=== PATIENT | female | born 1960 | race Caucasian/White ===

== ENCOUNTER 2016-10-06 15:48 | Observation (INO) | payer OTHER ==
[~2016-10-06] VITALS: Ht 167.6 cm; Wt 69.0 kg
[~2016-10-06 15:48] MED LIST: ALBU1NEB10 INH; BNT20 PO; DIGO0.122 PO; METO1TAB55 PO; NF1317 PO; PREN1CAP7 PO
[2016-10-06] MEDS ORDERED: SODIUM CHLORIDE 0.9% 1000ML 1,000 ML IV STA ×2 (15:55)
[2016-10-06] MEDS ORDERED: ONDANSETRON INJ 2 MG/ML 2 ML VIAL IV STA ×2 (15:55→17:26)
[2016-10-06] MEDS ORDERED: MoRPHine SULFATE 4 MG/ML 1 ML CARP\\VIAL IV PRN (16:00)
[2016-10-06] MEDS ORDERED: PANTOprazole INJ 40 MG in SYRINGE 0 ML IV ONE (16:00)
--- NOTE | 2016-10-06 16:14 | EMERGENCY ROOM VISIT NOTE ---
History Report prepared by [place]: Cadence Parra Under the Supervision of: Dr. Trcae Wesley D.O. 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 The patient states that she had a procedure this morning to have a port placed. The patient states that she was nervous for the procedure and initially associated her nausea with nerves. She states that then started dry heaving and has had 15-20 episodes of dry heaving today. The patient states that she then started experiencing abdominal pain and back pain. The patient states that todays symptoms feel similar to her past episodes of gastroparesis. She states her time she had gastroparesis was about 1 month ago. She denies any fever, chest pain, SOB, leg swelling or pain, or any sick family at home. 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 Review of Systems See HPI for pertinent positives & negatives. A total of 10 systems reviewed and were otherwise negative. Past Medical & Surgical Medical Problems: (1) Abdominal pain (2) Anemia, iron deficiency (3) Anemia, iron deficiency (4) Anxiety (5) Anxiety State Nos (6) Asthma (7) Chronic Obstructive Asthma, Nos (8) COPD (chronic obstructive pulmonary disease) (9) Depression (10) Diarrhea (11) Diverticulosis (12) Esophagitis Nos (13) Frequent PVCs (14) Gastroparesis (15) GERD (gastroesophageal reflux disease) (16) Hyperlipidemia Nec/Nos (17) Hypothyroidism (18) Hypothyroidism Nos (19) Iron Defic Anemia Nos (20) Mitral regurgitation (21) MRSA bacteremia (22) Nausea (23) Neuropathy (24) Pemphigus vulgaris (25) Pernicious anemia (26) Pernicious Anemia (27) Premature atrial contractions (28) Tobacco abuse Surgical Problems: (1) H/O colonoscopy (2) H/O esophagogastroduodenoscopy (3) H/O oophorectomy (4) H/O: hysterectomy (5) History of bladder surgery (6) S/P hysterectomy (7) S/P laparoscopic sleeve gastrectomy (8) S/P partial gastrectomy (9) S/P repair of paraesophageal hernia (10) S/P repair of paraesophageal hernia (11) S/P tonsillectomy and adenoidectomy (12) S/P tonsillectomy and adenoidectomy Family History Diabetes mellitus MOTHER SISTER FH: aneurysm FH: cancer FH: heart disease FATHER MOTHER Hypertension BROTHER Kidney disease Social History Smoking Status: Former Smoker Smokeless Tobacco Use: Yes Alcohol Use: occasionally Drug Use: none Marital Status: single Housing Status: lives alone Occupation Status: disabled Current/Historical Medications Scheduled Dexlansoprazole (Dexilant), 30 MG PO DAILY Digoxin (Lanoxin), 0.125 MG PO DAILY Escitalopram (Lexapro), 10 MG PO DAILY Fluticasone Prop/Salmeterol (Advair Diskus 250-50 Mcg/Dose), 1 PUFF INH BID Fosaprepitant Dimeglumine (Emend), 55 ML IV MONTHLY Levothyroxine Sodium (Levothyroxine Sodium), 75 MCG PO DAILY Metoclopramide (Reglan), 10 MG PO ACHS Mv & Min W/Fe Fumarat ( 1), 1 CAP PO DAILY Ranitidine Hcl (Zantac), 300 MG PO BID [Clindamycin Iv], 900 MG IV TODAY Scheduled PRN Albuterol Sulf (Albuterol Sulfate 0.083% For Inh), 3 ML INH Q4 PRN for Wheezing Albuterol Sulfate (Proair Hfa), 2 PUFFS IN QID PRN for SOB/Wheezing Aluminum Hydroxide-Mag Trisil (Gaviscon), 2 CAP PO TID PRN for Dyspepsia Clonazepam (Klonopin), 0.5 MG PO TID PRN for Anxiety/Agitation Dicyclomine HCl (Dicyclomine HCl), 10 MG PO BID PRN for pain Ondansetron Hcl (Zofran), 4 MG PO Q6H PRN for Nausea Oxycodone/Acetaminophen 5MG/325MG (Percocet 5MG/325MG), 2 TABLETS PO Q6H PRN for Pain Prochlorperazine Maleate (Compazine), 10 MG PO Q6H PRN for Nausea or Vomiting Allergies Coded Allergies: Amoxicillin (Verified Adverse Reaction, Intermediate, yeast infection, ) NSAIDs (Verified Adverse Reaction, Mild, indegestion, 08/23/16) Rofecoxib (Verified Adverse Reaction, Mild, indigestion, 08/23/16) Scopolamine (Verified Adverse Reaction, Mild, rash from patch, 08/23/16) Physical Exam Vital Signs Date Time Temp Pulse Resp B/P Pulse Ox O2 Delivery O2 Flow Rate FiO2 10/06/16 19:54 64 18 151/94 98 Room Air 10/06/16 18:01 69 157/98 98 Room Air 10/06/16 16:22 59 10/06/16 16:02 36.9 62 22 169/108 98 Room Air Physical Exam GENERAL: Patient is awake, alert, somewhat anxious appearing. EYES: The conjunctivae are clear. The pupils are round and reactive. EARS, NOSE, MOUTH AND THROAT: The nose is without any evidence of any deformity. Mucous membranes are moist tongue is midline NECK: The neck is nontender and supple. RESPIRATORY: Normal respiratory effort is noted there is no evidence of wheezing rhonchi or rales CARDIOVASCULAR: Regular rate and rhythm noted there no murmurs rubs or gallops normal S1 normal S2 GASTROINTESTINAL: The abdomen is soft and nondistended. There is diffuse tenderness to palpation but no guarding or rigidity. MUSCULOSKELETAL/EXTREMITIES: There is no evidence of gross deformity full range of motion is noted in the hips and shoulders SKIN: There is no obvious evidence of any rash. There are no petechiae, pallor or cyanosis noted. There is a recent port placement in the upper right chest wall, no bleeding or swelling was appreciated. NEUROLOGIC: Patient is awake alert and oriented x3. Medical Decision & Procedures ER Provider Diagnostic Interpretation: X-ray results as stated below per interpretation by me and the radiologist. PA CHEST WITH ABDOMINAL SERIES CLINICAL HISTORY: Generalized abdominal pain. FINDINGS: A PA chest radiograph is compared to study dated 08/23/2016. Correlation is made with chest CT dated 06/20/2012. A right internal jugular central venous infusion port is new from previous. The tip of the catheter projects at the level of the thoracic inlet. The cardiomediastinal silhouette is top normal for projection. There is mild atherosclerotic calcification of the thoracic aorta. Mild elevation of the right hemidiaphragm and right basilar atelectasis is unchanged, as is chronic interstitial thickening. No airspace consolidation or large pleural effusion is identified. No pneumothorax is seen. The skeletal structures are osteopenic. The bony thorax is grossly intact. Supine and erect abdominal radiograph are compared to study dated 06/27/2016 and correlated with abdominal CT dated 11/26/2015. Postoperative changes are again seen at the gastroesophageal junction. There are also cholecystectomy clips in the right upper quadrant. There is a nonobstructed abdominal bowel gas pattern. No intraperitoneal free air is seen. There is no radiographic evidence of nephrolithiasis. Numerous calcified phleboliths are seen in the pelvis. The lumbosacral spine and bony pelvis appear intact. IMPRESSION: 1. No acute cardiopulmonary abnormality. 2. A right internal jugular central venous infusion port is new from previous. 3. Nonobstructed abdominal bowel gas pattern. 4. Postoperative findings involving the stomach are unchanged from previous. Electronically signed by: Bayron Tillman M.D. 10/06/2016 5:38 PM Dictated Date/Time: 10/06/2016 5:35 PM Laboratory Results Test 10/06/16 16:17 10/06/16 17:53 Immature Granulocyte % (Auto) 0.2 % White Blood Count 8.78 K/uL (4.8-10.8) Red Blood Count 4.33 M/uL (4.2-5.4) Hemoglobin 12.7 g/dL (12.0-16.0) Hematocrit 37.0 % (37-47) Mean Corpuscular Volume 85.5 fL (80-100) Mean Corpuscular Hemoglobin 29.3 pg (25-34) Mean Corpuscular Hemoglobin Concent 34.3 g/dl (32-36) Platelet Count 224 K/uL (130-400) Mean Platelet Volume 9.9 fL (7.4-10.4) Neutrophils (%) (Auto) 84.1 % Lymphocytes (%) (Auto) 11.4 % Monocytes (%) (Auto) 4.1 % Eosinophils (%) (Auto) 0.0 % Basophils (%) (Auto) 0.2 % Neutrophils # (Auto) 7.38 K/uL (1.4-6.5) Lymphocytes # (Auto) 1.00 K/uL (1.2-3.4) Monocytes # (Auto) 0.36 K/uL (0.11-0.59) Eosinophils # (Auto) 0.00 K/uL (0-0.5) Basophils # (Auto) 0.02 K/uL (0-0.2) Immature Granulocyte # (Auto) 0.02 K/uL (0.00-0.02) Prothrombin Time 10.3 SECONDS (9.0-12.0) Prothromb Time International Ratio 1.0 (0.9-1.1) Activated Partial Thromboplast Time 23.5 SECONDS (21.0-31.0) Partial Thromboplastin Ratio 0.9 Total Bilirubin 0.5 mg/dl (0.2-1) Direct Bilirubin 0.1 mg/dl (0-0.2) Aspartate Amino Transf (AST/SGOT) 19 U/L (15-37) Alanine Aminotransferase (ALT/SGPT) 16 U/L (12-78) Alkaline Phosphatase 92 U/L (45-117) Total Creatine Kinase 86 U/L (26-192) Creatine Kinase MB 0.7 ng/ml (0.5-3.6) Creatine Kinase MB Ratio 0.8 (0-3.0) Troponin I < 0.015 ng/ml (0-0.045) Total Protein 7.0 gm/dl (6.4-8.2) Albumin 3.8 gm/dl (3.4-5.0) Lipase 123 U/L (73-393) Urine Color YELLOW Urine Appearance CLEAR (CLEAR) Urine pH 8.0 (4.5-7.5) Urine Specific [place] 1.010 (1.000-1.030) Urine Protein NEG (NEG) Urine Glucose (UA) TRACE (NEG) Urine Ketones 1+ (NEG) Urine Occult Blood NEG (NEG) Urine Nitrite NEG (NEG) Urine Bilirubin NEG (NEG) Urine Urobilinogen NEG (NEG) Urine Leukocyte Esterase NEG (NEG) Laboratory results per my review. Medications Administered Medications (Trade) Dose Ordered Sig/Marisol Route Start Time Stop Time Status Last Admin Dose Admin Ondansetron HCl (Zofran Inj) 4 mg NOW STAT IV 10/06/16 15:55 10/06/16 15:57 DC 10/06/16 16:26 4 MG Morphine Sulfate 4 mg 4 mg Q15M PRN IV 10/06/16 16:00 10/06/16 22:29 DC 10/06/16 16:28 4 MG Sodium Chloride 1,000 ml @ 999 mls/hr Q1H1M STAT IV 10/06/16 15:55 10/06/16 16:55 DC 10/06/16 16:25 999 MLS/HR Sodium Chloride 1,000 ml @ 200 mls/hr Q5H STAT IV 10/06/16 15:55 10/06/16 20:54 DC 10/06/16 15:55 200 MLS/HR Pantoprazole Sodium/Syringe (Protonix Inj/ Syringe) 10 ml @ 5 mls/min NOW ONCE IV 10/06/16 16:00 10/06/16 16:01 DC 10/06/16 16:26 5 MLS/MIN Ondansetron HCl 4 mg 4 mg NOW STAT IV 10/06/16 17:26 10/06/16 17:28 DC 10/06/16 17:35 4 MG Promethazine HCl 25 mg/Sodium Chloride 51 ml @ 204 mls/hr NOW STAT IV 10/06/16 18:51 10/06/16 19:05 DC 10/06/16 19:03 204 MLS/HR Fosaprepitant/ Sodium Chloride (Emend Inj/Nss 150ml) 150 ml @ 300 mls/hr ONE ONCE IV 10/06/16 20:30 10/06/16 20:59 DC 10/06/16 20:51 300 MLS/HR ECG Indication: nausea Rate (beats per minute): 54 Rhythm: sinus bradycardia Findings: no ectopy, other (No acute ST segment abnormalities) Comparison ECG Date: August 23, 2016 Change: no significant change ED Course 1551: The patient was evaluated in room B9. A complete history and physical examination were performed. 1555: Ordered NSS 1,000 ml @ 200 mls/hr IV, NSS 1,000 ml @ 999 mls/hr IV, Zofran Inj 4 mg IV. 1600: Ordered Pantoprazole Sodium 40 mg/Syringe 10 ml @ 5 mls/min IV, Morphine Sulfate 4 mg IV. 1726: Ordered Zofran Inj 4 mg IV. 185: Ordered Promethazine HCl 25 mg/ Sodium Chloride 51 ml @ 204 mls/hr IV 2005: I reevaluated the patient and she states she is still having no relief of her symptoms. 2026: I discussed the case with Dr. Marya Og. He agreed to evaluate the patient for further management and care. 2030: Ordered Fosaprepitant 150 mg/ Sodium Chloride 150 ml @ 300 mls/hr IV. Medical Decision Differential diagnosis: Etiologies such as gastroenteritis, food borne illness, infections, appendicitis , diverticulitis, inflammatory bowel disease, obstruction, GI bleed, biliary pathology, as well as others were entertained. Nursing notes reviewed. Patient's previous electronic medical records reviewed. The patient is a 56-year-old female who has a history of chronic gastroparesis as well as nausea. She presented to the emergency Department with the onset of what she describes as her typical nausea and abdominal pain. The patient recently had a procedure to place a port in her right chest wall also she could receive medications for gastroparesis. The surgical site was well in appearance. There was no discharge redness or swelling. She did complain of some tenderness of this area especially because of all the nausea and dry heaving. The patient was treated with IV fluids and multiple antiemetics in the emergency department. She was reevaluated multiple times. I discussed the patient's laboratory and radiographic studies with her. Because of ongoing symptoms I discussed her case with the on-call [facility] hospitalist group. They have agreed to evaluate the patient in the emergency apartment for further management and disposition. Consults Time Called: 2019 Consulting Physician: Dr. Marya Og Returned Call: 2026 I discussed the case with Dr. Marya Og. He agreed to evaluate the patient for further management and care. Impression Primary Impression: Intractable nausea and vomiting Additional Impression: Gastroparesis Scribe Attestation The scribe's documentation has been prepared under my direction and personally reviewed by me in its entirety. I confirm that the note above accurately reflects all work, treatment, procedures, and medical decision making performed by me. Departure Information Dispostion Being Evaluated By Hospitalist Referrals Jaleel Coppola M.D. (PCP) Problem Qualifiers
[2016-10-06 16:25] LABS: BASO % 0.2 %; BASO ABS # 0.02 K/uL (0-0.2); COMPLETE YES; IG% 0.2 %; LYMPH % 11.4 %; MEAN CELL VOLUME 85.5 fL (80-100); MEAN CORPUSCULAR HEMOGLOBIN 29.3 pg (25-34); MEAN CORPUSCULAR HGB CONC 34.3 g/dl (32-36); MEAN PLATELET VOLUME 9.9 fL (7.4-10.4); MONO % 4.1 %; NEUT % 84.1 %; PLATELET COUNT 224 K/uL (130-400); RED BLOOD COUNT 4.33 M/uL (4.2-5.4); WHITE BLOOD COUNT 8.78 K/uL (4.8-10.8)
[2016-10-06 16:42] LABS: ALT/SGPT 16 U/L (12-78); BLOOD UREA NITROGEN 12 mg/dl (7-18); BUN/CREATININE RATIO 12.2 (10-20); CARBON DIOXIDE 23 mmol/L (21-32); CHLORIDE 105 mmol/L (98-107); CREATININE 0.99 mg/dl (0.60-1.20); GLUCOSE 124 mg/dl (70-99); PARTIAL THROMBOPLASTIN RATIO 0.9; POTASSIUM 3.8 mmol/L (3.5-5.1); PROTHROMBIN TIME (PATIENT) 10.3 SECONDS (9.0-12.0); SODIUM 141 mmol/L (136-145)
[2016-10-06 16:47] LABS: ALKALINE PHOSPHATASE 92 U/L (45-117); AST/SGOT 19 U/L (15-37); CKMB/CK RATIO 0.8 (0-3.0)
[2016-10-06] MEDS ORDERED: CLINDAMYCIN (16:48)
--- NOTE | 2016-10-06 17:40 | DIAGNOSTIC IMAGING REPORT ---
PA CHEST WITH ABDOMINAL SERIES CLINICAL HISTORY: Generalized abdominal pain. FINDINGS: A PA chest radiograph is compared to study dated 08/23/2016. Correlation is made with chest CT dated 06/20/2012. A right internal jugular central venous infusion port is new from previous. The tip of the catheter projects at the level of the thoracic inlet. The cardiomediastinal silhouette is top normal for projection. There is mild atherosclerotic calcification of the thoracic aorta. Mild elevation of the right hemidiaphragm and right basilar atelectasis is unchanged, as is chronic interstitial thickening. No airspace consolidation or large pleural effusion is identified. No pneumothorax is seen. The skeletal structures are osteopenic. The bony thorax is grossly intact. Supine and erect abdominal radiograph are compared to study dated 06/27/2016 and correlated with abdominal CT dated 11/26/2015. Postoperative changes are again seen at the gastroesophageal junction. There are also cholecystectomy clips in the right upper quadrant. There is a nonobstructed abdominal bowel gas pattern. No intraperitoneal free air is seen. There is no radiographic evidence of nephrolithiasis. Numerous calcified phleboliths are seen in the pelvis. The lumbosacral spine and bony pelvis appear intact. IMPRESSION: 1. No acute cardiopulmonary abnormality. 2. A right internal jugular central venous infusion port is new from previous. 3. Nonobstructed abdominal bowel gas pattern. 4. Postoperative findings involving the stomach are unchanged from previous. Electronically signed by: Bayron Tilmlan M.D. 10/06/2016 5:38 PM Dictated Date/Time: 10/06/2016 5:35 PM
[2016-10-06 18:10] LABS: URINE APPEARANCE CLEAR (CLEAR); URINE BILIRUBIN NEG (NEG); URINE COLOR YELLOW; URINE NITRITE NEG (NEG); UROBILINOGEN NEG (NEG)
[2016-10-06 18:18] LABS: MANUAL MICROSCOPIC REQUIRED? NO; REVIEW REQ? NO
[2016-10-06] MEDS ORDERED: PROMETHAZINE HCL INJ 25 MG in SODIUM CHLORIDE 0.9% 50ML 50 ML IV STA (18:51)
[2016-10-06] MEDS ORDERED: ALBU1AER9 IN (19:20)
[2016-10-06] MEDS ORDERED: FOSAPREPITANT DIMEGLUMINE INJ 150 MG in SODIUM CHLORIDE 0.9% 150ML 145 ML IV ONE (20:30)
[2016-10-06] MEDS ORDERED: ENOXAPARIN 40 MG/0.4 ML SYR SQ SCH (21:00)
[2016-10-06] MEDS ORDERED: ACETAMINOPHEN 325 MG TAB PO PRN (21:00)
[2016-10-06] MEDS ORDERED: POLYETHYLENE (MIRALAX) 17 GM PACK PO PRN (21:00)
[2016-10-06] MEDS ORDERED: MAGNESIUM HYDROXIDE SUSP 30 ML UDC PO PRN (21:00)
[2016-10-06] MEDS ORDERED: ALBUTEROL 0.083% NEBU SOLN 3 ML VIAL INH PRN (21:15)
[2016-10-06] MEDS ORDERED: IV FLUIDS COMPLETED PRN (21:15)
[2016-10-06] MEDS ORDERED: CLONAZEPAM 0.5 MG TAB PO PRN (21:15)
[2016-10-06] MEDS ORDERED: OXYCODONE/ACETAMINOPHEN 5-325 TAB PO PRN (21:15)
[2016-10-06] MEDS ORDERED: ALUM HYDROX/MAG TRISILICATE CHEW PO PRN (21:15)
[2016-10-06] MEDS ORDERED: ALBUTEROL HFA 8 GM INHALER INH PRN (21:15)
[2016-10-06] MEDS ORDERED: DICYCLOMINE HCL 10 MG CAP PO PRN (21:15)
--- NOTE | 2016-10-06 21:22 | History and Physical ---
History & Physical Date & Time of Service: Oct 06, 2016 at 21:07 Chief Complaint: Abd Pain Primary Care Physician: Jaleel Coppola M.D. History of Present Illness Source: patient, clinic records, hospital records Patient seen and examined. 56 year old female with PMHx of gastroparesis, dumping syndrome, COPD, depression and other problems listed below presents to the ED complaining of nausea x 1 day. Patient reports she woke up this morning with nausea. She states she then had a port placed for monthly Emend infusion. She states after the procedure her nausea continued and she started having dry heaving. She took her zofran at home but this did not alleviate the symptoms. She has associated epigastric abdominal pain with radiation to the back that she describes as a dull ache and rates as a 5/10. She states that these symptoms are similar to her previous gastroparesis flares. She denies fevers, chills, URI symptoms, chest pain, SOB, diarrhea, dysuria, calf pain and edema. In the ED VS are stable, CBC, PRP, LFTs, Lipase and UA are essentially unremarkable, KUB is negative for obstruction. She received zofran and phenegran with minimal relief. Emend is currently infusing. She will be observed for further workup and treatment. Past Medical/Surgical History Medical Problems: (1) Anemia, iron deficiency Status: Chronic (2) Anxiety Status: Chronic (3) Anxiety State Nos Status: Chronic (4) Asthma Status: Chronic (5) Chronic Obstructive Asthma, Nos Status: Chronic (6) COPD (chronic obstructive pulmonary disease) Status: Chronic (7) Depression Status: Chronic (8) Diverticulosis Status: Chronic (9) Esophagitis Nos Status: Chronic (10) Frequent PVCs Status: Chronic (11) Gastroparesis Status: Chronic (12) GERD (gastroesophageal reflux disease) Status: Chronic (13) Hyperlipidemia Nec/Nos Status: Chronic (14) Hypothyroidism Status: Chronic (15) Hypothyroidism Nos Status: Chronic (16) Iron Defic Anemia Nos Status: Chronic (17) Mitral regurgitation Permanent Comment: moderate per echo 09/21/15 Status: Chronic (18) MRSA bacteremia Status: Resolved (19) Neuropathy Status: Chronic (20) Pemphigus vulgaris Status: Chronic (21) Pernicious anemia Status: Chronic (22) Pernicious Anemia Status: Chronic (23) Premature atrial contractions Status: Chronic (24) Tobacco abuse Status: Chronic Surgical Problems: (1) H/O colonoscopy Permanent Comment: 08/14/2013- Moderate diverticulosis in the sigmoid colon, in the descending colon and in the ascending colon. Internal hemorrhoids. Normal mucosa in the entire examined colon. Biopsied. Status: Chronic (2) H/O esophagogastroduodenoscopy Permanent Comment: 04/22/2015- - Stretta treatment to distal esophagus / GE junction and cardia.Three surgical logan were found in the esophagus at the GE junction and removed. Surgical suture was also found at the GE junction without evidence of dehiscence. Grade B GERD / erosive esophagitis. Sleeve gastrectomy with a large-sized pouch, intact staple line, post-operative mucosal scar, and evidence f pyloroplasty. Small gastric polyp, likely hyperplastic vs fundic gland polyp. Small hiatus hernia. Status: Chronic (3) H/O oophorectomy Permanent Comment: left ovary Status: Chronic (4) H/O: hysterectomy Status: Resolved (5) History of bladder surgery Status: Chronic (6) S/P hysterectomy Status: Chronic (7) S/P laparoscopic sleeve gastrectomy Status: Chronic (8) S/P partial gastrectomy Status: Chronic (9) S/P repair of paraesophageal hernia Status: Chronic (10) S/P repair of paraesophageal hernia Permanent Comment: resulted in volvulus, required abdominal exploration Status: Chronic (11) S/P tonsillectomy and adenoidectomy Status: Resolved (12) S/P tonsillectomy and adenoidectomy Status: Chronic Family History Diabetes mellitus MOTHER SISTER FH: aneurysm FH: cancer FH: heart disease FATHER MOTHER Hypertension BROTHER Kidney disease Social History Smoking Status: Former Smoker Smokeless Tobacco Use: Yes Drug Use: none Marital Status: single Housing status: lives with family Occupational Status: disabled Immunizations History of Influenza Vaccine: Yes History of Tetanus Vaccine?: Unknown History of Pneumococcal: Unknown History of Hepatitis B Vaccine: Unknown Multi-Drug Resistant Organisms History of MDRO: Yes Type of MDRO: MRSA Allergies Coded Allergies: Amoxicillin (Verified Adverse Reaction, Intermediate, yeast infection, ) NSAIDs (Verified Adverse Reaction, Mild, indegestion, 08/23/16) Rofecoxib (Verified Adverse Reaction, Mild, indigestion, 08/23/16) Scopolamine (Verified Adverse Reaction, Mild, rash from patch, 08/23/16) Home Medications Scheduled Dexlansoprazole (Dexilant), 30 MG PO DAILY Digoxin (Lanoxin), 0.125 MG PO DAILY Escitalopram (Lexapro), 10 MG PO DAILY Fluticasone Prop/Salmeterol (Advair Diskus 250-50 Mcg/Dose), 1 PUFF INH BID Fosaprepitant Dimeglumine (Emend), 55 ML IV MONTHLY Levothyroxine Sodium (Levothyroxine Sodium), 75 MCG PO DAILY Metoclopramide (Reglan), 10 MG PO ACHS Mv & Min W/Fe Fumarat ( 1), 1 CAP PO DAILY Ranitidine Hcl (Zantac), 300 MG PO BID [Clindamycin Iv], 900 MG IV TODAY Scheduled PRN Albuterol Sulf (Albuterol Sulfate 0.083% For Inh), 3 ML INH Q4 PRN for Wheezing Albuterol Sulfate (Proair Hfa), 2 PUFFS IN QID PRN for SOB/Wheezing Aluminum Hydroxide-Mag Trisil (Gaviscon), 2 CAP PO TID PRN for Dyspepsia Clonazepam (Klonopin), 0.5 MG PO TID PRN for Anxiety/Agitation Dicyclomine HCl (Dicyclomine HCl), 10 MG PO BID PRN for pain Ondansetron Hcl (Zofran), 4 MG PO Q6H PRN for Nausea Oxycodone/Acetaminophen 5MG/325MG (Percocet 5MG/325MG), 2 TABLETS PO Q6H PRN for Pain Prochlorperazine Maleate (Compazine), 10 MG PO Q6H PRN for Nausea or Vomiting Review of Systems See above for pertinent positives & negatives. A total of 10 systems reviewed and were otherwise negative. Physical Exam Vital Signs Date Time Temp Pulse Resp B/P Pulse Ox O2 Delivery O2 Flow Rate FiO2 10/06/16 19:54 64 18 151/94 98 Room Air 10/06/16 18:01 69 157/98 98 Room Air 10/06/16 16:22 59 10/06/16 16:02 36.9 62 22 169/108 98 Room Air General Appearance: + pertinent finding (Chronically ill appearing 56 year old female lying in bed in NAD ) Head: normocephalic, atraumatic Eyes: PERRL, EOMI, sclerae normal ENT: hearing grossly normal, pharynx normal Neck: supple, no JVD, trachea midline Respiratory/Chest: chest non-tender, lungs clear, normal breath sounds, no respiratory distress, no accessory muscle use Cardiovascular: regular rate, rhythm, no edema, no gallop, no JVD, normal peripheral pulses, + systolic murmur Abdomen/GI: normal bowel sounds, non tender (no guarding, no rigidity ), soft, no organomegaly Back: normal inspection, no CVA tenderness, no muscle spasm Extremities/Musculoskelatal: no calf tenderness, normal capillary refill, no pedal edema Neurologic/Psych: alert, oriented x 3, + pertinent finding (no motor or sensory deficits noted on gross exam ) Skin: normal color, warm/dry, no rash Lymphatic: no adenopathy Diagnostics Laboratory Results Results Past 24 Hours Test 10/06/16 16:17 10/06/16 17:53 10/06/16 20:57 10/06/16 21:01 Range/Units White Blood Count 8.78 4.8-10.8 K/uL Red Blood Count 4.33 4.2-5.4 M/uL Hemoglobin 12.7 12.0-16.0 g/dL Hematocrit 37.0 37-47 % Mean Corpuscular Volume 85.5 80-100 fL Mean Corpuscular Hemoglobin 29.3 25-34 pg Mean Corpuscular Hemoglobin Concent 34.3 32-36 g/dl Platelet Count 224 130-400 K/uL Mean Platelet Volume 9.9 7.4-10.4 fL Neutrophils (%) (Auto) 84.1 % Lymphocytes (%) (Auto) 11.4 % Monocytes (%) (Auto) 4.1 % Eosinophils (%) (Auto) 0.0 % Basophils (%) (Auto) 0.2 % Neutrophils # (Auto) 7.38 1.4-6.5 K/uL Lymphocytes # (Auto) 1.00 1.2-3.4 K/uL Monocytes # (Auto) 0.36 0.11-0.59 K/uL Eosinophils # (Auto) 0.00 0-0.5 K/uL Basophils # (Auto) 0.02 0-0.2 K/uL RDW Standard Deviation 49.6 36.4-46.3 fL RDW Coefficient of Variation 15.7 11.5-14.5 % Immature Granulocyte % (Auto) 0.2 % Immature Granulocyte # (Auto) 0.02 0.00-0.02 K/uL Prothrombin Time 10.3 9.0-12.0 SECONDS Prothromb Time International Ratio 1.0 0.9-1.1 Activated Partial Thromboplast Time 23.5 21.0-31.0 SECONDS Partial Thromboplastin Ratio 0.9 Sodium Level 141 136-145 mmol/L Potassium Level 3.8 3.5-5.1 mmol/L Chloride Level 105 98-107 mmol/L Carbon Dioxide Level 23 21-32 mmol/L Anion Gap 13.0 3-11 mmol/L Blood Urea Nitrogen 12 7-18 mg/dl Creatinine 0.99 0.60-1.20 mg/dl Est Creatinine Clear Calc Drug Dose 56.9 ml/min Estimated GFR () 72.8 Estimated GFR (Non- 62.8 BUN/Creatinine Ratio 12.2 10-20 Random Glucose 124 70-99 mg/dl Calcium Level 9.0 8.5-10.1 mg/dl Total Bilirubin 0.5 0.2-1 mg/dl Direct Bilirubin 0.1 0-0.2 mg/dl Aspartate Amino Transf (AST/SGOT) 19 15-37 U/L Alanine Aminotransferase (ALT/SGPT) 16 12-78 U/L Alkaline Phosphatase 92 45-117 U/L Total Creatine Kinase 86 26-192 U/L Creatine Kinase MB 0.7 0.5-3.6 ng/ml Creatine Kinase MB Ratio 0.8 0-3.0 Troponin I < 0.015 0-0.045 ng/ml Total Protein 7.0 6.4-8.2 gm/dl Albumin 3.8 3.4-5.0 gm/dl Lipase 123 73-393 U/L Urine Color YELLOW Urine Appearance CLEAR CLEAR Urine pH 8.0 4.5-7.5 Urine Specific [place] 1.010 1.000-1.030 Urine Protein NEG NEG Urine Glucose (UA) TRACE NEG Urine Ketones 1+ NEG Urine Occult Blood NEG NEG Urine Nitrite NEG NEG Urine Bilirubin NEG NEG Urine Urobilinogen NEG NEG Urine Leukocyte Esterase NEG NEG Diagnostic Radiology KUB/CXR PEr radiologist read: IMPRESSION: 1. No acute cardiopulmonary abnormality. 2. A right internal jugular central venous infusion port is new from previous. 3. Nonobstructed abdominal bowel gas pattern. 4. Postoperative findings involving the stomach are unchanged from previous. EKG Sinus Bradycardia 54 BPM, QTc 421 Impression Assessment and Plan 56 year old female presents to the ED complaining of nausea, dry heaves. Has history of gastroparesis, dumping syndrome, IBS. INTRACTABLE NAUSEA, ABDOMINAL PAIN, DRY HEAVES- known gastroparesis, dumping syndrome -Observation in Med/Surg -had port placed today for monthly Emend infusion -workup in ED essentially negative, LFTs, lipase, UA unremarkable, no leukocytosis -received Zofran, Phenergan, with minimal relief -Emend infusion ordered -continue zofran, phenegran, if symptoms persist following emend infusion, consider IV Ativan, Benadryl and other antiemetics -continue outpatient Reglan, dicyclomine, compazine -continue PPI -Clear liquid diet, advance as tolerated -IVF hydration- discontinue when po intake improved -CBC, PRP, Mg daily -If symptoms persist consider GI consult, follows with Dr. Ridley -Patient states she is on Zantac 300mg BID as and outpatient - pharmacy called that this is over the max manufacture dose and could be contributing to some of the patient's symptoms. Zantac decreased to 150mg BID, tonight defer further changes to daytime attending. HYPOTHYROIDISM -continue Synthroid COPD -stable -continue home inhalers DEPRESSION -continue Lexapro, Klonopin TOBACCO ABUSE -Cessation counseling given -Nicotine patch ordered H/O PVCs/PACs -check digoxin level -continue Digoxin DVT PROPHYLAXIS: SCDs RE: port procedure today, if prolonged hospital course consider anticoagulation CODE STATUS: FULL CODE DISPO:observation pending further workup Patient seen in collaboration with Dr. Malhotra The Attending Addendum: The patient was seen and examined in ER H/O Gastroparesis secondary to Diabetes Has had Port to administer Amend to prevent Nausea and or Vomiting Ongoing Nausea and vomiting-not controlled with Usual medications Complains of some abdominal pain O/E Hemodynamically stable Chest-clear to auscultate bilaterally Heart-regular Abdomen-soft,mildly tender epigastrium Bowel sound present Extremities -negative for any edema Labs and Imaging studies were reviewed Agree with the assessment and plan. Dr Karla Malhotra VTE Prophylaxis VTE Risk Assessment Done? Y/N: Yes Risk Level: Moderate
[2016-10-06 22:30] VITALS: BP 156/92; PULSE 64; TEMP 36.7; O2SAT 96
[2016-10-06 22:31] VITALS: BP 156/92; PULSE 64; TEMP 36.7; O2SAT 96; Ht 167.6 cm; Wt 69.0 kg
[2016-10-06] MEDS: SODIUM CHLORIDE 0.9% 1000ML 1,000 ML IV SCH (23:10)
[2016-10-06] MEDS: ONDANSETRON INJ 2 MG/ML 2 ML VIAL IV PRN (23:35)
[2016-10-07 00:01] VITALS: BP 140/88; PULSE 65; TEMP 36.7; O2SAT 97
[2016-10-07] MEDS: PROCHLORPERAZINE MALEATE 10 MG TAB PO PRN ×2 (00:24→07:49)
[2016-10-07] MEDS: PROMETHAZINE HCL INJ 25 MG in SODIUM CHLORIDE 0.9% 50ML 50 ML IV PRN ×3 (01:46→18:34)
[2016-10-07] MEDS: METOCLOPRAMIDE HCL 10 MG TAB PO SCH ×4 (05:59→20:18)
[2016-10-07] MEDS: SODIUM CHLORIDE 0.9% 1000ML 1,000 ML IV SCH ×3 (06:00→20:20)
[2016-10-07] MEDS: ONDANSETRON INJ 2 MG/ML 2 ML VIAL IV PRN (07:24)
[2016-10-07 07:33] VITALS: BP 121/81; PULSE 64; TEMP 36.8; O2SAT 96
[2016-10-07] MEDS: ALUMINUM/MAGNESIUM/SIMETH (MAALOX MAX) 30 ML UDC PO PRN ×2 (07:47→23:24)
[2016-10-07] MEDS: PANTOprazole SOD 40 MG TAB PO SCH (07:48)
[2016-10-07] MEDS: RANITIDINE HCL 150 MG TAB PO SCH ×2 (07:48→20:18)
[2016-10-07] MEDS: NICOTINE 14 MG/24 HR TDSY TD SCH (07:51)
[2016-10-07] MEDS: FLUTICASONE/SALMETEROL 250/50 (ADVAIR) 14 PUFF/1 INHALER INH SCH ×2 (07:51→20:00)
[2016-10-07] MEDS: ESCITALOPRAM OXALATE 10 MG TAB PO SCH (08:00)
[2016-10-07] MEDS: PRENATAL VITAMIN TAB PO SCH (08:00)
[2016-10-07] MEDS: LEVOTHYROXINE 75 MCG TAB PO SCH (08:00)
[2016-10-07] MEDS ORDERED: RANITIDINE HCL 150 MG TAB PO SCH (09:00)
[2016-10-07 09:01] LABS: HEMATOCRIT 37.5 % (37-47); MEAN CELL VOLUME 85.8 fL (80-100); MEAN CORPUSCULAR HEMOGLOBIN 29.3 pg (25-34); MEAN CORPUSCULAR HGB CONC 34.1 g/dl (32-36); MEAN PLATELET VOLUME 10.1 fL (7.4-10.4); PLATELET COUNT 237 K/uL (130-400); RED BLOOD COUNT 4.37 M/uL (4.2-5.4); WHITE BLOOD COUNT 8.09 K/uL (4.8-10.8)
[2016-10-07 09:25] LABS: BUN/CREATININE RATIO 8.7 (10-20); CALCIUM 8.8 mg/dl (8.5-10.1); CREATININE 0.82 mg/dl (0.60-1.20); MAGNESIUM 1.9 mg/dl (1.8-2.4); POTASSIUM 3.6 mmol/L (3.5-5.1)
[2016-10-07 15:45] VITALS: BP 155/97; PULSE 66; TEMP 37.1; O2SAT 98
[2016-10-07 16:00] VITALS: O2SAT 98
[2016-10-07] MEDS: DIGOXIN 0.125 MG TAB PO SCH (17:15)
--- NOTE | 2016-10-07 18:01 | Progress Note ---
Internal Med Progress Note Date of Service: Oct 07, 2016. Provider Documentation: SUBJECTIVE: still very nauseous having dry heaves , no vomiting no abdominal pain or diarrhea OBJECTIVE: Vital Signs-as noted below Exam: General-in distress , due to nausea Eyes-sclera non icteric ENT-moist oral mucosa Neck-trachea midline, no thyromegaly Lungs-CTA, no wheeze or rales Heart-regular S1/s2 Abdomen-soft ,non tender Extremities-rt ant chest wall port placement site intact , no swelling, no erythema Neuro-no focal neurological deficit Lab data as noted below. ASSESSMENT & PLAN: INTRACTABLE NAUSEA, ABDOMINAL PAIN, DRY HEAVES- known gastroparesis, dumping syndrome -s/p port placement for monthly IV Emend infusion - -received Zofran, Phenergan, with minimal relief -Emend infusion ordered -continue zofran, phenegran PRN -pt is continued outpatient Reglan, dicyclomine, compazine -continue PPI -on Clear liquid diet-still very nauseous , poor appetite - will re evaluate pt tomorrow and advance diet as tolerated -cont IVF hydration- discontinue when po intake improved -GI eval requested, pt is known to [facility] GI service HYPOTHYROIDISM -continue Synthroid COPD -stable -continue home inhalers DEPRESSION -continue Lexapro, Klonopin TOBACCO ABUSE -Cessation counseling given -Nicotine patch ordered H/O PVCs/PACs -continue Digoxin DVT PROPHYLAXIS: SCDs ambulate if prolonged hospital course consider anticoagulation CODE STATUS: FULL CODE DISPOSITION Discharge home when GI symptom improves , pt able to tolerate diet Vital Signs: Date Time Temp Pulse Resp B/P Pulse Ox O2 Delivery O2 Flow Rate FiO2 10/07/16 17:15 66 10/07/16 15:45 37.1 66 18 155/97 98 Room Air 10/07/16 08:00 Room Air 10/07/16 07:33 36.8 64 16 121/81 96 Room Air 10/07/16 00:01 36.7 65 20 140/88 97 Room Air 10/07/16 00:00 Room Air 10/06/16 22:31 36.7 64 18 156/92 96 Room Air 10/06/16 22:30 36.7 64 18 156/92 96 Room Air 10/06/16 21:47 70 20 147/98 97 Room Air 10/06/16 19:54 64 18 151/94 98 Room Air Lab Results: Results Past 24 Hours Test 10/06/16 21:43 10/07/16 08:01 Range/Units Digoxin Level 0.8 0.8-2.0 ng/ml White Blood Count 8.09 4.8-10.8 K/uL Red Blood Count 4.37 4.2-5.4 M/uL Hemoglobin 12.8 12.0-16.0 g/dL Hematocrit 37.5 37-47 % Mean Corpuscular Volume 85.8 80-100 fL Mean Corpuscular Hemoglobin 29.3 25-34 pg Mean Corpuscular Hemoglobin Concent 34.1 32-36 g/dl RDW Standard Deviation 48.6 36.4-46.3 fL RDW Coefficient of Variation 15.6 11.5-14.5 % Platelet Count 237 130-400 K/uL Mean Platelet Volume 10.1 7.4-10.4 fL Sodium Level 140 136-145 mmol/L Potassium Level 3.6 3.5-5.1 mmol/L Chloride Level 104 98-107 mmol/L Carbon Dioxide Level 23 21-32 mmol/L Anion Gap 13.0 3-11 mmol/L Blood Urea Nitrogen 7 7-18 mg/dl Creatinine 0.82 0.60-1.20 mg/dl Est Creatinine Clear Calc Drug Dose 70.0 ml/min Estimated GFR () 91.4 Estimated GFR (Non- 78.9 BUN/Creatinine Ratio 8.7 10-20 Random Glucose 101 70-99 mg/dl Calcium Level 8.8 8.5-10.1 mg/dl Magnesium Level 1.9 1.8-2.4 mg/dl
[2016-10-07 20:00] VITALS: O2SAT 98
[2016-10-07 23:41] VITALS: BP 156/91; PULSE 73; TEMP 37.4; O2SAT 96
[2016-10-08] MEDS: ONDANSETRON INJ 2 MG/ML 2 ML VIAL IV PRN ×2 (01:43→08:10)
[2016-10-08] MEDS: SODIUM CHLORIDE 0.9% 1000ML 1,000 ML IV SCH ×2 (04:46→12:31)
[2016-10-08] MEDS: METOCLOPRAMIDE HCL 10 MG TAB PO SCH ×4 (06:24→20:29)
[2016-10-08] MEDS: ALUMINUM/MAGNESIUM/SIMETH (MAALOX MAX) 30 ML UDC PO PRN (06:36)
[2016-10-08 07:52] VITALS: BP 136/93; PULSE 66; TEMP 36.9; O2SAT 98
[2016-10-08] MEDS: NICOTINE 14 MG/24 HR TDSY TD SCH (08:00)
[2016-10-08] MEDS: RANITIDINE HCL 150 MG TAB PO SCH ×2 (08:13→20:29)
[2016-10-08] MEDS: FLUTICASONE/SALMETEROL 250/50 (ADVAIR) 14 PUFF/1 INHALER INH SCH ×2 (08:14→20:29)
[2016-10-08] MEDS: ESCITALOPRAM OXALATE 10 MG TAB PO SCH (08:14)
[2016-10-08] MEDS: PRENATAL VITAMIN TAB PO SCH (08:15)
[2016-10-08] MEDS: LEVOTHYROXINE 75 MCG TAB PO SCH (08:15)
[2016-10-08] MEDS: PANTOprazole SOD 40 MG TAB PO SCH (08:15)
[2016-10-08] MEDS: PROCHLORPERAZINE MALEATE 10 MG TAB PO PRN ×2 (08:16→15:45)
[2016-10-08] MEDS: PROMETHAZINE HCL INJ 25 MG in SODIUM CHLORIDE 0.9% 50ML 50 ML IV PRN (10:17)
--- NOTE | 2016-10-08 14:11 | GASTROINTESTINAL CONSULTATION ---
DATE OF CONSULTATION: 10/08/2016 REQUESTING PHYSICIAN: Dr. Mohr. CHIEF COMPLAINT: Nausea. HISTORY OF PRESENT ILLNESS: The patient is a 56-year-old female with a past medical history notable for gastroparesis, dumping syndrome, COPD who presented to the Emergency Room 48 hours ago for evaluation of progressive nausea and vomiting. The patient has a long history of gastroparesis which is related to prior urgent repair of a paraesophageal hernia and sleeve gastrectomy. The patient has had symptoms on and off for approximately 4 years since his surgical procedure. The patient has had numerous hospital admissions and was referred for a port placement due to progressive difficulty with IV access. The patient reports undergoing an elective procedure on Sunday after which she developed worsening nausea and vomiting. The patient notes that her symptoms seem to be improving slightly today as she was given a dose of Emend last evening which seems to alleviate her symptoms. She denies having fevers, chills, sweats or abdominal pain. She does note having frequent alterations of bowel habits, sometimes having problems with constipation and other times having problems with diarrhea and it is felt to have gastric dumping syndrome. PAST MEDICAL HISTORY: 1. Anemia. 2. Anxiety. 3. Asthma. 4. COPD. 5. Depression. 6. Diverticulosis of the colon. 7. Gastroesophageal reflux disease. 8. Gastroparesis. 9. Hypercholesterolemia. 10. Hypothyroidism. 11. Mitral regurgitation. OUTPATIENT MEDICATIONS: 1. Dexilant 30 mg daily. 2. Digoxin 0.125 mg daily. 3. Lexapro 10 mg daily. 4. Emend 55 mg monthly. 5. Levothyroxine 75 mcg daily. 6. Reglan 10 mg at bedtime. 7. vitamin. 8. Ranitidine 300 mg twice daily. ALLERGIES: AMOXICILLIN, NONSTEROIDALS, CELEBREX AND SCOPOLAMINE. SOCIAL HISTORY: The patient is a prior smoker but has quit for many years. The patient denies alcohol use. Lives at home with family. FAMILY HISTORY: Mother and sister with history of diabetes, heart disease noted in mother and father, hypertension noted in brother. PAST SURGICAL HISTORY: 1. Hysterectomy: 2. Oophorectomy. 3. Bladder surgery, unclear of type. 4. Sleeve gastrectomy with repair of paraesophageal hernia. 5. Tonsillectomy. 6. EGD in 2014. 7. Colonoscopy 2012 notable for diverticulosis of the colon, and internal hemorrhoids. REVIEW OF SYSTEMS: GENERAL: No fevers, no chills. CARDIAC: No chest pain, no palpitations. PULMONARY: No shortness of breath today. No cough above baseline. DERMATOLOGIC: No rashes. No itching. NEUROLOGIC: No confusion noted by patient. MUSCULOSKELETAL: No new joint pains or muscle pains. GASTROINTESTINAL: Please see history of present illness. GENITOURINARY: No dysuria noted by patient. PSYCHIATRIC: No depression. Above baseline today. ENDOCRINE: No polyuria, no polydipsia noted. PHYSICAL EXAMINATION: GENERAL: The patient is a pleasant-appearing female in no obvious distress. HEENT: No scleral icterus noted. LUNGS: Clear to auscultation. CARDIAC: Regular rhythm with a systolic murmur heard. SKIN: No rashes noted. NEUROLOGIC: Cranial nerves grossly intact. Motor grossly intact. No asterixis noted. ABDOMEN: Soft, nontender. No hepatosplenomegaly appreciated. EXTREMITIES: No edema noted. LABS: White blood cell count 8.09, hemoglobin 12.8, hematocrit 37.5, platelet count is 237. PT 10.3, INR 1.0. Sodium 140, potassium 3.6, chloride is 104, BUN 7, creatinine is 0.82. Calcium is 8.8. AST 19, ALT 16, total bilirubin 0.5, alkaline phosphatase 92, albumin 3.8. Lipase 123. Digoxin level 0.8 upon admission. Imaging notable for a chest and abdominal x-ray on 10/06/2016, no acute abnormalities noted. Gastric emptying study from 2014 notable for delayed gastric emptying at a 4 hour time interval of approximately 24%. IMPRESSION: A 56-year-old female presented with acute worsening of nausea and vomiting after recent surgical procedure. Suspect that this is related to the patient's underlying gastroparesis and results from anesthesia. Would recommend a dose of Emend as was done yesterday. As the patient does have some residual symptoms, we could consider use of erythromycin for the next 2 days. In addition, I would recommend discontinuation of the Lexapro as this can cause nausea in patients. RECOMMENDATIONS: 1. Discontinue Lexapro. 2. Erythromycin. 3. Continue with full liquid diet. 4. Please call with any questions or concerns.
--- NOTE | 2016-10-08 15:28 | Discharge Instructions ---
Discharge Instructions Admission Reason for Admission: Epigastric Abdominal Pain, Nausea Discharge Discharge Diagnosis / Problem: GASTROPAREIS /INTRACTABLE NAUSEA /VOMITING Discharge Goals Goal(s): Improve disease control Activity Recommendations Activity Limitations: resume your previous activity . Instructions / Follow-Up Instructions / Follow-Up HOSPITAL FOLLOW UP WITH DR BELL IN A WEEK , OFFICE WILL CALL WITH APPOINTMENT GI FOLLOW UP PER SCHEDULE Current Hospital Diet Patient's current hospital diet: Clear Liquid Diet Discharge Diet Recommended Diet: Low Fiber Diet Pending Studies Studies pending at discharge: no Medical Emergencies . Who to Call and When: Medical Emergencies: If at any time you feel your situation is an emergency, please call 911 immediately. . Non-Emergent Contact Non-Emergency issues call your: Primary Care Provider . . "Provider Documentation" section prepared by Theodora Mohr. VTE Core Measure Inpt VTE Proph given/why not?: Beto Price, SCD's
[2016-10-08] MEDS ORDERED: ERYC250 PO (15:30)
[2016-10-08] MEDS: DIGOXIN 0.125 MG TAB PO SCH (15:48)
[2016-10-08 16:13] VITALS: BP 157/92; PULSE 63; TEMP 37.2; O2SAT 97
--- NOTE | 2016-10-08 16:46 | Progress Note ---
Internal Med Progress Note Date of Service: Oct 08, 2016. Provider Documentation: SUBJECTIVE: feels much better no vomiting had some dry heaves earlier no abdominal pain feels hungry , OK to try solid food OBJECTIVE: Vital Signs-as noted below Exam: General-in distress , due to nausea Eyes-sclera non icteric ENT-moist oral mucosa Neck-trachea midline, no thyromegaly Lungs-CTA, no wheeze or rales Heart-regular S1/s2 Abdomen-soft ,non tender Extremities-rt ant chest wall port placement site intact , no swelling, no erythema Neuro-no focal neurological deficit Lab data as noted below. ASSESSMENT & PLAN: INTRACTABLE NAUSEA, ABDOMINAL PAIN, DRY HEAVES- known gastroparesis, dumping syndrome -symptom has started to improve will advance diet to low residue -s/p port placement for monthly IV Emend infusion -GI eval requested, pt is known to [facility] GI service -appreciate input -PO Erythromycin ordered as Prokinetic D/c IVF as able to tolerate PO ' -plan to discharge home tomorrow if continues to do well HYPOTHYROIDISM -continue Synthroid COPD -stable -continue home inhalers DEPRESSION -continue Lexapro, Klonopin TOBACCO ABUSE -Cessation counseling given -Nicotine patch ordered H/O PVCs/PACs -continue Digoxin DVT PROPHYLAXIS: SCDs ambulate if prolonged hospital course consider anticoagulation CODE STATUS: FULL CODE DISPOSITION possible Discharge home tomorrow 10/09/16 -as GI symptom improves , pt able to tolerate diet Vital Signs: Date Time Temp Pulse Resp B/P Pulse Ox O2 Delivery O2 Flow Rate FiO2 10/08/16 16:13 37.2 63 18 157/92 97 Room Air 10/08/16 15:48 72 10/08/16 08:00 Room Air 10/08/16 07:52 36.9 66 16 136/93 98 Room Air 10/08/16 00:00 Room Air 10/07/16 23:41 37.4 73 16 156/91 96 Room Air 10/07/16 20:00 98 Room Air 10/07/16 17:15 66
[2016-10-08] MEDS: ERYTHROMYCIN DELAYED RELEASE 250 MG CAP PO SCH ×2 (18:09→20:29)
[2016-10-09 00:10] VITALS: BP 94/60; PULSE 59; TEMP 36.8; O2SAT 96
[2016-10-09 00:36] VITALS: BP 118/68
[2016-10-09] MEDS: ALUMINUM/MAGNESIUM/SIMETH (MAALOX MAX) 30 ML UDC PO PRN (02:13)
[2016-10-09] MEDS: PROCHLORPERAZINE MALEATE 10 MG TAB PO PRN (03:39)
[2016-10-09] MEDS: METOCLOPRAMIDE HCL 10 MG TAB PO SCH (06:21)
[2016-10-09 07:23] VITALS: BP 108/69; PULSE 59; TEMP 36.7; O2SAT 96
[2016-10-09] MEDS: FLUTICASONE/SALMETEROL 250/50 (ADVAIR) 14 PUFF/1 INHALER INH SCH (07:46)
[2016-10-09] MEDS: PANTOprazole SOD 40 MG TAB PO SCH (07:47)
[2016-10-09] MEDS: RANITIDINE HCL 150 MG TAB PO SCH (07:47)
[2016-10-09] MEDS: LEVOTHYROXINE 75 MCG TAB PO SCH (07:48)
[2016-10-09] MEDS: PRENATAL VITAMIN TAB PO SCH (07:48)
[2016-10-09] MEDS: NICOTINE 14 MG/24 HR TDSY TD SCH (07:48)
[2016-10-09] MEDS: ERYTHROMYCIN DELAYED RELEASE 250 MG CAP PO SCH (07:49)
--- NOTE | 2016-10-09 09:34 | Gastroenterology Progress Note ---
Progress Note Date of Service: Oct 09, 2016 Subjective Pt evaluation today including: conversation w/ patient, physical exam, chart review Patient was seen and examined this morning. She states that she feels well and is anxious to go home. She tolerated a dose of erythromycin yesterday and is due for another dose prior to discharge. She reports that she is back to her baseline an eating as she typically does. She denies any fever, chills, chest pain, SOB, nausea, abdominal pain, black/bloody stools/emesis. Review of Systems Constitutional: No chills, No fever Respiratory: No cough, No shortness of breath Cardiac: No chest pain, No edema Abdomen: No GI bleeding, No constipation, No diarrhea, No nausea, No pain, No vomiting Medications Current Inpatient Medications Medications (Trade) Dose Ordered Sig/Marisol Route Start Time Stop Time Status Last Admin Dose Admin Acetaminophen (Tylenol Tab) 650 mg Q4H PRN PO 10/06/16 21:00 11/05/16 20:59 10/07/16 03:41 650 MG Al Hydrox/Mg Hydrox/Simethicone (Maalox Max Susp) 15 ml Q4H PRN PO 10/06/16 21:00 11/05/16 20:59 10/09/16 02:13 15 ML Magnesium Hydroxide (Milk Of Magnesia Susp) 30 ml Q6H PRN PO 10/06/16 21:00 11/05/16 20:59 Polyethylene (Miralax Powder Packet) 17 gm DAILY PRN PO 10/06/16 21:00 11/05/16 20:59 Ondansetron HCl 4 mg 4 mg Q6H PRN IV 10/06/16 21:00 11/05/16 20:59 10/08/16 08:10 4 MG Promethazine HCl/ Sodium Chloride (Phenergan Inj/ Nss 50ml) 51 ml @ 204 mls/hr Q6H PRN IV 10/06/16 21:00 11/05/16 20:59 10/08/16 10:17 204 MLS/HR Albuterol Sulfate (Ventolin 0.083% 2.5MG/3ML Neb) 2.5 mg Q4 PRN INH 10/06/16 21:15 11/05/16 21:14 Albuterol (Ventolin Hfa Inhaler) 2 puffs QID PRN INH 10/06/16 21:15 11/05/16 21:14 Clonazepam (Klonopin Tab) 0.5 mg TID PRN PO 10/06/16 21:15 11/05/16 21:14 Dicyclomine HCl (Bentyl Cap) 10 mg BID PRN PO 10/06/16 21:15 11/05/16 21:14 10/08/16 03:50 10 MG Digoxin (Lanoxin Tab) 0.125 mg DAILY@1600 PO 10/07/16 16:00 11/06/16 15:59 10/08/16 15:48 0.125 MG Escitalopram Oxalate (Lexapro Tab) 10 mg DAILY PO 10/07/16 08:00 11/06/16 08:59 Future Hold 10/08/16 08:14 10 MG Salmeterol Xinafoate/ Fluticasone (Advair Diskus 250/50 Inh) 1 puff BID INH 10/07/16 08:00 11/06/16 08:59 10/09/16 07:46 1 PUFF Levothyroxine Sodium (Synthroid Tab) 75 mcg DAILY PO 10/07/16 08:00 11/06/16 08:59 10/09/16 07:48 75 MCG Metoclopramide HCl (Reglan Tab) 10 mg ACHS PO 10/07/16 06:30 11/06/16 06:59 10/09/16 06:21 10 MG Oxycodone/ Acetaminophen (Percocet 5-325MG Tab) 1 tab Q6H PRN PO 10/06/16 21:15 10/20/16 21:14 Prochlorperazine Maleate (Compazine Tab) 10 mg Q6H PRN PO 10/06/16 21:15 11/05/16 21:14 10/09/16 03:39 10 MG Al Hydroxide/Mg Trisilicate (Gaviscon Chew Tab) 2 tab TID PRN PO 10/06/16 21:15 11/05/16 21:14 Pantoprazole Sodium (Protonix Tab) 40 mg DAILY PO 10/07/16 08:00 11/06/16 08:59 10/09/16 07:47 40 MG Prenat Multivit/ [place]/Iron/Folic Ac ( Vitamin Tab) 1 tab DAILY PO 10/07/16 08:00 11/06/16 08:59 10/09/16 07:48 1 TAB Nicotine (Nicoderm Cq 14MG Patch) 1 patch QAM TD 10/07/16 08:00 11/06/16 08:59 Miscellaneous (Remove Nicoderm Patch) 1 ea HS N/A 10/07/16 21:00 11/06/16 20:59 Miscellaneous (Iv Fluids Completed) 1 ea PRN PRN N/A 10/06/16 21:15 10/06/17 21:14 Ranitidine HCl (zANTac TAB) 150 mg BID PO 10/07/16 08:00 11/06/16 08:59 10/09/16 07:47 150 MG Erythromycin (Eryc Delayed Rel Cap) 250 mg QID PO 10/08/16 17:00 10/13/16 16:59 10/09/16 07:49 250 MG Objective Vital Signs Date Time Temp Pulse Resp B/P Pulse Ox O2 Delivery O2 Flow Rate FiO2 10/09/16 08:00 Room Air 10/09/16 07:23 36.7 59 16 108/69 96 Room Air 10/09/16 00:36 118/68 10/09/16 00:10 36.8 59 16 94/60 96 Room Air 10/09/16 00:09 Room Air 10/08/16 20:35 Room Air 10/08/16 16:13 37.2 63 18 157/92 97 Room Air 10/08/16 15:48 72 Physical Exam General Appearance: no apparent distress Eyes: PERRL ENT: hearing grossly normal Neck: supple, trachea midline Respiratory/Chest: lungs clear, normal breath sounds, no respiratory distress, no accessory muscle use Cardiovascular: regular rate, rhythm, no edema, no gallop, no JVD, no murmur Abdomen: normal bowel sounds, non tender, soft, no organomegaly Neurologic/Psych: alert, normal mood/affect, oriented x 3 Skin: normal color, no jaundice, warm/dry, no rash Assessment and Plan Patient is a 56-year-old female who presented with nausea and vomiting following anesthesia Sunday for placement of a port. Acute increase in n/v likely related to underlying gastroparesis. Suspect that this is related to the patient's underlying gastroparesis, acute symptoms have since resolve since treatment with erythromycin and emend. Plan: Continue Erythromycin. Continue with full liquid diet. Resume home medications after discharge. Follow up with Dr. Ridley or Marilyn Gonzalez as scheduled. GI to sign of. GI ok for discharge. Please call with any questions or concerns.
[2016-10-09 10:14] VITALS: BP 108/69; PULSE 59; TEMP 36.7; O2SAT 96
--- NOTE | 2016-10-09 12:43 | Discharge Summary ---
Discharge Summary Admission Date: Oct 06, 2016 at 20:56 Discharge Date: Oct 09, 2016 Discharge Disposition: Home Principal Diagnosis: GASTROPARESIS /INTRACTABLE NAUSEA /VOMITING Consultations: [facility] Pending Studies/Follow-Up: Instructions / Follow-Up HOSPITAL FOLLOW UP WITH DR BELL IN A WEEK , OFFICE WILL CALL WITH APPOINTMENT GI FOLLOW UP PER SCHEDULE Medication Reconciliation New Medications: Erythromycin (Erythromycin) 250 Mg Cap 250 MG PO QID for 30 Days, #120 CAP Continued Medications: Albuterol Sulf (Albuterol Sulfate 0.083% For Inh) 3 Ml Nebu 3 ML INH Q4 PRN for Wheezing Albuterol Sulfate (Proair Hfa) 108 Mcg/ Aer 2 PUFFS IN QID PRN for SOB/Wheezing Aluminum Hydroxide-Mag Trisil (Gaviscon) 1 Chw Chw 2 CAP PO TID PRN for Dyspepsia Clonazepam (Klonopin) 0.5 Mg Tab 0.5 MG PO TID PRN for Anxiety/Agitation Dexlansoprazole (Dexilant) 30 Mg Capdr 30 MG PO DAILY Dicyclomine HCl (Dicyclomine HCl) 20 Mg Tab 10 MG PO BID PRN for pain for 30 Days, #60 TAB 3 Refills Digoxin (Lanoxin) 0.125 Mg Tab 0.125 MG PO DAILY, TAB Escitalopram (Lexapro) 10 Mg Tab 10 MG PO DAILY, TAB Fluticasone Prop/Salmeterol (Advair Diskus 250-50 Mcg/Dose) 14 Puff/1 Inhaler Aerp 1 PUFF INH BID Fosaprepitant Dimeglumine (Emend) 150 Mg Rosalia 55 ML IV MONTHLY Levothyroxine Sodium (Levothyroxine Sodium) 75 Mcg Tab 75 MCG PO DAILY Metoclopramide (Reglan) 10 Mg Tab 10 MG PO ACHS, TAB Ondansetron Hcl (Zofran) 4 Mg Tab 4 MG PO Q6H PRN for Nausea, TAB Oxycodone/Acetaminophen 5MG/325MG (Percocet 5MG/325MG) Tab 2 TABLETS PO Q6H PRN for Pain, TAB PAIN Mv & Min W/Fe Fumarat ( 1) 1 Cap Cap 1 CAP PO DAILY Prochlorperazine Maleate (Compazine) 10 Mg Tab 10 MG PO Q6H PRN for Nausea or Vomiting, TAB Ranitidine Hcl (Zantac) 300 Mg Tab 300 MG PO BID [Clindamycin Iv] () 900 MG IV TODAY ONCE Admission Information HPI (per Admitting provider): Patient seen and examined. 56 year old female with PMHx of gastroparesis, dumping syndrome, COPD, depression and other problems listed below presents to the ED complaining of nausea x 1 day. Patient reports she woke up this morning with nausea. She states she then had a port placed for monthly Emend infusion. She states after the procedure her nausea continued and she started having dry heaving. She took her zofran at home but this did not alleviate the symptoms. She has associated epigastric abdominal pain with radiation to the back that she describes as a dull ache and rates as a 5/10. She states that these symptoms are similar to her previous gastroparesis flares. She denies fevers, chills, URI symptoms, chest pain, SOB, diarrhea, dysuria, calf pain and edema. In the ED VS are stable, CBC, PRP, LFTs, Lipase and UA are essentially unremarkable, KUB is negative for obstruction. She received zofran and phenegran with minimal relief. Emend is currently infusing. She will be observed for further workup and treatment. Physical Exam (per Admitting): General Appearance: + pertinent finding (Chronically ill appearing 56 year old female lying in bed in NAD ) Head: normocephalic, atraumatic Eyes: PERRL, EOMI, sclerae normal ENT: hearing grossly normal, pharynx normal Neck: supple, no JVD, trachea midline Respiratory/Chest: chest non-tender, lungs clear, normal breath sounds, no respiratory distress, no accessory muscle use Cardiovascular: regular rate, rhythm, no edema, no gallop, no JVD, normal peripheral pulses, + systolic murmur Abdomen/GI: normal bowel sounds, non tender (no guarding, no rigidity ), soft, no organomegaly Back: normal inspection, no CVA tenderness, no muscle spasm Extremities/Musculoskelatal: no calf tenderness, normal capillary refill, no pedal edema Neurologic/Psych: alert, oriented x 3, + pertinent finding (no motor or sensory deficits noted on gross exam ) Skin: normal color, warm/dry, no rash Lymphatic: no adenopathy Hospital Course Nausea has resolved, no vomiting or abdominal discomfort tolerating solid food well walking on [address] feels fine . wants to be discharged home daughter present to provide ride back home evaluated by GI team this AM -stable to be discharged home will continue to follow up with GI for scheduled monthly IV Amend infusion P/E: Exam: General-comfortable , no sign of distress Eyes-sclera non icteric ENT-moist oral mucosa Neck-trachea midline, no thyromegaly Lungs-CTA, no wheeze or rales Heart-regular S1/s2 Abdomen-soft ,non tender Extremities-rt ant chest wall port placement site intact , no swelling, no erythema Neuro-no focal neurological deficit INTRACTABLE NAUSEA, ABDOMINAL PAIN, DRY HEAVES- known gastroparesis, dumping syndrome -symptom resolved advance diet to low residue -tolerating well no nausea or abdominal discomfort ambulating independently eager to be discharged home -s/p port placement for monthly IV Emend infusion -GI eval requested, pt is known to [facility] GI service -appreciate input -cont PO Erythromycin as Prokinetic -stable to be discharge home today HYPOTHYROIDISM -continue Synthroid COPD -stable -continue home inhalers DEPRESSION -continue Lexapro, Klonopin TOBACCO ABUSE -Cessation counseling given -Nicotine patch ordered H/O PVCs/PACs -continue Digoxin DVT PROPHYLAXIS: SCDs ambulate CODE STATUS: FULL CODE DISPOSITION Discharge home today Discharge Instructions DI: Medical v4 Discharge Instructions Admission Reason for Admission: Epigastric Abdominal Pain, Nausea Discharge Discharge Diagnosis / Problem: GASTROPARESIS /INTRACTABLE NAUSEA /VOMITING Discharge Goals Goal(s): Improve disease control Activity Recommendations Activity Limitations: resume your previous activity . Instructions / Follow-Up Instructions / Follow-Up HOSPITAL FOLLOW UP WITH DR BELL IN A WEEK , OFFICE WILL CALL WITH APPOINTMENT GI FOLLOW UP PER SCHEDULE Current Hospital Diet Patient's current hospital diet: Clear Liquid Diet Discharge Diet Recommended Diet: Low Fiber Diet Pending Studies Studies pending at discharge: no Medical Emergencies . Who to Call and When: Medical Emergencies: If at any time you feel your situation is an emergency, please call 911 immediately. . Non-Emergent Contact Non-Emergency issues call your: Primary Care Provider . . "Provider Documentation" section prepared by Theodora Mohr. VTE Core Measure Inpt VTE Proph given/why not?: Beto Price, SCD's
[2017-03-30] MEDS ORDERED: PROC1TAB5 PO (01:03)
[2017-03-30] MEDS ORDERED: ONDA4TAB46 PO (01:20)
[2017-03-30] MEDS ORDERED: LEVO75TA5 PO (03:29)
[2017-03-30] MEDS ORDERED: FAMO20TA9 PO (09:48)
[2017-06-15] MEDS ORDERED: PROM1SUP19 PR (12:09)
[2017-06-18] MEDS ORDERED: OXYC-57 PO (10:33)
== END 2016-10-09 11:15 | disposition home or self-care (01) ==
LOC: ENRESERVTM → ENRESERVDT → EDBD 15:48 → C.EDB 15:49 → C.MS4W 20:56
PROVIDERS: ADMIT Internal Medicine; ATTEND Hospitalist
DX: K31.84 Gastroparesis (principal); K91.1 Postgastric surgery syndromes; J44.9 Chronic obstructive pulmonary disease, unspecified; F32.9 Major depressive disorder, single episode, unspecified; K21.0 Gastro-esophageal reflux disease with esophagitis; E78.5 Hyperlipidemia, unspecified; E03.9 Hypothyroidism, unspecified; G62.9 Polyneuropathy, unspecified; I34.0 Nonrheumatic mitral (valve) insufficiency; K31.7 Polyp of stomach and duodenum; K57.90 Diverticulosis of intestine, part unspecified, without perforation or abscess without bleeding; E78.00 Pure hypercholesterolemia, unspecified; Z88.0 Allergy status to penicillin; Z87.891 Personal history of nicotine dependence; Z90.721 Acquired absence of ovaries, unilateral; Z90.710 Acquired absence of both cervix and uterus; Z90.3 Acquired absence of stomach [part of]; Z83.3 Family history of diabetes mellitus; Z82.49 Family history of ischemic heart disease and other diseases of the circulatory system; Z84.1 Family history of disorders of kidney and ureter

== ENCOUNTER 2016-11-02 16:00 | Observation (INO) | payer OTHER ==
[~2016-11-02] VITALS: Ht 166.4 cm; Wt 60.0 kg
[~2016-11-02 16:00] MED LIST changes: +ALBU1AER9 IN; -BNT20 PO; -METO1TAB55 PO
[2016-11-02 16:02] VITALS: Ht 166.4 cm; Wt 60.0 kg
[2016-11-02] MEDS ORDERED: ONDANSETRON INJ 2 MG/ML 2 ML VIAL IV STA (16:15)
[2016-11-02] MEDS ORDERED: MoRPHine SULFATE 4 MG/ML 1 ML CARP\\VIAL IV STA (16:15)
[2016-11-02] MEDS ORDERED: OXYC-57 PO (16:48)
[2016-11-02 16:52] LABS: BASO % 0.3 %; BASO ABS # 0.02 K/uL (0-0.2); COMPLETE YES; EOS % 0.3 %; HEMATOCRIT 37.9 % (37-47); IG% 0.1 %; LYMPH % 19.6 %; LYMPH ABS # 1.52 K/uL (1.2-3.4); MEAN CELL VOLUME 85.7 fL (80-100); MEAN CORPUSCULAR HEMOGLOBIN 28.5 pg (25-34); MEAN CORPUSCULAR HGB CONC 33.2 g/dl (32-36); MEAN PLATELET VOLUME 9.2 fL (7.4-10.4); MONO % 3.4 %; NEUT % 76.3 %; PLATELET COUNT 304 K/uL (130-400); RED BLOOD COUNT 4.42 M/uL (4.2-5.4); WHITE BLOOD COUNT 7.76 K/uL (4.8-10.8)
[2016-11-02] MEDS ORDERED: ADVIN25050 INH (16:52)
[2016-11-02 17:15] LABS: PROTHROMBIN TIME (PATIENT) 10.4 SECONDS (9.0-12.0)
[2016-11-02 17:16] LABS: BUN/CREATININE RATIO 12.8 (10-20); CALCIUM 8.8 mg/dl (8.5-10.1); CREATININE 0.92 mg/dl (0.60-1.20); POTASSIUM 3.7 mmol/L (3.5-5.1)
[2016-11-02] MEDS ORDERED: FOSAPREPITANT DIMEGLUMINE INJ 150 MG in SODIUM CHLORIDE 0.9% 150ML 145 ML IV STA (17:20)
[2016-11-02] MEDS ORDERED: FENTANYL CITRATE INJ 50 MCG/1 ML 2 ML VIAL IV STA (17:45)
[2016-11-02] MEDS ORDERED: ALBINS/ INH (17:45)
[2016-11-02] MEDS ORDERED: ALBU18002 INH (17:45)
[2016-11-02] MEDS ORDERED: LORAZEPAM 2 MG/ML 1 ML VIAL IV STA (17:45)
[2016-11-02] MEDS ORDERED: SODIUM CHLORIDE 0.9% 1000ML 1,000 ML IV STA (19:18)
[2016-11-02] MEDS ORDERED: RANI300T PO (19:18)
[2016-11-02] MEDS ORDERED: PROMETHAZINE HCL INJ 12.5 MG in SODIUM CHLORIDE 0.9% 50ML 50 ML IV STA (19:18)
[2016-11-02 19:40] LABS: URINE APPEARANCE CLEAR (CLEAR); URINE BILIRUBIN NEG (NEG); URINE COLOR YELLOW; URINE NITRITE NEG (NEG); URINE SPECIFIC GRAVITY 1.015 (1.000-1.030); UROBILINOGEN NEG (NEG)
[2016-11-02 19:43] LABS: MANUAL MICROSCOPIC REQUIRED? NO; REVIEW REQ? NO
--- NOTE | 2016-11-02 20:01 | DIAGNOSTIC IMAGING REPORT ---
AP CHEST WITH ABDOMINAL SERIES CLINICAL HISTORY: Generalized abdominal pain. FINDINGS: An AP chest radiograph is compared to study dated 10/06/2016. Correlation is made with chest CT dated 06/20/2012. A right internal jugular central venous infusion port is unchanged in position. The cardiomediastinal silhouette is top normal for projection. There is mild atherosclerotic calcification of the thoracic aorta. Mild elevation of the right hemidiaphragm and right basilar atelectasis is unchanged, as is chronic interstitial thickening. No airspace consolidation or large pleural effusion is identified. No pneumothorax is seen. The skeletal structures are osteopenic. The bony thorax is grossly intact. Supine and decubitus radiographs are compared to study dated 10/06/2016 and correlated with abdominal CT dated 11/26/2015. Postoperative changes are again seen at the gastroesophageal junction. There are also cholecystectomy clips in the right upper quadrant. There is mild gaseous distention of the proximal small bowel loops which measure up to 3.2 cm. Scattered air-fluid levels are noted on the decubitus view. No intraperitoneal free air is seen. There is no radiographic evidence of nephrolithiasis. Numerous calcified phleboliths are seen in the pelvis. The lumbosacral spine and bony pelvis appear intact. IMPRESSION: 1. No acute cardiopulmonary abnormality. 2. There are mildly distended and gas-filled loops of proximal small bowel. Air-fluid levels are noted. Gas and stool are present in the colon, and this could represent a nonspecific enteritis or could be seen with a low-grade small bowel obstruction. Clinical correlation will be required. 3. No intraperitoneal free air is seen. Electronically signed by: Bayron Tillman M.D. 11/02/2016 8:00 PM Dictated Date/Time: 11/02/2016 7:56 PM
[2016-11-02] MEDS ORDERED: IV FLUIDS COMPLETED PRN (20:45)
--- NOTE | 2016-11-02 20:56 | DIAGNOSTIC IMAGING REPORT ---
CT SCAN OF THE ABDOMEN AND PELVIS WITHOUT IV CONTRAST CLINICAL HISTORY: Generalized abdominal pain. Vomiting. COMPARISON STUDY: Prior abdominal CT scans, most recently dated 11/26/2015. Abdominal radiograph dated 11/02/16. TECHNIQUE: CT scan of the abdomen and pelvis is performed from the lung bases to the proximal femora. Images are reviewed in the axial, sagittal, and coronal planes. IV contrast was not administered for this examination as per the referring clinician. Note that the examination was performed in significantly suboptimal fashion without oral and IV contrast. Automated dose control exposure was utilized. CT DOSE: 566.12 mGy.cm FINDINGS: Lung bases: The heart is mildly enlarged and without pericardial effusion. There are coronary artery calcifications. There is mild ectasia of the partially imaged ascending thoracic aorta which measures up to 4.1 cm in diameter. The lung bases are clear. Liver: The unenhanced liver is normal in size, contour, and attenuation. There is mild central intrahepatic biliary ductal dilatation. Gallbladder: Surgically absent noting clips in the gallbladder fossa. Spleen: Normal in size and attenuation. Pancreas: The unenhanced pancreas is moderately atrophic and grossly unremarkable. Adrenal glands: A 2.5 cm right adrenal adenoma is unchanged. The left adrenal gland is unremarkable. Kidneys: The unenhanced kidneys are demonstrate cortical atrophy and are without hydronephrosis. There are no renal calculi identified. There is no evidence of contour deforming renal mass lesion. Abdominal vasculature: The abdominal aorta is normal in course and caliber. Stomach and bowel: There is a small hiatal hernia. Postoperative change is identified involving the stomach. The duodenum is normal in configuration. A duodenal diverticulum is unchanged. There is no bowel obstruction. The appendix is not clearly visualized. Peritoneum: There is no intraperitoneal free air or abdominal ascites. Lymphadenopathy: None. Pelvic viscera: The bladder is normal as visualized. The uterus is surgically absent. No adnexal lesion is seen. Skeletal structures: The skeletal structures are osteopenic. No lytic or blastic lesions are seen. IMPRESSION: 1. Significantly suboptimal examination without oral and IV contrast. 2. There are no acute infectious or inflammatory findings in the abdomen or pelvis. 3. There is no bowel obstruction. 4. Postoperative changes are noted in the stomach, similar to previous. 5. Cardiomegaly with mild ectasia of the ascending thoracic aorta which measures up to 4.1 cm in diameter. Consider nonemergent vascular surgical consult and CT angiogram of the chest for further assessment. 6. Additional findings as above. Electronically signed by: Bayron Tillman M.D. 11/02/2016 8:55 PM Dictated Date/Time: 11/02/2016 8:45 PM
[2016-11-02] MEDS ORDERED: ZOLPIDEM TARTRATE 5 MG TAB PO PRN (21:00)
[2016-11-02] MEDS ORDERED: ALUMINUM/MAGNESIUM/SIMETH (MAALOX MAX) 30 ML UDC PO PRN (21:00)
[2016-11-02] MEDS ORDERED: POLYETHYLENE (MIRALAX) 17 GM PACK PO PRN (21:00)
[2016-11-02] MEDS ORDERED: ACETAMINOPHEN 325 MG TAB PO PRN (21:00)
[2016-11-02] MEDS ORDERED: MAGNESIUM HYDROXIDE SUSP 30 ML UDC PO PRN (21:00)
[2016-11-02] MEDS ORDERED: CLONAZEPAM 0.5 MG TAB PO PRN (21:15)
[2016-11-02] MEDS ORDERED: OXYCODONE/ACETAMINOPHEN 5-325 TAB PO PRN (21:15)
[2016-11-02] MEDS ORDERED: MoRPHine SULFATE 2 MG/ML CARP IV PRN ×2 (21:15)
[2016-11-02] MEDS ORDERED: ALUM HYDROX/MAG TRISILICATE CHEW PO PRN (21:15)
[2016-11-02] MEDS ORDERED: ALBUTEROL 0.083% NEBU SOLN 3 ML VIAL INH PRN (21:15)
[2016-11-02] MEDS ORDERED: ONDANSETRON 4 MG TAB PO PRN (21:15)
--- NOTE | 2016-11-02 21:41 | EMERGENCY ROOM VISIT NOTE ---
History Report prepared by [place]: Adia Kiser Under the Supervision of: Dr. Evgeny Goel M.D. First contact with patient: 16:08 Chief Complaint: VOMITING Stated Complaint: VOMITING History of Present Illness The patient is a 56 year old female who presents to the Emergency Room with complaints of persistent vomiting. She has a history of gastroparesis and states it started up this morning and "just seems to be getting worse". She has tried taking Reglan and Zofran at home, but states "it didn't work". She reports she received amend infusion this past Sunday for her history of gastroparesis. The patient was recently seen here in the hospital for similar symptoms and was prescribed Erythromycin, which she states she stopped taking because it gave her diarrhea. She admits to some pain in her abdomen and back because of the amount of dry heaving she has been experiencing. Her last bowel movement was this morning and normal. She denies any melena or hematochezia. She states that her symptoms today are identical to her previous episodes of gastroparesis without any new or atypical symptoms. Source of History: patient Onset: this morning Position: abdomen Timing: other (persistent) Modifying Factors (Relieving): anti-emetics (Reglan) Associated Symptoms: + abdominal pain, + back pain, No SOB, No chest pain, No hematochezia, No melena Review of Systems See HPI for pertinent positives & negatives. A total of 10 systems reviewed and were otherwise negative. Past Medical & Surgical Medical Problems: (1) Abdominal pain (2) Anemia, iron deficiency (3) Anemia, iron deficiency (4) Anxiety (5) Anxiety State Nos (6) Asthma (7) Chronic Obstructive Asthma, Nos (8) COPD (chronic obstructive pulmonary disease) (9) Depression (10) Diarrhea (11) Diverticulosis (12) Esophagitis Nos (13) Frequent PVCs (14) Gastroparesis (15) GERD (gastroesophageal reflux disease) (16) Hyperlipidemia Nec/Nos (17) Hypothyroidism (18) Hypothyroidism Nos (19) Iron Defic Anemia Nos (20) Mitral regurgitation (21) MRSA bacteremia (22) Nausea (23) Neuropathy (24) Pemphigus vulgaris (25) Pernicious anemia (26) Pernicious Anemia (27) Premature atrial contractions (28) Tobacco abuse Surgical Problems: (1) H/O colonoscopy (2) H/O esophagogastroduodenoscopy (3) H/O oophorectomy (4) H/O: hysterectomy (5) History of bladder surgery (6) S/P hysterectomy (7) S/P laparoscopic sleeve gastrectomy (8) S/P partial gastrectomy (9) S/P repair of paraesophageal hernia (10) S/P repair of paraesophageal hernia (11) S/P tonsillectomy and adenoidectomy (12) S/P tonsillectomy and adenoidectomy Family History Diabetes mellitus MOTHER SISTER FH: aneurysm FH: cancer FH: heart disease FATHER MOTHER Hypertension BROTHER Kidney disease Social History Smoking Status: Never Smoker Alcohol Use: none Drug Use: none Marital Status: single Housing Status: lives alone Occupation Status: disabled Current/Historical Medications Scheduled Albuterol Sulfate (Proair Respiclick), 2 PUFFS INH QID Dexlansoprazole (Dexilant), 30 MG PO DAILY Digoxin (Digoxin), 0.125 MG PO DAILY Escitalopram (Lexapro), 10 MG PO DAILY Fluticasone Prop/Salmeterol (Advair Diskus 250-50 Mcg/Dose), 1 PUFF INH BID Fosaprepitant Dimeglumine (Emend), 5 ML IV MONTHLY Levothyroxine Sodium (Levothyroxine Sodium), 75 MCG PO DAILY Metoclopramide (Reglan), 10 MG PO ACHS Multivit-Min W/Fe-Fa ( And Iron), 1 TAB PO DAILY Ranitidine Hcl (Zantac), 300 MG PO BID Scheduled PRN Albuterol Sulf (Proventil 0.083% 2.5MG/3ML), 2.5 MG INH Q4H PRN for Wheezing Aluminum Hydroxide-Mag Trisil (Gaviscon), 2 CAP PO TID PRN for Dyspepsia Clonazepam (Klonopin), 0.5 MG PO TID PRN for Anxiety/Agitation Ondansetron Hcl (Zofran), 4 MG PO Q6H PRN for Nausea Oxycodone/Acetaminophen 5MG/325MG (Percocet 5MG/325MG), 1 TAB PO Q6H PRN for Moderate Pain Prochlorperazine Maleate (Compazine), 10 MG PO Q6H PRN for Nausea or Vomiting Allergies Coded Allergies: Amoxicillin (Verified Adverse Reaction, Intermediate, yeast infection, ) NSAIDs (Verified Adverse Reaction, Mild, indegestion, 08/23/16) Rofecoxib (Verified Adverse Reaction, Mild, indigestion, 08/23/16) Scopolamine (Verified Adverse Reaction, Mild, rash from patch, 08/23/16) Physical Exam Vital Signs Date Time Temp Pulse Resp B/P Pulse Ox O2 Delivery O2 Flow Rate FiO2 11/02/16 21:21 71 14 151/96 97 Room Air 11/02/16 20:46 82 16 161/97 97 Room Air 11/02/16 19:43 67 17 145/95 98 Room Air 11/02/16 18:00 69 16 148/107 99 Room Air 11/02/16 16:30 63 11/02/16 16:02 36.9 60 20 153/100 97 Room Air Physical Exam Constitutional: Vital signs reviewed. Eyes: Pupils are equal round reactive to light. Conjunctiva are noninjected. ENT: Pharynx is clear without erythema or exudate. Mucous membranes are dry. Neck supple without meningeal signs. Respiratory: Clear to auscultation bilaterally. Breath sounds are equal bilaterally. Cardiovascular: Regular rate and rhythm. No rubs or gallops. GI: Soft, nondistended mild epigastric tenderness. No guarding. Bowel sounds are present. Musculoskeletal: No peripheral edema. No lower extremity tenderness. Integumentary: No cyanosis. Neurological: The patient is awake and alert. No focal deficits. Psychiatric: Anxious. Medical Decision & Procedures ER Provider Diagnostic Interpretation: This X-Ray was reviewed and interpreted by myself and the radiologist. AP CHEST WITH ABDOMINAL SERIES CLINICAL HISTORY: Generalized abdominal pain. FINDINGS: An AP chest radiograph is compared to study dated 10/06/2016. Correlation is made with chest CT dated 06/20/2012. A right internal jugular central venous infusion port is unchanged in position. The cardiomediastinal silhouette is top normal for projection. There is mild atherosclerotic calcification of the thoracic aorta. Mild elevation of the right hemidiaphragm and right basilar atelectasis is unchanged, as is chronic interstitial thickening. No airspace consolidation or large pleural effusion is identified. No pneumothorax is seen. The skeletal structures are osteopenic. The bony thorax is grossly intact. Supine and decubitus radiographs are compared to study dated 10/06/2016 and correlated with abdominal CT dated 11/26/2015. Postoperative changes are again seen at the gastroesophageal junction. There are also cholecystectomy clips in the right upper quadrant. There is mild gaseous distention of the proximal small bowel loops which measure up to 3.2 cm. Scattered air-fluid levels are noted on the decubitus view. No intraperitoneal free air is seen. There is no radiographic evidence of nephrolithiasis. Numerous calcified phleboliths are seen in the pelvis. The lumbosacral spine and bony pelvis appear intact. IMPRESSION: 1. No acute cardiopulmonary abnormality. 2. There are mildly distended and gas-filled loops of proximal small bowel. Air-fluid levels are noted. Gas and stool are present in the colon, and this could represent a nonspecific enteritis or could be seen with a low-grade small bowel obstruction. Clinical correlation will be required. 3. No intraperitoneal free air is seen. Electronically signed by: Bayron Tillman M.D. 11/02/2016 8:[address] scan was reviewed and interpreted by the radiologist and reviewed by myself. CT SCAN OF THE ABDOMEN AND PELVIS WITHOUT IV CONTRAST CLINICAL HISTORY: Generalized abdominal pain. Vomiting. COMPARISON STUDY: Prior abdominal CT scans, most recently dated 11/26/2015. Abdominal radiograph dated 11/02/16. TECHNIQUE: CT scan of the abdomen and pelvis is performed from the lung bases to the proximal femora. Images are reviewed in the axial, sagittal, and coronal planes. IV contrast was not administered for this examination as per the referring clinician. Note that the examination was performed in significantly suboptimal fashion without oral and IV contrast. Automated dose control exposure was utilized. CT DOSE: 566.12 mGy.cm FINDINGS: Lung bases: The heart is mildly enlarged and without pericardial effusion. There are coronary artery calcifications. There is mild ectasia of the partially imaged ascending thoracic aorta which measures up to 4.1 cm in diameter. The lung bases are clear. Liver: The unenhanced liver is normal in size, contour, and attenuation. There is mild central intrahepatic biliary ductal dilatation. Gallbladder: Surgically absent noting clips in the gallbladder fossa. Spleen: Normal in size and attenuation. Pancreas: The unenhanced pancreas is moderately atrophic and grossly unremarkable. Adrenal glands: A 2.5 cm right adrenal adenoma is unchanged. The left adrenal gland is unremarkable. Kidneys: The unenhanced kidneys are demonstrate cortical atrophy and are without hydronephrosis. There are no renal calculi identified. There is no evidence of contour deforming renal mass lesion. Abdominal vasculature: The abdominal aorta is normal in course and caliber. Stomach and bowel: There is a small hiatal hernia. Postoperative change is identified involving the stomach. The duodenum is normal in configuration. A duodenal diverticulum is unchanged. There is no bowel obstruction. The appendix is not clearly visualized. Peritoneum: There is no intraperitoneal free air or abdominal ascites. Lymphadenopathy: None. Pelvic viscera: The bladder is normal as visualized. The uterus is surgically absent. No adnexal lesion is seen. Skeletal structures: The skeletal structures are osteopenic. No lytic or blastic lesions are seen. IMPRESSION: 1. Significantly suboptimal examination without oral and IV contrast. 2. There are no acute infectious or inflammatory findings in the abdomen or pelvis. 3. There is no bowel obstruction. 4. Postoperative changes are noted in the stomach, similar to previous. 5. Cardiomegaly with mild ectasia of the ascending thoracic aorta which measures up to 4.1 cm in diameter. Consider nonemergent vascular surgical consult and CT angiogram of the chest for further assessment. 6. Additional findings as above. Electronically signed by: Bayron Tillman M.D. 11/02/2016 8:55 PM Laboratory Results 11/02/16 16:45 Red Blood Count 4.42, Mean Corpuscular Volume 85.7, Mean Corpuscular Hemoglobin 28.5, Mean Corpuscular Hemoglobin Concent 33.2, Mean Platelet Volume 9.2, Neutrophils (%) (Auto) 76.3, Lymphocytes (%) (Auto) 19.6, Monocytes (%) (Auto) 3.4, Eosinophils (%) (Auto) 0.3, Basophils (%) (Auto) 0.3, Neutrophils # (Auto) 5.93, Lymphocytes # (Auto) 1.52, Monocytes # (Auto) 0.26, Eosinophils # (Auto) 0.02, Basophils # (Auto) 0.02 11/02/16 16:45 Test 11/02/16 16:45 11/02/16 16:49 11/02/16 19:22 White Blood Count 7.76 K/uL (4.8-10.8) Red Blood Count 4.42 M/uL (4.2-5.4) Hemoglobin 12.6 g/dL (12.0-16.0) Hematocrit 37.9 % (37-47) Mean Corpuscular Volume 85.7 fL (80-100) Mean Corpuscular Hemoglobin 28.5 pg (25-34) Mean Corpuscular Hemoglobin Concent 33.2 g/dl (32-36) Platelet Count 304 K/uL (130-400) Mean Platelet Volume 9.2 fL (7.4-10.4) Neutrophils (%) (Auto) 76.3 % Lymphocytes (%) (Auto) 19.6 % Monocytes (%) (Auto) 3.4 % Eosinophils (%) (Auto) 0.3 % Basophils (%) (Auto) 0.3 % Neutrophils # (Auto) 5.93 K/uL (1.4-6.5) Lymphocytes # (Auto) 1.52 K/uL (1.2-3.4) Monocytes # (Auto) 0.26 K/uL (0.11-0.59) Eosinophils # (Auto) 0.02 K/uL (0-0.5) Basophils # (Auto) 0.02 K/uL (0-0.2) RDW Standard Deviation 45.3 fL (36.4-46.3) RDW Coefficient of Variation 14.5 % (11.5-14.5) Immature Granulocyte % (Auto) 0.1 % Immature Granulocyte # (Auto) 0.01 K/uL (0.00-0.02) Anion Gap 12.0 mmol/L (3-11) Est Creatinine Clear Calc Drug Dose 61.2 ml/min Estimated GFR () 79.6 Estimated GFR (Non- 68.6 BUN/Creatinine Ratio 12.8 (10-20) Calcium Level 8.8 mg/dl (8.5-10.1) Total Bilirubin 0.4 mg/dl (0.2-1) Direct Bilirubin 0.1 mg/dl (0-0.2) Aspartate Amino Transf (AST/SGOT) 15 U/L (15-37) Alanine Aminotransferase (ALT/SGPT) 11 U/L (12-78) Alkaline Phosphatase 115 U/L (45-117) Total Protein 6.8 gm/dl (6.4-8.2) Albumin 3.5 gm/dl (3.4-5.0) Lipase 115 U/L (73-393) Prothrombin Time 10.4 SECONDS (9.0-12.0) Prothromb Time International Ratio 1.0 (0.9-1.1) Activated Partial Thromboplast Time 24.7 SECONDS (21.0-31.0) Partial Thromboplastin Ratio 1.0 Urine Color YELLOW Urine Appearance CLEAR (CLEAR) Urine pH 6.0 (4.5-7.5) Urine Specific [place] 1.015 (1.000-1.030) Urine Protein NEG (NEG) Urine Glucose (UA) NEG (NEG) Urine Ketones 2+ (NEG) Urine Occult Blood TRACE (NEG) Urine Nitrite NEG (NEG) Urine Bilirubin NEG (NEG) Urine Urobilinogen NEG (NEG) Urine Leukocyte Esterase NEG (NEG) Urine WBC (Auto) 1-5 /hpf (0-5) Urine RBC (Auto) 0-4 /hpf (0-4) Urine Hyaline Casts (Auto) 1-5 /lpf (0-5) Urine Epithelial Cells (Auto) 5-10 /lpf (0-5) Urine Bacteria (Auto) NEG (NEG) Laboratory results as reviewed by me. Medications Administered Medications (Trade) Dose Ordered Sig/Marisol Route Start Time Stop Time Status Last Admin Dose Admin Morphine Sulfate (MoRPHine SULFATE INJ) 4 mg ONE STAT IV 11/02/16 16:15 11/02/16 16:17 DC 11/02/16 16:51 4 MG Ondansetron HCl 4 mg 4 mg NOW STAT IV 11/02/16 16:15 11/02/16 16:17 DC 11/02/16 16:49 4 MG Fosaprepitant/ Sodium Chloride (Emend Inj/Nss 150ml) 150 ml @ 300 mls/hr NOW STAT IV 11/02/16 17:20 11/02/16 17:49 DC 11/02/16 18:03 300 MLS/HR Lorazepam (Ativan Inj) 0.5 mg NOW STAT IV 11/02/16 17:45 11/02/16 17:46 DC 11/02/16 17:55 0.5 MG Fentanyl Citrate 25 mcg 25 mcg NOW STAT IV 11/02/16 17:45 11/02/16 17:46 DC 11/02/16 17:59 25 MCG Sodium Chloride 1,000 ml @ 999 mls/hr Q1H1M STAT IV 11/02/16 19:18 11/02/16 20:18 DC 11/02/16 19:42 999 MLS/HR Promethazine HCl/ Sodium Chloride (Phenergan Inj/ Nss 50ml) 50.5 ml @ 204 mls/hr NOW STAT IV 11/02/16 19:18 11/02/16 19:32 DC 11/02/16 19:42 204 MLS/HR ECG Indication: abdominal pain (epigastric abdominal pain) Rate (beats per minute): 67 Rhythm: sinus rhythm Findings: PVC, no acute ischemic change ED Course 161: The patient was evaluated in room A10. A complete history and physical exam was performed. 1615: Zofran 4 mg IV, Morphine Sulfate 4 mg IV. 1720: Fosaprepitant 150 mg/Sodium Chloride 150 ml @ 300 mls/hr IV. 1739: I reevaluated the patient. She is still very nauseated and waiting for her Amend. 1744: Fentanyl Citrate 25 mcg IV, Ativan 0.5 mg IV. 1914: I reevaluated the patient. She is still nauseated and hypertensive. 1917: Promethazine HCl 2.5 mg/NSS 50.5 ml @ 204 mls/hr IV, NSS 1000 ml @ 999 mls /hr IV. 2014: I reevaluated the patient. She is still nauseated. I discussed my recommendation that she remain in the hospital for further evaluation and management and she verbalized complete understanding and agreement. 2019: I discussed the patients case with Dr. Mohr, [facility] Hospitalist. The patient will be further evaluated. Medical Decision This is a 56-year-old female presents with upper abdominal pain and vomiting. Differential diagnosis includes gastroparesis, dehydration, electrolyte abnormality, cholelithiasis, inferior wall [place], bowel obstruction. I did perform a limited focused review of portions of the patient's old chart on the electronic medical record. The patient was admitted on October 06, 2016 for intractable vomiting and gastroparesis. She was seen by GI. She was on erythromycin which acted as a pro-kinetic. She has had multiple prior admissions for similar intractable vomiting. I did evaluate the patient as noted above. The patient is presenting with symptoms consistent with her gastroparesis. She does complain of upper abdominal pain. IV access was established. The patient was placed on a continuous electrotyper. I did order and personally review the patient's 12- lead EKG and chest/abdominal x-ray as described above. Her twelve-lead EKG does not demonstrate any acute ischemic changes. Her x-rays were concerning for possible small bowel obstruction. I did order and review the patient's blood work as noted in the electronic medical record. I did order a CT of the abdomen and pelvis. I did review the images myself as well as the radiology report as described above. There is no evidence of obstruction. I did treat the patient with normal saline IV. She was also given IV morphine and fentanyl for pain. She was given IV Zofran, Phenergan and amend for her nausea but she had no relief of her nausea. She will therefore require hospitalization for further care. I did discuss the case with the hospitalist and case briefer. Consults Time Called: 2015 Consulting Physician: Stephanie Melendez Hospitalist Returned Call: 2018 [facility] The patient will be further evaluated. Impression Primary Impression: Intractable vomiting Additional Impressions: Gastroparesis Dehydration Scribe Attestation The scribe's documentation has been prepared under my direct and personally reviewed by me in its entirety. I confirm that the note above accurately reflects all work, treatment, procedures, and medical decision making performed by me. Departure Information Dispostion Being Evaluated By Hospitalist Jaleel Solomon M.D. (PCP) Patient Instructions My [facility] Problem Qualifiers Primary Impression: Intractable vomiting
--- NOTE | 2016-11-02 22:07 | History and Physical ---
History & Physical Date & Time of Service: Nov 02, 2016 at 21:39 Chief Complaint: Vomiting Primary Care Physician: Jaleel Coppola M.D. History of Present Illness Source: patient, clinic records, hospital records Patient seen and examined. 56 year old female with PMHx of Gastroparesis, Dumping syndrome, COPD, MIGUEL , Depression, hypothyroidism, and H/O PVCs presents to the ED complaining of nausea x 1 day. Patient reports that she felt well when she went to bed last night but that today she woke up with nausea and associated dry heaving. She states this has persisted all day. She reports this is like her other "gastroparesis" attacks. She states she has some mild abdominal pain as well that is like her GERD. She denies fevers, chills, URI symptoms, chest pain, SOB, palpitations, dysuria, diarrhea, constipation, calf pain and edema. Denies new or unusual foods. She was recently admitted last month for similar symptoms and started on erythromycin which she has stopped d/ t diarrhea. She is on monthly emend injections last one on 10/30. In the ED, workup is essentially negative including KUB, CT A/P, PRP, CBC. She received Ativan, Fentanyl, emend, morphine, Zofran and promethazine with minimal relief. She will be observed for further workup and treatment. Past Medical/Surgical History Medical Problems: (1) Anemia, iron deficiency Status: Chronic (2) Anxiety Status: Chronic (3) Anxiety State Nos Status: Chronic (4) Asthma Status: Chronic (5) Chronic Obstructive Asthma, Nos Status: Chronic (6) COPD (chronic obstructive pulmonary disease) Status: Chronic (7) Depression Status: Chronic (8) Diverticulosis Status: Chronic (9) Esophagitis Nos Status: Chronic (10) Frequent PVCs Status: Chronic (11) Gastroparesis Status: Chronic (12) GERD (gastroesophageal reflux disease) Status: Chronic (13) Hyperlipidemia Nec/Nos Status: Chronic (14) Hypothyroidism Status: Chronic (15) Hypothyroidism Nos Status: Chronic (16) Iron Defic Anemia Nos Status: Chronic (17) Mitral regurgitation Permanent Comment: moderate per echo 09/21/15 Status: Chronic (18) MRSA bacteremia Status: Resolved (19) Neuropathy Status: Chronic (20) Pemphigus vulgaris Status: Chronic (21) Pernicious anemia Status: Chronic (22) Pernicious Anemia Status: Chronic (23) Premature atrial contractions Status: Chronic (24) Tobacco abuse Status: Chronic Surgical Problems: (1) H/O colonoscopy Permanent Comment: 08/14/2013- Moderate diverticulosis in the sigmoid colon, in the descending colon and in the ascending colon. Internal hemorrhoids. Normal mucosa in the entire examined colon. Biopsied. Status: Chronic (2) H/O esophagogastroduodenoscopy Permanent Comment: 04/22/2015- - Stretta treatment to distal esophagus / GE junction and cardia.Three surgical logan were found in the esophagus at the GE junction and removed. Surgical suture was also found at the GE junction without evidence of dehiscence. Grade B GERD / erosive esophagitis. Sleeve gastrectomy with a large-sized pouch, intact staple line, post-operative mucosal scar, and evidence f pyloroplasty. Small gastric polyp, likely hyperplastic vs fundic gland polyp. Small hiatus hernia. Status: Chronic (3) H/O oophorectomy Permanent Comment: left ovary Status: Chronic (4) H/O: hysterectomy Status: Resolved (5) History of bladder surgery Status: Chronic (6) S/P hysterectomy Status: Chronic (7) S/P laparoscopic sleeve gastrectomy Status: Chronic (8) S/P partial gastrectomy Status: Chronic (9) S/P repair of paraesophageal hernia Status: Chronic (10) S/P repair of paraesophageal hernia Permanent Comment: resulted in volvulus, required abdominal exploration Status: Chronic (11) S/P tonsillectomy and adenoidectomy Status: Resolved (12) S/P tonsillectomy and adenoidectomy Status: Chronic Family History Diabetes mellitus MOTHER SISTER FH: aneurysm FH: cancer FH: heart disease FATHER MOTHER Hypertension BROTHER Kidney disease Social History Smoking Status: Former Smoker Alcohol Use: none Drug Use: none Marital Status: single Housing status: lives with family Occupational Status: disabled Immunizations History of Influenza Vaccine: Yes History of Tetanus Vaccine?: Unknown History of Pneumococcal: Unknown History of Hepatitis B Vaccine: Unknown Multi-Drug Resistant Organisms History of MDRO: Yes Type of MDRO: MRSA Allergies Coded Allergies: Amoxicillin (Verified Adverse Reaction, Intermediate, yeast infection, ) NSAIDs (Verified Adverse Reaction, Mild, indegestion, 08/23/16) Rofecoxib (Verified Adverse Reaction, Mild, indigestion, 08/23/16) Scopolamine (Verified Adverse Reaction, Mild, rash from patch, 08/23/16) Home Medications Scheduled Albuterol Sulfate (Proair Respiclick), 2 PUFFS INH QID Dexlansoprazole (Dexilant), 30 MG PO DAILY Digoxin (Digoxin), 0.125 MG PO DAILY Escitalopram (Lexapro), 10 MG PO DAILY Fluticasone Prop/Salmeterol (Advair Diskus 250-50 Mcg/Dose), 1 PUFF INH BID Fosaprepitant Dimeglumine (Emend), 5 ML IV MONTHLY Levothyroxine Sodium (Levothyroxine Sodium), 75 MCG PO DAILY Metoclopramide (Reglan), 10 MG PO ACHS Multivit-Min W/Fe-Fa ( And Iron), 1 TAB PO DAILY Ranitidine Hcl (Zantac), 300 MG PO BID Scheduled PRN Albuterol Sulf (Proventil 0.083% 2.5MG/3ML), 2.5 MG INH Q4H PRN for Wheezing Aluminum Hydroxide-Mag Trisil (Gaviscon), 2 CAP PO TID PRN for Dyspepsia Clonazepam (Klonopin), 0.5 MG PO TID PRN for Anxiety/Agitation Ondansetron Hcl (Zofran), 4 MG PO Q6H PRN for Nausea Oxycodone/Acetaminophen 5MG/325MG (Percocet 5MG/325MG), 1 TAB PO Q6H PRN for Moderate Pain Prochlorperazine Maleate (Compazine), 10 MG PO Q6H PRN for Nausea or Vomiting Review of Systems See above for pertinent positives & negatives. A total of 10 systems reviewed and were otherwise negative. Physical Exam Vital Signs Date Time Temp Pulse Resp B/P Pulse Ox O2 Delivery O2 Flow Rate FiO2 11/02/16 21:21 71 14 151/96 97 Room Air 11/02/16 20:46 82 16 161/97 97 Room Air 11/02/16 19:43 67 17 145/95 98 Room Air 11/02/16 18:00 69 16 148/107 99 Room Air 11/02/16 16:30 63 11/02/16 16:02 36.9 60 20 153/100 97 Room Air General Appearance: + pertinent finding (WD/WN 56 year old female lying in bed in NAD ) Head: normocephalic, atraumatic Eyes: PERRL, EOMI, sclerae normal ENT: hearing grossly normal, pharynx normal Neck: supple, no JVD Respiratory/Chest: chest non-tender, lungs clear, normal breath sounds, no respiratory distress, no accessory muscle use Cardiovascular: regular rate, rhythm, no edema, no gallop, no JVD, no murmur, normal peripheral pulses Abdomen/GI: normal bowel sounds, non tender, soft, no organomegaly Back: normal inspection, no muscle spasm Extremities/Musculoskelatal: no calf tenderness, normal capillary refill, no pedal edema Neurologic/Psych: alert, oriented x 3, + pertinent finding (no focal deficits noted on gross exam ) Skin: normal color, warm/dry, no rash Lymphatic: no adenopathy Diagnostics Laboratory Results Results Past 24 Hours Test 11/02/16 16:45 11/02/16 16:49 11/02/16 19:22 Range/Units White Blood Count 7.76 4.8-10.8 K/uL Red Blood Count 4.42 4.2-5.4 M/uL Hemoglobin 12.6 12.0-16.0 g/dL Hematocrit 37.9 37-47 % Mean Corpuscular Volume 85.7 80-100 fL Mean Corpuscular Hemoglobin 28.5 25-34 pg Mean Corpuscular Hemoglobin Concent 33.2 32-36 g/dl Platelet Count 304 130-400 K/uL Mean Platelet Volume 9.2 7.4-10.4 fL Neutrophils (%) (Auto) 76.3 % Lymphocytes (%) (Auto) 19.6 % Monocytes (%) (Auto) 3.4 % Eosinophils (%) (Auto) 0.3 % Basophils (%) (Auto) 0.3 % Neutrophils # (Auto) 5.93 1.4-6.5 K/uL Lymphocytes # (Auto) 1.52 1.2-3.4 K/uL Monocytes # (Auto) 0.26 0.11-0.59 K/uL Eosinophils # (Auto) 0.02 0-0.5 K/uL Basophils # (Auto) 0.02 0-0.2 K/uL RDW Standard Deviation 45.3 36.4-46.3 fL RDW Coefficient of Variation 14.5 11.5-14.5 % Immature Granulocyte % (Auto) 0.1 % Immature Granulocyte # (Auto) 0.01 0.00-0.02 K/uL Sodium Level 143 136-145 mmol/L Potassium Level 3.7 3.5-5.1 mmol/L Chloride Level 109 98-107 mmol/L Carbon Dioxide Level 22 21-32 mmol/L Anion Gap 12.0 3-11 mmol/L Blood Urea Nitrogen 12 7-18 mg/dl Creatinine 0.92 0.60-1.20 mg/dl Est Creatinine Clear Calc Drug Dose 61.2 ml/min Estimated GFR () 79.6 Estimated GFR (Non- 68.6 BUN/Creatinine Ratio 12.8 10-20 Random Glucose 106 70-99 mg/dl Calcium Level 8.8 8.5-10.1 mg/dl Total Bilirubin 0.4 0.2-1 mg/dl Direct Bilirubin 0.1 0-0.2 mg/dl Aspartate Amino Transf (AST/SGOT) 15 15-37 U/L Alanine Aminotransferase (ALT/SGPT) 11 12-78 U/L Alkaline Phosphatase 115 45-117 U/L Total Protein 6.8 6.4-8.2 gm/dl Albumin 3.5 3.4-5.0 gm/dl Lipase 115 73-393 U/L Prothrombin Time 10.4 9.0-12.0 SECONDS Prothromb Time International Ratio 1.0 0.9-1.1 Activated Partial Thromboplast Time 24.7 21.0-31.0 SECONDS Partial Thromboplastin Ratio 1.0 Urine Color YELLOW Urine Appearance CLEAR CLEAR Urine pH 6.0 4.5-7.5 Urine Specific [place] 1.015 1.000-1.030 Urine Protein NEG NEG Urine Glucose (UA) NEG NEG Urine Ketones 2+ NEG Urine Occult Blood TRACE NEG Urine Nitrite NEG NEG Urine Bilirubin NEG NEG Urine Urobilinogen NEG NEG Urine Leukocyte Esterase NEG NEG Urine WBC (Auto) 1-5 0-5 /hpf Urine RBC (Auto) 0-4 0-4 /hpf Urine Hyaline Casts (Auto) 1-5 0-5 /lpf Urine Epithelial Cells (Auto) 5-10 0-5 /lpf Urine Bacteria (Auto) NEG NEG Diagnostic Radiology CT A/P Per radiologist read: IMPRESSION: 1. Significantly suboptimal examination without oral and IV contrast. 2. There are no acute infectious or inflammatory findings in the abdomen or pelvis. 3. There is no bowel obstruction. 4. Postoperative changes are noted in the stomach, similar to previous. 5. Cardiomegaly with mild ectasia of the ascending thoracic aorta which measures up to 4.1 cm in diameter. Consider nonemergent vascular surgical consult and CT angiogram of the chest for further assessment. 6. Additional findings as above. CXR/KUB Per radiologist read: IMPRESSION: 1. No acute cardiopulmonary abnormality. 2. There are mildly distended and gas-filled loops of proximal small bowel. Air-fluid levels are noted. Gas and stool are present in the colon, and this could represent a nonspecific enteritis or could be seen with a low-grade small bowel obstruction. Clinical correlation will be required. 3. No intraperitoneal free air is seen. EKG Sinus Rhythm with PVCs 67 BPM, QTc 464 Impression Assessment and Plan 56 year old female well known to the hospitalist service presents to the ED complaining of nausea, abdominal pain and dry heaves. Workup essentially negative including CT A/P INTRACTABLE NAUSEA, ABDOMINAL PAIN, DRY HEAVES- known gastroparesis, dumping syndrome -Observation in Med/Surg -workup in ED:, LFTs, lipase, UA unremarkable, no leukocytosis, CT A/P without acute abnormalities -Has monthly emend injections -Was on Erythromycin and patient stopped this herself d/t diarrhea - currently no diarrhea. -Continue outpatient PPI, Reglan, Compazine, Zantac -Zofran, morphine prn -npo except meds for now -IVF hydration -KUB in AM, if negative advance diet as tolerate -CBC, PRP, Mg daily - GI consult placed, follows with Dr. Ridley COPD -stable -continue home inhalers HYPOTHYROIDISM -continue Synthroid DEPRESSION -continue Lexapro, Klonopin H/O PVCs/PACs -continue Digoxin IRON DEFICIENCY ANEMIA -Hgb stable DVT PROPHYLAXIS: SCDs CODE STATUS: FULL CODE DISPO:observation pending further workup Patient seen in collaboration with Dr. Mohr ATTENDING NOTE : pt seen and examined , care co -ordinate with Mena Echeverria PA-C 56 yo f with gastroparesis , recurrent admission with Nausea /vomiting admitted with worsening GI symptom of unable to keep PO intake down , on going nausea , dry heaves Xray of abdomen -no evidence of obstruction mild dilatation of loops of bowel -possible illeus P/E: gen : in distress due to nausea HEENT : sclera non icteric HT regular LUNGS: CTA Abdomen: soft, non tender Ext : no lower ext edema neuro: no focal deficit A/P : Gastroparesis/persisted nausea /vomiting -pt recently started on Emend infusion monthly -got last dose 3 days back -no diarrhea, fever or chills -no evidence of infection -observation in medical floor for supportive care -GI eval requested , pt is known to [facility] GI service Mild dilatation of loops of bowel in Xray of abdomen : -no evidence of obstruction -possible early Ileus due to persisted nausea /vomiting _CT abdomen /pelvis -unremarkable -bowel rest , IVF fluids , antiemetics repeat KUB of abdomen in AM FULL CODE VTE Prophylaxis VTE Risk Assessment Done? Y/N: Yes Risk Level: Moderate
[2016-11-02] MEDS: ONDANSETRON INJ 2 MG/ML 2 ML VIAL IV PRN (22:47)
[2016-11-02] MEDS: SODIUM CHLORIDE 0.9% 1000ML 1,000 ML IV SCH (23:31)
[2016-11-02] MEDS: PROCHLORPERAZINE MALEATE 10 MG TAB PO PRN (23:44)
[2016-11-02 23:55] VITALS: BP 145/100; PULSE 64; TEMP 36.7; O2SAT 97
[2016-11-03] VITALS: O2SAT 97
[2016-11-03] MEDS ORDERED: ZOLPIDEM TARTRATE 5 MG TAB PO PRN (01:15)
[2016-11-03] MEDS: PROMETHAZINE HCL INJ 12.5 MG in SODIUM CHLORIDE 0.9% 50ML 50 ML IV PRN ×3 (01:30→19:50)
[2016-11-03] MEDS: ONDANSETRON INJ 2 MG/ML 2 ML VIAL IV PRN (04:52)
[2016-11-03] MEDS: METOCLOPRAMIDE HCL 10 MG TAB PO SCH ×2 (05:46→12:08)
[2016-11-03 05:48] VITALS: BP 136/95
[2016-11-03] MEDS: LEVOTHYROXINE 75 MCG TAB PO SCH (05:56)
[2016-11-03] MEDS: PROCHLORPERAZINE MALEATE 10 MG TAB PO PRN ×2 (06:43→16:42)
[2016-11-03] MEDS: SODIUM CHLORIDE 0.9% 1000ML 1,000 ML IV SCH ×2 (06:56→16:40)
[2016-11-03 07:32] VITALS: BP 146/93; PULSE 71; TEMP 37.1; O2SAT 98
[2016-11-03] MEDS: PRENATAL VITAMIN TAB PO SCH (07:55)
[2016-11-03] MEDS: FLUTICASONE/SALMETEROL 250/50 (ADVAIR) 14 PUFF/1 INHALER INH SCH ×2 (07:55→19:51)
[2016-11-03] MEDS: ESCITALOPRAM OXALATE 10 MG TAB PO SCH (07:55)
[2016-11-03] MEDS: RANITIDINE HCL 150 MG TAB PO SCH ×2 (07:56→19:55)
[2016-11-03] MEDS: ALBUTEROL HFA 8 GM INHALER INH SCH ×4 (07:56→19:51)
[2016-11-03] MEDS: PANTOprazole SOD 40 MG TAB PO SCH (07:56)
[2016-11-03 08:51] LABS: HEMATOCRIT 38.5 % (37-47); MEAN CELL VOLUME 85.7 fL (80-100); MEAN CORPUSCULAR HEMOGLOBIN 29.2 pg (25-34); MEAN PLATELET VOLUME 9.3 fL (7.4-10.4); PLATELET COUNT 351 K/uL (130-400); RED BLOOD COUNT 4.49 M/uL (4.2-5.4); WHITE BLOOD COUNT 8.81 K/uL (4.8-10.8)
[2016-11-03 09:15] LABS: BUN/CREATININE RATIO 9.1 (10-20); CALCIUM 8.7 mg/dl (8.5-10.1); CREATININE 0.76 mg/dl (0.60-1.20); MAGNESIUM 1.9 mg/dl (1.8-2.4); POTASSIUM 3.7 mmol/L (3.5-5.1)
--- NOTE | 2016-11-03 11:50 | DIAGNOSTIC IMAGING REPORT ---
KUB CLINICAL HISTORY: abdominal pain pain COMPARISON STUDY: No previous studies for comparison. FINDINGS: The soft tissues, psoas shadows, renal outlines and intestinal gas pattern appear normal. There is no evidence for bowel obstruction. No abnormal abdominal calcifications are seen. IMPRESSION: Normal study. Electronically signed by: Mele Bone M.D. 11/03/2016 11:48 AM Dictated Date/Time: 11/03/2016 11:46 AM
--- NOTE | 2016-11-03 12:46 | Medical Consult ---
Consultation Note Consultation Note Attg addendum: I interviewed and examined pt, reviewed chart and labs. Pt with chronic n/v thought to be related to post-op gatsropresis, with frequent admissions for worsening nausea. She is now admitted for similar episode. At present, she is nausea. Her bad is non tender. Labs, CT show no GI pathology. Will try IV Emend infusion; she has had a response to this in the past.
[2016-11-03] MEDS: METOCLOPRAMIDE HCL INJ 5 MG/ML 2 ML VIAL IV. SCH ×2 (15:14→19:52)
[2016-11-03 15:28] VITALS: BP 160/104; PULSE 71; TEMP 37; O2SAT 97
--- NOTE | 2016-11-03 15:36 | Gastrointestinal Consultation ---
Gastrointestinal Consultation Date of Consultation: Nov 03, 2016 Attending Physician: Dr. Malhotra Consulting Physician: Dr. Ridley Reason for Consultation: Nausea/vomiting History of Present Illness Patient is a 56 year old female patient of Dr. Coppola, followed by Dr. Ridley for GERD/gastroparesis. She is S/P distant sleeve gastrectomy for obesity. She presented to the ED yesterday for nausea, vomiting, for which GI is consulted. She began with a sudden onset of severe nausea/vomiting on 11/01 which persisted and she presented to the ED late in the day yesterday. She tells us that this is similar to previous gastroparesis episodes and she denies any hematemesis, melena, hematochezia. She does has some constipation, passing a small formed BM daily. On arrival, non contrast CT was negative for any acute abdominal abnormalities. CBC, CMP were normal as well. Emend was given in the ED w/o improvement of her nausea. Past Medical/Surgical History Medical Problems: (1) Anxiety State Nos Status: Chronic (2) Chronic Obstructive Asthma, Nos Status: Chronic (3) Dehydration Status: Acute (4) Dehydration Status: Acute (5) Dumping syndrome Status: Acute (6) Epigastric abdominal pain Status: Acute (7) Esophagitis Nos Status: Chronic (8) Gastroparesis Status: Chronic (9) Hyperlipidemia Nec/Nos Status: Chronic (10) Hypothyroidism Nos Status: Chronic (11) Intractable nausea and vomiting Status: Acute (12) Intractable nausea and vomiting Status: Acute (13) Intractable nausea and vomiting Status: Acute (14) Intractable vomiting Status: Acute (15) Iron Defic Anemia Nos Status: Chronic (16) Nausea Status: Acute (17) Pernicious Anemia Status: Chronic Surgical Problems: (1) S/P repair of paraesophageal hernia Status: Chronic Past Medical History: 1. Depression 2. COPD 3. Pernicious anemia 4. Obesity S/P sleeve gastrectomy 5. Hiatal hernia 6. Thoracic DDD 7. Carpal Tunnel 8. GERD 9. Gastroparesis 10. Diverticulosis 11. Hypothyroidism Past Surgical History: 1. Total hysterectomy. 2. Bladder surgery. 3. Laparoscopic sleeve gastrectomy, paraesophageal hernia repair. 4. Most recent EGD 12/13/15 Dr. Nunn for nausea/vomiting: Grade I Savory Martinez esophagitis, S/P sleeve gastrectomy, normal duodenum. 5. Most recent colonoscopy 08/14/13 Dr. Bergman: Moderate sigmoid diverticulosis in the sigmoid , ascending and descending colon. Internal hemorrhoids. Family History Diabetes mellitus MOTHER SISTER FH: aneurysm FH: cancer FH: heart disease FATHER MOTHER Hypertension BROTHER Kidney disease Social History Smoking Status: Former Smoker Alcohol Use: none Drug Use: none Marital Status: single Housing Status: lives alone Occupation Status: disabled Allergies Coded Allergies: Amoxicillin (Verified Adverse Reaction, Intermediate, yeast infection, ) NSAIDs (Verified Adverse Reaction, Mild, indegestion, 08/23/16) Rofecoxib (Verified Adverse Reaction, Mild, indigestion, 08/23/16) Scopolamine (Verified Adverse Reaction, Mild, rash from patch, 08/23/16) Current Medications Home Meds and Scripts Medications Dose Route/Sig Max Daily Dose Days Date Category Digoxin 0.125 Mg Tab 0.125 Mg PO DAILY 11/02/16 Reported Proventil 0.083% 2.5MG/3ML (Albuterol Sulf) 2.5 Mg/3 Ml Nebu 2.5 Mg INH Q4H PRN 11/02/16 Reported Proair Respiclick (Albuterol Sulfate) 108 Mcg/Act Aer 2 Puffs INH QID 11/02/16 Reported And Iron ( Multivit-Min W/Fe-Fa) 1 Tab Tab 1 Tab PO DAILY 11/02/16 Reported Dexilant (Dexlansoprazole) 30 Mg Cap 30 Mg PO DAILY 11/02/16 Reported Reglan (Metoclopramide HCl) 10 Mg Tab 10 Mg PO ACHS 10/06/16 Reported Emend (Fosaprepitant Dimeglumine) 150 Mg [place] 5 Ml IV MONTHLY 10/06/16 Reported Percocet 5MG/325MG (Oxycodone/Acetaminophen) Tab 1 Tab PO Q6H PRN 10/06/16 Reported Gaviscon (Aluminum Hydroxide-Mag Trisil) 1 Chw Chw 2 Cap PO TID PRN 08/23/16 Reported Advair Diskus 250-50 Mcg/Dose (Fluticasone Prop/Salmeterol) 14 Puff/1 Inhaler Aerp 1 Puff INH BID 11/24/15 Reported Lexapro (Escitalopram Oxalate) 10 Mg Tab 10 Mg PO DAILY 11/24/15 Reported Zofran (Ondansetron HCl) 4 Mg Tab 4 Mg PO Q6H PRN 07/25/15 Reported Compazine (Prochlorperazine Maleate) 10 Mg Tab 10 Mg PO Q6H PRN 07/25/15 Reported Zantac (Ranitidine Hcl) 300 Mg Tab 300 Mg PO BID 06/22/14 Reported Klonopin (Clonazepam) 0.5 Mg Tab 0.5 Mg PO TID PRN 06/22/14 Reported Levothyroxine Sodium 75 Mcg Tab 75 Mcg PO DAILY 10/31/13 Reported Review of Systems Constitutional: + fatigue, + weakness, No chills, No fever, No sweats, No weight loss Eyes: No eye pain, No redness ENT: No pain on swallowing, No sore throat, No trouble swallowing Respiratory: No cough, No dyspnea on exertion, No shortness of breath, No wheezing Cardiac: No chest pain, No edema, No palpitations Abdomen: + constipation (chroni), + nausea, + pain, + see HPI, + vomiting, No diarrhea Neuro: No balance problems, No memory loss, No numbness/tingling, No vertigo, No weakness Psych: No anxiety, No depression symptoms, No insomnia Heme: No abnormal bleeding/bruising, No night sweats Endo: No excessive thirst, No excessive urination Skin: No itch, No jaundice, No new/changing skin lesions, No rash Physical Exam Date Time Temp Pulse Resp B/P Pulse Ox O2 Delivery O2 Flow Rate FiO2 11/03/16 15:15 66 11/03/16 08:00 Room Air 11/03/16 07:32 37.1 71 20 146/93 98 Room Air 11/03/16 05:48 136/95 11/03/16 00:00 97 Room Air 11/02/16 23:55 36.7 64 20 145/100 97 Room Air 11/02/16 22:12 Room Air 11/02/16 21:21 71 14 151/96 97 Room Air 11/02/16 20:46 82 16 161/97 97 Room Air 11/02/16 19:43 67 17 145/95 98 Room Air 11/02/16 18:00 69 16 148/107 99 Room Air 11/02/16 16:30 63 11/02/16 16:02 36.9 60 20 153/100 97 Room Air General Appearance: no apparent distress Eyes: normal inspection, EOMI Neck: supple, no adenopathy, thyroid normal Respiratory/Chest: chest non-tender, lungs clear, normal breath sounds, no accessory muscle use Cardiovascular: regular rate, rhythm, no JVD, no murmur Abdomen: normal bowel sounds, non tender, soft, no organomegaly Extremities: normal inspection, no pedal edema, normal capillary refill Neurologic/Psych: alert, normal mood/affect, oriented x 3 Skin: normal color, no jaundice, warm/dry, no rash Laboratory Results Last 24 Hours Test 11/02/16 16:45 11/02/16 16:49 11/02/16 19:22 11/03/16 08:25 White Blood Count 7.76 K/uL 8.81 K/uL Red Blood Count 4.42 M/uL 4.49 M/uL Hemoglobin 12.6 g/dL 13.1 g/dL Hematocrit 37.9 % 38.5 % Mean Corpuscular Volume 85.7 fL 85.7 fL Mean Corpuscular Hemoglobin 28.5 pg 29.2 pg Mean Corpuscular Hemoglobin Concent 33.2 g/dl 34.0 g/dl Platelet Count 304 K/uL 351 K/uL Mean Platelet Volume 9.2 fL 9.3 fL Neutrophils (%) (Auto) 76.3 % Lymphocytes (%) (Auto) 19.6 % Monocytes (%) (Auto) 3.4 % Eosinophils (%) (Auto) 0.3 % Basophils (%) (Auto) 0.3 % Neutrophils # (Auto) 5.93 K/uL Lymphocytes # (Auto) 1.52 K/uL Monocytes # (Auto) 0.26 K/uL Eosinophils # (Auto) 0.02 K/uL Basophils # (Auto) 0.02 K/uL RDW Standard Deviation 45.3 fL 45.5 fL RDW Coefficient of Variation 14.5 % 14.4 % Immature Granulocyte % (Auto) 0.1 % Immature Granulocyte # (Auto) 0.01 K/uL Sodium Level 143 mmol/L 136 mmol/L Potassium Level 3.7 mmol/L 3.7 mmol/L Chloride Level 109 mmol/L 102 mmol/L Carbon Dioxide Level 22 mmol/L 24 mmol/L Anion Gap 12.0 mmol/L 10.0 mmol/L Blood Urea Nitrogen 12 mg/dl 7 mg/dl Creatinine 0.92 mg/dl 0.76 mg/dl Est Creatinine Clear Calc Drug Dose 61.2 ml/min 74.1 ml/min Estimated GFR () 79.6 100.2 Estimated GFR (Non- 68.6 86.5 BUN/Creatinine Ratio 12.8 9.1 Random Glucose 106 mg/dl 127 mg/dl Calcium Level 8.8 mg/dl 8.7 mg/dl Total Bilirubin 0.4 mg/dl Direct Bilirubin 0.1 mg/dl Aspartate Amino Transf (AST/SGOT) 15 U/L Alanine Aminotransferase (ALT/SGPT) 11 U/L Alkaline Phosphatase 115 U/L Total Protein 6.8 gm/dl Albumin 3.5 gm/dl Lipase 115 U/L Prothrombin Time 10.4 SECONDS Prothromb Time International Ratio 1.0 Activated Partial Thromboplast Time 24.7 SECONDS Partial Thromboplastin Ratio 1.0 Urine Color YELLOW Urine Appearance CLEAR Urine pH 6.0 Urine Specific [place] 1.015 Urine Protein NEG Urine Glucose (UA) NEG Urine Ketones 2+ Urine Occult Blood TRACE Urine Nitrite NEG Urine Bilirubin NEG Urine Urobilinogen NEG Urine Leukocyte Esterase NEG Urine WBC (Auto) 1-5 /hpf Urine RBC (Auto) 0-4 /hpf Urine Hyaline Casts (Auto) 1-5 /lpf Urine Epithelial Cells (Auto) 5-10 /lpf Urine Bacteria (Auto) NEG Magnesium Level 1.9 mg/dl Impression Patient is a 56 year old female with recurrent episodes of intractable nausea/ vomiting thought secondary to gastroparesis. Plan 1. Agree with Reglan, Phenergan prn, Zofran prn. 2. Will consider repeat dose of Emend in 2 more days if nausea persists. 3. Will try adding erythromycin 250mg Q 6 hrs x 48 hrs. Attg addendum: I interviewed landy rhoades pt, reviewed chart and labs. Please see my separate note.
[2016-11-03] MEDS ORDERED: DIGOXIN 0.125 MG TAB PO SCH (16:00)
[2016-11-03] MEDS: ERYTHROMYCIN IV 250 MG in SODIUM CHLORIDE 0.9% 250ML 250 ML IV SCH ×2 (16:40→22:00)
--- NOTE | 2016-11-03 17:04 | Progress Note ---
Internal Med Progress Note Date of Service: Nov 03, 2016. Provider Documentation: SUBJECTIVE: The patient was seen and examined Still has nausea but no vomiting OBJECTIVE: Vital Signs-as noted below Exam: General-No distress at rest Eyes-Normal ENT-normal Neck-Supple Lungs-Clear to auscultate bilaterally Heart-Regular,no murmur appreciated Abdomen-Benign,mildly tender epigastrium Extremities-No edema Neuro-AAOx3 Lab data as noted below. 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 - LFTs, lipase, UA unremarkable, no leukocytosis, CT A/P without acute abnormalities -Has monthly emend injections -Continue outpatient PPI, Reglan, Compazine, Zantac -Zofran, morphine prn -IVF hydration -KUB in AM, if negative advance diet as tolerate -Appreciate GI input -Consideration of Erythromycin and early administration of Amend COPD -stable -continue home inhalers HYPOTHYROIDISM -continue Synthroid DEPRESSION -continue Lexapro, Klonopin H/O PVCs/PACs -continue Digoxin IRON DEFICIENCY ANEMIA -Hgb stable DVT PROPHYLAXIS: SCDs CODE STATUS: FULL CODE DISPO Awaited Vital Signs: Date Time Temp Pulse Resp B/P Pulse Ox O2 Delivery O2 Flow Rate FiO2 11/03/16 15:28 37.0 71 18 160/104 97 Room Air 11/03/16 15:15 66 11/03/16 08:00 Room Air 11/03/16 07:32 37.1 71 20 146/93 98 Room Air 11/03/16 05:48 136/95 11/03/16 00:00 97 Room Air 11/02/16 23:55 36.7 64 20 145/100 97 Room Air 11/02/16 22:12 Room Air 11/02/16 21:21 71 14 151/96 97 Room Air 11/02/16 20:46 82 16 161/97 97 Room Air 11/02/16 19:43 67 17 145/95 98 Room Air 11/02/16 18:00 69 16 148/107 99 Room Air Lab Results: Results Past 24 Hours Test 11/02/16 19:22 11/03/16 08:25 11/03/16 16:24 Range/Units Urine Color YELLOW Urine Appearance CLEAR CLEAR Urine pH 6.0 4.5-7.5 Urine Specific [place] 1.015 1.000-1.030 Urine Protein NEG NEG Urine Glucose (UA) NEG NEG Urine Ketones 2+ NEG Urine Occult Blood TRACE NEG Urine Nitrite NEG NEG Urine Bilirubin NEG NEG Urine Urobilinogen NEG NEG Urine Leukocyte Esterase NEG NEG Urine WBC (Auto) 1-5 0-5 /hpf Urine RBC (Auto) 0-4 0-4 /hpf Urine Hyaline Casts (Auto) 1-5 0-5 /lpf Urine Epithelial Cells (Auto) 5-10 0-5 /lpf Urine Bacteria (Auto) NEG NEG White Blood Count 8.81 4.8-10.8 K/uL Red Blood Count 4.49 4.2-5.4 M/uL Hemoglobin 13.1 12.0-16.0 g/dL Hematocrit 38.5 37-47 % Mean Corpuscular Volume 85.7 80-100 fL Mean Corpuscular Hemoglobin 29.2 25-34 pg Mean Corpuscular Hemoglobin Concent 34.0 32-36 g/dl RDW Standard Deviation 45.5 36.4-46.3 fL RDW Coefficient of Variation 14.4 11.5-14.5 % Platelet Count 351 130-400 K/uL Mean Platelet Volume 9.3 7.4-10.4 fL Sodium Level 136 136-145 mmol/L Potassium Level 3.7 3.5-5.1 mmol/L Chloride Level 102 98-107 mmol/L Carbon Dioxide Level 24 21-32 mmol/L Anion Gap 10.0 3-11 mmol/L Blood Urea Nitrogen 7 7-18 mg/dl Creatinine 0.76 0.60-1.20 mg/dl Est Creatinine Clear Calc Drug Dose 74.1 ml/min Estimated GFR () 100.2 Estimated GFR (Non- 86.5 BUN/Creatinine Ratio 9.1 10-20 Random Glucose 127 70-99 mg/dl Calcium Level 8.7 8.5-10.1 mg/dl Magnesium Level 1.9 1.8-2.4 mg/dl Bedside Glucose 129 70-90 mg/dl
[2016-11-03 23:36] VITALS: BP 116/80; PULSE 77; TEMP 37.1; O2SAT 94
[2016-11-04] VITALS: O2SAT 97
[2016-11-04] MEDS: PROCHLORPERAZINE MALEATE 10 MG TAB PO PRN (00:39)
[2016-11-04] MEDS: SODIUM CHLORIDE 0.9% 1000ML 1,000 ML IV SCH ×2 (03:10→12:41)
[2016-11-04] MEDS: LEVOTHYROXINE 75 MCG TAB PO SCH (06:30)
[2016-11-04 06:55] LABS: BUN/CREATININE RATIO 9.2 (10-20); CALCIUM 8.4 mg/dl (8.5-10.1); CREATININE 0.87 mg/dl (0.60-1.20); MAGNESIUM 2.1 mg/dl (1.8-2.4); POTASSIUM 3.5 mmol/L (3.5-5.1)
[2016-11-04] MEDS: ESCITALOPRAM OXALATE 10 MG TAB PO SCH (07:44)
[2016-11-04] MEDS: PANTOprazole SOD 40 MG TAB PO SCH (07:44)
[2016-11-04] MEDS: RANITIDINE HCL 150 MG TAB PO SCH (07:44)
[2016-11-04] MEDS: PRENATAL VITAMIN TAB PO SCH (07:45)
[2016-11-04] MEDS: ERYTHROMYCIN IV 250 MG in SODIUM CHLORIDE 0.9% 250ML 250 ML IV SCH (07:45)
[2016-11-04] MEDS: ALBUTEROL HFA 8 GM INHALER INH SCH ×2 (07:45→12:00)
[2016-11-04] MEDS: FLUTICASONE/SALMETEROL 250/50 (ADVAIR) 14 PUFF/1 INHALER INH SCH (07:45)
[2016-11-04] MEDS: METOCLOPRAMIDE HCL INJ 5 MG/ML 2 ML VIAL IV. SCH ×2 (07:46→14:00)
[2016-11-04 08:01] VITALS: BP 102/69; PULSE 55; TEMP 37.2; O2SAT 96
--- NOTE | 2016-11-04 11:09 | Progress Note ---
Internal Med Progress Note Date of Service: Nov 04, 2016. Provider Documentation: SUBJECTIVE: The patient was seen and examined No more Nausea and or vomiting No abdominal pain No Fever,chills or rigors OBJECTIVE: Vital Signs-as noted below Exam: General-No distress at rest Eyes-Normal ENT-normal Neck-Supple Lungs-Clear to auscultate bilaterally Heart-Regular,no murmur appreciated Abdomen-Benign,non tender Extremities-No edema Neuro-AAOx3 Lab data as noted below. 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 - LFTs, lipase, UA unremarkable, no leukocytosis, CT A/P without acute abnormalities -Has monthly emend injections -Continue outpatient PPI, Reglan, Compazine, Zantac -Zofran, morphine prn -IVF hydration -KUB in AM, if negative advance diet as tolerate -Appreciate GI input -Erythromycin has been started -Much better today -Advance diet COPD -stable -continue home inhalers HYPOTHYROIDISM -continue Synthroid DEPRESSION -continue Lexapro, Klonopin H/O PVCs/PACs -continue Digoxin IRON DEFICIENCY ANEMIA -Hgb stable DVT PROPHYLAXIS: SCDs CODE STATUS: FULL CODE DISPO Likely discharge tomorrow on completion of the Erythromycin drip Vital Signs: Date Time Temp Pulse Resp B/P Pulse Ox O2 Delivery O2 Flow Rate FiO2 11/04/16 08:01 37.2 55 16 102/69 96 Room Air 11/04/16 08:00 Room Air 11/04/16 00:00 97 Room Air 11/03/16 23:36 37.1 77 18 116/80 94 Room Air 11/03/16 16:00 Room Air 11/03/16 15:28 37.0 71 18 160/104 97 Room Air 11/03/16 15:15 66 Lab Results: Results Past 24 Hours Test 11/03/16 16:24 11/04/16 06:00 Range/Units Bedside Glucose 129 70-90 mg/dl Sodium Level 142 136-145 mmol/L Potassium Level 3.5 3.5-5.1 mmol/L Chloride Level 108 98-107 mmol/L Carbon Dioxide Level 25 21-32 mmol/L Anion Gap 9.0 3-11 mmol/L Blood Urea Nitrogen 8 7-18 mg/dl Creatinine 0.87 0.60-1.20 mg/dl Est Creatinine Clear Calc Drug Dose 64.7 ml/min Estimated GFR () 85.1 Estimated GFR (Non- 73.4 BUN/Creatinine Ratio 9.2 10-20 Random Glucose 83 70-99 mg/dl Calcium Level 8.4 8.5-10.1 mg/dl Magnesium Level 2.1 1.8-2.4 mg/dl
--- NOTE | 2016-11-04 12:23 | GASTROENTEROLOGY PROGRESS NOTE ---
DATE: 11/04/2016 DATE: 11/04/2016. Gastroenterology progress note in cross coverage for [facility]. SUBJECTIVE: I had the pleasure of seeing Anne Delarosa today at her bedside. She states that she is feeling much better than when she arrived with epigastric pain secondary to her gastroparesis. She denies any abdominal pain at present and is tolerating a full liquid diet at present. She asks to go home, stating that she is feeling much improved. PHYSICAL EXAMINATION: VITAL SIGNS: Temp 37.2, pulse 55, respirations 16, blood pressure 102/69, pulse ox 96% on room air. GENERAL EXAMINATION: She is alert, awake, cooperative, in no acute distress. ABDOMEN: Soft, nontender, nondistended. Positive bowel sounds. LABORATORY STUDIES: From today include a sodium 142, potassium 3.5, chloride 108, bicarb 25, BUN 8, creatinine 0.87 and blood glucose of 83. IMPRESSION: A 56-year-old female who presented with epigastric pain secondary to gastroparesis with improved symptoms. PLAN: I would recommend that the patient be continued on her current medications. She does take PPI therapy as well as Reglan therapy and does receive Emend once monthly as an outpatient. I would recommend that she follow up with [facility] upon discharge. I will follow her clinical course while she is hospitalized and make further recommendations as needed. CANDELARIO
--- NOTE | 2016-11-04 14:16 | Discharge Instructions ---
Discharge Instructions Admission Reason for Admission: Epigastric Abdominal Pain Discharge Discharge Diagnosis / Problem: Gastroparesis,Intractible Nausea Discharge Goals Goal(s): Prevent Disease Progression Activity Recommendations Activity Limitations: resume your previous activity . Instructions / Follow-Up Instructions / Follow-Up Your Doctor's office will call with appointment Current Hospital Diet Patient's current hospital diet: Regular Diet Discharge Diet Recommended Diet: Regular Diet Pending Studies Studies pending at discharge: no Medical Emergencies . Who to Call and When: Medical Emergencies: If at any time you feel your situation is an emergency, please call 911 immediately. . Non-Emergent Contact Non-Emergency issues call your: Primary Care Provider . Past History Medical & Surgical History: (1) Pemphigus vulgaris (2) GERD (gastroesophageal reflux disease) (3) Anxiety (4) Depression (5) Gastroparesis (6) COPD (chronic obstructive pulmonary disease) (7) Asthma (8) Anemia, iron deficiency (9) S/P laparoscopic sleeve gastrectomy (10) S/P hysterectomy (11) S/P repair of paraesophageal hernia (12) S/P tonsillectomy and adenoidectomy (13) H/O esophagogastroduodenoscopy . "Provider Documentation" section prepared by Rosi Malhotra. VTE Core Measure Inpt VTE Proph given/why not?: SCD's
[2016-11-04 14:40] VITALS: BP 102/69; PULSE 55; TEMP 37.2; O2SAT 96
--- NOTE | 2016-11-09 13:20 | Discharge Summary ---
Discharge Summary Admission Date: Nov 02, 2016 at 21:59 Discharge Date: Nov 04, 2016 Discharge Disposition: Home Principal Diagnosis: Gastroperesis, Intractable vomiting Secondary Diagnoses/Problems: Please see H&P Consultations: GI Medication Reconciliation Continued Medications: Albuterol Sulf (Proventil 0.083% 2.5MG/3ML) 2.5 Mg/3 Ml Nebu 2.5 MG INH Q4H PRN for Wheezing, EA Albuterol Sulfate (Proair Respiclick) 108 Mcg/Act Aer 2 PUFFS INH QID Aluminum Hydroxide-Mag Trisil (Gaviscon) 1 Chw Chw 2 CAP PO TID PRN for Dyspepsia Clonazepam (Klonopin) 0.5 Mg Tab 0.5 MG PO TID PRN for Anxiety/Agitation Dexlansoprazole (Dexilant) 30 Mg Cap 30 MG PO DAILY Digoxin (Digoxin) 0.125 Mg Tab 0.125 MG PO DAILY Escitalopram (Lexapro) 10 Mg Tab 10 MG PO DAILY, TAB Fluticasone Prop/Salmeterol (Advair Diskus 250-50 Mcg/Dose) 14 Puff/1 Inhaler Aerp 1 PUFF INH BID Fosaprepitant Dimeglumine (Emend) 150 Mg Rosalia 5 ML IV MONTHLY Levothyroxine Sodium (Levothyroxine Sodium) 75 Mcg Tab 75 MCG PO DAILY Metoclopramide (Reglan) 10 Mg Tab 10 MG PO ACHS, TAB Ondansetron Hcl (Zofran) 4 Mg Tab 4 MG PO Q6H PRN for Nausea, TAB Oxycodone/Acetaminophen 5MG/325MG (Percocet 5MG/325MG) Tab 1 TAB PO Q6H PRN for Moderate Pain, TAB Multivit-Min W/Fe-Fa ( And Iron) 1 Tab Tab 1 TAB PO DAILY Prochlorperazine Maleate (Compazine) 10 Mg Tab 10 MG PO Q6H PRN for Nausea or Vomiting, TAB Ranitidine Hcl (Zantac) 300 Mg Tab 300 MG PO BID Admission Information HPI (per Admitting provider): Patient seen and examined. 56 year old female with PMHx of Gastroparesis, Dumping syndrome, COPD, MIGUEL , Depression, hypothyroidism, and H/O PVCs presents to the ED complaining of nausea x 1 day. Patient reports that she felt well when she went to bed last night but that today she woke up with nausea and associated dry heaving. She states this has persisted all day. She reports this is like her other "gastroparesis" attacks. She states she has some mild abdominal pain as well that is like her GERD. She denies fevers, chills, URI symptoms, chest pain, SOB, palpitations, dysuria, diarrhea, constipation, calf pain and edema. Denies new or unusual foods. She was recently admitted last month for similar symptoms and started on erythromycin which she has stopped d/ t diarrhea. She is on monthly emend injections last one on 10/30. In the ED, workup is essentially negative including KUB, CT A/P, PRP, CBC. She received Ativan, Fentanyl, emend, morphine, Zofran and promethazine with minimal relief. She will be observed for further workup and treatment. Past Medical/Surgical History Medical Problems: (1) Anemia, iron deficiency Status: Chronic (2) Anxiety Status: Chronic (3) Anxiety State Nos Status: Chronic (4) Asthma Status: Chronic (5) Chronic Obstructive Asthma, Nos Status: Chronic (6) COPD (chronic obstructive pulmonary disease) Status: Chronic (7) Depression Status: Chronic (8) Diverticulosis Status: Chronic (9) Esophagitis Nos Status: Chronic (10) Frequent PVCs Status: Chronic (11) Gastroparesis Status: Chronic (12) GERD (gastroesophageal reflux disease) Status: Chronic (13) Hyperlipidemia Nec/Nos Status: Chronic (14) Hypothyroidism Status: Chronic (15) Hypothyroidism Nos Status: Chronic (16) Iron Defic Anemia Nos Status: Chronic (17) Mitral regurgitation Permanent Comment: moderate per echo 09/21/15 Status: Chronic (18) MRSA bacteremia Status: Resolved (19) Neuropathy Status: Chronic (20) Pemphigus vulgaris Status: Chronic (21) Pernicious anemia Status: Chronic (22) Pernicious Anemia Status: Chronic (23) Premature atrial contractions Status: Chronic (24) Tobacco abuse Status: Chronic Surgical Problems: (1) H/O colonoscopy Permanent Comment: 08/14/2013- Moderate diverticulosis in the sigmoid colon, in the descending colon and in the ascending colon. Internal hemorrhoids. Normal mucosa in the entire examined colon. Biopsied. Status: Chronic (2) H/O esophagogastroduodenoscopy Permanent Comment: 04/22/2015- - Stretta treatment to distal esophagus / GE junction and cardia.Three surgical logan were found in the esophagus at the GE junction and removed. Surgical suture was also found at the GE junction without evidence of dehiscence. Grade B GERD / erosive esophagitis. Sleeve gastrectomy with a large-sized pouch, intact staple line, post-operative mucosal scar, and evidence f pyloroplasty. Small gastric polyp, likely hyperplastic vs fundic gland polyp. Small hiatus hernia. Status: Chronic (3) H/O oophorectomy Permanent Comment: left ovary Status: Chronic (4) H/O: hysterectomy Status: Resolved (5) History of bladder surgery Status: Chronic (6) S/P hysterectomy Status: Chronic (7) S/P laparoscopic sleeve gastrectomy Status: Chronic (8) S/P partial gastrectomy Status: Chronic (9) S/P repair of paraesophageal hernia Status: Chronic (10) S/P repair of paraesophageal hernia Permanent Comment: resulted in volvulus, required abdominal exploration Status: Chronic (11) S/P tonsillectomy and adenoidectomy Status: Resolved (12) S/P tonsillectomy and adenoidectomy Status: Chronic Family History Diabetes mellitus MOTHER SISTER FH: aneurysm FH: cancer FH: heart disease FATHER MOTHER Hypertension BROTHER Kidney disease Social History Smoking Status: Former Smoker Alcohol Use: none Drug Use: none Marital Status: single Housing status: lives with family Occupational Status: disabled Immunizations History of Influenza Vaccine: Yes History of Tetanus Vaccine?: Unknown History of Pneumococcal: Unknown History of Hepatitis B Vaccine: Unknown Multi-Drug Resistant Organisms History of MDRO: Yes Type of MDRO: MRSA Allergies Coded Allergies: Amoxicillin (Verified Adverse Reaction, Intermediate, yeast infection, ) NSAIDs (Verified Adverse Reaction, Mild, indegestion, 08/23/16) Rofecoxib (Verified Adverse Reaction, Mild, indigestion, 08/23/16) Scopolamine (Verified Adverse Reaction, Mild, rash from patch, 08/23/16) Home Medications Scheduled Albuterol Sulfate (Proair Respiclick), 2 PUFFS INH QID Dexlansoprazole (Dexilant), 30 MG PO DAILY Digoxin (Digoxin), 0.125 MG PO DAILY Escitalopram (Lexapro), 10 MG PO DAILY Fluticasone Prop/Salmeterol (Advair Diskus 250-50 Mcg/Dose), 1 PUFF INH BID Fosaprepitant Dimeglumine (Emend), 5 ML IV MONTHLY Levothyroxine Sodium (Levothyroxine Sodium), 75 MCG PO DAILY Metoclopramide (Reglan), 10 MG PO ACHS Multivit-Min W/Fe-Fa ( And Iron), 1 TAB PO DAILY Ranitidine Hcl (Zantac), 300 MG PO BID Scheduled PRN Albuterol Sulf (Proventil 0.083% 2.5MG/3ML), 2.5 MG INH Q4H PRN for Wheezing Aluminum Hydroxide-Mag Trisil (Gaviscon), 2 CAP PO TID PRN for Dyspepsia Clonazepam (Klonopin), 0.5 MG PO TID PRN for Anxiety/Agitation Ondansetron Hcl (Zofran), 4 MG PO Q6H PRN for Nausea Oxycodone/Acetaminophen 5MG/325MG (Percocet 5MG/325MG), 1 TAB PO Q6H PRN for Moderate Pain Prochlorperazine Maleate (Compazine), 10 MG PO Q6H PRN for Nausea or Vomiting Review of Systems See above for pertinent positives & negatives. A total of 10 systems reviewed and were otherwise negative. Physical Ex - H&P Physical Exam Vital Signs Date Time Temp Pulse Resp B/P Pulse Ox O2 Delivery O2 Flow Rate FiO2 11/02/16 21:21 71 14 151/96 97 Room Air 11/02/16 20:46 82 16 161/97 97 Room Air 11/02/16 19:43 67 17 145/95 98 Room Air 11/02/16 18:00 69 16 148/107 99 Room Air 11/02/16 16:30 63 11/02/16 16:02 36.9 60 20 153/100 97 Room Air General Appearance: + pertinent finding (WD/WN 56 year old female lying in bed in NAD ) Head: normocephalic, atraumatic Eyes: PERRL, EOMI, sclerae normal ENT: hearing grossly normal, pharynx normal Neck: supple, no JVD Respiratory/Chest: chest non-tender, lungs clear, normal breath sounds, no respiratory distress, no accessory muscle use Cardiovascular: regular rate, rhythm, no edema, no gallop, no JVD, no murmur, normal peripheral pulses Abdomen/GI: normal bowel sounds, non tender, soft, no organomegaly Back: normal inspection, no muscle spasm Extremities/Musculoskelatal: no calf tenderness, normal capillary refill, no pedal edema Neurologic/Psych: alert, oriented x 3, + pertinent finding (no focal deficits noted on gross exam ) Skin: normal color, warm/dry, no rash Lymphatic: no adenopathy Diagnostics - H&P Diagnostics Laboratory Results Results Past 24 Hours Test 11/02/16 16:45 11/02/16 16:49 11/02/16 19:22 Range/Units White Blood Count 7.76 4.8-10.8 K/uL Red Blood Count 4.42 4.2-5.4 M/uL Hemoglobin 12.6 12.0-16.0 g/dL Hematocrit 37.9 37-47 % Mean Corpuscular Volume 85.7 80-100 fL Mean Corpuscular Hemoglobin 28.5 25-34 pg Mean Corpuscular Hemoglobin Concent 33.2 32-36 g/dl Platelet Count 304 130-400 K/uL Mean Platelet Volume 9.2 7.4-10.4 fL Neutrophils (%) (Auto) 76.3 % Lymphocytes (%) (Auto) 19.6 % Monocytes (%) (Auto) 3.4 % Eosinophils (%) (Auto) 0.3 % Basophils (%) (Auto) 0.3 % Neutrophils # (Auto) 5.93 1.4-6.5 K/uL Lymphocytes # (Auto) 1.52 1.2-3.4 K/uL Monocytes # (Auto) 0.26 0.11-0.59 K/uL Eosinophils # (Auto) 0.02 0-0.5 K/uL Basophils # (Auto) 0.02 0-0.2 K/uL RDW Standard Deviation 45.3 36.4-46.3 fL RDW Coefficient of Variation 14.5 11.5-14.5 % Immature Granulocyte % (Auto) 0.1 % Immature Granulocyte # (Auto) 0.01 0.00-0.02 K/uL Sodium Level 143 136-145 mmol/L Potassium Level 3.7 3.5-5.1 mmol/L Chloride Level 109 98-107 mmol/L Carbon Dioxide Level 22 21-32 mmol/L Anion Gap 12.0 3-11 mmol/L Blood Urea Nitrogen 12 7-18 mg/dl Creatinine 0.92 0.60-1.20 mg/dl Est Creatinine Clear Calc Drug Dose 61.2 ml/min Estimated GFR () 79.6 Estimated GFR (Non- 68.6 BUN/Creatinine Ratio 12.8 10-20 Random Glucose 106 70-99 mg/dl Calcium Level 8.8 8.5-10.1 mg/dl Total Bilirubin 0.4 0.2-1 mg/dl Direct Bilirubin 0.1 0-0.2 mg/dl Aspartate Amino Transf (AST/SGOT) 15 15-37 U/L Alanine Aminotransferase (ALT/SGPT) 11 12-78 U/L Alkaline Phosphatase 115 45-117 U/L Total Protein 6.8 6.4-8.2 gm/dl Albumin 3.5 3.4-5.0 gm/dl Lipase 115 73-393 U/L Prothrombin Time 10.4 9.0-12.0 SECONDS Prothromb Time International Ratio 1.0 0.9-1.1 Activated Partial Thromboplast Time 24.7 21.0-31.0 SECONDS Partial Thromboplastin Ratio 1.0 Urine Color YELLOW Urine Appearance CLEAR CLEAR Urine pH 6.0 4.5-7.5 Urine Specific [place] 1.015 1.000-1.030 Urine Protein NEG NEG Urine Glucose (UA) NEG NEG Urine Ketones 2+ NEG Urine Occult Blood TRACE NEG Urine Nitrite NEG NEG Urine Bilirubin NEG NEG Urine Urobilinogen NEG NEG Urine Leukocyte Esterase NEG NEG Urine WBC (Auto) 1-5 0-5 /hpf Urine RBC (Auto) 0-4 0-4 /hpf Urine Hyaline Casts (Auto) 1-5 0-5 /lpf Urine Epithelial Cells (Auto) 5-10 0-5 /lpf Urine Bacteria (Auto) NEG NEG Diagnostic Radiology CT A/P Per radiologist read: IMPRESSION: 1. Significantly suboptimal examination without oral and IV contrast. 2. There are no acute infectious or inflammatory findings in the abdomen or pelvis. 3. There is no bowel obstruction. 4. Postoperative changes are noted in the stomach, similar to previous. 5. Cardiomegaly with mild ectasia of the ascending thoracic aorta which measures up to 4.1 cm in diameter. Consider nonemergent vascular surgical consult and CT angiogram of the chest for further assessment. 6. Additional findings as above. CXR/KUB Per radiologist read: IMPRESSION: 1. No acute cardiopulmonary abnormality. 2. There are mildly distended and gas-filled loops of proximal small bowel. Air-fluid levels are noted. Gas and stool are present in the colon, and this could represent a nonspecific enteritis or could be seen with a low-grade small bowel obstruction. Clinical correlation will be required. 3. No intraperitoneal free air is seen. EKG Sinus Rhythm with PVCs 67 BPM, QTc 464 Impression - H&P Impression Assessment and Plan 56 year old female well known to the hospitalist service presents to the ED complaining of nausea, abdominal pain and dry heaves. Workup essentially negative including CT A/P INTRACTABLE NAUSEA, ABDOMINAL PAIN, DRY HEAVES- known gastroparesis, dumping syndrome -Observation in Med/Surg -workup in ED:, LFTs, lipase, UA unremarkable, no leukocytosis, CT A/P without acute abnormalities -Has monthly emend injections -Was on Erythromycin and patient stopped this herself d/t diarrhea - currently no diarrhea. -Continue outpatient PPI, Reglan, Compazine, Zantac -Zofran, morphine prn -npo except meds for now -IVF hydration -KUB in AM, if negative advance diet as tolerate -CBC, PRP, Mg daily - GI consult placed, follows with Dr. Ridley COPD -stable -continue home inhalers HYPOTHYROIDISM -continue Synthroid DEPRESSION -continue Lexapro, Klonopin H/O PVCs/PACs -continue Digoxin IRON DEFICIENCY ANEMIA -Hgb stable DVT PROPHYLAXIS: SCDs CODE STATUS: FULL CODE DISPO:observation pending further workup Patient seen in collaboration with Dr. Mohr ATTENDING NOTE : pt seen and examined , care co -ordinate with Mena Echeverria PA-C 56 yo f with gastroparesis , recurrent admission with Nausea /vomiting admitted with worsening GI symptom of unable to keep PO intake down , on going nausea , dry heaves Xray of abdomen -no evidence of obstruction mild dilatation of loops of bowel -possible illeus P/E: gen : in distress due to nausea HEENT : sclera non icteric HT regular LUNGS: CTA Abdomen: soft, non tender Ext : no lower ext edema neuro: no focal deficit A/P : Gastroparesis/persisted nausea /vomiting -pt recently started on Emend infusion monthly -got last dose 3 days back -no diarrhea, fever or chills -no evidence of infection -observation in medical floor for supportive care -GI eval requested , pt is known to [facility] GI service Mild dilatation of loops of bowel in Xray of abdomen : -no evidence of obstruction -possible early Ileus due to persisted nausea /vomiting _CT abdomen /pelvis -unremarkable -bowel rest , IVF fluids , antiemetics repeat KUB of abdomen in AM FULL CODE VTE Prophylaxis VTE Risk Assessment Done? Y/N: Yes Risk Level: Moderate Physical Exam (per Admitting): General Appearance: + pertinent finding (WD/WN 56 year old female lying in bed in NAD ) Head: normocephalic, atraumatic Eyes: PERRL, EOMI, sclerae normal ENT: hearing grossly normal, pharynx normal Neck: supple, no JVD Respiratory/Chest: chest non-tender, lungs clear, normal breath sounds, no respiratory distress, no accessory muscle use Cardiovascular: regular rate, rhythm, no edema, no gallop, no JVD, no murmur , normal peripheral pulses Abdomen/GI: normal bowel sounds, non tender, soft, no organomegaly Back: normal inspection, no muscle spasm Extremities/Musculoskelatal: no calf tenderness, normal capillary refill, no pedal edema Neurologic/Psych: alert, oriented x 3, + pertinent finding (no focal deficits noted on gross exam ) Skin: normal color, warm/dry, no rash Lymphatic: no adenopathy Hospital Course GASTROPARESIS HISTORY OF DUMPING SYNDROME INTRACTABLE NAUSEA, ABDOMINAL PAIN, DRY HEAVES SECONDARY - LFTs, lipase, UA unremarkable, no leukocytosis, CT A/P without acute abnormalities -Has monthly emend injections -Continue outpatient PPI, Reglan, Compazine, Zantac -Zofran, morphine prn -IVF hydration -KUB in AM, if negative advance diet as tolerate -Appreciate GI input -Erythromycin has been started -Much better today -Advance diet COPD -stable -continue home inhalers HYPOTHYROIDISM -continue Synthroid DEPRESSION -continue Lexapro, Klonopin H/O PVCs/PACs -continue Digoxin IRON DEFICIENCY ANEMIA -Hgb stable DVT PROPHYLAXIS: SCDs CODE STATUS: FULL CODE DISPO Likely discharge tomorrow on completion of the Erythromycin drip Total time spent on discharge = This includes examination of the patient, discharge planning, medication reconciliation, and communication with other providers. Discharge Instructions Admission Reason for Admission: Epigastric Abdominal Pain Discharge Discharge Diagnosis / Problem: Gastroparesis,Intractible Nausea Discharge Goals Goal(s): Prevent Disease Progression Activity Recommendations Activity Limitations: resume your previous activity . Instructions / Follow-Up Instructions / Follow-Up Your Doctor's office will call with appointment Current Hospital Diet Patient's current hospital diet: Regular Diet Discharge Diet Recommended Diet: Regular Diet Pending Studies Studies pending at discharge: no Medical Emergencies . Who to Call and When: Medical Emergencies: If at any time you feel your situation is an emergency, please call 911 immediately. . Non-Emergent Contact Non-Emergency issues call your: Primary Care Provider . Past History Medical & Surgical History: (1) Pemphigus vulgaris (2) GERD (gastroesophageal reflux disease) (3) Anxiety (4) Depression (5) Gastroparesis (6) COPD (chronic obstructive pulmonary disease) (7) Asthma (8) Anemia, iron deficiency (9) S/P laparoscopic sleeve gastrectomy (10) S/P hysterectomy (11) S/P repair of paraesophageal hernia (12) S/P tonsillectomy and adenoidectomy (13) H/O esophagogastroduodenoscopy . "Provider Documentation" section prepared by Rosi Malhotra. VTE Core Measure Inpt VTE Proph given/why not?: SCD's <Electronically signed by Rosi Malhotra M.D.> Signed: 11/04/16 5840 Additional Copies To aJleel Coppola M.D.
[2017-03-30] MEDS ORDERED: PROC1TAB5 PO (01:03)
[2017-03-30] MEDS ORDERED: ONDA4TAB46 PO (01:20)
[2017-03-30] MEDS ORDERED: LEVO75TA5 PO (03:29)
[2017-03-30] MEDS ORDERED: FAMO20TA9 PO (09:48)
[2017-06-15] MEDS ORDERED: PROM1SUP19 PR (12:09)
[2017-06-18] MEDS ORDERED: OXYC-57 PO (10:33)
== END 2016-11-04 17:11 | disposition home or self-care (01) ==
LOC: ENRESERVTM → CANRESERV → ENRESERVDT → C.EDB 16:01 → C.4E 21:59 → UNDOADMOB 21:59
PROVIDERS: ADMIT Hospitalist; ATTEND Internal Medicine
DX: K31.84 Gastroparesis (principal); E86.0 Dehydration; J44.9 Chronic obstructive pulmonary disease, unspecified; F32.9 Major depressive disorder, single episode, unspecified; K21.0 Gastro-esophageal reflux disease with esophagitis; D50.9 Iron deficiency anemia, unspecified; E78.5 Hyperlipidemia, unspecified; E03.9 Hypothyroidism, unspecified; G62.9 Polyneuropathy, unspecified; Z90.710 Acquired absence of both cervix and uterus; Z90.3 Acquired absence of stomach [part of]; F17.210 Nicotine dependence, cigarettes, uncomplicated; Z83.3 Family history of diabetes mellitus; Z82.49 Family history of ischemic heart disease and other diseases of the circulatory system; Z84.1 Family history of disorders of kidney and ureter; Z79.899 Other long term (current) drug therapy

== ENCOUNTER 2016-11-30 13:41 | Observation (INO) | payer OTHER ==
[~2016-11-30] VITALS: Ht 165.1 cm; Wt 60.7 kg
[~2016-11-30 13:41] MED LIST changes: +ADVIN25050 INH; +ALBINS/ INH; +ALBU18002 INH; -ALBU1AER9 IN; -ALBU1NEB10 INH; -DIGO0.122 PO; -NF1317 PO; -PREN1CAP7 PO; +RANI300T PO
[2016-11-30] MEDS ORDERED: KETAMINE HCL INJ 50 MG/ML 10 ML VIAL IV STA (15:44)
--- NOTE | 2016-11-30 15:53 | EMERGENCY ROOM VISIT NOTE ---
History Report prepared by [place]: Spenser Hawley Under the Supervision of: Dr. Dony Dawson D.O. First contact with patient: 14:51 Chief Complaint: ABDOMINAL PAIN Stated Complaint: ABD PAIN History of Present Illness The patient is a 56 year old female who presents to the Emergency Room with complaints of constant upper abdominal pain that began several hours prior to arrival . She rates her current pain as a 7/10 in severity. The patient notes that the pain is radiating through the center of her abdomen into the middle of her back. The patient has a history of gastrectomy and gastroparesis. Because of this the patient cannot vomit much, but she has been dry heaving. The patient is on Digoxin for atrial fibrillation. Source of History: patient Onset: Several hours prior to arrival Position: abdomen (Upper) Symptom Intensity: 7/10 Associated Symptoms: + back pain, + vomiting (Dry heaving) Review of Systems See above for pertinent positives & negatives. A total of 10 systems reviewed and were otherwise negative. Past Medical & Surgical Medical Problems: (1) Abdominal pain (2) Anemia, iron deficiency (3) Anemia, iron deficiency (4) Anxiety (5) Anxiety State Nos (6) Asthma (7) Chronic Obstructive Asthma, Nos (8) COPD (chronic obstructive pulmonary disease) (9) Depression (10) Diarrhea (11) Diverticulosis (12) Esophagitis Nos (13) Frequent PVCs (14) Gastroparesis (15) GERD (gastroesophageal reflux disease) (16) Hyperlipidemia Nec/Nos (17) Hypothyroidism (18) Hypothyroidism Nos (19) Iron Defic Anemia Nos (20) Mitral regurgitation (21) MRSA bacteremia (22) Nausea (23) Neuropathy (24) Pemphigus vulgaris (25) Pernicious anemia (26) Pernicious Anemia (27) Premature atrial contractions (28) Tobacco abuse Surgical Problems: (1) H/O colonoscopy (2) H/O esophagogastroduodenoscopy (3) H/O oophorectomy (4) H/O: hysterectomy (5) History of bladder surgery (6) S/P hysterectomy (7) S/P laparoscopic sleeve gastrectomy (8) S/P partial gastrectomy (9) S/P repair of paraesophageal hernia (10) S/P repair of paraesophageal hernia (11) S/P tonsillectomy and adenoidectomy (12) S/P tonsillectomy and adenoidectomy Family History Diabetes mellitus MOTHER SISTER FH: aneurysm FH: cancer FH: heart disease FATHER MOTHER Hypertension BROTHER Kidney disease Social History Smoking Status: Current Every Day Smoker Alcohol Use: none Drug Use: none Marital Status: single Housing Status: lives alone Occupation Status: disabled Current/Historical Medications Scheduled Albuterol Sulfate (Proair Respiclick), 2 PUFFS INH QID Dexlansoprazole (Dexilant), 30 MG PO DAILY Digoxin (Digoxin), 0.125 MG PO DAILY Escitalopram (Lexapro), 10 MG PO DAILY Fluticasone Prop/Salmeterol (Advair Diskus 250-50 Mcg/Dose), 1 PUFF INH BID Fosaprepitant Dimeglumine (Emend), 5 ML IV MONTHLY Levothyroxine Sodium (Levothyroxine Sodium), 75 MCG PO DAILY Metoclopramide (Reglan), 10 MG PO ACHS Multivit-Min W/Fe-Fa ( And Iron), 1 TAB PO DAILY Ranitidine Hcl (Zantac), 300 MG PO BID Scheduled PRN Albuterol Sulf (Proventil 0.083% 2.5MG/3ML), 2.5 MG INH Q4H PRN for Wheezing Aluminum Hydroxide-Mag Trisil (Gaviscon), 2 CAP PO TID PRN for Dyspepsia Clonazepam (Klonopin), 0.5 MG PO TID PRN for Anxiety/Agitation Ondansetron Hcl (Zofran), 4 MG PO Q6H PRN for Nausea Prochlorperazine Maleate (Compazine), 10 MG PO Q6H PRN for Nausea or Vomiting Allergies Coded Allergies: Amoxicillin (Verified Adverse Reaction, Intermediate, yeast infection, 11/30) NSAIDs (Verified Adverse Reaction, Mild, indegestion, 11/30/16) Rofecoxib (Verified Adverse Reaction, Mild, indigestion, 11/30/16) Scopolamine (Verified Adverse Reaction, Mild, rash from patch, 11/30/16) Physical Exam Vital Signs Date Time Temp Pulse Resp B/P Pulse Ox O2 Delivery O2 Flow Rate FiO2 11/30/16 19:48 79 20 142/100 94 Room Air 11/30/16 19:34 97 Room Air 11/30/16 19:03 64 18 162/105 97 Room Air 11/30/16 18:11 65 16 165/107 96 Room Air 11/30/16 18:04 67 11/30/16 17:53 74 16 169/111 97 Nasal Cannula 2.0 11/30/16 17:40 74 18 166/107 98 Nasal Cannula 2.0 11/30/16 17:35 72 18 165/103 97 Nasal Cannula 2.0 11/30/16 17:35 72 16 181/113 97 Nasal Cannula 2.0 64 11/30/16 17:30 71 16 167/107 98 Nasal Cannula 2.0 11/30/16 17:25 66 10 173/113 96 Nasal Cannula 2.0 11/30/16 17:20 67 10 157/109 98 Nasal Cannula 2.0 11/30/16 17:15 66 12 179/108 99 Nasal Cannula 2.0 11/30/16 17:10 65 16 169/108 100 Nasal Cannula 2.0 11/30/16 17:08 67 18 157/103 99 Nasal Cannula 2.0 11/30/16 17:02 70 18 173/111 98 Nasal Cannula 2.0 11/30/16 16:37 72 20 97 Room Air 11/30/16 13:45 36.9 58 20 142/92 97 Room Air Physical Exam GENERAL: Patient is in mild distress. HEENT: No acute trauma, normocephalic atraumatic, mucous membranes moist, no nasal congestion, no scleral icterus. NECK: No stridor, no adenopathy, no meningismus, trachea is midline. LUNGS: No dyspnea. Clear to auscultation and equal bilaterally. No wheeze, no rhonchi. HEART: Regular rate and rhythm. No murmurs, rubs, gallops appreciated. ABDOMEN: Soft, nontender, bowel sounds positive, no masses appreciated, no peritonitis. BACK: No midline tenderness, no CVA tenderness EXTREMITIES: Normal motion all extremities, no cyanosis, no edema. NEUROLOGIC: Alert and oriented, no acute motor or sensory deficits, no focal weakness, cranial nerves grossly intact. SKIN: No rash, no jaundice, no diaphoresis. Medical Decision & Procedures Laboratory Results 11/30/16 16:25 Red Blood Count 4.56, Mean Corpuscular Volume 83.8, Mean Corpuscular Hemoglobin 28.3, Mean Corpuscular Hemoglobin Concent 33.8, Mean Platelet Volume 9.5, Neutrophils (%) (Auto) 82.0, Lymphocytes (%) (Auto) 13.4, Monocytes (%) (Auto) 3.9, Eosinophils (%) (Auto) 0.3, Basophils (%) (Auto) 0.3, Neutrophils # (Auto) 5.49, Lymphocytes # (Auto) 0.90, Monocytes # (Auto) 0.26, Eosinophils # (Auto) 0.02, Basophils # (Auto) 0.02 11/30/16 16:25 Test 11/30/16 16:25 11/30/16 19:05 White Blood Count 6.70 K/uL (4.8-10.8) Red Blood Count 4.56 M/uL (4.2-5.4) Hemoglobin 12.9 g/dL (12.0-16.0) Hematocrit 38.2 % (37-47) Mean Corpuscular Volume 83.8 fL (80-100) Mean Corpuscular Hemoglobin 28.3 pg (25-34) Mean Corpuscular Hemoglobin Concent 33.8 g/dl (32-36) Platelet Count 231 K/uL (130-400) Mean Platelet Volume 9.5 fL (7.4-10.4) Neutrophils (%) (Auto) 82.0 % Lymphocytes (%) (Auto) 13.4 % Monocytes (%) (Auto) 3.9 % Eosinophils (%) (Auto) 0.3 % Basophils (%) (Auto) 0.3 % Neutrophils # (Auto) 5.49 K/uL (1.4-6.5) Lymphocytes # (Auto) 0.90 K/uL (1.2-3.4) Monocytes # (Auto) 0.26 K/uL (0.11-0.59) Eosinophils # (Auto) 0.02 K/uL (0-0.5) Basophils # (Auto) 0.02 K/uL (0-0.2) RDW Standard Deviation 45.1 fL (36.4-46.3) RDW Coefficient of Variation 14.7 % (11.5-14.5) Immature Granulocyte % (Auto) 0.1 % Immature Granulocyte # (Auto) 0.01 K/uL (0.00-0.02) Prothrombin Time 10.6 SECONDS (9.0-12.0) Prothromb Time International Ratio 1.0 (0.9-1.1) Activated Partial Thromboplast Time 25.0 SECONDS (21.0-31.0) Partial Thromboplastin Ratio 1.0 Anion Gap 13.0 mmol/L (3-11) Est Creatinine Clear Calc Drug Dose 60.6 ml/min Estimated GFR () 80.6 Estimated GFR (Non- 69.5 BUN/Creatinine Ratio 14.5 (10-20) Calcium Level 8.8 mg/dl (8.5-10.1) Total Bilirubin 0.5 mg/dl (0.2-1) Direct Bilirubin 0.1 mg/dl (0-0.2) Aspartate Amino Transf (AST/SGOT) 15 U/L (15-37) Alanine Aminotransferase (ALT/SGPT) 15 U/L (12-78) Alkaline Phosphatase 101 U/L (45-117) Total Protein 7.2 gm/dl (6.4-8.2) Albumin 3.8 gm/dl (3.4-5.0) Lipase 103 U/L (73-393) Digoxin Level 0.4 ng/ml (0.8-2.0) Urine Color YELLOW Urine Appearance CLEAR (CLEAR) Urine pH 5.5 (4.5-7.5) Urine Specific [place] 1.016 (1.000-1.030) Urine Protein NEG (NEG) Urine Glucose (UA) NEG (NEG) Urine Ketones 3+ (NEG) Urine Occult Blood TRACE (NEG) Urine Nitrite NEG (NEG) Urine Bilirubin NEG (NEG) Urine Urobilinogen NEG (NEG) Urine Leukocyte Esterase NEG (NEG) Urine WBC (Auto) 0 /hpf (0-5) Urine RBC (Auto) 0-4 /hpf (0-4) Urine Hyaline Casts (Auto) 0 /lpf (0-5) Urine Epithelial Cells (Auto) 0-5 /lpf (0-5) Urine Bacteria (Auto) NEG (NEG) Laboratory results as reviewed by me. Medications Administered Medications (Trade) Dose Ordered Sig/Marisol Route Start Time Stop Time Status Last Admin Dose Admin Ketamine HCl/ Sodium Chloride (Ketalar Steri-Vial Inj/ Nss 150ml) 150 ml @ 300 mls/hr Q30M IV 11/30/16 16:00 11/30/16 16:29 DC 11/30/16 17:04 300 MLS/HR Midazolam HCl (Versed Inj) 2 mg STK-MED ONCE .ROUTE 11/30/16 17:02 11/30/16 17:05 DC 11/30/16 17:13 2 MG Metoclopramide HCl (Reglan Inj) 10 mg NOW STAT IM 11/30/16 17:56 11/30/16 17:57 DC 11/30/16 18:05 10 MG Miscellaneous Information (Nursing Verbal Med Order) 1 ea ONE ONCE N/A 11/30/16 19:30 11/30/16 19:31 DC 11/30/16 19:35 1 EA ECG Indication: abdominal pain Rate (beats per minute): 62 Rhythm: normal sinus Findings: no acute ischemic change, no ectopy ED Course 1533: The patient was evaluated in room B4B. A complete history and physical exam was performed. 1600: Ordered Ketamine HCl 150 150 mL @ 300 mL/hr IV. 1659: I will push the Ketamine dosage at this time, and observe the patient. 1702: Ordered Versed 2 mg IV. 1756: Ordered Reglan 10 mg IM. 1805: I spoke with the patient at bedside at this time. She is requesting admission to the hospital. 1811: The patient now rates her abdominal pain as a 3/10 and her nausea level as a 7/10 in severity. 1813: I discussed the case with Dr. Ethan Brown Hospitalist, she will evaluate the patient for further treatment. Medical Decision Differential diagnosis: Etiologies such as appendicitis, diverticulitis, PUD, biliary pathology, UTI, pancreatitis, obstruction, mesenteric ischemia, aortic pathology, infections, inflammatory bowel disease, renal colic, as well as others were entertained. Patient has a long-standing history of intractable nausea and vomiting, upon my initial evaluation the patient states that she recently received her IV infusion for the antiemetics, and feels that she needs to be admitted for intractable nausea and vomiting. I discussed the risks and benefits of undergoing low dose ketamine for analgesia, the patient was agreeable with this. An IV infusion of 150 mg over 30 minutes of ketamine for analgesia, not sedation was performed. The patient remained arousable with verbal stimuli did not become hypotensive, and was not apneic. After the infusion there is significant improvement in patient's pain however she was still symptomatic with nausea and desired inpatient treatment. I have consult to the [facility] hospitalist for further evaluation. Consults Time Called: 1809 Consulting Physician: Dr. Ethan Og Returned Call: 1812 I discussed the case with Dr. Ethan Og, she will evaluate the patient for further treatment. Impression Primary Impression: Gastroparesis Critical Care I have personally spent greater than 30 minutes of critical care time in e direct management of this patient. This includes bedside care, interpretation of diagnostic studies, and testing, discussion with consultants, patient, and family members, and other required patient management activities. This 30 minutes is in excess of all separately billable procedures. Scribe Attestation The scribe's documentation has been prepared under my direction and personally reviewed by me in its entirety. I confirm that the note above accurately reflects all work, treatment, procedures, and medical decision making performed by me. Departure Information Dispostion Being Evaluated By Hospitalist Referrals Jaleel Coppola M.D. (PCP) Patient Instructions My [facility]
[2016-11-30] MEDS ORDERED: KETAMINE HCL IV PRN (16:00)
[2016-11-30] MEDS ORDERED: SODIUM CHLORIDE 0.9% IV PRN (16:00)
[2016-11-30] MEDS ORDERED: KETAMINE HCL IV SCH (16:00)
[2016-11-30] MEDS ORDERED: SODIUM CHLORIDE 0.9% IV SCH (16:00)
[2016-11-30 16:39] LABS: BASO % 0.3 %; BASO ABS # 0.02 K/uL (0-0.2); COMPLETE YES; EOS % 0.3 %; HEMATOCRIT 38.2 % (37-47); IG% 0.1 %; LYMPH % 13.4 %; MEAN CELL VOLUME 83.8 fL (80-100); MEAN CORPUSCULAR HEMOGLOBIN 28.3 pg (25-34); MEAN CORPUSCULAR HGB CONC 33.8 g/dl (32-36); MEAN PLATELET VOLUME 9.5 fL (7.4-10.4); MONO % 3.9 %; PLATELET COUNT 231 K/uL (130-400); RED BLOOD COUNT 4.56 M/uL (4.2-5.4)
[2016-11-30 17:01] LABS: BUN/CREATININE RATIO 14.5 (10-20); CALCIUM 8.8 mg/dl (8.5-10.1); CREATININE 0.91 mg/dl (0.60-1.20); POTASSIUM 3.9 mmol/L (3.5-5.1)
[2016-11-30] MEDS ORDERED: MIDAZOLAM HCL 1 MG/ML 2ML VIAL ONE (17:02)
[2016-11-30] MEDS ORDERED: MIDAZOLAM HCL 1 MG/ML 2ML VIAL IV ONE (17:15)
[2016-11-30] MEDS ORDERED: METOCLOPRAMIDE HCL INJ 5 MG/ML 2 ML VIAL IM STA (17:56)
--- NOTE | 2016-11-30 19:01 | DIAGNOSTIC IMAGING REPORT ---
ABDOMEN 2VIEW W/PA CHEST RTN CLINICAL HISTORY: abd pain COMPARISON STUDY: 11/03/2016 FINDINGS: There is a right internal jugular A-Port catheter. The heart is normal in size. There is a stable collection of contrast at the esophagogastric junction, likely postsurgical. There are surgical clips within the right upper quadrant consistent with a prior cholecystectomy. There are scattered nonspecific pelvic basin calcifications. There are no transition zones indicate bowel obstruction. There are few scattered air-fluid levels within the right lower quadrant. IMPRESSION: No evidence of bowel obstruction. No evidence of free air. Electronically signed by: Osmany Rahman M.D. 11/30/2016 6:59 PM Dictated Date/Time: 11/30/2016 6:57 PM
[2016-11-30 19:27] LABS: URINE APPEARANCE CLEAR (CLEAR); URINE BILIRUBIN NEG (NEG); URINE COLOR YELLOW; URINE EPITHELIAL CELL AUTO 0-5 /lpf (0-5); URINE NITRITE NEG (NEG); URINE PH 5.5 (4.5-7.5); URINE SPECIFIC GRAVITY 1.016 (1.000-1.030); UROBILINOGEN NEG (NEG); ZZUR CULT IF INDIC CLEAN CATCH NO
[2016-11-30] MEDS ORDERED: NURSING VERBAL MED ORDER ONE (19:30)
[2016-11-30 19:34] VITALS: O2SAT 97; Ht 165.1 cm; Wt 60.7 kg
[2016-11-30] MEDS ORDERED: LORAZEPAM 2 MG/ML 1 ML VIAL ONE (19:34)
[2016-11-30 19:36] LABS: MANUAL MICROSCOPIC REQUIRED? NO; REVIEW REQ? NO
[2016-11-30] MEDS ORDERED: ACETAMINOPHEN 325 MG TAB PO PRN (20:15)
[2016-11-30 20:37] LABS: PROTHROMBIN TIME (PATIENT) 10.6 SECONDS (9.0-12.0)
[2016-11-30] MEDS ORDERED: CLONAZEPAM 0.5 MG TAB PO PRN (20:45)
[2016-11-30] MEDS ORDERED: ALBUTEROL 0.083% NEBU SOLN 3 ML VIAL INH PRN (20:45)
[2016-11-30] MEDS ORDERED: IV FLUIDS COMPLETED PRN (20:45)
[2016-11-30] MEDS ORDERED: ALUM HYDROX/MAG TRISILICATE CHEW PO PRN (20:45)
[2016-11-30] MEDS: PROMETHAZINE HCL INJ 12.5 MG in SODIUM CHLORIDE 0.9% 50ML 50 ML IV PRN (20:47)
[2016-11-30] MEDS: FLUTICASONE/SALMETEROL 250/50 (ADVAIR) 14 PUFF/1 INHALER INH SCH (21:00)
[2016-11-30] MEDS: ALBUTEROL HFA 8 GM INHALER INH SCH (21:00)
--- NOTE | 2016-11-30 21:24 | History and Physical ---
History & Physical Date & Time of Service: Nov 30, 2016 at 20:40 Chief Complaint: Abd Pain Primary Care Physician: Jaleel Coppola M.D. History of Present Illness Source: patient, clinic records, hospital records Patient seen and examined. 56 year old female well known to the hospitalist service with PMHx of gastroparesis,m dumping syndrome, MIGUEL, Depression, COPD, h/ o PVCs and hypothyroidism presents to the ED complaining of nausea x 1 day. Patient reports she is having another "gastroparesis attack." She states she woke up this morning and felt nauseated and this has increasingly worsened throughout the day. She reports associated dry heaves. She states her acid reflux also seems to be worsening. She follows closely with Dr. Ridley and had an emend injection on 11/27. She was recently admitted last month and the month before. It appears that the patient has been started on erythromycin during each admission which she has self discontinued for diarrhea. She denies fevers, chills, URI symptoms, chest pain, SOB, vomiting, diarrhea, dysuria, calf pain and edema. In the ED pressure is slightly elevated otherwise VS are stable. CBC, PRP, Lipase LFTs are unremarkable, KUB is without obstruction. She received ketamine, versed, Reglan and Ativan. She states she is still having persistent nausea. She will be observed for further workup and treatment. Past Medical/Surgical History Medical Problems: (1) Anemia, iron deficiency Status: Chronic (2) Anxiety Status: Chronic (3) Anxiety State Nos Status: Chronic (4) Asthma Status: Chronic (5) Chronic Obstructive Asthma, Nos Status: Chronic (6) COPD (chronic obstructive pulmonary disease) Status: Chronic (7) Depression Status: Chronic (8) Diverticulosis Status: Chronic (9) Esophagitis Nos Status: Chronic (10) Frequent PVCs Status: Chronic (11) Gastroparesis Status: Chronic (12) GERD (gastroesophageal reflux disease) Status: Chronic (13) Hyperlipidemia Nec/Nos Status: Chronic (14) Hypothyroidism Status: Chronic (15) Hypothyroidism Nos Status: Chronic (16) Iron Defic Anemia Nos Status: Chronic (17) Mitral regurgitation Permanent Comment: moderate per echo 09/21/15 Status: Chronic (18) MRSA bacteremia Status: Resolved (19) Neuropathy Status: Chronic (20) Pemphigus vulgaris Status: Chronic (21) Pernicious anemia Status: Chronic (22) Pernicious Anemia Status: Chronic (23) Premature atrial contractions Status: Chronic (24) Tobacco abuse Status: Chronic Surgical Problems: (1) H/O colonoscopy Permanent Comment: 08/14/2013- Moderate diverticulosis in the sigmoid colon, in the descending colon and in the ascending colon. Internal hemorrhoids. Normal mucosa in the entire examined colon. Biopsied. Status: Chronic (2) H/O esophagogastroduodenoscopy Permanent Comment: 04/22/2015- - Stretta treatment to distal esophagus / GE junction and cardia.Three surgical logan were found in the esophagus at the GE junction and removed. Surgical suture was also found at the GE junction without evidence of dehiscence. Grade B GERD / erosive esophagitis. Sleeve gastrectomy with a large-sized pouch, intact staple line, post-operative mucosal scar, and evidence f pyloroplasty. Small gastric polyp, likely hyperplastic vs fundic gland polyp. Small hiatus hernia. Status: Chronic (3) H/O oophorectomy Permanent Comment: left ovary Status: Chronic (4) H/O: hysterectomy Status: Resolved (5) History of bladder surgery Status: Chronic (6) S/P hysterectomy Status: Chronic (7) S/P laparoscopic sleeve gastrectomy Status: Chronic (8) S/P partial gastrectomy Status: Chronic (9) S/P repair of paraesophageal hernia Status: Chronic (10) S/P repair of paraesophageal hernia Permanent Comment: resulted in volvulus, required abdominal exploration Status: Chronic (11) S/P tonsillectomy and adenoidectomy Status: Resolved (12) S/P tonsillectomy and adenoidectomy Status: Chronic Family History Diabetes mellitus MOTHER SISTER FH: aneurysm FH: cancer FH: heart disease FATHER MOTHER Hypertension BROTHER Kidney disease Social History Smoking Status: Current Every Day Smoker Alcohol Use: none Drug Use: none Marital Status: single Housing status: lives with family Occupational Status: disabled Immunizations History of Influenza Vaccine: Yes History of Tetanus Vaccine?: Unknown History of Pneumococcal: Unknown History of Hepatitis B Vaccine: Unknown Multi-Drug Resistant Organisms History of MDRO: Yes Type of MDRO: MRSA Allergies Coded Allergies: Amoxicillin (Verified Adverse Reaction, Intermediate, yeast infection, 11/30) NSAIDs (Verified Adverse Reaction, Mild, indegestion, 11/30/16) Rofecoxib (Verified Adverse Reaction, Mild, indigestion, 11/30/16) Scopolamine (Verified Adverse Reaction, Mild, rash from patch, 11/30/16) Home Medications Scheduled Albuterol Sulfate (Proair Respiclick), 2 PUFFS INH QID Dexlansoprazole (Dexilant), 30 MG PO DAILY Digoxin (Digoxin), 0.125 MG PO DAILY Escitalopram (Lexapro), 10 MG PO DAILY Fluticasone Prop/Salmeterol (Advair Diskus 250-50 Mcg/Dose), 1 PUFF INH BID Fosaprepitant Dimeglumine (Emend), 5 ML IV MONTHLY Levothyroxine Sodium (Levothyroxine Sodium), 75 MCG PO DAILY Metoclopramide (Reglan), 10 MG PO ACHS Multivit-Min W/Fe-Fa ( And Iron), 1 TAB PO DAILY Ranitidine Hcl (Zantac), 300 MG PO BID Scheduled PRN Albuterol Sulf (Proventil 0.083% 2.5MG/3ML), 2.5 MG INH Q4H PRN for Wheezing Aluminum Hydroxide-Mag Trisil (Gaviscon), 2 CAP PO TID PRN for Dyspepsia Clonazepam (Klonopin), 0.5 MG PO TID PRN for Anxiety/Agitation Ondansetron Hcl (Zofran), 4 MG PO Q6H PRN for Nausea Prochlorperazine Maleate (Compazine), 10 MG PO Q6H PRN for Nausea or Vomiting Review of Systems See above for pertinent positives & negatives. A total of 10 systems reviewed and were otherwise negative. Physical Exam Vital Signs Date Time Temp Pulse Resp B/P Pulse Ox O2 Delivery O2 Flow Rate FiO2 11/30/16 19:48 79 20 142/100 94 Room Air 11/30/16 19:34 97 Room Air 11/30/16 19:03 64 18 162/105 97 Room Air 11/30/16 18:11 65 16 165/107 96 Room Air 11/30/16 18:04 67 11/30/16 17:53 74 16 169/111 97 Nasal Cannula 2.0 11/30/16 17:40 74 18 166/107 98 Nasal Cannula 2.0 11/30/16 17:35 72 18 165/103 97 Nasal Cannula 2.0 11/30/16 17:35 72 16 181/113 97 Nasal Cannula 2.0 64 11/30/16 17:30 71 16 167/107 98 Nasal Cannula 2.0 11/30/16 17:25 66 10 173/113 96 Nasal Cannula 2.0 11/30/16 17:20 67 10 157/109 98 Nasal Cannula 2.0 11/30/16 17:15 66 12 179/108 99 Nasal Cannula 2.0 11/30/16 17:10 65 16 169/108 100 Nasal Cannula 2.0 11/30/16 17:08 67 18 157/103 99 Nasal Cannula 2.0 11/30/16 17:02 70 18 173/111 98 Nasal Cannula 2.0 11/30/16 16:37 72 20 97 Room Air 11/30/16 13:45 36.9 58 20 142/92 97 Room Air General Appearance: + pertinent finding (WD/WN 56 year old female lying inbed in NAD ) Head: normocephalic, atraumatic Eyes: PERRL, EOMI, sclerae normal ENT: hearing grossly normal, pharynx normal Neck: supple, no JVD Respiratory/Chest: chest non-tender, lungs clear, normal breath sounds, no respiratory distress, no accessory muscle use Cardiovascular: regular rate, rhythm, no edema, no gallop, no JVD, no murmur, normal peripheral pulses Abdomen/GI: normal bowel sounds, non tender, soft Back: normal inspection, no muscle spasm Extremities/Musculoskelatal: no calf tenderness, normal capillary refill, no pedal edema Neurologic/Psych: alert, oriented x 3, + pertinent finding (no focal deficits noted ) Skin: normal color, warm/dry, no rash Lymphatic: no adenopathy Diagnostics Laboratory Results Results Past 24 Hours Test 11/30/16 16:25 11/30/16 19:05 Range/Units White Blood Count 6.70 4.8-10.8 K/uL Red Blood Count 4.56 4.2-5.4 M/uL Hemoglobin 12.9 12.0-16.0 g/dL Hematocrit 38.2 37-47 % Mean Corpuscular Volume 83.8 80-100 fL Mean Corpuscular Hemoglobin 28.3 25-34 pg Mean Corpuscular Hemoglobin Concent 33.8 32-36 g/dl Platelet Count 231 130-400 K/uL Mean Platelet Volume 9.5 7.4-10.4 fL Neutrophils (%) (Auto) 82.0 % Lymphocytes (%) (Auto) 13.4 % Monocytes (%) (Auto) 3.9 % Eosinophils (%) (Auto) 0.3 % Basophils (%) (Auto) 0.3 % Neutrophils # (Auto) 5.49 1.4-6.5 K/uL Lymphocytes # (Auto) 0.90 1.2-3.4 K/uL Monocytes # (Auto) 0.26 0.11-0.59 K/uL Eosinophils # (Auto) 0.02 0-0.5 K/uL Basophils # (Auto) 0.02 0-0.2 K/uL RDW Standard Deviation 45.1 36.4-46.3 fL RDW Coefficient of Variation 14.7 11.5-14.5 % Immature Granulocyte % (Auto) 0.1 % Immature Granulocyte # (Auto) 0.01 0.00-0.02 K/uL Prothrombin Time 10.6 9.0-12.0 SECONDS Prothromb Time International Ratio 1.0 0.9-1.1 Activated Partial Thromboplast Time 25.0 21.0-31.0 SECONDS Partial Thromboplastin Ratio 1.0 Sodium Level 141 136-145 mmol/L Potassium Level 3.9 3.5-5.1 mmol/L Chloride Level 106 98-107 mmol/L Carbon Dioxide Level 22 21-32 mmol/L Anion Gap 13.0 3-11 mmol/L Blood Urea Nitrogen 13 7-18 mg/dl Creatinine 0.91 0.60-1.20 mg/dl Est Creatinine Clear Calc Drug Dose 60.6 ml/min Estimated GFR () 80.6 Estimated GFR (Non- 69.5 BUN/Creatinine Ratio 14.5 10-20 Random Glucose 109 70-99 mg/dl Calcium Level 8.8 8.5-10.1 mg/dl Total Bilirubin 0.5 0.2-1 mg/dl Direct Bilirubin 0.1 0-0.2 mg/dl Aspartate Amino Transf (AST/SGOT) 15 15-37 U/L Alanine Aminotransferase (ALT/SGPT) 15 12-78 U/L Alkaline Phosphatase 101 45-117 U/L Total Protein 7.2 6.4-8.2 gm/dl Albumin 3.8 3.4-5.0 gm/dl Lipase 103 73-393 U/L Digoxin Level 0.4 0.8-2.0 ng/ml Urine Color YELLOW Urine Appearance CLEAR CLEAR Urine pH 5.5 4.5-7.5 Urine Specific [place] 1.016 1.000-1.030 Urine Protein NEG NEG Urine Glucose (UA) NEG NEG Urine Ketones 3+ NEG Urine Occult Blood TRACE NEG Urine Nitrite NEG NEG Urine Bilirubin NEG NEG Urine Urobilinogen NEG NEG Urine Leukocyte Esterase NEG NEG Urine WBC (Auto) 0 0-5 /hpf Urine RBC (Auto) 0-4 0-4 /hpf Urine Hyaline Casts (Auto) 0 0-5 /lpf Urine Epithelial Cells (Auto) 0-5 0-5 /lpf Urine Bacteria (Auto) NEG NEG Diagnostic Radiology CXR/KUB Per radiologist read: IMPRESSION: No evidence of bowel obstruction. No evidence of free air. EKG 62 BPM, NSR QTc 464 Impression Assessment and Plan 56 year old female presents to the ED complaining of nausea and dry heaves x 1 day. INTRACTABLE NAUSEA/DRY HEAVES H/O GASTROPARESIS, DUMPING SYNDROME -observation in med/surg -workup in ED essentially negative, KUB nonobstructive, LFTs, Lipase, PRP, CBC, UA unremarkable -receives monthly emend injections, follows with Dr. Ridley -Received Ketamine, Reglan, Versed and Ativan in ED feeling somewhat better -Zofran, Phenergan prn -gentle IVF hydration -clear liquid diet -gentle IVF hydration -continue PPI, [id number] -continue Reglan -has previously been on erythromycin but has self discontinued d/t diarrhea -CBC, PRP, Mg in AM -consider GI consult if symptoms don't improve defer to day time attending COPD -stable -still smoking -cessation counseling given -continue home inhalers HYPOTHYROIDISM -continue Synthroid DEPRESSION -continue Lexapro -continue Klonopin H/O PVC/PACS -digoxin level low -continue Digoxin IRON DEFICIENCY ANEMIA -hgb stable -continue multivitamin with iron TOBACCO ABUSE -Cessation counseling given DVT PROPHYLAXIS: Sq Lovenox CODE STATUS: FULL CODE DISPO:observation pending further workup Patient seen in collaboration with Dr. Long ADDENDUM: I have seen and examined the patient and have discussed the case with the provider above. I agree with the assessment and plan as stated. DO Ethan Level of Care Med/Surg Advanced Directives Existing Living Will: No Existing Power of Chrome Plater: No Resuscitation Status FULL RESUSCITATION VTE Prophylaxis VTE Risk Assessment Done? Y/N: Yes Risk Level: Moderate Given or contraindicated: Enoxaparin (Lovenox)SQ
[2016-11-30 21:41] VITALS: BP 154/95; PULSE 64; TEMP 37.5; O2SAT 96
[2016-11-30] MEDS: SODIUM CHLORIDE 0.9% 1000ML 1,000 ML IV SCH (21:48)
[2016-11-30] MEDS: METOCLOPRAMIDE HCL 10 MG TAB PO SCH (21:49)
[2016-11-30] MEDS: RANITIDINE HCL 150 MG TAB PO SCH (21:49)
[2016-11-30] MEDS: ONDANSETRON INJ 2 MG/ML 2 ML VIAL IV PRN (21:50)
[2016-11-30] MEDS ORDERED: GI COCKTAIL PO SCH (22:30)
[2016-11-30] MEDS ORDERED: ALUMINUM/MAGNESIUM SUSP 18 ML, LIDOCAINE HCL 2% VISCOUS SOLN 6 ML, BARCODE IDENTIFIER 1 EA PO ONE ×2 (23:00)
[2016-11-30 23:53] VITALS: BP 164/103; PULSE 76; TEMP 36.6; O2SAT 97
[2016-12-01] VITALS (7 sets, daily range): BP systolic 93–162; BP diastolic 60–104; PULSE 50–64; TEMP 36.7–36.8; O2SAT 94–98
--- NOTE | 2016-12-01 | EMERGENCY ROOM VISIT NOTE ---
Pre-Mod Sedation Assessment General Date of Moderate Sedation: Nov 30, 2016. Vital Signs: Vital Signs Past 12 Hours Date Time Temp Pulse Resp B/P Pulse Ox O2 Delivery O2 Flow Rate FiO2 11/30/16 23:53 36.6 76 16 164/103 97 Room Air 11/30/16 21:41 37.5 64 20 154/95 96 Room Air 11/30/16 21:06 63 20 145/104 97 11/30/16 19:48 79 20 142/100 94 Room Air 11/30/16 19:34 97 Room Air 11/30/16 19:03 64 18 162/105 97 Room Air 11/30/16 18:11 65 16 165/107 96 Room Air 11/30/16 18:04 67 11/30/16 17:53 74 16 169/111 97 Nasal Cannula 2.0 11/30/16 17:40 74 18 166/107 98 Nasal Cannula 2.0 11/30/16 17:35 72 18 165/103 97 Nasal Cannula 2.0 11/30/16 17:35 72 16 181/113 97 Nasal Cannula 2.0 64 11/30/16 17:30 71 16 167/107 98 Nasal Cannula 2.0 11/30/16 17:25 66 10 173/113 96 Nasal Cannula 2.0 11/30/16 17:20 67 10 157/109 98 Nasal Cannula 2.0 11/30/16 17:15 66 12 179/108 99 Nasal Cannula 2.0 11/30/16 17:10 65 16 169/108 100 Nasal Cannula 2.0 11/30/16 17:08 67 18 157/103 99 Nasal Cannula 2.0 11/30/16 17:02 70 18 173/111 98 Nasal Cannula 2.0 11/30/16 16:37 72 20 97 Room Air 11/30/16 13:45 36.9 58 20 142/92 97 Room Air Review Cardiovascular: regular rate, rhythm, no edema, no gallop, no JVD, no murmur, normal peripheral pulses Abdomen: normal bowel sounds, non tender, soft, no organomegaly, no pulsatile mass Lungs: chest non-tender, lungs clear, normal breath sounds, no respiratory distress, no accessory muscle use Pre-Sedation Airway Assessment Oral Cavity: Capped Teeth Able to Visualize Vocal Cords: No Short Thick Neck: No Hx of Sleep Apnea: No Smoking Status: Current Every Day Smoker Mallampati Classification: Class II (Sft palate,uvula,fauces visib.) ASA Classification: Class II Procedure Planning Contraindications-for Mod Sed: None (I certify that the pre-sedation and physical was completed, it was entered inadvertently in a different patient chart, that chart has been st struck the main completing this subsequent to the patient's infusion for analgesia) Yes Notes The planned sedation has been discussed with the patient and consent obtained. I have identified the patient, determined the appropriateness of sedation and have assessed the patient immediately prior to the procedure. All medicine(s) and interventions are by my order.
--- NOTE | 2016-12-01 00:01 | EMERGENCY ROOM VISIT NOTE ---
Post-Moderate Sedation Plan General Date of Moderate Sedation Dec 01, 2016. Vital Signs: Vital Signs Past 12 Hours Date Time Temp Pulse Resp B/P Pulse Ox O2 Delivery O2 Flow Rate FiO2 11/30/16 23:53 36.6 76 16 164/103 97 Room Air 11/30/16 21:41 37.5 64 20 154/95 96 Room Air 11/30/16 21:06 63 20 145/104 97 11/30/16 19:48 79 20 142/100 94 Room Air 11/30/16 19:34 97 Room Air 11/30/16 19:03 64 18 162/105 97 Room Air 11/30/16 18:11 65 16 165/107 96 Room Air 11/30/16 18:04 67 11/30/16 17:53 74 16 169/111 97 Nasal Cannula 2.0 11/30/16 17:40 74 18 166/107 98 Nasal Cannula 2.0 11/30/16 17:35 72 18 165/103 97 Nasal Cannula 2.0 11/30/16 17:35 72 16 181/113 97 Nasal Cannula 2.0 64 11/30/16 17:30 71 16 167/107 98 Nasal Cannula 2.0 11/30/16 17:25 66 10 173/113 96 Nasal Cannula 2.0 11/30/16 17:20 67 10 157/109 98 Nasal Cannula 2.0 11/30/16 17:15 66 12 179/108 99 Nasal Cannula 2.0 11/30/16 17:10 65 16 169/108 100 Nasal Cannula 2.0 11/30/16 17:08 67 18 157/103 99 Nasal Cannula 2.0 11/30/16 17:02 70 18 173/111 98 Nasal Cannula 2.0 11/30/16 16:37 72 20 97 Room Air 11/30/16 13:45 36.9 58 20 142/92 97 Room Air Review - Discharge Plan Post Moderate Sedation Plan: On clinical assessment, the patient appears to have tolerated the conscious sedation without complications. Patient is recovering as anticipated. Patient's pain improved to a 4 out of 10, nausea remained at 7 out of 10. The patient be evaluated by the hospitalist for further inpatient management.
[2016-12-01] MEDS: PROMETHAZINE HCL INJ 12.5 MG in SODIUM CHLORIDE 0.9% 50ML 50 ML IV PRN ×4 (02:18→15:48)
[2016-12-01] MEDS ORDERED: CLONIDINE HCL 0.1 MG TAB PO PRN (02:30)
[2016-12-01] MEDS: ONDANSETRON INJ 2 MG/ML 2 ML VIAL IV PRN ×2 (03:59→10:02)
[2016-12-01 06:11] LABS: HEMATOCRIT 36.8 % (37-47); MEAN CELL VOLUME 83.4 fL (80-100); MEAN CORPUSCULAR HEMOGLOBIN 28.6 pg (25-34); MEAN CORPUSCULAR HGB CONC 34.2 g/dl (32-36); MEAN PLATELET VOLUME 9.8 fL (7.4-10.4); PLATELET COUNT 246 K/uL (130-400); RED BLOOD COUNT 4.41 M/uL (4.2-5.4); WHITE BLOOD COUNT 8.66 K/uL (4.8-10.8)
[2016-12-01] MEDS: METOCLOPRAMIDE HCL 10 MG TAB PO SCH ×4 (06:22→21:03)
[2016-12-01] MEDS: SODIUM CHLORIDE 0.9% 1000ML 1,000 ML IV SCH ×2 (06:22→16:15)
[2016-12-01] MEDS: LEVOTHYROXINE 75 MCG TAB PO SCH (06:22)
[2016-12-01 06:48] LABS: BUN/CREATININE RATIO 13.3 (10-20); CALCIUM 8.4 mg/dl (8.5-10.1); CREATININE 0.7 mg/dl (0.60-1.20); POTASSIUM 3.6 mmol/L (3.5-5.1)
[2016-12-01] MEDS: FLUTICASONE/SALMETEROL 250/50 (ADVAIR) 14 PUFF/1 INHALER INH SCH ×2 (08:13→21:00)
[2016-12-01] MEDS: PANTOprazole SOD 40 MG TAB PO SCH (08:14)
[2016-12-01] MEDS: ESCITALOPRAM OXALATE 10 MG TAB PO SCH (08:14)
[2016-12-01] MEDS: RANITIDINE HCL 150 MG TAB PO SCH ×2 (08:14→21:03)
[2016-12-01] MEDS: ALBUTEROL HFA 8 GM INHALER INH SCH ×4 (08:14→21:00)
[2016-12-01] MEDS: PRENATAL VITAMIN TAB PO SCH (08:14)
[2016-12-01] MEDS: ENOXAPARIN 40 MG/0.4 ML SYR SQ SCH (08:15)
[2016-12-01] MEDS ORDERED: NURSING VERBAL MED ORDER ONE (11:30)
[2016-12-01] MEDS ORDERED: PROMETHAZINE HCL INJ 12.5 MG in SODIUM CHLORIDE 0.9% 50ML 50 ML IV ONE (11:45)
[2016-12-01] MEDS ORDERED: FOSAPREPITANT DIMEGLUMINE INJ 115 MG in SODIUM CHLORIDE 0.9% 100ML 111.2 ML IV ONE (13:00)
--- NOTE | 2016-12-01 13:22 | Gastrointestinal Consultation ---
Gastrointestinal Consultation Date of Consultation: Dec 01, 2016 Attending Physician: Adonis Cruz Consulting Physician: Trace Salas Reason for Consultation: Nausea, vomiting History of Present Illness Patient is a 56 year old female w PMHx of gastroparesis, dumping syndrome, depression, COPD, hx of PVs and hypothyroidism who presented to ED w c/o nausea and vomiting. She's well known to our GI service. She is on Emend IV infusion once a month, last dose 11/27/16, Reglan 10mg AC/HS, Compazine 10mg PO q6hr prn nausea, Zofran 4mg PO q6hrs prn nausea. She said none of her home meds has helped within last day or so. She denies any abd pain. Bowels generally loose. She had in fact has stopped Erythromycin in the past due to worsening loose stools. She denies any fever, chills, CP, SOB. Labs reviewed: CBC, CMP, UA, coags - unremarkable. LFTs, lipase normal. Chest and abd xray normal. Last EGD 12/16/15 - reflux esophagitis, gastritis, no Hpylori noted. Past Medical/Surgical History Medical Problems: (1) Anxiety State Nos Status: Chronic (2) Chronic Obstructive Asthma, Nos Status: Chronic (3) Dehydration Status: Acute (4) Dehydration Status: Acute (5) Dumping syndrome Status: Acute (6) Epigastric abdominal pain Status: Acute (7) Esophagitis Nos Status: Chronic (8) Gastroparesis Status: Chronic (9) Hyperlipidemia Nec/Nos Status: Chronic (10) Hypothyroidism Nos Status: Chronic (11) Intractable nausea and vomiting Status: Acute (12) Intractable nausea and vomiting Status: Acute (13) Intractable nausea and vomiting Status: Acute (14) Intractable vomiting Status: Acute (15) Iron Defic Anemia Nos Status: Chronic (16) Nausea Status: Acute (17) Pernicious Anemia Status: Chronic Surgical Problems: (1) S/P repair of paraesophageal hernia Status: Chronic Past Medical History: See above; GERD, iron deficiency anemia, MRSA bacteremia, PACs, tobacco abuse Past Surgical History: Total hysterectomy Bladder surgery Sleeve gastrectomy, repair of paraesophageal hernia Tonsillectomy & Adenoidectomy Family History Diabetes mellitus MOTHER SISTER FH: aneurysm FH: cancer FH: heart disease FATHER MOTHER Hypertension BROTHER Kidney disease Social History Smoking Status: Current Every Day Smoker Alcohol Use: none Drug Use: none Marital Status: single Housing Status: lives alone Occupation Status: disabled Allergies Coded Allergies: Amoxicillin (Verified Adverse Reaction, Intermediate, yeast infection, 11/30) NSAIDs (Verified Adverse Reaction, Mild, indegestion, 11/30/16) Rofecoxib (Verified Adverse Reaction, Mild, indigestion, 11/30/16) Scopolamine (Verified Adverse Reaction, Mild, rash from patch, 11/30/16) Current Medications Home Meds and Scripts Medications Dose Route/Sig Max Daily Dose Days Date Category Digoxin 0.125 Mg Tab 0.125 Mg PO DAILY 11/02/16 Reported Proventil 0.083% 2.5MG/3ML (Albuterol Sulf) 2.5 Mg/3 Ml Nebu 2.5 Mg INH Q4H PRN 11/02/16 Reported Proair Respiclick (Albuterol Sulfate) 108 Mcg/Act Aer 2 Puffs INH QID 11/02/16 Reported And Iron ( Multivit-Min W/Fe-Fa) 1 Tab Tab 1 Tab PO DAILY 11/02/16 Reported Dexilant (Dexlansoprazole) 30 Mg Cap 30 Mg PO DAILY 11/02/16 Reported Reglan (Metoclopramide HCl) 10 Mg Tab 10 Mg PO ACHS 10/06/16 Reported Emend (Fosaprepitant Dimeglumine) 150 Mg Rosalia 5 Ml IV MONTHLY 10/06/16 Reported Gaviscon (Aluminum Hydroxide-Mag Trisil) 1 Chw Chw 2 Cap PO TID PRN 08/23/16 Reported Advair Diskus 250-50 Mcg/Dose (Fluticasone Prop/Salmeterol) 14 Puff/1 Inhaler Aerp 1 Puff INH BID 11/24/15 Reported Lexapro (Escitalopram Oxalate) 10 Mg Tab 10 Mg PO DAILY 11/24/15 Reported Zofran (Ondansetron HCl) 4 Mg Tab 4 Mg PO Q6H PRN 07/25/15 Reported Compazine (Prochlorperazine Maleate) 10 Mg Tab 10 Mg PO Q6H PRN 07/25/15 Reported Zantac (Ranitidine Hcl) 300 Mg Tab 300 Mg PO BID 06/22/14 Reported Klonopin (Clonazepam) 0.5 Mg Tab 0.5 Mg PO TID PRN 06/22/14 Reported Levothyroxine Sodium 75 Mcg Tab 75 Mcg PO DAILY 10/31/13 Reported Review of Systems Constitutional: No chills, No fever Respiratory: No cough, No shortness of breath Cardiac: No chest pain Abdomen: + diarrhea, + nausea, + vomiting, No pain Physical Exam Date Time Temp Pulse Resp B/P Pulse Ox O2 Delivery O2 Flow Rate FiO2 12/01/16 11:45 36.8 62 20 124/82 97 Room Air 12/01/16 09:51 96 12/01/16 08:04 36.8 64 16 162/104 96 Room Air 12/01/16 08:00 97 Room Air 12/01/16 02:10 156/91 12/01/16 00:00 Room Air 11/30/16 23:53 36.6 76 16 164/103 97 Room Air 11/30/16 21:41 37.5 64 20 154/95 96 Room Air 11/30/16 21:06 63 20 145/104 97 11/30/16 19:48 79 20 142/100 94 Room Air 11/30/16 19:34 97 Room Air 11/30/16 19:03 64 18 162/105 97 Room Air 11/30/16 18:11 65 16 165/107 96 Room Air 11/30/16 18:04 67 11/30/16 17:53 74 16 169/111 97 Nasal Cannula 2.0 11/30/16 17:40 74 18 166/107 98 Nasal Cannula 2.0 11/30/16 17:35 72 18 165/103 97 Nasal Cannula 2.0 11/30/16 17:35 72 16 181/113 97 Nasal Cannula 2.0 64 11/30/16 17:30 71 16 167/107 98 Nasal Cannula 2.0 11/30/16 17:25 66 10 173/113 96 Nasal Cannula 2.0 11/30/16 17:20 67 10 157/109 98 Nasal Cannula 2.0 11/30/16 17:15 66 12 179/108 99 Nasal Cannula 2.0 11/30/16 17:10 65 16 169/108 100 Nasal Cannula 2.0 11/30/16 17:08 67 18 157/103 99 Nasal Cannula 2.0 11/30/16 17:02 70 18 173/111 98 Nasal Cannula 2.0 11/30/16 16:37 72 20 97 Room Air 11/30/16 13:45 36.9 58 20 142/92 97 Room Air General Appearance: + moderate distress (having dry heaving) Eyes: normal inspection, PERRL, EOMI Neck: supple, no JVD, trachea midline Respiratory/Chest: no respiratory distress, no accessory muscle use Neurologic/Psych: alert, oriented x 3, + depressed affect Skin: normal color, no jaundice, no rash Laboratory Results Last 24 Hours Test 11/30/16 16:25 11/30/16 19:05 12/01/16 05:34 White Blood Count 6.70 K/uL 8.66 K/uL Red Blood Count 4.56 M/uL 4.41 M/uL Hemoglobin 12.9 g/dL 12.6 g/dL Hematocrit 38.2 % 36.8 % Mean Corpuscular Volume 83.8 fL 83.4 fL Mean Corpuscular Hemoglobin 28.3 pg 28.6 pg Mean Corpuscular Hemoglobin Concent 33.8 g/dl 34.2 g/dl Platelet Count 231 K/uL 246 K/uL Mean Platelet Volume 9.5 fL 9.8 fL Neutrophils (%) (Auto) 82.0 % Lymphocytes (%) (Auto) 13.4 % Monocytes (%) (Auto) 3.9 % Eosinophils (%) (Auto) 0.3 % Basophils (%) (Auto) 0.3 % Neutrophils # (Auto) 5.49 K/uL Lymphocytes # (Auto) 0.90 K/uL Monocytes # (Auto) 0.26 K/uL Eosinophils # (Auto) 0.02 K/uL Basophils # (Auto) 0.02 K/uL RDW Standard Deviation 45.1 fL 45.1 fL RDW Coefficient of Variation 14.7 % 14.7 % Immature Granulocyte % (Auto) 0.1 % Immature Granulocyte # (Auto) 0.01 K/uL Prothrombin Time 10.6 SECONDS Prothromb Time International Ratio 1.0 Activated Partial Thromboplast Time 25.0 SECONDS Partial Thromboplastin Ratio 1.0 Sodium Level 141 mmol/L 138 mmol/L Potassium Level 3.9 mmol/L 3.6 mmol/L Chloride Level 106 mmol/L 103 mmol/L Carbon Dioxide Level 22 mmol/L 23 mmol/L Anion Gap 13.0 mmol/L 12.0 mmol/L Blood Urea Nitrogen 13 mg/dl 9 mg/dl Creatinine 0.91 mg/dl 0.70 mg/dl Est Creatinine Clear Calc Drug Dose 60.6 ml/min 78.8 ml/min Estimated GFR () 80.6 110.7 Estimated GFR (Non- 69.5 95.5 BUN/Creatinine Ratio 14.5 13.3 Random Glucose 109 mg/dl 126 mg/dl Calcium Level 8.8 mg/dl 8.4 mg/dl Total Bilirubin 0.5 mg/dl Direct Bilirubin 0.1 mg/dl Aspartate Amino Transf (AST/SGOT) 15 U/L Alanine Aminotransferase (ALT/SGPT) 15 U/L Alkaline Phosphatase 101 U/L Total Protein 7.2 gm/dl Albumin 3.8 gm/dl Lipase 103 U/L Digoxin Level 0.4 ng/ml Urine Color YELLOW Urine Appearance CLEAR Urine pH 5.5 Urine Specific [employer] 1.016 Urine Protein NEG Urine Glucose (UA) NEG Urine Ketones 3+ Urine Occult Blood TRACE Urine Nitrite NEG Urine Bilirubin NEG Urine Urobilinogen NEG Urine Leukocyte Esterase NEG Urine WBC (Auto) 0 /hpf Urine RBC (Auto) 0-4 /hpf Urine Hyaline Casts (Auto) 0 /lpf Urine Epithelial Cells (Auto) 0-5 /lpf Urine Bacteria (Auto) NEG Magnesium Level 2.0 mg/dl Impression Patient is a 56 year old female admitted for nausea, vomiting. Likely gastroparesis flare. No signs of bowel obstruction on Xray Plan - Will add Emend 115mg IV x 1 dose today. She usually responds well to a dose of this med - CL diet - Continue symptomatic management. ATTESTATION: I have performed a history and physical examination of this patient and reviewed the electronic record. Specifically, on physical examination the patient appears nauseated and uncomfortable. I have discussed the case with VANIA Garcia. The above note reflects my findings, conclusions, and recommendations. Trace Salas MD
--- NOTE | 2016-12-01 13:37 | Progress Note ---
Subjective Date of Service: Dec 01, 2016. Subjective Pt evaluation today including: conversation w/ patient, physical exam, lab review, review of studies, review of inpatient medication list Saw/examined the patient in room 261 She is weak and looks to be uncomfortable due to nausea No other symptoms to note; did not have any vomiting episodes Problem List Medical Problems: (1) Anxiety State Nos Status: Chronic (2) Chronic Obstructive Asthma, Nos Status: Chronic (3) Dehydration Status: Acute (4) Dehydration Status: Acute (5) Dumping syndrome Status: Acute (6) Epigastric abdominal pain Status: Acute (7) Esophagitis Nos Status: Chronic (8) Gastroparesis Status: Chronic (9) Hyperlipidemia Nec/Nos Status: Chronic (10) Hypothyroidism Nos Status: Chronic (11) Intractable nausea and vomiting Status: Acute (12) Intractable nausea and vomiting Status: Acute (13) Intractable nausea and vomiting Status: Acute (14) Intractable vomiting Status: Acute (15) Iron Defic Anemia Nos Status: Chronic (16) Nausea Status: Acute (17) Pernicious Anemia Status: Chronic Surgical Problems: (1) S/P repair of paraesophageal hernia Status: Chronic Review of Systems Constitutional: No chills, No fever Respiratory: No shortness of breath Cardiac: No chest pain Abdomen: + nausea, No GI bleeding, No constipation, No diarrhea, No pain, No vomiting Medications Current Inpatient Medications Medications (Trade) Dose Ordered Sig/Marisol Route Start Time Stop Time Status Last Admin Dose Admin Enoxaparin Sodium (Lovenox Inj) 40 mg Q24H SQ 12/01/16 09:00 12/31/16 08:59 12/01/16 08:15 40 MG Acetaminophen (Tylenol Tab) 650 mg Q4H PRN PO 11/30/16 20:15 12/30/16 20:14 12/01/16 11:18 650 MG Ondansetron HCl 4 mg 4 mg Q6H PRN IV 11/30/16 20:15 12/30/16 20:14 12/01/16 10:02 4 MG Sodium Chloride 1,000 ml @ 100 mls/hr Q10H IV 11/30/16 20:30 12/30/16 20:29 12/01/16 06:22 100 MLS/HR Promethazine HCl/ Sodium Chloride (Phenergan Inj/ Nss 50ml) 50.5 ml @ 204 mls/hr Q6H PRN IV 11/30/16 20:30 12/30/16 20:29 12/01/16 08:13 204 MLS/HR Miscellaneous (Iv Fluids Completed) 1 ea PRN PRN N/A 11/30/16 20:45 11/30/17 20:44 Albuterol Sulfate (Ventolin 0.083% 2.5MG/3ML Neb) 2.5 mg Q4H PRN INH 11/30/16 20:45 12/30/16 20:44 Clonazepam (Klonopin Tab) 0.5 mg TID PRN PO 11/30/16 20:45 12/30/16 20:44 11/30/16 21:48 0.5 MG Digoxin (Lanoxin Tab) 0.125 mg DAILY@1600 PO 12/01/16 16:00 12/31/16 15:59 Escitalopram Oxalate (Lexapro Tab) 10 mg DAILY PO 12/01/16 09:00 12/31/16 08:59 Salmeterol Xinafoate/ Fluticasone (Advair Diskus 250/50 Inh) 1 puff BID INH 11/30/16 21:00 12/30/16 20:59 Levothyroxine Sodium (Synthroid Tab) 75 mcg DAILYBB PO 12/01/16 06:30 12/31/16 06:59 12/01/16 06:22 75 MCG Metoclopramide HCl (Reglan Tab) 10 mg ACHS PO 11/30/16 21:00 12/30/16 20:59 12/01/16 11:17 10 MG Albuterol (Ventolin Hfa Inhaler) 2 puffs QID INH 11/30/16 21:00 12/30/16 20:59 Al Hydroxide/Mg Trisilicate (Gaviscon Chew Tab) 2 tab TID PRN PO 11/30/16 20:45 12/30/16 20:44 12/01/16 00:12 2 TAB Pantoprazole Sodium (Protonix Tab) 40 mg DAILY PO 12/01/16 09:00 12/31/16 08:59 Prenat Multivit/ [place]/Iron/Folic Ac ( Vitamin Tab) 1 tab DAILY PO 12/01/16 09:00 12/31/16 08:59 Ranitidine HCl (zANTac TAB) 300 mg BID PO 11/30/16 21:00 12/30/16 20:59 11/30/16 21:49 300 MG Clonidine HCl (Catapres Tab) 0.1 mg Q6H PRN PO 12/01/16 02:30 12/31/16 02:29 12/01/16 02:52 0.1 MG Objective Vital Signs Date Time Temp Pulse Resp B/P Pulse Ox O2 Delivery O2 Flow Rate FiO2 12/01/16 11:45 36.8 62 20 124/82 97 Room Air 12/01/16 09:51 96 12/01/16 08:04 36.8 64 16 162/104 96 Room Air 12/01/16 08:00 97 Room Air 12/01/16 02:10 156/91 12/01/16 00:00 Room Air 11/30/16 23:53 36.6 76 16 164/103 97 Room Air 11/30/16 21:41 37.5 64 20 154/95 96 Room Air 11/30/16 21:06 63 20 145/104 97 11/30/16 19:48 79 20 142/100 94 Room Air 11/30/16 19:34 97 Room Air 11/30/16 19:03 64 18 162/105 97 Room Air 11/30/16 18:11 65 16 165/107 96 Room Air 11/30/16 18:04 67 11/30/16 17:53 74 16 169/111 97 Nasal Cannula 2.0 11/30/16 17:40 74 18 166/107 98 Nasal Cannula 2.0 11/30/16 17:35 72 18 165/103 97 Nasal Cannula 2.0 11/30/16 17:35 72 16 181/113 97 Nasal Cannula 2.0 64 11/30/16 17:30 71 16 167/107 98 Nasal Cannula 2.0 11/30/16 17:25 66 10 173/113 96 Nasal Cannula 2.0 11/30/16 17:20 67 10 157/109 98 Nasal Cannula 2.0 11/30/16 17:15 66 12 179/108 99 Nasal Cannula 2.0 11/30/16 17:10 65 16 169/108 100 Nasal Cannula 2.0 11/30/16 17:08 67 18 157/103 99 Nasal Cannula 2.0 11/30/16 17:02 70 18 173/111 98 Nasal Cannula 2.0 11/30/16 16:37 72 20 97 Room Air 11/30/16 13:45 36.9 58 20 142/92 97 Room Air Physical Exam General Appearance: + mild distress (uncomfortable due to nausea) Respiratory/Chest: lungs clear, normal breath sounds, no respiratory distress, no accessory muscle use Cardiovascular: regular rate, rhythm, no edema, no murmur Abdomen: normal bowel sounds, non tender, soft Laboratory Results Last 24 Hours Test 11/30/16 16:25 11/30/16 19:05 12/01/16 05:34 White Blood Count 6.70 K/uL 8.66 K/uL Red Blood Count 4.56 M/uL 4.41 M/uL Hemoglobin 12.9 g/dL 12.6 g/dL Hematocrit 38.2 % 36.8 % Mean Corpuscular Volume 83.8 fL 83.4 fL Mean Corpuscular Hemoglobin 28.3 pg 28.6 pg Mean Corpuscular Hemoglobin Concent 33.8 g/dl 34.2 g/dl Platelet Count 231 K/uL 246 K/uL Mean Platelet Volume 9.5 fL 9.8 fL Neutrophils (%) (Auto) 82.0 % Lymphocytes (%) (Auto) 13.4 % Monocytes (%) (Auto) 3.9 % Eosinophils (%) (Auto) 0.3 % Basophils (%) (Auto) 0.3 % Neutrophils # (Auto) 5.49 K/uL Lymphocytes # (Auto) 0.90 K/uL Monocytes # (Auto) 0.26 K/uL Eosinophils # (Auto) 0.02 K/uL Basophils # (Auto) 0.02 K/uL RDW Standard Deviation 45.1 fL 45.1 fL RDW Coefficient of Variation 14.7 % 14.7 % Immature Granulocyte % (Auto) 0.1 % Immature Granulocyte # (Auto) 0.01 K/uL Prothrombin Time 10.6 SECONDS Prothromb Time International Ratio 1.0 Activated Partial Thromboplast Time 25.0 SECONDS Partial Thromboplastin Ratio 1.0 Sodium Level 141 mmol/L 138 mmol/L Potassium Level 3.9 mmol/L 3.6 mmol/L Chloride Level 106 mmol/L 103 mmol/L Carbon Dioxide Level 22 mmol/L 23 mmol/L Anion Gap 13.0 mmol/L 12.0 mmol/L Blood Urea Nitrogen 13 mg/dl 9 mg/dl Creatinine 0.91 mg/dl 0.70 mg/dl Est Creatinine Clear Calc Drug Dose 60.6 ml/min 78.8 ml/min Estimated GFR () 80.6 110.7 Estimated GFR (Non- 69.5 95.5 BUN/Creatinine Ratio 14.5 13.3 Random Glucose 109 mg/dl 126 mg/dl Calcium Level 8.8 mg/dl 8.4 mg/dl Total Bilirubin 0.5 mg/dl Direct Bilirubin 0.1 mg/dl Aspartate Amino Transf (AST/SGOT) 15 U/L Alanine Aminotransferase (ALT/SGPT) 15 U/L Alkaline Phosphatase 101 U/L Total Protein 7.2 gm/dl Albumin 3.8 gm/dl Lipase 103 U/L Digoxin Level 0.4 ng/ml Urine Color YELLOW Urine Appearance CLEAR Urine pH 5.5 Urine Specific [place] 1.016 Urine Protein NEG Urine Glucose (UA) NEG Urine Ketones 3+ Urine Occult Blood TRACE Urine Nitrite NEG Urine Bilirubin NEG Urine Urobilinogen NEG Urine Leukocyte Esterase NEG Urine WBC (Auto) 0 /hpf Urine RBC (Auto) 0-4 /hpf Urine Hyaline Casts (Auto) 0 /lpf Urine Epithelial Cells (Auto) 0-5 /lpf Urine Bacteria (Auto) NEG Magnesium Level 2.0 mg/dl Assessment and Plan This is a 56 year old female with PMH of gastroparesis, depression, COPD, iron deficiency anemia presents with nausea Intractable Nausea secondary to Gastroparesis patient currently nauseous tried Zofran and Phenergan gave an extra low dose Phenergan appreciate GI input trying one dose of Emend patient usually responds to this clear liquid diet advance, hopefully d/c home in AM (12/02) COPD continue home inhalers tobacco use disorder - will need to stop smoking, though does not seem ready Hypothyroidism continue Synthroid Depression continue home medications Hx. of PVCs/PACs cont. Digoxin DVT ppx Lovenox FULL CODE
[2016-12-01] MEDS ORDERED: DIGOXIN 0.125 MG TAB PO SCH (16:00)
[2016-12-02] MEDS: SODIUM CHLORIDE 0.9% 1000ML 1,000 ML IV SCH ×2 (02:20→11:39)
[2016-12-02] MEDS: METOCLOPRAMIDE HCL 10 MG TAB PO SCH ×2 (06:19→10:19)
[2016-12-02] MEDS: LEVOTHYROXINE 75 MCG TAB PO SCH (06:19)
[2016-12-02] MEDS: FLUTICASONE/SALMETEROL 250/50 (ADVAIR) 14 PUFF/1 INHALER INH SCH (07:48)
[2016-12-02] MEDS: ALBUTEROL HFA 8 GM INHALER INH SCH ×2 (07:48→11:39)
[2016-12-02] MEDS: PRENATAL VITAMIN TAB PO SCH (07:48)
[2016-12-02] MEDS: ESCITALOPRAM OXALATE 10 MG TAB PO SCH (07:48)
[2016-12-02 07:49] VITALS: BP 100/63; PULSE 50; TEMP 36.7; O2SAT 96
[2016-12-02] MEDS: RANITIDINE HCL 150 MG TAB PO SCH (07:49)
[2016-12-02] MEDS: ENOXAPARIN 40 MG/0.4 ML SYR SQ SCH (07:49)
[2016-12-02] MEDS: PANTOprazole SOD 40 MG TAB PO SCH (07:49)
[2016-12-02 08:00] VITALS: O2SAT 96
[2016-12-02 08:04] VITALS: O2SAT 96
[2016-12-02 08:44] LABS: BUN/CREATININE RATIO 12.9 (10-20); CALCIUM 8.1 mg/dl (8.5-10.1); CREATININE 0.91 mg/dl (0.60-1.20); POTASSIUM 3.4 mmol/L (3.5-5.1)
[2016-12-02] MEDS ORDERED: POTASSIUM CHLORIDE 10 MEQ TABCR PO STA (09:44)
--- NOTE | 2016-12-02 09:49 | Progress Note ---
Subjective Date of Service: Dec 02, 2016. Subjective Pt evaluation today including: conversation w/ patient, physical exam, lab review, review of studies, conversation w/ ux consultant, review of inpatient medication list Saw/examined the patient in room 261 Received Emend yesterday nausea/vomiting resolved - tolerated breakfast, no other symptoms to note Problem List Medical Problems: (1) Anxiety State Nos Status: Chronic (2) Chronic Obstructive Asthma, Nos Status: Chronic (3) Dehydration Status: Acute (4) Dehydration Status: Acute (5) Dumping syndrome Status: Acute (6) Epigastric abdominal pain Status: Acute (7) Esophagitis Nos Status: Chronic (8) Gastroparesis Status: Chronic (9) Hyperlipidemia Nec/Nos Status: Chronic (10) Hypothyroidism Nos Status: Chronic (11) Intractable nausea and vomiting Status: Acute (12) Intractable nausea and vomiting Status: Acute (13) Intractable nausea and vomiting Status: Acute (14) Intractable vomiting Status: Acute (15) Iron Defic Anemia Nos Status: Chronic (16) Nausea Status: Acute (17) Pernicious Anemia Status: Chronic Surgical Problems: (1) S/P repair of paraesophageal hernia Status: Chronic Review of Systems Respiratory: No shortness of breath Cardiac: No chest pain Abdomen: No GI bleeding, No constipation, No diarrhea, No nausea, No pain, No vomiting Medications Current Inpatient Medications Medications (Trade) Dose Ordered Sig/Marisol Route Start Time Stop Time Status Last Admin Dose Admin Enoxaparin Sodium (Lovenox Inj) 40 mg Q24H SQ 12/01/16 09:00 12/31/16 08:59 12/02/16 07:49 40 MG Acetaminophen (Tylenol Tab) 650 mg Q4H PRN PO 11/30/16 20:15 12/30/16 20:14 12/01/16 11:18 650 MG Ondansetron HCl 4 mg 4 mg Q6H PRN IV 11/30/16 20:15 12/30/16 20:14 12/01/16 10:02 4 MG Sodium Chloride 1,000 ml @ 100 mls/hr Q10H IV 11/30/16 20:30 12/30/16 20:29 12/02/16 02:20 100 MLS/HR Promethazine HCl/ Sodium Chloride (Phenergan Inj/ Nss 50ml) 50.5 ml @ 204 mls/hr Q6H PRN IV 11/30/16 20:30 12/30/16 20:29 12/01/16 15:48 204 MLS/HR Miscellaneous (Iv Fluids Completed) 1 ea PRN PRN N/A 11/30/16 20:45 11/30/17 20:44 Albuterol Sulfate (Ventolin 0.083% 2.5MG/3ML Neb) 2.5 mg Q4H PRN INH 11/30/16 20:45 12/30/16 20:44 Clonazepam (Klonopin Tab) 0.5 mg TID PRN PO 11/30/16 20:45 12/30/16 20:44 11/30/16 21:48 0.5 MG Digoxin (Lanoxin Tab) 0.125 mg DAILY@1600 PO 12/01/16 16:00 12/31/16 15:59 Escitalopram Oxalate (Lexapro Tab) 10 mg DAILY PO 12/01/16 09:00 12/31/16 08:59 12/02/16 07:48 10 MG Salmeterol Xinafoate/ Fluticasone (Advair Diskus 250/50 Inh) 1 puff BID INH 11/30/16 21:00 12/30/16 20:59 Levothyroxine Sodium (Synthroid Tab) 75 mcg DAILYBB PO 12/01/16 06:30 12/31/16 06:59 12/02/16 06:19 75 MCG Metoclopramide HCl (Reglan Tab) 10 mg ACHS PO 11/30/16 21:00 12/30/16 20:59 12/02/16 06:19 10 MG Albuterol (Ventolin Hfa Inhaler) 2 puffs QID INH 11/30/16 21:00 12/30/16 20:59 Al Hydroxide/Mg Trisilicate (Gaviscon Chew Tab) 2 tab TID PRN PO 11/30/16 20:45 12/30/16 20:44 12/01/16 00:12 2 TAB Pantoprazole Sodium (Protonix Tab) 40 mg DAILY PO 12/01/16 09:00 12/31/16 08:59 12/02/16 07:49 40 MG Prenat Multivit/ Ollie/Iron/Folic Ac ( Vitamin Tab) 1 tab DAILY PO 12/01/16 09:00 12/31/16 08:59 12/02/16 07:48 1 TAB Ranitidine HCl (zANTac TAB) 300 mg BID PO 11/30/16 21:00 12/30/16 20:59 12/02/16 07:49 300 MG Clonidine HCl (Catapres Tab) 0.1 mg Q6H PRN PO 12/01/16 02:30 12/31/16 02:29 12/01/16 02:52 0.1 MG Objective Vital Signs Date Time Temp Pulse Resp B/P Pulse Ox O2 Delivery O2 Flow Rate FiO2 12/02/16 08:04 96 Room Air 12/02/16 08:00 96 Room Air 12/02/16 07:49 36.7 50 18 100/63 96 Room Air 12/01/16 23:59 Room Air 12/01/16 23:35 36.7 50 16 93/60 98 Room Air 12/01/16 20:00 Room Air 12/01/16 16:00 Room Air 12/01/16 16:00 53 12/01/16 14:42 36.7 64 17 100/61 94 Room Air 12/01/16 11:45 36.8 62 20 124/82 97 Room Air 12/01/16 09:51 96 Physical Exam General Appearance: no apparent distress Respiratory/Chest: lungs clear, normal breath sounds, no respiratory distress, no accessory muscle use Cardiovascular: regular rate, rhythm, no edema, no murmur Abdomen: normal bowel sounds, non tender, soft Laboratory Results Last 24 Hours Test 12/02/16 07:48 Sodium Level 144 mmol/L Potassium Level 3.4 mmol/L Chloride Level 112 mmol/L Carbon Dioxide Level 22 mmol/L Anion Gap 10.0 mmol/L Blood Urea Nitrogen 12 mg/dl Creatinine 0.91 mg/dl Est Creatinine Clear Calc Drug Dose 60.6 ml/min Estimated GFR () 80.6 Estimated GFR (Non- 69.5 BUN/Creatinine Ratio 12.9 Random Glucose 77 mg/dl Calcium Level 8.1 mg/dl Assessment and Plan This is a 56 year old female with PMH of gastroparesis, depression, COPD, iron deficiency anemia presents with nausea Intractable Nausea secondary to Gastroparesis 12/02 Zofran + Phenergan Emend x 1 symptoms have resolved d/c home today 12/01 patient currently nauseous tried Zofran and Phenergan gave an extra low dose Phenergan appreciate GI input trying one dose of Emend patient usually responds to this clear liquid diet advance, hopefully d/c home in AM (12/02) COPD continue home inhalers tobacco use disorder - will need to stop smoking, though does not seem ready Hypothyroidism continue Synthroid Depression continue home medications Hx. of PVCs/PACs cont. Digoxin DVT ppx Lovenox FULL CODE
--- NOTE | 2016-12-02 09:54 | Discharge Instructions ---
Discharge Instructions Date of Service Dec 02, 2016. Admission Reason for Admission: Epigastric Abdominal Pain, Gastroparesis Discharge Discharge Diagnosis / Problem: Gastroparesis, nausea/vomiting, resolved Discharge Goals Goal(s): Decrease discomfort, Improve function Activity Recommendations Activity Limitations: resume your previous activity . Instructions / Follow-Up Instructions / Follow-Up Please follow-up with Dr. Groves on December 07 @ 11:10AM Current Hospital Diet Patient's current hospital diet: Regular Diet Discharge Diet Recommended Diet: Regular Diet Pending Studies Studies pending at discharge: no Medical Emergencies . Who to Call and When: Medical Emergencies: If at any time you feel your situation is an emergency, please call 911 immediately. . Non-Emergent Contact Non-Emergency issues call your: Primary Care Provider . . "Provider Documentation" section prepared by Adonis Cruz. VTE Core Measure Inpt VTE Proph given/why not?: Enoxaparin (Lovenox)SQ
--- NOTE | 2016-12-02 09:55 | Discharge Summary ---
Discharge Summary Date of Service Dec 02, 2016. Discharge Summary Admission Date: Nov 30, 2016 at 20:09 Discharge Date: Dec 02, 2016 Discharge Disposition: Home Principal Diagnosis: Gastroparesis - resolved Medication Reconciliation Continued Medications: Albuterol Sulf (Proventil 0.083% 2.5MG/3ML) 2.5 Mg/3 Ml Nebu 2.5 MG INH Q4H PRN for Wheezing, EA Albuterol Sulfate (Proair Respiclick) 108 Mcg/Act Aer 2 PUFFS INH QID Aluminum Hydroxide-Mag Trisil (Gaviscon) 1 Chw Chw 2 CAP PO TID PRN for Dyspepsia Clonazepam (Klonopin) 0.5 Mg Tab 0.5 MG PO TID PRN for Anxiety/Agitation Dexlansoprazole (Dexilant) 30 Mg Cap 30 MG PO DAILY Digoxin (Digoxin) 0.125 Mg Tab 0.125 MG PO DAILY Escitalopram (Lexapro) 10 Mg Tab 10 MG PO DAILY, TAB Fluticasone Prop/Salmeterol (Advair Diskus 250-50 Mcg/Dose) 14 Puff/1 Inhaler Aerp 1 PUFF INH BID Fosaprepitant Dimeglumine (Emend) 150 Mg Rosalia 5 ML IV MONTHLY Levothyroxine Sodium (Levothyroxine Sodium) 75 Mcg Tab 75 MCG PO DAILY Metoclopramide (Reglan) 10 Mg Tab 10 MG PO ACHS, TAB Ondansetron Hcl (Zofran) 4 Mg Tab 4 MG PO Q6H PRN for Nausea, TAB Multivit-Min W/Fe-Fa ( And Iron) 1 Tab Tab 1 TAB PO DAILY Prochlorperazine Maleate (Compazine) 10 Mg Tab 10 MG PO Q6H PRN for Nausea or Vomiting, TAB Ranitidine Hcl (Zantac) 300 Mg Tab 300 MG PO BID Admission Information HPI (per Admitting provider): Patient seen and examined. 56 year old female well known to the hospitalist service with PMHx of gastroparesis,m dumping syndrome, MIGUEL, Depression, COPD, h/ o PVCs and hypothyroidism presents to the ED complaining of nausea x 1 day. Patient reports she is having another "gastroparesis attack." She states she woke up this morning and felt nauseated and this has increasingly worsened throughout the day. She reports associated dry heaves. She states her acid reflux also seems to be worsening. She follows closely with Dr. Ridley and had an emend injection on 11/27. She was recently admitted last month and the month before. It appears that the patient has been started on erythromycin during each admission which she has self discontinued for diarrhea. She denies fevers, chills, URI symptoms, chest pain, SOB, vomiting, diarrhea, dysuria, calf pain and edema. In the ED pressure is slightly elevated otherwise VS are stable. CBC, PRP, Lipase LFTs are unremarkable, KUB is without obstruction. She received ketamine, versed, Reglan and Ativan. She states she is still having persistent nausea. She will be observed for further workup and treatment. Physical Exam (per Admitting): General Appearance: + pertinent finding (WD/WN 56 year old female lying inbed in NAD ) Head: normocephalic, atraumatic Eyes: PERRL, EOMI, sclerae normal ENT: hearing grossly normal, pharynx normal Neck: supple, no JVD Respiratory/Chest: chest non-tender, lungs clear, normal breath sounds, no respiratory distress, no accessory muscle use Cardiovascular: regular rate, rhythm, no edema, no gallop, no JVD, no murmur , normal peripheral pulses Abdomen/GI: normal bowel sounds, non tender, soft Back: normal inspection, no muscle spasm Extremities/Musculoskelatal: no calf tenderness, normal capillary refill, no pedal edema Neurologic/Psych: alert, oriented x 3, + pertinent finding (no focal deficits noted ) Skin: normal color, warm/dry, no rash Lymphatic: no adenopathy Hospital Course This is a 56 year old female with PMH of gastroparesis, depression, COPD, iron deficiency anemia presents with nausea Intractable Nausea secondary to Gastroparesis 12/02 Zofran + Phenergan Emend x 1 symptoms have resolved d/c home today 12/01 patient currently nauseous tried Zofran and Phenergan gave an extra low dose Phenergan appreciate GI input trying one dose of Emend patient usually responds to this clear liquid diet advance, hopefully d/c home in AM (12/02) COPD continue home inhalers tobacco use disorder - will need to stop smoking, though does not seem ready Hypothyroidism continue Synthroid Depression continue home medications Hx. of PVCs/PACs cont. Digoxin DVT ppx Lovenox FULL CODE Total time spent on discharge = 20 minutes This includes examination of the patient, discharge planning, medication reconciliation, and communication with other providers. Discharge Instructions Please follow-up with Dr. Groves on December 07 @ 11:10AM
[2016-12-02 10:04] VITALS: BP 100/63; PULSE 50; TEMP 36.7; O2SAT 96
[2016-12-02] MEDS ORDERED: NURSING VERBAL MED ORDER ONE (10:30)
[2017-03-30] MEDS ORDERED: PROC1TAB5 PO (01:03)
[2017-03-30] MEDS ORDERED: ONDA4TAB46 PO (01:20)
[2017-03-30] MEDS ORDERED: LEVO75TA5 PO (03:29)
[2017-03-30] MEDS ORDERED: FAMO20TA9 PO (09:48)
[2017-06-15] MEDS ORDERED: PROM1SUP19 PR (12:09)
[2017-06-18] MEDS ORDERED: OXYC-57 PO (10:33)
== END 2016-12-02 13:20 | disposition home or self-care (01) ==
LOC: ENRESERVTM → ENRESERVDT → C.EDB 13:43 → C.MS2W 20:09 → EDBEDREQ 20:30
PROVIDERS: ADMIT Hospitalist; ATTEND Family Medicine
DX: K31.84 Gastroparesis (principal); K91.1 Postgastric surgery syndromes; I48.91 Unspecified atrial fibrillation; F32.9 Major depressive disorder, single episode, unspecified; K21.0 Gastro-esophageal reflux disease with esophagitis; E78.5 Hyperlipidemia, unspecified; E03.9 Hypothyroidism, unspecified; J44.9 Chronic obstructive pulmonary disease, unspecified; K31.7 Polyp of stomach and duodenum; D50.9 Iron deficiency anemia, unspecified; K44.9 Diaphragmatic hernia without obstruction or gangrene; I34.0 Nonrheumatic mitral (valve) insufficiency; F17.200 Nicotine dependence, unspecified, uncomplicated; G62.9 Polyneuropathy, unspecified; Z90.3 Acquired absence of stomach [part of]; Z90.710 Acquired absence of both cervix and uterus; Z90.721 Acquired absence of ovaries, unilateral; Z83.3 Family history of diabetes mellitus; Z82.49 Family history of ischemic heart disease and other diseases of the circulatory system

== ENCOUNTER → 2017-02-02 | Outpatient (CLI) | payer OTHER ==
[~2017-02-02] MED LIST changes: +ALUMCHW2 PO; +CLON0.5T3 PO; +CLS1 PO; +DEXL30CA5 PO; +ERGO500037 PO; +ESCI10TA17 PO; +ESCI1TAB10 PO; +FAMO20TA9 PO; +FAMO40TA6 PO; +LEVO75TA5 PO; +LNX125 PO; +METO-157 PO; +ONDA4TAB46 PO; +OXYC-57 PO; +PRENTAB89 PO; +PROC1TAB5 PO; +PROM1SUP19 PR; +PRT40 PO; +VITAMIN B SQ; +[UNRECOGNIZED DRUG - CODE] IV
--- NOTE | 2017-02-02 13:30 | DIAGNOSTIC IMAGING REPORT ---
A-PORT CHECK CLINICAL HISTORY: Nonfunctioning A port. COMPARISON STUDY: Chest radiograph December 10, 2016. Fluoroscopy time: 0.1 minutes. FINDINGS: The right internal jugular [id number] was accessed. At this time, 5 cc of Optiray 300 was injected. There was immediate spillage of contrast within the apex of the catheter consistent with disruption of the catheter. There is also contrast leakage adjacent to the injection site. No further injection was performed given disruption of the catheter. IMPRESSION: Contrast extravasation from the right internal jugular catheter consistent with catheter disruption/fracture. This catheter should not be utilized. Electronically signed by: Alex Moy M.D. 02/02/2017 1:29 PM Dictated Date/Time: 02/02/2017 1:25 PM
== END | disposition home or self-care (01) ==
LOC: C.RAD 12:35
PROVIDERS: ATTEND Surgery
DX: T82.41XA Breakdown (mechanical) of vascular dialysis catheter, initial encounter (principal); Y84.9 Medical procedure, unspecified as the cause of abnormal reaction of the patient, or of later complication, without mention of misadventure at the time of the procedure

== ENCOUNTER 2017-02-27 18:27 | Observation (INO) | payer OTHER ==
[~2017-02-27] VITALS: Ht 165.1 cm; Wt 62.0 kg
[~2017-02-27 18:27] MED LIST changes: -ALUMCHW2 PO; -CLON0.5T3 PO; -CLS1 PO; -DEXL30CA5 PO; -ERGO500037 PO; -ESCI10TA17 PO; -ESCI1TAB10 PO; -FAMO20TA9 PO; -FAMO40TA6 PO; -LEVO75TA5 PO; -LNX125 PO; -METO-157 PO; -ONDA4TAB46 PO; -OXYC-57 PO; -PRENTAB89 PO; -PROC1TAB5 PO; -PROM1SUP19 PR; -PRT40 PO; -RANI300T PO; -VITAMIN B SQ; -[UNRECOGNIZED DRUG - CODE] IV
[2017-02-27] MEDS ORDERED: SODIUM CHLORIDE 0.9% 1000ML 1,000 ML IV STA (18:57)
[2017-02-27] MEDS ORDERED: MoRPHine SULFATE 10 MG/ML CARP/VIAL IV STA (18:57)
[2017-02-27] MEDS ORDERED: ONDANSETRON 8 MG/54 ML D5W IV ONE (19:00)
[2017-02-27] MEDS ORDERED: MoRPHine SULFATE 2 MG/ML CARP ONE (19:20)
[2017-02-27] MEDS ORDERED: MoRPHine SULFATE 4 MG/ML 1 ML CARP\\VIAL ONE (19:20)
--- NOTE | 2017-02-27 19:50 | DIAGNOSTIC IMAGING REPORT ---
SINGLE VIEW CHEST CLINICAL HISTORY: Vomiting. Epigastric abdominal pain. FINDINGS: An AP, portable, upright chest radiograph is compared to study dated 11/30/2016. Correlation is made with chest CT dated 06/20/2012. The examination is degraded by portable technique and patient rotation. A right-sided central venous infusion port is again noted. The catheter appears truncated as compared to previous and may have fractured. The cardiomediastinal silhouette is top normal for projection. There is mild atherosclerotic calcification of the thoracic aorta. Mild elevation of the right hemidiaphragm and right basilar atelectasis is unchanged, as is chronic interstitial thickening. No airspace consolidation or large pleural effusion is identified. Blunting of the right costophrenic sulcus is unchanged and likely represents pleural thickening. No pneumothorax is seen. The skeletal structures are osteopenic. The bony thorax is grossly intact. Call cystectomy clips are seen in the right upper quadrant. Postoperative change is noted at the gastroesophageal junction. IMPRESSION: 1. No acute cardiopulmonary abnormality. 2. A right-sided central venous infusion port is again noted. The catheter appears truncated, and this represents a change from previous. Fracture of the catheter is suspected. No catheter fragment is seen. Clinical correlation will be essential. Electronically signed by: Bayron Tillman M.D. 02/27/2017 7:49 PM Dictated Date/Time: 02/27/2017 7:43 PM
[2017-02-27 20:07] LABS: BASO % 0.4 %; BASO ABS # 0.02 K/uL (0-0.2); COMPLETE YES; EOS % 1.9 %; LYMPH % 21.2 %; MEAN CELL VOLUME 83.3 fL (80-100); MEAN CORPUSCULAR HEMOGLOBIN 27.5 pg (25-34); MEAN CORPUSCULAR HGB CONC 32.9 g/dl (32-36); MEAN PLATELET VOLUME 9.6 fL (7.4-10.4); MONO % 6.6 %; NEUT % 69.9 %; PLATELET COUNT 210 K/uL (130-400); RED BLOOD COUNT 4.08 M/uL (4.2-5.4); WHITE BLOOD COUNT 4.72 K/uL (4.8-10.8)
[2017-02-27 20:23] LABS: BUN/CREATININE RATIO 15.1 (10-20); CALCIUM 8.4 mg/dl (8.5-10.1); CREATININE 0.82 mg/dl (0.60-1.20)
[2017-02-27 20:25] LABS: ALB/GLOB RATIO 1.1 (0.9-2)
[2017-02-27] MEDS ORDERED: PROMETHAZINE HCL INJ 12.5 MG in SODIUM CHLORIDE 0.9% 50ML 50 ML IV STA (20:27)
--- NOTE | 2017-02-27 20:57 | EMERGENCY ROOM VISIT NOTE ---
History First contact with patient: 18:41 Chief Complaint: ABDOMINAL PAIN Stated Complaint: STOMACH PAIN NAUSEA Nursing Triage Summary: Pt c/o nausea, dry heaved. Pain epigastric area all day, pain increasing. Denies diarrhea and constipation Hx Gastroparesis. Had Hiatal Hernia surgery and had part of stomach removed. History of Present Illness The patient is a 56 year old female who presents to the Emergency Room with complaints of epigastric pain, nausea and dry heaving. The patient states that her symptoms started this morning. She has a history of gastroparesis and reports she has flareups frequently. She states this feels exactly like previous gastroparesis flareups. She has pain in her epigastrium. She has been nauseous and dry heaving. She reports that previous surgeries make it difficult for her to vomit. She reports a history of a hiatal hernia repair performed by Dr. Coyle and a gastric sleeve performed at [place]. The surgeries were done 4-5 years ago. She received an infusion of Emend yesterday. She denies chest pain, shortness of breath or changes in bowel movements. Review of Systems A complete 10 point review of systems was reviewed with the patient with pertinent positives and negatives as per history of present illness. All else were negative. 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 (14) Gastroparesis (15) GERD (gastroesophageal reflux disease) (16) Hyperlipidemia Nec/Nos (17) Hypothyroidism (18) Hypothyroidism Nos (19) Iron Defic Anemia Nos (20) Mitral regurgitation (21) MRSA bacteremia (22) Nausea (23) Neuropathy (24) Pemphigus vulgaris (25) Pernicious anemia (26) Pernicious Anemia (27) Premature atrial contractions (28) Tobacco abuse Surgical Problems: (1) H/O colonoscopy (2) H/O esophagogastroduodenoscopy (3) H/O oophorectomy (4) H/O: hysterectomy (5) History of bladder surgery (6) S/P hysterectomy (7) S/P laparoscopic sleeve gastrectomy (8) S/P partial gastrectomy (9) S/P repair of paraesophageal hernia (10) S/P repair of paraesophageal hernia (11) S/P tonsillectomy and adenoidectomy (12) S/P tonsillectomy and adenoidectomy Family History Diabetes mellitus MOTHER SISTER FH: aneurysm FH: cancer FH: heart disease FATHER MOTHER Hypertension BROTHER Kidney disease Social History Smoking Status: Current Every Day Smoker Alcohol Use: none Drug Use: none Marital Status: single Housing Status: lives alone Occupation Status: disabled Current/Historical Medications Scheduled Albuterol Sulfate (Proair Respiclick), 2 PUFFS INH QID Dexlansoprazole (Dexilant), 30 MG PO DAILY Digoxin (Digoxin), 0.125 MG PO DAILY Escitalopram (Lexapro), 10 MG PO DAILY Famotidine (Pepcid), 20 MG PO BID Fluticasone Prop/Salmeterol (Advair Diskus 250-50 Mcg/Dose), 1 PUFF INH BID Fosaprepitant Dimeglumine (Emend), 5 ML IV MONTHLY Levothyroxine Sodium (Levothyroxine Sodium), 75 MCG PO DAILY Metoclopramide (Reglan), 10 MG PO ACHS Multivit-Min W/Fe-Fa ( And Iron), 1 TAB PO DAILY Scheduled PRN Albuterol Sulf (Proventil 0.083% 2.5MG/3ML), 2.5 MG INH Q4H PRN for Wheezing Aluminum Hydroxide-Mag Trisil (Gaviscon), 2 CAP PO TID PRN for Dyspepsia Clonazepam (Klonopin), 0.5 MG PO TID PRN for Anxiety/Agitation Ondansetron Hcl (Zofran), 4 MG PO Q6H PRN for Nausea Prochlorperazine Maleate (Compazine), 10 MG PO Q6H PRN for Nausea or Vomiting Allergies Coded Allergies: Amoxicillin (Verified Adverse Reaction, Intermediate, yeast infection, 02/27) NSAIDs (Verified Adverse Reaction, Mild, indegestion, 02/27/17) Rofecoxib (Verified Adverse Reaction, Mild, indigestion, 02/27/17) Scopolamine (Verified Adverse Reaction, Mild, rash from patch, 02/27/17) Physical Exam Vital Signs Date Time Temp Pulse Resp B/P (MAP) Pulse Ox O2 Delivery O2 Flow Rate FiO2 02/27/17 21:10 67 20 149/102 98 Room Air 02/27/17 19:56 64 20 134/91 98 02/27/17 18:34 36.8 86 17 136/91 97 Room Air Physical Exam VITALS: Vitals are noted on the nurse's note and reviewed by myself. Vital signs stable. GENERAL: This is a 56-year-old female, uncomfortable appearing, dry heaving into an emesis bag. HEENT: Normocephalic. PERRLA. EOMI. Nares patent. Mucous membranes moist. Neck is supple without nuchal rigidity. HEART: Regular rate and rhythm without murmurs gallops or rubs. LUNGS: Clear to auscultation bilaterally without wheezes, rales or rhonchi. ABDOMEN: Positive bowel sounds x 4. Soft, tender to palpation over the epigastric region. No guarding or rebound tenderness. No palpable masses. NEURO: Patient was alert and oriented to person place and time. Medical Decision & Procedures ER Provider Diagnostic Interpretation: SINGLE VIEW CHEST FINDINGS: An AP, portable, upright chest radiograph is compared to study dated 11/30/2016. Correlation is made with chest CT dated 06/20/2012. The examination is degraded by portable technique and patient rotation. A right-sided central venous infusion port is again noted. The catheter appears truncated as compared to previous and may have fractured. The cardiomediastinal silhouette is top normal for projection. There is mild atherosclerotic calcification of the thoracic aorta. Mild elevation of the right hemidiaphragm and right basilar atelectasis is unchanged, as is chronic interstitial thickening. No airspace consolidation or large pleural effusion is identified. Blunting of the right costophrenic sulcus is unchanged and likely represents pleural thickening. No pneumothorax is seen. The skeletal structures are osteopenic. The bony thorax is grossly intact. Call cystectomy clips are seen in the right upper quadrant. Postoperative change is noted at the gastroesophageal junction. IMPRESSION: 1. No acute cardiopulmonary abnormality. 2. A right-sided central venous infusion port is again noted. The catheter appears truncated, and this represents a change from previous. Fracture of the catheter is suspected. No catheter fragment is seen. Clinical correlation will be essential. Laboratory Results Test 02/27/17 19:59 Immature Granulocyte % (Auto) 0.0 % White Blood Count 4.72 K/uL (4.8-10.8) Red Blood Count 4.08 M/uL (4.2-5.4) Hemoglobin 11.2 g/dL (12.0-16.0) Hematocrit 34.0 % (37-47) Mean Corpuscular Volume 83.3 fL (80-100) Mean Corpuscular Hemoglobin 27.5 pg (25-34) Mean Corpuscular Hemoglobin Concent 32.9 g/dl (32-36) Platelet Count 210 K/uL (130-400) Mean Platelet Volume 9.6 fL (7.4-10.4) Neutrophils (%) (Auto) 69.9 % Lymphocytes (%) (Auto) 21.2 % Monocytes (%) (Auto) 6.6 % Eosinophils (%) (Auto) 1.9 % Basophils (%) (Auto) 0.4 % Neutrophils # (Auto) 3.30 K/uL (1.4-6.5) Lymphocytes # (Auto) 1.00 K/uL (1.2-3.4) Monocytes # (Auto) 0.31 K/uL (0.11-0.59) Eosinophils # (Auto) 0.09 K/uL (0-0.5) Basophils # (Auto) 0.02 K/uL (0-0.2) Immature Granulocyte # (Auto) 0.00 K/uL (0.00-0.02) Total Bilirubin 0.5 mg/dl (0.2-1) Aspartate Amino Transf (AST/SGOT) 10 U/L (15-37) Alanine Aminotransferase (ALT/SGPT) 12 U/L (12-78) Alkaline Phosphatase 87 U/L (45-117) Total Protein 6.6 gm/dl (6.4-8.2) Albumin 3.5 gm/dl (3.4-5.0) Globulin 3.1 gm/dl (2.5-4.0) Albumin/Globulin Ratio 1.1 (0.9-2) Lipase 104 U/L (73-393) Medications Administered Medications (Trade) Dose Ordered Sig/Marisol Route Start Time Stop Time Status Last Admin Dose Admin Sodium Chloride 1,000 ml @ 999 mls/hr Q1H1M STAT IV 02/27/17 18:57 02/27/17 19:57 DC 02/27/17 19:57 999 MLS/HR Ondansetron HCl (Zofran 8mg Iv) 8 mg NOW ONCE IV 02/27/17 19:00 02/27/17 19:01 DC 02/27/17 19:57 8 MG Morphine Sulfate (MoRPHine SULFATE INJ) 2 mg STK-MED ONCE .ROUTE 02/27/17 19:20 02/27/17 19:21 DC 02/27/17 19:57 2 MG Morphine Sulfate (MoRPHine SULFATE INJ) 4 mg STK-MED ONCE .ROUTE 02/27/17 19:20 02/27/17 19:21 DC 02/27/17 19:57 4 MG Promethazine HCl 12.5 mg/Sodium Chloride 50.5 ml @ 204 mls/hr NOW STAT IV 02/27/17 20:27 02/27/17 20:41 DC 02/27/17 20:37 204 MLS/HR ED Course The patient was evaluated as above. Labs were drawn and IV access was obtained. Patient was medicated with 8 mg Zofran, 6 mg morphine and 1 L normal saline solution. Patient was reevaluated and requested more nausea medication. She was given 12.5 mg Phenergan IV Patient was reevaluated and had continued nausea. She requested admission. Case was discussed with the [facility] hospitalist, Dr. Cruz. They agreed to evaluate the patient for admission. Medical Decision Differential diagnosis includes gastroparesis, bowel obstruction, gastritis, gastroenteritis, among others. The patient is a 56-year-old female who presents today complaining of nausea and dry heaving. She has a history of gastroparesis and states this feels similar to previous flareups. Labs revealed no leukocytosis. There is a mild anemia. No concerning electrolyte abnormalities. Chest x-ray showed no acute abnormalities. The patient was given IV fluids as well as multiple nausea medications. She had continued nausea and dry heaving. She will need to be admitted for further evaluation and inpatient treatment. Medication reconciliation: I attest that I have personally reviewed the patient 's current medication list. Blood pressure screening: Patient was found to have an elevated blood pressure and was referred to their primary care provider for recheck and further treatment. Impression Primary Impression: Intractable nausea and vomiting Departure Information Referrals Jaleel Coppola M.D. (PCP) Patient Instructions My [facility] Problem Qualifiers Primary Impression: Intractable nausea and vomiting Vomiting type: unspecified Qualified Codes: R11.2 - Nausea with vomiting, unspecified
[2017-02-27] MEDS ORDERED: ALUMINUM/MAGNESIUM/SIMETH (MAALOX MAX) 30 ML UDC PO PRN (21:30)
[2017-02-27] MEDS ORDERED: ACETAMINOPHEN 325 MG TAB PO PRN (21:30)
[2017-02-27] MEDS ORDERED: CLONAZEPAM 0.5 MG TAB PO PRN (21:30)
[2017-02-27] MEDS ORDERED: MAGNESIUM HYDROXIDE SUSP 30 ML UDC PO PRN (21:30)
--- NOTE | 2017-02-27 21:39 | History and Physical ---
History & Physical Date & Time of Service: Feb 27, 2017 at 21:24 Chief Complaint: Stomach Pain Nausea Primary Care Physician: Jaleel Coppola M.D. History of Present Illness Source: patient, clinic records, hospital records This is a 56 year old female with a PMH of recurrent gastroparesis, dumping syndrome, GERD, COPD, recurrent PVCs, hypothyroidism presents with nausea/dry heaves for the past day; states that she gets Emend injections monthly; received one injection yesterday (February 26); but has been nauseous since then; she has had multiple admissions due to this problem and follows with Dr. Rildey for her gastroparesis. Her meds have been adjusted as an outpatient ; she now takes Pepcid BID, Dexilant, Reglan TID, compazine PRN. She was in her usual state of health; last admission here at [facility] was in November and she had been doing well since then. Was given Zofran, Phenergan and fluids in the ER, but her symptoms persisted. Past Medical/Surgical History Medical Problems: (1) Anemia, iron deficiency Status: Chronic (2) Anxiety Status: Chronic (3) Anxiety State Nos Status: Chronic (4) Asthma Status: Chronic (5) Chronic Obstructive Asthma, Nos Status: Chronic (6) COPD (chronic obstructive pulmonary disease) Status: Chronic (7) Depression Status: Chronic (8) Diverticulosis Status: Chronic (9) Esophagitis Nos Status: Chronic (10) Frequent PVCs Status: Chronic (11) Gastroparesis Status: Chronic (12) GERD (gastroesophageal reflux disease) Status: Chronic (13) Hyperlipidemia Nec/Nos Status: Chronic (14) Hypothyroidism Status: Chronic (15) Hypothyroidism Nos Status: Chronic (16) Iron Defic Anemia Nos Status: Chronic (17) Mitral regurgitation Permanent Comment: moderate per echo 09/21/15 Status: Chronic (18) MRSA bacteremia Status: Resolved (19) Neuropathy Status: Chronic (20) Pemphigus vulgaris Status: Chronic (21) Pernicious anemia Status: Chronic (22) Pernicious Anemia Status: Chronic (23) Premature atrial contractions Status: Chronic (24) Tobacco abuse Status: Chronic Surgical Problems: (1) H/O colonoscopy Permanent Comment: 08/14/2013- Moderate diverticulosis in the sigmoid colon, in the descending colon and in the ascending colon. Internal hemorrhoids. Normal mucosa in the entire examined colon. Biopsied. Status: Chronic (2) H/O esophagogastroduodenoscopy Permanent Comment: 04/22/2015- - Stretta treatment to distal esophagus / GE junction and cardia.Three surgical logan were found in the esophagus at the GE junction and removed. Surgical suture was also found at the GE junction without evidence of dehiscence. Grade B GERD / erosive esophagitis. Sleeve gastrectomy with a large-sized pouch, intact staple line, post-operative mucosal scar, and evidence f pyloroplasty. Small gastric polyp, likely hyperplastic vs fundic gland polyp. Small hiatus hernia. Status: Chronic (3) H/O oophorectomy Permanent Comment: left ovary Status: Chronic (4) H/O: hysterectomy Status: Resolved (5) History of bladder surgery Status: Chronic (6) S/P hysterectomy Status: Chronic (7) S/P laparoscopic sleeve gastrectomy Status: Chronic (8) S/P partial gastrectomy Status: Chronic (9) S/P repair of paraesophageal hernia Status: Chronic (10) S/P repair of paraesophageal hernia Permanent Comment: resulted in volvulus, required abdominal exploration Status: Chronic (11) S/P tonsillectomy and adenoidectomy Status: Resolved (12) S/P tonsillectomy and adenoidectomy Status: Chronic Family History Diabetes mellitus MOTHER SISTER FH: aneurysm FH: cancer FH: heart disease FATHER MOTHER Hypertension BROTHER Kidney disease Social History Smoking Status: Current Every Day Smoker Drug Use: none Marital Status: single Housing status: lives with family Occupational Status: disabled Immunizations History of Influenza Vaccine: Yes History of Tetanus Vaccine?: Unknown History of Pneumococcal: Unknown History of Hepatitis B Vaccine: Unknown Multi-Drug Resistant Organisms History of MDRO: Yes Type of MDRO: MRSA Allergies Coded Allergies: Amoxicillin (Verified Adverse Reaction, Intermediate, yeast infection, 02/27) NSAIDs (Verified Adverse Reaction, Mild, indegestion, 02/27/17) Rofecoxib (Verified Adverse Reaction, Mild, indigestion, 02/27/17) Scopolamine (Verified Adverse Reaction, Mild, rash from patch, 02/27/17) Home Medications Scheduled Albuterol Sulfate (Proair Respiclick), 2 PUFFS INH QID Dexlansoprazole (Dexilant), 30 MG PO DAILY Digoxin (Digoxin), 0.125 MG PO DAILY Escitalopram (Lexapro), 10 MG PO DAILY Famotidine (Pepcid), 20 MG PO BID Fluticasone Prop/Salmeterol (Advair Diskus 250-50 Mcg/Dose), 1 PUFF INH BID Fosaprepitant Dimeglumine (Emend), 5 ML IV MONTHLY Levothyroxine Sodium (Levothyroxine Sodium), 75 MCG PO DAILY Metoclopramide (Reglan), 10 MG PO ACHS Multivit-Min W/Fe-Fa ( And Iron), 1 TAB PO DAILY Scheduled PRN Albuterol Sulf (Proventil 0.083% 2.5MG/3ML), 2.5 MG INH Q4H PRN for Wheezing Aluminum Hydroxide-Mag Trisil (Gaviscon), 2 CAP PO TID PRN for Dyspepsia Clonazepam (Klonopin), 0.5 MG PO TID PRN for Anxiety/Agitation Ondansetron Hcl (Zofran), 4 MG PO Q6H PRN for Nausea Prochlorperazine Maleate (Compazine), 10 MG PO Q6H PRN for Nausea or Vomiting Review of Systems Constitutional: No fever, No chills, No sweats, No weakness, No fatigue Respiratory: No cough, No sputum, No shortness of breath, No dyspnea on exertion Cardiovascular: No chest pain, No orthopnea, No edema, No palpitations Abdomen: + pain, + nausea, No vomiting (dry heaves), No diarrhea, No constipation, No GI bleeding Musculoskeletal: No joint pain, No muscle pain Genitourinary - Female: No dysuria, No urinary frequency, No urinary urgency, No urinary incontinence, No urinary retention, No hematuria Neurologic: No weakness, No numbness/tingling Psychiatric: No depression symptoms (controlled with medications), No anxiety Hematologic / Lymphatic: No abnormal bleeding/bruising Integumentary: No rash Allergic / Immunologic: No environmental allergies, No seasonal allergies Physical Exam Vital Signs Date Time Temp Pulse Resp B/P (MAP) Pulse Ox O2 Delivery O2 Flow Rate FiO2 02/27/17 21:10 67 20 149/102 98 Room Air 02/27/17 19:56 64 20 134/91 98 02/27/17 18:34 36.8 86 17 136/91 97 Room Air General Appearance: + mild distress (secondary to nausea) Head: normocephalic, atraumatic Eyes: normal inspection ENT: hearing grossly normal Neck: supple Respiratory/Chest: lungs clear, normal breath sounds, no respiratory distress, no accessory muscle use, + pertinent finding (R chest wall - port) Cardiovascular: regular rate, rhythm, no edema, no gallop, no JVD, no murmur, normal peripheral pulses Abdomen/GI: normal bowel sounds, soft, + tenderness (epigastric tenderness) Extremities/Musculoskelatal: no calf tenderness, normal capillary refill, no pedal edema Neurologic/Psych: no motor/sensory deficits, alert, normal mood/affect Skin: normal color Diagnostics Laboratory Results Results Past 24 Hours Test 02/27/17 19:59 Range/Units White Blood Count 4.72 4.8-10.8 K/uL Red Blood Count 4.08 4.2-5.4 M/uL Hemoglobin 11.2 12.0-16.0 g/dL Hematocrit 34.0 37-47 % Mean Corpuscular Volume 83.3 80-100 fL Mean Corpuscular Hemoglobin 27.5 25-34 pg Mean Corpuscular Hemoglobin Concent 32.9 32-36 g/dl Platelet Count 210 130-400 K/uL Mean Platelet Volume 9.6 7.4-10.4 fL Neutrophils (%) (Auto) 69.9 % Lymphocytes (%) (Auto) 21.2 % Monocytes (%) (Auto) 6.6 % Eosinophils (%) (Auto) 1.9 % Basophils (%) (Auto) 0.4 % Neutrophils # (Auto) 3.30 1.4-6.5 K/uL Lymphocytes # (Auto) 1.00 1.2-3.4 K/uL Monocytes # (Auto) 0.31 0.11-0.59 K/uL Eosinophils # (Auto) 0.09 0-0.5 K/uL Basophils # (Auto) 0.02 0-0.2 K/uL RDW Standard Deviation 49.5 36.4-46.3 fL RDW Coefficient of Variation 16.3 11.5-14.5 % Immature Granulocyte % (Auto) 0.0 % Immature Granulocyte # (Auto) 0.00 0.00-0.02 K/uL Sodium Level 142 136-145 mmol/L Potassium Level 4.0 3.5-5.1 mmol/L Chloride Level 109 98-107 mmol/L Carbon Dioxide Level 23 21-32 mmol/L Anion Gap 10.0 3-11 mmol/L Blood Urea Nitrogen 12 7-18 mg/dl Creatinine 0.82 0.60-1.20 mg/dl Est Creatinine Clear Calc Drug Dose 67.3 ml/min Estimated GFR () 91.4 Estimated GFR (Non- 78.9 BUN/Creatinine Ratio 15.1 10-20 Random Glucose 103 70-99 mg/dl Calcium Level 8.4 8.5-10.1 mg/dl Total Bilirubin 0.5 0.2-1 mg/dl Aspartate Amino Transf (AST/SGOT) 10 15-37 U/L Alanine Aminotransferase (ALT/SGPT) 12 12-78 U/L Alkaline Phosphatase 87 45-117 U/L Total Protein 6.6 6.4-8.2 gm/dl Albumin 3.5 3.4-5.0 gm/dl Globulin 3.1 2.5-4.0 gm/dl Albumin/Globulin Ratio 1.1 0.9-2 Lipase 104 73-393 U/L CXR normal EKG Sinus Bradycardia Normal EKG Impression Assessment and Plan This is a 56 year old female with a PMH of recurrent gastroparesis, dumping syndrome, GERD, COPD, recurrent PVCs, hypothyroidism presents with nausea/dry heaves Gastroparesis/Dumping Syndrome recurrent gastroparesis, difficult to control will try one time dose of Emend 115mg cannot use erythromycin due to bad side effects will continue Reglan TID, Pepcid BID, Dexilant check KUB check TSH GI consult for further input observe in med-surg for now Hypothyroidism check TSH cont. Synthroid COPD continue home inhalers Recurrent PVCs cont. Digoxin DVT ppx SCDs FULL CODE VTE Prophylaxis VTE Risk Assessment Done? Y/N: Yes Risk Level: Low
--- NOTE | 2017-02-27 22:02 | DIAGNOSTIC IMAGING REPORT ---
KUB CLINICAL HISTORY: Generalized abdominal pain. FINDINGS: 2 AP supine abdominal radiographs are compared to study dated 11/30/2016 and correlated with abdominal CT dated 11/02/2016. There is a nonobstructed abdominal bowel gas pattern. A gastric band projects just above the gastroesophageal junction, and suture material is seen in the left upper quadrant. Cholecystectomy clips are noted. There is no evidence of intraperitoneal free air on these supine views. Mild colonic fecal retention is observed. There are numerous phleboliths in the pelvis. The skeletal structures are osteopenic. The bony structures appear intact. The lung bases are clear as imaged. IMPRESSION: 1. Nonobstructed abdominal bowel gas pattern. 2. Postoperative changes as above, similar to prior studies. Electronically signed by: Bayron Tillman M.D. 02/27/2017 10:01 PM Dictated Date/Time: 02/27/2017 9:59 PM
[2017-02-27] MEDS ORDERED: ALUM HYDROX/MAG TRISILICATE CHEW PO PRN (22:15)
[2017-02-27] MEDS ORDERED: POLYETHYLENE (MIRALAX) 17 GM PACK PO PRN (22:15)
[2017-02-27 22:30] VITALS: BP 140/103; PULSE 62; TEMP 36.7; O2SAT 97; Ht 165.1 cm; Wt 62.0 kg
[2017-02-27] MEDS: SODIUM CHLORIDE 0.9% 1000ML 1,000 ML IV SCH (22:56)
[2017-02-27] MEDS ORDERED: FOSAPREPITANT DIMEGLUMINE INJ 115 MG in SODIUM CHLORIDE 0.9% 100ML 111.2 ML IV ONE (23:00)
[2017-02-28] MEDS ORDERED: MoRPHine SULFATE 2 MG/ML CARP IV STA (00:20)
[2017-02-28] MEDS ORDERED: MoRPHine SULFATE 2 MG/ML CARP IV PRN (00:30)
[2017-02-28] MEDS ORDERED: PROMETHAZINE HCL INJ 12.5 MG in SODIUM CHLORIDE 0.9% 50ML 50 ML IV STA (00:41)
[2017-02-28] MEDS ORDERED: IV FLUIDS COMPLETED PRN (00:45)
[2017-02-28] MEDS ORDERED: PROCHLORPERAZINE INJ 10 MG in SYRINGE 8 ML IV ONE (01:45)
[2017-02-28 02:05] VITALS: BP 125/85
[2017-02-28] MEDS: ONDANSETRON INJ 2 MG/ML 2 ML VIAL IV PRN ×3 (04:04→18:13)
[2017-02-28] MEDS ORDERED: NURSING VERBAL MED ORDER ONE (04:45)
[2017-02-28] MEDS ORDERED: METOCLOPRAMIDE HCL 10 MG TAB PO ONE (05:15)
[2017-02-28] MEDS: LEVOTHYROXINE 75 MCG TAB PO SCH (06:10)
[2017-02-28] MEDS ORDERED: METOCLOPRAMIDE HCL 10 MG TAB PO SCH (07:00)
[2017-02-28 07:08] LABS: HEMATOCRIT 37.8 % (37-47); MEAN CELL VOLUME 83.8 fL (80-100); MEAN CORPUSCULAR HEMOGLOBIN 26.8 pg (25-34); MEAN PLATELET VOLUME 9.7 fL (7.4-10.4); PLATELET COUNT 240 K/uL (130-400); RED BLOOD COUNT 4.51 M/uL (4.2-5.4); WHITE BLOOD COUNT 6.52 K/uL (4.8-10.8)
[2017-02-28 07:53] LABS: BUN/CREATININE RATIO 10.3 (10-20); CALCIUM 8.3 mg/dl (8.5-10.1); CREATININE 0.81 mg/dl (0.60-1.20); MAGNESIUM 1.9 mg/dl (1.8-2.4); POTASSIUM 3.8 mmol/L (3.5-5.1)
[2017-02-28] MEDS: PANTOprazole SOD 40 MG TAB PO SCH (08:00)
[2017-02-28] MEDS: FAMOTIDINE 20 MG TAB PO SCH ×2 (08:00→21:34)
[2017-02-28] MEDS: ESCITALOPRAM OXALATE 10 MG TAB PO SCH (08:00)
[2017-02-28] MEDS: PRENATAL VITAMIN TAB PO SCH (08:00)
[2017-02-28] MEDS: FLUTICASONE/SALMETEROL 250/50 (ADVAIR) 14 PUFF/1 INHALER INH SCH ×2 (08:00→20:00)
[2017-02-28] MEDS: ALBUTEROL HFA 8 GM INHALER INH SCH ×4 (08:00→20:00)
[2017-02-28 08:07] VITALS: BP 153/93; PULSE 66; TEMP 36.6; O2SAT 98
[2017-02-28] MEDS: PROCHLORPERAZINE MALEATE 10 MG TAB PO PRN ×2 (08:19→14:28)
[2017-02-28 08:25] LABS: THYROID STIMULATING HORMONE 4.26 uIu/ml (0.300-4.500)
--- NOTE | 2017-02-28 08:35 | Gastrointestinal Consultation ---
Gastrointestinal Consultation Date of Consultation: Feb 28, 2017 Attending Physician: Taisha Consulting Physician: Juvenal Reason for Consultation: nausea, gastropareisis History of Present Illness Patient is a 56 year old female well known to our service with a PMH significant for gastroparesis, dumping syndrome, depression, COPD, hx of PVs and hypothyroidism - GI is consulted for management of chronic GI symptoms. As an outpatient uses Emend IV infusion once a month, Reglan 10mg AC/HS, Compazine 10mg PO q6hr prn nausea and Zofran 4mg PO q6hrs prn nausea. Pt was seen and examined this AM. Tells me after eating chicken noodle soup yesterday she began another flare of her gastroparesis with abdominal pain and nausea. No vomiting. No changes in her BMs KUB: Nonobstructed abdominal bowel gas pattern. Postoperative changes as above, similar to prior studies. Past Medical/Surgical History Medical Problems: (1) Anxiety State Nos Status: Chronic (2) Chronic Obstructive Asthma, Nos Status: Chronic (3) Dehydration Status: Acute (4) Dehydration Status: Acute (5) Dumping syndrome Status: Acute (6) Epigastric abdominal pain Status: Acute (7) Esophagitis Nos Status: Chronic (8) Hyperlipidemia Nec/Nos Status: Chronic (9) Hypothyroidism Nos Status: Chronic (10) Intractable nausea and vomiting Status: Acute (11) Intractable nausea and vomiting Status: Acute (12) Intractable nausea and vomiting Status: Acute (13) Intractable vomiting Status: Acute (14) Iron Defic Anemia Nos Status: Chronic (15) Nausea Status: Acute (16) Pernicious Anemia Status: Chronic Surgical Problems: (1) S/P repair of paraesophageal hernia Status: Chronic Past Medical History: Anxiety, Dumping syndrome, Gastroparesis, Hyperlipidemia, Hypothyroidism, intractable nausea and vomiting, Pernicious Anemia, GERD, iron deficiency anemia , MRSA bacteremia, PACs, tobacco abuse Past Surgical History: Total hysterectomy Bladder surgery Sleeve gastrectomy, repair of paraesophageal hernia Tonsillectomy & Adenoidectomy Family History Diabetes mellitus MOTHER SISTER FH: aneurysm FH: cancer FH: heart disease FATHER MOTHER Hypertension BROTHER Kidney disease Social History Smoking Status: Current Every Day Smoker Alcohol Use: none Drug Use: none Marital Status: single Housing Status: lives alone Occupation Status: disabled Allergies Coded Allergies: Amoxicillin (Verified Adverse Reaction, Intermediate, yeast infection, 02/27) NSAIDs (Verified Adverse Reaction, Mild, indegestion, 02/27/17) Rofecoxib (Verified Adverse Reaction, Mild, indigestion, 02/27/17) Scopolamine (Verified Adverse Reaction, Mild, rash from patch, 02/27/17) Current Medications Home Meds and Scripts Medications Dose Route/Sig Max Daily Dose Days Date Category Pepcid (Famotidine) 20 Mg Tab 20 Mg PO BID 02/26/17 Reported Digoxin 0.125 Mg Tab 0.125 Mg PO DAILY 11/02/16 Reported Proventil 0.083% 2.5MG/3ML (Albuterol Sulf) 2.5 Mg/3 Ml Nebu 2.5 Mg INH Q4H PRN 11/02/16 Reported Proair Respiclick (Albuterol Sulfate) 108 Mcg/Act Aer 2 Puffs INH QID 11/02/16 Reported And Iron ( Multivit-Min W/Fe-Fa) 1 Tab Tab 1 Tab PO DAILY 11/02/16 Reported Dexilant (Dexlansoprazole) 30 Mg Cap 30 Mg PO DAILY 11/02/16 Reported Reglan (Metoclopramide HCl) 10 Mg Tab 10 Mg PO ACHS 10/06/16 Reported Emend (Fosaprepitant Dimeglumine) 150 Mg Rosalia 5 Ml IV MONTHLY 10/06/16 Reported Gaviscon (Aluminum Hydroxide-Mag Trisil) 1 Chw Chw 2 Cap PO TID PRN 08/23/16 Reported Advair Diskus 250-50 Mcg/Dose (Fluticasone Prop/Salmeterol) 14 Puff/1 Inhaler Aerp 1 Puff INH BID 11/24/15 Reported Lexapro (Escitalopram Oxalate) 10 Mg Tab 10 Mg PO DAILY 11/24/15 Reported Zofran (Ondansetron HCl) 4 Mg Tab 4 Mg PO Q6H PRN 07/25/15 Reported Compazine (Prochlorperazine Maleate) 10 Mg Tab 10 Mg PO Q6H PRN 07/25/15 Reported Klonopin (Clonazepam) 0.5 Mg Tab 0.5 Mg PO TID PRN 06/22/14 Reported Levothyroxine Sodium 75 Mcg Tab 75 Mcg PO DAILY 10/31/13 Reported Review of Systems Constitutional: No fever, No chills Respiratory: No cough, No shortness of breath Cardiac: No chest pain Abdomen: + pain, + nausea, No vomiting, No diarrhea, No constipation Physical Exam Date Time Temp Pulse Resp B/P (MAP) Pulse Ox O2 Delivery O2 Flow Rate FiO2 02/28/17 08:07 36.6 66 20 153/93 (113) 98 Room Air 02/28/17 02:05 125/85 (98) 02/28/17 00:00 Room Air 02/27/17 22:30 36.7 62 16 140/103 97 Room Air 02/27/17 22:07 67 20 155/111 98 02/27/17 21:10 67 20 149/102 98 Room Air 02/27/17 19:56 64 20 134/91 98 02/27/17 18:34 36.8 86 17 136/91 97 Room Air General Appearance: no apparent distress Eyes: PERRL ENT: hearing grossly normal Neck: supple Respiratory/Chest: lungs clear Cardiovascular: regular rate, rhythm, no gallop, no JVD, no murmur Abdomen: normal bowel sounds, soft, no organomegaly, no pulsatile mass Neurologic/Psych: alert, normal mood/affect, oriented x 3 Skin: normal color Laboratory Results Last 24 Hours Test 02/27/17 19:59 02/28/17 06:10 White Blood Count 4.72 K/uL 6.52 K/uL Red Blood Count 4.08 M/uL 4.51 M/uL Hemoglobin 11.2 g/dL 12.1 g/dL Hematocrit 34.0 % 37.8 % Mean Corpuscular Volume 83.3 fL 83.8 fL Mean Corpuscular Hemoglobin 27.5 pg 26.8 pg Mean Corpuscular Hemoglobin Concent 32.9 g/dl 32.0 g/dl Platelet Count 210 K/uL 240 K/uL Mean Platelet Volume 9.6 fL 9.7 fL Neutrophils (%) (Auto) 69.9 % Lymphocytes (%) (Auto) 21.2 % Monocytes (%) (Auto) 6.6 % Eosinophils (%) (Auto) 1.9 % Basophils (%) (Auto) 0.4 % Neutrophils # (Auto) 3.30 K/uL Lymphocytes # (Auto) 1.00 K/uL Monocytes # (Auto) 0.31 K/uL Eosinophils # (Auto) 0.09 K/uL Basophils # (Auto) 0.02 K/uL RDW Standard Deviation 49.5 fL 50.2 fL RDW Coefficient of Variation 16.3 % 16.4 % Immature Granulocyte % (Auto) 0.0 % Immature Granulocyte # (Auto) 0.00 K/uL Sodium Level 142 mmol/L 137 mmol/L Potassium Level 4.0 mmol/L 3.8 mmol/L Chloride Level 109 mmol/L 103 mmol/L Carbon Dioxide Level 23 mmol/L 24 mmol/L Anion Gap 10.0 mmol/L 10.0 mmol/L Blood Urea Nitrogen 12 mg/dl 8 mg/dl Creatinine 0.82 mg/dl 0.81 mg/dl Est Creatinine Clear Calc Drug Dose 67.3 ml/min 68.1 ml/min Estimated GFR () 91.4 92.8 Estimated GFR (Non- 78.9 80.1 BUN/Creatinine Ratio 15.1 10.3 Random Glucose 103 mg/dl 134 mg/dl Calcium Level 8.4 mg/dl 8.3 mg/dl Total Bilirubin 0.5 mg/dl Aspartate Amino Transf (AST/SGOT) 10 U/L Alanine Aminotransferase (ALT/SGPT) 12 U/L Alkaline Phosphatase 87 U/L Total Protein 6.6 gm/dl Albumin 3.5 gm/dl Globulin 3.1 gm/dl Albumin/Globulin Ratio 1.1 Lipase 104 U/L Magnesium Level 1.9 mg/dl Thyroid Stimulating Hormone (TSH) 4.260 uIu/ml Impression Patient is a 56 year old female with a suspected flare of gastroparesis with nausea and abdominal pain, imaging is unremarkable. Plan Emend today Advance to clear liquids as tolerated Continue symptomatic management w/ outpatient medications I performed a history and physical examination of the patient. I have discussed the patient's case, impression and plan with VANIA Cintron. Her note reflects my findings and plan. No indication for endoscopy. Follow up with regular providers as out patient. Elio Sanford MD
[2017-02-28] MEDS: PROMETHAZINE HCL INJ 12.5 MG in SODIUM CHLORIDE 0.9% 50ML 50 ML IV PRN ×2 (08:54→15:09)
[2017-02-28] MEDS: METOCLOPRAMIDE HCL 10 MG TAB PO SCH ×2 (11:28→16:38)
[2017-02-28] MEDS: SODIUM CHLORIDE 0.9% 1000ML 1,000 ML IV SCH (11:28)
--- NOTE | 2017-02-28 14:28 | Progress Note ---
Internal Med Progress Note Date of Service: Feb 28, 2017. Provider Documentation: SUBJECTIVE: Seen and examined at bedside. States having persistent dry heaves. Denies vomiting, abd pain, chest pain, SOB, fever, chills or diarrhea. Offers no other complaints. OBJECTIVE: Vital Signs-as noted below Physical Exam: General Appearance:Moderately built and nourished, no apparent distress Head: normocephalic, Atraumatic Eyes: normal inspection, EOMI, PERRL Neck: supple, Trachea midline Respiratory/Chest: Normal breath sounds, CTA Cardiovascular: S1, S2, No murmur Chest: Port on Right side of chest Abdomen/GI:Soft, Non tender, Bowel sounds present Extremities/Musculoskelatal:normal inspection, no edema Neurologic/Psych:AAOX3, grossly no focal neurological deficits Skin: normal color, warm Lab data as noted below. ASSESSMENT & PLAN: Patient is a 56 yr F, with a PMH of recurrent gastroparesis, dumping syndrome, GERD, COPD, recurrent PVCs, hypothyroidism presents with nausea/dry heaves Gastroparesis/Dumping Syndrome H/O recurrent gastroparesis Received Emend 115mg today continue Reglan TID, Pepcid BID, Dexilant KUB:Non obstructed abdominal bowel gas pattern Advance to clear liquid diet as tolerated Appreciate GI input Continue IV fluids Monitor electrolytes Hypothyroidism TSH:4.2 continue Synthroid COPD continue home inhalers Recurrent PVCs continue Digoxin DVT Px SCDs Code Status: Full code Vital Signs: Date Time Temp Pulse Resp B/P (MAP) Pulse Ox O2 Delivery O2 Flow Rate FiO2 02/28/17 08:07 36.6 66 20 153/93 (113) 98 Room Air 02/28/17 08:00 Room Air 02/28/17 02:05 125/85 (98) 02/28/17 00:00 Room Air 02/27/17 22:30 36.7 62 16 140/103 97 Room Air 02/27/17 22:07 67 20 155/111 98 02/27/17 21:10 67 20 149/102 98 Room Air 02/27/17 19:56 64 20 134/91 98 02/27/17 18:34 36.8 86 17 136/91 97 Room Air Lab Results: Results Past 24 Hours Test 02/27/17 19:59 02/28/17 06:10 Range/Units White Blood Count 4.72 6.52 4.8-10.8 K/uL Red Blood Count 4.08 4.51 4.2-5.4 M/uL Hemoglobin 11.2 12.1 12.0-16.0 g/dL Hematocrit 34.0 37.8 37-47 % Mean Corpuscular Volume 83.3 83.8 80-100 fL Mean Corpuscular Hemoglobin 27.5 26.8 25-34 pg Mean Corpuscular Hemoglobin Concent 32.9 32.0 32-36 g/dl Platelet Count 210 240 130-400 K/uL Mean Platelet Volume 9.6 9.7 7.4-10.4 fL Neutrophils (%) (Auto) 69.9 % Lymphocytes (%) (Auto) 21.2 % Monocytes (%) (Auto) 6.6 % Eosinophils (%) (Auto) 1.9 % Basophils (%) (Auto) 0.4 % Neutrophils # (Auto) 3.30 1.4-6.5 K/uL Lymphocytes # (Auto) 1.00 1.2-3.4 K/uL Monocytes # (Auto) 0.31 0.11-0.59 K/uL Eosinophils # (Auto) 0.09 0-0.5 K/uL Basophils # (Auto) 0.02 0-0.2 K/uL RDW Standard Deviation 49.5 50.2 36.4-46.3 fL RDW Coefficient of Variation 16.3 16.4 11.5-14.5 % Immature Granulocyte % (Auto) 0.0 % Immature Granulocyte # (Auto) 0.00 0.00-0.02 K/uL Sodium Level 142 137 136-145 mmol/L Potassium Level 4.0 3.8 3.5-5.1 mmol/L Chloride Level 109 103 98-107 mmol/L Carbon Dioxide Level 23 24 21-32 mmol/L Anion Gap 10.0 10.0 3-11 mmol/L Blood Urea Nitrogen 12 8 7-18 mg/dl Creatinine 0.82 0.81 0.60-1.20 mg/dl Est Creatinine Clear Calc Drug Dose 67.3 68.1 ml/min Estimated GFR () 91.4 92.8 Estimated GFR (Non- 78.9 80.1 BUN/Creatinine Ratio 15.1 10.3 10-20 Random Glucose 103 134 70-99 mg/dl Calcium Level 8.4 8.3 8.5-10.1 mg/dl Total Bilirubin 0.5 0.2-1 mg/dl Aspartate Amino Transf (AST/SGOT) 10 15-37 U/L Alanine Aminotransferase (ALT/SGPT) 12 12-78 U/L Alkaline Phosphatase 87 45-117 U/L Total Protein 6.6 6.4-8.2 gm/dl Albumin 3.5 3.4-5.0 gm/dl Globulin 3.1 2.5-4.0 gm/dl Albumin/Globulin Ratio 1.1 0.9-2 Lipase 104 73-393 U/L Magnesium Level 1.9 1.8-2.4 mg/dl Thyroid Stimulating Hormone (TSH) 4.260 0.300-4.500 uIu/ml
[2017-02-28 15:14] VITALS: BP 149/93; PULSE 69; TEMP 36.9; O2SAT 98
[2017-02-28] MEDS ORDERED: DIGOXIN 0.125 MG TAB PO SCH (16:00)
[2017-03-01 00:01] VITALS: BP 96/63; PULSE 59; TEMP 36.7; O2SAT 95
[2017-03-01] MEDS: SODIUM CHLORIDE 0.9% 1000ML 1,000 ML IV SCH (00:30)
[2017-03-01] MEDS: METOCLOPRAMIDE HCL 10 MG TAB PO SCH (06:27)
[2017-03-01] MEDS: LEVOTHYROXINE 75 MCG TAB PO SCH (06:27)
[2017-03-01 06:42] LABS: BUN/CREATININE RATIO 11.1 (10-20); CREATININE 0.93 mg/dl (0.60-1.20); MAGNESIUM 2.2 mg/dl (1.8-2.4); POTASSIUM 3.4 mmol/L (3.5-5.1)
[2017-03-01 07:16] VITALS: BP 90/50; PULSE 49; TEMP 36.6; O2SAT 97
[2017-03-01] MEDS: FAMOTIDINE 20 MG TAB PO SCH (07:58)
[2017-03-01] MEDS: PANTOprazole SOD 40 MG TAB PO SCH (07:59)
[2017-03-01] MEDS: FLUTICASONE/SALMETEROL 250/50 (ADVAIR) 14 PUFF/1 INHALER INH SCH (07:59)
[2017-03-01] MEDS: PRENATAL VITAMIN TAB PO SCH (07:59)
[2017-03-01] MEDS: ALBUTEROL HFA 8 GM INHALER INH SCH (07:59)
[2017-03-01] MEDS: ESCITALOPRAM OXALATE 10 MG TAB PO SCH (07:59)
[2017-03-01] MEDS ORDERED: FOSAPREPITANT DIMEGLUMINE INJ 115 MG in SODIUM CHLORIDE 0.9% 100ML 111.2 ML IV SCH (08:00)
--- NOTE | 2017-03-01 09:50 | Progress Note ---
Internal Med Progress Note Date of Service: Mar 01, 2017. Provider Documentation: SUBJECTIVE: Seen and examined at bedside. States doing well this morning. Tolerated diet well. Nausea resolved. Offers no complaints. OBJECTIVE: Vital Signs-as noted below Physical Exam: General Appearance:Moderately built and nourished, no apparent distress Head: normocephalic, Atraumatic Eyes: normal inspection, EOMI, PERRL Neck: supple, Trachea midline Respiratory/Chest: Normal breath sounds, CTA Cardiovascular: S1, S2, No murmur Chest: Port on Right side of chest Abdomen/GI:Soft, Non tender, Bowel sounds present Extremities/Musculoskelatal:normal inspection, no edema Neurologic/Psych:AAOX3, grossly no focal neurological deficits Skin: normal color, warm Lab data as noted below. ASSESSMENT & PLAN: Patient is a 56 yr F, with a PMH of recurrent gastroparesis, dumping syndrome, GERD, COPD, recurrent PVCs, hypothyroidism presents with nausea/dry heaves Gastroparesis/Dumping Syndrome H/O recurrent gastroparesis Received Emend 115mg today continue Reglan TID, Pepcid BID, Dexilant KUB:Non obstructed abdominal bowel gas pattern Advance diet as tolerated Appreciate GI input S/P IV fluids Monitor electrolytes Hypokalemia: Will replace and monitor Hypothyroidism TSH:4.2 continue Synthroid COPD continue home inhalers Recurrent PVCs continue Digoxin DVT Px SCDs Code Status: Full code Disposition: Follow up with Dr. Aicha Rivas on 03/08/17 at 12:45pm Follow up with your medication assistant as advised Vital Signs: Date Time Temp Pulse Resp B/P (MAP) Pulse Ox O2 Delivery O2 Flow Rate FiO2 03/01/17 08:00 Room Air 03/01/17 07:16 36.6 49 18 90/50 (63) 97 Room Air 03/01/17 00:15 Room Air 03/01/17 00:01 36.7 59 16 96/63 (74) 95 Room Air 02/28/17 16:00 Room Air 02/28/17 15:14 36.9 69 20 149/93 (111) 98 Room Air 02/28/17 15:10 66 Lab Results: Results Past 24 Hours Test 03/01/17 05:49 Range/Units Sodium Level 141 136-145 mmol/L Potassium Level 3.4 3.5-5.1 mmol/L Chloride Level 107 98-107 mmol/L Carbon Dioxide Level 25 21-32 mmol/L Anion Gap 9.0 3-11 mmol/L Blood Urea Nitrogen 10 7-18 mg/dl Creatinine 0.93 0.60-1.20 mg/dl Est Creatinine Clear Calc Drug Dose 59.3 ml/min Estimated GFR () 78.5 Estimated GFR (Non- 67.7 BUN/Creatinine Ratio 11.1 10-20 Random Glucose 85 70-99 mg/dl Calcium Level 8.0 8.5-10.1 mg/dl Magnesium Level 2.2 1.8-2.4 mg/dl
[2017-03-01] MEDS ORDERED: POTASSIUM CHLORIDE 20 MEQ TABCR PO ONE (10:00)
--- NOTE | 2017-03-01 10:11 | Discharge Summary ---
Discharge Summary Date of Service Mar 01, 2017. Discharge Summary Admission Date: Feb 27, 2017 at 21:24 Discharge Date: Mar 01, 2017 Discharge Disposition: Home Principal Diagnosis: Gastroparesis Procedures: CXR: 1. No acute cardiopulmonary abnormality. 2. A right-sided central venous infusion port is again noted. The catheter appears truncated, and this represents a change from previous. Fracture of the catheter is suspected. No catheter fragment is seen. Clinical correlation will be essential. KUB: 1. Non obstructed abdominal bowel gas pattern. 2. Postoperative changes as above, similar to prior studies. Consultations: Gastroenterology Pending Studies/Follow-Up: Follow up with Dr. Aicha Rivas on 03/08/17 at 12:45pm Follow up with your slabber as advised Medication Reconciliation Continued Medications: Albuterol Sulf (Proventil 0.083% 2.5MG/3ML) 2.5 Mg/3 Ml Nebu 2.5 MG INH Q4H PRN for Wheezing, EA Albuterol Sulfate (Proair Respiclick) 108 Mcg/Act Aer 2 PUFFS INH QID Aluminum Hydroxide-Mag Trisil (Gaviscon) 1 Chw Chw 2 CAP PO TID PRN for Dyspepsia Clonazepam (Klonopin) 0.5 Mg Tab 0.5 MG PO TID PRN for Anxiety/Agitation Dexlansoprazole (Dexilant) 30 Mg Cap 30 MG PO DAILY Digoxin (Digoxin) 0.125 Mg Tab 0.125 MG PO DAILY Escitalopram (Lexapro) 10 Mg Tab 10 MG PO DAILY, TAB Famotidine (Pepcid) 20 Mg Tab 20 MG PO BID, TAB Fluticasone Prop/Salmeterol (Advair Diskus 250-50 Mcg/Dose) 14 Puff/1 Inhaler Aerp 1 PUFF INH BID Fosaprepitant Dimeglumine (Emend) 150 Mg Rosalia 5 ML IV MONTHLY Levothyroxine Sodium (Levothyroxine Sodium) 75 Mcg Tab 75 MCG PO DAILY Metoclopramide (Reglan) 10 Mg Tab 10 MG PO ACHS, TAB Ondansetron Hcl (Zofran) 4 Mg Tab 4 MG PO Q6H PRN for Nausea, TAB Multivit-Min W/Fe-Fa ( And Iron) 1 Tab Tab 1 TAB PO DAILY Prochlorperazine Maleate (Compazine) 10 Mg Tab 10 MG PO Q6H PRN for Nausea or Vomiting, TAB Admission Information HPI (per Admitting provider): This is a 56 year old female with a PMH of recurrent gastroparesis, dumping syndrome, GERD, COPD, recurrent PVCs, hypothyroidism presents with nausea/dry heaves for the past day; states that she gets Emend injections monthly; received one injection yesterday (February 26); but has been nauseous since then; she has had multiple admissions due to this problem and follows with Dr. Ridley for her gastroparesis. Her meds have been adjusted as an outpatient ; she now takes Pepcid BID, Dexilant, Reglan TID, compazine PRN. She was in her usual state of health; last admission here at [facility] was in November and she had been doing well since then. Was given Zofran, Phenergan and fluids in the ER, but her symptoms persisted. Physical Exam (per Admitting): General Appearance: + mild distress (secondary to nausea) Head: normocephalic, atraumatic Eyes: normal inspection ENT: hearing grossly normal Neck: supple Respiratory/Chest: lungs clear, normal breath sounds, no respiratory distress, no accessory muscle use, + pertinent finding (R chest wall - port) Cardiovascular: regular rate, rhythm, no edema, no gallop, no JVD, no murmur , normal peripheral pulses Abdomen/GI: normal bowel sounds, soft, + tenderness (epigastric tenderness) Extremities/Musculoskelatal: no calf tenderness, normal capillary refill, no pedal edema Neurologic/Psych: no motor/sensory deficits, alert, normal mood/affect Skin: normal color Hospital Course Patient is a 56 yr F, with a PMH of recurrent gastroparesis, dumping syndrome, GERD, COPD, recurrent PVCs, hypothyroidism presents with nausea/dry heaves Gastroparesis/Dumping Syndrome H/O recurrent gastroparesis Received Emend 115mg today continue Reglan TID, Pepcid BID, Dexilant KUB:Non obstructed abdominal bowel gas pattern Advance diet as tolerated Appreciate GI input S/P IV fluids Monitor electrolytes Hypokalemia: Will replace and monitor Hypothyroidism TSH:4.2 continue Synthroid COPD continue home inhalers Recurrent PVCs continue Digoxin DVT Px SCDs Code Status: Full code Disposition: Follow up with Dr. Aicha Rivas on 03/08/17 at 12:45pm Follow up with your slabber as advised Total time spent on discharge = 35 minutes This includes examination of the patient, discharge planning, medication reconciliation, and communication with other providers. Discharge Instructions Discharge Instructions Date of Service Mar 01, 2017. Admission Reason for Admission: Gastroparesis, Nausea Discharge Discharge Diagnosis / Problem: Gastroparesis Discharge Goals Goal(s): Decrease discomfort, Improve function Activity Recommendations Activity Limitations: resume your previous activity Exercise/Sports Limitations: as tolerated . Instructions / Follow-Up Instructions / Follow-Up Follow up with Dr. Aicha Rivas on 03/08/17 at 12:45pm Follow up with your slabber as advised Current Hospital Diet Patient's current hospital diet: Regular Diet Discharge Diet Recommended Diet: Regular Diet Pending Studies Studies pending at discharge: no Medical Emergencies . Who to Call and When: Medical Emergencies: If at any time you feel your situation is an emergency, please call 911 immediately. . Non-Emergent Contact Non-Emergency issues call your: Primary Care Provider, Fabrication Welder Call Non-Emergent contact if: you have a fever, your pain is not controlled, your pain is worsening, your pain is unusual for you, you have any medication questions If nausea, vomiting or abdominal pain reoccurs . . "Provider Documentation" section prepared by Leonidas Sumner. . VTE Core Measure Inpt VTE Proph given/why not?: SCD's
[2017-03-01 10:26] VITALS: BP 90/50; PULSE 49; TEMP 36.6; O2SAT 97
[2017-03-30] MEDS ORDERED: PROC1TAB5 PO (01:03)
[2017-03-30] MEDS ORDERED: ONDA4TAB46 PO (01:20)
[2017-03-30] MEDS ORDERED: LEVO75TA5 PO (03:29)
[2017-03-30] MEDS ORDERED: FAMO20TA9 PO (09:48)
[2017-06-15] MEDS ORDERED: PROM1SUP19 PR (12:09)
[2017-06-18] MEDS ORDERED: OXYC-57 PO (10:33)
[2017-08-06] MEDS ORDERED: ERGO500037 PO (10:00)
[2017-08-06] MEDS ORDERED: VITAMIN B SQ (10:00)
[2017-08-09] MEDS ORDERED: CLS1 PO (14:36)
[2017-08-09] MEDS ORDERED: PRT40 PO (14:36)
== END 2017-03-01 12:00 | disposition home or self-care (01) ==
LOC: C.EDB 18:28 → C.4E 21:24 → ENRESERV 21:48
PROVIDERS: ADMIT Family Medicine; ATTEND Internal Medicine
DX: K31.84 Gastroparesis (principal); E87.6 Hypokalemia; D50.9 Iron deficiency anemia, unspecified; J44.9 Chronic obstructive pulmonary disease, unspecified; F41.9 Anxiety disorder, unspecified; F32.9 Major depressive disorder, single episode, unspecified; K21.9 Gastro-esophageal reflux disease without esophagitis; E78.5 Hyperlipidemia, unspecified; E03.9 Hypothyroidism, unspecified; I34.0 Nonrheumatic mitral (valve) insufficiency; G62.9 Polyneuropathy, unspecified; I49.3 Ventricular premature depolarization; F17.210 Nicotine dependence, cigarettes, uncomplicated; Z83.3 Family history of diabetes mellitus; Z79.899 Other long term (current) drug therapy

== ENCOUNTER 2017-03-30 14:12 | Observation (INO) | payer OTHER ==
[~2017-03-30] VITALS: Ht 167.6 cm; Wt 61.0 kg
[~2017-03-30 14:12] MED LIST changes: +FAMO20TA9 PO; +LEVO75TA5 PO; +ONDA4TAB46 PO; +PROC1TAB5 PO
[2017-03-30] MEDS ORDERED: ALUMCHW2 PO (14:56)
[2017-03-30] MEDS ORDERED: ESCI10TA17 PO (14:59)
[2017-03-30] MEDS ORDERED: PROCHLORPERAZINE 5 MG/ML 2 ML VIAL IV STA (15:05)
[2017-03-30] MEDS ORDERED: DiphenhydrAMINE HCL 50 MG/ML VIAL IV STA (15:05)
[2017-03-30] MEDS ORDERED: MoRPHine SULFATE 4 MG/ML 1 ML CARP\\VIAL IV STA ×2 (15:05→16:40)
[2017-03-30] MEDS ORDERED: SODIUM CHLORIDE 0.9% 1000ML 1,000 ML IV STA ×2 (15:05)
[2017-03-30] MEDS ORDERED: FOSAPREPITANT DIMEGLUMINE INJ 150 MG in SODIUM CHLORIDE 0.9% 150ML 145 ML IV ONE (15:15)
[2017-03-30] MEDS ORDERED: ONDANSETRON 8 MG/54 ML D5W IV STA (16:12)
[2017-03-30 16:14] LABS: BASO % 0.2 %; BASO ABS # 0.01 K/uL (0-0.2); COMPLETE YES; EOS % 0.6 %; IG% 0.2 %; LYMPH % 25.4 %; LYMPH ABS # 1.61 K/uL (1.2-3.4); MEAN CELL VOLUME 81.9 fL (80-100); MEAN CORPUSCULAR HEMOGLOBIN 27.3 pg (25-34); MEAN CORPUSCULAR HGB CONC 33.3 g/dl (32-36); MEAN PLATELET VOLUME 9.4 fL (7.4-10.4); NEUT % 65.6 %; PLATELET COUNT 283 K/uL (130-400); RED BLOOD COUNT 4.76 M/uL (4.2-5.4); WHITE BLOOD COUNT 6.34 K/uL (4.8-10.8)
[2017-03-30 16:41] LABS: BUN/CREATININE RATIO 11.9 (10-20); CALCIUM 9.3 mg/dl (8.5-10.1); POTASSIUM 4.6 mmol/L (3.5-5.1)
[2017-03-30] MEDS ORDERED: [UNRECOGNIZED DRUG - CODE] IV (16:48)
[2017-03-30] MEDS ORDERED: METO-157 PO (16:48)
[2017-03-30] MEDS ORDERED: PROMETHAZINE HCL INJ 12.5 MG in SODIUM CHLORIDE 0.9% 50ML 50 ML IV STA (17:13)
[2017-03-30] MEDS ORDERED: LNX125 PO (17:45)
[2017-03-30] MEDS ORDERED: DEXL30CA5 PO (17:45)
[2017-03-30] MEDS ORDERED: PRENTAB89 PO (17:45)
[2017-03-30] MEDS ORDERED: RANITIDINE HCL 50 MG/100 ML D5W IV STA (18:32)
[2017-03-30 18:56] LABS: URINE APPEARANCE CLEAR (CLEAR); URINE BILIRUBIN NEG (NEG); URINE COLOR YELLOW; URINE NITRITE NEG (NEG); URINE PH 5.5 (4.5-7.5); URINE SPECIFIC GRAVITY 1.013 (1.000-1.030); UROBILINOGEN NEG (NEG)
[2017-03-30 19:01] LABS: MANUAL MICROSCOPIC REQUIRED? NO; REVIEW REQ? NO
[2017-03-30] MEDS ORDERED: CLON0.5T3 PO (19:18)
[2017-03-30 19:50] VITALS: BP 145/72; PULSE 82; TEMP 36.6; O2SAT 94; Ht 167.6 cm; Wt 61.0 kg
[2017-03-30] MEDS ORDERED: ACETAMINOPHEN 325 MG TAB PO PRN (20:15)
[2017-03-30] MEDS ORDERED: IV FLUIDS COMPLETED PRN (20:30)
--- NOTE | 2017-03-30 20:38 | History and Physical ---
History & Physical Date & Time of Service: Mar 30, 2017 at 20:38 Chief Complaint: Nausea And Abdominal Pain Primary Care Physician: Jaleel Coppola M.D. History of Present Illness Source: patient Patient is a 56 yr female with a PMH of recurrent gastroparesis, dumping syndrome, GERD, COPD, recurrent PVCs, hypothyroidism and other problems who was recently discharged after being treated conservatively for severe gastroparesis presents with h/o nausea/dry heaves and epigastric pain which radiates to back since this morning.She states she had the same symptoms during last admission. She reports a history of a hiatal hernia repair performed by Dr. Coyle and a gastric sleeve performed at [facility]. She received Emend in ED. She follows with Dr. Ridley for gastroparesis. She states she has been belching a lot and has acid reflex. States epigastric pain is 6/10, constant dull, no aggravating/relieving factors and states she gets similar pain on multiple occasions previously. Denies any fever, chills, SOB, chest pain, headache, dizziness, diarrhea, urinary symptoms, cough, wheezing. Past Medical/Surgical History Medical Problems: (1) Anemia, iron deficiency Status: Chronic (2) Anxiety Status: Chronic (3) Anxiety State Nos Status: Chronic (4) Asthma Status: Chronic (5) Chronic Obstructive Asthma, Nos Status: Chronic (6) COPD (chronic obstructive pulmonary disease) Status: Chronic (7) Depression Status: Chronic (8) Diverticulosis Status: Chronic (9) Esophagitis Nos Status: Chronic (10) Frequent PVCs Status: Chronic (11) Gastroparesis Status: Chronic (12) GERD (gastroesophageal reflux disease) Status: Chronic (13) Hyperlipidemia Nec/Nos Status: Chronic (14) Hypothyroidism Status: Chronic (15) Hypothyroidism Nos Status: Chronic (16) Iron Defic Anemia Nos Status: Chronic (17) Mitral regurgitation Permanent Comment: moderate per echo 09/21/15 Status: Chronic (18) MRSA bacteremia Status: Resolved (19) Neuropathy Status: Chronic (20) Pemphigus vulgaris Status: Chronic (21) Pernicious anemia Status: Chronic (22) Pernicious Anemia Status: Chronic (23) Premature atrial contractions Status: Chronic (24) Tobacco abuse Status: Chronic Surgical Problems: (1) H/O colonoscopy Permanent Comment: 08/14/2013- Moderate diverticulosis in the sigmoid colon, in the descending colon and in the ascending colon. Internal hemorrhoids. Normal mucosa in the entire examined colon. Biopsied. Status: Chronic (2) H/O esophagogastroduodenoscopy Permanent Comment: 04/22/2015- - Stretta treatment to distal esophagus / GE junction and cardia.Three surgical logan were found in the esophagus at the GE junction and removed. Surgical suture was also found at the GE junction without evidence of dehiscence. Grade B GERD / erosive esophagitis. Sleeve gastrectomy with a large-sized pouch, intact staple line, post-operative mucosal scar, and evidence f pyloroplasty. Small gastric polyp, likely hyperplastic vs fundic gland polyp. Small hiatus hernia. Status: Chronic (3) H/O oophorectomy Permanent Comment: left ovary Status: Chronic (4) H/O: hysterectomy Status: Resolved (5) History of bladder surgery Status: Chronic (6) S/P hysterectomy Status: Chronic (7) S/P laparoscopic sleeve gastrectomy Status: Chronic (8) S/P partial gastrectomy Status: Chronic (9) S/P repair of paraesophageal hernia Status: Chronic (10) S/P repair of paraesophageal hernia Permanent Comment: resulted in volvulus, required abdominal exploration Status: Chronic (11) S/P tonsillectomy and adenoidectomy Status: Resolved (12) S/P tonsillectomy and adenoidectomy Status: Chronic Family History Diabetes mellitus MOTHER SISTER FH: aneurysm FH: cancer FH: heart disease FATHER MOTHER Hypertension BROTHER Kidney disease Reviewed Social History Smoking Status: Current Every Day Smoker Alcohol Use: none Drug Use: none Marital Status: single Housing status: lives with family Occupational Status: disabled Immunizations History of Influenza Vaccine: Yes History of Tetanus Vaccine?: Unknown History of Pneumococcal: Unknown History of Hepatitis B Vaccine: Unknown Multi-Drug Resistant Organisms History of MDRO: Yes Type of MDRO: MRSA Allergies Coded Allergies: Amoxicillin (Verified Adverse Reaction, Intermediate, yeast infection, 02/27) NSAIDs (Verified Adverse Reaction, Mild, indegestion, 02/27/17) Rofecoxib (Verified Adverse Reaction, Mild, indigestion, 02/27/17) Scopolamine (Verified Adverse Reaction, Mild, rash from patch, 02/27/17) Home Medications Scheduled Dexlansoprazole (Dexilant), 30 MG PO DAILY Digoxin (Digoxin), 0.125 MG PO DAILY Escitalopram (Lexapro), 10 MG PO DAILY Famotidine (Pepcid), 20 MG PO BID Fosaprepitant Dimeglumine (Emend), 5 ML IV MONTHLY Levothyroxine Sodium (Levothyroxine Sodium), 75 MCG PO DAILY Metoclopramide (Reglan), 10 MG PO ACHS Multivit-Min W/Fe-Fa ( And Iron), 1 TAB PO DAILY Scheduled PRN Aluminum Hydroxide-Mag Trisil (Gaviscon), 2 TABS PO TID PRN for Dyspepsia Clonazepam (Klonopin), 0.5 MG PO TID PRN for Anxiety/Agitation Ondansetron Hcl (Zofran), 4 MG PO Q6H PRN for Nausea Prochlorperazine Maleate (Compazine), 10 MG PO Q6H PRN for Nausea or Vomiting Review of Systems See HPI for pertinent positives & negatives. A total of 10 systems reviewed and were otherwise negative. Physical Exam Vital Signs Date Time Temp Pulse Resp B/P (MAP) Pulse Ox O2 Delivery O2 Flow Rate FiO2 03/30/17 19:50 36.6 82 16 145/72 94 Room Air 03/30/17 19:37 82 16 145/72 94 Room Air 03/30/17 17:50 70 16 132/94 94 Room Air 03/30/17 16:48 60 20 148/95 94 03/30/17 16:41 61 03/30/17 15:56 66 16 138/94 96 Room Air 03/30/17 14:17 36.6 65 18 128/90 97 Room Air General Appearance: WD/WN, + mild distress (secondary to nausea) Head: normocephalic, atraumatic Eyes: normal inspection, PERRL, EOMI, sclerae normal ENT: normal ENT inspection, hearing grossly normal Neck: supple, trachea midline Respiratory/Chest: chest non-tender, lungs clear, normal breath sounds, no respiratory distress, no accessory muscle use Cardiovascular: regular rate, rhythm, no edema, no murmur Abdomen/GI: normal bowel sounds, soft, + tenderness (Epigastric) Back: normal inspection, + pertinent finding (Tender mid thoracic ) Extremities/Musculoskelatal: normal inspection, no pedal edema Neurologic/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: 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, no motor/sensory deficits, alert, normal mood/affect, oriented x 3 Skin: normal color, warm/dry Diagnostics Laboratory Results Results Past 24 Hours Test 03/30/17 15:42 03/30/17 18:45 03/30/17 20:13 Range/Units White Blood Count 6.34 4.8-10.8 K/uL Red Blood Count 4.76 4.2-5.4 M/uL Hemoglobin 13.0 12.0-16.0 g/dL Hematocrit 39.0 37-47 % Mean Corpuscular Volume 81.9 80-100 fL Mean Corpuscular Hemoglobin 27.3 25-34 pg Mean Corpuscular Hemoglobin Concent 33.3 32-36 g/dl Platelet Count 283 130-400 K/uL Mean Platelet Volume 9.4 7.4-10.4 fL Neutrophils (%) (Auto) 65.6 % Lymphocytes (%) (Auto) 25.4 % Monocytes (%) (Auto) 8.0 % Eosinophils (%) (Auto) 0.6 % Basophils (%) (Auto) 0.2 % Neutrophils # (Auto) 4.16 1.4-6.5 K/uL Lymphocytes # (Auto) 1.61 1.2-3.4 K/uL Monocytes # (Auto) 0.51 0.11-0.59 K/uL Eosinophils # (Auto) 0.04 0-0.5 K/uL Basophils # (Auto) 0.01 0-0.2 K/uL RDW Standard Deviation 48.7 36.4-46.3 fL RDW Coefficient of Variation 16.2 11.5-14.5 % Immature Granulocyte % (Auto) 0.2 % Immature Granulocyte # (Auto) 0.01 0.00-0.02 K/uL Sodium Level 140 136-145 mmol/L Potassium Level 4.6 3.5-5.1 mmol/L Chloride Level 108 98-107 mmol/L Carbon Dioxide Level 23 21-32 mmol/L Anion Gap 9.0 3-11 mmol/L Blood Urea Nitrogen 12 7-18 mg/dl Creatinine 1.00 0.60-1.20 mg/dl Est Creatinine Clear Calc Drug Dose 56.3 ml/min Estimated GFR () 71.9 Estimated GFR (Non- 62.1 BUN/Creatinine Ratio 11.9 10-20 Random Glucose 101 70-99 mg/dl Calcium Level 9.3 8.5-10.1 mg/dl Magnesium Level 2.0 1.8-2.4 mg/dl Total Bilirubin 0.5 0.2-1 mg/dl Direct Bilirubin 0.1 0-0.2 mg/dl Aspartate Amino Transf (AST/SGOT) 16 15-37 U/L Alanine Aminotransferase (ALT/SGPT) 13 12-78 U/L Alkaline Phosphatase 110 45-117 U/L Total Protein 7.3 6.4-8.2 gm/dl Albumin 3.7 3.4-5.0 gm/dl Lipase 138 73-393 U/L Digoxin Level 0.7 0.8-2.0 ng/ml Urine Color YELLOW Urine Appearance CLEAR CLEAR Urine pH 5.5 4.5-7.5 Urine Specific [place] 1.013 1.000-1.030 Urine Protein TRACE NEG Urine Glucose (UA) NEG NEG Urine Ketones 1+ NEG Urine Occult Blood NEG NEG Urine Nitrite NEG NEG Urine Bilirubin NEG NEG Urine Urobilinogen NEG NEG Urine Leukocyte Esterase TRACE NEG Urine WBC (Auto) 1-5 0-5 /hpf Urine RBC (Auto) 0-4 0-4 /hpf Urine Hyaline Casts (Auto) 1-5 0-5 /lpf Urine Epithelial Cells (Auto) 10-20 0-5 /lpf Urine Bacteria (Auto) NEG NEG Diagnostic Radiology KUB:pending EKG EKG:pending Impression Assessment and Plan Gastroparesis/Dumping Syndrome Presented with dry heaves and epigastric pain H/O hiatal hernia repair performed by Dr. Coyle and a gastric sleeve performed at [facility] Received Emend in ED continue IV Reglan, famotidine Hold Dexilant for now. Switch to PO famotidine, Reglan when nausea under control Will obtain KUB to r/o Obstruction Also obtain EKG and troponin NPO for now, Gentle IV fluids Advance diet as tolerated in AM Consider GI consult if worsens clinically Monitor electrolytes Hypothyroidism Last TSH:4.2 continue Synthroid Switch to PO when nausea under control COPD continue home inhalers No acute issues Recurrent PVCs continue Digoxin DVT Px SCDs Code Status: Full code Disposition: Plan to discharge home when stable Advanced Directives Existing Living Will: No Existing Power of Tip Cutter: No VTE Prophylaxis VTE Risk Assessment Done? Y/N: Yes Risk Level: Low
--- NOTE | 2017-03-30 20:43 | DIAGNOSTIC IMAGING REPORT ---
KUB CLINICAL HISTORY: Nausea. FINDINGS: 2 AP supine abdominal radiographs are compared to study dated 02/27/2017 and correlated with abdominal CT dated 11/02/2016. There is a nonobstructed abdominal bowel gas pattern. Suture material is again seen in the left upper quadrant. Cholecystectomy clips are noted. There is no evidence of intraperitoneal free air on these supine views. Mild colonic fecal retention is observed. There are numerous phleboliths in the pelvis. The skeletal structures are osteopenic. The bony structures appear intact. IMPRESSION: 1. Nonobstructed abdominal bowel gas pattern. 2. Postoperative changes as above which are similar to prior studies. Electronically signed by: Bayron Tillman M.D. 03/30/2017 8:42 PM Dictated Date/Time: 03/30/2017 8:40 PM
[2017-03-30] MEDS ORDERED: MoRPHine SULFATE 2 MG/ML CARP IV PRN (20:45)
[2017-03-30] MEDS ORDERED: CLONAZEPAM 0.5 MG TAB PO PRN (20:45)
--- NOTE | 2017-03-30 20:55 | EMERGENCY ROOM VISIT NOTE ---
ED Visit Note First contact with patient: 14:47 I have personally evaluated this patient examined her and reviewed the pertinent labs and data. I have discussed the case with Farzana Boyle, the physician pastoral assistant and agree with the plan. Please refer to the PA note. This patient has long-standing gastroparesis and she comes in with acute exacerbation of this. On my exam, her abdomen is benign. A port is accessed in her right chest. She has received IV hydration and several medications for this. She does not feel she can go home. She will be admitted for IV hydration and further treatment and evaluation of her gastroparesis.
[2017-03-30] MEDS ORDERED: FAMOTIDINE 20 MG TAB PO SCH (21:00)
[2017-03-30] MEDS ORDERED: METOCLOPRAMIDE HCL 10 MG TAB PO SCH (21:00)
[2017-03-30] MEDS ORDERED: ALBUTEROL 0.083% NEBU SOLN 3 ML VIAL INH PRN (21:15)
[2017-03-30 21:33] VITALS: BP 150/107; PULSE 62; TEMP 37.1; O2SAT 97
[2017-03-30] MEDS: METOCLOPRAMIDE HCL INJ 5 MG/ML 2 ML VIAL IV. SCH (21:42)
[2017-03-30] MEDS: D5W AND 1/2NSS 1,000 ML IV SCH (21:42)
[2017-03-30] MEDS: FAMOTIDINE IV INJ 20 MG in DEXTROSE 5% 100ML 100 ML IV SCH (21:42)
[2017-03-30 23:00] VITALS: BP 136/92; PULSE 69; TEMP 37.2; O2SAT 97
[2017-03-30] MEDS: ONDANSETRON INJ 2 MG/ML 2 ML VIAL IV PRN (23:26)
--- NOTE | 2017-03-30 23:31 | EMERGENCY ROOM VISIT NOTE ---
History First contact with patient: 14:47 Chief Complaint: ABDOMINAL PAIN Stated Complaint: NAUSEA AND ABDOMINAL PAIN Nursing Triage Summary: per patient hx of gastropaeresis, abd pain now with dry heaves and nausea History of Present Illness The patient is a 56 year old female who presents to the emergency department with complaints of epigastric/back pain, nausea and dry heaving. The patient states that her symptoms started about 3 hours ago. She has a history of gastroparesis and states that this feels similar. She reports using Zofran at home in addition to taking her normal medications. Her last oral intake was soup and toast yesterday. She rates her pain is 6/10. She notes pain in the epigastric and primarily across her mid back. She feels shaky and weak. She reports that previous surgeries make it difficult for her to vomit. She reports a history of a hiatal hernia repair performed by Dr. Coyle and a gastric sleeve performed at [place]. The surgeries were done 4-5 years ago. She is scheduled for an Emend infusion on 04/02. She denies any chest pain, palpitations, shortness of breath or urinary symptoms. She had a normal bowel movement this morning. She denies melena, hematochezia or hematemesis. Her extension supervisor is Dr. Ridley. Review of Systems Review of systems as per HPI. All other systems reviewed were negative. 10 systems reviewed. 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 (14) Gastroparesis (15) GERD (gastroesophageal reflux disease) (16) Hyperlipidemia Nec/Nos (17) Hypothyroidism (18) Hypothyroidism Nos (19) Iron Defic Anemia Nos (20) Mitral regurgitation (21) MRSA bacteremia (22) Nausea (23) Neuropathy (24) Pemphigus vulgaris (25) Pernicious anemia (26) Pernicious Anemia (27) Premature atrial contractions (28) Tobacco abuse Surgical Problems: (1) H/O colonoscopy (2) H/O esophagogastroduodenoscopy (3) H/O oophorectomy (4) H/O: hysterectomy (5) History of bladder surgery (6) S/P hysterectomy (7) S/P laparoscopic sleeve gastrectomy (8) S/P partial gastrectomy (9) S/P repair of paraesophageal hernia (10) S/P repair of paraesophageal hernia (11) S/P tonsillectomy and adenoidectomy (12) S/P tonsillectomy and adenoidectomy Electronic medical records are reviewed and summarized as above/below. See Problem List. Family History Diabetes mellitus MOTHER SISTER FH: aneurysm FH: cancer FH: heart disease FATHER MOTHER Hypertension BROTHER Kidney disease Social History Smoking Status: Never Smoker Alcohol Use: none Drug Use: none Marital Status: single Housing Status: lives alone Occupation Status: disabled Current/Historical Medications Scheduled Dexlansoprazole (Dexilant), 30 MG PO DAILY Digoxin (Digoxin), 0.125 MG PO DAILY Escitalopram (Lexapro), 10 MG PO DAILY Famotidine (Pepcid), 20 MG PO BID Fosaprepitant Dimeglumine (Emend), 5 ML IV MONTHLY Levothyroxine Sodium (Levothyroxine Sodium), 75 MCG PO DAILY Metoclopramide (Reglan), 10 MG PO ACHS Multivit-Min W/Fe-Fa ( And Iron), 1 TAB PO DAILY Scheduled PRN Aluminum Hydroxide-Mag Trisil (Gaviscon), 2 TABS PO TID PRN for Dyspepsia Clonazepam (Klonopin), 0.5 MG PO TID PRN for Anxiety/Agitation Ondansetron Hcl (Zofran), 4 MG PO Q6H PRN for Nausea Prochlorperazine Maleate (Compazine), 10 MG PO Q6H PRN for Nausea or Vomiting Allergies Coded Allergies: Amoxicillin (Verified Adverse Reaction, Intermediate, yeast infection, 02/27) NSAIDs (Verified Adverse Reaction, Mild, indegestion, 02/27/17) Rofecoxib (Verified Adverse Reaction, Mild, indigestion, 02/27/17) Scopolamine (Verified Adverse Reaction, Mild, rash from patch, 02/27/17) Physical Exam Vital Signs Date Time Temp Pulse Resp B/P (MAP) Pulse Ox O2 Delivery O2 Flow Rate FiO2 03/30/17 19:50 36.6 82 16 145/72 94 Room Air 7/7/17 19:37 82 16 145/72 94 Room Air 03/30/17 17:50 70 16 132/94 94 Room Air 03/30/17 16:48 60 20 148/95 94 03/30/17 16:41 61 03/30/17 15:56 66 16 138/94 96 Room Air 03/30/17 14:17 36.6 65 18 128/90 97 Room Air Physical Exam CONSTITUTIONAL: Patient is a thin, chronically ill-appearing 48-year-old white female who is awake and alert and in moderate distress due to her nausea and retching. EYES: Pupils equal, round, reactive to light and accommodation. EOMs intact without nystagmus. Sclera are anicteric. ENT: Tympanic membranes intact, with normal landmarks. External canals are clear. Oral and nasopharynx are clear. Mucous membranes are moist, no lesions , tongue and gums appear normal. NECK: Supple without lymphadenopathy. No thyromegaly. No meningeal signs. Full active range of motion without discomfort. CARDIOVASCULAR: Regular rate and rhythm, with normal S1 and S2, no murmur or gallop or rub is heard. No carotid bruits auscultated. No JVD. Peripheral pulses easily palpable. RESPIRATORY: Breath sounds equal and clear to auscultation without wheezes, rales, or rhonchi heard. Full and equal chest expansion without accessory muscle use or retractions. ABDOMEN: Bowel sounds are present. Multiple well-healed surgical scars are noted. Abdomen is soft, scaphoid, diffusely tender without guarding, rebound or peritoneal signs. INTEGUMENTARY: No lesions or rash, normal skin turgor. LYMPH: No lymphadenopathy. Medical Decision & Procedures Laboratory Results 03/30/17 15:42 Red Blood Count 4.76, Mean Corpuscular Volume 81.9, Mean Corpuscular Hemoglobin 27.3, Mean Corpuscular Hemoglobin Concent 33.3, Mean Platelet Volume 9.4, Neutrophils (%) (Auto) 65.6, Lymphocytes (%) (Auto) 25.4, Monocytes (%) (Auto) 8.0, Eosinophils (%) (Auto) 0.6, Basophils (%) (Auto) 0.2, Neutrophils # (Auto) 4.16, Lymphocytes # (Auto) 1.61, Monocytes # (Auto) 0.51, Eosinophils # (Auto) 0.04, Basophils # (Auto) 0.01 03/30/17 15:42 Test 03/30/17 15:42 03/30/17 18:45 White Blood Count 6.34 K/uL (4.8-10.8) Red Blood Count 4.76 M/uL (4.2-5.4) Hemoglobin 13.0 g/dL (12.0-16.0) Hematocrit 39.0 % (37-47) Mean Corpuscular Volume 81.9 fL (80-100) Mean Corpuscular Hemoglobin 27.3 pg (25-34) Mean Corpuscular Hemoglobin Concent 33.3 g/dl (32-36) Platelet Count 283 K/uL (130-400) Mean Platelet Volume 9.4 fL (7.4-10.4) Neutrophils (%) (Auto) 65.6 % Lymphocytes (%) (Auto) 25.4 % Monocytes (%) (Auto) 8.0 % Eosinophils (%) (Auto) 0.6 % Basophils (%) (Auto) 0.2 % Neutrophils # (Auto) 4.16 K/uL (1.4-6.5) Lymphocytes # (Auto) 1.61 K/uL (1.2-3.4) Monocytes # (Auto) 0.51 K/uL (0.11-0.59) Eosinophils # (Auto) 0.04 K/uL (0-0.5) Basophils # (Auto) 0.01 K/uL (0-0.2) RDW Standard Deviation 48.7 fL (36.4-46.3) RDW Coefficient of Variation 16.2 % (11.5-14.5) Immature Granulocyte % (Auto) 0.2 % Immature Granulocyte # (Auto) 0.01 K/uL (0.00-0.02) Anion Gap 9.0 mmol/L (3-11) Est Creatinine Clear Calc Drug Dose 56.3 ml/min Estimated GFR () 71.9 Estimated GFR (Non- 62.1 BUN/Creatinine Ratio 11.9 (10-20) Calcium Level 9.3 mg/dl (8.5-10.1) Magnesium Level 2.0 mg/dl (1.8-2.4) Total Bilirubin 0.5 mg/dl (0.2-1) Direct Bilirubin 0.1 mg/dl (0-0.2) Aspartate Amino Transf (AST/SGOT) 16 U/L (15-37) Alanine Aminotransferase (ALT/SGPT) 13 U/L (12-78) Alkaline Phosphatase 110 U/L (45-117) Troponin I < 0.015 ng/ml (0-0.045) Total Protein 7.3 gm/dl (6.4-8.2) Albumin 3.7 gm/dl (3.4-5.0) Lipase 138 U/L (73-393) Digoxin Level 0.7 ng/ml (0.8-2.0) Urine Color YELLOW Urine Appearance CLEAR (CLEAR) Urine pH 5.5 (4.5-7.5) Urine Specific [place] 1.013 (1.000-1.030) Urine Protein TRACE (NEG) Urine Glucose (UA) NEG (NEG) Urine Ketones 1+ (NEG) Urine Occult Blood NEG (NEG) Urine Nitrite NEG (NEG) Urine Bilirubin NEG (NEG) Urine Urobilinogen NEG (NEG) Urine Leukocyte Esterase TRACE (NEG) Urine WBC (Auto) 1-5 /hpf (0-5) Urine RBC (Auto) 0-4 /hpf (0-4) Urine Hyaline Casts (Auto) 1-5 /lpf (0-5) Urine Epithelial Cells (Auto) 10-20 /lpf (0-5) Urine Bacteria (Auto) NEG (NEG) Medications Administered Medications (Trade) Dose Ordered Sig/Marisol Route Start Time Stop Time Status Last Admin Dose Admin Sodium Chloride 1,000 ml @ 999 mls/hr Q1H1M STAT IV 03/30/17 15:05 03/30/17 16:05 [place] 03/30/17 15:05 999 MLS/HR Sodium Chloride 1,000 ml @ 250 mls/hr Q4H STAT IV 03/30/17 15:05 03/30/17 19:04 DC 03/30/17 16:30 250 MLS/HR Prochlorperazine Edisylate (Compazine Inj) 10 mg NOW STAT IV 03/30/17 15:05 03/30/17 15:10 DC 03/30/17 15:05 10 MG Diphenhydramine HCl (Benadryl Inj) 25 mg NOW STAT IV 03/30/17 15:05 03/30/17 15:10 DC 03/30/17 15:05 25 MG Morphine Sulfate (MoRPHine SULFATE INJ) 4 mg NOW STAT IV 03/30/17 15:05 03/30/17 15:10 DC 03/30/17 15:05 4 MG Fosaprepitant 150 mg/Sodium Chloride 150 ml @ 300 mls/hr ONE ONCE IV 03/30/17 15:15 03/30/17 15:44 DC 03/30/17 15:15 300 MLS/HR Ondansetron HCl (Zofran 8mg Iv) 8 mg NOW STAT IV 03/30/17 16:12 03/30/17 16:13 DC 03/30/17 16:29 8 MG Morphine Sulfate (MoRPHine SULFATE INJ) 4 mg NOW STAT IV 03/30/17 16:40 03/30/17 16:41 DC 03/30/17 16:54 4 MG Promethazine HCl 12.5 mg/Sodium Chloride 50.5 ml @ 204 mls/hr NOW STAT IV 03/30/17 17:13 03/30/17 17:27 DC 03/30/17 17:13 204 MLS/HR Ranitidine HCl (zANTac IV) 50 mg NOW STAT IV 03/30/17 18:32 03/30/17 18:33 DC 03/30/17 18:32 50 MG ED Course The patient was seen and evaluated as above. Her old records were reviewed. She has frequent ED visits and hospitalizations for the same complaint. The patient's indwelling port was accessed and IV hydration was initiated. Laboratory studies were collected. Patient received multiple doses of IV medications, including Compazine 10 mg IV , Benadryl 25 mg IV, Emend 150 mg IV, morphine 4 mg IV 2, Zofran 8 mg IV, Phenergan 12.5 mg IV and ranitidine 50 mg IV with refractory nausea and dry heaves. Patient's laboratory studies were largely unremarkable. White count is not elevated. She is not anemic. Electrolytes, renal functions, liver functions and lipase are all within normal limits. Her digoxin level is just slightly subtherapeutic. Urinalysis noted 1+ ketones, trace leuk esterase and no other indicators for infection. The patient remained hemodynamically stable while in the emergency department. Her history and presentation were reviewed with attending physician who also independently evaluated her. She has required multiple doses of IV medications , and still is nauseous, retching and dry heaving. She is unable to go home in this present condition. [facility] Dr[facility] Sum[facility], for further care and evaluation. Differential diagnoses entertained include bowel obstruction, perforation, abscess, mass or malignancy, exacerbation of gastroparesis, infectious versus inflammatory colitis, food borne illness, dehydration, medication side effect, electrolyte or metabolic abnormality, among others. Medication reconciliation: I attest that I have personally reviewed the patient' s current medication list. Blood pressure screening : Patient was found to have normal blood pressure on screening and does not require follow-up. Medical Decision See Emergency Department course Impression Primary Impression: Nausea and vomiting Additional Impression: Abdominal pain Departure Information Referrals Jaleel Coppola M.D. (PCP) Patient Instructions My [facility] [address] Problem Qualifiers Primary Impression: Nausea and vomiting Vomiting type: unspecified Vomiting Intractability: intractable Qualified Codes: R11.2 - Nausea with vomiting, unspecified Additional Impression: Abdominal pain Abdominal location: generalized Qualified Codes: R10.84 - Generalized abdominal pain
[2017-03-31] MEDS: PROCHLORPERAZINE MALEATE 10 MG TAB PO PRN ×3 (02:55→13:26)
[2017-03-31] MEDS: ONDANSETRON INJ 2 MG/ML 2 ML VIAL IV PRN ×2 (05:48→11:50)
[2017-03-31] MEDS ORDERED: LEVOTHYROXINE 75 MCG TAB PO SCH (06:30)
[2017-03-31 07:09] LABS: COMPLETE YES; HEMATOCRIT 39.8 % (37-47); IG% 0.2 %; LYMPH % 7.9 %; LYMPH ABS # 0.75 K/uL (1.2-3.4); MEAN CELL VOLUME 82.6 fL (80-100); MEAN CORPUSCULAR HEMOGLOBIN 27.4 pg (25-34); MEAN CORPUSCULAR HGB CONC 33.2 g/dl (32-36); MEAN PLATELET VOLUME 9.3 fL (7.4-10.4); MONO % 3.7 %; NEUT % 88.2 %; PLATELET COUNT 335 K/uL (130-400); RED BLOOD COUNT 4.82 M/uL (4.2-5.4)
[2017-03-31 07:26] VITALS: BP 166/109; PULSE 72; TEMP 36.8; O2SAT 97
[2017-03-31 07:54] LABS: BUN/CREATININE RATIO 7.5 (10-20); CALCIUM 8.8 mg/dl (8.5-10.1); CREATININE 0.8 mg/dl (0.60-1.20); POTASSIUM 3.9 mmol/L (3.5-5.1)
[2017-03-31 08:00] VITALS: O2SAT 97
[2017-03-31] MEDS ORDERED: PROMETHAZINE HCL INJ 12.5 MG in SODIUM CHLORIDE 0.9% 50ML 50 ML IV PRN (08:15)
[2017-03-31] MEDS: METOCLOPRAMIDE HCL INJ 5 MG/ML 2 ML VIAL IV. SCH ×4 (08:20→21:32)
[2017-03-31] MEDS: FLUTICASONE/SALMETEROL 250/50 (ADVAIR) 14 PUFF/1 INHALER INH SCH ×2 (08:55→21:00)
[2017-03-31] MEDS: FAMOTIDINE IV INJ 20 MG in DEXTROSE 5% 100ML 100 ML IV SCH ×2 (08:56→21:31)
[2017-03-31] MEDS: D5W AND 1/2NSS 1,000 ML IV SCH ×2 (08:56→21:33)
[2017-03-31] MEDS: ESCITALOPRAM OXALATE 10 MG TAB PO SCH (09:00)
[2017-03-31] MEDS ORDERED: PANTOprazole SOD 40 MG TAB PO SCH (09:00)
[2017-03-31] MEDS: LEVOTHYROXINE SODIUM INJ 37.5 MCG in SYRINGE 0 ML IV SCH (09:02)
--- NOTE | 2017-03-31 09:42 | Progress Note ---
Internal Med Progress Note Date of Service: Mar 31, 2017. Provider Documentation: SUBJECTIVE: Patient continues to have significant nausea in spite of receiving IV Zofran/ Reglan scheduled. No vomiting since admission Epigastric pain is better. No fever, chills, diarrhea. OBJECTIVE: Vital Signs-as noted below Exam: General-AAOX3, in moderate distress due to dry heaving Eyes-No icterus Neck-Supple Lungs-AEBE, no wheezing, rhonchi Heart-S1, S2 normal, no murmurs Abdomen-Soft, mild epigastric tenderness, BS present Extremities-No edema Lab data as noted below. ASSESSMENT & PLAN: GASTROPARESIS WITH HX OF HIATAL HERNIA REPAIR Patient is a known case of gastroparesis with multiple admissions in past for the same. Hx of . H/O hiatal hernia repair performed by Dr. Coyle and a gastric sleeve performed at [facility] -Continues to have nausea in spite of Reglan/Zofran -Received Emend in ED -NPO, IV Fluids -Continue with Reglan 10 mg IV QID, Zofran q 6 hours PRN. Added IV promethazine q 6 hours prn (Monitor QTC while on these medications: EKG yesterday- normal QTC ) -Continue with IV Famotidine -Work up- KUB x ray- no obstruction HYPOTHYROIDISM Last TSH:4.2 -Continue Synthroid -Switch to PO when nausea under control COPD -No signs of exacerbation RECURRENT PVCS Asymptomatic ANXIETY/DEPRESSION -Continue with Clonazepam PRN/Lexapro as at home DVT Px SCDs CODE STATUS: Full code DISPOSITION Plan to discharge home when stable Vital Signs: Date Time Temp Pulse Resp B/P (MAP) Pulse Ox O2 Delivery O2 Flow Rate FiO2 03/31/17 07:26 36.8 72 20 166/109 (128) 97 03/31/17 00:00 Room Air 03/30/17 23:00 37.2 69 18 136/92 (107) 97 Room Air 03/30/17 21:33 37.1 62 16 150/107 (121) 97 Room Air 03/30/17 19:50 36.6 82 16 145/72 94 Room Air 03/30/17 19:37 82 16 145/72 94 Room Air 03/30/17 17:50 70 16 132/94 94 Room Air 03/30/17 16:48 60 20 148/95 94 03/30/17 16:41 61 03/30/17 15:56 66 16 138/94 96 Room Air 03/30/17 14:17 36.6 65 18 128/90 97 Room Air Lab Results: Results Past 24 Hours Test 03/30/17 15:42 03/30/17 18:45 03/31/17 06:57 Range/Units White Blood Count 6.34 9.50 4.8-10.8 K/uL Red Blood Count 4.76 4.82 4.2-5.4 M/uL Hemoglobin 13.0 13.2 12.0-16.0 g/dL Hematocrit 39.0 39.8 37-47 % Mean Corpuscular Volume 81.9 82.6 80-100 fL Mean Corpuscular Hemoglobin 27.3 27.4 25-34 pg Mean Corpuscular Hemoglobin Concent 33.3 33.2 32-36 g/dl Platelet Count 283 335 130-400 K/uL Mean Platelet Volume 9.4 9.3 7.4-10.4 fL Neutrophils (%) (Auto) 65.6 88.2 % Lymphocytes (%) (Auto) 25.4 7.9 % Monocytes (%) (Auto) 8.0 3.7 % Eosinophils (%) (Auto) 0.6 0.0 % Basophils (%) (Auto) 0.2 0.0 % Neutrophils # (Auto) 4.16 8.38 1.4-6.5 K/uL Lymphocytes # (Auto) 1.61 0.75 1.2-3.4 K/uL Monocytes # (Auto) 0.51 0.35 0.11-0.59 K/uL Eosinophils # (Auto) 0.04 0.00 0-0.5 K/uL Basophils # (Auto) 0.01 0.00 0-0.2 K/uL RDW Standard Deviation 48.7 47.7 36.4-46.3 fL RDW Coefficient of Variation 16.2 15.9 11.5-14.5 % Immature Granulocyte % (Auto) 0.2 0.2 % Immature Granulocyte # (Auto) 0.01 0.02 0.00-0.02 K/uL Sodium Level 140 133 136-145 mmol/L Potassium Level 4.6 3.9 3.5-5.1 mmol/L Chloride Level 108 99 98-107 mmol/L Carbon Dioxide Level 23 24 21-32 mmol/L Anion Gap 9.0 10.0 3-11 mmol/L Blood Urea Nitrogen 12 6 7-18 mg/dl Creatinine 1.00 0.80 0.60-1.20 mg/dl Est Creatinine Clear Calc Drug Dose 56.3 71.7 ml/min Estimated GFR () 71.9 94.2 Estimated GFR (Non- 62.1 81.3 BUN/Creatinine Ratio 11.9 7.5 10-20 Random Glucose 101 168 70-99 mg/dl Calcium Level 9.3 8.8 8.5-10.1 mg/dl Magnesium Level 2.0 1.8-2.4 mg/dl Total Bilirubin 0.5 0.2-1 mg/dl Direct Bilirubin 0.1 0-0.2 mg/dl Aspartate Amino Transf (AST/SGOT) 16 15-37 U/L Alanine Aminotransferase (ALT/SGPT) 13 12-78 U/L Alkaline Phosphatase 110 45-117 U/L Troponin I < 0.015 0-0.045 ng/ml Total Protein 7.3 6.4-8.2 gm/dl Albumin 3.7 3.4-5.0 gm/dl Lipase 138 73-393 U/L Digoxin Level 0.7 0.8-2.0 ng/ml Urine Color YELLOW Urine Appearance CLEAR CLEAR Urine pH 5.5 4.5-7.5 Urine Specific [place] 1.013 1.000-1.030 Urine Protein TRACE NEG Urine Glucose (UA) NEG NEG Urine Ketones 1+ NEG Urine Occult Blood NEG NEG Urine Nitrite NEG NEG Urine Bilirubin NEG NEG Urine Urobilinogen NEG NEG Urine Leukocyte Esterase TRACE NEG Urine WBC (Auto) 1-5 0-5 /hpf Urine RBC (Auto) 0-4 0-4 /hpf Urine Hyaline Casts (Auto) 1-5 0-5 /lpf Urine Epithelial Cells (Auto) 10-20 0-5 /lpf Urine Bacteria (Auto) NEG NEG
[2017-03-31 14:40] VITALS: BP 108/74; PULSE 73; TEMP 37; O2SAT 97
[2017-03-31 16:00] VITALS: O2SAT 96
[2017-03-31] MEDS ORDERED: DIGOXIN 0.125 MG TAB PO SCH (16:00)
[2017-03-31] MEDS ORDERED: ALUMINUM/MAGNESIUM SUSP 30 ML UDC PO PRN (18:30)
[2017-03-31 23:26] VITALS: BP 92/60; PULSE 54; TEMP 37.1; O2SAT 97
[2017-04-01 07:49] VITALS: BP 96/61; PULSE 50; TEMP 36.6; O2SAT 97
[2017-04-01] MEDS: ESCITALOPRAM OXALATE 10 MG TAB PO SCH (08:18)
[2017-04-01] MEDS: METOCLOPRAMIDE HCL INJ 5 MG/ML 2 ML VIAL IV. SCH ×2 (08:19→13:00)
[2017-04-01] MEDS: FLUTICASONE/SALMETEROL 250/50 (ADVAIR) 14 PUFF/1 INHALER INH SCH (08:20)
[2017-04-01] MEDS: LEVOTHYROXINE SODIUM INJ 37.5 MCG in SYRINGE 0 ML IV SCH (09:09)
[2017-04-01] MEDS: FAMOTIDINE IV INJ 20 MG in DEXTROSE 5% 100ML 100 ML IV SCH (09:10)
[2017-04-01] MEDS: D5W AND 1/2NSS 1,000 ML IV SCH (09:14)
--- NOTE | 2017-04-01 09:33 | Progress Note ---
Internal Med Progress Note Date of Service: Apr 01, 2017. Provider Documentation: SUBJECTIVE: Patient is doing much better today. Nausea completely resolved. No vomiting, epigastric pain Asking for food. Ambulating well in hallway No fever, chills OBJECTIVE: Vital Signs-as noted below Exam: General - AAOX3, not in distress Eyes-No icterus Neck-Supple Lungs-AEBE, no wheezing, rhonchi Heart-S1, S2 normal, no murmurs Abdomen-Soft, no epigastric tenderness or distension, BS present Extremities-No edema Lab data as noted below. ASSESSMENT & PLAN: GASTROPARESIS WITH HX OF HIATAL HERNIA REPAIR Patient is a known case of gastroparesis with multiple admissions in past for the same. Hx of . H/O hiatal hernia repair performed by Dr. Coyle and a gastric sleeve performed at [facility] -Symptoms resolved completely. Advance diet to regular -Received Emend in ED -IV Fluids- okay to discontinue -Antiemetics -Work up- KUB x ray- no obstruction HYPOTHYROIDISM Last TSH:4.2 -Continue Synthroid -Switch to PO when nausea under control COPD -No signs of exacerbation RECURRENT PVCS Asymptomatic ANXIETY/DEPRESSION -Continue with Clonazepam PRN/Lexapro as at home DVT Px SCDs CODE STATUS: Full code DISPOSITION Okay to discharge home today if tolerates PO for lunch Vital Signs: Date Time Temp Pulse Resp B/P (MAP) Pulse Ox O2 Delivery O2 Flow Rate FiO2 04/01/17 07:49 36.6 50 20 96/61 (73) 97 04/01/17 00:00 Room Air 03/31/17 23:26 37.1 54 20 92/60 (71) 97 Room Air 03/31/17 21:30 Room Air 03/31/17 18:13 87 03/31/17 16:00 96 Room Air 03/31/17 14:40 37.0 73 16 108/74 (85) 97 Room Air
--- NOTE | 2017-04-01 09:36 | Discharge Instructions ---
Discharge Instructions Date of Service Apr 01, 2017. Admission Reason for Admission: Epigastric Abdominal Pain, Nausea Discharge Discharge Diagnosis / Problem: 1. Gastroparesis Discharge Goals Goal(s): Diagnostic testing, Therapeutic intervention Activity Recommendations Activity Limitations: resume your previous activity . Instructions / Follow-Up Instructions / Follow-Up No changes in medications FOLLOW UP 1. Follow up with Dr Coppola 04/05/17 at 10:45 AM Current Hospital Diet Patient's current hospital diet: Regular Diet Discharge Diet Recommended Diet: Regular Diet Pending Studies Studies pending at discharge: no Medical Emergencies . Who to Call and When: Medical Emergencies: If at any time you feel your situation is an emergency, please call 911 immediately. . Non-Emergent Contact Non-Emergency issues call your: Primary Care Provider . . "Provider Documentation" section prepared by Larisa Rowell. . VTE Core Measure Inpt VTE Proph given/why not?: Beto Price, SCD's
--- NOTE | 2017-04-01 09:38 | Discharge Summary ---
Discharge Summary Date of Service Apr 01, 2017. Discharge Summary Admission Date: Mar 30, 2017 at 20:19 Discharge Date: Apr 01, 2017 Discharge Disposition: Home Principal Diagnosis: 1. Gastroparesis Secondary Diagnoses/Problems: 1. Hypothyroidism 2. Anxiety /Depression Procedures: KUB IV fluids Consultations: None Pending Studies/Follow-Up: . Instructions / Follow-Up Instructions / Follow-Up No changes in medications FOLLOW UP 1. Follow up with Dr Coppola 04/05/17 at 10:45 AM Medication Reconciliation Continued Medications: Aluminum Hydroxide-Mag Trisil (Gaviscon) 1 Chw Chw 2 TABS PO TID PRN for Dyspepsia Clonazepam (Klonopin) 0.5 Mg Tab 0.5 MG PO TID PRN for Anxiety/Agitation Dexlansoprazole (Dexilant) 30 Mg Cap 30 MG PO DAILY Digoxin (Digoxin) 0.125 Mg Tab 0.125 MG PO DAILY Escitalopram (Lexapro) 10 Mg Tab 10 MG PO DAILY, TAB Famotidine (Pepcid) 20 Mg Tab 20 MG PO BID, TAB Fosaprepitant Dimeglumine (Emend) 150 Mg Rosalia 5 ML IV MONTHLY Levothyroxine Sodium (Levothyroxine Sodium) 75 Mcg Tab 75 MCG PO DAILY Metoclopramide (Reglan) 10 Mg Tab 10 MG PO ACHS, TAB Ondansetron Hcl (Zofran) 4 Mg Tab 4 MG PO Q6H PRN for Nausea, TAB Multivit-Min W/Fe-Fa ( And Iron) 1 Tab Tab 1 TAB PO DAILY Prochlorperazine Maleate (Compazine) 10 Mg Tab 10 MG PO Q6H PRN for Nausea or Vomiting, TAB Admission Information HPI (per Admitting provider): Patient is a 56 yr female with a PMH of recurrent gastroparesis, dumping syndrome, GERD, COPD, recurrent PVCs, hypothyroidism and other problems who was recently discharged after being treated conservatively for severe gastroparesis presents with h/o nausea/dry heaves and epigastric pain which radiates to back since this morning.She states she had the same symptoms during last admission. She reports a history of a hiatal hernia repair performed by Dr. Coyle and a gastric sleeve performed at [place]. She received Emend in ED. She follows with Dr. Ridley for gastroparesis. She states she has been belching a lot and has acid reflex. States epigastric pain is 6/10, constant dull, no aggravating/relieving factors and states she gets similar pain on multiple occasions previously. Denies any fever, chills, SOB, chest pain, headache, dizziness, diarrhea, urinary symptoms, cough, wheezing. Physical Exam (per Admitting): General Appearance: WD/WN, + mild distress (secondary to nausea) Head: normocephalic, atraumatic Eyes: normal inspection, PERRL, EOMI, sclerae normal ENT: normal ENT inspection, hearing grossly normal Neck: supple, trachea midline Respiratory/Chest: chest non-tender, lungs clear, normal breath sounds, no respiratory distress, no accessory muscle use Cardiovascular: regular rate, rhythm, no edema, no murmur Abdomen/GI: normal bowel sounds, soft, + tenderness (Epigastric) Back: normal inspection, + pertinent finding (Tender mid thoracic ) Extremities/Musculoskelatal: normal inspection, no pedal edema Neurologic/Psych: welder 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 Hx of . H/O hiatal hernia repair performed by Dr. Coyle and a gastric sleeve performed at [facility] -Symptoms resolved completely. Advance diet to regular -Received Emend in ED -IV Fluids- okay to discontinue -Antiemetics -Work up- KUB x ray- no obstruction HYPOTHYROIDISM Last TSH:4.2 -Continue Synthroid -Switch to PO when nausea under control COPD -No signs of exacerbation RECURRENT PVCS Asymptomatic ANXIETY/DEPRESSION -Continue with Clonazepam PRN/Lexapro as at home DVT Px SCDs CODE STATUS: Full code DISPOSITION Okay to discharge home today if tolerates PO for lunch Total time spent on discharge = 25 MINUTES This includes examination of the patient, discharge planning, medication reconciliation, and communication with other providers. Discharge Instructions Activity Recommendations Activity Limitations: resume your previous activity . Instructions / Follow-Up Instructions / Follow-Up No changes in medications FOLLOW UP 1. Follow up with Dr Coppola 04/05/17 at 10:45 AM Current Hospital Diet Patient's current hospital diet: Regular Diet Discharge Diet Recommended Diet: Regular Diet Pending Studies Studies pending at discharge: no Medical Emergencies . Who to Call and When: Medical Emergencies: If at any time you feel your situation is an emergency, please call 911 immediately. . Non-Emergent Contact Non-Emergency issues call your: Primary Care Provider . . "Provider Documentation" section prepared by Larisa Rowell. . VTE Core Measure Inpt VTE Proph given/why not?: Beto Price, SCD's
[2017-04-01 11:59] VITALS: BP 96/61; PULSE 50; TEMP 36.6; O2SAT 97
[2017-06-15] MEDS ORDERED: PROM1SUP19 PR (12:09)
[2017-06-18] MEDS ORDERED: OXYC-57 PO (10:33)
== END 2017-04-01 15:42 | disposition home or self-care (01) ==
LOC: C.EDB 14:14 → C.MS2W 20:19 → EDBEDREQ 20:43 → ENRESERV 20:45
PROVIDERS: ADMIT Internal Medicine; ATTEND Internal Medicine
DX: K31.84 Gastroparesis (principal); E03.9 Hypothyroidism, unspecified; F32.9 Major depressive disorder, single episode, unspecified; K91.1 Postgastric surgery syndromes; J44.9 Chronic obstructive pulmonary disease, unspecified; D50.9 Iron deficiency anemia, unspecified; E78.5 Hyperlipidemia, unspecified; G62.9 Polyneuropathy, unspecified; I34.0 Nonrheumatic mitral (valve) insufficiency; Z90.710 Acquired absence of both cervix and uterus; Z90.721 Acquired absence of ovaries, unilateral; Z90.3 Acquired absence of stomach [part of]; Z86.14 Personal history of Methicillin resistant Staphylococcus aureus infection; Z83.3 Family history of diabetes mellitus; Z82.49 Family history of ischemic heart disease and other diseases of the circulatory system; Z84.1 Family history of disorders of kidney and ureter

== ENCOUNTER 2017-04-15 04:07 | Observation (INO) | payer OTHER ==
[~2017-04-15] VITALS: Ht 165.1 cm; Wt 60.9 kg
[~2017-04-15 04:07] MED LIST changes: -ADVIN25050 INH; -ALBINS/ INH; -ALBU18002 INH; +ALUMCHW2 PO; +CLON0.5T3 PO; +DEXL30CA5 PO; +ESCI10TA17 PO; +LNX125 PO; +METO-157 PO; +PRENTAB89 PO; +[UNRECOGNIZED DRUG - CODE] IV
[2017-04-15] MEDS ORDERED: SODIUM CHLORIDE 0.9% 1000ML 1,000 ML IV STA (04:16)
[2017-04-15] MEDS ORDERED: PROCHLORPERAZINE 5 MG/ML 2 ML VIAL IV STA (04:16)
[2017-04-15] MEDS ORDERED: DiphenhydrAMINE HCL 50 MG/ML VIAL IV STA (04:16)
[2017-04-15] MEDS ORDERED: MoRPHine SULFATE 10 MG/ML CARP/VIAL IV STA ×2 (04:16→04:50)
--- NOTE | 2017-04-15 04:20 | EMERGENCY ROOM VISIT NOTE ---
History First contact with patient: 04:16 Chief Complaint: ABDOMINAL PAIN Stated Complaint: NAUSEA,DRY HEAVES,STOMACH AND BACK PAIN History of Present Illness The patient is a 56 year old female who presents to the Emergency Room with complaints of 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 (14) Gastroparesis (15) GERD (gastroesophageal reflux disease) (16) Hyperlipidemia Nec/Nos (17) Hypothyroidism (18) Hypothyroidism Nos (19) Iron Defic Anemia Nos (20) Mitral regurgitation (21) MRSA bacteremia (22) Nausea (23) Neuropathy (24) Pemphigus vulgaris (25) Pernicious anemia (26) Pernicious Anemia (27) Premature atrial contractions (28) Tobacco abuse Surgical Problems: (1) H/O colonoscopy (2) H/O esophagogastroduodenoscopy (3) H/O oophorectomy (4) H/O: hysterectomy (5) History of bladder surgery (6) S/P hysterectomy (7) S/P laparoscopic sleeve gastrectomy (8) S/P partial gastrectomy (9) S/P repair of paraesophageal hernia (10) S/P repair of paraesophageal hernia (11) S/P tonsillectomy and adenoidectomy (12) S/P tonsillectomy and adenoidectomy Family History Diabetes mellitus MOTHER SISTER FH: aneurysm FH: cancer FH: heart disease FATHER MOTHER Hypertension BROTHER Kidney disease Social History Smoking Status: Current Every Day Smoker Alcohol Use: none Drug Use: none Marital Status: single Housing Status: lives alone Occupation Status: disabled Current/Historical Medications Scheduled Dexlansoprazole (Dexilant), 30 MG PO DAILY Digoxin (Digoxin), 0.125 MG PO DAILY Escitalopram (Lexapro), 10 MG PO DAILY Famotidine (Pepcid), 20 MG PO BID Fosaprepitant Dimeglumine (Emend), 5 ML IV MONTHLY Levothyroxine Sodium (Levothyroxine Sodium), 75 MCG PO DAILY Metoclopramide (Reglan), 10 MG PO ACHS Multivit-Min W/Fe-Fa ( And Iron), 1 TAB PO DAILY Scheduled PRN Aluminum Hydroxide-Mag Trisil (Gaviscon), 2 TABS PO TID PRN for Dyspepsia Clonazepam (Klonopin), 0.5 MG PO TID PRN for Anxiety/Agitation Ondansetron Hcl (Zofran), 4 MG PO Q6H PRN for Nausea Prochlorperazine Maleate (Compazine), 10 MG PO Q6H PRN for Nausea or Vomiting Allergies Coded Allergies: Amoxicillin (Verified Adverse Reaction, Intermediate, yeast infection, 02/27) NSAIDs (Verified Adverse Reaction, Mild, indegestion, 02/27/17) Rofecoxib (Verified Adverse Reaction, Mild, indigestion, 02/27/17) Scopolamine (Verified Adverse Reaction, Mild, rash from patch, 02/27/17) Physical Exam Vital Signs Date Time Temp Pulse Resp B/P (MAP) Pulse Ox O2 Delivery O2 Flow Rate FiO2 04/15/17 04:11 37.0 67 18 150/104 98 Room Air Medical Decision & Procedures Laboratory Results Test 04/15/17 04:16 04/15/17 04:20 Departure Information Referrals Jaleel Coppola M.D. (PCP) Patient Instructions My [facility] History & Physical Date of Service Apr 15, 2017.
--- NOTE | 2017-04-15 04:24 | EMERGENCY ROOM VISIT NOTE ---
History Report prepared by [place]: Eric Yeh Under the Supervision of: Dr. Nadir Munguia M.D. First contact with patient: 04:16 Chief Complaint: ABDOMINAL PAIN Stated Complaint: NAUSEA,DRY HEAVES,STOMACH AND BACK PAIN History of Present Illness The patient is a 56 year old female with a history of gastroparesis who presents to the Emergency Room with complaints of a persistent illness that started 2 days ago. She says that she initially started feeling tired and nauseous 2 days ago, and then yesterday, had more nausea with dry heaves. Yesterday, the patient states that she developed a dull abdominal pain that radiates to her back. She rates the pain as a 5 out of 10 in severity. The patient notes that she took her regular Compazine with no relief of her symptoms. She says that her symptoms are very similar to her prior gastroparesis attacks. She says that she last ate 2 days ago, but she did take her Digoxin last night. The patient denies any fevers, chills, bowel issues, or urinary symptoms. She says that she follows up with Dr. Ridley for her chronic gastroparesis. The patient states that she gets monthly Emend injections. Source of History: patient Onset: 2 days ago Position: other (global - illness) Timing: other (persistent) Associated Symptoms: + nausea, + abdominal pain (5/10), + back pain, + fatigue, No fevers, No chills, No urinary symptoms Note: Associated symptoms: Dry heaves. Denies bowel issues. Review of Systems See HPI for pertinent positives & negatives. A total of 10 systems reviewed and were otherwise negative. Past Medical & Surgical Medical Problems: (1) Abdominal pain (2) Anemia, iron deficiency (3) Anemia, iron deficiency (4) Anxiety (5) Anxiety State Nos (6) Asthma (7) Chronic Obstructive Asthma, Nos (8) COPD (chronic obstructive pulmonary disease) (9) Depression (10) Diarrhea (11) Diverticulosis (12) Esophagitis Nos (13) Frequent PVCs (14) Gastroparesis (15) GERD (gastroesophageal reflux disease) (16) Hyperlipidemia Nec/Nos (17) Hypothyroidism (18) Hypothyroidism Nos (19) Iron Defic Anemia Nos (20) Mitral regurgitation (21) MRSA bacteremia (22) Nausea (23) Neuropathy (24) Pemphigus vulgaris (25) Pernicious anemia (26) Pernicious Anemia (27) Premature atrial contractions (28) Tobacco abuse Surgical Problems: (1) H/O colonoscopy (2) H/O esophagogastroduodenoscopy (3) H/O oophorectomy (4) H/O: hysterectomy (5) History of bladder surgery (6) S/P hysterectomy (7) S/P laparoscopic sleeve gastrectomy (8) S/P partial gastrectomy (9) S/P repair of paraesophageal hernia (10) S/P repair of paraesophageal hernia (11) S/P tonsillectomy and adenoidectomy (12) S/P tonsillectomy and adenoidectomy Family History Diabetes mellitus MOTHER SISTER FH: aneurysm FH: cancer FH: heart disease FATHER MOTHER Hypertension BROTHER Kidney disease Social History Smoking Status: Current Every Day Smoker Alcohol Use: none Drug Use: none Marital Status: single Housing Status: lives alone Occupation Status: disabled Current/Historical Medications Scheduled Dexlansoprazole (Dexilant), 30 MG PO DAILY Digoxin (Digoxin), 0.125 MG PO DAILY Escitalopram (Lexapro), 10 MG PO DAILY Famotidine (Pepcid), 20 MG PO BID Fosaprepitant Dimeglumine (Emend), 5 ML IV MONTHLY Levothyroxine Sodium (Levothyroxine Sodium), 75 MCG PO DAILY Metoclopramide (Reglan), 10 MG PO ACHS Multivit-Min W/Fe-Fa ( And Iron), 1 TAB PO DAILY Scheduled PRN Aluminum Hydroxide-Mag Trisil (Gaviscon), 2 TABS PO TID PRN for Dyspepsia Clonazepam (Klonopin), 0.5 MG PO TID PRN for Anxiety/Agitation Ondansetron Hcl (Zofran), 4 MG PO Q6H PRN for Nausea Prochlorperazine Maleate (Compazine), 10 MG PO Q6H PRN for Nausea or Vomiting Allergies Coded Allergies: Amoxicillin (Verified Adverse Reaction, Intermediate, yeast infection, 02/27) NSAIDs (Verified Adverse Reaction, Mild, indegestion, 02/27/17) Rofecoxib (Verified Adverse Reaction, Mild, indigestion, 02/27/17) Scopolamine (Verified Adverse Reaction, Mild, rash from patch, 02/27/17) Physical Exam Vital Signs Date Time Temp Pulse Resp B/P (MAP) Pulse Ox O2 Delivery O2 Flow Rate FiO2 04/15/17 06:02 71 16 127/98 97 Room Air 04/15/17 05:08 77 16 134/97 97 04/15/17 04:43 78 16 151/107 94 04/15/17 04:11 37.0 67 18 150/104 98 Room Air Physical Exam GENERAL: Patient is anxious appearing and in moderate distress, actively dry heaving. HEENT: No acute trauma, normocephalic atraumatic, mucous membranes moist, no nasal congestion, no scleral icterus. NECK: No stridor, no adenopathy, no meningismus, trachea is midline. LUNGS: No dyspnea. Clear to auscultation and equal bilaterally. No wheeze, no rhonchi. HEART: Regular rate and rhythm. No murmurs, rubs, gallops appreciated. ABDOMEN: Soft, nontender, bowel sounds positive, no masses appreciated, no peritonitis. BACK: No midline tenderness, no CVA tenderness EXTREMITIES: Normal motion all extremities, no cyanosis, no edema. NEUROLOGIC: Alert and oriented, no acute motor or sensory deficits, no focal weakness, cranial nerves grossly intact. SKIN: No rash, no jaundice, no diaphoresis. Medical Decision & Procedures Laboratory Results 04/15/17 04:30 Red Blood Count 4.53, Mean Corpuscular Volume 81.9, Mean Corpuscular Hemoglobin 28.0, Mean Corpuscular Hemoglobin Concent 34.2, Mean Platelet Volume 9.3, Neutrophils (%) (Auto) 72.4, Lymphocytes (%) (Auto) 21.1, Monocytes (%) (Auto) 5.7, Eosinophils (%) (Auto) 0.6, Basophils (%) (Auto) 0.1, Neutrophils # (Auto) 5.75, Lymphocytes # (Auto) 1.68, Monocytes # (Auto) 0.45, Eosinophils # (Auto) 0.05, Basophils # (Auto) 0.01 04/15/17 04:30 Test 04/15/17 04:30 White Blood Count 7.95 K/uL (4.8-10.8) Red Blood Count 4.53 M/uL (4.2-5.4) Hemoglobin 12.7 g/dL (12.0-16.0) Hematocrit 37.1 % (37-47) Mean Corpuscular Volume 81.9 fL (80-100) Mean Corpuscular Hemoglobin 28.0 pg (25-34) Mean Corpuscular Hemoglobin Concent 34.2 g/dl (32-36) Platelet Count 277 K/uL (130-400) Mean Platelet Volume 9.3 fL (7.4-10.4) Neutrophils (%) (Auto) 72.4 % Lymphocytes (%) (Auto) 21.1 % Monocytes (%) (Auto) 5.7 % Eosinophils (%) (Auto) 0.6 % Basophils (%) (Auto) 0.1 % Neutrophils # (Auto) 5.75 K/uL (1.4-6.5) Lymphocytes # (Auto) 1.68 K/uL (1.2-3.4) Monocytes # (Auto) 0.45 K/uL (0.11-0.59) Eosinophils # (Auto) 0.05 K/uL (0-0.5) Basophils # (Auto) 0.01 K/uL (0-0.2) RDW Standard Deviation 47.8 fL (36.4-46.3) RDW Coefficient of Variation 15.8 % (11.5-14.5) Immature Granulocyte % (Auto) 0.1 % Immature Granulocyte # (Auto) 0.01 K/uL (0.00-0.02) Anion Gap 9.0 mmol/L (3-11) Est Creatinine Clear Calc Drug Dose 57.5 ml/min Estimated GFR () 75.6 Estimated GFR (Non- 65.2 BUN/Creatinine Ratio 10.1 (10-20) Calcium Level 8.9 mg/dl (8.5-10.1) Magnesium Level 2.0 mg/dl (1.8-2.4) Total Bilirubin 0.4 mg/dl (0.2-1) Direct Bilirubin 0.1 mg/dl (0-0.2) Aspartate Amino Transf (AST/SGOT) 12 U/L (15-37) Alanine Aminotransferase (ALT/SGPT) 15 U/L (12-78) Alkaline Phosphatase 94 U/L (45-117) Troponin I < 0.015 ng/ml (0-0.045) Total Protein 6.7 gm/dl (6.4-8.2) Albumin 3.6 gm/dl (3.4-5.0) Lipase 131 U/L (73-393) Digoxin Level 0.8 ng/ml (0.8-2.0) Laboratory results as reviewed by me. Medications Administered Medications (Trade) Dose Ordered Sig/Marisol Route Start Time Stop Time Status Last Admin Dose Admin Sodium Chloride 1,000 ml @ 999 mls/hr Q1H1M STAT IV 04/15/17 04:16 04/15/17 05:16 DC 04/15/17 04:37 999 MLS/HR Prochlorperazine Edisylate (Compazine Inj) 10 mg NOW STAT IV 04/15/17 04:16 04/15/17 04:20 DC 04/15/17 04:38 10 MG Diphenhydramine HCl (Benadryl Inj) 50 mg NOW STAT IV 04/15/17 04:16 04/15/17 04:20 DC 04/15/17 04:36 50 MG Morphine Sulfate (MoRPHine SULFATE INJ) 6 mg NOW STAT IV 04/15/17 04:16 04/15/17 04:20 DC 04/15/17 04:40 6 MG Ondansetron HCl (Zofran Inj) 8 mg NOW STAT IV 04/15/17 04:50 04/15/17 04:51 DC 04/15/17 05:08 8 MG ED Course 0416: Ordered Morphine Sulfate Inj 6 mg IV, Benadryl Inj 50 mg IV, Compazine Inj 10 mg IV, NSS 1000 ml @ 999 mls/hr IV. 0420: The patient was evaluated in room B2. A complete history and physical exam was performed. 0449: I reevaluated the patient and she is still nauseous and in pain. The patient verbally expressed understanding and agreement of the treatment plan. The patient will be evaluated for further treatment. 0450: Ordered Zofran Inj 8 mg IV. 0515: I discussed the patient with Dr. Sanchez Brown irradiated fuel handler - he will evaluate the patient for further treatment. Medical Decision Differential: Gastroparesis, Gastroenteritis, Food Borne, Esophageal Perforation , , Electrolyte Abnormality, Dehydration, Intraabdominal Infection, UTI /Pyelonephritis, Bowel Obstruction, Biliary Pathology, amongst other pathology entertained. Blood Pressure Screening: Patient was found to have a slightly elevated blood pressure due to circumstances. I do not believe that the patient requires hypertension monitoring. Medication Reconciliation: I attest that I have personally reviewed the patient 's current medication list. 56 yr old female well known to department for periodic episodes of intractable abdominal pain and vomiting felt secondary to gastroparesis. Exam benign other than vomiting profusely. Abdomen benign as well. Labs unremarkable. Patient stable. Consults Time Called: 0510 Consulting Physician: Dr. Sanchez Brown irradiated fuel handler Returned Call: 0515 I discussed the patient with Dr. Sanchez Brown irradiated fuel handler - he will evaluate the patient for further treatment. Impression Primary Impression: Gastroparesis Scribe Attestation The scribe's documentation has been prepared under my direction and personally reviewed by me in its entirety. I confirm that the note above accurately reflects all work, treatment, procedures, and medical decision making performed by me. Departure Information Dispostion Being Evaluated By Hospitalist Referrals Jaleel Coppola M.D. (PCP) Patient Instructions My [facility]
[2017-04-15 04:40] LABS: BASO % 0.1 %; BASO ABS # 0.01 K/uL (0-0.2); COMPLETE YES; EOS % 0.6 %; HEMATOCRIT 37.1 % (37-47); IG% 0.1 %; LYMPH % 21.1 %; LYMPH ABS # 1.68 K/uL (1.2-3.4); MEAN CELL VOLUME 81.9 fL (80-100); MEAN CORPUSCULAR HGB CONC 34.2 g/dl (32-36); MEAN PLATELET VOLUME 9.3 fL (7.4-10.4); MONO % 5.7 %; NEUT % 72.4 %; PLATELET COUNT 277 K/uL (130-400); RED BLOOD COUNT 4.53 M/uL (4.2-5.4); WHITE BLOOD COUNT 7.95 K/uL (4.8-10.8)
[2017-04-15] MEDS ORDERED: ONDANSETRON INJ 2 MG/ML 2 ML VIAL IV STA (04:50)
[2017-04-15 04:58] LABS: ALT/SGPT 15 U/L (12-78); AST/SGOT 12 U/L (15-37); BLOOD UREA NITROGEN 10 mg/dl (7-18); BUN/CREATININE RATIO 10.1 (10-20); CALCIUM 8.9 mg/dl (8.5-10.1); CARBON DIOXIDE 24 mmol/L (21-32); CHLORIDE 110 mmol/L (98-107); CREATININE 0.96 mg/dl (0.60-1.20); GLUCOSE 132 mg/dl (70-99); POTASSIUM 3.8 mmol/L (3.5-5.1); SODIUM 143 mmol/L (136-145)
[2017-04-15 05:04] LABS: ALKALINE PHOSPHATASE 94 U/L (45-117)
[2017-04-15] MEDS ORDERED: FAMO40TA6 PO (05:29)
[2017-04-15] MEDS ORDERED: ONDANSETRON INJ 2 MG/ML 2 ML VIAL IV PRN ×2 (06:00)
[2017-04-15] MEDS ORDERED: METOCLOPRAMIDE HCL INJ 5 MG/ML 2 ML VIAL IV PRN (06:00)
[2017-04-15] MEDS ORDERED: ACETAMINOPHEN 325 MG TAB PO PRN (06:00)
[2017-04-15] MEDS ORDERED: TRAMADOL HCL 50 MG TAB PO PRN (06:00)
[2017-04-15] MEDS ORDERED: CLONAZEPAM 0.5 MG TAB PO PRN (06:00)
[2017-04-15] MEDS ORDERED: ACETAMINOPHEN IV 650 MG in EMPTY BAG 0 ML IV PRN (06:00)
[2017-04-15] MEDS ORDERED: IV FLUIDS COMPLETED PRN (06:15)
--- NOTE | 2017-04-15 06:40 | HISTORY & PHYSICAL EXAMINATION ---
DATE OF ADMISSION: 04/15/2017 PRIMARY CARE PHYSICIAN: Dr. Coppola. CHIEF COMPLAINT: Abdominal pain, nausea, vomiting. HISTORY OF PRESENT ILLNESS: History obtained from the patient and records. Medical history is significant for gastroparesis, hypothyroidism, reflux, COPD, history of MRSA, history PACs/PVCs, anxiety, depression. ongoing tobacco abuse. Recent confinement 3 weeks ago for gastroparesis flare up. Two days history of achy epigastric pain, nausea and vomiting, good bowel movement, no fever, and no chills. Episode similar to gastroparesis attacks. No chest pain, no shortness of breath. Intractable symptoms despite interventions rendered at the Emergency Room. MEDICAL HISTORY: As above. SURGICAL HISTORY: Hernia repair, bladder surgery, hysterectomy, ovary removal, tonsillectomy, adenectomy, hernia repair. HOME MEDICATIONS: Include, Gaviscon, Klonopin, digoxin, Lexapro, Pepcid, levothyroxine, Reglan, Zofran, vitamins, Compazine. ALLERGIES: TO AMOXICILLIN, SCOPOLAMINE, NSAIDS. FAMILY HISTORY: Family history of heart disease, thyroid cancer, diabetes. PERSONAL SOCIAL HISTORY: Pack daily. No chronic EtOH , on disability. REVIEW OF SYSTEMS: As per HPI. all other ROS negative. PHYSICAL EXAMINATION: VITAL SIGNS: Blood pressure 134/97, pulse rate 80, RR 16, temperature 37, sats 98 on room air. GENERAL: Noted to be slightly uncomfortable, no respiratory distress. SKIN: Normal color. HEENT: [place] palpebral conjunctivae. Dry mucosa. NECK: No JVD. Supple. CHEST: Clear to auscultation. HEART: Regular rate and rhythm. ABDOMEN: Epigastric tenderness. Healed incisional scars. EXTREMITIES: No edema. No tenderness NEUROLOGIC: No gross focality. LABS: Hemoglobin was noted to be 12.7, platelets 277. Sodium was noted to be 143, potassium 3.8, chloride 110, CO2 24, BUN 10, creatinine 0.9, glucose 132. Digoxin level was 0.8. ASSESSMENT: 1. Recurrent abdominal pain possible gastroparesis flare up rule out bowel obstruction, hx multiple abdominal surgeries. 3. Mood disorder, stable. 4. History of chronic obstructive pulmonary disease. Ongoing tobacco abuse. pulmo status at baseline. 5. History of ectopy on digoxin. 6. History MRSA. 8. Hypothyroidism, euthyroid as of today's TSH. PLAN: Observation GMF analgesia, antiemetics Facilitate Emend I did tell the patient I was uncomfortable prescribing IV narcotics for her gastroparesis flare up. GI consult if persistent symptoms despite initial intervention. Px known to Dr. Ridley. Plain x-rays of the abdomen rule out SBO Nicotine patch. DVT prophylaxis, Lovenox subQ. Full code. MTDD
[2017-04-15 06:58] VITALS: BP 127/98; PULSE 98; TEMP 37; O2SAT 97; Ht 165.1 cm; Wt 60.9 kg
[2017-04-15] MEDS ORDERED: SODIUM CHLOR 0.45% + 20MEQ KCL 1,000 ML IV ONE (07:00)
[2017-04-15] MEDS ORDERED: FOSAPREPITANT DIMEGLUMINE INJ 150 MG in SODIUM CHLORIDE 0.9% 150ML 145 ML IV STA (07:04)
[2017-04-15] MEDS: PROMETHAZINE HCL INJ 12.5 MG in SODIUM CHLORIDE 0.9% 50ML 50 ML IV PRN ×2 (07:15→12:32)
[2017-04-15] MEDS: FAMOTIDINE 20 MG TAB PO SCH ×2 (07:52→19:43)
[2017-04-15] MEDS: PANTOprazole SOD 40 MG TAB PO SCH (07:52)
[2017-04-15] MEDS: NICOTINE 21 MG/24 HR TDSY TD SCH (08:00)
[2017-04-15] MEDS: PRENATAL VITAMIN TAB PO SCH (08:00)
--- NOTE | 2017-04-15 09:17 | DIAGNOSTIC IMAGING REPORT ---
ABDOMEN 2VIEW W/PA CHEST RTN CLINICAL HISTORY: recurrent abd pain NAUSEA. COMPARISON STUDY: Supine abdomen dated 03/30/2017 , chest x-ray dated 02/27/2017 FINDINGS: There is a fracture right-sided A-Port catheter, unchanged in position when compared the prior chest x-ray. The heart is normal in size. There is no free intraperitoneal air. There is chronic blunting of the right lateral costophrenic angle. There is a contrast collection at the level of the esophagogastric junction, similar to the prior study.] Supine views the abdomen reveal surgical clips the right upper quadrant consistent with a prior cholecystectomy. There are multiple surgical clips and suture lines within the left upper quadrant. There are no abnormally dilated loops of large or small bowel. There are no transition zone to indicate bowel obstruction. There are multiple pelvic basin calcifications, similar in orientation the prior study and likely representing phleboliths. IMPRESSION: Postsurgical change. No evidence of bowel obstruction. No evidence of free air. Electronically signed by: Osmany Rahman M.D. 04/15/2017 9:15 AM Dictated Date/Time: 04/15/2017 9:13 AM
[2017-04-15 09:23] VITALS: BP_SYST 162; BP_SYST 164; BP_DIAS 102; BP_DIAS 106; PULSE 72; TEMP 36.9; O2SAT 98
[2017-04-15 10:10] LABS: INR 0.9 (0.9-1.1); PROTHROMBIN TIME (PATIENT) 10.1 SECONDS (9.0-12.0)
--- NOTE | 2017-04-15 12:10 | Progress Note ---
Internal Med Progress Note Date of Service: Apr 15, 2017. Provider Documentation: SUBJECTIVE: Patient is feeling better. Nausea has improved Had vomiting today AM, but feeling better now No abdominal pain Asking for food. OBJECTIVE: Vital Signs-as noted below Exam: General-AAOX3, no distress Neck-No JVD Lungs-AEBE no wheezing, rhonchi Heart-S1, S2 normal, no murmurs Abdomen-soft, non tender, non distended, BS present Extremities-No edema Lab data as noted below. ASSESSMENT & PLAN: GASTROPARESIS WITH HX OF HIATAL HERNIA REPAIR : Patient is a known case of gastroparesis with multiple admissions in past for the same. Hx of . H/O hiatal hernia repair performed by Dr. Coyle and a gastric sleeve performed at [facility] -Feeling better, Nausea vomiting better. -Received Emend x 1 dose -S/P IV Fluids -Antiemetics PRN -Work up- KUB x ray - no obstruction HYPOTHYROIDISM Last TSH:4.2 -Continue Synthroid COPD -No signs of exacerbation RECURRENT PVCS -Asymptomatic ANXIETY/DEPRESSION -Continue with Clonazepam PRN/Lexapro as at home DVT Px SCDs CODE STATUS: Full code DISPOSITION Okay to discharge home once stable Vital Signs: Date Time Temp Pulse Resp B/P (MAP) Pulse Ox O2 Delivery O2 Flow Rate FiO2 04/15/17 09:23 36.9 72 20 162/102 (122) 98 164/106 (125) 04/15/17 06:58 37.0 98 16 127/98 97 Room Air 04/15/17 06:02 71 16 127/98 97 Room Air 04/15/17 05:08 77 16 134/97 97 04/15/17 04:43 78 16 151/107 94 04/15/17 04:11 37.0 67 18 150/104 98 Room Air Lab Results: Results Past 24 Hours Test 04/15/17 04:30 04/15/17 09:47 Range/Units White Blood Count 7.95 4.8-10.8 K/uL Red Blood Count 4.53 4.2-5.4 M/uL Hemoglobin 12.7 12.0-16.0 g/dL Hematocrit 37.1 37-47 % Mean Corpuscular Volume 81.9 80-100 fL Mean Corpuscular Hemoglobin 28.0 25-34 pg Mean Corpuscular Hemoglobin Concent 34.2 32-36 g/dl Platelet Count 277 130-400 K/uL Mean Platelet Volume 9.3 7.4-10.4 fL Neutrophils (%) (Auto) 72.4 % Lymphocytes (%) (Auto) 21.1 % Monocytes (%) (Auto) 5.7 % Eosinophils (%) (Auto) 0.6 % Basophils (%) (Auto) 0.1 % Neutrophils # (Auto) 5.75 1.4-6.5 K/uL Lymphocytes # (Auto) 1.68 1.2-3.4 K/uL Monocytes # (Auto) 0.45 0.11-0.59 K/uL Eosinophils # (Auto) 0.05 0-0.5 K/uL Basophils # (Auto) 0.01 0-0.2 K/uL RDW Standard Deviation 47.8 36.4-46.3 fL RDW Coefficient of Variation 15.8 11.5-14.5 % Immature Granulocyte % (Auto) 0.1 % Immature Granulocyte # (Auto) 0.01 0.00-0.02 K/uL Sodium Level 143 136-145 mmol/L Potassium Level 3.8 3.5-5.1 mmol/L Chloride Level 110 98-107 mmol/L Carbon Dioxide Level 24 21-32 mmol/L Anion Gap 9.0 3-11 mmol/L Blood Urea Nitrogen 10 7-18 mg/dl Creatinine 0.96 0.60-1.20 mg/dl Est Creatinine Clear Calc Drug Dose 57.5 ml/min Estimated GFR () 75.6 Estimated GFR (Non- 65.2 BUN/Creatinine Ratio 10.1 10-20 Random Glucose 132 70-99 mg/dl Calcium Level 8.9 8.5-10.1 mg/dl Magnesium Level 2.0 1.8-2.4 mg/dl Total Bilirubin 0.4 0.2-1 mg/dl Direct Bilirubin 0.1 0-0.2 mg/dl Aspartate Amino Transf (AST/SGOT) 12 15-37 U/L Alanine Aminotransferase (ALT/SGPT) 15 12-78 U/L Alkaline Phosphatase 94 45-117 U/L Troponin I < 0.015 0-0.045 ng/ml Total Protein 6.7 6.4-8.2 gm/dl Albumin 3.6 3.4-5.0 gm/dl Lipase 131 73-393 U/L Digoxin Level 0.8 0.8-2.0 ng/ml Prothrombin Time 10.1 9.0-12.0 SECONDS Prothromb Time International Ratio 0.9 0.9-1.1
[2017-04-15] MEDS: ENOXAPARIN 40 MG/0.4 ML SYR SQ SCH (12:27)
[2017-04-15] MEDS: ALUMINUM/MAGNESIUM SUSP 30 ML UDC PO PRN ×2 (12:27→17:28)
[2017-04-15 12:35] LABS: URINE APPEARANCE CLEAR (CLEAR); URINE BILIRUBIN NEG (NEG); URINE NITRITE NEG (NEG); URINE SPECIFIC GRAVITY 1.013 (1.000-1.030); UROBILINOGEN NEG (NEG); ZZUR CULT IF INDIC CLEAN CATCH NO
[2017-04-15 12:39] LABS: MANUAL MICROSCOPIC REQUIRED? NO; REVIEW REQ? NO; URINE COLOR YELLOW
[2017-04-15 16:00] VITALS: O2SAT 98
[2017-04-15] MEDS ORDERED: DIGOXIN 0.125 MG TAB PO SCH (16:00)
[2017-04-15 16:19] VITALS: BP 102/67; PULSE 52; TEMP 36.9; O2SAT 97
[2017-04-15] MEDS: ESCITALOPRAM OXALATE 10 MG TAB PO SCH (17:25)
[2017-04-15 18:22] VITALS: PULSE 72
[2017-04-15 23:13] VITALS: BP 92/64; PULSE 68; TEMP 36.8; O2SAT 95
[2017-04-16] VITALS: O2SAT 98
[2017-04-16] MEDS ORDERED: LEVOTHYROXINE 75 MCG TAB PO SCH (06:30)
[2017-04-16] MEDS: NICOTINE 21 MG/24 HR TDSY TD SCH (07:20)
[2017-04-16] MEDS: FAMOTIDINE 20 MG TAB PO SCH (07:21)
[2017-04-16] MEDS: PRENATAL VITAMIN TAB PO SCH (07:21)
[2017-04-16] MEDS: PANTOprazole SOD 40 MG TAB PO SCH (07:21)
[2017-04-16] MEDS: ESCITALOPRAM OXALATE 10 MG TAB PO SCH (07:21)
[2017-04-16 07:43] VITALS: BP 100/66; PULSE 62; TEMP 36.7; O2SAT 98
[2017-04-16] MEDS: ENOXAPARIN 40 MG/0.4 ML SYR SQ SCH (10:10)
--- NOTE | 2017-04-16 12:08 | Progress Note ---
Internal Med Progress Note Date of Service: Apr 16, 2017. Provider Documentation: SUBJECTIVE: Patient is feeling better, eating her lunch and eager to be discharged. No more episodes of vomiting. No abdominal pain OBJECTIVE: Vital Signs-as noted below Exam: General-AAOX3, no distress Neck-No JVD Lungs-AEBE no wheezing, rhonchi Heart-S1, S2 normal, no murmurs Abdomen-soft, non tender, non distended, BS present Extremities-No edema Lab data as noted below. ASSESSMENT & PLAN: GASTROPARESIS WITH HX OF HIATAL HERNIA REPAIR : Patient is a known case of gastroparesis with multiple admissions in past for the same. Hx of . H/O hiatal hernia repair performed by Dr. Coyle and a gastric sleeve performed at [facility] -Feeling better,no more nausea/vomiting and tolerating diet well -Received Emend x 1 dose -S/P IV Fluids -Antiemetics PRN -Work up- KUB x ray - no obstruction HYPOTHYROIDISM Last TSH:4.2 -Continue Synthroid COPD -No signs of exacerbation RECURRENT PVCS -Asymptomatic ANXIETY/DEPRESSION -Continue with Clonazepam PRN/Lexapro as at home DVT Px SCDs CODE STATUS: Full code DISPOSITION Eager to be discharged Okay to discharge home today. Vital Signs: Date Time Temp Pulse Resp B/P (MAP) Pulse Ox O2 Delivery O2 Flow Rate FiO2 04/16/17 08:00 Room Air 04/16/17 07:43 36.7 62 16 100/66 (77) 98 Room Air 04/16/17 00:00 98 Room Air 04/15/17 23:13 36.8 68 18 92/64 (73) 95 Room Air 04/15/17 18:22 72 04/15/17 17:27 72 04/15/17 16:19 36.9 52 17 102/67 (79) 97 Room Air 04/15/17 16:00 98 Room Air
--- NOTE | 2017-04-16 12:11 | Discharge Summary ---
Discharge Summary Date of Service Apr 16, 2017. Discharge Summary Admission Date: Apr 15, 2017 at 05:55 Discharge Date: Apr 16, 2017 Discharge Disposition: Home Principal Diagnosis: 1. Gastroparesis Secondary Diagnoses/Problems: 1. Depression/Anxiety 2. Hypothyroidism 3. COPD Procedures: IV fluids CXR/Abd x ray-negative for obstruction IV Zofran PRN Consultations: None Pending Studies/Follow-Up: . Instructions / Follow-Up Instructions / Follow-Up MEDICATION CHANGES: None FOLLOW UP 1. Follow up with Dr Coppola on 04/20/17 at 10:45 AM Medication Reconciliation Continued Medications: Aluminum Hydroxide-Mag Trisil (Gaviscon) 1 Chw Chw 2 TABS PO TID PRN for Dyspepsia Clonazepam (Klonopin) 0.5 Mg Tab 0.5 MG PO TID PRN for Anxiety/Agitation Dexlansoprazole (Dexilant) 30 Mg Cap 30 MG PO DAILY Digoxin (Digoxin) 0.125 Mg Tab 0.125 MG PO DAILY Escitalopram (Lexapro) 10 Mg Tab 10 MG PO DAILY, TAB Famotidine (Pepcid) 40 Mg Tab 20 MG PO BID, TAB Fosaprepitant Dimeglumine (Emend) 150 Mg Rosalia 5 ML IV MONTHLY Levothyroxine Sodium (Levothyroxine Sodium) 75 Mcg Tab 75 MCG PO DAILY Metoclopramide (Reglan) 10 Mg Tab 10 MG PO ACHS, TAB Ondansetron Hcl (Zofran) 4 Mg Tab 4 MG PO Q6H PRN for Nausea, TAB Multivit-Min W/Fe-Fa ( And Iron) 1 Tab Tab 1 TAB PO DAILY Prochlorperazine Maleate (Compazine) 10 Mg Tab 10 MG PO Q6H PRN for Nausea or Vomiting, TAB Admission Information HPI (per Admitting provider): HISTORY OF PRESENT ILLNESS: History obtained from the patient and records. Medical history is significant for gastroparesis, hypothyroidism, reflux, COPD, history of MRSA, history PACs/PVCs, anxiety, depression. ongoing tobacco abuse. Recent confinement 3 weeks ago for gastroparesis flare up. Two days history of achy epigastric pain, nausea and vomiting, good bowel movement, no fever, and no chills. Episode similar to gastroparesis attacks. No chest pain, no shortness of breath. Intractable symptoms despite interventions rendered at the Emergency Room. Hospital Course GASTROPARESIS WITH HX OF HIATAL HERNIA REPAIR : Patient is a known case of gastroparesis with multiple admissions in past for the same. Hx of . H/O hiatal hernia repair performed by Dr. Coyle and a gastric sleeve performed at [facility] -Feeling better,no more nausea/vomiting and tolerating diet well -Received Emend x 1 dose -S/P IV Fluids -Antiemetics PRN -Work up- KUB x ray - no obstruction HYPOTHYROIDISM Last TSH:4.2 -Continue Synthroid COPD -No signs of exacerbation RECURRENT PVCS -Asymptomatic ANXIETY/DEPRESSION -Continue with Clonazepam PRN/Lexapro as at home DVT Px SCDs CODE STATUS: Full code DISPOSITION Eager to be discharged Okay to discharge home today. Total time spent on discharge = 25 minutes This includes examination of the patient, discharge planning, medication reconciliation, and communication with other providers. Discharge Instructions Discharge Goals Goal(s): Improve disease control, Prevent Disease Progression Activity Recommendations Activity Limitations: resume your previous activity . Instructions / Follow-Up Instructions / Follow-Up MEDICATION CHANGES: None FOLLOW UP 1. Follow up with Dr Coppola on 04/20/17 at 10:45 AM Current Hospital Diet Patient's current hospital diet: Regular Diet Discharge Diet Recommended Diet: Regular Diet (as tolerated) Pending Studies Studies pending at discharge: no Medical Emergencies . Who to Call and When: Medical Emergencies: If at any time you feel your situation is an emergency, please call 911 immediately. . Non-Emergent Contact Non-Emergency issues call your: Primary Care Provider . . "Provider Documentation" section prepared by Larisa Rowell. . VTE Core Measure Inpt VTE Proph given/why not?: SCD's
[2017-04-16 12:13] VITALS: BP 100/66; PULSE 62; TEMP 36.7; O2SAT 98
[2017-06-15] MEDS ORDERED: PROM1SUP19 PR (12:09)
[2017-06-18] MEDS ORDERED: OXYC-57 PO (10:33)
== END 2017-04-16 12:45 | disposition home or self-care (01) ==
LOC: C.EDB 04:08 → C.4E 05:55 → ENRESERV 06:00
PROVIDERS: ADMIT Internal Medicine; ATTEND Internal Medicine
DX: K31.84 Gastroparesis (principal); F32.9 Major depressive disorder, single episode, unspecified; F41.9 Anxiety disorder, unspecified; E03.9 Hypothyroidism, unspecified; J44.9 Chronic obstructive pulmonary disease, unspecified; I34.0 Nonrheumatic mitral (valve) insufficiency; I49.1 Atrial premature depolarization; E78.5 Hyperlipidemia, unspecified; D50.9 Iron deficiency anemia, unspecified; K21.9 Gastro-esophageal reflux disease without esophagitis; G62.9 Polyneuropathy, unspecified; F17.200 Nicotine dependence, unspecified, uncomplicated; Z79.899 Other long term (current) drug therapy

== ENCOUNTER 2017-04-21 08:56 | Observation (INO) | payer OTHER ==
[2017-04-21] VITALS (9 sets, daily range): BP systolic 150–178; BP diastolic 91–122; PULSE 64–74; TEMP 36.8; O2SAT 94–98; Ht 165.1 cm; Wt 60.9 kg
[~2017-04-21] VITALS: Ht 165.1 cm; Wt 60.9 kg
[~2017-04-21 08:56] MED LIST changes: -FAMO20TA9 PO; +FAMO40TA6 PO
[2017-04-21] MEDS ORDERED: MoRPHine SULFATE 4 MG/ML 1 ML CARP\\VIAL IV STA ×2 (09:15→10:25)
[2017-04-21] MEDS ORDERED: DiphenhydrAMINE HCL 50 MG/ML VIAL IV STA (09:15)
[2017-04-21] MEDS ORDERED: SODIUM CHLORIDE 0.9% 1000ML 1,000 ML IV STA (09:15)
[2017-04-21] MEDS ORDERED: ONDANSETRON INJ 2 MG/ML 2 ML VIAL IV STA (09:15)
--- NOTE | 2017-04-21 09:16 | EMERGENCY ROOM VISIT NOTE ---
History Report prepared by [place]: Kiya Eaton Under the Supervision of: Dr. Cheyenne Ibrahim M.D. First contact with patient: 09:08 Chief Complaint: NAUSEA Stated Complaint: NAUSEA, STOMACH AND BACK PAIN, GASTROPARESES Nursing Triage Summary: Pt reports history of gastroparesis. States last night began having epigastric pain into her back. Nausea, dry heaving. Denies v/d. History of Present Illness The patient is a 56 year old female who presents to the Emergency Room with complaints of persistent nausea that began last evening. She currently rates her discomfort as a 5/10 in severity. The patient states that she has a history of gastroparesis and reports a current exacerbation. She states that last evening she developed nausea. The patient states that she has been experiencing abdominal pain that radiates into her back. She additionally reports a history of acid reflux. The patient states that she takes Reglan at home. She states that she follows with gastroenterology. The patient states that she tried taking Zofran and Compazine for her symptoms without relief. The patient denies any diarrhea. Source of History: patient Onset: last evening Position: other (global) Symptom Intensity: 5/10 Quality: other (nausea) Timing: other (persistent) Associated Symptoms: + abdominal pain, + back pain, No diarrhea Review of Systems See HPI for pertinent positives & negatives. A total of 10 systems reviewed and were otherwise negative. Past Medical & Surgical Medical Problems: (1) Abdominal pain (2) Anemia, iron deficiency (3) Anemia, iron deficiency (4) Anxiety (5) Anxiety State Nos (6) Asthma (7) Chronic Obstructive Asthma, Nos (8) COPD (chronic obstructive pulmonary disease) (9) Depression (10) Diarrhea (11) Diverticulosis (12) Esophagitis Nos (13) Frequent PVCs (14) Gastroparesis (15) GERD (gastroesophageal reflux disease) (16) Hyperlipidemia Nec/Nos (17) Hypothyroidism (18) Hypothyroidism Nos (19) Iron Defic Anemia Nos (20) Mitral regurgitation (21) MRSA bacteremia (22) Nausea (23) Neuropathy (24) Pemphigus vulgaris (25) Pernicious anemia (26) Pernicious Anemia (27) Premature atrial contractions (28) Tobacco abuse Surgical Problems: (1) H/O colonoscopy (2) H/O esophagogastroduodenoscopy (3) H/O oophorectomy (4) H/O: hysterectomy (5) History of bladder surgery (6) S/P hysterectomy (7) S/P laparoscopic sleeve gastrectomy (8) S/P partial gastrectomy (9) S/P repair of paraesophageal hernia (10) S/P repair of paraesophageal hernia (11) S/P tonsillectomy and adenoidectomy (12) S/P tonsillectomy and adenoidectomy Family History Diabetes mellitus MOTHER SISTER FH: aneurysm FH: cancer FH: heart disease FATHER MOTHER Hypertension BROTHER Kidney disease Social History Smoking Status: Current Every Day Smoker Alcohol Use: none Drug Use: none Marital Status: single Housing Status: lives alone Occupation Status: disabled Current/Historical Medications Scheduled Dexlansoprazole (Dexilant), 30 MG PO DAILY Digoxin (Digoxin), 0.125 MG PO DAILY Escitalopram (Lexapro), 10 MG PO DAILY Famotidine (Pepcid), 20 MG PO BID Fosaprepitant Dimeglumine (Emend), 5 ML IV MONTHLY Levothyroxine Sodium (Levothyroxine Sodium), 75 MCG PO DAILY Metoclopramide (Reglan), 10 MG PO ACHS Multivit-Min W/Fe-Fa ( And Iron), 1 TAB PO DAILY Scheduled PRN Aluminum Hydroxide-Mag Trisil (Gaviscon), 2 TABS PO TID PRN for Dyspepsia Clonazepam (Klonopin), 0.5 MG PO TID PRN for Anxiety/Agitation Ondansetron Hcl (Zofran), 4 MG PO Q6H PRN for Nausea Prochlorperazine Maleate (Compazine), 10 MG PO Q6H PRN for Nausea or Vomiting Allergies Coded Allergies: Amoxicillin (Verified Adverse Reaction, Intermediate, yeast infection, ) NSAIDs (Verified Adverse Reaction, Mild, indegestion, 04/21/17) Rofecoxib (Verified Adverse Reaction, Mild, indigestion, 04/21/17) Scopolamine (Verified Adverse Reaction, Mild, rash from patch, 04/21/17) Physical Exam Vital Signs Date Time Temp Pulse Resp B/P (MAP) Pulse Ox O2 Delivery O2 Flow Rate FiO2 04/21/17 14:17 66 172/125 98 Room Air 04/21/17 13:55 Room Air 7/29/17 13:17 93 167/121 96 Room Air 04/21/17 11:01 71 18 148/107 95 Room Air 04/21/17 10:26 65 18 155/108 97 Room Air 04/21/17 09:33 97 Room Air 04/21/17 08:59 36.8 63 19 153/93 98 Room Air Physical Exam Vital signs reviewed. General: Elderly. Generally well-appearing female, in no significant distress. HEENT: No scleral icterus, PERRLA, neck supple. Atraumatic. Cardiovascular: Regular rate and rhythm, no extra sounds. Pulmonary: Clear to auscultation bilaterally, normal work of breathing. Abdomen: Soft, mild diffuse abdominal tenderness, nondistended, positive bowel sounds, no rebound, no guarding. Musculoskeletal: Atraumatic, no peripheral edema. Neurologic: Patient awake alert and oriented x 3, full strength in all 4 extremities. Cranial nerves 2 through 12 grossly intact. Skin: Warm, dry, no rash Medical Decision & Procedures Laboratory Results Test 04/21/17 09:20 04/21/17 11:45 RDW Standard Deviation 49.3 fL (36.4-46.3) RDW Coefficient of Variation 16.0 % (11.5-14.5) White Blood Count 6.57 K/uL (4.8-10.8) Red Blood Count 4.45 M/uL (4.2-5.4) Hemoglobin 12.3 g/dL (12.0-16.0) Hematocrit 37.2 % (37-47) Mean Corpuscular Volume 83.6 fL (80-100) Mean Corpuscular Hemoglobin 27.6 pg (25-34) Mean Corpuscular Hemoglobin Concent 33.1 g/dl (32-36) Platelet Count 263 K/uL (130-400) Mean Platelet Volume 9.7 fL (7.4-10.4) Neutrophils (%) (Auto) 69.0 % Lymphocytes (%) (Auto) 23.1 % Monocytes (%) (Auto) 6.5 % Eosinophils (%) (Auto) 0.9 % Basophils (%) (Auto) 0.3 % Neutrophils # (Auto) 4.53 K/uL (1.4-6.5) Lymphocytes # (Auto) 1.52 K/uL (1.2-3.4) Monocytes # (Auto) 0.43 K/uL (0.11-0.59) Eosinophils # (Auto) 0.06 K/uL (0-0.5) Basophils # (Auto) 0.02 K/uL (0-0.2) Immature Granulocyte % (Auto) 0.2 % Immature Granulocyte # (Auto) 0.01 K/uL (0.00-0.02) Magnesium Level 2.1 mg/dl (1.8-2.4) Total Bilirubin 0.4 mg/dl (0.2-1) Direct Bilirubin < 0.1 mg/dl (0-0.2) Aspartate Amino Transf (AST/SGOT) 14 U/L (15-37) Alanine Aminotransferase (ALT/SGPT) 20 U/L (12-78) Alkaline Phosphatase 101 U/L (45-117) Total Protein 6.7 gm/dl (6.4-8.2) Albumin 3.5 gm/dl (3.4-5.0) Lipase 123 U/L (73-393) Urine Color YELLOW Urine Appearance CLEAR (CLEAR) Urine pH 6.5 (4.5-7.5) Urine Specific [place] 1.010 (1.000-1.030) Urine Protein NEG (NEG) Urine Glucose (UA) NEG (NEG) Urine Ketones NEG (NEG) Urine Occult Blood TRACE (NEG) Urine Nitrite NEG (NEG) Urine Bilirubin NEG (NEG) Urine Urobilinogen NEG (NEG) Urine Leukocyte Esterase TRACE (NEG) Urine WBC (Auto) 1-5 /hpf (0-5) Urine RBC (Auto) 0-4 /hpf (0-4) Urine Hyaline Casts (Auto) 0 /lpf (0-5) Urine Epithelial Cells (Auto) 10-20 /lpf (0-5) Urine Bacteria (Auto) NEG (NEG) Laboratory results per my review. Medications Administered Medications (Trade) Dose Ordered Sig/Marisol Route Start Time Stop Time Status Last Admin Dose Admin Diphenhydramine HCl (Benadryl Inj) 25 mg NOW STAT IV 04/21/17 09:15 04/21/17 09:17 DC 04/21/17 09:32 25 MG Ondansetron HCl (Zofran Inj) 4 mg NOW STAT IV 04/21/17 09:15 04/21/17 09:17 DC 04/21/17 09:32 4 MG Morphine Sulfate (MoRPHine SULFATE INJ) 4 mg NOW STAT IV 04/21/17 09:15 04/21/17 09:17 DC 04/21/17 09:32 4 MG Sodium Chloride 1,000 ml @ 200 mls/hr Q5H STAT IV 04/21/17 09:15 04/21/17 14:14 DC 04/21/17 09:32 200 MLS/HR Morphine Sulfate (MoRPHine SULFATE INJ) 4 mg NOW STAT IV 04/21/17 10:25 04/21/17 10:27 DC 04/21/17 10:44 4 MG Promethazine HCl 12.5 mg/Sodium Chloride 50.5 ml @ 204 mls/hr NOW STAT IV 04/21/17 10:25 04/21/17 10:39 DC 04/21/17 10:44 204 MLS/HR Prochlorperazine Edisylate (Compazine Inj) 10 mg NOW STAT IV 04/21/17 12:56 04/21/17 12:57 DC 04/21/17 13:10 10 MG Acetaminophen (Tylenol Tab) 650 mg Q4H PRN PO 04/21/17 14:30 05/21/17 14:29 04/21/17 22:44 650 MG Ondansetron HCl (Zofran Inj) 4 mg Q6H PRN IV 04/21/17 14:30 05/21/17 14:29 04/21/17 20:58 4 MG Dextrose/Sodium Chloride 1,000 ml @ 100 mls/hr Q10H IV 04/21/17 14:30 05/21/17 14:29 04/21/17 23:22 100 MLS/HR ED Course 0913: Past medical records reviewed. The patient was evaluated in room B9. A complete history and physical examination was performed. 0915: Ordered Sodium Chloride 1000 ml @ 200 mls/hr IV, Morphine sulfate 4 mg IV , Zofran Inj 4 mg IV, Benadryl Inj 25 mg IV. 1025: Ordered Promethazine HCl 12.5 mg/Sodium Chloride 50.5 ml @ 204 mls/hr IV, Morphine Sulfate 4 mg IV. 1255: I reevaluated the patient and she is resting comfortably. I discussed the exam findings with her and I discussed the treatment plan with her. She verbalized complete understanding and agreement. She is going to be evaluated for further treatment. 1256: Ordered Compazine Inj 10 mg IV. 1258: I discussed the patients case with Stephanie Trammell. She is going to send Dr. Maher down to evaluate the patient for further treatment and evaluation. Medical Decision Differential diagnosis: Etiologies such as gastroenteritis, food borne illness, infections, appendicitis , diverticulitis, inflammatory bowel disease, obstruction, GI bleed, biliary pathology, gastroparesis exacerbation, as well as others were entertained. This patient was evaluated and appeared to be in no significant distress. IV access was obtained and laboratory work was drawn. The patient was placed on the telemetry monitor and found to be in a normal sinus rhythm. She was given IV Benadryl, IV Zofran and IV morphine. She was hydrated with normal saline solution. The patient continued to complain of nausea. She had taken Reglan and Compazine earlier this morning. Later in the patient's visit she did receive IV Phenergan and with continued nausea was then given IV Compazine. The patient has frequent visits for similar symptoms. She does not feel that she has able to go home stating that she is "too sick." The hospitalist service was contacted and will consult in the emergency department. Medication Reconcilliation Current Medication List: was personally reviewed by me Blood Pressure Screening Patient's blood pressure: Elevated blood pressure Blood pressure disposition: Elevated BP felt to be situational, Did not require urgent referral Consults Time Called: 1255 Consulting Physician: Stephanie Trammell Returned Call: [phone] I discussed the patients case with Stephanie Trammell. She is going to send Dr. Maher down to evaluate the patient for further treatment and evaluation. Impression Primary Impression: Gastroparesis Scribe Attestation The scribe's documentation has been prepared under my direction and personally reviewed by me in its entirety. I confirm that the note above accurately reflects all work, treatment, procedures, and medical decision making performed by me. Departure Information Dispostion Being Evaluated By Hospitalist Referrals Jaleel Coppola M.D. (PCP)
[2017-04-21 09:37] LABS: BASO % 0.3 %; BASO ABS # 0.02 K/uL (0-0.2); COMPLETE YES; EOS % 0.9 %; HEMATOCRIT 37.2 % (37-47); IG% 0.2 %; LYMPH % 23.1 %; LYMPH ABS # 1.52 K/uL (1.2-3.4); MEAN CELL VOLUME 83.6 fL (80-100); MEAN CORPUSCULAR HEMOGLOBIN 27.6 pg (25-34); MEAN CORPUSCULAR HGB CONC 33.1 g/dl (32-36); MEAN PLATELET VOLUME 9.7 fL (7.4-10.4); MONO % 6.5 %; PLATELET COUNT 263 K/uL (130-400); RED BLOOD COUNT 4.45 M/uL (4.2-5.4); WHITE BLOOD COUNT 6.57 K/uL (4.8-10.8)
[2017-04-21 09:54] LABS: ALT/SGPT 20 U/L (12-78); AST/SGOT 14 U/L (15-37); BLOOD UREA NITROGEN 8 mg/dl (7-18); CALCIUM 8.8 mg/dl (8.5-10.1); CARBON DIOXIDE 28 mmol/L (21-32); CHLORIDE 109 mmol/L (98-107); CREATININE 0.86 mg/dl (0.60-1.20); GLUCOSE 103 mg/dl (70-99); MAGNESIUM 2.1 mg/dl (1.8-2.4); SODIUM 142 mmol/L (136-145)
[2017-04-21 09:56] LABS: ALKALINE PHOSPHATASE 101 U/L (45-117)
[2017-04-21] MEDS ORDERED: PROMETHAZINE HCL INJ 12.5 MG in SODIUM CHLORIDE 0.9% 50ML 50 ML IV STA (10:25)
[2017-04-21 12:07] LABS: URINE APPEARANCE CLEAR (CLEAR); URINE BILIRUBIN NEG (NEG); URINE COLOR YELLOW; URINE NITRITE NEG (NEG); URINE PH 6.5 (4.5-7.5); UROBILINOGEN NEG (NEG); ZZUR CULT IF INDIC CLEAN CATCH NO
[2017-04-21 12:11] LABS: MANUAL MICROSCOPIC REQUIRED? NO; REVIEW REQ? NO
[2017-04-21] MEDS ORDERED: PROCHLORPERAZINE 5 MG/ML 2 ML VIAL IV STA (12:56)
[2017-04-21] MEDS ORDERED: ONDANSETRON INJ 2 MG/ML 2 ML VIAL ONE (14:28)
[2017-04-21] MEDS: ONDANSETRON INJ 2 MG/ML 2 ML VIAL IV PRN ×2 (14:32→20:58)
[2017-04-21] MEDS ORDERED: ENALAPRILAT IV 0.625 MG in DEXTROSE 5% 25ML 25 ML IV PRN (15:15)
[2017-04-21] MEDS: D5W AND NSS 1,000 ML IV SCH ×2 (15:26→23:22)
[2017-04-21] MEDS ORDERED: PANTOprazole INJ 40 MG in SYRINGE 0 ML IV ONE (15:30)
[2017-04-21] MEDS ORDERED: FOSAPREPITANT DIMEGLUMINE INJ 115 MG in SODIUM CHLORIDE 0.9% 100ML 111.2 ML IV ONE (15:45)
[2017-04-21] MEDS: DIGOXIN 0.125 MG TAB PO SCH ×2 (16:00→22:46)
--- NOTE | 2017-04-21 16:43 | History and Physical ---
History & Physical Date & Time of Service: Apr 21, 2017 at 16:27 Chief Complaint: Nausea, Stomach And Back Pain, Gastropareses Primary Care Physician: Jaleel Coppola M.D. History of Present Illness Source: patient, clinic records, hospital records 56 year old female with history of Gastroparesis, PVCs, Hypothyroidism presenting with nausea and vomiting.. Patient was discharged from [facility] 5 days ago for nausea/vomiting secondary to Gastroparesis. She was doing fine until last night when she started to have nausea/vomiting again, which persisted until today, prompting ER consult. Patient was given multiple antiemetics at the ER with no relief of symptoms. On exam, patient was still nauseated with some epigastric discomfort- typical of her Gastroparesis symptoms. Last BM this morning. No chest pain, dyspnea, palpitations, dizziness. No other symptoms. Past Medical/Surgical History Medical Problems: (1) Anemia, iron deficiency Status: Chronic (2) Anxiety Status: Chronic (3) Anxiety State Nos Status: Chronic (4) Asthma Status: Chronic (5) Chronic Obstructive Asthma, Nos Status: Chronic (6) COPD (chronic obstructive pulmonary disease) Status: Chronic (7) Depression Status: Chronic (8) Diverticulosis Status: Chronic (9) Esophagitis Nos Status: Chronic (10) Frequent PVCs Status: Chronic (11) Gastroparesis Status: Chronic (12) GERD (gastroesophageal reflux disease) Status: Chronic (13) Hyperlipidemia Nec/Nos Status: Chronic (14) Hypothyroidism Status: Chronic (15) Hypothyroidism Nos Status: Chronic (16) Iron Defic Anemia Nos Status: Chronic (17) Mitral regurgitation Permanent Comment: moderate per echo 09/21/15 Status: Chronic (18) MRSA bacteremia Status: Resolved (19) Neuropathy Status: Chronic (20) Pemphigus vulgaris Status: Chronic (21) Pernicious anemia Status: Chronic (22) Pernicious Anemia Status: Chronic (23) Premature atrial contractions Status: Chronic (24) Tobacco abuse Status: Chronic Surgical Problems: (1) H/O colonoscopy Permanent Comment: 08/14/2013- Moderate diverticulosis in the sigmoid colon, in the descending colon and in the ascending colon. Internal hemorrhoids. Normal mucosa in the entire examined colon. Biopsied. Status: Chronic (2) H/O esophagogastroduodenoscopy Permanent Comment: 04/22/2015- - Stretta treatment to distal esophagus / GE junction and cardia.Three surgical logan were found in the esophagus at the GE junction and removed. Surgical suture was also found at the GE junction without evidence of dehiscence. Grade B GERD / erosive esophagitis. Sleeve gastrectomy with a large-sized pouch, intact staple line, post-operative mucosal scar, and evidence f pyloroplasty. Small gastric polyp, likely hyperplastic vs fundic gland polyp. Small hiatus hernia. Status: Chronic (3) H/O oophorectomy Permanent Comment: left ovary Status: Chronic (4) H/O: hysterectomy Status: Resolved (5) History of bladder surgery Status: Chronic (6) S/P hysterectomy Status: Chronic (7) S/P laparoscopic sleeve gastrectomy Status: Chronic (8) S/P partial gastrectomy Status: Chronic (9) S/P repair of paraesophageal hernia Status: Chronic (10) S/P repair of paraesophageal hernia Permanent Comment: resulted in volvulus, required abdominal exploration Status: Chronic (11) S/P tonsillectomy and adenoidectomy Status: Resolved (12) S/P tonsillectomy and adenoidectomy Status: Chronic Family History Diabetes mellitus MOTHER SISTER FH: aneurysm FH: cancer FH: heart disease FATHER MOTHER Hypertension BROTHER Kidney disease Social History Smoking Status: Current Every Day Smoker Alcohol Use: none Drug Use: none Marital Status: single Housing status: lives with family Occupational Status: disabled Immunizations History of Influenza Vaccine: Yes History of Tetanus Vaccine?: Unknown History of Pneumococcal: Unknown History of Hepatitis B Vaccine: Unknown Multi-Drug Resistant Organisms History of MDRO: Yes Type of MDRO: MRSA Allergies Coded Allergies: Amoxicillin (Verified Adverse Reaction, Intermediate, yeast infection, ) NSAIDs (Verified Adverse Reaction, Mild, indegestion, 04/21/17) Rofecoxib (Verified Adverse Reaction, Mild, indigestion, 04/21/17) Scopolamine (Verified Adverse Reaction, Mild, rash from patch, 04/21/17) Home Medications Scheduled Dexlansoprazole (Dexilant), 30 MG PO DAILY Digoxin (Digoxin), 0.125 MG PO DAILY Escitalopram (Lexapro), 10 MG PO DAILY Famotidine (Pepcid), 20 MG PO BID Fosaprepitant Dimeglumine (Emend), 5 ML IV MONTHLY Levothyroxine Sodium (Levothyroxine Sodium), 75 MCG PO DAILY Metoclopramide (Reglan), 10 MG PO ACHS Multivit-Min W/Fe-Fa ( And Iron), 1 TAB PO DAILY Scheduled PRN Aluminum Hydroxide-Mag Trisil (Gaviscon), 2 TABS PO TID PRN for Dyspepsia Clonazepam (Klonopin), 0.5 MG PO TID PRN for Anxiety/Agitation Ondansetron Hcl (Zofran), 4 MG PO Q6H PRN for Nausea Prochlorperazine Maleate (Compazine), 10 MG PO Q6H PRN for Nausea or Vomiting Review of Systems Constitutional- no fever; no weight loss Eyes- no acute visual changes ENT- no sinus drainage; no pharyngitis Pulmonary- no cough, no wheezing, no shortness of breath Cardiac- no chest pain, no palpitations, no orthopnea, no dependent edema GI- (+) as noted above - no dysuria, no hematuria Musculoskeletal- no arthralgias, no myalgias Derm- no rashes, no new skin lesions, no changing skin lesions Hematologic- no unusual bruising, no unusual bleeding Lymphatics- no adenopathy Endocrine- no polyuria or polydipsia; no heat or cold intolerance Neuro- no headaches, no focal neurologic symptoms Psych- no anxiety, no depression Physical Exam Vital Signs Date Time Temp Pulse Resp B/P (MAP) Pulse Ox O2 Delivery O2 Flow Rate FiO2 04/21/17 15:51 66 178/122 (140) 04/21/17 15:18 36.8 74 19 177/104 (128) 98 04/21/17 14:17 66 172/125 98 Room Air 04/21/17 13:55 Room Air 04/21/17 13:17 93 167/121 96 Room Air 04/21/17 11:01 71 18 148/107 95 Room Air 04/21/17 10:26 65 18 155/108 97 Room Air 04/21/17 09:33 97 Room Air 04/21/17 08:59 36.8 63 19 153/93 98 Room Air General Appearance: WD/WN, + pertinent finding (nauseated) Head: normocephalic, atraumatic Eyes: normal inspection, PERRL, sclerae normal ENT: normal ENT inspection, hearing grossly normal, pharynx normal Neck: supple, no adenopathy, thyroid normal, no JVD Respiratory/Chest: chest non-tender, lungs clear, normal breath sounds, no respiratory distress, no accessory muscle use Cardiovascular: regular rate, rhythm, no edema, no JVD, no murmur Abdomen/GI: non tender, soft, + pertinent finding (hypoactive bowel sounds) Back: normal inspection, no CVA tenderness Neurologic/Psych: machine splitter II-XII nml as tested, no motor/sensory deficits, alert, normal mood/affect, oriented x 3 Skin: normal color, warm/dry, no rash Lymphatic: no adenopathy Diagnostics Laboratory Results Results Past 24 Hours Test 04/21/17 09:20 04/21/17 11:45 Range/Units White Blood Count 6.57 4.8-10.8 K/uL Red Blood Count 4.45 4.2-5.4 M/uL Hemoglobin 12.3 12.0-16.0 g/dL Hematocrit 37.2 37-47 % Mean Corpuscular Volume 83.6 80-100 fL Mean Corpuscular Hemoglobin 27.6 25-34 pg Mean Corpuscular Hemoglobin Concent 33.1 32-36 g/dl Platelet Count 263 130-400 K/uL Mean Platelet Volume 9.7 7.4-10.4 fL Neutrophils (%) (Auto) 69.0 % Lymphocytes (%) (Auto) 23.1 % Monocytes (%) (Auto) 6.5 % Eosinophils (%) (Auto) 0.9 % Basophils (%) (Auto) 0.3 % Neutrophils # (Auto) 4.53 1.4-6.5 K/uL Lymphocytes # (Auto) 1.52 1.2-3.4 K/uL Monocytes # (Auto) 0.43 0.11-0.59 K/uL Eosinophils # (Auto) 0.06 0-0.5 K/uL Basophils # (Auto) 0.02 0-0.2 K/uL RDW Standard Deviation 49.3 36.4-46.3 fL RDW Coefficient of Variation 16.0 11.5-14.5 % Immature Granulocyte % (Auto) 0.2 % Immature Granulocyte # (Auto) 0.01 0.00-0.02 K/uL Sodium Level 142 136-145 mmol/L Potassium Level 4.0 3.5-5.1 mmol/L Chloride Level 109 98-107 mmol/L Carbon Dioxide Level 28 21-32 mmol/L Anion Gap 5.0 3-11 mmol/L Blood Urea Nitrogen 8 7-18 mg/dl Creatinine 0.86 0.60-1.20 mg/dl Estimated GFR () 86.3 Estimated GFR (Non- 74.5 BUN/Creatinine Ratio 9.0 10-20 Random Glucose 103 70-99 mg/dl Calcium Level 8.8 8.5-10.1 mg/dl Magnesium Level 2.1 1.8-2.4 mg/dl Total Bilirubin 0.4 0.2-1 mg/dl Direct Bilirubin < 0.1 0-0.2 mg/dl Aspartate Amino Transf (AST/SGOT) 14 15-37 U/L Alanine Aminotransferase (ALT/SGPT) 20 12-78 U/L Alkaline Phosphatase 101 45-117 U/L Total Protein 6.7 6.4-8.2 gm/dl Albumin 3.5 3.4-5.0 gm/dl Lipase 123 73-393 U/L Urine Color YELLOW Urine Appearance CLEAR CLEAR Urine pH 6.5 4.5-7.5 Urine Specific [place] 1.010 1.000-1.030 Urine Protein NEG NEG Urine Glucose (UA) NEG NEG Urine Ketones NEG NEG Urine Occult Blood TRACE NEG Urine Nitrite NEG NEG Urine Bilirubin NEG NEG Urine Urobilinogen NEG NEG Urine Leukocyte Esterase TRACE NEG Urine WBC (Auto) 1-5 0-5 /hpf Urine RBC (Auto) 0-4 0-4 /hpf Urine Hyaline Casts (Auto) 0 0-5 /lpf Urine Epithelial Cells (Auto) 10-20 0-5 /lpf Urine Bacteria (Auto) NEG NEG Diagnostic Radiology KUB xray pending Impression Assessment and Plan 56 year old female with history of Gastroparesis, PVCs, Hypothyroidism presenting with nausea and vomiting.. GASTROPARESIS - KUB ordered - Emend IV 1 dose - PRN Zofran, Compazine Protonix 40mg IV daily IV fluids NPO for now PVCs - continue Digoxin HYPOTHYROIDISM - continue Lthyroxine DVT prophylaxis SCDs, Lovenox Ambulate Dispo pending Advanced Directives Existing Living Will: No Existing Power of Client Consultant: No VTE Prophylaxis VTE Risk Assessment Done? Y/N: Yes Risk Level: Moderate Given or contraindicated: Enoxaparin (Lovenox)SQ, SCD's
--- NOTE | 2017-04-21 17:00 | DIAGNOSTIC IMAGING REPORT ---
KUB CLINICAL HISTORY: Vomiting and nausea. Evaluate for obstruction. COMPARISON STUDY: Abdominal series April 05, 2017. FINDINGS: Lower mediastinal contrast material is unchanged. A right [id number] is partially imaged. No free air is identified on the upright projection. Pelvic calcifications are unchanged and likely reflect phleboliths. There is no evidence for a bowel obstruction. IMPRESSION: No free air or evidence for a bowel obstruction. Electronically signed by: Alex Moy M.D. 04/21/2017 4:59 PM Dictated Date/Time: 04/21/2017 4:56 PM
[2017-04-21] MEDS: PROCHLORPERAZINE INJ 5 MG in SYRINGE 4 ML IV PRN (18:30)
[2017-04-21] MEDS ORDERED: PROMETHAZINE HCL INJ 12.5 MG in SODIUM CHLORIDE 0.9% 50ML 50 ML IV PRN (18:45)
[2017-04-21] MEDS ORDERED: PROMETHAZINE HCL INJ 12.5 MG in SODIUM CHLORIDE 0.9% 50ML 50 ML IV ONE (19:15)
[2017-04-21] MEDS: ACETAMINOPHEN 325 MG TAB PO PRN (22:44)
[2017-04-22] MEDS ORDERED: LORAZEPAM INJ 1 MG in SYRINGE 0.5 ML IV ONE (01:30)
[2017-04-22] MEDS: LEVOTHYROXINE 75 MCG TAB PO SCH (06:01)
[2017-04-22 07:15] VITALS: BP 109/74; PULSE 55; TEMP 36.7; O2SAT 94
[2017-04-22 08:00] VITALS: O2SAT 94
[2017-04-22] MEDS: ESCITALOPRAM OXALATE 10 MG TAB PO SCH (08:17)
[2017-04-22] MEDS ORDERED: ALUM HYDROX/MAG TRISILICATE CHEW PO PRN (08:30)
[2017-04-22 08:33] LABS: BASO % 0.2 %; BASO ABS # 0.01 K/uL (0-0.2); COMPLETE YES; EOS % 1.2 %; HEMATOCRIT 35.5 % (37-47); IG% 0.2 %; LYMPH ABS # 1.93 K/uL (1.2-3.4); MEAN CELL VOLUME 84.1 fL (80-100); MEAN CORPUSCULAR HEMOGLOBIN 27.3 pg (25-34); MEAN CORPUSCULAR HGB CONC 32.4 g/dl (32-36); MEAN PLATELET VOLUME 9.8 fL (7.4-10.4); MONO % 9.1 %; NEUT % 57.3 %; PLATELET COUNT 251 K/uL (130-400); RED BLOOD COUNT 4.22 M/uL (4.2-5.4); WHITE BLOOD COUNT 6.03 K/uL (4.8-10.8)
[2017-04-22] MEDS: FAMOTIDINE 20 MG TAB PO SCH ×2 (09:02→21:26)
[2017-04-22] MEDS: D5W AND NSS 1,000 ML IV SCH ×2 (09:04→21:25)
[2017-04-22 09:12] LABS: BLOOD UREA NITROGEN 6 mg/dl (7-18); BUN/CREATININE RATIO 6.2 (10-20); CALCIUM 8.4 mg/dl (8.5-10.1); CARBON DIOXIDE 28 mmol/L (21-32); CHLORIDE 107 mmol/L (98-107); CREATININE 0.89 mg/dl (0.60-1.20); GLUCOSE 93 mg/dl (70-99); POTASSIUM 3.9 mmol/L (3.5-5.1); SODIUM 142 mmol/L (136-145)
[2017-04-22] MEDS ORDERED: PANTOprazole INJ 40 MG in SYRINGE 0 ML IV SCH (11:00)
[2017-04-22] MEDS ORDERED: CLONAZEPAM 0.5 MG TAB PO PRN (11:15)
[2017-04-22] MEDS ORDERED: SUCRALFATE 1 GM/10 ML UDC PO PRN (11:30)
[2017-04-22] MEDS ORDERED: LORAZEPAM INJ 0.5 MG in SYRINGE 0.25 ML IV PRN (11:30)
[2017-04-22] MEDS ORDERED: ALUMINUM/MAGNESIUM SUSP 30 ML UDC PO PRN (11:30)
--- NOTE | 2017-04-22 11:32 | Progress Note ---
Medicine Progress Note Date & Time of Visit: Apr 22, 2017 at 11:32. Subjective seen resting in bed, comfortable states nausea has improved reports persistent reflux would like to advance diet though no other symptoms informed by RN in the evening as patient was having nausea again phenergan reordered Objective Last 8 Hrs Date Time Temp Pulse Resp B/P (MAP) Pulse Ox O2 Delivery O2 Flow Rate FiO2 04/22/17 08:00 94 Room Air 04/22/17 07:15 36.7 55 18 109/74 (86) 94 Room Air Physical Exam: General- oriented x 3, not in distress, speaks in sentences with no effort Eyes- EOMI, anicteric Neck- no JVD Lungs- clear to auscultation b/l Heart- regular rhythm; no murmur, normal rate Abdomen- normal bowel sounds, soft, nontender Extremities- no pretibial edema, no calf tenderness Neuro- alert, oriented x 3;no gross focal deficits Skin- warm & dry Laboratory Results: Last 24 Hours Test 04/21/17 11:45 04/21/17 19:43 04/22/17 08:16 Urine Color YELLOW Urine Appearance CLEAR Urine pH 6.5 Urine Specific [place] 1.010 Urine Protein NEG Urine Glucose (UA) NEG Urine Ketones NEG Urine Occult Blood TRACE Urine Nitrite NEG Urine Bilirubin NEG Urine Urobilinogen NEG Urine Leukocyte Esterase TRACE Urine WBC (Auto) 1-5 /hpf Urine RBC (Auto) 0-4 /hpf Urine Hyaline Casts (Auto) 0 /lpf Urine Epithelial Cells (Auto) 10-20 /lpf Urine Bacteria (Auto) NEG Digoxin Level 0.7 ng/ml White Blood Count 6.03 K/uL Red Blood Count 4.22 M/uL Hemoglobin 11.5 g/dL Hematocrit 35.5 % Mean Corpuscular Volume 84.1 fL Mean Corpuscular Hemoglobin 27.3 pg Mean Corpuscular Hemoglobin Concent 32.4 g/dl Platelet Count 251 K/uL Mean Platelet Volume 9.8 fL Neutrophils (%) (Auto) 57.3 % Lymphocytes (%) (Auto) 32.0 % Monocytes (%) (Auto) 9.1 % Eosinophils (%) (Auto) 1.2 % Basophils (%) (Auto) 0.2 % Neutrophils # (Auto) 3.46 K/uL Lymphocytes # (Auto) 1.93 K/uL Monocytes # (Auto) 0.55 K/uL Eosinophils # (Auto) 0.07 K/uL Basophils # (Auto) 0.01 K/uL RDW Standard Deviation 49.2 fL RDW Coefficient of Variation 15.9 % Immature Granulocyte % (Auto) 0.2 % Immature Granulocyte # (Auto) 0.01 K/uL Sodium Level 142 mmol/L Potassium Level 3.9 mmol/L Chloride Level 107 mmol/L Carbon Dioxide Level 28 mmol/L Anion Gap 7.0 mmol/L Blood Urea Nitrogen 6 mg/dl Creatinine 0.89 mg/dl Estimated GFR () 82.8 Estimated GFR (Non- 71.4 BUN/Creatinine Ratio 6.2 Random Glucose 93 mg/dl Calcium Level 8.4 mg/dl Assessment & Plan 56 year old female with history of Gastroparesis, PVCs, Hypothyroidism presenting with nausea and vomiting.. PERSISTENT NAUSEA, GASTROPARESIS - KUB ordered: no obstruction - Emend IV 1 dose given 04/21/17 - Reglan, PRN Phenergan, Compazine Protonix 40mg IV daily IV fluids - will consult Gastro PVCs - continue Digoxin HYPOTHYROIDISM - continue Lthyroxine DVT prophylaxis SCDs hold Lovenox as patient may need Endoscopy Ambulate Dispo pending anticipate d/c home when medically stable Current Inpatient Medications: Current Inpatient Medications Medications (Trade) Dose Ordered Sig/Marisol Route Start Time Stop Time Status Last Admin Dose Admin Acetaminophen (Tylenol Tab) 650 mg Q4H PRN PO 04/21/17 14:30 05/21/17 14:29 04/21/17 22:44 650 MG Ondansetron HCl (Zofran Inj) 4 mg Q6H PRN IV 04/21/17 14:30 05/21/17 14:29 04/21/17 20:58 4 MG Dextrose/Sodium Chloride 1,000 ml @ 75 mls/hr [id number] IV 04/21/17 14:30 05/21/17 14:29 04/22/17 09:04 100 MLS/HR Prochlorperazine Edisylate 5 mg/ Syringe 5 ml @ 5 mls/min Q6H PRN IV 04/21/17 15:15 05/21/17 15:14 04/21/17 18:30 5 MLS/MIN Enalaprilat 0.625 mg/Dextrose 25.5 ml @ 100 mls/hr Q6H PRN IV 04/21/17 15:15 05/21/17 15:14 04/21/17 16:01 100 MLS/HR Pantoprazole Sodium 40 mg/ Syringe 10 ml @ 5 mls/min DAILY@11 IV 04/22/17 11:00 05/22/17 10:59 04/22/17 11:20 5 MLS/MIN Digoxin (Lanoxin Tab) 0.125 mg DAILY@1600 PO 04/21/17 16:00 05/21/17 15:59 04/21/17 22:46 0.125 MG Escitalopram Oxalate (Lexapro Tab) 10 mg DAILY PO 04/22/17 09:00 05/22/17 08:59 04/22/17 08:17 10 MG Levothyroxine Sodium (Synthroid Tab) 75 mcg DAILYBB PO 04/22/17 06:30 05/22/17 06:29 04/22/17 06:01 75 MCG Miscellaneous (Iv Fluids Completed) 1 ea PRN PRN N/A 04/21/17 16:15 04/21/18 16:14 Promethazine HCl 12.5 mg/Sodium Chloride 50.5 ml @ 204 mls/hr Q6H PRN IV 04/21/17 18:45 05/21/17 18:44 Famotidine (Pepcid Tab) 20 mg BID PO 04/22/17 09:00 05/22/17 08:59 04/22/17 09:02 20 MG Al Hydroxide/Mg Trisilicate (Gaviscon Chew Tab) 2 tab TID PRN PO 04/22/17 08:30 05/22/17 08:29 04/22/17 09:02 2 TAB Clonazepam (Klonopin Tab) 0.5 mg TID PRN PO 04/22/17 11:15 05/22/17 11:14 Metoclopramide HCl (Reglan Tab) 10 mg ACHS PO 04/22/17 16:30 05/22/17 16:29
[2017-04-22 15:26] VITALS: BP 128/84; PULSE 61; TEMP 36.9; O2SAT 96
[2017-04-22] MEDS: PROCHLORPERAZINE INJ 5 MG in SYRINGE 4 ML IV PRN (15:46)
[2017-04-22 16:00] VITALS: O2SAT 96
[2017-04-22] MEDS: METOCLOPRAMIDE HCL 10 MG TAB PO SCH ×2 (16:40→21:25)
[2017-04-22 16:42] VITALS: BP 152/102; PULSE 62; O2SAT 97
[2017-04-22] MEDS: DIGOXIN 0.125 MG TAB PO SCH (16:43)
[2017-04-22] MEDS: ACETAMINOPHEN 325 MG TAB PO PRN (18:10)
[2017-04-22] MEDS ORDERED: PROMETHAZINE HCL INJ 12.5 MG in SODIUM CHLORIDE 0.9% 50ML 50 ML IV ONE (18:28)
[2017-04-22] MEDS ORDERED: PROMETHAZINE HCL INJ 12.5 MG in SODIUM CHLORIDE 0.9% 50ML 50 ML IV PRN (18:30)
[2017-04-22] MEDS: PANTOprazole INJ 40 MG in SYRINGE 0 ML IV SCH (21:25)
[2017-04-23 00:15] VITALS: BP 114/74; PULSE 69; TEMP 36.9; O2SAT 95
[2017-04-23] MEDS: METOCLOPRAMIDE HCL 10 MG TAB PO SCH ×2 (06:21→10:42)
[2017-04-23] MEDS: LEVOTHYROXINE 75 MCG TAB PO SCH (06:21)
[2017-04-23 07:19] VITALS: BP 102/67; PULSE 52; TEMP 36.8; O2SAT 96
[2017-04-23 07:50] LABS: BASO % 0.2 %; BASO ABS # 0.01 K/uL (0-0.2); COMPLETE YES; EOS % 2.4 %; IG% 0.2 %; LYMPH % 39.3 %; LYMPH ABS # 2.16 K/uL (1.2-3.4); MEAN CORPUSCULAR HEMOGLOBIN 26.5 pg (25-34); MEAN CORPUSCULAR HGB CONC 31.2 g/dl (32-36); MEAN PLATELET VOLUME 9.8 fL (7.4-10.4); MONO % 11.1 %; NEUT % 46.8 %; PLATELET COUNT 249 K/uL (130-400)
[2017-04-23] MEDS: PANTOprazole INJ 40 MG in SYRINGE 0 ML IV SCH (08:02)
[2017-04-23] MEDS: FAMOTIDINE 20 MG TAB PO SCH (08:02)
[2017-04-23] MEDS: ESCITALOPRAM OXALATE 10 MG TAB PO SCH (08:02)
[2017-04-23 08:21] LABS: BUN/CREATININE RATIO 10.2 (10-20); CALCIUM 8.2 mg/dl (8.5-10.1); POTASSIUM 3.8 mmol/L (3.5-5.1)
[2017-04-23] MEDS: D5W AND NSS 1,000 ML IV SCH (10:21)
[2017-04-23] MEDS: IV FLUIDS COMPLETED PRN ×2 (10:21→10:42)
--- NOTE | 2017-04-23 10:44 | Progress Note ---
Medicine Progress Note Date & Time of Visit: Apr 23, 2017 at 10:40. Subjective patient seen resting in bed, smiling, in good spirits states her nausea, abdominal pain has all resolved denies chest pain, dyspnea, dizziness no other symptoms states she is back to baseline tolerated clears, declines to wait until after lunch and GI eval patient states she is ready and would like to be discharged today Objective Last 8 Hrs Date Time Temp Pulse Resp B/P (MAP) Pulse Ox O2 Delivery O2 Flow Rate FiO2 04/23/17 07:19 36.8 52 16 102/67 (79) 96 Room Air Physical Exam: General- oriented x 3, not in distress, speaks in sentences with no effort Eyes-anicteric Neck- no JVD Lungs- clear breath sounds, no rales/wheezes bilaterally Heart- regular rhythm; no murmur, normal rate Abdomen- normal bowel sounds, soft, nontender, non distended Extremities- no pretibial edema, no calf tenderness Neuro- alert, oriented x 3;no gross focal deficits Skin- warm & dry Laboratory Results: Last 24 Hours Test 04/23/17 07:06 White Blood Count 5.50 K/uL Red Blood Count 4.00 M/uL Hemoglobin 10.6 g/dL Hematocrit 34.0 % Mean Corpuscular Volume 85.0 fL Mean Corpuscular Hemoglobin 26.5 pg Mean Corpuscular Hemoglobin Concent 31.2 g/dl Platelet Count 249 K/uL Mean Platelet Volume 9.8 fL Neutrophils (%) (Auto) 46.8 % Lymphocytes (%) (Auto) 39.3 % Monocytes (%) (Auto) 11.1 % Eosinophils (%) (Auto) 2.4 % Basophils (%) (Auto) 0.2 % Neutrophils # (Auto) 2.58 K/uL Lymphocytes # (Auto) 2.16 K/uL Monocytes # (Auto) 0.61 K/uL Eosinophils # (Auto) 0.13 K/uL Basophils # (Auto) 0.01 K/uL RDW Standard Deviation 48.9 fL RDW Coefficient of Variation 15.8 % Immature Granulocyte % (Auto) 0.2 % Immature Granulocyte # (Auto) 0.01 K/uL Sodium Level 146 mmol/L Potassium Level 3.8 mmol/L Chloride Level 112 mmol/L Carbon Dioxide Level 29 mmol/L Anion Gap 5.0 mmol/L Blood Urea Nitrogen 10 mg/dl Creatinine 1.00 mg/dl Est Creatinine Clear Calc Drug Dose 55.2 ml/min Estimated GFR () 71.9 Estimated GFR (Non- 62.1 BUN/Creatinine Ratio 10.2 Random Glucose 81 mg/dl Calcium Level 8.2 mg/dl Assessment & Plan 56 year old female with history of Gastroparesis, PVCs, Hypothyroidism presenting with nausea and vomiting.. PERSISTENT NAUSEA, Resolved HISTORY OF GASTROPARESIS - KUB ordered: no obstruction - Emend IV 1 dose given 04/21/17 - given Reglan, PRN Phenergan, Compazine Protonix 40mg IV daily IV fluids - patient improved significantly requesting for discharge - patient scheduled to ff up with GI on April 27, 2017 PCP on May 03, 2017 PVCs - continue Digoxin HYPOTHYROIDISM - continue Lthyroxine DVT prophylaxis SCDs hold Lovenox as patient may need Endoscopy Ambulate Dispo d/c home - patient scheduled to ff up with GI on April 27, 2017 PCP on May 03, 2017 Current Inpatient Medications: Current Inpatient Medications Medications (Trade) Dose Ordered Sig/Marisol Route Start Time Stop Time Status Last Admin Dose Admin Acetaminophen (Tylenol Tab) 650 mg Q4H PRN PO 04/21/17 14:30 05/21/17 14:29 04/22/17 18:10 650 MG Dextrose/Sodium Chloride 1,000 ml @ 75 mls/hr [id number] IV 04/21/17 14:30 05/21/17 14:29 04/23/17 10:21 75 MLS/HR Prochlorperazine Edisylate 5 mg/ Syringe 5 ml @ 5 mls/min Q6H PRN IV 04/21/17 15:15 05/21/17 15:14 Future Hold 04/22/17 15:46 5 MLS/MIN Enalaprilat 0.625 mg/Dextrose 25.5 ml @ 100 mls/hr Q6H PRN IV 04/21/17 15:15 05/21/17 15:14 04/21/17 16:01 100 MLS/HR Digoxin (Lanoxin Tab) 0.125 mg DAILY@1600 PO 04/21/17 16:00 05/21/17 15:59 04/22/17 16:43 0.125 MG Escitalopram Oxalate (Lexapro Tab) 10 mg DAILY PO 04/22/17 09:00 05/22/17 08:59 04/23/17 08:02 10 MG Levothyroxine Sodium (Synthroid Tab) 75 mcg DAILYBB PO 04/22/17 06:30 05/22/17 06:29 04/23/17 06:21 75 MCG Miscellaneous (Iv Fluids Completed) 1 ea PRN PRN N/A 04/21/17 16:15 04/21/18 16:14 04/23/17 10:21 1 EA Famotidine (Pepcid Tab) 20 mg BID PO 04/22/17 09:00 05/22/17 08:59 04/23/17 08:02 20 MG Clonazepam (Klonopin Tab) 0.5 mg TID PRN PO 04/22/17 11:15 05/22/17 11:14 Metoclopramide HCl (Reglan Tab) 10 mg ACHS PO 04/22/17 16:30 05/22/17 16:29 04/23/17 06:21 10 MG Al Hydroxide/Mg Hydroxide (Maalox Susp) 30 ml Q6H PRN PO 04/22/17 11:30 05/22/17 11:29 04/22/17 13:34 30 ML Sucralfate (Carafate Susp) 1 gm QID PRN PO 04/22/17 11:30 05/22/17 11:29 Lorazepam 0.5 mg/ Syringe 0.5 ml @ 0.5 mls/min Q12H PRN IV 04/22/17 11:30 05/22/17 11:29 04/22/17 17:01 0.5 MLS/MIN Pantoprazole Sodium 40 mg/ Syringe 10 ml @ 5 mls/min Q12H IV 04/22/17 21:00 05/22/17 10:59 04/23/17 08:02 5 MLS/MIN Promethazine HCl 12.5 mg/Sodium Chloride 50.5 ml @ 204 mls/hr Q6H PRN IV 04/22/17 18:30 05/22/17 18:29
--- NOTE | 2017-04-23 10:48 | Discharge Instructions ---
Discharge Instructions Date of Service Apr 23, 2017. Admission Reason for Admission: Nausea, Stomach And Back Pain, Gastropareses Discharge Discharge Diagnosis / Problem: NAUSEA, ABDOMINAL PAIN Discharge Goals Goal(s): Diagnostic testing, Therapeutic intervention Activity Recommendations Activity Limitations: as noted below (increase activity gradually as tolerated) Lifting Limitations: gradually increase as tolerated Exercise/Sports Limitations: gradually increase as tolerated . Instructions / Follow-Up Instructions / Follow-Up MAINTAIN SOFT DIET UNTIL FOLLOW UP WITH MORTGAGE ORIGINATOR. EAT SMALL, FREQUENT MEALS. ENSURE ADEQUATE DAILY FLUID INTAKE. PLEASE KEEP YOUR APPOINTMENT WITH MORTGAGE ORIGINATOR IN APRIL 27, 2017 AND WITH YOUR PRIMARY CARE PHYSICIAN ON MAY 03, 2017. Current Hospital Diet Patient's current hospital diet: Clear Liquid Diet Discharge Diet Recommended Diet: AHA Diet (Heart Healthy), Low Fiber Diet (SOFT) Pending Studies Studies pending at discharge: no Medical Emergencies . Who to Call and When: Medical Emergencies: If at any time you feel your situation is an emergency, please call 911 immediately. . Non-Emergent Contact Non-Emergency issues call your: Primary Care Provider, Corporate Bond Trader Call Non-Emergent contact if: you have a fever, your pain is not controlled, your pain is worsening, you have any medication questions . . "Provider Documentation" section prepared by Charlie Maher. . VTE Core Measure Inpt VTE Proph given/why not?: Enoxaparin (Lovenox), SCD's [place] Drug Monitoring Program Search Results: patient reviewed within database, no issues identified
--- NOTE | 2017-04-23 10:54 | Discharge Summary ---
Discharge Summary Date of Service Apr 23, 2017. Discharge Summary Admission Date: Apr 21, 2017 at 15:08 Discharge Date: Apr 23, 2017 Discharge Disposition: Home Principal Diagnosis: PERSISTENT NAUSEA, Resolved HISTORY OF GASTROPARESIS Secondary Diagnoses/Problems: Please refer to hospital course below. Procedures: KUB CLINICAL HISTORY: Vomiting and nausea. Evaluate for obstruction. COMPARISON STUDY: Abdominal series April 05, 2017. FINDINGS: Lower mediastinal contrast material is unchanged. A right Ifomsl-k-[id number] is partially imaged. No free air is identified on the upright projection. Pelvic calcifications are unchanged and likely reflect phleboliths. There is no evidence for a bowel obstruction. IMPRESSION: No free air or evidence for a bowel obstruction. Pending Studies/Follow-Up: Please refer to hospital course below. Medication Reconciliation Continued Medications: Aluminum Hydroxide-Mag Trisil (Gaviscon) 1 Chw Chw 2 TABS PO TID PRN for Dyspepsia Clonazepam (Klonopin) 0.5 Mg Tab 0.5 MG PO TID PRN for Anxiety/Agitation Dexlansoprazole (Dexilant) 30 Mg Cap 30 MG PO DAILY Digoxin (Digoxin) 0.125 Mg Tab 0.125 MG PO DAILY Escitalopram (Lexapro) 10 Mg Tab 10 MG PO DAILY, TAB Famotidine (Pepcid) 40 Mg Tab 20 MG PO BID, TAB Fosaprepitant Dimeglumine (Emend) 150 Mg Rosalia 5 ML IV MONTHLY Levothyroxine Sodium (Levothyroxine Sodium) 75 Mcg Tab 75 MCG PO DAILY Metoclopramide (Reglan) 10 Mg Tab 10 MG PO ACHS, TAB Ondansetron Hcl (Zofran) 4 Mg Tab 4 MG PO Q6H PRN for Nausea, TAB Multivit-Min W/Fe-Fa ( And Iron) 1 Tab Tab 1 TAB PO DAILY Prochlorperazine Maleate (Compazine) 10 Mg Tab 10 MG PO Q6H PRN for Nausea or Vomiting, TAB Admission Information HPI (per Admitting provider): 56 year old female with history of Gastroparesis, PVCs, Hypothyroidism presenting with nausea and vomiting.. Patient was discharged from [facility] 5 days ago for nausea/vomiting secondary to Gastroparesis. She was doing fine until last night when she started to have nausea/vomiting again, which persisted until today, prompting ER consult. Patient was given multiple antiemetics at the ER with no relief of symptoms. On exam, patient was still nauseated with some epigastric discomfort- typical of her Gastroparesis symptoms. Last BM this morning. No chest pain, dyspnea, palpitations, dizziness. No other symptoms. Physical Exam (per Admitting): General Appearance: WD/WN, + pertinent finding (nauseated) Head: normocephalic, atraumatic Eyes: normal inspection, PERRL, sclerae normal ENT: normal ENT inspection, hearing grossly normal, pharynx normal Neck: supple, no adenopathy, thyroid normal, no JVD Respiratory/Chest: chest non-tender, lungs clear, normal breath sounds, no respiratory distress, no accessory muscle use Cardiovascular: regular rate, rhythm, no edema, no JVD, no murmur Abdomen/GI: non tender, soft, + pertinent finding (hypoactive bowel sounds) Back: normal inspection, no CVA tenderness Neurologic/Psych: family readiness support assistant II-XII nml as tested, no motor/sensory deficits, alert , normal mood/affect, oriented x 3 Skin: normal color, warm/dry, no rash Lymphatic: no adenopathy Hospital Course 56 year old female with history of Gastroparesis, PVCs, Hypothyroidism presenting with nausea and vomiting.. PERSISTENT NAUSEA, Resolved HISTORY OF GASTROPARESIS - KUB ordered: no obstruction - Emend IV 1 dose given 04/21/17 - given Reglan, PRN Phenergan, Compazine Protonix 40mg IV daily IV fluids - patient improved significantly requesting for discharge advised soft diet - patient scheduled to ff up with GI on April 27, 2017 PCP on May 03, 2017 PVCs - continue Digoxin HYPOTHYROIDISM - continue Lthyroxine Dispo d/c home - patient scheduled to ff up with GI on April 27, 2017 PCP on May 03, 2017 Total time spent on discharge = 25 minutes This includes examination of the patient, discharge planning, medication reconciliation, and communication with other providers. Discharge Instructions Discharge Instructions Date of Service Apr 23, 2017. Admission Reason for Admission: Nausea, Stomach And Back Pain, Gastropareses Discharge Discharge Diagnosis / Problem: NAUSEA, ABDOMINAL PAIN Discharge Goals Goal(s): Diagnostic testing, Therapeutic intervention Activity Recommendations Activity Limitations: as noted below (increase activity gradually as tolerated) Lifting Limitations: gradually increase as tolerated Exercise/Sports Limitations: gradually increase as tolerated . Instructions / Follow-Up Instructions / Follow-Up MAINTAIN SOFT DIET UNTIL FOLLOW UP WITH DIRECTOR SOFTWARE DEVELOPMENT. EAT SMALL, FREQUENT MEALS. ENSURE ADEQUATE DAILY FLUID INTAKE. PLEASE KEEP YOUR APPOINTMENT WITH DIRECTOR SOFTWARE DEVELOPMENT IN APRIL 27, 2017 AND WITH YOUR PRIMARY CARE PHYSICIAN ON MAY 03, 2017. Current Hospital Diet Patient's current hospital diet: Clear Liquid Diet Discharge Diet Recommended Diet: AHA Diet (Heart Healthy), Low Fiber Diet (SOFT) Pending Studies Studies pending at discharge: no Medical Emergencies . Who to Call and When: Medical Emergencies: If at any time you feel your situation is an emergency, please call 911 immediately. . Non-Emergent Contact Non-Emergency issues call your: Primary Care Provider, Occupational Analyst Call Non-Emergent contact if: you have a fever, your pain is not controlled, your pain is worsening, you have any medication questions . . "Provider Documentation" section prepared by Charlie Maher. . VTE Core Measure Inpt VTE Proph given/why not?: Enoxaparin (Lovenox)SQ, SCD's [place] Drug Monitoring Program Search Results: patient reviewed within database, no issues identified
[2017-04-23 10:55] VITALS: BP 102/67; PULSE 52; TEMP 36.8; O2SAT 96
[2017-06-15] MEDS ORDERED: PROM1SUP19 PR (12:09)
[2017-06-18] MEDS ORDERED: OXYC-57 PO (10:33)
== END 2017-04-23 11:57 | disposition home or self-care (01) ==
LOC: C.EDB 08:57 → ENRESERV 13:48 → C.MS2W 15:08
PROVIDERS: ADMIT Internal Medicine; ATTEND Internal Medicine
DX: R11.2 Nausea with vomiting, unspecified (principal); R10.9 Unspecified abdominal pain; Z87.19 Personal history of other diseases of the digestive system; F41.9 Anxiety disorder, unspecified; J44.9 Chronic obstructive pulmonary disease, unspecified; F32.9 Major depressive disorder, single episode, unspecified; K21.9 Gastro-esophageal reflux disease without esophagitis; E78.5 Hyperlipidemia, unspecified; E03.9 Hypothyroidism, unspecified; Z86.14 Personal history of Methicillin resistant Staphylococcus aureus infection; Z90.710 Acquired absence of both cervix and uterus; Z90.89 Acquired absence of other organs; Z83.3 Family history of diabetes mellitus; Z83.2 Family history of diseases of the blood and blood-forming organs and certain disorders involving the immune mechanism; Z82.49 Family history of ischemic heart disease and other diseases of the circulatory system; Z84.1 Family history of disorders of kidney and ureter; F17.200 Nicotine dependence, unspecified, uncomplicated

== ENCOUNTER → 2017-06-12 | Outpatient (CLI) | payer OTHER ==
[~2017-06-12] MED LIST changes: +OXYC-57 PO; -PROC1TAB5 PO; +PROM1SUP19 PR
--- NOTE | 2017-06-12 09:11 | DIAGNOSTIC IMAGING REPORT ---
A-PORT CHECK CLINICAL HISTORY: Nonfunctioning A port. COMPARISON STUDY: A port check February 02, 2017. Fluoroscopy time: 0.1 minutes. FINDINGS: Note is made of a right-sided Myeion-x-Ylqq. The catheter tip is indeterminate in location but projects over the distal right internal jugular vein. Catheter is coiled inferior to the clavicle. Upon injection of contrast, note was made of contrast extravasation within the right infraclavicular region. This suggests catheter disruption/fracture. No venous contrast was identified. IMPRESSION: Contrast extravasation from right sided Htlijs-w-Jhpq consistent with catheter disruption/fracture. This catheter should not be utilized. Electronically signed by: Alex Moy M.D. 06/12/2017 9:10 AM Dictated Date/Time: 06/12/2017 9:07 AM
== END | disposition home or self-care (01) ==
LOC: C.RAD 07:57
PROVIDERS: ATTEND Surgery
DX: T82.41XA Breakdown (mechanical) of vascular dialysis catheter, initial encounter (principal); X58.XXXA Exposure to other specified factors, initial encounter

== ENCOUNTER → 2017-06-18 | Day surgery (SDC) | payer OTHER ==
[2017-06-15 11:42] VITALS: BMI 23.0
[~2017-06-18] VITALS: Ht 167.6 cm; Wt 64.1 kg
[~2017-06-18] MED LIST changes: +ATROPINE SULFATE 0.1 MG/ML 5ML SYR IV PRN; +BACITRACIN OINT 15 GM TUBE ONE; +BUPIVACAINE 0.5 % 5 MG/1 ML MPF 30ML VIAL ONE; +CLINDAMYCIN 600 MG/54 ML D5W 54 ML IV SCH; +CLINDAMYCIN 600 MG/54 ML D5W IV ONE; +EpHEDrine SULFATE INJ 50 MG/ML AMP IV PRN; +FENTANYL CITRATE INJ 50 MCG/1 ML 2 ML VIAL ONE; +LACTATED RINGER'S 1000ML 1,000 ML IV SCH; +LIDOCAINE HCL 1% 20 ML VIAL ONE; +LIDOCAINE HCL 2% 2 ML VIAL (20MG/ML) ONE; -METO-157 PO; +MIDAZOLAM HCL 1 MG/ML 2ML VIAL ONE; +MoRPHine SULFATE 2 MG/ML CARP IV PRN; +ONDANSETRON INJ 2 MG/ML 2 ML VIAL IV PRN; +ONDANSETRON INJ 2 MG/ML 2 ML VIAL ONE; +OXYCODONE/ACETAMINOPHEN 5-325 TAB PO PRN; +PROPOFOL IV EMULSION 10 MG/ML 20 ML VIAL IV ONE; +SODIUM CHLORIDE 0.9% 1000ML 1,000 ML IV SCH
[2017-06-18 06:47] VITALS: BP 110/82; PULSE 56; TEMP 36.8; O2SAT 99; Ht 167.6 cm; Wt 64.1 kg
[2017-06-18 07:44] LABS: BASO % 0.3 %; BASO ABS # 0.02 K/uL (0-0.2); HEMATOCRIT 38.3 % (37-47); IG% 0.1 %; LYMPH % 20.6 %; LYMPH ABS # 1.46 K/uL (1.2-3.4); MEAN CELL VOLUME 83.1 fL (80-100); MEAN CORPUSCULAR HEMOGLOBIN 25.6 pg (25-34); MEAN PLATELET VOLUME 9.6 fL (7.4-10.4); MONO % 5.8 %; NEUT % 70.2 %; PLATELET COUNT 253 K/uL (130-400); RED BLOOD COUNT 4.61 M/uL (4.2-5.4); WHITE BLOOD COUNT 7.08 K/uL (4.8-10.8)
[2017-06-18 07:45] LABS: COMPLETE YES; MEAN CORPUSCULAR HGB CONC 30.8 g/dl (32-36)
[2017-06-18 08:02] LABS: BUN/CREATININE RATIO 11.8 (10-20); CALCIUM 8.8 mg/dl (8.5-10.1); CREATININE 0.9 mg/dl (0.60-1.20); POTASSIUM 3.8 mmol/L (3.5-5.1)
--- NOTE | 2017-06-18 08:15 | History & Physical Bridge Note ---
H&P Re-Evaluation Bridge Note: I have examined the patient, reviewed the History & Physical and in the interval since the performance of the History & Physical I have noted the following changes of clinical significance: patient will have revise port- catheter,patient understood, I answered all questions.
--- NOTE | 2017-06-18 10:28 | [facility] Post Operative Brief Note ---
Immediate Operative Summary Operative Date Jun 18, 2017. Pre-Operative Diagnosis Dysfunction of Port Catheter Post-Operative Diagnosis Same as preoperative Procedure(s) Performed Revision Port Catheter, Right Subclavian Vein Surgeon Dr. Jazmín Jarrell Straight Cutter Machine Surgeon(s) None per surgeon Estimated Blood Loss 10ML Findings dysfunction of port catheter, Fluids (cc crystalloids) 650ml Specimens A.) Explanted hardware Drains none Anesthesia sedation + local Complication(s) None Disposition Recovery Room / PACU
--- NOTE | 2017-06-18 10:36 | Discharge Instructions ---
Discharge Instructions Date of Service Jun 18, 2017. Visit Reason for Visit: Dysfunction Of Port Catheter Discharge Discharge Diagnosis / Problem: S/P revise port catheter Discharge Goals Goal(s): Decrease discomfort, Improve function Activity Recommendations Activity Limitations: per Instructions/Follow-up section Lifting Limitations: no more than 25 pounds Exercise/Sports Limitations: rest today May Resume Sexual Activity: when tolerated Shower/Bathe: may shower/bathe in 3 days Driving or Machine Use: resume 3 days after discharge Anesthesia . Post Anesthesia Instructions: If you have had General Anesthesia or IV Sedation: * Do not drive today. * Resume driving when surgeon permits. * Do not make important decisions or sign legal documents today. * Call surgeon for: 1. Temperature elevations greater than 101 degrees F. 2. Uncontrollable pain. 3. Excessive bleeding. 4. Persistent nausea and vomiting. 5. Medication intolerance (nausea, vomiting or rash). * For nausea and vomiting use only clear liquids such as: tea, soda, bouillon until nausea subsides, then gradually increase diet as tolerated. * If you have any concerns or questions, call your surgeon's office. If physician is unavailable and it is an emergency, call 911 or go to the nearest emergency room. . Instructions / Follow-Up Instructions / Follow-Up keep the dressing on for 4 days, she can take a shower on 06/22/2017. no driving while taking pain medicine, follow up 1 week, . Diet Recommendations Recommended Home Diet: resume previous diet Procedures Procedures Performed: Revision Port Catheter, Right Subclavian Vein Pending Studies Studies pending at discharge: no Medical Emergencies . Who to Call and When: Medical Emergencies: If at any time you feel your situation is an emergency, please call 911 immediately. . Non-Emergent Contact Non-Emergency issues call your: Surgeon Call Non-Emergent contact if: you have a fever, temperature is above 100.5, your pain is not controlled, your pain is worsening, wound has increased drainage, wound has increased redness . . "Provider Documentation" section prepared by Jazmín Jarrell. . [place] Drug Monitoring Program Search Results: no issues identified
--- NOTE | 2017-06-18 10:54 | DIAGNOSTIC IMAGING REPORT ---
CHEST ONE VIEW PORTABLE CLINICAL HISTORY: 57 years-old Female presenting with status post insertion of port. TECHNIQUE: Portable upright AP view of the chest was obtained. COMPARISON: 04/15/2017. FINDINGS: Right subclavian Mediport remains now terminates appropriately in the lower SVC. Atherosclerosis of aortic arch. Cardiac silhouette normal in size. Density posterior to the heart may suggest a hiatal hernia, unchanged. Lungs and pleural spaces otherwise clear. Osseous structures normal. Postsurgical changes project over the epigastrium. Post cystectomy clips noted. IMPRESSION: 1. Right subclavian Mediport now terminates appropriately in the lower SVC. Electronically signed by: Jeovany Bach M.D. 06/18/2017 10:53 AM Dictated Date/Time: 06/18/2017 10:51 AM
--- NOTE | 2017-06-18 10:56 | Anesthesiology Progress Note ---
Anesthesia Post Op Note Date & Time Jun 18, 2017 at 10:56 Vital Signs Pain Intensity: 0 Vital Signs Past 12 Hours Date Time Temp Pulse Resp B/P (MAP) Pulse Ox O2 Delivery O2 Flow Rate FiO2 06/18/17 10:45 36.2 56 16 111/74 99 Room Air 06/18/17 10:30 54 14 114/75 99 Room Air 06/18/17 10:21 36.5 59 14 117/76 98 Oxymask 4 06/18/17 06:47 36.8 56 18 110/82 (91) 99 Room Air Notes Mental Status: alert / awake / arousable, participated in evaluation Pt Amnestic to Procedure: Yes Nausea / Vomiting: adequately controlled Pain: adequately controlled Airway Patency, RR, SpO2: stable & adequate BP & HR: stable & adequate Hydration State: stable & adequate Anesthetic Complications: no major complications apparent
[2017-06-18 11:15] VITALS: BP 105/73; PULSE 54; TEMP 36.6; O2SAT 96
[2017-06-18 11:45] VITALS: BP 105/73; PULSE 53; TEMP 36.6; O2SAT 98
--- NOTE | 2017-06-18 21:15 | OPERATIVE REPORT ---
DATE OF OPERATION: 06/18/2017 PREOPERATIVE DIAGNOSIS: Dysfunctional Axng-O-Bghxrint. POSTOPERATIVE DIAGNOSIS: Same. PROCEDURE: Revise Zguo-X-Tmcqurqc, right subclavian vein. SURGEON: Jazmín Jarrell MD ANESTHESIA: Conscious sedation plus local. ESTIMATED BLOOD LOSS: About 10 mL. IV FLUIDS: 650 mL. FINDINGS: Dysfunctional Rdou-M-Llnowlay. There was some leak between the catheter connected to the port. COMPLICATIONS: None. INDICATIONS FOR THE PROCEDURE: This is a 57-year-old female who had a Vkjo-D-Gsqehern insertion in the right internal jugular vein about 4 months ago, the patient had dysfunction the Kdul-N-Gaccchix and patient will be required to do a reverse Zjbm-F-Tzexvwvp. I did talk to the patient about the benefit, risk and alternate procedure. I indicated the risks may include but not limited such as bleeding, infection, dysfunction of the Gysn-W-Ltcktnre, may need more procedures, injury to the lung, blood clot injury to vessel, the patient understands. She signed informed consent and I answered all questions. DETAILS OF PROCEDURE: We brought the patient to the OR and put the patient in the Trendelenburg position. The patient received conscious sedation by Anesthesiology. Also, the patient received SCD on bilateral legs to prevent DVT and patient received 600 mg of clindamycin IV for prophylactic antibiotic. The patient's right side of chest and right neck was prepped and draped in routine sterile fashion. After a timeout, I injected local anesthesia in the right upper chest port site and on the right side of the neck. Then we made about a 2 cm incision just above the port, we mobilized the port and removed all suture. Then we found there was some leakage between the catheter connected to the port. Once we injected heparinized saline and also made a small incision on the right side of neck to mobilize the catheter. Then we removed the catheter and then we used ultrasound to try to locate the right internal jugular vein and the image was not clear. At this moment, I decided to use the right subclavian vein, so I used a 16 gauge needle to puncture the right subclavian vein on the more lateral of midline clavicle bone and easily to get blood return from right subclavian sharif Then I passed the wire through the needle, removed the needle and I passed the catheter through the wire, removed the wire again. At this moment, I tunneled the catheter from the right chest over the port incision to the sheath incision and then I passed the catheter through the sheath and removed the sheath. Then we sized the catheter. The catheter was connected to the port and then I used heparinized saline to puncture the port, easily blood returned and then injected 10 mL heparinized saline. Also during the procedure, we used X-ray fluorescence to comfirm the catheter located at the junction between the superior vena cava to right atrium. Then I used 2-0 Prolene to affix port on the right side chest wall at 3 points. Then, I used 2-0 Vicryl to close subcutaneous layer continuous running, closed skin by using 4-0 Vicryl on the right chest and for the neck incision I closed the subcutaneous layer by using 3-0 Vicryl continuous running, closed skin by using 4-0 Vicryl continuous running. I used the X-ray fluorescence again to look at the catheter tip located in junction between the superior vena cava to the right atrium. Then we used heparinized saline inject the port through the skin and easy blood returned and injection 10 ml heparinized normal saline to flush the port. Then we put the dressing on. The patient tolerated the procedure well. The patient was transferred to the recovery room in stable condition. All the instrument, needle and sponge count were correct x2 at the end of case. After the procedure, I did talk to the patient's family members and the patient about the OR finding and procedure we did and they understand. I also gave them postop care instructions. I attest to the content of the Intraoperative Record and any orders documented therein. Any exceptions are noted below. CANDELARIO
== END | disposition home or self-care (01) ==
LOC: C.ACU 06:22
PROVIDERS: ATTEND Surgery
DX: T82.534A Leakage of infusion catheter, initial encounter (principal); X58.XXXA Exposure to other specified factors, initial encounter; I34.0 Nonrheumatic mitral (valve) insufficiency; D51.0 Vitamin B12 deficiency anemia due to intrinsic factor deficiency; D50.9 Iron deficiency anemia, unspecified; K21.9 Gastro-esophageal reflux disease without esophagitis; E03.9 Hypothyroidism, unspecified; J44.9 Chronic obstructive pulmonary disease, unspecified; K44.9 Diaphragmatic hernia without obstruction or gangrene; K31.84 Gastroparesis; F32.9 Major depressive disorder, single episode, unspecified; F41.1 Generalized anxiety disorder; G63 Polyneuropathy in diseases classified elsewhere; M19.019 Primary osteoarthritis, unspecified shoulder; Z86.14 Personal history of Methicillin resistant Staphylococcus aureus infection; F17.200 Nicotine dependence, unspecified, uncomplicated; Z79.899 Other long term (current) drug therapy

== ENCOUNTER 2017-08-08 09:10 | Observation (INO) | payer OTHER ==
[~2017-08-08] VITALS: Ht 165.1 cm; Wt 65.9 kg
[~2017-08-08 09:10] MED LIST changes: -ATROPINE SULFATE 0.1 MG/ML 5ML SYR IV PRN; -BACITRACIN OINT 15 GM TUBE ONE; -BUPIVACAINE 0.5 % 5 MG/1 ML MPF 30ML VIAL ONE; -CLINDAMYCIN 600 MG/54 ML D5W 54 ML IV SCH; -CLINDAMYCIN 600 MG/54 ML D5W IV ONE; +ERGO500037 PO; -EpHEDrine SULFATE INJ 50 MG/ML AMP IV PRN; -FENTANYL CITRATE INJ 50 MCG/1 ML 2 ML VIAL ONE; -LACTATED RINGER'S 1000ML 1,000 ML IV SCH; -LIDOCAINE HCL 1% 20 ML VIAL ONE; -LIDOCAINE HCL 2% 2 ML VIAL (20MG/ML) ONE; -MIDAZOLAM HCL 1 MG/ML 2ML VIAL ONE; -MoRPHine SULFATE 2 MG/ML CARP IV PRN; -ONDANSETRON INJ 2 MG/ML 2 ML VIAL IV PRN; -ONDANSETRON INJ 2 MG/ML 2 ML VIAL ONE; -OXYC-57 PO; -OXYCODONE/ACETAMINOPHEN 5-325 TAB PO PRN; -PROPOFOL IV EMULSION 10 MG/ML 20 ML VIAL IV ONE; -SODIUM CHLORIDE 0.9% 1000ML 1,000 ML IV SCH; +VITAMIN B SQ
[2017-08-08] MEDS ORDERED: SODIUM CHLORIDE 0.9% 1000ML 1,000 ML IV STA (09:24)
[2017-08-08] MEDS ORDERED: ONDANSETRON INJ 2 MG/ML 2 ML VIAL IV STA (09:25)
[2017-08-08] MEDS ORDERED: DiphenhydrAMINE HCL 50 MG/ML VIAL IV STA (09:25)
[2017-08-08] MEDS ORDERED: METO-157 PO (09:28)
[2017-08-08] MEDS ORDERED: ALBINS/ INH (09:28)
[2017-08-08] MEDS ORDERED: ESCI1TAB10 PO (09:28)
[2017-08-08] MEDS: MoRPHine SULFATE 4 MG/ML 1 ML CARP\\VIAL IV PRN ×2 (09:48→10:52)
--- NOTE | 2017-08-08 09:48 | EMERGENCY ROOM VISIT NOTE ---
History Report prepared by [place]: Anna Nunez Under the Supervision of: Sekou BurlesonO. First contact with patient: 09:19 Chief Complaint: GI ASSESSMENT Stated Complaint: GI ASSESSMENT Nursing Triage Summary: pt reports " I am having a gastroparesis attack I get these" started with dry heaves 1 day ago History of Present Illness The patient is a 57 year old female who presents to the Emergency Room for a GI assessment. The patient has a history of gastroparesis. She states that she gets intermittent "gastroparesis attacks" throughout the year where her symptoms become significantly worse. She cannot remember her last attack. Yesterday afternoon her symptoms started. She states that they improved over time, but then worsened again throughout the night. She is currently complaining of nausea, back pain, diffuse abdominal pain, diarrhea, and weakness in her legs. She rates her pain as a 6/10 in severity. The patient denies fevers, chills, melena, and hematochezia. She has not had anything to eat or drink since yesterday. She denies any history of bowel obstructions. The patient gets injections for her gastroparesis every month. She just had one yesterday. Source of History: patient Onset: yesterday Position: abdomen Symptom Intensity: 6/10 Timing: worsening Associated Symptoms: + nausea, + back pain, + diarrhea, + weakness, No fevers, No chills, No melena, No hematochezia Review of Systems See HPI for pertinent positives & negatives. A total of 10 systems reviewed and were otherwise negative. Past Medical & Surgical Medical Problems: (1) Abdominal pain (2) Anemia, iron deficiency (3) Anemia, iron deficiency (4) Anxiety (5) Anxiety State Nos (6) Asthma (7) Chronic Obstructive Asthma, Nos (8) COPD (chronic obstructive pulmonary disease) (9) Depression (10) Diarrhea (11) Diverticulosis (12) Esophagitis Nos (13) Frequent PVCs (14) Gastroparesis (15) GERD (gastroesophageal reflux disease) (16) Hyperlipidemia Nec/Nos (17) Hypothyroidism (18) Hypothyroidism Nos (19) Iron Defic Anemia Nos (20) Mitral regurgitation (21) MRSA bacteremia (22) Nausea (23) Neuropathy (24) Pemphigus vulgaris (25) Pernicious anemia (26) Pernicious Anemia (27) Premature atrial contractions (28) Tobacco abuse Surgical Problems: (1) H/O colonoscopy (2) H/O esophagogastroduodenoscopy (3) H/O oophorectomy (4) H/O: hysterectomy (5) History of bladder surgery (6) S/P hysterectomy (7) S/P laparoscopic sleeve gastrectomy (8) S/P partial gastrectomy (9) S/P repair of paraesophageal hernia (10) S/P repair of paraesophageal hernia (11) S/P tonsillectomy and adenoidectomy (12) S/P tonsillectomy and adenoidectomy Family History Diabetes mellitus MOTHER SISTER FH: aneurysm FH: cancer FH: heart disease FATHER MOTHER Hypertension BROTHER Kidney disease Social History Smoking Status: Current Every Day Smoker Alcohol Use: none Drug Use: none Marital Status: single Housing Status: lives alone Occupation Status: disabled Current/Historical Medications Scheduled Dexlansoprazole (Dexilant), 30 MG PO QAM Digoxin (Digoxin), 0.125 MG PO QPM Ergocalciferol (Vitamin D 02329 Unit), 1 CAP PO EVERY OTHER WEEK Escitalopram Oxalate (Lexapro), 20 MG PO HS Famotidine (Pepcid), 40 MG PO BID Fosaprepitant Dimeglumine (Emend), 150 MG IV MONTHLY Levothyroxine Sodium (Levothyroxine Sodium), 75 MCG PO QAM Metoclopramide (Reglan), 10 MG PO TIDM Multivit-Min W/Fe-Fa ( And Iron), 1 TAB PO QPM [Vitamin B Injection], 1 MG SQ MONTHLY Scheduled PRN Albuterol Sulf (Proventil 0.083% 2.5MG/3ML), 3 ML INH Q4H PRN for Wheezing Aluminum Hydroxide-Mag Trisil (Gaviscon), 2 TABS PO TID PRN for Dyspepsia Clonazepam (Klonopin), 0.5 MG PO TID PRN for Anxiety/Agitation Ondansetron Hcl (Zofran), 4 MG PO Q6H PRN for Nausea Promethazine (Phenergan Suppository), 25 MG SC Q6H PRN for Nausea Allergies Coded Allergies: Amoxicillin (Verified Adverse Reaction, Intermediate, yeast infection, ) NSAIDs (Verified Adverse Reaction, Mild, indegestion, 08/08/17) Rofecoxib (Verified Adverse Reaction, Mild, indigestion, 08/08/17) Scopolamine (Verified Adverse Reaction, Mild, rash from patch, 08/08/17) Physical Exam Vital Signs Date Time Temp Pulse Resp B/P (MAP) Pulse Ox O2 Delivery O2 Flow Rate FiO2 08/08/17 12:34 147/103 08/08/17 12:10 60 15 100 08/08/17 11:40 69 15 100 08/08/17 11:30 146/113 08/08/17 11:30 100 2.0 08/08/17 11:10 69 17 99 08/08/17 11:00 128/97 08/08/17 10:56 140/100 08/08/17 10:53 73 12 140/100 94 Room Air 08/08/17 10:52 140/100 08/08/17 10:40 64 20 96 08/08/17 10:30 155/117 08/08/17 10:10 67 19 98 08/08/17 10:00 133/104 08/08/17 09:56 66 08/08/17 09:53 156/102 08/08/17 09:13 36.8 58 20 128/88 98 Room Air Physical Exam GENERAL: Patient is awake, alert, and in no acute distress. Patient is resting comfortably and showing no signs of anxiety EYES: The conjunctivae are clear. The pupils are round and reactive. EARS, NOSE, MOUTH AND THROAT: The nose is without any evidence of any deformity. Mucous membranes are moist tongue is midline NECK: The neck is nontender and supple. RESPIRATORY: Normal respiratory effort is noted there is no evidence of wheezing rhonchi or rales CARDIOVASCULAR: Regular rate and rhythm noted there no murmurs rubs or gallops normal S1 normal S2 GASTROINTESTINAL: The abdomen is soft and mildly tender in upper abdomen no guarding or rigidity noted. . Bowel sounds are present in all quadrants. MUSCULOSKELETAL/EXTREMITIES: There is no evidence of gross deformity full range of motion is noted in the hips and shoulders SKIN: There is no obvious evidence of any rash. There are no petechiae, pallor or cyanosis noted. NEUROLOGIC: Patient is awake alert and oriented x3 strength is symmetric patellar reflexes are 2+ bilaterally Medical Decision & Procedures Laboratory Results 08/08/17 09:38 Red Blood Count 4.77, Mean Corpuscular Volume 81.3, Mean Corpuscular Hemoglobin 26.4, Mean Corpuscular Hemoglobin Concent 32.5, Mean Platelet Volume 9.5, Neutrophils (%) (Auto) 73.4, Lymphocytes (%) (Auto) 19.3, Monocytes (%) (Auto) 6.7, Eosinophils (%) (Auto) 0.4, Basophils (%) (Auto) 0.2, Neutrophils # (Auto) 3.49, Lymphocytes # (Auto) 0.92, Monocytes # (Auto) 0.32, Eosinophils # (Auto) 0.02, Basophils # (Auto) 0.01 08/08/17 09:38 Test 08/08/17 09:38 08/08/17 12:10 White Blood Count 4.76 K/uL (4.8-10.8) Red Blood Count 4.77 M/uL (4.2-5.4) Hemoglobin 12.6 g/dL (12.0-16.0) Hematocrit 38.8 % (37-47) Mean Corpuscular Volume 81.3 fL (80-100) Mean Corpuscular Hemoglobin 26.4 pg (25-34) Mean Corpuscular Hemoglobin Concent 32.5 g/dl (32-36) Platelet Count 260 K/uL (130-400) Mean Platelet Volume 9.5 fL (7.4-10.4) Neutrophils (%) (Auto) 73.4 % Lymphocytes (%) (Auto) 19.3 % Monocytes (%) (Auto) 6.7 % Eosinophils (%) (Auto) 0.4 % Basophils (%) (Auto) 0.2 % Neutrophils # (Auto) 3.49 K/uL (1.4-6.5) Lymphocytes # (Auto) 0.92 K/uL (1.2-3.4) Monocytes # (Auto) 0.32 K/uL (0.11-0.59) Eosinophils # (Auto) 0.02 K/uL (0-0.5) Basophils # (Auto) 0.01 K/uL (0-0.2) RDW Standard Deviation 48.0 fL (36.4-46.3) RDW Coefficient of Variation 16.1 % (11.5-14.5) Immature Granulocyte % (Auto) 0.0 % Immature Granulocyte # (Auto) 0.00 K/uL (0.00-0.02) Anion Gap 9.0 mmol/L (3-11) Est Creatinine Clear Calc Drug Dose 55.1 ml/min Estimated GFR () 72.3 Estimated GFR (Non- 62.4 BUN/Creatinine Ratio 11.2 (10-20) Calcium Level 8.9 mg/dl (8.5-10.1) Total Bilirubin 0.4 mg/dl (0.2-1) Direct Bilirubin 0.1 mg/dl (0-0.2) Aspartate Amino Transf (AST/SGOT) 13 U/L (15-37) Alanine Aminotransferase (ALT/SGPT) 16 U/L (12-78) Alkaline Phosphatase 111 U/L (45-117) Total Protein 7.6 gm/dl (6.4-8.2) Albumin 3.8 gm/dl (3.4-5.0) Amylase Level 46 U/L (25-115) Lipase 119 U/L (73-393) Thyroid Stimulating Hormone (TSH) 2.890 uIu/ml (0.300-4.500) Digoxin Level 0.1 ng/ml (0.8-2.0) Laboratory results per my review. Medications Administered Medications (Trade) Dose Ordered Sig/Marisol Route Start Time Stop Time Status Last Admin Dose Admin Sodium Chloride 1,000 ml @ 999 mls/hr Q1H1M STAT IV 08/08/17 09:24 08/08/17 10:24 DC 08/08/17 09:48 999 MLS/HR Morphine Sulfate (MoRPHine SULFATE INJ) 4 mg Q15M PRN IV 08/08/17 09:30 08/08/17 12:17 DC 08/08/17 10:52 4 MG Diphenhydramine HCl (Benadryl Inj) 25 mg NOW STAT IV 08/08/17 09:25 08/08/17 09:27 DC 08/08/17 09:48 25 MG Ondansetron HCl (Zofran Inj) 4 mg NOW STAT IV 08/08/17 09:25 08/08/17 09:27 DC 08/08/17 09:48 4 MG Promethazine HCl 12.5 mg/Sodium Chloride 50.5 ml @ 204 mls/hr NOW STAT IV 08/08/17 10:23 08/08/17 10:37 DC 08/08/17 10:52 204 MLS/HR Metoclopramide HCl (Reglan Inj) 10 mg NOW STAT IV 08/08/17 12:15 08/08/17 12:19 DC 08/08/17 12:31 10 MG ED Course 0919: The patient was evaluated in room A9B. A complete history and physical examination were performed. 0924: NSS 1000 ml @ 999 mls/hr IV 0925: Zofran 4 mg IV, Benadryl 25 mg IV 0930: Morphine sulfate 4 mg IV - PRN 1023: Promethazine HCl 12.5 mg/Sodium Chloride 50.5 ml @ 204 mls/hr IV 1141: I reassessed the patient at this time. She is doing well but still experiencing symptoms. I discussed the results and treatment plan with the patient. I answered all pertaining questions that she had. She expressed understanding and verbalized agreement. 1155: I spoke with Dr. Mukherjee. We discussed the patients case. The patient will be evaluated by the [facility] for further management. Medical Decision Differential diagnosis: Etiologies such as appendicitis, diverticulitis, PUD, biliary pathology, UTI, pancreatitis, obstruction, mesenteric ischemia, aortic pathology, infections, inflammatory bowel disease, renal colic, as well as others were entertained. Nursing notes reviewed. Patient's previous electronic medical records reviewed. The patient is a 57-year-old female who presented to the emergency department for an evaluation of nausea and vomiting. The patient has a history of gastroparesis. She was treated with IV fluids IV pain medicine IV antiemetics. On subsequent reevaluation her symptoms were not significantly improved. For this reason I discussed her case with the on-call [facility] hospitalist. They' ve agreed to evaluate the patient in the emergency department for further management and disposition. Medication Reconcilliation Current Medication List: was personally reviewed by me Blood Pressure Screening Patient's blood pressure: Elevated blood pressure Blood pressure disposition: Elevated BP felt to be situational Consults Time Called: 1145 Consulting Physician: Dr. Mukherjee Returned Call: [address] Mukherjee. We discussed the patients case. The patient will be evaluated by the [facility] for further management. Impression Primary Impression: Gastroparesis Additional Impressions: Abdominal pain Nausea & vomiting Scribe Attestation The scribe's documentation has been prepared under my direction and personally reviewed by me in its entirety. I confirm that the note above accurately reflects all work, treatment, procedures, and medical decision making performed by me. Departure Information Dispostion Being Evaluated By Hospitalist Jaleel Solomon M.D. (PCP) Patient Instructions My [facility] Problem Qualifiers Additional Impressions: Abdominal pain Abdominal location: generalized Qualified Codes: R10.84 - Generalized abdominal pain Nausea & vomiting Vomiting type: unspecified Vomiting Intractability: intractable Qualified Codes: R11.2 - Nausea with vomiting, unspecified
[2017-08-08 09:59] LABS: BASO % 0.2 %; BASO ABS # 0.01 K/uL (0-0.2); COMPLETE YES; EOS % 0.4 %; HEMATOCRIT 38.8 % (37-47); LYMPH % 19.3 %; LYMPH ABS # 0.92 K/uL (1.2-3.4); MEAN CELL VOLUME 81.3 fL (80-100); MEAN CORPUSCULAR HEMOGLOBIN 26.4 pg (25-34); MEAN CORPUSCULAR HGB CONC 32.5 g/dl (32-36); MEAN PLATELET VOLUME 9.5 fL (7.4-10.4); MONO % 6.7 %; NEUT % 73.4 %; PLATELET COUNT 260 K/uL (130-400); RED BLOOD COUNT 4.77 M/uL (4.2-5.4); WHITE BLOOD COUNT 4.76 K/uL (4.8-10.8)
[2017-08-08 10:19] LABS: BUN/CREATININE RATIO 11.2 (10-20); CALCIUM 8.9 mg/dl (8.5-10.1); CREATININE 0.99 mg/dl (0.60-1.20); POTASSIUM 3.9 mmol/L (3.5-5.1)
[2017-08-08] MEDS ORDERED: PROMETHAZINE HCL INJ 12.5 MG in SODIUM CHLORIDE 0.9% 50ML 50 ML IV STA (10:23)
[2017-08-08] MEDS ORDERED: METOCLOPRAMIDE HCL INJ 5 MG/ML 2 ML VIAL IV STA ×2 (12:15→16:44)
[2017-08-08] MEDS ORDERED: ALBUTEROL 0.083% NEBU SOLN 3 ML VIAL INH PRN (13:00)
[2017-08-08] MEDS ORDERED: CLONAZEPAM 0.5 MG TAB PO PRN (13:00)
[2017-08-08] MEDS ORDERED: PROMETHAZINE HCL INJ 12.5 MG in SODIUM CHLORIDE 0.9% 50ML 50 ML IV PRN (14:00)
[2017-08-08] MEDS ORDERED: IV FLUIDS COMPLETED PRN (14:00)
[2017-08-08] MEDS ORDERED: ONDANSETRON INJ 6 MG in DEXTROSE 5% 50ML 50 ML IV PRN (14:00)
[2017-08-08 14:15] VITALS: BP 155/99; PULSE 62; TEMP 36.9; O2SAT 96; Ht 165.1 cm; Wt 65.9 kg
--- NOTE | 2017-08-08 15:28 | DIAGNOSTIC IMAGING REPORT ---
ABDOMEN COMPLETE (US) CLINICAL HISTORY: 57 years-old Female presenting with abdominal discomfort. TECHNIQUE: Real-time grayscale and limited color Doppler ultrasound imaging of the abdomen was performed. COMPARISON: 01/21/[address] from 11/02/2016. FINDINGS: Pancreas: Prominent pancreatic duct measuring 4 mm at the level of the pancreatic head. Grossly normal appearing parenchyma. Liver: Normal echogenicity and echotexture. The liver measures 13 cm in maximal sagittal dimension. No sonographic evidence of hepatic mass. Main portal vein patent with normal directional flow. Biliary: Significant intrahepatic and extrahepatic biliary ductal dilatation. Common bile duct measures up to 12 mm in diameter at the level of the pancreatic head. Gallbladder: Gallbladder: Surgically absent. Spleen: Normal in echogenicity and size, measuring 10 cm in length. Kidneys: Normal in size and echogenicity. Right kidney measures 12.1 cm, and left kidney measures 10.7 cm. No hydronephrosis. Vasculature: Visualized portions of the IVC and abdominal aorta normal. Ascites: None. IMPRESSION: Pancreatic and biliary ductal dilatation. This raises concern for pancreatic head mass, however, the appearance is not dissimilar to prior noncontrast CT from 11/02/2016. Given the prior exam was noncontrast, further evaluation with contrast enhanced dedicated pancreas CT could be considered. Electronically signed by: Jeovany Bach M.D. 08/08/2017 3:26 PM Dictated Date/Time: 08/08/2017 3:20 PM
[2017-08-08 15:29] LABS: URINE APPEARANCE CLEAR (CLEAR); URINE BILIRUBIN NEG (NEG); URINE COLOR YELLOW; URINE NITRITE NEG (NEG); UROBILINOGEN NEG (NEG)
[2017-08-08 15:34] LABS: MANUAL MICROSCOPIC REQUIRED? NO; REVIEW REQ? NO
--- NOTE | 2017-08-08 15:39 | History and Physical ---
History & Physical Date & Time of Service: Aug 08, 2017 at 15:26 Chief Complaint: Abdominal Pain, Nausea Primary Care Physician: Jaleel Coppola M.D. History of Present Illness Source: patient This is a 57 year old patient without history of diabetes who has had multiple hospital visits for abdominal symptoms such as nausea. Patient presents to the ED after 24 hours of abdominal symptoms of nausea without vomiting, and diarrhea. Patient's surgical history for hysterectomy and hernia repair and also has port of right chest to receive IV medication of fosaprepitant Dimeglumine (EMEND) 150 mg Every Month for recurrent nausea symptoms with Reglan TID at home and rectal suppository promethazine q6 hours as needed. Patient also on GERD medication of famotidine 40 mg BID and Dexilant 30 mg daily. Patient also follows with cardiology Dr. Dallas and takes Digoxin for arrhythmia history but no anticoagulation of other cardiovascular medications. Patient also on Levothyroxine for history of hypothyroidism. Past Medical/Surgical History Medical Problems: (1) Anemia, iron deficiency Status: Chronic (2) Anxiety Status: Chronic (3) Anxiety State Nos Status: Chronic (4) Asthma Status: Chronic (5) Chronic Obstructive Asthma, Nos Status: Chronic (6) COPD (chronic obstructive pulmonary disease) Status: Chronic (7) Depression Status: Chronic (8) Diverticulosis Status: Chronic (9) Esophagitis Nos Status: Chronic (10) Frequent PVCs Status: Chronic (11) Gastroparesis Status: Chronic (12) GERD (gastroesophageal reflux disease) Status: Chronic (13) Hyperlipidemia Nec/Nos Status: Chronic (14) Hypothyroidism Status: Chronic (15) Hypothyroidism Nos Status: Chronic (16) Iron Defic Anemia Nos Status: Chronic (17) Mitral regurgitation Permanent Comment: moderate per echo 09/21/15 Status: Chronic (18) MRSA bacteremia Status: Resolved (19) Neuropathy Status: Chronic (20) Pemphigus vulgaris Status: Chronic (21) Pernicious anemia Status: Chronic (22) Pernicious Anemia Status: Chronic (23) Premature atrial contractions Status: Chronic (24) Tobacco abuse Status: Chronic Surgical Problems: (1) H/O colonoscopy Permanent Comment: 08/14/2013- Moderate diverticulosis in the sigmoid colon, in the descending colon and in the ascending colon. Internal hemorrhoids. Normal mucosa in the entire examined colon. Biopsied. Status: Chronic (2) H/O esophagogastroduodenoscopy Permanent Comment: 04/22/2015- - Stretta treatment to distal esophagus / GE junction and cardia.Three surgical logan were found in the esophagus at the GE junction and removed. Surgical suture was also found at the GE junction without evidence of dehiscence. Grade B GERD / erosive esophagitis. Sleeve gastrectomy with a large-sized pouch, intact staple line, post-operative mucosal scar, and evidence f pyloroplasty. Small gastric polyp, likely hyperplastic vs fundic gland polyp. Small hiatus hernia. Status: Chronic (3) H/O oophorectomy Permanent Comment: left ovary Status: Chronic (4) H/O: hysterectomy Status: Resolved (5) History of bladder surgery Status: Chronic (6) S/P hysterectomy Status: Chronic (7) S/P laparoscopic sleeve gastrectomy Status: Chronic (8) S/P partial gastrectomy Status: Chronic (9) S/P repair of paraesophageal hernia Status: Chronic (10) S/P repair of paraesophageal hernia Permanent Comment: resulted in volvulus, required abdominal exploration Status: Chronic (11) S/P tonsillectomy and adenoidectomy Status: Resolved (12) S/P tonsillectomy and adenoidectomy Status: Chronic Family History Diabetes mellitus MOTHER SISTER FH: aneurysm FH: cancer FH: heart disease FATHER MOTHER Hypertension BROTHER Kidney disease Social History Smoking Status: Current Every Day Smoker Drug Use: none Marital Status: single Housing status: lives with family Occupational Status: disabled Immunizations History of Influenza Vaccine: Yes History of Tetanus Vaccine?: Unknown History of Pneumococcal: Unknown History of Hepatitis B Vaccine: Unknown Multi-Drug Resistant Organisms History of MDRO: Yes Type of MDRO: MRSA Allergies Coded Allergies: Amoxicillin (Verified Adverse Reaction, Intermediate, yeast infection, ) NSAIDs (Verified Adverse Reaction, Mild, indegestion, 08/08/17) Rofecoxib (Verified Adverse Reaction, Mild, indigestion, 08/08/17) Scopolamine (Verified Adverse Reaction, Mild, rash from patch, 08/08/17) Home Medications Scheduled Dexlansoprazole (Dexilant), 30 MG PO QAM Digoxin (Digoxin), 0.125 MG PO QPM Ergocalciferol (Vitamin D 09492 Unit), 1 CAP PO EVERY OTHER WEEK Escitalopram Oxalate (Lexapro), 20 MG PO HS Famotidine (Pepcid), 40 MG PO BID Fosaprepitant Dimeglumine (Emend), 150 MG IV MONTHLY Levothyroxine Sodium (Levothyroxine Sodium), 75 MCG PO QAM Metoclopramide (Reglan), 10 MG PO TIDM Multivit-Min W/Fe-Fa ( And Iron), 1 TAB PO QPM [Vitamin B Injection], 1 MG SQ MONTHLY Scheduled PRN Albuterol Sulf (Proventil 0.083% 2.5MG/3ML), 3 ML INH Q4H PRN for Wheezing Aluminum Hydroxide-Mag Trisil (Gaviscon), 2 TABS PO TID PRN for Dyspepsia Clonazepam (Klonopin), 0.5 MG PO TID PRN for Anxiety/Agitation Ondansetron Hcl (Zofran), 4 MG PO Q6H PRN for Nausea Promethazine (Phenergan Suppository), 25 MG ID Q6H PRN for Nausea Review of Systems Constitutional: No fever Eyes: No worsening of vision ENT: No hearing loss Respiratory: No cough, No shortness of breath, No dyspnea on exertion, No dyspnea at rest Cardiovascular: No chest pain Abdomen: + nausea, + diarrhea, No pain, No vomiting Musculoskeletal: No joint pain, No muscle pain, No swelling, No calf pain Genitourinary - Female: No dysuria Neurologic: No balance problems Psychiatric: No substance abuse Endocrine: No fatigue Hematologic / Lymphatic: No abnormal bleeding/bruising Integumentary: No rash, No itch Physical Exam Vital Signs Date Time Temp Pulse Resp B/P (MAP) Pulse Ox O2 Delivery O2 Flow Rate FiO2 08/08/17 14:15 36.9 62 18 155/99 96 Nasal Cannula 2.0 08/08/17 13:05 36.8 64 17 153/101 100 08/08/17 13:00 153/101 08/08/17 12:40 64 08/08/17 12:39 62 17 100 08/08/17 12:34 147/103 08/08/17 12:10 60 15 100 08/08/17 11:40 69 15 100 08/08/17 11:30 146/113 08/08/17 11:30 100 2.0 08/08/17 11:10 69 17 99 08/08/17 11:00 128/97 08/08/17 10:56 140/100 08/08/17 10:53 73 12 140/100 94 Room Air 08/08/17 10:52 140/100 08/08/17 10:40 64 20 96 08/08/17 10:30 155/117 08/08/17 10:10 67 19 98 08/08/17 10:00 133/104 08/08/17 09:56 66 08/08/17 09:53 156/102 08/08/17 09:13 36.8 58 20 128/88 98 Room Air General Appearance: WD/WN, no apparent distress Head: normocephalic, atraumatic Eyes: normal inspection, EOMI, sclerae normal ENT: normal ENT inspection, hearing grossly normal, TMs normal, pharynx normal Neck: no JVD, trachea midline Respiratory/Chest: chest non-tender, lungs clear, normal breath sounds, no respiratory distress, no accessory muscle use Cardiovascular: regular rate, rhythm, no edema, no JVD Abdomen/GI: normal bowel sounds, non tender, soft Back: no CVA tenderness, no muscle spasm, normal range of motion Extremities/Musculoskelatal: normal inspection, no calf tenderness, no pedal edema, normal range of motion Neurologic/Psych: no motor/sensory deficits, alert, normal mood/affect, oriented x 3 Skin: normal color, warm/dry, no rash Diagnostics Laboratory Results Results Past 24 Hours Test 08/08/17 09:38 08/08/17 12:10 08/08/17 14:30 Range/Units White Blood Count 4.76 4.8-10.8 K/uL Red Blood Count 4.77 4.2-5.4 M/uL Hemoglobin 12.6 12.0-16.0 g/dL Hematocrit 38.8 37-47 % Mean Corpuscular Volume 81.3 80-100 fL Mean Corpuscular Hemoglobin 26.4 25-34 pg Mean Corpuscular Hemoglobin Concent 32.5 32-36 g/dl Platelet Count 260 130-400 K/uL Mean Platelet Volume 9.5 7.4-10.4 fL Neutrophils (%) (Auto) 73.4 % Lymphocytes (%) (Auto) 19.3 % Monocytes (%) (Auto) 6.7 % Eosinophils (%) (Auto) 0.4 % Basophils (%) (Auto) 0.2 % Neutrophils # (Auto) 3.49 1.4-6.5 K/uL Lymphocytes # (Auto) 0.92 1.2-3.4 K/uL Monocytes # (Auto) 0.32 0.11-0.59 K/uL Eosinophils # (Auto) 0.02 0-0.5 K/uL Basophils # (Auto) 0.01 0-0.2 K/uL RDW Standard Deviation 48.0 36.4-46.3 fL RDW Coefficient of Variation 16.1 11.5-14.5 % Immature Granulocyte % (Auto) 0.0 % Immature Granulocyte # (Auto) 0.00 0.00-0.02 K/uL Sodium Level 139 136-145 mmol/L Potassium Level 3.9 3.5-5.1 mmol/L Chloride Level 108 98-107 mmol/L Carbon Dioxide Level 22 21-32 mmol/L Anion Gap 9.0 3-11 mmol/L Blood Urea Nitrogen 11 7-18 mg/dl Creatinine 0.99 0.60-1.20 mg/dl Est Creatinine Clear Calc Drug Dose 55.1 ml/min Estimated GFR () 72.3 Estimated GFR (Non- 62.4 BUN/Creatinine Ratio 11.2 10-20 Random Glucose 131 70-99 mg/dl Calcium Level 8.9 8.5-10.1 mg/dl Total Bilirubin 0.4 0.2-1 mg/dl Direct Bilirubin 0.1 0-0.2 mg/dl Aspartate Amino Transf (AST/SGOT) 13 15-37 U/L Alanine Aminotransferase (ALT/SGPT) 16 12-78 U/L Alkaline Phosphatase 111 45-117 U/L Total Protein 7.6 6.4-8.2 gm/dl Albumin 3.8 3.4-5.0 gm/dl Lipase 118 73-393 U/L Thyroid Stimulating Hormone (TSH) 2.890 0.300-4.500 uIu/ml Digoxin Level 0.1 0.8-2.0 ng/ml Diagnostic Radiology Abdominal Ultrasound Pancreas: Prominent pancreatic duct measuring 4 mm at the level of the pancreatic head. Grossly normal appearing parenchyma. Liver: Normal echogenicity and echotexture. The liver measures 13 cm in maximal sagittal dimension. No sonographic evidence of hepatic mass. Main portal vein patent with normal directional flow. Biliary: Significant intrahepatic and extrahepatic biliary ductal dilatation. Common bile duct measures up to 12 mm in diameter at the level of the pancreatic head. Gallbladder: Gallbladder: Surgically absent. Spleen: Normal in echogenicity and size, measuring 10 cm in length. Kidneys: Normal in size and echogenicity. Right kidney measures 12.1 cm, and left kidney measures 10.7 cm. No hydronephrosis. Vasculature: Visualized portions of the IVC and abdominal aorta normal. Ascites: None. IMPRESSION: Pancreatic and biliary ductal dilatation. This raises concern for pancreatic head mass, however, the appearance is not dissimilar to prior noncontrast CT from 11/02/2016. Given the prior exam was noncontrast, further evaluation with contrast enhanced dedicated pancreas CT could be considered. Impression Assessment and Plan This is a 57 year old patient without history of diabetes who has had multiple hospital visits for abdominal symptoms such as nausea. Patient presents to the ED after 24 hours of abdominal symptoms of nausea without vomiting, and diarrhea. Patient's surgical history for hysterectomy and hernia repair and also has port of right chest to receive IV medication of fosaprepitant Dimeglumine (EMEND) 150 mg Every Month for recurrent nausea symptoms with Reglan TID at home and rectal suppository promethazine q6 hours as needed. Patient also on GERD medication of famotidine 40 mg BID and Dexilant 30 mg daily. Patient also follows with cardiology Dr. Dallas and takes Digoxin for arrhythmia history but no anticoagulation of other cardiovascular medications. Patient also on Levothyroxine for history of hypothyroidism. "Abdominal Ultrasound Pancreas: Prominent pancreatic duct measuring 4 mm at the level of the pancreatic head. Grossly normal appearing parenchyma. Liver: Normal echogenicity and echotexture. The liver measures 13 cm in maximal sagittal dimension. No sonographic evidence of hepatic mass. Main portal vein patent with normal directional flow. Biliary: Significant intrahepatic and extrahepatic biliary ductal dilatation. Common bile duct measures up to 12 mm in diameter at the level of the pancreatic head. Gallbladder: Gallbladder: Surgically absent. Spleen: Normal in echogenicity and size, measuring 10 cm in length. Kidneys: Normal in size and echogenicity. Right kidney measures 12.1 cm, and left kidney measures 10.7 cm. No hydronephrosis. Vasculature: Visualized portions of the IVC and abdominal aorta normal. Ascites: None. IMPRESSION: Pancreatic and biliary ductal dilatation. This raises concern for pancreatic head mass, however, the appearance is not dissimilar to prior noncontrast CT from 11/02/2016. Given the prior exam was noncontrast, further evaluation with contrast enhanced dedicated pancreas CT could be considered." However as per GI consultation: abd u/s showed pancreas and biliary ductal dilation but stable compared to CT on 10/2016. - Obtain KUB to r/o obstructive process though seems less likely - Colestid 2g BID for bile acid diarrhea - Will defer repeat Emend at this time given last dose 2 days ago. May continue Phenergan and Zofran on PRN basis - CL diet, IVF support. - DC Pepcid, increase Protonix to 40mg BID Will need to repeat digoxin level because as per pharmacy colestid can lower digoxin levels Obtain EKG to check QTc: no prolongation of QTC however computer read is ST abnormality which may be referring to V2 or V3 however on my interpretation does not appear to be ST elevation, will send stat troponin ordered at 5:30 PM to assess if risk for myocardial infarction Hypothyroid history Continue home does levothyroxine Mood disorder Continue home dose escitalopram DVt ppx: SCD under Observation, FULL CODE Level of Care Med/Surg Advanced Directives Existing Living Will: No Existing Power of Spanish Medical Interpreter: No Resuscitation Status FULL RESUSCITATION VTE Prophylaxis VTE Risk Assessment Done? Y/N: Yes Risk Level: Moderate
[2017-08-08 15:51] VITALS: BP 149/95; PULSE 61; TEMP 36.8; O2SAT 100
--- NOTE | 2017-08-08 15:52 | Gastrointestinal Consultation ---
Gastrointestinal Consultation Date of Consultation: Aug 08, 2017 Attending Physician: Matteo Mukherjee Consulting Physician: Elio Sanford Reason for Consultation: N/V History of Present Illness Patient is a 57 year old female known to GI service who presented to ED w c/o nausea, dry heaving x 1 day which she says is similar to her gastroparesis flare. She has hx of gastroparesis, Fan for paraesophageal hernia repair, partial gastrectomy, Dumping syndrome. She gets Emend IV on monthly basis. Also on outpt Reglan 10mg PO TID, Phenergan 25mg MN q6hrs prn nausea. She denies any fever, chills, CP, SOB, sick contact or recent antibx use. She has loose stools on baseline worse after her cholecystectomy, said not increased recently. She just had Emend 150mg IV infusion on 08/06. Labs including CBC, CMP unremarkable. Abd u/s showed pancreas and biliary duct dilation similar to exam on 10/2016. LFTs and Lipase normal. Past Medical/Surgical History Medical Problems: (1) Anxiety State Nos Status: Chronic (2) Chronic Obstructive Asthma, Nos Status: Chronic (3) Dehydration Status: Acute (4) Dehydration Status: Acute (5) Dumping syndrome Status: Acute (6) Epigastric abdominal pain Status: Acute (7) Esophagitis Nos Status: Chronic (8) Gastroparesis Status: Chronic (9) Hyperlipidemia Nec/Nos Status: Chronic (10) Hypothyroidism Nos Status: Chronic (11) Intractable nausea and vomiting Status: Acute (12) Intractable nausea and vomiting Status: Acute (13) Intractable nausea and vomiting Status: Acute (14) Intractable nausea and vomiting Status: Acute (15) Intractable vomiting Status: Acute (16) Iron Defic Anemia Nos Status: Chronic (17) Nausea Status: Acute (18) Nausea & vomiting Status: Acute (19) Nausea and vomiting Status: Acute (20) Pernicious Anemia Status: Chronic Surgical Problems: (1) S/P repair of paraesophageal hernia Status: Chronic Past Medical History: See above. (1) Abdominal pain (2) Anemia, iron deficiency (3) Anemia, iron deficiency (4) Anxiety (5) Anxiety State Nos (6) Asthma (7) Chronic Obstructive Asthma, Nos (8) COPD (chronic obstructive pulmonary disease) (9) Depression (10) Diarrhea (11) Diverticulosis (12) Esophagitis Nos (13) Frequent PVCs (14) Gastroparesis (15) GERD (gastroesophageal reflux disease) (16) Hyperlipidemia Nec/Nos (17) Hypothyroidism (18) Hypothyroidism Nos (19) Iron Defic Anemia Nos (20) Mitral regurgitation (21) MRSA bacteremia (22) Nausea (23) Neuropathy (24) Pemphigus vulgaris (25) Pernicious anemia (26) Pernicious Anemia (27) Premature atrial contractions (28) Tobacco abuse Past Surgical History: Past Medical & Surgical Medical Problems (1) H/O colonoscopy (2) H/O esophagogastroduodenoscopy (3) H/O oophorectomy (4) H/O: hysterectomy (5) History of bladder surgery (6) S/P hysterectomy (7) S/P laparoscopic sleeve gastrectomy (8) S/P partial gastrectomy (9) S/P repair of paraesophageal hernia (10) S/P tonsillectomy and adenoidectomy Family History Diabetes mellitus MOTHER SISTER FH: aneurysm FH: cancer FH: heart disease FATHER MOTHER Hypertension BROTHER Kidney disease Social History Smoking Status: Current Every Day Smoker Alcohol Use: none Drug Use: none Marital Status: single Housing Status: lives alone Occupation Status: disabled Allergies Coded Allergies: Amoxicillin (Verified Adverse Reaction, Intermediate, yeast infection, ) NSAIDs (Verified Adverse Reaction, Mild, indegestion, 08/08/17) Rofecoxib (Verified Adverse Reaction, Mild, indigestion, 08/08/17) Scopolamine (Verified Adverse Reaction, Mild, rash from patch, 08/08/17) Current Medications Home Meds and Scripts Medications Dose Route/Sig Max Daily Dose Days Date Category Proventil 0.083% 2.5MG/3ML (Albuterol Sulf) 2.5 Mg/3 Ml Nebu 3 Ml INH Q4H PRN 08/08/17 Reported Reglan (Metoclopramide HCl) 10 Mg Tab 10 Mg PO TIDM 08/08/17 Reported Lexapro (Escitalopram Oxalate) 20 Mg Tab 20 Mg PO HS 08/08/17 Reported [Vitamin B Injection] 1 Mg SQ MONTHLY 08/06/17 Reported Vitamin D 10946 Unit (Ergocalciferol) 50,000 Unit Cap 1 Cap PO EVERY OTHER WEEK 28 08/06/17 Reported Phenergan Suppository (Promethazine HCl) 25 Mg Supp 25 Mg MN Q6H PRN 06/15/17 Reported Pepcid (Famotidine) 40 Mg Tab 40 Mg PO BID 04/15/17 Reported Digoxin 0.125 Mg Tab 0.125 Mg PO QPM 11/02/16 Reported And Iron ( Multivit-Min W/Fe-Fa) 1 Tab Tab 1 Tab PO QPM 11/02/16 Reported Dexilant (Dexlansoprazole) 30 Mg Cap 30 Mg PO QAM 11/02/16 Reported Emend (Fosaprepitant Dimeglumine) 150 Mg Rosalia 150 Mg IV MONTHLY 10/06/16 Reported Gaviscon (Aluminum Hydroxide-Mag Trisil) 1 Chw Chw 2 Tabs PO TID PRN 08/23/16 Reported Zofran (Ondansetron HCl) 4 Mg Tab 4 Mg PO Q6H PRN 07/25/15 Reported Klonopin (Clonazepam) 0.5 Mg Tab 0.5 Mg PO TID PRN 06/22/14 Reported Levothyroxine Sodium 75 Mcg Tab 75 Mcg PO QAM 10/31/13 Reported Review of Systems Constitutional: + weakness, No fever, No chills Respiratory: No cough, No shortness of breath Cardiac: No chest pain Abdomen: + pain (mild epigastric area ), + nausea, + diarrhea, No vomiting, No GI bleeding Physical Exam Date Time Temp Pulse Resp B/P (MAP) Pulse Ox O2 Delivery O2 Flow Rate FiO2 08/08/17 14:15 36.9 62 18 155/99 96 Nasal Cannula 2.0 08/08/17 13:05 36.8 64 17 153/101 100 08/08/17 13:00 153/101 08/08/17 12:40 64 08/08/17 12:39 62 17 100 08/08/17 12:34 147/103 08/08/17 12:10 60 15 100 08/08/17 11:40 69 15 100 08/08/17 11:30 146/113 08/08/17 11:30 100 2.0 08/08/17 11:10 69 17 99 08/08/17 11:00 128/97 08/08/17 10:56 140/100 08/08/17 10:53 73 12 140/100 94 Room Air 08/08/17 10:52 140/100 08/08/17 10:40 64 20 96 08/08/17 10:30 155/117 08/08/17 10:10 67 19 98 08/08/17 10:00 133/104 08/08/17 09:56 66 08/08/17 09:53 156/102 08/08/17 09:13 36.8 58 20 128/88 98 Room Air General Appearance: + mild distress (felt nauseated) Eyes: normal inspection, PERRL, EOMI Neck: supple, no JVD, trachea midline Respiratory/Chest: normal breath sounds, no respiratory distress, no accessory muscle use Cardiovascular: regular rate, rhythm, no gallop, no murmur Abdomen: normal bowel sounds, non tender, soft Extremities: normal inspection, no pedal edema, no calf tenderness Neurologic/Psych: alert, normal mood/affect, oriented x 3 Skin: normal color, no jaundice, no rash Laboratory Results Last 24 Hours Test 08/08/17 09:38 08/08/17 12:10 08/08/17 14:30 White Blood Count 4.76 K/uL Red Blood Count 4.77 M/uL Hemoglobin 12.6 g/dL Hematocrit 38.8 % Mean Corpuscular Volume 81.3 fL Mean Corpuscular Hemoglobin 26.4 pg Mean Corpuscular Hemoglobin Concent 32.5 g/dl Platelet Count 260 K/uL Mean Platelet Volume 9.5 fL Neutrophils (%) (Auto) 73.4 % Lymphocytes (%) (Auto) 19.3 % Monocytes (%) (Auto) 6.7 % Eosinophils (%) (Auto) 0.4 % Basophils (%) (Auto) 0.2 % Neutrophils # (Auto) 3.49 K/uL Lymphocytes # (Auto) 0.92 K/uL Monocytes # (Auto) 0.32 K/uL Eosinophils # (Auto) 0.02 K/uL Basophils # (Auto) 0.01 K/uL RDW Standard Deviation 48.0 fL RDW Coefficient of Variation 16.1 % Immature Granulocyte % (Auto) 0.0 % Immature Granulocyte # (Auto) 0.00 K/uL Sodium Level 139 mmol/L Potassium Level 3.9 mmol/L Chloride Level 108 mmol/L Carbon Dioxide Level 22 mmol/L Anion Gap 9.0 mmol/L Blood Urea Nitrogen 11 mg/dl Creatinine 0.99 mg/dl Est Creatinine Clear Calc Drug Dose 55.1 ml/min Estimated GFR () 72.3 Estimated GFR (Non- 62.4 BUN/Creatinine Ratio 11.2 Random Glucose 131 mg/dl Calcium Level 8.9 mg/dl Total Bilirubin 0.4 mg/dl Direct Bilirubin 0.1 mg/dl Aspartate Amino Transf (AST/SGOT) 13 U/L Alanine Aminotransferase (ALT/SGPT) 16 U/L Alkaline Phosphatase 111 U/L Total Protein 7.6 gm/dl Albumin 3.8 gm/dl Lipase 118 U/L Thyroid Stimulating Hormone (TSH) 2.890 uIu/ml Digoxin Level 0.1 ng/ml Urine Color YELLOW Urine Appearance CLEAR Urine pH 5.0 Urine Specific [place] 1.020 Urine Protein NEG Urine Glucose (UA) NEG Urine Ketones 1+ Urine Occult Blood TRACE Urine Nitrite NEG Urine Bilirubin NEG Urine Urobilinogen NEG Urine Leukocyte Esterase TRACE Urine WBC (Auto) 1-5 /hpf Urine RBC (Auto) 0-4 /hpf Urine Hyaline Casts (Auto) 0 /lpf Urine Epithelial Cells (Auto) 10-20 /lpf Urine Bacteria (Auto) NEG Impression Patient is a 57 year old female w nausea, dry heaving, similar to her prior gastroparesis flare episodes. VS, labs, grossly unremarkable. Abd u/s showed pancreas and biliary ductal dilation but stable compared to CT on 10/2016. Plan - Obtain KUB to r/o obstructive process though seems less likely - Colestid 2g BID for bile acid diarrhea - Will defer repeat Emend at this time given last dose 2 days ago. May continue Phenergan and Zofran on PRN basis - CL diet, IVF support. - DC Pepcid, increase Protonix to 40mg BID I performed a history and physical examination of the patient. I have discussed the patient's case, impression and plan with Marilyn CARO on . Her note reflects my findings and plan. Agree with clears for exacerbation of gastroparesis. Elio Sanford MD
--- NOTE | 2017-08-08 16:36 | DIAGNOSTIC IMAGING REPORT ---
K[facility] CLINICAL HISTORY: 57 years-old Female presenting with n/v, r/o bowel obstruction . TECHNIQUE: Single supine view of the abdomen was obtained. COMPARISON: 04/21/2017. FINDINGS: Cholecystectomy clips. Surgical clips, surgical material, potentially barium, and anastomotic suture lines project over the epigastrium. Normal bowel gas pattern. No evidence of free intraperitoneal gas, pneumatosis, or portal venous gas. No calcifications to suggest nephrolithiasis. Multiple pelvic phleboliths. Osseous structures normal. Lung bases clear. IMPRESSION: 1. No acute intra-abdominal pathology. No convincing evidence of obstruction. Electronically signed by: Jeovany Bach M.D. 08/08/2017 4:34 PM Dictated Date/Time: 08/08/2017 4:32 PM
[2017-08-08] MEDS ORDERED: ACETAMINOPHEN 325 MG TAB PO STA (16:41)
[2017-08-08] MEDS ORDERED: ACETAMINOPHEN 325 MG TAB PO PRN (16:45)
[2017-08-08] MEDS: SODIUM CHLORIDE 0.9% 1000ML 1,000 ML IV SCH (16:55)
[2017-08-08] MEDS: PANTOprazole SOD 40 MG TAB PO SCH (17:08)
[2017-08-08 17:17] LABS: AMYLASE 46 U/L (25-115)
[2017-08-08] MEDS ORDERED: FAMOTIDINE 20 MG TAB PO SCH (20:00)
[2017-08-08 20:21] VITALS: PULSE 68
[2017-08-08] MEDS ORDERED: DIGOXIN 0.125 MG TAB PO SCH (21:00)
[2017-08-08] MEDS ORDERED: ESCITALOPRAM OXALATE 20 MG TAB PO SCH (21:00)
[2017-08-08] MEDS ORDERED: CALCIUM CARBONATE 500 MG CHEWABLE PO ONE (22:08)
[2017-08-08 22:12] VITALS: PULSE 60; O2SAT 96
[2017-08-08] MEDS: COLESTIPOL HCL 1 GM TAB PO SCH (22:13)
[2017-08-08] MEDS ORDERED: CALCIUM CARBONATE 500 MG CHEWABLE PO PRN (22:15)
[2017-08-08 23:47] VITALS: BP 90/52; PULSE 62; TEMP 36.7; O2SAT 95
[2017-08-09 05:54] LABS: BASO % 0.4 %; BASO ABS # 0.02 K/uL (0-0.2); COMPLETE YES; EOS % 1.9 %; HEMATOCRIT 31.1 % (37-47); LYMPH % 38.8 %; MEAN CELL VOLUME 82.1 fL (80-100); MEAN CORPUSCULAR HEMOGLOBIN 26.1 pg (25-34); MEAN CORPUSCULAR HGB CONC 31.8 g/dl (32-36); MEAN PLATELET VOLUME 9.3 fL (7.4-10.4); MONO % 12.4 %; NEUT % 46.5 %; PLATELET COUNT 196 K/uL (130-400); RED BLOOD COUNT 3.79 M/uL (4.2-5.4); WHITE BLOOD COUNT 5.16 K/uL (4.8-10.8)
[2017-08-09 06:29] LABS: BUN/CREATININE RATIO 9.2 (10-20); CALCIUM 8.2 mg/dl (8.5-10.1); CREATININE 0.75 mg/dl (0.60-1.20); MAGNESIUM 1.9 mg/dl (1.8-2.4); POTASSIUM 3.6 mmol/L (3.5-5.1)
[2017-08-09] MEDS ORDERED: LEVOTHYROXINE 75 MCG TAB PO SCH (06:30)
[2017-08-09] MEDS ORDERED: PANTOprazole SOD 40 MG TAB PO SCH (08:00)
[2017-08-09 08:01] VITALS: BP 104/68; PULSE 55; TEMP 36.7; O2SAT 97
[2017-08-09] MEDS: PANTOprazole SOD 40 MG TAB PO SCH (08:09)
[2017-08-09] MEDS: COLESTIPOL HCL 1 GM TAB PO SCH (10:16)
--- NOTE | 2017-08-09 10:42 | Gastroenterology Progress Note ---
Progress Note Date of Service: Aug 09, 2017 Subjective Pt evaluation today including: conversation w/ patient, physical exam, chart review, lab review, review of inpatient medication list Pt reports feeling well, wants solid meals for lunch and to go home with daughter by afternoon. No abd pain, n/v, BM still loose till AM. Review of Systems Constitutional: No fever, No chills Respiratory: No cough, No shortness of breath Abdomen: No pain, No nausea, No vomiting Medications Current Inpatient Medications Medications (Trade) Dose Ordered Sig/Marisol Route Start Time Stop Time Status Last Admin Dose Admin Albuterol Sulfate (Ventolin 0.083% 2.5MG/3ML Neb) 2.5 mg Q4H PRN INH 08/08/17 13:00 09/07/17 12:59 Clonazepam (Klonopin Tab) 0.5 mg TID PRN PO 08/08/17 13:00 09/07/17 12:59 08/08/17 20:27 0.5 MG Digoxin (Lanoxin Tab) 0.125 mg QPM PO 08/08/17 21:00 09/07/17 20:59 08/08/17 20:23 0.125 MG Escitalopram Oxalate (Lexapro Tab) 20 mg HS PO 08/08/17 21:00 09/07/17 20:59 08/08/17 20:24 20 MG Levothyroxine Sodium (Synthroid Tab) 75 mcg DAILYBB PO 08/09/17 06:30 09/08/17 06:29 08/09/17 06:31 75 MCG Ondansetron HCl 6 mg/Dextrose 53 ml @ 200 mls/hr Q6H PRN IV 08/08/17 14:00 09/07/17 13:59 08/08/17 14:08 200 MLS/HR Promethazine HCl 12.5 mg/Sodium Chloride 50.5 ml @ 204 mls/hr Q6H PRN IV 08/08/17 14:00 09/07/17 13:59 08/08/17 15:35 204 MLS/HR Miscellaneous (Iv Fluids Completed) 1 ea PRN PRN N/A 08/08/17 14:00 08/08/18 13:59 Heparin Sodium (Porcine) (Heparin 100 Unit/ml 5ml Flush) 5 ml PRN PRN IV 08/08/17 14:15 09/07/17 14:14 08/08/17 14:25 5 ML Colestipol HCl (Colestid Tab) 2 gm BID@1000,2200 PO 08/08/17 22:00 09/07/17 21:59 08/09/17 10:16 2 GM Pantoprazole Sodium (Protonix Tab) 40 mg BID PO 08/08/17 20:00 09/08/17 07:59 08/09/17 08:09 40 MG Sodium Chloride 1,000 ml @ 50 mls/hr Q20H IV 08/08/17 16:15 09/07/17 16:14 08/08/17 16:55 50 MLS/HR Acetaminophen (Tylenol Tab) 650 mg Q4H PRN PO 08/08/17 16:45 09/07/17 16:44 Calcium Carbonate (Tums Chew Tab) 500 mg Q6H PRN PO 08/08/17 22:15 09/07/17 22:14 Objective Vital Signs Date Time Temp Pulse Resp B/P (MAP) Pulse Ox O2 Delivery O2 Flow Rate FiO2 08/09/17 08:01 36.7 55 18 104/68 (80) 97 Room Air 08/09/17 00:05 Room Air 08/08/17 23:47 36.7 62 20 90/52 (65) 95 Room Air 08/08/17 22:12 60 96 Room Air 08/08/17 20:23 68 08/08/17 20:21 08/08/17 16:00 Room Air 08/08/17 15:51 36.8 61 18 149/95 (113) 100 Nasal Cannula 2.0 08/08/17 14:15 36.9 62 18 155/99 96 Nasal Cannula 2.0 08/08/17 13:05 36.8 64 17 153/101 100 08/08/17 13:00 153/101 08/08/17 12:40 64 08/08/17 12:39 62 17 100 08/08/17 12:34 147/103 08/08/17 12:10 60 15 100 08/08/17 11:40 69 15 100 08/08/17 11:30 146/113 08/08/17 11:30 100 2.0 08/08/17 11:10 69 17 99 08/08/17 11:00 128/97 11/15/17 10:56 140/100 08/08/17 10:53 73 12 140/100 94 Room Air 08/08/17 10:52 140/100 08/08/17 10:40 64 20 96 Physical Exam General Appearance: WD/WN, no apparent distress Eyes: normal inspection, PERRL, EOMI Neck: supple, no JVD, trachea midline Respiratory/Chest: normal breath sounds, no respiratory distress, no accessory muscle use Cardiovascular: regular rate, rhythm, no gallop, no murmur Abdomen: normal bowel sounds, non tender, soft Extremities: normal inspection, no pedal edema, no calf tenderness Neurologic/Psych: alert, normal mood/affect, oriented x 3 Skin: normal color, no jaundice, no rash Laboratory Results Last 24 Hours Test 08/08/17 12:10 08/08/17 14:30 08/08/17 17:58 08/09/17 05:15 Digoxin Level 0.1 ng/ml 0.5 ng/ml Urine Color YELLOW Urine Appearance CLEAR Urine pH 5.0 Urine Specific [place] 1.020 Urine Protein NEG Urine Glucose (UA) NEG Urine Ketones 1+ Urine Occult Blood TRACE Urine Nitrite NEG Urine Bilirubin NEG Urine Urobilinogen NEG Urine Leukocyte Esterase TRACE Urine WBC (Auto) 1-5 /hpf Urine RBC (Auto) 0-4 /hpf Urine Hyaline Casts (Auto) 0 /lpf Urine Epithelial Cells (Auto) 10-20 /lpf Urine Bacteria (Auto) NEG Troponin I < 0.015 ng/ml White Blood Count 5.16 K/uL Red Blood Count 3.79 M/uL Hemoglobin 9.9 g/dL Hematocrit 31.1 % Mean Corpuscular Volume 82.1 fL Mean Corpuscular Hemoglobin 26.1 pg Mean Corpuscular Hemoglobin Concent 31.8 g/dl Platelet Count 196 K/uL Mean Platelet Volume 9.3 fL Neutrophils (%) (Auto) 46.5 % Lymphocytes (%) (Auto) 38.8 % Monocytes (%) (Auto) 12.4 % Eosinophils (%) (Auto) 1.9 % Basophils (%) (Auto) 0.4 % Neutrophils # (Auto) 2.40 K/uL Lymphocytes # (Auto) 2.00 K/uL Monocytes # (Auto) 0.64 K/uL Eosinophils # (Auto) 0.10 K/uL Basophils # (Auto) 0.02 K/uL RDW Standard Deviation 49.6 fL RDW Coefficient of Variation 16.5 % Immature Granulocyte % (Auto) 0.0 % Immature Granulocyte # (Auto) 0.00 K/uL Sodium Level 143 mmol/L Potassium Level 3.6 mmol/L Chloride Level 110 mmol/L Carbon Dioxide Level 26 mmol/L Anion Gap 7.0 mmol/L Blood Urea Nitrogen 7 mg/dl Creatinine 0.75 mg/dl Est Creatinine Clear Calc Drug Dose 72.7 ml/min Estimated GFR () 101.1 Estimated GFR (Non- 87.2 BUN/Creatinine Ratio 9.2 Random Glucose 82 mg/dl Calcium Level 8.2 mg/dl Magnesium Level 1.9 mg/dl Total Bilirubin 0.3 mg/dl Aspartate Amino Transf (AST/SGOT) 12 U/L Alanine Aminotransferase (ALT/SGPT) 14 U/L Alkaline Phosphatase 80 U/L Total Protein 5.8 gm/dl Albumin 2.9 gm/dl Globulin 2.9 gm/dl Albumin/Globulin Ratio 1.0 Assessment and Plan Patient is a 57 year old female w nausea, dry heaving, similar to her prior gastroparesis flare episodes. VS, labs, grossly unremarkable. Abd u/s showed pancreas and biliary ductal dilation but stable compared to CT on 10/2016. KUB w/ o obstruction. She feels well today, denies any more nausea, abd pain, + loose stools at baseline. Cdiff negative. - Colestid 2g BID for bile acid diarrhea - Protonix to 40mg BID - Advanced to regular diet - OK to DC home per GI standpoint. I performed a history and physical examination of the patient. I have discussed the patient's case, impression and plan with Marilyn CARO. Her note reflects my findings and plan. Improving, eating. Wants to go home. Elio Sanford MD
[2017-08-09] MEDS: SODIUM CHLORIDE 0.9% 1000ML 1,000 ML IV SCH (12:16)
[2017-08-09 12:35] VITALS: BP 104/68; PULSE 55; TEMP 36.7; O2SAT 97
--- NOTE | 2017-08-09 14:35 | Progress Note ---
Medicine Progress Note Date & Time of Visit: Aug 09, 2017 at 14:31. Subjective patient seen resting in bed, comfortable in good spirits states she feels much better today abdominal pain, nausea have resolve tolerating diet well states she is ready and would like to be discharged today Objective Last 8 Hrs Date Time Temp Pulse Resp B/P (MAP) Pulse Ox O2 Delivery O2 Flow Rate FiO2 08/09/17 12:35 36.7 55 18 97 Room Air 08/09/17 08:10 Room Air 08/09/17 08:01 36.7 55 18 104/68 (80) 97 Room Air Physical Exam: General- oriented x 3, not in distress, speaks in sentences with no effort Head- atraumatic Eyes- PERRL, EOMI, anicteric ENT- oropharynx clear Neck- supple, no JVD, no adenopathy, no thyromegaly Lungs- clear to auscultation bilaterally Heart- regular rhythm; no murmur, normal rate Abdomen- normal bowel sounds, soft, nontender Extremities- no pretibial edema, no calf tenderness; peripheral pulses intact Neuro- alert, oriented x 3; PERRL, EOMI; no facial palsy; no dysarthria; motor 5 /5 bilaterally; no gross focal neuro deficits Skin- warm & dry Laboratory Results: Last 24 Hours Test 08/08/17 17:58 08/09/17 05:15 Troponin I < 0.015 ng/ml White Blood Count 5.16 K/uL Red Blood Count 3.79 M/uL Hemoglobin 9.9 g/dL Hematocrit 31.1 % Mean Corpuscular Volume 82.1 fL Mean Corpuscular Hemoglobin 26.1 pg Mean Corpuscular Hemoglobin Concent 31.8 g/dl Platelet Count 196 K/uL Mean Platelet Volume 9.3 fL Neutrophils (%) (Auto) 46.5 % Lymphocytes (%) (Auto) 38.8 % Monocytes (%) (Auto) 12.4 % Eosinophils (%) (Auto) 1.9 % Basophils (%) (Auto) 0.4 % Neutrophils # (Auto) 2.40 K/uL Lymphocytes # (Auto) 2.00 K/uL Monocytes # (Auto) 0.64 K/uL Eosinophils # (Auto) 0.10 K/uL Basophils # (Auto) 0.02 K/uL RDW Standard Deviation 49.6 fL RDW Coefficient of Variation 16.5 % Immature Granulocyte % (Auto) 0.0 % Immature Granulocyte # (Auto) 0.00 K/uL Sodium Level 143 mmol/L Potassium Level 3.6 mmol/L Chloride Level 110 mmol/L Carbon Dioxide Level 26 mmol/L Anion Gap 7.0 mmol/L Blood Urea Nitrogen 7 mg/dl Creatinine 0.75 mg/dl Est Creatinine Clear Calc Drug Dose 72.7 ml/min Estimated GFR () 101.1 Estimated GFR (Non- 87.2 BUN/Creatinine Ratio 9.2 Random Glucose 82 mg/dl Calcium Level 8.2 mg/dl Magnesium Level 1.9 mg/dl Total Bilirubin 0.3 mg/dl Aspartate Amino Transf (AST/SGOT) 12 U/L Alanine Aminotransferase (ALT/SGPT) 14 U/L Alkaline Phosphatase 80 U/L Total Protein 5.8 gm/dl Albumin 2.9 gm/dl Globulin 2.9 gm/dl Albumin/Globulin Ratio 1.0 Digoxin Level 0.5 ng/ml Date/Time Source Procedure Growth Status 08/08/17 22:15 Nasal MRSA DNA Surveillance Screen - Final Specimen Negative for MRSA by DNA Probe Complete 08/09/17 09:00 Stool C.difficile Toxin B Gene (PCR) - Final No C. difficile toxin B gene detected Complete 08/09/17 09:00 Stool WBC Smear - Final Resulted 08/09/17 09:00 Stool Shiga Toxin Test Pending Resulted 08/09/17 09:00 Stool Stool Culture Pending Resulted Assessment & Plan 56 year old female with history of Gastroparesis, PVCs, Hypothyroidism presenting with nausea and vomiting.. GASTROPARESIS FLARE UP - KUB: no obstruction Abominal US: Pancreatic and biliary ductal dilatation. This raises concern for pancreatic head mass, however, the appearance is not dissimilar to prior noncontrast CT from 11/02/2016. Given the prior exam was noncontrast, further evaluation with contrast enhanced dedicated pancreas CT could be considered. - given supportive care including PRN Antiemetics GI consulted- Dr. Sanford/ALYSHA Gonzalez - cleared for discharge recommend: Colestid BID for bile acid diarrhea Protonix 40mg BID ff up with GI as scheduled ff up with PCP in 1 week PVCs - continue Digoxin HYPOTHYROIDISM - continue Lthyroxine Dispo d/c home ff up with GI as scheduled ff up with PCP in 1 week Current Inpatient Medications: Current Inpatient Medications Medications (Trade) Dose Ordered Sig/Marisol Route Start Time Stop Time Status Last Admin Dose Admin Albuterol Sulfate (Ventolin 0.083% 2.5MG/3ML Neb) 2.5 mg Q4H PRN INH 08/08/17 13:00 09/07/17 12:59 Clonazepam (Klonopin Tab) 0.5 mg TID PRN PO 08/08/17 13:00 09/07/17 12:59 08/08/17 20:27 0.5 MG Digoxin (Lanoxin Tab) 0.125 mg QPM PO 08/08/17 21:00 09/07/17 20:59 08/08/17 20:23 0.125 MG Escitalopram Oxalate (Lexapro Tab) 20 mg HS PO 08/08/17 21:00 09/07/17 20:59 08/08/17 20:24 20 MG Levothyroxine Sodium (Synthroid Tab) 75 mcg DAILYBB PO 08/09/17 06:30 09/08/17 06:29 08/09/17 06:31 75 MCG Ondansetron HCl 6 mg/Dextrose 53 ml @ 200 mls/hr Q6H PRN IV 08/08/17 14:00 09/07/17 13:59 08/08/17 14:08 200 MLS/HR Promethazine HCl 12.5 mg/Sodium Chloride 50.5 ml @ 204 mls/hr Q6H PRN IV 08/08/17 14:00 09/07/17 13:59 08/08/17 15:35 204 MLS/HR Miscellaneous (Iv Fluids Completed) 1 ea PRN PRN N/A 08/08/17 14:00 08/08/18 13:59 Heparin Sodium (Porcine) (Heparin 100 Unit/ml 5ml Flush) 5 ml PRN PRN IV 08/08/17 14:15 09/07/17 14:14 08/08/17 14:25 5 ML Colestipol HCl (Colestid Tab) 2 gm BID@1000,2200 PO 08/08/17 22:00 09/07/17 21:59 08/09/17 10:16 2 GM Pantoprazole Sodium (Protonix Tab) 40 mg BID PO 08/08/17 20:00 09/08/17 07:59 08/09/17 08:09 40 MG Sodium Chloride 1,000 ml @ 50 mls/hr Q20H IV 08/08/17 16:15 09/07/17 16:14 08/09/17 12:16 50 MLS/HR Acetaminophen (Tylenol Tab) 650 mg Q4H PRN PO 08/08/17 16:45 09/07/17 16:44 Calcium Carbonate (Tums Chew Tab) 500 mg Q6H PRN PO 08/08/17 22:15 09/07/17 22:14
[2017-08-09] MEDS ORDERED: PRT40 PO (14:36)
[2017-08-09] MEDS ORDERED: CLS1 PO (14:36)
--- NOTE | 2017-08-09 14:43 | Discharge Instructions ---
Discharge Instructions Date of Service Aug 09, 2017. Admission Reason for Admission: Abdominal Pain, Nausea Discharge Discharge Diagnosis / Problem: GASTROPARESIS FLARE UP Discharge Goals Goal(s): Diagnostic testing, Therapeutic intervention Activity Recommendations Activity Limitations: resume your previous activity . Instructions / Follow-Up Instructions / Follow-Up PLEASE REVIEW YOUR NEW MEDICATION LIST AND FOLLOW INSTRUCTIONS CAREFULLY. SOFT DIET. ENSURE ADEQUATE DAILY FLUID INTAKE. CALL YOUR ENERGY BROKER OR RETURN TO THE ER IMMEDIATELY IF WITH RECURRENCE/ WORSENING OF SYMPTOMS. FOLLOW UP WITH PRIMARY CARE PHYSICIAN NEXT WEEK. (THE CLINIC WILL BE CALL YOU FOR THE APPOINTMENT SCHEDULE). Current Hospital Diet Patient's current hospital diet: Regular Diet Discharge Diet Recommended Diet: Regular Diet (SOFT) Procedures Procedures Performed: ABDOMINAL ULTRASOUND, AND XRAY Pending Studies Studies pending at discharge: no Medical Emergencies . Who to Call and When: Medical Emergencies: If at any time you feel your situation is an emergency, please call 911 immediately. . Non-Emergent Contact Non-Emergency issues call your: Primary Care Provider, Equipment Installation Professional Call Non-Emergent contact if: you have a fever, your pain is not controlled, your pain is worsening, you have any medication questions . . "Provider Documentation" section prepared by Charlie Maher. . VTE Core Measure Inpt VTE Proph given/why not?: SCD's
--- NOTE | 2017-08-09 14:46 | Discharge Summary ---
Discharge Summary Date of Service Aug 09, 2017. Discharge Summary Admission Date: Aug 08, 2017 at 12:37 Discharge Date: Aug 09, 2017 Discharge Disposition: Home Principal Diagnosis: GASTROPARESIS FLARE UP Procedures: ABDOMEN COMPLETE (US) CLINICAL HISTORY: 57 years-old Female presenting with abdominal discomfort. TECHNIQUE: Real-time grayscale and limited color Doppler ultrasound imaging of the abdomen was performed. COMPARISON: 01/21/[address] from 11/02/2016. FINDINGS: Pancreas: Prominent pancreatic duct measuring 4 mm at the level of the pancreatic head. Grossly normal appearing parenchyma. Liver: Normal echogenicity and echotexture. The liver measures 13 cm in maximal sagittal dimension. No sonographic evidence of hepatic mass. Main portal vein patent with normal directional flow. Biliary: Significant intrahepatic and extrahepatic biliary ductal dilatation. Common bile duct measures up to 12 mm in diameter at the level of the pancreatic head. Gallbladder: Gallbladder: Surgically absent. Spleen: Normal in echogenicity and size, measuring 10 cm in length. Kidneys: Normal in size and echogenicity. Right kidney measures 12.1 cm, and left kidney measures 10.7 cm. No hydronephrosis. Vasculature: Visualized portions of the IVC and abdominal aorta normal. Ascites: None. IMPRESSION: Pancreatic and biliary ductal dilatation. This raises concern for pancreatic head mass, however, the appearance is not dissimilar to prior noncontrast CT from 11/02/2016. Given the prior exam was noncontrast, further evaluation with contrast enhanced dedicated pancreas CT could be considered. KUB CLINICAL HISTORY: 57 years-old Female presenting with n/v, r/o bowel obstruction . TECHNIQUE: Single supine view of the abdomen was obtained. COMPARISON: 04/21/2017. FINDINGS: Cholecystectomy clips. Surgical clips, surgical material, potentially barium, and anastomotic suture lines project over the epigastrium. Normal bowel gas pattern. No evidence of free intraperitoneal gas, pneumatosis, or portal venous gas. No calcifications to suggest nephrolithiasis. Multiple pelvic phleboliths. Osseous structures normal. Lung bases clear. IMPRESSION: 1. No acute intra-abdominal pathology. No convincing evidence of obstruction. Consultations: GI Dr. Sanford/VANIA Gonzalez Medication Reconciliation New Medications: Colestipol HCl (Colestid) 1 Gm Tab 2 GM PO BID@1000,2200 for 30 Days, #60 TAB 2 Refills Pantoprazole (Pantoprazole Sodium) 40 Mg Tab 40 MG PO BID for 30 Days, #60 TAB 0 Refills Continued Medications: Albuterol Sulf (Proventil 0.083% 2.5MG/3ML) 2.5 Mg/3 Ml Nebu 3 ML INH Q4H PRN for Wheezing Aluminum Hydroxide-Mag Trisil (Gaviscon) 1 Chw Chw 2 TABS PO TID PRN for Dyspepsia Clonazepam (Klonopin) 0.5 Mg Tab 0.5 MG PO TID PRN for Anxiety/Agitation Digoxin (Digoxin) 0.125 Mg Tab 0.125 MG PO QPM Ergocalciferol (Vitamin D 12367 Unit) 50,000 Unit Cap 1 CAP PO EVERY OTHER WEEK for 28 Days, #4 CAP 5 Refills Escitalopram Oxalate (Lexapro) 20 Mg Tab 20 MG PO HS, TAB Famotidine (Pepcid) 40 Mg Tab 40 MG PO BID, TAB Fosaprepitant Dimeglumine (Emend) 150 Mg Rosalia 150 MG IV MONTHLY Levothyroxine Sodium (Levothyroxine Sodium) 75 Mcg Tab 75 MCG PO QAM Metoclopramide (Reglan) 10 Mg Tab 10 MG PO TIDM, TAB Ondansetron Hcl (Zofran) 4 Mg Tab 4 MG PO Q6H PRN for Nausea, TAB Multivit-Min W/Fe-Fa ( And Iron) 1 Tab Tab 1 TAB PO QPM Promethazine (Phenergan Suppository) 25 Mg Supp 25 MG FL Q6H PRN for Nausea, #10 SUPP [Vitamin B Injection] () 1 MG SQ MONTHLY Discontinued Medications: Dexlansoprazole (Dexilant) 30 Mg Cap 30 MG PO QAM Admission Information HPI (per Admitting provider): This is a 57 year old patient without history of diabetes who has had multiple hospital visits for abdominal symptoms such as nausea. Patient presents to the ED after 24 hours of abdominal symptoms of nausea without vomiting, and diarrhea. Patient's surgical history for hysterectomy and hernia repair and also has port of right chest to receive IV medication of fosaprepitant Dimeglumine (EMEND) 150 mg Every Month for recurrent nausea symptoms with Reglan TID at home and rectal suppository promethazine q6 hours as needed. Patient also on GERD medication of famotidine 40 mg BID and Dexilant 30 mg daily. Patient also follows with cardiology Dr. Dallas and takes Digoxin for arrhythmia history but no anticoagulation of other cardiovascular medications. Patient also on Levothyroxine for history of hypothyroidism. Physical Exam (per Admitting): General Appearance: WD/WN, no apparent distress Head: normocephalic, atraumatic Eyes: normal inspection, EOMI, sclerae normal ENT: normal ENT inspection, hearing grossly normal, TMs normal, pharynx normal Neck: no JVD, trachea midline Respiratory/Chest: chest non-tender, lungs clear, normal breath sounds, no respiratory distress, no accessory muscle use Cardiovascular: regular rate, rhythm, no edema, no JVD Abdomen/GI: normal bowel sounds, non tender, soft Back: no CVA tenderness, no muscle spasm, normal range of motion Extremities/Musculoskelatal: normal inspection, no calf tenderness, no pedal edema, normal range of motion Neurologic/Psych: no motor/sensory deficits, alert, normal mood/affect, oriented x 3 Skin: normal color, warm/dry, no rash Hospital Course 56 year old female with history of Gastroparesis, PVCs, Hypothyroidism presenting with nausea and vomiting.. GASTROPARESIS FLARE UP - KUB: no obstruction Abominal US: Pancreatic and biliary ductal dilatation. This raises concern for pancreatic head mass, however, the appearance is not dissimilar to prior noncontrast CT from 11/02/2016. Given the prior exam was noncontrast, further evaluation with contrast enhanced dedicated pancreas CT could be considered. - given supportive care including PRN Antiemetics GI consulted- Dr. Sanford/ALYSHA Gonzalez - cleared for discharge GI recommends: Colestid BID for bile acid diarrhea Protonix 40mg BID ff up with GI as scheduled ff up with PCP in 1 week PVCs - continue Digoxin HYPOTHYROIDISM - continue Lthyroxine Dispo d/c home ff up with GI as scheduled ff up with PCP in 1 week Total time spent on discharge = 30 mins This includes examination of the patient, discharge planning, medication reconciliation, and communication with other providers. Discharge Instructions Discharge Instructions Date of Service Aug 09, 2017. Admission Reason for Admission: Abdominal Pain, Nausea Discharge Discharge Diagnosis / Problem: GASTROPARESIS FLARE UP Discharge Goals Goal(s): Diagnostic testing, Therapeutic intervention Activity Recommendations Activity Limitations: resume your previous activity . Instructions / Follow-Up Instructions / Follow-Up PLEASE REVIEW YOUR NEW MEDICATION LIST AND FOLLOW INSTRUCTIONS CAREFULLY. SOFT DIET. ENSURE ADEQUATE DAILY FLUID INTAKE. CALL YOUR WALLPAPER INSTALLER OR RETURN TO THE ER IMMEDIATELY IF WITH RECURRENCE/ WORSENING OF SYMPTOMS. FOLLOW UP WITH PRIMARY CARE PHYSICIAN NEXT WEEK. (THE CLINIC WILL BE CALL YOU FOR THE APPOINTMENT SCHEDULE). Current Hospital Diet Patient's current hospital diet: Regular Diet Discharge Diet Recommended Diet: Regular Diet (SOFT) Procedures Procedures Performed: ABDOMINAL ULTRASOUND, AND XRAY Pending Studies Studies pending at discharge: no Medical Emergencies . Who to Call and When: Medical Emergencies: If at any time you feel your situation is an emergency, please call 911 immediately. . Non-Emergent Contact Non-Emergency issues call your: Primary Care Provider, Brain Picker Call Non-Emergent contact if: you have a fever, your pain is not controlled, your pain is worsening, you have any medication questions . . "Provider Documentation" section prepared by Charlie Maher. . VTE Core Measure Inpt VTE Proph given/why not?: SCD's
== END 2017-08-09 16:00 | disposition home or self-care (01) ==
LOC: C.EDB 09:11 → C.4E 12:37 → ENRESERV 12:51
PROVIDERS: ADMIT Hospitalist; ATTEND Internal Medicine
DX: K31.84 Gastroparesis (principal); F41.9 Anxiety disorder, unspecified; J44.9 Chronic obstructive pulmonary disease, unspecified; K21.9 Gastro-esophageal reflux disease without esophagitis; E78.5 Hyperlipidemia, unspecified; E03.9 Hypothyroidism, unspecified; I34.0 Nonrheumatic mitral (valve) insufficiency; D50.9 Iron deficiency anemia, unspecified; F17.200 Nicotine dependence, unspecified, uncomplicated; Z90.710 Acquired absence of both cervix and uterus; Z90.89 Acquired absence of other organs; Z90.3 Acquired absence of stomach [part of]; Z83.3 Family history of diabetes mellitus; Z82.49 Family history of ischemic heart disease and other diseases of the circulatory system; Z84.1 Family history of disorders of kidney and ureter; Z86.14 Personal history of Methicillin resistant Staphylococcus aureus infection; Z90.49 Acquired absence of other specified parts of digestive tract

== ENCOUNTER 2017-10-12 11:42 | Observation (INO) | payer OTHER ==
[~2017-10-12] VITALS: Ht 167.6 cm; Wt 66.5 kg
[~2017-10-12 11:42] MED LIST changes: +ALBINS/ INH; +CLS1 PO; -DEXL30CA5 PO; -ESCI10TA17 PO; +ESCI1TAB10 PO; +METO-157 PO; +PRT40 PO
[2017-10-12] MEDS ORDERED: ONDANSETRON INJ 2 MG/ML 2 ML VIAL IV STA (13:05)
[2017-10-12] MEDS ORDERED: MoRPHine SULFATE 4 MG/ML 1 ML CARP\\VIAL IV STA (13:33)
[2017-10-12] MEDS ORDERED: DiphenhydrAMINE HCL 50 MG/ML VIAL IV STA (13:33)
[2017-10-12 13:34] LABS: BASO % 0.2 %; BASO ABS # 0.02 K/uL (0-0.2); EOS % 0.2 %; EOS ABS # 0.02 K/uL (0-0.5); HEMATOCRIT 35.1 % (37-47); HEMOGLOBIN 11.8 g/dL (12.0-16.0); IG# 0.01 K/uL (0.00-0.02); LYMPH % 13.5 %; LYMPH ABS # 1.11 K/uL (1.2-3.4); MEAN CELL VOLUME 79.8 fL (80-100); MEAN CORPUSCULAR HEMOGLOBIN 26.8 pg (25-34); MEAN CORPUSCULAR HGB CONC 33.6 g/dl (32-36); MEAN PLATELET VOLUME 9.3 fL (7.4-10.4); MONO % 5.6 %; MONO ABS # 0.46 K/uL (0.11-0.59); NEUT % 80.4 %; NEUT ABS # 6.61 K/uL (1.4-6.5); PLATELET COUNT 319 K/uL (130-400); RED CELL DISTRIBUTION WIDTH CV 17.4 % (11.5-14.5); RED CELL DISTRIBUTION WIDTH SD 50.4 fL (36.4-46.3); WHITE BLOOD COUNT 8.23 K/uL (4.8-10.8)
--- NOTE | 2017-10-12 13:35 | EMERGENCY ROOM VISIT NOTE ---
History Report prepared by [place]: Spenser Hawley Under the Supervision of: Dr. Dony Santamaria M.D. First contact with patient: 13:16 Chief Complaint: GI ASSESSMENT Stated Complaint: GASTROPERISIS, NAUSEA, STOMACH PAIN Nursing Triage Summary: History of gastroparesis States this morning at 0700 she began having abdominal pain, dry heaves, nausea , and acid reflux Denies diarrhea or vomiting History of Present Illness The patient is a 57 year old female who presents to the Emergency Room with complaints of constant nausea that began this morning, several hours prior to arrival. The patient has a history of severe gastroparesis and notes that this feels very similar to her previous flairs. The patient is dry heaving, but cannot vomit. She is also experiencing pain in her abdomen. The pain in her abdomen is radiating in to her back. The patient took Reglan and Zofran at home without relief. The patient also asked to have her ankle evaluated as she twisted the ankle two days ago and is in pain. 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 A total of 10 systems reviewed and were otherwise negative. Past Medical & Surgical Medical Problems: (1) Abdominal pain (2) Anemia, iron deficiency (3) Anemia, iron deficiency (4) Anxiety (5) Anxiety State Nos (6) Asthma (7) Chronic Obstructive Asthma, Nos (8) COPD (chronic obstructive pulmonary disease) (9) Depression (10) Diarrhea (11) Diverticulosis (12) Esophagitis Nos (13) Frequent PVCs (14) Gastroparesis (15) GERD (gastroesophageal reflux disease) (16) Hyperlipidemia Nec/Nos (17) Hypothyroidism (18) Hypothyroidism Nos (19) Iron Defic Anemia Nos (20) Mitral regurgitation (21) MRSA bacteremia (22) Nausea (23) Neuropathy (24) Pemphigus vulgaris (25) Pernicious anemia (26) Pernicious Anemia (27) Premature atrial contractions (28) Tobacco abuse Surgical Problems: (1) H/O colonoscopy (2) H/O esophagogastroduodenoscopy (3) H/O oophorectomy (4) H/O: hysterectomy (5) History of bladder surgery (6) S/P hysterectomy (7) S/P laparoscopic sleeve gastrectomy (8) S/P partial gastrectomy (9) S/P repair of paraesophageal hernia (10) S/P repair of paraesophageal hernia (11) S/P tonsillectomy and adenoidectomy (12) S/P tonsillectomy and adenoidectomy Old medical records were reviewed. Nurse's notes were reviewed and I agree with. Gastroparesis Family History Diabetes mellitus MOTHER SISTER FH: aneurysm FH: cancer FH: heart disease FATHER MOTHER Hypertension BROTHER Kidney disease Social History Smoking Status: Current Every Day Smoker Alcohol Use: none Drug Use: none Marital Status: single Housing Status: lives alone Occupation Status: disabled Current/Historical Medications Scheduled Digoxin (Digoxin), 0.125 MG PO QPM Ergocalciferol (Vitamin D 77698 Unit), 1 CAP PO EVERY OTHER WEEK Escitalopram Oxalate (Lexapro), 20 MG PO HS Famotidine (Pepcid), 40 MG PO BID Fosaprepitant Dimeglumine (Emend), 150 MG IV MONTHLY Levothyroxine Sodium (Levothyroxine Sodium), 75 MCG PO QAM Metoclopramide (Reglan), 10 MG PO TIDM Pantoprazole (Pantoprazole Sodium), 40 MG PO BID Multivit-Min W/Fe-Fa ( And Iron), 1 TAB PO QPM [Vitamin B Injection], 1 MG SQ MONTHLY Scheduled PRN Albuterol Sulf (Proventil 0.083% 2.5MG/3ML), 3 ML INH Q4H PRN for Wheezing Aluminum Hydroxide-Mag Trisil (Gaviscon), 2 TABS PO TID PRN for Dyspepsia Clonazepam (Klonopin), 0.5 MG PO TID PRN for Anxiety/Agitation Ondansetron Hcl (Zofran), 4 MG PO Q6H PRN for Nausea Promethazine (Phenergan Suppository), 25 MG IA Q6H PRN for Nausea Allergies Coded Allergies: Amoxicillin (Verified Adverse Reaction, Intermediate, yeast infection, ) NSAIDs (Verified Adverse Reaction, Mild, indegestion, 09/12/17) Rofecoxib (Verified Adverse Reaction, Mild, indigestion, 09/12/17) Scopolamine (Verified Adverse Reaction, Mild, rash from patch, 09/12/17) Physical Exam Vital Signs Date Time Temp Pulse Resp B/P (MAP) Pulse Ox O2 Delivery O2 Flow Rate FiO2 10/12/17 14:27 64 18 147/98 100 Room Air 10/12/17 13:45 67 18 144/103 100 Room Air 10/12/17 12:01 36.7 69 16 147/95 99 Room Air Physical Exam General: Non-ill appearing older female, Dry heaving, holding a vomit bag. HEENT: Normal cephalic atraumatic. Pupils are equal round and reactive to light. Extraocular movements are intact. Oropharynx is pink with moist mucous membranes. No swelling of the mouth lips or tongue. Neck: Supple with a midline trachea. No meningeal signs or stiffness, no JVD or bruits. No Stridor. Chest: There is an aport in the right chest that has been accessed. Clear to auscultation bilaterally. No wheezes or rhonchi. No increased work of breathing. Heart: regular rate and rhythm. Abdomen: Soft and mildly tender without peritonitis, nondistended without rebound guarding or rigidity. Extremities: No cyanosis clubbing or edema. No calf tenderness or assymetry Spine/Back. Non tender to palpation. No CVA tenderness Skin: Good turgor without rashes. Neurologic exam: Cranial nerves two through 12 are intact. Motor and sensation are intact and symmetrical throughout. Medical Decision & Procedures Laboratory Results 10/12/17 13:20 Red Blood Count 4.40, Mean Corpuscular Volume 79.8, Mean Corpuscular Hemoglobin 26.8, Mean Corpuscular Hemoglobin Concent 33.6, Mean Platelet Volume 9.3, Neutrophils (%) (Auto) 80.4, Lymphocytes (%) (Auto) 13.5, Monocytes (%) (Auto) 5.6, Eosinophils (%) (Auto) 0.2, Basophils (%) (Auto) 0.2, Neutrophils # (Auto) 6.61, Lymphocytes # (Auto) 1.11, Monocytes # (Auto) 0.46, Eosinophils # (Auto) 0.02, Basophils # (Auto) 0.02 10/12/17 13:20 Test 10/12/17 13:20 White Blood Count 8.23 K/uL (4.8-10.8) Red Blood Count 4.40 M/uL (4.2-5.4) Hemoglobin 11.8 g/dL (12.0-16.0) Hematocrit 35.1 % (37-47) Mean Corpuscular Volume 79.8 fL (80-100) Mean Corpuscular Hemoglobin 26.8 pg (25-34) Mean Corpuscular Hemoglobin Concent 33.6 g/dl (32-36) Platelet Count 319 K/uL (130-400) Mean Platelet Volume 9.3 fL (7.4-10.4) Neutrophils (%) (Auto) 80.4 % Lymphocytes (%) (Auto) 13.5 % Monocytes (%) (Auto) 5.6 % Eosinophils (%) (Auto) 0.2 % Basophils (%) (Auto) 0.2 % Neutrophils # (Auto) 6.61 K/uL (1.4-6.5) Lymphocytes # (Auto) 1.11 K/uL (1.2-3.4) Monocytes # (Auto) 0.46 K/uL (0.11-0.59) Eosinophils # (Auto) 0.02 K/uL (0-0.5) Basophils # (Auto) 0.02 K/uL (0-0.2) RDW Standard Deviation 50.4 fL (36.4-46.3) RDW Coefficient of Variation 17.4 % (11.5-14.5) Immature Granulocyte % (Auto) 0.1 % Immature Granulocyte # (Auto) 0.01 K/uL (0.00-0.02) Anion Gap 9.0 mmol/L (3-11) Est Creatinine Clear Calc Drug Dose 60.5 ml/min Estimated GFR () 79.0 Estimated GFR (Non- 68.2 BUN/Creatinine Ratio 12.3 (10-20) Calcium Level 9.0 mg/dl (8.5-10.1) Total Bilirubin 0.5 mg/dl (0.2-1) Aspartate Amino Transf (AST/SGOT) 14 U/L (15-37) Alanine Aminotransferase (ALT/SGPT) 12 U/L (12-78) Alkaline Phosphatase 97 U/L (45-117) Troponin I < 0.015 ng/ml (0-0.045) Total Protein 7.5 gm/dl (6.4-8.2) Albumin 3.6 gm/dl (3.4-5.0) Globulin 3.9 gm/dl (2.5-4.0) Albumin/Globulin Ratio 0.9 (0.9-2) Lipase 117 U/L (73-393) Laboratory studies as stated above per my review. Medications Administered Medications (Trade) Dose Ordered Sig/Marisol Route Start Time Stop Time Status Last Admin Dose Admin Ondansetron HCl (Zofran Inj) 4 mg NOW STAT IV 10/12/17 13:05 10/12/17 13:07 DC 10/12/17 13:37 4 MG Diphenhydramine HCl (Benadryl Inj) 25 mg NOW STAT IV 10/12/17 13:33 10/12/17 13:35 DC 10/12/17 13:45 25 MG Morphine Sulfate (MoRPHine SULFATE INJ) 4 mg NOW STAT IV 10/12/17 13:33 10/12/17 13:35 DC 10/12/17 13:45 4 MG ECG Indication: nausea, vomiting Rate (beats per minute): 68 Rhythm: normal sinus Findings: no acute ischemic change, no ectopy, other (No significant prolongation of QT) Comparison ECG Date: 08/08/2017 Change: no significant change Change: Patient's electrocardiogram interpreted by me. ED Course 1305: Ordered Zofran 4 mg IV. 1323: Past medical records reviewed. The patient was evaluated in room A12, and a complete history and physical examination were performed. 1333: Ordered Morphine Sulfate 4 mg IV, Benadryl 25 mg IV. 1437: Ordered Promethazine HCl 51 mL @ 204 mL/hr IV. 1420: I checked on the patient at this time she does not feel any better. She agrees to admission. 1423: I discussed the case with Georgia Valdez PA-C she will evaluate the patient for further treatment. 1438: Ordered Sodium Chloride 1000 mL @ 999 mL/hr IV. Medical Decision Differential Diagnosis includes; gastroparesis, infection, cardiac disease, pancreatitis, and electrolyte or metabolic abnormality. This patient comes in as described above. She was placed in room a 12. She has a long history gastroparesis. She started feeling ill this morning and tried multiple antipyretics at home. I reviewed her old records. A port was accessed and she was hydrated with IV normal saline. Multiple blood testing was obtained. She has no acute electrolyte or metabolic abnormality she has nothing to suggest acute coronary disease. Despite receiving IV morphine as well as IV Zofran and IV Benadryl she still felt very nauseated she was given IV Phenergan. Looking through her chart as well as talked to the patient she typically gets admitted/observed when she has severe gastroparesis. I have consulted the [facility] hospitalist to see her in the ER. Blood Pressure Screening Patient's blood pressure: Elevated blood pressure Consults Time Called: 1420 Consulting Physician: Georgia Valdez PA-C Returned Call: 1427 I discussed the case with Georgia Valdez PA-C she will evaluate the patient for further treatment. Impression Primary Impression: Gastroparesis Additional Impressions: Nausea Vomiting Scribe Attestation The scribe's documentation has been prepared under my direction and personally reviewed by me in its entirety. I confirm that the note above accurately reflects all work, treatment, procedures, and medical decision making performed by me. Departure Information Dispostion Being Evaluated By Hospitalist Referrals No Doctor, Assigned (PCP) Patient Instructions My [facility] Problem Qualifiers
[2017-10-12 14:05] LABS: ALBUMIN 3.6 gm/dl (3.4-5.0); CREATININE 0.92 mg/dl (0.60-1.20); POTASSIUM 3.7 mmol/L (3.5-5.1)
[2017-10-12 14:14] LABS: TOTAL PROTEIN 7.5 gm/dl (6.4-8.2)
[2017-10-12] MEDS ORDERED: PROMETHAZINE HCL INJ 25 MG in SODIUM CHLORIDE 0.9% 50ML 50 ML IV STA (14:37)
[2017-10-12] MEDS ORDERED: SODIUM CHLORIDE 0.9% 1000ML 1,000 ML IV STA (14:38)
[2017-10-12] MEDS ORDERED: ALUMINUM/MAGNESIUM/SIMETH (MAALOX MAX) 30 ML UDC PO PRN (15:30)
[2017-10-12] MEDS ORDERED: ALBUTEROL 0.083% NEBU SOLN 3 ML VIAL INH PRN (15:30)
[2017-10-12] MEDS ORDERED: ALUM HYDROX/MAG TRISILICATE CHEW PO PRN (16:00)
[2017-10-12] MEDS ORDERED: IV FLUIDS COMPLETED PRN (16:15)
--- NOTE | 2017-10-12 16:25 | HISTORY & PHYSICAL EXAMINATION ---
DATE OF ADMISSION: 10/12/2017 CHIEF COMPLAINT: Nausea, vomiting, abdominal pain. HISTORY OF PRESENT ILLNESS: This is a 57-year-old female with past medical history significant for gastroparesis with recurrent admissions for gastroparesis, history of anxiety, asthma, COPD, depression, GERD, hyperlipidemia, hypothyroidism, mitral regurgitation,Generalized anxiety disorder pemphigus vulgaris, chronic PACs and PVCs, history of tobacco abuse; comes with nausea and vomiting starting today morning, several episodes of vomiting, also has diarrhea. She was admitted for similar problems frequently, thought to be secondary to gastroparesis. Currently hemodynamically stable. Denies any headaches. No dizziness, no blurred vision. Has some cough. No sore throat. No difficulty swallowing. No runny nose. No earache. No chest pain. No shortness of breath. No abdominal pain. Not eating because of nausea and vomiting. Says no blood in the stools. Normal bladder movements. No burning micturition. The patient also says that she fell a few days back and sprained her ankle and there is some bruising and swelling of the left ankle, did not see any doctor for that. ALLERGIES: AMOXICILLIN, NSAIDS, ROFECOXIB, SCOPOLAMINE. PAST MEDICAL HISTORY: As mentioned above. PAST SURGICAL HISTORY: EGD with treatment to distal esophagus, GE junction and cardia; ; history of oophorectomy; history of hysterectomy; history of bladder surgery; history of laparoscopic sleeve gastrectomy; status post partial gastrectomy; status post repair of paraesophageal hernia; status post tonsillectomy and adenoidectomy. MEDICATIONS: The patient currently on Klonopin 0.5 mg p.o. t.i.d. p.r.n., Emend 150 mg intravenously every month, Lanoxin 125 mcg p.o. daily, vitamin D 50,000 units once a week, Lexapro 20 mg p.o. daily, levothyroxine 75 mcg p.o. daily, Dexilant 30 mg p.o. daily, Reglan 10 mg p.o. t.i.d. with meals, Phenergan 25 mg suppository every 6 hours p.r.n., Pepcid 40 mg p.o. b.i.d., aluminium hydroxide -Mag Trisilicate 2 capsules p.o. t.i.d. p.r.n., albuterol nebulization every 4 hours p.r.n. pain, multivitamins 1 tablet daily, vitamin B12 1000 mcg monthly. FAMILY HISTORY: Significant for father had thyroid disease, heart disorder and aneurysm; at the age of 61. Mother had arthritis, diabetes and heart disorder; and at the age of 65. Sister has GERD. Brother has seasonal allergies. SOCIAL HISTORY: Smokes half pack a day for last 20 years. Alcohol socially. No drug use. . REVIEW OF SYSTEMS: As per HPI. Rest of review of systems negative. PHYSICAL EXAMINATION: GENERAL: The patient is of moderate build, not in distress. VITAL SIGNS: Temperature 36.7, pulse 69, respiratory rate 16, blood pressure 147/98, oxygen 100% on room air. HEENT: No pallor, no icterus. Pupils equal, round and reactive to light. NECK: No JVD, no neck masses, no carotid bruits. CARDIOVASCULAR: S1, S2 heard. Regular rate and rhythm. No murmur, no gallop. RESPIRATORY SYSTEM: Normal AP diameter. No accessory muscle use. No wheezing, no crackles. ABDOMEN: Soft, bowel sounds present. Diffuse mild tenderness, more in the epigastric region. No guarding. No distention. CENTRAL NERVOUS SYSTEM: Cranial nerves II-XII grossly intact. Nonfocal. EXTREMITIES: No erythema seen in the right and left ankle is swollen and somewhat tender and bruises seen. LABORATORY DATA: WBC 8.2, hemoglobin 11.8, hematocrit 35.1, platelets 319. Sodium 138, potassium 3.7, chloride 107, bicarbonate 27, BUN 11, creatinine 0.9, serum glucose 126, calcium 9, total bilirubin 0.5, AST 14, ALT 22, alkaline phosphatase 97. Troponin I less than 0.015. Lipase 117. EKG: Shows normal sinus rhythm with rate of 68. Nonspecific T-wave abnormality in inferior leads. ASSESSMENT AND PLAN: This is a 57-year-old female who presents with gastroparesis flare. 1. Nausea, vomiting, diarrhea, history of gastroparesis possible flare. We will continue home Reglan, IV; IV Zofran, IV Phenergan, p.r.n. N.p.o. except meds, IV fluids, monitor and observe on the medical floor. Consult GI for further recommendations. 2. History of anxiety and depression. Continue Lexapro and Klonopin p.r.n. 3. Hypothyroidism. Continue Synthroid. 4. Gastroesophageal reflux disease: Continue patient on IV Zantac. 5. History of asthma and chronic obstructive pulmonary disease. Continue albuterol p.r.n. Currently stable. 6. Deep venous thrombosis prophylaxis. Sequential compression devices and TEDs for now. 7. Disposition: Observation on medical floor. Expect to discharge home and follow with her family doctor. Level 1 full code. MTDD
[2017-10-12 17:01] VITALS: BP 165/109; PULSE 71; TEMP 36.4; O2SAT 98
[2017-10-12] MEDS ORDERED: D5NSS + 20MEQ KCL 1,000 ML IV SCH (17:30)
[2017-10-12 17:43] VITALS: BP 165/109; PULSE 71; TEMP 36.4; Ht 167.6 cm; Wt 66.5 kg
--- NOTE | 2017-10-12 17:53 | DIAGNOSTIC IMAGING REPORT ---
LEFT ANKLE 3 VIEWS CLINICAL HISTORY: Left ankle sprain. FINDINGS: 3 port views of the left ankle are obtained. No prior studies are available for comparison at the time of dictation. The skeletal structures are osteopenic. No distracted fracture is seen. There is an indeterminate lucency within the lateral malleolus, best seen on the oblique view. The ankle mortise is intact. There are dorsal and plantar calcaneal enthesophytes. Mild degenerative spurring is seen along the anterior aspect of the tibial plafonds. There is a joint effusion. Soft tissue edema is present on the ankle. IMPRESSION: 1. Soft tissue swelling and joint effusion. No distracted fracture is seen. 2. There is an indeterminate lucency within the lateral malleolus seen only on the oblique view. Nondistracted fracture is not excluded. Correlate for point tenderness. Electronically signed by: Bayron Tillman M.D. 10/12/2017 5:51 PM Dictated Date/Time: 10/12/2017 5:49 PM
[2017-10-12] MEDS: RANITIDINE IV 50 MG in DEXTROSE 5% 100ML 100 ML IV SCH (18:12)
[2017-10-12] MEDS: METOCLOPRAMIDE HCL INJ 5 MG/ML 2 ML VIAL IV. SCH (20:08)
[2017-10-12] MEDS: DIGOXIN 0.125 MG TAB PO SCH (20:09)
[2017-10-12] MEDS: PRENATAL VITAMIN TAB PO SCH (20:10)
[2017-10-12] MEDS: ESCITALOPRAM OXALATE 20 MG TAB PO SCH (20:10)
[2017-10-12] MEDS: ONDANSETRON INJ 2 MG/ML 2 ML VIAL IV PRN (20:10)
[2017-10-12] MEDS: ACETAMINOPHEN 325 MG TAB PO PRN (20:20)
[2017-10-12] MEDS: D5NSS + 20MEQ KCL 1,000 ML IV SCH (21:11)
[2017-10-12 23:32] VITALS: BP 108/72; PULSE 62; TEMP 36.8; O2SAT 95
[2017-10-13] MEDS: RANITIDINE IV 50 MG in DEXTROSE 5% 100ML 100 ML IV SCH ×3 (02:15→17:43)
[2017-10-13] MEDS: PROMETHAZINE HCL INJ 12.5 MG in SODIUM CHLORIDE 0.9% 50ML 50 ML IV PRN ×4 (03:28→22:17)
[2017-10-13] MEDS: LEVOTHYROXINE 75 MCG TAB PO SCH (05:44)
[2017-10-13 06:00] LABS: BASO % 0.2 %; BASO ABS # 0.01 K/uL (0-0.2); EOS % 0.2 %; EOS ABS # 0.01 K/uL (0-0.5); HEMATOCRIT 30.9 % (37-47); HEMOGLOBIN 9.9 g/dL (12.0-16.0); IG# 0.01 K/uL (0.00-0.02); LYMPH % 29.5 %; LYMPH ABS # 1.71 K/uL (1.2-3.4); MEAN CELL VOLUME 80.7 fL (80-100); MEAN CORPUSCULAR HEMOGLOBIN 25.8 pg (25-34); MEAN PLATELET VOLUME 9.6 fL (7.4-10.4); MONO % 10.5 %; MONO ABS # 0.61 K/uL (0.11-0.59); NEUT % 59.4 %; NEUT ABS # 3.44 K/uL (1.4-6.5); PLATELET COUNT 281 K/uL (130-400); RED CELL DISTRIBUTION WIDTH CV 17.5 % (11.5-14.5); RED CELL DISTRIBUTION WIDTH SD 51.6 fL (36.4-46.3); WHITE BLOOD COUNT 5.79 K/uL (4.8-10.8)
[2017-10-13 06:25] LABS: CALCIUM 8.5 mg/dl (8.5-10.1); CREATININE 0.74 mg/dl (0.60-1.20); POTASSIUM 3.7 mmol/L (3.5-5.1)
[2017-10-13 07:20] VITALS: BP 118/76; PULSE 59; TEMP 36.8; O2SAT 98
[2017-10-13 08:00] VITALS: O2SAT 98
[2017-10-13] MEDS: D5NSS + 20MEQ KCL 1,000 ML IV SCH (08:26)
[2017-10-13] MEDS: ONDANSETRON INJ 2 MG/ML 2 ML VIAL IV PRN ×2 (08:27→20:46)
[2017-10-13] MEDS: METOCLOPRAMIDE HCL INJ 5 MG/ML 2 ML VIAL IV. SCH ×3 (08:27→19:35)
[2017-10-13] MEDS: CLONAZEPAM 0.5 MG TAB PO PRN ×2 (11:16→22:54)
[2017-10-13] MEDS ORDERED: PROCHLORPERAZINE INJ 5 MG in SYRINGE 4 ML IV STA (11:49)
[2017-10-13] MEDS ORDERED: MoRPHine SULFATE 2 MG/ML CARP IV STA (12:14)
[2017-10-13] MEDS ORDERED: FOSAPREPITANT DIMEGLUMINE INJ 115 MG in SODIUM CHLORIDE 0.9% 100ML 111.2 ML IV ONE (12:15)
[2017-10-13] MEDS ORDERED: FOSAPREPITANT DIMEGLUMINE INJ 150 MG in SODIUM CHLORIDE 0.9% 150ML 145 ML IV ONE (12:45)
--- NOTE | 2017-10-13 13:08 | Gastrointestinal Consultation ---
Gastrointestinal Consultation Date of Consultation: Oct 13, 2017 Attending Physician: Lissette Juan Consulting Physician: History of Present Illness Patient is a 57 year old female with a complex gastroparesis and recurrent admissions for intermittent relapses in symptoms, recently started on Emend, Hx of Sleeve gastrectomy, Asthma, Depression, GERD s/p Fan fundoplication, hyperlipidemia, hypothyroidism, mitral regurgitation, pemphigus vulgaris, presented with worsening nausea hence admitted. No vomiting, abdominal pain, diarrhea or rectal bleeding. She regular bowel movements. Past Medical/Surgical History Medical Problems: (1) Anxiety State Nos Status: Chronic (2) Chronic Obstructive Asthma, Nos Status: Chronic (3) Dehydration Status: Acute (4) Dehydration Status: Acute (5) Dumping syndrome Status: Acute (6) Epigastric abdominal pain Status: Acute (7) Esophagitis Nos Status: Chronic (8) Gastroparesis Status: Chronic (9) Hyperlipidemia Nec/Nos Status: Chronic (10) Hypothyroidism Nos Status: Chronic (11) Intractable nausea and vomiting Status: Acute (12) Intractable nausea and vomiting Status: Acute (13) Intractable nausea and vomiting Status: Acute (14) Intractable nausea and vomiting Status: Acute (15) Intractable vomiting Status: Acute (16) Iron Defic Anemia Nos Status: Chronic (17) Nausea Status: Acute (18) Nausea & vomiting Status: Acute (19) Nausea and vomiting Status: Acute (20) Pernicious Anemia Status: Chronic (21) Vomiting Status: Acute Surgical Problems: (1) S/P repair of paraesophageal hernia Status: Chronic Past Medical History: As above Past Surgical History: PAST SURGICAL HISTORY: EGD with treatment to distal esophagus, GE Oophorectomy; hysterectomy; history of bladder surgery; history of laparoscopic sleeve gastrectomy; tonsillectomy and adenoidectomy. Fundoplication for GERD. Family History Diabetes mellitus MOTHER SISTER FH: aneurysm FH: cancer FH: heart disease FATHER MOTHER Hypertension BROTHER Kidney disease Social History Smoking Status: Former Smoker Alcohol Use: none Drug Use: none Marital Status: single Housing Status: lives alone Occupation Status: disabled Allergies Coded Allergies: Amoxicillin (Verified Adverse Reaction, Intermediate, yeast infection, ) NSAIDs (Verified Adverse Reaction, Mild, indegestion, 09/12/17) Rofecoxib (Verified Adverse Reaction, Mild, indigestion, 09/12/17) Scopolamine (Verified Adverse Reaction, Mild, rash from patch, 09/12/17) Current Medications Home Meds and Scripts Medications Dose Route/Sig Max Daily Dose Days Date Category Pantoprazole Sodium (Pantoprazole) 40 Mg Tab 40 Mg PO BID 30 08/09/17 Rx Proventil 0.083% 2.5MG/3ML (Albuterol Sulf) 2.5 Mg/3 Ml Nebu 3 Ml INH Q4H PRN 08/08/17 Reported Reglan (Metoclopramide HCl) 10 Mg Tab 10 Mg PO TIDM 08/08/17 Reported Lexapro (Escitalopram Oxalate) 20 Mg Tab 20 Mg PO HS 08/08/17 Reported [Vitamin B Injection] 1 Mg SQ MONTHLY 08/06/17 Reported Vitamin D 56268 Unit (Ergocalciferol) 50,000 Unit Cap 1 Cap PO EVERY OTHER WEEK 28 08/06/17 Reported Phenergan Suppository (Promethazine HCl) 25 Mg Supp 25 Mg [place] Q6H PRN 06/15/17 Reported Pepcid (Famotidine) 40 Mg Tab 40 Mg PO BID 04/15/17 Reported Digoxin 0.125 Mg Tab 0.125 Mg PO QPM 11/02/16 Reported And Iron ( Multivit-Min W/Fe-Fa) 1 Tab Tab 1 Tab PO QPM 11/02/16 Reported Emend (Fosaprepitant Dimeglumine) 150 Mg Rosalia 150 Mg IV MONTHLY 10/06/16 Reported Gaviscon (Aluminum Hydroxide-Mag Trisil) 1 Chw Chw 2 Tabs PO TID PRN 08/23/16 Reported Zofran (Ondansetron HCl) 4 Mg Tab 4 Mg PO Q6H PRN 07/25/15 Reported Klonopin (Clonazepam) 0.5 Mg Tab 0.5 Mg PO TID PRN 06/22/14 Reported Levothyroxine Sodium 75 Mcg Tab 75 Mcg PO QAM 10/31/13 Reported Review of Systems Constitutional: No fever, No chills Eyes: No worsening of vision, No eye pain ENT: No hearing loss, No unusual epistaxis Respiratory: No cough, No sputum Cardiac: No chest pain, No orthopnea Abdomen: + see HPI Musculoskeletal: No joint pain, No muscle pain Female : No dysuria, No urinary frequency Neuro: No weakness, No vertigo Endo: No fatigue Skin: No rash, No itch Physical Exam Date Time Temp Pulse Resp B/P (MAP) Pulse Ox O2 Delivery O2 Flow Rate FiO2 10/13/17 08:00 98 Room Air 10/13/17 07:20 36.8 59 18 118/76 (90) 98 Room Air 10/13/17 00:00 Room Air 10/12/17 23:32 36.8 62 18 108/72 (84) 95 Room Air 10/12/17 20:09 84 10/12/17 17:43 36.4 71 16 165/109 Room Air 10/12/17 17:01 36.4 71 16 165/109 (127) 98 10/12/17 16:42 75 18 169/110 97 10/12/17 16:34 75 18 169/110 97 Room Air 10/12/17 15:23 69 16 162/102 99 Room Air 10/12/17 14:27 64 18 147/98 100 Room Air 10/12/17 13:45 67 18 144/103 100 Room Air General Appearance: no apparent distress Eyes: PERRL, EOMI ENT: hearing grossly normal Neck: supple, no JVD Respiratory/Chest: lungs clear, normal breath sounds Cardiovascular: regular rate, rhythm, no edema Abdomen: normal bowel sounds, non tender, soft Neurologic/Psych: alert, oriented x 3 Laboratory Results Last 24 Hours Test 10/12/17 13:20 10/12/17 17:18 10/13/17 04:53 White Blood Count 8.23 K/uL 5.79 K/uL Red Blood Count 4.40 M/uL 3.83 M/uL Hemoglobin 11.8 g/dL 9.9 g/dL Hematocrit 35.1 % 30.9 % Mean Corpuscular Volume 79.8 fL 80.7 fL Mean Corpuscular Hemoglobin 26.8 pg 25.8 pg Mean Corpuscular Hemoglobin Concent 33.6 g/dl 32.0 g/dl Platelet Count 319 K/uL 281 K/uL Mean Platelet Volume 9.3 fL 9.6 fL Neutrophils (%) (Auto) 80.4 % 59.4 % Lymphocytes (%) (Auto) 13.5 % 29.5 % Monocytes (%) (Auto) 5.6 % 10.5 % Eosinophils (%) (Auto) 0.2 % 0.2 % Basophils (%) (Auto) 0.2 % 0.2 % Neutrophils # (Auto) 6.61 K/uL 3.44 K/uL Lymphocytes # (Auto) 1.11 K/uL 1.71 K/uL Monocytes # (Auto) 0.46 K/uL 0.61 K/uL Eosinophils # (Auto) 0.02 K/uL 0.01 K/uL Basophils # (Auto) 0.02 K/uL 0.01 K/uL RDW Standard Deviation 50.4 fL 51.6 fL RDW Coefficient of Variation 17.4 % 17.5 % Immature Granulocyte % (Auto) 0.1 % 0.2 % Immature Granulocyte # (Auto) 0.01 K/uL 0.01 K/uL Sodium Level 138 mmol/L 142 mmol/L Potassium Level 3.7 mmol/L 3.7 mmol/L Chloride Level 107 mmol/L 109 mmol/L Carbon Dioxide Level 22 mmol/L 26 mmol/L Anion Gap 9.0 mmol/L 8.0 mmol/L Blood Urea Nitrogen 11 mg/dl 8 mg/dl Creatinine 0.92 mg/dl 0.74 mg/dl Est Creatinine Clear Calc Drug Dose 60.5 ml/min 76.6 ml/min Estimated GFR () 79.0 102.8 Estimated GFR (Non- 68.2 88.7 BUN/Creatinine Ratio 12.3 11.1 Random Glucose 126 mg/dl 96 mg/dl Calcium Level 9.0 mg/dl 8.5 mg/dl Total Bilirubin 0.5 mg/dl Aspartate Amino Transf (AST/SGOT) 14 U/L Alanine Aminotransferase (ALT/SGPT) 12 U/L Alkaline Phosphatase 97 U/L Troponin I < 0.015 ng/ml Total Protein 7.5 gm/dl Albumin 3.6 gm/dl Globulin 3.9 gm/dl Albumin/Globulin Ratio 0.9 Lipase 117 U/L Urine Color ORANGE Urine Appearance CLEAR Urine pH 5.0 Urine Specific Springer 1.015 Urine Protein NEG Urine Glucose (UA) TRACE Urine Ketones 1+ Urine Occult Blood TRACE Urine Nitrite NEG Urine Bilirubin NEG Urine Urobilinogen NEG Urine Leukocyte Esterase NEG Urine WBC (Auto) 0 /hpf Urine RBC (Auto) 0-4 /hpf Urine Hyaline Casts (Auto) 0 /lpf Urine Epithelial Cells (Auto) 5-10 /lpf Urine Bacteria (Auto) NEG Magnesium Level 2.1 mg/dl Impression Patient is a 57 year old female gastroparesis on Emend, admitted with worsening nausea, no abdominal pain or vomiting. She was started on IV hydration and meds and today feels significantly better. Her Emend dose is scheduled for Sunday. No clinical evidence of bowel obstruction. Plan Can give her Emend now. PPI Reglan TID Resume home meds. Diet as tolerated. Small, frequent meals.
[2017-10-13 15:39] VITALS: BP 168/102; PULSE 69; TEMP 36.7; O2SAT 98
[2017-10-13] MEDS ORDERED: HYDROmorphone INJ 1 MG/ML SYR IV STA (16:42)
--- NOTE | 2017-10-13 18:04 | Progress Note ---
Subjective Date of Service: Oct 13, 2017. Subjective Pt evaluation today including: conversation w/ patient, physical exam, lab review, review of studies, review of inpatient medication list Saw/examined the patient in room 407 +nauseous, dry heaving no vomiting c/o pain in the epigastric and back region Problem List Medical Problems: (1) Anxiety State Nos Status: Chronic (2) Chronic Obstructive Asthma, Nos Status: Chronic (3) Dehydration Status: Acute (4) Dehydration Status: Acute (5) Dumping syndrome Status: Acute (6) Epigastric abdominal pain Status: Acute (7) Esophagitis Nos Status: Chronic (8) Gastroparesis Status: Chronic (9) Hyperlipidemia Nec/Nos Status: Chronic (10) Hypothyroidism Nos Status: Chronic (11) Intractable nausea and vomiting Status: Acute (12) Intractable nausea and vomiting Status: Acute (13) Intractable nausea and vomiting Status: Acute (14) Intractable nausea and vomiting Status: Acute (15) Intractable vomiting Status: Acute (16) Iron Defic Anemia Nos Status: Chronic (17) Nausea Status: Acute (18) Nausea & vomiting Status: Acute (19) Nausea and vomiting Status: Acute (20) Pernicious Anemia Status: Chronic (21) Vomiting Status: Acute Surgical Problems: (1) S/P repair of paraesophageal hernia Status: Chronic Review of Systems Respiratory: No shortness of breath Cardiac: No chest pain Abdomen: + pain, + nausea, No vomiting, No diarrhea, No constipation, No GI bleeding Musculoskeletal: + joint pain Medications Current Inpatient Medications Medications (Trade) Dose Ordered Sig/Marisol Route Start Time Stop Time Status Last Admin Dose Admin Acetaminophen (Tylenol Tab) 650 mg Q4H PRN PO 10/12/17 15:30 11/11/17 15:29 10/12/17 20:20 650 MG Al Hydrox/Mg Hydrox/Simethicone (Maalox Max Susp) 15 ml Q4H PRN PO 10/12/17 15:30 11/11/17 15:29 10/12/17 17:15 15 ML Ondansetron HCl (Zofran Inj) 4 mg Q6H PRN IV 10/12/17 15:30 11/11/17 15:29 10/13/17 08:27 4 MG Albuterol Sulfate (Ventolin 0.083% 2.5MG/3ML Neb) 2.5 mg Q4H PRN INH 10/12/17 15:30 11/11/17 15:29 Clonazepam (Klonopin Tab) 0.5 mg TID PRN PO 10/12/17 15:30 11/11/17 15:29 10/13/17 11:16 0.5 MG Digoxin (Lanoxin Tab) 0.125 mg QPM PO 10/12/17 21:00 11/11/17 20:59 10/12/17 20:09 0.125 MG Escitalopram Oxalate (Lexapro Tab) 20 mg HS PO 10/12/17 21:00 11/11/17 20:59 10/12/17 20:10 20 MG Levothyroxine Sodium (Synthroid Tab) 75 mcg DAILYBB PO 10/13/17 06:30 11/12/17 06:59 10/13/17 05:44 75 MCG Al Hydroxide/Mg Trisilicate (Gaviscon Chew Tab) 2 tab TID PRN PO 10/12/17 16:00 11/11/17 15:59 10/13/17 12:37 2 TAB Prenat Multivit/ [place]/Iron/Folic Ac ( Vitamin Tab) 1 tab QPM PO 10/12/17 21:00 11/11/17 20:59 10/12/17 20:10 1 TAB Promethazine HCl 12.5 mg/Sodium Chloride 50.5 ml @ 204 mls/hr Q6H PRN IV 10/12/17 15:30 11/11/17 15:29 10/13/17 16:39 204 MLS/HR Ranitidine HCl 50 mg/Dextrose 102 ml @ 200 mls/hr Q8H IV 10/12/17 18:00 11/11/17 17:59 10/13/17 17:43 200 MLS/HR Metoclopramide HCl (Reglan Inj) 10 mg TID IV. 10/12/17 20:00 11/11/17 20:59 10/13/17 14:23 10 MG Miscellaneous (Iv Fluids Completed) 1 ea PRN PRN N/A 10/12/17 16:15 10/12/18 16:14 Potassium Chloride/Dextrose/ Sod Cl 1,000 ml @ 60 mls/hr [id number] IV 10/12/17 21:30 11/11/17 21:29 10/13/17 08:26 60 MLS/HR Heparin Sodium (Porcine) (Heparin 100 Unit/ml 5ml Flush) 5 ml PRN PRN IV 10/13/17 00:45 11/12/17 00:44 Objective Vital Signs Date Time Temp Pulse Resp B/P (MAP) Pulse Ox O2 Delivery O2 Flow Rate FiO2 10/13/17 15:39 36.7 69 18 168/102 (124) 98 Room Air 10/13/17 08:00 98 Room Air 10/13/17 07:20 36.8 59 18 118/76 (90) 98 Room Air 10/13/17 00:00 Room Air 10/12/17 23:32 36.8 62 18 108/72 (84) 95 Room Air 10/12/17 20:09 84 Physical Exam General Appearance: + moderate distress Respiratory/Chest: no respiratory distress, no accessory muscle use Abdomen: + guarding, + tenderness Laboratory Results Last 24 Hours Test 10/13/17 04:53 White Blood Count 5.79 K/uL Red Blood Count 3.83 M/uL Hemoglobin 9.9 g/dL Hematocrit 30.9 % Mean Corpuscular Volume 80.7 fL Mean Corpuscular Hemoglobin 25.8 pg Mean Corpuscular Hemoglobin Concent 32.0 g/dl Platelet Count 281 K/uL Mean Platelet Volume 9.6 fL Neutrophils (%) (Auto) 59.4 % Lymphocytes (%) (Auto) 29.5 % Monocytes (%) (Auto) 10.5 % Eosinophils (%) (Auto) 0.2 % Basophils (%) (Auto) 0.2 % Neutrophils # (Auto) 3.44 K/uL Lymphocytes # (Auto) 1.71 K/uL Monocytes # (Auto) 0.61 K/uL Eosinophils # (Auto) 0.01 K/uL Basophils # (Auto) 0.01 K/uL RDW Standard Deviation 51.6 fL RDW Coefficient of Variation 17.5 % Immature Granulocyte % (Auto) 0.2 % Immature Granulocyte # (Auto) 0.01 K/uL Sodium Level 142 mmol/L Potassium Level 3.7 mmol/L Chloride Level 109 mmol/L Carbon Dioxide Level 26 mmol/L Anion Gap 8.0 mmol/L Blood Urea Nitrogen 8 mg/dl Creatinine 0.74 mg/dl Est Creatinine Clear Calc Drug Dose 76.6 ml/min Estimated GFR () 102.8 Estimated GFR (Non- 88.7 BUN/Creatinine Ratio 11.1 Random Glucose 96 mg/dl Calcium Level 8.5 mg/dl Magnesium Level 2.1 mg/dl Assessment and Plan This is a 57 year old female with a PMH of multiple abdominal surgeries, significant and recurrent gastroparesis, hypothyroid, anxiety/depression, COPD - presents with worsening nausea Nausea secondary to Gastroparesis patient has had multiple admissions for gastroparesis have tried a combination of Reglan, Zofran, Phenergan with no help she gets monthly Emend injections - was due for this on Sunday, October 15 will give a dose now appreciate GI input continue IVFs and monitor electrolytes Anxiety/Depression continue home medications Hypothyroidism continue home medications GERD continue Zantac COPD stable, continue current medications Hx. of multiple PACs, PVCs continue digoxin DVT ppx SCDs FULL CODE
[2017-10-13] MEDS: DIGOXIN 0.125 MG TAB PO SCH (20:49)
[2017-10-13] MEDS: PRENATAL VITAMIN TAB PO SCH (20:50)
[2017-10-13] MEDS: ESCITALOPRAM OXALATE 20 MG TAB PO SCH (20:50)
[2017-10-13] MEDS: ACETAMINOPHEN 325 MG TAB PO PRN (22:52)
[2017-10-13 23:12] VITALS: BP 157/107; PULSE 70; TEMP 36.8; O2SAT 97
[2017-10-14] MEDS: RANITIDINE IV 50 MG in DEXTROSE 5% 100ML 100 ML IV SCH ×2 (02:12→10:14)
[2017-10-14] MEDS: D5NSS + 20MEQ KCL 1,000 ML IV SCH (02:13)
[2017-10-14 06:32] LABS: BASO % 0.3 %; BASO ABS # 0.02 K/uL (0-0.2); EOS % 0.5 %; EOS ABS # 0.03 K/uL (0-0.5); HEMATOCRIT 32.4 % (37-47); HEMOGLOBIN 10.3 g/dL (12.0-16.0); IG# 0.01 K/uL (0.00-0.02); LYMPH % 34.4 %; LYMPH ABS # 2.28 K/uL (1.2-3.4); MEAN CELL VOLUME 81.4 fL (80-100); MEAN CORPUSCULAR HEMOGLOBIN 25.9 pg (25-34); MEAN CORPUSCULAR HGB CONC 31.8 g/dl (32-36); MEAN PLATELET VOLUME 9.6 fL (7.4-10.4); MONO % 9.7 %; MONO ABS # 0.64 K/uL (0.11-0.59); NEUT % 54.9 %; NEUT ABS # 3.64 K/uL (1.4-6.5); PLATELET COUNT 263 K/uL (130-400); RED CELL DISTRIBUTION WIDTH CV 17.2 % (11.5-14.5); RED CELL DISTRIBUTION WIDTH SD 51.8 fL (36.4-46.3); WHITE BLOOD COUNT 6.62 K/uL (4.8-10.8)
[2017-10-14 06:57] LABS: CALCIUM 8.3 mg/dl (8.5-10.1); CREATININE 0.81 mg/dl (0.60-1.20); POTASSIUM 3.5 mmol/L (3.5-5.1)
[2017-10-14 07:42] VITALS: BP 104/69; PULSE 51; TEMP 36.8; O2SAT 97
[2017-10-14 08:00] VITALS: O2SAT 97
[2017-10-14] MEDS: LEVOTHYROXINE 75 MCG TAB PO SCH (10:05)
[2017-10-14] MEDS: METOCLOPRAMIDE HCL INJ 5 MG/ML 2 ML VIAL IV. SCH (10:06)
--- NOTE | 2017-10-14 13:33 | Progress Note ---
Subjective Date of Service: Oct 14, 2017. Subjective Pt evaluation today including: conversation w/ patient, physical exam, lab review, review of studies, review of inpatient medication list Saw/examined the patient in room 407 she is feeling better abdominal pain improved; no nausea/vomiting tolerating clears Problem List Medical Problems: (1) Anxiety State Nos Status: Chronic (2) Chronic Obstructive Asthma, Nos Status: Chronic (3) Dehydration Status: Acute (4) Dehydration Status: Acute (5) Dumping syndrome Status: Acute (6) Epigastric abdominal pain Status: Acute (7) Esophagitis Nos Status: Chronic (8) Gastroparesis Status: Chronic (9) Hyperlipidemia Nec/Nos Status: Chronic (10) Hypothyroidism Nos Status: Chronic (11) Intractable nausea and vomiting Status: Acute (12) Intractable nausea and vomiting Status: Acute (13) Intractable nausea and vomiting Status: Acute (14) Intractable nausea and vomiting Status: Acute (15) Intractable vomiting Status: Acute (16) Iron Defic Anemia Nos Status: Chronic (17) Nausea Status: Acute (18) Nausea & vomiting Status: Acute (19) Nausea and vomiting Status: Acute (20) Pernicious Anemia Status: Chronic (21) Vomiting Status: Acute Surgical Problems: (1) S/P repair of paraesophageal hernia Status: Chronic Review of Systems Respiratory: No shortness of breath Cardiac: No chest pain Abdomen: No pain, No nausea, No vomiting, No diarrhea, No GI bleeding Medications Current Inpatient Medications Medications (Trade) Dose Ordered Sig/Marisol Route Start Time Stop Time Status Last Admin Dose Admin Acetaminophen (Tylenol Tab) 650 mg Q4H PRN PO 10/12/17 15:30 11/11/17 15:29 10/13/17 22:52 650 MG Al Hydrox/Mg Hydrox/Simethicone (Maalox Max Susp) 15 ml Q4H PRN PO 10/12/17 15:30 11/11/17 15:29 10/12/17 17:15 15 ML Ondansetron HCl (Zofran Inj) 4 mg Q6H PRN IV 10/12/17 15:30 11/11/17 15:29 10/13/17 20:46 4 MG Albuterol Sulfate (Ventolin 0.083% 2.5MG/3ML Neb) 2.5 mg Q4H PRN INH 10/12/17 15:30 11/11/17 15:29 Clonazepam (Klonopin Tab) 0.5 mg TID PRN PO 10/12/17 15:30 11/11/17 15:29 10/13/17 22:54 0.5 MG Digoxin (Lanoxin Tab) 0.125 mg QPM PO 10/12/17 21:00 11/11/17 20:59 10/13/17 20:49 0.125 MG Escitalopram Oxalate (Lexapro Tab) 20 mg HS PO 10/12/17 21:00 11/11/17 20:59 10/12/17 20:10 20 MG Levothyroxine Sodium (Synthroid Tab) 75 mcg DAILYBB PO 10/13/17 06:30 11/12/17 06:59 10/14/17 10:05 75 MCG Al Hydroxide/Mg Trisilicate (Gaviscon Chew Tab) 2 tab TID PRN PO 10/12/17 16:00 11/11/17 15:59 10/13/17 12:37 2 TAB Prenat Multivit/ [employer]/Iron/Folic Ac ( Vitamin Tab) 1 tab QPM PO 10/12/17 21:00 11/11/17 20:59 10/12/17 20:10 1 TAB Promethazine HCl 12.5 mg/Sodium Chloride 50.5 ml @ 204 mls/hr Q6H PRN IV 10/12/17 15:30 11/11/17 15:29 10/13/17 22:17 204 MLS/HR Ranitidine HCl 50 mg/Dextrose 102 ml @ 200 mls/hr Q8H IV 10/12/17 18:00 11/11/17 17:59 10/14/17 10:14 200 MLS/HR Metoclopramide HCl (Reglan Inj) 10 mg TID IV. 10/12/17 20:00 11/11/17 20:59 10/14/17 10:06 10 MG Miscellaneous (Iv Fluids Completed) 1 ea PRN PRN N/A 10/12/17 16:15 10/12/18 16:14 Potassium Chloride/Dextrose/ Sod Cl 1,000 ml @ 60 mls/hr [id number] IV 10/12/17 21:30 11/11/17 21:29 10/14/17 02:13 60 MLS/HR Heparin Sodium (Porcine) (Heparin 100 Unit/ml 5ml Flush) 5 ml PRN PRN IV 10/13/17 00:45 11/12/17 00:44 Objective Vital Signs Date Time Temp Pulse Resp B/P (MAP) Pulse Ox O2 Delivery O2 Flow Rate FiO2 10/14/17 08:00 97 Room Air 10/14/17 07:42 36.8 51 18 104/69 (81) 97 Room Air 10/14/17 00:00 Room Air 10/13/17 23:12 36.8 70 18 157/107 (124) 97 Room Air 10/13/17 20:49 63 10/13/17 20:00 Room Air 10/13/17 15:39 36.7 69 18 168/102 (124) 98 Room Air Physical Exam General Appearance: WD/WN, no apparent distress Respiratory/Chest: no respiratory distress, no accessory muscle use, + pertinent finding (+port on R chest wall) Cardiovascular: regular rate, rhythm, no murmur Abdomen: normal bowel sounds, non tender, soft Laboratory Results Last 24 Hours Test 10/14/17 05:37 White Blood Count 6.62 K/uL Red Blood Count 3.98 M/uL Hemoglobin 10.3 g/dL Hematocrit 32.4 % Mean Corpuscular Volume 81.4 fL Mean Corpuscular Hemoglobin 25.9 pg Mean Corpuscular Hemoglobin Concent 31.8 g/dl Platelet Count 263 K/uL Mean Platelet Volume 9.6 fL Neutrophils (%) (Auto) 54.9 % Lymphocytes (%) (Auto) 34.4 % Monocytes (%) (Auto) 9.7 % Eosinophils (%) (Auto) 0.5 % Basophils (%) (Auto) 0.3 % Neutrophils # (Auto) 3.64 K/uL Lymphocytes # (Auto) 2.28 K/uL Monocytes # (Auto) 0.64 K/uL Eosinophils # (Auto) 0.03 K/uL Basophils # (Auto) 0.02 K/uL RDW Standard Deviation 51.8 fL RDW Coefficient of Variation 17.2 % Immature Granulocyte % (Auto) 0.2 % Immature Granulocyte # (Auto) 0.01 K/uL Sodium Level 139 mmol/L Potassium Level 3.5 mmol/L Chloride Level 106 mmol/L Carbon Dioxide Level 28 mmol/L Anion Gap 5.0 mmol/L Blood Urea Nitrogen 8 mg/dl Creatinine 0.81 mg/dl Est Creatinine Clear Calc Drug Dose 70.0 ml/min Estimated GFR () 92.1 Estimated GFR (Non- 79.5 BUN/Creatinine Ratio 9.3 Random Glucose 81 mg/dl Calcium Level 8.3 mg/dl Magnesium Level 2.0 mg/dl Assessment and Plan This is a 57 year old female with a PMH of multiple abdominal surgeries, significant and recurrent gastroparesis, hypothyroid, anxiety/depression, COPD - presents with worsening nausea Nausea secondary to Gastroparesis 10/14 received Emend to have monthly Emend injections as outpatient will d/c home on home meds today outpatient PCP f/u 10/13 patient has had multiple admissions for gastroparesis have tried a combination of Reglan, Zofran, Phenergan with no help she gets monthly Emend injections - was due for this on October 15 will give a dose now appreciate GI input continue IVFs and monitor electrolytes Anxiety/Depression continue home medications Hypothyroidism continue home medications GERD continue Zantac COPD stable, continue current medications Hx. of multiple PACs, PVCs continue digoxin DVT ppx SCDs FULL CODE
--- NOTE | 2017-10-14 13:44 | Discharge Instructions ---
Discharge Instructions Date of Service Oct 14, 2017. Admission Reason for Admission: Nausea, Vomiting Discharge Discharge Diagnosis / Problem: Gastroparesis Discharge Goals Goal(s): Decrease discomfort, Improve function, Diagnostic testing, Therapeutic intervention Activity Recommendations Activity Limitations: resume your previous activity . Instructions / Follow-Up Instructions / Follow-Up Please follow-up with Dr. Coppola on October 16 at 10:45AM Current Hospital Diet Patient's current hospital diet: Clear Liquid Diet Discharge Diet Recommended Diet: Clear Liquid Diet Pending Studies Studies pending at discharge: no Medical Emergencies . Who to Call and When: Medical Emergencies: If at any time you feel your situation is an emergency, please call 911 immediately. . Non-Emergent Contact Non-Emergency issues call your: Primary Care Provider . . "Provider Documentation" section prepared by Adonis Cruz. . VTE Core Measure Inpt VTE Proph given/why not?: SCD's
--- NOTE | 2017-10-14 13:48 | Discharge Summary ---
Discharge Summary Date of Service Oct 14, 2017. Discharge Summary Admission Date: Oct 12, 2017 at 15:30 Discharge Date: Oct 14, 2017 Discharge Disposition: Home Principal Diagnosis: Gastroparesis Medication Reconciliation Continued Medications: Albuterol Sulf (Proventil 0.083% 2.5MG/3ML) 2.5 Mg/3 Ml Nebu 3 ML INH Q4H PRN for Wheezing Aluminum Hydroxide-Mag Trisil (Gaviscon) 1 Chw Chw 2 TABS PO TID PRN for Dyspepsia Clonazepam (Klonopin) 0.5 Mg Tab 0.5 MG PO TID PRN for Anxiety/Agitation Digoxin (Digoxin) 0.125 Mg Tab 0.125 MG PO QPM Ergocalciferol (Vitamin D 59602 Unit) 50,000 Unit Cap 1 CAP PO EVERY OTHER WEEK for 28 Days, #4 CAP 5 Refills Escitalopram Oxalate (Lexapro) 20 Mg Tab 20 MG PO HS, TAB Famotidine (Pepcid) 40 Mg Tab 40 MG PO BID, TAB Fosaprepitant Dimeglumine (Emend) 150 Mg Rosalia 150 MG IV MONTHLY Levothyroxine Sodium (Levothyroxine Sodium) 75 Mcg Tab 75 MCG PO QAM Metoclopramide (Reglan) 10 Mg Tab 10 MG PO TIDM, TAB Ondansetron Hcl (Zofran) 4 Mg Tab 4 MG PO Q6H PRN for Nausea, TAB Pantoprazole (Pantoprazole Sodium) 40 Mg Tab 40 MG PO BID for 30 Days, #60 TAB 0 Refills Multivit-Min W/Fe-Fa ( And Iron) 1 Tab Tab 1 TAB PO QPM Promethazine (Phenergan Suppository) 25 Mg Supp 25 MG LA Q6H PRN for Nausea, #10 SUPP [Vitamin B Injection] () 1 MG SQ MONTHLY Admission Information HPI (per Admitting provider): DATE OF ADMISSION: 10/12/2017 CHIEF COMPLAINT: Nausea, vomiting, abdominal pain. HISTORY OF PRESENT ILLNESS: This is a 57-year-old female with past medical history significant for gastroparesis with recurrent admissions for gastroparesis, history of anxiety, asthma, COPD, depression, GERD, hyperlipidemia, hypothyroidism, mitral regurgitation,Generalized anxiety disorder pemphigus vulgaris, chronic PACs and PVCs, history of tobacco abuse; comes with nausea and vomiting starting today morning, several episodes of vomiting, also has diarrhea. She was admitted for similar problems frequently, thought to be secondary to gastroparesis. Currently hemodynamically stable. Denies any headaches. No dizziness, no blurred vision. Has some cough. No sore throat. No difficulty swallowing. No runny nose. No earache. No chest pain. No shortness of breath. No abdominal pain. Not eating because of nausea and vomiting. Says no blood in the stools. Normal bladder movements. No burning micturition. The patient also says that she fell a few days back and sprained her ankle and there is some bruising and swelling of the left ankle, did not see any doctor for that. ALLERGIES: AMOXICILLIN, NSAIDS, ROFECOXIB, SCOPOLAMINE. PAST MEDICAL HISTORY: As mentioned above. PAST SURGICAL HISTORY: EGD with treatment to distal esophagus, GE junction and cardia; ; history of oophorectomy; history of hysterectomy; history of bladder surgery; history of laparoscopic sleeve gastrectomy; status post partial gastrectomy; status post repair of paraesophageal hernia; status post tonsillectomy and adenoidectomy. MEDICATIONS: The patient currently on Klonopin 0.5 mg p.o. t.i.d. p.r.n., Emend 150 mg intravenously every month, Lanoxin 125 mcg p.o. daily, vitamin D 50,000 units once a week, Lexapro 20 mg p.o. daily, levothyroxine 75 mcg p.o. daily, Dexilant 30 mg p.o. daily, Reglan 10 mg p.o. t.i.d. with meals, Phenergan 25 mg suppository every 6 hours p.r.n., Pepcid 40 mg p.o. b.i.d., aluminium hydroxide -Mag Trisilicate 2 capsules p.o. t.i.d. p.r.n., albuterol nebulization every 4 hours p.r.n. pain, multivitamins 1 tablet daily, vitamin B12 1000 mcg monthly. FAMILY HISTORY: Significant for father had thyroid disease, heart disorder and aneurysm; at the age of 61. Mother had arthritis, diabetes and heart disorder; and at the age of 65. Sister has GERD. Brother has seasonal allergies. SOCIAL HISTORY: Smokes half pack a day for last 20 years. Alcohol socially. No drug use. . REVIEW OF SYSTEMS: As per HPI. Rest of review of systems negative. PHYSICAL EXAMINATION: GENERAL: The patient is of moderate build, not in distress. VITAL SIGNS: Temperature 36.7, pulse 69, respiratory rate 16, blood pressure 147/98, oxygen 100% on room air. HEENT: No pallor, no icterus. Pupils equal, round and reactive to light. NECK: No JVD, no neck masses, no carotid bruits. CARDIOVASCULAR: S1, S2 heard. Regular rate and rhythm. No murmur, no gallop. RESPIRATORY SYSTEM: Normal AP diameter. No accessory muscle use. No wheezing, no crackles. ABDOMEN: Soft, bowel sounds present. Diffuse mild tenderness, more in the epigastric region. No guarding. No distention. CENTRAL NERVOUS SYSTEM: Cranial nerves II-XII grossly intact. Nonfocal. EXTREMITIES: No erythema seen in the right and left ankle is swollen and somewhat tender and bruises seen. LABORATORY DATA: WBC 8.2, hemoglobin 11.8, hematocrit 35.1, platelets 319. Sodium 138, potassium 3.7, chloride 107, bicarbonate 27, BUN 11, creatinine 0.9, serum glucose 126, calcium 9, total bilirubin 0.5, AST 14, ALT 22, alkaline phosphatase 97. Troponin I less than 0.015. Lipase 117. EKG: Shows normal sinus rhythm with rate of 68. Nonspecific T-wave abnormality in inferior leads. ASSESSMENT AND PLAN: This is a 57-year-old female who presents with gastroparesis flare. 1. Nausea, vomiting, diarrhea, history of gastroparesis possible flare. We will continue home Reglan, IV; IV Zofran, IV Phenergan, p.r.n. N.p.o. except meds, IV fluids, monitor and observe on the medical floor. Consult GI for further recommendations. 2. History of anxiety and depression. Continue Lexapro and Klonopin p.r.n. 3. Hypothyroidism. Continue Synthroid. 4. Gastroesophageal reflux disease: Continue patient on IV Zantac. 5. History of asthma and chronic obstructive pulmonary disease. Continue albuterol p.r.n. Currently stable. 6. Deep venous thrombosis prophylaxis. Sequential compression devices and TEDs for now. 7. Disposition: Observation on medical floor. Expect to discharge home and follow with her family doctor. Level 1 full code. Hospital Course This is a 57 year old female with a PMH of multiple abdominal surgeries, significant and recurrent gastroparesis, hypothyroid, anxiety/depression, COPD - presents with worsening nausea Nausea secondary to Gastroparesis 10/14 received Emend to have monthly Emend injections as outpatient will d/c home on home meds today outpatient PCP f/u 10/13 patient has had multiple admissions for gastroparesis have tried a combination of Reglan, Zofran, Phenergan with no help she gets monthly Emend injections - was due for this on October 15 will give a dose now appreciate GI input continue IVFs and monitor electrolytes Anxiety/Depression continue home medications Hypothyroidism continue home medications GERD continue Zantac COPD stable, continue current medications Hx. of multiple PACs, PVCs continue digoxin DVT ppx SCDs FULL CODE Total time spent on discharge = 20 minutes This includes examination of the patient, discharge planning, medication reconciliation, and communication with other providers. Discharge Instructions Please follow-up with Dr. Coppola on October 16 at 10:45AM
[2017-10-14 14:02] VITALS: BP 104/69; PULSE 51; TEMP 36.8; O2SAT 97
== END 2017-10-14 16:05 | disposition home or self-care (01) ==
LOC: C.EDB 11:44 → C.4E 15:30 → EDBEDREQ 15:33 → ENRESERV 16:11
PROVIDERS: ADMIT Family Medicine; ATTEND Family Medicine
DX: K31.84 Gastroparesis (principal); J44.9 Chronic obstructive pulmonary disease, unspecified; F32.9 Major depressive disorder, single episode, unspecified; K21.9 Gastro-esophageal reflux disease without esophagitis; E03.9 Hypothyroidism, unspecified; E78.5 Hyperlipidemia, unspecified; I34.0 Nonrheumatic mitral (valve) insufficiency; L10.0 Pemphigus vulgaris; Z87.891 Personal history of nicotine dependence; Z98.84 Bariatric surgery status; Z90.721 Acquired absence of ovaries, unilateral; Z90.710 Acquired absence of both cervix and uterus; Z83.3 Family history of diabetes mellitus; Z82.49 Family history of ischemic heart disease and other diseases of the circulatory system; Z84.1 Family history of disorders of kidney and ureter

== ENCOUNTER 2017-10-28 17:54 | Observation (INO) | payer OTHER ==
[~2017-10-28] VITALS: Ht 167.6 cm; Wt 66.5 kg
[~2017-10-28 17:54] MED LIST changes: -CLS1 PO
[2017-10-28] MEDS ORDERED: PROMETHAZINE HCL INJ 25 MG/ML 1 ML VIAL IV STA (18:06)
[2017-10-28] MEDS ORDERED: DiphenhydrAMINE HCL 50 MG/ML VIAL IV STA (18:06)
[2017-10-28] MEDS ORDERED: METOCLOPRAMIDE HCL INJ 5 MG/ML 2 ML VIAL IV STA (18:06)
[2017-10-28] MEDS ORDERED: ONDANSETRON INJ 2 MG/ML 2 ML VIAL IV STA ×2 (18:06→19:58)
[2017-10-28] MEDS ORDERED: FOSAPREPITANT DIMEGLUMINE INJ 150 MG in SODIUM CHLORIDE 0.9% 150ML 145 ML IV ONE (18:15)
[2017-10-28] MEDS ORDERED: MoRPHine SULFATE 4 MG/ML 1 ML CARP\\VIAL IV PRN (18:15)
--- NOTE | 2017-10-28 18:24 | EMERGENCY ROOM VISIT NOTE ---
History Report prepared by [place]: Everardo Walsh Under the Supervision of: Dr. Bayron Mcmillan M.D. First contact with patient: 18:02 Chief Complaint: VOMITING Stated Complaint: GASTROPARESIS Nursing Triage Summary: Patient presents with c/o abdominal pain which she states goes straight through to her back, nausea, and vomiting Symptoms began at 1500 today Reports she has a history of gastroparesis which always requires admission History of Present Illness The patient is a 57 year old female who presents to the Emergency Room with complaints of abdominal pain that began today at 1500. The patient states that she has nausea but cannot throw up and is dry heaving. She denies having diarrhea or a fever. Her symptoms are typically alleviated by Emend IV. She notes that she can have a dose before her next scheduled dose. The patient reports that she has back pain as it is radiating through from her abdomen. She rates her overall pain as a 6/10. 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 The patient has an extensive history of gastroparesis, she was admitted to the hospital on October 12 and was discharged on October 14, she was hospitalized for similar symptoms. Source of History: patient Onset: 1500 today. Position: other (Global) Quality: other (Nausea ) Timing: other (Persistant ) Modifying Factors (Relieving): other (Emend IV) Associated Symptoms: + nausea, + vomiting, + back pain, No fevers, No diarrhea Note: Associated Symptoms: Dry Heaving, Review of Systems See HPI for pertinent positives & negatives. A total of 10 systems reviewed and were otherwise negative. Past Medical & Surgical Medical Problems: (1) Abdominal pain (2) Anemia, iron deficiency (3) Anemia, iron deficiency (4) Anxiety (5) Anxiety State Nos (6) Asthma (7) Chronic Obstructive Asthma, Nos (8) COPD (chronic obstructive pulmonary disease) (9) Depression (10) Diarrhea (11) Diverticulosis (12) Esophagitis Nos (13) Frequent PVCs (14) Gastroparesis (15) GERD (gastroesophageal reflux disease) (16) Hyperlipidemia Nec/Nos (17) Hypothyroidism (18) Hypothyroidism Nos (19) Iron Defic Anemia Nos (20) Mitral regurgitation (21) MRSA bacteremia (22) Nausea (23) Neuropathy (24) Pemphigus vulgaris (25) Pernicious anemia (26) Pernicious Anemia (27) Premature atrial contractions (28) Tobacco abuse Surgical Problems: (1) H/O colonoscopy (2) H/O esophagogastroduodenoscopy (3) H/O oophorectomy (4) H/O: hysterectomy (5) History of bladder surgery (6) S/P hysterectomy (7) S/P laparoscopic sleeve gastrectomy (8) S/P partial gastrectomy (9) S/P repair of paraesophageal hernia (10) S/P repair of paraesophageal hernia (11) S/P tonsillectomy and adenoidectomy (12) S/P tonsillectomy and adenoidectomy Family History Diabetes mellitus MOTHER SISTER FH: aneurysm FH: cancer FH: heart disease FATHER MOTHER Hypertension BROTHER Kidney disease Social History Smoking Status: Current Every Day Smoker Alcohol Use: none Drug Use: none Marital Status: single Housing Status: lives alone Occupation Status: disabled Current/Historical Medications Scheduled Colestipol Hcl (Colestid), 2 GM PO BID AT 1000 & 2200 Digoxin (Digoxin), 0.125 MG PO QPM Ergocalciferol (Vitamin D 23907 Unit), 1 CAP PO EVERY OTHER WEEK Escitalopram Oxalate (Lexapro), 20 MG PO HS Famotidine (Pepcid), 40 MG PO BID Fosaprepitant Dimeglumine (Emend), 150 MG IV MONTHLY Levothyroxine Sodium (Levothyroxine Sodium), 75 MCG PO QAM Metoclopramide (Reglan), 10 MG PO TIDM Pantoprazole (Protonix), 40 MG PO BID Multivit-Min W/Fe-Fa ( And Iron), 1 TAB PO QPM [Vitamin B], 1 MG INJ MONTHLY Scheduled PRN Albuterol Sulf (Proventil 0.083% 2.5MG/3ML), 3 ML INH Q4H PRN for Wheezing Aluminum Hydroxide-Mag Trisil (Gaviscon), 2 TABS PO TID PRN for Dyspepsia Clonazepam (Klonopin), 0.5 MG PO TID PRN for Anxiety/Agitation Ondansetron Hcl (Zofran), 4 MG PO Q6H PRN for Nausea Promethazine (Phenergan Suppository), 25 MG IA Q6H PRN for Nausea Allergies Coded Allergies: Adhesives (Verified Allergy, Mild, SKIN IRRITATION, 10/28/17) Amoxicillin (Verified Adverse Reaction, Intermediate, yeast infection, 10/28) NSAIDs (Verified Adverse Reaction, Mild, indegestion, 10/28/17) Rofecoxib (Verified Adverse Reaction, Mild, indigestion, 10/28/17) Scopolamine (Verified Adverse Reaction, Mild, rash from patch, 10/28/17) Physical Exam Vital Signs Date Time Temp Pulse Resp B/P (MAP) Pulse Ox O2 Delivery O2 Flow Rate FiO2 10/28/17 20:54 77 18 162/104 96 Room Air 10/28/17 19:37 68 20 138/97 97 Room Air 10/28/17 17:57 37.0 91 20 167/109 97 Room Air Physical Exam GENERAL: Patient is in no acute distress. Dry heaving noted. HEENT: No acute trauma, normocephalic atraumatic, mucous membranes moist, no nasal congestion, no scleral icterus. NECK: No stridor, no adenopathy, no meningismus, trachea is midline. LUNGS: Clear to auscultation bilaterally, no wheeze, no rhonchi, breath sounds equal. HEART: Without murmurs gallops or rubs, regular rate and rhythm. ABDOMEN: Soft, mildly tender in epigastrium, no tenderness in other quadrants, bowel sounds positive, no hernias, no peritonitis. EXTREMITIES: No cyanosis or edema, full range of motion of all the joints without pain or difficulty, no signs for acute trauma. NEUROLOGIC: Oriented x 3, no acute motor or sensory deficits, no focal weakness. SKIN: No rash, no jaundice, no diaphoresis. Medical Decision & Procedures ER Provider Diagnostic Interpretation: Radiology results as stated below per my review and radiologist interpretation: ABDOMEN 2VIEW W/PA CHEST RTN CLINICAL HISTORY: 57 years-old Female presenting with ABDOMINAL PAIN/GI. TECHNIQUE: PA view of the chest and supine and upright views of the abdomen were obtained. COMPARISON: 08/08/2017 and chest x-ray from 06/18/2017. FINDINGS: Right subclavian Mediport terminates in the mid SVC and has been accessed. Blunting of the right costophrenic angle, unchanged and possibly pleural thickening. Lungs and pleural spaces otherwise clear. Evidence of gastric banding. Multiple surgical clips project over the epigastrium. Cholecystectomy clips also noted. The esophagus is mildly distended with gas. Nonobstructive bowel gas pattern. No pneumoperitoneum, portal venous gas, or pneumatosis. Allowing for bowel gas and stool, no calcifications to suggest nephrolithiasis. Numerous pelvic phleboliths. Osseous structures normal. IMPRESSION: 1. No acute cardiopulmonary disease. 2. Postsurgical changes of gastric banding. No bowel obstruction. Electronically signed by: Jeovany Bach M.D. 10/28/2017 7:44 PM Dictated Date/Time: 10/28/2017 7:40 PM Laboratory Results 10/28/17 18:30 Red Blood Count 4.60, Mean Corpuscular Volume 79.8, Mean Corpuscular Hemoglobin 25.9, Mean Corpuscular Hemoglobin Concent 32.4, Mean Platelet Volume 9.4, Neutrophils (%) (Auto) 62.3, Lymphocytes (%) (Auto) 26.2, Monocytes (%) (Auto) 10.3, Eosinophils (%) (Auto) 0.5, Basophils (%) (Auto) 0.5, Neutrophils # (Auto ) 4.13, Lymphocytes # (Auto) 1.73, Monocytes # (Auto) 0.68, Eosinophils # (Auto ) 0.03, Basophils # (Auto) 0.03 10/28/17 18:30 Test 10/28/17 18:30 White Blood Count 6.61 K/uL (4.8-10.8) Red Blood Count 4.60 M/uL (4.2-5.4) Hemoglobin 11.9 g/dL (12.0-16.0) Hematocrit 36.7 % (37-47) Mean Corpuscular Volume 79.8 fL (80-100) Mean Corpuscular Hemoglobin 25.9 pg (25-34) Mean Corpuscular Hemoglobin Concent 32.4 g/dl (32-36) Platelet Count 319 K/uL (130-400) Mean Platelet Volume 9.4 fL (7.4-10.4) Neutrophils (%) (Auto) 62.3 % Lymphocytes (%) (Auto) 26.2 % Monocytes (%) (Auto) 10.3 % Eosinophils (%) (Auto) 0.5 % Basophils (%) (Auto) 0.5 % Neutrophils # (Auto) 4.13 K/uL (1.4-6.5) Lymphocytes # (Auto) 1.73 K/uL (1.2-3.4) Monocytes # (Auto) 0.68 K/uL (0.11-0.59) Eosinophils # (Auto) 0.03 K/uL (0-0.5) Basophils # (Auto) 0.03 K/uL (0-0.2) RDW Standard Deviation 50.6 fL (36.4-46.3) RDW Coefficient of Variation 17.5 % (11.5-14.5) Immature Granulocyte % (Auto) 0.2 % Immature Granulocyte # (Auto) 0.01 K/uL (0.00-0.02) Anion Gap 13.0 mmol/L (3-11) Estimated GFR () 66.6 Estimated GFR (Non- 57.4 BUN/Creatinine Ratio 7.5 (10-20) Calcium Level 9.1 mg/dl (8.5-10.1) Total Bilirubin 0.4 mg/dl (0.2-1) Aspartate Amino Transf (AST/SGOT) 13 U/L (15-37) Alanine Aminotransferase (ALT/SGPT) 13 U/L (12-78) Alkaline Phosphatase 107 U/L (45-117) Total Protein 7.1 gm/dl (6.4-8.2) Albumin 3.6 gm/dl (3.4-5.0) Globulin 3.5 gm/dl (2.5-4.0) Albumin/Globulin Ratio 1.0 (0.9-2) Lipase 126 U/L (73-393) Digoxin Level 0.4 ng/ml (0.8-2.0) Laboratory results reviewed by me. Medications Administered Medications (Trade) Dose Ordered Sig/Marisol Route Start Time Stop Time Status Last Admin Dose Admin Ondansetron HCl (Zofran Inj) 4 mg NOW STAT IV 10/28/17 18:06 10/28/17 18:09 DC 10/28/17 18:34 4 MG Morphine Sulfate (MoRPHine SULFATE INJ) 4 mg Q30M PRN IV 10/28/17 18:15 10/28/17 20:11 DC 10/28/17 18:44 4 MG Metoclopramide HCl (Reglan Inj) 10 mg NOW STAT IV 10/28/17 18:06 10/28/17 18:09 DC 10/28/17 18:36 10 MG Diphenhydramine HCl (Benadryl Inj) 25 mg NOW STAT IV 10/28/17 18:06 10/28/17 18:09 DC 10/28/17 18:40 25 MG Fosaprepitant 150 mg/Sodium Chloride 150 ml @ 300 mls/hr ONE ONCE IV 10/28/17 18:15 10/28/17 18:44 DC 10/28/17 18:49 300 MLS/HR Promethazine HCl 12.5 mg/Sodium Chloride 50.5 ml @ 202 mls/hr NOW ONCE IV 10/28/17 19:00 10/28/17 19:14 DC 10/28/17 19:37 202 MLS/HR Lorazepam (Ativan Inj) 0.5 mg NOW STAT IV 10/28/17 19:58 10/28/17 19:59 DC 10/28/17 20:09 0.5 MG Ondansetron HCl (Zofran Inj) 4 mg NOW STAT IV 10/28/17 19:58 10/28/17 19:59 DC 10/28/17 20:09 4 MG ED Course 1803: The patient was evaluated in room A3. A complete history and physical exam was performed. 1805: Ordered Benadryl Inj 25mg IV, Reglan Inj 10mg IV, Zofran Inj 4 mg IV, Phenergan Inj 12.5 mg IV. 1812: I discussed the case with Dr. Amanda Brown Lehr Cutter. She states that it is safe to give the patient Emend in the E.R. today. 1814: Ordered Fosaprepitant 150mg/Sodium Chloride 150ml @ 300 mls/hr IV, Morphine Sulfate 4mg IV. 1899: Ordered Promethazine HCL 12.5mg/Sodium Chloride 50.5ml @ 202 mls/hr IV 1957: Ordered Zofran Inj 4mg IV, and Ativan Inj .5mg IV 2002: I discussed the patient's case with Dr. Ashlyn Brown Hospitalist. He will evaluate the patient for further treatment. 2014: Ordered Lactated Ringer's 1000ml @ 75 mls/hr IV. Medical Decision Differential diagnoses include: Dehydration, Gastroparesis, Bowel obstruction, Pancreatitis, Electrolyte imbalance, anemia, and infection. There is no leukocytosis or concerning anemia. No significant electrolyte abnormality, kidney failure, hepatitis or pancreatitis. Obstruction series does not show bowel instruction, free air or pneumonia. Digoxin level is not toxic. On exam, the patient was not febrile. She did not have peritonitis. She was dry heaving. Patient received IV Zofran, IV Phenergan, IV Reglan, IV Benadryl and IV Emend. She was still nauseated. She was given IV saline, IV Zofran and IV Ativan. I discussed the case with the GI doctor client relationship manager. In particular, I discussed giving a dose of Emend. Giving this medication was recommended. The patient is still having trouble despite multiple medications for her symptoms. She has had issues like this in the past. She requires a hospital stay for hydration and symptom control. I spoke to the patient and case management. The on-call hospitalist was consulted. The patient is having a flare of her gastroparesis. Medication Reconcilliation Current Medication List: was personally reviewed by me Blood Pressure Screening Patient's blood pressure: Elevated blood pressure Referred to hospitalist. Consults Time Called: 1809 Consulting Physician: Dr. Amanda Brown Lehr Cutter Returned Call: 1812 I discussed the case with Dr. Amanda Brown Lehr Cutter. She states that it is safe to give the patient Emend in the E.R. today. Additional Consults: Time Called: 1999 Consulted Physician: Dr. Ashlyn Brown Hospitalist Returned Call: 2002 Additional Comments: I discussed the patient's case with Dr. Ashlyn Og. He will evaluate the patient for further treatment. Impression Primary Impression: Vomiting Additional Impressions: Dehydration Gastroparesis Failure of outpatient treatment Scribe Attestation The scribe's documentation has been prepared under my direction and personally reviewed by me in its entirety. I confirm that the note above accurately reflects all work, treatment, procedures, and medical decision making performed by me. Departure Information Dispostion Being Evaluated By Hospitalist Referrals Jaleel Coppola M.D. (PCP) Patient Instructions [facility] Problem Qualifiers
[2017-10-28 18:40] LABS: BASO % 0.5 %; BASO ABS # 0.03 K/uL (0-0.2); EOS % 0.5 %; EOS ABS # 0.03 K/uL (0-0.5); HEMATOCRIT 36.7 % (37-47); HEMOGLOBIN 11.9 g/dL (12.0-16.0); IG# 0.01 K/uL (0.00-0.02); LYMPH % 26.2 %; LYMPH ABS # 1.73 K/uL (1.2-3.4); MEAN CELL VOLUME 79.8 fL (80-100); MEAN CORPUSCULAR HEMOGLOBIN 25.9 pg (25-34); MEAN CORPUSCULAR HGB CONC 32.4 g/dl (32-36); MEAN PLATELET VOLUME 9.4 fL (7.4-10.4); MONO % 10.3 %; MONO ABS # 0.68 K/uL (0.11-0.59); NEUT % 62.3 %; NEUT ABS # 4.13 K/uL (1.4-6.5); PLATELET COUNT 319 K/uL (130-400); RED CELL DISTRIBUTION WIDTH CV 17.5 % (11.5-14.5); RED CELL DISTRIBUTION WIDTH SD 50.6 fL (36.4-46.3); WHITE BLOOD COUNT 6.61 K/uL (4.8-10.8)
[2017-10-28 18:55] LABS: ALBUMIN 3.6 gm/dl (3.4-5.0); ALT/SGPT 13 U/L (12-78); BLOOD UREA NITROGEN 8 mg/dl (7-18); CALCIUM 9.1 mg/dl (8.5-10.1); CARBON DIOXIDE 22 mmol/L (21-32); CREATININE 1.06 mg/dl (0.60-1.20); GLUCOSE 115 mg/dl (70-99); LIPASE 126 U/L (73-393); POTASSIUM 3.5 mmol/L (3.5-5.1); SODIUM 141 mmol/L (136-145)
[2017-10-28 18:58] LABS: ALKALINE PHOSPHATASE 107 U/L (45-117); AST/SGOT 13 U/L (15-37); TOTAL PROTEIN 7.1 gm/dl (6.4-8.2)
[2017-10-28] MEDS ORDERED: PROMETHAZINE HCL INJ 12.5 MG in SODIUM CHLORIDE 0.9% 50ML 50 ML IV ONE (19:00)
[2017-10-28] MEDS ORDERED: COLE1TAB PO (19:07)
[2017-10-28] MEDS ORDERED: PANT40TA PO (19:07)
[2017-10-28] MEDS ORDERED: VITAMIN B INJ (19:07)
--- NOTE | 2017-10-28 19:45 | DIAGNOSTIC IMAGING REPORT ---
ABDOMEN 2VIEW W/PA CHEST RTN CLINICAL HISTORY: 57 years-old Female presenting with ABDOMINAL PAIN/GI. TECHNIQUE: PA view of the chest and supine and upright views of the abdomen were obtained. COMPARISON: 08/08/2017 and chest x-ray from 06/18/2017. FINDINGS: Right subclavian Mediport terminates in the mid SVC and has been accessed. Blunting of the right costophrenic angle, unchanged and possibly pleural thickening. Lungs and pleural spaces otherwise clear. Evidence of gastric banding. Multiple surgical clips project over the epigastrium. Cholecystectomy clips also noted. The esophagus is mildly distended with gas. Nonobstructive bowel gas pattern. No pneumoperitoneum, portal venous gas, or pneumatosis. Allowing for bowel gas and stool, no calcifications to suggest nephrolithiasis. Numerous pelvic phleboliths. Osseous structures normal. IMPRESSION: 1. No acute cardiopulmonary disease. 2. Postsurgical changes of gastric banding. No bowel obstruction. Electronically signed by: Jeovany Bach M.D. 10/28/2017 7:44 PM Dictated Date/Time: 10/28/2017 7:40 PM
[2017-10-28] MEDS ORDERED: LORAZEPAM 2 MG/ML 1 ML VIAL IV STA (19:58)
[2017-10-28] MEDS ORDERED: LACTATED RINGER'S 1000ML 1,000 ML IV SCH ×2 (20:15→20:45)
[2017-10-28] MEDS ORDERED: TRAMADOL HCL 50 MG TAB PO PRN (20:45)
[2017-10-28] MEDS ORDERED: CLONAZEPAM 0.5 MG TAB PO PRN (20:45)
[2017-10-28] MEDS ORDERED: ACETAMINOPHEN 325 MG TAB PO PRN (20:45)
[2017-10-28] MEDS ORDERED: ALUM HYDROX/MAG TRISILICATE CHEW PO PRN (20:45)
[2017-10-28] MEDS ORDERED: ACETAMINOPHEN IV 650 MG in EMPTY BAG 0 ML IV PRN (20:45)
[2017-10-28] MEDS ORDERED: DEXAMETHASONE **PF** INJ 10 MG/ML VIAL ONE (20:59)
[2017-10-28] MEDS ORDERED: IV FLUIDS COMPLETED PRN (21:00)
[2017-10-28] MEDS ORDERED: DEXAMETHASONE INJ 10 MG in SYRINGE 0 ML IV ONE (21:00)
[2017-10-28] MEDS: FAMOTIDINE 20 MG TAB PO SCH (21:00)
[2017-10-28] MEDS: DIGOXIN 0.125 MG TAB PO SCH (21:00)
[2017-10-28] MEDS: ESCITALOPRAM OXALATE 20 MG TAB PO SCH (21:00)
[2017-10-28] MEDS ORDERED: DEXAMETHASONE **PF** INJ 10 MG/ML VIAL IV SCH (21:15)
--- NOTE | 2017-10-28 21:43 | HISTORY & PHYSICAL EXAMINATION ---
DATE OF ADMISSION: 10/28/2017 PRIMARY CARE PHYSICIAN: Jaleel Coppola MD. CHIEF COMPLAINT: Nausea, vomiting, abdominal pain. HISTORY OF PRESENT ILLNESS: History obtained from patient and records. Medical history significant for gastroparesis, hypothyroidism, COPD, history of MRSA, history of PACs and PVCs on digoxin, anxiety, depression, ongoing tobacco abuse, chronic anemia (baseline hemoglobin of 9-11). Recent confinement last month for gastroparesis flare up. One day history of achy epigastric pain, nausea, vomiting, emesis. Good bowel movement yesterday. No chest pain. No shortness of breath. Intractable symptoms despite the intervention in the Emergency Room. MEDICAL HISTORY: As above. SURGERIES: She has had A-port placement, oophorectomy, hysterectomy, bladder surgery, gastrectomy, tonsillectomy, adenectomy, hernia repair. HOME MEDICATIONS: Include vitamins, Protonix, Phenergan, vitamin B, Lexapro, Pepcid, levothyroxine, Reglan, Zofran, Proventil, Gaviscon, Klonopin, digoxin. Emend ALLERGIES: ADHESIVES, AMOXICILLIN, SCOPOLAMINE, ROFECOXIB, NSAIDS. FAMILY HISTORY: Thyroid disease, heart disease. PERSONAL SOCIAL HISTORY: Pack daily. No chronic intake of alcoholic beverages. Disabled. REVIEW OF SYSTEMS: As per HPI, all 10 systems reviewed. All other ROS negative. PHYSICAL EXAMINATION: VITAL SIGNS: Blood pressure was noted to be 138/97, pulse rate 96, temperature 37, sats 97 on room air. GENERAL: Uncomfortable, no respiratory distress. SKIN: Pallor. Warm. HEENT: Pale palpebral conjunctivae. Dry mucosa. No ptosis. NECK: Supple, nontender. LUNGS: Decreased breath sounds. No tenderness. HEART: Regular rate and rhythm, no murmur. ABDOMEN: Epigastric tenderness, some distention. EXTREMITIES: No edema. No gross deformities. No tenderness. NEUROLOGIC: Coherent. No gross focality. LABORATORY DATA: Hemoglobin was noted to be 11.9, hematocrit 27, white count 6.6, platelets 319. Sodium 141, potassium 3.5, chloride 106, BUN 8, creatinine 1, glucose 115. LFTs, lipase normal. Chest and abdomen x-ray did not show bowel obstruction. ASSESSMENT: 1. Intractable abdominal pain, nausea and vomiting symptoms gastroparesis flare up. 2. hx PACs/PVCs on digoxin. 3. Chronic obstructive pulmonary disease pulmonary status at baseline. 4. Ongoing tobacco abuse 5. Chronic anemia, hemoglobin at baseline. 6. History MRSA PLAN: OBS GMF Decadron trial antiemetics, limit narcotic use GI consult in the morning if not better. RE gastroparesis flareup (Patient well known to [facility] GI service.) Nicotine patch. DVT prophylaxis, Lovenox subQ. Full code. MTDD
[2017-10-28 21:57] VITALS: BP 147/91; PULSE 66; TEMP 36.8; O2SAT 96
[2017-10-28 22:15] VITALS: BP 147/91; PULSE 66; TEMP 36.8; O2SAT 96; Ht 167.6 cm; Wt 66.5 kg
[2017-10-28 22:44] VITALS: BP 131/90; PULSE 66; TEMP 36.7; O2SAT 95
[2017-10-28] MEDS ORDERED: PANTOprazole INJ 40 MG in SYRINGE 0 ML IV ONE (23:15)
[2017-10-28] MEDS: COLESTIPOL HCL 1 GM TAB PO SCH (23:56)
[2017-10-29] VITALS: O2SAT 96
[2017-10-29] MEDS: PROCHLORPERAZINE INJ 5 MG in SYRINGE 4 ML IV PRN ×3 (01:12→19:29)
[2017-10-29] MEDS: ONDANSETRON INJ 2 MG/ML 2 ML VIAL IV PRN ×3 (03:36→21:02)
[2017-10-29 04:00] VITALS: O2SAT 96
[2017-10-29] MEDS: LEVOTHYROXINE 75 MCG TAB PO SCH (06:13)
[2017-10-29 06:45] LABS: HEMATOCRIT 33.7 % (37-47); HEMOGLOBIN 10.7 g/dL (12.0-16.0); IG# 0.01 K/uL (0.00-0.02); LYMPH % 17.8 %; LYMPH ABS # 0.58 K/uL (1.2-3.4); MEAN CELL VOLUME 80.8 fL (80-100); MEAN CORPUSCULAR HEMOGLOBIN 25.7 pg (25-34); MEAN CORPUSCULAR HGB CONC 31.8 g/dl (32-36); MEAN PLATELET VOLUME 9.2 fL (7.4-10.4); MONO % 2.5 %; MONO ABS # 0.08 K/uL (0.11-0.59); NEUT % 79.4 %; NEUT ABS # 2.58 K/uL (1.4-6.5); PLATELET COUNT 266 K/uL (130-400); RED CELL DISTRIBUTION WIDTH CV 17.6 % (11.5-14.5); RED CELL DISTRIBUTION WIDTH SD 52.4 fL (36.4-46.3); WHITE BLOOD COUNT 3.25 K/uL (4.8-10.8)
[2017-10-29 06:59] VITALS: BP 95/61; PULSE 63; TEMP 36.6; O2SAT 93
[2017-10-29 07:34] LABS: CALCIUM 8.5 mg/dl (8.5-10.1); CREATININE 0.89 mg/dl (0.60-1.20); POTASSIUM 4.2 mmol/L (3.5-5.1)
[2017-10-29] MEDS: METOCLOPRAMIDE HCL INJ 5 MG/ML 2 ML VIAL IV. SCH ×2 (07:39→15:58)
[2017-10-29] MEDS: PANTOprazole SOD 40 MG TAB PO SCH ×2 (07:40→21:00)
[2017-10-29] MEDS: FAMOTIDINE 20 MG TAB PO SCH ×2 (07:40→21:00)
[2017-10-29] MEDS: COLESTIPOL HCL 1 GM TAB PO SCH ×2 (07:42→21:29)
[2017-10-29] MEDS: NICOTINE 21 MG/24 HR TDSY TD SCH (07:43)
[2017-10-29] MEDS: ENOXAPARIN 30 MG/0.3 ML SYR SQ SCH (07:43)
[2017-10-29] MEDS ORDERED: SODIUM CHLORIDE 0.9% IV SCH (09:00)
[2017-10-29] MEDS ORDERED: FOSAPREPITANT DIMEGLUMINE IV SCH (09:00)
--- NOTE | 2017-10-29 10:35 | Progress Note ---
Medicine Progress Note Date & Time of Visit: Oct 29, 2017 at 10:12. Subjective Pt was seen and examined Lying in bed with no distress She said that her abdominal pain and her nausea improve She said that she tolerated her clear liquid diet Denies any chest pain, palpitation, dizziness and SOB Objective Last 8 Hrs Date Time Temp Pulse Resp B/P (MAP) Pulse Ox O2 Delivery O2 Flow Rate FiO2 10/29/17 08:00 Room Air 10/29/17 06:59 36.6 63 18 95/61 (72) 93 Room Air 10/29/17 04:00 96 Room Air Physical Exam: General- No acute distress Head- atraumatic Eyes- PERRL, EOMI ENT- oropharynx clear Neck- supple, no JVD Lungs- No wheezing Heart- regular rhythm Abdomen- normal bowel sounds, soft Extremities- no pretibial edema, no calf tenderness Neuro- alert, oriented x 3; PERRL, EOMI; no facial palsy Skin- warm & dry Laboratory Results: Last 24 Hours Test 10/28/17 18:30 10/29/17 06:29 White Blood Count 6.61 K/uL 3.25 K/uL Red Blood Count 4.60 M/uL 4.17 M/uL Hemoglobin 11.9 g/dL 10.7 g/dL Hematocrit 36.7 % 33.7 % Mean Corpuscular Volume 79.8 fL 80.8 fL Mean Corpuscular Hemoglobin 25.9 pg 25.7 pg Mean Corpuscular Hemoglobin Concent 32.4 g/dl 31.8 g/dl Platelet Count 319 K/uL 266 K/uL Mean Platelet Volume 9.4 fL 9.2 fL Neutrophils (%) (Auto) 62.3 % 79.4 % Lymphocytes (%) (Auto) 26.2 % 17.8 % Monocytes (%) (Auto) 10.3 % 2.5 % Eosinophils (%) (Auto) 0.5 % 0.0 % Basophils (%) (Auto) 0.5 % 0.0 % Neutrophils # (Auto) 4.13 K/uL 2.58 K/uL Lymphocytes # (Auto) 1.73 K/uL 0.58 K/uL Monocytes # (Auto) 0.68 K/uL 0.08 K/uL Eosinophils # (Auto) 0.03 K/uL 0.00 K/uL Basophils # (Auto) 0.03 K/uL 0.00 K/uL RDW Standard Deviation 50.6 fL 52.4 fL RDW Coefficient of Variation 17.5 % 17.6 % Immature Granulocyte % (Auto) 0.2 % 0.3 % Immature Granulocyte # (Auto) 0.01 K/uL 0.01 K/uL Sodium Level 141 mmol/L 141 mmol/L Potassium Level 3.5 mmol/L 4.2 mmol/L Chloride Level 106 mmol/L 107 mmol/L Carbon Dioxide Level 22 mmol/L 26 mmol/L Anion Gap 13.0 mmol/L 8.0 mmol/L Blood Urea Nitrogen 8 mg/dl 12 mg/dl Creatinine 1.06 mg/dl 0.89 mg/dl Estimated GFR () 66.6 82.2 Estimated GFR (Non- 57.4 70.9 BUN/Creatinine Ratio 7.5 13.1 Random Glucose 115 mg/dl 137 mg/dl Calcium Level 9.1 mg/dl 8.5 mg/dl Magnesium Level 2.0 mg/dl Total Bilirubin 0.4 mg/dl Aspartate Amino Transf (AST/SGOT) 13 U/L Alanine Aminotransferase (ALT/SGPT) 13 U/L Alkaline Phosphatase 107 U/L Total Protein 7.1 gm/dl Albumin 3.6 gm/dl Globulin 3.5 gm/dl Albumin/Globulin Ratio 1.0 Lipase 126 U/L Digoxin Level 0.4 ng/ml Prothrombin Time 10.7 SECONDS Prothromb Time International Ratio 1.0 Est Creatinine Clear Calc Drug Dose 63.7 ml/min Assessment & Plan Intractable abdominal pain/Nausea/Vomiting Secondary to gastroparesis flare up. Abd Xray showed postsurgical changes of gastric banding. No bowel obstruction. Received Emend in the ER Symptoms improve Tolerated clear liquid diet, will advance diet as tolerated Continue Zofran and Reglan PRN On PPI BID Received IVF Will continue monitor Hx PACs/PVCs on digoxin. stable COPD Not on exacerbation stable Tobacco abuse Counseling on smoking cessation Chronic anemia Hemoglobin stable Depression On Lexapro Stable DVT px on Lovenox CODE STATUS FULL CODE Current Inpatient Medications: Current Inpatient Medications Medications (Trade) Dose Ordered Sig/Marisol Route Start Time Stop Time Status Last Admin Dose Admin Miscellaneous (Iv Fluids Completed) 1 ea PRN PRN N/A 10/28/17 21:00 10/28/18 20:59 Enoxaparin Sodium (Lovenox Inj) 30 mg Q24H SQ 10/29/17 08:00 11/28/17 07:59 Acetaminophen (Tylenol Tab) 650 mg Q4H PRN PO 10/28/17 20:45 11/27/17 20:44 Ondansetron HCl (Zofran Inj) 4 mg Q6H PRN IV 10/28/17 20:45 11/27/17 20:44 10/29/17 03:36 4 MG Metoclopramide HCl (Reglan Inj) 10 mg Q8H IV. 10/29/17 08:00 11/28/17 07:59 10/29/17 07:39 10 MG Prochlorperazine Edisylate 5 mg/ Syringe 5 ml @ 5 mls/min Q6H PRN IV 10/28/17 20:45 11/27/17 20:44 10/29/17 01:12 5 MLS/MIN Nicotine (Nicoderm Cq 21MG Patch) 1 patch QAM TD 10/29/17 09:00 11/28/17 08:59 Tramadol HCl (Ultram Tab) 25 mg Q6H PRN PO 10/28/17 20:45 11/27/17 20:44 Acetaminophen 650 mg/Empty Bag 65 ml @ 260 mls/hr Q6H PRN IV 10/28/17 20:45 11/27/17 20:44 Miscellaneous (Remove Nicoderm Patch) 1 ea HS N/A 10/29/17 21:00 11/28/17 20:59 Clonazepam (Klonopin Tab) 0.5 mg TID PRN PO 10/28/17 20:45 11/27/17 20:44 Colestipol HCl (Colestid Tab) 2 gm BID@1000,2200 PO 10/29/17 00:00 11/28/17 00:00 10/29/17 07:42 2 GM Digoxin (Lanoxin Tab) 0.125 mg QPM PO 10/28/17 21:00 11/27/17 20:59 Escitalopram Oxalate (Lexapro Tab) 20 mg HS PO 10/28/17 21:00 11/27/17 20:59 Famotidine (Pepcid Tab) 40 mg BID PO 10/28/17 21:00 11/27/17 20:59 10/29/17 07:40 40 MG Levothyroxine Sodium (Synthroid Tab) 75 mcg DAILYBB PO 10/29/17 06:30 11/28/17 06:29 10/29/17 06:13 75 MCG Pantoprazole Sodium (Protonix Tab) 40 mg BID PO 10/29/17 09:00 11/28/17 08:59 10/29/17 07:40 40 MG Al Hydroxide/Mg Trisilicate (Gaviscon Chew Tab) 2 tab TID PRN PO 10/28/17 20:45 11/27/17 20:44
[2017-10-29 14:58] VITALS: BP 95/59; PULSE 18; TEMP 37; O2SAT 96
[2017-10-29] MEDS ORDERED: PROMETHAZINE HCL INJ 12.5 MG in SODIUM CHLORIDE 0.9% 50ML 50 ML IV STA (17:16)
[2017-10-29] MEDS: DIGOXIN 0.125 MG TAB PO SCH (21:00)
[2017-10-29] MEDS: ESCITALOPRAM OXALATE 20 MG TAB PO SCH (21:00)
[2017-10-29 23:46] VITALS: BP 100/66; PULSE 64; TEMP 36.8; O2SAT 96
[2017-10-30] MEDS: METOCLOPRAMIDE HCL INJ 5 MG/ML 2 ML VIAL IV. SCH ×3 (00:12→16:15)
[2017-10-30] MEDS: PROCHLORPERAZINE INJ 5 MG in SYRINGE 4 ML IV PRN (02:57)
[2017-10-30 07:54] VITALS: BP 103/68; PULSE 50; TEMP 36.5; O2SAT 97
[2017-10-30] MEDS: ENOXAPARIN 30 MG/0.3 ML SYR SQ SCH (08:35)
[2017-10-30] MEDS: NICOTINE 21 MG/24 HR TDSY TD SCH (08:36)
[2017-10-30] MEDS: FAMOTIDINE 20 MG TAB PO SCH (09:12)
[2017-10-30] MEDS: PANTOprazole SOD 40 MG TAB PO SCH (09:12)
[2017-10-30] MEDS: COLESTIPOL HCL 1 GM TAB PO SCH (09:13)
[2017-10-30] MEDS: LEVOTHYROXINE 75 MCG TAB PO SCH (09:30)
[2017-10-30 14:53] VITALS: BP 108/75; PULSE 59; TEMP 36.6; O2SAT 97
--- NOTE | 2017-10-30 15:18 | Progress Note ---
Internal Med Progress Note Date of Service: Oct 30, 2017. Provider Documentation: SUBJECTIVE: Patient reports feeling better. No longer having dry heaves. Eating without discomfort OBJECTIVE: Exam: General- no acute distress Eyes- EOMI Neck-midline trachea, no JVD Chest: right chemoport with no erythema or tenderness Lungs- CTABL, no wheezing Heart- regular rate, Abdomen- soft, nontender, positive bowel sounds Extremities- no edema Neuro- awake and alert ASSESSMENT & PLAN: Imaging Chest/Abdominal X ray 10/28/17 "Right subclavian Mediport terminates in the mid SVC and has been accessed. Blunting of the right costophrenic angle, unchanged and possibly pleural thickening. Lungs and pleural spaces otherwise clear. Evidence of gastric banding. Multiple surgical clips project over the epigastrium. Cholecystectomy clips also noted. The esophagus is mildly distended with gas. Nonobstructive bowel gas pattern. No pneumoperitoneum, portal venous gas, or pneumatosis. Allowing for bowel gas and stool, no calcifications to suggest nephrolithiasis. Numerous pelvic phleboliths. Osseous structures normal. IMPRESSION: 1. No acute cardiopulmonary disease. 2. Postsurgical changes of gastric banding. No bowel obstruction." Hospital Course: Patient was evaluated on this hospital presentation for Intractable abdominal pain/Nausea/Vomiting and concerns for gastroparesis. Patient received Emend in the ER. Patient tolerated advancing of diet and reports she feels ready for hospital discharge. Patient has follow up appointment on 11/05/2017 1:20 PM Maddy Khan PA-C Internal Medicine [facility] Vital Signs: Date Time Temp Pulse Resp B/P (MAP) Pulse Ox O2 Delivery O2 Flow Rate FiO2 10/30/17 14:53 36.6 59 18 108/75 (86) 97 Room Air 10/30/17 08:00 Room Air 10/30/17 07:54 36.5 50 18 103/68 (80) 97 Room Air 10/30/17 00:20 Room Air 10/29/17 23:46 36.8 64 18 100/66 (77) 96 Room Air 10/29/17 19:30 Room Air 10/29/17 16:00 Room Air
--- NOTE | 2017-10-30 15:24 | Discharge Instructions ---
Discharge Instructions Date of Service Oct 30, 2017. Admission Reason for Admission: Abdominal Pain Discharge Discharge Diagnosis / Problem: abdominal pain, nausea, vomiting (dry heaves), rule out gastroparesis Discharge Goals Goal(s): Improve function Activity Recommendations Activity Limitations: per Instructions/Follow-up section Shower/Bathe: no limitations . Instructions / Follow-Up Instructions / Follow-Up Imaging Chest/Abdominal X ray 10/28/17 "Right subclavian Mediport terminates in the mid SVC and has been accessed. Blunting of the right costophrenic angle, unchanged and possibly pleural thickening. Lungs and pleural spaces otherwise clear. Evidence of gastric banding. Multiple surgical clips project over the epigastrium. Cholecystectomy clips also noted. The esophagus is mildly distended with gas. Nonobstructive bowel gas pattern. No pneumoperitoneum, portal venous gas, or pneumatosis. Allowing for bowel gas and stool, no calcifications to suggest nephrolithiasis. Numerous pelvic phleboliths. Osseous structures normal. IMPRESSION: 1. No acute cardiopulmonary disease. 2. Postsurgical changes of gastric banding. No bowel obstruction." Hospital Course: Patient was evaluated on this hospital presentation for Intractable abdominal pain/Nausea/Vomiting and concerns for gastroparesis. Patient received Emend in the ER. Patient tolerated advancing of diet and reports she feels ready for hospital discharge. Patient has follow up appointment on 11/05/2017 1:20 PM Maddy Khan PA-C Internal Medicine [facility] Current Hospital Diet Patient's current hospital diet: Regular Diet Discharge Diet Recommended Diet: Regular Diet Pending Studies Studies pending at discharge: no Laboratory Results 10/29/17 06:29 Red Blood Count 4.17, Mean Corpuscular Volume 80.8, Mean Corpuscular Hemoglobin 25.7, Mean Corpuscular Hemoglobin Concent 31.8, Mean Platelet Volume 9.2, Neutrophils (%) (Auto) 79.4, Lymphocytes (%) (Auto) 17.8, Monocytes (%) (Auto) 2.5, Eosinophils (%) (Auto) 0.0, Basophils (%) (Auto) 0.0, Neutrophils # (Auto) 2.58, Lymphocytes # (Auto) 0.58, Monocytes # (Auto) 0.08, Eosinophils # (Auto) 0.00, Basophils # (Auto) 0.00 10/29/17 06:29 Test 2/4/18 18:30 10/29/17 06:29 Magnesium Level 2.0 mg/dl (1.8-2.4) Total Bilirubin 0.4 mg/dl (0.2-1) Aspartate Amino Transf (AST/SGOT) 13 U/L (15-37) Alanine Aminotransferase (ALT/SGPT) 13 U/L (12-78) Alkaline Phosphatase 107 U/L (45-117) Total Protein 7.1 gm/dl (6.4-8.2) Albumin 3.6 gm/dl (3.4-5.0) Globulin 3.5 gm/dl (2.5-4.0) Albumin/Globulin Ratio 1.0 (0.9-2) Lipase 126 U/L (73-393) Digoxin Level 0.4 ng/ml (0.8-2.0) White Blood Count 3.25 K/uL (4.8-10.8) Red Blood Count 4.17 M/uL (4.2-5.4) Hemoglobin 10.7 g/dL (12.0-16.0) Hematocrit 33.7 % (37-47) Mean Corpuscular Volume 80.8 fL (80-100) Mean Corpuscular Hemoglobin 25.7 pg (25-34) Mean Corpuscular Hemoglobin Concent 31.8 g/dl (32-36) Platelet Count 266 K/uL (130-400) Mean Platelet Volume 9.2 fL (7.4-10.4) Neutrophils (%) (Auto) 79.4 % Lymphocytes (%) (Auto) 17.8 % Monocytes (%) (Auto) 2.5 % Eosinophils (%) (Auto) 0.0 % Basophils (%) (Auto) 0.0 % Neutrophils # (Auto) 2.58 K/uL (1.4-6.5) Lymphocytes # (Auto) 0.58 K/uL (1.2-3.4) Monocytes # (Auto) 0.08 K/uL (0.11-0.59) Eosinophils # (Auto) 0.00 K/uL (0-0.5) Basophils # (Auto) 0.00 K/uL (0-0.2) RDW Standard Deviation 52.4 fL (36.4-46.3) RDW Coefficient of Variation 17.6 % (11.5-14.5) Immature Granulocyte % (Auto) 0.3 % Immature Granulocyte # (Auto) 0.01 K/uL (0.00-0.02) Prothrombin Time 10.7 SECONDS (9.0-12.0) Prothromb Time International Ratio 1.0 (0.9-1.1) Anion Gap 8.0 mmol/L (3-11) Est Creatinine Clear Calc Drug Dose 63.7 ml/min Estimated GFR () 82.2 Estimated GFR (Non- 70.9 BUN/Creatinine Ratio 13.1 (10-20) Calcium Level 8.5 mg/dl (8.5-10.1) Medical Emergencies . Who to Call and When: Medical Emergencies: If at any time you feel your situation is an emergency, please call 911 immediately. . Non-Emergent Contact Non-Emergency issues call your: Primary Care Provider . . "Provider Documentation" section prepared by Matteo Mukherjee. . VTE Core Measure Inpt VTE Proph given/why not?: Enoxaparin (Lovenox)SQ
--- NOTE | 2017-10-30 15:27 | Discharge Summary ---
Discharge Summary Date of Service Oct 30, 2017. Discharge Summary Admission Date: Oct 28, 2017 at 20:36 Discharge Date: Oct 30, 2017 Discharge Disposition: Home Principal Diagnosis: abdominal pain, nausea, vomiting (dry heaves), rule out gastroparesis Medication Reconciliation Continued Medications: Albuterol Sulf (Proventil 0.083% 2.5MG/3ML) 2.5 Mg/3 Ml Nebu 3 ML INH Q4H PRN for Wheezing Aluminum Hydroxide-Mag Trisil (Gaviscon) 1 Chw Chw 2 TABS PO TID PRN for Dyspepsia Clonazepam (Klonopin) 0.5 Mg Tab 0.5 MG PO TID PRN for Anxiety/Agitation Colestipol Hcl (Colestid) 1 Gm Tab 2 GM PO BID AT 1000 & 2200, TAB Digoxin (Digoxin) 0.125 Mg Tab 0.125 MG PO QPM Ergocalciferol (Vitamin D 77083 Unit) 50,000 Unit Cap 1 CAP PO EVERY OTHER WEEK for 28 Days, #4 CAP 5 Refills Escitalopram Oxalate (Lexapro) 20 Mg Tab 20 MG PO HS, TAB Famotidine (Pepcid) 40 Mg Tab 40 MG PO BID, TAB Fosaprepitant Dimeglumine (Emend) 150 Mg Rosalia 150 MG IV MONTHLY Levothyroxine Sodium (Levothyroxine Sodium) 75 Mcg Tab 75 MCG PO QAM Metoclopramide (Reglan) 10 Mg Tab 10 MG PO TIDM, TAB Ondansetron Hcl (Zofran) 4 Mg Tab 4 MG PO Q6H PRN for Nausea, TAB Pantoprazole (Protonix) 40 Mg Tab 40 MG PO BID, #30 TAB Multivit-Min W/Fe-Fa ( And Iron) 1 Tab Tab 1 TAB PO QPM Promethazine (Phenergan Suppository) 25 Mg Supp 25 MG NC Q6H PRN for Nausea, #10 SUPP [Vitamin B] () 1 MG INJ MONTHLY Admission Information HPI (per Admitting provider): CHIEF COMPLAINT: Nausea, vomiting, abdominal pain. HISTORY OF PRESENT ILLNESS: History obtained from patient and records. Medical history significant for gastroparesis, hypothyroidism, COPD, history of MRSA, history of PACs and PVCs on digoxin, anxiety, depression, ongoing tobacco abuse, chronic anemia (baseline hemoglobin of 9-11). Recent confinement last month for gastroparesis flare up. One day history of achy epigastric pain, nausea, vomiting, emesis. Good bowel movement yesterday. No chest pain. No shortness of breath. Intractable symptoms despite the intervention in the Emergency Room. Physical Exam (per Admitting): PHYSICAL EXAMINATION: VITAL SIGNS: Blood pressure was noted to be 138/97, pulse rate 96, temperature 37, sats 97 on room air. GENERAL: Uncomfortable, no respiratory distress. SKIN: Pallor. Warm. HEENT: Pale palpebral conjunctivae. Dry mucosa. No ptosis. NECK: Supple, nontender. LUNGS: Decreased breath sounds. No tenderness. HEART: Regular rate and rhythm, no murmur. ABDOMEN: Epigastric tenderness, some distention. EXTREMITIES: No edema. No gross deformities. No tenderness. NEUROLOGIC: Coherent. No gross focality. Hospital Course Imaging Chest/Abdominal X ray 10/28/17 "Right subclavian Mediport terminates in the mid SVC and has been accessed. Blunting of the right costophrenic angle, unchanged and possibly pleural thickening. Lungs and pleural spaces otherwise clear. Evidence of gastric banding. Multiple surgical clips project over the epigastrium. Cholecystectomy clips also noted. The esophagus is mildly distended with gas. Nonobstructive bowel gas pattern. No pneumoperitoneum, portal venous gas, or pneumatosis. Allowing for bowel gas and stool, no calcifications to suggest nephrolithiasis. Numerous pelvic phleboliths. Osseous structures normal. IMPRESSION: 1. No acute cardiopulmonary disease. 2. Postsurgical changes of gastric banding. No bowel obstruction." Hospital Course: Patient was evaluated on this hospital presentation for Intractable abdominal pain/Nausea/Vomiting and concerns for gastroparesis. Patient received Emend in the ER. Patient tolerated advancing of diet and reports she feels ready for hospital discharge. Patient has follow up appointment on 11/05/2017 1:20 PM Maddy Khan PA-C Internal Medicine [facility] Total time spent on discharge = 60 minutes This includes examination of the patient, discharge planning, medication reconciliation, and communication with other providers. Discharge Instructions see above
[2017-10-30 15:39] VITALS: BP 108/75; PULSE 59; TEMP 36.6; O2SAT 97
== END 2017-10-30 19:16 | disposition home or self-care (01) ==
LOC: C.EDB 17:56 → C.MS2W 20:36 → ENRESERV 20:50
PROVIDERS: ADMIT Internal Medicine; ATTEND Hospitalist
DX: E86.0 Dehydration (principal); R10.9 Unspecified abdominal pain; R11.2 Nausea with vomiting, unspecified; K31.84 Gastroparesis; E03.9 Hypothyroidism, unspecified; J44.9 Chronic obstructive pulmonary disease, unspecified; E78.5 Hyperlipidemia, unspecified; F32.9 Major depressive disorder, single episode, unspecified; F17.200 Nicotine dependence, unspecified, uncomplicated; Z86.14 Personal history of Methicillin resistant Staphylococcus aureus infection; Z90.49 Acquired absence of other specified parts of digestive tract; Z90.710 Acquired absence of both cervix and uterus; Z90.3 Acquired absence of stomach [part of]; Z90.722 Acquired absence of ovaries, bilateral; Z83.3 Family history of diabetes mellitus; Z82.49 Family history of ischemic heart disease and other diseases of the circulatory system; Z84.1 Family history of disorders of kidney and ureter

== ENCOUNTER 2017-11-09 06:13 | Observation (INO) | payer OTHER ==
[~2017-11-09] VITALS: Ht 165.1 cm; Wt 66.0 kg
[~2017-11-09 06:13] MED LIST changes: +COLE1TAB PO; +PANT40TA PO; -PRT40 PO; +VITAMIN B INJ; -VITAMIN B SQ
[2017-11-09] MEDS ORDERED: METOCLOPRAMIDE HCL INJ 5 MG/ML 2 ML VIAL IV STA (06:44)
[2017-11-09] MEDS ORDERED: HYDROmorphone INJ 1 MG/ML SYR IV STA ×2 (06:44→08:43)
[2017-11-09] MEDS ORDERED: CAPSAICIN CR 0.075% 60 GM TUBE EXT STA (06:44)
[2017-11-09 06:53] LABS: BASO % 0.2 %; BASO ABS # 0.02 K/uL (0-0.2); EOS % 0.7 %; EOS ABS # 0.06 K/uL (0-0.5); HEMATOCRIT 36.4 % (37-47); IG# 0.02 K/uL (0.00-0.02); LYMPH % 21.1 %; LYMPH ABS # 1.78 K/uL (1.2-3.4); MEAN CELL VOLUME 79.3 fL (80-100); MEAN CORPUSCULAR HEMOGLOBIN 26.1 pg (25-34); MEAN PLATELET VOLUME 9.9 fL (7.4-10.4); MONO % 5.8 %; MONO ABS # 0.49 K/uL (0.11-0.59); NEUT ABS # 6.06 K/uL (1.4-6.5); PLATELET COUNT 275 K/uL (130-400); RED CELL DISTRIBUTION WIDTH CV 17.2 % (11.5-14.5); RED CELL DISTRIBUTION WIDTH SD 49.3 fL (36.4-46.3); WHITE BLOOD COUNT 8.43 K/uL (4.8-10.8)
[2017-11-09 07:01] LABS: ALBUMIN 3.7 gm/dl (3.4-5.0); ALT/SGPT 15 U/L (12-78); AST/SGOT 12 U/L (15-37); BLOOD UREA NITROGEN 7 mg/dl (7-18); CALCIUM 8.8 mg/dl (8.5-10.1); CARBON DIOXIDE 18 mmol/L (21-32); GLUCOSE 109 mg/dl (70-99); LIPASE 150 U/L (73-393); POTASSIUM 3.8 mmol/L (3.5-5.1); SODIUM 140 mmol/L (136-145)
--- NOTE | 2017-11-09 07:01 | EMERGENCY ROOM VISIT NOTE ---
History Report prepared by [place]: Magda Negrete Under the Supervision of: Dr. Jose Elias Cheema M.D. First contact with patient: 06:28 Chief Complaint: NAUSEA Stated Complaint: NAUSEA,ABD PAIN (HX GASTROPARESIS) History of Present Illness The patient is a 57 year old female who presents to the Emergency Room with complaints of persistent nausea and vomiting that began around 0200, almost 5 hours ago. The patient has a history of gastroparesis, noting she often has abdominal pain. She reports that her current abdominal pain radiates to her back , noting it is not the worse her abdominal pain has ever been. Source of History: patient Onset: 0200, almost 5 hours ago Position: other (global) Quality: other (nausea and vomiting) Timing: other (persistent) Associated Symptoms: + abdominal pain (radiates to her back) Review of Systems See HPI for pertinent positives & negatives. A total of 10 systems reviewed and were otherwise negative. Past Medical & Surgical Medical Problems: (1) Anemia, iron deficiency (2) Anxiety (3) Asthma (4) COPD (chronic obstructive pulmonary disease) (5) Depression (6) Diverticulosis (7) Frequent PVCs (8) Gastroparesis (9) GERD (gastroesophageal reflux disease) (10) Hypothyroidism (11) Mitral regurgitation (12) MRSA bacteremia (13) Neuropathy (14) Pemphigus vulgaris (15) Pernicious anemia (16) Premature atrial contractions (17) Tobacco abuse Surgical Problems: (1) H/O oophorectomy (2) History of bladder surgery (3) S/P hysterectomy (4) S/P laparoscopic sleeve gastrectomy (5) S/P partial gastrectomy (6) S/P repair of paraesophageal hernia (7) S/P tonsillectomy and adenoidectomy Family History Diabetes mellitus MOTHER SISTER FH: aneurysm FH: cancer FH: heart disease FATHER MOTHER Hypertension BROTHER Kidney disease Social History Smoking Status: Current Every Day Smoker Alcohol Use: none Drug Use: none Marital Status: single Housing Status: lives alone Occupation Status: disabled Current/Historical Medications Scheduled Cyanocobalamin (Vitamin B-12 1000 Mcg), 1,000 MCG IM UD Digoxin (Digoxin), 0.125 MG PO QPM Ergocalciferol (Vitamin D 53456 Unit), 1 CAP PO WK Escitalopram Oxalate (Lexapro), 20 MG PO HS Famotidine (Pepcid), 40 MG PO BID Fosaprepitant Dimeglumine (Emend), 150 MG IV MONTHLY Levothyroxine Sodium (Levothyroxine Sodium), 75 MCG PO QAM Metoclopramide (Reglan), 10 MG PO TIDM Pantoprazole (Protonix), 40 MG PO BID Multivit-Min W/Fe-Fa ( And Iron), 1 TAB PO QPM Scheduled PRN Albuterol Sulf (Proventil 0.083% 2.5MG/3ML), 3 ML INH Q4H PRN for Wheezing Aluminum Hydroxide-Mag Trisil (Gaviscon), 2 TABS PO TID PRN for Dyspepsia Clonazepam (Klonopin), 0.5 MG PO TID PRN for Anxiety/Agitation Ondansetron Hcl (Zofran), 4 MG PO Q6H PRN for Nausea Promethazine (Phenergan Suppository), 25 MG VA Q6H PRN for Nausea Allergies Coded Allergies: Adhesives (Verified Allergy, Mild, SKIN IRRITATION, 11/09/17) Amoxicillin (Verified Adverse Reaction, Intermediate, yeast infection, ) NSAIDs (Verified Adverse Reaction, Mild, indegestion, 11/09/17) Rofecoxib (Verified Adverse Reaction, Mild, indigestion, 11/09/17) Scopolamine (Verified Adverse Reaction, Mild, rash from patch, 11/09/17) Physical Exam Vital Signs Date Time Temp Pulse Resp B/P (MAP) Pulse Ox O2 Delivery O2 Flow Rate FiO2 11/09/17 09:04 74 16 108/79 98 Room Air 11/09/17 08:48 96 Room Air 11/09/17 08:48 96 Room Air 11/09/17 07:53 77 11/09/17 07:51 78 16 131/91 11/09/17 06:20 36.9 79 16 130/84 97 Room Air Physical Exam GENERAL: Patient is a healthy-appearing well-nourished female, holding a bag of vomit. HEAD: Normocephalic atraumatic EYES: Ocular movements intact pupils equal and react to light OROPHARYNX mucous membranes are moist no exudates present no erythema or edema present NECK: Supple no nuchal rigidity CHEST: Good equal expansion LUNGS: Clear and equal to auscultation CARDIAC: Normal S1 and S2 ABDOMEN: Soft nontender no guarding BACK: No CVA tenderness EXTREMITIES: No pain upon palpation normal muscle strength in all groups no clubbing cyanosis or edema NEURO: Patient is following commands and answering questions appropriately. Alert and oriented x3 Cranial Nerves 2-12 grossly intact Medical Decision & Procedures ER Provider Diagnostic Interpretation: ABDOMEN 2VIEW W/PA CHEST RTN CLINICAL HISTORY: Pt c/o epigastric pain pain COMPARISON STUDY: 10/28/2017 FINDINGS: Lungs remain generally clear. No evidence for cardiac enlargement. Stable postoperative changes consistent with gastric banding procedure. Central catheter in superior vena cava unchanged. Nonobstructive bowel pattern. IMPRESSION: Chronic and postoperative change. No acute process. The above report was generated using voice recognition software. It may contain grammatical, syntax or spelling errors. Electronically signed by: Mele Bone M.D. 11/09/2017 8:31 AM Dictated Date/Time: 11/09/2017 8:29 AM Laboratory Results Test 11/09/17 06:35 Immature Granulocyte % (Auto) 0.2 % White Blood Count 8.43 K/uL (4.8-10.8) Red Blood Count 4.59 M/uL (4.2-5.4) Hemoglobin 12.0 g/dL (12.0-16.0) Hematocrit 36.4 % (37-47) Mean Corpuscular Volume 79.3 fL (80-100) Mean Corpuscular Hemoglobin 26.1 pg (25-34) Mean Corpuscular Hemoglobin Concent 33.0 g/dl (32-36) Platelet Count 275 K/uL (130-400) Mean Platelet Volume 9.9 fL (7.4-10.4) Neutrophils (%) (Auto) 72.0 % Lymphocytes (%) (Auto) 21.1 % Monocytes (%) (Auto) 5.8 % Eosinophils (%) (Auto) 0.7 % Basophils (%) (Auto) 0.2 % Neutrophils # (Auto) 6.06 K/uL (1.4-6.5) Lymphocytes # (Auto) 1.78 K/uL (1.2-3.4) Monocytes # (Auto) 0.49 K/uL (0.11-0.59) Eosinophils # (Auto) 0.06 K/uL (0-0.5) Basophils # (Auto) 0.02 K/uL (0-0.2) Immature Granulocyte # (Auto) 0.02 K/uL (0.00-0.02) Est Creatinine Clear Calc Drug Dose 54.5 ml/min Total Bilirubin 0.5 mg/dl (0.2-1) Direct Bilirubin 0.1 mg/dl (0-0.2) Aspartate Amino Transf (AST/SGOT) 12 U/L (15-37) Alanine Aminotransferase (ALT/SGPT) 15 U/L (12-78) Alkaline Phosphatase 109 U/L (45-117) Total Creatine Kinase 66 U/L (26-192) Creatine Kinase MB 0.7 ng/ml (0.5-3.6) Creatine Kinase MB Ratio 1.1 (0-3.0) Troponin I < 0.015 ng/ml (0-0.045) Total Protein 7.2 gm/dl (6.4-8.2) Albumin 3.7 gm/dl (3.4-5.0) Lipase 150 U/L (73-393) Digoxin Level 0.6 ng/ml (0.8-2.0) Labs reviewed by ED physician. Medications Administered Medications (Trade) Dose Ordered Sig/Marisol Route Start Time Stop Time Status Last Admin Dose Admin Hydromorphone HCl (Dilaudid Inj) 1 mg NOW STAT IV 11/09/17 06:44 11/09/17 06:47 DC 11/09/17 07:11 1 MG Metoclopramide HCl (Reglan Inj) 10 mg NOW STAT IV 11/09/17 06:44 11/09/17 06:47 DC 11/09/17 07:11 10 MG Capsaicin (Zostrix Crm) 1 appln NOW STAT EXT 11/09/17 06:44 11/09/17 06:47 DC 11/09/17 07:11 1 APPLN Methylprednisolone Sodium Succinate (Solu-Medrol IV) 125 mg NOW STAT IV 11/09/17 07:39 11/09/17 07:41 DC 11/09/17 07:47 125 MG Ondansetron HCl (Zofran Inj) 4 mg NOW STAT IV 11/09/17 07:39 11/09/17 07:41 DC 11/09/17 07:47 4 MG Promethazine HCl 25 mg/Sodium Chloride 51 ml @ 204 mls/hr Q6H PRN IV 11/09/17 08:45 12/09/17 08:44 11/09/17 09:02 204 MLS/HR Acetaminophen (Tylenol Tab) 650 mg Q4H PRN PO 11/09/17 09:15 12/09/17 09:14 11/09/17 19:56 650 MG ED Course 0632: Past medical records reviewed. The patient was evaluated in room B2. A complete history and physical examination was performed. 0644: Ordered Capsaicin 1 appln, Reglan Inj 10mg IV, and Dilaudid Inj 1gm IV. 0739: Ordered Zofran Inj 4mg IV and Solu-Medrol IV 125mg. 0825: I discussed the patient's case with Stephanie Aranda. We discussed possible treatment plans. 0852: I discussed the patient's case with Alexa Castillo, BARBARA, She has agreed to evaluate the patient for further management and care. 0910: I reevaluated the patient and discussed test findings with her. She verbalized complete understanding and agreement of the treatment plan. Medical Decision Differential diagnosis: Etiologies such as appendicitis, diverticulitis, PUD, biliary pathology, UTI, pancreatitis, obstruction, mesenteric ischemia, aortic pathology, infections, inflammatory bowel disease, renal colic, as well as others were entertained. This is a 57-year-old female who presents emergency department with intractable vomiting. The patient has a history of gastroparesis. She is complaining of pain to the epigastric area however the patient has benign abdominal examination. Serial abdominal examinations were performed on the patient in the emergency department. The patient had an IV established, given Reglan, Zofran, Solu-Medrol. Repeat examination revealed patient to still be vomiting. She was also given Dilaudid here in the emergency department for pain. Her x- rays do not show any evidence of obstruction. I did discuss the case with gastroenterology who recommended that the patient be admitted. Medication Reconcilliation Current Medication List: was personally reviewed by me Blood Pressure Screening Patient's blood pressure: Normal blood pressure Blood pressure disposition: Did not require urgent referral Consults Time Called: 824 Consulting Physician: Stephanie Aranda Returned Call: [phone] I discussed the patient's case with Stephanie Aranda. We discussed possible treatment plans. Additional Consults: Time Called: 851 Consulted Physician: Alexa Castillo NP Returned Call: [phone] Additional Comments: I discussed the patient's case with Alexa Castlilo NP, She has agreed to evaluate the patient for further management and care. Impression Primary Impression: Intractable vomiting Scribe Attestation The scribe's documentation has been prepared under my direction and personally reviewed by me in its entirety. I confirm that the note above accurately reflects all work, treatment, procedures, and medical decision making performed by me. Departure Information Dispostion Being Evaluated By Hospitalist Jaleel Solomon M.D. (PCP) Forms HOME CARE DOCUMENTATION FORM, IMPORTANT VISIT INFORMATION Patient Instructions My [facility] Problem Qualifiers Primary Impression: Intractable vomiting Vomiting type: unspecified Nausea presence: unspecified Qualified Codes: R11.10 - Vomiting, unspecified
[2017-11-09 07:06] LABS: ALKALINE PHOSPHATASE 109 U/L (45-117); CKMB 0.7 ng/ml (0.5-3.6); TOTAL PROTEIN 7.2 gm/dl (6.4-8.2)
[2017-11-09] MEDS ORDERED: METHYLPREDNISOLONE 125 MG VIAL IV STA (07:39)
[2017-11-09] MEDS ORDERED: ONDANSETRON INJ 2 MG/ML 2 ML VIAL IV STA (07:39)
--- NOTE | 2017-11-09 08:32 | DIAGNOSTIC IMAGING REPORT ---
ABDOMEN 2VIEW W/PA CHEST RTN CLINICAL HISTORY: Pt c/o epigastric pain pain COMPARISON STUDY: 10/28/2017 FINDINGS: Lungs remain generally clear. No evidence for cardiac enlargement. Stable postoperative changes consistent with gastric banding procedure. Central catheter in superior vena cava unchanged. Nonobstructive bowel pattern. IMPRESSION: Chronic and postoperative change. No acute process. The above report was generated using voice recognition software. It may contain grammatical, syntax or spelling errors. Electronically signed by: Mele Bone M.D. 11/09/2017 8:31 AM Dictated Date/Time: 11/09/2017 8:29 AM
[2017-11-09] MEDS ORDERED: PROMETHAZINE HCL 25 MG SUPP PR SCH (08:45)
[2017-11-09] MEDS ORDERED: PROMETHAZINE HCL INJ 25 MG in SODIUM CHLORIDE 0.9% 50ML 50 ML IV PRN (08:45)
[2017-11-09] MEDS ORDERED: LORAZEPAM 2 MG/ML 1 ML VIAL IV PRN (09:00)
[2017-11-09] MEDS ORDERED: ACETAMINOPHEN 325 MG TAB PO PRN (09:15)
[2017-11-09] MEDS ORDERED: ONDANSETRON INJ 2 MG/ML 2 ML VIAL IV PRN (09:15)
[2017-11-09] MEDS ORDERED: DEXL30CA5 PO (09:31)
[2017-11-09] MEDS ORDERED: CYAN10004 IM (09:31)
--- NOTE | 2017-11-09 09:55 | Gastrointestinal Consultation ---
Gastrointestinal Consultation Date of Consultation: Nov 09, 2017 Attending Physician: Alexa Castillo/Stephanie Hospitalist Consulting Physician: Dr. Moreno Reason for Consultation: Intractable nausea vomiting, gastroparesis History of Present Illness Patient is a 57 year old female, patient of Dr. Coppola with a history of hypothyroidism, anxiety, COPD/asthma, status post Fan for paraesophageal hernia repair with partial gastrectomy. She is well known to our group as she experiences periodic worsening of gastroparesis and dumping syndrome. She was awakened early this morning by nausea and dry heaving. She recognized the symptoms as being similar to previous episodes of gastroparesis flarse. At baseline, she is maintained on Emend 150 mg IV monthly, Reglan 10 mg p.o. 3 times daily and Phenergan 25 mg rectally every 6 hours as needed for nausea. She also carries a history of chronic diarrhea, typically having 3-5 loose bowel movements per day, always after meals. She is seen and examined while she is in the emergency room. She has already received Dilaudid 1 Zofran IV and IV fluids. She has not had any improvement in her nausea vomiting or stomach and back pain. CBC CMP are normal with the exception of slightly low serum CO2. She was witnessed to have several episodes of dry heaving during her interview and exam. She denies any. No chest pain, fevers or jaundice dark urine or acholic stools. Past Medical/Surgical History Medical Problems: (1) Anxiety State Nos Status: Chronic (2) Chronic Obstructive Asthma, Nos Status: Chronic (3) Dehydration Status: Acute (4) Dehydration Status: Acute (5) Dehydration Status: Acute (6) Dumping syndrome Status: Acute (7) Epigastric abdominal pain Status: Acute (8) Esophagitis Nos Status: Chronic (9) Failure of outpatient treatment Status: Acute (10) Hyperlipidemia Nec/Nos Status: Chronic (11) Hypothyroidism Nos Status: Chronic (12) Intractable nausea and vomiting Status: Acute (13) Intractable nausea and vomiting Status: Acute (14) Intractable nausea and vomiting Status: Acute (15) Intractable nausea and vomiting Status: Acute (16) Intractable vomiting Status: Acute (17) Iron Defic Anemia Nos Status: Chronic (18) Nausea Status: Acute (19) Nausea & vomiting Status: Acute (20) Nausea and vomiting Status: Acute (21) Pernicious Anemia Status: Chronic (22) Vomiting Status: Acute (23) Vomiting Status: Acute Surgical Problems: (1) S/P repair of paraesophageal hernia Status: Chronic Past Medical History: 1. Hypothyroidism 2. COPD 3. Anxiety 4. Gastroparesis 5. Dumping syndrome Past Surgical History: 1. Fan fundoplication, partial gastrectomy. 2. Most recent EGD 2013 without significant abnormalities. Family History Diabetes mellitus MOTHER SISTER FH: aneurysm FH: cancer FH: heart disease FATHER MOTHER Hypertension BROTHER Kidney disease Social History Smoking Status: Current Every Day Smoker Alcohol Use: none Drug Use: none Marital Status: single Housing Status: lives alone Occupation Status: disabled Allergies Coded Allergies: Adhesives (Verified Allergy, Mild, SKIN IRRITATION, 11/09/17) Amoxicillin (Verified Adverse Reaction, Intermediate, yeast infection, ) NSAIDs (Verified Adverse Reaction, Mild, indegestion, 11/09/17) Rofecoxib (Verified Adverse Reaction, Mild, indigestion, 11/09/17) Scopolamine (Verified Adverse Reaction, Mild, rash from patch, 11/09/17) Current Medications Home Meds and Scripts Medications Dose Route/Sig Max Daily Dose Days Date Category Vitamin B-12 1000 Mcg (Cyanocobalamin) 1,000 Mcg Tab 1,000 Mcg IM UD 30 11/09/17 Reported Dexilant (Dexlansoprazole) 30 Mg Cap 30 Mg PO DAILY 11/09/17 Reported Colestid (Colestipol Hcl) 1 Gm Tab 2 Gm PO BID AT 1000 & 2200 10/28/17 Reported Protonix (Pantoprazole Sodium) 40 Mg Tab 40 Mg PO BID 10/28/17 Reported Proventil 0.083% 2.5MG/3ML (Albuterol Sulf) 2.5 Mg/3 Ml Nebu 3 Ml INH Q4H PRN 08/08/17 Reported Reglan (Metoclopramide HCl) 10 Mg Tab 10 Mg PO TIDM 08/08/17 Reported Lexapro (Escitalopram Oxalate) 20 Mg Tab 20 Mg PO HS 08/08/17 Reported Vitamin D 52616 Unit (Ergocalciferol) 50,000 Unit Cap 1 Cap PO EVERY OTHER WEEK 28 08/06/17 Reported Phenergan Suppository (Promethazine HCl) 25 Mg Supp 25 Mg SD Q6H PRN 06/15/17 Reported Pepcid (Famotidine) 40 Mg Tab 40 Mg PO BID 04/15/17 Reported Digoxin 0.125 Mg Tab 0.125 Mg PO QPM 11/02/16 Reported And Iron ( Multivit-Min W/Fe-Fa) 1 Tab Tab 1 Tab PO QPM 11/02/16 Reported Emend (Fosaprepitant Dimeglumine) 150 Mg Rosalia 150 Mg IV MONTHLY 10/06/16 Reported Gaviscon (Aluminum Hydroxide-Mag Trisil) 1 Chw Chw 2 Tabs PO TID PRN 08/23/16 Reported Zofran (Ondansetron HCl) 4 Mg Tab 4 Mg PO Q6H PRN 07/25/15 Reported Klonopin (Clonazepam) 0.5 Mg Tab 0.5 Mg PO TID PRN 06/22/14 Reported Levothyroxine Sodium 75 Mcg Tab 75 Mcg PO QAM 10/31/13 Reported Review of Systems Constitutional: No fever, No chills, No sweats, No weight loss, No weakness Eyes: No eye pain, No redness ENT: No sore throat, No trouble swallowing, No pain on swallowing Respiratory: No cough, No wheezing, No shortness of breath, No dyspnea on exertion Cardiac: No chest pain, No edema, No palpitations Abdomen: + see HPI, + pain, + nausea, + vomiting, + diarrhea, No constipation, No GI bleeding, No dysphagia, No odynophagia, No acolic stools, No jaundice Neuro: No memory loss, No weakness, No numbness/tingling, No vertigo, No balance problems Psych: No depression symptoms, No anxiety, No insomnia Heme: No abnormal bleeding/bruising, No night sweats Endo: No excessive thirst, No excessive urination Skin: No rash, No itch, No new/changing skin lesions, No jaundice Physical Exam Date Time Temp Pulse Resp B/P (MAP) Pulse Ox O2 Delivery O2 Flow Rate FiO2 11/09/17 09:04 74 16 108/79 98 Room Air 11/09/17 08:48 96 Room Air 11/09/17 08:48 96 Room Air 11/09/17 07:53 77 11/09/17 07:51 78 16 131/91 11/09/17 06:20 36.9 79 16 130/84 97 Room Air General Appearance: + moderate distress (from nausea, vomiting) Eyes: normal inspection, EOMI Neck: supple, no adenopathy, thyroid normal Respiratory/Chest: chest non-tender, lungs clear, normal breath sounds, no accessory muscle use Cardiovascular: regular rate, rhythm, no JVD, no murmur Abdomen: normal bowel sounds, soft, no organomegaly, + tenderness (moderate, define abdominal tenderness) Extremities: normal inspection, no pedal edema, normal capillary refill Neurologic/Psych: alert, normal mood/affect, oriented x 3 Skin: normal color, no jaundice, warm/dry, no rash Laboratory Results Last 24 Hours Test 11/09/17 06:35 White Blood Count 8.43 K/uL Red Blood Count 4.59 M/uL Hemoglobin 12.0 g/dL Hematocrit 36.4 % Mean Corpuscular Volume 79.3 fL Mean Corpuscular Hemoglobin 26.1 pg Mean Corpuscular Hemoglobin Concent 33.0 g/dl Platelet Count 275 K/uL Mean Platelet Volume 9.9 fL Neutrophils (%) (Auto) 72.0 % Lymphocytes (%) (Auto) 21.1 % Monocytes (%) (Auto) 5.8 % Eosinophils (%) (Auto) 0.7 % Basophils (%) (Auto) 0.2 % Neutrophils # (Auto) 6.06 K/uL Lymphocytes # (Auto) 1.78 K/uL Monocytes # (Auto) 0.49 K/uL Eosinophils # (Auto) 0.06 K/uL Basophils # (Auto) 0.02 K/uL RDW Standard Deviation 49.3 fL RDW Coefficient of Variation 17.2 % Immature Granulocyte % (Auto) 0.2 % Immature Granulocyte # (Auto) 0.02 K/uL Sodium Level 140 mmol/L Potassium Level 3.8 mmol/L Chloride Level 111 mmol/L Carbon Dioxide Level 18 mmol/L Anion Gap 11.0 mmol/L Blood Urea Nitrogen 7 mg/dl Creatinine 1.00 mg/dl Est Creatinine Clear Calc Drug Dose 54.5 ml/min Estimated GFR () 71.4 Estimated GFR (Non- 61.6 BUN/Creatinine Ratio 6.7 Random Glucose 109 mg/dl Calcium Level 8.8 mg/dl Total Bilirubin 0.5 mg/dl Direct Bilirubin 0.1 mg/dl Aspartate Amino Transf (AST/SGOT) 12 U/L Alanine Aminotransferase (ALT/SGPT) 15 U/L Alkaline Phosphatase 109 U/L Total Creatine Kinase 66 U/L Creatine Kinase MB 0.7 ng/ml Creatine Kinase MB Ratio 1.1 Troponin I < 0.015 ng/ml Total Protein 7.2 gm/dl Albumin 3.7 gm/dl Lipase 150 U/L Digoxin Level 0.6 ng/ml Impression Patient is a 57 year old female with nausea, vomiting, secondary to gastroparesis flare. Plan 1. Appreciate primary hospitalist management of IV fluids. 2. Zofran 4mg Q6hrs, phenergan 25mg IV Q6, prn. 3. Ativan 1mg IV Q6hrs - encouraged pt to ask for this prior to asking for pain medicine. 4. One dose of Emend 150mg IV today. 5. Clear liquid diet. 6. No plans for endoscopy at this time. 7. GI will continue to follow. I have seen , examined and agree with the plan as outlined by VANIA Scott as above. -exam reveals soft abd -presentation consistent with prior gastroparetic flares -No signs of obstruction -continue symptomatic care
[2017-11-09 10:45] VITALS: BP 122/81; PULSE 67; TEMP 36.7; O2SAT 97; Ht 165.1 cm; Wt 66.0 kg
[2017-11-09] MEDS ORDERED: LORAZEPAM INJ 1 MG in SYRINGE 0.5 ML IV PRN (11:15)
[2017-11-09] MEDS ORDERED: FOSAPREPITANT DIMEGLUMINE INJ 150 MG in SODIUM CHLORIDE 0.9% 150ML 145 ML IV SCH (11:30)
[2017-11-09] MEDS: SODIUM CHLORIDE 0.9% 1000ML 1,000 ML IV SCH ×2 (11:34→23:46)
--- NOTE | 2017-11-09 11:38 | History and Physical ---
History & Physical Date & Time of Service: Nov 09, 2017 ~ 08:45 Chief Complaint: Nausea, Vomiting Primary Care Physician: Jaleel Coppola M.D. History of Present Illness 57 year old female who presents to the ED with persistent nausea and vomiting. Patient is well known to our service. She was recently admitted 10/28 - 10/30 for similar symptoms. Patient reports she woke up at around 0200am out of sleep with severe nausea and persistent dry heaves. She denies having any emesis. She had epigastric pain that radiated into her back. She reports she had been feeling well since her discharge. Of note, she did miss her hospital follow up appointment. When inquired about it, patient states, "I just didn't want to go. " She has chronic diarrhea which is unchanged. No BRBPR or dark tarry stools. She denies chest pain, shortness of breath, lightheadedness, dizziness, diaphoresis. No fevers or chills. She denies any urinary symptoms. In the ED, patient's vitals are stable and labs are unremarkable. GI evaluated the patient in the ED and recommended observation. Past Medical/Surgical History Medical Problems: (1) Anemia, iron deficiency Status: Chronic (2) Anxiety Status: Chronic (3) Asthma Status: Chronic (4) COPD (chronic obstructive pulmonary disease) Status: Chronic (5) Depression Status: Chronic (6) Diverticulosis Status: Chronic (7) Frequent PVCs Status: Chronic (8) Gastroparesis Status: Chronic (9) GERD (gastroesophageal reflux disease) Status: Chronic (10) Hypothyroidism Status: Chronic (11) Mitral regurgitation Permanent Comment: moderate per echo 09/21/15 Status: Chronic (12) MRSA bacteremia Status: Resolved (13) Neuropathy Status: Chronic (14) Pemphigus vulgaris Status: Chronic (15) Pernicious anemia Status: Chronic (16) Premature atrial contractions Status: Chronic (17) Tobacco abuse Status: Chronic Surgical Problems: (1) H/O oophorectomy Permanent Comment: left ovary Status: Chronic (2) History of bladder surgery Status: Chronic (3) S/P hysterectomy Status: Chronic (4) S/P laparoscopic sleeve gastrectomy Status: Chronic (5) S/P partial gastrectomy Status: Chronic (6) S/P repair of paraesophageal hernia Permanent Comment: resulted in volvulus, required abdominal exploration Status: Chronic (7) S/P tonsillectomy and adenoidectomy Status: Chronic Family History Diabetes mellitus MOTHER SISTER FH: aneurysm FH: cancer FH: heart disease FATHER MOTHER Hypertension BROTHER Kidney disease Social History Smoking Status: Current Every Day Smoker Alcohol Use: none Immunizations History of Influenza Vaccine: Yes Influenza Vaccine Date: Jul 17, 2017 History of Tetanus Vaccine?: Yes Tetanus Immunization Date: Jul 21, 2008 History of Pneumococcal: Yes Pneumococcal Date: Jun 22, 2009 Multi-Drug Resistant Organisms History of MDRO: Yes Type of MDRO: MRSA Allergies Coded Allergies: Adhesives (Verified Allergy, Mild, SKIN IRRITATION, 11/09/17) Amoxicillin (Verified Adverse Reaction, Intermediate, yeast infection, ) NSAIDs (Verified Adverse Reaction, Mild, indegestion, 11/09/17) Rofecoxib (Verified Adverse Reaction, Mild, indigestion, 11/09/17) Scopolamine (Verified Adverse Reaction, Mild, rash from patch, 11/09/17) Home Medications Scheduled Cyanocobalamin (Vitamin B-12 1000 Mcg), 1,000 MCG IM UD Digoxin (Digoxin), 0.125 MG PO QPM Ergocalciferol (Vitamin D 27325 Unit), 1 CAP PO WK Escitalopram Oxalate (Lexapro), 20 MG PO HS Famotidine (Pepcid), 40 MG PO BID Fosaprepitant Dimeglumine (Emend), 150 MG IV MONTHLY Levothyroxine Sodium (Levothyroxine Sodium), 75 MCG PO QAM Metoclopramide (Reglan), 10 MG PO TIDM Pantoprazole (Protonix), 40 MG PO BID Multivit-Min W/Fe-Fa ( And Iron), 1 TAB PO QPM Scheduled PRN Albuterol Sulf (Proventil 0.083% 2.5MG/3ML), 3 ML INH Q4H PRN for Wheezing Aluminum Hydroxide-Mag Trisil (Gaviscon), 2 TABS PO TID PRN for Dyspepsia Clonazepam (Klonopin), 0.5 MG PO TID PRN for Anxiety/Agitation Ondansetron Hcl (Zofran), 4 MG PO Q6H PRN for Nausea Promethazine (Phenergan Suppository), 25 MG NV Q6H PRN for Nausea Review of Systems ROS per HPI, all other systems reviewed and negative Physical Exam Vital Signs Date Time Temp Pulse Resp B/P (MAP) Pulse Ox O2 Delivery O2 Flow Rate FiO2 11/09/17 09:04 74 16 108/79 98 Room Air 11/09/17 08:48 96 Room Air 11/09/17 08:48 96 Room Air 11/09/17 07:53 77 11/09/17 07:51 78 16 131/91 11/09/17 06:20 36.9 79 16 130/84 97 Room Air General Appearance: WD/WN, no apparent distress Head: normocephalic, atraumatic Eyes: normal inspection, EOMI ENT: hearing grossly normal, + pertinent finding (mucous membranes moist) Neck: supple, no JVD, trachea midline Respiratory/Chest: lungs clear, normal breath sounds, no respiratory distress Cardiovascular: regular rate, rhythm, no edema, normal peripheral pulses Abdomen/GI: normal bowel sounds, non tender, soft, no organomegaly Extremities/Musculoskelatal: normal inspection, no calf tenderness, normal capillary refill Neurologic/Psych: no motor/sensory deficits, alert, normal mood/affect, oriented x 3 Skin: normal color, warm/dry Diagnostics Laboratory Results Results Past 24 Hours Test 11/09/17 06:35 Range/Units White Blood Count 8.43 4.8-10.8 K/uL Red Blood Count 4.59 4.2-5.4 M/uL Hemoglobin 12.0 12.0-16.0 g/dL Hematocrit 36.4 37-47 % Mean Corpuscular Volume 79.3 80-100 fL Mean Corpuscular Hemoglobin 26.1 25-34 pg Mean Corpuscular Hemoglobin Concent 33.0 32-36 g/dl Platelet Count 275 130-400 K/uL Mean Platelet Volume 9.9 7.4-10.4 fL Neutrophils (%) (Auto) 72.0 % Lymphocytes (%) (Auto) 21.1 % Monocytes (%) (Auto) 5.8 % Eosinophils (%) (Auto) 0.7 % Basophils (%) (Auto) 0.2 % Neutrophils # (Auto) 6.06 1.4-6.5 K/uL Lymphocytes # (Auto) 1.78 1.2-3.4 K/uL Monocytes # (Auto) 0.49 0.11-0.59 K/uL Eosinophils # (Auto) 0.06 0-0.5 K/uL Basophils # (Auto) 0.02 0-0.2 K/uL RDW Standard Deviation 49.3 36.4-46.3 fL RDW Coefficient of Variation 17.2 11.5-14.5 % Immature Granulocyte % (Auto) 0.2 % Immature Granulocyte # (Auto) 0.02 0.00-0.02 K/uL Sodium Level 140 136-145 mmol/L Potassium Level 3.8 3.5-5.1 mmol/L Chloride Level 111 98-107 mmol/L Carbon Dioxide Level 18 21-32 mmol/L Anion Gap 11.0 3-11 mmol/L Blood Urea Nitrogen 7 7-18 mg/dl Creatinine 1.00 0.60-1.20 mg/dl Est Creatinine Clear Calc Drug Dose 54.5 ml/min Estimated GFR () 71.4 Estimated GFR (Non- 61.6 BUN/Creatinine Ratio 6.7 10-20 Random Glucose 109 70-99 mg/dl Calcium Level 8.8 8.5-10.1 mg/dl Total Bilirubin 0.5 0.2-1 mg/dl Direct Bilirubin 0.1 0-0.2 mg/dl Aspartate Amino Transf (AST/SGOT) 12 15-37 U/L Alanine Aminotransferase (ALT/SGPT) 15 12-78 U/L Alkaline Phosphatase 109 45-117 U/L Total Creatine Kinase 66 26-192 U/L Creatine Kinase MB 0.7 0.5-3.6 ng/ml Creatine Kinase MB Ratio 1.1 0-3.0 Troponin I < 0.015 0-0.045 ng/ml Total Protein 7.2 6.4-8.2 gm/dl Albumin 3.7 3.4-5.0 gm/dl Lipase 150 73-393 U/L Digoxin Level 0.6 0.8-2.0 ng/ml Diagnostic Radiology CHEST/ABD XR IMPRESSION: Chronic and postoperative change. No acute process. Impression Assessment and Plan INTRACTABLE NAUSEA, VOMITING HX GASTROPARESIS - admit to med/surg - patient presenting with intractable nausea, vomiting, and dry heaves; well known to our service with frequent admissions for similar symptoms, most recently admitted 10/28 - 10/30 - evaluated by GI in the ED - will give Reglan IV around the clock, one dose of Emend, PRN Zofran and compazine - continue PPI and H2 lauren - clear liquid diet, advance as tolerated - IVF HX PALPITATIONS - continue digoxin ANXIETY/DEPRESSION - continue escitalopram HYPOTHYROIDISM - continue levothyroxine DVT PROPHYLAXIS - SQ Lovenox DISPO - The patient will be placed as observation status for now until further work up is complete. ADDENDUM: This is a 57 year old female with a PMH of severe gastroparesis, hx. of PACs and palpitations, anxiety/depression, hypothyroidism - presents with worsening nausea/vomiting that began suddenly early this morning. She has had multiple hospital admissions with the nausea/vomiting, likely due to gastroparesis. She gets monthly Emend injections, but could not make it to her scheduled appointment next week due to worsening n/v. She is in moderate distress normoactive bowel sounds,non/tender, soft abdomen Plan: Emend 150mg x1 continue Zofran PRN Ativan PRN IVFs VTE Prophylaxis VTE Risk Assessment Done? Y/N: Yes Risk Level: Moderate
[2017-11-09] MEDS: METOCLOPRAMIDE HCL INJ 5 MG/ML 2 ML VIAL IV SCH ×3 (12:56→23:46)
[2017-11-09] MEDS ORDERED: IV FLUIDS COMPLETED PRN (14:00)
[2017-11-09 14:57] VITALS: BP 92/56; PULSE 62; TEMP 36.6; O2SAT 97
[2017-11-09] MEDS ORDERED: ALUMINUM/MAGNESIUM SUSP 30 ML UDC PO PRN (16:00)
[2017-11-09] MEDS ORDERED: ALUMINUM/MAGNESIUM SUSP 30 ML UDC PO STA (16:00)
[2017-11-09] MEDS ORDERED: DIGOXIN 0.125 MG TAB PO SCH (16:00)
[2017-11-09] MEDS: FAMOTIDINE 20 MG TAB PO SCH (20:45)
[2017-11-09] MEDS: PANTOprazole SOD 40 MG TAB PO SCH (20:46)
[2017-11-09] MEDS ORDERED: ESCITALOPRAM OXALATE 20 MG TAB PO SCH (21:00)
[2017-11-09] MEDS ORDERED: ENOXAPARIN 40 MG/0.4 ML SYR SQ SCH (21:00)
[2017-11-09] MEDS ORDERED: PRENATAL VITAMIN TAB PO SCH (21:00)
[2017-11-09 23:36] VITALS: BP 96/61; PULSE 68; TEMP 36.7; O2SAT 97
[2017-11-10] VITALS: O2SAT 97
[2017-11-10] MEDS: METOCLOPRAMIDE HCL INJ 5 MG/ML 2 ML VIAL IV SCH ×2 (05:55→12:51)
[2017-11-10 06:01] LABS: HEMATOCRIT 28.2 % (37-47); HEMOGLOBIN 9.1 g/dL (12.0-16.0); MEAN CELL VOLUME 80.1 fL (80-100); MEAN CORPUSCULAR HEMOGLOBIN 25.9 pg (25-34); MEAN CORPUSCULAR HGB CONC 32.3 g/dl (32-36); MEAN PLATELET VOLUME 9.1 fL (7.4-10.4); PLATELET COUNT 183 K/uL (130-400); RED CELL DISTRIBUTION WIDTH CV 17.6 % (11.5-14.5); RED CELL DISTRIBUTION WIDTH SD 50.8 fL (36.4-46.3)
[2017-11-10] MEDS ORDERED: LEVOTHYROXINE 75 MCG TAB PO SCH (06:30)
[2017-11-10 06:46] LABS: CALCIUM 8.1 mg/dl (8.5-10.1); CREATININE 0.82 mg/dl (0.60-1.20)
[2017-11-10 06:50] LABS: PHOSPHORUS 3.1 mg/dl (2.5-4.9)
[2017-11-10 07:12] VITALS: BP 103/64; PULSE 54; TEMP 36.8; O2SAT 98
[2017-11-10] MEDS: PANTOprazole SOD 40 MG TAB PO SCH (08:25)
[2017-11-10] MEDS: FAMOTIDINE 20 MG TAB PO SCH (08:25)
--- NOTE | 2017-11-10 08:44 | Gastroenterology Progress Note ---
Progress Note Date of Service: Nov 10, 2017 Subjective Pt evaluation today including: conversation w/ patient, conversation w/ family , physical exam Feels well, no nausea, vomiting, no abdominal pain. Medications Current Inpatient Medications Medications (Trade) Dose Ordered Sig/Marisol Route Start Time Stop Time Status Last Admin Dose Admin Promethazine HCl 25 mg/Sodium Chloride 51 ml @ 204 mls/hr Q6H PRN IV 11/09/17 08:45 12/09/17 08:44 11/09/17 09:02 204 MLS/HR Lorazepam (Ativan Inj) 1 mg Q6 PRN IV 11/09/17 09:00 12/09/17 08:59 Enoxaparin Sodium (Lovenox Inj) 40 mg HS SQ 11/09/17 21:00 12/09/17 20:59 11/09/17 20:46 40 MG Acetaminophen (Tylenol Tab) 650 mg Q4H PRN PO 11/09/17 09:15 12/09/17 09:14 11/09/17 19:56 650 MG Ondansetron HCl (Zofran Inj) 4 mg Q6H PRN IV 11/09/17 09:15 12/09/17 09:14 Sodium Chloride 1,000 ml @ 80 mls/hr [id number] IV 11/09/17 11:15 12/09/17 11:14 11/09/17 23:46 80 MLS/HR Metoclopramide HCl (Reglan Inj) 10 mg Q6 IV 11/09/17 12:00 12/09/17 11:59 11/10/17 05:55 10 MG Digoxin (Lanoxin Tab) 0.125 mg DAILY@1600 PO 11/09/17 16:00 12/09/17 15:59 11/09/17 17:49 0.125 MG Escitalopram Oxalate (Lexapro Tab) 20 mg HS PO 11/09/17 21:00 12/09/17 20:59 11/09/17 20:44 20 MG Famotidine (Pepcid Tab) 40 mg BID PO 11/09/17 20:00 12/09/17 20:59 11/09/17 20:45 40 MG Levothyroxine Sodium (Synthroid Tab) 75 mcg DAILYBB PO 11/10/17 06:30 12/10/17 06:29 11/10/17 05:56 75 MCG Pantoprazole Sodium (Protonix Tab) 40 mg BID PO 11/09/17 20:00 12/09/17 20:59 11/09/17 20:46 40 MG Prenat Multivit/ [place]/Iron/Folic Ac ( Vitamin Tab) 1 tab QPM PO 11/09/17 21:00 12/09/17 20:59 11/09/17 20:44 1 TAB Lorazepam 1 mg/ Syringe 1 ml @ 1 mls/min Q6H PRN IV 11/09/17 11:15 12/09/17 11:14 Miscellaneous (Iv Fluids Completed) 1 ea PRN PRN N/A 11/09/17 14:00 11/09/18 13:59 Al Hydroxide/Mg Hydroxide (Maalox Susp) 30 ml Q6H PRN PO 11/09/17 16:00 12/09/17 15:59 Objective Vital Signs Date Time Temp Pulse Resp B/P (MAP) Pulse Ox O2 Delivery O2 Flow Rate FiO2 11/10/17 07:12 36.8 54 18 103/64 (77) 98 Room Air 11/10/17 00:00 97 Room Air 11/09/17 23:36 36.7 68 18 96/61 (73) 97 Room Air 11/09/17 17:49 62 11/09/17 16:00 Room Air 11/09/17 14:57 36.6 62 18 92/56 (68) 97 11/09/17 10:45 36.7 67 16 122/81 97 Room Air 11/09/17 09:04 74 16 108/79 98 Room Air 11/09/17 08:48 96 Room Air 11/09/17 08:48 96 Room Air Physical Exam General Appearance: WD/WN, no apparent distress Eyes: normal inspection ENT: normal ENT inspection Neck: supple Respiratory/Chest: chest non-tender Cardiovascular: regular rate, rhythm Abdomen: normal bowel sounds, non tender Extremities: normal range of motion, non-tender 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 nml as tested Laboratory Results Last 24 Hours Test 11/10/17 05:39 White Blood Count 7.90 K/uL Red Blood Count 3.52 M/uL Hemoglobin 9.1 g/dL Hematocrit 28.2 % Mean Corpuscular Volume 80.1 fL Mean Corpuscular Hemoglobin 25.9 pg Mean Corpuscular Hemoglobin Concent 32.3 g/dl RDW Standard Deviation 50.8 fL RDW Coefficient of Variation 17.6 % Platelet Count 183 K/uL Mean Platelet Volume 9.1 fL Sodium Level 143 mmol/L Potassium Level 4.0 mmol/L Chloride Level 112 mmol/L Carbon Dioxide Level 25 mmol/L Anion Gap 6.0 mmol/L Blood Urea Nitrogen 6 mg/dl Creatinine 0.82 mg/dl Est Creatinine Clear Calc Drug Dose 66.5 ml/min Estimated GFR () 90.8 Estimated GFR (Non- 78.3 BUN/Creatinine Ratio 7.4 Random Glucose 86 mg/dl Calcium Level 8.1 mg/dl Phosphorus Level 3.1 mg/dl Magnesium Level 2.0 mg/dl Thyroid Stimulating Hormone (TSH) 0.850 uIu/ml Assessment and Plan 57 yo with documented gastroparesis with multiple prior admissions for flares -Doing well now -Received amend yesterday -No complaints this am -Continue to advance diet to a lowfat gastroparesis diet, hold narcotics, -Unsure if had gastroenteritis vs gastroparetic flare. -No changes in outpatient regimen. -Ok to D/C when tolerating diet -Follow up with Dr. Ridley as outpatient -will sign off, call with questions.
[2017-11-10] MEDS: SODIUM CHLORIDE 0.9% 1000ML 1,000 ML IV SCH (11:35)
[2017-11-10 13:47] VITALS: BP 103/64; PULSE 54; TEMP 36.8; O2SAT 98
--- NOTE | 2017-11-10 13:55 | Progress Note ---
Subjective Date of Service: Nov 10, 2017. Subjective Pt evaluation today including: conversation w/ patient, conversation w/ family , physical exam, lab review, review of studies, review of inpatient medication list Saw/examined the patient in room 403 No problems/issues to note No nausea she is eager to go home Review of Systems Constitutional: No fever, No chills Abdomen: No pain, No nausea (resolved), No vomiting, No diarrhea Medications Current Inpatient Medications Medications (Trade) Dose Ordered Sig/Marisol Route Start Time Stop Time Status Last Admin Dose Admin Promethazine HCl 25 mg/Sodium Chloride 51 ml @ 204 mls/hr Q6H PRN IV 11/09/17 08:45 12/09/17 08:44 11/09/17 09:02 204 MLS/HR Lorazepam (Ativan Inj) 1 mg Q6 PRN IV 11/09/17 09:00 12/09/17 08:59 Enoxaparin Sodium (Lovenox Inj) 40 mg HS SQ 11/09/17 21:00 12/09/17 20:59 11/09/17 20:46 40 MG Acetaminophen (Tylenol Tab) 650 mg Q4H PRN PO 11/09/17 09:15 12/09/17 09:14 11/09/17 19:56 650 MG Ondansetron HCl (Zofran Inj) 4 mg Q6H PRN IV 11/09/17 09:15 12/09/17 09:14 Sodium Chloride 1,000 ml @ 80 mls/hr [id number] IV 11/09/17 11:15 12/09/17 11:14 11/10/17 11:35 80 MLS/HR Metoclopramide HCl (Reglan Inj) 10 mg Q6 IV 11/09/17 12:00 12/09/17 11:59 11/10/17 12:51 10 MG Digoxin (Lanoxin Tab) 0.125 mg DAILY@1600 PO 11/09/17 16:00 12/09/17 15:59 11/09/17 17:49 0.125 MG Escitalopram Oxalate (Lexapro Tab) 20 mg HS PO 11/09/17 21:00 12/09/17 20:59 11/09/17 20:44 20 MG Famotidine (Pepcid Tab) 40 mg BID PO 11/09/17 20:00 12/09/17 20:59 11/10/17 08:25 40 MG Levothyroxine Sodium (Synthroid Tab) 75 mcg DAILYBB PO 11/10/17 06:30 12/10/17 06:29 11/10/17 05:56 75 MCG Pantoprazole Sodium (Protonix Tab) 40 mg BID PO 11/09/17 20:00 12/09/17 20:59 11/10/17 08:25 40 MG Prenat Multivit/ [facility]/Iron/Folic Ac ( Vitamin Tab) 1 tab QPM PO 11/09/17 21:00 12/09/17 20:59 11/09/17 20:44 1 TAB Lorazepam 1 mg/ Syringe 1 ml @ 1 mls/min Q6H PRN IV 11/09/17 11:15 12/09/17 11:14 Miscellaneous (Iv Fluids Completed) 1 ea PRN PRN N/A 11/09/17 14:00 11/09/18 13:59 Al Hydroxide/Mg Hydroxide (Maalox Susp) 30 ml Q6H PRN PO 11/09/17 16:00 12/09/17 15:59 Objective Vital Signs Date Time Temp Pulse Resp B/P (MAP) Pulse Ox O2 Delivery O2 Flow Rate FiO2 11/10/17 12:33 Room Air 11/10/17 07:12 36.8 54 18 103/64 (77) 98 Room Air 11/10/17 00:00 97 Room Air 11/09/17 23:36 36.7 68 18 96/61 (73) 97 Room Air 11/09/17 17:49 62 11/09/17 16:00 Room Air 11/09/17 14:57 36.6 62 18 92/56 (68) 97 Physical Exam General Appearance: no apparent distress Respiratory/Chest: no respiratory distress, no accessory muscle use, + pertinent finding (+port - R chest wall) Abdomen: normal bowel sounds, non tender, soft Neurologic/Psychiatric: no motor/sensory deficits, alert, normal mood/affect Laboratory Results Last 24 Hours Test 11/10/17 05:39 White Blood Count 7.90 K/uL Red Blood Count 3.52 M/uL Hemoglobin 9.1 g/dL Hematocrit 28.2 % Mean Corpuscular Volume 80.1 fL Mean Corpuscular Hemoglobin 25.9 pg Mean Corpuscular Hemoglobin Concent 32.3 g/dl RDW Standard Deviation 50.8 fL RDW Coefficient of Variation 17.6 % Platelet Count 183 K/uL Mean Platelet Volume 9.1 fL Sodium Level 143 mmol/L Potassium Level 4.0 mmol/L Chloride Level 112 mmol/L Carbon Dioxide Level 25 mmol/L Anion Gap 6.0 mmol/L Blood Urea Nitrogen 6 mg/dl Creatinine 0.82 mg/dl Est Creatinine Clear Calc Drug Dose 66.5 ml/min Estimated GFR () 90.8 Estimated GFR (Non- 78.3 BUN/Creatinine Ratio 7.4 Random Glucose 86 mg/dl Calcium Level 8.1 mg/dl Phosphorus Level 3.1 mg/dl Magnesium Level 2.0 mg/dl Thyroid Stimulating Hormone (TSH) 0.850 uIu/ml Assessment and Plan 11/10 patient received Emend x1 no more nausea/vomiting present hx. of gastroparesis would followup with GI as outpatient, may need earlier frequency of Emend INTRACTABLE NAUSEA, VOMITING HX GASTROPARESIS - admit to med/surg - patient presenting with intractable nausea, vomiting, and dry heaves; well known to our service with frequent admissions for similar symptoms, most recently admitted 10/28 - 10/30 - evaluated by GI in the ED - will give Reglan IV around the clock, one dose of Emend, PRN Zofran and compazine - continue PPI and H2 lauren - clear liquid diet, advance as tolerated - IVF HX PALPITATIONS - continue digoxin ANXIETY/DEPRESSION - continue escitalopram HYPOTHYROIDISM - continue levothyroxine DVT PROPHYLAXIS - SQ Lovenox DISPO - The patient will be placed as observation status for now until further work up is complete. ADDENDUM: This is a 57 year old female with a PMH of severe gastroparesis, hx. of PACs and palpitations, anxiety/depression, hypothyroidism - presents with worsening nausea/vomiting that began suddenly early this morning. She has had multiple hospital admissions with the nausea/vomiting, likely due to gastroparesis. She gets monthly Emend injections, but could not make it to her scheduled appointment next week due to worsening n/v. She is in moderate distress normoactive bowel sounds,non/tender, soft abdomen Plan: Emend 150mg x1 continue Zofran PRN Ativan PRN IVFs
--- NOTE | 2017-11-10 13:58 | Discharge Instructions ---
Discharge Instructions Date of Service Nov 10, 2017. Admission Reason for Admission: Nausea & Vomiting Discharge Discharge Diagnosis / Problem: Gastroparesis Discharge Goals Goal(s): Decrease discomfort, Improve function, Diagnostic testing, Therapeutic intervention Activity Recommendations Activity Limitations: resume your previous activity . Instructions / Follow-Up Instructions / Follow-Up Please follow-up with Dr. Coppola on November 20 at 12:45PM Please follow-up with GI, Dr. Ridley as an outpatient Current Hospital Diet Patient's current hospital diet: Full Liquid Diet Discharge Diet Recommended Diet: Low Fat Diet Pending Studies Studies pending at discharge: no Medical Emergencies . Who to Call and When: Medical Emergencies: If at any time you feel your situation is an emergency, please call 911 immediately. . Non-Emergent Contact Non-Emergency issues call your: Primary Care Provider . . "Provider Documentation" section prepared by Adonis Cruz. . VTE Core Measure Inpt VTE Proph given/why not?: Enoxaparin (Lovenox)SQ
--- NOTE | 2017-11-10 14:00 | Discharge Summary ---
Discharge Summary Date of Service Nov 10, 2017. Discharge Summary Admission Date: Nov 09, 2017 at 10:37 Discharge Date: Nov 10, 2017 Discharge Disposition: Home Principal Diagnosis: Severe Gastroparesis Medication Reconciliation Continued Medications: Albuterol Sulf (Proventil 0.083% 2.5MG/3ML) 2.5 Mg/3 Ml Nebu 3 ML INH Q4H PRN for Wheezing Aluminum Hydroxide-Mag Trisil (Gaviscon) 1 Chw Chw 2 TABS PO TID PRN for Dyspepsia Clonazepam (Klonopin) 0.5 Mg Tab 0.5 MG PO TID PRN for Anxiety/Agitation Cyanocobalamin (Vitamin B-12 1000 Mcg) 1,000 Mcg Tab 1000 MCG IM UD for 30 Days, TAB 2 Refills Digoxin (Digoxin) 0.125 Mg Tab 0.125 MG PO QPM Ergocalciferol (Vitamin D 85891 Unit) 50,000 Unit Cap 1 CAP PO WK for 28 Days, #4 CAP 5 Refills Escitalopram Oxalate (Lexapro) 20 Mg Tab 20 MG PO HS, TAB Famotidine (Pepcid) 40 Mg Tab 40 MG PO BID, TAB Fosaprepitant Dimeglumine (Emend) 150 Mg Rosalia 150 MG IV MONTHLY Levothyroxine Sodium (Levothyroxine Sodium) 75 Mcg Tab 75 MCG PO QAM Metoclopramide (Reglan) 10 Mg Tab 10 MG PO TIDM, TAB Ondansetron Hcl (Zofran) 4 Mg Tab 4 MG PO Q6H PRN for Nausea, TAB Pantoprazole (Protonix) 40 Mg Tab 40 MG PO BID, #30 TAB Multivit-Min W/Fe-Fa ( And Iron) 1 Tab Tab 1 TAB PO QPM Promethazine (Phenergan Suppository) 25 Mg Supp 25 MG AR Q6H PRN for Nausea, #10 SUPP Admission Information HPI (per Admitting provider): 57 year old female who presents to the ED with persistent nausea and vomiting. Patient is well known to our service. She was recently admitted 10/28 - 10/30 for similar symptoms. Patient reports she woke up at around 0200am out of sleep with severe nausea and persistent dry heaves. She denies having any emesis. She had epigastric pain that radiated into her back. She reports she had been feeling well since her discharge. Of note, she did miss her hospital follow up appointment. When inquired about it, patient states, "I just didn't want to go. " She has chronic diarrhea which is unchanged. No BRBPR or dark tarry stools. She denies chest pain, shortness of breath, lightheadedness, dizziness, diaphoresis. No fevers or chills. She denies any urinary symptoms. In the ED, patient's vitals are stable and labs are unremarkable. GI evaluated the patient in the ED and recommended observation. Physical Exam (per Admitting): General Appearance: WD/WN, no apparent distress Head: normocephalic, atraumatic Eyes: normal inspection, EOMI ENT: hearing grossly normal, + pertinent finding (mucous membranes moist) Neck: supple, no JVD, trachea midline Respiratory/Chest: lungs clear, normal breath sounds, no respiratory distress Cardiovascular: regular rate, rhythm, no edema, normal peripheral pulses Abdomen/GI: normal bowel sounds, non tender, soft, no organomegaly Extremities/Musculoskelatal: normal inspection, no calf tenderness, normal capillary refill Neurologic/Psych: no motor/sensory deficits, alert, normal mood/affect, oriented x 3 Skin: normal color, warm/dry Hospital Course 11/10 patient received Emend x1 no more nausea/vomiting present hx. of gastroparesis would followup with GI as outpatient, may need earlier frequency of Emend INTRACTABLE NAUSEA, VOMITING HX GASTROPARESIS - admit to med/surg - patient presenting with intractable nausea, vomiting, and dry heaves; well known to our service with frequent admissions for similar symptoms, most recently admitted 10/28 - 10/30 - evaluated by GI in the ED - will give Reglan IV around the clock, one dose of Emend, PRN Zofran and compazine - continue PPI and H2 lauren - clear liquid diet, advance as tolerated - IVF HX PALPITATIONS - continue digoxin ANXIETY/DEPRESSION - continue escitalopram HYPOTHYROIDISM - continue levothyroxine DVT PROPHYLAXIS - SQ Lovenox DISPO - The patient will be placed as observation status for now until further work up is complete. ADDENDUM: This is a 57 year old female with a PMH of severe gastroparesis, hx. of PACs and palpitations, anxiety/depression, hypothyroidism - presents with worsening nausea/vomiting that began suddenly early this morning. She has had multiple hospital admissions with the nausea/vomiting, likely due to gastroparesis. She gets monthly Emend injections, but could not make it to her scheduled appointment next week due to worsening n/v. She is in moderate distress normoactive bowel sounds,non/tender, soft abdomen Plan: Emend 150mg x1 continue Zofran PRN Ativan PRN IVFs Total time spent on discharge = 15 minutes This includes examination of the patient, discharge planning, medication reconciliation, and communication with other providers. Discharge Instructions Please follow-up with Dr. Coppola on November 20 at 12:45PM Please follow-up with GI, Dr. Ridley as an outpatient
[2017-11-10] MEDS ORDERED: NURSING VERBAL MED ORDER ONE (14:15)
== END 2017-11-10 15:22 | disposition home or self-care (01) ==
LOC: C.EDB 06:15 → ENRESERV 09:29 → C.4E 10:37 → UNDOADMOB 10:37
PROVIDERS: ADMIT Family Medicine; ATTEND Family Medicine
DX: K31.84 Gastroparesis (principal); K91.1 Postgastric surgery syndromes; E03.9 Hypothyroidism, unspecified; J44.9 Chronic obstructive pulmonary disease, unspecified; E78.5 Hyperlipidemia, unspecified; F17.200 Nicotine dependence, unspecified, uncomplicated; I34.0 Nonrheumatic mitral (valve) insufficiency; G62.9 Polyneuropathy, unspecified; K21.9 Gastro-esophageal reflux disease without esophagitis; Z88.1 Allergy status to other antibiotic agents; Z98.84 Bariatric surgery status; Z90.721 Acquired absence of ovaries, unilateral; Z83.3 Family history of diabetes mellitus; Z82.49 Family history of ischemic heart disease and other diseases of the circulatory system; Z84.1 Family history of disorders of kidney and ureter

== ENCOUNTER 2019-02-27 19:19 | Inpatient (IN) ==
[2019-02-27] MEDS ORDERED: METOCLOPRAMIDE HCL INJ 5 MG/ML 2 ML VIAL IV STA (19:41)
[2019-02-27] MEDS ORDERED: DiphenhydrAMINE HCL 50 MG/ML VIAL IV STA (19:41)
[2019-02-27] MEDS ORDERED: FAMOTIDINE 20MG/5ML IV PUSH IV STA (19:41)
[2019-02-27] MEDS ORDERED: SODIUM CHLORIDE 0.9% 1000ML 1,000 ML IV ONE (19:41)
[2019-02-27] MEDS ORDERED: ONDANSETRON INJ 2 MG/ML 2 ML VIAL IV STA (19:41)
[2019-02-27] MEDS ORDERED: FOSAPREPITANT DIMEGLUMINE 150 MG in SODIUM CHLORIDE 0.9% 145 ML IV ONE (19:44)
[2019-02-27 20:09] LABS: Basophils # (auto) 0.02 K/uL (0-0.2); Basophils % (auto) 0.3 %; Eosinophils # (auto) 0.26 K/uL (0-0.5); Eosinophils % (auto) 4.5 %; Hematocrit (blood only) 31.5 % (37-47); Hemoglobin 10.2 g/dL (12.0-16.0); Immature Granulocytes # (auto) 0.01 K/uL (0.00-0.02); Immature Granulocytes % (auto) 0.2 %; Lymphocytes # (auto) 2.27 K/uL (1.2-3.4); Lymphocytes % (auto) 39.4 %; Mean Corpuscular Hgb Conc 32.4 g/dL (32-36); Mean Corpuscular Volume 75.7 fL (80-100); Mean Platelet Volume 8.8 fL (7.4-10.4); Monocytes % (auto) 8.7 %; Neutrophils % (auto) 46.9 %; Platelet Count 235 K/uL (130-400); RDW Coefficient of Variation 16.8 % (11.5-14.5); Red Blood Count 4.16 M/uL (4.2-5.4); White Blood Count 5.76 K/uL (4.8-10.8)
[2019-02-27 20:25] LABS: Alanine Aminotransferase 11 U/L (12-78); Albumin Level 3.2 gm/dl (3.4-5.0); Aspartate Aminotransferase 14 U/L (15-37); BUN Creatinine Ratio 12.6 (10-20); Blood Urea Nitrogen 12 mg/dl (7-18); Calcium 8.5 mg/dl (8.5-10.1); Carbon Dioxide 22 mmol/L (21-32); Chloride 114 mmol/L (98-107); Creatinine Clr Calc Pharmacy 55.5 ml/min; Est GFR (African American) 73.6; Est GFR (Non-African American) 63.5; Glucose 81 mg/dl (70-99); Magnesium 1.9 mg/dl (1.8-2.4); Potassium 3.5 mmol/L (3.5-5.1); Sodium 143 mmol/L (136-145)
[2019-02-27 20:30] LABS: Alkaline Phosphatase 74 U/L (45-117); Bilirubin,Total 0.3 mg/dl (0.2-1); Globulin 3.2 gm/dl (2.5-4.0); Total Protein 6.4 gm/dl (6.4-8.2); Troponin I < 0.015 ng/ml (0-0.045)
--- NOTE | 2019-02-27 20:35 | Emergency Department Note ---
Entered by Gamal Rowell acting as a scribe for Bayron Mcmillan MD History of Present Illness General Chief complaint: GI Assessment Stated complaint: GASTROPARESIS Time Seen by Provider: 02/27/19 19:35 Source: patient Limitations: no limitations History of Present Illness Onset (ago): day(s) 3 Location: abdomen Radiation: back Severity: similar to prior episodes Pain Consistency: + constant Maximum Pain Intensity: 6 Current Pain Intensity: 6 Relieved By: + medication (Emend) Exacerbated By: + other (not eating, drinking) Associated symptoms: + nausea/vomiting (nausea, no vomit) and + other (diarrhea, dry heaves) The patient is a 58 year old female who presents to the Emergency Room with complaints of constant abdominal pain starting 3 days ago. The patient states the abdominal pain radiates to her back. She states she has nausea. She notes she is unable to vomit, eat, and drink. She notes she has been having dry heaves. She states the pain is 6/10. The patient notes she has been able to take her medicines but notes she feels sick when she drinks water to put down the medicine. She notes her pain is exacerbated from not eating. She notes she has diarrhea. She notes she has previously gotten Emend medication that helps her. 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 The patient was seen in the ED 2 days ago by Akanksha Vargas for a gastroparesis flare-up. Imaging and labs were unremarkable. Home Medications Home Medications Medication Instructions Recorded Confirmed Type levothyroxine 75 mcg PO DAILY #0 10/31/13 02/27/19 History clonazepam 0.5 mg PO TID PRN #0 06/22/14 02/27/19 History famotidine [Pepcid] 40 mg PO BID #0 tab 04/15/17 02/27/19 History escitalopram oxalate [Lexapro] 20 mg PO HS #0 tab 08/08/17 02/27/19 History metoclopramide HCl 10 mg PO TIDM #0 tab 08/08/17 02/27/19 History lansoprazole 30 mg PO DAILY 05/26/18 02/27/19 History multivitamin 1 tab PO DAILY 09/09/18 02/27/19 History ondansetron HCl [Zofran] 8 mg PO Q6H PRN 09/09/18 02/27/19 History digoxin 125 mcg PO HS 02/27/19 02/27/19 History Allergies Allergy/AdvReac Type Severity Reaction Status Date / Time adhesive Allergy Mild SKIN Verified 02/27/19 19:56 IRRITATION amoxicillin AdvReac Intermediate yeast Verified 02/27/19 19:56 infection NSAIDS (Non-Steroidal AdvReac Mild indegestion Verified 02/27/19 19:56 Anti-Inflamma rofecoxib AdvReac Mild indigestion Verified 02/27/19 19:56 scopolamine AdvReac Mild rash from Verified 02/27/19 19:56 patch Past Med/Surg History Medical History HTN (hypertension) (Chronic) Gastroparesis (Chronic) H/O irritable bowel syndrome (Chronic) Pernicious anemia (Chronic) Diverticulosis (Chronic) GERD (gastroesophageal reflux disease) (Chronic) Anxiety (Chronic) Depression (Chronic) COPD (chronic obstructive pulmonary disease) (Chronic) Frequent PVCs (Chronic) Asthma (Chronic) Premature atrial contractions (Chronic) Tobacco abuse (Chronic) Anemia, iron deficiency (Chronic) MRSA bacteremia (Resolved) Neuropathy (Chronic) Hypothyroidism (Chronic) Mitral regurgitation (Chronic) "moderate per echo 09/21/15" Pemphigus vulgaris Surgical History History of pyloroplasty (Resolved) laparoscopic pyloroplasty By Dr Zapata, [facility] History of laparoscopic partial gastrectomy (Resolved) 03/2012 - Dr Dove at [facility] Hx of tonsillectomy (Resolved) History of total hysterectomy (Resolved) History of bladder surgery Hx of cholecystectomy S/P hysterectomy S/P laparoscopic sleeve gastrectomy S/P partial gastrectomy S/P repair of paraesophageal hernia "resulted in volvulus, required abdominal exploration" S/P tonsillectomy and adenoidectomy Family History Mother DM type 2 (diabetes mellitus, type 2) Coronary heart disease Social History Preferred Language: Citizen Of [place] Communication Ability: Effective Beliefs That Will Affect Care: None Current Living Situation: Family Feels Safe at Home: Yes Smoking Status: Never smoker Tobacco Type: cigarettes Cigarettes Per Day: 1/2 pack Second Hand Exposure: Yes Hx Alcohol Use: No Hx Substance Use: No Review of Systems See HPI for pertinent positives & negatives. and A total of 10 systems reviewed and were otherwise negative Physical Exam Vital Signs Vital Signs - 24 hr 02/27/19 19:31 02/27/19 20:22 02/27/19 20:26 Temperature 36.9 C Temperature Source Oral Sepsis Recent Fever Within 48 Hours No Sepsis Action Taken by Nursing No Action Required Pulse Rate 60 57 L Pulse Rate from SpO2 Sensor 57 L Respiratory Rate 18 16 Respiratory Effort / Characteristics Non-Labored Respiratory Depth Normal Blood Pressure 117/82 138/84 Blood Pressure Mean 93 102 Pulse Oximetry 98 100 100 Oxygen Delivery Method Room Air Room Air 02/27/19 20:30 02/27/19 20:40 02/27/19 20:53 Temperature Temperature Source Sepsis Recent Fever Within 48 Hours Sepsis Action Taken by Nursing Pulse Rate 57 L 56 L 57 L Pulse Rate from SpO2 Sensor 56 L 56 L 56 L Respiratory Rate 24 19 14 Respiratory Effort / Characteristics Respiratory Depth Blood Pressure Blood Pressure Mean Pulse Oximetry 100 100 Oxygen Delivery Method 02/27/19 21:00 02/27/19 21:10 02/27/19 21:20 Temperature Temperature Source Sepsis Recent Fever Within 48 Hours Sepsis Action Taken by Nursing Pulse Rate 54 L 51 L 52 L Pulse Rate from SpO2 Sensor 52 L 51 L 52 L Respiratory Rate 17 14 16 Respiratory Effort / Characteristics Respiratory Depth Blood Pressure 124/83 Blood Pressure Mean 96 Pulse Oximetry 99 100 100 Oxygen Delivery Method 02/27/19 21:30 02/27/19 21:40 02/27/19 21:50 Temperature Temperature Source Sepsis Recent Fever Within 48 Hours Sepsis Action Taken by Nursing Pulse Rate 55 L 50 L 60 Pulse Rate from SpO2 Sensor 52 L 52 L 60 Respiratory Rate 15 13 14 Respiratory Effort / Characteristics Respiratory Depth Blood Pressure Blood Pressure Mean Pulse Oximetry 98 98 99 Oxygen Delivery Method 02/27/19 22:00 02/27/19 22:01 Temperature Temperature Source Sepsis Recent Fever Within 48 Hours Sepsis Action Taken by Nursing Pulse Rate 66 64 Pulse Rate from SpO2 Sensor 62 63 Respiratory Rate 18 16 Respiratory Effort / Characteristics Respiratory Depth Blood Pressure 140/102 H Blood Pressure Mean 114 Pulse Oximetry 99 99 Oxygen Delivery Method GENERAL: Patient is in no acute distress. Dry heaving noted. HEENT: No acute trauma, normocephalic atraumatic, mucous membranes moist, no nasal congestion, no scleral icterus. NECK: No stridor, no adenopathy, no meningismus, trachea is midline. LUNGS: Clear to auscultation bilaterally, no wheeze, no rhonchi, breath sounds equal. HEART: Without murmurs gallops or rubs, regular rate and rhythm. ABDOMEN: Soft, bowel sounds positive, no hernias, no peritonitis. Moderately tender in epigastric region. EXTREMITIES: No cyanosis or edema, full range of motion of all the joints without pain or difficulty, no signs for acute trauma. NEUROLOGIC: Oriented x 3, no acute motor or sensory deficits, no focal weakness. SKIN: No rash, no jaundice, no diaphoresis. Course 1936: The patient was evaluated in room C10, and a complete history and physical examination were performed. 1941: I discussed the patient's case with Dr. Bergman - Gastroenterology. He states 150 mg of Emend will be fine. 2134: I [facility] the [facility] the patient for further management Administered Medications Al Hydrox/Mg Hydrox/Simethicone (Maalox) 30 ml PO Q6H PRN PRN Reason: Heartburn Stop: 03/29/19 23:41 Last Admin: 02/28/19 00:02 Dose: 30 ml Documented by: [id number] Digoxin (Lanoxin) 0.125 mg PO HS RUSSELL Stop: 03/30/19 20:59 Last Admin: 02/28/19 00:43 Dose: 0.125 mg Documented by: [id number] Sodium Chloride (Nss 1000ml) 1,000 mls @ 65 mls/hr IV .[id number] RUSSELL Stop: 03/29/19 23:07 Last Admin: 02/27/19 23:33 Dose: 65 mls/hr Documented by: [id number] Ceftriaxone Sodium 1,000 mg/ (Dextrose) 50 mls @ 100 mls/hr IV Q24H RUSSELL Stop: 03/09/19 23:29 Last Infusion: 02/28/19 00:10 Dose: 0 mls/hr Documented by: [id number] Admin: 02/27/19 23:33 Dose: 100 mls/hr Documented by: [id number] Metronidazole (Flagyl) 500 mg in 100 mls @ 100 mls/hr IV Q8H RUSSELL Stop: 03/10/19 00:00 Last Admin: 02/28/19 00:04 Dose: 100 mls/hr Documented by: [id number] Metoclopramide HCl (Reglan) 10 mg IV Q6H PRN PRN Reason: Nausea Stop: 03/29/19 23:07 Last Admin: 02/27/19 23:32 Dose: 10 mg Documented by: [id number] Discontinued Medications Diphenhydramine HCl (Benadryl) 25 mg IV NOW STA Stop: 02/27/19 19:42 Last Admin: 02/27/19 20:10 Dose: 25 mg Documented by: [id number] Famotidine (Pepcid 20mg Iv Push) 20 mg IV ONE STA Stop: 02/27/19 19:42 Last Admin: 02/27/19 20:16 Dose: 20 mg Documented by: [id number] Hydromorphone HCl (Dilaudid) 0.5 mg IV NOW STA Stop: 02/27/19 21:51 Last Admin: 02/27/19 22:05 Dose: 0.5 mg Documented by: [id number] Fosaprepitant 150 mg/ Sodium (Chloride) 145 mls @ 300 mls/hr IV ONE ONE Stop: 02/27/19 20:12 Last Infusion: 02/27/19 21:12 Dose: 0 mls/hr Documented by: [id number] Admin: 02/27/19 20:18 Dose: 300 mls/hr Documented by: [id number] Sodium Chloride (Nss 1000ml) 1,000 mls @ 999 mls/hr IV .Q1H1M ONE Stop: 02/27/19 20:41 Last Infusion: 02/27/19 21:12 Dose: 0 mls/hr Documented by: [id number] Admin: 02/27/19 20:10 Dose: 999 mls/hr Documented by: [id number] Promethazine HCl 6.25 mg/ (Sodium Chloride) 50.25 mls @ 201 mls/hr IV NOW STA Stop: 02/27/19 21:51 Last Infusion: 02/27/19 22:08 Dose: 0 mls/hr Documented by: [id number] Admin: 02/27/19 21:48 Dose: 201 mls/hr Documented by: [id number] Metoclopramide HCl (Reglan) 10 mg IV NOW STA Stop: 02/27/19 19:42 Last Admin: 02/27/19 20:13 Dose: 10 mg Documented by: [id number] Morphine Sulfate (Morphine Sulfate) 4 mg IV NOW STA Stop: 02/27/19 21:06 Last Admin: 02/27/19 21:16 Dose: 4 mg Documented by: [id number] Ondansetron HCl (Zofran) 4 mg IV NOW STA Stop: 02/27/19 19:42 Last Admin: 02/27/19 20:13 Dose: 4 mg Documented by: [id number] Promethazine HCl (Phenergan) Confirm Administered Dose 6.25 mg IV .STK-MED ONE Stop: 02/27/19 21:45 Last Admin: 02/27/19 21:48 Dose: Not Given Documented by: [id number] Medical Decision Making Differential Diagnosis Differential Diagnosis: Gastroparesis flare-up, bowel obstruction, gastritis, [place], angina, dehydration, e lectrolyte imbalance, anemia, and pancreatitis. Medical Records Attestation: I reviewed the patient's medical records. Home Medications Current Medication List: was personally reviewed by me Laboratory Data Attestation: I reviewed the patient's lab results. Result diagrams: 02/27/19 23:37 02/27/19 19:41 Lab Results 02/27/19 02/27/19 Range/Units 19:41 19:41 WBC 5.76 (4.8-10.8) K/uL RBC 4.16 L (4.2-5.4) M/uL Hgb 10.2 L (12.0-16.0) g/dL Hct 31.5 L (37-47) % MCV 75.7 L (80-100) fL MCH 24.5 L (25-34) pg MCHC 32.4 (32-36) g/dL RDW Std Deviation 47.0 H (36.4-46.3) fL RDW Coeff of Ana M 16.8 H (11.5-14.5) % Plt Count 235 (130-400) K/uL MPV 8.8 (7.4-10.4) fL Immature Gran % (Auto) 0.2 % Neut % (Auto) 46.9 % Lymph % (Auto) 39.4 % [place] % (Auto) 8.7 % Eos % (Auto) 4.5 % Baso % (Auto) 0.3 % Immature Gran # (Auto) 0.01 (0.00-0.02) K/uL Neut # (Auto) 2.70 (1.4-6.5) K/uL Lymph # (Auto) 2.27 (1.2-3.4) K/uL [place] # (Auto) 0.50 (0.11-0.59) K/uL Eos # (Auto) 0.26 (0-0.5) K/uL Baso # (Auto) 0.02 (0-0.2) K/uL Sodium 143 (136-145) mmol/L Potassium 3.5 (3.5-5.1) mmol/L Chloride 114 H (98-107) mmol/L Carbon Dioxide 22 (21-32) mmol/L Anion Gap 7.0 (3-11) BUN 12 (7-18) mg/dl Creatinine 0.97 (0.6-1.2) mg/dl Est Cr Clr Drug Dosing 55.5 ml/min Est GFR ( Amer) 73.6 Est GFR (Non-Af Amer) 63.5 BUN/Creatinine Ratio 12.6 (10-20) Glucose 81 (70-99) mg/dl Calcium 8.5 (8.5-10.1) mg/dl Magnesium 1.9 (1.8-2.4) mg/dl Total Bilirubin 0.3 (0.2-1) mg/dl AST 14 L (15-37) U/L ALT 11 L (12-78) U/L Alkaline Phosphatase 74 (45-117) U/L Troponin I < 0.015 (0-0.045) ng/ml Total Protein 6.4 (6.4-8.2) gm/dl Albumin 3.2 L (3.4-5.0) gm/dl Globulin 3.2 (2.5-4.0) gm/dl Albumin/Globulin Ratio 1.0 (0.9-2) Lipase 131 (73-393) U/L Imaging Data Radiologist's Impression: Radiology results as stated below per my review and the radiologist's interpretation: XR abdomen 2V w PA chest CLINICAL HISTORY: 58 years-old Female presenting with nausea and vomiting. TECHNIQUE: PA view of the chest and supine and upright views of the abdomen were obtained. COMPARISON: 02/25/2019. FINDINGS: Right subclavian Mediport terminates in the mid SVC and has been accessed. Cardiomediastinal silhouette normal apart from hyperdensity projecting at the gastroesophageal junction. Chronic blunting of the right costophrenic angle. No new focal opacity. No large effusion or pneumothorax. Surgical clips and/or surgical material project at the gastric cardia. Cholecystectomy clips. Nonobstructive bowel gas pattern though there is mild wall thickening suggested in a proximal loop of small bowel. No gross pneumoperitoneum. Limited evaluation for calcifications given the bowel gas pattern. Osseous structures normal. IMPRESSION: 1. No acute cardiopulmonary disease. 2. Small bowel wall thickening raises concern for enteritis, possibly infectious or inflammatory. Electronically signed by: Jeovany Bach M.D. 02/27/2019 9:02 PM ECG Data Attestation: I personally reviewed and interpreted this ECG as follows: Indication: abdominal pain Rate (beats per minute): 57 Rhythm: sinus bradycardia Findings: + nonspecific-ST abn, + PAC and + PVC Blood Pressure Blood Pressure Findings: Normal blood pressure Blood Pressure Disposition: further management by hospitalist [facility] Narrative There is no leukocytosis. The patient is anemic but this is baseline for her looking back at previous testing. No significant electrolyte abnormality or kidney failure. No elevation to the LFTs. No evidence for pancreatitis. EKG shows a sinus rhythm, no acute ischemia. Cardiac enzyme testing x1 is not consistent with acute cardiac injury. Abdominal series shows some dilated small bowel, no bowel obstruction, no pneumonia or free air. On exam, there was no peritonitis. The patient was not febrile. The patient was given IV Benadryl, IV Pepcid, IV Reglan, IV Zofran, IV saline. She received IV morphine and then IV Dilaudid for pain control. She received IV Phenergan and eventually IV Emend. Despite all the above meds, the patient is still nauseated and feeling poorly. This is her second visit for the same symptoms over just a few days. She has a long history of severe gastroparesis. At this point, I do think a hospital stay is warranted. She appears to be having a severe gastroparesis flare. I spoke to case management, I talked to the patient and her family. The on-call hospitalist was consulted. Impression & Plan Epigastric abdominal pain, Gastroparesis, Dry heaves, Dehydration, Failure of outpatient treatment Discharge Plan Visit Data *Final* Discharge Date/Time: 02/27/19 22:36 Chief Complaint: GI Assessment Stated Complaint: GASTROPARESIS ED Provider: Bayron Mcmillan Discharge Problem: Epigastric abdominal pain, Gastroparesis, Dry heaves, Dehydration, Failure of outpatient treatment Patient Disposition: Admitted As Inpatient Discharge Instructions Interventions: ED Discharge Assessment Last Done: 02/27/19 22:36 The scribe's documentation has been prepared under my direction and personally reviewed by me in its entirety. I confirm that the note above accurately reflects all work, treatment, procedures, and medical decision making performed by me.
--- NOTE | 2019-02-27 21:03 | XRay Report ---
XR abdomen 2V w PA chest CLINICAL HISTORY: 58 years-old Female presenting with nausea and vomiting. TECHNIQUE: PA view of the chest and supine and upright views of the abdomen were obtained. COMPARISON: 02/25/2019. FINDINGS: Right subclavian Mediport terminates in the mid SVC and has been accessed. Cardiomediastinal silhouet te normal apart from hyperdensity projecting at the gastroesophageal junction. Chronic blunting of th e right costophrenic angle. No new focal opacity. No large effusion or pneumothorax. Surgical clips and/or surgical material project at the gastric cardia. Cholecystectomy clips. Nonobst ructive bowel gas pattern though there is mild wall thickening suggested in a proximal loop of small bowel. No gross pneumoperitoneum. Limited evaluation for calcifications given the bowel gas pattern. Osseous structures normal. IMPRESSION: 1. No acute cardiopulmonary disease. 2. Small bowel wall thickening raises concern for enteritis, possibly infectious or inflammatory. Electronically signed by: Jeovany Bach M.D. 02/27/2019 9:02 PM
[2019-02-27] MEDS ORDERED: MoRPHine SULFATE 4 MG/ML 1 ML CARP\\VIAL IV STA (21:05)
[2019-02-27] MEDS ORDERED: PROMETHAZINE HCL 6.25 MG in SODIUM CHLORIDE 0.9% 50 ML IV STA (21:37)
[2019-02-27] MEDS ORDERED: PROMETHAZINE 6.25 MG/50.25 ML NSS IV ONE (21:44)
[2019-02-27] MEDS ORDERED: HYDROmorphone INJ 0.5 MG/0.5 ML SYR IV STA (21:50)
--- NOTE | 2019-02-27 22:20 | History & Physical Report ---
Date of Service February 27, 2019 Assessment & Plan (1) Enteritis: This is a 58 yo F with a PMG of gastroparesis, IBS, HTN, GERD, frequent PVCs, anemia and other medical problems listed below who presents with abdominal pain x 3 days and was found to have non-specific enteritis. -H/o severe gastroparesis, chronic diarrhea -CT abd pelvis with evidence of small bowel wall thickening raising concern for enteritis -Received Emend in ED at time of admission -Clear liquids, maintenance fluids -C diff, stool culture pending -Empiric antibiotic coverage with Rocephin, Flagyl -Routine GI consult (2) Nausea: (3) Gastroparesis: History of multiple admissions for intractable nausea, gastroparesis -Given 150mg Emend in ED -IV Reglan Q6H PRN -Gentle IV fluids -Clear liquid diet (4) GERD (gastroesophageal reflux disease): Continue PPI and H2 lauren (5) Frequent PVCs: EKG with sinus bradycardia with PACs, PVCs (baseline) -Continue digoxin (6) Hypothyroidism: Continue Levothyroxine (7) Anemia, iron deficiency: Hgb of 10.2 (baseline) -Monitor CBC (8) Anxiety: Continue Lexapro, Klonopin PRN DVT Ppx: SQ lovenox Code status: FULL PCP: Abdon Dispo: Observation med tele. Plan to return home once medically stable. Patient seen in collaboration with Dr. Coppola. Please see addendum. History of Present Illness Chief Complaint: Abdominal pain Primary Care Provider: Jaleel Coppola MD This is a 58 yo F with a PMG of gastroparesis, IBS, HTN, GERD, frequent PVCs, anemia and other medical problems listed below who presents with abdominal pain x 3 days. Patient feels like she is having a "gastroparesis attack". Endorsing epigastric pain that is constant with radiation to her back. Has had decreased appetite and dry heaves but denies any vomiting. Patient has chronic diarrhea and endorses 6-7 episodes daily, but is only had 1-2 episodes the past 2 days. Denies any fever or chills. Was evaluated in the ED last night with resolution of symptoms after being given Reglan, IV Tylenol and IV fluids. Pain returned once patient was at home, so she came back to ED today for further evaluation. Currently endorsing abdominal pain and nausea. Denies lightheadedness, headache, chest pain, palpitations, shortness of breath, vomiting, dysuria, diarrhea, melena or hematochezia. Patient is hemodynamically stable and afebrile. No leukocytosis. Hemoglobin is at baseline. Chest/abdomen x-ray with no acute cardiopulmonary disease. Small bowel wall thickening raises concern for enteritis, possibly infectious or inflammatory. ED physician discussed with [facility] GI service and gave the patient 150mg of Emend. Follows with Dr. Ridley in GI clinic. Allergies Allergy/AdvReac Type Severity Reaction Status Date / Time adhesive Allergy Mild SKIN Verified 02/27/19 19:56 IRRITATION amoxicillin AdvReac Intermediate yeast Verified 02/27/19 19:56 infection NSAIDS (Non-Steroidal AdvReac Mild indegestion Verified 02/27/19 19:56 Anti-Inflamma rofecoxib AdvReac Mild indigestion Verified 02/27/19 19:56 scopolamine AdvReac Mild rash from Verified 02/27/19 19:56 patch Home Medications Home Medications Medication Instructions Recorded Confirmed Type levothyroxine 75 mcg PO DAILY #0 10/31/13 02/27/19 History clonazepam 0.5 mg PO TID PRN #0 06/22/14 02/27/19 History famotidine [Pepcid] 40 mg PO BID #0 tab 04/15/17 02/27/19 History escitalopram oxalate [Lexapro] 20 mg PO HS #0 tab 08/08/17 02/27/19 History metoclopramide HCl 10 mg PO TIDM #0 tab 08/08/17 02/27/19 History lansoprazole 30 mg PO DAILY 05/26/18 02/27/19 History multivitamin 1 tab PO DAILY 09/09/18 02/27/19 History ondansetron HCl [Zofran] 8 mg PO Q6H PRN 09/09/18 02/27/19 History digoxin 125 mcg PO HS 02/27/19 02/27/19 History Past Med/Surg History Medical History Gastroparesis (Chronic) H/O irritable bowel syndrome (Chronic) Pernicious anemia (Chronic) Diverticulosis (Chronic) GERD (gastroesophageal reflux disease) (Chronic) Anxiety (Chronic) Depression (Chronic) COPD (chronic obstructive pulmonary disease) (Chronic) Frequent PVCs (Chronic) Asthma (Chronic) Premature atrial contractions (Chronic) Tobacco abuse (Chronic) Anemia, iron deficiency (Chronic) MRSA bacteremia (Resolved) Neuropathy (Chronic) Hypothyroidism (Chronic) Mitral regurgitation (Chronic) "moderate per echo 09/21/15" Pemphigus vulgaris Surgical History History of pyloroplasty (Resolved) laparoscopic pyloroplasty By Dr Zapata, [facility] [place] History of laparoscopic partial gastrectomy (Resolved) 03/2012 - Dr Dove at [facility] [place] Hx of tonsillectomy (Resolved) History of total hysterectomy (Resolved) History of bladder surgery Hx of cholecystectomy S/P hysterectomy S/P laparoscopic sleeve gastrectomy S/P partial gastrectomy S/P repair of paraesophageal hernia "resulted in volvulus, required abdominal exploration" S/P tonsillectomy and adenoidectomy Family History Mother DM type 2 (diabetes mellitus, type 2) Coronary heart disease Social History Preferred Language: [place] Communication Ability: Effective Beliefs That Will Affect Care: None Current Living Situation: Family Feels Safe at Home: Yes Smoking Status: Never smoker Tobacco Type: cigarettes Cigarettes Per Day: 1/2 pack Second Hand Exposure: Yes Hx Alcohol Use: No Hx Substance Use: No Review of Systems Review of Systems: At least ten systems reviewed and negative except as noted in the HPI. Physical Exam Physical Exam: General Appearance: WD/WN, appears to be in acute pain Head: normocephalic, atraumatic Eyes: normal inspection, PERRL, EOMI ENT: hearing grossly normal, pharynx normal Neck: supple, no JVD, no adenopathy Respiratory/Chest: lungs clear to auscultation. No wheezes, rales or rhonci. No respiratory distress or accessory muscle use Cardiovascular: tachycardic, no murmur, normal peripheral pulses Abdomen/GI: normal bowel sounds, soft, diffuse TTP of abdomen, pain most pronounced in epigastrium Extremities/Musculoskelatal: normal inspection, no calf tenderness, normal capillary refill, no pedal edema Neurologic/Psych: alert, anxious mood/affect, oriented x 3 Skin: normal color, warm/dry Results & Data Vital Signs (Past 12 Hours) Vital Signs Temp Pulse Resp BP Pulse Ox 02/27/19 21:40 50 L 13 98 02/27/19 21:30 55 L 15 98 02/27/19 21:20 52 L 16 100 02/27/19 21:10 51 L 14 100 02/27/19 21:00 54 L 17 124/83 99 02/27/19 20:53 57 L 14 02/27/19 20:40 56 L 19 100 02/27/19 20:30 57 L 24 100 02/27/19 20:26 100 02/27/19 20:22 57 L 16 138/84 100 02/27/19 19:31 36.9 C 60 18 117/82 98 Laboratory Results Short CBC 02/27/19 Range/Units 19:41 WBC 5.76 (4.8-10.8) K/uL Hgb 10.2 L (12.0-16.0) g/dL Hct 31.5 L (37-47) % Plt Count 235 (130-400) K/uL BMP 02/27/19 19:41 Sodium 143 Potassium 3.5 Chloride 114 H Carbon Dioxide 22 BUN 12 Creatinine 0.97 Glucose 81 Calcium 8.5 Cardiac Enzymes 02/27/19 Range/Units 19:41 Troponin I < 0.015 (0-0.045) ng/ml Liver Function 02/27/19 Range/Units 19:41 Total Bilirubin 0.3 (0.2-1) mg/dl AST 14 L (15-37) U/L ALT 11 L (12-78) U/L Alkaline Phosphatase 74 (45-117) U/L Albumin 3.2 L (3.4-5.0) gm/dl Diagnostic Findings Chest/abdomen XR: IMPRESSION: 1. No acute cardiopulmonary disease. 2. Small bowel wall thickening raises concern for enteritis, possibly infectious or inflammatory. ECG Rhythm: sinus bradycardia Findings: + PAC and + PVC Change: no significant change Supervising Physician Co-Signing Physician Notes Patient is a 58-year-old female with history of severe gastroparesis, IBS-D, mood disorder, frequent PVCs and other problems presents with history of worsening abdominal pain since 3 days duration. Abdominal pain is sharp, radiates to the back, constant, predominantly epigastric, upper abdominal region, associated with poor appetite, intractable nausea with no vomiting. Also states having chronic diarrhea which is loose watery, nonbloody unchanged. Denies any fever chills, chest pain, shortness of breath, dizziness. Please review HPI for complete details of presentation. No signs of sepsis. Abdominal x-ray suggestive of possible enteritis. ER physician discussed with day treatment clinician/art therapist on-call who recommended Emend which was given in ED. On exam patient is moderately built and nourished, no apparent distress, normocephalic atraumatic, lungs are clear to auscultation, S1-S2, bradycardia, no murmur, abdomen is soft, diffuse upper abdominal tenderness, no guarding rigidity, bowel sounds are present, grossly no focal neurological deficits, no pedal edema. Patient is admitted for management of intractable nausea, enteritis. Will check stool studies to rule out C. difficile. Empirically started on Rocephin, Flagyl. GI consulted. Consider CT abdomen if clinically shows no improvement with conservative management. We will continue IV Reglan as needed. Clear liquid diet and advance as tolerated. Patient noted to have some chronic sinus bradycardia. Monitor heart rate while hospitalized. I personally reviewed the record. Patient is interviewed and examined at bedside. Patient's care is coordinated with Georgia Hernández PA-C. Please refer to the documentation above for details of patient's presentation and for discussion of other issues. (1) Hypothyroidism Hypothyroidism type: acquired Qualified Code(s): E03.9 - Hypothyroidism, unspecified (2) GERD (gastroesophageal reflux disease) Esophagitis presence: with esophagitis Qualified Code(s): K21.0 - Gastro- esophageal reflux disease with esophagitis
[2019-02-27] MEDS ORDERED: clonazePAM 0.5 MG TAB PO PRN (23:08)
[2019-02-27] MEDS ORDERED: METRONIDAZOLE CONSULT ACTIVE PRN (23:13)
[2019-02-27] MEDS: METOCLOPRAMIDE HCL INJ 5 MG/ML 2 ML VIAL IV PRN (23:32)
[2019-02-27] MEDS: cefTRIAXone SODIUM 1,000 MG in DEXTROSE 5% 50 ML IV SCH (23:33)
[2019-02-27] MEDS: SODIUM CHLORIDE 0.9% 1000ML 1,000 ML IV SCH (23:33)
[2019-02-27 23:46] LABS: Hematocrit (blood only) 29.5 % (37-47); Hemoglobin 9.4 g/dL (12.0-16.0); Mean Corpuscular Hgb Conc 31.9 g/dL (32-36); Mean Corpuscular Volume 76.6 fL (80-100); Platelet Count 209 K/uL (130-400); RDW Coefficient of Variation 16.9 % (11.5-14.5); RDW Standard Deviation 47.3 fL (36.4-46.3); Red Blood Count 3.85 M/uL (4.2-5.4); White Blood Count 4.81 K/uL (4.8-10.8)
[2019-02-28] MEDS: ALUMINUM/MAGNESIUM SUSP 30 ML UDC PO PRN ×3 (00:02→20:13)
[2019-02-28] MEDS: metroNIDAZOLE 500 MG/100 ML BAG IV SCH ×3 (00:04→17:20)
[2019-02-28] MEDS: DIGOXIN 0.125 MG TAB PO SCH ×2 (00:43→20:21)
[2019-02-28] MEDS ORDERED: PANTOprazole 40 MG in SYRINGE 0 ML IV ONE (01:00)
[2019-02-28] MEDS ORDERED: ROCEPHIN~PHARMACY CONSULT IN PROGRESS PRN (02:16)
[2019-02-28] MEDS: MoRPHine SULFATE 2 MG/ML CARP IV PRN ×2 (03:18→23:17)
[2019-02-28] MEDS ORDERED: DEXAMETHASONE SOD PHOSPHATE 10 MG in SYRINGE 0 ML IV ONE (03:30)
[2019-02-28] MEDS: PROMETHAZINE HCL 12.5 MG in SODIUM CHLORIDE 0.9% 50 ML IV PRN ×3 (03:47→23:17)
[2019-02-28] MEDS: FAMOTIDINE 20 MG in SYRINGE 3 ML IV SCH ×2 (03:47→20:21)
[2019-02-28] MEDS: LEVOTHYROXINE SODIUM 75 MCG TABLET PO SCH (06:09)
[2019-02-28] MEDS: MULTIVITAMIN TAB PO SCH (07:47)
[2019-02-28 07:55] LABS: Hemoglobin 9.5 g/dL (12.0-16.0); Mean Corpuscular Hgb Conc 31.7 g/dL (32-36); Mean Corpuscular Volume 77.7 fL (80-100); Mean Platelet Volume 9.2 fL (7.4-10.4); Platelet Count 219 K/uL (130-400); RDW Standard Deviation 48.6 fL (36.4-46.3); Red Blood Count 3.86 M/uL (4.2-5.4); White Blood Count 5.54 K/uL (4.8-10.8)
[2019-02-28 08:04] LABS: Partial Thromboplastin Ratio 0.9; Partial Thromboplastin Time 23.1 Seconds (21.0-31.0); Prothrombin Time 10.6 Seconds (9.0-12.0)
[2019-02-28 08:22] LABS: BUN Creatinine Ratio 11.8 (10-20); Est GFR (African American) 73.6; Est GFR (Non-African American) 63.5; Potassium 3.9 mmol/L (3.5-5.1)
[2019-02-28 08:25] LABS: Bilirubin,Total 0.3 mg/dl (0.2-1)
[2019-02-28] MEDS ORDERED: PANTOprazole 40 MG TAB PO SCH (09:00)
[2019-02-28] MEDS ORDERED: FAMOTIDINE 20MG/5ML IV PUSH IV SCH (09:00)
[2019-02-28] MEDS ORDERED: FAMOTIDINE 20 MG in SYRINGE 3 ML IV SCH (09:00)
[2019-02-28] MEDS: ENOXAPARIN INJ 40 MG/0.4 ML SYR SQ SCH (09:57)
[2019-02-28] MEDS: METOCLOPRAMIDE HCL INJ 5 MG/ML 2 ML VIAL IV PRN ×2 (10:04→17:27)
--- NOTE | 2019-02-28 10:34 | Gastrointestinal Consultation ---
Date of Consultation February 28, 2019 Assessment & Plan (1) Enteritis: 58 year old female with history of IBS-D, gastroparesis admitted through the ED w/ nausea/vomiting and diarrhea. She was given a dose of Emend and has had resolution of her nausea/vomiting but has persistent diarrhea. - Stool culture - Stool for c.diff - Continue Reglan PRN - Maintenance IV fluid - Trial clear liquids --> then advance to gastroparesis diet as tolerated - Thank you for allowing us to participate in the care of this patient. Please call with any acute changes, questions or concerns. Please see addendum below with additional recommendation from my supervising physician. Present on Admission?: Yes (2) Nausea: Present on Admission?: Yes Supervising Physician Co-Signing Physician Notes I have seen and examined the patient with VANIA Bergeron whose note reflects our findings and plan. History of Present Illness Reason for Consultation: gastroparesis Requesting Physician: Lauren Attending Physician: Nena Aguilar MD History of Present Illness 58 year old female with history of COPD, anxiety and gastroparesis as result of a prior paraesophageal hernia with postoperative complications admitted through the ED for upper abd pain, nausea, vomiting and diarrhea. Pt was seen and evaluated, chart reviewed. Notes on Sunday had return of nausea, vomiting and abd pain. This was initially managed at home but persisted. In the ED she was given Emend which has greatly resolved her nausea, vomiting pain but she has persistent diarrhea. She notes this is new. For the past 6 months. Moves bowels about 10-12 times daily. No black/bloody stools. In the ED she was afebrile w/o leukocytosis w/o evidence of anemia with no acute cardiopulmonary disease. Small bowel wall thickening raises concern for enteritis, possibly infectious or inflammatory. KUB: No acute cardiopulmonary disease. Small bowel wall thickening raises concern for enteritis, possibly infectious or inflammatory. Allergies Allergy/AdvReac Type Severity Reaction Status Date / Time adhesive Allergy Mild SKIN Verified 02/27/19 19:56 IRRITATION amoxicillin AdvReac Intermediate yeast Verified 02/27/19 19:56 infection NSAIDS (Non-Steroidal AdvReac Mild indegestion Verified 02/27/19 19:56 Anti-Inflamma rofecoxib AdvReac Mild indigestion Verified 02/27/19 19:56 scopolamine AdvReac Mild rash from Verified 02/27/19 19:56 patch Home Medications Home Medications Medication Instructions Recorded Confirmed Type levothyroxine 75 mcg PO DAILY #0 10/31/13 02/27/19 History clonazepam 0.5 mg PO TID PRN #0 06/22/14 02/27/19 History famotidine [Pepcid] 40 mg PO BID #0 tab 04/15/17 02/27/19 History escitalopram oxalate [Lexapro] 20 mg PO HS #0 tab 08/08/17 02/27/19 History metoclopramide HCl 10 mg PO TIDM #0 tab 08/08/17 02/27/19 History lansoprazole 30 mg PO DAILY 05/26/18 02/27/19 History multivitamin 1 tab PO DAILY 09/09/18 02/27/19 History ondansetron HCl [Zofran] 8 mg PO Q6H PRN 09/09/18 02/27/19 History digoxin 125 mcg PO HS 02/27/19 02/27/19 History Patient History Medical History Gastroparesis (Chronic) H/O irritable bowel syndrome (Chronic) Pernicious anemia (Chronic) Diverticulosis (Chronic) GERD (gastroesophageal reflux disease) (Chronic) Anxiety (Chronic) Depression (Chronic) COPD (chronic obstructive pulmonary disease) (Chronic) Frequent PVCs (Chronic) Asthma (Chronic) Premature atrial contractions (Chronic) Tobacco abuse (Chronic) Anemia, iron deficiency (Chronic) MRSA bacteremia (Resolved) Neuropathy (Chronic) Hypothyroidism (Chronic) Mitral regurgitation (Chronic) "moderate per echo 09/21/15" Pemphigus vulgaris Surgical History [place] of pyloroplasty (Res[place]) [place] [facility] [place] of laparoscopic partial gastrectomy (Resolved) 03/2012 - Dr [place] [facility] [place] Hx of tonsillectomy (Resolved) History of total hysterectomy (Resolved) History of bladder surgery Hx of cholecystectomy S/P hysterectomy S/P laparoscopic sleeve gastrectomy S/P partial gastrectomy S/P repair of paraesophageal hernia "resulted in volvulus, required abdominal exploration" S/P tonsillectomy and adenoidectomy Family History Mother DM type 2 (diabetes mellitus, type 2) Coronary heart disease Social History Preferred Language: Greenlandic Communication Ability: Effective Customs Director Required: No Beliefs That Will Affect Care: None Current Living Situation: Family Other Information That Helps Us Care for You: No Feels Safe at Home: Yes Safety Concerns: Feels Safe At This Time Smoking Status: Current every day smoker Tobacco Type: cigarettes Cigarettes Per Day: 1/2 pack Do You Dip or Chew Tobacco: No Second Hand Exposure: Yes Tobacco Cessation Education Requested by Patient: No Hx Alcohol Use: No Hx Substance Use: No Review of Systems Constitutional: no fever and no body aches Respiratory: no cough and no dyspnea Cardiovascular: no chest pain, no radiating jaw, neck or arm pain and no dyspnea on exertion Gastrointestinal: + nausea, + change in stools and + diarrhea/loose stools; no abdominal pain, no belching, no bloating, no early satiety, no heartburn, no vomiting, no coffee ground emesis, no dysphagia, no excessive flatulence, no fecal incontinence, no constant urge to pass stools, no blood in stools, no melena and no problem reported Physical Exam Constitutional: well developed and well nourished; no acute distress Neck: trachea midline Respiratory: normal respiratory effort, lungs clear to auscultation Cardiovascular: Rate/Rhythm: regular rate and regular rhythm Gastrointestinal (Abdomen): normal bowel sounds, soft, nontender, no hepatosplenomegaly Skin: no rashes, warm and dry Results & Data Vital Signs (Past 12 Hours) Vital Signs Temp Pulse Pulse Resp BP BP Pulse Ox 02/28/19 07:31 36.7 C 50 L 18 105/69 97 02/28/19 04:09 36.8 C 50 L 16 98/67 L 96 02/28/19 00:43 62 02/27/19 23:33 36.7 C 61 18 120/80 96 02/27/19 22:36 64 18 120/84 99 Laboratory Results 02/28/19 02/28/19 02/28/19 Range/Units 07:00 07:00 07:00 WBC 5.54 (4.8-10.8) K/uL RBC 3.86 L (4.2-5.4) M/uL Hgb 9.5 L (12.0-16.0) g/dL Hct 30.0 L (37-47) % MCV 77.7 L (80-100) fL MCH 24.6 L (25-34) pg MCHC 31.7 L (32-36) g/dL RDW Std Deviation 48.6 H (36.4-46.3) fL RDW Coeff of Ana M 17.0 H (11.5-14.5) % Plt Count 219 (130-400) K/uL MPV 9.2 (7.4-10.4) fL Immature Gran % (Auto) % Neut % (Auto) % Lymph % (Auto) % [place] % (Auto) % Eos % (Auto) % Baso % (Auto) % Immature Gran # (Auto) (0.00-0.02) K/uL Neut # (Auto) (1.4-6.5) K/uL Lymph # (Auto) (1.2-3.4) K/uL [place] # (Auto) (0.11-0.59) K/uL Eos # (Auto) (0-0.5) K/uL Baso # (Auto) (0-0.2) K/uL PT 10.6 (9.0-12.0) Seconds INR 1.0 (0.9-1.1) APTT 23.1 (21.0-31.0) Seconds PTT Ratio 0.9 Sodium 145 (136-145) mmol/L Potassium 3.9 (3.5-5.1) mmol/L Chloride 115 H (98-107) mmol/L Carbon Dioxide 22 (21-32) mmol/L Anion Gap 7.0 (3-11) BUN 11 (7-18) mg/dl Creatinine 0.97 (0.6-1.2) mg/dl Est Cr Clr Drug Dosing 60.0 ml/min Est GFR ( Amer) 73.6 Est GFR (Non-Af Amer) 63.5 BUN/Creatinine Ratio 11.8 (10-20) Glucose 92 (70-99) mg/dl Calcium 8.0 L (8.5-10.1) mg/dl Magnesium 2.0 (1.8-2.4) mg/dl Total Bilirubin 0.3 (0.2-1) mg/dl AST 254 H (15-37) U/L ALT 78 (12-78) U/L Alkaline Phosphatase 133 H (45-117) U/L Troponin I (0-0.045) ng/ml Total Protein 6.0 L (6.4-8.2) gm/dl Albumin 3.0 L (3.4-5.0) gm/dl Globulin 3.0 (2.5-4.0) gm/dl Albumin/Globulin Ratio 1.0 (0.9-2) Lipase (73-393) U/L 02/27/19 02/27/19 02/27/19 Range/Units 23:37 19:41 19:41 WBC 4.81 5.76 (4.8-10.8) K/uL RBC 3.85 L 4.16 L (4.2-5.4) M/uL Hgb 9.4 L 10.2 L (12.0-16.0) g/dL Hct 29.5 L 31.5 L (37-47) % MCV 76.6 L 75.7 L (80-100) fL MCH 24.4 L 24.5 L (25-34) pg MCHC 31.9 L 32.4 (32-36) g/dL RDW Std Deviation 47.3 H 47.0 H (36.4-46.3) fL RDW Coeff of Ana M 16.9 H 16.8 H (11.5-14.5) % Plt Count 209 235 (130-400) K/uL MPV 9.0 8.8 (7.4-10.4) fL Immature Gran % (Auto) 0.2 % Neut % (Auto) 46.9 % Lymph % (Auto) 39.4 % [place] % (Auto) 8.7 % Eos % (Auto) 4.5 % Baso % (Auto) 0.3 % Immature Gran # (Auto) 0.01 (0.00-0.02) K/uL Neut # (Auto) 2.70 (1.4-6.5) K/uL Lymph # (Auto) 2.27 (1.2-3.4) K/uL [place] # (Auto) 0.50 (0.11-0.59) K/uL Eos # (Auto) 0.26 (0-0.5) K/uL Baso # (Auto) 0.02 (0-0.2) K/uL PT (9.0-12.0) Seconds INR (0.9-1.1) APTT (21.0-31.0) Seconds PTT Ratio Sodium 143 (136-145) mmol/L Potassium 3.5 (3.5-5.1) mmol/L Chloride 114 H (98-107) mmol/L Carbon Dioxide 22 (21-32) mmol/L Anion Gap 7.0 (3-11) BUN 12 (7-18) mg/dl Creatinine 0.97 (0.6-1.2) mg/dl Est Cr Clr Drug Dosing 55.5 ml/min Est GFR ( Amer) 73.6 Est GFR (Non-Af Amer) 63.5 BUN/Creatinine Ratio 12.6 (10-20) Glucose 81 (70-99) mg/dl Calcium 8.5 (8.5-10.1) mg/dl Magnesium 1.9 (1.8-2.4) mg/dl Total Bilirubin 0.3 (0.2-1) mg/dl AST 14 L (15-37) U/L ALT 11 L (12-78) U/L Alkaline Phosphatase 74 (45-117) U/L Troponin I < 0.015 (0-0.045) ng/ml Total Protein 6.4 (6.4-8.2) gm/dl Albumin 3.2 L (3.4-5.0) gm/dl Globulin 3.2 (2.5-4.0) gm/dl Albumin/Globulin Ratio 1.0 (0.9-2) Lipase 131 (73-393) U/L
[2019-02-28] MEDS: SODIUM CHLORIDE 0.9% 1000ML 1,000 ML IV SCH (16:31)
--- NOTE | 2019-02-28 17:27 | Hospitalist Progress Note ---
Date of Service February 28, 2019 Assessment & Plan (1) Enteritis: Present on admission with abdominal pain associated with diarrhea and Nausea H/o severe gastroparesis, chronic diarrhea Xray abdomen showed small bowel wall thickening raises concern for enteritis, possibly infectious or inflammatory. Received Emend in ED that helped Gastro on board Continue clear liquid diet and IVF Has not had any diarrhea today yet Continue Rocephin and Flagyl Continue monitor (2) Nausea: (3) Gastroparesis: History of multiple admissions for intractable nausea, gastroparesis Continue IV Reglan Q6H PRN Gentle hydration Clear liquid diet and advanced as tolerated (4) GERD (gastroesophageal reflux disease): Continue PPI and H2 lauren (5) Frequent PVCs: Asymptomatic EKG with sinus bradycardia with PACs, PVCs (baseline) Continue digoxin (6) Hypothyroidism: Continue Levothyroxine (7) Anemia, iron deficiency: Hgb of 9.5 Stable (8) Anxiety: Continue Lexapro, Klonopin PRN DVT Ppx: SQ lovenox Code status: FULL PCP: Abdon Dispo: Discharge once medically stable Subjective Pt was seen and examined Lying in bed with no distress Pt said that she has not been vomiting, but has alot of dry hives She said that she has not had any diarrhea since admitted She said that she is slightly better Denies any chest pain, palpitation, dizziness and SOB Physical Exam Physical Exam: General- No acute distress Head- atraumatic Eyes- PERRL, EOMI, ENT- oropharynx clear Neck- supple, no JVD Lungs- clear to auscultation Heart- regular rhythm; no murmur Abdomen- normal bowel sounds, soft, nontender Extremities- no calf tenderness Neuro- alert, oriented x 3; PERRL, EOMI; no facial palsy; no dysarthria Skin- warm & dry Results & Data Vital Signs (Past 12 Hours) Vital Signs Temp Pulse Resp BP Pulse Ox 02/28/19 15:11 36.7 C 50 L 18 108/74 97 02/28/19 11:27 36.7 C 51 L 18 98/64 L 94 02/28/19 07:31 36.7 C 50 L 18 105/69 97 02/28/19 04:09 36.8 C 50 L 16 98/67 L 96 (1) Hypothyroidism Hypothyroidism type: acquired Qualified Code(s): E03.9 - Hypothyroidism, unspecified (2) GERD (gastroesophageal reflux disease) Esophagitis presence: with esophagitis Qualified Code(s): K21.0 - Gastro-esophageal reflux disease with esophagitis
[2019-02-28] MEDS: ESCITALOPRAM OXALATE 20 MG TAB PO SCH (21:08)
[2019-02-28] MEDS ORDERED: HEPARIN 100 UNIT/ML 5ML FLUSH FLUSH PRN (22:47)
[2019-02-28] MEDS: cefTRIAXone SODIUM 1,000 MG in DEXTROSE 5% 50 ML IV SCH (23:36)
[2019-03-01] MEDS: metroNIDAZOLE 500 MG/100 ML BAG IV SCH ×4 (00:13→23:26)
[2019-03-01] MEDS: METOCLOPRAMIDE HCL INJ 5 MG/ML 2 ML VIAL IV PRN ×2 (01:20→11:48)
[2019-03-01] MEDS: MoRPHine SULFATE 2 MG/ML CARP IV PRN (04:06)
[2019-03-01] MEDS: SODIUM CHLORIDE 0.9% 1000ML 1,000 ML IV SCH ×2 (06:02→22:51)
[2019-03-01] MEDS: LEVOTHYROXINE SODIUM 75 MCG TABLET PO SCH (06:03)
[2019-03-01 07:03] LABS: Hematocrit (blood only) 27.7 % (37-47); Hemoglobin 8.8 g/dL (12.0-16.0); Mean Corpuscular Hgb Conc 31.8 g/dL (32-36); Mean Corpuscular Volume 77.4 fL (80-100); Mean Platelet Volume 9.1 fL (7.4-10.4); Platelet Count 209 K/uL (130-400); RDW Coefficient of Variation 16.8 % (11.5-14.5); RDW Standard Deviation 48.5 fL (36.4-46.3); Red Blood Count 3.58 M/uL (4.2-5.4); White Blood Count 5.67 K/uL (4.8-10.8)
[2019-03-01 07:38] LABS: Albumin Level 2.7 gm/dl (3.4-5.0); Calcium 7.9 mg/dl (8.5-10.1); Creatinine Clr Calc Pharmacy 61.9 ml/min; Est GFR (African American) 83.9; Est GFR (Non-African American) 72.4; Magnesium 2.1 mg/dl (1.8-2.4); Potassium 3.8 mmol/L (3.5-5.1)
[2019-03-01 07:40] LABS: Albumin Globulin Ratio 0.9 (0.9-2); Bilirubin,Total 0.2 mg/dl (0.2-1); Total Protein 5.7 gm/dl (6.4-8.2)
[2019-03-01] MEDS: ENOXAPARIN INJ 40 MG/0.4 ML SYR SQ SCH (07:52)
[2019-03-01] MEDS: FAMOTIDINE 20 MG in SYRINGE 3 ML IV SCH ×2 (07:52→20:06)
[2019-03-01] MEDS: MULTIVITAMIN TAB PO SCH (07:52)
[2019-03-01] MEDS: PANTOprazole 40 MG TAB PO SCH (07:52)
[2019-03-01] MEDS: ALUMINUM/MAGNESIUM SUSP 30 ML UDC PO PRN ×2 (11:48→20:05)
[2019-03-01] MEDS ORDERED: FOSAPREPITANT DIMEGLUMINE 115 MG in 0.9 % SODIUM CHLORIDE 111.2 ML IV ONE (11:57)
[2019-03-01] MEDS: PROMETHAZINE HCL 12.5 MG in SODIUM CHLORIDE 0.9% 50 ML IV PRN (15:45)
--- NOTE | 2019-03-01 16:54 | Hospitalist Progress Note ---
Date of Service March 01, 2019 Assessment & Plan (1) Enteritis: Present on admission with abdominal pain associated with diarrhea and Nausea H/o severe gastroparesis, chronic diarrhea Xray abdomen showed small bowel wall thickening raises concern for enteritis, possibly infectious or inflammatory. Received Emend in ED that helped Gastro on board Continue clear liquid diet and IVF Has not had any diarrhea today yet Continue Rocephin and Flagyl Continue monitor (2) Nausea: (3) Gastroparesis: History of multiple admissions for intractable nausea, gastroparesis Continue IV Reglan Q6H PRN Gentle hydration Clear liquid diet and advanced as tolerated Monitor electrolytes (4) GERD (gastroesophageal reflux disease): Continue PPI and H2 lauren (5) Frequent PVCs: Asymptomatic EKG with sinus bradycardia with PACs, PVCs (baseline) Continue digoxin (6) Hypothyroidism: Continue Levothyroxine (7) Anemia, iron deficiency: Hgb of 8.8 today Stable (8) Anxiety: Continue Lexapro, Klonopin PRN DVT Ppx: SQ lovenox Code status: FULL PCP: Abdon Dispo: Discharge once medically stable Subjective Pt was seen and examined Lying in bed with no distress Pt said that her symptoms slightly improved She said that she had abdominal tenderness after eating early today Denies any chest pain, palpitation, dizziness and SOB Physical Exam Physical Exam: General- No acute distress Head- atraumatic Eyes- PERRL, EOMI, ENT- oropharynx clear Neck- supple, no JVD Lungs- clear to auscultation Heart- bradycardia, no murmur Abdomen- normal bowel sounds, soft, +tender Extremities- no calf tenderness Neuro- alert, oriented x 3; PERRL, EOMI; no facial palsy; no dysarthria Skin- warm & dry Results & Data Vital Signs (Past 12 Hours) Vital Signs Temp Pulse Pulse Resp BP Pulse Ox 03/01/19 15:44 36.8 C 51 L 18 129/83 99 03/01/19 15:23 47 L 03/01/19 11:25 36.7 C 48 L 20 137/85 99 03/01/19 07:00 36.9 C 50 L 18 123/81 97 (1) Hypothyroidism Hypothyroidism type: acquired Qualified Code(s): E03.9 - Hypothyroidism, unspecified (2) GERD (gastroesophageal reflux disease) Esophagitis presence: with esophagitis Qualified Code(s): K21.0 - Gastro- esophageal reflux disease with esophagitis
[2019-03-01] MEDS: SUCRALFATE 1 GM/10 ML UDC PO SCH ×2 (17:59→20:05)
[2019-03-01] MEDS: DIGOXIN 0.125 MG TAB PO SCH (20:04)
[2019-03-01] MEDS: ESCITALOPRAM OXALATE 20 MG TAB PO SCH (20:06)
[2019-03-01] MEDS: cefTRIAXone SODIUM 1,000 MG in DEXTROSE 5% 50 ML IV SCH (22:54)
[2019-03-02] MEDS: METOCLOPRAMIDE HCL INJ 5 MG/ML 2 ML VIAL IV PRN ×2 (02:04→15:46)
[2019-03-02] MEDS: MoRPHine SULFATE 2 MG/ML CARP IV PRN (02:04)
[2019-03-02] MEDS: PROMETHAZINE HCL 12.5 MG in SODIUM CHLORIDE 0.9% 50 ML IV PRN ×2 (03:45→19:57)
[2019-03-02] MEDS: ALUMINUM/MAGNESIUM SUSP 30 ML UDC PO PRN ×4 (03:51→22:50)
[2019-03-02] MEDS: LEVOTHYROXINE SODIUM 75 MCG TABLET PO SCH (06:02)
[2019-03-02 06:45] LABS: Hematocrit (blood only) 28.9 % (37-47); Hemoglobin 9.2 g/dL (12.0-16.0); Mean Corpuscular Hgb Conc 31.8 g/dL (32-36); Mean Corpuscular Volume 77.1 fL (80-100); Mean Platelet Volume 9.3 fL (7.4-10.4); Platelet Count 207 K/uL (130-400); RDW Standard Deviation 47.9 fL (36.4-46.3); Red Blood Count 3.75 M/uL (4.2-5.4); White Blood Count 5.41 K/uL (4.8-10.8)
[2019-03-02 07:28] LABS: BUN Creatinine Ratio 6.1 (10-20); Calcium 7.7 mg/dl (8.5-10.1); Creatinine Clr Calc Pharmacy 61.9 ml/min; Est GFR (African American) 83.9; Est GFR (Non-African American) 72.4; Potassium 3.2 mmol/L (3.5-5.1)
[2019-03-02] MEDS ORDERED: POTASSIUM CHLORIDE 20 MEQ TABCR PO STA (07:38)
[2019-03-02] MEDS ORDERED: SODIUM CHLORIDE 0.45 % 1,000 ML IV SCH (07:45)
[2019-03-02] MEDS: FAMOTIDINE 20 MG in SYRINGE 3 ML IV SCH ×2 (07:53→20:25)
[2019-03-02] MEDS: MULTIVITAMIN TAB PO SCH (07:54)
[2019-03-02] MEDS: SUCRALFATE 1 GM/10 ML UDC PO SCH ×4 (07:54→20:02)
[2019-03-02] MEDS: ENOXAPARIN INJ 40 MG/0.4 ML SYR SQ SCH (07:54)
[2019-03-02] MEDS: metroNIDAZOLE 500 MG/100 ML BAG IV SCH ×3 (07:54→23:38)
[2019-03-02] MEDS: PANTOprazole 40 MG TAB PO SCH (07:54)
--- NOTE | 2019-03-02 18:52 | Hospitalist Progress Note ---
Date of Service March 02, 2019 Assessment & Plan (1) Enteritis: Present on admission with abdominal pain associated with diarrhea and Nausea H/o severe gastroparesis, chronic diarrhea Xray abdomen showed small bowel wall thickening raises concern for enteritis, possibly infectious or inflammatory. Received Emend in ED that helped a little Gastro on board Carafate added this morning due to burning pain from her acid reflux case discussed with GI that recommended to continue Carafate On Full liquid diet and advanced as tolerated Continue Rocephin and Flagyl Continue monitor (2) Nausea: (3) Gastroparesis: History of multiple admissions for intractable nausea, gastroparesis Continue IV Reglan Q6H PRN Gentle hydration Diet advanced as tolerated Continue carafate Monitor electrolytes (4) GERD (gastroesophageal reflux disease): Continue PPI and H2 lauren (5) Electrolyte imbalance: K 3.2 and Na 148 IVF changed to half NS K replaced Monitor BMP (6) Frequent PVCs: Asymptomatic EKG with sinus bradycardia with PACs, PVCs (baseline) Continue digoxin (7) Hypothyroidism: Continue Levothyroxine (8) Anemia, iron deficiency: Hgb of 9.2 today Stable (9) Anxiety: Continue Lexapro, Klonopin PRN DVT Ppx: SQ lovenox Code status: FULL PCP: Abdon Dispo: Discharge once medically stable Subjective Pt was seen and examined Lying in bed with no distress Pt said that she burning pain in the mid sternum are from her acid reflux She said that she continues to have a lot of dry hives Denies any chest pain, palpitation, dizziness and SOB Physical Exam Physical Exam: General- No acute distress Head- atraumatic Eyes- PERRL, EOMI, ENT- oropharynx clear Neck- supple, no JVD Lungs- clear to auscultation Heart- bradycardia, no murmur Abdomen- normal bowel sounds, soft, +tender Extremities- no calf tenderness Neuro- alert, oriented x 3; PERRL, EOMI; no facial palsy; no dysarthria Skin- warm & dry Results & Data Vital Signs (Past 12 Hours) Vital Signs Temp Pulse Resp BP Pulse Ox 03/02/19 15:26 36.7 C 45 L 18 139/102 H 97 03/02/19 11:42 36.9 C 44 L 20 138/87 98 03/02/19 07:33 36.6 C 58 L 18 133/87 98 (1) Hypothyroidism Hypothyroidism type: acquired Qualified Code(s): E03.9 - Hypothyroidism, unspecified (2) GERD (gastroesophageal reflux disease) Esophagitis presence: with esophagitis Qualified Code(s): K21.0 - Gastro- esophageal reflux disease with esophagitis
[2019-03-02] MEDS: DIGOXIN 0.125 MG TAB PO SCH (20:50)
[2019-03-02] MEDS: ESCITALOPRAM OXALATE 20 MG TAB PO SCH (20:54)
[2019-03-02] MEDS: ACETAMINOPHEN 325 MG TAB PO PRN (23:05)
[2019-03-02] MEDS: cefTRIAXone SODIUM 1,000 MG in DEXTROSE 5% 50 ML IV SCH (23:06)
[2019-03-03] MEDS ORDERED: POTASSIUM CHLORIDE 20 MEQ TABCR PO STA ×2 (01:55→07:37)
[2019-03-03 02:32] LABS: Basophils # (auto) 0.01 K/uL (0-0.2); Basophils % (auto) 0.2 %; Eosinophils # (auto) 0.25 K/uL (0-0.5); Eosinophils % (auto) 3.8 %; Hematocrit (blood only) 33.6 % (37-47); Hemoglobin 10.7 g/dL (12.0-16.0); Immature Granulocytes # (auto) 0.01 K/uL (0.00-0.02); Immature Granulocytes % (auto) 0.2 %; Lymphocytes # (auto) 2.81 K/uL (1.2-3.4); Mean Corpuscular Hgb Conc 31.8 g/dL (32-36); Mean Platelet Volume 9.4 fL (7.4-10.4); Monocytes # (auto) 0.68 K/uL (0.11-0.59); Monocytes % (auto) 10.4 %; Neutrophils # (auto) 2.78 K/uL (1.4-6.5); Neutrophils % (auto) 42.4 %; Platelet Count 232 K/uL (130-400); RDW Coefficient of Variation 16.8 % (11.5-14.5); Red Blood Count 4.42 M/uL (4.2-5.4); White Blood Count 6.54 K/uL (4.8-10.8)
[2019-03-03] MEDS ORDERED: FAMOTIDINE 20 MG in SYRINGE 3 ML IV SCH (02:45)
[2019-03-03 02:51] LABS: BUN Creatinine Ratio 5.1 (10-20); Creatinine Clr Calc Pharmacy 61.9 ml/min; Est GFR (African American) 83.9; Est GFR (Non-African American) 72.4; Potassium 3.3 mmol/L (3.5-5.1)
[2019-03-03] MEDS ORDERED: LACTATED RINGER'S 1,000 ML IV ONE (02:54)
[2019-03-03 03:36] LABS: T4 Free Thyroxine 1.03 ng/dl (0.8-1.6)
[2019-03-03] MEDS: LEVOTHYROXINE SODIUM 75 MCG TABLET PO SCH (05:29)
[2019-03-03] MEDS: PROMETHAZINE HCL 12.5 MG in SODIUM CHLORIDE 0.9% 50 ML IV PRN ×2 (08:46→19:30)
[2019-03-03] MEDS: MoRPHine SULFATE 2 MG/ML CARP IV PRN (08:46)
[2019-03-03] MEDS: metroNIDAZOLE 500 MG/100 ML BAG IV SCH (08:54)
[2019-03-03] MEDS: PANTOprazole 40 MG TAB PO SCH (08:56)
[2019-03-03] MEDS: SUCRALFATE 1 GM/10 ML UDC PO SCH ×4 (08:56→21:29)
[2019-03-03] MEDS: MULTIVITAMIN TAB PO SCH (08:57)
[2019-03-03] MEDS: ENOXAPARIN INJ 40 MG/0.4 ML SYR SQ SCH (08:57)
[2019-03-03] MEDS: ACETAMINOPHEN 325 MG TAB PO PRN (12:08)
[2019-03-03] MEDS: metroNIDAZOLE 500 MG TAB PO SCH ×2 (12:08→21:30)
--- NOTE | 2019-03-03 12:09 | Gastroenterology Progress Note ---
Date of Service March 03, 2019 Assessment & Plan (1) Enteritis: 58 year old female with history of IBS-D, gastroparesis admitted through the ED w/ nausea/vomiting and diarrhea. She was given a dose of Emend and has had resolution of her nausea/vomiting but has persistent diarrhea. Developed epigastric pain w/ radiation through to her back, return of GERD, regurgitation, nausea/vomiting that persisted x 24 hours. Will repeat lipase, LFTs, keep NPO aftermidnight and plan for EGD 03/04 pending labs and symptoms - Add lipase, LFTs - Stool culture - Continue Reglan as scheduled - Maintenance IV fluid - NPO after midnight for ?EGD 03/04/19 - Thank you for allowing us to participate in the care of this patient. Please call with any acute changes, questions or concerns. Please see addendum below with additional recommendation from my supervising physician. (2) Nausea: Subjective GI asked to re-evaluate. Chart reviewed. Notes she currently has a different pain than what brought her through the ED. Started yesterday. Epigastric w/ rad iation through to back. Associated w/ worsening GERD, regurgitation, nausea and vomiting. Denies black/bloody emesis. Currently eating lunch, tomatoe soup and jello. No black/bloody stools. Loose stool persist. C.diff negative. Review of Systems Constitutional: no fever and no chills Respiratory: no cough and no dyspnea Cardiovascular: no chest pain and no radiating jaw, neck or arm pain Gastrointestinal: + abdominal pain, + heartburn, + nausea and + vomiting; no coffee ground emesis, no hematemesis, no blood in stools and no melena Physical Exam Constitutional: well developed and well nourished; no acute distress Respiratory: normal respiratory effort, lungs clear to auscultation Cardiovascular: RRR, no murmur, no edema Gastrointestinal (Abdomen): Inspection/Auscultation: normal bowel sounds Percussion/Palpation: + abdomen tender and abdomen soft; no guarding, abdomen not rigid, no abdominal mass and no ascites Skin: no rashes, warm and dry Results & Data Vital Signs (Past 12 Hours) Vital Signs Temp Pulse Resp BP Pulse Ox 03/03/19 11:31 36.7 C 50 L 18 125/85 95 03/03/19 07:01 36.6 C 51 L 18 126/84 99 03/03/19 03:26 36.6 C 51 L 18 136/94 99 03/03/19 00:11 36.6 C 50 L 16 117/78 99 Laboratory Results 03/03/19 03/03/19 03/03/19 Range/Units 02:23 02:23 02:23 WBC (4.8-10.8) K/uL RBC (4.2-5.4) M/uL Hgb (12.0-16.0) g/dL Hct (37-47) % MCV (80-100) fL MCH (25-34) pg MCHC (32-36) g/dL RDW Std Deviation (36.4-46.3) fL RDW Coeff of Ana M (11.5-14.5) % Plt Count (130-400) K/uL MPV (7.4-10.4) fL Immature Gran % (Auto) % Neut % (Auto) % Lymph % (Auto) % Reagan % (Auto) % Eos % (Auto) % Baso % (Auto) % Immature Gran # (Auto) (0.00-0.02) K/uL Neut # (Auto) (1.4-6.5) K/uL Lymph # (Auto) (1.2-3.4) K/uL Reagan # (Auto) (0.11-0.59) K/uL Eos # (Auto) (0-0.5) K/uL Baso # (Auto) (0-0.2) K/uL Sodium (136-145) mmol/L Potassium (3.5-5.1) mmol/L Chloride (98-107) mmol/L Carbon Dioxide (21-32) mmol/L Anion Gap (3-11) BUN (7-18) mg/dl Creatinine (0.6-1.2) mg/dl Est Cr Clr Drug Dosing ml/min Est GFR ( Amer) Est GFR (Non-Af Amer) BUN/Creatinine Ratio (10-20) Glucose (70-99) mg/dl Calcium (8.5-10.1) mg/dl Magnesium (1.8-2.4) mg/dl Lipase Pending TSH (0.300-4.500) uIu/ml Free T4 (0.8-1.6) ng/dl Total T3 0.78 (0.60-1.81) ng/ml Digoxin 0.3 L (0.8-2.0) ng/ml 03/03/19 03/03/19 Range/Units 02:23 02:23 WBC 6.54 (4.8-10.8) K/uL RBC 4.42 (4.2-5.4) M/uL Hgb 10.7 L (12.0-16.0) g/dL Hct 33.6 L (37-47) % MCV 76.0 L (80-100) fL MCH 24.2 L (25-34) pg MCHC 31.8 L (32-36) g/dL RDW Std Deviation 47.0 H (36.4-46.3) fL RDW Coeff of Ana M 16.8 H (11.5-14.5) % Plt Count 232 (130-400) K/uL MPV 9.4 (7.4-10.4) fL Immature Gran % (Auto) 0.2 % Neut % (Auto) 42.4 % Lymph % (Auto) 43.0 % Reagan % (Auto) 10.4 % Eos % (Auto) 3.8 % Baso % (Auto) 0.2 % Immature Gran # (Auto) 0.01 (0.00-0.02) K/uL Neut # (Auto) 2.78 (1.4-6.5) K/uL Lymph # (Auto) 2.81 (1.2-3.4) K/uL Reagan # (Auto) 0.68 H (0.11-0.59) K/uL Eos # (Auto) 0.25 (0-0.5) K/uL Baso # (Auto) 0.01 (0-0.2) K/uL Sodium 143 (136-145) mmol/L Potassium 3.3 L (3.5-5.1) mmol/L Chloride 109 H (98-107) mmol/L Carbon Dioxide 28 (21-32) mmol/L Anion Gap 6.0 (3-11) BUN 4 L (7-18) mg/dl Creatinine 0.87 (0.6-1.2) mg/dl Est Cr Clr Drug Dosing 61.9 ml/min Est GFR ( Amer) 83.9 Est GFR (Non-Af Amer) 72.4 BUN/Creatinine Ratio 5.1 L (10-20) Glucose 82 (70-99) mg/dl Calcium 8.0 L (8.5-10.1) mg/dl Magnesium 2.0 (1.8-2.4) mg/dl Lipase TSH 5.170 H (0.300-4.500) uIu/ml Free T4 1.03 (0.8-1.6) ng/dl Total T3 (0.60-1.81) ng/ml Digoxin (0.8-2.0) ng/ml
[2019-03-03 12:55] LABS: Alanine Aminotransferase 44 U/L (12-78); Albumin Level 3.1 gm/dl (3.4-5.0); Alkaline Phosphatase 101 U/L (45-117); Aspartate Aminotransferase 43 U/L (15-37); Bilirubin Direct < 0.1 mg/dl (0-0.2); Bilirubin,Total 0.2 mg/dl (0.2-1); Total Protein 6.4 gm/dl (6.4-8.2)
--- NOTE | 2019-03-03 13:01 | Hospitalist Progress Note ---
Date of Service March 03, 2019 Assessment & Plan (1) Enteritis: Present on admission with abdominal pain associated with diarrhea and Nausea H/o severe gastroparesis, chronic diarrhea Xray abdomen showed small bowel wall thickening raises concern for enteritis, possibly infectious or inflammatory. Received Emend in ED that helped a little Gastro on board Continue carafate for the acid reflux burning pain On Full liquid diet and advanced as tolerated Continue Rocephin and Flagyl Continue pain control Continue monitor (2) Nausea: (3) Gastroparesis: History of multiple admissions for intractable nausea, gastroparesis Continue IV Reglan Q6H PRN Gentle hydration Diet advanced as tolerated Continue carafate Gastro on board NPO after midnight for possible EGD Monitor electrolytes (4) GERD (gastroesophageal reflux disease): Continue PPI and H2 lauren (5) Electrolyte imbalance: K 3.3 and Na 143 IVF changed to Lactate ringer K replaced Monitor BMP (6) Frequent PVCs: Asymptomatic EKG with sinus bradycardia with PACs, PVCs (baseline) Continue digoxin (7) Hypothyroidism: Continue Levothyroxine (8) Anemia, iron deficiency: Hgb of 9.2 today Stable (9) Anxiety: Continue Lexapro, Klonopin PRN DVT Ppx: SQ lovenox Code status: FULL PCP: Abdon Dispo: Discharge once medically stable Subjective Pt was seen and examined Lying in bed continue to have abdominal pain that radiating to her back now Pt said that she continues to have the burning epigastric pain She said that the carafate does not seem to help much She said that she continues to have diarrhea She said that she had 4 episodes of diarrhea overnight She said that continue to have dry hives and nausea denies any chest pain, palpitation, dizziness and SOB Physical Exam Physical Exam: General- No acute distress Head- atraumatic Eyes- PERRL, EOMI, ENT- oropharynx clear Neck- supple, no JVD Lungs- clear to auscultation Heart- bradycardia, no murmur Abdomen- normal bowel sounds, soft, +tender Extremities- no calf tenderness Neuro- alert, oriented x 3; PERRL, EOMI; no facial palsy; no dysarthria Skin- warm & dry Results & Data Vital Signs (Past 12 Hours) Vital Signs Temp Pulse Resp BP Pulse Ox 03/03/19 11:31 36.7 C 50 L 18 125/85 95 03/03/19 07:01 36.6 C 51 L 18 126/84 99 03/03/19 03:26 36.6 C 51 L 18 136/94 99 (1) GERD (gastroesophageal reflux disease) Esophagitis presence: with esophagitis Qualified Code(s): K21.0 - Gastro- esophageal reflux disease with esophagitis (2) Hypothyroidism Hypothyroidism type: acquired Qualified Code(s): E03.9 - Hypothyroidism, unspecified
--- NOTE | 2019-03-03 14:17 | XRay Report ---
KUB HISTORY: Acute generalized abdominal pain worsening abdominal pain COMPARISON: Acute abdominal series radiographs 02/27/2019. FINDINGS: The bowel gas pattern is non-obstructive. Mild right hemidiaphragmatic elevation redemonstr ated with chronic blunting of the right costophrenic angle. There is no organomegaly. Multiple pelvic basin calcifications are suggestive of probable phleboliths. Postoperative changes of the left upper quadrant abdomen with radiodense focus posterior to the distal esophagus redemonstrated. No renal ca lculi. No ureteral calculi. No pneumoperitoneum or pneumatosis. No fracture. IMPRESSION: Nonobstructive bowel gas pattern. Electronically signed by: Chaz Reis M.D. 03/03/2019 2:16 PM
[2019-03-03] MEDS: ALUMINUM/MAGNESIUM SUSP 30 ML UDC PO PRN (15:57)
[2019-03-03] MEDS: DIGOXIN 0.125 MG TAB PO SCH (21:29)
[2019-03-03] MEDS: ESCITALOPRAM OXALATE 20 MG TAB PO SCH (21:30)
[2019-03-03] MEDS: FAMOTIDINE 20 MG TAB PO SCH (21:31)
[2019-03-03] MEDS: cefTRIAXone SODIUM 1,000 MG in DEXTROSE 5% 50 ML IV SCH (23:18)
[2019-03-04] MEDS: PROMETHAZINE HCL 12.5 MG in SODIUM CHLORIDE 0.9% 50 ML IV PRN (01:57)
[2019-03-04] MEDS: MoRPHine SULFATE 2 MG/ML CARP IV PRN (04:07)
[2019-03-04] MEDS: LEVOTHYROXINE SODIUM 75 MCG TABLET PO SCH (05:32)
[2019-03-04] MEDS: PANTOprazole 40 MG TAB PO SCH (08:06)
[2019-03-04] MEDS: MULTIVITAMIN TAB PO SCH (08:06)
[2019-03-04] MEDS: ENOXAPARIN INJ 40 MG/0.4 ML SYR SQ SCH (08:06)
[2019-03-04] MEDS: FAMOTIDINE 20 MG TAB PO SCH (08:06)
[2019-03-04] MEDS: metroNIDAZOLE 500 MG TAB PO SCH ×2 (08:06→13:57)
[2019-03-04] MEDS: SUCRALFATE 1 GM/10 ML UDC PO SCH ×2 (08:17→13:57)
--- NOTE | 2019-03-04 08:20 | Gastroenterology Progress Note ---
Date of Service March 04, 2019 Assessment & Plan (1) Enteritis: 58 year old female with history of IBS-D, gastroparesis admitted through the ED w/ nausea/vomiting and diarrhea. She was given a dose of Emend and has had resolution of her nausea/vomiting but has persistent diarrhea. Developed e pigastric pain w/ radiation through to her back, return of GERD, regurgitation, nausea/vomiting that persisted x 24 hours. Will repeat lipase, LFTs, keep NPO aftermidnight and plan for EGD 03/04 pending labs and symptoms - NPO - EGD - Please continue medications as current - Pending results of EGD, consider additional Emend - Thank you for allowing us to participate in the care of this patient. Please call with any acute changes, questions or concerns. Please see addendum below with additional recommendation from my supervising physician. Attg add: I interviewed and examined pt, reviewed chart and labs. Pt with continued pain, nausea. EGD today. (2) Nausea: Subjective Pt was seen and evaluated, chart reviewed. No acute events noted. NPO for EGD this AM. Endorses mild epigastric pain, nausea but no vomiting. No black/bloody stools. No fever, chills, CP, SOB. Review of Systems Constitutional: no fever, no chills, no fatigue and no weakness Respiratory: no cough, no dyspnea, no pain on inspiration and no wheezing Cardiovascular: no chest pain, no radiating jaw, neck or arm pain, no palpitations and no edema Gastrointestinal: + heartburn and + nausea; no abdominal pain, no vomiting, no coffee ground emesis, no hematemesis, no blood in stools and no melena Physical Exam Constitutional: WD/WN, vitals as above no acute distress and not ill appearing Neck: trachea midline Respiratory: normal respiratory effort; no respiratory distress Auscultation: no crackles, no rhonchi and no wheezes Cardiovascular: Rate/Rhythm: regular rate and regular rhythm Heart Sounds: no click, no gallop, no murmur and no cardiac rub Gastrointestinal (Abdomen): normal bowel sounds, soft, nontender, no hepatosplenomegaly Percussion/Palpation: no guarding, abdomen not rigid, no abdominal mass and no ascites Skin: no rashes, warm and dry Results & Data Vital Signs (Past 12 Hours) Vital Signs Temp Pulse Pulse Resp BP Pulse Ox 03/04/19 07:47 36.7 C 56 L 18 122/84 97 03/04/19 07:14 52 L 03/04/19 04:00 36.6 C 54 L 16 117/79 97 03/04/19 00:00 36.7 C 57 L 56 L 18 125/86 98 03/03/19 21:29 51 L
--- NOTE | 2019-03-04 10:29 | Anesthesiology Consultation ---
Date of Service March 04, 2019 Assessment & Plan (1) Encounter for pre-operative examination: Chart Review Chart Review: Acceptable Risk for Surgery History Surgery Operation Date: 03/04/19 09:15 Proposed Procedures p Esophagogastroduodenoscopy Dr David Ridley Height/Weight Height: 5 ft 5 in Weight: 64.5 kg Allergies Allergy/AdvReac Type Severity Reaction Status Date / Time adhesive Allergy Mild SKIN Verified 02/27/19 19:56 IRRITATION amoxicillin AdvReac Intermediate yeast Verified 02/27/19 19:56 infection NSAIDS (Non-Steroidal AdvReac Mild indegestion Verified 02/27/19 19:56 Anti-Inflamma rofecoxib AdvReac Mild indigestion Verified 02/27/19 19:56 scopolamine AdvReac Mild rash from Verified 02/27/19 19:56 patch Medications Home Medications Medication Instructions Recorded Confirmed Last Taken levothyroxine 75 mcg PO DAILY #0 10/31/13 02/27/19 02/25/19 clonazepam 0.5 mg PO TID PRN #0 06/22/14 02/27/19 05/26/18 07:00 famotidine [Pepcid] 40 mg PO BID #0 tab 04/15/17 02/27/19 02/25/19 escitalopram oxalate [Lexapro] 20 mg PO HS #0 tab 08/08/17 02/27/19 02/25/19 metoclopramide HCl 10 mg PO TIDM #0 tab 08/08/17 02/27/19 02/25/19 2 DOSES TODAY lansoprazole 30 mg PO DAILY 05/26/18 02/27/19 02/25/19 multivitamin 1 tab PO DAILY 09/09/18 02/27/19 02/25/19 ondansetron HCl [Zofran] 8 mg PO Q6H PRN 09/09/18 02/27/19 Unknown digoxin 125 mcg PO HS 02/27/19 02/27/19 Unknown Active Medications Generic Name Dose Route Start Last Admin Trade Name Freq PRN Reason Stop Dose Admin Acetaminophen 650 mg 03/02/19 22:58 03/03/19 12:08 Tylenol PO 04/01/19 22:57 650 mg Q6H PRN Administration Fever Al Hydrox/Mg Hydrox/Simethicone 30 ml 02/27/19 23:42 03/03/19 15:57 Maalox PO 03/29/19 23:41 30 ml Q6H PRN Administration Heartburn Clonazepam 0.5 mg 02/27/19 23:08 03/03/19 12:08 Klonopin PO 03/29/19 23:07 0.5 mg TID PRN Administration Panic Attack(S) Digoxin 0.125 mg 02/28/19 21:00 03/03/19 21:29 Lanoxin PO 03/30/19 20:59 Not Given HS RUSSELL Enoxaparin Sodium 40 mg 02/28/19 09:30 03/04/19 08:06 Lovenox SQ 03/30/19 09:29 40 mg DAILY RUSSELL Administration Escitalopram Oxalate 20 mg 02/28/19 21:00 03/03/19 21:30 Lexapro PO 03/30/19 20:59 20 mg HS RUSSELL Administration Famotidine 20 mg 03/03/19 21:00 03/04/19 08:06 Pepcid PO 04/02/19 20:59 20 mg BID RUSSELL Administration Heparin Sodium (Porcine) 5 ml 02/28/19 22:47 03/04/19 06:29 Heparin Sod 100 Unit/Ml Flush FLUSH 03/30/19 22:59 5 ml PRN PRN Administration Flush Ceftriaxone Sodium 1,000 mg/ 50 mls @ 100 mls/hr 02/27/19 23:30 03/03/19 23:54 Dextrose IV 03/09/19 23:29 Infused Q24H RUSSELL Infusion Protocol Promethazine HCl 12.5 mg/ 50.5 mls @ 202 mls/hr 02/28/19 03:28 03/04/19 02:20 Sodium Chloride IV 03/30/19 03:27 Infused Q6H PRN Infusion Nausea And Vomiting Levothyroxine Sodium 75 mcg 02/28/19 06:30 03/04/19 05:32 Synthroid PO 03/30/19 06:29 75 mcg DAILYBB RUSSELL Administration Metoclopramide HCl 10 mg 02/27/19 23:08 03/02/19 15:46 Reglan IV 03/29/19 23:07 10 mg Q6H PRN Administration Nausea Metronidazole 500 mg 03/03/19 14:00 03/04/19 08:06 Flagyl PO 03/10/19 00:00 500 mg TID RUSSELL Administration Morphine Sulfate 2 mg 02/27/19 23:08 03/04/19 04:07 Morphine Sulfate IV 03/13/19 23:07 2 mg Q3H PRN Administration Pain Multivitamins 1 tab 02/28/19 09:00 03/04/19 08:06 Multivitamin Tab PO 03/30/19 08:59 1 tab DAILY RUSSELL Administration Pantoprazole Sodium 40 mg 03/01/19 09:00 03/04/19 08:06 Protonix PO 03/31/19 08:59 40 mg DAILY RUSSELL Administration Sucralfate 1 gm 03/01/19 17:15 03/04/19 08:17 Carafate PO 03/31/19 17:14 Not Given ACHS RUSSELL NPO Date Last Intake of Fluids: 03/03/19 Date Last Intake of Solids: 03/03/19 Past Medical History Medical History HTN (hypertension) (Chronic) Gastroparesis (Chronic) H/O irritable bowel syndrome (Chronic) Pernicious anemia (Chronic) Diverticulosis (Chronic) GERD (gastroesophageal reflux disease) (Chronic) Anxiety (Chronic) Depression (Chronic) COPD (chronic obstructive pulmonary disease) (Chronic) Frequent PVCs (Chronic) Asthma (Chronic) Premature atrial contractions (Chronic) Tobacco abuse (Chronic) Anemia, iron deficiency (Chronic) MRSA bacteremia (Resolved) Neuropathy (Chronic) Hypothyroidism (Chronic) Mitral regurgitation (Chronic) "moderate per echo 09/21/15" Pemphigus vulgaris Past Family History Family History Mother DM type 2 (diabetes mellitus, type 2) Coronary heart disease Past Surgical History Surgical History History of pyloroplasty (Resolved) laparoscopic pylor[place] Dr Zapata, [facility] [place] of laparoscopic partial gastrectomy (Resolved) 03/2012 - Dr Dove at [facility] [place] Hx of tonsillectomy (Resolved) History of total hysterectomy (Resolved) History of bladder surgery Hx of cholecystectomy S/P hysterectomy S/P laparoscopic sleeve gastrectomy S/P partial gastrectomy S/P repair of paraesophageal hernia "resulted in volvulus, required abdominal exploration" S/P tonsillectomy and adenoidectomy Social History Smoking Status: Current every day smoker tobacco type: cigarettes Smoking cigarettes per day: 1/2 pack Do You Dip or Chew Tobacco: No Hx Alcohol Use: No Alcohol type: beer alcohol intake frequency: a few times a month Hx Substance Use: No substance use type: does not use Physical Exam Vital Signs Last Vital Signs Temp 36.8 C 03/04/19 10:23 Pulse 53 L 03/04/19 10:23 Resp 20 03/04/19 10:23 BP 161/93 H 03/04/19 10:23 Pulse Ox 98 03/04/19 10:23 Testing Laboratory Results 03/03/19 02:23 03/03/19 02:23 03/01/19 17:17 Shiga Toxin Test - Preliminary Stool Stool Culture - Preliminary No Salmonella isolated to date, No Shigella isolated to date, No Campylobacter jejuni isolated to date.
[2019-03-04] MEDS ORDERED: LIDOCAINE HCL 2% 2 ML VIAL/AMP(20MG/ML) INFIL ONE (10:39)
[2019-03-04] MEDS ORDERED: fentaNYL citrate 100 MCG/2 ML VIAL ONE (10:39)
[2019-03-04] MEDS ORDERED: PROPOFOL IV EMULSION 10 MG/ML 20 ML VIAL IV ONE (10:39)
[2019-03-04] MEDS ORDERED: ONDANSETRON INJ 2 MG/ML 2 ML VIAL ONE (10:39)
--- NOTE | 2019-03-04 11:42 | GI REPORT ---
Patient Name: Anne Delarosa Procedure Date: 03/04/2019 11:05 AM Date of : 1960 Admit Type: Inpatient Age: 58 Gender: Female Attending MD: Silvia Ridley MD Procedure: Upper GI endoscopy Providers: Silvia Ridley MD Referring MD: Theodora Mohr Indications: Abdominal pain Medicines: See the Anesthesia note for documentation of the administered medications Complications: No immediate complications. Estimated Blood Loss: Estimated blood loss: none. Procedure: Pre-Anesthesia Assessment: - ASA Grade Assessment: III - A patient with severe systemic disease. After obtaining informed consent, the endoscope was passed under direct vision. Throughout the procedure, the patient's blood pressure, pulse, and oxygen saturations were monitored continuously. The scope was introduced through the mouth, and advanced to the third part of duodenum. The upper GI endoscopy was accomplished without difficulty. The patient tolerated the procedure well. Findings: LA Grade A (one or more mucosal breaks less than 5 mm, not extending between tops of 2 mucosal folds) esophagitis with no bleeding was found. The exam of the esophagus was otherwise normal. There was evidence of prior gastric surgery. There was a staple line, with mild surrounding edema, in the proximal stomach. The sharp end of one of the logan was protruding through the stomach mucosa; this staple was removed. There was a small amount of retained fluid in the stomach that was aspirated. There was a large diverticulum in the second portion of the duodenum; the duodenum was otherwise normal. Impression: - LA Grade A reflux esophagitis. - Staple line in proximal stomach; staple removed. Recommendation: - Discharge patient to home. Silvia Ridley M.D. Silvia Ridley MD 03/04/2019 11:42:21 AM This report has been signed electronically. Note Initiated On: 03/04/2019 11:05 AM Number of Addenda: 0 I attest to the content of the Intraoperative Record and orders documented therein, exceptions below {[id number]}
--- NOTE | 2019-03-04 12:12 | Anesthesiology Progress Note ---
Date of Service March 04, 2019 Anesthesia Post Procedure Vital Signs Vital Signs: Temp Pulse Pulse Resp BP Pulse Ox 03/04/19 12:05 53 L 20 167/104 H 99 03/04/19 11:50 49 L 20 156/101 H 99 03/04/19 11:35 54 L 20 135/93 99 03/04/19 10:23 36.8 C 53 L 20 161/93 H 98 03/04/19 07:47 36.7 C 56 L 18 122/84 97 03/04/19 07:14 52 L 03/04/19 04:00 36.6 C 54 L 16 117/79 97 03/04/19 00:00 36.7 C 57 L 56 L 18 125/86 98 03/03/19 21:29 51 L 03/03/19 18:56 36.9 C 61 22 115/83 98 03/03/19 15:11 36.8 C 51 L 18 132/89 95 03/03/19 15:10 51 L Pain Intensity Abdomen: Pain Intensity: 6 Transfer of Care Handoff Completed per policy Notes Mental Status: alert / awake / arousable Patient Amnestic to Procedure: Yes Nausea / Vomiting: adequately controlled Pain: adequately controlled Airway Patency, RR, SpO2: stable & adequate BP & HR: stable & adequate Hydration State: stable & adequate Anesthetic Complications: no major complications apparent
--- NOTE | 2019-03-04 14:59 | Hospitalist Progress Note ---
Date of Service March 04, 2019 Assessment & Plan (1) Enteritis: Present on admission with abdominal pain associated with diarrhea and Nausea H/o severe gastroparesis, chronic diarrhea Xray abdomen showed small bowel wall thickening raises concern for enteritis, possibly infectious or inflammatory. Received Emend in ED Gastro on board Recommend Carafate for the acid reflux burning pain Status post EGD today: EGD: 03/04/2019 LA grade a esophagitis with no bleeding was found The exam of esophagus otherwise normal There is evidence of prior gastric surgery. There was a staple line, with mild surrounding edema, in the proximal stomach. The sharp end of the 1 of the staple was protruding through the stomach mucosa, staple was removed small amount of retained fluid in the stomach that was aspirated There was a large diverticulum in the second portion of the duodenum: The duodenum otherwise normal. Discussed EGD findings with GI team, Stable to be advance diet, no change in medication indicated Patient will be discharged home if able to tolerate diet (2) Nausea: Symptom has completely resolved Diet advanced after EGD, tolerating well Stable to be discharged home (3) Gastroparesis: History of multiple admissions for intractable nausea, gastroparesis Symptom has completely resolved, diet advanced, tolerating well Continue carafate Stable to be discharged home today (4) GERD (gastroesophageal reflux disease): Continue PPI and H2 lauren (5) Electrolyte imbalance: Corrected (6) Frequent PVCs: Asymptomatic EKG with sinus bradycardia with PACs, PVCs (baseline) Continue digoxin (7) Hypothyroidism: Continue Levothyroxine (8) Anemia, iron deficiency: Hemoglobin stable (9) Anxiety: Continue Lexapro, Klonopin PRN DVT Ppx: SQ lovenox Code status: FULL PCP: Abdon Dispo: Discharged home today Subjective Status post EGD earlier today, Abdominal pain has completely resolved postprocedure Diet advanced tolerating well No nausea vomiting, no discomfort Eager to be discharged home Physical Exam Constitutional: WD/WN, vitals as above no acute distress Eyes: PERRL, conjunctivae normal, anicteric sclerae ENMT: external ear and nose normal, oropharynx normal Neck: trachea midline, no thyromegaly Respiratory: normal respiratory effort, lungs clear to auscultation Cardiovascular: RRR, no murmur, no edema Gastrointestinal (Abdomen): normal bowel sounds, soft, nontender, no hepatosplenomegaly Musculoskeletal: no cyanosis or clubbing, extremities motor strength 5/5 Skin: no rashes, warm and dry Neurologic: PERRL, EOMI, accommodation nl, no face palsy, no dysarthria Psychiatric: A+Ox3, euthymic affect Results & Data Vital Signs (Past 12 Hours) Vital Signs Temp Pulse Pulse Resp BP Pulse Ox 03/04/19 13:06 36.8 C 54 L 19 135/95 100 03/04/19 12:05 53 L 20 167/104 H 99 03/04/19 11:50 49 L 20 156/101 H 99 03/04/19 11:35 54 L 20 135/93 99 03/04/19 10:23 36.8 C 53 L 20 161/93 H 98 03/04/19 07:47 36.7 C 56 L 18 122/84 97 03/04/19 07:14 52 L 03/04/19 04:00 36.6 C 54 L 16 117/79 97 (1) Hypothyroidism Hypothyroidism type: acquired Qualified Code(s): E03.9 - Hypothyroidism, unspecified (2) GERD (gastroesophageal reflux disease) Esophagitis presence: with esophagitis Qualified Code(s): K21.0 - Gastro- esophageal reflux disease with esophagitis
--- NOTE | 2019-03-04 18:41 | Discharge Summary ---
Date of Service March 04, 2019 Admission HPI Per Admitting Provider This is a 58 yo F with a PMG of gastroparesis, IBS, HTN, GERD, frequent PVCs, anemia and other medical problems listed below who presents with abdominal pain x 3 days. Patient feels like she is having a "gastroparesis attack". Endorsing epigastric pain that is constant with radiation to her back. Has had decreased appetite and dry heaves but denies any vomiting. Patient has chronic diarrhea and endorses 6-7 episodes daily, but is only had 1-2 episodes the past 2 days. Denies any fever or chills. Was evaluated in the ED last night with resolution of symptoms after being given Reglan, IV Tylenol and IV fluids. Pain returned once patient was at home, so she came back to ED today for further evaluation. Currently endorsing abdominal pain and nausea. Denies lightheadedness, headache, chest pain, palpitations, shortness of breath, vomiting, dysuria, diarrhea, melena or hematochezia. Patient is hemodynamically stable and afebrile. No leukocytosis. Hemoglobin is at baseline. Chest/abdomen x-ray with no acute cardiopulmonary disease. Small bowel wall thickening raises concern for enteritis, possibly infectious or inflammatory. ED physician discussed with [facility] GI service and gave the patient 150mg of Emend. Follows with Dr. Ridley in GI clinic. Principal Diagnosis Abdominal pain/gastroparesis Discharge Exam Constitutional WD/WN, vitals as above no acute distress Eyes PERRL, conjunctivae normal, anicteric sclerae ENMT external ear and nose normal, oropharynx normal Neck trachea midline, no thyromegaly Respiratory normal respiratory effort, lungs clear to auscultation Cardiovascular RRR, no murmur, no edema Gastrointestinal (Abdomen) normal bowel sounds, soft, nontender, no hepatosplenomegaly Musculoskeletal no cyanosis or clubbing, extremities motor strength 5/5 Skin no rashes, warm and dry Neurologic PERRL, EOMI, accommodation nl, no face palsy, no dysarthria Psychiatric A+Ox3, euthymic affect Discharge Data Allergies Allergy/AdvReac Type Severity Reaction Status Date / Time adhesive Allergy Mild SKIN Verified 02/27/19 19:56 IRRITATION amoxicillin AdvReac Intermediate yeast Verified 02/27/19 19:56 infection NSAIDS (Non-Steroidal AdvReac Mild indegestion Verified 02/27/19 19:56 Anti-Inflamma rofecoxib AdvReac Mild indigestion Verified 02/27/19 19:56 scopolamine AdvReac Mild rash from Verified 02/27/19 19:56 patch Consultations 02/27/19 21:39 ED Decision to Admit Stat 02/28/19 08:00 Consult Gastroenterology Routine Procedures Performed Operation Date: 03/04/19 09:15 Actual Procedures p Esophagogastroduodenoscopy - [facility] Course (1) Enteritis: Present on admission with abdominal pain associated with diarrhea and Nausea H/o severe gastroparesis, chronic diarrhea Xray abdomen showed small bowel wall thickening raises concern for enteritis, possibly infectious or inflammatory. Received Emend in ED Gastro on board Recommend Carafate for the acid reflux burning pain Status post EGD today: EGD: 03/04/2019 LA grade a esophagitis with no bleeding was found The exam of esophagus otherwise normal There is evidence of prior gastric surgery. There was a staple line, with mild surrounding edema, in the proximal stomach. The sharp end of the 1 of the staple was protruding through the stomach mucosa, staple was removed small amount of retained fluid in the stomach that was aspirated There was a large diverticulum in the second portion of the duodenum: The duodenum otherwise normal. Discussed EGD findings with GI team, Stable to be advance diet, no change in medication indicated Patient will be discharged home if able to tolerate diet (2) Nausea: Symptom has completely resolved Diet advanced after EGD, tolerating well Stable to be discharged home (3) Gastroparesis: History of multiple admissions for intractable nausea, gastroparesis Symptom has completely resolved, diet advanced, tolerating well Continue carafate Stable to be discharged home today (4) GERD (gastroesophageal reflux disease): Continue PPI and H2 lauren (5) Electrolyte imbalance: Corrected (6) Frequent PVCs: Asymptomatic EKG with sinus bradycardia with PACs, PVCs (baseline) Continue digoxin (7) Hypothyroidism: Continue Levothyroxine (8) Anemia, iron deficiency: Hemoglobin stable (9) Anxiety: Continue Lexapro, Klonopin PRN DVT Ppx: SQ lovenox Code status: FULL PCP: Abdon Dispo: Discharged home today Total Time Total Time Spent Total Time Spent (In Minutes): Approximate 40 minutes Total Time Includes: Examination of the Patient, Discharge Planning, Medication Reconciliation and Communication With Other Providers Discharge Plan Discharge Items Patient Disposition: Home - Self-Care Reason For Visit: GASTROPARESIS,ENTERITIS Discharge Diagnosis: Abdominal pain Discharge Goals: Decrease discomfort Activity: Resume your previous activity Non-emergency contact: Primary Care Provider Call non-emergency contact if: you have any medication questions Follow-up/Referrals: Jaleel Coppola MD [Primary Care Provider] - 03/10/19 12:40 pm Diet: Regular Addtl Provider Instructions: Hospital follow-up with Dr. Coppola 03/10/2019 at 12:40 PM Prescriptions: Continued levothyroxine 75 mcg Tablet 75 mcg PO DAILY Qty: 0 RF: 0 clonazepam 0.5 mg Tablet 0.5 mg PO TID PRN (Reason: Panic Attack(S)) Qty: 0 RF: 0 famotidine [Pepcid] 40 mg Tablet 40 mg PO BID Qty: 0 RF: 0 metoclopramide HCl 10 mg Tablet 10 mg PO TIDM Qty: 0 RF: 0 escitalopram oxalate [Lexapro] 20 mg Tablet 20 mg PO HS Qty: 0 RF: 0 lansoprazole 30 mg Capsule,Delayed Release(Dr/Ec) 30 mg PO DAILY RF: 0 multivitamin Tablet 1 tab PO DAILY RF: 0 ondansetron HCl [Zofran] 8 mg Tablet 8 mg PO Q6H PRN (Reason: Nausea) RF: 0 digoxin 125 mcg tablet 125 mcg PO HS RF: 0 Stand-Alone Forms: [facility] Discharge Orders: Discharge Order (Routine); Ordered 03/04/19 Ordered By: Theodora Mohr Admission Data Admit Date/Time: 03/03/19 07:33 Attending Provider: Theodora Mohr Admit Provider: Leonidas Sumner Primary Care Provider: Jaleel Coppola Other Providers: Amanda Nunn ; Genaro Bradford ; Nena Aguilar Service: Telemetry Medical Other Interventions: Discharge Summary Assessment (RN) Last Done: 03/04/19 15:54 DC Date/Time DO NOT enter until pt leaves facility: 03/04/19 16:00
== END 2019-03-04 16:00 | disposition home or self-care (01) | DRG 328 ==
LOC: 2N 19:19 → ED 19:19 → 2N 22:36 → SUATTDRO 03-03 07:33

== ENCOUNTER 2019-09-30 08:09 | Observation (INO) ==
[2019-09-30] MEDS ORDERED: PROCHLORPERAZINE 2 ML IV ONE (08:30)
[2019-09-30] MEDS ORDERED: SODIUM CHLORIDE 0.9% 1000ML 1,000 ML IV ONE (08:30)
[2019-09-30] MEDS: HYDROmorphone INJ 0.5 MG/0.5 ML SYR IV PRN ×3 (08:58→10:03)
[2019-09-30 09:09] LABS: Basophils # (auto) 0.02 K/uL (0-0.2); Basophils % (auto) 0.3 %; Eosinophils # (auto) 0.12 K/uL (0-0.5); Eosinophils % (auto) 1.9 %; Hemoglobin 10.6 g/dL (12.0-16.0); Immature Granulocytes # (auto) 0.01 K/uL (0.00-0.02); Immature Granulocytes % (auto) 0.2 %; Lymphocytes # (auto) 1.42 K/uL (1.2-3.4); Mean Corpuscular Hemoglobin 26.4 pg (25-34); Mean Corpuscular Hgb Conc 32.1 g/dL (32-36); Mean Corpuscular Volume 82.1 fL (80-100); Mean Platelet Volume 9.3 fL (7.4-10.4); Monocytes # (auto) 0.45 K/uL (0.11-0.59); Monocytes % (auto) 7.3 %; Neutrophils # (auto) 4.16 K/uL (1.4-6.5); Neutrophils % (auto) 67.3 %; Platelet Count 215 K/uL (130-400); RDW Coefficient of Variation 18.1 % (11.5-14.5); RDW Standard Deviation 54.5 fL (36.4-46.3); Red Blood Count 4.02 M/uL (4.2-5.4); White Blood Count 6.18 K/uL (4.8-10.8)
[2019-09-30 09:25] LABS: Albumin Level 3.2 gm/dl (3.4-5.0); BUN Creatinine Ratio 9.6 (10-20); Calcium 8.8 mg/dl (8.5-10.1); Creatinine Clr Calc Pharmacy 61.5 ml/min; Est GFR (African American) 75.9; Est GFR (Non-African American) 65.5; Potassium 3.5 mmol/L (3.5-5.1)
[2019-09-30] MEDS ORDERED: PROMETHAZINE HCL INJ 25 MG/ML 1 ML VIAL IM STA (09:27)
[2019-09-30 09:28] LABS: Bilirubin,Total 0.4 mg/dl (0.2-1); Globulin 3.3 gm/dl (2.5-4.0); Total Protein 6.5 gm/dl (6.4-8.2)
--- NOTE | 2019-09-30 09:35 | Emergency Department Note ---
History of Present Illness General Chief complaint: Vomiting Stated complaint: VOMITING, GASTRO PARESIS Time Seen by Provider: 09/30/19 08:27 History of Present Illness Maximum Pain Intensity: 7 This 59-year-old female with a history of gastroparesis presents the ER with chief complaint of severe nausea and vomiting and abdominal pain since this morning. The patient states that she always has diarrhea. This is normal for her. The patient rates the pain at a 7 out of 10. She is also having some burning sensation in the epigastric region. The patient is followed by Dr. Ridley for her gastroparesis. The patient denies any chest pain or shortness of breath. Home Medications Home Medications Medication Instructions Recorded Confirmed Type clonazepam 0.5 mg PO TID PRN #0 06/22/14 09/30/19 History famotidine [Pepcid] 40 mg PO BID #0 tab 04/15/17 09/30/19 History escitalopram oxalate [Lexapro] 20 mg PO HS #0 tab 08/08/17 09/30/19 History metoclopramide HCl 10 mg PO TIDM #0 tab 08/08/17 09/30/19 History lansoprazole 30 mg PO QAM 05/26/18 09/30/19 History multivitamin 1 tab PO QAM 09/09/18 09/30/19 History ondansetron HCl [Zofran] 8 mg PO Q6H PRN 09/09/18 09/30/19 History digoxin 125 mcg PO HS 02/27/19 09/30/19 History aluminum-magnesium hydroxide 15 ml PO Q6H PRN 14 Days #30 ml 09/26/19 09/30/19 Rx [MAG-AL] levothyroxine [Synthroid] 88 mcg PO DAILYBB 30 Days #30 tab 09/26/19 09/30/19 Rx Allergies Allergy/AdvReac Type Severity Reaction Status Date / Time adhesive Allergy Mild SKIN Verified 09/30/19 08:37 IRRITATION amoxicillin AdvReac Intermediate yeast Verified 09/30/19 08:37 infection NSAIDS (Non-Steroidal AdvReac Mild indegestion Verified 09/30/19 08:37 Anti-Inflamma rofecoxib AdvReac Mild indigestion Verified 09/30/19 08:37 scopolamine AdvReac Mild rash from Verified 09/30/19 08:37 patch Past Med/Surg History Medical History Anemia, iron deficiency (Chronic) Anxiety (Chronic) Asthma (Chronic) COPD (chronic obstructive pulmonary disease) (Chronic) Depression (Chronic) Diverticulosis (Chronic) Frequent PVCs (Chronic) Gastroparesis (Chronic) GERD (gastroesophageal reflux disease) (Chronic) H/O irritable bowel syndrome (Chronic) HTN (hypertension) (Chronic) Hypothyroidism (Chronic) Mitral regurgitation (Chronic) "moderate per echo 09/21/15" MRSA bacteremia (Resolved) Neuropathy (Chronic) Pemphigus vulgaris Pernicious anemia (Chronic) Premature atrial contractions (Chronic) Tobacco abuse (Chronic) Surgical History History of bladder surgery History of laparoscopic partial gastrectomy (Resolved) 03/2012 - [place] [facility] [place] of pyloroplasty (Resolved) laparoscopic pyloroplasty By Dr Zapata, [facility] [place] History of total hysterectomy (Resolved) Hx of cholecystectomy Hx of tonsillectomy (Resolved) S/P hysterectomy S/P laparoscopic sleeve gastrectomy S/P partial gastrectomy S/P repair of paraesophageal hernia "resulted in volvulus, required abdominal exploration" S/P tonsillectomy and adenoidectomy Family History Mother DM type 2 (diabetes mellitus, type 2) Coronary heart disease Social History Preferred Language: Kyrgyz Communication Ability: Effective Tdp Displays Analyst Required: No Beliefs That Will Affect Care: None Current Living Situation: Family Feels Safe at Home: Yes Smoking Status: Never smoker Tobacco Type: cigarettes ; Cigarettes Per Day: 10 ; Second Hand Exposure: Yes ; Hx Alcohol Use: Yes Alcohol type: beer Hx Substance Use: No Review of Systems A total of 10 systems reviewed and were otherwise negative Physical Exam Vital Signs Vital Signs - 24 hr 09/30/19 08:12 09/30/19 09:09 Temperature 36.7 C Temperature Source Oral Pulse Rate 82 Respiratory Rate 18 Respiratory Effort / Characteristics Non-Labored Spontaneous Respiratory Depth Normal Respiratory Pattern Regular Blood Pressure 128/89 Blood Pressure Mean 102 Blood Pressure Position Sitting Pulse Oximetry 97 98 Oxygen Delivery Method Room Air Room Air Sepsis Recent Fever Within 48 Hours No Sepsis New/Unexplained Change in Mental Status No Sepsis Action Taken by Nursing No Action Required GENERAL: 59-year-old female appears holding an emesis bag and vomiting frequently. MENTAL Status: Alert and oriented x3. MOUTH: Mucosa is moist NECK: Supple, no lymphadenopathy noted. No carotid bruits noted. LUNGS: Clear auscultation without wheezes rales or rhonchi. CARDIAC: Regular rate and rhythm without murmur. Pulses is full and equal throughout. BACK: No CVA tenderness noted. ABDOMEN: Positive bowel sounds all 4 quadrants. Soft, generalized tenderness to palpation throughout. Slight increase in tenderness in the epigastric region. EXTREMITIES: No cyanosis or edema noted. Course Administered Medications Hydromorphone HCl (Dilaudid) 1 mg IV Q15M PRN PRN Reason: Pain Stop: 10/14/19 08:29 Last Admin: 09/30/19 10:03 Dose: 1 mg Documented by: [id number] Admin: 09/30/19 09:35 Dose: 1 mg Documented by: [id number] Admin: 09/30/19 08:58 Dose: 1 mg Documented by: [id number] Discontinued Medications Hydromorphone HCl (Dilaudid) Confirm Administered Dose 1 mg .ROUTE .STK-MED ONE Stop: 09/30/19 10:02 Last Admin: 09/30/19 10:04 Dose: Not Given Documented by: [id number] Sodium Chloride (Nss 1000ml) 1,000 mls @ 999 mls/hr IV .Q1H1M ONE Stop: 09/30/19 09:30 Last Infusion: 09/30/19 10:39 Dose: 0 mls/hr Documented by: [id number] Admin: 09/30/19 08:58 Dose: 999 mls/hr Documented by: [id number] Prochlorperazine (Compazine) 2 mls @ 1 mls/min IV ONE ONE Stop: 09/30/19 08:31 Last Admin: 09/30/19 08:58 Dose: 1 mls/min Documented by: [id number] Ranitidine HCl 50 mg/ Dextrose 102 mls @ 200 mls/hr IV NOW STA Stop: 09/30/19 09:59 Last Infusion: 09/30/19 10:39 Dose: 0 mls/hr Documented by: [id number] Admin: 09/30/19 09:44 Dose: 200 mls/hr Documented by: [id number] Promethazine HCl (Phenergan) 25 mg IM NOW STA Stop: 09/30/19 09:28 Last Admin: 09/30/19 09:44 Dose: 25 mg Documented by: [id number] Medical Decision Making Differential Diagnosis Small bowel obstruction, gastroparesis, acute gastroenteritis Medical Records Attestation: I reviewed the patient's medical records. Home Medications Current Medication List: was personally reviewed by me Laboratory Data Attestation: I reviewed the patient's lab results. Result diagrams: 09/30/19 09:00 09/30/19 09:00 Lab Results 09/30/19 09/30/19 Range/Units 09:00 09:00 WBC 6.18 (4.8-10.8) K/uL RBC 4.02 L (4.2-5.4) M/uL Hgb 10.6 L (12.0-16.0) g/dL Hct 33.0 L (37-47) % MCV 82.1 (80-100) fL MCH 26.4 (25-34) pg MCHC 32.1 (32-36) g/dL RDW Std Deviation 54.5 H (36.4-46.3) fL RDW Coeff of Ana M 18.1 H (11.5-14.5) % Plt Count 215 (130-400) K/uL MPV 9.3 (7.4-10.4) fL Immature Gran % (Auto) 0.2 % Neut % (Auto) 67.3 % Lymph % (Auto) 23.0 % [place] % (Auto) 7.3 % Eos % (Auto) 1.9 % Baso % (Auto) 0.3 % Immature Gran # (Auto) 0.01 (0.00-0.02) K/uL Neut # (Auto) 4.16 (1.4-6.5) K/uL Lymph # (Auto) 1.42 (1.2-3.4) K/uL [place] # (Auto) 0.45 (0.11-0.59) K/uL Eos # (Auto) 0.12 (0-0.5) K/uL Baso # (Auto) 0.02 (0-0.2) K/uL Sodium 142 (136-145) mmol/L Potassium 3.5 (3.5-5.1) mmol/L Chloride 112 H (98-107) mmol/L Carbon Dioxide 23 (21-32) mmol/L Anion Gap 7.0 (3-11) BUN 9 (7-18) mg/dl Creatinine 0.94 (0.6-1.2) mg/dl Est Cr Clr Drug Dosing 61.5 ml/min Est GFR ( Amer) 75.9 Est GFR (Non-Af Amer) 65.5 BUN/Creatinine Ratio 9.6 L (10-20) Glucose 92 (70-99) mg/dl Calcium 8.8 (8.5-10.1) mg/dl Total Bilirubin 0.4 (0.2-1) mg/dl AST 23 (15-37) U/L ALT 23 (12-78) U/L Alkaline Phosphatase 80 (45-117) U/L Total Protein 6.5 (6.4-8.2) gm/dl Albumin 3.2 L (3.4-5.0) gm/dl Globulin 3.3 (2.5-4.0) gm/dl Albumin/Globulin Ratio 1.0 (0.9-2) Lipase 97 (73-393) U/L Imaging Data Attestation: I personally reviewed and interpreted this imaging study as follows: My Impression: No small bowel obstruction Radiologist's Impression: CHEST AND ABDOMEN 2 VIEWS HISTORY: Nausea. Vomiting. COMPARISON: Abdomen and pelvis CT 09/23/2019. FINDINGS: A few right basilar linear densities favor subsegmental atelectasis. The left lung is clear. The heart is normal in size. No pleural effusions. No pneumothorax. The right subclavian Port-A-Cath which terminates in the SVC. Postoperative changes consistent with prior gastric bypass. Prior cholecystectomy. No dilated loops of bowel to suggest an obstruction. Calcifications in the deep pelvis likely represent phleboliths. Stable epigastric density. IMPRESSION: No acute cardiopulmonary process. No evidence for bowel obstruction. ACT 112: Negative or not required by law. Electronically signed by: Radhames Jackson M.D. 09/30/2019 10:39 AM Dictated: 09/30/19 1037 Blood Pressure Blood Pressure Findings: Normal blood pressure MDM Narrative The patient was evaluated. IV access was obtained. The patient was given 1 L normal saline wide open. CBC and differential, renal profile, LFTs and lipase levels were ordered. The patient was given Compazine 10 mg IV, Dilaudid 1 mg IV. The patient was reevaluated and still had some vomiting and burning sensation in the epigastric region. She was therefore given Zantac 50 mg IV and Phenergan 25 mg IM for persistent vomiting. Abdominal series x-ray was interpreted by the radiologist and myself without any evidence of small bowel obstruction. Labs were reviewed and were unremarkable. The patient is slightly anemic. The patient received multiple doses of Dilaudid while in the emergency room and we cannot get her pain under control. She also received multiple doses of antiemetics including Compazine and Phenergan without complete resolution of her nausea and vomiting. The patient was independently evaluated by Dr. Cheema who agrees with treatment plan. Hospitalist was consulted for admission. Impression & Plan Intractable nausea and vomiting, Gastroparesis, Intractable abdominal pain Discharge Plan Visit Data Chief Complaint: Vomiting Stated Complaint: VOMITING, GASTRO PARESIS ED Provider: Jose Elias Cheema ED Midlevel Provider: Sheryl Bone Discharge Problem: Intractable nausea and vomiting, Gastroparesis, Intractable abdominal pain Patient Disposition: Being Evaluated by Hospitalist Condition: Good Forms Stand Alone Forms: [facility] Prescriptions Prescriptions: No Action clonazepam 0.5 mg Tablet 0.5 mg PO TID PRN (Reason: Panic Attack(S)) Qty: 0 RF: 0 famotidine [Pepcid] 40 mg Tablet 40 mg PO BID Qty: 0 RF: 0 metoclopramide HCl 10 mg Tablet 10 mg PO TIDM Qty: 0 RF: 0 escitalopram oxalate [Lexapro] 20 mg Tablet 20 mg PO HS Qty: 0 RF: 0 lansoprazole 30 mg Capsule,Delayed Release(Dr/Ec) 30 mg PO QAM RF: 0 multivitamin Tablet 1 tab PO QAM RF: 0 ondansetron HCl [Zofran] 8 mg Tablet 8 mg PO Q6H PRN (Reason: Nausea) RF: 0 MAG-AL 200-200 mg/5 mL Suspension 15 ml PO Q6H PRN (Reason: dyspepsia) 14 Days Qty: 30 RF: 0 levothyroxine [Synthroid] 88 mcg Tablet 88 mcg PO DAILYBB 30 Days Qty: 30 RF: 0 digoxin 125 mcg tablet 125 mcg PO HS RF: 0 Referrals Referrals: Jaleel Coppola MD [Primary Care Provider] -
[2019-09-30] MEDS ORDERED: HYDROmorphone INJ 1 MG/ML SYRINGE ONE (10:01)
--- NOTE | 2019-09-30 10:40 | XRay Report ---
CHEST AND ABDOMEN 2 VIEWS HISTORY: Nausea. Vomiting. COMPARISON: Abdomen and pelvis CT 09/23/2019. FINDINGS: A few right basilar linear densities favor subsegmental atelectasis. The left lung is clear . The heart is normal in size. No pleural effusions. No pneumothorax. The right subclavian Port-A-Cat h which terminates in the SVC. Postoperative changes consistent with prior gastric bypass. Prior chol ecystectomy. No dilated loops of bowel to suggest an obstruction. Calcifications in the deep pelvis l ikely represent phleboliths. Stable epigastric density. IMPRESSION: No acute cardiopulmonary process. No evidence for bowel obstruction. ACT 112: Negative or not required by law. Electronically signed by: Radhames Jackson M.D. 09/30/2019 10:39 AM
--- NOTE | 2019-09-30 10:59 | Emergency Department Note ---
ED Visit Note I have seen and examined this patient with Lizzie Bone and generally agree with the treatment plan as discussed. .
--- NOTE | 2019-09-30 11:58 | History & Physical Report ---
Date of Service September 30, 2019 Assessment & Plan (1) Intractable nausea and vomiting: (2) Gastroparesis: (3) Abdominal pain: This is a 59-year-old female who has significant past medical history of chronic gastroparesis, history of paraesophageal hernia repair and partial gastrectomy, IBS-D, COPD, hypothyroidism, tobacco abuse, GERD, chronic anemia, depression with anxiety, history of PVC/PAC who presents to [facility] ED secondary to intractable nausea and dry heaving x1 day. admit to med/surg consult GI Pepcid IV 20mg BID Carafate QID continue reglan TIDM prn zofran NPO until seen and evaluated by GI Pt takes Emend monthly IV - recently received during recent admission on 09/24/2019 (4) Depression: Continue escitalopram Feels more depressed secondary to decreased quality of life due to inability to eat and intractable nausea and dry heaves (5) Anxiety: Continue Klonopin as needed (6) COPD (chronic obstructive pulmonary disease): No acute exacerbation Not on any long-term or short-term inhalers (7) Frequent PVCs: continue digoxin (8) Tobacco abuse: Current smoking cessation Patient declines nicotine patch (9) Hypothyroidism: Continue levothyroxine Recent increase to 88 mcg daily (10) Anemia, iron deficiency: chronic anemia H&H stable at 10.6 and 33.0 Normocytic normochromic Monitor (11) DVT prophylaxis: SCD/TEDS Disposition: admit to med/surg Follow up: PCP Dr. Coppola upon discharge Pt was seen and examined in collaboration with Dr. Aguilar, please see addendum History of Present Illness Chief Complaint: Intractable nausea and dry heaving x1 day. Primary Care Provider: Jaleel Coppola MD This is a 59-year-old female who has significant past medical history of gastroparesis, history of paraesophageal hernia repair and partial gastrectomy, IBS-D, COPD, hypothyroidism, tobacco abuse, GERD, chronic anemia, depression with anxiety, history of PVC/PAC who presents to [facility] ED secondary to intractable nausea and dry heaving x1 day. She elicits she woke up at approximately 5 AM secondary to severe nausea and dry heaving. She is unable to vomit but feels if she would this may alleviate her symptoms. She also elicits to epigastric abdominal pain that radiates to her back. Pain comes and goes, nothing makes better or worse, currently rated 6/10. Since arrival to ED her dry heaving has improved but she still feels significantly nauseous. Over the past several weeks she states she has been unable to eat anything, only able to tolerate liquids. She feels when she eats anything solid it gets stuck, but she does not vomit up any solid food. Overall she has been dealing with above symptoms since having surgery back in 2011. She does have a port in place in which she is to receive monthly EMEND injections but she states she has been unable to get the secondary to not having transportation. Of significance patient recently admitted 09/24 to 09/[address] Marshall secondary to similar symptoms with abdominal pain and intractable nausea. CT scan abdomen pelvis concerning for questionable colitis and it was also felt that she had a flare of her gastroparesis. During hospitalization she did try Maalox and Carafate which did seem to improve symptoms. At that time she did refuse GI evaluation. 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 She denies any fever, chills, sweats, lightheadedness, dizziness, syncope, chest pain, shortness of breath, russell emesis, hematemesis, constipation, melena, hematochezia, dysuria, increased urgency or frequency with urination. She does chronically have diarrhea secondary to IBS. "Is there anything I can take for this?" Last bowel movement was this morning, russell diarrhea. This is at times she is unable to control her bowel habits. She denies any significant weight loss despite only able to tolerate liquids. She admits to be compliant with her medications, but did not take any this morning secondary to ill feeling. In ED lab work significant for chronic anemia H&H 10.6 and 33.0, WBC 6.18, platelet 215, CMP relatively unremarkable and lipase WNL. Chest x-ray and KUB without acute abnormality. In ED she received IV antiemetics, IV Pepcid, IVF and IV Dilaudid with minimal relief. Dry heaving has improved however intractable nausea still present. Allergies Allergy/AdvReac Type Severity Reaction Status Date / Time adhesive Allergy Mild SKIN Verified 09/30/19 08:37 IRRITATION amoxicillin AdvReac Intermediate yeast Verified 09/30/19 08:37 infection NSAIDS (Non-Steroidal AdvReac Mild indegestion Verified 01/07/20 08:37 Anti-Inflamma rofecoxib AdvReac Mild indigestion Verified 09/30/19 08:37 scopolamine AdvReac Mild rash from Verified 09/30/19 08:37 patch Home Medications Home Medications Medication Instructions Recorded Confirmed Type clonazepam 0.5 mg PO TID PRN #0 06/22/14 09/30/19 History famotidine [Pepcid] 40 mg PO BID #0 tab 04/15/17 09/30/19 History escitalopram oxalate [Lexapro] 20 mg PO HS #0 tab 08/08/17 09/30/19 History metoclopramide HCl 10 mg PO TIDM #0 tab 08/08/17 09/30/19 History lansoprazole 30 mg PO QAM 05/26/18 09/30/19 History multivitamin 1 tab PO QAM 09/09/18 09/30/19 History ondansetron HCl [Zofran] 8 mg PO Q6H PRN 09/09/18 09/30/19 History digoxin 125 mcg PO HS 02/27/19 09/30/19 History MAG-AL 15 ml PO Q6H PRN 14 Days #30 ml 09/26/19 09/30/19 Rx levothyroxine [Synthroid] 88 mcg PO DAILYBB 30 Days #30 tab 09/26/19 09/30/19 Rx Past Med/Surg History Medical History Anemia, iron deficiency (Chronic) Anxiety (Chronic) Asthma (Chronic) COPD (chronic obstructive pulmonary disease) (Chronic) Depression (Chronic) Diverticulosis (Chronic) Frequent PVCs (Chronic) Gastroparesis (Chronic) GERD (gastroesophageal reflux disease) (Chronic) H/O irritable bowel syndrome (Chronic) HTN (hypertension) (Chronic) Hypothyroidism (Chronic) Mitral regurgitation (Chronic) "moderate per echo 09/21/15" MRSA bacteremia (Resolved) Neuropathy (Chronic) Pemphigus vulgaris Pernicious anemia (Chronic) Premature atrial contractions (Chronic) Tobacco abuse (Chronic) Surgical History History of bladder surgery History of laparoscopic partial gastrectomy (Resolved) History of pyloroplasty (Resolved) History of total hysterectomy (Resolved) Hx of cholecystectomy Hx of tonsillectomy (Resolved) S/P hysterectomy S/P laparoscopic sleeve gastrectomy S/P partial gastrectomy S/P repair of paraesophageal hernia "resulted in volvulus, required abdominal exploration" S/P tonsillectomy and adenoidectomy Family History Mother DM type 2 (diabetes mellitus, type 2) Coronary heart disease Social History Preferred Language: Qatari Communication Ability: Effective Hotel Services Supervisor Required: No Beliefs That Will Affect Care: None marital status: / Current Living Situation: Family Current Living Situation Comment: lives with brother Other Information That Helps Us Care for You: No Feels Safe at Home: Yes Safety Concerns: Feels Safe At This Time Smoking Status: Current every day smoker Tobacco Type: cigarettes ; Cigarettes Per Day: 1 pack a day (20) ; Do You Dip or Chew Tobacco: No ; Second Hand Exposure: No ; Tobacco Cessation Education Requested by Patient: No Hx Alcohol Use: Yes Alcohol type: beer Alcohol Intake Frequency: Holidays/Special Occasions Hx Substance Use: No Review of Systems Review of Systems: All systems reviewed & are unremarkable except as noted in HPI & below Physical Exam Physical Exam: Constitutional: WD/WN, chronically ill appearing, vitals as above, NAD, sitting up in bed, pleasant, conversing easily Head: Normocephalic, Atraumatic Eyes: PERRL, conjunctivae normal, anicteric sclerae ENMT: external ear and nose normal, oropharynx dry mucous membranes Neck: trachea midline, no thyromegaly normal visual inspection Respiratory: normal respiratory effort, lungs clear to auscultation, no wheeze, rales, rhonchi. Normal insp/exp effort, no accessory muscle use Cardiovascular: RRR, no murmur, no edema Vessels: no JVD or carotid bruit , A port in place Chest: normal inspection of chest Abdomen: +BS, hypoactive, soft, tender to palpation in epigastrum but no rebound, guarding, rigidity, no hepatosplenomegaly Musculoskeletal: no cyanosis or clubbing, extremities motor strength 5/5 Skin: no rashes, warm and dry normal turgor Neurologic: PERRL, EOMI, accommodation nl, no face palsy, no dysarthria CN's II-XI intact bilaterally and moves all extremities Psychiatric: A+Ox3, euthymic affect Lymphatic: no cervical or axillary lymphadenopathy : deferred Results & Data Vital Signs (Past 12 Hours) Vital Signs Temp Pulse Resp BP Pulse Ox 09/30/19 09:09 98 09/30/19 08:12 36.7 C 82 18 128/89 97 Laboratory Results Short CBC 09/30/19 Range/Units 09:00 WBC 6.18 (4.8-10.8) K/uL Hgb 10.6 L (12.0-16.0) g/dL Hct 33.0 L (37-47) % Plt Count 215 (130-400) K/uL BMP 09/30/19 09:00 Sodium 142 Potassium 3.5 Chloride 112 H Carbon Dioxide 23 BUN 9 Creatinine 0.94 Glucose 92 Calcium 8.8 Liver Function 09/30/19 Range/Units 09:00 Total Bilirubin 0.4 (0.2-1) mg/dl AST 23 (15-37) U/L ALT 23 (12-78) U/L Alkaline Phosphatase 80 (45-117) U/L Albumin 3.2 L (3.4-5.0) gm/dl Diagnostic Findings KUB/CXR: HISTORY: Nausea. Vomiting. COMPARISON: Abdomen and pelvis CT 09/23/2019. FINDINGS: A few right basilar linear densities favor subsegmental atelectasis. The left lung is clear. The heart is normal in size. No pleural effusions. No pneumothorax. The right subclavian Port-A-Cath which terminates in the SVC. Postoperative changes consistent with prior gastric bypass. Prior cholecystectomy. No dilated loops of bowel to suggest an obstruction. Calcifications in the deep pelvis likely represent phleboliths. Stable epigastric density. IMPRESSION: No acute cardiopulmonary process. No evidence for bowel obstruction. Medications Administered Hydromorphone HCl (Dilaudid) 1 mg IV Q15M PRN PRN Reason: Pain Stop: 10/14/19 08:29 Last Admin: 09/30/19 10:03 Dose: 1 mg Documented by: [id number] Admin: 09/30/19 09:35 Dose: 1 mg Documented by: [id number] Admin: 09/30/19 08:58 Dose: 1 mg Documented by: [id number] Discontinued Medications Hydromorphone HCl (Dilaudid) Confirm Administered Dose 1 mg .ROUTE .STK-MED ONE Stop: 09/30/19 10:02 Last Admin: 09/30/19 10:04 Dose: Not Given Documented by: [id number] Sodium Chloride (Nss 1000ml) 1,000 mls @ 999 mls/hr IV .Q1H1M ONE Stop: 09/30/19 09:30 Last Infusion: 09/30/19 10:39 Dose: 0 mls/hr Documented by: [id number] Admin: 09/30/19 08:58 Dose: 999 mls/hr Documented by: [id number] Prochlorperazine (Compazine) 2 mls @ 1 mls/min IV ONE ONE Stop: 09/30/19 08:31 Last Admin: 09/30/19 08:58 Dose: 1 mls/min Documented by: [id number] Ranitidine HCl 50 mg/ Dextrose 102 mls @ 200 mls/hr IV NOW STA Stop: 09/30/19 09:59 Last Infusion: 09/30/19 10:39 Dose: 0 mls/hr Documented by: [id number] Admin: 09/30/19 09:44 Dose: 200 mls/hr Documented by: [id number] Promethazine HCl (Phenergan) 25 mg IM NOW STA Stop: 09/30/19 09:28 Last Admin: 09/30/19 09:44 Dose: 25 mg Documented by: [id number] Code Status & VTE Plan Code Status Full Code VTE Prophylaxis Plan VTE Prophylaxis will be ordered: Yes Supervising Physician Co-Signing Physician Notes Pt was seen and examined. Agreed with Alaina AGUILAR exam, assessment and plan. 59-year-old female who has significant past medical history of chronic gastroparesis, history of paraesophageal hernia repair and partial gastrectomy, IBS-D, COPD, hypothyroidism, tobacco abuse, GERD, chronic anemia, depression with anxiety, history of PVC/PAC, multiple hospitalization for N/V presents to [facility] ED secondary for intractable nausea and dry heaving. Pt was recently discharged few days ago for nausea. Pt said that this morning she develops severe nausea and dry heaving. Abdominal xray showed no evidence for bowel obstruction. Continue pepcid IV, IV zofran, Reglan and IVF. Will consult GI. Will keep NPO for now. MD Lauren (1) Depression Depression Type: unspecified Qualified Code(s): F32.9 - Major depressive di sorder, single episode, unspecified (2) Hypothyroidism Hypothyroidism type: acquired Qualified Code(s): E03.9 - Hypothyroidism, unspecified (3) Abdominal pain Abdominal location: generalized Qualified Code(s): R10.84 - Generalized abdominal pain
[2019-09-30] MEDS ORDERED: METOCLOPRAMIDE HCL 10 MG TABLET PO SCH (12:00)
[2019-09-30] MEDS: SUCRALFATE 1 GM/10 ML UDC PO SCH ×4 (12:31→21:36)
--- NOTE | 2019-09-30 13:36 | Gastrointestinal Consultation ---
Date of Consultation September 30, 2019 Assessment & Plan (1) Intractable nausea and vomiting: (2) Gastroparesis: (3) Abdominal pain: (4) History of laparoscopic partial gastrectomy: (5) History of pyloroplasty: (6) Diarrhea: Pt is a 59 y/o w hx of IBS, gastroparesis, s/p partial gastrectomy and pyloroplasty who presented w persistent n/v, dysphagia, upper abd pain radiating to back, stool incontinence, diarrhea. Stool studies at previous admission last week negative for infectious processes. CT w ? mild colitis vs underdistension. Chest/abd xray today w/o acute changes. - Repeat stool cx and CDiff. If negative, will try Colestipol for possible bile acid diarrhea - Will try Erythromycin 250mg PO for possible gastroparesis flare. Just had Emend IV 09/24/2019 which she said didn't work for her - NPO after midnight for EGD eval tomorrow 10/01/2019 - Continue Prevacid 30mg daily - Symptomatic management with antiemetics prn Attg add: I interviewed and examined pt, reviewed chart and labs. Will adjust antiemetics, and plan EGD tmorrow. History of Present Illness Reason for Consultation: Intractable nausea, vomiting; dysphagia Requesting Physician: Dr. Nena Aguilar Attending Physician: Dr. Silvia Ridley History of Present Illness Pt is a 59 y/o female w hx of paraesophageal hernia s/p partial sleeve gastrectomy, gastroparesis, IBS, who presents back to ED w c/o epigastric abd pain radiating to back, n/v, and difficulty swallowing (feeling food get stuck on mid esophagus), diarrhea. She was just admitted last week for similar symptoms suspected to have gastroparesis flare. Received Emend IV on 09/24/2019 which usually works well for her flare however this time she reports it didn't work. She is c/o stool incontinence at night time. Last abd/pelvis CT w IV contrast done on 09/23/19 w/o signs of bowel obstruction, + mild wall thickening on transverse, descending and sigmoid colon suspected to be more likely related to partial distension vs mild colitis. Stool cx and Cdiff negative at last admission. Labs, abd/chest xray reviewed - no signs of leukocytosis, ANA, LFTs, Lipase normal; abd/chest xray unremarkable. Last EGD 02/2019 - LA grade A reflux esophagitis, staple removed from stomach Allergies Allergy/AdvReac Type Severity Reaction Status Date / Time adhesive Allergy Mild SKIN Verified 09/30/19 08:37 IRRITATION amoxicillin AdvReac Intermediate yeast Verified 09/30/19 08:37 infection NSAIDS (Non-Steroidal AdvReac Mild indegestion Verified 09/30/19 08:37 Anti-Inflamma rofecoxib AdvReac Mild indigestion Verified 09/30/19 08:37 scopolamine AdvReac Mild rash from Verified 09/30/19 08:37 patch Home Medications Home Medications Medication Instructions Recorded Confirmed Type clonazepam 0.5 mg PO TID PRN #0 06/22/14 09/30/19 History famotidine [Pepcid] 40 mg PO BID #0 tab 04/15/17 09/30/19 History escitalopram oxalate [Lexapro] 20 mg PO HS #0 tab 08/08/17 09/30/19 History metoclopramide HCl 10 mg PO TIDM #0 tab 08/08/17 09/30/19 History lansoprazole 30 mg PO QAM 05/26/18 09/30/19 History multivitamin 1 tab PO QAM 09/09/18 09/30/19 History ondansetron HCl [Zofran] 8 mg PO Q6H PRN 09/09/18 09/30/19 History digoxin 125 mcg PO HS 02/27/19 09/30/19 History aluminum-magnesium hydroxide 15 ml PO Q6H PRN 14 Days #30 ml 09/26/19 09/30/19 Rx [MAG-AL] levothyroxine [Synthroid] 88 mcg PO DAILYBB 30 Days #30 tab 09/26/19 09/30/19 Rx Patient History Medical History Anemia, iron deficiency (Chronic) Anxiety (Chronic) Asthma (Chronic) COPD (chronic obstructive pulmonary disease) (Chronic) Depression (Chronic) Diverticulosis (Chronic) Frequent PVCs (Chronic) Gastroparesis (Chronic) GERD (gastroesophageal reflux disease) (Chronic) H/O irritable bowel syndrome (Chronic) HTN (hypertension) (Chronic) Hypothyroidism (Chronic) Mitral regurgitation (Chronic) "moderate per echo 12/29/15" MRSA bacteremia (Resolved) Neuropathy (Chronic) Pemphigus vulgaris Pernicious anemia (Chronic) Premature atrial contractions (Chronic) Tobacco abuse (Chronic) Surgical History History of bladder surgery History of laparoscopic partial gastrectomy (Resolved) 03/2012 - Dr Dove at [facility] [place] History of pyloroplasty (Resolved) laparoscopic pyloroplasty By Dr Zapata, [facility] [place] History of total hysterectomy (Resolved) Hx of cholecystectomy Hx of tonsillectomy (Resolved) S/P hysterectomy S/P laparoscopic sleeve gastrectomy S/P partial gastrectomy S/P repair of paraesophageal hernia "resulted in volvulus, required abdominal exploration" S/P tonsillectomy and adenoidectomy Family History Mother DM type 2 (diabetes mellitus, type 2) Coronary heart disease Social History Preferred Language: Nepali Communication Ability: Effective Procurement Assistant Required: No Beliefs That Will Affect Care: None Current Living Situation: Family Current Living Situation Comment: lives with brother Feels Safe at Home: Yes Smoking Status: Current every day smoker Tobacco Type: cigarettes ; Cigarettes Per Day: 1ppd ; Second Hand Exposure: Yes ; Hx Alcohol Use: Yes Alcohol type: beer Alcohol Intake Frequency: Holidays/Special Occasions Hx Substance Use: No Review of Systems Review of Systems: All systems reviewed & are unremarkable except as noted in HPI & below Physical Exam Constitutional: well groomed, cooperative and + lethargic Eyes: PERRL, conjunctivae normal, anicteric sclerae ENMT: external ear and nose normal, oropharynx normal Respiratory: normal respiratory effort, lungs clear to auscultation Cardiovascular: RRR, no murmur, no edema Gastrointestinal (Abdomen): normal bowel sounds, soft, nontender, no hepatosplenomegaly Skin: no rashes, warm and dry no jaundice Psychiatric: A+Ox3, euthymic affect Lymphatic: no lymphedema Results & Data Vital Signs (Past 12 Hours) Vital Signs Temp Pulse Resp BP Pulse Ox 09/30/19 12:00 70 15 117/86 98 09/30/19 11:30 69 16 134/98 99 09/30/19 11:00 72 16 120/87 97 09/30/19 10:00 75 13 127/83 95 09/30/19 09:30 67 15 115/90 97 09/30/19 09:09 98 09/30/19 09:02 74 13 94/76 L 94 09/30/19 08:12 36.7 C 82 18 128/89 97 (1) Abdominal pain Abdominal location: generalized Qualified Code(s): R10.84 - Generalized abdominal pain
[2019-09-30] MEDS ORDERED: ONDANSETRON INJ 2 MG/ML 2 ML VIAL IV STA (15:05)
[2019-09-30] MEDS ORDERED: LANSOPRAZOLE 30 MG SOLTAB PO STA (15:32)
[2019-09-30] MEDS ORDERED: POLYETHYLENE (MIRALAX) 17 GM PACK PO PRN (17:28)
[2019-09-30] MEDS ORDERED: ACETAMINOPHEN 325 MG TAB PO PRN (17:28)
[2019-09-30] MEDS ORDERED: SODIUM CHLORIDE 0.9% 1000ML 1,000 ML IV SCH (17:28)
[2019-09-30] MEDS ORDERED: MAGNESIUM HYDROXIDE SUSP 30 ML UDC PO PRN (17:28)
[2019-09-30] MEDS ORDERED: clonazePAM 0.5 MG TAB PO PRN (17:28)
[2019-09-30] MEDS ORDERED: ALUMINUM/MAGNESIUM SUSP 30 ML UDC PO PRN (17:28)
[2019-09-30] MEDS ORDERED: NON-FORMULARY MEDICATION (Lansoprazole 30 MG) PO SCH (17:28)
[2019-09-30] MEDS ORDERED: ONDANSETRON INJ 2 MG/ML 2 ML VIAL IV PRN (17:28)
[2019-09-30] MEDS ORDERED: ERYTHROMYCIN ETHYLSUCC SUSP 200 MG/5 ML 100 ML BTL PO ONE (18:00)
[2019-09-30] MEDS: DIGOXIN 0.125 MG TAB PO SCH (18:53)
[2019-09-30] MEDS ORDERED: DIGOXIN 0.125 MG TAB PO SCH (21:00)
[2019-09-30] MEDS: METOCLOPRAMIDE HCL INJ 5 MG/ML 2 ML VIAL IV SCH (21:36)
[2019-09-30] MEDS: ESCITALOPRAM OXALATE 20 MG TAB PO SCH (21:36)
[2019-09-30] MEDS: FAMOTIDINE 20 MG in SYRINGE 3 ML IV SCH (21:57)
[2019-10-01 06:05] LABS: Basophils # (auto) 0.01 K/uL (0-0.2); Basophils % (auto) 0.3 %; Eosinophils # (auto) 0.13 K/uL (0-0.5); Eosinophils % (auto) 3.5 %; Hematocrit (blood only) 28.5 % (37-47); Hemoglobin 9.1 g/dL (12.0-16.0); Lymphocytes # (auto) 1.73 K/uL (1.2-3.4); Lymphocytes % (auto) 46.8 %; Mean Corpuscular Hemoglobin 26.4 pg (25-34); Mean Corpuscular Hgb Conc 31.9 g/dL (32-36); Mean Corpuscular Volume 82.6 fL (80-100); Mean Platelet Volume 9.2 fL (7.4-10.4); Monocytes # (auto) 0.35 K/uL (0.11-0.59); Monocytes % (auto) 9.5 %; Neutrophils # (auto) 1.48 K/uL (1.4-6.5); Neutrophils % (auto) 39.9 %; Platelet Count 179 K/uL (130-400); RDW Coefficient of Variation 18.4 % (11.5-14.5); RDW Standard Deviation 55.4 fL (36.4-46.3); Red Blood Count 3.45 M/uL (4.2-5.4)
[2019-10-01] MEDS: LEVOTHYROXINE SODIUM 88 MCG TABLET PO SCH (06:07)
[2019-10-01] MEDS: HEPARIN 100 UNIT/ML 5ML FLUSH FLUSH PRN ×2 (06:10→21:59)
[2019-10-01 06:38] LABS: Albumin Level 2.4 gm/dl (3.4-5.0); BUN Creatinine Ratio 8.3 (10-20); Calcium 7.5 mg/dl (8.5-10.1); Creatinine Clr Calc Pharmacy 63.7 ml/min; Est GFR (African American) 78.9; Est GFR (Non-African American) 68.1; Potassium 3.7 mmol/L (3.5-5.1)
[2019-10-01 06:49] LABS: Albumin Globulin Ratio 0.9 (0.9-2); Bilirubin,Total 0.4 mg/dl (0.2-1); Globulin 2.7 gm/dl (2.5-4.0); Total Protein 5.1 gm/dl (6.4-8.2)
[2019-10-01] MEDS: SUCRALFATE 1 GM/10 ML UDC PO SCH ×4 (08:06→21:59)
[2019-10-01] MEDS: LANSOPRAZOLE 30 MG SOLTAB PO SCH (08:06)
[2019-10-01] MEDS: METOCLOPRAMIDE HCL INJ 5 MG/ML 2 ML VIAL IV SCH ×3 (08:06→21:59)
[2019-10-01] MEDS: FAMOTIDINE 20 MG in SYRINGE 3 ML IV SCH ×2 (08:06→21:59)
--- NOTE | 2019-10-01 10:01 | Gastroenterology Progress Note ---
Date of Service October 01, 2019 Assessment & Plan (1) Intractable nausea and vomiting: (2) Gastroparesis: (3) Abdominal pain: (4) History of laparoscopic partial gastrectomy: (5) History of pyloroplasty: (6) Diarrhea: Pt is a 59 y/o w hx of IBS, gastroparesis, s/p partial gastrectomy and pyloroplasty who presented w persistent n/v, dysphagia, upper abd pain radiating to back, stool incontinence, diarrhea. Stool studies at previous admission last week negative for infectious processes. CT w ? mild colitis vs underdistension. Chest/abd xray today w/o acute changes. - Repeat stool cx and CDiff. If negative, will try Bentyl - Erythromycin 250mg PO for possible gastroparesis flare. Just had Emend IV 09/24/2019 which she said didn't work for her - Continue Prevacid 30mg daily - Symptomatic management with antiemetics prn - Proceed with EGD eval today Attg add: I interviewed and examined pt, reviewed chart and labs. Pt with resolved nausea and vomiting. Zeny clears. Subjective Pt hasn't tried anything to eat yesterday after admission. Said feels well, denies any n/v, abd pain. No BMs overnight. Had been NPO for EGD eval today Review of Systems Review of Systems: All systems reviewed & are unremarkable except as noted in HPI & below Physical Exam Constitutional: WD/WN, vitals as above Eyes: PERRL, conjunctivae normal, anicteric sclerae ENMT: external ear and nose normal, oropharynx normal Respiratory: normal respiratory effort, lungs clear to auscultation Cardiovascular: RRR, no murmur, no edema Gastrointestinal (Abdomen): normal bowel sounds, soft, nontender, no hepatosplenomegaly Skin: no rashes, warm and dry no jaundice Psychiatric: A+Ox3, euthymic affect Lymphatic: no lymphedema Results & Data Vital Signs (Past 12 Hours) Vital Signs Temp Pulse Pulse Resp BP Pulse Ox 10/01/19 08:00 36.5 C 60 14 116/80 98 09/30/19 22:55 36.5 C 59 L 16 110/72 95 (1) Abdominal pain Abdominal location: generalized Qualified Code(s): R10.84 - Generalized abdominal pain
--- NOTE | 2019-10-01 10:10 | Electrocardiogram Report ---
Test Reason : Blood Pressure : / mmHG Vent. Rate : 053 BPM Atrial Rate : 053 BPM P-R Int : 166 ms QRS Dur : 078 ms QT Int : 492 ms P-R-T Axes : 034 021 012 degrees QTc Int : 461 ms Sinus bradycardia Otherwise normal ECG When compared with ECG of 23-SEP-2019 18:49, No significant change was found Confirmed by Trace Castillo ([id number]) on 10/01/2019 10:09:41 AM Referred By: REFERRED SELF Confirmed By:Trace Castillo
[2019-10-01 16:35] LABS: Cdiff Antigen Positive; Cdiff Toxin A+B Negative Cdiff Toxin (Negative)
--- NOTE | 2019-10-01 19:03 | Hospitalist Progress Note ---
Date of Service October 01, 2019 Assessment & Plan (1) Intractable nausea and vomiting: (2) Gastroparesis: (3) Abdominal pain: This is a 59-year-old female who has significant past medical history of chronic gastroparesis, history of paraesophageal hernia repair and partial gastrectomy, IBS-D, COPD, hypothyroidism, tobacco abuse, GERD, chronic anemia, depression with anxiety, history of PVC/PAC who presents to [facility] ED secondary to intractable nausea and dry heaving x1 day. - admitted to med/surg - GI consulted - plan for EGD tomorrow 10/02, NPO after MN - cont. Pepcid IV 20mg BID - cont. Carafate QID prn - continue reglan TIDM - prn zofran - currently says she feels well again Pt takes Emend monthly IV - recently received during recent admission on 09/24/2019 (4) Depression: Continue escitalopram Feels more depressed secondary to decreased quality of life due to inability to eat and intractable nausea and dry heaves (5) Anxiety: Continue Klonopin as needed (6) COPD (chronic obstructive pulmonary disease): No acute exacerbation Not on any long-term or short-term inhalers (7) Frequent PVCs: continue digoxin (8) Tobacco abuse: Current smoking cessation Patient declines nicotine patch (9) Hypothyroidism: Continue levothyroxine Recent increase to 88 mcg daily (10) Anemia, iron deficiency: Chronic anemia H&H stable at 10.6 and 33.0 on admission - now above 9, likely dilutional from IVF Normocytic normochromic - Monitor (11) DVT prophylaxis: SCD/TEDS Disposition: med/surg Follow up: PCP Dr. Coppola upon discharge Subjective Pt is currently laying in bed, in NAD. Denies any nausea, vomiting, uncontrolled acid reflux or dyspepsia. Says that it has resolved. Also denies fever, chills, chest pain, shortness of breath, abd. pain. Review of Systems Review of Systems: All systems reviewed & are unremarkable except as noted in HPI & below Constitutional: no fever and no chills Respiratory: no cough and no dyspnea Cardiovascular: no chest pain, no palpitations and no edema Gastrointestinal: no abdominal pain, no nausea and no vomiting Physical Exam Physical Exam: Constitutional: elderly female sitting up in bed in NAD Head: Normocephalic, Atraumatic Eyes: PERRL, EOMI, conjunctivae normal, anicteric sclerae ENMT: external ear and nose normal, oropharynx dry mucous membranes Neck: trachea midline, no thyromegaly normal visual inspection Respiratory: normal respiratory effort, lungs clear to auscultation, no wheeze, rales, rhonchi. Normal insp/exp effort, no accessory muscle use Cardiovascular: RRR, no murmur, no edema Vessels: no JVD or carotid bruit Chest: A port in place at RU chest Abdomen: +BS,soft, nontender, nondistended,no guarding Musculoskeletal: no cyanosis or clubbing, extremities motor strength 5/5, moves all 4 extremities spontaneously Skin: no rashes, warm and dry normal turgor Neurologic: PERRL, EOMI, accommodation nl, no face palsy, no dysarthria CN's II-XI intact bilaterally and moves all extremities Psychiatric: A+Ox3, euthymic affect Results & Data Vital Signs (Past 12 Hours) Vital Signs Temp Pulse Pulse Resp BP Pulse Ox 10/01/19 15:05 36.6 C 57 L 16 103/68 95 10/01/19 08:00 36.5 C 60 14 116/80 98 Laboratory Results 10/01/19 10/01/19 10/01/19 Range/Units 13:30 05:42 05:42 WBC 3.70 L (4.8-10.8) K/uL RBC 3.45 L (4.2-5.4) M/uL Hgb 9.1 L (12.0-16.0) g/dL Hct 28.5 L (37-47) % MCV 82.6 (80-100) fL MCH 26.4 (25-34) pg MCHC 31.9 L (32-36) g/dL RDW Std Deviation 55.4 H (36.4-46.3) fL RDW Coeff of Ana M 18.4 H (11.5-14.5) % Plt Count 179 (130-400) K/uL MPV 9.2 (7.4-10.4) fL Immature Gran % (Auto) 0.0 % Neut % (Auto) 39.9 % Lymph % (Auto) 46.8 % Chase % (Auto) 9.5 % Eos % (Auto) 3.5 % Baso % (Auto) 0.3 % Immature Gran # (Auto) 0.00 (0.00-0.02) K/uL Neut # (Auto) 1.48 (1.4-6.5) K/uL Lymph # (Auto) 1.73 (1.2-3.4) K/uL Chase # (Auto) 0.35 (0.11-0.59) K/uL Eos # (Auto) 0.13 (0-0.5) K/uL Baso # (Auto) 0.01 (0-0.2) K/uL Sodium 145 (136-145) mmol/L Potassium 3.7 (3.5-5.1) mmol/L Chloride 116 H (98-107) mmol/L Carbon Dioxide 24 (21-32) mmol/L Anion Gap 6.0 (3-11) BUN 8 (7-18) mg/dl Creatinine 0.91 (0.6-1.2) mg/dl Est Cr Clr Drug Dosing 63.7 ml/min Est GFR ( Amer) 78.9 Est GFR (Non-Af Amer) 68.1 BUN/Creatinine Ratio 8.3 L (10-20) Glucose 80 (70-99) mg/dl Calcium 7.5 L (8.5-10.1) mg/dl Total Bilirubin 0.4 (0.2-1) mg/dl AST 24 (15-37) U/L ALT 20 (12-78) U/L Alkaline Phosphatase 68 (45-117) U/L Total Protein 5.1 L D (6.4-8.2) gm/dl Albumin 2.4 L (3.4-5.0) gm/dl Globulin 2.7 (2.5-4.0) gm/dl Albumin/Globulin Ratio 0.9 (0.9-2) Lipase 77 (73-393) U/L Stl C. diff Tox B Gene Positive Cdiff Gene H (Neg) Stl C.difficile Tox A&B Negative Cdiff Toxin (Negative) Medications Administered Current Inpatient Medications Acetaminophen (Tylenol) 650 mg PO Q4H PRN PRN Reason: pain/fever Stop: 10/30/19 17:27 Al Hydrox/Mg Hydrox/Simethicone (Maalox) 30 ml PO Q6H PRN PRN Reason: Dyspepsia Stop: 10/30/19 17:27 Clonazepam (Klonopin) 0.5 mg PO TID PRN PRN Reason: Panic Attack(S) Stop: 10/30/19 17:27 Digoxin (Lanoxin) 0.125 mg PO DAILY@1900 [facility] Stop: 10/30/19 18:59 Last Admin: 09/30/19 18:53 Dose: 0.125 mg Documented by: Escitalopram Oxalate (Lexapro Tab) 20 mg PO HS [facility] Stop: 10/30/19 20:59 Last Admin: 09/30/19 21:36 Dose: 20 mg Documented by: Heparin Sodium (Porcine) (Heparin Sod 100 Unit/Ml Flush) 5 ml FLUSH PRN PRN PRN Reason: Flush Stop: 10/31/19 00:59 Last Admin: 10/01/19 06:10 Dose: 5 ml Documented by: Famotidine 20 mg/ Syringe 5 mls @ 2.5 mls/min IV BID [facility] Stop: 10/30/19 20:59 Last Admin: 10/01/19 08:06 Dose: 2.5 mls/min Documented by: Lansoprazole (Prevacid) 30 mg PO QAM [facility] Stop: 10/31/19 08:59 Last Admin: 10/01/19 08:06 Dose: 30 mg Documented by: Levothyroxine Sodium (Synthroid) 88 mcg PO DAILYBB [facility] Stop: 10/31/19 06:29 Last Admin: 10/01/19 06:07 Dose: 88 mcg Documented by: Magnesium Hydroxide (Milk Of Magnesia) 30 ml PO Q6H PRN PRN Reason: Constipation Stop: 10/30/19 17:27 Metoclopramide HCl (Reglan) 5 mg IV TID [facility] Stop: 10/30/19 20:59 Last Admin: 10/01/19 13:06 Dose: 5 mg Documented by: Ondansetron HCl (Zofran) 4 mg IV Q6H PRN PRN Reason: Nausea Stop: 10/30/19 17:27 Last Admin: 09/30/19 23:30 Dose: 4 mg Documented by: Polyethylene Glycol (Miralax Powder Packet) 17 gm PO DAILY PRN PRN Reason: Constipation Stop: 10/30/19 17:27 Sucralfate (Carafate) 1 gm PO ACHS [facility] Stop: 10/30/19 20:59 Last Admin: 10/01/19 16:52 Dose: 1 gm Documented by: (1) Depression Depression Type: unspecified Qualified Code(s): F32.9 - Major depressive disorder, single episode, unspecified (2) Hypothyroidism Hypothyroidism type: acquired Qualified Code(s): E03.9 - Hypothyroidism, unspecified (3) Abdominal pain Abdominal location: generalized Qualified Code(s): R10.84 - Generalized abdominal pain
[2019-10-01] MEDS: DIGOXIN 0.125 MG TAB PO SCH (19:31)
[2019-10-01] MEDS: ESCITALOPRAM OXALATE 20 MG TAB PO SCH (21:59)
[2019-10-02] MEDS: LEVOTHYROXINE SODIUM 88 MCG TABLET PO SCH (07:54)
[2019-10-02] MEDS: SUCRALFATE 1 GM/10 ML UDC PO SCH ×3 (07:54→17:17)
[2019-10-02] MEDS: LANSOPRAZOLE 30 MG SOLTAB PO SCH (07:54)
[2019-10-02] MEDS: FAMOTIDINE 20 MG in SYRINGE 3 ML IV SCH (08:16)
[2019-10-02] MEDS: METOCLOPRAMIDE HCL INJ 5 MG/ML 2 ML VIAL IV SCH ×2 (08:16→13:20)
--- NOTE | 2019-10-02 11:03 | Anesthesiology Consultation ---
Date of Service October 02, 2019 Assessment & Plan Chart Review Chart Review: Acceptable Risk for Surgery and Patient NOT seen in Pre Admission Testing Consults Requested none History Surgery Operation Date: 10/01/19 16:00 Proposed Procedures p Esophagogastroduodenoscopy Dr David Ridley Operation Date: 10/02/19 16:00 Proposed Procedures p Esophagogastroduodenoscopy Dr David Ridley Operation Date: 10/02/19 16:00 Proposed Procedures p Esophagogastroduodenoscopy Dr Keyana Ridley Height/Weight Height: 5 ft 5 in Weight: 70 kg Allergies Allergy/AdvReac Type Severity Reaction Status Date / Time adhesive Allergy Mild SKIN Verified 09/30/19 08:37 IRRITATION amoxicillin AdvReac Intermediate yeast Verified 09/30/19 08:37 infection NSAIDS (Non-Steroidal AdvReac Mild indegestion Verified 09/30/19 08:37 Anti-Inflamma rofecoxib AdvReac Mild indigestion Verified 09/30/19 08:37 scopolamine AdvReac Mild rash from Verified 09/30/19 08:37 patch Medications Home Medications Medication Instructions Recorded Confirmed Last Taken clonazepam 0.5 mg PO TID PRN #0 06/22/14 09/30/19 09/29/19 21:00 famotidine [Pepcid] 40 mg PO BID #0 tab 04/15/17 09/30/19 09/29/19 21:00 escitalopram oxalate [Lexapro] 20 mg PO HS #0 tab 08/08/17 09/30/19 09/29/19 metoclopramide HCl 10 mg PO TIDM #0 tab 08/08/17 09/30/19 09/29/19 21:00 lansoprazole 30 mg PO QAM 05/26/18 09/30/19 09/29/19 multivitamin 1 tab PO QAM 09/09/18 09/30/19 09/29/19 ondansetron HCl [Zofran] 8 mg PO Q6H PRN 09/09/18 09/30/19 09/30/19 digoxin 125 mcg PO HS 02/27/19 09/30/19 09/29/19 aluminum-magnesium hydroxide 15 ml PO Q6H PRN 14 Days #30 ml 09/26/19 09/30/19 09/29/19 21:00 [MAG-AL] levothyroxine [Synthroid] 88 mcg PO DAILYBB 30 Days #30 tab 09/26/19 09/30/19 09/29/19 Active Medications Generic Name Dose Route Start Last Admin Trade Name Freq PRN Reason Stop Dose Admin Clonazepam 0.5 mg 09/30/19 17:28 10/01/19 22:03 Klonopin PO 10/30/19 17:27 0.5 mg TID PRN Administration Panic Attack(S) Digoxin 0.125 mg 09/30/19 19:00 10/01/19 19:31 Lanoxin PO 10/30/19 18:59 0.125 mg DAILY@1900 [facility] Administration Escitalopram Oxalate 20 mg 09/30/19 21:00 10/01/19 21:59 Lexapro Tab PO 10/30/19 20:59 20 mg HS [facility] Administration Heparin Sodium (Porcine) 5 ml 10/01/19 00:51 10/01/19 21:59 Heparin Sod 100 Unit/Ml Flush FLUSH 10/31/19 00:59 5 ml PRN PRN Administration Flush Famotidine 20 mg/ Syringe 5 mls @ 2.5 mls/min 09/30/19 21:00 10/02/19 08:16 IV 10/30/19 20:59 2.5 mls/min BID [facility] Administration Lansoprazole 30 mg 10/01/19 09:00 10/02/19 07:54 Prevacid PO 10/31/19 08:59 Not Given QAM [facility] Levothyroxine Sodium 88 mcg 10/01/19 06:30 10/02/19 07:54 Synthroid PO 10/31/19 06:29 Not Given DAILYBB [facility] Metoclopramide HCl 5 mg 09/30/19 21:00 10/02/19 08:16 Reglan IV 10/30/19 20:59 5 mg TID [facility] Administration Ondansetron HCl 4 mg 09/30/19 17:28 09/30/19 23:30 Zofran IV 10/30/19 17:27 4 mg Q6H PRN Administration Nausea Sucralfate 1 gm 09/30/19 21:00 10/02/19 07:54 Carafate PO 10/30/19 20:59 Not Given ACHS [facility] NPO Date Last Intake of Fluids: 10/01/19 Time Last Intake of Fluids: 22:30 Date Last Intake of Solids: 10/01/19 Time Last Intake of Solids: 17:30 Past Medical History Medical History Anemia, iron deficiency (Chronic) Anxiety (Chronic) Asthma (Chronic) COPD (chronic obstructive pulmonary disease) (Chronic) Depression (Chronic) Diverticulosis (Chronic) Frequent PVCs (Chronic) Gastroparesis (Chronic) GERD (gastroesophageal reflux disease) (Chronic) H/O irritable bowel syndrome (Chronic) HTN (hypertension) (Chronic) Hypothyroidism (Chronic) Mitral regurgitation (Chronic) "moderate per echo 09/21/15" MRSA bacteremia (Resolved) Neuropathy (Chronic) Pemphigus vulgaris Pernicious anemia (Chronic) Premature atrial contractions (Chronic) Tobacco abuse (Chronic) Past Family History Family History Mother DM type 2 (diabetes mellitus, type 2) Coronary heart disease Past Surgical History Surgical History History of bladder surgery History of laparoscopic partial gastrectomy (Resolved) History of pyloroplasty (Resolved) History of total hysterectomy (Resolved) Hx of cholecystectomy Hx of tonsillectomy (Resolved) S/P hysterectomy S/P laparoscopic sleeve gastrectomy S/P partial gastrectomy S/P repair of paraesophageal hernia "resulted in volvulus, required abdominal exploration" S/P tonsillectomy and adenoidectomy Social History Smoking Status: Current every day smoker tobacco type: cigarettes Smoking cigarettes per day: 1 pack a day (20) Do You Dip or Chew Tobacco: No Hx Alcohol Use: Yes Alcohol type: beer alcohol intake frequency: holidays/special occasions only Hx Substance Use: No substance use type: does not use Physical Exam Vital Signs Last Vital Signs Temp 36.8 C 10/02/19 10:32 Pulse 49 L 10/02/19 10:32 Resp 18 10/02/19 10:32 BP 138/88 10/02/19 10:32 Pulse Ox 98 10/02/19 10:32 Testing Laboratory Results 10/01/19 05:42 10/01/19 05:42
[2019-10-02] MEDS ORDERED: ePHEDrine sulfate 50 MG/ML AMP IV PRN (11:06)
[2019-10-02] MEDS ORDERED: ATROPINE SULFATE 0.1 MG/ML 10ML SYR IV PRN (11:06)
--- NOTE | 2019-10-02 11:08 | History & Physical Report ---
Date of Service October 02, 2019 History of Present Illness Primary Care Provider: Jaleel Coppola MD Pt much improved, without nausea or vomiting. Feels well. CV: RRR Resp: CTA Abd: soft, NT A/P: Dysphagia - plan for EGD with possible empiric dilation today. Allergies Allergy/AdvReac Type Severity Reaction Status Date / Time adhesive Allergy Mild SKIN Verified 09/30/19 08:37 IRRITATION amoxicillin AdvReac Intermediate yeast Verified 09/30/19 08:37 infection NSAIDS (Non-Steroidal AdvReac Mild indegestion Verified 09/30/19 08:37 Anti-Inflamma rofecoxib AdvReac Mild indigestion Verified 09/30/19 08:37 scopolamine AdvReac Mild rash from Verified 09/30/19 08:37 patch Home Medications Home Medications Medication Instructions Recorded Confirmed Type clonazepam 0.5 mg PO TID PRN #0 06/22/14 09/30/19 History famotidine [Pepcid] 40 mg PO BID #0 tab 04/15/17 09/30/19 History escitalopram oxalate [Lexapro] 20 mg PO HS #0 tab 08/08/17 09/30/19 History metoclopramide HCl 10 mg PO TIDM #0 tab 08/08/17 09/30/19 History lansoprazole 30 mg PO QAM 05/26/18 09/30/19 History multivitamin 1 tab PO QAM 09/09/18 09/30/19 History ondansetron HCl [Zofran] 8 mg PO Q6H PRN 09/09/18 09/30/19 History digoxin 125 mcg PO HS 02/27/19 09/30/19 History aluminum-magnesium hydroxide 15 ml PO Q6H PRN 14 Days #30 ml 09/26/19 09/30/19 Rx [MAG-AL] levothyroxine [Synthroid] 88 mcg PO DAILYBB 30 Days #30 tab 09/26/19 09/30/19 Rx Past Med/Surg History Medical History Anemia, iron deficiency (Chronic) Anxiety (Chronic) Asthma (Chronic) COPD (chronic obstructive pulmonary disease) (Chronic) Depression (Chronic) Diverticulosis (Chronic) Frequent PVCs (Chronic) Gastroparesis (Chronic) GERD (gastroesophageal reflux disease) (Chronic) H/O irritable bowel syndrome (Chronic) HTN (hypertension) (Chronic) Hypothyroidism (Chronic) Mitral regurgitation (Chronic) "moderate per echo 09/21/15" MRSA bacteremia (Resolved) Neuropathy (Chronic) Pemphigus vulgaris Pernicious anemia (Chronic) Premature atrial contractions (Chronic) Tobacco abuse (Chronic) Surgical History History of bladder surgery History of laparoscopic partial gastrectomy (Resolved) History of pyloroplasty (Resolved) History of total hysterectomy (Resolved) Hx of cholecystectomy Hx of tonsillectomy (Resolved) S/P hysterectomy S/P laparoscopic sleeve gastrectomy S/P partial gastrectomy S/P repair of paraesophageal hernia "resulted in volvulus, required abdominal exploration" S/P tonsillectomy and adenoidectomy Family History Mother DM type 2 (diabetes mellitus, type 2) Coronary heart disease Social History Preferred Language: Brazilian Communication Ability: Effective Head Sawyer Required: No Beliefs That Will Affect Care: None marital status: / Current Living Situation: Family Current Living Situation Comment: lives with brother Other Information That Helps Us Care for You: No Feels Safe at Home: Yes Safety Concerns: Feels Safe At This Time Smoking Status: Current every day smoker Tobacco Type: cigarettes ; Cigarettes Per Day: 1 pack a day (20) ; Do You Dip or Chew Tobacco: No ; Second Hand Exposure: No ; Tobacco Cessation Education Requested by Patient: No Hx Alcohol Use: Yes Alcohol type: beer Alcohol Intake Frequency: Holidays/Special Occasions Hx Substance Use: No Results & Data Vital Signs (Past 12 Hours) Vital Signs Temp Pulse Pulse Resp BP Pulse Ox 10/02/19 10:32 36.8 C 49 L 18 138/88 98 10/02/19 07:18 36.7 C 61 16 120/79 98 Code Status & VTE Plan VTE Prophylaxis Plan VTE Prophylaxis will be ordered: Yes
[2019-10-02] MEDS ORDERED: LIDOCAINE HCL 2% 2 ML VIAL/AMP(20MG/ML) INFIL ONE (12:02)
[2019-10-02] MEDS ORDERED: PROPOFOL IV EMULSION 10 MG/ML 20 ML VIAL IV ONE (12:03)
[2019-10-02] MEDS ORDERED: ONDANSETRON INJ 2 MG/ML 2 ML VIAL ONE (12:19)
[2019-10-02] MEDS: HEPARIN 100 UNIT/ML 5ML FLUSH FLUSH PRN (13:16)
--- NOTE | 2019-10-02 15:02 | Anesthesiology Progress Note ---
Date of Service October 02, 2019 Anesthesia Post Procedure Vital Signs Vital Signs: Temp Pulse Pulse Pulse Resp BP Pulse Ox 10/02/19 13:19 36.5 C 50 L 16 131/87 100 10/02/19 13:07 47 L 18 120/88 100 10/02/19 12:52 49 L 18 113/75 99 10/02/19 12:37 75 16 83/51 L 99 10/02/19 10:32 36.8 C 49 L 18 138/88 98 10/02/19 07:18 36.7 C 61 16 120/79 98 10/01/19 23:02 36.8 C 49 L 16 112/77 95 10/01/19 19:31 67 10/01/19 19:30 67 10/01/19 15:05 36.6 C 57 L 16 103/68 95 Pain Intensity Abdomen: Pain Intensity: 7 Transfer of Care Handoff Completed per policy Notes Mental Status: alert / awake / arousable Patient Amnestic to Procedure: Yes Nausea / Vomiting: adequately controlled Pain: adequately controlled Airway Patency, RR, SpO2: stable & adequate BP & HR: stable & adequate Hydration State: stable & adequate Anesthetic Complications: no major complications apparent and Pt Satisfied with anesthetic care
[2019-10-02] MEDS ORDERED: POTASSIUM CHLORIDE 20 MEQ TABCR PO STA (16:49)
--- NOTE | 2019-10-02 17:10 | Discharge Summary ---
Date of Service October 02, 2019 Admission HPI Per Admitting Provider This is a 59-year-old female who has significant past medical history of gastroparesis, history of paraesophageal hernia repair and partial gastrectomy, IBS-D, COPD, hypothyroidism, tobacco abuse, GERD, chronic anemia, depression with anxiety, history of PVC/PAC who presents to [facility] ED secondary to intractable nausea and dry heaving x1 day. She elicits she woke up at approximately 5 AM secondary to severe nausea and dry heaving. She is unable to vomit but feels if she would this may alleviate her symptoms. She also elicits to epigastric abdominal pain that radiates to her back. Pain comes and goes, nothing makes better or worse, currently rated 6/10. Since arrival to ED her dry heaving has improved but she still feels significantly nauseous. Over the past several weeks she states she has been unable to eat anything, only able to tolerate liquids. She feels when she eats anything solid it gets stuck, but she does not vomit up any solid food. Overall she has been dealing with above symptoms since having surgery back in 2011. She does have a port in place in which she is to receive monthly EMEND injections but she states she has been unable to get the secondary to not having transportation. Of significance patient recently admitted 09/24 to 09/[address] Marshall secondary to similar symptoms with abdominal pain and intractable nausea. CT scan abdomen pelvis concerning for questionable colitis and it was also felt that she had a flare of her gastroparesis. During hospitalization she did try Maalox and Carafate which did seem to improve symptoms. At that time she did refuse GI evaluation. She was unable to get to pharmacy to product picker her prescriptions and therefore has not taken these. She denies any fever, chills, sweats, lightheadedness, dizziness, syncope, chest pain, shortness of breath, russell emesis, hematemesis, constipation, melena, hematochezia, dysuria, increased urgency or frequency with urination. She does chronically have diarrhea secondary to IBS. "Is there anything I can take for this?" Last bowel movement was this morning, russell diarrhea. This is at times she is unable to control her bowel habits. She denies any significant weight loss despite only able to tolerate liquids. She admits to be compliant with her medications, but did not take any this morning secondary to ill feeling. In ED lab work significant for chronic anemia H&H 10.6 and 33.0, WBC 6.18, platelet 215, CMP relatively unremarkable and lipase WNL. Chest x-ray and KUB without acute abnormality. In ED she received IV antiemetics, IV Pepcid, IVF and IV Dilaudid with minimal relief. Dry heaving has improved however intractable nausea still present. Admission Exam Per Admitting Provider Constitutional: WD/WN, chronically ill appearing, vitals as above, NAD, sitting up in bed, pleasant, conversing easily Head: Normocephalic, Atraumatic Eyes: PERRL, conjunctivae normal, anicteric sclerae ENMT: external ear and nose normal, oropharynx dry mucous membranes Neck: trachea midline, no thyromegaly normal visual inspection Respiratory: normal respiratory effort, lungs clear to auscultation, no wheeze, rales, rhonchi. Normal insp/exp effort, no accessory muscle use Cardiovascular: RRR, no murmur, no edema Vessels: no JVD or carotid bruit , A port in place Chest: normal inspection of chest Abdomen: +BS, hypoactive, soft, tender to palpation in epigastrum but no rebound, guarding, rigidity, no hepatosplenomegaly Musculoskeletal: no cyanosis or clubbing, extremities motor strength 5/5 Skin: no rashes, warm and dry normal turgor Neurologic: PERRL, EOMI, accommodation nl, no face palsy, no dysarthria CN's II-XI intact bilaterally and moves all extremities Psychiatric: A+Ox3, euthymic affect Lymphatic: no cervical or axillary lymphadenopathy : deferred Principal Diagnosis Intractable nausea and vomiting due to gastroparesis and hiatal hernia Discharge Exam Constitutional: elderly female sitting up in bed in NAD Head: Normocephalic, Atraumatic Eyes: PERRL, EOMI, conjunctivae normal, anicteric sclerae ENMT: external ear and nose normal, oropharynx dry mucous membranes Neck: trachea midline, no thyromegaly normal visual inspection Respiratory: normal respiratory effort, lungs clear to auscultation, no wheeze, rales, rhonchi. Normal insp/exp effort, no accessory muscle use Cardiovascular: RRR, no murmur, no edema Vessels: no JVD or carotid bruit Chest: A port in place - RU chest Abdomen: +BS, soft, nontender to palpation, nondistended, no guarding Musculoskeletal: no cyanosis or clubbing, extremities motor strength 5/5, moves all 4 extremities spontaneously Skin: no rashes, warm and dry normal turgor Neurologic: PERRL, EOMI, accommodation nl, no face palsy, no dysarthria CN's II-XI intact bilaterally and moves all extremities Psychiatric: A+Ox3, euthymic affect Discharge Data Allergies Allergy/AdvReac Type Severity Reaction Status Date / Time adhesive Allergy Mild SKIN Verified 09/30/19 08:37 IRRITATION amoxicillin AdvReac Intermediate yeast Verified 09/30/19 08:37 infection NSAIDS (Non-Steroidal AdvReac Mild indegestion Verified 09/30/19 08:37 Anti-Inflamma rofecoxib AdvReac Mild indigestion Verified 09/30/19 08:37 scopolamine AdvReac Mild rash from Verified 09/30/19 08:37 patch Consultations 09/30/19 10:59 ED Decision to Admit Stat 09/30/19 11:44 Consult Gastroenterology Routine 09/30/19 17:28 Consult Case Management - Discharge Planning Routine Procedures Performed Operation Date: 10/01/19 16:00 <No data on this case meets the specified criteria> Operation Date: 10/02/19 16:00 Actual Procedures p EGD Biopsy Ray - Silvia Ridley Operation Date: 10/02/19 16:00 <No data on this case meets the specified criteria> Hospital Course (1) Intractable nausea and vomiting: (2) Gastroparesis: (3) Abdominal pain: This is a 59-year-old female who has significant past medical history of chronic gastroparesis, history of paraesophageal hernia repair and partial gastrectomy, IBS-D, COPD, hypothyroidism, tobacco abuse, GERD, chronic anemia, depression with anxiety, history of PVC/PAC who presents to [facility] ED secondary to intractable nausea and dry heaving x1 day. - admitted to med/surg - GI consulted - now s/p EGD today 10/02, showed small hiatal hernia, plan for poss. [facility] as outpt - cont.home Pepcid - cont. home Carafate prn - continue home reglan - prn zofran - currently says she feels well again Pt takes Emend monthly IV - recently received during recent admission on 09/24/2019 (4) Depression: Continue escitalopram Feels more depressed secondary to decreased quality of life due to inability to eat and intractable nausea and dry heaves (5) Anxiety: Continue Klonopin as needed (6) COPD (chronic obstructive pulmonary disease): No acute exacerbation Not on any long-term or short-term inhalers (7) Frequent PVCs: continue digoxin (8) Tobacco abuse: Current smoking cessation Patient declines nicotine patch (9) Hypothyroidism: Continue levothyroxine Recent increase to 88 mcg daily (10) Anemia, iron deficiency: Chronic anemia H&H stable at 10.6 and 33.0 on admission - now above 9, likely dilutional from IVF Normocytic normochromic - Monitor (11) DVT prophylaxis: SCD/TEDS Disposition: med/surg Follow up: PCP Dr. Coppola upon discharge Total Time Total Time Spent Total Time Spent (In Minutes): 35 Total Time Includes: Examination of the Patient, Discharge Planning, Medication Reconciliation and Communication With Other Providers Discharge Plan Discharge Items Patient Disposition: Home - Self-Care Reason For Visit: INTRACTABLE N/V,GASTROPARESIS Discharge Diagnosis: Intractable nausea and vomiting due to gastroparesis and hiatal hernia Condition on Discharge: Good Activity: Resume your previous activity Activity Comment: as tolerated, pace yourself, ask for help as needed Non-emergency contact: Primary Care Provider and Executive Office Manager Call non-emergency contact if: you have any medication questions and your symptoms worsen Follow-up/Referrals: Jaleel Coppola MD [Primary Care Provider] - Diet: Regular Diet Comment: eat small portions at a time Addtl Attending Provider Instructions: Per gastroenterology service recommendations, you will need to follow up with them for further studies. You will be contacted about the appointment. You should also follow up with your primary care doctor in1 week. In about 4 weeks your thyroid labs (TSH) should be re-checked as the dose of levothyroxine medication was changed during your previous admission recently. Pending Studies at Discharge: No Stand-Alone Forms: My [employer], Smoking Cessation Medications and DC Order Prescriptions: New sucralfate [Carafate] 1 gram tablet 1 gm PO BID PRN (Reason: dyspepsia) 7 Days Qty: 14 RF: 0 metoclopramide HCl 5 mg tablet 5 mg PO DAILY PRN (Reason: nausea and vomiting) 7 Days Qty: 7 RF: 0 Continued clonazepam 0.5 mg Tablet 0.5 mg PO TID PRN (Reason: Panic Attack(S)) Qty: 0 RF: 0 famotidine [Pepcid] 40 mg Tablet 40 mg PO BID Qty: 0 RF: 0 escitalopram oxalate [Lexapro] 20 mg Tablet 20 mg PO HS Qty: 0 RF: 0 lansoprazole 30 mg Capsule,Delayed Release(Dr/Ec) 30 mg PO QAM RF: 0 multivitamin Tablet 1 tab PO QAM RF: 0 ondansetron HCl [Zofran] 8 mg Tablet 8 mg PO Q6H PRN (Reason: Nausea) RF: 0 MAG-AL 200-200 mg/5 mL Suspension 15 ml PO Q6H PRN (Reason: dyspepsia) 14 Days Qty: 30 RF: 0 levothyroxine [Synthroid] 88 mcg Tablet 88 mcg PO DAILYBB 30 Days Qty: 30 RF: 0 digoxin 125 mcg tablet 125 mcg PO HS RF: 0 Changed metoclopramide HCl 10 mg Tablet 10 mg PO TIDM PRN (Reason: nausea and vomiting) 5 Days Qty: 14 RF: 0 Discharge Orders: Discharge Order (Routine); Ordered 10/02/19 Ordered By: Gaetano Marshall Admission Data Admit Date/Time: 10/01/19 14:43 Attending Provider: Gaetano Marshall Admit Provider: Nena Aguilar Primary Care Provider: Jaleel Coppola Other Providers: Nena Aguilar ; Silvia Ridley Other Interventions: Discharge Summary Assessment (RN) Last Done: 10/02/19 17:36 DC Date/Time DO NOT enter until pt leaves facility: 10/02/19 19:33
[2019-10-02] MEDS: DIGOXIN 0.125 MG TAB PO SCH (19:19)
--- NOTE | 2019-10-03 12:40 | GI REPORT ---
Patient Name: Anne Delarosa Procedure Date: 10/02/2019 12:07 PM Date of : 1960 Admit Type: Inpatient Age: 59 Gender: Female Attending MD: Silvia Ridley MD Procedure: Upper GI endoscopy Providers: Silvia Ridley MD Referring MD: Gaetano Marshall Md Indications: Dysphagia Medicines: See the Anesthesia note for documentation of the administered medications Complications: No immediate complications. Estimated Blood Loss: Estimated blood loss: none. Procedure: Pre-Anesthesia Assessment: - ASA Grade Assessment: III - A patient with severe systemic disease. After obtaining informed consent, the endoscope was passed under direct vision. Throughout the procedure, the patient's blood pressure, pulse, and oxygen saturations were monitored continuously. The Endoscope was introduced through the mouth, and advanced to the second part of duodenum. The upper GI endoscopy was accomplished without difficulty. The patient tolerated the procedure well. Findings: The esophagus was mildly tortuous. The GE junction was at 38 cm. There was bile reflux noted during the procedure. There was no evidence of esophageal obstruction. There was a small hiatal hernia. There was suture material and multiple inflammatory nodules in the proximal stomach. There was deformity of the stomach; the stomach was otherwise normal. There was a large duodenal diverticulum in the second portion of the duodenum; the duodenum was otherwise normal. A TTS balloon was inflated to 16 mm over the GE junction with no trauma and no resistance to passage of the balloon. Recommendation: - Discharge patient to floor. OK for d/c home. Consider [facility] as outpt. Silvia Ridley M.D. Silvia Ridley MD 10/03/2019 12:40:18 PM This report has been signed electronically. Note Initiated On: 10/02/2019 12:07 PM Number of Addenda: 0 I attest to the content of the Intraoperative Record and orders documented therein, exceptions below {[id number]}
== END 2019-10-02 19:33 | disposition home or self-care (01) | DRG 392 ==
LOC: ED 08:09 → 3W 08:09 → SUATTDRO 11:44 → 3W 15:38

== ENCOUNTER 2019-12-02 15:04 | Observation (INO) ==
[2019-12-02] MEDS ORDERED: DiphenhydrAMINE 12.5 MG in SYRINGE 0 ML IV STA (15:54)
[2019-12-02] MEDS ORDERED: METOCLOPRAMIDE HCL INJ 5 MG/ML 2 ML VIAL IV STA (15:54)
[2019-12-02] MEDS ORDERED: SODIUM CHLORIDE 0.9% 1000ML 1,000 ML IV SCH (16:00)
[2019-12-02 16:08] LABS: Basophils # (auto) 0.02 K/uL (0-0.2); Basophils % (auto) 0.3 %; Eosinophils # (auto) 0.16 K/uL (0-0.5); Eosinophils % (auto) 2.7 %; Hemoglobin 10.1 g/dL (12.0-16.0); Immature Granulocytes # (auto) 0.01 K/uL (0.00-0.02); Immature Granulocytes % (auto) 0.2 %; Lymphocytes # (auto) 2.31 K/uL (1.2-3.4); Lymphocytes % (auto) 38.6 %; Mean Corpuscular Hgb Conc 31.6 g/dL (32-36); Mean Corpuscular Volume 79.2 fL (80-100); Mean Platelet Volume 9.3 fL (7.4-10.4); Monocytes # (auto) 0.39 K/uL (0.11-0.59); Monocytes % (auto) 6.5 %; Neutrophils # (auto) 3.09 K/uL (1.4-6.5); Neutrophils % (auto) 51.7 %; Platelet Count 299 K/uL (130-400); RDW Coefficient of Variation 17.6 % (11.5-14.5); RDW Standard Deviation 50.6 fL (36.4-46.3); Red Blood Count 4.04 M/uL (4.2-5.4); White Blood Count 5.98 K/uL (4.8-10.8)
[2019-12-02 16:16] LABS: Alanine Aminotransferase 13 U/L (12-78); Albumin Level 2.9 gm/dl (3.4-5.0); Amylase 62 U/L (25-115); Aspartate Aminotransferase 18 U/L (15-37); BUN Creatinine Ratio 7.4 (10-20); Blood Urea Nitrogen 7 mg/dl (7-18); Calcium 8.4 mg/dl (8.5-10.1); Carbon Dioxide 20 mmol/L (21-32); Chloride 115 mmol/L (98-107); Est GFR (African American) 70.4; Est GFR (Non-African American) 60.8; Glucose 90 mg/dl (70-99); Sodium 142 mmol/L (136-145)
[2019-12-02 16:27] LABS: Albumin Globulin Ratio 0.9 (0.9-2); Alkaline Phosphatase 93 U/L (45-117); Bilirubin,Total 0.4 mg/dl (0.2-1); Globulin 3.4 gm/dl (2.5-4.0); Total Protein 6.3 gm/dl (6.4-8.2); Troponin I < 0.015 ng/ml (0-0.045)
--- NOTE | 2019-12-02 16:27 | XRay Report ---
XR chest 1V portable HISTORY: 59 years-old Female weakness acute weakness COMPARISON: Chest radiograph 11/30/2019, CT abdomen pelvis 11/09/2019 TECHNIQUE: Portable AP view of the chest FINDINGS: Cardiac silhouette is enlarged, unchanged. Radiodense focus adjacent to the gastroesophageal junction is unchanged. Right pectoral [id number]-Ezol catheter appears to be stable. No pneumothorax, pleural e ffusion, overt pulmonary edema or airspace consolidation typical for pneumonia. Unchanged mild blunti ng of the right costophrenic angle. Retrocardiac opacity may correlate with previously noted asymmetr ic left hemidiaphragmatic elevation with adjacent postoperative changes. Degenerative changes of the shoulders and spine. IMPRESSION: No acute process. ACT 112: Negative or not required by law. The above report was generated using voice recognition software. It may contain grammatical, syntax o r spelling errors. Electronically signed by: Chaz Reis M.D. 12/02/2019 4:26 PM
[2019-12-02 16:40] LABS: T4 Free Thyroxine 0.66 ng/dl (0.8-1.6)
[2019-12-02] MEDS: HYDROmorphone INJ 0.5 MG/0.5 ML SYR IV PRN ×3 (16:46→23:43)
[2019-12-02] MEDS ORDERED: DiphenhydrAMINE HCL 50 MG/ML VIAL ONE (16:56)
[2019-12-02] MEDS ORDERED: IOVERSOL 100ml IV PRN (17:03)
--- NOTE | 2019-12-02 17:15 | Electrocardiogram Report ---
Test Reason : Blood Pressure : / mmHG Vent. Rate : 079 BPM Atrial Rate : 079 BPM P-R Int : 142 ms QRS Dur : 078 ms QT Int : 404 ms P-R-T Axes : 036 003 -16 degrees QTc Int : 463 ms Normal sinus rhythm Nonspecific T wave abnormality Abnormal ECG When compared with ECG of 30-NOV-2019 15:34, No significant change was found Confirmed by Long Gary ([id number]) on 12/02/2019 5:14:58 PM Referred By: Confirmed By:Long Gary
--- NOTE | 2019-12-02 17:19 | CT Scan Report ---
CT abd pelvis IV con only CLINICAL HISTORY: 59 years-old Female presenting with upper abd pain, vomiting. TECHNIQUE: Multidetector CT of the abdomen and pelvis was performed after the administration of intra venous contrast. IV contrast: 94 mL of Optiray 320. One or more dose lowering techniques were used co nsistent with the principles of ALARA (as low as reasonably achievable), including automatic exposure control, mA or kV adjustment to individual patient size, and/or use of iterative reconstruction. COMPARISON: 11/09/2019. CT DOSE (mGy.cm): The estimated cumulative dose is 275.28 mGy.cm. FINDINGS: Machine Iii Coremaker topogram: Contrast projects over the gastroesophageal junction. Cholecystectomy clips. Lung bases: Normal heart size. No pericardial or pleural effusion. No focal infiltrate or nodule at t he lung bases. Liver: Normal morphology. Density suggestive of hepatic steatosis. No focal lesion. Patent hepatic va sculature. Biliary: Mild biliary ductal prominence likely a reservoir effect in the post cholecystectomy state. Gallbladder surgically absent. Pancreas: Mild parenchymal atrophy. Mild prominence of the pancreatic duct. This is unchanged. Spleen: Normal. Splenule noted. Adrenal glands: Stable 2 cm nodule in the right adrenal gland, very likely benign adenoma though inde terminate on this contrast-enhanced study. Left adrenal gland normal. Kidneys and ureters: Cortical thinning suggested in the left kidney to a mild degree, similar to prio r. Subcentimeter hypodensities too small to characterize but likely cysts. Duplicated right renal col lecting system. No hydronephrosis. Ureters nondistended. No nephrolithiasis. Bladder: Normal. Pelvic organs: Uterus surgically absent. No adnexal masses. Bowel: Mild diverticulosis scattered throughout the colon. No convincing evidence of pericolonic infl ammatory change. Normal appendix. No bowel obstruction. Postsurgical changes of the stomach with anna jacqueline sleeve procedure suspected. Stable appearance of the contrast at the gastroesophageal junction po tentially from prior fundoplication. Peritoneal cavity: No free fluid or intraperitoneal gas. Lymph nodes: No enlarged lymph nodes in the abdomen or pelvis. Vasculature: Aorta and IVC patent and normal in caliber. Abdominal wall: Normal. Musculoskeletal: Normal. IMPRESSION: 1. No acute intra-abdominal pathology. 2. Stable postsurgical changes of the stomach and gastroesophageal junction. 3. Mild diverticulosis coli without evidence of diverticulitis. 4. Suspected hepatic steatosis. 5. Additional chronic findings stable from prior. ACT 112: Negative or not required by law. Electronically signed by: Jeovany Bach M.D. 12/02/2019 5:17 PM
[2019-12-02] MEDS ORDERED: ONDANSETRON INJ 2 MG/ML 2 ML VIAL IV STA (17:48)
--- NOTE | 2019-12-02 18:33 | History & Physical Report ---
Date of Service December 02, 2019 Assessment & Plan (1) Intractable vomiting with nausea: Has history of gastroparesis with recurrent admission due to nausea and vomiting Has been on monthly Emend and oral metoclopramide and Zofran Has been able to keep anything down due to nausea and epigastric discomfort for the last 2 days Admitted to medical floor for continuation of care and symptomatic management Will continue oral metoclopramide, give intravenously Zofran and Phenergan as needed IV fluid and diet as tolerated (2) Abdominal pain, epigastric: Complains of epigastric discomfort and pain due to continued nausea (3) Gastroparesis: History of gastroparesis and history of pyloroplasty EGD that was done on 02 October of this year showed possible small hiatal hernia but without any obstruction of the esophagus (4) GERD (gastroesophageal reflux disease): Has been on PPI and H2 lauren We will continue (5) H/O irritable bowel syndrome: Mostly diarrhea predominant IBS (6) Depression: No acute anxiety Citalopram has been decreased to 10 mg since last admission (7) COPD (chronic obstructive pulmonary disease): No wheezing and/or shortness of breath (8) Hypothyroidism: Continue supplement (9) Paroxysmal atrial fibrillation: Now in sinus rhythm Not for any anticoagulation as per prior suggestion DVT prophylaxis Heparin subcu CODE STATUS DNR/DNI-discussed with the patient History of Present Illness Chief Complaint: Intractable nausea Primary Care Provider: Jaleel Coppola MD She is a 59-year-old female with significant past medical history including severe gastroparesis requiring recurrent hospital admission with nausea and vomiting with history of pyloroplasty, hypertension, GERD, irritable bowel syndrome, anxiety/depression, COPD, hypothyroidism and paroxysmal atrial fibrillation not on any anticoagulation apparently was sent in home from ER following intractable nausea on eighth of this month. She has been complaining of ongoing nausea with epigastric discomfort and burning associated with ongoing chronic diarrhea. She could not keep anything down due to nausea and epigastric discomfort. She complained to have numbness and pain involving the left jaw and left shoulder and numbness and tingling involving all of the extremities. She has chronic diarrhea and has had about 4 bowel movements since this morning and she denies any problem with her urine. Denies any weakness involving any side in particular. She was hemodynamically stable in the emergency room with fairly unremarkable electrolytes and CAT scan of the abdomen and pelvis. Given her ongoing nausea with epigastric discomfort and not being able to keep anything down, she was admitted to the medical floor to control her symptoms. Allergies Allergy/AdvReac Type Severity Reaction Status Date / Time adhesive Allergy Mild SKIN Verified 11/30/19 15:35 IRRITATION amoxicillin AdvReac Intermediate yeast Verified 11/30/19 15:35 infection NSAIDS (Non-Steroidal AdvReac Mild indegestion Verified 11/30/19 15:35 Anti-Inflamma rofecoxib AdvReac Mild indigestion Verified 11/30/19 15:35 scopolamine AdvReac Mild rash from Verified 11/30/19 15:35 patch Home Medications Home Medications Medication Instructions Recorded Confirmed Type clonazepam 0.5 mg PO TID PRN #0 06/22/14 12/02/19 History famotidine [Pepcid] 40 mg PO BID #0 tab 04/15/17 12/02/19 History lansoprazole 30 mg PO QAM 05/26/18 12/02/19 History multivitamin 1 tab PO QAM 09/09/18 12/02/19 History ondansetron HCl [Zofran] 8 mg PO Q6H PRN 09/09/18 12/02/19 History levothyroxine [Synthroid] 88 mcg PO DAILY 11/09/19 12/02/19 History metoclopramide HCl 10 mg PO TIDM 11/09/19 12/02/19 History escitalopram oxalate [Lexapro] 10 mg PO HS #0 tab 11/12/19 12/02/19 Rx metoprolol succinate 12.5 mg PO BID #30 tab 11/12/19 12/02/19 Rx acetaminophen [Tylenol Extra 1,000 mg PO Q6H PRN 12/02/19 12/02/19 History Strength] Past Med/Surg History Social History Preferred Language: [place] Communication Ability: Effective 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 Beliefs That Will Affect Care: None marital status: / Current Living Situation: Alone Current Living Situation Comment: lives with brother Feels Safe at Home: Yes Smoking Status: Current every day smoker Tobacco Type: cigarettes ; Cigarettes Per Day: 20 ; Second Hand Exposure: No ; Hx Alcohol Use: Yes Alcohol type: beer Alcohol Intake Frequency: Weekly Alcohol Intake Frequency Comment: 3-4 beers/week Hx Substance Use: No Review of Systems Review of Systems: All systems reviewed & are unremarkable except as noted in HPI & below Physical Exam Physical Exam: Lying in bed comfortably a little anxious Constitutional: well developed and well nourished; no acute distress and not ill appearing Eyes: PERRL, conjunctivae normal, anicteric sclerae ENMT: external ear and nose normal, oropharynx normal Neck: trachea midline, no thyromegaly Respiratory: normal respiratory effort; no respiratory distress Auscultation: lungs clear to auscultation bilaterally and + crackles Cardiovascular: Rate/Rhythm: regular rate and regular rhythm Heart Sounds: no murmur Gastrointestinal (Abdomen): Inspection/Auscultation: abdomen normal to inspection and normal bowel sounds Percussion/Palpation: + abdomen tender (Minimally tender epigastrium) and abdomen soft Musculoskeletal: No acute arthritis involving any joint Neurologic: Alert, awake and oriented x3. Generally weak but no focal neuro deficit Lymphatic: no cervical or axillary lymphadenopathy Results & Data Vital Signs (Past 12 Hours) Vital Signs Temp Pulse Resp BP Pulse Ox 12/02/19 17:31 69 22 98 12/02/19 17:30 69 20 105/78 95 12/02/19 17:13 74 19 114/74 100 12/02/19 17:12 70 12 12/02/19 16:58 75 18 115/79 98 12/02/19 16:48 98 12/02/19 16:30 73 17 99 12/02/19 16:00 75 18 99 12/02/19 15:34 76 19 98 12/02/19 15:32 76 16 104/71 97 12/02/19 15:12 37.1 C 82 18 103/63 98 Laboratory Results Short CBC 12/02/19 Range/Units 15:55 WBC 5.98 (4.8-10.8) K/uL Hgb 10.1 L (12.0-16.0) g/dL Hct 32.0 L (37-47) % Plt Count 299 (130-400) K/uL BMP 12/02/19 15:55 Sodium 142 Potassium 4.0 Chloride 115 H Carbon Dioxide 20 L BUN 7 Creatinine 1.00 Glucose 90 Calcium 8.4 L Cardiac Enzymes 12/02/19 Range/Units 15:55 Troponin I < 0.015 (0-0.045) ng/ml Liver Function 12/02/19 Range/Units 15:55 Total Bilirubin 0.4 (0.2-1) mg/dl AST 18 (15-37) U/L ALT 13 (12-78) U/L Alkaline Phosphatase 93 (45-117) U/L Albumin 2.9 L (3.4-5.0) gm/dl Medications Administered Current Inpatient Medications Heparin Sodium (Porcine) (Heparin Sodium (Porcine)) 5,000 units SQ Q12 RUSSELL Stop: 01/01/20 20:59 Hydromorphone HCl (Dilaudid) 0.5 mg IV Q15M PRN PRN Reason: Pain Stop: 12/16/19 15:53 Last Admin: 12/02/19 16:46 Dose: 0.5 mg Documented by: Sodium Chloride (Nss 1000ml) 1,000 mls @ 125 mls/hr IV .Q8H RUSSELL Stop: 12/02/19 23:59 Last Admin: 12/02/19 16:46 Dose: 125 mls/hr Documented by: Promethazine HCl 12.5 mg/ (Sodium Chloride) 50.5 mls @ 202 mls/hr IV Q6H PRN PRN Reason: Nausea And Vomiting Stop: 01/01/20 18:17 Ioversol (Optiray 320 100ml) 94 ml IV ONCE PRN PRN Reason: Interaction Checking Stop: 12/06/19 17:02 Last Admin: 12/02/19 17:04 Dose: 94 ml Documented by: Ondansetron HCl (Zofran) 4 mg IV Q6H PRN PRN Reason: Nausea Stop: 01/01/20 18:17 Code Status & VTE Plan VTE Prophylaxis Plan VTE Prophylaxis will be ordered: Yes (1) Depression Depression Type: unspecified Qualified Code(s): F32.9 - Major depressive disorder, single episode, unspecified (2) Hypothyroidism Hypothyroidism type: acquired Qualified Code(s): E03.9 - Hypothyroidism, unspecified (3) GERD (gastroesophageal reflux disease) Esophagitis presence: with esophagitis Qualified Code(s): K21.0 - Gastro-e sophageal reflux disease with esophagitis
[2019-12-02] MEDS ORDERED: clonazePAM 0.5 MG TAB PO PRN (19:41)
[2019-12-02] MEDS: SODIUM CHLORIDE 0.9% 1000ML 1,000 ML IV SCH (19:57)
--- NOTE | 2019-12-02 20:28 | Emergency Department Note ---
Entered by Jose Antonio Larose acting as a scribe for Cyril Ha MD ED Provider Note CHIEF COMPLAINT: abdominal pain HISTORY OF PRESENT ILLNESS: The patient is a 59 year old F who presents to the Emergency Room with complaints of worsening abdominal pain that started 2 days ago. The patient states that her abdominal pain is located in her epigastrium. She notes that her abdominal pain radiates to her back. She states that she is currently experiencing nausea, vomiting, and numbness. She described her vomiting as dry heaving. She adds that her numbness is located in her fingertips, feet, and the left-side of her face. She states that eating worsens her symptoms. She adds that she has a history of gastroparesis. She notes that she regularly sees her GI specialist, Dr. Ridley. She states that Dr. Ridley has her medicated on Prevacid, Pepcid, Reglan and Zofran. She adds that these medications are not helping relieve her symptoms. She notes that she has been admitted to the hospital, in the past, due to these issues. She states that she has had hiatal hernia surgery in the past. She adds that after the surgery, she was home for a day before checking back into the ED. She notes that she was transferred to [place], [place], where she had emergent surgery to correct complications from her previous surgery. She adds that she was placed on a gastric sleeve. She states that she also has a port in place due to bad veins. She notes that she also has a history of a cholecystectomy. Pt denies LOC, headache, fevers, chills, diaphoresis, visual changes, neck pain, chest pain, breathing difficulties, melena, hematochezia, urinary symptoms, weakness, lymphadenopathy, rash, or other complaints. A review of the patient's records show that the patient was seen in the ED, 2 days ago. The records add that the patient had a negative work-up including a negative troponin. The records state that the patient was referred to her PCP. REVIEW OF SYSTEMS: See HPI for pertinent positives and negatives. A total of ten systems were reviewed and were otherwise negative. PMHx/PSHx: anxiety, COPD, depression, GERD, IBS, HTN, hypothyroidism, hiatal hernia, gastric sleeve, cholecystectomy, gastroparesis SOCIAL HISTORY: Patient lives at home. Patient is a current smoker. Patient drinks alcohol. PHYSICAL EXAM: GENERAL: Awake, alert, uncomfortable-appearing, actively dry heaving HENT: Normocephalic, atraumatic. Oropharynx unremarkable. EYES: PERRL. Normal conjunctiva. Sclera non-icteric. NECK: Inspection normal. Non-tender. Supple. No nuchal rigidity. FROM. No masses. RESPIRATORY: Clear to auscultation. No wheezes. No rales. Normal respiratory effort. CARDIAC: Normal rate. Normal rhythm. No murmurs. No rubs. Extremities warm and well perfused. Pulses equal. No JVD. GI: Soft, non-distended. Epigastric tenderness to palpation. No rebound or guarding. No masses. RECTAL: Deferred. MUSCULOSKELETAL: Atraumatic. Chest examination reveals no tenderness. The back is symmetrical on inspection without obvious abnormality. There is no CVA tenderness to palpation. No joint edema. LOWER EXTREMITIES: Calves are equal size bilaterally and non-tender. No edema. No discoloration. NEURO: Normal sensorium. No sensory or motor deficits noted. SKIN: No rash or jaundice noted. EMERGENCY DEPARTMENT COURSE: 155: The patient was evaluated in room B9, and a complete history and physical examination were performed. 1744: I updated the patient on her test results and the plan for admission. She states that her pain is better. She notes that she still has moderate nausea. I am giving the patient Zofran. 1751: I reviewed the patient's case with Dr. Malhotra, [facility] Hospitalist. He will evaluate the patient for further management. MEDICAL DECISION MAKING: Continuous Cardiac Monitoring: An order was placed for continuous cardiac monitoring. The monitor shows a rate of 69 with normal sinus rhythm. B9 Triage Nursing notes reviewed and agree them. The patient's history was concerning for nausea, vomiting, upper abdominal pain and history of gastroparesis Differential diagnosis: Etiologies such as dehydration, electrolyte abnormality, exacerbation of gastroparesis, cardiac sources, C. difficile infection, gastroenteritis, food borne illness, infections, appendicitis, diverticulitis, inflammatory bowel disease, GI bleed, biliary pathology, as well as others were entertained. Physical examination findings: As above. Epigastric abdominal tenderness. ER treatment provided: IV hydration with NSS. IV Dilaudid IV Reglan IV Benadryl On reassessment the patient felt marginally better. Her pain was controlled but she was still very nauseated and dry heaving. IV Zofran diagnostics interpretation by me: ECG: No ischemia or ectopy. No dysrhythmia. Imaging studies: CT scan of the abdomen pelvis was performed and revealed no evidence of acute pathology. The patient has a long history of gastroparesis and intractable nausea and vomi ting. Unfortunately despite her medications at home she is still having symptoms. She was treated as above and is still symptomatic. Her work-up on previous ER visit did not have any significant issues noted. Due to her symptomatology the patient will need further IV treatment. Consultation was made with internal medicine. The case was discussed. The patient was evaluated in the ER for further management. IMPRESSION: Intractable nausea and vomiting, epigastric abdominal pain PLAN: Admitted as inpatient. The scribe's documentation has been prepared under my direction and personally reviewed by me in its entirety. I confirm that the note above accurately reflects all work, treatment, procedures, and medical decision making performed by me. Impression & Plan Intractable vomiting with nausea, Abdominal pain, epigastric Past Med/Surg History Social History Preferred Language: Kinyarwanda Communication Ability: Effective Travel Physical Therapist Required: No Beliefs That Will Affect Care: None marital status: / Current Living Situation: Family Current Living Situation Comment: brother Feels Safe at Home: Yes Smoking Status: Current every day smoker Tobacco Type: cigarettes ; Cigarettes Per Day: 20 ; Second Hand Exposure: No ; Tobacco Cessation Education Requested by Patient: No Hx Alcohol Use: Yes Alcohol type: beer Alcohol Intake Frequency: Weekly Alcohol Intake Frequency Comment: 3-4 beers/week Hx Substance Use: No Results & Data Vital Signs Vital Signs - 24 hr 12/02/19 15:12 12/02/19 15:32 12/02/19 15:34 Temperature 37.1 C Temperature Source Oral Pulse Rate 82 76 76 Pulse Rate from SpO2 Sensor 77 77 Respiratory Rate 18 16 19 Respiratory Effort / Characteristics Non-Labored Spontaneous Respiratory Depth Normal Blood Pressure 103/63 104/71 Blood Pressure Mean 76 82 Blood Pressure Position Sitting Pulse Oximetry 98 97 98 Oxygen Delivery Method Room Air Sepsis Recent Fever Within 48 Hours No Sepsis New/Unexplained Change in Mental Status No Sepsis Action Taken by Nursing No Action Required 12/02/19 16:00 12/02/19 16:30 12/02/19 16:48 Temperature Temperature Source Pulse Rate 75 73 Pulse Rate from SpO2 Sensor 74 73 Respiratory Rate 18 17 Respiratory Effort / Characteristics Respiratory Depth Blood Pressure Blood Pressure Mean Blood Pressure Position Pulse Oximetry 99 99 98 Oxygen Delivery Method Room Air Sepsis Recent Fever Within 48 Hours Sepsis New/Unexplained Change in Mental Status Sepsis Action Taken by Nursing 12/02/19 16:58 12/02/19 17:12 12/02/19 17:13 Temperature Temperature Source Pulse Rate 75 70 74 Pulse Rate from SpO2 Sensor 75 74 Respiratory Rate 18 12 19 Respiratory Effort / Characteristics Respiratory Depth Blood Pressure 115/79 114/74 Blood Pressure Mean 84 79 Blood Pressure Position Pulse Oximetry 98 100 Oxygen Delivery Method Sepsis Recent Fever Within 48 Hours Sepsis New/Unexplained Change in Mental Status Sepsis Action Taken by Nursing 12/02/19 17:30 12/02/19 17:31 12/02/19 18:00 Temperature Temperature Source Pulse Rate 69 69 68 Pulse Rate from SpO2 Sensor 69 69 70 Respiratory Rate 20 22 21 Respiratory Effort / Characteristics Respiratory Depth Blood Pressure 105/78 111/72 Blood Pressure Mean 89 76 Blood Pressure Position Pulse Oximetry 95 98 99 Oxygen Delivery Method Sepsis Recent Fever Within 48 Hours Sepsis New/Unexplained Change in Mental Status Sepsis Action Taken by Nursing 12/02/19 18:01 Temperature Temperature Source Pulse Rate 70 Pulse Rate from SpO2 Sensor 72 Respiratory Rate 24 Respiratory Effort / Characteristics Respiratory Depth Blood Pressure Blood Pressure Mean Blood Pressure Position Pulse Oximetry 99 Oxygen Delivery Method Sepsis Recent Fever Within 48 Hours Sepsis New/Unexplained Change in Mental Status Sepsis Action Taken by [facility] Medications Current Medication List: was personally reviewed by me Laboratory Data Attestation: I reviewed the patient's lab results. Result diagrams: 12/02/19 15:55 12/02/19 15:55 Lab Results 12/02/19 12/02/19 Range/Units 15:55 15:55 WBC 5.98 (4.8-10.8) K/uL RBC 4.04 L (4.2-5.4) M/uL Hgb 10.1 L (12.0-16.0) g/dL Hct 32.0 L (37-47) % MCV 79.2 L (80-100) fL MCH 25.0 (25-34) pg MCHC 31.6 L (32-36) g/dL RDW Std Deviation 50.6 H (36.4-46.3) fL RDW Coeff of Ana M 17.6 H (11.5-14.5) % Plt Count 299 (130-400) K/uL MPV 9.3 (7.4-10.4) fL Immature Gran % (Auto) 0.2 % Neut % (Auto) 51.7 % Lymph % (Auto) 38.6 % Dodge % (Auto) 6.5 % Eos % (Auto) 2.7 % Baso % (Auto) 0.3 % Immature Gran # (Auto) 0.01 (0.00-0.02) K/uL Neut # (Auto) 3.09 (1.4-6.5) K/uL Lymph # (Auto) 2.31 (1.2-3.4) K/uL Dodge # (Auto) 0.39 (0.11-0.59) K/uL Eos # (Auto) 0.16 (0-0.5) K/uL Baso # (Auto) 0.02 (0-0.2) K/uL Sodium 142 (136-145) mmol/L Potassium 4.0 (3.5-5.1) mmol/L Chloride 115 H (98-107) mmol/L Carbon Dioxide 20 L (21-32) mmol/L Anion Gap 7.0 (3-11) BUN 7 (7-18) mg/dl Creatinine 1.00 (0.6-1.2) mg/dl Est Cr Clr Drug Dosing Not Reportable Est GFR ( Amer) 70.4 Est GFR (Non-Af Amer) 60.8 BUN/Creatinine Ratio 7.4 L (10-20) Glucose 90 (70-99) mg/dl Calcium 8.4 L (8.5-10.1) mg/dl Magnesium 2.0 (1.8-2.4) mg/dl Total Bilirubin 0.4 (0.2-1) mg/dl AST 18 (15-37) U/L ALT 13 (12-78) U/L Alkaline Phosphatase 93 (45-117) U/L Troponin I < 0.015 (0-0.045) ng/ml Total Protein 6.3 L (6.4-8.2) gm/dl Albumin 2.9 L (3.4-5.0) gm/dl Globulin 3.4 (2.5-4.0) gm/dl Albumin/Globulin Ratio 0.9 (0.9-2) Amylase 62 (25-115) U/L TSH 4.980 H (0.300-4.500) uIu/ml Free T4 0.66 L (0.8-1.6) ng/dl Administered Medications Hydromorphone HCl (Dilaudid) 0.5 mg IV Q15M PRN PRN Reason: Pain Stop: 12/16/19 15:53 Last Admin: 12/02/19 16:46 Dose: 0.5 mg Documented by: [id number] Sodium Chloride (Nss 1000ml) 1,000 mls @ 125 mls/hr IV .Q8H RUSSELL Stop: 12/02/19 23:59 Last Infusion: 12/02/19 20:03 Dose: 0 mls/hr Documented by: [id number] Admin: 12/02/19 16:46 Dose: 125 mls/hr Documented by: [id number] Sodium Chloride (Nss 1000ml) 1,000 mls @ 80 mls/hr IV .[id number] RUSSELL Stop: 12/04/19 08:29 Last Admin: 12/02/19 19:57 Dose: 80 mls/hr Documented by: [id number] Ioversol (Optiray 320 100ml) 94 ml IV ONCE PRN PRN Reason: Interaction Checking Stop: 12/06/19 17:02 Last Admin: 12/02/19 17:04 Dose: 94 ml Documented by: [id number] Discontinued Medications Diphenhydramine HCl (Benadryl) Confirm Administered Dose 50 mg .ROUTE .STK-MED ONE Stop: 12/02/19 16:57 Last Admin: 12/02/19 16:57 Dose: Not Given Documented by: [id number] Diphenhydramine HCl 12.5 mg/ (Syringe) 0.25 mls @ 1 mls/hr IV NOW STA Stop: 12/02/19 16:08 Last Admin: 12/02/19 16:57 Dose: 1 mls/hr Documented by: [id number] Metoclopramide HCl (Reglan) 10 mg IV NOW STA Stop: 12/02/19 15:55 Last Admin: 12/02/19 16:46 Dose: 10 mg Documented by: [id number] Ondansetron HCl (Zofran) 4 mg IV NOW STA Stop: 12/02/19 17:49 Last Admin: 12/02/19 18:34 Dose: 4 mg Documented by: [id number] Imaging Data Radiologist's Impression: Radiology results as stated below per my review and the radiologist's interpretation: CT abd pelvis IV con only CLINICAL HISTORY: 59 years-old Female presenting with upper abd pain, vomiting. TECHNIQUE: Multidetector CT of the abdomen and pelvis was performed after the administration of intravenous contrast. IV contrast: 94 mL of Optiray 320. One or more dose lowering techniques were used consistent with the principles of ALARA (as low as reasonably achievable), including automatic exposure control, mA or kV adjustment to individual patient size, and/or use of iterative recon struction. COMPARISON: 11/09/2019. CT DOSE (mGy.cm): The estimated cumulative dose is 275.28 mGy.cm. FINDINGS: Slurry Tank Tender topogram: Contrast projects over the gastroesophageal junction. Cholecystectomy clips. Lung bases: Normal heart size. No pericardial or pleural effusion. No focal infiltrate or nodule at the lung bases. Liver: Normal morphology. Density suggestive of hepatic steatosis. No focal lesion. Patent hepatic vasculature. Biliary: Mild biliary ductal prominence likely a reservoir effect in the post cholecystectomy state. Gallbladder surgically absent. Pancreas: Mild parenchymal atrophy. Mild prominence of the pancreatic duct. This is unchanged. Spleen: Normal. Splenule noted. Adrenal glands: Stable 2 cm nodule in the right adrenal gland, very likely benign adenoma though indeterminate on this contrast-enhanced study. Left adrenal gland normal. Kidneys and ureters: Cortical thinning suggested in the left kidney to a mild degree, similar to prior. Subcentimeter hypodensities too small to characterize but likely cysts. Duplicated right renal collecting system. No hydronephrosis. Ureters nondistended. No nephrolithiasis. Bladder: Normal. Pelvic organs: Uterus surgically absent. No adnexal masses. Bowel: Mild diverticulosis scattered throughout the colon. No convincing evidence of pericolonic inflammatory change. Normal appendix. No bowel obstruction. Postsurgical changes of the stomach with gastric sleeve procedure suspected. Stable appearance of the contrast at the gastroesophageal junction potentially from prior fundoplication. Peritoneal cavity: No free fluid or intraperitoneal gas. Lymph nodes: No enlarged lymph nodes in the abdomen or pelvis. Vasculature: Aorta and IVC patent and normal in caliber. Abdominal wall: Normal. Musculoskeletal: Normal. IMPRESSION: 1. No acute intra-abdominal pathology. 2. Stable postsurgical changes of the stomach and gastroesophageal junction. 3. Mild diverticulosis coli without evidence of diverticulitis. 4. Suspected hepatic steatosis. 5. Additional chronic findings stable from prior. ACT 112: Negative or not required by law. Electronically signed by: Jeovany Bach M.D. 12/02/2019 5:17 PM XR chest 1V portable HISTORY: 59 years-old Female weakness acute weakness COMPARISON: Chest radiograph 11/30/2019, CT abdomen pelvis 11/09/2019 TECHNIQUE: Portable AP view of the chest FINDINGS: Cardiac silhouette is enlarged, unchanged. Radiodense focus adjacent to the gastroesophageal junction is unchanged. Right pectoral Gfjhiy-w-Fwwn catheter appears to be stable. No pneumothorax, pleural effusion, overt pulmonary edema or airspace consolidation typical for pneumonia. Unchanged mild blunting of the right costophrenic angle. Retrocardiac opacity may correlate with previously noted asymmetric left hemidiaphragmatic elevation with adjacent postoperative changes. Degenerative changes of the shoulders and spine. IMPRESSION: No acute process. ACT 112: Negative or not required by law. The above report was generated using voice recognition software. It may contain grammatical, syntax or spelling errors. Electronically signed by: Chaz Reis M.D. 12/02/2019 4:26 PM ECG Data Attestation: I personally reviewed and interpreted this ECG as follows: Indication: + chest pain Rate (beats per minute): 79 Rhythm: normal sinus ECG Intervals/blocks: + Normal QRS ECG Lamont: + Normal ECG ST segments: + Nonspecific ST abnormalities ECG Findings: no PVCs Blood Pressure Blood Pressure Findings: Elevated blood pressure Blood Pressure Disposition: further management by hospitalist Discharge Plan Visit Data *Final* Discharge Date/Time: 12/02/19 19:00 Chief Complaint: Chest Pain Stated Complaint: CHEST PAINS AND INTO NECK, VOMITING, GASTROPARESIS ED Provider: Cyril Ha Discharge Problem: Intractable vomiting with nausea, Abdominal pain, epigastric Patient Disposition: Admitted As Inpatient Discharge Instructions Interventions: ED Discharge Assessment Last Done: 12/02/19 19:00 The scribe's documentation has been prepared under my direction and personally reviewed by me in its entirety. I confirm that the note above accurately reflects all work, treatment, procedures, and medical decision making performed by me.
[2019-12-02] MEDS: HEPARIN SOD 5,000 UNIT/0.5 ML VIAL SQ SCH (20:35)
[2019-12-02] MEDS: METOPROLOL SUCC 25MG EXT REL TAB PO SCH (20:36)
[2019-12-02] MEDS: FAMOTIDINE 40 MG TABLET PO SCH (20:36)
[2019-12-02] MEDS: ESCITALOPRAM OXALATE 10 MG TAB PO SCH (20:36)
[2019-12-02] MEDS: PROMETHAZINE HCL 12.5 MG in SODIUM CHLORIDE 0.9% 50 ML IV PRN (20:36)
[2019-12-02 20:39] LABS: Appearance Urine Clear (Clear); Bilirubin Urine Negative (Negative); Blood Urine Negative (Negative); Color Urine Yellow; Glucose Urine UA Negative (Negative); Ketones Urine Negative (Negative); Leukocyte Esterase Urine Negative (Negative); Nitrite Urine Negative (Negative); Protein Urine Negative (Negative); Specific Gravity Urine 1.035 (1.000-1.030); Urobilinogen Urine Negative (Negative)
[2019-12-02] MEDS ORDERED: ALUMINUM/MAGNESIUM/SIMETH (MAALOX MAX) 30 ML UDC PO STA (23:58)
[2019-12-03] MEDS: ONDANSETRON INJ 2 MG/ML 2 ML VIAL IV PRN ×2 (00:38→15:29)
[2019-12-03] MEDS: PROMETHAZINE HCL 12.5 MG in SODIUM CHLORIDE 0.9% 50 ML IV PRN ×3 (03:22→18:36)
[2019-12-03] MEDS: ALUMINUM/MAGNESIUM/SIMETH (MAALOX MAX) 30 ML UDC PO PRN ×2 (06:13→20:23)
[2019-12-03] MEDS: LEVOTHYROXINE SODIUM 88 MCG TABLET PO SCH (06:14)
[2019-12-03 06:27] LABS: Basophils # (auto) 0.01 K/uL (0-0.2); Basophils % (auto) 0.1 %; Eosinophils # (auto) 0.16 K/uL (0-0.5); Eosinophils % (auto) 2.2 %; Hematocrit (blood only) 27.9 % (37-47); Hemoglobin 8.8 g/dL (12.0-16.0); Immature Granulocytes # (auto) 0.01 K/uL (0.00-0.02); Immature Granulocytes % (auto) 0.1 %; Lymphocytes # (auto) 1.94 K/uL (1.2-3.4); Lymphocytes % (auto) 27.2 %; Mean Corpuscular Hemoglobin 25.5 pg (25-34); Mean Corpuscular Hgb Conc 31.5 g/dL (32-36); Mean Corpuscular Volume 80.9 fL (80-100); Mean Platelet Volume 9.1 fL (7.4-10.4); Monocytes % (auto) 5.6 %; Neutrophils % (auto) 64.8 %; Platelet Count 243 K/uL (130-400); RDW Coefficient of Variation 17.8 % (11.5-14.5); RDW Standard Deviation 51.9 fL (36.4-46.3); Red Blood Count 3.45 M/uL (4.2-5.4); White Blood Count 7.12 K/uL (4.8-10.8)
[2019-12-03 06:58] LABS: BUN Creatinine Ratio 8.4 (10-20); Calcium 7.7 mg/dl (8.5-10.1); Creatinine Clr Calc Pharmacy 57.2 ml/min; Est GFR (African American) 76.9; Est GFR (Non-African American) 66.3; Potassium 3.8 mmol/L (3.5-5.1)
[2019-12-03] MEDS: SODIUM CHLORIDE 0.9% 1000ML 1,000 ML IV SCH ×2 (07:52→20:24)
[2019-12-03] MEDS: METOPROLOL SUCC 25MG EXT REL TAB PO SCH ×2 (07:52→20:26)
[2019-12-03] MEDS: METOCLOPRAMIDE HCL 10 MG TABLET PO SCH ×3 (07:53→16:34)
[2019-12-03] MEDS: MULTIVITAMIN TAB PO SCH (07:53)
[2019-12-03] MEDS: PANTOprazole 40 MG TAB PO SCH (07:53)
[2019-12-03] MEDS: FAMOTIDINE 40 MG TABLET PO SCH ×2 (07:53→20:27)
[2019-12-03] MEDS: HEPARIN SOD 5,000 UNIT/0.5 ML VIAL SQ SCH ×2 (07:55→20:27)
--- NOTE | 2019-12-03 11:17 | Gastrointestinal Consultation ---
Date of Consultation December 03, 2019 Assessment & Plan (1) Gastroparesis: (2) History of laparoscopic partial gastrectomy: (3) H/O irritable bowel syndrome: Pt is a 59 y/o female w hx of gastroparesis, s/p paraesophageal hernia repair, sleeve gastrectomy, IBS-D who is currently admitted w nausea, poor PO intake. She overnight had received IVF hydration, antiemetics prn and feels better. Able to eat bites of solid breakfast this AM. Abd on exam non tender, soft. - She had been receiving Emend IV monthly till February 2019. Last doses 09/24/2019, and 11/09/2019. Will defer repeat at this time given symptoms not severe and managed well w current antiemetics. - Continue Zofran and Phenergran IV prn nausea - Reglan 10mg PO TID - Trial Dicyclomine 10mg BID prn diarrhea - UGI series inpt if still admitted tomorrow vs outpt if discharged today Supervising Physician Co-Signing Physician Notes I performed a history and physical examination of the patient today, including specifically on physical exam - soft abdomen. I have discussed the patient's management with the advanced practitioner. Please refer to the nurse practitioner's note for the documented findings and plan of care. Recurrent admission of exacerbation of Gastroparesis. Now symptoms resolved. Recommend close follow up in GI office to adjust her antiemetics, would defer to to consider other therapeutic modalities for her gastroparesis. Recall GI if needed. History of Present Illness Reason for Consultation: Nausea, vomiting Requesting Physician: Dr. Juliane Long Attending Physician: Dr. Lissette Juan History of Present Illness Pt is a 59 y/o female who's seen today for nausea and poor PO intake. She has hx of paraesophageal hernia s/p partial sleeve gastrectomy, gastroparesis, IBS. She's been having gastroparesis flare and receiving monthly Emend IV up till February 2019. This year received Emend IV on 09/24/2019 and 11/09/2019. At home she has Zofran 8mg q6hr prn nausea + Reglan 10mg TID. She reports yesterday she tried eating toast but then started to feel very nauseated, unable to vomit. She was then unable to eat much of anything else. She is admitted for symptomatic management and IVF hydration. She does have hx of IBS-D. Denies changes in bowel habits recently. Stools loose as baseline. Denies blood in stools. She isn't taking any antidiarrheal or antispasmodics at home. EGD 10/02/2019: - The esophagus was mildly tortuous. The GE junction was at 38 cm. There was bile reflux noted during the procedure. - There was no evidence of esophageal obstruction. - There was a small hiatal hernia. There was suture material and multiple inflammatory nodules in the proximal stomach. - There was deformity of the stomach; the stomach was otherwise normal. - There was a large duodenal diverticulum in the second portion of the duodenum; the duodenum was otherwise normal. A TTS balloon was inflated to 16 mm over the GE junction with no trauma and no resistance to passage of the balloon. She was recommended to undergo outpt upper GI series and also had been called to schedule outpt follow up appt but never called back. Allergies Allergy/AdvReac Type Severity Reaction Status Date / Time adhesive Allergy Mild SKIN Verified 11/30/19 15:35 IRRITATION amoxicillin AdvReac Intermediate yeast Verified 11/30/19 15:35 infection NSAIDS (Non-Steroidal AdvReac Mild indegestion Verified 11/30/19 15:35 Anti-Inflamma rofecoxib AdvReac Mild indigestion Verified 11/30/19 15:35 scopolamine AdvReac Mild rash from Verified 11/30/19 15:35 patch Home Medications Home Medications Medication Instructions Recorded Confirmed Type clonazepam 0.5 mg PO TID PRN #0 06/22/14 12/02/19 History famotidine [Pepcid] 40 mg PO BID #0 tab 04/15/17 12/02/19 History lansoprazole 30 mg PO QAM 05/26/18 12/02/19 History multivitamin 1 tab PO QAM 09/09/18 12/02/19 History ondansetron HCl [Zofran] 8 mg PO Q6H PRN 09/09/18 12/02/19 History levothyroxine [Synthroid] 88 mcg PO DAILY 11/09/19 12/02/19 History metoclopramide HCl 10 mg PO TIDM 11/09/19 12/02/19 History escitalopram oxalate [Lexapro] 10 mg PO HS #0 tab 11/12/19 12/02/19 Rx metoprolol succinate 12.5 mg PO BID #30 tab 11/12/19 12/02/19 Rx acetaminophen [Tylenol Extra 1,000 mg PO Q6H PRN 12/02/19 12/02/19 History Strength] Patient History Medical History Anemia, iron deficiency (Chronic) Anxiety (Chronic) Asthma (Chronic) COPD (chronic obstructive pulmonary disease) (Chronic) Depression (Chronic) Diverticulosis (Chronic) Frequent PVCs (Chronic) Gastroparesis (Chronic) GERD (gastroesophageal reflux disease) (Chronic) H/O irritable bowel syndrome (Chronic) HTN (hypertension) (Chronic) Hypothyroidism (Chronic) Mitral regurgitation (Chronic) "moderate per echo 09/21/15" MRSA bacteremia (Resolved) Neuropathy (Chronic) Pemphigus vulgaris Pernicious anemia (Chronic) Premature atrial contractions (Chronic) Tobacco abuse (Chronic) Surgical History History of bladder surgery History of laparoscopic partial gastrectomy (Resolved) History of pyloroplasty (Resolved) History of total hysterectomy (Resolved) Hx of cholecystectomy Hx of tonsillectomy (Resolved) S/P hysterectomy S/P laparoscopic sleeve gastrectomy S/P partial gastrectomy S/P repair of paraesophageal hernia "resulted in volvulus, required abdominal exploration" S/P tonsillectomy and adenoidectomy Family History Mother DM type 2 (diabetes mellitus, type 2) Coronary heart disease Social History Preferred Language: Kinyarwanda Communication Ability: Effective Guitar Maker Required: No Beliefs That Will Affect Care: None marital status: / Current Living Situation: Family Current Living Situation Comment: brother Feels Safe at Home: Yes Smoking Status: Current every day smoker Tobacco Type: cigarettes ; Cigarettes Per Day: 20 ; Second Hand Exposure: No ; Tobacco Cessation Education Requested by Patient: No Hx Alcohol Use: Yes Alcohol type: beer Alcohol Intake Frequency: Weekly Alcohol Intake Frequency Comment: 3-4 beers/week Hx Substance Use: No Review of Systems Review of Systems: All systems reviewed & are unremarkable except as noted in HPI & below Physical Exam Constitutional: WD/WN, vitals as above well groomed, cooperative and comfortable Eyes: PERRL, conjunctivae normal, anicteric sclerae ENMT: external ear and nose normal, oropharynx normal Respiratory: normal respiratory effort, lungs clear to auscultation Cardiovascular: RRR, no murmur, no edema Gastrointestinal (Abdomen): normal bowel sounds, soft, nontender, no hepatosplenomegaly Skin: no rashes, warm and dry no jaundice Neurologic: Motor/Sensory: no asterixis Psychiatric: A+Ox3, euthymic affect Lymphatic: no lymphedema Results & Data ([facility]) Vital Signs (Past 12 Hours) Vital Signs Temp Pulse Resp BP Pulse Ox 12/03/19 07:14 36.7 C 62 18 100/65 96
[2019-12-03] MEDS: DICYCLOMINE HCL 10 MG CAP PO PRN (12:55)
--- NOTE | 2019-12-03 14:29 | Hospitalist Progress Note ---
Date of Service December 03, 2019 Assessment & Plan (1) Gastroparesis: History of gastroparesis and history of pyloroplasty EGD that was done on 02 October of this year showed possible small hiatal hernia but without any obstruction of the esophagus Has history of gastroparesis with recurrent admission due to nausea and vomiting Has been on monthly Emend and oral metoclopramide and Zofran Continues to have symptoms of severe nausea with food. Cannot vomit per her report. Will continue oral metoclopramide, give intravenously Zofran and Phenergan as needed IV fluid and diet as tolerated with frequent small meals recommended. Appreciate GI assistance with case (2) GERD (gastroesophageal reflux disease): Cont protonix and pepcid per home regimen. Cont diet modifications to help heartburn symptoms and use Maalox as needed (3) H/O irritable bowel syndrome: Mostly diarrhea predominant IBS, bentyl PRN per GI team (4) Depression: Cont Lexapro 10mg daily (5) COPD (chronic obstructive pulmonary disease): No wheezing and/or shortness of breath (6) Hypothyroidism: Cont synthroid replacement per home regimen. (7) Anemia: No active bleeding or need got tranfusion at this time. will cont to monitor and review outpatient records for history of this. (8) DVT prophylaxis: Heparin DNR Dispo-to home when able to tolerate PO reliably without significant nausea. Although GI team reported to me that she was feeling better and ready to go home, I went back to see her and she reported still feeling about the same. Will cont the hospitalization. Appreciate GI involvement in the case. Juliane Long DO [facility] Hospitalist Admission and Anticipated Discharge Date Admission Date: December 02, 2019 Anticipated date of discharge: 12/07/19 Subjective 59-year-old female with chronic, persistent gastroparesis causing multiple hospitalizations presents again with intractable nausea. She states that she cannot get rid of the nausea with chest medications and is unable to vomit to feel better. Multiple therapies are in place including Protonix, Pepcid (uses AcipHex at home), Tums as needed and various antiemetics including Reglan scheduled 3 times daily. She gets monthly infusions of emend and frequently sees gastroenterology. We discussed a second opinion outside the system and she states she cannot afford that even for a one-time visit. She reports she will make due with what she has going on and the treatments currently available to her. She otherwise denies shortness of breath, chest pain. She does report +nausea despite receiving phenergan today. She reports persistent heartburn substernally despite two doses of maalox today. Review of Systems Review of Systems: All systems reviewed & are unremarkable except as noted in Subjective Physical Exam Physical Exam: CONSTITUTIONAL: WNWD, vitals as above, generally well- appearing EYES: normal conjunctivae, no scleral icterus ENT: MMM RESPIRATORY: clear to auscultation bilaterally, no crackles, rales or wheezes, normal respiratory effort CARDIOVASCULAR: regular rate and rhythm, S1 and 2 heard without murmurs, gallops or rubs, no JVD, no peripheral edema GASTROINTESTINAL: soft, nontender,nondistended, no guarding. MUSCULOSKELETAL: moves all extremities equally, head is normocephalic and atraumatic SKIN: warm and dry NEUROLOGIC: CN 2-12 grossly intact, no gross focal deficits. PSYCHIATRIC: alert cooperative and oriented Results & Data ([facility]) Vital Signs (Past 12 Hours) Vital Signs Temp Pulse Resp BP Pulse Ox 12/03/19 07:14 36.7 C 62 18 100/65 96 Laboratory Results Short CBC 12/02/19 12/03/19 Range/Units 15:55 05:44 WBC 5.98 7.12 (4.8-10.8) K/uL Hgb 10.1 L 8.8 L (12.0-16.0) g/dL Hct 32.0 L 27.9 L (37-47) % Plt Count 299 243 (130-400) K/uL BMP 12/02/19 12/03/19 15:55 05:44 Sodium 142 142 Potassium 4.0 3.8 Chloride 115 H 114 H Carbon Dioxide 20 L 25 BUN 7 8 Creatinine 1.00 0.93 Glucose 90 73 Calcium 8.4 L 7.7 L Cardiac Enzymes 12/02/19 Range/Units 15:55 Troponin I < 0.015 (0-0.045) ng/ml Liver Function 12/02/19 Range/Units 15:55 Total Bilirubin 0.4 (0.2-1) mg/dl AST 18 (15-37) U/L ALT 13 (12-78) U/L Alkaline Phosphatase 93 (45-117) U/L Albumin 2.9 L (3.4-5.0) gm/dl Urine 12/02/19 Range/Units 20:03 Urine Color Yellow Urine Appearance Clear (Clear) Urine pH 5.0 (4.5-7.5) Ur Specific Galien 1.035 H (1.000-1.030) Urine Protein Negative (Negative) Urine Glucose (UA) Negative (Negative) Diagnostic Findings CT abd pelvis IV con only CLINICAL HISTORY: 59 years-old Female presenting with upper abd pain, vomiting. TECHNIQUE: Multidetector CT of the abdomen and pelvis was performed after the administration of intravenous contrast. IV contrast: 94 mL of Optiray 320. One or more dose lowering techniques were used consistent with the principles of ALARA (as low as reasonably achievable), including automatic exposure control, mA or kV adjustment to individual patient size, and/or use of iterative reconstruction. COMPARISON: 11/09/2019. CT DOSE (mGy.cm): The estimated cumulative dose is 275.28 mGy.cm. FINDINGS: Patient Account Specialist topogram: Contrast projects over the gastroesophageal junction. Cholecystectomy clips. Lung bases: Normal heart size. No pericardial or pleural effusion. No focal infiltrate or nodule at the lung bases. Liver: Normal morphology. Density suggestive of hepatic steatosis. No focal lesion. Patent hepatic vasculature. Biliary: Mild biliary ductal prominence likely a reservoir effect in the post cholecystectomy state. Gallbladder surgically absent. Pancreas: Mild parenchymal atrophy. Mild prominence of the pancreatic duct. This is unchanged. Spleen: Normal. Splenule noted. Adrenal glands: Stable 2 cm nodule in the right adrenal gland, very likely benign adenoma though indeterminate on this contrast-enhanced study. Left adre nal gland normal. Kidneys and ureters: Cortical thinning suggested in the left kidney to a mild degree, similar to prior. Subcentimeter hypodensities too small to characterize but likely cysts. Duplicated right renal collecting system. No hydronephrosis. Ureters nondistended. No nephrolithiasis. Bladder: Normal. Pelvic organs: Uterus surgically absent. No adnexal masses. Bowel: Mild diverticulosis scattered throughout the colon. No convincing evidence of pericolonic inflammatory change. Normal appendix. No bowel obstruction. Postsurgical changes of the stomach with gastric sleeve procedure suspected. Stable appearance of the contrast at the gastroesophageal junction potentially from prior fundoplication. Peritoneal cavity: No free fluid or intraperitoneal gas. Lymph nodes: No enlarged lymph nodes in the abdomen or pelvis. Vasculature: Aorta and IVC patent and normal in caliber. Abdominal wall: Normal. Musculoskeletal: Normal. IMPRESSION: 1. No acute intra-abdominal pathology. 2. Stable postsurgical changes of the stomach and gastroesophageal junction. 3. Mild diverticulosis coli without evidence of diverticulitis. 4. Suspected hepatic steatosis. 5. Additional chronic findings stable from prior. XR chest 1V portable HISTORY: 59 years-old Female weakness acute weakness COMPARISON: Chest radiograph 11/30/2019, CT abdomen pelvis 11/09/2019 TECHNIQUE: Portable AP view of the chest FINDINGS: Cardiac silhouette is enlarged, unchanged. Radiodense focus adjacent to the gastroesophageal junction is unchanged. Right pectoral Rctyke-c-Dctc catheter appears to be stable. No pneumothorax, pleural effusion, overt pulmonary edema or airspace consolidation typical for pneumonia. Unchanged mild blunting of the right costophrenic angle. Retrocardiac opacity may correlate with previously noted asymmetric left hemidiaphragmatic elevation with adjacent postoperative changes. Degenerative changes of the shoulders and spine. IMPRESSION: No acute process. Medications Administered Current Inpatient Medications Acetaminophen (Tylenol) 1,000 mg PO Q6H PRN PRN Reason: Fever Or Pain Stop: 01/01/20 19:40 Al Hydrox/Mg Hydrox/Simethicone (Maalox Max) 30 ml PO Q6H PRN PRN Reason: Heartburn Stop: 01/02/20 06:05 Last Admin: 12/03/19 06:13 Dose: 30 ml Documented by: Clonazepam (Klonopin) 0.5 mg PO TID PRN PRN Reason: Panic Attack(S) Stop: 01/01/20 19:40 Dicyclomine HCl (Bentyl) 10 mg PO BID PRN PRN Reason: Diarrhea Stop: 01/02/20 12:36 Last Admin: 12/03/19 12:55 Dose: 10 mg Documented by: Escitalopram Oxalate (Lexapro Tab) 10 mg PO HS RUSSELL Stop: 01/01/20 20:59 Last Admin: 12/02/19 20:36 Dose: 10 mg Documented by: Famotidine (Pepcid) 40 mg PO BID [facility] Stop: 01/01/20 20:59 Last Admin: 12/03/19 07:53 Dose: 40 mg Documented by: Heparin Sodium (Porcine) (Heparin Sodium (Porcine)) 5,000 units SQ Q12 RUSSELL Stop: 01/01/20 20:59 Last Admin: 12/03/19 07:55 Dose: 5,000 units Documented by: Heparin Sodium (Porcine) (Heparin Sod 100 Unit/Ml Flush) 5 ml FLUSH PRN PRN PRN Reason: Flush Stop: 01/02/20 00:44 Hydromorphone HCl (Dilaudid) 0.5 mg IV Q4H PRN PRN Reason: Pain Stop: 12/16/19 15:53 Promethazine HCl 12.5 mg/ (Sodium Chloride) 50.5 mls @ 202 mls/hr IV Q6H PRN PRN Reason: Nausea And Vomiting Stop: 01/01/20 18:17 Last Infusion: 12/03/19 10:20 Dose: Infused Documented by: Sodium Chloride (Nss 1000ml) 1,000 mls @ 80 mls/hr IV .[id number] [facility] Stop: 12/04/19 08:29 Last Admin: 12/03/19 07:52 Dose: 80 mls/hr Documented by: Ioversol (Optiray 320 100ml) 94 ml IV ONCE PRN PRN Reason: Interaction Checking Stop: 12/06/19 17:02 Last Admin: 12/02/19 17:04 Dose: 94 ml Documented by: Levothyroxine Sodium (Synthroid) 88 mcg PO DAILYBB [facility] Stop: 01/02/20 06:29 Last Admin: 12/03/19 06:14 Dose: 88 mcg Documented by: Metoclopramide HCl (Reglan) 10 mg PO TIDM [facility] Stop: 01/02/20 07:59 Last Admin: 12/03/19 12:11 Dose: 10 mg Documented by: Metoprolol Succinate (Toprol Xl) 12.5 mg PO BID [facility] Stop: 01/01/20 20:59 Last Admin: 12/03/19 07:52 Dose: 12.5 mg Documented by: Multivitamins (Multivitamin Tab) 1 tab PO QAM [facility] Stop: 01/02/20 08:59 Last Admin: 12/03/19 07:53 Dose: 1 tab Documented by: Ondansetron HCl (Zofran) 4 mg IV Q6H PRN PRN Reason: Nausea Stop: 01/01/20 18:17 Last Admin: 12/03/19 00:38 Dose: 4 mg Documented by: Pantoprazole Sodium (Protonix) 40 mg PO QAM [facility] Stop: 01/02/20 08:59 Last Admin: 12/03/19 07:53 Dose: 40 mg Documented by: (1) Depression Depression Type: unspecified Qualified Code(s): F32.9 - Major depressive disorder, single episode, unspecified (2) Hypothyroidism Hypothyroidism type: acquired Qualified Code(s): E03.9 - Hypothyroidism, unspecified (3) GERD (gastroesophageal reflux disease) Esophagitis presence: with esophagitis Qualified Code(s): K21.0 - Gastro- esophageal reflux disease with esophagitis
[2019-12-03] MEDS: HEPARIN 100 UNIT/ML 5ML FLUSH FLUSH PRN (15:29)
[2019-12-03] MEDS: HYDROmorphone INJ 0.5 MG/0.5 ML SYR IV PRN (18:44)
[2019-12-03] MEDS: ESCITALOPRAM OXALATE 10 MG TAB PO SCH (20:27)
[2019-12-04] MEDS: HEPARIN 100 UNIT/ML 5ML FLUSH FLUSH PRN ×2 (00:55→14:15)
[2019-12-04] MEDS: ONDANSETRON INJ 2 MG/ML 2 ML VIAL IV PRN ×3 (00:55→14:15)
[2019-12-04 05:57] LABS: Hematocrit (blood only) 28.1 % (37-47); Hemoglobin 8.8 g/dL (12.0-16.0); Mean Corpuscular Hemoglobin 25.7 pg (25-34); Mean Corpuscular Hgb Conc 31.3 g/dL (32-36); Mean Corpuscular Volume 82.2 fL (80-100); Mean Platelet Volume 9.3 fL (7.4-10.4); Platelet Count 214 K/uL (130-400); RDW Coefficient of Variation 17.8 % (11.5-14.5); Red Blood Count 3.42 M/uL (4.2-5.4); White Blood Count 4.84 K/uL (4.8-10.8)
[2019-12-04] MEDS: LEVOTHYROXINE SODIUM 88 MCG TABLET PO SCH (06:08)
[2019-12-04 06:25] LABS: BUN Creatinine Ratio 11.1 (10-20); Calcium 7.6 mg/dl (8.5-10.1); Creatinine Clr Calc Pharmacy 55.4 ml/min; Est GFR (Non-African American) 63.8; Magnesium 2.1 mg/dl (1.8-2.4)
[2019-12-04 06:26] LABS: Phosphorus 2.8 mg/dl (2.5-4.9)
--- NOTE | 2019-12-04 08:39 | Fluoroscopy Report ---
[place] GI series CLINICAL HISTORY: 59 years-old Female presenting with gastroparesis, dysphagia with sensation of food sticking in the mid chest, coughing while eating and drinking, reflux medicines without relief, nega tive EGD, history of hiatal hernia repair 8 years ago, esophageal dysmotility. TECHNIQUE: A standard air contrast upper GI series was performed. Spot images of the esophagus and s tomach were obtained in multiple obliquities both upright and prone. COMPARISON: CT from 12/02/2019. FINDINGS: Ingestion: The patient was able to ingest barium and the barium pill without difficulty. Aspiration: None. Esophageal mucosa: Normal. No evidence of intrinsic or extrinsic mass lesion. Esophageal motility: Normal. Esophageal length: Normal. Gastroesophageal junction: Postsurgical changes at the gastroesophageal reflux with dense material at the level of the GE junction possibly reflecting barium within a fundoplication or other surgical ma terial. Surgical clips and suture lines project over the epigastrium. No evidence of a hiatal hernia. No stricture. Reflux: Significant gastroesophageal reflux to the level of the midesophagus. Stomach: Postsurgical changes of the stomach may indicate prior sleeve gastrectomy or other postsurgi fady change. Limited evaluation of the stomach demonstrates normal gastric emptying. No obstruction or leak. Proximal small bowel: Duodenal sweep and proximal small bowel normal. Fluoroscopy dosage (mGy): Not available. Fluoroscopy time: 2.6 minutes. Number or time of high level fluoroscopy (HLF), digital spot, or digital subtraction images: 21. IMPRESSION: 1. Gastroesophageal reflux to the level of the midesophagus. 2. Postsurgical changes of the gastroesophageal junction and stomach. No evidence of a recurrent hia nadege hernia. ACT 112: Negative or not required by law. Electronically signed by: Jeovany Bach M.D. 12/04/2019 8:38 AM
[2019-12-04] MEDS: PANTOprazole 40 MG TAB PO SCH (09:10)
[2019-12-04] MEDS: MULTIVITAMIN TAB PO SCH (09:11)
[2019-12-04] MEDS: FAMOTIDINE 40 MG TABLET PO SCH ×2 (09:11→21:09)
[2019-12-04] MEDS: METOCLOPRAMIDE HCL 10 MG TABLET PO SCH ×3 (09:11→18:39)
[2019-12-04] MEDS: METOPROLOL SUCC 25MG EXT REL TAB PO SCH ×2 (09:11→21:09)
[2019-12-04] MEDS: HEPARIN SOD 5,000 UNIT/0.5 ML VIAL SQ SCH ×2 (09:13→21:09)
[2019-12-04] MEDS: DICYCLOMINE HCL 10 MG CAP PO PRN ×2 (10:02→18:36)
[2019-12-04] MEDS: ALUMINUM/MAGNESIUM/SIMETH (MAALOX MAX) 30 ML UDC PO PRN (11:44)
[2019-12-04] MEDS ORDERED: FOSAPREPITANT DIMEGLUMINE 150 MG in SODIUM CHLORIDE 0.9% 145 ML IV ONE (16:30)
[2019-12-04] MEDS: PROMETHAZINE HCL 12.5 MG in SODIUM CHLORIDE 0.9% 50 ML IV PRN (19:08)
[2019-12-04] MEDS: ESCITALOPRAM OXALATE 10 MG TAB PO SCH (21:09)
--- NOTE | 2019-12-04 22:57 | Hospitalist Progress Note ---
Date of Service December 04, 2019 Assessment & Plan (1) Gastroparesis: History of gastroparesis and history of pyloroplasty now with exacerbation EGD that was done on 02 October of this year showed possible small hiatal hernia but without any obstruction of the esophagus Has history of gastroparesis with recurrent admission due to nausea and vomiting Has been on monthly Emend and oral metoclopramide and Zofran Continues to have symptoms of severe nausea with food. Cannot vomit per her report. Will continue oral metoclopramide, give intravenously Zofran and Phenergan as needed IV fluid and diet as tolerated with frequent small meals recommended. Will give trial of emend this evening. Overall this is an exacerbation of her underlying gastroparesis which we will help palliate her through and then she will need to follow-up with Dr. Pradhan, her regular physician, to discuss any changes in the long-term plan. (2) GERD (gastroesophageal reflux disease): Cont protonix and pepcid per home regimen. Avoid trigger foods (3) H/O irritable bowel syndrome: Mostly diarrhea predominant IBS, bentyl PRN per GI team (4) Depression: Cont Lexapro 10mg daily (5) COPD (chronic obstructive pulmonary disease): chronic, stable without evidence of exacerbation. (6) Hypothyroidism: Cont synthroid replacement per home regimen. (7) Anemia: No active bleeding or need for transfusion at this time. Will cont to monitor and review outpatient records for history of this. (8) DVT prophylaxis: Heparin DNR Dispo-to home when able to tolerate PO reliably without significant nausea. Juliane Long DO [facility] Hospitalist Admission and Anticipated Discharge Date Admission Date: December 03, 2019 Anticipated date of discharge: 12/07/19 Subjective Persistent nausea, tolerating food but really no no changes. Discussed treatment options with GI who recommended emend IV. The patient is open to this. We did discuss diet modifications that may be helpful moving forward that she may look into. Review of Systems Review of Systems: All systems reviewed & are unremarkable except as noted in Subjective Physical Exam Physical Exam: CONSTITUTIONAL: WNWD, vitals as above, generally well- appearing EYES: normal conjunctivae, no scleral icterus ENT: MMM RESPIRATORY: clear to auscultation bilaterally, no crackles, rales or wheezes, normal respiratory effort CARDIOVASCULAR: regular rate and rhythm, S1 and 2 heard without murmurs, gallops or rubs, no JVD, no peripheral edema GASTROINTESTINAL: soft, nontender,nondistended, no guarding. MUSCULOSKELETAL: moves all extremities equally, head is normocephalic and atraumatic SKIN: warm and dry NEUROLOGIC: CN 2-12 grossly intact, no gross focal deficits. PSYCHIATRIC: alert cooperative and oriented Results & Data ([place]) Vital Signs (Past 12 Hours) Vital Signs Temp Pulse Resp BP Pulse Ox 12/04/19 15:12 36.5 C 60 18 114/76 97 Laboratory Results Short CBC 12/04/19 Range/Units 05:19 WBC 4.84 (4.8-10.8) K/uL Hgb 8.8 L (12.0-16.0) g/dL Hct 28.1 L (37-47) % Plt Count 214 (130-400) K/uL BMP 12/04/19 05:19 Sodium 144 Potassium 4.0 Chloride 116 H Carbon Dioxide 25 BUN 11 Creatinine 0.96 Glucose 80 Calcium 7.6 L Medications Administered Current Inpatient Medications Acetaminophen (Tylenol) 1,000 mg PO Q6H PRN PRN Reason: Fever Or Pain Stop: 01/01/20 19:40 Al Hydrox/Mg Hydrox/Simethicone (Maalox Max) 30 ml PO Q6H PRN PRN Reason: Heartburn Stop: 01/02/20 06:05 Last Admin: 12/04/19 11:44 Dose: 30 ml Documented by: Clonazepam (Klonopin) 0.5 mg PO TID PRN PRN Reason: Panic Attack(S) Stop: 01/01/20 19:40 Dicyclomine HCl (Bentyl) 10 mg PO BID PRN PRN Reason: Diarrhea Stop: 01/02/20 12:36 Last Admin: 12/04/19 18:36 Dose: 10 mg Documented by: Escitalopram Oxalate (Lexapro Tab) 10 mg PO HS RUSSELL Stop: 01/01/20 20:59 Last Admin: 12/04/19 21:09 Dose: 10 mg Documented by: Famotidine (Pepcid) 40 mg PO BID [facility] Stop: 01/01/20 20:59 Last Admin: 12/04/19 21:09 Dose: 40 mg Documented by: Heparin Sodium (Porcine) (Heparin Sodium (Porcine)) 5,000 units SQ Q12 RUSSELL Stop: 01/01/20 20:59 Last Admin: 12/04/19 21:09 Dose: 5,000 units Documented by: Heparin Sodium (Porcine) (Heparin Sod 100 Unit/Ml Flush) 5 ml FLUSH PRN PRN PRN Reason: Flush Stop: 01/02/20 00:44 Last Admin: 12/04/19 14:15 Dose: 5 ml Documented by: Hydromorphone HCl (Dilaudid) 0.5 mg IV Q4H PRN PRN Reason: Pain Stop: 12/16/19 15:53 Last Admin: 12/03/19 18:44 Dose: 0.5 mg Documented by: Promethazine HCl 12.5 mg/ (Sodium Chloride) 50.5 mls @ 202 mls/hr IV Q6H PRN PRN Reason: Nausea And Vomiting Stop: 01/01/20 18:17 Last Infusion: 12/04/19 19:46 Dose: Infused Documented by: Ioversol (Optiray 320 100ml) 94 ml IV ONCE PRN PRN Reason: Interaction Checking Stop: 12/06/19 17:02 Last Admin: 12/02/19 17:04 Dose: 94 ml Documented by: Levothyroxine Sodium (Synthroid) 88 mcg PO DAILYBB [facility] Stop: 01/02/20 06:29 Last Admin: 12/04/19 06:08 Dose: 88 mcg Documented by: Metoclopramide HCl (Reglan) 10 mg PO TIDM [facility] Stop: 01/02/20 07:59 Last Admin: 12/04/19 18:39 Dose: 10 mg Documented by: Metoprolol Succinate (Toprol Xl) 12.5 mg PO BID [facility] Stop: 01/01/20 20:59 Last Admin: 12/04/19 21:09 Dose: 12.5 mg Documented by: Multivitamins (Multivitamin Tab) 1 tab PO QAM [facility] Stop: 01/02/20 08:59 Last Admin: 12/04/19 09:11 Dose: 1 tab Documented by: Ondansetron HCl (Zofran) 4 mg IV Q6H PRN PRN Reason: Nausea Stop: 01/01/20 18:17 Last Admin: 12/04/19 14:15 Dose: 4 mg Documented by: Pantoprazole Sodium (Protonix) 40 mg PO QAM [facility] Stop: 01/02/20 08:59 Last Admin: 12/04/19 09:10 Dose: 40 mg Documented by: (1) Depression Depression Type: unspecified Qualified Code(s): F32.9 - Major depressive disorder, single episode, unspecified (2) Hypothyroidism Hypothyroidism type: acquired Qualified Code(s): E03.9 - Hypothyroidism, unspecified (3) GERD (gastroesophageal reflux disease) Esophagitis presence: with esophagitis Qualified Code(s): K21.0 - Gastro- esophageal reflux disease with esophagitis
[2019-12-05] MEDS: ONDANSETRON INJ 2 MG/ML 2 ML VIAL IV PRN ×3 (00:45→21:39)
[2019-12-05] MEDS: HEPARIN 100 UNIT/ML 5ML FLUSH FLUSH PRN ×6 (00:46→23:13)
[2019-12-05] MEDS: ALUMINUM/MAGNESIUM/SIMETH (MAALOX MAX) 30 ML UDC PO PRN ×3 (00:59→22:30)
[2019-12-05] MEDS: HYDROmorphone INJ 0.5 MG/0.5 ML SYR IV PRN ×2 (02:31→14:07)
[2019-12-05] MEDS: PROMETHAZINE HCL 12.5 MG in SODIUM CHLORIDE 0.9% 50 ML IV PRN ×3 (05:55→22:36)
[2019-12-05] MEDS: LEVOTHYROXINE SODIUM 88 MCG TABLET PO SCH (05:55)
[2019-12-05 06:11] LABS: Hematocrit (blood only) 28.1 % (37-47); Hemoglobin 8.8 g/dL (12.0-16.0); Mean Corpuscular Hemoglobin 25.5 pg (25-34); Mean Corpuscular Hgb Conc 31.3 g/dL (32-36); Mean Corpuscular Volume 81.4 fL (80-100); Mean Platelet Volume 9.4 fL (7.4-10.4); Platelet Count 213 K/uL (130-400); RDW Coefficient of Variation 17.9 % (11.5-14.5); RDW Standard Deviation 52.7 fL (36.4-46.3); Red Blood Count 3.45 M/uL (4.2-5.4); White Blood Count 5.11 K/uL (4.8-10.8)
[2019-12-05] MEDS: ACETAMINOPHEN 500 MG TAB PO PRN ×2 (08:37→15:20)
[2019-12-05] MEDS: FAMOTIDINE 40 MG TABLET PO SCH ×2 (08:38→20:29)
[2019-12-05] MEDS: PANTOprazole 40 MG TAB PO SCH (08:38)
[2019-12-05] MEDS: MULTIVITAMIN TAB PO SCH (08:39)
[2019-12-05] MEDS: METOCLOPRAMIDE HCL 10 MG TABLET PO SCH ×3 (08:39→17:23)
[2019-12-05] MEDS: METOPROLOL SUCC 25MG EXT REL TAB PO SCH ×2 (08:39→20:29)
[2019-12-05] MEDS: HEPARIN SOD 5,000 UNIT/0.5 ML VIAL SQ SCH ×2 (08:40→20:29)
[2019-12-05] MEDS ORDERED: Nursing to Pharmacy Communication ONE (08:49)
[2019-12-05] MEDS ORDERED: ERYTHROMYCIN 250 MG TABEC PO ONE (09:00)
[2019-12-05] MEDS ORDERED: ERYTHROMYCIN ETHYLSUCC SUSP 200 MG/5 ML 100 ML BTL PO ONE (09:00)
[2019-12-05] MEDS ORDERED: ERYTHROMYCIN 250 MG TABEC PO SCH (11:30)
[2019-12-05] MEDS: ERYTHROMYCIN ETHYLSUCC SUSP 200 MG/5 ML 100 ML BTL PO SCH ×2 (11:51→17:23)
[2019-12-05] MEDS: DICYCLOMINE HCL 10 MG CAP PO PRN (15:20)
--- NOTE | 2019-12-05 16:09 | Hospitalist Progress Note ---
Date of Service December 05, 2019 Assessment & Plan (1) Gastroparesis: History of gastroparesis and history of pyloroplasty now with exacerbation EGD that was done on 02 October of this year showed possible small hiatal hernia but without any obstruction of the esophagus Has history of gastroparesis with recurrent admission due to nausea and vomiting Has been on monthly Emend and oral metoclopramide and Zofran Continues to have symptoms of severe nausea with food. Cannot vomit per her report. Will continue oral metoclopramide, give intravenously Zofran and Phenergan as needed IV fluid and diet as tolerated with frequent small meals recommended. Emend yesterday was unhelpful and still requiring PRN intravenous antiemetics. Did speak with GI about trial of erythromycin, which we will start today. Long-term plan per Dr. Ridley (2) GERD (gastroesophageal reflux disease): Cont protonix and pepcid per home regimen. Diet mods as needed, eg-avoid caffeine, dairy, spicy or acidic foods. (3) H/O irritable bowel syndrome: Mostly diarrhea predominant IBS, bentyl PRN per GI team (4) Depression: Cont Lexapro 10mg daily (5) COPD (chronic obstructive pulmonary disease): chronic, stable, no wheezing or evidence of exacerbation (6) Hypothyroidism: Cont synthroid replacement per home regimen. (7) Anemia: No active bleeding or need got transfusion at this time. Will cont to monitor and review outpatient records for history of this. (8) DVT prophylaxis: Heparin DNR Dispo-to home when able to tolerate PO reliably without significant nausea. Juliane Long DO [facility] Hospitalist Admission and Anticipated Discharge Date Admission Date: December 03, 2019 Anticipated date of discharge: 12/06/19 Subjective Persistent nausea despite Emend given yesterday. Tolerating p.o. but again is unable to vomit per her report. Feels uncertain about going home. Reports 6 episodes of loose stool which is chronic for her. Review of Systems Review of Systems: All systems reviewed & are unremarkable except as noted in Subjective Physical Exam Physical Exam: CONSTITUTIONAL: WNWD, vitals as above, generally well- appearing EYES: normal conjunctivae, no scleral icterus ENT: MMM RESPIRATORY: clear to auscultation bilaterally, no crackles, rales or wheezes, normal respiratory effort CARDIOVASCULAR: regular rate and rhythm, S1 and 2 heard without murmurs, gallops or rubs, no JVD, no peripheral edema GASTROINTESTINAL: soft, nontender,nondistended, no guarding. MUSCULOSKELETAL: moves all extremities equally, head is normocephalic and atraumatic SKIN: warm and dry NEUROLOGIC: CN 2-12 grossly intact, no gross focal deficits. PSYCHIATRIC: alert cooperative and oriented Results & Data ([facility]) Vital Signs (Past 12 Hours) Vital Signs Temp Pulse Resp BP Pulse Ox 12/05/19 15:19 36.7 C 67 22 116/72 95 12/05/19 07:44 36.6 C 51 L 18 107/73 95 Laboratory Results Short CBC 12/05/19 Range/Units 05:20 WBC 5.11 (4.8-10.8) K/uL Hgb 8.8 L (12.0-16.0) g/dL Hct 28.1 L (37-47) % Plt Count 213 (130-400) K/uL Medications Administered Current Inpatient Medications Acetaminophen (Tylenol) 1,000 mg PO Q6H PRN PRN Reason: Fever Or Pain Stop: 01/01/20 19:40 Last Admin: 12/05/19 15:20 Dose: 1,000 mg Documented by: Al Hydrox/Mg Hydrox/Simethicone (Maalox Max) 30 ml PO Q6H PRN PRN Reason: Heartburn Stop: 01/02/20 06:05 Last Admin: 12/05/19 15:20 Dose: 30 ml Documented by: Clonazepam (Klonopin) 0.5 mg PO TID PRN PRN Reason: Panic Attack(S) Stop: 01/01/20 19:40 Dicyclomine HCl (Bentyl) 10 mg PO BID PRN PRN Reason: Diarrhea Stop: 01/02/20 12:36 Last Admin: 12/05/19 15:20 Dose: 10 mg Documented by: Erythromycin Ethylsuccinate (Eryped) 250 mg PO AC RUSSELL Stop: 12/15/19 11:29 Last Admin: 12/05/19 11:51 Dose: 250 mg Documented by: Escitalopram Oxalate (Lexapro Tab) 10 mg PO HS RUSSELL Stop: 01/01/20 20:59 Last Admin: 12/04/19 21:09 Dose: 10 mg Documented by: Famotidine (Pepcid) 40 mg PO BID [facility] Stop: 01/01/20 20:59 Last Admin: 12/05/19 08:38 Dose: 40 mg Documented by: Heparin Sodium (Porcine) (Heparin Sodium (Porcine)) 5,000 units SQ Q12 RUSSELL Stop: 01/01/20 20:59 Last Admin: 12/05/19 08:40 Dose: 5,000 units Documented by: Heparin Sodium (Porcine) (Heparin Sod 100 Unit/Ml Flush) 5 ml FLUSH PRN PRN PRN Reason: Flush Stop: 01/02/20 00:44 Last Admin: 12/05/19 14:07 Dose: 5 ml Documented by: Hydromorphone HCl (Dilaudid) 0.5 mg IV Q4H PRN PRN Reason: Pain Stop: 12/16/19 15:53 Last Admin: 12/05/19 14:07 Dose: 0.5 mg Documented by: Promethazine HCl 12.5 mg/ (Sodium Chloride) 50.5 mls @ 202 mls/hr IV Q6H PRN PRN Reason: Nausea And Vomiting Stop: 01/01/20 18:17 Last Infusion: 12/05/19 06:15 Dose: Infused Documented by: Ioversol (Optiray 320 100ml) 94 ml IV ONCE PRN PRN Reason: Interaction Checking Stop: 12/06/19 17:02 Last Admin: 12/02/19 17:04 Dose: 94 ml Documented by: Levothyroxine Sodium (Synthroid) 88 mcg PO DAILYBB [facility] Stop: 01/02/20 06:29 Last Admin: 12/05/19 05:55 Dose: 88 mcg Documented by: Metoclopramide HCl (Reglan) 10 mg PO TIDM [facility] Stop: 01/02/20 07:59 Last Admin: 12/05/19 11:51 Dose: 10 mg Documented by: Metoprolol Succinate (Toprol Xl) 12.5 mg PO BID [facility] Stop: 01/01/20 20:59 Last Admin: 12/05/19 08:39 Dose: Not Given Documented by: Multivitamins (Multivitamin Tab) 1 tab PO QAM [facility] Stop: 01/02/20 08:59 Last Admin: 12/05/19 08:39 Dose: 1 tab Documented by: Ondansetron HCl (Zofran) 4 mg IV Q6H PRN PRN Reason: Nausea Stop: 01/01/20 18:17 Last Admin: 12/05/19 14:07 Dose: 4 mg Documented by: Pantoprazole Sodium (Protonix) [facility] [place] [facility] [place]: 01/02/20 08:59 Last Admin: 12/05/19 08:38 Dose: 40 mg Documented by: (1) Depression Depression Type: unspecified Qualified Code(s): F32.9 - Major depressive disorder, single episode, unspecified (2) Hypothyroidism Hypothyroidism type: acquired Qualified Code(s): E03.9 - Hypothyroidism, unspecified (3) GERD (gastroesophageal reflux disease) Esophagitis presence: with esophagitis Qualified Code(s): K21.0 - Gastro- esophageal reflux disease with esophagitis
[2019-12-05] MEDS: ESCITALOPRAM OXALATE 10 MG TAB PO SCH (20:29)
[2019-12-06] MEDS: ACETAMINOPHEN 500 MG TAB PO PRN (04:07)
[2019-12-06] MEDS: ONDANSETRON INJ 2 MG/ML 2 ML VIAL IV PRN ×2 (04:07→11:04)
[2019-12-06] MEDS: PROMETHAZINE HCL 12.5 MG in SODIUM CHLORIDE 0.9% 50 ML IV PRN (06:22)
[2019-12-06] MEDS: LEVOTHYROXINE SODIUM 88 MCG TABLET PO SCH (07:50)
[2019-12-06] MEDS: ERYTHROMYCIN ETHYLSUCC SUSP 200 MG/5 ML 100 ML BTL PO SCH ×2 (07:55→11:18)
[2019-12-06] MEDS: FAMOTIDINE 40 MG TABLET PO SCH (09:34)
[2019-12-06] MEDS: MULTIVITAMIN TAB PO SCH (09:34)
[2019-12-06] MEDS: METOCLOPRAMIDE HCL 10 MG TABLET PO SCH ×2 (09:34→12:56)
[2019-12-06] MEDS: PANTOprazole 40 MG TAB PO SCH (09:35)
[2019-12-06] MEDS: METOPROLOL SUCC 25MG EXT REL TAB PO SCH (09:35)
[2019-12-06] MEDS: HEPARIN SOD 5,000 UNIT/0.5 ML VIAL SQ SCH (09:36)
[2019-12-06] MEDS: HEPARIN 100 UNIT/ML 5ML FLUSH FLUSH PRN (11:06)
--- NOTE | 2019-12-06 13:03 | Discharge Summary ---
Date of Service December 06, 2019 Admission HPI Per Admitting Provider She is a 59-year-old female with significant past medical history including severe gastroparesis requiring recurrent hospital admission with nausea and vomiting with history of pyloroplasty, hypertension, GERD, irritable bowel syndrome, anxiety/depression, COPD, hypothyroidism and paroxysmal atrial fibrillation not on any anticoagulation apparently was sent in home from ER following intractable nausea on eighth of this month. She has been complaining of ongoing nausea with epigastric discomfort and burning associated with ongoing chronic diarrhea. She could not keep anything down due to nausea and epigastric discomfort. She complained to have numbness and pain involving the left jaw and left shoulder and numbness and tingling involving all of the extremities. She has chronic diarrhea and has had about 4 bowel movements since this morning and she denies any problem with her urine. Denies any weakness involving any side in particular. She was hemodynamically stable in the emergency room with fairly unremarkable electrolytes and CAT scan of the abdomen and pelvis. Given her ongoing nausea with epigastric discomfort and not being able to keep anything down, she was admitted to the medical floor to control her symptoms. Admission Exam Per Admitting Provider Physical Exam: Lying in bed comfortably a little anxious Constitutional: well developed and well nourished; no acute distress and not ill appearing Eyes: PERRL, conjunctivae normal, anicteric sclerae ENMT: external ear and nose normal, oropharynx normal Neck: trachea midline, no thyromegaly Respiratory: normal respiratory effort; no respiratory distress Auscultation: lungs clear to auscultation bilaterally and + crackles Cardiovascular: Rate/Rhythm: regular rate and regular rhythm Heart Sounds: no murmur Gastrointestinal (Abdomen): Inspection/Auscultation: abdomen normal to inspection and normal bowel sounds Percussion/Palpation: + abdomen tender (Minimally tender epigastrium) and abdomen soft Musculoskeletal: No acute arthritis involving any joint Neurologic: Alert, awake and oriented x3. Generally weak but no focal neuro deficit Lymphatic: no cervical or axillary lymphadenopathy Principal Diagnosis exacerbation of chronic gastroparesis diarrhea-predominant IBS Discharge Exam CONSTITUTIONAL: WNWD, vitals as above, generally well-appearing EYES: normal conjunctivae, no scleral icterus ENT: MMM RESPIRATORY: clear to auscultation bilaterally, no crackles, rales or wheezes, normal respiratory effort CARDIOVASCULAR: regular rate and rhythm, S1 and 2 heard without murmurs, gallops or rubs, no JVD, no peripheral edema GASTROINTESTINAL: soft, nontender,nondistended, no guarding. MUSCULOSKELETAL: moves all extremities equally, head is normocephalic and atraumatic SKIN: warm and dry NEUROLOGIC: CN 2-12 grossly intact, no gross focal deficits. PSYCHIATRIC: alert cooperative and oriented Discharge Data Allergies Allergy/AdvReac Type Severity Reaction Status Date / Time adhesive Allergy Mild SKIN Verified 11/30/19 15:35 IRRITATION amoxicillin AdvReac Intermediate yeast Verified 11/30/19 15:35 infection NSAIDS (Non-Steroidal AdvReac Mild indegestion Verified 11/30/19 15:35 Anti-Inflamma rofecoxib AdvReac Mild indigestion Verified 11/30/19 15:35 scopolamine AdvReac Mild rash from Verified 11/30/19 15:35 patch Consultations 12/03/19 09:39 Consult Gastroenterology Routine Ordered Studies 12/02/19 15:54 CT abd pelvis IV con only Stat 12/04/19 08:15 [place] GI series Routine Hospital Course (1) Gastroparesis: (2) IBS (irritable bowel syndrome): (3) Anemia: 59-year-old female with known history of gastroparesis status post pyloroplasty presents with worsening nausea. She was unable to vomit per her report but the nausea is intense and she is not able to control it with home medications. She was admitted to the hospitalist service and placed on IV antiemetics. She was continued on oral metoclopramide per home regimen. GI was consulted and recommended continuing supportive care with IVF and antiemetics for her gastroparesis and a trial of dicyclomine for her diarrhea-associated IBS. An upper GI series was performed secondary to reported dysphasia sensation with food sticking in the mid chest, coughing while eating and drinking, reflux medicines reporting no relief and a negative EGD in the past. She also had a history of hiatal hernia repair 8 years ago and esophageal dysmotility. Findings included gastroesophageal reflux to the level of the midesophagus and postsurgical changes of the gastroesophageal junction and stomach with no evidence of recurrent hiatal hernia. She also had a CT abdomen pelvis with IV contrast performed revealing no acute intra-abdominal pathology, stable postoperative changes and suspected hepatic steatosis. A chest x-ray was performed revealing no acute process. She continue to utilize anti-medics including Emend without much relief. Erythromycin 250 mg p.o. 3 times daily with meals was tried for approximately 24 hours with no improvement in symptoms. However, around this time she felt stable and well enough to go home. At time of discharge she was hemodynamically stable and afebrile and tolerating p.o. reliably. She was mentating and ambulating at baseline and oxygenating well on room air. Physical exam was unremarkable including abdomen that was soft nontender nondistended with good bowel sounds. Close primary care follow-up was recommended. It was recommended that she follow-up with her primary sales and merchandising representative Dr. Ridley within the next couple of months to discuss a long-term care plan for her gastroparesis. Total Time Total Time Spent Total Time Spent (In Minutes): 60 Total Time Includes: Examination of the Patient, Discharge Planning, Medication Reconciliation and Communication With Other Providers Discharge Plan Discharge Items Patient Disposition: Home - Self-Care Reason For Visit: INTRACTABLE NAUSEA,SEVERE GASTROPARESIS Discharge Diagnosis: exacerbation of chronic gastroparesis diarrhea-predominant IBS Condition on Discharge: Good Activity: Resume your previous activity Non-emergency contact: Primary Care Provider and Runner Worker Call non-emergency contact if: you have any medication questions and your symptoms worsen Follow-up/Referrals: Silvia Ridley [Physician] - Jaleel Coppola MD [Primary Care Provider] - 12/09/19 12:45 pm (Dr. Coppola does not have any upcoming appts available for scheduling. Patient was scheduled to see ALYSHA Gomez. If patient cannot keep said appt, please call the office to reschedule. [phone]) Diet: Low Fiber and Low Fat Addtl Attending Provider Instructions: Please take all medications as instructed on discharge list below. Please consider adhering to a dairy free or wheat free diet as a treatment for your irritable bowel syndrome. It is recommended that you contact your primary sales and merchandising representative, Dr. Ridley and see him in the office within the next 1 to 2 months to discuss your long-term plan. It was a pleasure taking care of you! Please call if you have any questions or problems. You can reach a [facility] hospitalist on duty at [facility] 24 hours a day by calling [phone]. Take care of yourself. Juliane Long DO [facility] Hospitalist Pending Studies at Discharge: No Stand-Alone Forms: My [facility], Smoking Cessation Medications and DC Order Prescriptions: New dicyclomine 10 mg Capsule 10 mg PO BID PRN (Reason: abdominal discomfort) Qty: 60 RF: 0 promethazine 25 mg tablet 25 mg PO Q6H PRN (Reason: nausea) Qty: 30 RF: 0 Continued clonazepam 0.5 mg Tablet 0.5 mg PO TID PRN (Reason: Panic Attack(S)) Qty: 0 RF: 0 famotidine [Pepcid] 40 mg Tablet 40 mg PO BID Qty: 0 RF: 0 lansoprazole 30 mg Capsule,Delayed Release(Dr/Ec) 30 mg PO QAM RF: 0 multivitamin Tablet 1 tab PO QAM RF: 0 ondansetron HCl [Zofran] 8 mg Tablet 8 mg PO Q6H PRN (Reason: Nausea) RF: 0 acetaminophen [Tylenol Extra Strength] 500 mg Tablet 1,000 mg PO Q6H PRN (Reason: Fever Or Pain) RF: 0 levothyroxine [Synthroid] 88 mcg tablet 88 mcg PO DAILY RF: 0 metoclopramide HCl 10 mg tablet 10 mg PO TIDM RF: 0 metoprolol succinate 25 mg tablet extended release 24 hr 12.5 mg PO BID Qty: 30 RF: 1 escitalopram oxalate [Lexapro] 20 mg Tablet 10 mg PO HS Qty: 0 RF: 0 Discharge Orders: Discharge Order (Routine); Ordered 12/06/19 Ordered By: Juliane Long Admission Data Admit Date/Time: 12/03/19 14:31 Attending Provider: Juliane Long Admit Provider: Rosi Malhotra Primary Care Provider: Jaleel Coppola Other Providers: Lissette Juan
--- NOTE | 2019-12-11 08:04 | Discharge Summary ---
Date of Service December 11, 2019 Admission HPI Per Admitting Provider She is a 59-year-old female with significant past medical history including severe gastroparesis requiring recurrent hospital admission with nausea and vomiting with history of pyloroplasty, hypertension, GERD, irritable bowel syndrome, anxiety/depression, COPD, hypothyroidism and paroxysmal atrial fibrillation not on any anticoagulation apparently was sent in home from ER following intractable nausea on eighth of this month. She has been complaining of ongoing nausea with epigastric discomfort and burning associated with ongoing chronic diarrhea. She could not keep anything down due to nausea and epigastric discomfort. She complained to have numbness and pain involving the left jaw and left shoulder and numbness and tingling involving all of the extremities. She has chronic diarrhea and has had about 4 bowel movements since this morning and she denies any problem with her urine. Denies any weakness involving any side in particular. She was hemodynamically stable in the emergency room with fairly unremarkable electrolytes and CAT scan of the abdomen and pelvis. Given her ongoing nausea with epigastric discomfort and not being able to keep anything down, she was admitted to the medical floor to control her symptoms. Admission Exam Per Admitting Provider Physical Exam: Lying in bed comfortably a little anxious Constitutional: well developed and well nourished; no acute distress and not ill appearing Eyes: PERRL, conjunctivae normal, anicteric sclerae ENMT: external ear and nose normal, oropharynx normal Neck: trachea midline, no thyromegaly Respiratory: normal respiratory effort; no respiratory distress Auscultation: lungs clear to auscultation bilaterally and + crackles Cardiovascular: Rate/Rhythm: regular rate and regular rhythm Heart Sounds: no murmur Gastrointestinal (Abdomen): Inspection/Auscultation: abdomen normal to inspection and normal bowel sounds Percussion/Palpation: + abdomen tender (Minimally tender epigastrium) and abdomen soft Musculoskeletal: No acute arthritis involving any joint Neurologic: Alert, awake and oriented x3. Generally weak but no focal neuro deficit Lymphatic: no cervical or axillary lymphadenopathy Principal Diagnosis exacerbation of chronic gastroparesis diarrhea-predominant IBS Discharge Exam Constitutional well developed and well nourished; no acute distress and not ill appearing Eyes PERRL, conjunctivae normal, anicteric sclerae ENMT external ear and nose normal, oropharynx normal Neck trachea midline, no thyromegaly Respiratory normal respiratory effort; no respiratory distress Auscultation: lungs clear to auscultation bilaterally and + crackles Cardiovascular Rate/Rhythm: regular rate and regular rhythm Heart Sounds: no murmur Gastrointestinal (Abdomen) Inspection/Auscultation: abdomen normal to inspection and normal bowel sounds Percussion/Palpation: + abdomen tender (Minimally tender epigastrium) and abdomen soft Lymphatic no cervical or axillary lymphadenopathy Discharge Data Allergies Allergy/AdvReac Type Severity Reaction Status Date / Time adhesive Allergy Mild SKIN Verified 12/07/19 12:01 IRRITATION amoxicillin AdvReac Intermediate yeast Verified 12/07/19 12:01 infection NSAIDS (Non-Steroidal AdvReac Mild indegestion Verified 12/07/19 12:01 Anti-Inflamma rofecoxib AdvReac Mild indigestion Verified 12/07/19 12:01 scopolamine AdvReac Mild rash from Verified 12/07/19 12:01 patch lactose AdvReac Verified 12/09/19 12:40 Consultations 12/03/19 09:39 Consult Gastroenterology Routine Ordered Studies 12/02/19 15:54 CT abd pelvis IV con only Stat 12/04/19 08:15 [place] GI series Routine Hospital Course (1) Gastroparesis: History of gastroparesis and history of pyloroplasty now with exacerbation EGD that was done on 02 October of this year showed possible small hiatal hernia but without any obstruction of the esophagus Has history of gastroparesis with recurrent admission due to nausea and vomiting Has been on monthly Emend and oral metoclopramide and Zofran Continues to have symptoms of severe nausea with food. Cannot vomit per her report. Will continue oral metoclopramide, give intravenously Zofran and Phenergan as needed IV fluid and diet as tolerated with frequent small meals recommended. Will give trial of emend this evening. Overall this is an exacerbation of her underlying gastroparesis which we will help palliate her through and then she will need to follow-up with Dr. Pradhan, her regular physician, to discuss any changes in the long-term plan. (2) IBS (irritable bowel syndrome): (3) Anemia: 59-year-old female with known history of gastroparesis status post pyloroplasty presents with worsening nausea. She was unable to vomit per her report but the nausea is intense and she is not able to control it with home medications. She was admitted to the hospitalist service and placed on IV antiemetics. She was continued on oral metoclopramide per home regimen. GI was consulted and recommended continuing supportive care with IVF and antiemetics for her gastroparesis and a trial of dicyclomine for her diarrhea-associated IBS. An upper GI series was performed secondary to reported dysphasia sensation with food sticking in the mid chest, coughing while eating and drinking, reflux medicines reporting no relief and a negative EGD in the past. She also had a history of hiatal hernia repair 8 years ago and esophageal dysmotility. Findings included gastroesophageal reflux to the level of the midesophagus and postsurgical changes of the gastroesophageal junction and stomach with no evidence of recurrent hiatal hernia. She also had a CT abdomen pelvis with IV contrast performed revealing no acute intra-abdominal pathology, stable postoperative changes and suspected hepatic steatosis. A chest x-ray was performed revealing no acute process. She continue to utilize anti-medics including Emend without much relief. Erythromycin 250 mg p.o. 3 times daily with meals was tried for approximately 24 hours with no improvement in symptoms. However, around this time she felt stable and well enough to go home. At time of discharge she was hemodynamically stable and afebrile and tolerating p.o. reliably. She was mentating and ambulating at baseline and oxygenating well on room air. Physical exam was unremarkable including abdomen that was soft nontender nondistended with good bowel sounds. Close primary care follow-up was recommended. It was recommended that she follow-up with her primary school counselor Dr. Ridley within the next couple of months to discuss a long-term care plan for her gastroparesis. Total Time Total Time Spent Total Time Spent (In Minutes): 35 minutes Total Time Includes: Examination of the Patient, Discharge Planning, Medication Reconciliation and Communication With Other Providers Discharge Plan Discharge Items Patient Disposition: Home - Self-Care Reason For Visit: INTRACTABLE NAUSEA,SEVERE GASTROPARESIS Discharge Diagnosis: exacerbation of chronic gastroparesis diarrhea-predominant IBS Condition on Discharge: Good Activity: Resume your previous activity Non-emergency contact: Primary Care Provider and Menagerie Caretaker Call non-emergency contact if: you have any medication questions and your symptoms worsen Follow-up/Referrals: Silvia Ridley [Physician] - Jaleel Coppola MD [Primary Care Provider] - 12/09/19 12:45 pm (Dr. Coppola does not have any upcoming appts available for scheduling. Patient was scheduled to see ALYSHA Gomez. If patient cannot keep said appt, please call the office to reschedule. [phone]) Diet: Low Fiber and Low Fat Addtl Attending Provider Instructions: Please take all medications as instructed on discharge list below. Please consider adhering to a dairy free or wheat free diet as a treatment for your irritable bowel syndrome. It is recommended that you contact your primary school counselor, Dr. Ridley and see him in the office within the next 1 to 2 months to discuss your long-term plan. It was a pleasure taking care of you! Please call if you have any questions or problems. You can reach a [facility] hospitalist on duty at [facility] 24 hours a day by calling [phone]. Take care of yourself. Juliane Long, DO [facility] Hospitalist Pending Studies at Discharge: No Stand-Alone Forms: My [facility], Smoking Cessation Medications and DC Order Prescriptions: New dicyclomine 10 mg Capsule 10 mg PO BID PRN (Reason: abdominal discomfort) Qty: 60 RF: 0 promethazine 25 mg tablet 25 mg PO Q6H PRN (Reason: nausea) Qty: 30 RF: 0 Continued clonazepam 0.5 mg Tablet 0.5 mg PO TID PRN (Reason: Panic Attack(S)) Qty: 0 RF: 0 famotidine [Pepcid] 40 mg Tablet 40 mg PO BID Qty: 0 RF: 0 multivitamin Tablet 1 tab PO QPM RF: 0 ondansetron HCl [Zofran] 8 mg Tablet 8 mg PO Q6H PRN (Reason: Nausea) RF: 0 acetaminophen [Tylenol Extra Strength] 500 mg Tablet 1,000 mg PO Q6H PRN (Reason: Fever Or Pain) RF: 0 levothyroxine [Synthroid] 88 mcg tablet 88 mcg PO QAM RF: 0 metoclopramide HCl 10 mg tablet 10 mg PO TIDM RF: 0 metoprolol succinate 25 mg tablet extended release 24 hr 12.5 mg PO BID Qty: 30 RF: 1 escitalopram oxalate [Lexapro] 20 mg Tablet 10 mg PO HS Qty: 0 RF: 0 No Action pantoprazole 40 mg Tablet,Delayed Release (Dr/Ec) 40 mg PO BID Qty: 60 RF: 0 Discharge Orders: Discharge Order (Routine); Ordered 12/06/19 Ordered By: Juliane Long Admission Data Admit Date/Time: 12/02/19 18:19 Attending Provider: Juliane Long Admit Provider: Rosi Malhotra Primary Care Provider: Jaleel Coppola Other Providers: Lissette Juan Other Interventions: Discharge Summary Assessment (RN) Last Done: 12/06/19 13:17 DC Date/Time DO NOT enter until pt leaves facility: 12/06/19 14:10
== END 2019-12-06 14:10 | disposition home or self-care (01) ==
LOC: 4W 15:04 → ED 15:04 → SUATTDRO 18:19 → 4W 19:00

== ENCOUNTER 2019-12-07 11:35 | Inpatient (IN) ==
[2019-12-07] MEDS ORDERED: FOSAPREPITANT DIMEGLUMINE 115 MG in 0.9 % SODIUM CHLORIDE 111.2 ML IV ONE (12:09)
[2019-12-07] MEDS ORDERED: SODIUM CHLORIDE 0.9% 1000ML 1,000 ML IV ONE (12:09)
[2019-12-07] MEDS ORDERED: MoRPHine SULFATE 4 MG/ML 1 ML CARP\\VIAL IV PRN (12:09)
[2019-12-07] MEDS ORDERED: FAMOTIDINE 20MG/5ML IV PUSH IV STA (12:09)
[2019-12-07] MEDS ORDERED: PROMETHAZINE 12.5 MG/50.5 ML BAG IV STA (12:09)
--- NOTE | 2019-12-07 12:15 | Emergency Department Note ---
ED Provider Note CHIEF COMPLAINT: Nausea and vomiting HISTORY OF PRESENT ILLNESS: The patient is a 59 year old female who presents to the ER because of nausea and vomiting. The patient also notes the following associated symptoms: Epigastric abdominal pain, dry heaving. The symptoms started at midnight, around 12 hours ago and are severe and unrelenting. The patient has tried the following for relief : Tylenol and Zofran. The patient is a 59-year-old female with a history of gastroparesis. She was discharged from the hospital yesterday. The patient ate eggs last evening and around midnight began noticing epigastric abdominal pain, dry heaves. The pain is stabbing, radiates to her back and unrelenting. She has noticed some numbness to her extremities and face at times when the symptoms seem the most severe. She has had this numbness before with the same type of symptoms. Patient denies any fever, cough or congestion. She does have diarrhea but this is baseline for her. The patient has not had any shortness of breath. She states that she does have a GI doctor and at this point, it seems her doctors are unsure how to move forward in her treatment. The patient presents by ambulance. When I walked into the room, she was dry heaving. REVIEW OF SYSTEMS: See HPI for pertinent positives and negatives. A total of ten systems were reviewed and were otherwise negative. PMHx/PSHx: See Below SOCIAL HISTORY: See Below. PHYSICAL EXAM: GENERAL: Patient is in mild distress from vomiting. HEENT: No acute trauma, normocephalic atraumatic, mucous membranes moist, no nasal congestion, no scleral icterus. NECK: No stridor, no adenopathy, no meningismus, trachea is midline. LUNGS: Clear to auscultation bilaterally, no wheeze, no rhonchi, breath sounds equal. HEART: Without murmurs gallops or rubs, regular rate and rhythm. ABDOMEN: Soft, moderate epigastric tenderness, bowel sounds positive, no hernias, no peritonitis. EXTREMITIES: No cyanosis or edema, full range of motion of all the joints without pain or difficulty, no signs for acute trauma. NEUROLOGIC: Oriented x 3, no acute motor or sensory deficits, no focal weakness. No speech slur or facial droop. SKIN: No rash, no jaundice, no diaphoresis. DIFFERENTIAL DIAGNOSIS: Appendicitis, ovarian cyst, ovarian torsion, ectopic , PID, infections, diverticulitis, UTI, obstruction, mesenteric ischemia, aortic pathology, inflammatory bowel disease, renal colic, PUD, pancreatitis, biliary pathology, hernia, volvulus, constipation, as well as other pathologies. EMERGENCY DEPARTMENT COURSE: The patient was seen and examined, laboratory testing and imaging was ordered. Patient was given medication for symptoms. Patient was again given medication for symptoms. I spoke to the patient about her findings, I do think hospitalization is warranted. The on-call hospitalist was consulted. MEDICAL DECISION MAKING: There is no leukocytosis. The patient is anemic but this appears baseline looking back at previous testing. There was a normal platelet count. No antony rning electrolyte abnormality or kidney failure. Lactic acid level was not elevated making bowel ischemia less likely. There was no liver enzyme elevation. The patient did not have any evidence for pancreatitis. EKG showed a normal sinus rhythm, no acute ischemia. Cardiac enzyme testing x1 is not consistent with acute cardiac injury. Abdominal series does not show any bowel obstruction, a potential ileus was seen. There was no free air. On exam, there was no peritonitis but the patient was dry heaving. Patient received IV saline for hydration. She received IV Pepcid. She was given IV Phenergan, IV Emend, IV Reglan and IV Benadryl. Despite all these meds, she still was nauseated. The patient was in the hospital and discharged yesterday for similar symptoms as she is presenting with today. She has received multiple medications and is still having difficulty here in the ED. I do not think she can be discharged back home. She has had an ongoing issue with this type of presentation but she is not stable for discharge. Symptom control was required in the hospital. I did speak to the patient, I talked with the caseworker intake. The on-call hospitalist was counseled. At this point time, the reason for her symptoms is not completely clear. EKG: There is a normal sinus rhythm, some LVH is present. The rate is 68. There are no PVCs, no ST elevation, the QTc interval is 469. There are some inverted T waves in the inferior and lateral leads which appear chronic when compared to old EKGs. Continuous Cardiac Monitoring: An order was placed for continuous cardiac monitoring. The monitor shows a rate of 74 with normal sinus rhythm. Impression & Plan Epigastric abdominal pain, Vomiting, Failure of outpatient treatment Past Med/Surg History Medical History Anemia, iron deficiency (Chronic) Anxiety (Chronic) Asthma (Chronic) COPD (chronic obstructive pulmonary disease) (Chronic) Depression (Chronic) Diverticulosis (Chronic) Frequent PVCs (Chronic) Gastroparesis (Chronic) GERD (gastroesophageal reflux disease) (Chronic) H/O irritable bowel syndrome (Chronic) HTN (hypertension) (Chronic) Hypothyroidism (Chronic) Mitral regurgitation (Chronic) "moderate per echo 09/21/15" MRSA bacteremia (Resolved) Neuropathy (Chronic) Pemphigus vulgaris Pernicious anemia (Chronic) Premature atrial contractions (Chronic) Tobacco abuse (Chronic) Surgical History History of bladder surgery History of laparoscopic partial gastrectomy (Resolved) History of pyloroplasty (Resolved) History of total hysterectomy (Resolved) Hx of cholecystectomy Hx of tonsillectomy (Resolved) S/P hysterectomy S/P laparoscopic sleeve gastrectomy S/P partial gastrectomy S/P repair of paraesophageal hernia "resulted in volvulus, required abdominal exploration" S/P tonsillectomy and adenoidectomy Family History Mother DM type 2 (diabetes mellitus, type 2) Coronary heart disease Social History Preferred Language: [place] Communication Ability: Effective Car Builder Required: No Beliefs That Will Affect Care: None marital status: / Current Living Situation: Family Current Living Situation Comment: brother Feels Safe at Home: Yes Safety Concerns: Feels Safe At This Time Smoking Status: Current every day smoker Tobacco Type: cigarettes ; Cigarettes Per Day: 20 ; Second Hand Exposure: No ; Hx Alcohol Use: Yes Alcohol type: beer Alcohol Intake Frequency: Weekly Alcohol Intake Frequency Comment: 3-4 beers/week Hx Substance Use: No Results & Data Vital Signs Vital Signs - 24 hr 12/07/19 11:34 12/07/19 12:14 12/07/19 13:34 Temperature 36.5 C Temperature Source Oral Pulse Rate 70 Pulse Rate [Apical] 61 Respiratory Rate 18 18 Blood Pressure 145/81 H Blood Pressure [Left Arm] 130/86 Blood Pressure Mean 102 Blood Pressure Mean [Left Arm] 100 Pulse Oximetry 99 97 98 Oxygen Delivery Method Room Air Room Air Room Air Sepsis Recent Fever Within 48 Hours No Sepsis New/Unexplained Change in Mental Status No Sepsis Action Taken by Nursing No Action Required Home Medications Current Medication List: was personally reviewed by me Laboratory Data Attestation: I reviewed the patient's lab results. Result diagrams: 12/07/19 11:45 12/07/19 11:45 Lab Results 12/07/19 12/07/19 12/07/19 Range/Units 11:45 11:45 13:20 WBC 5.50 (4.8-10.8) K/uL RBC 3.77 L (4.2-5.4) M/uL Hgb 9.6 L (12.0-16.0) g/dL Hct 30.7 L (37-47) % MCV 81.4 (80-100) fL MCH 25.5 (25-34) pg MCHC 31.3 L (32-36) g/dL RDW Std Deviation 53.9 H (36.4-46.3) fL RDW Coeff of Ana M 18.4 H (11.5-14.5) % Plt Count 240 (130-400) K/uL MPV 9.5 (7.4-10.4) fL Immature Gran % (Auto) 0.0 % Neut % (Auto) 58.1 % Lymph % (Auto) 30.7 % Latimer % (Auto) 9.5 % Eos % (Auto) 1.5 % Baso % (Auto) 0.2 % Immature Gran # (Auto) 0.00 (0.00-0.02) K/uL Neut # (Auto) 3.20 (1.4-6.5) K/uL Lymph # (Auto) 1.69 (1.2-3.4) K/uL Latimer # (Auto) 0.52 (0.11-0.59) K/uL Eos # (Auto) 0.08 (0-0.5) K/uL Baso # (Auto) 0.01 (0-0.2) K/uL Sodium 142 (136-145) mmol/L Potassium 3.4 L (3.5-5.1) mmol/L Chloride 111 H (98-107) mmol/L Carbon Dioxide 23 (21-32) mmol/L Anion Gap 8.0 (3-11) BUN 8 (7-18) mg/dl Creatinine 0.99 (0.6-1.2) mg/dl Est Cr Clr Drug Dosing 60.2 ml/min Est GFR ( Amer) 71.3 Est GFR (Non-Af Amer) 61.5 BUN/Creatinine Ratio 8.4 L (10-20) Glucose 83 (70-99) mg/dl Lactate 1.5 (0.4-2.0) mmol/L Calcium 8.4 L (8.5-10.1) mg/dl Magnesium 1.9 (1.8-2.4) mg/dl Total Bilirubin 0.3 (0.2-1) mg/dl AST 20 (15-37) U/L ALT 21 (12-78) U/L Alkaline Phosphatase 91 (45-117) U/L Troponin I < 0.015 (0-0.045) ng/ml Total Protein 6.3 L (6.4-8.2) gm/dl Albumin 2.8 L (3.4-5.0) gm/dl Globulin 3.5 (2.5-4.0) gm/dl Albumin/Globulin Ratio 0.8 L (0.9-2) Lipase 84 (73-393) U/L Administered Medications Hydromorphone HCl (Dilaudid) 0.5 mg IV Q1H PRN PRN Reason: Severe Pain Stop: 12/21/19 19:06 Last Admin: 12/07/19 20:05 Dose: 0.5 mg Documented by: [id number] Promethazine HCl 12.5 mg/ (Sodium Chloride) 50.5 mls @ 202 mls/hr IV Q6H PRN PRN Reason: Nausea And Vomiting Stop: 01/06/20 15:59 Last Infusion: 12/07/19 18:57 Dose: 0 mls/hr Documented by: [id number] Admin: 12/07/19 18:42 Dose: 202 mls/hr Documented by: [id number] Prochlorperazine 10 mg/ (Syringe) 10 mls @ 5 mls/min IV Q6H PRN PRN Reason: Nausea And Vomiting Stop: 01/06/20 15:59 Last Admin: 12/07/19 16:34 Dose: 5 mls/min Documented by: [id number] Sodium Chloride (Nss 1000ml) 1,000 mls @ 125 mls/hr IV .Q8H RUSSELL Stop: 01/06/20 17:14 Last Infusion: 12/07/19 19:35 Dose: 125 mls/hr Documented by: [id number] Admin: 12/07/19 17:25 Dose: 80 mls/hr Documented by: [id number] Ondansetron HCl (Zofran) 4 mg IV Q6H PRN PRN Reason: Nausea Stop: 01/06/20 15:59 Last Admin: 12/07/19 17:24 Dose: 4 mg Documented by: [id number] Discontinued Medications Diphenhydramine HCl (Benadryl) 25 mg IV NOW STA Stop: 12/07/19 14:23 Last Admin: 12/07/19 14:30 Dose: 25 mg Documented by: [id number] Famotidine (Pepcid 20mg Iv Push) 20 mg IV ONE STA Stop: 12/07/19 12:10 Last Admin: 12/07/19 12:22 Dose: 20 mg Documented by: [id number] Heparin Sodium (Beef Lung) (Heparin Sod 10 Unit/Ml Flush) Confirm Administered Dose 5 ml FLUSH .STK-MED ONE Stop: 12/07/19 16:32 Last Admin: 12/07/19 16:35 Dose: Not Given Documented by: [id number] Heparin Sodium (Porcine) (Heparin Sod 100 Unit/Ml Flush) Confirm Administered Dose 5 ml .ROUTE .STK-MED ONE Stop: 12/07/19 16:33 Last Admin: 12/07/19 16:34 Dose: 5 ml Documented by: [id number] Sodium Chloride (Nss 1000ml) 1,000 mls @ 999 mls/hr IV .Q1H1M ONE Stop: 12/07/19 13:09 Last Infusion: 12/07/19 13:23 Dose: 0 mls/hr Documented by: [id number] Admin: 12/07/19 12:22 Dose: 999 mls/hr Documented by: [id number] Promethazine HCl (Phenergan) 12.5 mg in 50.5 mls @ 202 mls/hr IV NOW STA Stop: 12/07/19 12:23 Last Infusion: 12/07/19 12:41 Dose: 0 mls/hr Documented by: [id number] Admin: 12/07/19 12:22 Dose: 202 mls/hr Documented by: [id number] Fosaprepitant 115 mg/ Sodium (Chloride) 115.0333 mls @ 230.067 mls/hr IV TODAY@1315 RUSSELL Stop: 12/07/19 16:00 Last Infusion: 12/07/19 13:48 Dose: 0 mls/hr Documented by: [id number] Admin: 12/07/19 13:16 Dose: 230.1 mls/hr Documented by: [id number] Metoclopramide HCl (Reglan) 10 mg IV NOW STA Stop: 12/07/19 14:23 Last Admin: 12/07/19 14:30 Dose: 10 mg Documented by: [id number] Morphine Sulfate (Morphine Sulfate) 4 mg IV Q15M PRN PRN Reason: Pain Stop: 12/21/19 12:08 Last Admin: 12/07/19 12:23 Dose: 4 mg Documented by: [id number] Imaging Data Radiologist's Impression: XR abdomen 2V w PA chest CLINICAL HISTORY: Nausea, vomiting, pain COMPARISON STUDY: 12/02/2019 FINDINGS: The erect chest reveals A-Port catheter. The heart is normal in size. There is no lobar consolidation. There is stable blunting of the right lateral costophrenic angle. Erect and supine views the abdomen reveal multiple small bowel air-fluid levels. There is some gas present within the colon. There is no significant small bowel dilatation. There is persistent contrast in the region of the gastroesophageal junction. There are postsurgical changes in the region of the stomach. IMPRESSION: 1. Nonspecific bowel gas pattern with multiple small bowel air-fluid levels. No conventional radiographic evidence of a high-grade bowel obstruction. The findings likely represent ileus or enteritis although an early bowel obstruction could appear similar. Chondral follow-up is advocated. Blood Pressure Blood Pressure Findings: Elevated blood pressure Blood Pressure Disposition: further management by hospitalist Discharge Plan Visit Data *Final* Discharge Date/Time: 12/07/19 15:36 Chief Complaint: Abdominal Pain Stated Complaint: abd pain ED Provider: Bayron Mcmillan Discharge Problem: Epigastric abdominal pain, Vomiting, Failure of outpatient treatment Patient Disposition: Admitted As Inpatient Condition: Good Discharge Instructions Interventions: ED Discharge Assessment Last Done: 12/07/19 15:36 Discharge Problem: Vomiting Qualifiers: Vomiting type: unspecified Vomiting Intractability: intractable Nausea presence: with nausea Qualified Code(s): R11.2 - Nausea with vomiting, unspecified
[2019-12-07 12:24] LABS: Basophils # (auto) 0.01 K/uL (0-0.2); Basophils % (auto) 0.2 %; Eosinophils # (auto) 0.08 K/uL (0-0.5); Eosinophils % (auto) 1.5 %; Hematocrit (blood only) 30.7 % (37-47); Hemoglobin 9.6 g/dL (12.0-16.0); Lymphocytes # (auto) 1.69 K/uL (1.2-3.4); Lymphocytes % (auto) 30.7 %; Mean Corpuscular Hemoglobin 25.5 pg (25-34); Mean Corpuscular Hgb Conc 31.3 g/dL (32-36); Mean Corpuscular Volume 81.4 fL (80-100); Mean Platelet Volume 9.5 fL (7.4-10.4); Monocytes # (auto) 0.52 K/uL (0.11-0.59); Monocytes % (auto) 9.5 %; Neutrophils % (auto) 58.1 %; Platelet Count 240 K/uL (130-400); RDW Coefficient of Variation 18.4 % (11.5-14.5); RDW Standard Deviation 53.9 fL (36.4-46.3); Red Blood Count 3.77 M/uL (4.2-5.4)
[2019-12-07 12:31] LABS: Alanine Aminotransferase 21 U/L (12-78); Albumin Level 2.8 gm/dl (3.4-5.0); Aspartate Aminotransferase 20 U/L (15-37); BUN Creatinine Ratio 8.4 (10-20); Blood Urea Nitrogen 8 mg/dl (7-18); Calcium 8.4 mg/dl (8.5-10.1); Carbon Dioxide 23 mmol/L (21-32); Chloride 111 mmol/L (98-107); Creatinine Clr Calc Pharmacy 60.2 ml/min; Est GFR (African American) 71.3; Est GFR (Non-African American) 61.5; Glucose 83 mg/dl (70-99); Magnesium 1.9 mg/dl (1.8-2.4); Potassium 3.4 mmol/L (3.5-5.1); Sodium 142 mmol/L (136-145)
[2019-12-07 12:36] LABS: Albumin Globulin Ratio 0.8 (0.9-2); Alkaline Phosphatase 91 U/L (45-117); Bilirubin,Total 0.3 mg/dl (0.2-1); Globulin 3.5 gm/dl (2.5-4.0); Lipase 84 U/L (73-393); Total Protein 6.3 gm/dl (6.4-8.2); Troponin I < 0.015 ng/ml (0-0.045)
[2019-12-07] MEDS ORDERED: FOSAPREPITANT DIMEGLUMINE 115 MG in 0.9 % SODIUM CHLORIDE 111.2 ML IV SCH (13:15)
--- NOTE | 2019-12-07 13:25 | XRay Report ---
XR abdomen 2V w PA chest CLINICAL HISTORY: Nausea, vomiting, pain COMPARISON STUDY: 12/02/2019 FINDINGS: The erect chest reveals A-Port catheter. The heart is normal in size. There is no lobar con solidation. There is stable blunting of the right lateral costophrenic angle. Erect and supine views the abdomen reveal multiple small bowel air-fluid levels. There is some gas present within the colon. There is no significant small bowel dilatation. There is persistent contrast in the region of the gastroesophageal junction. There are postsurgical c hanges in the region of the stomach. IMPRESSION: 1. Nonspecific bowel gas pattern with multiple small bowel air-fluid levels. No conventional radiogra phic evidence of a high-grade bowel obstruction. The findings likely represent ileus or enteritis alt annmarie an early bowel obstruction could appear similar. Chondral follow-up is advocated ACT 112: Negative or not required by law. Electronically signed by: Osmany Rahman M.D. 12/07/2019 1:24 PM
[2019-12-07] MEDS ORDERED: DiphenhydrAMINE HCL 50 MG/ML VIAL IV STA (14:22)
[2019-12-07] MEDS ORDERED: METOCLOPRAMIDE HCL INJ 5 MG/ML 2 ML VIAL IV STA (14:22)
--- NOTE | 2019-12-07 15:05 | History & Physical Report ---
Date of Service December 07, 2019 Assessment & Plan (1) Ileus: Recent hospitalization for a flare of her chronic gastroparesis. She was given Emend and othe IV antiemetics with some improvement in symptoms but not much during last hospitalization. She was also tried on erythromycin for 24 ulises rs or so prior to discharge. She was not feeling ideal prior to leaving but felt she was improved enough to return home. Recent erythromycin use may be contributing to symptoms prompting her return. ? She is also on Reglan TID WM. Now having severe nausea intractable and not well palliated with various IV antiemetics. Pain is also present with morphine not helping much. Abdomen is soft and TTP in epigastric region only. Pain is out of proportion to exam; consider bowel ischemia, lactate pending. With ongoing nausea and dry heaving, she may benefit from NG tube placement. I have contacted General Surgery to evaluate her and help with placement of this if needed based on her gastric surgical history. DDX includes but not limited to ileus, possible SBO, bowel ischemia or enteritis. She has noted chronic diarrhea 2/2 long-standing IBS. Consulting GI and Surgery for assistance. Cont supportive care and bowel rest at this time. (2) Gastroparesis: Long-standing with frequent flares, plan as above. (3) IBS (irritable bowel syndrome): Chronic, diarrhea-predominant. Stool cultures and c-diff studies pending. (4) Intractable vomiting with nausea: Prompting presentation back to the hospital today. Cont supportive care plan above. (5) Anemia: chronic, no transfusion needed at this time. Monitor (6) GERD (gastroesophageal reflux disease): Continue Protonix and Pepcid (7) Depression: On Lexapro 10 mg p.o. daily, hold while nauseous. (8) COPD (chronic obstructive pulmonary disease): Chronic, stable, no wheezing or evidence of exacerbation. (9) Hypothyroidism: Replaced Synthroid IV while n.p.o. (10) DVT prophylaxis: Hold heparin for now in setting of possible procedure. SCDs DNR Dispo-uncertain at this time. DO Fifi Flood Hospitalist History of Present Illness Chief Complaint: Severe abdominal pain and worsening nausea with dry heaves Primary Care Provider: Jaleel Coppola MD 59-year-old female with known history of gastroparesis status post partial gastrectomy in 2011, paraesophageal hernia repair which was laparoscopic with out mesh in 2011 and a reconstruction of pylorus performed on 2014. She has chronic gastroparesis and diarrhea predominant IBS and is frequently hospitalized for intractable nausea. She has difficulty vomiting, and therefore suffers from dry heaves when she is gotten her intractable nausea. She was recently hospitalized for this and given a multitude of different antiemetics. She is taking Reglan chronically at home and was trialed on erythromycin for 24 hours during her last hospitalization prior to discharge. She felt slightly better and was able to go home but was now coming back within 48 hours with worsening of symptoms and now pain in the epigastric area. The pain is described as sharp and starting in her epigastric area radiating to her back. She reports no flatus or bowel movement today and had some diarrhea yesterday. She denies any fevers chills or other infectious symptoms at this time. She ate yesterday as her last meal, and has not eaten anything today secondary to symptoms. Review of systems is otherwise negative. Allergies Allergy/AdvReac Type Severity Reaction Status Date / Time adhesive Allergy Mild SKIN Verified 12/07/19 12:01 IRRITATION amoxicillin AdvReac Intermediate yeast Verified 12/07/19 12:01 infection NSAIDS (Non-Steroidal AdvReac Mild indegestion Verified 12/07/19 12:01 Anti-Inflamma rofecoxib AdvReac Mild indigestion Verified 12/07/19 12:01 scopolamine AdvReac Mild rash from Verified 12/07/19 12:01 patch Home Medications Home Medications Medication Instructions Recorded Confirmed Type clonazepam 0.5 mg PO TID PRN #0 06/22/14 12/07/19 History famotidine [Pepcid] 40 mg PO BID #0 tab 04/15/17 12/07/19 History lansoprazole 30 mg PO QAM 05/26/18 12/07/19 History multivitamin 1 tab PO QPM 09/09/18 12/07/19 History ondansetron HCl [Zofran] 8 mg PO Q6H PRN 09/09/18 12/07/19 History levothyroxine [Synthroid] 88 mcg PO QAM 11/09/19 12/07/19 History metoclopramide HCl 10 mg PO TIDM 11/09/19 12/07/19 History escitalopram oxalate [Lexapro] 10 mg PO HS #0 tab 11/12/19 12/07/19 Rx metoprolol succinate 12.5 mg PO BID #30 tab 11/12/19 12/07/19 Rx acetaminophen [Tylenol Extra 1,000 mg PO Q6H PRN 12/02/19 12/07/19 History Strength] dicyclomine 10 mg PO BID PRN #60 cap 12/06/19 12/07/19 Rx promethazine 25 mg PO Q6H PRN #30 tab 12/06/19 12/07/19 Rx Past Med/Surg History Medical History Anemia, iron deficiency (Chronic) Anxiety (Chronic) Asthma (Chronic) COPD (chronic obstructive pulmonary disease) (Chronic) Depression (Chronic) Diverticulosis (Chronic) Frequent PVCs (Chronic) Gastroparesis (Chronic) GERD (gastroesophageal reflux disease) (Chronic) H/O irritable bowel syndrome (Chronic) HTN (hypertension) (Chronic) Hypothyroidism (Chronic) Mitral regurgitation (Chronic) "moderate per echo 09/21/15" MRSA bacteremia (Resolved) Neuropathy (Chronic) Pemphigus vulgaris Pernicious anemia (Chronic) Premature atrial contractions (Chronic) Tobacco abuse (Chronic) Surgical History History of bladder surgery History of laparoscopic partial gastrectomy (Resolved) History of pyloroplasty (Resolved) History of total hysterectomy (Resolved) Hx of cholecystectomy Hx of tonsillectomy (Resolved) S/P hysterectomy S/P laparoscopic sleeve gastrectomy S/P partial gastrectomy S/P repair of paraesophageal hernia "resulted in volvulus, required abdominal exploration" S/P tonsillectomy and adenoidectomy Family History Mother DM type 2 (diabetes mellitus, type 2) Coronary heart disease Social History Preferred Language: Spanish 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[employer] Supplies Required: No Beliefs That Will Affect Care: None marital status: / Current Living Situation: Family Current Living Situation Comment: brother Feels Safe at Home: Yes Safety Concerns: Feels Safe At This Time Smoking Status: Current every day smoker Tobacco Type: cigarettes ; Cigarettes Per Day: 20 ; Second Hand Exposure: No ; Hx Alcohol Use: Yes Alcohol type: beer Alcohol Intake Frequency: Weekly Alcohol Intake Frequency Comment: 3-4 beers/week Hx Substance Use: No Review of Systems Review of Systems: All systems reviewed & are unremarkable except as noted in HPI & below Physical Exam Physical Exam: CONSTITUTIONAL: WNWD, vitals as above, generally ill-appearing and dry heaving. EYES: normal conjunctivae, no scleral icterus ENT: external ear and nose normal,MMM RESPIRATORY: clear to auscultation bilaterally, no crackles, rales or wheezes, normal respiratory effort CARDIOVASCULAR: regular rate and rhythm, S1 and 2 heard without murmurs, gallops or rubs, no JVD, no peripheral edema GASTROINTESTINAL: no bowel sounds audible, soft, TTP in epigastric region, soft and nondistended MUSCULOSKELETAL: moves all extremities equally SKIN: warm and dry NEUROLOGIC: CN 2-12 grossly intact, normal cognition, no gross focal deficits. PSYCHIATRIC: alert cooperative and oriented Results & Data Vital Signs (Past 12 Hours) Vital Signs Temp Pulse Pulse Resp BP BP Pulse Ox 12/07/19 13:34 61 18 130/86 98 12/07/19 12:14 97 12/07/19 11:34 36.5 C 70 18 145/81 H 99 Laboratory Results Short CBC 12/07/19 Range/Units 11:45 WBC 5.50 (4.8-10.8) K/uL Hgb 9.6 L (12.0-16.0) g/dL Hct 30.7 L (37-47) % Plt Count 240 (130-400) K/uL BMP 12/07/19 11:45 Sodium 142 Potassium 3.4 L Chloride 111 H Carbon Dioxide 23 BUN 8 Creatinine 0.99 Glucose 83 Calcium 8.4 L Cardiac Enzymes 12/07/19 Range/Units 11:45 Troponin I < 0.015 (0-0.045) ng/ml Liver Function 12/07/19 Range/Units 11:45 Total Bilirubin 0.3 (0.2-1) mg/dl AST 20 (15-37) U/L ALT 21 (12-78) U/L Alkaline Phosphatase 91 (45-117) U/L Albumin 2.8 L (3.4-5.0) gm/dl Diagnostic Findings XR abdomen 2V w PA chest CLINICAL HISTORY: Nausea, vomiting, pain COMPARISON STUDY: 12/02/2019 FINDINGS: The erect chest reveals A-Port catheter. The heart is normal in size. There is no lobar consolidation. There is stable blunting of the right lateral costophrenic angle. Erect and supine views the abdomen reveal multiple small bowel air-fluid levels. There is some gas present within the colon. There is no significant small bowel dilatation. There is persistent contrast in the region of the gastroesophageal junction. There are postsurgical changes in the region of the stomach. IMPRESSION: 1. Nonspecific bowel gas pattern with multiple small bowel air-fluid levels. No conventional radiographic evidence of a high-grade bowel obstruction. The findings likely represent ileus or enteritis although an early bowel obstruction could appear similar. Chondral follow-up is advocated [place] [facility] series FINDINGS: Ingestion: The patient was able to ingest barium and the barium pill without difficulty. Aspiration: None. Esophageal mucosa: Normal. No evidence of intrinsic or extrinsic mass lesion. Esophageal motility: Normal. Esophageal length: Normal. Gastroesophageal junction: Postsurgical changes at the gastroesophageal reflux with dense material at the level of the GE junction possibly reflecting barium within a fundoplication or other surgical material. Surgical clips and suture lines project over the epigastrium. No evidence of a hiatal hernia. No stricture . Reflux: Significant gastroesophageal reflux to the level of the midesophagus. Stomach: Postsurgical changes of the stomach may indicate prior sleeve gastrectomy or other postsurgical change. Limited evaluation of the stomach demonstrates normal gastric emptying. No obstruction or leak. Proximal small bowel: Duodenal sweep and proximal small bowel normal. Fluoroscopy dosage (mGy): Not available. Fluoroscopy time: 2.6 minutes. Number or time of high level fluoroscopy (HLF), digital spot, or digital subtraction images: 21. IMPRESSION: 1. Gastroesophageal reflux to the level of the midesophagus. 2. Postsurgical changes of the gastroesophageal junction and stomach. No evidence of a recurrent hiatal hernia. CT abd pelvis IV con only FINDINGS: Advertising Rep topogram: Contrast projects over the gastroesophageal junction. Cholecystectomy clips. Lung bases: Normal heart size. No pericardial or pleural effusion. No focal i nfiltrate or nodule at the lung bases. Liver: Normal morphology. Density suggestive of hepatic steatosis. No focal lesion. Patent hepatic vasculature. Biliary: Mild biliary ductal prominence likely a reservoir effect in the post cholecystectomy state. Gallbladder surgically absent. Pancreas: Mild parenchymal atrophy. Mild prominence of the pancreatic duct. This is unchanged. Spleen: Normal. Splenule noted. Adrenal glands: Stable 2 cm nodule in the right adrenal gland, very likely benign adenoma though indeterminate on this contrast-enhanced study. Left adrenal gland normal. Kidneys and ureters: Cortical thinning suggested in the left kidney to a mild degree, similar to prior. Subcentimeter hypodensities too small to characterize but likely cysts. Duplicated right renal collecting system. No hydronephrosis. Ureters nondistended. No nephrolithiasis. Bladder: Normal. Pelvic organs: Uterus surgically absent. No adnexal masses. Bowel: Mild diverticulosis scattered throughout the colon. No convincing evidence of pericolonic inflammatory change. Normal appendix. No bowel obstruction. Postsurgical changes of the stomach with gastric sleeve procedure suspected. Stable appearance of the contrast at the gastroesophageal junction potentially from prior fundoplication. Peritoneal cavity: No free fluid or intraperitoneal gas. Lymph nodes: No enlarged lymph nodes in the abdomen or pelvis. Vasculature: Aorta and IVC patent and normal in caliber. Abdominal wall: Normal. Musculoskeletal: Normal. IMPRESSION: 1. No acute intra-abdominal pathology. 2. Stable postsurgical changes of the stomach and gastroesophageal junction. 3. Mild diverticulosis coli without evidence of diverticulitis. 4. Suspected hepatic steatosis. 5. Additional chronic findings stable from prior. Code Status & VTE Plan Code Status full code VTE Prophylaxis Plan VTE Prophylaxis will be ordered: Yes (1) GERD (gastroesophageal reflux disease) Esophagitis presence: with esophagitis Qualified Code(s): K21.0 - Gastro- esophageal reflux disease with esophagitis (2) Depression Depression Type: unspecified Qualified Code(s): F32.9 - Major depressive disorder, single episode, unspecified (3) Hypothyroidism Hypothyroidism type: acquired Qualified Code(s): E03.9 - Hypothyroidism, unspecified
[2019-12-07] MEDS ORDERED: PROMETHAZINE HCL 25 MG TAB PO PRN (15:08)
[2019-12-07] MEDS ORDERED: clonazePAM 0.5 MG TAB PO PRN (15:08)
[2019-12-07] MEDS ORDERED: DICYCLOMINE HCL 10 MG CAP PO PRN (15:08)
[2019-12-07] MEDS ORDERED: ACETAMINOPHEN 325 MG TAB PO PRN (16:00)
[2019-12-07] MEDS ORDERED: HEPARIN 100 UNIT/ML 5ML FLUSH ONE (16:32)
[2019-12-07] MEDS: PROCHLORPERAZINE 10 MG in SYRINGE 8 ML IV PRN ×2 (16:34→23:38)
[2019-12-07] MEDS: ONDANSETRON INJ 2 MG/ML 2 ML VIAL IV PRN (17:24)
[2019-12-07] MEDS: SODIUM CHLORIDE 0.9% 1000ML 1,000 ML IV SCH (17:25)
[2019-12-07] MEDS: PROMETHAZINE HCL 12.5 MG in SODIUM CHLORIDE 0.9% 50 ML IV PRN (18:42)
--- NOTE | 2019-12-07 19:57 | Surgery Consultation ---
Date of Consultation December 07, 2019 Assessment & Plan (1) Ileus: pt is a 59 year-old female who was admitted to hospital for epigastric pain, IMP: most likely pt's epigastric pain relate to erythromycin, but could not R/O ileus or SBO, no emergent surgery indication now, conservative treatment, stop erythromycin, IV fluid, NPO, no need NG tube now, pt may need CT scan if pt's symptoms are worse tomorrow, repeat labs in am, will F/U (2) IBS (irritable bowel syndrome): (3) SBO (small bowel obstruction): History of Present Illness Attending Physician: Juliane Long, DO History of Present Illness Chief Complaint: Severe abdominal pain and worsening nausea with dry heaves Primary Care Provider: Jaleel Coppola MD 59-year-old female with known history of gastroparesis status post partial gastrectomy in 2011, paraesophageal hernia repair which was laparoscopic with out mesh in 2011 and a reconstruction of pylorus performed on 2014. She has chronic gastroparesis and diarrhea predominant IBS and is frequently hospitalized for intractable nausea. She has difficulty vomiting, and therefore suffers from dry heaves when she is gotten her intractable nausea. She was recently hospitalized for this and given a multitude of different antiemetics. She is taking Reglan chronically at home and was trialed on erythromycin for 24 hours during her last hospitalization prior to discharge. She felt slightly better and was able to go home but was now coming back within 48 hours with worsening of symptoms and now pain in the epigastric area. The pain is described as sharp and starting in her epigastric area radiating to her back. She reports no flatus or bowel movement today and had some diarrhea yesterday. She denies any fevers chills or other infectious symptoms at this time. She ate yesterday as her last meal, and has not eaten anything today secondary to symptoms. Review of systems is otherwise negative. I ( Jazmín Jarrell MD) got a call for consult epigastric pain, possible SBO, I reviewed pt's H/P, labs, CT scan, UGI study, KUB with pt, pt said she feels better, less epigastric pain, some nausea, no vomiting, pt started erythromycin over this weekend. Allergies Allergy/AdvReac Type Severity Reaction Status Date / Time adhesive Allergy Mild SKIN Verified 12/07/19 12:01 IRRITATION amoxicillin AdvReac Intermediate yeast Verified 12/07/19 12:01 infection NSAIDS (Non-Steroidal AdvReac Mild indegestion Verified 12/07/19 12:01 Anti-Inflamma rofecoxib AdvReac Mild indigestion Verified 12/07/19 12:01 scopolamine AdvReac Mild rash from Verified 12/07/19 12:01 patch Home Medications Home Medications Medication Instructions Recorded Confirmed Type clonazepam 0.5 mg PO TID PRN #0 06/22/14 12/07/19 History famotidine [Pepcid] 40 mg PO BID #0 tab 04/15/17 12/07/19 History lansoprazole 30 mg PO QAM 05/26/18 12/07/19 History multivitamin 1 tab PO QPM 09/09/18 12/07/19 History ondansetron HCl [Zofran] 8 mg PO Q6H PRN 09/09/18 12/07/19 History levothyroxine [Synthroid] 88 mcg PO QAM 11/09/19 12/07/19 History metoclopramide HCl 10 mg PO TIDM 11/09/19 12/07/19 History escitalopram oxalate [Lexapro] 10 mg PO HS #0 tab 11/12/19 12/07/19 Rx metoprolol succinate 12.5 mg PO BID #30 tab 11/12/19 12/07/19 Rx acetaminophen [Tylenol Extra 1,000 mg PO Q6H PRN 12/02/19 12/07/19 History Strength] dicyclomine 10 mg PO BID PRN #60 cap 12/06/19 12/07/19 Rx promethazine 25 mg PO Q6H PRN #30 tab 12/06/19 12/07/19 Rx Past Med/Surg History Medical History Anemia, iron deficiency (Chronic) Anxiety (Chronic) Asthma (Chronic) COPD (chronic obstructive pulmonary disease) (Chronic) Depression (Chronic) Diverticulosis (Chronic) Frequent PVCs (Chronic) Gastroparesis (Chronic) GERD (gastroesophageal reflux disease) (Chronic) H/O irritable bowel syndrome (Chronic) HTN (hypertension) (Chronic) Hypothyroidism (Chronic) Mitral regurgitation (Chronic) "moderate per echo 09/21/15" MRSA bacteremia (Resolved) Neuropathy (Chronic) Pemphigus vulgaris Pernicious anemia (Chronic) Premature atrial contractions (Chronic) Tobacco abuse (Chronic) Surgical History History of bladder surgery History of laparoscopic partial gastrectomy (Resolved) History of pyloroplasty (Resolved) History of total hysterectomy (Resolved) Hx of cholecystectomy Hx of tonsillectomy (Resolved) S/P hysterectomy S/P laparoscopic sleeve gastrectomy S/P partial gastrectomy S/P repair of paraesophageal hernia "resulted in volvulus, required abdominal exploration" S/P tonsillectomy and adenoidectomy Family History Mother DM type 2 (diabetes mellitus, type 2) Coronary heart disease Social History Preferred Language: Estonian Communication Ability: Effective Circuit Judge Required: No Beliefs That Will Affect Care: None marital status: / Current Living Situation: Family Current Living Situation Comment: brother Feels Safe at Home: Yes Safety Concerns: Feels Safe At This Time Smoking Status: Current every day smoker Tobacco Type: cigarettes ; Cigarettes Per Day: 20 ; Second Hand Exposure: No ; Hx Alcohol Use: Yes Alcohol type: beer Alcohol Intake Frequency: Weekly Alcohol Intake Frequency Comment: 3-4 beers/week Hx Substance Use: No Allergies Allergy/AdvReac Type Severity Reaction Status Date / Time adhesive Allergy Mild SKIN Verified 12/07/19 12:01 IRRITATION amoxicillin AdvReac Intermediate yeast Verified 12/07/19 12:01 infection NSAIDS (Non-Steroidal AdvReac Mild indegestion Verified 12/07/19 12:01 Anti-Inflamma rofecoxib AdvReac Mild indigestion Verified 12/07/19 12:01 scopolamine AdvReac Mild rash from Verified 12/07/19 12:01 patch Home Medications Home Medications Medication Instructions Recorded Confirmed Type clonazepam 0.5 mg PO TID PRN #0 06/22/14 12/07/19 History famotidine [Pepcid] 40 mg PO BID #0 tab 04/15/17 12/07/19 History lansoprazole 30 mg PO QAM 05/26/18 12/07/19 History multivitamin 1 tab PO QPM 09/09/18 12/07/19 History ondansetron HCl [Zofran] 8 mg PO Q6H PRN 09/09/18 12/07/19 History levothyroxine [Synthroid] 88 mcg PO QAM 11/09/19 12/07/19 History metoclopramide HCl 10 mg PO TIDM 11/09/19 12/07/19 History escitalopram oxalate [Lexapro] 10 mg PO HS #0 tab 11/12/19 12/07/19 Rx metoprolol succinate 12.5 mg PO BID #30 tab 11/12/19 12/07/19 Rx acetaminophen [Tylenol Extra 1,000 mg PO Q6H PRN 12/02/19 12/07/19 History Strength] dicyclomine 10 mg PO BID PRN #60 cap 12/06/19 12/07/19 Rx promethazine 25 mg PO Q6H PRN #30 tab 12/06/19 12/07/19 Rx Patient History Medical History Anemia, iron deficiency (Chronic) Anxiety (Chronic) Asthma (Chronic) COPD (chronic obstructive pulmonary disease) (Chronic) Depression (Chronic) Diverticulosis (Chronic) Frequent PVCs (Chronic) Gastroparesis (Chronic) GERD (gastroesophageal reflux disease) (Chronic) H/O irritable bowel syndrome (Chronic) HTN (hypertension) (Chronic) Hypothyroidism (Chronic) Mitral regurgitation (Chronic) "moderate per echo 09/21/15" MRSA bacteremia (Resolved) Neuropathy (Chronic) Pemphigus vulgaris Pernicious anemia (Chronic) Premature atrial contractions (Chronic) Tobacco abuse (Chronic) Surgical History History of bladder surgery History of laparoscopic partial gastrectomy (Resolved) History of pyloroplasty (Resolved) History of total hysterectomy (Resolved) Hx of cholecystectomy Hx of tonsillectomy (Resolved) S/P hysterectomy S/P laparoscopic sleeve gastrectomy S/P partial gastrectomy S/P repair of paraesophageal hernia "resulted in volvulus, required abdominal exploration" S/P tonsillectomy and adenoidectomy Family History Mother DM type 2 (diabetes mellitus, type 2) Coronary heart disease Social History Preferred Language: Estonian Communication Ability: Effective Circuit Judge Required: No Beliefs That Will Affect Care: None marital status: / Current Living Situation: Family Current Living Situation Comment: brother Feels Safe at Home: Yes Safety Concerns: Feels Safe At This Time Smoking Status: Current every day smoker Tobacco Type: cigarettes ; Cigarettes Per Day: 20 ; Second Hand Exposure: No ; Hx Alcohol Use: Yes Alcohol type: beer Alcohol Intake Frequency: Weekly Alcohol Intake Frequency Comment: 3-4 beers/week Hx Substance Use: No Review of Systems Review of Systems: All systems reviewed & are unremarkable except as noted in HPI & below Constitutional: as per Subjective / HPI Eyes: as per Subjective / HPI Ear, Nose, Mouth, Throat: as per Subjective / HPI Respiratory: as per Subjective / HPI Cardiovascular: as per Subjective / HPI Gastrointestinal: as per Subjective / HPI Genitourinary: as per Subjective / HPI Musculoskeletal: as per Subjective / HPI Integumentary: as per Subjective / HPI Neurologic: as per Subjective / HPI Psychiatric: as per Subjective / HPI Endocrine: as per Subjective / HPI Hematologic / Lymphatic: as per Subjective / HPI Allergy / Immunological: as per Subjective / HPI Physical Exam Constitutional: WD/WN, vitals as above well developed and well nourished Eyes: PERRL, conjunctivae normal, anicteric sclerae ENMT: external ear and nose normal, oropharynx normal Neck: trachea midline, no thyromegaly Respiratory: normal respiratory effort, lungs clear to auscultation Cardiovascular: RRR, no murmur, no edema Rate/Rhythm: regular rate and regular rhythm Heart Sounds: normal S1 and normal S2 Gastrointestinal (Abdomen): Percussion/Palpation: abdomen soft mild tenderness at epigastric area, no rebound pain, no distend, no rigid, BS + Skin: no rashes, warm and dry Neurologic: patellar DTR's 2+ bilat, sensation intact Psychiatric: Orientation: alert and oriented x 3 Results & Data Vital Signs (Past 12 Hours) Vital Signs Temp Pulse Pulse Pulse Resp BP BP 12/07/19 15:50 37 C 74 16 135/90 12/07/19 15:38 65 127/81 12/07/19 15:00 64 18 105/83 12/07/19 13:34 61 18 130/86 12/07/19 12:14 12/07/19 11:34 36.5 C 70 18 145/81 H Pulse Ox 12/07/19 15:50 95 12/07/19 15:38 12/07/19 15:00 99 12/07/19 13:34 98 12/07/19 12:14 97 12/07/19 11:34 99 Laboratory Results Abnormal lab results 12/07/19 12/07/19 Range/Units 11:45 11:45 RBC 3.77 L (4.2-5.4) M/uL Hgb 9.6 L (12.0-16.0) g/dL Hct 30.7 L (37-47) % MCHC 31.3 L (32-36) g/dL RDW Std Deviation 53.9 H (36.4-46.3) fL RDW Coeff of Ana M 18.4 H (11.5-14.5) % Potassium 3.4 L (3.5-5.1) mmol/L Chloride 111 H (98-107) mmol/L BUN/Creatinine Ratio 8.4 L (10-20) Calcium 8.4 L (8.5-10.1) mg/dl Total Protein 6.3 L (6.4-8.2) gm/dl Albumin 2.8 L (3.4-5.0) gm/dl Albumin/Globulin Ratio 0.8 L (0.9-2) Diagnostic Findings R abdomen 2V w PA chest CLINICAL HISTORY: Nausea, vomiting, pain COMPARISON STUDY: 12/02/2019 FINDINGS: The erect chest reveals A-Port catheter. The heart is normal in size. There is no lobar consolidation. There is stable blunting of the right lateral costophrenic angle. Erect and supine views the abdomen reveal multiple small bowel air-fluid levels. There is some gas present within the colon. There is no significant small bowel dilatation. There is persistent contrast in the region of the gastroesophageal junction. There are postsurgical changes in the region of the stomach. IMPRESSION: 1. Nonspecific bowel gas pattern with multiple small bowel air-fluid levels. No conventional radiographic evidence of a high-grade bowel obstruction. The findings likely represent ileus or enteritis although an early bowel obstruction could appear similar. Chondral follow-up is advocated
[2019-12-07] MEDS: HYDROmorphone INJ 0.5 MG/0.5 ML SYR IV PRN (20:05)
[2019-12-07] MEDS: FAMOTIDINE 20 MG in SYRINGE 3 ML IV SCH (20:16)
[2019-12-07] MEDS: MULTIVITAMIN TAB PO SCH (20:16)
[2019-12-07] MEDS ORDERED: ESCITALOPRAM OXALATE 10 MG TAB PO SCH (21:00)
[2019-12-08] MEDS: SODIUM CHLORIDE 0.9% 1000ML 1,000 ML IV SCH ×3 (02:15→18:33)
[2019-12-08] MEDS: ACETAMINOPHEN 1,000 MG/100 ML VIAL IV PRN ×2 (02:39→16:08)
[2019-12-08] MEDS: PROMETHAZINE HCL 12.5 MG in SODIUM CHLORIDE 0.9% 50 ML IV PRN ×2 (03:19→20:02)
[2019-12-08] MEDS: LEVOTHYROXINE SODIUM 88 MCG TABLET PO SCH (06:17)
[2019-12-08 06:29] LABS: Hemoglobin 8.4 g/dL (12.0-16.0); Mean Corpuscular Hemoglobin 25.8 pg (25-34); Mean Corpuscular Hgb Conc 31.1 g/dL (32-36); Mean Corpuscular Volume 83.1 fL (80-100); Platelet Count 186 K/uL (130-400); RDW Coefficient of Variation 18.6 % (11.5-14.5); RDW Standard Deviation 56.1 fL (36.4-46.3); Red Blood Count 3.25 M/uL (4.2-5.4); White Blood Count 4.39 K/uL (4.8-10.8)
[2019-12-08 07:06] LABS: BUN Creatinine Ratio 6.5 (10-20); Calcium 7.4 mg/dl (8.5-10.1); Creatinine Clr Calc Pharmacy 70.9 ml/min; Est GFR (African American) 86.9; Magnesium 1.7 mg/dl (1.8-2.4); Potassium 3.1 mmol/L (3.5-5.1)
[2019-12-08 07:07] LABS: Phosphorus 3.6 mg/dl (2.5-4.9)
--- NOTE | 2019-12-08 08:37 | Gastrointestinal Consultation ---
Date of Consultation December 08, 2019 Assessment & Plan (1) Epigastric abdominal pain: 59 year old female w/ history of paraesophageal hernia s/p partial sleeve gastrectomy, gastroparesis, IBS admitted through the ED w/ abd pain, nausea, dry heaving imaging at that time concerning for ileus - this AM endorses resolution of pain, dry heaving and notes her nausea is back to baseline. Is passing gas/stool. - NPO - IV fluids hydration, electrolyte correction and management - KUB this am - Continue Zofran as needed - Continue Phenergan nausea - Resume Reglan 10mg PO TID pending imaging - Continue Dicyclomine 10mg TID Thank you for allowing us to participate in the care of this patient. Please call with any acute changes, questions or concerns. Please see addendum below with additional recommendation from my supervising physician. Supervising Physician Co-Signing Physician Notes Attending attestation I have seen, examined this patient, and agree with the findings and above by our mid-level provider VANIA Shepherd, with the following additions -Entirely asymptomatic today, x-rays improved, needs to be educated on gastro- paretic diet and follow-up with Dr. Ridley as an outpatient. History of Present Illness Reason for Consultation: abd pain, nausea, abdnormal imaging Requesting Physician: Marya Attending Physician: Rosi Malhotra MD History of Present Illness 59 year old female w/ history of paraesophageal hernia s/p partial sleeve gastrectomy, gastroparesis, IBS. She's been having gastroparesis flare and receiving monthly Emend IV up till February 2019. This year received Emend IV on 09/24/2019 and 11/09/2019. At home she has Zofran 8mg q6hr prn nausea + Reglan 10mg TID. She was just again admitted to [facility] last week for suspected gastroparesis flare and discharged 12/06/19. During admission she received Presented through the ED the following day and subsequently admitted as imaging was equivicol for SBO/ileus. GI asked to evaluated. Pt was seen and evaluated, chart reviewed. Pt notes this AM she is feeling well - suggests her abdominal pain has resolved. She does have nausea but this is chronic, unchanged. No vomiting. No dry heaving. Suggests she is passing gas and stool. Moves bowels this AM, small, loose. No black or bloody stool. KUB 12/07/19: Nonspecific bowel gas pattern with multiple small bowel air-fluid levels. No conventional radiographic evidence of a high-grade bowel obstruction. The findings likely represent ileus or enteritis although an early bowel obstruction could appear similar. Chondral follow-up is advocated Allergies Allergy/AdvReac Type Severity Reaction Status Date / Time adhesive Allergy Mild SKIN Verified 12/07/19 12:01 IRRITATION amoxicillin AdvReac Intermediate yeast Verified 12/07/19 12:01 infection NSAIDS (Non-Steroidal AdvReac Mild indegestion Verified 12/07/19 12:01 Anti-Inflamma rofecoxib AdvReac Mild indigestion Verified 12/07/19 12:01 scopolamine AdvReac Mild rash from Verified 12/07/19 12:01 patch Home Medications Home Medications Medication Instructions Recorded Confirmed Type clonazepam 0.5 mg PO TID PRN #0 06/22/14 12/07/19 History famotidine [Pepcid] 40 mg PO BID #0 tab 04/15/17 12/07/19 History lansoprazole 30 mg PO QAM 05/26/18 12/07/19 History multivitamin 1 tab PO QPM 09/09/18 12/07/19 History ondansetron HCl [Zofran] 8 mg PO Q6H PRN 09/09/18 12/07/19 History levothyroxine [Synthroid] 88 mcg PO QAM 11/09/19 12/07/19 History metoclopramide HCl 10 mg PO TIDM 11/09/19 12/07/19 History escitalopram oxalate [Lexapro] 10 mg PO HS #0 tab 11/12/19 12/07/19 Rx metoprolol succinate 12.5 mg PO BID #30 tab 11/12/19 12/07/19 Rx acetaminophen [Tylenol Extra 1,000 mg PO Q6H PRN 12/02/19 12/07/19 History Strength] dicyclomine 10 mg PO BID PRN #60 cap 12/06/19 12/07/19 Rx promethazine 25 mg PO Q6H PRN #30 tab 12/06/19 12/07/19 Rx Patient History Medical History Anemia, iron deficiency (Chronic) Anxiety (Chronic) Asthma (Chronic) COPD (chronic obstructive pulmonary disease) (Chronic) Depression (Chronic) Diverticulosis (Chronic) Frequent PVCs (Chronic) Gastroparesis (Chronic) GERD (gastroesophageal reflux disease) (Chronic) H/O irritable bowel syndrome (Chronic) HTN (hypertension) (Chronic) Hypothyroidism (Chronic) Mitral regurgitation (Chronic) "moderate per echo 09/21/15" MRSA bacteremia (Resolved) Neuropathy (Chronic) Pemphigus vulgaris Pernicious anemia (Chronic) Premature atrial contractions (Chronic) Tobacco abuse (Chronic) Surgical History History of bladder surgery History of laparoscopic partial gastrectomy (Resolved) History of pyloroplasty (Resolved) History of total hysterectomy (Resolved) Hx of cholecystectomy Hx of tonsillectomy (Resolved) S/P hysterectomy S/P laparoscopic sleeve gastrectomy S/P partial gastrectomy S/P repair of paraesophageal hernia "resulted in volvulus, required abdominal exploration" S/P tonsillectomy and adenoidectomy Family History Mother DM type 2 (diabetes mellitus, type 2) Coronary heart disease Social History Preferred Language: Nepalese Communication Ability: Effective 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 Beliefs That Will Affect Care: None marital status: / Current Living Situation: Family Current Living Situation Comment: brother Feels Safe at Home: Yes Safety Concerns: Feels Safe At This Time Smoking Status: Current every day smoker Tobacco Type: cigarettes ; Cigarettes Per Day: 20 ; Second Hand Exposure: No ; Hx Alcohol Use: Yes Alcohol type: beer Alcohol Intake Frequency: Weekly Alcohol Intake Frequency Comment: 3-4 beers/week Hx Substance Use: No Review of Systems Constitutional: no fever and no chills Respiratory: no cough Cardiovascular: no chest pain Gastrointestinal: + abdominal pain and + nausea; no blood in stools and no melena Physical Exam Constitutional: well nourished; no acute distress Respiratory: normal respiratory effort Cardiovascular: Rate/Rhythm: regular rate Gastrointestinal (Abdomen): normal bowel sounds, soft, nontender, no hepatosplenomegaly Results & Data ([facility]) Vital Signs (Past 12 Hours) Vital Signs Temp Pulse Resp BP Pulse Ox Pulse Ox 12/08/19 07:22 36.8 C 54 L 18 111/75 97 12/07/19 23:30 99 12/07/19 23:12 36.5 C 52 L 16 131/87 99
[2019-12-08] MEDS ORDERED: LEVOTHYROXINE SODIUM 44 MCG in SYRINGE 0 ML IV SCH (09:00)
[2019-12-08] MEDS: FAMOTIDINE 20 MG in SYRINGE 3 ML IV SCH ×2 (09:08→20:23)
--- NOTE | 2019-12-08 10:09 | XRay Report ---
KUB HISTORY: ileus, measure distention if present COMPARISON: Chest and abdominal series 12/07/2019. FINDINGS: The bowel gas pattern is unremarkable. There are no dilated loops of small bowel to suggest an obstruction. No renal calculi. No ureteral calculi. No pneumoperitoneum or pneumatosis. Colonic diverticulosis. Suture material within the left upper quadrant. Prior cholecystectomy. A few nondiste nded gas-filled loops of small bowel measuring up to 2.9 cm. This has improved in the interval. Redem onstration of the calcified nodule adjacent to the gastroesophageal junction. IMPRESSION: A few nondistended gas-filled loops of small bowel. This has improved. No evidence for bowel obstruct ion or significant ileus. ACT 112: Negative or not required by law. Electronically signed by: Radhames Jackson M.D. 12/08/2019 10:08 AM
[2019-12-08] MEDS: LANSOPRAZOLE 30 MG SOLTAB SL SCH (10:22)
--- NOTE | 2019-12-08 11:25 | Surgery Progress Note ---
Date of Service December 08, 2019 Assessment & Plan (1) Ileus: Vitals stable, afebrile minimal abdominal pain KUB today showing no obstruction and improvement of bowel dilatation compared to previous + flatus Plan: Okay from surgical prospective for clear liquids encourage ambulation and OOB to chair continue medical management GI following Dr. Jarrell has seen and examined pt, agrees with above Subjective feeling better today pain improved passing gas would like to have some broth baseline nausea Physical Exam Constitutional: WD/WN, vitals as above no acute distress Respiratory: normal respiratory effort; no respiratory distress Gastrointestinal (Abdomen): Inspection/Auscultation: abdomen normal to inspection; abdomen not distended Percussion/Palpation: abdomen soft; abdomen nontender, no guarding and abdomen not rigid Skin: no rashes, warm and dry Psychiatric: Orientation: alert and oriented x 3 Results & Data Vital Signs (Past 12 Hours) Vital Signs Temp Pulse Resp BP Pulse Ox Pulse Ox 12/08/19 07:22 36.8 C 54 L 18 111/75 97 12/07/19 23:30 99 Laboratory Results 12/08/19 12/08/19 12/08/19 Range/Units 06:14 06:00 06:00 WBC 4.39 L (4.8-10.8) K/uL RBC 3.25 L (4.2-5.4) M/uL Hgb 8.4 L (12.0-16.0) g/dL Hct 27.0 L (37-47) % MCV 83.1 (80-100) fL MCH 25.8 (25-34) pg MCHC 31.1 L (32-36) g/dL RDW Std Deviation 56.1 H (36.4-46.3) fL RDW Coeff of Ana M 18.6 H (11.5-14.5) % Plt Count 186 (130-400) K/uL MPV 9.0 (7.4-10.4) fL Immature Gran % (Auto) % Neut % (Auto) % Lymph % (Auto) % [place] % (Auto) % Eos % (Auto) % Baso % (Auto) % Immature Gran # (Auto) (0.00-0.02) K/uL Neut # (Auto) (1.4-6.5) K/uL Lymph # (Auto) (1.2-3.4) K/uL [place] # (Auto) (0.11-0.59) K/uL Eos # (Auto) (0-0.5) K/uL Baso # (Auto) (0-0.2) K/uL Sodium 144 (136-145) mmol/L Potassium 3.1 L (3.5-5.1) mmol/L Chloride 113 H (98-107) mmol/L Carbon Dioxide 23 (21-32) mmol/L Anion Gap 8.0 (3-11) BUN 5 L (7-18) mg/dl Creatinine 0.84 (0.6-1.2) mg/dl Est Cr Clr Drug Dosing 70.9 ml/min Est GFR ( Amer) 86.9 Est GFR (Non-Af Amer) 75.0 BUN/Creatinine Ratio 6.5 L (10-20) Glucose 80 (70-99) mg/dl Lactate (0.4-2.0) mmol/L Calcium 7.4 L (8.5-10.1) mg/dl Phosphorus 3.6 (2.5-4.9) mg/dl Magnesium 1.7 L (1.8-2.4) mg/dl Total Bilirubin (0.2-1) mg/dl AST (15-37) U/L ALT (12-78) U/L Alkaline Phosphatase (45-117) U/L Troponin I (0-0.045) ng/ml Total Protein (6.4-8.2) gm/dl Albumin (3.4-5.0) gm/dl Globulin (2.5-4.0) gm/dl Albumin/Globulin Ratio (0.9-2) Lipase (73-393) U/L Stl C. diff Tox B Gene Negative Cdiff Gene (Neg) 12/07/19 12/07/19 12/07/19 Range/Units 19:32 13:20 11:45 WBC (4.8-10.8) K/uL RBC (4.2-5.4) M/uL Hgb (12.0-16.0) g/dL Hct (37-47) % MCV (80-100) fL MCH (25-34) pg MCHC (32-36) g/dL RDW Std Deviation (36.4-46.3) fL RDW Coeff of Ana M (11.5-14.5) % Plt Count (130-400) K/uL MPV (7.4-10.4) fL Immature Gran % (Auto) % Neut % (Auto) % Lymph % (Auto) % [place] % (Auto) % Eos % (Auto) % Baso % (Auto) % Immature Gran # (Auto) (0.00-0.02) K/uL Neut # (Auto) (1.4-6.5) K/uL Lymph # (Auto) (1.2-3.4) K/uL [place] # (Auto) (0.11-0.59) K/uL Eos # (Auto) (0-0.5) K/uL Baso # (Auto) (0-0.2) K/uL Sodium 142 (136-145) mmol/L Potassium 3.4 L (3.5-5.1) mmol/L Chloride 111 H (98-107) mmol/L Carbon Dioxide 23 (21-32) mmol/L Anion Gap 8.0 (3-11) BUN 8 (7-18) mg/dl Creatinine 0.99 (0.6-1.2) mg/dl Est Cr Clr Drug Dosing 60.2 ml/min Est GFR ( Amer) 71.3 Est GFR (Non-Af Amer) 61.5 BUN/Creatinine Ratio 8.4 L (10-20) Glucose 83 (70-99) mg/dl Lactate 0.8 1.5 (0.4-2.0) mmol/L Calcium 8.4 L (8.5-10.1) mg/dl Phosphorus (2.5-4.9) mg/dl Magnesium 1.9 (1.8-2.4) mg/dl Total Bilirubin 0.3 (0.2-1) mg/dl AST 20 (15-37) U/L ALT 21 (12-78) U/L Alkaline Phosphatase 91 (45-117) U/L Troponin I < 0.015 (0-0.045) ng/ml Total Protein 6.3 L (6.4-8.2) gm/dl Albumin 2.8 L (3.4-5.0) gm/dl Globulin 3.5 (2.5-4.0) gm/dl Albumin/Globulin Ratio 0.8 L (0.9-2) Lipase 84 (73-393) U/L Stl C. diff Tox B Gene (Neg) 12/07/19 Range/Units 11:45 WBC 5.50 (4.8-10.8) K/uL RBC 3.77 L (4.2-5.4) M/uL Hgb 9.6 L (12.0-16.0) g/dL Hct 30.7 L (37-47) % MCV 81.4 (80-100) fL MCH 25.5 (25-34) pg MCHC 31.3 L (32-36) g/dL RDW Std Deviation 53.9 H (36.4-46.3) fL RDW Coeff of Ana M 18.4 H (11.5-14.5) % Plt Count 240 (130-400) K/uL MPV 9.5 (7.4-10.4) fL Immature Gran % (Auto) 0.0 % Neut % (Auto) 58.1 % Lymph % (Auto) 30.7 % [place] % (Auto) 9.5 % Eos % (Auto) 1.5 % Baso % (Auto) 0.2 % Immature Gran # (Auto) 0.00 (0.00-0.02) K/uL Neut # (Auto) 3.20 (1.4-6.5) K/uL Lymph # (Auto) 1.69 (1.2-3.4) K/uL [place] # (Auto) 0.52 (0.11-0.59) K/uL Eos # (Auto) 0.08 (0-0.5) K/uL Baso # (Auto) 0.01 (0-0.2) K/uL Sodium (136-145) mmol/L Potassium (3.5-5.1) mmol/L Chloride (98-107) mmol/L Carbon Dioxide (21-32) mmol/L Anion Gap (3-11) BUN (7-18) mg/dl Creatinine (0.6-1.2) mg/dl Est Cr Clr Drug Dosing ml/min Est GFR ( Amer) Est GFR (Non-Af Amer) BUN/Creatinine Ratio (10-20) Glucose (70-99) mg/dl Lactate (0.4-2.0) mmol/L Calcium (8.5-10.1) mg/dl Phosphorus (2.5-4.9) mg/dl Magnesium (1.8-2.4) mg/dl Total Bilirubin (0.2-1) mg/dl AST (15-37) U/L ALT (12-78) U/L Alkaline Phosphatase (45-117) U/L Troponin I (0-0.045) ng/ml Total Protein (6.4-8.2) gm/dl Albumin (3.4-5.0) gm/dl Globulin (2.5-4.0) gm/dl Albumin/Globulin Ratio (0.9-2) Lipase (73-393) U/L Stl C. diff Tox B Gene (Neg) Diagnostic Findings KUB HISTORY: ileus, measure distention if present COMPARISON: Chest and abdominal series 12/07/2019. FINDINGS: The bowel gas pattern is unremarkable. There are no dilated loops of small bowel to suggest an obstruction. No renal calculi. No ureteral calculi. No pneumoperitoneum or pneumatosis. Colonic diverticulosis. Suture material within the left upper quadrant. Prior cholecystectomy. A few nondistended gas- filled loops of small bowel measuring up to 2.9 cm. This has improved in the interval. Redemonstration of the calcified nodule adjacent to the g astroesophageal junction. IMPRESSION: A few nondistended gas-filled loops of small bowel. This has improved. No evidence for bowel obstruction or significant ileus
[2019-12-08] MEDS: ONDANSETRON INJ 2 MG/ML 2 ML VIAL IV PRN ×2 (15:59→23:16)
--- NOTE | 2019-12-08 16:45 | Hospitalist Progress Note ---
Date of Service December 08, 2019 Assessment & Plan (1) Ileus: Recent hospitalization for a flare of her chronic gastroparesis. She was given Emend, IV antiemetics and IV erythromycin for 24 hours prior to discharge She was readmitted with continued symptoms may be contributed by use of eryth romycin Subacute SBO was noted at some point but later cleared on KUB Surgery consulted and appreciate their input and recommendation GI consulted and appreciate their input and recommendation Was on n.p.o. Started on clears as per surgery (2) Gastroparesis: Long-standing with frequent flares, plan as above. Continue Zofran and Phenergan as needed for nausea, resume Reglan 10 mg 3 times daily and continue dicyclomine 10 mg 3 times daily as per GI recommendation (3) IBS (irritable bowel syndrome): Chronic, diarrhea-predominant. Stool cultures and c-diff studies pending. (4) Intractable vomiting with nausea: Prompting presentation back to the hospital today. Cont supportive care plan above. (5) Anemia: chronic, no transfusion needed at this time. Monitor (6) GERD (gastroesophageal reflux disease): Continue Protonix and Pepcid (7) Depression: On Lexapro 10 mg p.o. daily, hold while nauseous. (8) COPD (chronic obstructive pulmonary disease): Chronic, stable, no wheezing or evidence of exacerbation. (9) Hypothyroidism: Replaced Synthroid IV while n.p.o. (10) DVT prophylaxis: Hold heparin for now in setting of possible procedure. SCDs DNR Dispo-uncertain at this time. Admission and Anticipated Discharge Date Admission Date: December 07, 2019 Subjective The patient was seen and examined in medical floor She complains to have nausea after food but overall symptoms are better She denies any chest pain, palpitation, shortness of breath. Her bowel has not yet for the last few days Review of Systems Review of Systems: All systems reviewed and are unremarkable except as noted below Gastrointestinal: + nausea; no abdominal pain, no bloating and no vomiting Physical Exam Physical Exam: Lying in bed comfortably Constitutional: well developed and well nourished; no acute distress and not ill appearing Eyes: PERRL, conjunctivae normal, anicteric sclerae ENMT: external ear and nose normal, oropharynx normal Neck: trachea midline, no thyromegaly Respiratory: normal respiratory effort Auscultation: lungs clear to auscultation bilaterally Cardiovascular: Rate/Rhythm: regular rate and regular rhythm Heart Sounds: no murmur Gastrointestinal (Abdomen): Inspection/Auscultation: abdomen normal to inspection Percussion/Palpation: + abdomen tender (Mildly tender epigastrium) and abdomen soft; no guarding and abdomen not rigid Musculoskeletal: No acute arthritis in any joints Neurologic: moves all extremities; no focal motor deficits Results & Data ([facility]) Vital Signs (Past 12 Hours) Vital Signs Temp Pulse Resp BP Pulse Ox 12/08/19 15:30 37.2 C 57 L 16 127/84 98 12/08/19 07:22 36.8 C 54 L 18 111/75 97 Laboratory Results Short CBC 12/08/19 Range/Units 06:00 WBC 4.39 L (4.8-10.8) K/uL Hgb 8.4 L (12.0-16.0) g/dL Hct 27.0 L (37-47) % Plt Count 186 (130-400) K/uL BMP 12/08/19 06:00 Sodium 144 Potassium 3.1 L Chloride 113 H Carbon Dioxide 23 BUN 5 L Creatinine 0.84 Glucose 80 Calcium 7.4 L Medications Administered Current Inpatient Medications Acetaminophen (Tylenol) 650 mg PO Q4H PRN PRN Reason: pain/fever Stop: 01/06/20 15:59 Clonazepam (Klonopin) 0.5 mg PO TID PRN PRN Reason: Panic Attack(S) Stop: 01/06/20 15:07 Dicyclomine HCl (Bentyl) 10 mg PO BID PRN PRN Reason: abdominal discomfort Stop: 01/06/20 15:07 Escitalopram Oxalate (Lexapro Tab) 10 mg PO HS RUSSELL Stop: 01/06/20 20:59 Famotidine (Pepcid) 40 mg PO BID RUSSELL Stop: 01/06/20 20:59 Heparin Sodium (Porcine) (Heparin Sod 100 Unit/Ml Flush) 5 ml FLUSH PRN PRN PRN Reason: Flush Stop: 01/06/20 16:25 Hydromorphone HCl (Dilaudid) 0.5 mg IV Q1H PRN PRN Reason: Severe Pain Stop: 12/21/19 19:06 Last Admin: 12/07/19 20:05 Dose: 0.5 mg Documented by: Promethazine HCl 12.5 mg/ (Sodium Chloride) 50.5 mls @ 202 mls/hr IV Q6H PRN PRN Reason: Nausea And Vomiting Stop: 01/06/20 15:59 Last Infusion: 12/08/19 03:36 Dose: Infused Documented by: Prochlorperazine 10 mg/ (Syringe) 10 mls @ 5 mls/min IV Q6H PRN PRN Reason: Nausea And Vomiting Stop: 01/06/20 15:59 Last Admin: 12/07/19 23:38 Dose: 5 mls/min Documented by: Sodium Chloride (Nss 1000ml) 1,000 mls @ 125 mls/hr IV .Q8H [facility] Stop: 01/06/20 17:14 Last Admin: 12/08/19 10:23 Dose: 125 mls/hr Documented by: Acetaminophen (Ofirmev) 1,000 mg in 100 mls @ 400 mls/hr IV Q8H PRN PRN Reason: Pain or Fever Stop: 12/10/19 19:29 Last Infusion: 12/08/19 16:24 Dose: Infused Documented by: Famotidine 20 mg/ Syringe 5 mls @ 2.5 mls/min IV BID [facility] Stop: 01/06/20 20:59 Last Admin: 12/08/19 09:08 Dose: 2.5 mls/min Documented by: Levothyroxine Sodium 44 mcg/ (Syringe) 2.2 mls @ 2 mls/min IV DAILY@0900 [facility] Stop: 01/07/20 08:59 Last Admin: 12/08/19 09:09 Dose: 2 mls/min Documented by: Lansoprazole (Prevacid) 30 mg SL QAM [facility] Stop: 01/07/20 08:59 Last Admin: 12/08/19 10:22 Dose: 30 mg Documented by: Levothyroxine Sodium (Synthroid) 88 mcg PO DAILYBB [facility] Stop: 01/07/20 06:29 Last Admin: 12/08/19 06:17 Dose: Not Given Documented by: Metoprolol Succinate (Toprol Xl) 12.5 mg PO BID [facility] Stop: 01/06/20 20:59 Multivitamins (Multivitamin Tab) 1 tab PO QPM [facility] Stop: 01/06/20 20:59 Last Admin: 12/07/19 20:16 Dose: Not Given Documented by: Ondansetron HCl (Zofran) 4 mg IV Q6H PRN PRN Reason: Nausea Stop: 01/06/20 15:59 Last Admin: 12/08/19 15:59 Dose: 4 mg Documented by: (1) GERD (gastroesophageal reflux disease) Esophagitis presence: with esophagitis Qualified Code(s): K21.0 - Gastro- esophageal reflux disease with esophagitis (2) Depression Depression Type: unspecified Qualified Code(s): F32.9 - Major depressive disorder, single episode, unspecified (3) Hypothyroidism Hypothyroidism type: acquired Qualified Code(s): E03.9 - Hypothyroidism, unspecified
[2019-12-08] MEDS: MULTIVITAMIN TAB PO SCH (20:25)
[2019-12-08] MEDS ORDERED: POTASSIUM CHLORIDE 20 MEQ TABCR PO STA (21:54)
[2019-12-08] MEDS ORDERED: MAGNESIUM SULFATE / D5W 1 GM/100 ML BAG IV ONE (21:54)
--- NOTE | 2019-12-08 22:39 | Electrocardiogram Report ---
Test Reason : Blood Pressure : / mmHG Vent. Rate : 068 BPM Atrial Rate : 068 BPM P-R Int : 142 ms QRS Dur : 078 ms QT Int : 442 ms P-R-T Axes : 058 004 -18 degrees QTc Int : 469 ms Normal sinus rhythm Nonspecific T wave abnormality Abnormal ECG When compared with ECG of 02-DEC-2019 15:19, No significant change was found Confirmed by Chinmay Russo ([id number]) on 12/08/2019 10:39:04 PM Referred By: REFERRED SELF Confirmed By:Chinmay Russo
[2019-12-08] MEDS: HEPARIN 100 UNIT/ML 5ML FLUSH FLUSH PRN (23:16)
[2019-12-08] MEDS: HYDROmorphone INJ 0.5 MG/0.5 ML SYR IV PRN (23:16)
[2019-12-09] MEDS: HYDROmorphone INJ 0.5 MG/0.5 ML SYR IV PRN (02:35)
[2019-12-09] MEDS: HEPARIN 100 UNIT/ML 5ML FLUSH FLUSH PRN ×3 (02:35→10:04)
[2019-12-09] MEDS: LANSOPRAZOLE 30 MG SOLTAB SL SCH (05:46)
[2019-12-09] MEDS: ONDANSETRON INJ 2 MG/ML 2 ML VIAL IV PRN (08:02)
--- NOTE | 2019-12-09 08:24 | Gastroenterology Progress Note ---
Date of Service December 09, 2019 Assessment & Plan (1) Epigastric abdominal pain: 59 year old female w/ history of paraesophageal hernia s/p partial sleeve gastrectomy, gastroparesis, IBS admitted through the ED w/ abd pain, nausea, dry heaving imaging at that time concerning for ileus - this AM endorses resolution of pain, dry heaving and notes her nausea is back to baseline. Is passing gas/stool. - Clear diet as tolerated --> advance to gastroparesis diet as tolerated - She was educated on gastroparesis diet - Consider a repeat consultation with dietary as she notes she has not had this in quite some time and she is not following gastroparesis diet as an OP - IV fluids hydration, electrolyte correction and management - Continue Zofran as needed - Continue Phenergan nausea - Resume Reglan 10mg PO TID pending imaging - Continue Dicyclomine 10mg TID Thank you for allowing us to participate in the care of this patient. Please call with any acute changes, questions or concerns. Please see addendum below with additional recommendation from my supervising physician. Admission and Anticipated Discharge Date Admission Date: December 07, 2019 Supervising Physician Co-Signing Physician Notes Attending attestation I have seen, examined this patient, and agree with the findings and above by our mid-level provider VANIA Shepherd, with the following additions -Entirely asymptomatic today, x-rays improved, needs to be educated on gastro- paretic diet and follow-up with Dr. Ridley as an outpatient. Subjective Pt was seen and evaluated, chart reviewed. She has a headache this AM despite some tylenol No nausea, vomiting Small volume BMs but nothing significant No fever, chills, CP, SOB. Review of Systems Constitutional: no fever and no chills Respiratory: no cough and no dyspnea Cardiovascular: no chest pain and no dyspnea Gastrointestinal: no abdominal pain, no hematemesis, no blood in stools and no melena Physical Exam Constitutional: well nourished; no acute distress Respiratory: normal respiratory effort Cardiovascular: Rate/Rhythm: regular rate Gastrointestinal (Abdomen): normal bowel sounds, soft, nontender, no hepatosplenomegaly Results & Data ([facility]) Vital Signs (Past 12 Hours) Vital Signs Temp Pulse Resp BP Pulse Ox 12/09/19 07:48 36.7 C 55 L 16 126/83 97 12/08/19 23:10 36.5 C 66 18 129/88 97
[2019-12-09] MEDS: ACETAMINOPHEN 1,000 MG/100 ML VIAL IV PRN (09:41)
[2019-12-09] MEDS: LEVOTHYROXINE SODIUM 88 MCG TABLET PO SCH (09:45)
[2019-12-09] MEDS: METOPROLOL SUCC 25MG EXT REL TAB PO SCH ×2 (10:34→21:13)
[2019-12-09] MEDS: FAMOTIDINE 40 MG TABLET PO SCH ×2 (10:35→21:14)
--- NOTE | 2019-12-09 10:35 | Surgery Progress Note ---
Date of Service December 09, 2019 Assessment & Plan (1) Ileus: Vitals stable, afebrile abdominal pain, nausea, vomiting resolved KUB 12/08/2019 showing no obstruction and improvement of bowel dilatation compared to previous + bowel function Plan: Okay from surgical prospective for advancement of diet encourage ambulation and OOB to chair continue medical management GI following no surgical indication, our services signing off, please call with questions or concerns Dr. Jarrell has seen and examined pt, agrees with above Subjective feeling good other than a headache today had abdominal pain, upper mid abdomen last night, her usual chronic abdominal pain passing flatus liquid small bowel movements yesterday no bloating no nausea or vomiting Hungry Physical Exam Constitutional: WD/WN, vitals as above not ill appearing Respiratory: normal respiratory effort; no respiratory distress Gastrointestinal (Abdomen): Inspection/Auscultation: abdomen normal to inspection; abdomen not distended Percussion/Palpation: abdomen soft; abdomen nontender, no guarding and abdomen not rigid Skin: no rashes, warm and dry Psychiatric: Orientation: alert and oriented x 3 Results & Data Vital Signs (Past 12 Hours) Vital Signs Temp Pulse Resp BP Pulse Ox 12/09/19 07:48 36.7 C 55 L 16 126/83 97 12/08/19 23:10 36.5 C 66 18 129/88 97
--- NOTE | 2019-12-09 14:08 | Hospitalist Progress Note ---
Date of Service December 09, 2019 Assessment & Plan (1) Ileus: Recent hospitalization for a flare of her chronic gastroparesis. She was given Emend, IV antiemetics and IV erythromycin for 24 hours prior to discharge She was readmitted with continued symptoms may be contributed by use of eryth romycin Subacute SBO was noted at some point but later cleared on KUB Surgery consulted and appreciate their input and recommendation GI consulted and appreciate their input and recommendation Was on n.p.o. Started on clears as per surgery Full liquid from today And will get gastroparesis diet from tomorrow (2) Gastroparesis: Long-standing with frequent flares, plan as above. Continue Zofran and Phenergan as needed for nausea, resume Reglan 10 mg 3 times daily and continue dicyclomine 10 mg 3 times daily as per GI recommendation Consult nutrition service to reinforce on gastroparesis diet on discharge (3) IBS (irritable bowel syndrome): Chronic, diarrhea-predominant. Stool cultures and c-diff studies pending. (4) Intractable vomiting with nausea: Prompting presentation back to the hospital today. Cont supportive care plan above. (5) Anemia: chronic, no transfusion needed at this time. Monitor (6) GERD (gastroesophageal reflux disease): Continue Protonix and Pepcid (7) Depression: On Lexapro 10 mg p.o. daily, hold while nauseous. (8) COPD (chronic obstructive pulmonary disease): Chronic, stable, no wheezing or evidence of exacerbation. (9) Hypothyroidism: Replaced Synthroid IV while n.p.o. Change Synthroid to oral (10) DVT prophylaxis: Hold heparin for now in setting of possible procedure. SCDs DNR Dispo-likely discharge tomorrow Admission and Anticipated Discharge Date Admission Date: December 07, 2019 Anticipated date of discharge: 12/10/19 Subjective The patient was seen and examined in medical floor She complains to have nausea after food but overall symptoms are better She denies any chest pain, palpitation, shortness of breath. Her bowel has not yet for the last few days 12/09/2019 The patient was seen and examined in medical floor She complains today of nausea and reflux symptoms She has been tolerating clears so far We will advance to full liquids from today and gastroparesis diet from tomorrow Likely discharge tomorrow Review of Systems Review of Systems: All systems reviewed and are unremarkable except as noted below Gastrointestinal: + nausea; no abdominal pain, no bloating and no vomiting Physical Exam Physical Exam: Lying in bed comfortably Constitutional: well developed and well nourished; no acute distress and not ill appearing Eyes: PERRL, conjunctivae normal, anicteric sclerae ENMT: external ear and nose normal, oropharynx normal Neck: trachea midline, no thyromegaly Respiratory: normal respiratory effort Auscultation: lungs clear to auscultation bilaterally Cardiovascular: Rate/Rhythm: regular rate and regular rhythm Heart Sounds: no murmur Gastrointestinal (Abdomen): Inspection/Auscultation: abdomen normal to inspection Percussion/Palpation: + abdomen tender (Minimal tenderness in the epigastrium) and abdomen soft; no guarding and abdomen not rigid Neurologic: moves all extremities; no focal motor deficits Results & Data ([facility]) Vital Signs (Past 12 Hours) Vital Signs Temp Pulse Resp BP Pulse Ox 12/09/19 10:33 58 L 131/87 12/09/19 07:48 36.7 C 55 L 16 126/83 97 Medications Administered Current Inpatient Medications Acetaminophen (Tylenol) 650 mg PO Q4H PRN PRN Reason: pain/fever Stop: 01/06/20 15:59 Last Admin: 12/09/19 05:50 Dose: 650 mg Documented by: Clonazepam (Klonopin) 0.5 mg PO TID PRN PRN Reason: Panic Attack(S) Stop: 01/06/20 15:07 Dicyclomine HCl (Bentyl) 10 mg PO BID PRN PRN Reason: abdominal discomfort Stop: 01/06/20 15:07 Escitalopram Oxalate (Lexapro Tab) 10 mg PO HS RUSSELL Stop: 01/06/20 20:59 Famotidine (Pepcid) 40 mg PO BID RUSSELL Stop: 01/06/20 20:59 Last Admin: 12/09/19 10:35 Dose: 40 mg Documented by: Heparin Sodium (Porcine) (Heparin Sod 100 Unit/Ml Flush) 5 ml FLUSH PRN PRN PRN Reason: Flush Stop: 01/06/20 16:25 Last Admin: 12/09/19 10:04 Dose: 5 ml Documented by: Hydromorphone HCl (Dilaudid) 0.5 mg IV Q1H PRN PRN Reason: Severe Pain Stop: 12/21/19 19:06 Last Admin: 12/09/19 02:35 Dose: 0.5 mg Documented by: Promethazine HCl 12.5 mg/ (Sodium Chloride) 50.5 mls @ 202 mls/hr IV Q6H PRN PRN Reason: Nausea And Vomiting Stop: 01/06/20 15:59 Last Infusion: 12/08/19 20:24 Dose: Infused Documented by: Prochlorperazine 10 mg/ (Syringe) 10 mls @ 5 mls/min IV Q6H PRN PRN Reason: Nausea And Vomiting Stop: 01/06/20 15:59 Last Admin: 12/07/19 23:38 Dose: 5 mls/min Documented by: Acetaminophen (Ofirmev) 1,000 mg in 100 mls @ 400 mls/hr IV Q8H PRN PRN Reason: Pain or Fever Stop: 12/10/19 19:29 Last Infusion: 12/09/19 10:04 Dose: Infused Documented by: Lansoprazole (Prevacid) 15 mg PO BID [facility] Stop: 01/08/20 20:59 Levothyroxine Sodium (Synthroid) 88 mcg PO DAILYBB [facility] Stop: 01/07/20 06:29 Last Admin: 12/09/19 09:45 Dose: 88 mcg Documented by: Metoprolol Succinate (Toprol Xl) 12.5 mg PO BID [facility] Stop: 01/06/20 20:59 Last Admin: 12/09/19 10:34 Dose: Not Given Documented by: Multivitamins (Multivitamin Tab) 1 tab PO QPM [facility] Stop: 01/06/20 20:59 Last Admin: 12/08/19 20:25 Dose: Not Given Documented by: Ondansetron HCl (Zofran) 4 mg IV Q6H PRN PRN Reason: Nausea Stop: 01/06/20 15:59 Last Admin: 12/09/19 08:02 Dose: 4 mg Documented by: (1) GERD (gastroesophageal reflux disease) Esophagitis presence: with esophagitis Qualified Code(s): K21.0 - Gastro- esophageal reflux disease with esophagitis (2) Depression Depression Type: unspecified Qualified Code(s): F32.9 - Major depressive disorder, single episode, unspecified (3) Hypothyroidism Hypothyroidism type: acquired Qualified Code(s): E03.9 - Hypothyroidism, unspecified
[2019-12-09] MEDS ORDERED: LANSOPRAZOLE 15 MG SOLTAB PO SCH (21:00)
[2019-12-09] MEDS: MULTIVITAMIN TAB PO SCH (21:14)
[2019-12-10] MEDS: LEVOTHYROXINE SODIUM 88 MCG TABLET PO SCH (06:36)
[2019-12-10] MEDS ORDERED: PANTOprazole 40 MG TAB PO SCH (09:00)
[2019-12-10] MEDS: METOPROLOL SUCC 25MG EXT REL TAB PO SCH (09:29)
[2019-12-10] MEDS: FAMOTIDINE 40 MG TABLET PO SCH (09:29)
--- NOTE | 2019-12-10 14:36 | Hospitalist Progress Note ---
Date of Service December 10, 2019 Assessment & Plan (1) Ileus: Recent hospitalization for a flare of her chronic gastroparesis. She was given Emend, IV antiemetics and IV erythromycin for 24 hours prior to discharge She was readmitted with continued symptoms may be contributed by use of eryth romycin Subacute SBO was noted at some point but later cleared on KUB Surgery consulted and appreciate their input and recommendation GI consulted and appreciate their input and recommendation Was on n.p.o. Appreciate nutrition input and recommendation Tolerated regular diet today Will be discharged this afternoon (2) Gastroparesis: Long-standing with frequent flares, plan as above. Continue Zofran and Phenergan as needed for nausea, resume Reglan 10 mg 3 times daily and continue dicyclomine 10 mg 3 times daily as per GI recommendation Consult nutrition service to reinforce on gastroparesis diet on discharge Gastroparesis diet was prescribed (3) IBS (irritable bowel syndrome): Chronic, diarrhea-predominant. Stool cultures and c-diff studies pending. (4) Intractable vomiting with nausea: Prompting presentation back to the hospital today. Cont supportive care plan above. (5) Anemia: chronic, no transfusion needed at this time. Monitor (6) GERD (gastroesophageal reflux disease): Continue Protonix and Pepcid (7) Depression: On Lexapro 10 mg p.o. daily, hold while nauseous. (8) COPD (chronic obstructive pulmonary disease): Chronic, stable, no wheezing or evidence of exacerbation. (9) Hypothyroidism: Replaced Synthroid IV while n.p.o. Change Synthroid to oral (10) DVT prophylaxis: Hold heparin for now in setting of possible procedure. SCDs DNR Dispo-discharge this afternoon Admission and Anticipated Discharge Date Admission Date: December 07, 2019 Anticipated date of discharge: 12/10/19 Subjective The patient was seen and examined in medical floor She complains to have nausea after food but overall symptoms are better She denies any chest pain, palpitation, shortness of breath. Her bowel has not yet for the last few days 12/09/2019 The patient was seen and examined in medical floor She complains today of nausea and reflux symptoms She has been tolerating clears so far We will advance to full liquids from today and gastroparesis diet from tomorrow Likely discharge tomorrow 12/10/2019 The patient was seen and examined in medical floor She has been feeling a lot better today and tolerating regular diet She was advised to follow diet recommendation from the dietitian Review of Systems Review of Systems: All systems reviewed and are unremarkable except as noted below Gastrointestinal: + nausea; no abdominal pain, no bloating and no vomiting Physical Exam Physical Exam: Lying in bed comfortably Constitutional: well developed and well nourished; no acute distress and not ill appearing Eyes: PERRL, conjunctivae normal, anicteric sclerae ENMT: external ear and nose normal, oropharynx normal Neck: trachea midline, no thyromegaly Respiratory: normal respiratory effort Auscultation: lungs clear to auscultation bilaterally Cardiovascular: Rate/Rhythm: regular rate and regular rhythm Heart Sounds: no murmur Gastrointestinal (Abdomen): Inspection/Auscultation: abdomen normal to inspection Percussion/Palpation: + abdomen tender (Minimal tenderness in the epigastrium) and abdomen soft; no guarding and abdomen not rigid Musculoskeletal: No acute arthritis in any joints Neurologic: moves all extremities; no focal motor deficits Lymphatic: no cervical or axillary lymphadenopathy Results & Data ([facility]) Vital Signs (Past 12 Hours) Vital Signs Temp Pulse Resp BP Pulse Ox 12/10/19 09:28 85 96/60 L 12/10/19 07:08 36.4 C L 62 16 122/84 97 Medications Administered Current Inpatient Medications Acetaminophen (Tylenol) 650 mg PO Q4H PRN PRN Reason: pain/fever Stop: 01/06/20 15:59 Last Admin: 12/09/19 05:50 Dose: 650 mg Documented by: Clonazepam (Klonopin) 0.5 mg PO TID PRN PRN Reason: Panic Attack(S) Stop: 01/06/20 15:07 Dicyclomine HCl (Bentyl) 10 mg PO BID PRN PRN Reason: abdominal discomfort Stop: 01/06/20 15:07 Escitalopram Oxalate (Lexapro Tab) 10 mg PO HS RUSSELL Stop: 01/06/20 20:59 Last Admin: 12/09/19 21:14 Dose: 10 mg Documented by: Famotidine (Pepcid) 40 mg PO BID [facility] Stop: 01/06/20 20:59 Last Admin: 12/10/19 09:29 Dose: 40 mg Documented by: Heparin Sodium (Porcine) (Heparin Sod 100 Unit/Ml Flush) 5 ml FLUSH PRN PRN PRN Reason: Flush Stop: 01/06/20 16:25 Last Admin: 12/09/19 10:04 Dose: 5 ml Documented by: Hydromorphone HCl (Dilaudid) 0.5 mg IV Q1H PRN PRN Reason: Severe Pain Stop: 12/21/19 19:06 Last Admin: 12/09/19 02:35 Dose: 0.5 mg Documented by: Promethazine HCl 12.5 mg/ (Sodium Chloride) 50.5 mls @ 202 mls/hr IV Q6H PRN PRN Reason: Nausea And Vomiting Stop: 01/06/20 15:59 Last Infusion: 12/08/19 20:24 Dose: Infused Documented by: Prochlorperazine 10 mg/ (Syringe) 10 mls @ 5 mls/min IV Q6H PRN PRN Reason: Nausea And Vomiting Stop: 01/06/20 15:59 Last Admin: 12/07/19 23:38 Dose: 5 mls/min Documented by: Acetaminophen (Ofirmev) 1,000 mg in 100 mls @ 400 mls/hr IV Q8H PRN PRN Reason: Pain or Fever Stop: 12/10/19 19:29 Last Infusion: 12/09/19 10:04 Dose: Infused Documented by: Levothyroxine Sodium (Synthroid) 88 mcg PO DAILYBB [facility] Stop: 01/07/20 06:29 Last Admin: 12/10/19 06:36 Dose: 88 mcg Documented by: Metoprolol Succinate (Toprol Xl) 12.5 mg PO BID [facility] Stop: 01/06/20 20:59 Last Admin: 12/10/19 09:29 Dose: Not Given Documented by: Multivitamins (Multivitamin Tab) 1 tab PO QPM [facility] Stop: 01/06/20 20:59 Last Admin: 12/09/19 21:14 Dose: 1 tab Documented by: Ondansetron HCl (Zofran) 4 mg IV Q6H PRN PRN Reason: Nausea Stop: 01/06/20 15:59 Last Admin: 12/09/19 08:02 Dose: 4 mg Documented by: Pantoprazole Sodium (Protonix) 40 mg PO BID [facility] Stop: 01/09/20 08:59 Last Admin: 12/10/19 06:35 Dose: 40 mg Documented by: (1) GERD (gastroesophageal reflux disease) Esophagitis presence: with esophagitis Qualified Code(s): K21.0 - Gastro- esophageal reflux disease with esophagitis (2) Depression Depression Type: unspecified Qualified Code(s): F32.9 - Major depressive disorder, single episode, unspecified (3) Hypothyroidism Hypothyroidism type: acquired Qualified Code(s): E03.9 - Hypothyroidism, unspecified
--- NOTE | 2019-12-11 14:32 | Discharge Summary ---
Date of Service December 11, 2019 Admission HPI Per Admitting Provider 59-year-old female with known history of gastroparesis status post partial gastrectomy in 2011, paraesophageal hernia repair which was laparoscopic with out mesh in 2011 and a reconstruction of pylorus performed on 2014. She has chronic gastroparesis and diarrhea predominant IBS and is frequently hospitalized for intractable nausea. She has difficulty vomiting, and therefore suffers from dry heaves when she is gotten her intractable nausea. She was recently hospitalized for this and given a multitude of different antiemetics. She is taking Reglan chronically at home and was trialed on erythromycin for 24 hours during her last hospitalization prior to discharge. She felt slightly better and was able to go home but was now coming back within 48 hours with worsening of symptoms and now pain in the epigastric area. The pain is described as sharp and starting in her epigastric area radiating to her back. She reports no flatus or bowel movement today and had some diarrhea yesterday. She denies any fevers chills or other infectious symptoms at this time. She ate yesterday as her last meal, and has not eaten anything today secondary to symptoms. Review of systems is otherwise negative. Admission Exam Per Admitting Provider Physical Exam: CONSTITUTIONAL: WNWD, vitals as above, generally ill- appearing and dry heaving. EYES: normal conjunctivae, no scleral icterus ENT: external ear and nose normal,MMM RESPIRATORY: clear to auscultation bilaterally, no crackles, rales or wheezes, normal respiratory effort CARDIOVASCULAR: regular rate and rhythm, S1 and 2 heard without murmurs, gallops or rubs, no JVD, no peripheral edema GASTROINTESTINAL: no bowel sounds audible, soft, TTP in epigastric region, soft and nondistended MUSCULOSKELETAL: moves all extremities equally SKIN: warm and dry NEUROLOGIC: CN 2-12 grossly intact, normal cognition, no gross focal deficits. PSYCHIATRIC: alert cooperative and oriented Principal Diagnosis Gastroparesis, recurrent admissions with nausea and vomiting secondary to gastroparesis, ileus-resolved, IBS, COPD, depression Discharge Exam Constitutional well developed and well nourished; no acute distress and not ill appearing Eyes PERRL, conjunctivae normal, anicteric sclerae ENMT external ear and nose normal, oropharynx normal Neck trachea midline, no thyromegaly Respiratory normal respiratory effort Auscultation: lungs clear to auscultation bilaterally Cardiovascular Rate/Rhythm: regular rate and regular rhythm Heart Sounds: no murmur Gastrointestinal (Abdomen) Inspection/Auscultation: abdomen normal to inspection Percussion/Palpation: + abdomen tender (Minimal tenderness in the epigastrium) and abdomen soft; no guarding and abdomen not rigid Neurologic moves all extremities; no focal motor deficits Lymphatic no cervical or axillary lymphadenopathy Discharge Data Allergies Allergy/AdvReac Type Severity Reaction Status Date / Time adhesive Allergy Mild SKIN Verified 12/11/19 13:03 IRRITATION amoxicillin AdvReac Intermediate yeast Verified 12/11/19 13:03 infection NSAIDS (Non-Steroidal AdvReac Mild indegestion Verified 12/11/19 13:03 Anti-Inflamma rofecoxib AdvReac Mild indigestion Verified 12/11/19 13:03 scopolamine AdvReac Mild rash from Verified 12/11/19 13:03 patch lactose AdvReac Verified 12/11/19 13:03 Consultations 12/07/19 14:21 ED Decision to Admit Stat 12/07/19 16:00 Consult Case Management - Discharge Planning Routine Consult Gastroenterology Routine Consult General Surgery Routine Hospital Course (1) Ileus: Recent hospitalization for a flare of her chronic gastroparesis. She was given Emend, IV antiemetics and IV erythromycin for 24 hours prior to discharge She was readmitted with continued symptoms may be contributed by use of erythromycin Subacute SBO was noted at some point but later cleared on KUB Surgery consulted and appreciate their input and recommendation GI consulted and appreciate their input and recommendation Was on n.p.o. Appreciate nutrition input and recommendation Tolerated regular diet today Will be discharged this afternoon (2) Gastroparesis: Long-standing with frequent flares, plan as above. Continue Zofran and Phenergan as needed for nausea, resume Reglan 10 mg 3 times daily and continue dicyclomine 10 mg 3 times daily as per GI recommendation Consult nutrition service to reinforce on gastroparesis diet on discharge Gastroparesis diet was prescribed (3) IBS (irritable bowel syndrome): Chronic, diarrhea-predominant. Stool cultures and c-diff studies pending. (4) Intractable vomiting with nausea: Prompting presentation back to the hospital today. Cont supportive care plan above. (5) Anemia: chronic, no transfusion needed at this time. Monitor (6) GERD (gastroesophageal reflux disease): Continue Protonix and Pepcid (7) Depression: On Lexapro 10 mg p.o. daily, hold while nauseous. (8) COPD (chronic obstructive pulmonary disease): Chronic, stable, no wheezing or evidence of exacerbation. (9) Hypothyroidism: Replaced Synthroid IV while n.p.o. Change Synthroid to oral (10) DVT prophylaxis: Hold heparin for now in setting of possible procedure. SCDs DNR Dispo-discharge this afternoon Total Time Total Time Spent Total Time Spent (In Minutes): 35 minutes Total Time Includes: Examination of the Patient, Discharge Planning, Medication Reconciliation and Communication With Other Providers Discharge Plan Discharge Items Patient Disposition: Home - Self-Care Reason For Visit: ILEUS, POSSIBLE SBO Discharge Diagnosis: Gastroparesis, recurrent admissions with nausea and vomiting secondary to gastroparesis, ileus-resolved, IBS, COPD, depression Condition on Discharge: Good Activity: Resume your previous activity Non-emergency contact: Primary Care Provider Call non-emergency contact if: you have any medication questions and your symptoms worsen Follow-up/Referrals: Jaleel Coppola MD [Primary Care Provider] - 12/15/19 5:25 pm Diet: Other - See Diet Comment Diet Comment: Diet for gastroparesis Addtl Attending Provider Instructions: Please try small amount of food at one time to avoid nausea and or vomiting Pending Studies at Discharge: No Stand-Alone Forms: My [facility] [employer], Smoking Cessation Medications and DC Order Prescriptions: New pantoprazole 40 mg Tablet,Delayed Release (Dr/Ec) 40 mg PO BID Qty: 60 RF: 0 Continued clonazepam 0.5 mg Tablet 0.5 mg PO TID PRN (Reason: Panic Attack(S)) Qty: 0 RF: 0 famotidine [Pepcid] 40 mg Tablet 40 mg PO BID Qty: 0 RF: 0 multivitamin Tablet 1 tab PO QPM RF: 0 ondansetron HCl [Zofran] 8 mg Tablet 8 mg PO Q6H PRN (Reason: Nausea) RF: 0 acetaminophen [Tylenol Extra Strength] 500 mg Tablet 1,000 mg PO Q6H PRN (Reason: Fever Or Pain) RF: 0 dicyclomine 10 mg Capsule 10 mg PO BID PRN (Reason: abdominal discomfort) Qty: 60 RF: 0 promethazine 25 mg tablet 25 mg PO Q6H PRN (Reason: nausea) Qty: 30 RF: 0 levothyroxine [Synthroid] 88 mcg tablet 88 mcg PO QAM RF: 0 metoclopramide HCl 10 mg tablet 10 mg PO TIDM RF: 0 metoprolol succinate 25 mg tablet extended release 24 hr 12.5 mg PO BID Qty: 30 RF: 1 escitalopram oxalate [Lexapro] 20 mg Tablet 10 mg PO HS Qty: 0 RF: 0 Discontinued lansoprazole 30 mg Capsule,Delayed Release(Dr/Ec) 30 mg PO QAM RF: 0 Discharge Orders: Discharge Order (Routine); Ordered 12/10/19 Ordered By: Rosi Meraz/Other Patient Handouts: Ileus Admission Data Admit Date/Time: 12/07/19 15:00 Attending Provider: Rosi Malhotra Admit Provider: Juliane Long Primary Care Provider: Jaleel Coppola Other Providers: Charlie Maher ; Pastor Ramos ; Jazmín Jarrell ; Juliane Long Other Interventions: Discharge Summary Assessment (RN) Last Done: 12/10/19 14:01 DC Date/Time DO NOT enter until pt leaves facility: 12/10/19 16:33
== END 2019-12-10 16:33 | disposition home or self-care (01) | DRG 390 ==
LOC: ED 11:35 → SUATTDRO 15:00 → 3W 15:00

== ENCOUNTER 2019-12-13 10:14 | Inpatient (IN) ==
[2019-12-13] MEDS ORDERED: ONDANSETRON INJ 2 MG/ML 2 ML VIAL IV STA (10:55)
[2019-12-13] MEDS ORDERED: SODIUM CHLORIDE 0.9% 1000ML 1,000 ML IV ONE (10:55)
[2019-12-13] MEDS ORDERED: DiphenhydrAMINE HCL 50 MG/ML VIAL IV STA (10:55)
[2019-12-13 11:22] LABS: Basophils # (auto) 0.02 K/uL (0-0.2); Basophils % (auto) 0.5 %; Eosinophils # (auto) 0.07 K/uL (0-0.5); Eosinophils % (auto) 1.8 %; Hemoglobin 8.5 g/dL (12.0-16.0); Lymphocytes # (auto) 1.41 K/uL (1.2-3.4); Lymphocytes % (auto) 36.8 %; Mean Corpuscular Hemoglobin 24.9 pg (25-34); Mean Corpuscular Hgb Conc 31.5 g/dL (32-36); Mean Corpuscular Volume 79.2 fL (80-100); Mean Platelet Volume 9.6 fL (7.4-10.4); Monocytes # (auto) 0.34 K/uL (0.11-0.59); Monocytes % (auto) 8.9 %; Neutrophils # (auto) 1.99 K/uL (1.4-6.5); Platelet Count 249 K/uL (130-400); RDW Coefficient of Variation 17.9 % (11.5-14.5); RDW Standard Deviation 51.9 fL (36.4-46.3); Red Blood Count 3.41 M/uL (4.2-5.4); White Blood Count 3.83 K/uL (4.8-10.8)
[2019-12-13 11:50] LABS: Albumin Globulin Ratio 0.9 (0.9-2); Albumin Level 2.5 gm/dl (3.4-5.0); BUN Creatinine Ratio 7.4 (10-20); Bilirubin,Total 0.2 mg/dl (0.2-1); Calcium 7.6 mg/dl (8.5-10.1); Est GFR (African American) 108.9; Globulin 2.8 gm/dl (2.5-4.0); Potassium 2.8 mmol/L (3.5-5.1); Total Protein 5.3 gm/dl (6.4-8.2)
--- NOTE | 2019-12-13 12:00 | XRay Report ---
KUB HISTORY: nausea COMPARISON: Chest and abdominal series 12/11/2019. FINDINGS: Multiple mildly dilated gas-filled loops of large and small bowel are again noted. The smal l bowel continues to measure up to 3.3 cm in diameter. This is similar to the prior study. Calcified epigastric nodule is again noted. Postoperative changes within the left upper quadrant. No renal fady culi. No ureteral calculi. No pneumoperitoneum or pneumatosis. IMPRESSION: No significant change in the multiple mildly dilated gas-filled loops of large and small bowel seen t hroughout the abdomen. This is nonspecific but favors an ileus. ACT 112: Negative or not required by law. Electronically signed by: Radhames Jackson M.D. 12/13/2019 11:59 AM
[2019-12-13] MEDS ORDERED: HYDROmorphone INJ 0.5 MG/0.5 ML SYR IV STA (12:04)
[2019-12-13] MEDS: POTASSIUM CHLORIDE / WTR 10 MEQ/100 ML PLCT IV SCH ×4 (12:14→15:30)
[2019-12-13 13:02] LABS: Magnesium 1.7 mg/dl (1.8-2.4); Phosphorus 2.1 mg/dl (2.5-4.9)
--- NOTE | 2019-12-13 13:04 | Emergency Department Note ---
History of Present Illness General Chief complaint: Abdominal Pain Time Seen by Provider: 12/13/19 10:18 Source: patient and family Mode of arrival: ambulatory Limitations: no limitations History of Present Illness Provider complaint: nausea, abd pain Onset (ago): day(s) Location: abdomen Radiation: abdomen Severity: moderate Maximum Pain Intensity: 6 Exacerbated By: + none Associated symptoms: + nausea/vomiting Treatments prior to arrival: none (zofran) This patient is a 59-year-old female who presents to the emergency department with complaints of generalized abdominal pain and nausea. The patient states she has recurrent issues over the last 8 years since having pyloroplasty. Patient has been admitted several times recently with intractable nausea and ileus. Patient admits to having a small formed bowel movement prior to my evaluation in the emergency department. She denies any blood. Patient states she has not been able to eat or drink without some discomfort. She feels her abdomen is bloated. Patient does follow with gastroenterology. She denies ch est pain, shortness of breath, fever. Home Medications Home Medications Medication Instructions Recorded Confirmed Type clonazepam 0.5 mg PO TID PRN #0 06/22/14 12/13/19 History famotidine [Pepcid] 40 mg PO BID #0 tab 04/15/17 12/13/19 History multivitamin 1 tab PO QPM 09/09/18 12/13/19 History ondansetron HCl [Zofran] 8 mg PO Q6H PRN 09/09/18 12/13/19 History levothyroxine [Synthroid] 88 mcg PO QAM 11/09/19 12/13/19 History metoclopramide HCl 10 mg PO TIDM 11/09/19 12/13/19 History escitalopram oxalate [Lexapro] 10 mg PO HS #0 tab 11/12/19 12/13/19 Rx metoprolol succinate 12.5 mg PO BID #30 tab 11/12/19 12/13/19 Rx acetaminophen [Tylenol Extra 1,000 mg PO Q6H PRN 12/02/19 12/13/19 History Strength] dicyclomine 10 mg PO BID PRN #60 cap 12/06/19 12/13/19 Rx promethazine 25 mg PO Q6H PRN #30 tab 12/06/19 12/13/19 Rx pantoprazole 40 mg PO BID #60 tab 12/10/19 12/13/19 Rx Allergies Allergy/AdvReac Type Severity Reaction Status Date / Time adhesive Allergy Mild SKIN Verified 12/13/19 10:17 IRRITATION amoxicillin AdvReac Intermediate yeast Verified 12/13/19 10:17 infection NSAIDS (Non-Steroidal AdvReac Mild indegestion Verified 12/13/19 10:17 Anti-Inflamma rofecoxib AdvReac Mild indigestion Verified 12/13/19 10:17 scopolamine AdvReac Mild rash from Verified 12/13/19 10:17 patch lactose AdvReac Verified 12/13/19 10:17 Past Med/Surg History Medical History Anemia, iron deficiency (Chronic) Anxiety (Chronic) Asthma (Chronic) COPD (chronic obstructive pulmonary disease) (Chronic) Depression (Chronic) Diverticulosis (Chronic) Frequent PVCs (Chronic) Gastroparesis (Chronic) GERD (gastroesophageal reflux disease) (Chronic) H/O irritable bowel syndrome (Chronic) HTN (hypertension) (Chronic) Hypothyroidism (Chronic) Mitral regurgitation (Chronic) "moderate per echo 09/21/15" MRSA bacteremia (Resolved) Neuropathy (Chronic) Paroxysmal A-fib Pemphigus vulgaris Pernicious anemia (Chronic) Premature atrial contractions (Chronic) Tobacco abuse (Chronic) Surgical History History of bladder surgery History of laparoscopic partial gastrectomy (Resolved) History of pyloroplasty (Resolved) History of total hysterectomy (Resolved) Hx of cholecystectomy Hx of tonsillectomy (Resolved) S/P hysterectomy S/P laparoscopic sleeve gastrectomy S/P partial gastrectomy S/P repair of paraesophageal hernia "resulted in volvulus, required abdominal exploration" S/P tonsillectomy and adenoidectomy Family History Mother DM type 2 (diabetes mellitus, type 2) Coronary heart disease Social History Preferred Language: Maori Communication Ability: Effective Car Stereo Installer Required: No Beliefs That Will Affect Care: None marital status: / Current Living Situation: Family Current Living Situation Comment: brother Feels Safe at Home: Yes Safety Concerns: Feels Safe At This Time Smoking Status: Current every day smoker Tobacco Type: cigarettes ; Cigarettes Per Day: 20 ; Second Hand Exposure: No ; Hx Alcohol Use: Yes Alcohol type: beer Alcohol Intake Frequency: Weekly Alcohol Intake Frequency Comment: 3-4 beers/week Hx Substance Use: No Review of Systems See HPI for pertinent positives & negatives. and A total of 10 systems reviewed and were otherwise negative Physical Exam Vital Signs Vital Signs - 24 hr 12/13/19 10:17 12/13/19 10:19 12/13/19 10:26 Temperature 37.3 C Temperature Source Oral Pulse Rate 71 73 74 Pulse Rate [Apical] Pulse Rate from SpO2 Sensor Respiratory Rate 19 20 16 Blood Pressure 150/108 H 150/98 H Blood Pressure [Left Arm] Blood Pressure Mean 116 115 Blood Pressure Mean [Left Arm] Pulse Oximetry 100 Oxygen Delivery Method Room Air Sepsis Recent Fever Within 48 Hours No Sepsis Action Taken by Nursing No Action Required 12/13/19 10:30 12/13/19 10:40 12/13/19 10:50 Temperature Temperature Source Pulse Rate 72 68 66 Pulse Rate [Apical] Pulse Rate from SpO2 Sensor Respiratory Rate 18 16 14 Blood Pressure 139/114 H Blood Pressure [Left Arm] Blood Pressure Mean 121 Blood Pressure Mean [Left Arm] Pulse Oximetry Oxygen Delivery Method Sepsis Recent Fever Within 48 Hours Sepsis Action Taken by Nursing 12/13/19 11:00 12/13/19 11:01 12/13/19 11:10 Temperature Temperature Source Pulse Rate 69 71 70 Pulse Rate [Apical] Pulse Rate from SpO2 Sensor Respiratory Rate 16 13 16 Blood Pressure 128/87 Blood Pressure [Left Arm] Blood Pressure Mean 95 Blood Pressure Mean [Left Arm] Pulse Oximetry Oxygen Delivery Method Sepsis Recent Fever Within 48 Hours Sepsis Action Taken by Nursing 12/13/19 11:13 12/13/19 11:20 12/13/19 11:30 Temperature Temperature Source Pulse Rate 66 67 Pulse Rate [Apical] Pulse Rate from SpO2 Sensor Respiratory Rate 19 20 Blood Pressure Blood Pressure [Left Arm] Blood Pressure Mean Blood Pressure Mean [Left Arm] Pulse Oximetry 100 Oxygen Delivery Method Room Air Sepsis Recent Fever Within 48 Hours Sepsis Action Taken by Nursing 12/13/19 11:31 12/13/19 12:02 12/13/19 12:10 Temperature Temperature Source Pulse Rate 67 65 Pulse Rate [Apical] 65 Pulse Rate from SpO2 Sensor 67 65 Respiratory Rate 16 16 Blood Pressure 125/89 Blood Pressure [Left Arm] 125/89 Blood Pressure Mean 93 Blood Pressure Mean [Left Arm] 101 Pulse Oximetry 98 100 100 Oxygen Delivery Method Room Air Sepsis Recent Fever Within 48 Hours Sepsis Action Taken by Nursing 12/13/19 12:20 12/13/19 12:30 12/13/19 12:31 Temperature Temperature Source Pulse Rate 67 66 66 Pulse Rate [Apical] Pulse Rate from SpO2 Sensor 67 65 66 Respiratory Rate 17 18 17 Blood Pressure 135/93 Blood Pressure [Left Arm] Blood Pressure Mean 103 Blood Pressure Mean [Left Arm] Pulse Oximetry 99 98 99 Oxygen Delivery Method Sepsis Recent Fever Within 48 Hours Sepsis Action Taken by Nursing 12/13/19 12:40 Temperature Temperature Source Pulse Rate 67 Pulse Rate [Apical] Pulse Rate from SpO2 Sensor 67 Respiratory Rate 17 Blood Pressure Blood Pressure [Left Arm] Blood Pressure Mean Blood Pressure Mean [Left Arm] Pulse Oximetry 100 Oxygen Delivery Method Sepsis Recent Fever Within 48 Hours Sepsis Action Taken by Nursing Vital signs reviewed. General: Well-appearing 59-year-old female, in no significant distress, in no significant distress. HEENT: No scleral icterus, PERRLA, neck supple. Atraumatic. Cardiovascular: Regular rate and rhythm, no extra sounds. Pulmonary: Clear to auscultation bilaterally, normal work of breathing. Abdomen: Soft, mild diffuse abdominal tenderness, minimal distention, positive bowel sounds. Musculoskeletal: Atraumatic, no peripheral edema. Neurologic: Patient awake alert and oriented x 3 Skin: Warm, dry, no rash Course Administered Medications Dicyclomine HCl (Bentyl) 10 mg PO BID PRN PRN Reason: abdominal discomfort Stop: 01/12/20 13:26 Last Admin: 12/13/19 14:43 Dose: 10 mg Documented by: [id number] Potassium Chloride (K James / Wtr) 10 meq in 100 mls @ 100 mls/hr IV Q1H [facility] Stop: 12/13/19 16:29 Last Admin: 12/13/19 14:28 Dose: 100 mls/hr Documented by: [id number] Potassium Chloride 40 meq/ (Sodium Chloride) 1,020 mls @ 125 mls/hr IV .Q8H10M [facility] Stop: 01/12/20 14:29 Last Admin: 12/13/19 14:10 Dose: 125 mls/hr Documented by: [id number] Magnesium Sulfate/Dextrose (Magnesium Sulfate / D5w) 1 gm in 100 mls @ 100 mls/hr IV ONE ONE Stop: 12/13/19 14:59 Last Admin: 12/13/19 14:10 Dose: 100 mls/hr Documented by: [id number] Discontinued Medications Diphenhydramine HCl (Benadryl) 25 mg IV NOW STA Stop: 12/13/19 10:56 Last Admin: 12/13/19 11:17 Dose: 25 mg Documented by: [id number] Hydromorphone HCl (Dilaudid) 0.5 mg IV NOW STA Stop: 12/13/19 12:05 Last Admin: 12/13/19 12:14 Dose: 0.5 mg Documented by: [id number] Sodium Chloride (Nss 1000ml) 1,000 mls @ 999 mls/hr IV .Q1H1M ONE Stop: 12/13/19 11:55 Last Infusion: 12/13/19 12:33 Dose: 0 mls/hr Documented by: [id number] Admin: 12/13/19 11:16 Dose: 999 mls/hr Documented by: [id number] Potassium Chloride (K James / Wtr) 10 meq in 100 mls @ 100 mls/hr IV Q1H [facility] Stop: 12/13/19 14:14 Last Infusion: 12/13/19 14:34 Dose: 0 mls/hr Documented by: [id number] Admin: 12/13/19 13:33 Dose: 100 mls/hr Documented by: [id number] Infusion: 12/13/19 13:14 Dose: 100 mls/hr Documented by: [id number] Admin: 12/13/19 12:14 Dose: 100 mls/hr Documented by: [id number] Ondansetron HCl (Zofran) 4 mg IV NOW STA Stop: 12/13/19 10:56 Last Admin: 12/13/19 11:17 Dose: 4 mg Documented by: [id number] Medical Decision Making Differential Diagnosis Differential diagnosis: Etiologies such as gastroparesis, gastroenteritis, food borne illness, infections, appendicitis, diverticulitis, inflammatory bowel disease, obstru ction, GI bleed, biliary pathology, cardiac process, intracranial process, as well as others were entertained. Medical Records Attestation: I reviewed the patient's medical records. Home Medications Current Medication List: was personally reviewed by me Laboratory Data Attestation: I reviewed the patient's lab results. Result diagrams: 12/13/19 11:12 12/13/19 11:12 Lab Results 12/13/19 12/13/19 12/13/19 Range/Units 11:12 11:12 11:12 WBC 3.83 L (4.8-10.8) K/uL RBC 3.41 L (4.2-5.4) M/uL Hgb 8.5 L (12.0-16.0) g/dL Hct 27.0 L (37-47) % MCV 79.2 L (80-100) fL MCH 24.9 L (25-34) pg MCHC 31.5 L (32-36) g/dL RDW Std Deviation 51.9 H (36.4-46.3) fL RDW Coeff of Ana M 17.9 H (11.5-14.5) % Plt Count 249 (130-400) K/uL MPV 9.6 (7.4-10.4) fL Immature Gran % (Auto) 0.0 % Neut % (Auto) 52.0 % Lymph % (Auto) 36.8 % [place] % (Auto) 8.9 % Eos % (Auto) 1.8 % Baso % (Auto) 0.5 % Immature Gran # (Auto) 0.00 (0.00-0.02) K/uL Neut # (Auto) 1.99 (1.4-6.5) K/uL Lymph # (Auto) 1.41 (1.2-3.4) K/uL [place] # (Auto) 0.34 (0.11-0.59) K/uL Eos # (Auto) 0.07 (0-0.5) K/uL Baso # (Auto) 0.02 (0-0.2) K/uL Sodium 146 H (136-145) mmol/L Potassium 2.8 L D (3.5-5.1) mmol/L Chloride 119 H (98-107) mmol/L Carbon Dioxide 22 (21-32) mmol/L Anion Gap 5.0 (3-11) BUN 5 L (7-18) mg/dl Creatinine 0.69 D (0.6-1.2) mg/dl Est Cr Clr Drug Dosing 84.0 ml/min Est GFR ( Amer) 108.9 Est GFR (Non-Af Amer) 94.0 BUN/Creatinine Ratio 7.4 L (10-20) Glucose 81 (70-99) mg/dl Calcium 7.6 L (8.5-10.1) mg/dl Phosphorus 2.1 L (2.5-4.9) mg/dl Magnesium 1.7 L (1.8-2.4) mg/dl Total Bilirubin 0.2 (0.2-1) mg/dl AST 23 (15-37) U/L ALT 23 (12-78) U/L Alkaline Phosphatase 73 (45-117) U/L Total Protein 5.3 L (6.4-8.2) gm/dl Albumin 2.5 L (3.4-5.0) gm/dl Globulin 2.8 (2.5-4.0) gm/dl Albumin/Globulin Ratio 0.9 (0.9-2) Lipase 82 (73-393) U/L Imaging Data Radiologist's Impression: KUB HISTORY: nausea COMPARISON: Chest and abdominal series 12/11/2019. FINDINGS: Multiple mildly dilated gas-filled loops of large and small bowel are again noted. The small bowel continues to measure up to 3.3 cm in diameter. This is similar to the prior study. Calcified epigastric nodule is again noted. Postoperative changes within the left upper quadrant. No renal calculi. No ureteral calculi. No pneumoperitoneum or pneumatosis. IMPRESSION: No significant change in the multiple mildly dilated gas-filled loops of large and small bowel seen throughout the abdomen. This is nonspecific but favors an ileus. ACT 112: Negative or not required by law. Electronically signed by: Radhames Jackson M.D. 12/13/2019 11:59 AM Dictated: 12/13/19 1156 Transcribed: 12/13/19 1156 ECG Data Additional Comments: An order for cardiac monitoring was placed and the patient is found to be in a normal sinus rhythm at approximately 67 bpm. Blood Pressure Blood Pressure Findings: Elevated blood pressure Blood Pressure Disposition: further management by hospitalist SOLITARIO Mark This patient was evaluated and appeared to be in no significant distress. IV access was obtained and laboratory work was drawn. Patient was placed on the monitoring manager found to be in a normal sinus rhythm. Patient was medicated with IV normal saline solution bolus, IV Benadryl and Zofran for her nausea. Abdominal x-ray was performed and is consistent with ileus. Laboratory work reveals a leukopenia at 3.8 and a hypokalemia at 2.8. Patient did receive Dilaudid 0.5 mg for abdominal pain. 20 mEq of IV potassium was ordered. Patient will be evaluated by the hospitalist service for further evaluation and management. She is aware of the plan and agrees. Impression & Plan Adynamic ileus, Acute hypokalemia Discharge Plan Visit Data *Final* Discharge Date/Time: 12/13/19 12:55 Chief Complaint: Abdominal Pain ED Provider: Cheyenne Ibrahim Discharge Problem: Adynamic ileus, Acute hypokalemia Patient Disposition: Admitted As Inpatient Discharge Instructions Interventions: ED Discharge Assessment Last Done: 12/13/19 12:55
[2019-12-13] MEDS ORDERED: POTASSIUM PHOS 3 MMOL/1 ML INFUSION IV ONE (13:27)
[2019-12-13] MEDS ORDERED: ACETAMINOPHEN 325 MG TAB PO PRN (13:27)
--- NOTE | 2019-12-13 13:43 | History & Physical Report ---
Date of Service December 13, 2019 Assessment & Plan (1) Intractable vomiting with nausea: (2) Gastroparesis: -Admit to [facility] -Patient presenting from home with reports of intractable nausea/dry heaves, abdominal pain. Has had several admissions in the past for the same. -Longstanding history of gastroparesis with frequent flares. Had been receiving IV Emend however does not appear to be effective anymore. -KUB suggest possible ileus -N.p.o. for now -Supportive care with IVF, PRN antiemetics, IV H2 lauren; continue home doses of Reglan and PPI (3) Hypokalemia: (4) Hypomagnesemia: (5) Hypophosphatemia: -K+ 2.8, phosphorus 2.1, MG +1.7 -Likely due to poor p.o. intake -Replace, follow electrolytes (6) Anemia: -Hgb 8.5 -No signs of active bleeding -Chart history of iron deficiency and pernicious anemia -Check iron studies and vitamin B12 with morning labs (7) Prolonged QT interval: -QTC 501, in the setting of several electrolyte abnormalities -Correct electrolytes, repeat EKG -Avoid QTC prolonging agents (8) Paroxysmal A-fib: (9) Frequent PVCs: -During recent admission, had episodic atrial fibrillation in the setting of hypokalemia. Was started on metoprolol. Anticoagulation not initiated due to GI issues and anemia. -longstanding history of frequent PVCs that has been managed on digoxin, will continue -Currently in NSR (10) Depression: (11) Anxiety: -Continue escitalopram (12) GERD (gastroesophageal reflux disease): -IV H2 lauren, p.o. PPI (13) Hypothyroidism: -Continue levothyroxine (14) DVT prophylaxis: -SCDs due to anemia History of Present Illness Chief Complaint: Nausea, vomiting, abdominal pain Primary Care Provider: Jaleel Coppola MD 59-year-old female who presents the ED for evaluation of nausea, vomiting, abdominal pain. Patient is well-known to our service, having several admissions for the same in the past, most recently being 12/06 to 12/10. Patient reports she only felt well for about 1/2-day since being discharged in the hospital. Had an ED visit on 12/10 and was discharged home. Patient reports persistent dry heaving and very poor p.o. intake. She has generalized abdominal pain, more localized in the left upper quadrant. She had a formed bowel movement in the ED today. She denies hematemesis, coffee-ground emesis, dark tarry stools, bright red bleeding per rectum. No chest pain, palpitations, or shortness of breath. Denies lightheadedness, dizziness, diaphoresis, syncopal event. No fevers or chills. She denies any urinary symptoms. In the ED, labs show Hgb 8.5, K+ 2.8, phosphorus 2.1, MG +1.7. Abdominal x-ray suggest possible ileus. Patient is hemodynamically stable. She was given IV diphenhydramine, IV Dilaudid, IV Zofran, IVF. Allergies Allergy/AdvReac Type Severity Reaction Status Date / Time adhesive Allergy Mild SKIN Verified 12/13/19 10:17 IRRITATION amoxicillin AdvReac Intermediate yeast Verified 12/13/19 10:17 infection NSAIDS (Non-Steroidal AdvReac Mild indegestion Verified 12/13/19 10:17 Anti-Inflamma rofecoxib AdvReac Mild indigestion Verified 12/13/19 10:17 scopolamine AdvReac Mild rash from Verified 12/13/19 10:17 patch lactose AdvReac Verified 12/13/19 10:17 Home Medications Home Medications Medication Instructions Recorded Confirmed Type clonazepam 0.5 mg PO TID PRN #0 06/22/14 12/13/19 History famotidine [Pepcid] 40 mg PO BID #0 tab 04/15/17 12/13/19 History multivitamin 1 tab PO QPM 09/09/18 12/13/19 History ondansetron HCl [Zofran] 8 mg PO Q6H PRN 09/09/18 12/13/19 History levothyroxine [Synthroid] 88 mcg PO QAM 11/09/19 12/13/19 History metoclopramide HCl 10 mg PO TIDM 11/09/19 12/13/19 History escitalopram oxalate [Lexapro] 10 mg PO HS #0 tab 11/12/19 12/13/19 Rx metoprolol succinate 12.5 mg PO BID #30 tab 11/12/19 12/13/19 Rx acetaminophen [Tylenol Extra 1,000 mg PO Q6H PRN 12/02/19 12/13/19 History Strength] dicyclomine 10 mg PO BID PRN #60 cap 12/06/19 12/13/19 Rx promethazine 25 mg PO Q6H PRN #30 tab 12/06/19 12/13/19 Rx pantoprazole 40 mg PO BID #60 tab 12/10/19 12/13/19 Rx Past Med/Surg History Medical History Anemia, iron deficiency (Chronic) Anxiety (Chronic) Asthma (Chronic) COPD (chronic obstructive pulmonary disease) (Chronic) Depression (Chronic) Diverticulosis (Chronic) Frequent PVCs (Chronic) Gastroparesis (Chronic) GERD (gastroesophageal reflux disease) (Chronic) H/O irritable bowel syndrome (Chronic) HTN (hypertension) (Chronic) Hypothyroidism (Chronic) Mitral regurgitation (Chronic) "moderate per echo 09/21/15" MRSA bacteremia (Resolved) Neuropathy (Chronic) Paroxysmal A-fib Pemphigus vulgaris Pernicious anemia (Chronic) Premature atrial contractions (Chronic) Tobacco abuse (Chronic) Surgical History History of bladder surgery History of laparoscopic partial gastrectomy (Resolved) History of pyloroplasty (Resolved) History of total hysterectomy (Resolved) Hx of cholecystectomy Hx of tonsillectomy (Resolved) S/P hysterectomy S/P laparoscopic sleeve gastrectomy S/P partial gastrectomy S/P repair of paraesophageal hernia "resulted in volvulus, required abdominal exploration" S/P tonsillectomy and adenoidectomy Family History Mother DM type 2 (diabetes mellitus, type 2) Coronary heart disease Social History Preferred Language: Croatian Communication Ability: Effective Avian Keeper Required: No Beliefs That Will Affect Care: None marital status: / Current Living Situation: Family Current Living Situation Comment: brother Feels Safe at Home: Yes Safety Concerns: Feels Safe At This Time Smoking Status: Current every day smoker Tobacco Type: cigarettes ; Cigarettes Per Day: 20 ; Second Hand Exposure: No ; Hx Alcohol Use: Yes Alcohol type: beer Alcohol Intake Frequency: Weekly Alcohol Intake Frequency Comment: 3-4 beers/week Hx Substance Use: No Review of Systems Review of Systems: ROS per HPI, all other systems reviewed and negative Physical Exam Constitutional: WD/WN, vitals as above Eyes: PERRL, conjunctivae normal, anicteric sclerae ENMT: external ear and nose normal, oropharynx normal Respiratory: normal respiratory effort, lungs clear to auscultation Cardiovascular: Rate/Rhythm: regular rate and regular rhythm Vessels: normal peripheral pulses Extremities: no edema Gastrointestinal (Abdomen): Inspection/Auscultation: abdomen not distended and + abnormal bowel sounds (Hypoactive) Percussion/Palpation: + abdomen tender (Generally tender to palpation) and abdomen soft; no hepatosplenomegaly Musculoskeletal: no cyanosis or clubbing, extremities motor strength 5/5 Skin: no rashes, warm and dry Neurologic: PERRL, EOMI, accommodation nl, no face palsy, no dysarthria Psychiatric: Orientation: alert and oriented x 3 Affect: + flat affect Results & Data Vital Signs (Past 12 Hours) Vital Signs Temp Pulse Pulse Resp BP BP Pulse Ox 12/13/19 13:00 65 17 142/100 H 100 12/13/19 12:55 66 18 135/93 100 12/13/19 12:50 67 20 99 12/13/19 12:40 67 17 100 12/13/19 12:31 66 17 99 12/13/19 12:30 66 18 135/93 98 12/13/19 12:20 67 17 99 12/13/19 12:10 65 100 12/13/19 12:02 67 16 100 12/13/19 11:31 65 16 125/89 125/89 98 12/13/19 11:30 67 20 12/13/19 11:20 66 19 12/13/19 11:13 100 12/13/19 11:10 70 16 12/13/19 11:01 71 13 128/87 12/13/19 11:00 69 16 12/13/19 10:50 66 14 12/13/19 10:40 68 16 12/13/19 10:30 72 18 139/114 H 12/13/19 10:26 74 16 12/13/19 10:19 37.3 C 73 20 150/98 H 100 12/13/19 10:17 71 19 150/108 H Laboratory Results Short CBC 12/13/19 Range/Units 11:12 WBC 3.83 L (4.8-10.8) K/uL Hgb 8.5 L (12.0-16.0) g/dL Hct 27.0 L (37-47) % Plt Count 249 (130-400) K/uL BMP 12/13/19 11:12 Sodium 146 H Potassium 2.8 L D Chloride 119 H Carbon Dioxide 22 BUN 5 L Creatinine 0.69 D Glucose 81 Calcium 7.6 L Liver Function 12/13/19 Range/Units 11:12 Total Bilirubin 0.2 (0.2-1) mg/dl AST 23 (15-37) U/L ALT 23 (12-78) U/L Alkaline Phosphatase 73 (45-117) U/L Albumin 2.5 L (3.4-5.0) gm/dl Diagnostic Findings KUB X-RAY IMPRESSION: No significant change in the multiple mildly dilated gas-filled loops of large and small bowel seen throughout the abdomen. This is nonspecific but favors an ileus. Code Status & VTE Plan Code Status Patient is a DNR as per my discussion with her. VTE Prophylaxis Plan VTE Prophylaxis will be ordered: Yes Supervising Physician Co-Signing Physician Notes 59 F with gastroparesis, GERD and multiple admissions for nausea and abdominal pain. History and physical exam performed by me Refer to note by Alexa CARO for detailed history Patient currently complaining of nausea, dry heaves and epigastric burning pain, anorexia Physical exam is significant for mild epigastric tenderness Labs significant for chronic microcytic anemia, hypokalemia of 2.8, hypophosphatemia 2.1, hypomagnesemia 1.7 XRAY Abdomen FINDINGS: Multiple mildly dilated gas-filled loops of large and small bowel are again noted. The small bowel continues to measure up to 3.3 cm in diameter. This is similar to the prior study. Calcified epigastric nodule is again noted. Postoperative changes within the left upper quadrant. No renal calculi. No ureteral calculi. No pneumoperitoneum or pneumatosis. IMPRESSION: No significant change in the multiple mildly dilated gas-filled loops of large and small bowel seen throughout the abdomen. This is nonspecific but favors an ileus EKG with QTc of 501 Plan Continue antiemetics, IVF Replete electrolytes aggressively and monitor NPO for now and advance diet as tolerated Repeat EKG to monitor QTc. Avoid QTc prolonging meds as able (1) Depression Depression Type: unspecified Qualified Code(s): F32.9 - Major depressive disorder, single episode, unspecified (2) Hypothyroidism Hypothyroidism type: acquired Qualified Code(s): E03.9 - Hypothyroidism, unspecified (3) GERD (gastroesophageal reflux disease) Esophagitis presence: with esophagitis Qualified Code(s): K21.0 - Gastro- esophageal reflux disease with esophagitis
[2019-12-13] MEDS ORDERED: MAGNESIUM SULFATE / D5W 1 GM/100 ML BAG IV ONE (14:00)
[2019-12-13] MEDS: POTASSIUM PHOSPHATE 9 MMOL in SODIUM CHLORIDE 0.9% 250 ML IV ONE ×2 (14:09→16:35)
[2019-12-13] MEDS: POTASSIUM CHLORIDE 40 MEQ in SODIUM CHLORIDE 0.45 % 1,000 ML IV SCH ×2 (14:10→22:09)
[2019-12-13] MEDS: DICYCLOMINE HCL 10 MG CAP PO PRN (14:43)
[2019-12-13] MEDS: METOCLOPRAMIDE HCL 10 MG TABLET PO SCH (16:46)
[2019-12-13 17:18] LABS: Appearance Urine Clear (Clear); Bacteria Urine Automated Negative (Negative); Bilirubin Urine Negative (Negative); Blood Urine Negative (Negative); Cast Urine Automated 0 /lpf (0-5); Color Urine Yellow; Glucose Urine UA Negative (Negative); Ketones Urine Negative (Negative); Leukocyte Esterase Urine Trace (Negative); Nitrite Urine Negative (Negative); Protein Urine Negative (Negative); RBC Urine Automated 0-4 /hpf (0-4); Specific Gravity Urine 1.007 (1.000-1.030); Urobilinogen Urine Negative (Negative)
[2019-12-13] MEDS: PROMETHAZINE HCL 12.5 MG in SODIUM CHLORIDE 0.9% 50 ML IV PRN ×2 (17:36→23:30)
[2019-12-13] MEDS: CALCIUM CARBONATE 500 MG CHEWABLE TAB PO PRN ×2 (17:37→23:20)
--- NOTE | 2019-12-13 18:24 | Electrocardiogram Report ---
Test Reason : Blood Pressure : / mmHG Vent. Rate : 066 BPM Atrial Rate : 066 BPM P-R Int : 148 ms QRS Dur : 084 ms QT Int : 478 ms P-R-T Axes : 041 001 -37 degrees QTc Int : 501 ms Normal sinus rhythm Nonspecific T wave abnormality Abnormal ECG When compared with ECG of 07-DEC-2019 12:30, No significant change was found Confirmed by Pedro Pablo Mendoza ([id number]) on 12/13/2019 6:24:10 PM Referred By: REFERRED SELF Confirmed By:Otto Mendoza
[2019-12-13 18:49] LABS: BUN Creatinine Ratio 5.3 (10-20); Calcium 7.8 mg/dl (8.5-10.1); Creatinine Clr Calc Pharmacy 68.2 ml/min; Est GFR (African American) 85.7; Potassium 3.7 mmol/L (3.5-5.1)
[2019-12-13] MEDS: FAMOTIDINE 20 MG in SYRINGE 3 ML IV SCH (20:01)
[2019-12-13] MEDS: METOPROLOL SUCC 25MG EXT REL TAB PO SCH (20:03)
[2019-12-13] MEDS: PANTOprazole 40 MG TAB PO SCH (20:04)
[2019-12-13] MEDS: ESCITALOPRAM OXALATE 10 MG TAB PO SCH (20:05)
[2019-12-13] MEDS: clonazePAM 0.5 MG TAB PO PRN (23:35)
[2019-12-14] MEDS: POTASSIUM CHLORIDE 40 MEQ in SODIUM CHLORIDE 0.45 % 1,000 ML IV SCH (05:39)
[2019-12-14] MEDS: DICYCLOMINE HCL 10 MG CAP PO PRN ×2 (05:39→17:26)
[2019-12-14] MEDS: LEVOTHYROXINE SODIUM 88 MCG TABLET PO SCH (05:51)
[2019-12-14] MEDS: PROMETHAZINE HCL 12.5 MG in SODIUM CHLORIDE 0.9% 50 ML IV PRN (05:51)
[2019-12-14 05:57] LABS: Hematocrit (blood only) 27.6 % (37-47); Hemoglobin 8.7 g/dL (12.0-16.0); Mean Corpuscular Hemoglobin 25.3 pg (25-34); Mean Corpuscular Hgb Conc 31.5 g/dL (32-36); Mean Corpuscular Volume 80.2 fL (80-100); Mean Platelet Volume 9.5 fL (7.4-10.4); Platelet Count 258 K/uL (130-400); RDW Coefficient of Variation 18.2 % (11.5-14.5); RDW Standard Deviation 53.6 fL (36.4-46.3); Red Blood Count 3.44 M/uL (4.2-5.4); White Blood Count 3.66 K/uL (4.8-10.8)
[2019-12-14 06:42] LABS: BUN Creatinine Ratio 5.8 (10-20); Creatinine Clr Calc Pharmacy 63.7 ml/min; Est GFR (African American) 78.9; Est GFR (Non-African American) 68.1; Magnesium 2.2 mg/dl (1.8-2.4); Potassium 4.4 mmol/L (3.5-5.1)
[2019-12-14 06:52] LABS: Ferritin 6.4 ng/ml (8-388); Phosphorus 4.3 mg/dl (2.5-4.9)
[2019-12-14] MEDS: clonazePAM 0.5 MG TAB PO PRN (08:17)
[2019-12-14] MEDS: METOPROLOL SUCC 25MG EXT REL TAB PO SCH ×2 (08:18→20:38)
[2019-12-14] MEDS: METOCLOPRAMIDE HCL 10 MG TABLET PO SCH ×3 (08:18→17:25)
[2019-12-14] MEDS: PANTOprazole 40 MG TAB PO SCH ×2 (08:19→20:37)
[2019-12-14] MEDS: FAMOTIDINE 20 MG in SYRINGE 3 ML IV SCH ×2 (08:22→20:41)
[2019-12-14] MEDS: HEPARIN 100 UNIT/ML 5ML FLUSH FLUSH PRN (08:25)
[2019-12-14 10:57] LABS: Folate (Folic Acid) 16.78 ng/ml (>5.38)
[2019-12-14] MEDS: LACTATED RINGER'S 1,000 ML IV SCH (11:08)
--- NOTE | 2019-12-14 13:22 | Hospitalist Progress Note ---
Date of Service December 14, 2019 Assessment & Plan (1) Intractable vomiting with nausea: (2) Gastroparesis: -Patient has had several admissions in the past for the same. -Longstanding history of gastroparesis with frequent flares. Had been receiving IV Emend however does not appear to be effective anymore. -KUB suggest possible ileus -Symptoms remarkably improving -Resume diet and advance as tolerated -Continue supportive care with IVF, PRN antiemetics, IV H2 lauren, home doses of Reglan and PPI (3) Hypokalemia: (4) Hypomagnesemia: (5) Hypophosphatemia: -On admission, K+ 2.8, phosphorus 2.1, MG +1.7. Likely due to poor p.o. intake -Electrolyte has been aggressively repleted. K is 4.5 this morning, magnesium is 2.2, phosphorus is 4.3 (6) Anemia: -Hgb 8.7 -Chronic microcytic anemia likely secondary to iron deficiency per labs -Poor p.o. intake -No signs of active bleeding -Chart history of iron deficiency and pernicious anemia -We will give Venofer IV (7) Prolonged QT interval: -QTC 501, in the setting of several electrolyte abnormalities on admission. -Repeat EKG yesterday showed improvement to 493 -Avoid QTC prolonging agents (8) Paroxysmal A-fib: (9) Frequent PVCs: -During recent admission, had episodic atrial fibrillation in the setting of hypokalemia. Was started on metoprolol. Anticoagulation not initiated due to GI issues and anemia. -Longstanding history of frequent PVCs that has been managed on digoxin, will continue -Currently in NSR (10) Depression: (11) Anxiety: -Continue escitalopram (12) GERD (gastroesophageal reflux disease): -IV H2 lauren, p.o. PPI (13) Hypothyroidism: -Continue levothyroxine (14) DVT prophylaxis: -SCDs due to anemia -Encouraged to ambulate Admission and Anticipated Discharge Date Admission Date: December 13, 2019 Subjective Patient seen and examined. Reports symptoms improving. Does not have abdominal pain at this time. Nausea is very much improved. Has not had any dry heaves this morning. Passing flatus but has not moved her bowel. Denied any other symptoms Physical Exam Constitutional: well developed and + well hydrated; no acute distress Eyes: PERRL, conjunctivae normal, anicteric sclerae ENMT: external ear and nose normal, oropharynx normal Respiratory: normal respiratory effort, lungs clear to auscultation Cardiovascular: RRR, no murmur, no edema Gastrointestinal (Abdomen): normal bowel sounds, soft, nontender, no hepatosplenomegaly Neurologic: PERRL, EOMI, accommodation nl, no face palsy, no dysarthria Psychiatric: A+Ox3, euthymic affect Results & Data ([facility]) Vital Signs (Past 12 Hours) Vital Signs Temp Pulse Resp BP Pulse Ox 12/14/19 08:15 60 12/14/19 07:46 36.8 C 57 L 19 107/74 98 Laboratory Results Short CBC 12/14/19 Range/Units 05:43 WBC 3.66 L (4.8-10.8) K/uL Hgb 8.7 L (12.0-16.0) g/dL Hct 27.6 L (37-47) % Plt Count 258 (130-400) K/uL BMP 12/13/19 12/14/19 18:18 05:43 Sodium 143 142 Potassium 3.7 D 4.4 D Chloride 115 H 115 H Carbon Dioxide 22 22 BUN 5 L 5 L Creatinine 0.85 0.91 Glucose 84 83 Calcium 7.8 L 8.0 L Urine 12/13/19 Range/Units 17:00 Urine Color Yellow Urine Appearance Clear (Clear) Urine pH 8.0 H (4.5-7.5) Ur Specific [place] 1.007 (1.000-1.030) Urine Protein Negative (Negative) Urine Glucose (UA) Negative (Negative) (1) Depression Depression Type: unspecified Qualified Code(s): F32.9 - Major depressive disorder, single episode, unspecified (2) GERD (gastroesophageal reflux disease) Esophagitis presence: with esophagitis Qualified Code(s): K21.0 - Gastro-esophageal reflux disease with esophagitis (3) Hypothyroidism Hypothyroidism type: acquired Qualified Code(s): E03.9 - Hypothyroidism, unspecified
[2019-12-14] MEDS: IRON SUCROSE 200 MG in 0.9 % SODIUM CHLORIDE 100 ML IV SCH (14:35)
--- NOTE | 2019-12-14 18:24 | Electrocardiogram Report ---
Test Reason : Blood Pressure : / mmHG Vent. Rate : 068 BPM Atrial Rate : 068 BPM P-R Int : 136 ms QRS Dur : 080 ms QT Int : 464 ms P-R-T Axes : 058 017 030 degrees QTc Int : 493 ms Sinus rhythm with marked sinus arrhythmia Abnormal ECG When compared with ECG of 13-DEC-2019 13:02, T wave inversion no longer evident in Inferior leads Confirmed by Pedro Pablo Mendoza ([id number]) on 12/14/2019 6:24:19 PM Referred By: REFERRED SELF Confirmed By:Otto Mendoza
[2019-12-14] MEDS: ESCITALOPRAM OXALATE 10 MG TAB PO SCH (20:37)
[2019-12-14] MEDS: CALCIUM CARBONATE 500 MG CHEWABLE TAB PO PRN (20:41)
[2019-12-15] MEDS: LACTATED RINGER'S 1,000 ML IV SCH ×3 (00:54→23:59)
[2019-12-15 05:58] LABS: Hematocrit (blood only) 28.1 % (37-47); Hemoglobin 8.8 g/dL (12.0-16.0); Mean Corpuscular Hgb Conc 31.3 g/dL (32-36); Mean Corpuscular Volume 79.8 fL (80-100); Mean Platelet Volume 9.9 fL (7.4-10.4); Platelet Count 274 K/uL (130-400); RDW Coefficient of Variation 18.3 % (11.5-14.5); RDW Standard Deviation 52.7 fL (36.4-46.3); Red Blood Count 3.52 M/uL (4.2-5.4); White Blood Count 4.94 K/uL (4.8-10.8)
[2019-12-15 06:27] LABS: BUN Creatinine Ratio 7.9 (10-20); Calcium 8.5 mg/dl (8.5-10.1); Creatinine Clr Calc Pharmacy 56.8 ml/min; Est GFR (African American) 68.8; Est GFR (Non-African American) 59.3; Magnesium 2.2 mg/dl (1.8-2.4); Potassium 4.1 mmol/L (3.5-5.1)
[2019-12-15] MEDS: LEVOTHYROXINE SODIUM 88 MCG TABLET PO SCH (06:35)
[2019-12-15 06:44] LABS: Phosphorus 3.7 mg/dl (2.5-4.9)
[2019-12-15] MEDS: PROMETHAZINE HCL 12.5 MG in SODIUM CHLORIDE 0.9% 50 ML IV PRN ×2 (07:11→21:11)
[2019-12-15] MEDS: FAMOTIDINE 20 MG in SYRINGE 3 ML IV SCH ×2 (08:29→20:50)
[2019-12-15] MEDS: METOCLOPRAMIDE HCL 10 MG TABLET PO SCH ×3 (08:30→16:49)
[2019-12-15] MEDS: PANTOprazole 40 MG TAB PO SCH ×2 (08:30→20:46)
[2019-12-15] MEDS: METOPROLOL SUCC 25MG EXT REL TAB PO SCH ×2 (08:30→20:46)
[2019-12-15] MEDS ORDERED: ONDANSETRON INJ 2 MG/ML 2 ML VIAL IV PRN (10:54)
--- NOTE | 2019-12-15 11:13 | Hospitalist Progress Note ---
Date of Service December 15, 2019 Assessment & Plan (1) Intractable vomiting with nausea: (2) Gastroparesis: -Patient has had several admissions in the past for the same. -Longstanding history of gastroparesis with frequent flares. Had been receiving IV Emend however does not appear to be effective anymore. -KUB suggest possible ileus -Symptoms remarkably improving -Continue regular diet -Continue supportive care with IVF, PRN antiemetics, IV H2 lauren, home doses of Reglan and PPI (3) Hypokalemia: (4) Hypomagnesemia: (5) Hypophosphatemia: -On admission, K+ 2.8, phosphorus 2.1, MG +1.7. Likely due to poor p.o. intake -Electrolyte has been aggressively repleted. Electrolyte abnormalities is resolved. -Continue to monitor especially with diarrhea (6) Anemia: -Hgb 8.8 -Chronic microcytic anemia likely secondary to iron deficiency per labs -Poor p.o. intake -No signs of active bleeding -Chart history of iron deficiency and pernicious anemia -Got IV iron yesterday (7) Prolonged QT interval: -QTC 501, in the setting of several electrolyte abnormalities on admission. -Prolonged QTC has resolved. Last EKG yesterday showed QTC of 442. -Avoid QTC prolonging agents (8) Paroxysmal A-fib: (9) Frequent PVCs: -During recent admission, had episodic atrial fibrillation in the setting of hypokalemia. Was started on metoprolol. Anticoagulation not initiated due to GI issues and anemia. -Longstanding history of frequent PVCs that has been managed on digoxin -Continue home metoprolol -Currently in NSR (10) Depression: (11) Anxiety: -Continue escitalopram (12) GERD (gastroesophageal reflux disease): -IV H2 lauren, p.o. PPI (13) Hypothyroidism: -Continue levothyroxine (14) DVT prophylaxis: -SCDs -Encouraged to ambulate Admission and Anticipated Discharge Date Admission Date: December 13, 2019 Subjective Patient seen and examined. Reports improvement in symptoms. Still reports intermittent nausea and dry heaves. Stated that this has reduced in frequency. Reports loose stool since yesterday evening. Denies any dizziness, palpitations or weakness, shortness of breath. No fevers. Denies any chills. Denies any cough, chest pain Physical Exam Constitutional: well developed and + well hydrated; no acute distress Eyes: PERRL, conjunctivae normal, anicteric sclerae ENMT: external ear and nose normal, oropharynx normal Respiratory: normal respiratory effort, lungs clear to auscultation Cardiovascular: RRR, no murmur, no edema Gastrointestinal (Abdomen): normal bowel sounds, soft, nontender, no hepatosplenomegaly Neurologic: PERRL, EOMI, accommodation nl, no face palsy, no dysarthria Psychiatric: A+Ox3, euthymic affect Results & Data ([facility]) Vital Signs (Past 12 Hours) Vital Signs Temp Pulse Resp BP Pulse Ox 12/15/19 06:39 36.9 C 60 20 115/72 94 12/14/19 23:14 36.9 C 61 17 119/80 95 Laboratory Results Short CBC 12/15/19 Range/Units 05:10 WBC 4.94 (4.8-10.8) K/uL Hgb 8.8 L (12.0-16.0) g/dL Hct 28.1 L (37-47) % Plt Count 274 (130-400) K/uL BMP 12/15/19 05:10 Sodium 144 Potassium 4.1 Chloride 113 H Carbon Dioxide 25 BUN 8 Creatinine 1.02 Glucose 82 Calcium 8.5 (1) Depression Depression Type: unspecified Qualified Code(s): F32.9 - Major depressive disorder, single episode, unspecified (2) Hypothyroidism Hypothyroidism type: acquired Qualified Code(s): E03.9 - Hypothyroidism, unspecified (3) GERD (gastroesophageal reflux disease) Esophagitis presence: with esophagitis Qualified Code(s): K21.0 - Gastro-esophageal reflux disease with esophagitis
[2019-12-15] MEDS: IRON SUCROSE 200 MG in 0.9 % SODIUM CHLORIDE 100 ML IV SCH (13:57)
--- NOTE | 2019-12-15 16:20 | Electrocardiogram Report ---
Test Reason : Blood Pressure : / mmHG Vent. Rate : 061 BPM Atrial Rate : 061 BPM P-R Int : 160 ms QRS Dur : 080 ms QT Int : 440 ms P-R-T Axes : 040 008 005 degrees QTc Int : 442 ms Normal sinus rhythm Normal ECG When compared with ECG of 13-DEC-2019 17:18, T wave amplitude has decreased in Anterolateral leads Confirmed by Pedro Pablo Mendoza ([id number]) on 12/15/2019 4:20:40 PM Referred By: REFERRED SELF Confirmed By:Otto Mendoza
[2019-12-15] MEDS: ESCITALOPRAM OXALATE 10 MG TAB PO SCH (20:46)
[2019-12-16] MEDS: DICYCLOMINE HCL 10 MG CAP PO PRN (05:40)
[2019-12-16] MEDS: LEVOTHYROXINE SODIUM 88 MCG TABLET PO SCH (05:41)
[2019-12-16] MEDS: PROMETHAZINE HCL 12.5 MG in SODIUM CHLORIDE 0.9% 50 ML IV PRN (05:41)
[2019-12-16 05:50] LABS: Hematocrit (blood only) 27.7 % (37-47); Hemoglobin 8.6 g/dL (12.0-16.0); Mean Corpuscular Hemoglobin 24.8 pg (25-34); Mean Corpuscular Volume 79.8 fL (80-100); Mean Platelet Volume 9.6 fL (7.4-10.4); Platelet Count 289 K/uL (130-400); RDW Coefficient of Variation 18.2 % (11.5-14.5); RDW Standard Deviation 52.4 fL (36.4-46.3); Red Blood Count 3.47 M/uL (4.2-5.4); White Blood Count 6.86 K/uL (4.8-10.8)
[2019-12-16 06:22] LABS: BUN Creatinine Ratio 8.9 (10-20); Calcium 8.1 mg/dl (8.5-10.1); Creatinine Clr Calc Pharmacy 56.3 ml/min; Est GFR (African American) 67.9; Est GFR (Non-African American) 58.6; Potassium 3.9 mmol/L (3.5-5.1)
[2019-12-16] MEDS: PANTOprazole 40 MG TAB PO SCH (08:06)
[2019-12-16] MEDS: METOCLOPRAMIDE HCL 10 MG TABLET PO SCH ×2 (08:06→12:13)
[2019-12-16] MEDS: METOPROLOL SUCC 25MG EXT REL TAB PO SCH (08:07)
[2019-12-16] MEDS: FAMOTIDINE 20 MG in SYRINGE 3 ML IV SCH (08:08)
[2019-12-16] MEDS: HEPARIN 100 UNIT/ML 5ML FLUSH FLUSH PRN (08:08)
[2019-12-16 08:36] VITALS: BP 116/81; TEMP 99; O2SAT 95
--- NOTE | 2019-12-16 11:32 | Discharge Summary ---
Date of Service December 16, 2019 Admission HPI Per Admitting Provider 59-year-old female who presents the ED for evaluation of nausea, vomiting, abdominal pain. Patient is well-known to our service, having several admissions for the same in the past, most recently being 12/06 to 12/10. Patient reports she only felt well for about 1/2-day since being discharged in the hospital. Had an ED visit on 12/10 and was discharged home. Patient reports persistent dry heaving and very poor p.o. intake. She has generalized abdominal pain, more localized in the left upper quadrant. She had a formed bowel movement in the ED today. She denies hematemesis, coffee-ground emesis, dark tarry stools, bright red bleeding per rectum. No chest pain, palpitations, or shortness of breath. Denies lightheadedness, dizziness, diaphoresis, syncopal event. No fevers or chills. She denies any urinary symptoms. In the ED, labs show Hgb 8.5, K+ 2.8, phosphorus 2.1, MG +1.7. Abdominal x-ray suggest possible ileus. Patient is hemodynamically stable. She was given IV diphenhydramine, IV Dilaudid, IV Zofran, IVF. Admission Exam Per Admitting Provider Constitutional: WD/WN, vitals as above Eyes: PERRL, conjunctivae normal, anicteric sclerae ENMT: external ear and nose normal, oropharynx normal Respiratory: normal respiratory effort, lungs clear to auscultation Cardiovascular: Rate/Rhythm: regular rate and regular rhythm Vessels: normal peripheral pulses Extremities: no edema Gastrointestinal (Abdomen): Inspection/Auscultation: abdomen not distended and + abnormal bowel sounds (Hypoactive) Percussion/Palpation: + abdomen tender (Generally tender to palpation) and abdomen soft; no hepatosplenomegaly Musculoskeletal: no cyanosis or clubbing, extremities motor strength 5/5 Skin: no rashes, warm and dry Neurologic: PERRL, EOMI, accommodation nl, no face palsy, no dysarthria Psychiatric: Orientation: alert and oriented x 3 Affect: + flat affect Principal Diagnosis Intractable nausea Gastroparesis Hypokalemia Hypomagnesemia Hypophosphatemia Discharge Exam Constitutional + well hydrated and comfortable; no acute distress Eyes PERRL, conjunctivae normal, anicteric sclerae ENMT external ear and nose normal, oropharynx normal Respiratory normal respiratory effort, lungs clear to auscultation Cardiovascular RRR, no murmur, no edema Gastrointestinal (Abdomen) normal bowel sounds, soft, nontender, no hepatosplenomegaly Neurologic PERRL, EOMI, accommodation nl, no face palsy, no dysarthria Psychiatric A+Ox3, euthymic affect Discharge Data Allergies Allergy/AdvReac Type Severity Reaction Status Date / Time adhesive Allergy Mild SKIN Verified 12/13/19 10:17 IRRITATION amoxicillin AdvReac Intermediate yeast Verified 12/13/19 10:17 infection NSAIDS (Non-Steroidal AdvReac Mild indegestion Verified 12/13/19 10:17 Anti-Inflamma rofecoxib AdvReac Mild indigestion Verified 12/13/19 10:17 scopolamine AdvReac Mild rash from Verified 12/13/19 10:17 patch lactose AdvReac Verified 12/13/19 10:17 Consultations 12/13/19 12:24 ED Decision to Admit Stat Hospital Course (1) Intractable vomiting with nausea: (2) Gastroparesis: -Patient has had several admissions in the past for the same. -Longstanding history of gastroparesis with frequent flares. Had been receiving IV Emend however does not appear to be effective anymore. -KUB suggested possible ileus -Symptoms remarkably improved. Reported she does have occasional nausea which is at her baseline now -Initially was NPO and once nausea was controlled, diet was resumed. Tolerating this well -ileus has resolved as patient is having regular bowel movement -Managed with supportive care with iv fluids and antiemetic -Patient will need to follow up with Gastroenterology outpatient. (3) Hypokalemia: (4) Hypomagnesemia: (5) Hypophosphatemia: -On admission, K+ 2.8, phosphorus 2.1, MG +1.7. Likely due to poor p.o. intake -Electrolytes were aggressively repleted. Electrolyte abnormalities are resolved. (6) Anemia: -Hgb 8.8 -Chronic microcytic anemia likely secondary to iron deficiency per labs -Poor p.o. intake -No signs of active bleeding -Chart history of iron deficiency and pernicious anemia -Got IV iron in this admission -Continue to monitor (7) Prolonged QT interval: -QTC 501, in the setting of several electrolyte abnormalities on admission. -Prolonged QTC has resolved. Last EKG showed QTC of 442. -Avoid QTC prolonging agents -Discussed with patient and daughter to avoid use of ondansetron as much as possible. Patient only required one dose of ondansetron while inpatient. Symptoms were controlled with dicyclomine, phenergan and metocloperamide (8) Paroxysmal A-fib: (9) Frequent PVCs: -During recent admission, had episodic atrial fibrillation in the setting of hypokalemia. Was started on metoprolol. Anticoagulation not initiated due to GI issues and anemia. 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 She is not sure if she still had some of them at home. I sent refills for the ones requested and asked her to go with all her meds including the empty bottles and discharge paperwork to her pharm for med rec. I also discussed this with patient's daughter over the phone Total Time Total Time Spent Total Time Spent (In Minutes): 40 Total Time Includes: Examination of the Patient, Discharge Planning, Medication Reconciliation and Other (Called patient's daughter and updated her on clinical course and plan for discharge. I encouraged her to go through her meds with her on discharge) Discharge Plan Discharge Items Patient Disposition: Home - Self-Care Reason For Visit: N/V,HYPOKALEMIA Discharge Diagnosis: Intractable nausea Gastroparesis Hypokalemia Hypomagnesemia Activity: Resume your previous activity Non-emergency contact: Primary Care Provider Call non-emergency contact if: you have any medication questions and your symptoms worsen Follow-up/Referrals: Jaleel Coppola MD [Primary Care Provider] - 12/18/19 9:00 am Diet: Regular and Heart Healthy Addtl Attending Provider Instructions: Ms Washington Osman came to the hospital for persistent nausea and abdominal pain. You were evaluated and found to have multiple electrolyte abnormalities with low potassium, low magnesium and phosphate. These were replenished. Your symptoms have improved. Please call gastroenterology office to schedule appointment with them It was a pleasure taking care of you. Pending Studies at Discharge: No Stand-Alone Forms: My [facility], Smoking Cessation Medications and DC Order Prescriptions: Continued clonazepam 0.5 mg Tablet 0.5 mg PO TID PRN (Reason: Panic Attack(S)) Qty: 0 RF: 0 multivitamin Tablet 1 tab PO QPM RF: 0 escitalopram oxalate [Lexapro] 20 mg Tablet 10 mg PO HS Qty: 0 RF: 0 pantoprazole 40 mg Tablet,Delayed Release (Dr/Ec) 40 mg PO BID Qty: 60 RF: 0 famotidine [Pepcid] 40 mg Tablet 40 mg PO BID Qty: 60 RF: 0 acetaminophen [Tylenol Extra Strength] 500 mg Tablet 1,000 mg PO Q6H PRN (Reason: Fever Or Pain) Qty: 60 RF: 0 levothyroxine [Synthroid] 88 mcg tablet 88 mcg PO QAM Qty: 30 RF: 0 promethazine 25 mg tablet 25 mg PO Q6H PRN (Reason: nausea) Qty: 30 RF: 0 metoprolol succinate 25 mg tablet extended release 24 hr 12.5 mg PO BID Qty: 30 RF: 1 dicyclomine 10 mg Capsule 10 mg PO BID PRN (Reason: abdominal discomfort) Qty: 60 RF: 0 metoclopramide HCl 10 mg tablet 10 mg PO TIDM Qty: 90 RF: 0 Discontinued ondansetron HCl [Zofran] 8 mg Tablet 8 mg PO Q6H PRN (Reason: Nausea) RF: 0 Discharge Orders: Discharge Order (Routine); Ordered 12/16/19 Ordered By: Keisha Beaver Admission Data Admit Date/Time: 12/13/19 12:46 Attending Provider: Keisha Beaver I. Admit Provider: Keisha Beaver I. Primary Care Provider: Jaleel Coppola Other Providers: Keisha Beaver I. Other Interventions: Discharge Summary Assessment (RN) Last Done: 12/16/19 11:57 DC Date/Time DO NOT enter until pt leaves facility: 12/16/19 13:00
[2019-12-16 12:02] VITALS: PULSE 65
== END 2019-12-16 13:00 | disposition home or self-care (01) | DRG 392 ==
LOC: ED 10:14 → 4W 12:46 → 3W 12-15 21:41

== ENCOUNTER 2020-07-04 05:46 | Observation (INO) ==
[2020-07-04] MEDS ORDERED: ONDANSETRON INJ 2 MG/ML 2 ML VIAL IV STA (06:21)
[2020-07-04] MEDS ORDERED: SODIUM CHLORIDE 0.9% 1000ML 1,000 ML IV ONE (07:00)
[2020-07-04] MEDS ORDERED: METOCLOPRAMIDE HCL INJ 5 MG/ML 2 ML VIAL IV ONE (07:00)
[2020-07-04] MEDS ORDERED: DiphenhydrAMINE HCL 50 MG/ML VIAL IV STA (07:00)
[2020-07-04 07:03] LABS: Basophils # (auto) 0.01 K/uL (0-0.2); Basophils % (auto) 0.1 %; Eosinophils # (auto) 0.02 K/uL (0-0.5); Eosinophils % (auto) 0.2 %; Hematocrit (blood only) 36.5 % (37-47); Hemoglobin 11.8 g/dL (12.0-16.0); Immature Granulocytes # (auto) 0.01 K/uL (0.00-0.02); Immature Granulocytes % (auto) 0.1 %; Lymphocytes % (auto) 17.1 %; Mean Corpuscular Hemoglobin 26.8 pg (25-34); Mean Corpuscular Hgb Conc 32.3 g/dL (32-36); Mean Platelet Volume 9.4 fL (7.4-10.4); Monocytes # (auto) 0.27 K/uL (0.11-0.59); Monocytes % (auto) 3.1 %; Neutrophils # (auto) 6.94 K/uL (1.4-6.5); Neutrophils % (auto) 79.4 %; Platelet Count 299 K/uL (130-400); RDW Coefficient of Variation 16.4 % (11.5-14.5); RDW Standard Deviation 49.9 fL (36.4-46.3); White Blood Count 8.75 K/uL (4.8-10.8)
[2020-07-04 07:19] LABS: Alanine Aminotransferase 20 U/L (12-78); Albumin Level 3.6 gm/dl (3.4-5.0); Aspartate Aminotransferase 21 U/L (15-37); BUN Creatinine Ratio 11.8 (10-20); Blood Urea Nitrogen 14 mg/dl (7-18); Calcium 9.4 mg/dl (8.5-10.1); Carbon Dioxide 20 mmol/L (21-32); Chloride 108 mmol/L (98-107); Est GFR (African American) 59.7; Est GFR (Non-African American) 51.5; Glucose 130 mg/dl (70-99); Lipase 78 U/L (73-393); Magnesium 1.5 mg/dl (1.8-2.4); Potassium 3.8 mmol/L (3.5-5.1); Sodium 139 mmol/L (136-145)
[2020-07-04 07:22] LABS: Albumin Globulin Ratio 0.9 (0.9-2); Alkaline Phosphatase 93 U/L (45-117); Bilirubin,Total 0.6 mg/dl (0.2-1); Total Protein 7.6 gm/dl (6.4-8.2)
[2020-07-04 07:27] LABS: Appearance Urine Clear (Clear); Bacteria Urine Automated Negative (Negative); Bilirubin Urine Negative (Negative); Blood Urine Negative (Negative); Color Urine Yellow; Epithelial Cell Urine Auto 20-30 /lpf (0-5); Glucose Urine UA Negative (Negative); Ketones Urine Trace (Negative); Leukocyte Esterase Urine Trace (Negative); Nitrite Urine Negative (Negative); Protein Urine Negative (Negative); RBC Urine Automated 0-4 /hpf (0-4); Specific Gravity Urine 1.014 (1.000-1.030); Urobilinogen Urine Negative (Negative)
[2020-07-04] MEDS ORDERED: MoRPHine SULFATE 4 MG/ML 1 ML CARP\\VIAL IV STA (07:39)
[2020-07-04] MEDS: MAGNESIUM SULFATE / D5W 1 GM/100 ML BAG IV SCH ×2 (07:43→08:55)
--- NOTE | 2020-07-04 07:59 | XRay Report ---
PA CHEST RADIOGRAPH AND UPRIGHT AND SUPINE AP RADIOGRAPHS OF THE ABDOMEN CLINICAL HISTORY: Vomiting. COMPARISON STUDY: Chest radiograph and abdominal series December 17, 2019. FINDINGS: Right internal jugular [id number] is in place. Hyperdense material projecting over the lower mediastinum is unchanged. Cardiac size is normal. Slight blunting of the right costophrenic ang le is chronic. There is no consolidation. No evidence for pulmonary edema. No free air is identified. The bowel gas pattern is normal. IMPRESSION: 1. No free air or evidence of bowel obstruction. 2. No acute cardiopulmonary findings. No change in appearance of the chest. ACT 112: Negative or not required by law. Electronically signed by: Alex Moy M.D. 07/04/2020 7:58 AM
--- NOTE | 2020-07-04 08:10 | Emergency Department Note ---
History of Present Illness General Chief complaint: Nausea Stated complaint: GASTROPARISIS Time Seen by Provider: 07/04/20 06:52 History of Present Illness Provider complaint: Nausea and vomiting Onset (ago): hour(s) 7 Location: abdomen Severity: moderate and severe Pain Consistency: + constant Maximum Pain Intensity: 7 Current Pain Intensity: 9 Quality: + stabbing and + sharp Relieved By: + none Exacerbated By: + none Associated symptoms: + loss of appetite and + nausea/vomiting; no chest pain, no fever/chills, no headaches and no shortness of breath 60-year-old female presents emergency department with abdominal pain nausea vomiting. Patient states her symptoms began at midnight. She states that she has been having dry heaves and clear vomit. No hematemesis bilious vomiting or coffee-ground emesis. No melena or hematochezia. No vaginal bleeding or dysuria or hematuria. Patient states she has a history of gastroparesis. Home Medications Home Medications Medication Instructions Recorded Confirmed Type multivitamin 1 tab PO QPM 09/09/18 07/04/20 History pantoprazole 40 mg PO BID #60 tab 12/10/19 07/04/20 Rx acetaminophen [Tylenol Extra 1,000 mg PO Q6H PRN #60 tab 12/16/19 07/04/20 Rx Strength] famotidine [Pepcid] 40 mg PO BID #60 tab 12/16/19 07/04/20 Rx levothyroxine [Synthroid] 88 mcg PO QAM #30 tab 12/16/19 07/04/20 Rx metoclopramide HCl 10 mg PO TIDM #90 tab 12/16/19 07/04/20 Rx metoprolol succinate 12.5 mg PO BID #30 tab 12/16/19 07/04/20 Rx dicyclomine 10 mg PO BID PRN 12/17/19 07/04/20 History promethazine 25 mg PO Q6H PRN 12/17/19 07/04/20 History Allergies Allergy/AdvReac Type Severity Reaction Status Date / Time adhesive Allergy Mild SKIN Verified 07/04/20 06:35 IRRITATION amoxicillin AdvReac Intermediate yeast Verified 07/04/20 06:35 infection lactose AdvReac Intermediate Gastrointestinal Verified 07/04/20 06:35 Upset NSAIDS (Non-Steroidal AdvReac Mild indegestion Verified 07/04/20 06:35 Anti-Inflamma rofecoxib AdvReac Mild indigestion Verified 07/04/20 06:35 scopolamine AdvReac Mild rash from Verified 07/04/20 06:35 patch Past Med/Surg History Medical History Anemia, iron deficiency Anxiety Asthma COPD (chronic obstructive pulmonary disease) Depression Diverticulosis Frequent PVCs Gastroparesis GERD (gastroesophageal reflux disease) H/O irritable bowel syndrome HTN (hypertension) Hypothyroidism Mitral regurgitation "moderate per echo 09/21/15" MRSA bacteremia Neuropathy Paroxysmal A-fib Pemphigus vulgaris Pernicious anemia Premature atrial contractions Tobacco abuse Surgical History History of bladder surgery History of laparoscopic partial gastrectomy History of pyloroplasty History of total hysterectomy Hx of cholecystectomy Hx of tonsillectomy S/P hysterectomy S/P laparoscopic sleeve gastrectomy S/P partial gastrectomy S/P repair of paraesophageal hernia "resulted in volvulus, required abdominal exploration" S/P tonsillectomy and adenoidectomy Family History Mother DM type 2 (diabetes mellitus, type 2) Coronary heart disease Social History Smoking Status: Heavy tobacco smoker Tobacco Type: Cigarettes Cigarettes Per Day: 20; Second Hand Exposure: No; Do You Dip or Chew Tobacco: No; Hx Alcohol Use: Yes Alcohol type: beer Alcohol Intake Frequency Comment: 3-4 beers/week Hx Substance Use: No Preferred Language: Kenyan Communication Ability: Effective Spa Host Required: No Beliefs That Will Affect Care: None marital status: / Current Living Situation: Family Current Living Situation Comment: Lives with brother Other Information That Helps Us Care for You: No Feels Safe at Home: Yes Assistive Devices: Glasses Review of Systems A total of 10 systems reviewed and were otherwise negative Physical Exam Vital Signs Vital Signs - 24 hr 07/04/20 05:57 07/04/20 07:18 07/04/20 07:20 Temperature 37.1 C Temperature Source Oral Pulse Rate 74 81 Pulse Rate [Apical] Pulse Rate from SpO2 Sensor 77 Pulse Rhythm Regular Pulse Strength Normal Respiratory Rate 20 21 Respiratory Effort / Characteristics Non-Labored Spontaneous Respiratory Depth Normal Respiratory Pattern Regular Blood Pressure 158/106 H 172/113 H Blood Pressure [Right Arm] Blood Pressure Mean 123 135 Blood Pressure Mean [Right Arm] Blood Pressure Position Sitting Pulse Oximetry 97 100 99 Oxygen Delivery Method Room Air Room Air Oxygen Flow Rate Sepsis Recent Fever Within 48 Hours No Sepsis New/Unexplained Change in Mental Status N/A Sepsis Action Taken by Nursing No Action Required Oxygen Flow Rate - Titration Pulse Oximetry Post Tiitration 07/04/20 07:21 07/04/20 07:30 07/04/20 08:05 Temperature Temperature Source Pulse Rate 82 82 80 Pulse Rate [Apical] 83 Pulse Rate from SpO2 Sensor 78 79 81 Pulse Rhythm Pulse Strength Respiratory Rate 22 19 18 Respiratory Effort / Characteristics Non-Labored Respiratory Depth Normal Respiratory Pattern Blood Pressure Blood Pressure [Right Arm] 172/113 H Blood Pressure Mean Blood Pressure Mean [Right Arm] 132 Blood Pressure Position Pulse Oximetry 99 92 97 Oxygen Delivery Method Room Air Oxygen Flow Rate Sepsis Recent Fever Within 48 Hours Sepsis New/Unexplained Change in Mental Status Sepsis Action Taken by Nursing Oxygen Flow Rate - Titration Pulse Oximetry Post Tiitration 07/04/20 08:15 07/04/20 08:19 07/04/20 08:30 Temperature Temperature Source Pulse Rate 82 81 86 Pulse Rate [Apical] Pulse Rate from SpO2 Sensor 82 81 84 Pulse Rhythm Pulse Strength Respiratory Rate 26 H 28 H 16 Respiratory Effort / Characteristics Respiratory Depth Respiratory Pattern Blood Pressure 143/100 H Blood Pressure [Right Arm] Blood Pressure Mean 112 Blood Pressure Mean [Right Arm] Blood Pressure Position Pulse Oximetry 96 97 88 L Oxygen Delivery Method Oxygen Flow Rate Sepsis Recent Fever Within 48 Hours Sepsis New/Unexplained Change in Mental Status Sepsis Action Taken by Nursing Oxygen Flow Rate - Titration Pulse Oximetry Post Tiitration 07/04/20 08:45 07/04/20 09:09 07/04/20 09:10 Temperature Temperature Source Pulse Rate 84 82 83 Pulse Rate [Apical] Pulse Rate from SpO2 Sensor 82 82 83 Pulse Rhythm Pulse Strength Respiratory Rate 16 18 15 Respiratory Effort / Characteristics Respiratory Depth Respiratory Pattern Blood Pressure 135/91 Blood Pressure [Right Arm] Blood Pressure Mean 108 Blood Pressure Mean [Right Arm] Blood Pressure Position Pulse Oximetry 98 95 87 L Oxygen Delivery Method Oxygen Flow Rate Sepsis Recent Fever Within 48 Hours Sepsis New/Unexplained Change in Mental Status Sepsis Action Taken by Nursing Oxygen Flow Rate - Titration Pulse Oximetry Post Tiitration 07/04/20 09:15 10/11/20 09:30 07/04/20 09:45 Temperature Temperature Source Pulse Rate 91 H 80 84 Pulse Rate [Apical] Pulse Rate from SpO2 Sensor 92 H 80 85 Pulse Rhythm Pulse Strength Respiratory Rate 19 19 17 Respiratory Effort / Characteristics Respiratory Depth Respiratory Pattern Blood Pressure Blood Pressure [Right Arm] Blood Pressure Mean Blood Pressure Mean [Right Arm] Blood Pressure Position Pulse Oximetry 97 99 98 Oxygen Delivery Method Oxygen Flow Rate Sepsis Recent Fever Within 48 Hours Sepsis New/Unexplained Change in Mental Status Sepsis Action Taken by Nursing Oxygen Flow Rate - Titration Pulse Oximetry Post Tiitration 07/04/20 09:56 07/04/20 10:00 07/04/20 10:15 Temperature Temperature Source Pulse Rate 78 82 Pulse Rate [Apical] Pulse Rate from SpO2 Sensor 74 77 Pulse Rhythm Pulse Strength Respiratory Rate 15 18 Respiratory Effort / Characteristics Respiratory Depth Respiratory Pattern Blood Pressure 141/95 H Blood Pressure [Right Arm] Blood Pressure Mean 109 Blood Pressure Mean [Right Arm] Blood Pressure Position Pulse Oximetry 85 L 98 97 Oxygen Delivery Method Nasal Cannula Oxygen Flow Rate 0 Sepsis Recent Fever Within 48 Hours Sepsis New/Unexplained Change in Mental Status Sepsis Action Taken by Nursing Oxygen Flow Rate - Titration 2 Pulse Oximetry Post Tiitration 99 07/04/20 10:30 07/04/20 10:45 Temperature Temperature Source Pulse Rate 81 79 Pulse Rate [Apical] Pulse Rate from SpO2 Sensor 81 80 Pulse Rhythm Pulse Strength Respiratory Rate 16 17 Respiratory Effort / Characteristics Respiratory Depth Respiratory Pattern Blood Pressure Blood Pressure [Right Arm] Blood Pressure Mean Blood Pressure Mean [Right Arm] Blood Pressure Position Pulse Oximetry 98 89 L Oxygen Delivery Method Oxygen Flow Rate Sepsis Recent Fever Within 48 Hours Sepsis New/Unexplained Change in Mental Status Sepsis Action Taken by Nursing Oxygen Flow Rate - Titration Pulse Oximetry Post Tiitration Physical Exam GENERAL: Patient dry heaving in the room. HENT: Exam performed. -Head: Normocephalic and atraumatic. -Right Ear: External ear normal. No mastoid tenderness. -Left Ear: External ear normal. No mastoid tenderness. -Mouth/Throat: The oropharynx is clear and moist. No trismus in the jaw. No dental abscesses or uvula swelling. No oropharyngeal exudate or tonsillar abscesses. EYES: Conjunctivae and EOM are normal. Pupils are equal, round, and reactive to light. Right eye exhibits no discharge. Left eye exhibits no discharge. No scleral icterus. NECK: Normal range of motion. Neck supple. No JVD present. No spinous process tenderness present. No carotid bruit present. No rigidity. No tracheal deviation and normal range of motion present. No Brudzinski's sign and no Kernig's sign noted. CV: Normal rate, regular rhythm, normal heart sounds and intact distal pulses. There is no peripheral edema. Palpable radial pulses bue. PULM/CHEST: Effort normal and breath sounds normal. No respiratory distress. No stridor. She has no wheezes. She has no rales. -Chest Wall: She exhibits no tenderness. ABD: The abdomen is soft. Bowel sounds are normal. She has no distension. No mass is present. Diffuse tenderness to palpation of the abdomen. There is no rebound, no guarding, no Tolentino's sign and no tenderness at McBurney's point. Rovsig negative MUSC/SKEL: Normal range of motion. There is no peripheral edema, tenderness or deformity. LYMPH: No cervical adenopathy. NEURO: She is alert and oriented to person, place, and time. She has normal strength. No cranial nerve deficit or sensory deficit. Coordination and gait normal. GCS eye subscore is 4. GCS verbal subscore is 5. GCS motor subscore is 6. Cerebellar tests wnl. SKIN: Skin is warm and dry. She is not diaphoretic. PSYCH: She has a normal mood and affect. Behavior is normal. Judgment and thought content normal. Course Course 0652: The patient was evaluated in room B6. A complete history and physical exam was performed. EMR reviewed. In the last 12 months patient has had 3 CT scans of her abdomen which have shown no obstruction or acute findings. 0809: On reassessment the patient is continued having dry heaves. She is reporting increasing abdominal pain. Mg 1.5. Will obtain CTA of abdomen given that the patient is having increasing abdominal pain. 0930: Vital signs stable. Patient still asking for nausea and pain medication. Patient will be admitted to the hospital by the [facility] service. Dr. thomas notified. Administered Medications Dicyclomine HCl (Dicyclomine Hcl 10 Mg Cap) 10 mg PO BID PRN PRN Reason: Abdominal Discomfort Stop: 08/03/20 12:23 Last Admin: 07/04/20 13:55 Dose: 10 mg Documented by: [id number] Magnesium Sulfate/Dextrose (Magnesium Sulfate / D5w) 1 gm in 100 mls @ 50 mls /hr IV 1245 ONE Stop: 07/04/20 14:44 Last Admin: 07/04/20 12:56 Dose: 50 mls/hr Documented by: [id number] Sodium Chloride (Nss 1000ml) 1,000 mls @ 80 mls/hr IV .[id number] RUSSELL Stop: 07/05/20 00:53 Last Admin: 07/04/20 12:36 Dose: 80 mls/hr Documented by: [id number] Pantoprazole Sodium 40 mg/ (Syringe) 10 mls @ 5 mls/min IV BID RUSSELL Stop: 08/03/20 12:44 Last Admin: 07/04/20 12:56 Dose: 5 mls/min Documented by: [id number] Famotidine 20 mg/ Syringe 5 mls @ 2.5 mls/min IV BID RUSSELL Stop: 08/03/20 12:44 Last Admin: 07/04/20 12:56 Dose: 2.5 mls/min Documented by: [id number] Discontinued Medications Diphenhydramine HCl (Diphenhydramine Hcl 50 Mg/Ml Vial) 25 mg IV NOW STA Stop: 07/04/20 07:01 Last Admin: 07/04/20 07:15 Dose: 25 mg Documented by: [id number] Hydromorphone HCl (Hydromorphone Inj 1 Mg/Ml Syringe) 1 mg IV NOW STA Stop: 07/04/20 08:48 Last Admin: 07/04/20 08:52 Dose: 1 mg Documented by: [id number] Sodium Chloride (Nss 1000ml) 1,000 mls @ 999 mls/hr IV .[id number] ONE Stop: 07/04/20 08:00 Last Infusion: 07/04/20 08:35 Dose: 0 mls/hr Documented by: [id number] Admin: 07/04/20 07:15 Dose: 999 mls/hr Documented by: [id number] Magnesium Sulfate/Dextrose (Magnesium Sulfate / D5w) 1 gm in 100 mls @ 100 mls/hr IV Q1H RUSSELL Stop: 07/04/20 09:33 Last Infusion: 07/04/20 09:54 Dose: 0 mls/hr Documented by: [id number] Admin: 07/04/20 08:55 Dose: 100 mls/hr Documented by: [id number] Infusion: 07/04/20 08:53 Dose: 0 mls/hr Documented by: [id number] Admin: 07/04/20 07:43 Dose: 100 mls/hr Documented by: [id number] Fosaprepitant 150 mg/ Sodium (Chloride) 145 mls @ 300 mls/hr IV ONE ONE Stop: 07/04/20 11:27 Last Infusion: 07/04/20 11:46 Dose: 0 mls/hr Documented by: [id number] Admin: 07/04/20 11:17 Dose: 300 mls/hr Documented by: [id number] Ioversol (Optiray 320 125ml) 118 ml IV ONCE ONE Stop: 07/04/20 08:51 Last Admin: 07/04/20 08:51 Dose: 118 ml Documented by: [id number] Metoclopramide HCl (Metoclopramide Hcl Inj 5 Mg/Ml 2 Ml Vial) 5 mg IV ONE ONE Stop: 07/04/20 07:01 Last Admin: 07/04/20 07:15 Dose: 5 mg Documented by: [id number] Morphine Sulfate (Morphine Sulfate 4 Mg/Ml 1 Ml Carp\\Vial) 4 mg IV NOW STA Stop: 07/04/20 07:40 Last Admin: 07/04/20 08:05 Dose: 4 mg Documented by: [id number] Ondansetron HCl (Ondansetron Inj 2 Mg/Ml 2 Ml Vial) 4 mg IV NOW STA Stop: 07/04/20 06:22 Last Admin: 07/04/20 06:38 Dose: 4 mg Documented by: [id number] Ondansetron HCl (Ondansetron Inj 2 Mg/Ml 2 Ml Vial) Confirm Administered Dose 4 mg .ROUTE .STK-MED ONE Stop: 07/04/20 12:35 Last Admin: 07/04/20 12:40 Dose: 4 mg Documented by: [id number] Medical Decision Making Laboratory Data Result diagrams: 07/04/20 06:45 07/04/20 06:45 Lab Results 07/04/20 07/04/20 07/04/20 Range/Units 06:45 06:45 07:00 WBC 8.75 (4.8-10.8) K/uL RBC 4.40 (4.2-5.4) M/uL Hgb 11.8 L (12.0-16.0) g/dL Hct 36.5 L (37-47) % MCV 83.0 (80-100) fL MCH 26.8 (25-34) pg MCHC 32.3 (32-36) g/dL RDW Std Deviation 49.9 H (36.4-46.3) fL RDW Coeff of Ana M 16.4 H (11.5-14.5) % Plt Count 299 (130-400) K/uL MPV 9.4 (7.4-10.4) fL Immature Gran % (Auto) 0.1 % Neut % (Auto) 79.4 % Lymph % (Auto) 17.1 % Mathews % (Auto) 3.1 % Eos % (Auto) 0.2 % Baso % (Auto) 0.1 % Neut # (Auto) 6.94 H (1.4-6.5) K/uL Lymph # (Auto) 1.50 (1.2-3.4) K/uL Mathews # (Auto) 0.27 (0.11-0.59) K/uL Eos # (Auto) 0.02 (0-0.5) K/uL Baso # (Auto) 0.01 (0-0.2) K/uL Immature Gran # (Auto) 0.01 (0.00-0.02) K/uL Sodium 139 (136-145) mmol/L Potassium 3.8 (3.5-5.1) mmol/L Chloride 108 H (98-107) mmol/L Carbon Dioxide 20 L (21-32) mmol/L Anion Gap 11.0 (3-11) BUN 14 (7-18) mg/dl Creatinine 1.14 (0.6-1.2) mg/dl Est Cr Clr Drug Dosing Not Reportable Est GFR ( Amer) 59.7 Est GFR (Non-Af Amer) 51.5 BUN/Creatinine Ratio 11.8 (10-20) Glucose 130 H (70-99) mg/dl Calcium 9.4 (8.5-10.1) mg/dl Magnesium 1.5 L (1.8-2.4) mg/dl Total Bilirubin 0.6 (0.2-1) mg/dl AST 21 (15-37) U/L ALT 20 (12-78) U/L Alkaline Phosphatase 93 (45-117) U/L Total Protein 7.6 (6.4-8.2) gm/dl Albumin 3.6 (3.4-5.0) gm/dl Globulin 4.0 (2.5-4.0) gm/dl Albumin/Globulin Ratio 0.9 (0.9-2) Lipase 78 (73-393) U/L Urine Color Yellow Urine Appearance Clear (Clear) Urine pH 5.0 (4.5-7.5) Ur Specific [place] 1.014 (1.000-1.030) Urine Protein Negative (Negative) Urine Glucose (UA) Negative (Negative) Urine Ketones Trace H (Negative) Urine Blood Negative (Negative) Urine Nitrite Negative (Negative) Urine Bilirubin Negative (Negative) Urine Urobilinogen Negative (Negative) Ur Leukocyte Esterase Trace H (Negative) Urine WBC (Auto) 1-5 (0-5) /hpf Urine RBC (Auto) 0-4 (0-4) /hpf U Hyaline Cast (Auto) 1-5 (0-5) /lpf U Epithel Cells (Auto) 20-30 H (0-5) /lpf Urine Bacteria (Auto) Negative (Negative) Imaging Data Radiologist's Impression: CT ANGIOGRAM OF THE ABDOMEN AND PELVIS CLINICAL HISTORY: Generalized abdominal pain. COMPARISON STUDY: Abdominal CT dated 12/02/2019. TECHNIQUE: Following the IV administration of 118 cc of Optiray 320, CT angiogram of the abdomen and pelvis was performed from the lung bases the proximal femora. Images are reviewed in the axial, sagittal, and coronal planes. 3-D MIPS images are created and assessed. IV contrast was administered without complication. A dose lowering technique was utilized adhering to the principles of ALARA. CT DOSE: 465.60 mGy.cm FINDINGS: Lower chest: The heart is mildly enlarged and without pericardial effusion. The lung bases are clear. Liver: The contrast-enhanced liver is normal in size and heterogeneous in attenuation. Nodularity of the hepatic surface contour suggests early change of cirrhosis. There is no intrahepatic or ductal dilatation. Gallbladder: Surgically absent noting clips in the gallbladder fossa. Spleen: Normal in size and attenuation noting heterogeneous arterial phase enhan cement. Pancreas: Moderately atrophic and grossly unremarkable. Adrenal glands: A 2.2 cm low-attenuation right adrenal nodule is unchanged from previous. The left adrenal gland is normal in appearance. Kidneys: The contrast enhanced kidneys demonstrate mild cortical atrophy and are without hydronephrosis. The kidneys enhance symmetrically. Abdominal aorta and iliac arteries: The abdominal aorta is normal in course and caliber. No atherosclerotic plaque is identified. No dissection is seen. The iliac arteries are widely patent bilaterally. Major branches of the abdominal aorta: The celiac trunk, superior mesenteric, and inferior mesenteric arteries are widely patent. There is a replaced right hepatic artery which arises from the superior mesenteric artery. The splenic artery is patent. Single bilateral renal arteries are widely patent. Stomach and bowel: There is a moderate hiatal hernia. Postoperative change is seen involving the stomach. A gastric band is in place and located above the diaphragm. This is unchanged in position from previous. There is mild colonic diverticulosis without CT evidence of acute diverticulitis. No bowel obstruction is seen. There is a large duodenal diverticulum. The appendix is well- visualized and normal. Peritoneum: There is no intraperitoneal free air or abdominal ascites. Lymphadenopathy: None. Pelvic viscera: The bladder is normal as visualized. The uterus is surgically absent. No adnexal lesion is seen. Skeletal structures: The skeletal structures are osteopenic. There is mild lumbosacral spondylosis. No destructive bony lesions are seen. IMPRESSION: 1. Unremarkable CT angiogram of the abdominal aorta and its major branches. 2. There are no acute infectious or inflammatory findings in the abdomen or pelvis. 3. Postoperative change is again seen involving the stomach. This is similar in appearance to prior studies. 4. The appearance of the liver suggests early change of cirrhosis. 5. Additional findings as above. ACT 112: Negative or not required by law. Electronically signed by: Bayron Tillman M.D. 07/04/2020 9:21 AM Dictated: 07/04/20910 Transcribed: 07/04/20910 [facility] Narrative 0652: The patient was evaluated in room B6. A complete history and physical exam was performed. EMR reviewed. In the last 12 months patient has had 3 CT scans of her abdomen which have shown no obstruction or acute findings. 0809: On reassessment the patient is continued having dry heaves. She is reporting increasing abdominal pain. Mg 1.5. Will obtain CTA of abdomen given that the patient is having increasing abdominal pain. 0930: Vital signs stable. Patient still asking for nausea and pain medication. Patient will be admitted to the hospital by the [facility] service. Dr. thomas notified. Impression & Plan Hypomagnesemia, Intractable nausea and vomiting Discharge Plan Visit Data Chief Complaint: Nausea Stated Complaint: GASTROPARISIS ED Provider: Jl Craig Discharge Problem: Hypomagnesemia, Intractable nausea and vomiting Patient Disposition: Admitted As Inpatient Discharge Instructions Interventions: ED Discharge Assessment Last Done: 07/04/20 11:50
[2020-07-04] MEDS ORDERED: HYDROmorphone INJ 1 MG/ML SYRINGE IV STA (08:47)
[2020-07-04] MEDS ORDERED: OPTIRAY 320 125ml IV ONE (08:50)
--- NOTE | 2020-07-04 09:22 | CT Scan Report ---
CT ANGIOGRAM OF THE ABDOMEN AND PELVIS CLINICAL HISTORY: Generalized abdominal pain. COMPARISON STUDY: Abdominal CT dated 12/02/2019. TECHNIQUE: Following the IV administration of 118 cc of Optiray 320, CT angiogram of the abdomen and pelvis was performed from the lung bases the proximal femora. Images are reviewed in the axial, sagit nadege, and coronal planes. 3-D MIPS images are created and assessed. IV contrast was administered witho ut complication. A dose lowering technique was utilized adhering to the principles of ALARA. CT DOSE: 465.60 mGy.cm FINDINGS: Lower chest: The heart is mildly enlarged and without pericardial effusion. The lung bases are clear. Liver: The contrast-enhanced liver is normal in size and heterogeneous in attenuation. Nodularity of the hepatic surface contour suggests early change of cirrhosis. There is no intrahepatic or ductal di latation. Gallbladder: Surgically absent noting clips in the gallbladder fossa. Spleen: Normal in size and attenuation noting heterogeneous arterial phase enhancement. Pancreas: Moderately atrophic and grossly unremarkable. Adrenal glands: A 2.2 cm low-attenuation right adrenal nodule is unchanged from previous. The left ad renal gland is normal in appearance. Kidneys: The contrast enhanced kidneys demonstrate mild cortical atrophy and are without hydronephros is. The kidneys enhance symmetrically. Abdominal aorta and iliac arteries: The abdominal aorta is normal in course and caliber. No atheroscl erotic plaque is identified. No dissection is seen. The iliac arteries are widely patent bilaterally. Major branches of the abdominal aorta: The celiac trunk, superior mesenteric, and inferior mesenteric arteries are widely patent. There is a replaced right hepatic artery which arises from the superior mesenteric artery. The splenic artery is patent. Single bilateral renal arteries are widely patent. Stomach and bowel: There is a moderate hiatal hernia. Postoperative change is seen involving the stom ach. A gastric band is in place and located above the diaphragm. This is unchanged in position from p revious. There is mild colonic diverticulosis without CT evidence of acute diverticulitis. No bowel o bstruction is seen. There is a large duodenal diverticulum. The appendix is well-visualized and norm al. Peritoneum: There is no intraperitoneal free air or abdominal ascites. Lymphadenopathy: None. Pelvic viscera: The bladder is normal as visualized. The uterus is surgically absent. No adnexal lesi on is seen. Skeletal structures: The skeletal structures are osteopenic. There is mild lumbosacral spondylosis. N o destructive bony lesions are seen. IMPRESSION: 1. Unremarkable CT angiogram of the abdominal aorta and its major branches. 2. There are no acute infectious or inflammatory findings in the abdomen or pelvis. 3. Postoperative change is again seen involving the stomach. This is similar in appearance to prior s tudies. 4. The appearance of the liver suggests early change of cirrhosis. 5. Additional findings as above. ACT 112: Negative or not required by law. Electronically signed by: Bayron Tillman M.D. 07/04/2020 9:21 AM
[2020-07-04] MEDS ORDERED: FOSAPREPITANT DIMEGLUMINE 150 MG in SODIUM CHLORIDE 0.9% 145 ML IV ONE (10:59)
[2020-07-04] MEDS ORDERED: ACETAMINOPHEN 500 MG TAB PO PRN (12:24)
[2020-07-04] MEDS ORDERED: DICYCLOMINE HCL 10 MG CAP PO PRN (12:24)
[2020-07-04] MEDS ORDERED: SODIUM CHLORIDE 0.9% 1000ML 1,000 ML IV SCH (12:24)
[2020-07-04] MEDS: ONDANSETRON INJ 2 MG/ML 2 ML VIAL ONE ×2 (12:39→12:40)
[2020-07-04] MEDS ORDERED: MAGNESIUM SULFATE / D5W 1 GM/100 ML BAG IV ONE (12:45)
[2020-07-04] MEDS: PANTOprazole 40 MG in SYRINGE 0 ML IV SCH ×2 (12:56→20:04)
[2020-07-04] MEDS: FAMOTIDINE 20 MG in SYRINGE 3 ML IV SCH ×2 (12:56→20:04)
[2020-07-04] MEDS: PROMETHAZINE HCL 12.5 MG in SODIUM CHLORIDE 0.9% 50 ML IV PRN ×2 (14:16→22:30)
[2020-07-04] MEDS: METOCLOPRAMIDE HCL INJ 5 MG/ML 2 ML VIAL IV PRN (18:23)
--- NOTE | 2020-07-04 19:51 | History & Physical Report ---
Date of Service July 04, 2020 Assessment & Plan (1) Gastroparesis: (2) Nausea: 60 yo Female with a PMH of gastroparesis, IBS, HTN, GERD presented to the ER with abdominal pain associated with nausea and dry hives History of multiple admissions for intractable nausea, gastroparesis CT abd/pelvis showed no acute infectious or inflammatory findings in the abdomen or pelvis. The appearance of the liver suggests early change of cirrhosis. Abd xray showed no free air or evidence of bowel obstruction. Received IV morphine, dilaudid, zofran and reglan in the ER Will start on IVF Will give Emend 150mg IV x1 Will start on antiemetic with Reglan and Phenergan IV Will start on clear liquid diet and advanced as tolerated Electrolytes Imbalance Mg 1.5 on admission Replaced mg supplement Continue monitor electrolytes GERD (gastroesophageal reflux disease): Continue PPI and H2 lauren IV Hypothyroidism: Continue Levothyroxine HTN Continue metoprolol BP stable DVT px on SCDs CODE STATUS FULL CODE Disposition Will continue monitor closely Admission and Anticipated Discharge Date Admission Date: July 04, 2020 History of Present Illness Chief Complaint: Abdominal pain associated with nausea and dry hives Primary Care Provider: Jaleel Coppola MD 60 yo F with a PMH of gastroparesis, IBS, HTN, GERD, anemia presented to the ER with abdominal pain associated with nausea and dry hives. Pt said that for the past weeks she has been feeling nauseated, but last night her symptoms got worst. She said that she developed severe abdominal pain that is diffuse, constant with intense pain. Pt said that she does not have any appetite. She said that she has not been eaten. she said that she feels nauseated and dry hives. She said that she feels like she is going to vomit, but cannot. She said that she used to get monthly emend, but the last time she received emend was in November. Denies any chest pain, palpitation, dizziness and SOB Allergies Allergy/AdvReac Type Severity Reaction Status Date / Time adhesive Allergy Mild SKIN Verified 07/04/20 06:35 IRRITATION amoxicillin AdvReac Intermediate yeast Verified 07/04/20 06:35 infection lactose AdvReac Intermediate Gastrointestinal Verified 07/04/20 06:35 Upset NSAIDS (Non-Steroidal AdvReac Mild indegestion Verified 07/04/20 06:35 Anti-Inflamma rofecoxib AdvReac Mild indigestion Verified 07/04/20 06:35 scopolamine AdvReac Mild rash from Verified 07/04/20 06:35 patch Home Medications Home Medications Medication Instructions Recorded Confirmed Type multivitamin 1 tab PO QPM 09/09/18 07/04/20 History pantoprazole 40 mg PO BID #60 tab 12/10/19 07/04/20 Rx acetaminophen [Tylenol Extra 1,000 mg PO Q6H PRN #60 tab 12/16/19 07/04/20 Rx Strength] famotidine [Pepcid] 40 mg PO BID #60 tab 12/16/19 07/04/20 Rx levothyroxine [Synthroid] 88 mcg PO QAM #30 tab 12/16/19 07/04/20 Rx metoclopramide HCl 10 mg PO TIDM #90 tab 12/16/19 07/04/20 Rx metoprolol succinate 12.5 mg PO BID #30 tab 12/16/19 07/04/20 Rx dicyclomine 10 mg PO BID PRN 12/17/19 07/04/20 History promethazine 25 mg PO Q6H PRN 12/17/19 07/04/20 History Past Med/Surg History Medical History Anemia, iron deficiency Anxiety Asthma COPD (chronic obstructive pulmonary disease) Depression Diverticulosis Frequent PVCs Gastroparesis GERD (gastroesophageal reflux disease) H/O irritable bowel syndrome HTN (hypertension) Hypothyroidism Mitral regurgitation "moderate per echo 09/21/15" MRSA bacteremia Neuropathy Paroxysmal A-fib Pemphigus vulgaris Pernicious anemia Premature atrial contractions Tobacco abuse Surgical History History of bladder surgery History of laparoscopic partial gastrectomy History of pyloroplasty History of total hysterectomy Hx of cholecystectomy Hx of tonsillectomy S/P hysterectomy S/P laparoscopic sleeve gastrectomy S/P partial gastrectomy S/P repair of paraesophageal hernia "resulted in volvulus, required abdominal exploration" S/P tonsillectomy and adenoidectomy Family History Mother DM type 2 (diabetes mellitus, type 2) Coronary heart disease Social History Smoking Status: Heavy tobacco smoker Tobacco Type: Cigarettes Cigarettes Per Day: 20; Second Hand Exposure: No; Do You Dip or Chew Tobacco: No; Hx Alcohol Use: Yes Alcohol type: beer Alcohol Intake Frequency Comment: 3-4 beers/week Hx Substance Use: No Preferred Language: Somali Communication Ability: Effective Crushed Stone Grader Required: No Beliefs That Will Affect Care: None marital status: / Current Living Situation: Family Current Living Situation Comment: Lives with brother Other Information That Helps Us Care for You: No Feels Safe at Home: Yes Assistive Devices: Glasses Review of Systems Review of Systems: All systems reviewed & are unremarkable except as noted in HPI & below Physical Exam Physical Exam: General- No acute distress Head- atraumatic Eyes- PERRL, EOMI, ENT- oropharynx clear Neck- supple, no JVD Lungs- clear to auscultation Heart- regular rhythm; no murmur Abdomen- normal bowel sounds, +tenderness Extremities- no calf tenderness Neuro- alert, oriented x 3; PERRL, EOMI; no facial palsy; no dysarthria Skin- warm & dry Results & Data Results & Data ([facility]) Vital Signs (Past 12 Hours) Vital Signs Temp Pulse Pulse Resp BP BP Pulse Ox 07/04/20 15:30 36.8 C 68 18 123/84 95 07/04/20 11:55 128/100 07/04/20 11:45 80 17 92 07/04/20 11:30 86 19 92 07/04/20 11:15 81 14 93 07/04/20 11:00 81 20 156/116 H 93 07/04/20 10:45 79 17 89 L 07/04/20 10:30 81 16 98 07/04/20 10:15 82 18 97 07/04/20 10:00 78 15 141/95 H 98 07/04/20 09:56 85 L 07/04/20 09:45 84 17 98 07/04/20 09:30 80 19 99 07/04/20 09:15 91 H 19 97 07/04/20 09:10 83 15 87 L 07/04/20 09:09 82 18 135/91 95 07/04/20 08:45 84 16 98 07/04/20 08:30 86 16 88 L 07/04/20 08:19 81 28 H 143/100 H 97 07/04/20 08:15 82 26 H 96 07/04/20 08:05 [address] ANGIOGRAM OF THE ABDOMEN AND PELVIS CLINICAL HISTORY: Generalized abdominal pain. COMPARISON STUDY: Abdominal CT dated 12/02/2019. TECHNIQUE: Following the IV administration of 118 cc of Optiray 320, CT angiogram of the abdomen and pelvis was performed from the lung bases the proximal femora. Images are reviewed in the axial, sagittal, and coronal planes. 3-D MIPS images are created and assessed. IV contrast was administered without complication. A dose lowering technique was utilized adhering to the principles of ALARA. CT DOSE: 465.60 mGy.cm FINDINGS: Lower chest: The heart is mildly enlarged and without pericardial effusion. The lung bases are clear. Liver: The contrast-enhanced liver is normal in size and heterogeneous in attenuation. Nodularity of the hepatic surface contour suggests early change of cirrhosis. There is no intrahepatic or ductal dilatation. Gallbladder: Surgically absent noting clips in the gallbladder fossa. Spleen: Normal in size and attenuation noting heterogeneous arterial phase enhancement. Pancreas: Moderately atrophic and grossly unremarkable. Adrenal glands: A 2.2 cm low-attenuation right adrenal nodule is unchanged from previous. The left adrenal gland is normal in appearance. Kidneys: The contrast enhanced kidneys demonstrate mild cortical atrophy and are without hydronephrosis. The kidneys enhance symmetrically. Abdominal aorta and iliac arteries: The abdominal aorta is normal in course and caliber. No atherosclerotic plaque is identified. No dissection is seen. The iliac arteries are widely patent bilaterally. Major branches of the abdominal aorta: The celiac trunk, superior mesenteric, and inferior mesenteric arteries are widely patent. There is a replaced right hepatic artery which arises from the superior mesenteric artery. The splenic artery is patent. Single bilateral renal arteries are widely patent. Stomach and bowel: There is a moderate hiatal hernia. Postoperative change is seen involving the stomach. A gastric band is in place and located above the diaphragm. This is unchanged in position from previous. There is mild colonic diverticulosis without CT evidence of acute diverticulitis. No bowel obstruction is seen. There is a large duodenal diverticulum. The appendix is well- visualized and normal. Peritoneum: There is no intraperitoneal free air or abdominal ascites. Lymphadenopathy: None. Pelvic viscera: The bladder is normal as visualized. The uterus is surgically absent. No adnexal lesion is seen. Skeletal structures: The skeletal structures are osteopenic. There is mild lumbosacral spondylosis. No destructive bony lesions are seen. IMPRESSION: 1. Unremarkable CT angiogram of the abdominal aorta and its major branches. 2. There are no acute infectious or inflammatory findings in the abdomen or pelvis. 3. Postoperative change is again seen involving the stomach. This is similar in appearance to prior studies. 4. The appearance of the liver suggests early change of cirrhosis. 5. Additional findings as above. ACT 112: Negative or not required by law. Electronically signed by: Bayron Tillman M.D. 07/04/2020 9:21 AM Dictated: 07/04/20910 Transcribed: 07/04/20910 PA CHEST RADIOGRAPH AND UPRIGHT AND SUPINE AP RADIOGRAPHS OF THE ABDOMEN CLINICAL HISTORY: Vomiting. COMPARISON STUDY: Chest radiograph and abdominal series December 17, 2019. FINDINGS: Right internal jugular [id number] is in place. Hyperdense material projecting over the lower mediastinum is unchanged. Cardiac size is normal. Slight blunting of the right costophrenic angle is chronic. There is no consolidation. No evidence for pulmonary edema. No free air is identified. The bowel gas pattern is normal. IMPRESSION: 1. No free air or evidence of bowel obstruction. 2. No acute cardiopulmonary findings. No change in appearance of the chest. ACT 112: Negative or not required by law. Electronically signed by: Alex Moy M.D. 07/04/2020 7:58 AM Dictated: 07/04/20 0757 Transcribed: 07/04/20756
[2020-07-04] MEDS ORDERED: FAMOTIDINE 40 MG TABLET PO SCH (21:00)
[2020-07-04] MEDS ORDERED: PANTOprazole 40 MG TAB PO SCH (21:00)
[2020-07-04] MEDS ORDERED: MULTIVITAMIN TAB PO SCH (21:00)
[2020-07-04] MEDS: METOPROLOL SUCC 25MG EXT REL TAB PO SCH (21:05)
[2020-07-05] MEDS: METOCLOPRAMIDE HCL INJ 5 MG/ML 2 ML VIAL IV PRN (02:33)
[2020-07-05] MEDS ORDERED: LEVOTHYROXINE SODIUM 88 MCG TABLET PO SCH (06:30)
[2020-07-05] MEDS: FAMOTIDINE 20 MG in SYRINGE 3 ML IV SCH (08:48)
[2020-07-05] MEDS: METOPROLOL SUCC 25MG EXT REL TAB PO SCH (08:48)
[2020-07-05] MEDS: PANTOprazole 40 MG in SYRINGE 0 ML IV SCH (08:48)
[2020-07-05] MEDS ORDERED: HEPARIN 100 UNIT/ML 5ML FLUSH FLUSH PRN (08:53)
[2020-07-05] MEDS ORDERED: HEPARIN 100 UNIT/ML 5ML FLUSH ONE (08:57)
[2020-07-05 11:15] LABS: BUN Creatinine Ratio 11.3 (10-20); Calcium 7.9 mg/dl (8.5-10.1); Creatinine Clr Calc Pharmacy 62.6 ml/min; Est GFR (African American) 72.5; Est GFR (Non-African American) 62.6; Magnesium 2.4 mg/dl (1.8-2.4); Potassium 3.3 mmol/L (3.5-5.1)
[2020-07-05] MEDS ORDERED: POTASSIUM CHLORIDE 20 MEQ TABCR PO STA (11:51)
--- NOTE | 2020-07-05 17:59 | Hospitalist Progress Note ---
Date of Service July 05, 2020 Assessment & Plan (1) Gastroparesis: (2) Nausea: 60 yo Female with a PMH of gastroparesis, IBS, HTN, GERD presented to the ER with abdominal pain associated with nausea and dry hives History of multiple admissions for intractable nausea, gastroparesis CT abd/pelvis showed no acute infectious or inflammatory findings in the abdomen or pelvis. The appearance of the liver suggests early change of cirrhosis. Abd xray showed no free air or evidence of bowel obstruction. Received IV morphine, dilaudid, zofran and reglan in the ER Received Emend yesterday Continue antiemetic with Reglan and Phenergan IV Tolerated full liquid diet and advanced as tolerated Clinically improved significantly Follow up with Gastro outpatient to arrange for emend injection Electrolytes Imbalance Mg 1.5 on admission Mg 2.4 and K 3.3 Potassium supplement Continue monitor electrolytes GERD (gastroesophageal reflux disease): Continue PPI and H2 lauren IV Hypothyroidism: Continue Levothyroxine HTN Continue metoprolol BP stable DVT px on SCDs CODE STATUS FULL CODE Disposition Will discharge home today Admission and Anticipated Discharge Date Admission Date: July 04, 2020 Subjective Pt was seen and examined Lying in bed with no distress Pt said that she feels much better She said that she does not feel any nausea or abdominal pain Diet advanced and tolerated Denies any chest pain, palpitation, dizziness and SOB Physical Exam Physical Exam: General- No acute distress Head- atraumatic Eyes- PERRL, EOMI, ENT- oropharynx clear Neck- supple, no JVD Lungs- clear to auscultation Heart- regular rhythm; no murmur Abdomen- normal bowel sounds, non tender Extremities- no calf tenderness Neuro- alert, oriented x 3; PERRL, EOMI; no facial palsy; no dysarthria Skin- warm & dry Results & Data Results & Data ([facility]) Vital Signs (Past 12 Hours) Vital Signs Temp Pulse Resp BP BP Pulse Ox 07/05/20 16:04 111/78 07/05/20 15:15 36.6 C 78 20 96/67 L 96 07/05/20 07:37 36.8 C 63 16 110/73 98
--- NOTE | 2020-07-09 20:50 | Discharge Summary ---
Date of Service July 05, 2020 Admission HPI Per Admitting Provider 60 yo F with a PMH of gastroparesis, IBS, HTN, GERD, anemia presented to the ER with abdominal pain associated with nausea and dry hives. Pt said that for the past weeks she has been feeling nauseated, but last night her symptoms got worst. She said that she developed severe abdominal pain that is diffuse, constant with intense pain. Pt said that she does not have any appetite. She said that she has not been eaten. she said that she feels nauseated and dry hives. She said that she feels like she is going to vomit, but cannot. She said that she used to get monthly emend, but the last time she received emend was in November. Denies any chest pain, palpitation, dizziness and SOB Admission Exam Per Admitting Provider General- No acute distress Head- atraumatic Eyes- PERRL, EOMI, ENT- oropharynx clear Neck- supple, no JVD Lungs- clear to auscultation Heart- regular rhythm; no murmur Abdomen- normal bowel sounds, +tenderness Extremities- no calf tenderness Neuro- alert, oriented x 3; PERRL, EOMI; no facial palsy; no dysarthria Skin- warm & dry Principal Diagnosis Intractable nausea Gastroparesis Hypokalemia Hypomagnesemia Discharge Exam General- No acute distress Head- atraumatic Eyes- PERRL, EOMI, ENT- oropharynx clear Neck- supple, no JVD Lungs- clear to auscultation Heart- regular rhythm; no murmur Abdomen- normal bowel sounds, non tender Extremities- no calf tenderness Neuro- alert, oriented x 3; PERRL, EOMI; no facial palsy; no dysarthria Skin- warm & dry Discharge Data Allergies Allergy/AdvReac Type Severity Reaction Status Date / Time adhesive Allergy Mild SKIN Verified 07/04/20 06:35 IRRITATION amoxicillin AdvReac Intermediate yeast Verified 07/04/20 06:35 infection lactose AdvReac Intermediate Gastrointestinal Verified 07/04/20 06:35 Upset NSAIDS (Non-Steroidal AdvReac Mild indegestion Verified 07/04/20 06:35 Anti-Inflamma rofecoxib AdvReac Mild indigestion Verified 07/04/20 06:35 scopolamine AdvReac Mild rash from Verified 07/04/20 06:35 patch Consultations 07/04/20 09:32 ED Decision to Admit Stat Ordered Studies 07/04/20 08:07 CT angio abdomen pelvis w con Stat CT ANGIOGRAM OF THE ABDOMEN AND PELVIS CLINICAL HISTORY: Generalized abdominal pain. COMPARISON STUDY: Abdominal CT dated 12/02/2019. TECHNIQUE: Following the IV administration of 118 cc of Optiray 320, CT angiogram of the abdomen and pelvis was performed from the lung bases the pr oximal femora. Images are reviewed in the axial, sagittal, and coronal planes. 3-D MIPS images are created and assessed. IV contrast was administered without complication. A dose lowering technique was utilized adhering to the principles of ALARA. CT DOSE: 465.60 mGy.cm FINDINGS: Lower chest: The heart is mildly enlarged and without pericardial effusion. The lung bases are clear. Liver: The contrast-enhanced liver is normal in size and heterogeneous in attenuation. Nodularity of the hepatic surface contour suggests early change of cirrhosis. There is no intrahepatic or ductal dilatation. Gallbladder: Surgically absent noting clips in the gallbladder fossa. Spleen: Normal in size and attenuation noting heterogeneous arterial phase enhancement. Pancreas: Moderately atrophic and grossly unremarkable. Adrenal glands: A 2.2 cm low-attenuation right adrenal nodule is unchanged from previous. The left adrenal gland is normal in appearance. Kidneys: The contrast enhanced kidneys demonstrate mild cortical atrophy and are without hydronephrosis. The kidneys enhance symmetrically. Abdominal aorta and iliac arteries: The abdominal aorta is normal in course and caliber. No atherosclerotic plaque is identified. No dissection is seen. The iliac arteries are widely patent bilaterally. Major branches of the abdominal aorta: The celiac trunk, superior mesenteric, and inferior mesenteric arteries are widely patent. There is a replaced right hepatic artery which arises from the superior mesenteric artery. The splenic artery is patent. Single bilateral renal arteries are widely patent. Stomach and bowel: There is a moderate hiatal hernia. Postoperative change is seen involving the stomach. A gastric band is in place and located above the diaphragm. This is unchanged in position from previous. There is mild colonic diverticulosis without CT evidence of acute diverticulitis. No bowel obstruction is seen. There is a large duodenal diverticulum. The appendix is well-visualized and normal. Peritoneum: There is no intraperitoneal free air or abdominal ascites. Lymphadenopathy: None. Pelvic viscera: The bladder is normal as visualized. The uterus is surgically absent. No adnexal lesion is seen. Skeletal structures: The skeletal structures are osteopenic. There is mild lumbosacral spondylosis. No destructive bony lesions are seen. IMPRESSION: 1. Unremarkable CT angiogram of the abdominal aorta and its major branches. 2. There are no acute infectious or inflammatory findings in the abdomen or pelvis. 3. Postoperative change is again seen involving the stomach. This is similar in appearance to prior studies. 4. The appearance of the liver suggests early change of cirrhosis. 5. Additional findings as above. ACT 112: Negative or not required by law. Electronically signed by: Bayron Tillman M.D. 07/04/2020 9:21 AM Dictated: 07/04/20910 Transcribed: 07/04/20910 PA CHEST RADIOGRAPH AND UPRIGHT AND SUPINE AP RADIOGRAPHS OF THE ABDOMEN CLINICAL HISTORY: Vomiting. COMPARISON STUDY: Chest radiograph and abdominal series December 17, 2019. FINDINGS: Right internal jugular [id number] is in place. Hyperdense material projecting over the lower mediastinum is unchanged. Cardiac size is normal. Slight blunting of the right costophrenic angle is chronic. There is no consolidation. No evidence for pulmonary edema. No free air is identified. The bowel gas pattern is normal. IMPRESSION: 1. No free air or evidence of bowel obstruction. 2. No acute cardiopulmonary findings. No change in appearance of the chest. ACT 112: Negative or not required by law. Electronically signed by: Alex Moy M.D. 07/04/2020 7:58 AM Dictated: 07/04/20756 Transcribed: 07/04/20756 Hospital Course (1) Gastroparesis: (2) Nausea: 60 yo Female with a PMH of gastroparesis, IBS, HTN, GERD presented to the ER with abdominal pain associated with nausea and dry hives History of multiple admissions for intractable nausea, gastroparesis CT abd/pelvis showed no acute infectious or inflammatory findings in the abdomen or pelvis. The appearance of the liver suggests early change of cirrhosis. Abd xray showed no free air or evidence of bowel obstruction. Received IV morphine, dilaudid, zofran and reglan in the ER Received Emend yesterday Continue antiemetic with Reglan and Phenergan IV Tolerated full liquid diet and advanced as tolerated Clinically improved significantly Follow up with Gastro outpatient to arrange for emend injection Electrolytes Imbalance Mg 1.5 on admission Mg 2.4 and K 3.3 Potassium supplement Continue monitor electrolytes GERD (gastroesophageal reflux disease): Continue PPI and H2 lauren IV Hypothyroidism: Continue Levothyroxine HTN Continue metoprolol BP stable DVT px on SCDs CODE STATUS FULL CODE Disposition Will discharge home today Total Time Total Time Spent Total Time Spent (In Minutes): 35 minutes Total Time Includes: Examination of the Patient, Discharge Planning, Medication Reconciliation, Communication With Other Providers and Other Discharge Plan Discharge Items Patient Disposition: Home - Self-Care Reason For Visit: ABD PAIN/N/V Discharge Diagnosis: Intractable nausea Gastroparesis Hypokalemia Hypomagnesemia Activity: Resume your previous activity Non-emergency contact: Primary Care Provider Call non-emergency contact if: you have any medication questions Follow-up/Referrals: Jaleel Coppola MD [Primary Care Provider] - (Date & Time 07/09/2020 1:40 PM Provider Thom Kwon MD Department Internal Medicine [facility] ) Diet: Heart Healthy Addtl Attending Provider Instructions: Follow up with your primary care Dr. Coppola within 1 week (Please call to schedule for the follow up appointment) Follow up with gastroenterology to arrange for the Emend injection for the nausea (please call to schedule for the follow up appointment) Check BMP and magnesium in 1 week to monitor your electrolytes You came to the hospital for persistent nausea and abdominal pain. You were evaluated and found to have multiple electrolyte abnormalities with low potassium, low magnesium. These were replenished. Your symptoms have improved. Pending Studies at Discharge: No Stand-Alone Forms: [facility] [employer] Medications and DC Order Prescriptions: Continued multivitamin Tablet 1 tab PO QPM RF: 0 promethazine 25 mg tablet 25 mg PO Q6H PRN (Reason: Nausea) RF: 0 dicyclomine 10 mg capsule 10 mg PO BID PRN (Reason: Abdominal Discomfort) RF: 0 pantoprazole 40 mg Tablet,Delayed Release (Dr/Ec) 40 mg PO BID Qty: 60 RF: 0 famotidine [Pepcid] 40 mg Tablet 40 mg PO BID Qty: 60 RF: 0 acetaminophen [Tylenol Extra Strength] 500 mg Tablet 1,000 mg PO Q6H PRN (Reason: Fever Or Pain) Qty: 60 RF: 0 levothyroxine [Synthroid] 88 mcg tablet 88 mcg PO QAM Qty: 30 RF: 0 metoprolol succinate 25 mg tablet extended release 24 hr 12.5 mg PO BID Qty: 30 RF: 1 metoclopramide HCl 10 mg tablet 10 mg PO TIDM Qty: 90 RF: 0 Discharge Orders: Discharge Order (Routine); Ordered 07/05/20 Ordered By: Nena Aguilar Admission Data Admit Date/Time: 07/04/20 10:58 Attending Provider: Nena Aguilar Admit Provider: Nena Aguilar Primary Care Provider: Jaleel Coppola Other Providers: Nena Aguilar Other Interventions: Discharge Summary Assessment (RN) Last Done: 07/05/20 18:26
== END 2020-07-05 19:53 | disposition home or self-care (01) ==
LOC: ED 05:46 → 3E 05:46

== ENCOUNTER 2020-10-10 13:38 | Observation (INO) ==
[2020-10-10] MEDS ORDERED: PROCHLORPERAZINE 2 ML IV ONE (14:07)
[2020-10-10] MEDS ORDERED: ACETAMINOPHEN 1,000 MG/100 ML VIAL IV STA (14:07)
[2020-10-10] MEDS ORDERED: diphenhydrAMINE 50 MG/ML VIAL IV STA (14:07)
[2020-10-10] MEDS ORDERED: MAGNESIUM SULFATE / D5W 1 GM/100 ML BAG IV STA (14:08)
[2020-10-10 14:24] LABS: Basophils # (auto) 0.02 K/uL (0-0.2); Basophils % (auto) 0.3 %; Eosinophils # (auto) 0.09 K/uL (0-0.5); Eosinophils % (auto) 1.4 %; Hematocrit (blood only) 33.4 % (37-47); Hemoglobin 10.9 g/dL (12.0-16.0); Lymphocytes # (auto) 2.26 K/uL (1.2-3.4); Lymphocytes % (auto) 35.9 %; Mean Corpuscular Hemoglobin 26.3 pg (25-34); Mean Corpuscular Hgb Conc 32.6 g/dL (32-36); Mean Corpuscular Volume 80.5 fL (80-100); Monocytes # (auto) 0.39 K/uL (0.11-0.59); Monocytes % (auto) 6.2 %; Neutrophils # (auto) 3.53 K/uL (1.4-6.5); Neutrophils % (auto) 56.2 %; Platelet Count 377 K/uL (130-400); RDW Coefficient of Variation 16.2 % (11.5-14.5); RDW Standard Deviation 47.6 fL (36.4-46.3); Red Blood Count 4.15 M/uL (4.2-5.4); White Blood Count 6.29 K/uL (4.8-10.8)
[2020-10-10 14:32] LABS: Alanine Aminotransferase 21 U/L (12-78); Albumin Level 3.3 gm/dl (3.4-5.0); Aspartate Aminotransferase 13 U/L (15-37); BUN Creatinine Ratio 15.5 (10-20); Blood Urea Nitrogen 13 mg/dl (7-18); Calcium 8.7 mg/dl (8.5-10.1); Carbon Dioxide 24 mmol/L (21-32); Chloride 109 mmol/L (98-107); Est GFR (African American) 85.1; Est GFR (Non-African American) 73.4; Glucose 96 mg/dl (70-99); Lipase 134 U/L (73-393)
[2020-10-10 14:33] LABS: Partial Thromboplastin Ratio 0.8; Partial Thromboplastin Time 23.1 Seconds (21.0-31.0); Prothrombin Time 10.5 Seconds (9.0-12.0)
[2020-10-10 14:37] LABS: Alkaline Phosphatase 90 U/L (45-117); Bilirubin,Total 0.4 mg/dl (0.2-1); Creatine Kinase 60 U/L (26-192); Globulin 3.4 gm/dl (2.5-4.0); Total Protein 6.7 gm/dl (6.4-8.2); Troponin I < 0.015 ng/ml (0-0.045)
--- NOTE | 2020-10-10 15:01 | XRay Report ---
XR chest 1V portable HISTORY: Atypical Chest Pain COMPARISON: Chest 08/31/2020. FINDINGS: No pneumothorax. Trace bilateral pleural effusions, unchanged. The heart remains mildly enl arged. No pneumothorax. No new focal lung consolidations to suggest pneumonia. No evidence for pulmon michael edema. Right subclavian Port-A-Cath terminates in the SVC. Dense focus of contrast is again noted at the gastroesophageal junction. IMPRESSION: 1. Stable mild cardiomegaly and trace bilateral pleural effusions. 2. Otherwise, no acute process within the chest. ACT 112: Negative or not required by law. Electronically signed by: Radhames Jackson M.D. 10/10/2020 2:59 PM
[2020-10-10] MEDS ORDERED: OPTIRAY 320 125ml IV ONE (15:24)
--- NOTE | 2020-10-10 15:45 | CT Scan Report ---
CHEST CTA for PULMONARY ARTERIES CT DOSE: 1303.93 mGy.cm HISTORY: Atypical Chest Pain, eval for PE TECHNIQUE: Multiaxial CT images of the chest were performed following the intravenous administration of contrast to evaluate the pulmonary arteries. Maximal intensity projection images were also obtaine d. A dose lowering technique was utilized adhering to the principles of ALARA. COMPARISON STUDY: Chest CTA 06/20/2012. FINDINGS: Stable 2.2 cm hypodense right adrenal gland nodule consistent with a benign adenoma. The vi sualized liver and spleen are unremarkable. Postoperative changes noted at the proximal stomach and g astroesophageal junction. Dense calcification versus old extraluminal contrast at the gastroesophagea l junction remains unchanged. Right subclavian Port-A-Cath terminates in the distal SVC. The heart is mildly enlarged. No pleural or pericardial effusions. No mediastinal or hilar lymphadenopathy. Mildl y tortuous descending thoracic aorta. There is a normal caliber thoracic aorta with no evidence for d issection. No filling defects within the pulmonary arteries to suggest pulmonary embolus. No suspicio us lytic or blastic osseous lesions. The central airways are patent. No pneumothorax. There are few s mall scattered patchy groundglass densities seen within the bilateral mid to lower lung zones. This f avors a viral pneumonia. IMPRESSION: 1. No evidence for pulmonary embolus. 2. There are few small scattered patchy groundglass densities seen within the bilateral mid to lower lung zones. This favors a viral pneumonia. ACT 112: Negative or not required by law. Electronically signed by: Radhames Jackson M.D. 10/10/2020 3:43 PM
--- NOTE | 2020-10-10 15:50 | CT Scan Report ---
HEAD CT NONCONTRAST CT DOSE: HISTORY: Pt c/o headache TECHNIQUE: Multiaxial CT images of the head were performed without the use of intravenous contrast. A utomated exposure control was utilized for this study. A dose lowering technique was utilized adheri ng to the principles of ALARA. Comparison: Head CT 02/09/2016. Findings: The paranasal sinuses and mastoid air cells are clear. The calvarium and skull base are int act. The ventricles and sulci are within normal limits. There is no mass, hematoma, midline shift, or acute infarct. Impression: No acute intracranial abnormality. ACT 112: Negative or not required by law. Electronically signed by: Radhames Jackson M.D. 10/10/2020 3:48 PM
[2020-10-10 15:56] LABS: D Dimer 460 ug/L FEU (0-500)
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
[2020-10-10 16:46] LABS: C Reactive Protein < 0.29 mg/dl (0-0.29); Ferritin 7.4 ng/ml (8-388); NT Pro B Type Natriuretic Pept 356 pg/ml (0-900); Troponin I < 0.015 ng/ml (0-0.045)
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
[2020-10-10] MEDS ORDERED: POLYETHYLENE (MIRALAX) 17 GM PACK PO PRN (17:56)
[2020-10-10] MEDS ORDERED: ACETAMINOPHEN 325 MG TAB PO PRN (17:56)
[2020-10-10] MEDS ORDERED: DICYCLOMINE HCL 10 MG CAP PO PRN (17:56)
[2020-10-10] MEDS ORDERED: HEPARIN 100 UNIT/ML 5ML FLUSH ONE (18:06)
--- NOTE | 2020-10-10 18:22 | Hospitalist Progress Note ---
Date of Service October 10, 2020 Assessment & Plan Admission and Anticipated Discharge Date Admission Date: October 10, 2020 Subjective ff up for Results & Data Results & Data ([facility]) Vital Signs (Past 12 Hours) Vital Signs Temp Pulse Pulse Resp BP BP BP 10/10/20 17:56 36.8 C 75 18 165/107 H 153/111 H 10/10/20 17:13 73 16 146/101 H 10/10/20 17:00 75 18 155/111 H 10/10/20 16:33 68 20 158/115 H 10/10/20 15:35 78 19 10/10/20 14:30 74 17 135/92 10/10/20 14:00 73 22 134/98 10/10/20 13:42 37.1 C 73 18 147/101 H Pulse Ox 10/10/20 17:56 97 10/10/20 17:13 98 10/10/20 17:00 99 10/10/20 16:33 98 10/10/20 15:35 99 10/10/20 14:30 99 10/10/20 14:00 97 10/10/20 13:42 99
[2020-10-10] MEDS ORDERED: METOPROLOL SUCC 25MG EXT REL TAB PO STA (18:23)
--- NOTE | 2020-10-10 18:24 | Communication Note ---
Date of Service: October 10, 2020 Attending Addendum: care coordinated with ALYSHA Payton please refer to her notes for full details, I agree with her notes patient seen and examined, records reviewed by myself as well on exam, patient seen resting in bed, comfortable, not in distress chest pain free denies headache, dizziness, palpitations, nausea/vomiting, abdominal pain no pain no other symptoms VS noted and reviewed oriented x 3, accessory muscle use normal rate, regular rhythm, no murmurs clear breath sounds bilaterally non distended, soft, nontender no bipedal edema, erythema, warmth no neuro deficits WBC 6.29 Hg 10.9 Crea 0.85 ASSESSMENT AND PLAN> CHEST PAIN r/o ACS trend troponins, EKG echo r/o Arrhythmia Telemetry monitoring SYNCOPE likely Vasovagal continue to monitor closely other diagnoses and plan of care as per ALYSHA Maher MD
[2020-10-10] MEDS: SUCRALFATE 1 GM/10 ML UDC PO SCH ×2 (19:39→23:45)
[2020-10-10] MEDS: PROMETHAZINE HCL 25 MG TAB PO PRN (19:58)
[2020-10-10] MEDS: ENOXAPARIN INJ 40 MG/0.4 ML SYR SQ SCH (19:59)
[2020-10-10] MEDS ORDERED: METOPROLOL SUCC 25MG EXT REL TAB PO SCH (21:00)
[2020-10-10] MEDS: METOCLOPRAMIDE HCL 10 MG TABLET PO SCH (21:06)
[2020-10-10] MEDS: PANTOprazole 40 MG TAB PO SCH (21:06)
[2020-10-10] MEDS: MULTIVITAMIN TAB PO SCH (21:06)
[2020-10-10 21:25] LABS: Potassium 3.9 mmol/L (3.5-5.1)
[2020-10-10 21:27] LABS: Sodium 141 mmol/L (136-145)
[2020-10-10] MEDS ORDERED: LORATADINE 10 MG TAB PO ONE (21:32)
[2020-10-10 21:43] LABS: Appearance Urine Clear (Clear); Bacteria Urine Automated Negative (Negative); Bilirubin Urine Negative (Negative); Blood Urine Negative (Negative); Cast Urine Automated 0 /lpf (0-5); Color Urine Yellow; Glucose Urine UA Negative (Negative); Ketones Urine Negative (Negative); Leukocyte Esterase Urine Trace (Negative); Nitrite Urine Negative (Negative); Protein Urine Negative (Negative); RBC Urine Automated 0-4 /hpf (0-4); Specific Gravity Urine 1.044 (1.000-1.030); Urobilinogen Urine Negative (Negative)
[2020-10-11] MEDS: MELATONIN 3 MG TAB PO PRN (00:44)
[2020-10-11] MEDS: PROMETHAZINE HCL 25 MG TAB PO PRN (05:29)
[2020-10-11] MEDS: SUCRALFATE 1 GM/10 ML UDC PO SCH ×4 (05:29→23:36)
[2020-10-11] MEDS: LEVOTHYROXINE SODIUM 88 MCG TABLET PO SCH (05:30)
[2020-10-11] MEDS ORDERED: hydrOXYzine HCl 10 MG TAB PO STA ×2 (05:31→21:36)
--- NOTE | 2020-10-11 06:16 | Electrocardiogram Report ---
Test Reason : Blood Pressure : / mmHG Vent. Rate : 072 BPM Atrial Rate : 072 BPM P-R Int : 144 ms QRS Dur : 084 ms QT Int : 434 ms P-R-T Axes : 042 006 021 degrees QTc Int : 475 ms Poor data quality, interpretation may be adversely affected Normal sinus rhythm Normal ECG When compared with ECG of 03-SEP-2020 07:34, Premature atrial complexes are no longer Present T wave inversion less evident in Inferior leads T wave inversion no longer evident in Anterolateral leads QT has shortened Confirmed by Chinmay Russo ([id number]) on 10/11/2020 6:16:05 AM Referred By: Confirmed By:Chinmay Russo
--- NOTE | 2020-10-11 06:17 | Electrocardiogram Report ---
Test Reason : Blood Pressure : / mmHG Vent. Rate : 067 BPM Atrial Rate : 067 BPM P-R Int : 156 ms QRS Dur : 086 ms QT Int : 468 ms P-R-T Axes : 028 -08 002 degrees QTc Int : 494 ms Normal sinus rhythm Voltage criteria for left ventricular hypertrophy Prolonged QT Nonspecific T wave abnormality Abnormal ECG When compared with ECG of 10-OCT-2020 13:42, Nonspecific T wave abnormality now evident in Anterior leads Confirmed by Chinmay Russo ([id number]) on 10/11/2020 6:17:08 AM Referred By: REFERRED SELF Confirmed By:Chinmay Russo
[2020-10-11] MEDS: METOCLOPRAMIDE HCL 10 MG TABLET PO SCH ×3 (07:43→20:06)
[2020-10-11] MEDS: PANTOprazole 40 MG TAB PO SCH ×2 (07:43→20:06)
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
[2020-10-11] MEDS ORDERED: METOPROLOL SUCC 25MG EXT REL TAB PO SCH ×2 (09:00→21:00)
[2020-10-11 09:15] LABS: Basophils # (auto) 0.03 K/uL (0-0.2); Basophils % (auto) 0.5 %; Eosinophils # (auto) 0.15 K/uL (0-0.5); Eosinophils % (auto) 2.6 %; Hematocrit (blood only) 33.8 % (37-47); Hemoglobin 11.1 g/dL (12.0-16.0); Immature Granulocytes # (auto) 0.01 K/uL (0.00-0.02); Immature Granulocytes % (auto) 0.2 %; Lymphocytes # (auto) 1.87 K/uL (1.2-3.4); Lymphocytes % (auto) 32.6 %; Mean Corpuscular Hemoglobin 26.9 pg (25-34); Mean Corpuscular Hgb Conc 32.8 g/dL (32-36); Mean Corpuscular Volume 81.8 fL (80-100); Mean Platelet Volume 9.6 fL (7.4-10.4); Neutrophils # (auto) 3.28 K/uL (1.4-6.5); Neutrophils % (auto) 57.1 %; Platelet Count 343 K/uL (130-400); RDW Coefficient of Variation 16.2 % (11.5-14.5); Red Blood Count 4.13 M/uL (4.2-5.4); White Blood Count 5.74 K/uL (4.8-10.8)
[2020-10-11 09:34] LABS: Alanine Aminotransferase 21 U/L (12-78); Albumin Level 3.1 gm/dl (3.4-5.0); Aspartate Aminotransferase 15 U/L (15-37); Blood Urea Nitrogen 14 mg/dl (7-18); Calcium 8.8 mg/dl (8.5-10.1); Carbon Dioxide 23 mmol/L (21-32); Chloride 109 mmol/L (98-107); Est GFR (African American) 60.3; Glucose 110 mg/dl (70-99); Potassium 3.8 mmol/L (3.5-5.1); Sodium 142 mmol/L (136-145)
[2020-10-11 09:39] LABS: Albumin Globulin Ratio 0.9 (0.9-2); Alkaline Phosphatase 93 U/L (45-117); Bilirubin,Total 0.5 mg/dl (0.2-1); Globulin 3.5 gm/dl (2.5-4.0); Total Protein 6.6 gm/dl (6.4-8.2); Troponin I < 0.015 ng/ml (0-0.045)
[2020-10-11] MEDS ORDERED: ALUMINUM/MAGNESIUM SUSP 30 ML UDC PO STA (09:57)
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
[2020-10-11] MEDS: ALUMINUM/MAGNESIUM SUSP 30 ML UDC PO PRN (17:16)
[2020-10-11] MEDS: ENOXAPARIN INJ 40 MG/0.4 ML SYR SQ SCH (20:06)
[2020-10-11] MEDS: MULTIVITAMIN TAB PO SCH (20:06)
[2020-10-11] MEDS ORDERED: LORATADINE 10 MG TAB PO SCH (21:00)
[2020-10-12] MEDS: MELATONIN 3 MG TAB PO PRN (00:13)
[2020-10-12] MEDS ORDERED: hydrOXYzine HCl 10 MG TAB PO STA (00:18)
[2020-10-12] MEDS: HEPARIN 100 UNIT/ML 5ML FLUSH FLUSH PRN ×2 (00:43→15:52)
[2020-10-12 00:48] LABS: Basophils # (auto) 0.01 K/uL (0-0.2); Basophils % (auto) 0.2 %; Eosinophils # (auto) 0.12 K/uL (0-0.5); Eosinophils % (auto) 1.9 %; Hematocrit (blood only) 32.4 % (37-47); Hemoglobin 10.5 g/dL (12.0-16.0); Immature Granulocytes # (auto) 0.01 K/uL (0.00-0.02); Immature Granulocytes % (auto) 0.2 %; Lymphocytes # (auto) 2.76 K/uL (1.2-3.4); Lymphocytes % (auto) 44.6 %; Mean Corpuscular Hemoglobin 26.5 pg (25-34); Mean Corpuscular Hgb Conc 32.4 g/dL (32-36); Mean Corpuscular Volume 81.8 fL (80-100); Mean Platelet Volume 9.6 fL (7.4-10.4); Monocytes # (auto) 0.21 K/uL (0.11-0.59); Monocytes % (auto) 3.4 %; Neutrophils # (auto) 3.08 K/uL (1.4-6.5); Neutrophils % (auto) 49.7 %; Platelet Count 316 K/uL (130-400); RDW Coefficient of Variation 16.1 % (11.5-14.5); RDW Standard Deviation 48.1 fL (36.4-46.3); Red Blood Count 3.96 M/uL (4.2-5.4); White Blood Count 6.19 K/uL (4.8-10.8)
[2020-10-12 01:00] LABS: D Dimer 380 ug/L FEU (0-500); Partial Thromboplastin Time 27.2 Seconds (21.0-31.0)
[2020-10-12 01:19] LABS: BUN Creatinine Ratio 18.8 (10-20); Blood Urea Nitrogen 23 mg/dl (7-18); Calcium 8.4 mg/dl (8.5-10.1); Carbon Dioxide 27 mmol/L (21-32); Chloride 108 mmol/L (98-107); Est GFR (African American) 56.1; Est GFR (Non-African American) 48.4; Glucose 91 mg/dl (70-99); Magnesium 2.2 mg/dl (1.8-2.4); Sodium 141 mmol/L (136-145)
[2020-10-12 01:23] LABS: Troponin I < 0.015 ng/ml (0-0.045)
[2020-10-12] MEDS ORDERED: LACTATED RINGER'S 1,000 ML IV ONE (01:35)
[2020-10-12] MEDS ORDERED: hydrOXYzine HCl 25 MG TAB PO STA (01:36)
[2020-10-12] MEDS: ALUMINUM/MAGNESIUM SUSP 30 ML UDC PO PRN (04:07)
[2020-10-12] MEDS ORDERED: METOPROLOL SUCC 25MG EXT REL TAB PO SCH (04:10)
[2020-10-12] MEDS ORDERED: PROMETHAZINE HCL 12.5 MG in SODIUM CHLORIDE 0.9% 50 ML IV STA (04:13)
[2020-10-12] MEDS: LEVOTHYROXINE SODIUM 88 MCG TABLET PO SCH (05:52)
[2020-10-12] MEDS: SUCRALFATE 1 GM/10 ML UDC PO SCH ×2 (05:53→12:40)
--- NOTE | 2020-10-12 07:02 | XRay Report ---
XR chest 1V portable HISTORY: 60 years-old Female sob acute shortness of breath COMPARISON: Chest radiograph 10/10/2020 TECHNIQUE: Portable AP view of the chest FINDINGS: Cardiomediastinal and hilar silhouettes are within normal limits. Right IJ [id number] catheter red emonstrated. Mild blunting of the costophrenic angles may reflect trace pleural effusions. No pneumot horax or overt pulmonary edema. Patchy ill-defined interstitial opacities are better seen on comparis on CTA of the chest. Degenerative changes of the shoulders and spine. Radiodensity projecting over th e distal esophagus redemonstrated. IMPRESSION: Subtle ill-defined bilateral interstitial opacities redemonstrated which are again suspic ious for a mild interstitial pneumonitis. ACT 112: Negative or not required by law. The above report was generated using voice recognition software. It may contain grammatical, syntax o r spelling errors. Electronically signed by: Chaz Reis M.D. 10/12/2020 7:01 AM
[2020-10-12] MEDS: PANTOprazole 40 MG TAB PO SCH (08:40)
[2020-10-12] MEDS: METOCLOPRAMIDE HCL 10 MG TABLET PO SCH (08:40)
[2020-10-12] MEDS ORDERED: LIDOCAINE HCL 1% 20 ML VIAL ONE (10:33)
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
[2020-10-12] MEDS ORDERED: CLINDAMYCIN PHOS 300 MG/2 ML VIAL ONE (10:53)
--- NOTE | 2020-10-12 11:05 | Operative Report ---
Post Operative Report Pre & Post Diagnosis syncope Operation Date: 10/12/20 10:30 <No data on this case meets the specified criteria> I identified the patient and participated in the time-out.: Yes Procedure Operation Date: 10/12/20 10:30 Actual Procedures p Loop Insertion - Tiesha Ellis DO Surgeon Tiesha Ellis DO Adventure Education Teacher none Estimated Blood Loss 1 Findings Consistent with Post-Op Diagnosis Specimens none Description of Procedure see official report I attest to the content of the Intraoperative Record and any orders documented therein. Any exceptions are noted below.
[2020-10-12] MEDS: PROMETHAZINE HCL 25 MG TAB PO PRN (12:42)
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
== END 2020-10-12 16:30 | disposition home or self-care (01) | DRG 260 ==
LOC: ED 13:38 → 2W 16:44 → INTOOBSV 16:44 → 2W 17:41

== ENCOUNTER 2021-02-18 14:16 | Observation (INO) ==
[2021-02-18] MEDS ORDERED: METOCLOPRAMIDE HCL INJ 5 MG/ML 2 ML VIAL IV STA (14:53)
--- NOTE | 2021-02-18 15:03 | Emergency Department Note ---
Impression & Plan Left-sided chest pain, Nausea, Arm pain, left, Neck pain on left side, Status post cardiac pacemaker procedure ED Provider Note INFORMANT: Patient ED PROVIDER(S): Cyril Ha MD CHIEF COMPLAINT: Chest and shoulder pain PLAN: Disposition: Admitted Condition: Good Outpatient prescription management: none Referral: None MEDICAL DECISION MAKING: Patient is a 60-year-old female that presented emerged from complaining of chest pain, shoulder pain, and left neck pain after having pacemaker placement. She was very nauseated as well. She does have a history of gastroparesis and felt like this was contributing. The patient was given IV Reglan and Benadryl. She also received Dilaudid for pain. The patient was still nauseated and was given IV Phenergan. Chest imaging did not reveal any acute abnormality. CBC and chemistry panel were unremarkable. The patient's cardiac troponin was elevated. Ultrasound imaging did not reveal any evidence of DVT. Consultation was made with the [facility] service. Patient was evaluated in the ER for further management. Triage Nursing notes reviewed and agree them. Vital Signs: reviewed and remarkable for no significant abnormalities Differential diagnosis: Complication of recent pacemaker placement, DVT, cardiac ischemia, aortic dissection, pulmonary embolism, pneumothorax, pneumonia, pericarditis, myocarditis, esophageal rupture, GERD, cholecystitis, pancreatitis, musculoskeletal, as well as other pathologies. Diagnostics interpreted by me: ECG: Twelve-lead ECG reveals normal sinus rhythm at 68 bpm. Incomplete right bundle branch block. Left ventricular hypertrophy. Prolonged QT. No ST elevation or depression. Cardiac Monitoring: Cardiac monitoring ordered by me: The patient was placed on continuous cardiac monitoring and observed. It revealed a normal sinus rhythm at 71 beats per minute without ectopy or evidence of dysrhythmia. Imaging studies: Chest x-ray. Findings: A chest x-ray was performed and revealed no pneumothorax, effusion, infiltrate, pulmonary edema, free air under the diaphragm, or wide mediastinum. Impression: No acute disease. Ultrasound imaging of the left upper extremity is negative for DVT or other noted pathology. I refer you to the EMR for further details. HPI: The patient is a 60 year old female who presents to the Emergency Room with complaints of left chest pain. This started 2 days ago and she notes occurred right after her left-sided pacemaker placement. The patient also notes the following associated symptoms, nausea, belching, left-sided neck pain, headache, left arm pain, shortness of breath. The patient has found no relieving factors. Current pain is rated as 8/10. Pt denies LOC, fevers, chills, diaphoresis, visual changes, vomiting, abdominal pain, back pain, melena, hematochezia, urinary symptoms, numbness, weakness, lymphadenopathy, rash, or ot her complaints. ROS: See above HPI for pertinent positives & negatives. A total of 10 systems reviewed and were otherwise negative. PAST MEDICAL HISTORY:See Below , gastroparesis, paroxysmal A. fib PAST SURGICAL HISTORY:See Below, pacemaker, right-sided Mediport FAMILY HISTORY:See Below SOCIAL HISTORY:See Below, non-smoker HOME MEDICATIONS:See Below ALLERGIES:See Below VITALS:See Below PHYSICAL EXAMINATION: GENERAL: Awake, alert, uncomfortable-appearing, in no distress HENT: Normocephalic, atraumatic. Oropharynx unremarkable. EYES: Normal conjunctiva. Sclera non-icteric. NECK: Inspection normal. Mild left-sided tenderness. Supple. No nuchal rigidity. FROM. No masses. RESPIRATORY: Clear to auscultation. No wheezes. No rales. Normal respiratory effort. CARDIAC: Normal rate. Normal rhythm. No murmurs. No rubs. Extremities warm and well perfused. Pulses equal. No JVD. GI: Soft, non-distended. No tenderness to palpation. No rebound or guarding. No masses. RECTAL: Deferred. MUSCULOSKELETAL: Atraumatic. Chest examination reveals left-sided periincisional tenderness. No bleeding or drainage from the surgical incision. No significant surrounding erythema or fluctuance. Left upper extremity does not reveal any significant edema. Neurovascular intact. Range of motion of the left shoulder is limited secondary to pain. The back is symmetrical on inspection without obvious abnormality. There is no CVA tenderness to palpation. No joint edema. LOWER EXTREMITIES: Calves are equal size bilaterally and non-tender. No edema. No discoloration. NEURO: Normal sensorium. No sensory or motor deficits noted. SKIN: No rash or jaundice noted. Cyril Ha MD Past Med/Surg History Medical History Acidosis, lactic Anxiety Asthma COPD (chronic obstructive pulmonary disease) COVID-19 Depression Diverticulosis Frequent PVCs GERD (gastroesophageal reflux disease) H/O irritable bowel syndrome HTN (hypertension) Hypomagnesemia Hypothyroidism Intractable nausea and vomiting Mitral regurgitation "moderate per echo 09/21/15" Neuropathy Paroxysmal A-fib Pemphigus vulgaris Prolonged QT interval Tobacco abuse Surgical History History of bladder surgery History of laparoscopic partial gastrectomy History of pyloroplasty History of total hysterectomy Hx of cholecystectomy Hx of tonsillectomy S/P hysterectomy S/P laparoscopic sleeve gastrectomy S/P partial gastrectomy S/P repair of paraesophageal hernia "resulted in volvulus, required abdominal exploration" S/P tonsillectomy and adenoidectomy Family History Mother DM type 2 (diabetes mellitus, type 2) Coronary heart disease Social History Smoking Status: Current every day smoker Tobacco Type: Cigarettes Cigarettes Per Day: 1 ppd; Second Hand Exposure: No; Do You Dip or Chew Tobacco: No; Tobacco Cessation Education Requested by Patient: No Hx Alcohol Use: Yes Alcohol type: beer Alcohol Intake Frequency Comment: 3-4 beers/week Hx Substance Use: No Preferred Language: Japanese Communication Ability: Effective Manager Loan Required: Voice Beliefs That Will Affect Care: None marital status: / Current Living Situation: Family Current Living Situation Comment: Pt lives with brother Other Information That Helps Us Care for You: No Feels Safe at Home: Yes Safety Concerns: Feels Safe At This Time Assistive Devices: Glasses Allergies Allergies Allergy/AdvReac Type Severity Reaction Status Date / Time adhesive Allergy Mild SKIN Verified 02/16/21 07:12 IRRITATION amoxicillin AdvReac Intermediate yeast Verified 02/16/21 07:12 infection lactose AdvReac Intermediate Gastrointestinal Verified 02/16/21 07:12 Upset NSAIDS (Non-Steroidal AdvReac Mild indegestion Verified 02/16/21 07:12 Anti-Inflamma rofecoxib AdvReac Mild indigestion Verified 02/16/21 07:12 scopolamine AdvReac Mild rash from Verified 02/16/21 07:12 patch Home Meds Home Medications Medication Instructions Recorded Confirmed multivitamin 1 tab PO HS 09/09/18 02/18/21 dicyclomine 10 mg PO BID PRN 12/17/19 02/18/21 metoclopramide HCl 10 mg PO TID 09/30/20 02/18/21 promethazine 25 mg PO Q6H PRN 09/30/20 02/18/21 metoprolol succinate 25 mg PO BID 02/16/21 02/18/21 Previous Rx's Medication Instructions Recorded pantoprazole 40 mg PO BID #60 tab 12/10/19 acetaminophen [Tylenol Extra 1,000 mg PO Q6H PRN #60 tab 12/16/19 Strength] levothyroxine [Synthroid] 88 mcg PO QAM #30 tab 12/16/19 Results & Data (ED) Vital Signs Vital Signs - 24 hr 02/18/21 14:16 02/18/21 14:25 02/18/21 14:30 Temperature 36.9 C Temperature Source Oral Pulse Rate 69 69 71 Pulse Rate from SpO2 Sensor 66 67 Pulse Rhythm Regular Respiratory Rate 23 23 24 Respiratory Effort / Characteristics Non-Labored Spontaneous Respiratory Depth Normal Respiratory Pattern Regular Blood Pressure 160/99 H 160/99 H 159/109 H Blood Pressure Mean 119 119 125 Pulse Oximetry 98 98 98 Oxygen Delivery Method Room Air Sepsis Recent Fever Within 48 Hours No Sepsis New/Unexplained Change in Mental Status No Sepsis Action Taken by Nursing No Action Required 02/18/21 14:51 02/18/21 15:01 02/18/21 15:30 Temperature Temperature Source Pulse Rate 71 69 65 Pulse Rate from SpO2 Sensor 66 66 Pulse Rhythm Regular Respiratory Rate 24 25 H 15 Respiratory Effort / Characteristics Respiratory Depth Respiratory Pattern Blood Pressure 164/95 H 133/96 Blood Pressure Mean 118 108 Pulse Oximetry 98 98 93 Oxygen Delivery Method Room Air Sepsis Recent Fever Within 48 Hours Sepsis New/Unexplained Change in Mental Status Sepsis Action Taken by Nursing 02/18/21 16:00 Temperature Temperature Source Pulse Rate 65 Pulse Rate from SpO2 Sensor 62 Pulse Rhythm Respiratory Rate 23 Respiratory Effort / Characteristics Respiratory Depth Respiratory Pattern Blood Pressure 141/97 H Blood Pressure Mean 111 Pulse Oximetry 95 Oxygen Delivery Method Sepsis Recent Fever Within 48 Hours Sepsis New/Unexplained Change in Mental Status Sepsis Action Taken by Nursing Laboratory Data Result diagrams: 02/18/21 15:14 02/18/21 15:14 Lab Results 02/18/21 02/18/21 02/18/21 Range/Units 15:14 15:14 15:14 WBC 6.53 (4.8-10.8) K/uL RBC 3.85 L (4.2-5.4) M/uL Hgb 9.7 L (12.0-16.0) g/dL Hct 30.4 L (37-47) % MCV 79.0 L (80-100) fL MCH 25.2 (25-34) pg MCHC 31.9 L (32-36) g/dL RDW Std Deviation 50.1 H (36.4-46.3) fL RDW Coeff of Ana M 17.4 H (11.5-14.5) % Plt Count 252 (130-400) K/uL MPV 9.1 (7.4-10.4) fL Immature Gran % (Auto) 0.2 % Neut % (Auto) 66.8 % Lymph % (Auto) 23.6 % Ransom % (Auto) 7.8 % Eos % (Auto) 1.4 % Baso % (Auto) 0.2 % Neut # (Auto) 4.37 (1.4-6.5) K/uL Lymph # (Auto) 1.54 (1.2-3.4) K/uL Ransom # (Auto) 0.51 (0.11-0.59) K/uL Eos # (Auto) 0.09 (0-0.5) K/uL Baso # (Auto) 0.01 (0-0.2) K/uL Immature Gran # (Auto) 0.01 (0.00-0.02) K/uL PT (9.0-12.0) Seconds INR (0.9-1.1) APTT 21.6 (21.0-31.0) Seconds PTT Ratio 0.8 Sodium 143 (136-145) mmol/L Potassium 3.2 L (3.5-5.1) mmol/L Chloride 112 H (98-107) mmol/L Carbon Dioxide 24 (21-32) mmol/L Anion Gap 7.0 (3-11) BUN 12 (7-18) mg/dl Creatinine 0.81 (0.6-1.2) mg/dl Est Cr Clr Drug Dosing 77.9 ml/min Est GFR ( Amer) 90.2 ml/min Est GFR (Non-Af Amer) 77.8 ml/min BUN/Creatinine Ratio 14.8 (10-20) Glucose 99 (70-99) mg/dl Calcium 8.5 (8.5-10.1) mg/dl Total Bilirubin 0.3 (0.2-1) mg/dl AST 11 L (15-37) U/L ALT 11 L (12-78) U/L Alkaline Phosphatase 80 (45-117) U/L Troponin I 0.149 H* (0-0.045) ng/ml Total Protein 6.5 (6.4-8.2) gm/dl Albumin 3.0 L (3.4-5.0) gm/dl Globulin 3.5 (2.5-4.0) gm/dl Albumin/Globulin Ratio 0.9 (0.9-2) Lipase 123 (73-393) U/L 02/18/21 Range/Units 15:14 WBC (4.8-10.8) K/uL RBC (4.2-5.4) M/uL Hgb (12.0-16.0) g/dL Hct (37-47) % MCV (80-100) fL MCH (25-34) pg MCHC (32-36) g/dL RDW Std Deviation (36.4-46.3) fL RDW Coeff of Ana M (11.5-14.5) % Plt Count (130-400) K/uL MPV (7.4-10.4) fL Immature Gran % (Auto) % Neut % (Auto) % Lymph % (Auto) % Ransom % (Auto) % Eos % (Auto) % Baso % (Auto) % Neut # (Auto) (1.4-6.5) K/uL Lymph # (Auto) (1.2-3.4) K/uL Ransom # (Auto) (0.11-0.59) K/uL Eos # (Auto) (0-0.5) K/uL Baso # (Auto) (0-0.2) K/uL Immature Gran # (Auto) (0.00-0.02) K/uL PT 9.7 (9.0-12.0) Seconds INR 1.0 (0.9-1.1) APTT (21.0-31.0) Seconds PTT Ratio Sodium (136-145) mmol/L Potassium (3.5-5.1) mmol/L Chloride (98-107) mmol/L Carbon Dioxide (21-32) mmol/L Anion Gap (3-11) BUN (7-18) mg/dl Creatinine (0.6-1.2) mg/dl Est Cr Clr Drug Dosing ml/min Est GFR ( Amer) ml/min Est GFR (Non-Af Amer) ml/min BUN/Creatinine Ratio (10-20) Glucose (70-99) mg/dl Calcium (8.5-10.1) mg/dl Total Bilirubin (0.2-1) mg/dl AST (15-37) U/L ALT (12-78) U/L Alkaline Phosphatase (45-117) U/L Troponin I (0-0.045) ng/ml Total Protein (6.4-8.2) gm/dl Albumin (3.4-5.0) gm/dl Globulin (2.5-4.0) gm/dl Albumin/Globulin Ratio (0.9-2) Lipase (73-393) U/L Administered Medications Albuterol (Albuterol 0.083% Nebu Soln 3 Ml Vial) 2.5 mg NEB Q6R PRN PRN Reason: Shortness Of Breath, wheeze Stop: 03/20/21 20:28 Last Admin: 02/18/21 21:35 Dose: 2.5 mg Documented by: [id number] Pantoprazole Sodium 40 mg/ (Syringe) 10 mls @ 5 mls/min IV BID RUSSELL Stop: 03/20/21 20:59 Last Admin: 02/18/21 21:54 Dose: 5 mls/min Documented by: [id number] Metoprolol Succinate (Metoprolol Succ 25mg Ext Rel Tab) 25 mg PO BID RUSSELL Stop: 03/20/21 20:59 Last Admin: 02/18/21 22:15 Dose: 25 mg Documented by: [id number] Oxycodone HCl (Oxycodone Hcl Ir 5 Mg Tab (Immediate Release)) 5 mg PO Q4H PRN PRN Reason: Pain Stop: 03/04/21 20:43 Last Admin: 02/18/21 21:52 Dose: 5 mg Documented by: [id number] Discontinued Medications Diphenhydramine HCl (Diphenhydramine 50 Mg/Ml Vial) Confirm Administered Dose 50 mg .ROUTE .STK-MED ONE Stop: 02/18/21 15:19 Last Admin: 02/18/21 15:27 Dose: Not Given Documented by: [id number] Heparin Sodium (Porcine) (Heparin 100 Unit/Ml 5ml Flush) Confirm Administered Dose 5 ml .ROUTE .STK-MED ONE Stop: 02/18/21 15:25 Last Admin: 02/18/21 15:28 Dose: 5 ml Documented by: [id number] Hydromorphone HCl (Hydromorphone Inj 0.5 Mg/0.5 Ml Syr) 0.5 mg IV Q15M PRN PRN Reason: Pain Stop: 03/04/21 14:52 Last Admin: 02/18/21 17:29 Dose: 0.5 mg Documented by: [id number] Admin: 02/18/21 15:20 Dose: 0.5 mg Documented by: [id number] Diphenhydramine HCl 12.5 mg/ (Syringe) 0.25 mls @ 1 mls/hr IV NOW STA Stop: 02/18/21 15:07 Last Admin: 02/18/21 15:20 Dose: 1 mls/hr Documented by: [id number] Promethazine HCl (Phenergan) 25 mg in 51 mls @ 204 mls/hr IV NOW STA Stop: 02/18/21 17:17 Last Infusion: 02/18/21 18:38 Dose: 0 mls/hr Documented by: [id number] Admin: 02/18/21 17:29 Dose: 204 mls/hr Documented by: [id number] Potassium Chloride (K James / Wtr) 10 meq in 100 mls @ 100 mls/hr IV Q1H STA Stop: 02/18/21 19:23 Last Infusion: 02/18/21 20:28 Dose: 0 mls/hr Documented by: [id number] Admin: 02/18/21 19:30 Dose: 100 mls/hr Documented by: [id number] Metoclopramide HCl (Metoclopramide Hcl Inj 5 Mg/Ml 2 Ml Vial) 10 mg IV NOW STA Stop: 02/18/21 14:54 Last Admin: 02/18/21 15:20 Dose: 10 mg Documented by: [id number] Imaging Data Radiologist's Impression: Chest X-Ray 02/18/21 14:51 XR chest 1V portable CLINICAL HISTORY: Chest Pain, left, s/p pacer placement COMPARISON STUDY: 02/16/2021 FINDINGS: There is a left subclavian dual-chamber central venous pacemaker. There is a right-sided A-Port catheter. No pneumothorax is visualized. There is stable minor blunting of the right lateral costophrenic angle.[There is a stable radiopacity projected over the expected location of the esophagogastric junction. This was described on the prior CT scan and likely represents either dense calcification or old extraluminal contrast. IMPRESSION: No active disease in the chest. ACT 112: Negative or not required by law. Electronically signed by: Osmany Rahman M.D. 02/18/2021 3:09 PM Extremity Venous Study 02/18/21 14:51 ULTRASOUND LEFT UPPER EXTREMITY VENOUS CLINICAL HISTORY: Left arm and neck pain status post pacemaker implantation. COMPARISON STUDY: No priors. TECHNIQUE: Real-time, grayscale, and color Doppler sonography of the deep veins of the left upper extremity is performed. Compression and augmentation were utilized. FINDINGS: There is no sonographic evidence of deep venous thrombosis identified in the left upper extremity. The left internal jugular, axillary, and brachial veins are patent and normally compressible. Normal venous waveforms and augmentation are seen within the left subclavian vein. The cephalic and basilic veins are clear. The visualized radial and ulnar veins are patent. Pacemaker leads are noted. IMPRESSION: There is no sonographic evidence of deep venous thrombosis identified in the left upper extremity. ACT 112: Negative or not required by law. Electronically signed by: Bayron Tillman M.D. 02/18/2021 4:39 PM Discharge Plan Visit Data Chief Complaint: Cardiac Assessment ED Provider: Cyril Ha Discharge Problem: Left-sided chest pain, Nausea, Arm pain, left, Neck pain on left side, Status post cardiac pacemaker procedure Patient Disposition: Admitted As Inpatient Discharge Instructions Interventions: ED Discharge Assessment Last Done: 02/18/21 20:08
--- NOTE | 2021-02-18 15:10 | XRay Report ---
XR chest 1V portable CLINICAL HISTORY: Chest Pain, left, s/p pacer placement COMPARISON STUDY: 02/16/2021 FINDINGS: There is a left subclavian dual-chamber central venous pacemaker. There is a right-sided A- Port catheter. No pneumothorax is visualized. There is stable minor blunting of the right lateral cos tophrenic angle.[There is a stable radiopacity projected over the expected location of the esophagoga stric junction. This was described on the prior CT scan and likely represents either dense calcificat ion or old extraluminal contrast. IMPRESSION: No active disease in the chest. ACT 112: Negative or not required by law. Electronically signed by: Osmany Rahman M.D. 02/18/2021 3:09 PM
[2021-02-18] MEDS ORDERED: diphenhydrAMINE 50 MG/ML VIAL ONE (15:18)
[2021-02-18] MEDS: HYDROmorphone INJ 0.5 MG/0.5 ML SYR IV PRN ×2 (15:20→17:29)
[2021-02-18 15:22] LABS: Basophils # (auto) 0.01 K/uL (0-0.2); Basophils % (auto) 0.2 %; Eosinophils # (auto) 0.09 K/uL (0-0.5); Eosinophils % (auto) 1.4 %; Hematocrit (blood only) 30.4 % (37-47); Hemoglobin 9.7 g/dL (12.0-16.0); Immature Granulocytes # (auto) 0.01 K/uL (0.00-0.02); Immature Granulocytes % (auto) 0.2 %; Lymphocytes # (auto) 1.54 K/uL (1.2-3.4); Lymphocytes % (auto) 23.6 %; Mean Corpuscular Hemoglobin 25.2 pg (25-34); Mean Corpuscular Hgb Conc 31.9 g/dL (32-36); Mean Platelet Volume 9.1 fL (7.4-10.4); Monocytes # (auto) 0.51 K/uL (0.11-0.59); Monocytes % (auto) 7.8 %; Neutrophils # (auto) 4.37 K/uL (1.4-6.5); Neutrophils % (auto) 66.8 %; Platelet Count 252 K/uL (130-400); RDW Coefficient of Variation 17.4 % (11.5-14.5); RDW Standard Deviation 50.1 fL (36.4-46.3); Red Blood Count 3.85 M/uL (4.2-5.4); White Blood Count 6.53 K/uL (4.8-10.8)
[2021-02-18] MEDS ORDERED: HEPARIN 100 UNIT/ML 5ML FLUSH ONE (15:24)
[2021-02-18 15:46] LABS: BUN Creatinine Ratio 14.8 (10-20); Calcium 8.5 mg/dl (8.5-10.1); Creatinine Clr Calc Pharmacy 77.9 ml/min; Est GFR (African American) 90.2 ml/min; Est GFR (Non-African American) 77.8 ml/min; Potassium 3.2 mmol/L (3.5-5.1)
[2021-02-18 15:47] LABS: Partial Thromboplastin Ratio 0.8; Partial Thromboplastin Time 21.6 Seconds (21.0-31.0)
[2021-02-18 16:04] LABS: Albumin Globulin Ratio 0.9 (0.9-2); Bilirubin,Total 0.3 mg/dl (0.2-1); Globulin 3.5 gm/dl (2.5-4.0); Total Protein 6.5 gm/dl (6.4-8.2); Troponin I 0.149 ng/ml (0-0.045)
--- NOTE | 2021-02-18 16:40 | Ultrasound Report ---
ULTRASOUND LEFT UPPER EXTREMITY VENOUS CLINICAL HISTORY: Left arm and neck pain status post pacemaker implantation. COMPARISON STUDY: No priors. TECHNIQUE: Real-time, grayscale, and color Doppler sonography of the deep veins of the left upper ext remity is performed. Compression and augmentation were utilized. FINDINGS: There is no sonographic evidence of deep venous thrombosis identified in the left upper ext remity. The left internal jugular, axillary, and brachial veins are patent and normally compressible. Normal venous waveforms and augmentation are seen within the left subclavian vein. The cephalic and basilic veins are clear. The visualized radial and ulnar veins are patent. Pacemaker leads are noted. IMPRESSION: There is no sonographic evidence of deep venous thrombosis identified in the left upper e xtremity. ACT 112: Negative or not required by law. Electronically signed by: Bayron Tillman M.D. 02/18/2021 4:39 PM
[2021-02-18] MEDS ORDERED: PROMETHAZINE 25 MG/51 ML BAG IV STA (17:03)
--- NOTE | 2021-02-18 17:29 | History & Physical Report ---
Date of Service February 18, 2021 Assessment & Plan (1) Status post cardiac pacemaker procedure: - Completed on 02/16/[address] Ellis (2) Chest pain: - Admit to tele for observation for r/o - Trend cardiac biomarkers, initial set was negative - EKG reviewed - consider 2 D echo - If negative enzymes can consider a stress test tomorrow morning. - PT/OT consulted - Check magnesium now and with am labs - Consider cardiology consult - Possible that troponin is bumped from pacemaker insertion itself. -Continue metoprolol succinate 25 mg BID, reports this was recently increased per cardiology (3) Paroxysmal A-fib: -Rate controlled with metoprolol succinate 25 mg BID (4) Mitral regurgitation: -History of such (5) Confusion: - possible that IV medications in the ER caused confusion? Not on pain medication. - Check INR, if altered check liver panel and ammonia for r/o - fall precautions (6) COPD (chronic obstructive pulmonary disease): -Current tobacco user, has not smoked since Sunday, will use albuterol nebs with expiratory wheezing heard on exam -Encourage cessation of smoking at bedside (7) Tobacco abuse: -Cessation encouraged at bedside, as above, declined nicotine patch (8) Hypothyroidism: - Continue levothyroxine 88 mcg daily, if unable to tolerate p.o. meds then would transition to IV (9) GERD (gastroesophageal reflux disease): -Protonix 40 mg IV twice daily, takes p.o. at home, + nausea (10) Anxiety: -History of such, not on any anxiolytics (11) Gastroparesis: (12) History of laparoscopic partial gastrectomy: -History of such several years ago, using [employer] for IV infusions of vitamins and minerals as outpatient. -Chronic nausea, continue Reglan, Phenergan, dicyclomine -Transition meds to IV if possible (13) DVT prophylaxis: - teds, scds CODE: Full code Dispo: From home, likely to remain in the hospital x 1-2 days History of Present Illness Primary Care Provider: Jaleel Coppola MD This is a 60-year-old female who has past medical history of tachybradycardia syndrome recently undergoing pacemaker placement on 02/16/[address] Ellis. After going home she did not quite feel herself and was surprised that she was discharged. She lives at home with her brother who has been helping her to basic things around the house. Earlier today she developed substernal chest p ain which migrated to left chest pain, which then radiated to her left arm and neck. She use nauseous due to gastroparesis, but reports that this is a daily occurrence, and no worse than normal. Patient had COVID-19 infection in August and has overall not felt back to her normal self since then. She has not received vaccine. She appears to be slightly confused with saying phrases that don't make sense when asked a question at times, and answers " I don't know" to many of my questions. Other past medical history includes paroxysmal A. fib, mitral regurg, prolonged QT interval, COPD, CKD stage III, anemia, hypothyroidism, gastroparesis s/p partial gastrectomy, for which she has a right subclavian port in place for infusions, tobacco use disorder, GERD, and MDD. Troponin found to be 0.149, DVT was assessed in her bilateral lower extremities and is negative, EKG is negative for ST wave inversions or signs of acute ischemia. She is noted to have low potassium at 3.2, which will be replaced. Will trend troponins. Allergies Allergy/AdvReac Type Severity Reaction Status Date / Time adhesive Allergy Mild SKIN Verified 02/16/21 07:12 IRRITATION amoxicillin AdvReac Intermediate yeast Verified 02/16/21 07:12 infection lactose AdvReac Intermediate Gastrointestinal Verified 02/16/21 07:12 Upset NSAIDS (Non-Steroidal AdvReac Mild indegestion Verified 02/16/21 07:12 Anti-Inflamma rofecoxib AdvReac Mild indigestion Verified 02/16/21 07:12 scopolamine AdvReac Mild rash from Verified 02/16/21 07:12 patch Home Medications Medication Instructions Recorded Confirmed Type multivitamin 1 tab PO HS 09/09/18 02/18/21 History pantoprazole 40 mg PO BID #60 tab 12/10/19 02/18/21 Rx acetaminophen [Tylenol Extra 1,000 mg PO Q6H PRN #60 tab 12/16/19 02/18/21 Rx Strength] levothyroxine [Synthroid] 88 mcg PO QAM #30 tab 12/16/19 02/18/21 Rx dicyclomine 10 mg PO BID PRN 12/17/19 02/18/21 History metoclopramide HCl 10 mg PO TID 09/30/20 02/18/21 History promethazine 25 mg PO Q6H PRN 09/30/20 02/18/21 History metoprolol succinate 25 mg PO BID 02/16/21 02/18/21 History Past Med/Surg History Medical History Acidosis, lactic Anxiety Asthma COPD (chronic obstructive pulmonary disease) COVID-19 Depression Diverticulosis Frequent PVCs GERD (gastroesophageal reflux disease) H/O irritable bowel syndrome HTN (hypertension) Hypomagnesemia Hypothyroidism Intractable nausea and vomiting Mitral regurgitation "moderate per echo 09/21/15" Neuropathy Paroxysmal A-fib Pemphigus vulgaris Prolonged QT interval Tobacco abuse Surgical History History of bladder surgery History of laparoscopic partial gastrectomy History of pyloroplasty History of total hysterectomy Hx of cholecystectomy Hx of tonsillectomy S/P hysterectomy S/P laparoscopic sleeve gastrectomy S/P partial gastrectomy S/P repair of paraesophageal hernia "resulted in volvulus, required abdominal exploration" S/P tonsillectomy and adenoidectomy Family History Mother DM type 2 (diabetes mellitus, type 2) Coronary heart disease Social History Smoking Status: Current every day smoker Tobacco Type: Cigarettes Cigarettes Per Day: 1 ppd; Second Hand Exposure: No; Do You Dip or Chew Tobacco: No; Tobacco Cessation Education Requested by Patient: No Hx Alcohol Use: Yes Alcohol type: beer Alcohol Intake Frequency Comment: 3-4 beers/week Hx Substance Use: No Preferred Language: Chadian Communication Ability: Effective Court Clerk Required: Voice Beliefs That Will Affect Care: None marital status: / Current Living Situation: Family Current Living Situation Comment: Pt lives with brother Other Information That Helps Us Care for You: No Feels Safe at Home: Yes Safety Concerns: Feels Safe At This Time Assistive Devices: Glasses Review of Systems Review of Systems: Constitutional: No fever, sweats or chills Eyes: No diplopia, no worsening or blurred vision ENT: normal hearing, no trouble swallowing Respiratory: No cough, sputum, dyspnea at rest or on exertion Cardiovascular: As per HPI, no tightness or palpitations, pacemaker insertion on 02/16 Abdomen: + Chronic nausea, no vomiting, history of irritable bowel, last BM today, no diarrhea or constipation Musculoskeletal: No joint pain, calf pain, swelling Neurologic: No weakness, numbness/tingling, or balance problems Psychiatric: No anxiety or depression Skin: No rash or itch Physical Exam Physical Exam: General: awake, alert, + mild distress, appears to be slightly confused, obese with BMI of 31.5 Head: Normocephalic, atraumatic ENT: PERRL, EOMI, no pharyngeal exudate, mucous membranes moist Chest: On 2 L with O2 sats 95% , + expiratory wheezing, no rales or rhonchi. Cardiac: R chest wall mediport in place, accessed, Left chest wall pacemaker incision with surrounding ecchymosis, pain at incision site, no chest pain reproducible on palpation, otherwise regular rate and rhythm, no murmur, no JVD, normal peripheral pulses, good capillary refill Abdominal: NABS x 4 quadrants, soft, nondistended, nontender to palpation, no rebound or guarding Extremities: Normal inspection, no peripheral edema or erythema, calfs nontender to palpation Psych: Normal mood and affect Neuro: AAO x 3, strength intact bilaterally and rated 5/5, no motor deficits, speech is clear, unable to describe chronological events this morning, required straight forward questions for HPI, answers " I don't know", at times has inappropriate responses, talking about groundhog at one point when asked about timing of chest pain, no peripheral sensory deficits Results & Data Results & Data ([facility]) Vital Signs (Past 12 Hours) Vital Signs Temp Pulse Resp BP Pulse Ox 02/18/21 16:00 65 23 141/97 H 95 02/18/21 15:30 65 15 133/96 93 02/18/21 15:01 69 25 H 164/95 H 98 02/18/21 14:51 71 24 98 02/18/21 14:30 71 24 159/109 H 98 02/18/21 14:25 69 23 160/99 H 98 02/18/21 14:16 36.9 C 69 23 160/99 H 98 Laboratory Results Laboratory Results - last 24 hr 02/18/21 02/18/21 02/18/21 15:14 15:14 15:14 WBC 6.53 RBC 3.85 L Hgb 9.7 L Hct 30.4 L MCV 79.0 L MCH 25.2 MCHC 31.9 L RDW Std Deviation 50.1 H RDW Coeff of Ana M 17.4 H Plt Count 252 MPV 9.1 Immature Gran % (Auto) 0.2 Neut % (Auto) 66.8 Lymph % (Auto) 23.6 Bureau % (Auto) 7.8 Eos % (Auto) 1.4 Baso % (Auto) 0.2 Neut # (Auto) 4.37 Lymph # (Auto) 1.54 Bureau # (Auto) 0.51 Eos # (Auto) 0.09 Baso # (Auto) 0.01 Immature Gran # (Auto) 0.01 APTT 21.6 PTT Ratio 0.8 Sodium 143 Potassium 3.2 L Chloride 112 H Carbon Dioxide 24 Anion Gap 7.0 BUN 12 Creatinine 0.81 Est Cr Clr Drug Dosing 77.9 Est GFR ( Amer) 90.2 Est GFR (Non-Af Amer) 77.8 BUN/Creatinine Ratio 14.8 Glucose 99 Calcium 8.5 Total Bilirubin 0.3 AST 11 L ALT 11 L Alkaline Phosphatase 80 Troponin I 0.149 H* Total Protein 6.5 Albumin 3.0 L Globulin 3.5 Albumin/Globulin Ratio 0.9 Lipase 123 COVID-19 Eval Order SARS-CoV-2 (PCR) 02/18/21 02/18/21 17:35 17:35 WBC RBC Hgb Hct MCV MCH MCHC RDW Std Deviation RDW Coeff of Ana M Plt Count MPV Immature Gran % (Auto) Neut % (Auto) Lymph % (Auto) Bureau % (Auto) Eos % (Auto) Baso % (Auto) Neut # (Auto) Lymph # (Auto) Bureau # (Auto) Eos # (Auto) Baso # (Auto) Immature Gran # (Auto) APTT PTT Ratio Sodium Potassium Chloride Carbon Dioxide Anion Gap BUN Creatinine Est Cr Clr Drug Dosing Est GFR ( Amer) Est GFR (Non-Af Amer) BUN/Creatinine Ratio Glucose Calcium Total Bilirubin AST ALT Alkaline Phosphatase Troponin I Total Protein Albumin Globulin Albumin/Globulin Ratio Lipase COVID-19 Eval Order Covid19 at [facility] SARS-CoV-2 (PCR) Pending Diagnostic Findings Chest X-Ray 02/18/21 14:51 XR chest 1V portable CLINICAL HISTORY: Chest Pain, left, s/p pacer placement COMPARISON STUDY: 02/16/2021 FINDINGS: There is a left subclavian dual-chamber central venous pacemaker. There is a right-sided A-Port catheter. No pneumothorax is visualized. There is stable minor blunting of the right lateral costophrenic angle.[There is a stable radiopacity projected over the expected location of the esophagogastric junction. This was described on the prior CT scan and likely represents either dense calcification or old extraluminal contrast. IMPRESSION: No active disease in the chest. ACT 112: Negative or not required by law. Electronically signed by: Osmany Rahman M.D. 02/18/2021 3:09 PM Extremity Venous Study 02/18/21 14:51 ULTRASOUND LEFT UPPER EXTREMITY VENOUS CLINICAL HISTORY: Left arm and neck pain status post pacemaker implantation. COMPARISON STUDY: No priors. TECHNIQUE: Real-time, grayscale, and color Doppler sonography of the deep veins of the left upper extremity is performed. Compression and augmentation were utilized. FINDINGS: There is no sonographic evidence of deep venous thrombosis identified in the left upper extremity. The left internal jugular, axillary, and brachial veins are patent and normally compressible. Normal venous waveforms and augmentation are seen within the left subclavian vein. The cephalic and basilic veins are clear. The visualized radial and ulnar veins are patent. Pacemaker leads are noted. IMPRESSION: There is no sonographic evidence of deep venous thrombosis identified in the left upper extremity. ACT 112: Negative or not required by law. Electronically signed by: Bayron Tillman M.D. 02/18/2021 4:39 PM Code Status & VTE Plan VTE Prophylaxis Plan VTE Prophylaxis will be ordered: Yes Supervising Physician Co-Signing Physician Notes Attending addendum: 60-year-old female who had recent pacemaker placement for tachybradycardia symptoms, admitted with chest heaviness discomfort Admit to PCU, cardiology consulted, resting echo to assess any wall motion abnormality Theodora Mohr MD (1) Hypothyroidism Hypothyroidism type: acquired Qualified Code(s): E03.9 - Hypothyroidism, unspecified (2) GERD (gastroesophageal reflux disease) Esophagitis presence: with esophagitis Qualified Code(s): K21.0 - Gastro- esophageal reflux disease with esophagitis (3) Chest pain Chest pain type: unspecified Qualified Code(s): R07.9 - Chest pain, unspeci fied
[2021-02-18] MEDS ORDERED: POTASSIUM CHLORIDE / WTR 10 MEQ/100 ML PLCT IV STA (18:24)
[2021-02-18 18:49] LABS: Prothrombin Time 9.7 Seconds (9.0-12.0)
[2021-02-18] MEDS ORDERED: DICYCLOMINE HCL 10 MG CAP PO PRN (20:29)
[2021-02-18] MEDS ORDERED: PROMETHAZINE HCL 12.5 MG in SODIUM CHLORIDE 0.9% 50 ML IV PRN (20:29)
[2021-02-18] MEDS: ALBUTEROL 0.083% NEBU SOLN 3 ML VIAL NEB PRN (21:35)
[2021-02-18] MEDS: oxyCODONE HCL IR 5 MG TAB (IMMEDIATE RELEASE) PO PRN (21:52)
[2021-02-18] MEDS: PANTOprazole 40 MG in SYRINGE 0 ML IV SCH (21:54)
[2021-02-18] MEDS ORDERED: ALTEPLASE, RECOMBINANT 1 MG/ML 2ML VIAL INSTIL ONE (22:09)
[2021-02-18] MEDS: METOPROLOL SUCC 25MG EXT REL TAB PO SCH (22:15)
[2021-02-18 23:32] LABS: Magnesium 1.9 mg/dl (1.8-2.4); Troponin I 0.168 ng/ml (0-0.045)
[2021-02-18] MEDS ORDERED: HYDROmorphone INJ 0.5 MG/0.5 ML SYR IV STA (23:50)
[2021-02-19] MEDS ORDERED: HEPARIN 100 UNIT/ML 5ML FLUSH FLUSH PRN (01:21)
[2021-02-19] MEDS: METOCLOPRAMIDE HCL INJ 5 MG/ML 2 ML VIAL IV PRN (01:26)
[2021-02-19] MEDS: ACETAMINOPHEN 325 MG TAB PO PRN ×2 (01:26→22:59)
[2021-02-19] MEDS ORDERED: ALUMINUM/MAGNESIUM/SIMETH (MAALOX MAX) 30 ML UDC PO STA (02:49)
[2021-02-19] MEDS ORDERED: FAMOTIDINE 20 MG in SYRINGE 3 ML IV ONE (03:00)
[2021-02-19] MEDS ORDERED: PROMETHAZINE HCL 12.5 MG in SODIUM CHLORIDE 0.9% 50 ML IV STA (03:40)
[2021-02-19] MEDS: oxyCODONE HCL IR 5 MG TAB (IMMEDIATE RELEASE) PO PRN ×4 (04:56→21:19)
[2021-02-19] MEDS: LEVOTHYROXINE SODIUM 88 MCG TABLET PO SCH (05:43)
[2021-02-19 07:15] LABS: Hematocrit (blood only) 31.2 % (37-47); Hemoglobin 9.8 g/dL (12.0-16.0); Mean Corpuscular Hemoglobin 25.1 pg (25-34); Mean Corpuscular Hgb Conc 31.4 g/dL (32-36); Mean Platelet Volume 9.4 fL (7.4-10.4); Platelet Count 225 K/uL (130-400); RDW Coefficient of Variation 17.5 % (11.5-14.5); RDW Standard Deviation 51.3 fL (36.4-46.3); White Blood Count 5.26 K/uL (4.8-10.8)
[2021-02-19 07:34] LABS: Albumin Level 2.9 gm/dl (3.4-5.0); BUN Creatinine Ratio 20.4 (10-20); Calcium 8.3 mg/dl (8.5-10.1); Creatinine Clr Calc Pharmacy 78.5 ml/min; Est GFR (Non-African American) 80.2 ml/min; Potassium 3.2 mmol/L (3.5-5.1)
[2021-02-19 07:40] LABS: Albumin Globulin Ratio 0.9 (0.9-2); Bilirubin,Total 0.3 mg/dl (0.2-1); Globulin 3.3 gm/dl (2.5-4.0); Phosphorus 4.1 mg/dl (2.5-4.9); Total Protein 6.2 gm/dl (6.4-8.2); Troponin I 0.12 ng/ml (0-0.045)
[2021-02-19] MEDS: METOPROLOL SUCC 25MG EXT REL TAB PO SCH ×2 (08:17→20:14)
[2021-02-19] MEDS: PANTOprazole 40 MG in SYRINGE 0 ML IV SCH ×2 (08:17→20:14)
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
--- NOTE | 2021-02-19 15:25 | Electrocardiogram Report ---
Test Reason : Blood Pressure : / mmHG Vent. Rate : 062 BPM Atrial Rate : 062 BPM P-R Int : 188 ms QRS Dur : 106 ms QT Int : 452 ms P-R-T Axes : 000 -17 -16 degrees QTc Int : 458 ms Atrial-paced rhythm Incomplete right bundle branch block Voltage criteria for left ventricular hypertrophy Abnormal ECG When compared with ECG of 18-FEB-2021 14:21, Electronic atrial pacemaker has replaced Sinus rhythm Nonspecific T wave abnormality now evident in Anterior leads Confirmed by Rick Escobar ([id number]) on 02/19/2021 3:25:13 PM Referred By: Tiesha Ellis Confirmed By:Rick Escobar
[2021-02-19] MEDS ORDERED: POTASSIUM CHLORIDE CRTAB 20 MEQ TABCR PO STA (16:57)
--- NOTE | 2021-02-19 16:59 | Hospitalist Progress Note ---
Date of Service February 19, 2021 Assessment & Plan (1) Status post cardiac pacemaker procedure: s/p permanent pacemaker placement for tachy andre symptoms by Dr Ellis on 02/16 presented with pain and discomfort at pacemaker insertion site no sign of infection noted surrounding the pacemaker site appreciate input from cardiology (2) Chest pain: symptoms has resolved, no complain of SOB or MONTIEL 2 D echo ordered for Cardiology possible musculoskeletal s/p recent pacemaker placement ? no evidence of infection or hematoma at the pacemaker site cardiac markers been negative (3) Paroxysmal A-fib: -Rate controlled with metoprolol succinate 25 mg BID (4) Mitral regurgitation: (5) Confusion: resolved . mental status at baseline - possible that IV medications in the ER caused confusion? Not on pain medication. - (6) COPD (chronic obstructive pulmonary disease): -Current tobacco user, has not smoked since Sunday, will use albuterol nebs with expiratory wheezing heard on exam -Encourage cessation of smoking at bedside (7) Tobacco abuse: -Cessation encouraged at bedside, as above, declined nicotine patch (8) Hypothyroidism: - Continue levothyroxine 88 mcg daily (9) GERD (gastroesophageal reflux disease): -cont PPI (10) Anxiety: -History of such, not on any anxiolytics (11) Gastroparesis: (12) History of laparoscopic partial gastrectomy: -History of such several years ago, using [employer] for IV infusions of vitamins and minerals as outpatient. -Chronic nausea, continue Reglan, Phenergan, dicyclomine (13) DVT prophylaxis: - teds, scds CODE: Full code Dispo:plan to discharge home in 1-2 days Admission and Anticipated Discharge Date Admission Date: February 18, 2021 Subjective patient report left sided chest pain has resolved having itching and irritation at bandage site where pacemaker site bandage removed , healing incision noted ,no swelling or drainage no complain of chest pain , no SOB , no cough Review of Systems Review of Systems: All systems reviewed & are unremarkable except as noted in Subjective Physical Exam Physical Exam: Physical exam: General: No acute distress, alert awake oriented x3 HEENT: PERRLA, EOMI, Heart: Regular S1-S2, no carotid bruit, no JVD, no lower extremity edema Lungs: Clear to auscultate, no wheeze or rales Abdomen: Soft nontender, no organomegaly Extremity: left upper chest wall pace maker site -appears to healing well ,no drainage or swelling ,no tenderness Neuro: No focal neurological deficit normal speech, normal visual field, Motor strength : normal both upper and lower extremity, sensation intact Psych: Alert awake oriented x3, normal affect Results & Data Results & Data ([facility]) Vital Signs (Past 12 Hours) Vital Signs Temp Pulse Pulse Resp BP Pulse Ox 02/19/21 15:27 36.9 C 20 113/79 95 02/19/21 11:14 36.8 C 61 18 143/98 H 94 02/19/21 09:36 68 02/19/21 07:14 36.7 C 62 18 123/86 95 02/19/21 05:04 63 15 95 (1) Hypothyroidism Hypothyroidism type: acquired Qualified Code(s): E03.9 - Hypothyroidism, unspecified (2) GERD (gastroesophageal reflux disease) Esophagitis presence: with esophagitis Qualified Code(s): K21.0 - Gastro- esophageal reflux disease with esophagitis (3) Chest pain Chest pain type: unspecified Qualified Code(s): R07.9 - Chest pain, unspecified
[2021-02-20] MEDS: oxyCODONE HCL IR 5 MG TAB (IMMEDIATE RELEASE) PO PRN ×3 (02:00→19:42)
[2021-02-20] MEDS ORDERED: HYDROmorphone INJ 0.5 MG/0.5 ML SYR IV STA (03:15)
[2021-02-20] MEDS: METOCLOPRAMIDE HCL INJ 5 MG/ML 2 ML VIAL IV PRN (04:53)
[2021-02-20] MEDS: LEVOTHYROXINE SODIUM 88 MCG TABLET PO SCH (06:08)
[2021-02-20 07:11] LABS: Hematocrit (blood only) 29.5 % (37-47); Hemoglobin 9.3 g/dL (12.0-16.0); Mean Corpuscular Hemoglobin 25.4 pg (25-34); Mean Corpuscular Hgb Conc 31.5 g/dL (32-36); Mean Corpuscular Volume 80.6 fL (80-100); Mean Platelet Volume 9.5 fL (7.4-10.4); Platelet Count 254 K/uL (130-400); RDW Coefficient of Variation 17.5 % (11.5-14.5); Red Blood Count 3.66 M/uL (4.2-5.4); White Blood Count 5.23 K/uL (4.8-10.8)
[2021-02-20 07:31] LABS: Albumin Globulin Ratio 0.9 (0.9-2); Albumin Level 2.7 gm/dl (3.4-5.0); BUN Creatinine Ratio 24.1 (10-20); Bilirubin,Total 0.3 mg/dl (0.2-1); Calcium 7.9 mg/dl (8.5-10.1); Est GFR (African American) 102.3 ml/min; Est GFR (Non-African American) 88.3 ml/min; Globulin 3.1 gm/dl (2.5-4.0); Potassium 3.4 mmol/L (3.5-5.1); Total Protein 5.8 gm/dl (6.4-8.2)
[2021-02-20] MEDS ORDERED: POTASSIUM CHLORIDE CRTAB 20 MEQ TABCR PO STA (08:07)
[2021-02-20] MEDS: POTASSIUM CHLORIDE 10 MEQ TABCR PO SCH (08:37)
[2021-02-20] MEDS: CALCIUM 600MG + VIT D 400 IU TAB PO SCH ×2 (09:33→20:46)
[2021-02-20] MEDS: METOPROLOL SUCC 25MG EXT REL TAB PO SCH ×2 (09:33→20:46)
--- NOTE | 2021-02-20 12:10 | Cardiology Progress Note ---
Date of Service February 20, 2021 Assessment & Plan (1) Left-sided chest pain: (2) Status post cardiac pacemaker procedure: (3) Syncope: (4) Paroxysmal A-fib: Her discomfort remains out of proportion to her current physical examination and recent pacer insertion. Chest x-ray has confirmed lead placement. Echocardiogram confirmed no pericardial effusion. I do not see any ischemia. Given ongoing need for pain medication would question drug-seeking behavior given that postop pacer insertion would not cause the severe pain When I notify the patient that she was okay for discharge she is very concerned about what pain medication she would be discharged on. Will defer to primary team. Okay to DC to home from a cardiac standpoint. Admission and Anticipated Discharge Date Admission Date: February 18, 2021 Subjective Patient seen and examined, chart reviewed. I awoke her from sleep but upon arousal states that she is still in severe pain? States that her entire chest hurts down into her abdomen described as a sharp stabbing pain. Telemetry reviewed: Sinus rhythm with occasional AV pacing Review of Systems Review of Systems: All systems reviewed & are unremarkable except as noted in HPI & below Physical Exam Physical Exam: General: Awake, alert and oriented x 3. No acute distress. HEENT: Normocephalic, atraumatic. Pupils equal, round and reactive to light and accommodation. Extraocular muscles are intact. Anicteric sclera. Moist mucous membranes. Neck: No JVD. No bruit. Cardiovascular: Regular. Positive S-4. Normal S-1 and S-2. No S-3. No murmurs or rubs. Pulmonary: Clear to auscultation B/L. No rales, rhonchi or wheezing Abdomen: Bowel sounds x 4, soft. No rebound, guarding or tenderness. No organomegaly. Extremities: No clubbing, cyanosis or edema. +2 pedal pulses bilaterally. Skin: Warm and dry. Results & Data ([facility]) Vital Signs (Past 12 Hours) Vital Signs Temp Pulse Pulse Resp BP Pulse Ox 02/20/21 11:30 36.8 C 64 16 145/103 H 95 02/20/21 08:20 65 02/20/21 07:56 36.7 C 60 16 148/93 H 97 02/20/21 03:55 36.4 C L 60 16 126/89 91 (1) Syncope Syncope type: unspecified Qualified Code(s): R55 - Syncope and collapse
--- NOTE | 2021-02-20 13:55 | Hospitalist Progress Note ---
Date of Service February 20, 2021 Assessment & Plan (1) Status post cardiac pacemaker procedure: s/p permanent pacemaker placement for tachy andre symptoms by Dr Ellis on 02/16 presented with pain and discomfort at pacemaker insertion site no sign of infection noted surrounding the pacemaker site appreciate input from cardiology no acute cardiac issues , possible musculoskeletal pain vs narcotic pain meds dependency avoid IV pain meds says Tylenol does not help , has PRN oxycodone (2) Chest pain: not sure of the cause , no angina , no pacemaker site complication possible musculoskeletal vs pain med seeking behaviour (3) Confusion: (4) Tobacco abuse: -Cessation encouraged at bedside, as above, declined nicotine patch (5) Hypothyroidism: - Continue levothyroxine 88 mcg daily (6) GERD (gastroesophageal reflux disease): -cont PPI (7) Gastroparesis: (8) History of laparoscopic partial gastrectomy: -History of such several years ago, using Mediport for IV infusions of vitamins and minerals as outpatient. -Chronic nausea, continue Reglan, Phenergan, dicyclomine (9) DVT prophylaxis: - toy, scds CODE: Full code Dispo:plan for dc home in am Admission and Anticipated Discharge Date Admission Date: February 18, 2021 Subjective pt continues to complain of severe sharp pain on left ant chest wall with radiation to arm 5/5 today had severe episode last night /tylenol did not help required Oxy codone fearful to go home , worried about pain coming pain and she had to return back to ER per cardiology , no active cardiac issues going on tele monitoring D/magalie cont pain control plan for dc home in am Review of Systems Review of Systems: All systems reviewed & are unremarkable except as noted in Subjective Physical Exam Physical Exam: Physical exam: General: No acute distress, alert awake oriented x3 HEENT: PERRLA, EOMI, Heart: Regular S1-S2, no carotid bruit, no JVD, no lower extremity edema Lungs: Clear to auscultate, no wheeze or rales Abdomen: Soft nontender, no organomegaly Extremity: left upper chest wall pace maker site -appears to healing well ,no drainage or swelling ,no tenderness Neuro: No focal neurological deficit normal speech, normal visual field, Motor strength : normal both upper and lower extremity, sensation intact Psych: Alert awake oriented x3, normal affect Results & Data Results & Data ([facility]) Vital Signs (Past 12 Hours) Vital Signs Temp Pulse Pulse Resp BP Pulse Ox 02/20/21 11:30 36.8 C 64 16 145/103 H 95 02/20/21 08:20 65 02/20/21 07:56 36.7 C 60 16 148/93 H 97 02/20/21 03:55 36.4 C L 60 16 126/89 91 (1) Chest pain Chest pain type: unspecified Qualified Code(s): R07.9 - Chest pain, unspecified (2) Hypothyroidism Hypothyroidism type: acquired Qualified Code(s): E03.9 - Hypothyroidism, unspecified (3) GERD (gastroesophageal reflux disease) Esophagitis presence: with esophagitis Qualified Code(s): K21.0 - Gastro- esophageal reflux disease with esophagitis
[2021-02-20] MEDS ORDERED: PROMETHAZINE HCL 25 MG TAB PO PRN (15:58)
[2021-02-20] MEDS: METOCLOPRAMIDE HCL 10 MG TABLET PO SCH ×2 (16:58→20:45)
[2021-02-20] MEDS: ALBUTEROL 0.083% NEBU SOLN 3 ML VIAL NEB PRN (18:19)
[2021-02-20] MEDS: PANTOprazole 40 MG TAB PO SCH (20:46)
[2021-02-20] MEDS ORDERED: MULTIVITAMIN TAB PO SCH (21:00)
[2021-02-21] MEDS: ALBUTEROL 0.083% NEBU SOLN 3 ML VIAL NEB PRN (01:33)
[2021-02-21] MEDS: LEVOTHYROXINE SODIUM 88 MCG TABLET PO SCH (05:41)
[2021-02-21] MEDS: oxyCODONE HCL IR 5 MG TAB (IMMEDIATE RELEASE) PO PRN ×2 (05:41)
[2021-02-21 06:37] LABS: BUN Creatinine Ratio 16.6 (10-20); Creatinine Clr Calc Pharmacy 74.7 ml/min; Est GFR (African American) 87.6 ml/min; Est GFR (Non-African American) 75.6 ml/min; Potassium 3.7 mmol/L (3.5-5.1)
[2021-02-21] MEDS: ACETAMINOPHEN 325 MG TAB PO PRN (09:01)
[2021-02-21] MEDS: METOPROLOL SUCC 25MG EXT REL TAB PO SCH (09:02)
[2021-02-21] MEDS: PANTOprazole 40 MG TAB PO SCH (09:02)
[2021-02-21] MEDS: METOCLOPRAMIDE HCL 10 MG TABLET PO SCH ×2 (09:02→13:32)
[2021-02-21] MEDS: CALCIUM 600MG + VIT D 400 IU TAB PO SCH (09:02)
[2021-02-21] MEDS: POTASSIUM CHLORIDE 10 MEQ TABCR PO SCH (09:02)
--- NOTE | 2021-02-21 11:48 | Hospitalist Progress Note ---
Date of Service February 21, 2021 Assessment & Plan (1) Status post cardiac pacemaker procedure: s/p permanent pacemaker placement for tachy andre symptoms by Dr Ellis on 02/16 presented with pain and discomfort at pacemaker insertion site no sign of infection noted surrounding the pacemaker site appreciate input from cardiology no acute cardiac issues , possible musculoskeletal pain vs narcotic pain meds dependency Patient was observed overnight, States her pain discomfort on left anterior chest wall has resolved, feels comfortable to go home Patient is instructed to continue to follow the post pacemaker insertion activity limitation /not to lift left arm above shoulder as per directed Patient verbalized understanding (2) Chest pain: , no angina , no pacemaker site complication possible musculoskeletal Symptom has resolved, stable to be discharged home today (3) Tobacco abuse: -Cessation encouraged at bedside, as above, declined nicotine patch (4) Hypothyroidism: - Continue levothyroxine 88 mcg daily (5) GERD (gastroesophageal reflux disease): -cont PPI (6) Gastroparesis: (7) History of laparoscopic partial gastrectomy: -History of such several years ago, using Mediport for IV infusions of vitamins and minerals as outpatient. - does not have any complaint of nausea vomiting tolerating diet continue Reglan, Phenergan, dicyclomine (8) DVT prophylaxis: - teds, scds CODE: Full code Dispo: Patient is discharged home Admission and Anticipated Discharge Date Admission Date: February 20, 2021 Subjective Follow-up visit for chest pain: Noncardiac, Patient reports resolution of left chest wall pain, no radiation down to left arm No shortness of breath no dyspnea on exertion, no fever or chills Feels comfortable to be discharged home today Review of Systems Review of Systems: All systems reviewed & are unremarkable except as noted in Subjective Physical Exam Physical Exam: Physical exam: General: No acute distress, alert awake oriented x3 HEENT: PERRLA, EOMI, Heart: Regular S1-S2, no carotid bruit, no JVD, no lower extremity edema Lungs: Clear to auscultate, no wheeze or rales Abdomen: Soft nontender, no organomegaly Extremity: left upper chest wall pace maker site -appears to healing well ,no drainage or swelling ,no tenderness Neuro: No focal neurological deficit normal speech, normal visual field, Motor strength : normal both upper and lower extremity, sensation intact Psych: Alert awake oriented x3, normal affect Results & Data Results & Data ([facility]) Vital Signs (Past 12 Hours) Vital Signs Temp Pulse Resp BP Pulse Ox 02/21/21 09:12 36.7 C 72 18 129/84 96 02/21/21 01:33 56 L 18 96 (1) Chest pain Chest pain type: unspecified Qualified Code(s): R07.9 - Chest pain, unspecified (2) Hypothyroidism Hypothyroidism type: acquired Qualified Code(s): E03.9 - Hypothyroidism, unspecified (3) GERD (gastroesophageal reflux disease) Esophagitis presence: with esophagitis Qualified Code(s): K21.0 - Gastro- esophageal reflux disease with esophagitis
[2021-02-21] MEDS ORDERED: oxyCODONE HCL IR 5 MG TAB (IMMEDIATE RELEASE) PO PRN (11:55)
--- NOTE | 2021-02-21 14:45 | Discharge Summary ---
Date of Service February 21, 2021 Admission HPI Per Admitting Provider This is a 60-year-old female who has past medical history of tachybradycardia syndrome recently undergoing pacemaker placement on 02/16/[address] Ellis. After going home she did not quite feel herself and was surprised that she was discharged. She lives at home with her brother who has been helping her to basic things around the house. Earlier today she developed substernal chest pain which migrated to left chest pain, which then radiated to her left arm and neck. She use nauseous due to gastroparesis, but reports that this is a daily occurrence, and no worse than normal. Patient had COVID-19 infection in August and has overall not felt back to her normal self since then. She has not received vaccine. She appears to be slightly confused with saying phrases that don't make sense when asked a question at times, and answers " I don't know" to many of my questions. Other past medical history includes paroxysmal A. fib, mitral regurg, prolonged QT interval, COPD, CKD stage III, anemia, hypothyroidism, gastroparesis s/p partial gastrectomy, for which she has a right subclavian port in place for infusions, tobacco use disorder, GERD, and MDD. Troponin found to be 0.149, DVT was assessed in her bilateral lower extremities and is negative, EKG is negative for ST wave inversions or signs of acute ischemia. She is noted to have low potassium at 3.2, which will be replaced. Will trend troponins. Principal Diagnosis Chest pain: No acute coronary event. Hypokalemia Status post cardiac pacemaker Discharge Exam General- oriented x 3, not in distress, speaks in sentences with no effort or accessory muscle use Eyes- anicteric Neck- no JVD Lungs- clear breath sounds bilaterally, no rales/wheezes Heart- normal rate, regular rhythm; no murmurs Pacemaker site healing well, no surrounding erythema/no swelling, no discharge Abdomen- normal bowel sounds, nondistended, soft, nontender Extremities- no pretibial edema, no calf tenderness Neuro- alert, oriented x 3; no gross focal neurologic deficits Skin- warm & dry Discharge Data Allergies Allergy/AdvReac Type Severity Reaction Status Date / Time adhesive Allergy Mild SKIN Verified 02/16/21 07:12 IRRITATION amoxicillin AdvReac Intermediate yeast Verified 02/16/21 07:12 infection lactose AdvReac Intermediate Gastrointestinal Verified 02/16/21 07:12 Upset NSAIDS (Non-Steroidal AdvReac Mild indegestion Verified 02/16/21 07:12 Anti-Inflamma rofecoxib AdvReac Mild indigestion Verified 02/16/21 07:12 scopolamine AdvReac Mild rash from Verified 02/16/21 07:12 patch Consultations 02/18/21 17:03 ED Decision to Admit Stat Ordered Studies 02/18/21 14:51 US venous doppler UE LT Stat Hospital Course (1) Status post cardiac pacemaker procedure: s/p permanent pacemaker placement for tachy andre symptoms by Dr Ellis on 02/16 presented with pain and discomfort at pacemaker insertion site no sign of infection noted surrounding the pacemaker site appreciate input from cardiology no acute cardiac issues , possible musculoskeletal pain vs narcotic pain meds dependency Patient was observed overnight, States her pain discomfort on left anterior chest wall has resolved, feels comfortable to go home Patient is instructed to continue to follow the post pacemaker insertion activity limitation /not to lift left arm above shoulder as per directed Patient verbalized understanding (2) Chest pain: , no angina , no pacemaker site complication possible musculoskeletal Symptom has resolved, stable to be discharged home today (3) Tobacco abuse: -Cessation encouraged at bedside, as above, declined nicotine patch (4) Hypothyroidism: - Continue levothyroxine 88 mcg daily (5) GERD (gastroesophageal reflux disease): -cont PPI (6) Gastroparesis: (7) History of laparoscopic partial gastrectomy: -History of such several years ago, using Mediport for IV infusions of vitamins and minerals as outpatient. - does not have any complaint of nausea vomiting tolerating diet continue Reglan, Phenergan, dicyclomine (8) DVT prophylaxis: - teds, scds CODE: Full code Dispo: Patient is discharged home Total Time Total Time Spent Total Time Spent (In Minutes): 3 5 minutes Total Time Includes: Examination of the Patient, Discharge Planning and Medication Reconciliation Discharge Plan Discharge Items Patient Disposition: Home - Self-Care Reason For Visit: CHEST PAIN, ELEVATED TROP Discharge Diagnosis: Chest pain: No acute coronary event. Hypokalemia Status post cardiac pacemaker Activity: Resume your previous activity Non-emergency contact: Primary Care Provider Call non-emergency contact if: you have any medication questions Follow-up/Referrals: Jaleel Coppola MD [Primary Care Provider] - Diet: Heart Healthy Addtl Attending Provider Instructions: Please take all medications as instructed on discharge list below. It is recommended that you follow-up with your primary care physician within 1-2 weeks of hospital discharge to ensure you are still doing well. Please call if you have any questions or problems. You can reach a [facility] hospitalist on duty at [facility] 24 hours a day by calling [phone] Pending Studies at Discharge: No Stand-Alone Forms: My [facility], Smoking Cessation Medications and DC Order Prescriptions: New Caltrate 600-D Plus Minerals 600 mg calcium- 800 unit-50 mg Tablet 1 tab PO DAILY Qty: 0 RF: 0 Continued multivitamin Tablet 1 tab PO HS RF: 0 dicyclomine 10 mg capsule 10 mg PO BID PRN (Reason: Abdominal Discomfort) RF: 0 pantoprazole 40 mg Tablet,Delayed Release (Dr/Ec) 40 mg PO BID Qty: 60 RF: 0 acetaminophen [Tylenol Extra Strength] 500 mg Tablet 1,000 mg PO Q6H PRN (Reason: Fever Or Pain) Qty: 60 RF: 0 levothyroxine [Synthroid] 88 mcg tablet 88 mcg PO QAM Qty: 30 RF: 0 promethazine 25 mg tablet 25 mg PO Q6H PRN (Reason: Nausea) RF: 0 metoclopramide HCl 10 mg tablet 10 mg PO TID RF: 0 metoprolol succinate 25 mg tablet extended release 24 hr 25 mg PO BID RF: 0 Discharge Orders: Discharge Order (Routine); Ordered 02/21/21 Ordered By: Theodora Mohr Admission Data Admit Date/Time: 02/20/21 13:47 Attending Provider: Theodora Mohr Admit Provider: Theodora Mohr Primary Care Provider: Jaleel Coppola Other Providers: Theodora Mohr Other Interventions: Discharge Summary Assessment (RN) Last Done: 02/21/21 14:14
--- NOTE | 2021-02-28 10:39 | Coding Query ---
A supporting diagnosis is required for the test/procedure performed on this patient in order for us to be reimbursed by the patient's insurance. Please provide a supporting diagnosis for the following test/procedure listed below next to the test name along with your signature. *If there is no additional diagnosis for this patient that would support the following test/procedure please document that below next to the test/procedure. Test(s)/Procedure(s) that require a supporting diagnosis: * [id number] ALTEPLASE, RECOMBINANT DIAGNOSIS: To flush the blocked central line DATE OF SERVICE: 02/19/21 Provider Signaturer Leandro tamez Date: __03/08/21 Thank you [facility] Information Management Once completed, please kindly fax back to [phone] For questions please call [phone] [facility]
== END 2021-02-21 15:29 | disposition home or self-care (01) ==
LOC: 2S 14:16 → ED 14:16 → 2S 20:08 → 3W 02-20 16:09

== ENCOUNTER 2021-10-02 19:44 | Observation (INO) ==
[2021-10-02] MEDS ORDERED: ONDANSETRON INJ 2 MG/ML 2 ML VIAL IV STA (20:16)
[2021-10-02] MEDS ORDERED: FAMOTIDINE 20MG IV PUSH 20 MG/5 ML SYR IV STA (20:16)
[2021-10-02] MEDS ORDERED: ACETAMINOPHEN 1,000 MG/100 ML VIAL IV STA (20:16)
[2021-10-02] MEDS ORDERED: guaiFENesin 600 MG TABCR PO STA (20:16)
[2021-10-02] MEDS ORDERED: SODIUM CHLORIDE 0.9% 1000ML 1,000 ML IV ONE (20:17)
[2021-10-02] MEDS ORDERED: ALBUTEROL HFA 8 GM INHALER INH ONE (20:17)
--- NOTE | 2021-10-02 20:24 | Emergency Department Note ---
Impression & Plan COVID-19, Hypokalemia, Hypomagnesemia, Hypophosphatemia ED Provider Note NAME: JACY FLEMING AGE: 61 SEX: F ARRIVES VIA: Ambulance INFORMANT: Patient ED PROVIDER(S): Russell Guadarrama MD CHIEF COMPLAINT: weakness, sob, cough. PLAN: Disposition: Admit MEDICAL DECISION MAKING: The patient is a pleasant 61-year-old woman with a past medical history of g astroparesis, hypertension, paroxysmal atrial fibrillation, hypothyroidism, asthma, COPD who presents to the emergency department from home via EMS for body aches, feverishness, cough, congestion, nausea over the past several days. Patient denies any known COVID-19 exposures. She is not vaccinated for COVID- 19. She reports she had COVID-19 a year ago. Per EMS the patient's O2 saturation at home was 98% on room air. On arrival the patient uncomfortable, chronically ill-appearing but no acute distress, afebrile with stable vital signs. O2 saturation 95% and greater on RA. She appears clinically dry. Lungs with scant intermittent wheeze and rhonchi. EKG without overt acute ischemia. CXR negative for acute cardiopulmonary process. WBC, H/H, platelets wnl. Chemistry without acidosis. Potassium 2.5, Mg 1.4 and phosphorus 1.4 with repletion initiated. LFTs without significant abnormality. Troponin negative/undetectable. BNP 1000, nonspecific. Lipase is not elevated. Covid-19 PCR was positive. Influenza and RSV PCR negative. Given electrolyte abnormalities and symptoms patient agrees with plan for admission. Case was discussed with Dr. Gusman, [facility] hospitalist, who will evaluate the patient for admission. Triage Nursing notes reviewed and agree them. Prior medical records reviewed Vital Signs: reviewed and remarkable for no significant abnormalities Differential diagnosis: Viral syndrome, otitis, pharyngitis, pneumonia, influenza, meningitis, urinary tract infection, sepsis, bacteremia, as well as other pathologies. ER treatment provided: Infection, dehydration, metabolic abnormality, hypo/hyperglycemia, electrolyte disturbance, anemia, hypoxia, cardiac sources, intracerebral event, toxicologic, neurologic, as well as other pathologies. Diagnostics interpreted by me: ECG: Sinus rhythm, 87 bpm, pacs, TWA, incomplete RBBB, no overt ST elevation or depression. Cardiac Monitoring: An order for continuous cardiac monitoring was placed and demonstrated sinus rhythm, 87 bpm, pacs. Laboratory studies: See below Imaging studies: See below Consultation(s): Case was discussed with Dr. Gusman, [facility] hospitalist, who will evaluate the patient for admission. HPI: The patient is a pleasant 61-year-old woman with a past medical history of gastroparesis, hypertension, paroxysmal atrial fibrillation, hypothyroidism, asthma, COPD who presents to the emergency department from home via EMS for body aches, feverishness, cough, congestion, nausea over the past several days. Patient denies any known COVID-19 exposures. She is not vaccinated for COVID- 19. She reports she had COVID-19 a year ago. Per EMS the patient's O2 saturation at home was 98% on room air. ROS: See above HPI for pertinent positives & negatives. A total of 10 systems reviewed and were otherwise negative. PAST MEDICAL HISTORY:See Below PAST SURGICAL HISTORY:See Below FAMILY HISTORY:See Below SOCIAL HISTORY:See Below HOME MEDICATIONS:See Below ALLERGIES:See Below VITALS:See Below PHYSICAL EXAMINATION: GENERAL: Awake, alert, fatigued/chronically ill-appearing, in no distress, BMI 33 Kg/m2 HENT: Normocephalic, atraumatic. Oropharynx with dry mucous membranes and ot herwise unremarkable. EYES: Normal conjunctiva. Sclera non-icteric. NECK: Supple. No nuchal rigidity. FROM. No JVD. RESPIRATORY: Scant intermittent wheeze and rhonchi. CARDIAC: Regular rate, normal rhythm. Extremities warm and well perfused. Pulses equal. ABDOMEN: Soft, non-distended. No tenderness to palpation. No rebound or guarding. No masses. RECTAL: Deferred. MUSCULOSKELETAL: Chest examination reveals no tenderness. The back is symmetrical on inspection without obvious abnormality. There is no CVA tenderness to palpation. No joint edema. LOWER EXTREMITIES: Calves are equal size bilaterally and non-tender. No edema. No discoloration. NEURO: Normal sensorium. No sensory or motor deficits noted. SKIN: No rash or jaundice noted. Russell Guadarrama MD Past Med/Surg History Medical History Acidosis, lactic Anxiety Asthma COPD (chronic obstructive pulmonary disease) COVID-19 Depression Diverticulosis Frequent PVCs GERD (gastroesophageal reflux disease) H/O irritable bowel syndrome HTN (hypertension) Hypomagnesemia Hypothyroidism Intractable nausea and vomiting Mitral regurgitation "moderate per echo 09/21/15" Neuropathy Paroxysmal A-fib Pemphigus vulgaris Prolonged QT interval Tobacco abuse Surgical History History of bladder surgery History of laparoscopic partial gastrectomy History of pyloroplasty History of total hysterectomy Hx of cholecystectomy Hx of tonsillectomy S/P hysterectomy S/P laparoscopic sleeve gastrectomy S/P partial gastrectomy S/P repair of paraesophageal hernia "resulted in volvulus, required abdominal exploration" S/P tonsillectomy and adenoidectomy Family History Mother DM type 2 (diabetes mellitus, type 2) Coronary heart disease Social History Smoking Status: Current every day smoker Tobacco Type: Cigarettes Cigarettes Per Day: 1 ppd; Second Hand Exposure: No; Hx Alcohol Use: Yes Alcohol type: beer Alcohol Intake Frequency Comment: 3-4 beers/week Hx Substance Use: No Preferred Language: Cambodian Communication Ability: Effective Office Worker Required: Voice Beliefs That Will Affect Care: None marital status: / Current Living Situation: Family Current Living Situation Comment: Pt lives with brother Feels Safe at Home: Yes Assistive Devices: None Allergies Allergies Allergy/AdvReac Type Severity Reaction Status Date / Time adhesive Allergy Mild POWERS SKIN Verified 10/02/21 20:16 capsaicin Allergy Mild ITCHINESS Verified 10/02/21 20:16 amoxicillin AdvReac Intermediate yeast Verified 10/02/21 20:16 infection lactose AdvReac Intermediate Gastrointestinal Verified 10/02/21 20:16 Upset NSAIDS (Non-Steroidal AdvReac Mild indegestion Verified 10/02/21 20:16 Anti-Inflamma rofecoxib AdvReac Mild indigestion Verified 10/02/21 20:16 scopolamine AdvReac Mild rash from Verified 10/02/21 20:16 patch Home Meds Home Medications Medication Instructions Recorded Confirmed dicyclomine 10 mg capsule 10 mg PO BID PRN 12/17/19 10/02/21 metoclopramide HCl 10 mg tablet 10 mg PO TID 09/30/20 10/02/21 promethazine 25 mg tablet 25 mg PO Q6H PRN 09/30/20 10/02/21 metoprolol succinate 25 mg See Rx Instructions .ROUTE .COMPLEX 02/16/21 10/02/21 tablet,extended release 24 hr apixaban 5 mg tablet (Eliquis) 5 mg PO BID 10/02/21 10/02/21 cyanocobalamin (vitamin B-12) 1,000 mcg PO DAILY 10/02/21 10/02/21 1,000 mcg tablet (Vitamin B-12) vitamins-iron fumarate 65 1 tab PO HS 10/02/21 10/02/21 mg iron-folic acid 1 mg tablet Previous Rx's Medication Instructions Recorded pantoprazole 40 mg tablet,delayed 40 mg PO BID #60 tab 12/10/19 release acetaminophen 500 mg tablet 1,000 mg PO Q6H PRN #60 tab 12/16/19 (Tylenol Extra Strength) levothyroxine 88 mcg tablet 88 mcg PO QAM #30 tab 12/16/19 (Synthroid) Results & Data (ED) Vital Signs Vital Signs - 24 hr 10/02/21 20:15 10/02/21 20:18 10/02/21 20:20 Temperature 37.8 C H Temperature Source Oral Pulse Rate 85 89 84 Pulse Rate [Apical] Pulse Rate from SpO2 Sensor 81 78 Pulse Rhythm [Apical] Pulse Strength [Apical] Respiratory Rate 15 18 20 Respiratory Effort / Characteristics Respiratory Depth Respiratory Pattern Blood Pressure 136/86 Blood Pressure [Left Arm] Blood Pressure Mean 102 Blood Pressure Mean [Left Arm] Blood Pressure Position Sitting Pulse Oximetry 96 96 96 Oxygen Delivery Method Room Air Sepsis Recent Fever Within 48 Hours No Sepsis New/Unexplained Change in Mental Status N/A Sepsis Action Taken by Nursing No Action Required 10/02/21 20:26 10/02/21 20:30 10/02/21 20:40 Temperature Temperature Source Pulse Rate 86 88 Pulse Rate [Apical] Pulse Rate from SpO2 Sensor Pulse Rhythm [Apical] Pulse Strength [Apical] Respiratory Rate 19 28 H Respiratory Effort / Characteristics Respiratory Depth Respiratory Pattern Blood Pressure 138/96 Blood Pressure [Left Arm] Blood Pressure Mean 110 Blood Pressure Mean [Left Arm] Blood Pressure Position Pulse Oximetry 96 Oxygen Delivery Method Room Air Sepsis Recent Fever Within 48 Hours Sepsis New/Unexplained Change in Mental Status Sepsis Action Taken by Nursing 10/02/21 20:50 10/02/21 21:00 10/02/21 21:10 Temperature Temperature Source Pulse Rate 86 101 H 80 Pulse Rate [Apical] Pulse Rate from SpO2 Sensor Pulse Rhythm [Apical] Pulse Strength [Apical] Respiratory Rate 16 25 H 23 Respiratory Effort / Characteristics Respiratory Depth Respiratory Pattern Blood Pressure 131/87 Blood Pressure [Left Arm] Blood Pressure Mean 101 Blood Pressure Mean [Left Arm] Blood Pressure Position Pulse Oximetry Oxygen Delivery Method Sepsis Recent Fever Within 48 Hours Sepsis New/Unexplained Change in Mental Status Sepsis Action Taken by Nursing 10/02/21 21:20 10/02/21 21:30 10/02/21 21:40 Temperature Temperature Source Pulse Rate 75 85 79 Pulse Rate [Apical] Pulse Rate from SpO2 Sensor Pulse Rhythm [Apical] Pulse Strength [Apical] Respiratory Rate 21 12 19 Respiratory Effort / Characteristics Respiratory Depth Respiratory Pattern Blood Pressure 126/86 Blood Pressure [Left Arm] Blood Pressure Mean 99 Blood Pressure Mean [Left Arm] Blood Pressure Position Pulse Oximetry Oxygen Delivery Method Sepsis Recent Fever Within 48 Hours Sepsis New/Unexplained Change in Mental Status Sepsis Action Taken by Nursing 10/02/21 21:50 10/02/21 22:00 10/02/21 22:10 Temperature Temperature Source Pulse Rate 70 81 78 Pulse Rate [Apical] Pulse Rate from SpO2 Sensor Pulse Rhythm [Apical] Pulse Strength [Apical] Respiratory Rate 21 12 22 Respiratory Effort / Characteristics Respiratory Depth Respiratory Pattern Blood Pressure 122/77 Blood Pressure [Left Arm] Blood Pressure Mean 92 Blood Pressure Mean [Left Arm] Blood Pressure Position Pulse Oximetry Oxygen Delivery Method Sepsis Recent Fever Within 48 Hours Sepsis New/Unexplained Change in Mental Status Sepsis Action Taken by Nursing 10/02/21 22:20 10/02/21 22:30 10/02/21 22:40 Temperature Temperature Source Pulse Rate 77 72 70 Pulse Rate [Apical] Pulse Rate from SpO2 Sensor Pulse Rhythm [Apical] Pulse Strength [Apical] Respiratory Rate 18 17 16 Respiratory Effort / Characteristics Respiratory Depth Respiratory Pattern Blood Pressure 113/83 Blood Pressure [Left Arm] Blood Pressure Mean 93 Blood Pressure Mean [Left Arm] Blood Pressure Position Pulse Oximetry Oxygen Delivery Method Sepsis Recent Fever Within 48 Hours Sepsis New/Unexplained Change in Mental Status Sepsis Action Taken by Nursing 10/02/21 23:00 Temperature Temperature Source Pulse Rate Pulse Rate [Apical] 68 Pulse Rate from SpO2 Sensor Pulse Rhythm [Apical] Regular Pulse Strength [Apical] Normal Respiratory Rate 16 Respiratory Effort / Characteristics Non-Labored Spontaneous Respiratory Depth Normal Respiratory Pattern Regular Blood Pressure Blood Pressure [Left Arm] 124/90 Blood Pressure Mean Blood Pressure Mean [Left Arm] 101 Blood Pressure Position Pulse Oximetry 95 Oxygen Delivery Method Room Air Sepsis Recent Fever Within 48 Hours Sepsis New/Unexplained Change in Mental Status Sepsis Action Taken by Nursing Laboratory Data Attestation: I reviewed the patient's lab results. Result diagrams: 10/03/21 05:07 10/03/21 05:07 Lab Results 10/02/21 10/02/21 10/02/21 Range/Units 20:16 20:16 20:16 WBC 7.06 (4.8-10.8) K/uL RBC 3.81 L (4.2-5.4) M/uL Hgb 9.8 L (12.0-16.0) g/dL Hct 31.0 L (37-47) % MCV 81.4 (80-100) fL MCH 25.7 (25-34) pg MCHC 31.6 L (32-36) g/dL RDW Std Deviation 51.6 H (36.4-46.3) fL RDW Coeff of Ana M 17.4 H (11.5-14.5) % Plt Count 183 (130-400) K/uL MPV 9.6 (7.4-10.4) fL Immature Gran % (Auto) 0.3 % Neut % (Auto) 73.9 % Lymph % (Auto) 14.0 % Sutter % (Auto) 11.3 % Eos % (Auto) 0.4 % Baso % (Auto) 0.1 % Neut # (Auto) 5.21 (1.4-6.5) K/uL Lymph # (Auto) 0.99 L (1.2-3.4) K/uL Sutter # (Auto) 0.80 H (0.11-0.59) K/uL Eos # (Auto) 0.03 (0-0.5) K/uL Baso # (Auto) 0.01 (0-0.2) K/uL Immature Gran # (Auto) 0.02 (0.00-0.02) K/uL PT 10.8 (9.0-12.0) Seconds INR 1.1 (0.9-1.1) Sodium 143 (136-145) mmol/L Potassium 2.5 L* (3.5-5.1) mmol/L Chloride 113 H (98-107) mmol/L Carbon Dioxide 21 (21-32) mmol/L Anion Gap 9.0 (3-11) BUN 9 (7-18) mg/dl Creatinine 0.74 (0.6-1.2) mg/dl Est Cr Clr Drug Dosing 86.2 ml/min Est GFR ( Amer) 99.9 ml/min Est GFR (Non-Af Amer) 86.2 ml/min BUN/Creatinine Ratio 12.3 (10-20) Glucose 98 (70-99) mg/dl Calcium 6.7 L (8.5-10.1) mg/dl Phosphorus 1.4 L* (2.5-4.9) mg/dl Magnesium 1.4 L (1.8-2.4) mg/dl Total Bilirubin 0.3 (0.2-1) mg/dl AST 11 L (15-37) U/L ALT 9 L (12-78) Alkaline Phosphatase 74 (45-117) U/L Troponin I < 0.015 (0-0.045) ng/ml NT-Pro-B Natriuret Pep 1005 H (0-900) pg/ml Total Protein 5.8 L (6.4-8.2) gm/dl Albumin 2.5 L (3.4-5.0) gm/dl Globulin 3.3 (2.5-4.0) gm/dl Albumin/Globulin Ratio 0.8 L (0.9-2) Lipase 73 (73-393) U/L SARS-CoV-2 (PCR) (Negative) Influenza Type A (PCR) (Neg) Influenza Type B (PCR) (Neg) RSV (RT-PCR) (Neg) 10/02/21 Range/Units 20:38 WBC (4.8-10.8) K/uL RBC (4.2-5.4) M/uL Hgb (12.0-16.0) g/dL Hct (37-47) % MCV (80-100) fL MCH (25-34) pg MCHC (32-36) g/dL RDW Std Deviation (36.4-46.3) fL RDW Coeff of Ana M (11.5-14.5) % Plt Count (130-400) K/uL MPV (7.4-10.4) fL Immature Gran % (Auto) % Neut % (Auto) % Lymph % (Auto) % Sutter % (Auto) % Eos % (Auto) % Baso % (Auto) % Neut # (Auto) (1.4-6.5) K/uL Lymph # (Auto) (1.2-3.4) K/uL Sutter # (Auto) (0.11-0.59) K/uL Eos # (Auto) (0-0.5) K/uL Baso # (Auto) (0-0.2) K/uL Immature Gran # (Auto) (0.00-0.02) K/uL PT (9.0-12.0) Seconds INR (0.9-1.1) Sodium (136-145) mmol/L Potassium (3.5-5.1) mmol/L Chloride (98-107) mmol/L Carbon Dioxide (21-32) mmol/L Anion Gap (3-11) BUN (7-18) mg/dl Creatinine (0.6-1.2) mg/dl Est Cr Clr Drug Dosing ml/min Est GFR ( Amer) ml/min Est GFR (Non-Af Amer) ml/min BUN/Creatinine Ratio (10-20) Glucose (70-99) mg/dl Calcium (8.5-10.1) mg/dl Phosphorus (2.5-4.9) mg/dl Magnesium (1.8-2.4) mg/dl Total Bilirubin (0.2-1) mg/dl AST (15-37) U/L ALT (12-78) Alkaline Phosphatase (45-117) U/L Troponin I (0-0.045) ng/ml NT-Pro-B Natriuret Pep (0-900) pg/ml Total Protein (6.4-8.2) gm/dl Albumin (3.4-5.0) gm/dl Globulin (2.5-4.0) gm/dl Albumin/Globulin Ratio (0.9-2) Lipase (73-393) U/L SARS-CoV-2 (PCR) POSITIVE A* (Negative) Influenza Type A (PCR) Negative (Neg) Influenza Type B (PCR) Negative (Neg) RSV (RT-PCR) Negative (Neg) Administered Medications Guaifenesin/Codeine Phosphate (Guaifenesin/Codeine 100mg/10mg 5ml Udc) 5 ml PO Q6H PRN PRN Reason: Cough Stop: 11/02/21 06:17 Last Admin: 10/03/21 06:26 Dose: 5 ml Documented by: [id number] Dextrose/Sodium Chloride (D5w And 1/2nss) 1,000 mls @ 100 mls/hr IV .Q10H RUSSELL Stop: 11/01/21 23:53 Last Admin: 10/03/21 00:13 Dose: 100 mls/hr Documented by: [id number] Potassium Phosphate 21 mmol/ (Sodium Chloride) 507 mls @ 145 mls/hr IV 0345 ONE Stop: 10/03/21 07:14 Last Admin: 10/03/21 04:53 Dose: 145 mls/hr Documented by: [id number] Levalbuterol HCl (Levalbuterol Hcl 1.25 Mg/3 Ml Neb) 1.25 mg NEB Q4H PRN; Protocol PRN Reason: Shortness Of Breath Or Wheezing Stop: 11/02/21 03:44 Last Admin: 10/03/21 04:12 Dose: 1.25 mg Documented by: [id number] Levothyroxine Sodium (Levothyroxine Sodium 88 Mcg Tablet) 88 mcg PO DAILYBB [facility] Stop: 11/02/21 06:29 Last Admin: 10/03/21 06:26 Dose: 88 mcg Documented by: [id number] Discontinued Medications Albuterol (Albuterol Hfa 8 Gm Inhaler) 2 puffs INH NOW ONE Stop: 10/02/21 20:18 Last Admin: 10/02/21 20:56 Dose: 2 puffs Documented by: [id number] Guaifenesin (Guaifenesin 600 Mg Tabcr) 600 mg PO NOW STA Stop: 10/02/21 20:17 Last Admin: 10/02/21 20:56 Dose: 600 mg Documented by: [id number] Acetaminophen (Ofirmev) 1,000 mg in 100 mls @ 400 mls/hr IV NOW STA Stop: 10/02/21 20:30 Last Infusion: 10/02/21 21:23 Dose: 0 mls/hr Documented by: [id number] Admin: 10/02/21 20:56 Dose: 400 mls/hr Documented by: [id number] Famotidine (Pepcid 20mg Iv Push) 20 mg in 5 mls @ 2.5 mls/min IV NOW STA Stop: 10/02/21 20:17 Last Admin: 10/02/21 20:56 Dose: 2.5 mls/min Documented by: [id number] Sodium Chloride (Nss 1000ml) 1,000 mls @ 999 mls/hr IV .Q1H1M ONE Stop: 10/02/21 21:17 Last Infusion: 10/02/21 22:30 Dose: 0 mls/hr Documented by: [id number] Admin: 10/02/21 20:56 Dose: 999 mls/hr Documented by: [id number] Potassium Chloride (K James / Wtr) 10 meq in 100 mls @ 100 mls/hr IV Q1H RUSSELL; Protocol Stop: 10/02/21 22:59 Last Infusion: 10/02/21 23:02 Dose: 0 mls/hr Documented by: [id number] Admin: 10/02/21 22:27 Dose: 100 mls/hr Documented by: [id number] Infusion: 10/02/21 22:27 Dose: 100 mls/hr Documented by: [id number] Admin: 10/02/21 21:30 Dose: 100 mls/hr Documented by: [id number] Magnesium Sulfate/Dextrose (Magnesium Sulfate / D5w) 1 gm in 100 mls @ 100 mls/hr IV Q1H RUSSELL Stop: 10/02/21 22:59 Last Infusion: 10/02/21 22:28 Dose: 0 mls/hr Documented by: [id number] Admin: 10/02/21 22:02 Dose: 100 mls/hr Documented by: [id number] Infusion: 10/02/21 22:02 Dose: 100 mls/hr Documented by: [id number] Admin: 10/02/21 21:29 Dose: 100 mls/hr Documented by: [id number] Potassium Phosphate 9 mmol/ (Sodium Chloride) 253 mls @ 170 mls/hr IV 2200 ONE Stop: 10/02/21 23:29 Last Infusion: 10/03/21 00:15 Dose: 0 mls/hr Documented by: [id number] Admin: 10/02/21 22:39 Dose: 170 mls/hr Documented by: [id number] Magnesium Sulfate/Dextrose (Magnesium Sulfate / D5w) 1 gm in 100 mls @ 50 mls/hr IV Q2H STA Stop: 10/03/21 01:22 Last Admin: 10/02/21 23:54 Dose: Not Given Documented by: [id number] Calcium Gluconate 1,000 mg/ (Sodium Chloride) 60 mls @ 240 mls/hr IV 0400 ONE Stop: 10/03/21 04:14 Last Infusion: 10/03/21 04:50 Dose: 0 mls/hr Documented by: [id number] Admin: 10/03/21 04:34 Dose: 240 mls/hr Documented by: [id number] Ondansetron HCl (Ondansetron Inj 2 Mg/Ml 2 Ml Vial) 4 mg IV NOW STA Stop: 10/02/21 20:17 Last Admin: 10/02/21 20:56 Dose: 4 mg Documented by: [id number] Potassium Chloride (Potassium Chloride 20 Meq/15 Ml Udc) 40 meq PO NOW STA Stop: 10/02/21 23:24 Last Admin: 10/02/21 23:57 Dose: 40 meq Documented by: [id number] Potassium Phosphate (Potassium Phos 3 Mmol/1 Ml Infusion) 9 mmol IV NOW STA Stop: 10/02/21 21:46 Last Admin: 10/02/21 22:03 Dose: Not Given Documented by: [id number] Imaging Data Radiologist's Impression: Chest X-Ray 10/02/21 20:16 XR chest 1V portable CLINICAL HISTORY: Chest Pain. COMPARISON STUDY: 02/18/2021 TECHNIQUE: 1 view of the chest FINDINGS: Single frontal view of the chest demonstrates the cardiomediastinal silhouette to be within normal limits. Permanent cardiac pacer is in place. A Port-A-Cath is in place. The lungs are clear of alveolar opacities. There is no evidence for pleural effusion. There is no evidence for vascular congestion. There is no acute osseous pathology. IMPRESSION: No acute cardiopulmonary disease. There is no significant interval change. ACT 112: Negative or not required by law. Electronically signed by: Gordon Amador M.D. 10/02/2021 8:33 PM Discharge Plan Visit Data Chief Complaint: Illness Stated Complaint: Illness ED Provider: Russell Guadarrama Discharge Problem: COVID-19, Hypokalemia, Hypomagnesemia, Hypophosphatemia
[2021-10-02 20:32] LABS: Basophils # (auto) 0.01 K/uL (0-0.2); Basophils % (auto) 0.1 %; Eosinophils # (auto) 0.03 K/uL (0-0.5); Eosinophils % (auto) 0.4 %; Hemoglobin 9.8 g/dL (12.0-16.0); Immature Granulocytes # (auto) 0.02 K/uL (0.00-0.02); Immature Granulocytes % (auto) 0.3 %; Lymphocytes # (auto) 0.99 K/uL (1.2-3.4); Mean Corpuscular Hemoglobin 25.7 pg (25-34); Mean Corpuscular Hgb Conc 31.6 g/dL (32-36); Mean Corpuscular Volume 81.4 fL (80-100); Mean Platelet Volume 9.6 fL (7.4-10.4); Monocytes % (auto) 11.3 %; Neutrophils # (auto) 5.21 K/uL (1.4-6.5); Neutrophils % (auto) 73.9 %; Platelet Count 183 K/uL (130-400); RDW Coefficient of Variation 17.4 % (11.5-14.5); RDW Standard Deviation 51.6 fL (36.4-46.3); Red Blood Count 3.81 M/uL (4.2-5.4); White Blood Count 7.06 K/uL (4.8-10.8)
--- NOTE | 2021-10-02 20:34 | XRay Report ---
XR chest 1V portable CLINICAL HISTORY: Chest Pain. COMPARISON STUDY: 02/18/2021 TECHNIQUE: 1 view of the chest FINDINGS: Single frontal view of the chest demonstrates the cardiomediastinal silhouette to be within normal li mits. Permanent cardiac pacer is in place. A Port-A-Cath is in place. The lungs are clear of alveolar opacities. There is no evidence for pleural effusion. There is no evidence for vascular congestion. There is no acute osseous pathology. IMPRESSION: No acute cardiopulmonary disease. There is no significant interval change. ACT 112: Negative or not required by law. Electronically signed by: Gordon Amador M.D. 10/02/2021 8:33 PM
[2021-10-02 20:41] LABS: INR 1.1 (0.9-1.1); Prothrombin Time 10.8 Seconds (9.0-12.0)
[2021-10-02 20:52] LABS: Alanine Aminotransferase 9 (12-78); Albumin Level 2.5 gm/dl (3.4-5.0); Aspartate Aminotransferase 11 U/L (15-37); BUN Creatinine Ratio 12.3 (10-20); Blood Urea Nitrogen 9 mg/dl (7-18); Calcium 6.7 mg/dl (8.5-10.1); Carbon Dioxide 21 mmol/L (21-32); Chloride 113 mmol/L (98-107); Creatinine Clr Calc Pharmacy 86.2 ml/min; Est GFR (African American) 99.9 ml/min; Est GFR (Non-African American) 86.2 ml/min; Glucose 98 mg/dl (70-99); Lipase 73 U/L (73-393); Magnesium 1.4 mg/dl (1.8-2.4); Potassium 2.5 mmol/L (3.5-5.1); Sodium 143 mmol/L (136-145)
[2021-10-02 21:06] LABS: Albumin Globulin Ratio 0.8 (0.9-2); Alkaline Phosphatase 74 U/L (45-117); Bilirubin,Total 0.3 mg/dl (0.2-1); Globulin 3.3 gm/dl (2.5-4.0); NT Pro B Type Natriuretic Pept 1005 pg/ml (0-900); Phosphorus 1.4 mg/dl (2.5-4.9); Total Protein 5.8 gm/dl (6.4-8.2); Troponin I < 0.015 ng/ml (0-0.045)
[2021-10-02 21:29] LABS: Influenza A virus by PCR Negative (Neg); Influenza B virus by PCR Negative (Neg); RSV by PCR Negative (Neg)
[2021-10-02] MEDS: MAGNESIUM SULFATE / D5W 1 GM/100 ML BAG IV SCH ×2 (21:29→22:02)
[2021-10-02] MEDS: POTASSIUM CHLORIDE / WTR 10 MEQ/100 ML PLCT IV SCH ×2 (21:30→22:27)
[2021-10-02] MEDS ORDERED: POTASSIUM PHOS 3 MMOL/1 ML INFUSION IV STA (21:45)
[2021-10-02] MEDS ORDERED: POTASSIUM PHOSPHATE 9 MMOL in SODIUM CHLORIDE 0.9% 250 ML IV ONE (22:00)
[2021-10-02 22:01] LABS: SARS CoV2 RNA(COVID-19) InHosp POSITIVE (Negative)
[2021-10-02] MEDS ORDERED: MAGNESIUM SULFATE / D5W 1 GM/100 ML BAG IV STA (23:23)
[2021-10-02] MEDS ORDERED: POTASSIUM CHLORIDE 20 MEQ/15 ML UDC PO STA (23:23)
[2021-10-03] MEDS: D5W AND 1/2NSS 1,000 ML IV SCH ×3 (00:13→18:02)
[2021-10-03] MEDS ORDERED: POTASSIUM PHOS 3 MMOL/1 ML INFUSION IV STA (03:00)
[2021-10-03] MEDS ORDERED: ACETAMINOPHEN 325 MG TAB PO PRN (03:00)
[2021-10-03] MEDS ORDERED: ACETAMINOPHEN HOME PACK 500 MG TABLET PO PRN (03:00)
[2021-10-03] MEDS ORDERED: NITROGLYCERIN SL 0.4 MG/TAB TAB SL PRN (03:00)
--- NOTE | 2021-10-03 03:32 | History and Physical Report ---
DATE OF ADMISSION: 10/02/2021. CHIEF COMPLAINT: Nausea, sickness, COVID positive. HISTORY OF PRESENT ILLNESS: This is a 61-year-old female with past medical history significant for atrial fibrillation, tachybrady syndrome, status post pacemaker, history of hiatal hernia, status post surgery, since then she is having gastroparesis as per the patient, history of prolonged QT, history of COPD, chronic kidney disease stage III, history of anemia, history of mitral regurgitation, hypothyroidism, status post right subclavian port, ongoing tobacco use, history of pernicious anemia, iron deficiency anemia pemphigus, generalized anxiety disorder, who lives at home alone. Presents with since last Sunday feeling poor appetite, nausea, body aches, headaches, weakness. She felt very weak and fell today which prompted her to come to the ER. In the ER, she was having mild temperature spike. She says she also had 102 temperature yesterday. Her electrolytes were potassium was 2.5, magnesium 1.4, phosphorus 1.4. Patient had Covid last year. Not vaccinated.SARS-CoV-2 is positive again, saturating okay on room air. Currently resting comfortably and hemodynamically stable. Denies any earache. Has some runny nose. No sore throat. Has some cough, bringing up clear phlegm. No chest pain. She is feeling some subjective shortness of breath. No abdominal pain, no diarrhea or constipation. Normal bladder movements. Ambulating okay. ALLERGIES: ADHESIVES, CAPSAICIN, AMOXICILLIN, LACTULOSE, NSAIDS, ROFECOXIB, SCOPOLAMINE. PAST MEDICAL HISTORY: As mentioned above. PAST SURGICAL HISTORY: Colonoscopy, EGDs, EGD with removal of foreign body, EGD with transendoscopic dilatation, EGD with biopsy, exploratory laparotomy, insertion of A-port, insertion of tunneled venous catheter, laparoscopic cholecystectomy, paraesophageal hernia repair laparoscopic, left tear duct opening, laparoscopic pyloroplasty, removal of tunneled venous catheter, removal of left ovary, laparoscopic partial gastrectomy, tonsillectomy and adenoidectomy, sigmoidoscopy, total abdominal hysterectomy with removal of tubes, upper GI endoscopy with stent. MEDICATIONS: The patient is currently on Tylenol 1000 mg p.o. q. 6 hours p.r.n., Eliquis 5 mg p.o. b.i.d., vitamin B12 1000 mcg p.o. daily, dicyclomine 10 mg p.o. b.i.d. p.r.n., levothyroxine 88 mcg p.o. a.m., Reglan 10 mg p.o. t.i.d., metoprolol succinate 50 mg in the a.m. and 25 mg in the p.m., Protonix 40 mg p.o. b.i.d., pre jazmyne vitamins 1 tablet p.o. at bedtime, promethazine 25 mg p.o. q. 6 hours p.r.n. FAMILY HISTORY: Significant for mother has allergies, GERD, hypertension; mother has arthritis, diabetes, heart disorder; father has thyroid cancer, [place], aneurysm. SOCIAL HISTORY: , lives alone. Smokes 1 pack a day for last 20 years. Alcohol socially. No drug use. REVIEW OF SYSTEMS: As per HPI. Rest of the review of systems is negative. PHYSICAL EXAMINATION: GENERAL: The patient is of moderate build, not in acute distress. VITAL SIGNS: Temperature 37.8, pulse 68, respiratory rate 16, blood pressure 124/90, oxygen 95% on room air. HEENT: Pupils equal, round and reactive to light. Oral mucosa moist. NECK: No JVD, no neck masses. CARDIOVASCULAR: S1 and S2 heard. Regular rate and rhythm. No murmur, no gallop. RESPIRATORY: Normal AP diameter. No accessory muscle use. No wheezing, no crackles. ABDOMEN: Soft, bowel sounds present, nontender, no distention. CENTRAL NERVOUS SYSTEM: Cranial nerves II-XII grossly intact, nonfocal. EXTREMITIES: No edema, no erythema. LABORATORY DATA: WBC 7.06, hemoglobin 9.8, hematocrit 31, platelets 183. PT 10.8, INR 1.1. Sodium 143, potassium 2.5, chloride 113, bicarbonate 21, BUN 9, creatinine 0.7, serum glucose 98, calcium 6.7, phosphorus 1.4, magnesium 1.4, total bilirubin 0.3, AST 11, ALT 9, alkaline phosphatase 74. Troponin I less than 0.015. BNP 1000. Albumin 2.5. Lipase 73. SARS-CoV-2 PCR positive. Influenza A and B PCR negative. RSV PCR negative. IMAGING DATA: Chest x-ray, no acute cardiopulmonary disease. There is no significant interval change. EKG: Poor quality data. Sinus rhythm with PACs at a rate of 87, QTc of 500. ASSESSMENT AND PLAN: This is a 61-year-old female who presents with ongoing illness and found to be COVID positive. 1. COVID-19 positive: The patient was diagnosed with COVID in last August, not vaccinated. Again, she comes with sickness since last Sunday with poor appetite, nausea, weakness and body aches and headaches. She is saturating fine on room air. Will monitor. Supportive care. 2. Electrolyte abnormalities with hypokalemia, hypomagnesemia, and hypophosphatemia: Will replace. Also getting fluids for hydration. Will monitor the repeat labs. 3. Hypocalcemia: Will replace. Follow the repeat labs. Will check vitamin D levels. 4. Anemia: The patient is with a history of pernicious anemia and iron deficiency anemia. Hemoglobin 9.8, seems to be stable. Follow the repeat labs. 5. History of paroxysmal atrial fibrillation, tachybrady syndrome, status post pacemaker: On metoprolol and Eliquis. 6. Hypothyroidism: On Synthroid. 7. Pernicious anemia: On vitamin B12 supplements. 8. History of chronic obstructive pulmonary disease: Ongoing tobacco abuse, has mild wheezing. No obvious shortness of breath. I will place her on albuterol p.r.n. 9. Chronic kidney disease stage III: Presently with creatinine of 0.7. Will follow the labs. 10. prolonged Qt. follow repeat ekg. to avoid qt prolonging drugs 11. Deep venous thrombosis prophylaxis: On Eliquis. DISPOSITION: Closely monitor in the med tele. PT/OT prior to discharge. Social service to help with discharge planning. Job ID: [id number] [facility]
[2021-10-03] MEDS ORDERED: POTASSIUM PHOSPHATE 21 MMOL in SODIUM CHLORIDE 0.9% 500 ML IV ONE (03:45)
[2021-10-03] MEDS ORDERED: CALCIUM GLUCONATE 10% 1,000 MG in SODIUM CHLORIDE 0.9% 50 ML IV ONE (04:00)
[2021-10-03] MEDS: LEVALBUTEROL HCL 1.25 MG/3 ML NEB NEB PRN (04:12)
[2021-10-03 05:57] LABS: Basophils # (auto) 0.01 K/uL (0-0.2); Basophils % (auto) 0.2 %; Eosinophils # (auto) 0.11 K/uL (0-0.5); Eosinophils % (auto) 1.8 %; Hemoglobin 10.1 g/dL (12.0-16.0); Immature Granulocytes # (auto) 0.01 K/uL (0.00-0.02); Immature Granulocytes % (auto) 0.2 %; Lymphocytes % (auto) 19.5 %; Mean Corpuscular Hemoglobin 25.8 pg (25-34); Mean Corpuscular Hgb Conc 31.6 g/dL (32-36); Mean Corpuscular Volume 81.6 fL (80-100); Mean Platelet Volume 9.8 fL (7.4-10.4); Monocytes # (auto) 0.75 K/uL (0.11-0.59); Monocytes % (auto) 12.2 %; Neutrophils # (auto) 4.06 K/uL (1.4-6.5); Neutrophils % (auto) 66.1 %; Platelet Count 190 K/uL (130-400); RDW Coefficient of Variation 17.7 % (11.5-14.5); RDW Standard Deviation 52.9 fL (36.4-46.3); Red Blood Count 3.92 M/uL (4.2-5.4); White Blood Count 6.14 K/uL (4.8-10.8)
[2021-10-03 06:20] LABS: BUN Creatinine Ratio 9.2 (10-20); Calcium 8.3 mg/dl (8.5-10.1); Est GFR (African American) 84.5 ml/min; Est GFR (Non-African American) 72.9 ml/min; Magnesium 2.6 mg/dl (1.8-2.4); Potassium 3.7 mmol/L (3.5-5.1)
[2021-10-03] MEDS: guaiFENesin/CODEINE 100MG/10MG 5ML UDC PO PRN (06:26)
[2021-10-03] MEDS: LEVOTHYROXINE SODIUM 88 MCG TABLET PO SCH (06:26)
[2021-10-03] MEDS ORDERED: ALBUTEROL HFA 8 GM INHALER INH PRN (07:03)
--- NOTE | 2021-10-03 08:47 | Electrocardiogram Report ---
Test Reason : Blood Pressure : / mmHG Vent. Rate : 087 BPM Atrial Rate : 087 BPM P-R Int : 150 ms QRS Dur : 106 ms QT Int : 416 ms P-R-T Axes : 068 -17 -12 degrees QTc Int : 500 ms Poor data quality, interpretation may be adversely affected Sinus rhythm with Premature atrial complexes Incomplete right bundle branch block Minimal voltage criteria for LVH, may be normal variant Nonspecific T wave abnormality Anterior leads Abnormal ECG When compared with ECG of 19-FEB-2021 10:55, Sinus rhythm has replaced Electronic atrial pacemaker Confirmed by Long Gary ([id number]) on 10/03/2021 8:46:50 AM Referred By: REFERRED SELF Confirmed By:Long Gary
[2021-10-03] MEDS: METOCLOPRAMIDE HCL 10 MG TABLET PO SCH ×3 (09:04→20:59)
[2021-10-03] MEDS: METOPROLOL SUCC 50MG EXT REL TAB PO SCH (09:04)
[2021-10-03] MEDS: PANTOprazole 40 MG TAB PO SCH ×2 (09:04→20:59)
[2021-10-03] MEDS: APIXABAN 5 MG TABLET PO SCH ×2 (09:05→20:59)
[2021-10-03] MEDS: CYANOCOBALAMIN 500 MCG TABLET (VITAMIN B-12) PO SCH (09:05)
--- NOTE | 2021-10-03 12:00 | Electrocardiogram Report ---
Test Reason : Blood Pressure : / mmHG Vent. Rate : 069 BPM Atrial Rate : 069 BPM P-R Int : 148 ms QRS Dur : 110 ms QT Int : 446 ms P-R-T Axes : 024 -11 -13 degrees QTc Int : 477 ms Normal sinus rhythm Incomplete right bundle branch block Minimal voltage criteria for LVH, may be normal variant Borderline ECG When compared with ECG of 02-OCT-2021 20:11, Premature atrial complexes are no longer Present T wave inversion no longer evident in Anterior leads Confirmed by Long Gary ([id number]) on 10/03/2021 12:00:30 PM Referred By: REFERRED SELF Confirmed By:Long Gary
[2021-10-03] MEDS: methylPREDNISolone 40 MG in SYRINGE 0 ML IV SCH (19:51)
[2021-10-03] MEDS: LEVALBUTEROL TARTRATE 15 GM HFA.AER.AD INH SCH (20:36)
[2021-10-03] MEDS: PRENATAL VITAMIN 1 TAB PO SCH (20:59)
[2021-10-03] MEDS: METOPROLOL SUCC 25MG EXT REL TAB PO SCH (20:59)
[2021-10-03] MEDS: DOXYCYCLINE HYCLATE 100 MG CAP PO SCH (21:46)
[2021-10-04] MEDS ORDERED: HEPARIN 100 UNIT/ML 5ML FLUSH FLUSH PRN (01:10)
[2021-10-04] MEDS: D5W AND 1/2NSS 1,000 ML IV SCH ×2 (03:44→13:33)
[2021-10-04] MEDS: LEVALBUTEROL HCL 1.25 MG/3 ML NEB NEB PRN (05:54)
[2021-10-04] MEDS: LEVOTHYROXINE SODIUM 88 MCG TABLET PO SCH (06:12)
[2021-10-04 07:08] LABS: BUN Creatinine Ratio 9.6 (10-20); Calcium 8.3 mg/dl (8.5-10.1); Creatinine Clr Calc Pharmacy 77.5 ml/min; Est GFR (African American) 88.3 ml/min; Est GFR (Non-African American) 76.2 ml/min; Magnesium 2.5 mg/dl (1.8-2.4); Potassium 4.1 mmol/L (3.5-5.1)
[2021-10-04 07:09] LABS: Phosphorus 2.5 mg/dl (2.5-4.9)
[2021-10-04] MEDS: LEVALBUTEROL TARTRATE 15 GM HFA.AER.AD INH SCH ×3 (07:27→14:44)
[2021-10-04] MEDS: PANTOprazole 40 MG TAB PO SCH ×2 (08:54→20:58)
[2021-10-04] MEDS: DOXYCYCLINE HYCLATE 100 MG CAP PO SCH ×2 (08:54→20:58)
[2021-10-04] MEDS: METOCLOPRAMIDE HCL 10 MG TABLET PO SCH ×3 (08:54→20:58)
[2021-10-04] MEDS: CYANOCOBALAMIN 500 MCG TABLET (VITAMIN B-12) PO SCH (08:55)
[2021-10-04] MEDS: APIXABAN 5 MG TABLET PO SCH ×2 (08:55→20:58)
[2021-10-04] MEDS: METOPROLOL SUCC 50MG EXT REL TAB PO SCH (08:55)
[2021-10-04] MEDS: methylPREDNISolone 40 MG in SYRINGE 0 ML IV SCH (08:55)
--- NOTE | 2021-10-04 12:42 | Electrocardiogram Report ---
Test Reason : Blood Pressure : / mmHG Vent. Rate : 066 BPM Atrial Rate : 066 BPM P-R Int : 188 ms QRS Dur : 104 ms QT Int : 452 ms P-R-T Axes : 039 -04 -11 degrees QTc Int : 473 ms Atrial-paced rhythm with Premature atrial complexes Incomplete right bundle branch block Diffuse Nonspecific T wave abnormality Prolonged QT Abnormal ECG When compared with ECG of 03-OCT-2021 09:11, Electronic atrial pacemaker has replaced Sinus rhythm Confirmed by Long Gary ([id number]) on 10/04/2021 12:41:43 PM Referred By: REFERRED SELF Confirmed By:Long Gary
--- NOTE | 2021-10-04 15:04 | Hospitalist Progress Note ---
Date of Service October 04, 2021 Assessment & Plan (1) Electrolyte abnormality: (2) COVID-19: (3) Nausea and vomiting in adult: Plan: ASSESSMENT AND PLAN: This is a 61-year-old female who presents with ongoing illness and found to be COVID positive. COVID-19 infection, possible mild COPD exacerbation Remains on room air, with good O2 saturation Chest x-ray: No signs of infiltrate or consolidation Positive wheezing noted on hospital day 2 Started on Solu-Medrol 40 mg every 12, levalbuterol inhaler every 6 hours, doxycycline p.o. Today wheezing has resolved, cough improving Change Solu-Medrol to prednisone 40 mg daily Continue levobunolol inhaler every 6 hours as needed Doxycycline p.o. day #2 On Eliquis for A. fib Electrolyte abnormalities with hypokalemia, hypomagnesemia, and hypophosphatemia: Likely secondary to poor intake, nausea and vomiting secondary to COVID-19 infection, history of gastroparesis Potassium, magnesium, phosphorus now within normal limits after repletion Anemia: The patient is with a history of pernicious anemia and iron deficiency anemia. Hemoglobin stable at 10 History of paroxysmal atrial fibrillation, tachybrady syndrome, status post p acemaker: On metoprolol and Eliquis. Hypothyroidism: On Synthroid. Chronic kidney disease stage III: Presently with creatinine of 0.7. Creatinine stable Prolonged QT Repeat EKG showing QT corrected of 473 Deep venous thrombosis prophylaxis: On Eliquis. Disposition Anticipate discharge to home when medically stable in 1 to 2 days Admission and Anticipated Discharge Date Admission Date: October 02, 2021 Subjective Follow-up for weakness, nausea and vomiting, electrolyte abnormalities, COVID-19 infection, etc. Seen sitting up in bed, watching TV, in good spirits, smiling States that she feels improved today compared to yesterday Still has dry cough but no shortness of breath, no fevers or chills, no headache, dizziness, palpitations, abdominal pain, nausea vomiting today Tolerating regular diet well No other symptoms Review of Systems Review of Systems: all noted and negative except for above Physical Exam Physical Exam: General- oriented x 3, not in distress, speaks in sentences with no effort or accessory muscle use Eyes- anicteric Neck- no JVD Lungs- clear breath sounds bilaterally, no rales/wheezes Heart- normal rate, regular rhythm; no murmurs Abdomen- normal bowel sounds, nondistended, soft, nontender Extremities- no pretibial edema, no calf tenderness Neuro- alert, oriented x 3; no gross focal neurologic deficits Skin- warm & dry Results & Data Results & Data ([facility]) Vital Signs (Past 12 Hours) Vital Signs Temp Pulse Resp BP Pulse Ox Pulse Ox 10/04/21 14:52 37.0 C 71 18 117/81 96 10/04/21 14:44 67 18 97 10/04/21 11:19 36.8 C 66 18 162/95 H 97 10/04/21 10:58 69 18 95 10/04/21 07:27 72 18 95 10/04/21 07:17 36.9 C 85 18 130/88 92 10/04/21 05:55 65 16 96 10/04/21 03:42 36.8 C 67 18 117/82 95 10/04/21 03:00 93 all noted and reviewed including below
[2021-10-04] MEDS ORDERED: LEVALBUTEROL TARTRATE 15 GM HFA.AER.AD INH PRN (16:33)
[2021-10-04] MEDS: PRENATAL VITAMIN 1 TAB PO SCH (20:58)
[2021-10-04] MEDS: METOPROLOL SUCC 25MG EXT REL TAB PO SCH (20:58)
[2021-10-04] MEDS ORDERED: METOPROLOL TARTRATE 1 MG/ML VIAL IV STA (23:36)
[2021-10-05] MEDS ORDERED: dilTIAZem HCl 5 MG/ML 5 ML VIAL IV STA (01:50)
[2021-10-05] MEDS: guaiFENesin/CODEINE 100MG/10MG 5ML UDC PO PRN (02:20)
[2021-10-05] MEDS: LEVOTHYROXINE SODIUM 88 MCG TABLET PO SCH (06:12)
[2021-10-05 06:39] LABS: BUN Creatinine Ratio 17.4 (10-20); Creatinine Clr Calc Pharmacy 73.9 ml/min; Est GFR (African American) 83.3 ml/min; Est GFR (Non-African American) 71.9 ml/min; Potassium 3.7 mmol/L (3.5-5.1)
--- NOTE | 2021-10-05 08:19 | Electrocardiogram Report ---
Test Reason : Blood Pressure : / mmHG Vent. Rate : 123 BPM Atrial Rate : 104 BPM P-R Int : 000 ms QRS Dur : 112 ms QT Int : 370 ms P-R-T Axes : 000 -05 -69 degrees QTc Int : 529 ms Atrial fibrillation with rapid ventricular response Incomplete right bundle branch block Diffuse Nonspecific ST and T wave abnormality Abnormal ECG When compared with ECG of 04-OCT-2021 06:05, Atrial fibrillation has replaced Electronic atrial pacemaker Vent. rate has increased BY 57 BPM Confirmed by Long Gary ([id number]) on 10/05/2021 8:19:06 AM Referred By: REFERRED SELF Confirmed By:Long Gary
[2021-10-05] MEDS: APIXABAN 5 MG TABLET PO SCH ×2 (08:26→20:45)
[2021-10-05] MEDS: METOPROLOL SUCC 50MG EXT REL TAB PO SCH ×2 (08:27→20:45)
[2021-10-05] MEDS: DICYCLOMINE HCL 10 MG CAP PO PRN (08:27)
[2021-10-05] MEDS: PANTOprazole 40 MG TAB PO SCH ×2 (08:27→20:45)
[2021-10-05] MEDS: CYANOCOBALAMIN 500 MCG TABLET (VITAMIN B-12) PO SCH (08:27)
[2021-10-05] MEDS: METOCLOPRAMIDE HCL 10 MG TABLET PO SCH ×3 (08:28→20:45)
[2021-10-05] MEDS: predniSONE 20 MG TAB PO SCH (08:28)
[2021-10-05] MEDS: DOXYCYCLINE HYCLATE 100 MG CAP PO SCH ×2 (08:28→20:45)
--- NOTE | 2021-10-05 09:48 | Hospitalist Progress Note ---
Date of Service October 05, 2021 Assessment & Plan (1) Electrolyte abnormality: Plan: Resolved, asymptomatic. (2) COVID-19: Plan: No evidence of pneumonia on CXR or clinically. She does have wheezing at the bases that persists and feels better on the steroids. No oxygen requirements, therefore, no indication for covid specific therapies. (3) Atrial fibrillation with rapid ventricular response: Plan: HR into the 160s overnight and in the 110s-120s today. Followed by Cardiology and she continues on her home metoprolol regimen of 50mg qAM/25mg qPM. Required diltiazem 10mg IV overnight to help bring her heart rate down. May be related to COPD/COVID infection. Will ask for cardiology consult for adjustment of medications as needed. Apixaban continues for stroke prophylaxis. (4) Nausea and vomiting in adult: Plan: h/o gastroparesis and peripheral neuropathy. Hospitalized in the past for this, however, she is currently tolerating PO and denies any nausea. Asking to go home. (5) COPD exacerbation: Plan: Wheezing noted Day 2 hospital stay with suspected exacerbation of COPD. Started on steroids and bronchodilator therapy with improvement per patient. She still has some wheezing at the bases. No oxygen requirement. (6) Gastroparesis: Plan: Per history, takes chronic antiemetics to help control nausea from this. Small, frequent meals encouraged. (7) Hypothyroidism: Plan: Chronic, no recent TSH check within the last year in inpatient or outpatient records. If she stays overnight, will check this. Otherwise, she can have her PCP check on follow-up. Cont Synthroid per home regimen. (8) DVT prophylaxis: Plan: apixaban Full Dispo-to home in 1-2 days when HR controlled. Pending cardiology recommendations. Juliane Long DO [facility] Hospitalist Admission and Anticipated Discharge Date Admission Date: October 02, 2021 Subjective 61 yo F admitted for covid infection fever, sore throat, ear pain 7 days ago all these symptoms are better she reports breathing better on the steroids, still wheezing at lung bases not requiring oxygen at rest tolerating food denies chest pain, but has had tachycardia overnight on telemetry, known h/o afib. nonproductive cough improved with Robitussin Review of Systems Review of Systems: all systems were reviewed and negative except as indicated above. Physical Exam Physical Exam: CONSTITUTIONAL: WNWD, vitals as above, generally well- appearing, NAD EYES: normal conjunctivae, no scleral icterus ENT: external ear and nose normal, MMM, poor dentition. NECK: trachea midline, RESPIRATORY: wheezing at bases bilaterally, no crackles or rales, normal respiratory effort, +junky sounding cough CARDIOVASCULAR: irregular rate and irreg rhythm, S1 and 2 heard without murmurs, gallops or rubs, no JVD, no peripheral edema, GASTROINTESTINAL: soft, nontender, ND, no guarding MUSCULOSKELETAL: strength 5/5 throughout, head is normocephalic and atraumatic, SKIN: warm and dry, NEUROLOGIC: CN 2-12 grossly intact, normal cognition, normal speech, no tremor, no gross focal deficits. PSYCHIATRIC: alert cooperative and oriented to person, place and time. Euthymic mood, makes good eye contact, language grossly intact, recent and remote memory grossly intact. Results & Data Results & Data ([facility]) Vital Signs (Past 12 Hours) Vital Signs Temp Pulse Pulse Resp BP BP BP 10/05/21 06:14 36.7 C 104 H 18 126/88 10/05/21 05:15 94 H 10/05/21 03:37 36.8 C 97 H 18 137/95 10/05/21 03:00 10/05/21 00:45 121 H 18 133/84 10/04/21 23:47 142 H 133/84 10/04/21 23:30 133 H 10/04/21 23:00 65 Pulse Ox Pulse Ox 10/05/21 06:14 95 10/05/21 05:15 10/05/21 03:37 96 10/05/21 03:00 94 10/05/21 00:45 92 10/04/21 23:47 10/04/21 23:30 10/04/21 23:00 Laboratory Results BMP 10/05/21 05:27 Sodium 141 Potassium 3.7 Chloride 109 H Carbon Dioxide 25 BUN 15 Creatinine 0.86 Glucose 82 Calcium 8.0 L Medications Administered Current Inpatient Medications Acetaminophen (Acetaminophen 325 Mg Tab) 650 mg PO Q4H PRN PRN Reason: Pain or Fever Stop: 11/02/21 02:59 Albuterol (Albuterol Hfa 8 Gm Inhaler) 2 puffs INH Q4H PRN PRN Reason: Shortness Of Breath Or Wheezing Stop: 11/02/21 07:14 Apixaban (Apixaban 5 Mg Tablet) 5 mg PO BID [facility] Stop: 11/02/21 08:59 Last Admin: 10/05/21 08:26 Dose: 5 mg Documented by: Cyanocobalamin (Cyanocobalamin 500 Mcg Tablet (Vitamin B-12)) 1,000 mcg PO DAILY [facility] Stop: 11/02/21 08:59 Last Admin: 10/05/21 08:27 Dose: 1,000 mcg Documented by: Dicyclomine HCl (Dicyclomine Hcl 10 Mg Cap) 10 mg PO BID PRN PRN Reason: Abdominal Discomfort Stop: 11/02/21 02:59 Last Admin: 10/05/21 08:27 Dose: 10 mg Documented by: Doxycycline Hyclate (Doxycycline Hyclate 100 Mg Cap) 100 mg PO BID [facility]; Protocol Stop: 10/10/21 20:59 Last Admin: 10/05/21 08:28 Dose: 100 mg Documented by: Guaifenesin/Codeine Phosphate (Guaifenesin/Codeine 100mg/10mg 5ml Udc) 5 ml PO Q6H PRN PRN Reason: Cough Stop: 11/02/21 06:17 Last Admin: 10/05/21 02:20 Dose: 5 ml Documented by: Heparin Sodium (Porcine) (Heparin 100 Unit/Ml 5ml Flush) 5 ml FLUSH PRN PRN PRN Reason: Flush Stop: 11/03/21 01:09 Levalbuterol HCl (Levalbuterol Hcl 1.25 Mg/3 Ml Neb) 1.25 mg NEB Q4H PRN; Protocol PRN Reason: Shortness Of Breath Or Wheezing Stop: 11/02/21 03:44 Last Admin: 10/04/21 05:54 Dose: 1.25 mg Documented by: Levothyroxine Sodium (Levothyroxine Sodium 88 Mcg Tablet) 88 mcg PO DAILYBB [facility] Stop: 11/02/21 06:29 Last Admin: 10/05/21 06:12 Dose: 88 mcg Documented by: Metoclopramide HCl (Metoclopramide Hcl 10 Mg Tablet) 10 mg PO TID [facility] Stop: 11/02/21 08:59 Last Admin: 10/05/21 08:28 Dose: 10 mg Documented by: Metoprolol Succinate (Metoprolol Succ 25mg Ext Rel Tab) 25 mg PO PM [facility] Stop: 11/02/21 20:59 Last Admin: 10/04/21 20:58 Dose: 25 mg Documented by: Metoprolol Succinate (Metoprolol Succ 50mg Ext Rel Tab) 50 mg PO QAM [facility] Stop: 11/02/21 08:59 Last Admin: 10/05/21 08:27 Dose: 50 mg Documented by: Nitroglycerin (Nitroglycerin Sl 0.4 Mg/Tab Tab) 0.4 mg SL UD PRN PRN Reason: Chest Pain Stop: 11/02/21 02:59 Pantoprazole Sodium (Pantoprazole 40 Mg Tab) 40 mg PO BID [facility] Stop: 11/02/21 08:59 Last Admin: 10/05/21 08:27 Dose: 40 mg Documented by: Prednisone (Prednisone 20 Mg Tab) 40 mg PO DAILY [facility] Stop: 11/04/21 08:59 Last Admin: 10/05/21 08:28 Dose: 40 mg Documented by: Prenat Multivit/[place]/Iron/Folic Ac ( Vitamin 1 Tab) 1 tab PO HS [facility] Stop: 11/02/21 20:59 Last Admin: 10/04/21 20:58 Dose: 1 tab Documented by: (1) Hypothyroidism Hypothyroidism type: acquired Qualified Code(s): E03.9 - Hypothyroidism, unspecified
--- NOTE | 2021-10-05 16:15 | Cardiology Consultation ---
Date of Consultation October 05, 2021 Assessment & Plan (1) Atrial fibrillation with rapid ventricular response: (2) COVID-19: Pt had a 4% atrial fibrillation burden on device check in July,. Asymptomatic from Afib perspective at present. Received a dose of IV metoprolol and IV diltiazem overnight. Increase [employer] metoprolol succinate to 50 mg BID. Continue Eliquis. Will follow. History of Present Illness Attending Physician: Juliane Long, DO History of Present Illness Anne Delarosa is a 61 year old female seen in cardiology consultation per the req uest of Dr Logn for the evaluation of atrial fibrillation with rapid ventricular response. Patient seen in the isolation unit, room 252-1. Last evening at 23:14 she was noted to convert to atrial fibrillation with rapid ventricular response of 119- 160 bpm. She noted subjective palpitations at about 130 am, but none at the time of my assessment and was completely comfortable with no additional cardiology complaints. As of 1600 , atrial fibrillation with ventricular rates in the range of 90-110 bpm present on telemetry. She was admitted on 10/03/21 with complaints of fever, nausea , and generalized illness and was found to have SARS-CoV-2. Her oxygen saturations are normal on room air. She follows with Dr Ellis of EP for history of paroxysmal atrial tachycardia, paroxysmal atrial fibrillation, tachy /andre syndrome, for which she underwent dual chamber [employer] permanent pacemaker 01/2021 (right atrial and HIS bundle lead), QT prolongation. Echo 01/2021 with normal LVEF 60-65%, mild MR. Allergies Allergy/AdvReac Type Severity Reaction Status Date / Time adhesive Allergy Mild POWERS SKIN Verified 10/02/21 20:16 capsaicin Allergy Mild ITCHINESS Verified 10/02/21 20:16 amoxicillin AdvReac Intermediate yeast Verified 10/02/21 20:16 infection lactose AdvReac Intermediate Gastrointestinal Verified 10/02/21 20:16 Upset NSAIDS (Non-Steroidal AdvReac Mild indegestion Verified 10/02/21 20:16 Anti-Inflamma rofecoxib AdvReac Mild indigestion Verified 10/02/21 20:16 scopolamine AdvReac Mild rash from Verified 10/02/21 20:16 patch Home Medications Medication Instructions Recorded Confirmed Type pantoprazole 40 mg tablet,delayed 40 mg PO BID #60 tab 12/10/19 10/02/21 Rx release acetaminophen 500 mg tablet 1,000 mg PO Q6H PRN #60 tab 12/16/19 10/02/21 Rx (Tylenol Extra Strength) levothyroxine 88 mcg tablet 88 mcg PO QAM #30 tab 12/16/19 10/02/21 Rx (Synthroid) dicyclomine 10 mg capsule 10 mg PO BID PRN 12/17/19 10/02/21 History metoclopramide HCl 10 mg tablet 10 mg PO TID 09/30/20 10/02/21 History promethazine 25 mg tablet 25 mg PO Q6H PRN 09/30/20 10/02/21 History metoprolol succinate 25 mg See Rx Instructions .ROUTE .COMPLEX 02/16/21 10/02/21 History tablet,extended release 24 hr apixaban 5 mg tablet (Eliquis) 5 mg PO BID 10/02/21 10/02/21 History cyanocobalamin (vitamin B-12) 1,000 mcg PO DAILY 10/02/21 10/02/21 History 1,000 mcg tablet (Vitamin B-12) vitamins-iron fumarate 65 1 tab PO HS 10/02/21 10/02/21 History mg iron-folic acid 1 mg tablet Patient History Medical History Acidosis, lactic Anxiety Asthma COPD (chronic obstructive pulmonary disease) COVID-19 Depression Diverticulosis Frequent PVCs GERD (gastroesophageal reflux disease) H/O irritable bowel syndrome HTN (hypertension) Hypomagnesemia Hypothyroidism Intractable nausea and vomiting Mitral regurgitation "moderate per echo 09/21/15" Neuropathy Paroxysmal A-fib Pemphigus vulgaris Prolonged QT interval Tobacco abuse Surgical History History of bladder surgery History of laparoscopic partial gastrectomy History of pyloroplasty History of total hysterectomy Hx of cholecystectomy Hx of tonsillectomy S/P hysterectomy S/P laparoscopic sleeve gastrectomy S/P partial gastrectomy S/P repair of paraesophageal hernia "resulted in volvulus, required abdominal exploration" S/P tonsillectomy and adenoidectomy Family History Mother DM type 2 (diabetes mellitus, type 2) Coronary heart disease Social History Smoking Status: Heavy tobacco smoker Tobacco Type: Cigarettes Cigarettes Per Day: 1 ppd; Second Hand Exposure: Yes; Hx Alcohol Use: Yes Alcohol type: beer Alcohol Intake Frequency Comment: 3-4 beers/week Hx Substance Use: No Preferred Language: Icelandic Communication Ability: Effective Color Coater Required: No Beliefs That Will Affect Care: None marital status: Single Current Living Situation: Family Current Living Situation Comment: Pt lives with brother How many Children do You have: 2 Feels Safe at Home: Yes Assistive Devices: None Review of Systems Review of Systems: All systems reviewed & are unremarkable except as noted in HPI & below Physical Exam Physical Exam: Temp Pulse Resp BP Pulse Ox 36.8 C 66 18 115/78 96 10/05/21 15:28 10/05/21 15:28 10/05/21 15:28 10/05/21 15:28 10/05/21 15:28 Constitutional: WD/WN, vitals as above Respiratory: normal respiratory effort, lungs clear to auscultation Cardiovascular: Rate/Rhythm: + tachycardic and + irregularly irregular Extremities: no edema Neurologic: PERRL, EOMI, accommodation nl, no face palsy, no dysarthria Results & Data ([facility]) Vital Signs (Past 12 Hours) Vital Signs Temp Pulse Pulse Resp BP Pulse Ox 10/05/21 15:28 36.8 C 66 18 115/78 96 10/05/21 13:07 115 H 10/05/21 12:00 36.7 C 89 18 127/93 97 10/05/21 06:14 36.7 C 104 H 18 126/88 95 10/05/21 05:15 94 H
[2021-10-05] MEDS ORDERED: POTASSIUM CHLORIDE CRTAB 20 MEQ TABCR PO STA (16:28)
[2021-10-05] MEDS: PRENATAL VITAMIN 1 TAB PO SCH (20:45)
[2021-10-06] MEDS: LEVOTHYROXINE SODIUM 88 MCG TABLET PO SCH (05:52)
[2021-10-06 06:21] LABS: Hematocrit (blood only) 35.9 % (37-47); Hemoglobin 11.3 g/dL (12.0-16.0); Mean Corpuscular Hemoglobin 25.7 pg (25-34); Mean Corpuscular Hgb Conc 31.5 g/dL (32-36); Mean Corpuscular Volume 81.6 fL (80-100); Mean Platelet Volume 9.6 fL (7.4-10.4); Platelet Count 283 K/uL (130-400); RDW Coefficient of Variation 17.8 % (11.5-14.5); RDW Standard Deviation 52.8 fL (36.4-46.3); White Blood Count 8.66 K/uL (4.8-10.8)
[2021-10-06 06:54] LABS: BUN Creatinine Ratio 22.9 (10-20); Calcium 8.2 mg/dl (8.5-10.1); Creatinine Clr Calc Pharmacy 76.5 ml/min; Phosphorus 2.8 mg/dl (2.5-4.9); Potassium 3.6 mmol/L (3.5-5.1)
[2021-10-06] MEDS: CYANOCOBALAMIN 500 MCG TABLET (VITAMIN B-12) PO SCH (07:21)
[2021-10-06] MEDS: DOXYCYCLINE HYCLATE 100 MG CAP PO SCH (07:22)
[2021-10-06] MEDS: METOPROLOL SUCC 50MG EXT REL TAB PO SCH (07:22)
[2021-10-06] MEDS: DICYCLOMINE HCL 10 MG CAP PO PRN (07:23)
[2021-10-06] MEDS: METOCLOPRAMIDE HCL 10 MG TABLET PO SCH (07:23)
[2021-10-06] MEDS: predniSONE 20 MG TAB PO SCH (07:23)
[2021-10-06] MEDS: PANTOprazole 40 MG TAB PO SCH (07:23)
[2021-10-06] MEDS: APIXABAN 5 MG TABLET PO SCH (07:23)
--- NOTE | 2021-10-06 08:59 | Discharge Summary ---
Date of Service October 06, 2021 Principal Diagnosis Electrolyte abnormalities-resolved Covid-19 infection Atrial fibrillation with rapid ventricular response Nausea and vomiting-resolved COPD exacerbation Discharge Data Allergies Allergy/AdvReac Type Severity Reaction Status Date / Time adhesive Allergy Mild POWERS SKIN Verified 10/02/21 20:16 capsaicin Allergy Mild ITCHINESS Verified 10/02/21 20:16 amoxicillin AdvReac Intermediate yeast Verified 10/02/21 20:16 infection lactose AdvReac Intermediate Gastrointestinal Verified 10/02/21 20:16 Upset NSAIDS (Non-Steroidal AdvReac Mild indegestion Verified 10/02/21 20:16 Anti-Inflamma rofecoxib AdvReac Mild indigestion Verified 10/02/21 20:16 scopolamine AdvReac Mild rash from Verified 10/02/21 20:16 patch Consultations 10/02/21 21:53 ED Decision to Admit Stat 10/05/21 11:54 Consult Cardiology Routine Ordered Studies Laboratory Results WBC 8.66 K/uL (4.8-10.8) 10/06/21 05:42 RBC 4.40 M/uL (4.2-5.4) 10/06/21 05:42 Hgb 11.3 g/dL (12.0-16.0) L 10/06/21 05:42 Hct 35.9 % (37-47) L 10/06/21 05:42 MCV 81.6 fL (80-100) 10/06/21 05:42 MCH 25.7 pg (25-34) 10/06/21 05:42 MCHC 31.5 g/dL (32-36) L 10/06/21 05:42 RDW Std Deviation 52.8 fL (36.4-46.3) H 10/06/21 05:42 RDW Coeff of Ana M 17.8 % (11.5-14.5) H 10/06/21 05:42 Plt Count 283 K/uL (130-400) 10/06/21 05:42 MPV 9.6 fL (7.4-10.4) 10/06/21 05:42 Immature Gran % (Auto) 0.2 % 10/03/21 05:07 Neut % (Auto) 66.1 % 10/03/21 05:07 Lymph % (Auto) 19.5 % 10/03/21 05:07 [place] % (Auto) 12.2 % 10/03/21 05:07 Eos % (Auto) 1.8 % 10/03/21 05:07 Baso % (Auto) 0.2 % 10/03/21 05:07 Neut # (Auto) 4.06 K/uL (1.4-6.5) 10/03/21 05:07 Lymph # (Auto) 1.20 K/uL (1.2-3.4) 10/03/21 05:07 [place] # (Auto) 0.75 K/uL (0.11-0.59) H 10/03/21 05:07 Eos # (Auto) 0.11 K/uL (0-0.5) 10/03/21 05:07 Baso # (Auto) 0.01 K/uL (0-0.2) 10/03/21 05:07 Immature Gran # (Auto) 0.01 K/uL (0.00-0.02) 10/03/21 05:07 PT 10.8 Seconds (9.0-12.0) 10/02/21 20:16 INR 1.1 (0.9-1.1) 10/02/21 20:16 Sodium 141 mmol/L (136-145) 10/06/21 05:42 Potassium 3.6 mmol/L (3.5-5.1) 10/06/21 05:42 Chloride 111 mmol/L (98-107) H 10/06/21 05:42 Carbon Dioxide 22 mmol/L (21-32) 10/06/21 05:42 Anion Gap 8 (3-11) 10/06/21 05:42 BUN 19 mg/dl (6-23) 10/06/21 05:42 Creatinine 0.83 mg/dl (0.6-1.2) 10/06/21 05:42 Est Cr Clr Drug Dosing 76.5 ml/min 10/06/21 05:42 Est GFR ( Amer) 87.0 ml/min 10/06/21 05:42 Est GFR (Non-Af Amer) 75.0 ml/min 10/06/21 05:42 BUN/Creatinine Ratio 22.9 (10-20) H 10/06/21 05:42 Glucose 86 mg/dl (70-99) 10/06/21 05:42 Calcium 8.2 mg/dl (8.5-10.1) L 10/06/21 05:42 Phosphorus 2.8 mg/dl (2.5-4.9) 10/06/21 05:42 Magnesium 2.0 mg/dl (1.7-2.4) 10/06/21 05:42 Total Bilirubin 0.3 mg/dl (0.2-1) 10/02/21 20:16 AST 11 U/L (15-37) L 10/02/21 20:16 ALT 9 (12-78) L 10/02/21 20:16 Alkaline Phosphatase 74 U/L (45-117) 10/02/21 20:16 Troponin I < 0.015 ng/ml (0-0.045) 10/02/21 20:16 NT-Pro-B Natriuret Pep 1005 pg/ml (0-900) H 10/02/21 20:16 Total Protein 5.8 gm/dl (6.4-8.2) L 10/02/21 20:16 Albumin 2.5 gm/dl (3.4-5.0) L 10/02/21 20:16 Globulin 3.3 gm/dl (2.5-4.0) 10/02/21 20:16 Albumin/Globulin Ratio 0.8 (0.9-2) L 10/02/21 20:16 Lipase 73 U/L (73-393) 10/02/21 20:16 25-OH Vitamin D Total 8.5 ng/ml (30-100) L 10/02/21 20:11 TSH 4.016 uIu/ml (0.300-4.500) 10/06/21 05:42 SARS-CoV-2 (PCR) POSITIVE (Negative) A* 10/02/21 20:38 Influenza Type A (PCR) Negative (Neg) 10/02/21 20:38 Influenza Type B (PCR) Negative (Neg) 10/02/21 20:38 RSV (RT-PCR) Negative (Neg) 10/02/21 20:38 Impressions Chest X-Ray 10/02/21 20:16 XR chest 1V portable CLINICAL HISTORY: Chest Pain. COMPARISON STUDY: 02/18/2021 TECHNIQUE: 1 view of the chest FINDINGS: Single frontal view of the chest demonstrates the cardiomediastinal silhouette to be within normal limits. Permanent cardiac pacer is in place. A Port-A-Cath is in place. The lungs are clear of alveolar opacities. There is no evidence for pleural effusion. There is no evidence for vascular congestion. There is no acute osseous pathology. IMPRESSION: No acute cardiopulmonary disease. There is no significant interval change. ACT 112: Negative or not required by law. Electronically signed by: Gordon Amador M.D. 10/02/2021 8:33 PM Hospital Course (1) Electrolyte abnormality: Resolved, asymptomatic. (2) COVID-19: No evidence of pneumonia on CXR or clinically. She does have wheezing at the bases that persists and feels better on the steroids. No oxygen requirements, therefore, no indication for covid specific therapies. (3) Atrial fibrillation with rapid ventricular response: HR into the 160s overnight and in the 110s-120s today. Followed by Cardiology and she continues on her home metoprolol regimen of 50mg qAM/25mg qPM. Required diltiazem 10mg IV overnight to help bring her heart rate down. May be related to COPD/COVID infection. Will ask for cardiology consult for adjustment of medications as needed. Apixaban continues for stroke prophylaxis. (4) Nausea and vomiting in adult: h/o gastroparesis and peripheral neuropathy. Hospitalized in the past for this, however, she is currently tolerating PO and denies any nausea. Asking to go home. (5) COPD exacerbation: Wheezing noted Day 2 hospital stay with suspected exacerbation of COPD. Started on steroids and bronchodilator therapy with improvement per patient. She still has some wheezing at the bases. No oxygen requirement. (6) Gastroparesis: Per history, takes chronic antiemetics to help control nausea from this. Small, frequent meals encouraged. (7) Hypothyroidism: Chronic, no recent TSH check within the last year in inpatient or outpatient records. If she stays overnight, will check this. Otherwise, she can have her PCP check on follow-up. Cont Synthroid per home regimen. (8) DVT prophylaxis: apixaban Full Dispo-to home in 1-2 days when HR controlled. Pending cardiology recommendations. DO [facility] Total Time Total Time Spent Total Time Spent (In Minutes): 60 Discharge Plan Discharge Items Patient Disposition: Home - Self-Care Reason For Visit: Illness Discharge Diagnosis: Electrolyte abnormalities-resolved Covid-19 infection Atrial fibrillation with rapid ventricular response Nausea and vomiting-resolved COPD exacerbation Activity: Resume your previous activity Non-emergency contact: Primary Care Provider Call non-emergency contact if: you have any medication questions and your symptoms worsen Follow-up/Referrals: Jaleel Coppola MD [Primary Care Provider] - Diet: Regular Addtl Attending Provider Instructions: Please take all medications as instructed on discharge list below. It is recommended that you follow-up with your primary care provider within one week of discharge to ensure you are still doing well after returning home, and to review medication changes. It was a pleasure taking care of you! Please call if you have any questions or problems. You can reach a [facility] hospitalist on duty at [facility] 24 hours a day by calling [phone]. Take care of yourself. Juliane Long, [facility] Hospitalist Addtl Cell Operation Supervisor Provider Instructions: Home Isolation COVID-19 Instructions The following information about Home Isolation is from the CDC Website: https://www.cdc.gov/coronavirus/2019-ncov/hcp/mlmaxkpq-nwmkyoy-ocrfvr.html Stay home except to get medical care People who are mildly ill with COVID-19 are able to isolate at home during their illness. You should restrict activities outside your home, except for getting medical care. Do not go to work, school, or public areas. Avoid using public transportation, ride-sharing, or taxis. Separate yourself from other people and animals in your home People: As much as possible, you should stay in a specific room and away from other people in your home. Also, you should use a separate bathroom, if available. Animals: You should restrict contact with pets and other animals while you are sick with COVID-19, just like you would around other people. Although there have not been reports of pets or other animals becoming sick with COVID-19, it is still recommended that people sick with COVID-19 limit contact with animals until more information is known about the virus. When possible, have another member of your household care for your animals while you are sick. If you are sick with COVID-19, avoid contact with your pet, including petting, snuggling, being kissed or licked, and sharing food. If you must care for your pet or be around animals while you are sick, wash your hands before and after you interact with pets and wear a face mask. Call ahead before visiting your doctor If you have a medical appointment, call the healthcare provider and tell them that you have or may have COVID-19. This will help the healthcare providers office take steps to keep other people from getting infected or exposed. Wear a face mask You should wear a face mask when you are around other people (e.g., sharing a room or vehicle) or pets and before you enter a healthcare providers office. If you are not able to wear a face mask (for example, because it causes trouble breathing), then people who live with you should not stay in the same room with you, or they should wear a face mask if they enter your room. Cover your coughs and sneezes Cover your mouth and nose with a tissue when you cough or sneeze. Throw used tissues in a lined trash can. Immediately wash your hands with soap and water for at least 20 seconds or, if soap and water are not available, clean your hands with an alcohol-based hand senior site manager that contains at least 60% alcohol. Clean your hands often Wash your hands often with soap and water for at least 20 seconds, especially after blowing your nose, coughing, or sneezing; going to the bathroom; and before eating or preparing food. If soap and water are not readily available, use an alcohol-based hand senior site manager with at least 60% alcohol, covering all surfaces of your hands and rubbing them together until they feel dry. Soap and water are the best option if hands are visibly dirty. Avoid touching your eyes, nose, and mouth with unwashed hands. Avoid sharing personal household items You should not share dishes, drinking glasses, cups, eating utensils, towels, or bedding with other people or pets in your home. After using these items, they should be washed thoroughly with soap and water. Clean all high-touch surfaces everyday High touch surfaces include counters, tabletops, doorknobs, bathroom fixtures, toilets, phones, keyboards, tablets, and bedside tables. Also, clean any surfaces that may have blood, stool, or body fluids on them. Use a household cleaning spray or wipe, according to the label instructions. Labels contain instructions for safe and effective use of the cleaning product including precautions you should take when applying the product, such as wearing gloves and making sure you have good ventilation during use of the product. Monitor your symptoms Seek prompt medical attention if your illness is worsening (e.g., difficulty breathing).Beforeseeking care, call your healthcare provider and tell them that you have, or are being evaluated for, COVID-19. Put on a face mask before you enter the facility. These steps will help the healthcare providers office to keep other people in the office or waiting room from getting infected or exposed. Ask your healthcare provider to call the local or state health department. Persons who are placed under active monitoring or facilitated self- monitoring should follow instructions provided by their local health department or occupational health professionals, as appropriate. When working with your local health department check their available hours. If you have a medical emergency and need to call 911, notify the dispatch personnel that you have, or are being evaluated for COVID-19. If possible, put on a face mask before emergency medical services arrive. Discontinuing home isolation Patients with confirmed COVID-19 should remain under home isolation precautions until the risk of secondary transmission to others is thought to be low. The decision to discontinue home isolation precautions should be made on a [id number] basis, in consultation with healthcare providers and state and local health departments. OK TO COME OFF HOME ISOLATION 10 DAYS AFTER SYMPTOM ONSET. PLEASE CONTINUE TO WEAR A MASK N PUBLIC AND AROUND THOSE WITH WEAKENED IMMUNE SYSTEMS, AND SOCIAL DISTANCE FROM OTHERS APPROPRIATE. Pending Studies at Discharge: No Stand-Alone Forms: My [facility] Medications and DC Order Prescriptions: New doxycycline hyclate 100 mg Capsule 100 mg PO BID Qty: 10 RF: 0 metoprolol succinate 50 mg Tablet Extended Release 24 Hr 50 mg PO BID Qty: 60 RF: 0 prednisone 20 mg Tablet 40 mg PO DAILY Qty: 10 RF: 0 Continued dicyclomine 10 mg capsule 10 mg PO BID PRN (Reason: Abdominal Discomfort) RF: 0 pantoprazole 40 mg Tablet,Delayed Release (Dr/Ec) 40 mg PO BID Qty: 60 RF: 0 acetaminophen [Tylenol Extra Strength] 500 mg Tablet 1,000 mg PO Q6H PRN (Reason: Fever Or Pain) Qty: 60 RF: 0 levothyroxine [Synthroid] 88 mcg tablet 88 mcg PO QAM Qty: 30 RF: 0 promethazine 25 mg tablet 25 mg PO Q6H PRN (Reason: Nausea) RF: 0 metoclopramide HCl 10 mg tablet 10 mg PO TID RF: 0 cyanocobalamin (vitamin B-12) [Vitamin B-12] 1,000 mcg Tablet 1,000 mcg PO DAILY RF: 0 1 + Iron 65 mg iron- 1 mg Tablet 1 tab PO HS RF: 0 Eliquis 5 mg tablet 5 mg PO BID RF: 0 Discontinued metoprolol succinate 25 mg tablet extended release 24 hr See Rx Instructions .ROUTE .COMPLEX RF: 0 Discharge Orders: Discharge Order (Routine); Ordered 10/06/21 Ordered By: Juliane Long Admission Data Admit Date/Time: 10/02/21 23:23 Attending Provider: Juliane Long Admit Provider: Leandro Gusman Primary Care Provider: Jaleel Coppola Other Providers: Leandro Gusman ; Syed Cruz
[2021-10-06] MEDS ORDERED: COVID-19 VAC,AD26(JANSSEN)/PF 0.5 ML SYR IM ONE (12:00)
== END 2021-10-06 10:44 | disposition home or self-care (01) ==
LOC: ED 19:44 → EDINP 23:23 → SUATTDRO 23:23 → INTOOBSV 23:23 → 2W 10-03 15:42

== ENCOUNTER 2021-11-13 17:06 | Inpatient (IN) ==
[2021-11-13] MEDS ORDERED: SODIUM CHLORIDE 0.9% 1000ML 1,000 ML IV STA (17:16)
--- NOTE | 2021-11-13 17:19 | Emergency Department Note ---
Impression & Plan Nausea & vomiting DC ED Provider Note HPI: The patient is a 61-year-old female with history of paroxysmal atrial fibrillation, history of hypertension, history of gastroparesis, presents the emergency department with about 24 hours of abdominal pain consistent with gas troparesis episode she has had in the past. Patient states that she feels the need to vomit but "I cannot". States she has had some dry heaving. States that she has mid abdominal pain that radiates to her back. She states that this is relatively severe in nature over the past 24 hours or so, she states she has had similar episodes in the past that were attributed to gastroparesis. Patient den ies any chest pain, on arrival to the ED the patient is hemodynamically stable, she is in mild distress secondary to pain on arrival. She is saturating well on room air on my initial assessment. ROS: -GI: Abdominal pain, nausea *10 point review systems was conducted and is otherwise negative unless stated above *Outpatient medications and allergy history reviewed PE: General: Alert, moderate distress secondary to nausea and vomiting HEENT: Normocephalic, atraumatic Eyes: Extraocular eye movement is intact, no scleral erythema Pulmonary: Clear to auscultation bilaterally, no wheezing Cardio: Tachycardic rate with a regular rhythm GI: Abdomen is soft, mild tenderness to palpation diffusely : No suprapubic tenderness MSK: No evidence of trauma or malformation of the extremities, no edema Skin: No evidence of rash Neuro: Alert, no focal deficits Psychiatric: Cooperative quality assurance monitor final: - An order was placed for continuous cardiac monitoring - Patient was noted to be in atrial fibrillation rhythm with rate of 133 EKG: Rate: 129 Rhythm: Atrial fibrillation with RVR Intervals: QTC 530 ms, otherwise within normal limits ST changes: No ST elevation Time: 1714 Medical Decision Making: Patient presented to the emergency department with intractable nausea and vomit ing, states this is been worsening over the past 2 to 3 days. States she does have a history of gastroparesis. On arrival here to the ED the patient is in moderate distress secondary to nausea and vomiting. She is noted to be tachycardic in the 130s. Patient denies any chest pain or shortness of breath. States she does have some abdominal discomfort. Patient was given morphine, Zofran, IV fluids, CT imaging of the abdomen pelvis was obtained that does not show any evidence of any acute intra-abdominal process, no bowel obstruction. My reassessment the patient remains tachycardic despite IV fluid resuscitation, she was given Reglan and Benadryl as the Zofran did not cause any improvement in her symptoms. At this time patient states she feels she needs to be admitted. She remains tachycardic therefore I believe this is likely necessary. Patient remains in A. fib with intermittent heart rate in the 1 teens to 120s, at this time we will continue with fluid resuscitation and treatment for nausea and vomiting which I believe is the underlying cause for tachycardia. Will avoid rate control medications at this time as the patient's blood pressure is stable. [facility] hospitalist service who is familiar with the patient was consulted for admission. Patient was admitted in stable condition. Diagnosis: 1. Intractable nausea and vomiting 2. History of gastroparesis 3. Atrial fibrillation with RVR Disposition: Admission Mele Roa DO Emergency Medicine Past Med/Surg History Medical History Acidosis, lactic Anxiety Asthma COPD (chronic obstructive pulmonary disease) COVID-19 Depression Diverticulosis Frequent PVCs GERD (gastroesophageal reflux disease) H/O irritable bowel syndrome HTN (hypertension) Hypomagnesemia Hypothyroidism Intractable nausea and vomiting Mitral regurgitation "moderate per echo 09/21/15" Neuropathy Paroxysmal A-fib Pemphigus vulgaris Prolonged QT interval Tobacco abuse Surgical History History of bladder surgery History of laparoscopic partial gastrectomy History of pyloroplasty History of total hysterectomy Hx of cholecystectomy Hx of tonsillectomy S/P hysterectomy S/P laparoscopic sleeve gastrectomy S/P partial gastrectomy S/P repair of paraesophageal hernia "resulted in volvulus, required abdominal exploration" S/P tonsillectomy and adenoidectomy Family History Mother DM type 2 (diabetes mellitus, type 2) Coronary heart disease Social History Smoking Status: Never smoker Tobacco Type: Cigarettes Cigarettes Per Day: 1 ppd; Second Hand Exposure: Yes; Hx Alcohol Use: Yes Alcohol type: beer Alcohol Intake Frequency Comment: 3-4 beers/week Hx Substance Use: No Preferred Language: Arabic Communication Ability: Effective Theater Technician Required: No Beliefs That Will Affect Care: None marital status: Single Current Living Situation: Family Current Living Situation Comment: Pt lives with brother How many Children do You have: 2 Feels Safe at Home: Yes Assistive Devices: None Allergies Allergies Allergy/AdvReac Type Severity Reaction Status Date / Time adhesive Allergy Mild POWERS SKIN Verified 11/13/21 17:57 capsaicin Allergy Mild ITCHINESS Verified 11/13/21 17:57 amoxicillin AdvReac Intermediate yeast Verified 11/13/21 17:57 infection lactose AdvReac Intermediate Gastrointestinal Verified 11/13/21 17:57 Upset scopolamine AdvReac Intermediate rash from Verified 11/13/21 17:57 patch NSAIDS (Non-Steroidal AdvReac Mild indegestion Verified 11/13/21 17:57 Anti-Inflamma rofecoxib AdvReac Mild indigestion Verified 11/13/21 17:57 Home Meds Home Medications Medication Instructions Recorded Confirmed dicyclomine 10 mg capsule 10 mg PO BID PRN 12/17/19 11/13/21 metoclopramide HCl 10 mg tablet 10 mg PO TID 09/30/20 11/13/21 promethazine 25 mg tablet 25 mg PO Q6H PRN 09/30/20 11/13/21 apixaban 5 mg tablet (Eliquis) 5 mg PO BID 10/02/21 11/13/21 cyanocobalamin (vitamin B-12) 1,000 mcg PO DAILY 10/02/21 11/13/21 1,000 mcg tablet (Vitamin B-12) vitamins-iron fumarate 65 1 tab PO HS 10/02/21 11/13/21 mg iron-folic acid 1 mg tablet Previous Rx's Medication Instructions Recorded pantoprazole 40 mg tablet,delayed 40 mg PO BID #60 tab 12/10/19 release acetaminophen 500 mg tablet 1,000 mg PO Q6H PRN #60 tab 12/16/19 (Tylenol Extra Strength) levothyroxine 88 mcg tablet 88 mcg PO QAM #30 tab 12/16/19 (Synthroid) metoprolol succinate 50 mg 50 mg PO BID #60 tab 10/06/21 tablet,extended release 24 hr Results & Data (ED) Vital Signs Vital Signs - 24 hr 11/13/21 17:42 Temperature 36.9 C Temperature Source Temporal Artery Scan Pulse Rate 130 H Pulse Rhythm Regular Pulse Strength Normal Respiratory Rate 24 Respiratory Effort / Characteristics Non-Labored Spontaneous Respiratory Depth Normal Respiratory Pattern Regular Blood Pressure 149/114 H Blood Pressure Mean 125 Blood Pressure Position Sitting Pulse Oximetry 98 Oxygen Delivery Method Room Air Sepsis Recent Fever Within 48 Hours No Sepsis New/Unexplained Change in Mental Status N/A Sepsis Action Taken by Nursing No Action Required Laboratory Data Result diagrams: 11/13/21 17:35 11/13/21 17:35 Lab Results 11/13/21 11/13/21 11/13/21 Range/Units 17:35 17:35 17:35 WBC 9.11 (4.8-10.8) K/uL RBC 4.48 (4.2-5.4) M/uL Hgb 11.2 L (12.0-16.0) g/dL Hct 35.6 L (37-47) % MCV 79.5 L (80-100) fL MCH 25.0 (25-34) pg MCHC 31.5 L (32-36) g/dL RDW Std Deviation 46.5 H (36.4-46.3) fL RDW Coeff of Ana M 16.1 H (11.5-14.5) % Plt Count 384 (130-400) K/uL MPV 9.7 (7.4-10.4) fL Immature Gran % (Auto) 0.1 % Neut % (Auto) 83.6 % Lymph % (Auto) 13.0 % Surry % (Auto) 2.9 % Eos % (Auto) 0.3 % Baso % (Auto) 0.1 % Neut # (Auto) 7.62 H (1.4-6.5) K/uL Lymph # (Auto) 1.18 L (1.2-3.4) K/uL Surry # (Auto) 0.26 (0.11-0.59) K/uL Eos # (Auto) 0.03 (0-0.5) K/uL Baso # (Auto) 0.01 (0-0.2) K/uL Immature Gran # (Auto) 0.01 (0.00-0.02) K/uL PT 10.1 (9.0-12.0) Seconds INR 1.0 (0.9-1.1) Sodium 139 (136-145) mmol/L Potassium 4.0 (3.5-5.1) mmol/L Chloride 106 (98-107) mmol/L Carbon Dioxide 21 (21-32) mmol/L Anion Gap 12 H (3-11) BUN 14 (6-23) mg/dl Creatinine 0.91 (0.6-1.2) mg/dl Est Cr Clr Drug Dosing 71.7 ml/min Est GFR ( Amer) 77.8 ml/min Est GFR (Non-Af Amer) 67.1 ml/min BUN/Creatinine Ratio 15.4 (10-20) Glucose 146 H (70-99(Fasting)) mg/dl Calcium 8.9 (8.5-10.1) mg/dl Total Bilirubin 0.4 (0.2-1.0) mg/dl AST 13 (13-39) U/L ALT 14 (7-52) U/L Alkaline Phosphatase 95 (34-104) U/L Troponin I < 0.03 (0-0.04) ng/ml Total Protein 6.7 (6.0-8.3) gm/dl Albumin 4.0 (3.4-5.0) gm/dl Globulin 2.7 (2.5-4.0) gm/dl Albumin/Globulin Ratio 1.5 (0.9-2) Lipase 17 (11-82) U/L SARS-CoV-2, RNA, NAAT (NEGATIVE) 11/13/21 Range/Units 20:00 WBC (4.8-10.8) K/uL RBC (4.2-5.4) M/uL Hgb (12.0-16.0) g/dL Hct (37-47) % MCV (80-100) fL MCH (25-34) pg MCHC (32-36) g/dL RDW Std Deviation (36.4-46.3) fL RDW Coeff of Ana M (11.5-14.5) % Plt Count (130-400) K/uL MPV (7.4-10.4) fL Immature Gran % (Auto) % Neut % (Auto) % Lymph % (Auto) % Surry % (Auto) % Eos % (Auto) % Baso % (Auto) % Neut # (Auto) (1.4-6.5) K/uL Lymph # (Auto) (1.2-3.4) K/uL Surry # (Auto) (0.11-0.59) K/uL Eos # (Auto) (0-0.5) K/uL Baso # (Auto) (0-0.2) K/uL Immature Gran # (Auto) (0.00-0.02) K/uL PT (9.0-12.0) Seconds INR (0.9-1.1) Sodium (136-145) mmol/L Potassium (3.5-5.1) mmol/L Chloride (98-107) mmol/L Carbon Dioxide (21-32) mmol/L Anion Gap (3-11) BUN (6-23) mg/dl Creatinine (0.6-1.2) mg/dl Est Cr Clr Drug Dosing ml/min Est GFR ( Amer) ml/min Est GFR (Non-Af Amer) ml/min BUN/Creatinine Ratio (10-20) Glucose (70-99(Fasting)) mg/dl Calcium (8.5-10.1) mg/dl Total Bilirubin (0.2-1.0) mg/dl AST (13-39) U/L ALT (7-52) U/L Alkaline Phosphatase (34-104) U/L Troponin I (0-0.04) ng/ml Total Protein (6.0-8.3) gm/dl Albumin (3.4-5.0) gm/dl Globulin (2.5-4.0) gm/dl Albumin/Globulin Ratio (0.9-2) Lipase (11-82) U/L SARS-CoV-2, RNA, NAAT NEGATIVE (NEGATIVE) Administered Medications Sodium Chloride (Nss 1000ml) 1,000 mls @ 999 mls/hr IV .Q1H1M ONE Stop: 11/13/21 20:31 Last Admin: 11/13/21 19:57 Dose: 999 mls/hr Documented by: [id number] Discontinued Medications Diphenhydramine HCl (Diphenhydramine 50 Mg/Ml Vial) 50 mg IV NOW STA Stop: 11/13/21 19:51 Last Admin: 11/13/21 19:57 Dose: 50 mg Documented by: [id number] Sodium Chloride (Nss 1000ml) 1,000 mls @ 999 mls/hr IV .Q1H1M STA Stop: 11/13/21 18:16 Last Infusion: 11/13/21 19:24 Dose: 0 mls/hr Documented by: [id number] Admin: 11/13/21 17:31 Dose: 999 mls/hr Documented by: [id number] Ioversol (Optiray 320 100ml) 94 ml IV ONCE ONE Stop: 11/13/21 18:59 Last Admin: 11/13/21 18:58 Dose: 94 ml Documented by: [id number] Metoclopramide HCl (Metoclopramide Hcl Inj 5 Mg/Ml 2 Ml Vial) Confirm Adm inistered Dose 10 mg .ROUTE .STK-MED ONE Stop: 11/13/21 17:56 Last Admin: 11/13/21 17:57 Dose: 10 mg Documented by: [id number] Morphine Sulfate (Morphine Sulfate 4 Mg/Ml 1 Ml Carp\\Vial) Confirm Administered Dose 4 mg .ROUTE .STK-MED ONE Stop: 11/13/21 17:26 Last Admin: 11/13/21 17:31 Dose: 4 mg Documented by: [id number] Ondansetron HCl (Ondansetron Inj 2 Mg/Ml 2 Ml Vial) Confirm Administered Dose 4 mg .ROUTE .STK-MED ONE Stop: 11/13/21 17:26 Last Admin: 11/13/21 17:31 Dose: 4 mg Documented by: [id number] Imaging Data Radiologist's Impression: Abdomen/Pelvis CT 11/13/21 17:[address] WITH IV CONTRAST CT DOSE: 592.03 mGy.cm HISTORY: Acute generalized abdominal pain with history of gastroparesis Abdominal pain, hx of gastroparesis TECHNIQUE: Multiaxial CT images of the abdomen and pelvis were performed following the IV administration of 94 cc of Optiray, A dose lowering technique was utilized adhering to the principles of ALARA. COMPARISON STUDY: CTA chest 10/10/2020, CTA abdomen and pelvis 07/04/2020 FINDINGS: Cardiac megaly with partially imaged pacer leads. Mild subsegmental bibasilar atelectasis. No pneumatosis or pneumoperitoneum. Fluid-filled distended distal esophagus has progressed from prior. Calcification versus extraluminal contrast adjacent to the gastroesophageal junction is unchanged. Chronic postoperative changes of the stomach. Unremarkable spleen, pancreas and left adrenal gland. Stable right adrenal gland adenoma, 2.3 cm. Cholecystectomy. Extrahepatic biliary ductal dilation redemonstrated, likely postsurgical. Unremarkable liver. Patent portal vein. There are a few scattered subcentimeter hypodensities of the right kidney which are too small to characterize however favor cysts measuring up to 7 mm. No urolith or hydronephrosis. Unremarkable urinary bladder. Hysterectomy. No abdominal aortic aneurysm. No bowel obstruction or bowel wall thickening. Colonic diverticulosis without acute diverticulitis. Normal appendix. Unremarkable soft tissues. Degenerative changes of the spine, pelvis and hips. No acute fracture. IMPRESSION: 1. No acute intra-abdominal or intrapelvic abnormality. 2. No bowel obstruction or bowel wall thickening. Normal appendix. 3. Colonic diverticulosis. 4. Chronic postoperative changes of the stomach with mild distention of the distal esophagus. ACT 112: Negative or not required by law. The above report was generated using voice recognition software. It may contain grammatical, syntax or spelling errors. Electronically signed by: Daniele Reis M.D. 11/13/2021 7:26 PM Chest X-Ray 11/13/21 17:17 XR chest 1V portable HISTORY: 61 years-old Female upper ABD pain acute upper abdominal pain COMPARISON: Chest radiograph 10/02/2021 TECHNIQUE: AP view of the chest FINDINGS: Cardiac silhouette is enlarged. Left subclavian pacer. Right IJ [id number] catheter distal tip is noted in the expected location of the mid to inferior SVC. No pneumothorax or large pleural effusion. Small hiatal hernia with unchanged radiodense focus adjacent to the distal esophagus. Unchanged blunting of the costophrenic angles with mild linear subsegmental left basilar atelectasis/scarring. Degenerative changes of the shoulders and spine. IMPRESSION: Cardiomegaly without acute process. ACT 112: Negative or not required by law. The above report was generated using voice recognition software. It may contain grammatical, syntax or spelling errors. Electronically signed by: Daniele Reis M.D. 11/13/2021 5:46 PM Discharge Plan Visit Data Chief Complaint: Abdominal Pain Stated Complaint: Abdominal Pain ED Provider: Mele Roa Discharge Problem: Nausea & vomiting Forms Stand Alone Forms: OY LX Therapies Prescriptions Prescriptions: No Action dicyclomine 10 mg capsule 10 mg PO BID PRN (Reason: Abdominal Discomfort) RF: 0 pantoprazole 40 mg Tablet,Delayed Release (Dr/Ec) 40 mg PO BID Qty: 60 RF: 0 acetaminophen [Tylenol Extra Strength] 500 mg Tablet 1,000 mg PO Q6H PRN (Reason: Fever Or Pain) Qty: 60 RF: 0 levothyroxine [Synthroid] 88 mcg tablet 88 mcg PO QAM Qty: 30 RF: 0 promethazine 25 mg tablet 25 mg PO Q6H PRN (Reason: Nausea) RF: 0 metoclopramide HCl 10 mg tablet 10 mg PO TID RF: 0 cyanocobalamin (vitamin B-12) [Vitamin B-12] 1,000 mcg Tablet 1,000 mcg PO DAILY RF: 0 vit-iron fum-folic ac 65 mg iron- 1 mg Tablet 1 tab PO HS RF: 0 Eliquis 5 mg tablet 5 mg PO BID RF: 0 metoprolol succinate 50 mg Tablet Extended Release 24 Hr 50 mg PO BID Qty: 60 RF: 0 Referrals Referrals: Jaleel Coppola MD [Primary Care Provider] - Discharge Problem: Nausea & vomiting Qualifiers: Vomiting type: unspecified Qualified Code(s): R11.2 - Nausea with vomiting, unspecified
[2021-11-13] MEDS ORDERED: ONDANSETRON INJ 2 MG/ML 2 ML VIAL ONE (17:25)
[2021-11-13] MEDS ORDERED: MoRPHine SULFATE 4 MG/ML 1 ML CARP\\VIAL ONE (17:25)
--- NOTE | 2021-11-13 17:48 | XRay Report ---
XR chest 1V portable HISTORY: 61 years-old Female upper ABD pain acute upper abdominal pain COMPARISON: Chest radiograph 10/02/2021 TECHNIQUE: AP view of the chest FINDINGS: Cardiac silhouette is enlarged. Left subclavian pacer. Right IJ Isvzcs-r-Mcyj catheter distal tip is noted in the expected location of the mid to inferior SVC. No pneumothorax or large pleural effusion. Small hiatal hernia with unchanged radiodense focus adjacent to the distal esophagus. Unchanged blun ting of the costophrenic angles with mild linear subsegmental left basilar atelectasis/scarring. Dege nerative changes of the shoulders and spine. IMPRESSION: Cardiomegaly without acute process. ACT 112: Negative or not required by law. The above report was generated using voice recognition software. It may contain grammatical, syntax o r spelling errors. Electronically signed by: Daniele Reis M.D. 11/13/2021 5:46 PM
[2021-11-13 17:50] LABS: Basophils # (auto) 0.01 K/uL (0-0.2); Basophils % (auto) 0.1 %; Eosinophils # (auto) 0.03 K/uL (0-0.5); Eosinophils % (auto) 0.3 %; Hematocrit (blood only) 35.6 % (37-47); Hemoglobin 11.2 g/dL (12.0-16.0); Immature Granulocytes # (auto) 0.01 K/uL (0.00-0.02); Immature Granulocytes % (auto) 0.1 %; Lymphocytes # (auto) 1.18 K/uL (1.2-3.4); Mean Corpuscular Hgb Conc 31.5 g/dL (32-36); Mean Corpuscular Volume 79.5 fL (80-100); Mean Platelet Volume 9.7 fL (7.4-10.4); Monocytes # (auto) 0.26 K/uL (0.11-0.59); Monocytes % (auto) 2.9 %; Neutrophils # (auto) 7.62 K/uL (1.4-6.5); Neutrophils % (auto) 83.6 %; Platelet Count 384 K/uL (130-400); RDW Coefficient of Variation 16.1 % (11.5-14.5); RDW Standard Deviation 46.5 fL (36.4-46.3); Red Blood Count 4.48 M/uL (4.2-5.4); White Blood Count 9.11 K/uL (4.8-10.8)
[2021-11-13] MEDS ORDERED: METOCLOPRAMIDE HCL INJ 5 MG/ML 2 ML VIAL ONE (17:55)
[2021-11-13 18:04] LABS: Prothrombin Time 10.1 Seconds (9.0-12.0)
[2021-11-13 18:10] LABS: Alanine Aminotransferase 14 U/L (7-52); Albumin Globulin Ratio 1.5 (0.9-2); Alkaline Phosphatase 95 U/L (34-104); Anion Gap 12 (3-11); Aspartate Aminotransferase 13 U/L (13-39); BUN Creatinine Ratio 15.4 (10-20); Bilirubin,Total 0.4 mg/dl (0.2-1.0); Blood Urea Nitrogen 14 mg/dl (6-23); Calcium 8.9 mg/dl (8.5-10.1); Carbon Dioxide 21 mmol/L (21-32); Chloride 106 mmol/L (98-107); Creatinine Clr Calc Pharmacy 71.7 ml/min; Est GFR (African American) 77.8 ml/min; Est GFR (Non-African American) 67.1 ml/min; Globulin 2.7 gm/dl (2.5-4.0); Glucose 146 mg/dl (70-99(Fasting)); Lipase 17 U/L (11-82); Sodium 139 mmol/L (136-145); Total Protein 6.7 gm/dl (6.0-8.3)
[2021-11-13 18:12] LABS: Troponin I < 0.03 ng/ml (0-0.04)
[2021-11-13] MEDS ORDERED: OPTIRAY 320 100ml IV ONE (18:58)
--- NOTE | 2021-11-13 19:27 | CT Scan Report ---
ABDOMEN AND PELVIS CT WITH IV CONTRAST CT DOSE: 592.03 mGy.cm HISTORY: Acute generalized abdominal pain with history of gastroparesis Abdominal pain, hx of gastro paresis TECHNIQUE: Multiaxial CT images of the abdomen and pelvis were performed following the IV administrat ion of 94 cc of Optiray, A dose lowering technique was utilized adhering to the principles of ALARA. COMPARISON STUDY: CTA chest 10/10/2020, CTA abdomen and pelvis 07/04/2020 FINDINGS: Cardiac megaly with partially imaged pacer leads. Mild subsegmental bibasilar atelectasis. No pneumatosis or pneumoperitoneum. Fluid-filled distended distal esophagus has progressed from prior . Calcification versus extraluminal contrast adjacent to the gastroesophageal junction is unchanged. Chronic postoperative changes of the stomach. Unremarkable spleen, pancreas and left adrenal gland. S table right adrenal gland adenoma, 2.3 cm. Cholecystectomy. Extrahepatic biliary ductal dilation rede monstrated, likely postsurgical. Unremarkable liver. Patent portal vein. There are a few scattered subcentimeter hypodensities of the right kidney which are too small to lexie acterize however favor cysts measuring up to 7 mm. No urolith or hydronephrosis. Unremarkable urinary bladder. Hysterectomy. No abdominal aortic aneurysm. No bowel obstruction or bowel wall thickening. Colonic diverticulosis without acute diverticulitis. Normal appendix. Unremarkable soft tissues. Dege nerative changes of the spine, pelvis and hips. No acute fracture. IMPRESSION: 1. No acute intra-abdominal or intrapelvic abnormality. 2. No bowel obstruction or bowel wall thickening. Normal appendix. 3. Colonic diverticulosis. 4. Chronic postoperative changes of the stomach with mild distention of the distal esophagus. ACT 112: Negative or not required by law. The above report was generated using voice recognition software. It may contain grammatical, syntax o r spelling errors. Electronically signed by: Daniele Reis M.D. 11/13/2021 7:26 PM
[2021-11-13] MEDS ORDERED: SODIUM CHLORIDE 0.9% 1000ML 1,000 ML IV ONE (19:31)
[2021-11-13] MEDS ORDERED: diphenhydrAMINE 50 MG/ML VIAL IV STA (19:50)
[2021-11-13 22:13] LABS: Appearance Urine Clear (Clear); Bilirubin Urine Negative (Negative); Blood Urine Negative (Negative); Color Urine Yellow; Glucose Urine UA Trace (Negative); Ketones Urine 1+ (Negative); Leukocyte Esterase Urine Negative (Negative); Nitrite Urine Negative (Negative); Protein Urine Negative (Negative); Specific Gravity Urine > 1.045 (1.000-1.030); Urobilinogen Urine Negative (Negative)
[2021-11-13] MEDS ORDERED: ACETAMINOPHEN 325 MG TAB PO PRN (22:55)
[2021-11-13] MEDS ORDERED: HYDROmorphone INJ 0.5 MG/0.5 ML SYR IV PRN (22:55)
[2021-11-13] MEDS ORDERED: NITROGLYCERIN SL 0.4 MG/TAB TAB SL PRN (22:55)
[2021-11-13] MEDS: D5W AND NSS 1,000 ML IV SCH (23:02)
[2021-11-13] MEDS: PROMETHAZINE HCL 12.5 MG in SODIUM CHLORIDE 0.9% 50 ML IV PRN (23:08)
[2021-11-13] MEDS: METOPROLOL SUCC 50MG EXT REL TAB PO SCH (23:30)
[2021-11-13] MEDS: METOPROLOL TARTRATE 1 MG/ML VIAL IV PRN (23:33)
[2021-11-14] MEDS ORDERED: dilTIAZem HCl 5 MG/ML 5 ML VIAL IV STA (00:27)
--- NOTE | 2021-11-14 00:58 | History and Physical Report ---
DATE OF ADMISSION: 11/13/2021. CHIEF COMPLAINT: Nausea, vomiting, abdominal pain. HISTORY OF PRESENT ILLNESS: This is a 61-year-old female with past medical history significant for atrial fibrillation, tachybrady syndrome, status post pacemaker, history of hiatal hernia, status post surgery, since then having gastroparesis as per the patient, history of prolonged QT, history of COPD, chronic kidney disease stage III, history of anemia, history of mitral regurgitation, hypothyroidism, status post right subclavian port, ongoing tobacco use, history of pernicious anemia, iron deficiency anemia, history of pemphigus, general anxiety disorder, presents with nausea, vomiting, abdominal pain. The patient with multiple admissions for nausea and abdominal pain from gastroparesis. Has nausea but the patient says she is not able to bring much,, small amount of vomitus. Has abdominal pain radiating to back. Says was able to take pills. Denies any chest pain. She says that she is short of breath since she got COVID first time, last month when she had again recurrent COVID, but today it is negative. Denies any fever, denies any headache. No blurred visions, no earache, no, no runny nose, no sore throat. Had a bowel movement today, it was normal. Normal bladder movements. No swelling in the legs. Ambulating okay. Currently, the patient is tachycardic in the ER. ALLERGIES: ADHESIVES, CAPSAICIN, AMOXICILLIN, LACTULOSE, SCOPOLAMINE, NSAIDs, ROFECOXIB. PAST MEDICAL HISTORY: As mentioned above. PAST SURGICAL HISTORY: Biopsy of breast, colonoscopy, EGDs, EGD with transendoscopic dilatation, EGD with biopsy, exploratory laparotomy, insertion of A-port, laparoscopic cholecystectomy, paraesophageal hernia repair, laparoscopic pyloroplasty, removal of the left ovary, laparoscopic partial gastrectomy, sigmoidoscopy, tonsillectomy, adenoidectomy, upper GI endoscopy with stent placement. MEDICATIONS: The patient is on Tylenol Extra Strength 1000 mg p.o. q. 6 hours p.r.n., vitamin B12 1000 mcg p.o. daily, dicyclomine 10 mg p.o. b.i.d. p.r.n., Eliquis 5 mg p.o. b.i.d., levothyroxine 88 mcg p.o. a.m., metoclopramide 10 mg p.o. t.i.d., metoprolol succinate 50 mg p.o. b.i.d., Protonix 40 mg p.o. b.i.d., vitamins 1 tablet p.o. at bedtime, promethazine 25 mg p.o. q. 6 hours p.r.n. FAMILY HISTORY: Significant for brother has allergies, mother has arthritis, diabetes, heart disorder, daughter has migraines; father has aneurysm, thyroid cancer. SOCIAL HISTORY: , currently smokes on average 1 pack a day for 20 years. Alcohol socially. No drug use. REVIEW OF SYSTEMS: As per HPI. Rest of the review of systems is negative. PHYSICAL EXAMINATION: GENERAL: The patient is of moderate build, not in acute distress. VITAL SIGNS: Temperature 36.9, pulse 130, respiratory rate 24, blood pressure 164/102, oxygen 98% on room air. HEENT: Pupils equal, round and reactive to light. Oral mucosa moist. NECK: No JVD. No neck masses. CARDIOVASCULAR: S1 and S2 heard, tachycardia, irregular rhythm. No murmurs. RESPIRATORY SYSTEM: Normal AP diameter. No accessory muscle use. No wheezing, no crackles. ABDOMEN: Soft, bowel sounds present. Diffuse mild discomfort, no guarding, no rigidity, no distention. CENTRAL NERVOUS SYSTEM: Alert and oriented. Speech is clear. No facial droop. Insight is good. Obeys simple commands. Moves extremities. EXTREMITIES: No edema, no erythema. LABORATORY DATA: WBC 9.1, hemoglobin 11.2, hematocrit 35.6, platelets 384. PT 10.1, INR 1. Sodium 139, potassium 4, chloride 106, bicarbonate 21, BUN 14, creatinine 0.9, serum glucose 146, calcium 8.9, total bilirubin 0.4, AST 13, ALT 14, alkaline phosphatase 94. Troponin I less than 0.03, lipase 70. SARS-CoV-2 RNA negative. Chest x-ray, cardiomegaly without acute process. CT of abdomen and pelvis with IV contrast, no acute intraabdominal or intrapelvic abnormality, no bowel obstruction or bowel wall thickening. Normal appendix, colonic diverticulosis. Chronic postoperative changes. Stomach with mild distention of the distal esophagus. ASSESSMENT AND PLAN: This is a 61-year-old female who presents with persistent nausea, vomiting. 1. Persistent nausea, vomiting, history of gastroparesis. We will place on IV Phenergan p.r.n. because of prolonged QT on the EKG. IV fluids. N.p.o. except meds. If not getting better consult, consult GI. Monitor on tele floor. 2. History of atrial fibrillation, tachybrady syndrome, status post pacemaker, history of paroxysmal atrial tachycardia: On metoprolol succinate 50 mg p.o. t.i.d. and Eliquis, which will be continued, as the patient says she was able to take p.o., currently having tachycardia, possibly from dehydration and ongoing symptoms. We will place her on IV Lopressor p.r.n. and monitor in the tele floor. 3. Hypothyroidism. Continue Synthroid. 4. Gastroesophageal reflux disease: We will place on IV Protonix. 5. Chronic obstructive pulmonary disease. Currently stable. 6. History of iron deficiency pernicious anemia. Currently, hemoglobin stable at 11.2. 7. Deep venous thrombosis prophylaxis: On Eliquis. DISPOSITION: Closely monitor in the tele floor. Level 1 full code. Expect to discharge home and follow with family doctor. Job ID: [id number]
[2021-11-14] MEDS ORDERED: METOCLOPRAMIDE HCL INJ 5 MG/ML 2 ML VIAL IV ONE (01:41)
[2021-11-14] MEDS: METOPROLOL TARTRATE 1 MG/ML VIAL IV PRN (05:46)
[2021-11-14] MEDS: PROMETHAZINE HCL 12.5 MG in SODIUM CHLORIDE 0.9% 50 ML IV PRN ×3 (05:47→20:12)
[2021-11-14 06:03] LABS: Hematocrit (blood only) 34.6 % (37-47); Hemoglobin 10.6 g/dL (12.0-16.0); Immature Granulocytes # (auto) 0.03 K/uL (0.00-0.02); Immature Granulocytes % (auto) 0.3 %; Lymphocytes # (auto) 0.95 K/uL (1.2-3.4); Lymphocytes % (auto) 10.7 %; Mean Corpuscular Hemoglobin 24.7 pg (25-34); Mean Corpuscular Hgb Conc 30.6 g/dL (32-36); Mean Corpuscular Volume 80.7 fL (80-100); Mean Platelet Volume 9.9 fL (7.4-10.4); Monocytes # (auto) 0.29 K/uL (0.11-0.59); Monocytes % (auto) 3.3 %; Neutrophils # (auto) 7.65 K/uL (1.4-6.5); Neutrophils % (auto) 85.7 %; Platelet Count 360 K/uL (130-400); RDW Coefficient of Variation 16.3 % (11.5-14.5); RDW Standard Deviation 48.2 fL (36.4-46.3); Red Blood Count 4.29 M/uL (4.2-5.4); White Blood Count 8.92 K/uL (4.8-10.8)
[2021-11-14] MEDS: LEVOTHYROXINE SODIUM 88 MCG TABLET PO SCH (06:05)
[2021-11-14 06:32] LABS: BUN Creatinine Ratio 13.8 (10-20); Calcium 8.1 mg/dl (8.5-10.1); Creatinine Clr Calc Pharmacy 79.8 ml/min; Est GFR (African American) 90.9 ml/min; Est GFR (Non-African American) 78.5 ml/min; Magnesium 1.7 mg/dl (1.7-2.4)
[2021-11-14] MEDS: D5W AND NSS 1,000 ML IV SCH (06:37)
[2021-11-14 07:33] LABS: Estimated Average Glucose 126 mg/dl
[2021-11-14] MEDS ORDERED: STAT IV Infusion **Titration per Protocol STA ×2 (07:57→09:23)
[2021-11-14] MEDS ORDERED: dilTIAZem HCL 125 MG in DEXTROSE 5% 100 ML IV SCH (08:00)
[2021-11-14] MEDS: SODIUM CHLORIDE 0.9% 1000ML 1,000 ML IV SCH ×2 (08:40→22:22)
[2021-11-14] MEDS ORDERED: METOCLOPRAMIDE HCL 10 MG TABLET PO SCH (09:00)
[2021-11-14] MEDS ORDERED: AMIODARONE IV BOLUS & DRIP IV STA (09:23)
[2021-11-14] MEDS ORDERED: 0.2 MICRON FILTER SET 1 EA IV ONE (09:23)
[2021-11-14] MEDS ORDERED: AMIODARONE / D5W 150 MG/100 ML BAG IV STA (09:29)
[2021-11-14] MEDS ORDERED: FOSAPREPITANT DIMEGLUMINE 115 MG in 0.9 % SODIUM CHLORIDE 111.1667 ML IV ONE (09:30)
--- NOTE | 2021-11-14 09:34 | Cardiology Consultation ---
Date of Consultation November 14, 2021 Assessment & Plan (1) Paroxysmal A-fib: (2) Status post cardiac pacemaker procedure: (3) Intractable vomiting with nausea: Patient is a 61-year-old female with very complex underlying issues including chronic gastroparesis with intermittent episodes of severe nausea and emesis. In addition she has had episodes of paroxysmal atrial fibrillation with tachybradycardia syndrome status post pacemaker insertion. Recent history notable for acute Covid infection 1 month ago Patient presents with flare of gastroparesis with severe nausea and abdominal cramping poor p.o. intake and multiple episodes of emesis. She has lapsed back into atrial fibrillation with elevated ventricular response rate and associated hypertension as well. Options of management are somewhat limited, diltiazem contraindicated in the setting of gastroparesis. Beta-lauren at reasonable dose currently not persistently effective by pacer interrogation. Will initiate IV amiodarone cautiously in the setting of history of past QT prolongation prior EKGs reviewed in detail. Will follow EKGs closely hopefully amiodarone will allow successful conversion to sinus rhythm and maintenance with less variability in rhythm with any missed doses secondary to emesis We will continue metoprolol currently as ordered given elevation in blood pressure. Continue anticoagulation with Eliquis however if patient persistently missing doses may need conversion to IV heparin Metoclopramide currently on hold due to possible interaction with amiodarone we will discuss with management team History of Present Illness Reason for Consultation: Atrial fibrillation with rapid response Requesting Physician: Charlie Maher MD Attending Physician: Charlie Maher MD History of Present Illness Patient is a complex 61-year-old female with ongoing issues include 1. Paroxysmal atrial tachycardia/paroxysmal atrial fibrillation 2. Tachybradycardia syndrome status post dual-chamber pacemaker insertion 01/2021 (His bundle lead), [employer] XT DR MRI [id number] 3. Severe gastroparesis with intractable nausea 4. Intermittent QT prolongation 5. Acute COVID-19 infection 10/04/2021 Patient is referred for evaluation, in hospital, after presentation with severe abdominal cramping nausea and vomiting with poor p.o. intake. Patient has been able to take her usual medications but has been tachycardic in atrial fibrillation since presentation. She denies chest pain shortness of breath syncope near syncope dizziness or lightheadedness. No bleeding difficulties on chronic anticoagulation No acute fever chills or unexplained infections. Historically notable for Covid infection 1 month ago. Weight has been trending slightly upwards. No orthopnea or worsening peripheral edema. No change in sleep pattern. Patient very sedentary at home No irritation at pacemaker site or indwelling port Electrolytes and renal function within normal limits Allergies Allergy/AdvReac Type Severity Reaction Status Date / Time adhesive Allergy Mild POWERS SKIN Verified 11/13/21 17:57 capsaicin Allergy Mild ITCHINESS Verified 11/13/21 17:57 amoxicillin AdvReac Intermediate yeast Verified 11/13/21 17:57 infection lactose AdvReac Intermediate Gastrointestinal Verified 11/13/21 17:57 Upset scopolamine AdvReac Intermediate rash from Verified 11/13/21 17:57 patch NSAIDS (Non-Steroidal AdvReac Mild indegestion Verified 11/13/21 17:57 Anti-Inflamma rofecoxib AdvReac Mild indigestion Verified 11/13/21 17:57 Home Medications Medication Instructions Recorded Confirmed Type pantoprazole 40 mg tablet,delayed 40 mg PO BID #60 tab 12/10/19 11/13/21 Rx release acetaminophen 500 mg tablet 1,000 mg PO Q6H PRN #60 tab 12/16/19 11/13/21 Rx (Tylenol Extra Strength) levothyroxine 88 mcg tablet 88 mcg PO QAM #30 tab 12/16/19 11/13/21 Rx (Synthroid) dicyclomine 10 mg capsule 10 mg PO BID PRN 12/17/19 11/13/21 History metoclopramide HCl 10 mg tablet 10 mg PO TID 09/30/20 11/13/21 History promethazine 25 mg tablet 25 mg PO Q6H PRN 09/30/20 11/13/21 History apixaban 5 mg tablet (Eliquis) 5 mg PO BID 10/02/21 11/13/21 History cyanocobalamin (vitamin B-12) 1,000 mcg PO DAILY 10/02/21 11/13/21 History 1,000 mcg tablet (Vitamin B-12) vitamins-iron fumarate 65 1 tab PO HS 10/02/21 11/13/21 History mg iron-folic acid 1 mg tablet metoprolol succinate 50 mg 50 mg PO BID #60 tab 10/06/21 11/13/21 Rx tablet,extended release 24 hr Patient History Medical History (Updated 11/14/21 @ 12:54 by Charlie Maher MD) Acidosis, lactic Anxiety Asthma COPD (chronic obstructive pulmonary disease) COVID-19 COVID-19 Depression Diverticulosis Frequent PVCs Gastroparesis GERD (gastroesophageal reflux disease) H/O irritable bowel syndrome HTN (hypertension) Hypokalemia Hypomagnesemia Hypomagnesemia Hypophosphatemia Hypothyroidism Intractable nausea and vomiting Mitral regurgitation "moderate per echo 09/21/15" Neuropathy Paroxysmal A-fib Pemphigus vulgaris Prolonged QT interval Tobacco abuse Surgical History History of bladder surgery History of laparoscopic partial gastrectomy History of pyloroplasty History of total hysterectomy Hx of cholecystectomy Hx of tonsillectomy S/P hysterectomy S/P laparoscopic sleeve gastrectomy S/P partial gastrectomy S/P repair of paraesophageal hernia "resulted in volvulus, required abdominal exploration" S/P tonsillectomy and adenoidectomy Family History Mother DM type 2 (diabetes mellitus, type 2) Coronary heart disease Social History Smoking Status: Heavy tobacco smoker Tobacco Type: Cigarettes Cigarettes Per Day: 1 ppd; Second Hand Exposure: Yes; Do You Dip or Chew Tobacco: No; Tobacco Cessation Education Requested by Patient: No Hx Alcohol Use: Yes Alcohol type: other Alcohol Intake Frequency Comment: 3-4 beers/week Hx Substance Use: No Preferred Language: Polish Communication Ability: Effective Bead Cutter Required: No Beliefs That Will Affect Care: None marital status: Single Current Living Situation: Family Current Living Situation Comment: Pt lives with brother How many Children do You have: 2 Feels Safe at Home: Yes Safety Concerns: Feels Safe At This Time Assistive Devices: None Review of Systems Review of Systems: All systems reviewed & are unremarkable except as noted in HPI & below Physical Exam Constitutional: + ill appearing and + obese Eyes: PERRL, conjunctivae normal, anicteric sclerae ENMT: external ear and nose normal, oropharynx normal Neck: trachea midline, no thyromegaly Respiratory: normal respiratory effort, lungs clear to auscultation Auscultation: no rales and no wheezes Cardiovascular: Rate/Rhythm: + tachycardic and + irregularly irregular Heart Sounds: normal S1 and normal S2; no gallop and no murmur Palpation: normal PMI Vessels: normal carotid upstroke and radial pulses present; no JVD and no carotid bruit Extremities: no edema Chest (Breasts): Chest: + pacemaker and + vascular access device or port Gastrointestinal (Abdomen): Inspection/Auscultation: + abdomen distended; no abdominal edema Percussion/Palpation: no guarding and no hepatosplenomegaly Musculoskeletal: no cyanosis or clubbing, extremities motor strength 5/5 Skin: no rashes, warm and dry Neurologic: PERRL, EOMI, accommodation nl, no face palsy, no dysarthria Psychiatric: A+Ox3, euthymic affect Results & Data ([facility]) Vital Signs (Past 12 Hours) Vital Signs Temp Pulse Pulse Resp BP BP Pulse Ox 11/14/21 08:32 36.6 C 101 H 20 154/114 H 96 11/14/21 05:46 135 H 135 H 151/119 H 151/119 H 11/14/21 03:44 36.8 C 115 H 20 161/110 H 97 11/14/21 00:45 128 H 160/117 H 11/13/21 23:33 131 H 151/90 H 11/13/21 23:29 36.8 C 131 H 24 151/90 H 99 11/13/21 22:55 36.8 C 131 H 24 151/90 H 99 11/13/21 22:13 120 H 20 124/96 94 Pulse Ox 11/14/21 08:32 11/14/21 05:46 11/14/21 03:44 11/14/21 00:45 11/13/21 23:33 11/13/21 23:29 11/13/21 22:55 99 11/13/21 22:13 Laboratory Results Laboratory Results - last 24 hr 11/13/21 11/13/21 11/13/21 17:35 17:35 17:35 WBC 9.11 RBC 4.48 Hgb 11.2 L Hct 35.6 L MCV 79.5 L MCH 25.0 MCHC 31.5 L RDW Std Deviation 46.5 H RDW Coeff of Ana M 16.1 H Plt Count 384 MPV 9.7 Immature Gran % (Auto) 0.1 Neut % (Auto) 83.6 Lymph % (Auto) 13.0 [place] % (Auto) 2.9 Eos % (Auto) 0.3 Baso % (Auto) 0.1 Neut # (Auto) 7.62 H Lymph # (Auto) 1.18 L [place] # (Auto) 0.26 Eos # (Auto) 0.03 Baso # (Auto) 0.01 Immature Gran # (Auto) 0.01 PT 10.1 INR 1.0 Sodium 139 Potassium 4.0 Chloride 106 Carbon Dioxide 21 Anion Gap 12 H BUN 14 Creatinine 0.91 Est Cr Clr Drug Dosing 71.7 Est GFR ( Amer) 77.8 Est GFR (Non-Af Amer) 67.1 BUN/Creatinine Ratio 15.4 Glucose 146 H Estimat Average Glucose Hemoglobin A1c Calcium 8.9 Magnesium Total Bilirubin 0.4 AST 13 ALT 14 Alkaline Phosphatase 95 Troponin I < 0.03 Total Protein 6.7 Albumin 4.0 Globulin 2.7 Albumin/Globulin Ratio 1.5 Lipase 17 Urine Color Urine Appearance Urine pH Ur Specific [place] Urine Protein Urine Glucose (UA) Urine Ketones Urine Blood Urine Nitrite Urine Bilirubin Urine Urobilinogen Ur Leukocyte Esterase SARS-CoV-2, RNA, NAAT 11/13/21 11/13/21 11/14/21 20:00 21:55 05:36 WBC 8.92 RBC 4.29 Hgb 10.6 L Hct 34.6 L MCV 80.7 MCH 24.7 L MCHC 30.6 L RDW Std Deviation 48.2 H RDW Coeff of Ana M 16.3 H Plt Count 360 MPV 9.9 Immature Gran % (Auto) 0.3 Neut % (Auto) 85.7 Lymph % (Auto) 10.7 [place] % (Auto) 3.3 Eos % (Auto) 0.0 Baso % (Auto) 0.0 Neut # (Auto) 7.65 H Lymph # (Auto) 0.95 L [place] # (Auto) 0.29 Eos # (Auto) 0.00 Baso # (Auto) 0.00 Immature Gran # (Auto) 0.03 H PT INR Sodium Potassium Chloride Carbon Dioxide Anion Gap BUN Creatinine Est Cr Clr Drug Dosing Est GFR ( Amer) Est GFR (Non-Af Amer) BUN/Creatinine Ratio Glucose Estimat Average Glucose Hemoglobin A1c Calcium Magnesium Total Bilirubin AST ALT Alkaline Phosphatase Troponin I Total Protein Albumin Globulin Albumin/Globulin Ratio Lipase Urine Color Yellow Urine Appearance Clear Urine pH 5.0 Ur Specific [place] > 1.045 H Urine Protein Negative Urine Glucose (UA) Trace H Urine Ketones 1+ H Urine Blood Negative Urine Nitrite Negative Urine Bilirubin Negative Urine Urobilinogen Negative Ur Leukocyte Esterase Negative SARS-CoV-2, RNA, NAAT NEGATIVE 11/14/21 11/14/21 05:36 05:36 WBC RBC Hgb Hct MCV MCH MCHC RDW Std Deviation RDW Coeff of Ana M Plt Count MPV Immature Gran % (Auto) Neut % (Auto) Lymph % (Auto) [place] % (Auto) Eos % (Auto) Baso % (Auto) Neut # (Auto) Lymph # (Auto) [place] # (Auto) Eos # (Auto) Baso # (Auto) Immature Gran # (Auto) PT INR Sodium 138 Potassium 4.0 Chloride 107 Carbon Dioxide 23 Anion Gap 8 BUN 11 Creatinine 0.80 Est Cr Clr Drug Dosing 79.8 Est GFR ( Amer) 90.9 Est GFR (Non-Af Amer) 78.5 BUN/Creatinine Ratio 13.8 Glucose 239 H Estimat Average Glucose 126 Hemoglobin A1c 6.0 H Calcium 8.1 L Magnesium 1.7 Total Bilirubin AST ALT Alkaline Phosphatase Troponin I Total Protein Albumin Globulin Albumin/Globulin Ratio Lipase Urine Color Urine Appearance Urine pH Ur Specific [place] Urine Protein Urine Glucose (UA) Urine Ketones Urine Blood Urine Nitrite Urine Bilirubin Urine Urobilinogen Ur Leukocyte Esterase SARS-CoV-2, RNA, NAAT Diagnostic Findings Pacemaker interrogation 10/31/2021 Normal device function with 26% atrial pacing and minimal RV pacing Multiple episodes of atrial fibrillation with atrial fibrillation burden of 36% Echocardiogram 02/19/2021 Normal left ventricular size, thickness and function EF 6065% Grade 1 diastolic dysfunction Mild mitral sufficiency
[2021-11-14] MEDS ORDERED: AMIODARONE / D5W 360 MG/200 ML BAG IV ONE (09:45)
[2021-11-14] MEDS: METOPROLOL SUCC 50MG EXT REL TAB PO SCH ×2 (10:21→19:56)
[2021-11-14] MEDS: APIXABAN 5 MG TABLET PO SCH ×2 (10:21→19:56)
[2021-11-14] MEDS: CYANOCOBALAMIN (B-12) 500 MCG TABLET PO SCH (10:22)
--- NOTE | 2021-11-14 10:26 | Electrocardiogram Report ---
Test Reason : Blood Pressure : / mmHG Vent. Rate : 129 BPM Atrial Rate : 147 BPM P-R Int : 000 ms QRS Dur : 102 ms QT Int : 362 ms P-R-T Axes : 000 -04 -08 degrees QTc Int : 530 ms Poor data quality, interpretation may be adversely affected Atrial fibrillation with rapid ventricular response Incomplete right bundle branch block T wave abnormality, consider anterior ischemia Abnormal ECG When compared with ECG of 04-OCT-2021 23:27, Nonspecific T wave abnormality, improved in Inferior leads Confirmed by Pedro Pablo Mendoza ([id number]) on 11/14/2021 10:26:30 AM Referred By: REFERRED SELF Confirmed By:Otto Mendoza
--- NOTE | 2021-11-14 10:29 | Electrocardiogram Report ---
Test Reason : Blood Pressure : / mmHG Vent. Rate : 119 BPM Atrial Rate : 104 BPM P-R Int : 000 ms QRS Dur : 114 ms QT Int : 274 ms P-R-T Axes : 000 -09 -33 degrees QTc Int : 385 ms Atrial fibrillation with rapid ventricular response Incomplete right bundle branch block Moderate voltage criteria for LVH, may be normal variant Nonspecific T wave abnormality Abnormal ECG When compared with ECG of 10-OCT-2020 15:50, Atrial fibrillation has replaced Sinus rhythm Vent. rate has increased BY 52 BPM Incomplete right bundle branch block is now Present Confirmed by Pedro Pablo Mendoza ([id number]) on 11/14/2021 10:28:52 AM Referred By: REFERRED SELF Confirmed By:Otto Mendoza
[2021-11-14] MEDS ORDERED: HEPARIN 100 UNIT/ML 5ML FLUSH FLUSH PRN (10:44)
--- NOTE | 2021-11-14 12:59 | Hospitalist Progress Note ---
Date of Service November 14, 2021 Assessment & Plan (1) Gastroparesis: (2) Atrial fibrillation with RVR: Plan: ASSESSMENT AND PLAN: This is a 61-year-old female who presents with persistent nausea, vomiting. 1. Persistent nausea, vomiting, history of gastroparesis. CT abdomen/pelvis: no signs of obstruction 1. No acute intra-abdominal or intrapelvic abnormality. 2. No bowel obstruction or bowel wall thickening. Normal appendix. 3. Colonic diverticulosis. 4. Chronic postoperative changes of the stomach with mild distention of the distal esophagus. still having nausea this morning Emend IV x 1 dose given monitor closely 2. Atrial fibrillation, rapid ventricular rate History of atrial fibrillation, tachybrady syndrome, status post pacemaker, history of paroxysmal atrial tachycardia: IV Amiodarone started continue usual metoprolol succinate 50 mg p.o. t.i.d. and Eliquis Cardiology on board 3. Hypothyroidism Continue Synthroid. 4. Gastroesophageal reflux disease IV Protonix. 5. Chronic obstructive pulmonary disease. Currently stable. 6. History of iron deficiency pernicious anemia. Currently, hemoglobin stable at 11.2. 7. Deep venous thrombosis prophylaxis: On Eliquis. DISPOSITION: Pending Lives at home Admission and Anticipated Discharge Date Admission Date: November 13, 2021 Subjective ff up for nausea/vomiting, a fib, etc seen resting in bed, (+) nausea no BM , (+) flatus no chest pain, dyspnea, palpitations, dizziness no other symptoms Review of Systems Review of Systems: all noted and negative except for above Physical Exam Physical Exam: General- oriented x 3, not in distress, speaks in sentences with no effort or accessory muscle use Head- atraumatic Eyes- PERRL, EOMI, anicteric ENT- oropharynx clear Neck- supple, no JVD, no adenopathy, no thyromegaly; carotids +2/2, no bruits appreciated Lungs- clear to auscultation bilaterally, no rales/wheezes Heart- normal rate, irregularly irregular rhythm; no murmur, no gallop, no rub appreciated Abdomen- (+) hypoactive bowel sounds, nondistended, soft, nontender, no masses or hepatosplenomegaly Extremities- no pretibial edema, no calf tenderness; peripheral pulses intact Neuro- alert, oriented x 3; CN 2-12 grossly intact; motor 5/5 bilaterally;sensation 100% on all extremities; no other gross focal neurologic deficits Skin- warm & dry Results & Data Results & Data ([facility]) Vital Signs (Past 12 Hours) Vital Signs Temp Pulse Pulse Resp BP BP Pulse Ox 11/14/21 11:39 118 H 11/14/21 11:27 37.0 C 108 H 16 150/114 H 97 11/14/21 08:32 36.6 C 101 H 20 154/114 H 96 11/14/21 05:46 135 H 135 H 151/119 H 151/119 H 11/14/21 03:44 36.8 C 115 H 20 161/110 H 97 all noted and reviewed including below
--- NOTE | 2021-11-14 13:51 | Electrocardiogram Report ---
Test Reason : Blood Pressure : / mmHG Vent. Rate : 082 BPM Atrial Rate : 089 BPM P-R Int : 000 ms QRS Dur : 118 ms QT Int : 412 ms P-R-T Axes : 000 -05 -25 degrees QTc Int : 481 ms Atrial fibrillation Left ventricular hypertrophy with QRS widening Nonspecific T wave abnormality Incomplete right bundle branch block Prolonged QT Abnormal ECG When compared with ECG of 14-NOV-2020 05:59, Nonspecific T wave abnormality, improved in Lateral leads Confirmed by Pedro Pablo Mendoza ([id number]) on 11/14/2021 1:50:40 PM Referred By: REFERRED SELF Confirmed By:Otto Mendoza
[2021-11-14] MEDS: AMIODARONE / D5W 360 MG/200 ML BAG IV SCH (15:42)
[2021-11-14] MEDS ORDERED: ACETAMINOPHEN 325 MG TAB PO PRN (16:29)
[2021-11-14] MEDS: LORazepam 0.5 MG TAB PO PRN ×2 (16:51→22:54)
[2021-11-14] MEDS: PRENATAL VITAMIN 1 TAB PO SCH (20:22)
[2021-11-14] MEDS: DICYCLOMINE HCL 10 MG CAP PO PRN (23:20)
[2021-11-15] MEDS: AMIODARONE / D5W 360 MG/200 ML BAG IV SCH (02:49)
[2021-11-15] MEDS: PROMETHAZINE HCL 12.5 MG in SODIUM CHLORIDE 0.9% 50 ML IV PRN ×2 (03:53→13:59)
[2021-11-15] MEDS: LEVOTHYROXINE SODIUM 88 MCG TABLET PO SCH (04:30)
[2021-11-15] MEDS: LORazepam 0.5 MG TAB PO PRN ×2 (05:18→22:31)
[2021-11-15] MEDS: CYANOCOBALAMIN (B-12) 500 MCG TABLET PO SCH (07:28)
[2021-11-15] MEDS: METOPROLOL SUCC 50MG EXT REL TAB PO SCH ×3 (07:29→19:56)
[2021-11-15] MEDS: APIXABAN 5 MG TABLET PO SCH ×2 (07:30→19:56)
[2021-11-15] MEDS: DICYCLOMINE HCL 10 MG CAP PO PRN (07:30)
--- NOTE | 2021-11-15 08:49 | Electrocardiogram Report ---
Test Reason : Blood Pressure : / mmHG Vent. Rate : 106 BPM Atrial Rate : 063 BPM P-R Int : 000 ms QRS Dur : 118 ms QT Int : 414 ms P-R-T Axes : 000 -03 -24 degrees QTc Int : 549 ms Atrial fibrillation with rapid ventricular response Incomplete right bundle branch block Nonspecific ST and T wave abnormality Prolonged QT Abnormal ECG When compared with ECG of 14-NOV-2020 10:17, QT has lengthened Confirmed by Pedro Pablo Mendoza ([id number]) on 11/15/2021 8:48:31 AM Referred By: REFERRED SELF Confirmed By:Otto Mendoza
[2021-11-15 09:33] LABS: BUN Creatinine Ratio 18.1 (10-20); Calcium 8.3 mg/dl (8.5-10.1); Creatinine Clr Calc Pharmacy 88.4 ml/min; Est GFR (African American) 103.3 ml/min; Est GFR (Non-African American) 89.1 ml/min; Potassium 3.5 mmol/L (3.5-5.1)
[2021-11-15 09:48] LABS: Magnesium 1.9 mg/dl (1.7-2.4)
--- NOTE | 2021-11-15 09:54 | Cardiology Progress Note ---
Date of Service November 15, 2021 Assessment & Plan (1) Paroxysmal A-fib: (2) Status post cardiac pacemaker procedure: (3) Intractable vomiting with nausea: Plan: Patient is a 61-year-old female with very complex underlying issues including chronic gastroparesis with intermittent episodes of severe nausea and emesis. In addition she has had episodes of paroxysmal atrial fibrillation with tachybradycardia syndrome status post pacemaker insertion. Recent history notable for acute Covid infection 1 month ago Patient presents with flare of gastroparesis with severe nausea and abdominal cramping poor p.o. intake and multiple episodes of emesis. She has lapsed back into atrial fibrillation with elevated ventricular response rate and associated hypertension as well. Options of management are somewhat limited, diltiazem contraindicated in the setting of gastroparesis. Beta-lauren at reasonable dose currently not persistently effective by pacer interrogation. Will initiate IV amiodarone cautiously in the setting of history of past QT prolongation prior EKGs reviewed in detail. Will follow EKGs closely hopefully amiodarone will allow successful conversion to sinus rhythm and maintenance with less variability in rhythm with any missed doses secondary to emesis 11/15/2021: Heart rates have slowed but patient remains in atrial fibrillation. Blood pressures intermittently elevated. We will transition IV amiodarone to oral at 200 mg 3 times daily, increase metoprolol succinate to 50 mg p.o. 3 times daily Supplement potassium with IV infusion via central port x40 mEq given poor tolerance orally Discussed management with patient. May consider cardioversion this admission depending on response to medical therapies. Use of amiodarone fails for any reason would consider referral for AV junction ablation. Pacemaker in place with His bundle lead Low threshold for iron infusion Admission and Anticipated Discharge Date Admission Date: November 13, 2021 Subjective Patient was seen and examined, chart, medications, telemetry reviewed. Still with morning nausea today. Heart rates were improved but remains in atrial fibrillation. No dizziness or lightheadedness. Blood pressure still trending higher. No chest pains or discomfort. No fevers or chills. No cough Review of Systems Review of Systems: All systems reviewed & are unremarkable except as noted in Subjective Physical Exam Constitutional: + obese Nauseated Eyes: PERRL, conjunctivae normal, anicteric sclerae ENMT: external ear and nose normal, oropharynx normal Neck: trachea midline, no thyromegaly Respiratory: normal respiratory effort, lungs clear to auscultation Auscultation: no rales and no wheezes Cardiovascular: Rate/Rhythm: + tachycardic and + irregularly irregular Heart Sounds: normal S1 and normal S2; no gallop and no murmur Palpation: normal PMI Vessels: normal carotid upstroke and radial pulses present; no JVD and no carotid bruit Extremities: no edema Chest (Breasts): Chest: + pacemaker and + vascular access device or port Gastrointestinal (Abdomen): Inspection/Auscultation: + abdomen distended; no abdominal edema Percussion/Palpation: no guarding and no hepatosplenomegaly Musculoskeletal: no cyanosis or clubbing, extremities motor strength 5/5 Skin: no rashes, warm and dry Neurologic: PERRL, EOMI, accommodation nl, no face palsy, no dysarthria Psychiatric: A+Ox3, euthymic affect Results & Data ([facility]) Vital Signs (Past 12 Hours) Vital Signs Temp Pulse Pulse Resp BP Pulse Ox 11/15/21 08:00 36.8 C 92 H 20 139/71 96 11/15/21 03:00 36.5 C 98 H 20 158/109 H 94 11/14/21 23:33 111 H 11/14/21 22:31 36.4 C L 90 18 138/108 H 95 Laboratory Results Laboratory Results - last 24 hr 11/15/21 11/15/21 11/15/21 08:46 08:46 08:46 Sodium 137 Potassium 3.5 Chloride 106 Carbon Dioxide 25 Anion Gap 6 BUN 13 Creatinine 0.72 Est Cr Clr Drug Dosing 88.4 Est GFR ( Amer) 103.3 Est GFR (Non-Af Amer) 89.1 BUN/Creatinine Ratio 18.1 Glucose 131 H Calcium 8.3 L Magnesium 1.9 Iron 19 L Transferrin 401 H Ferritin Pending Vitamin B12 Folate Cancelled 11/15/21 08:46 Sodium Potassium Chloride Carbon Dioxide Anion Gap BUN Creatinine Est Cr Clr Drug Dosing Est GFR ( Amer) Est GFR (Non-Af Amer) BUN/Creatinine Ratio Glucose Calcium Magnesium Iron Transferrin Ferritin Vitamin B12 Pending Folate Pending
[2021-11-15] MEDS ORDERED: POTASSIUM CHLORIDE / WTR 10 MEQ/100 ML PLCT IV STA (10:00)
[2021-11-15 10:08] LABS: Ferritin 5.2 ng/ml (8-388)
[2021-11-15 10:12] LABS: Folate (Folic Acid) 20.87 ng/ml (>5.38)
[2021-11-15 10:13] LABS: Vitamin B12 > 1500 pg/ml (211-911)
[2021-11-15] MEDS: SODIUM CHLORIDE 0.9% 1000ML 1,000 ML IV SCH (10:35)
[2021-11-15] MEDS: D5W AND NSS 1,000 ML IV SCH ×2 (11:11→23:35)
[2021-11-15] MEDS: POTASSIUM CHLORIDE / WTR 20 MEQ/100 ML PLCT IV SCH ×2 (11:11→14:00)
[2021-11-15] MEDS: AMIODARONE 200 MG TAB PO SCH ×2 (11:16→17:18)
--- NOTE | 2021-11-15 13:22 | Gastrointestinal Consultation ---
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 Ok with Zofran while on Tele, would hold Reglan right now given QTC Ok for as needed lorazapam that may help with nausea Liquid diet is ok will follow History of Present Illness Reason for Consultation: Nausea and hisory of Gastroparesis Attending Physician: Charlie Maher MD History of Present Illness 61 year old female w/ history of paraesophageal hernia s/p partial sleeve gastrectomy, gastroparesis, IBS. Who has been dx'd with frequent flares of gastroparesis previously receiving monthly Emend IV up till 11/09/2019. Who presents with several days of nausea, phlegm type regurgitation and has had in the past a home regimen of Zofran 8mg q6hr prn nausea + Reglan 10mg TID. She states over the last several days she has had typical type of nausea without vomiting in the setting of mild epigastric abdominal discomfort. This is described as exactly as she has had in the past. She is unable to provide any detailed medication history to me in regards to what type and doses of m edications she has been taking including if she has been adherent to her reglan. 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 Labs reveal normal electrolytes, normal CT scan as below without obstruction. Unfortunately, she has developed AF with RVR and has an underlying prolonged QTC. CT 11/15 INDINGS: Cardiac megaly with partially imaged pacer leads. Mild subsegmental bibasilar atelectasis. No pneumatosis or pneumoperitoneum. Fluid-filled distended distal esophagus has progressed from prior. Calcification versus extraluminal contrast adjacent to the gastroesophageal junction is unchanged. Chronic postoperative changes of the stomach. Unremarkable spleen, pancreas and left adrenal gland. Stable right adrenal gland adenoma, 2.3 cm. Cholecystectomy. Extrahepatic biliary ductal dilation redemonstrated, likely postsurgical. Unremarkable liver. Patent portal vein. There are a few scattered subcentimeter hypodensities of the right kidney which are too small to characterize however favor cysts measuring up to 7 mm. No urolith or hydronephrosis. Unremarkable urinary bladder. Hysterectomy. No abdominal aortic aneurysm. No bowel obstruction or bowel wall thickening. Colonic diverticulosis without acute diverticulitis. Normal appendix. Unremark able soft tissues. Degenerative changes of the spine, pelvis and hips. No acute fracture. IMPRESSION: 1. No acute intra-abdominal or intrapelvic abnormality. 2. No bowel obstruction or bowel wall thickening. Normal appendix. 3. Colonic diverticulosis. 4. Chronic postoperative changes of the stomach with mild distention of the distal esophagus. Allergies Allergy/AdvReac Type Severity Reaction Status Date / Time adhesive Allergy Mild POWERS SKIN Verified 11/13/21 17:57 capsaicin Allergy Mild ITCHINESS Verified 11/13/21 17:57 amoxicillin AdvReac Intermediate yeast Verified 11/13/21 17:57 infection lactose AdvReac Intermediate Gastrointestinal Verified 11/13/21 17:57 Upset scopolamine AdvReac Intermediate rash from Verified 11/13/21 17:57 patch NSAIDS (Non-Steroidal AdvReac Mild indegestion Verified 11/13/21 17:57 Anti-Inflamma rofecoxib AdvReac Mild indigestion Verified 11/13/21 17:57 Home Medications Medication Instructions Recorded Confirmed Type pantoprazole 40 mg tablet,delayed 40 mg PO BID #60 tab 12/10/19 11/13/21 Rx release acetaminophen 500 mg tablet 1,000 mg PO Q6H PRN #60 tab 12/16/19 11/13/21 Rx (Tylenol Extra Strength) levothyroxine 88 mcg tablet 88 mcg PO QAM #30 tab 12/16/19 11/13/21 Rx (Synthroid) dicyclomine 10 mg capsule 10 mg PO BID PRN 12/17/19 11/13/21 History metoclopramide HCl 10 mg tablet 10 mg PO TID 09/30/20 11/13/21 History promethazine 25 mg tablet 25 mg PO Q6H PRN 09/30/20 11/13/21 History apixaban 5 mg tablet (Eliquis) 5 mg PO BID 10/02/21 11/13/21 History cyanocobalamin (vitamin B-12) 1,000 mcg PO DAILY 10/02/21 11/13/21 History 1,000 mcg tablet (Vitamin B-12) vitamins-iron fumarate 65 1 tab PO HS 10/02/21 11/13/21 History mg iron-folic acid 1 mg tablet metoprolol succinate 50 mg 50 mg PO BID #60 tab 10/06/21 11/13/21 Rx tablet,extended release 24 hr Patient History Medical History Acidosis, lactic Anxiety Asthma COPD (chronic obstructive pulmonary disease) COVID-19 COVID-19 Depression Diverticulosis Frequent PVCs Gastroparesis GERD (gastroesophageal reflux disease) H/O irritable bowel syndrome HTN (hypertension) Hypokalemia Hypomagnesemia Hypomagnesemia Hypophosphatemia Hypothyroidism Intractable nausea and vomiting Mitral regurgitation "moderate per echo 09/21/15" Neuropathy Paroxysmal A-fib Pemphigus vulgaris Prolonged QT interval Tobacco abuse Surgical History History of bladder surgery History of laparoscopic partial gastrectomy History of pyloroplasty History of total hysterectomy Hx of cholecystectomy Hx of tonsillectomy S/P hysterectomy S/P laparoscopic sleeve gastrectomy S/P partial gastrectomy S/P repair of paraesophageal hernia "resulted in volvulus, required abdominal exploration" S/P tonsillectomy and adenoidectomy Family History Mother DM type 2 (diabetes mellitus, type 2) Coronary heart disease Social History Smoking Status: Heavy tobacco smoker Tobacco Type: Cigarettes Cigarettes Per Day: 1 ppd; Second Hand Exposure: Yes; Do You Dip or Chew Tobacco: No; Tobacco Cessation Education Requested by Patient: No Hx Alcohol Use: Yes Alcohol type: other Alcohol Intake Frequency Comment: 3-4 beers/week Hx Substance Use: No Preferred Language: Lao Communication Ability: Effective Pigment And Lacquer Mixer Required: No Beliefs That Will Affect Care: None marital status: Single Current Living Situation: Family Current Living Situation Comment: Pt lives with brother How many Children do You have: 2 Feels Safe at Home: Yes Safety Concerns: Feels Safe At This Time Assistive Devices: None Review of Systems Review of Systems: 10 system review negative except for stated as above Physical Exam Constitutional: WD/WN, vitals as above Cardiovascular: irr irr, no mgr Gastrointestinal (Abdomen): normal bowel sounds, soft, nontender, no hepatosplenomegaly Results & Data ([facility]) Vital Signs (Past 12 Hours) Vital Signs Temp Pulse Pulse Resp BP Pulse Ox 11/15/21 12:00 36.9 C 67 20 145/73 H 95 11/15/21 11:00 111 H 11/15/21 08:00 36.8 C 92 H 20 139/71 96 11/15/21 03:00 36.5 C 98 H 20 158/109 H 94
--- NOTE | 2021-11-15 15:15 | Hospitalist Progress Note ---
Date of Service November 15, 2021 Assessment & Plan (1) Gastroparesis: (2) Atrial fibrillation with RVR: Plan: ASSESSMENT AND PLAN: This is a 61-year-old female who presents with persistent nausea, vomiting. 1. Persistent nausea, vomiting, likely chronic gastroparesis flareup CT abdomen/pelvis: no signs of obstruction 1. No acute intra-abdominal or intrapelvic abnormality. 2. No bowel obstruction or bowel wall thickening. Normal appendix. 3. Colonic diverticulosis. 4. Chronic postoperative changes of the stomach with mild distention of the distal esophagus. Emend IV x 1 dose given 11/14/2021 Nausea somewhat better today GI consulted-appreciate the recommendations recommend clear liquid diet Avoid Zofran and Reglan due to prolonged QT As needed Phenergan ordered monitor closely 2. Atrial fibrillation, rapid ventricular rate History of atrial fibrillation, tachybrady syndrome, status post pacemaker, history of paroxysmal atrial tachycardia: P.o. amiodarone started, weaning off IV amiodarone continue usual metoprolol succinate 50 mg p.o. t.i.d. and Eliquis Cardiology on board-appreciate the recommendations 3. Hypothyroidism Continue Synthroid. 4. Gastroesophageal reflux disease IV Protonix. 5. Chronic obstructive pulmonary disease. Currently stable. 6. History of iron deficiency pernicious anemia. Currently, hemoglobin stable at 11.2. 7. Deep venous thrombosis prophylaxis: On Eliquis. DISPOSITION: Pending Lives at home Anticipate discharge to home when medically stable Admission and Anticipated Discharge Date Admission Date: November 13, 2021 Subjective Follow-up for gastroparesis flareup, dehydration, chronic atrial fibrillation RVR, etc. Resting in bed, sleeping, but easily awakened States she feels weak today, tired Nausea about the same, perhaps somewhat improved Reports mild epigastric discomfort radiating to the back Was having anxiety yesterday, palpitations, relieved by Ativan as needed No shortness of breath No other symptoms Review of Systems Review of Systems: all noted and negative except for above Physical Exam Physical Exam: General- oriented x 3, not in distress, speaks in sentences with no effort or accessory muscle use Eyes- anicteric Neck- no JVD Lungs- clear breath sounds, no crackles or wheezing bilaterally Heart- normal rate, irregularly irregular rhythm; no murmurs Abdomen-hypoactive bowel sounds, nondistended, soft, nontender Extremities- no pretibial edema, no calf tenderness Neuro- alert, oriented x 3; no gross focal neurologic deficits Skin- warm & dry Results & Data Results & Data ([facility]) Vital Signs (Past 12 Hours) Vital Signs Temp Pulse Pulse Resp BP Pulse Ox 11/15/21 12:00 36.9 C 67 20 145/73 H 95 11/15/21 11:00 111 H 11/15/21 08:00 36.8 C 92 H 20 139/71 96 all noted and reviewed including below
[2021-11-15] MEDS: PRENATAL VITAMIN 1 TAB PO SCH (19:56)
[2021-11-16] MEDS: LEVOTHYROXINE SODIUM 88 MCG TABLET PO SCH (06:22)
[2021-11-16 06:46] LABS: BUN Creatinine Ratio 13.1 (10-20); Calcium 7.7 mg/dl (8.5-10.1); Creatinine Clr Calc Pharmacy 77.7 ml/min; Est GFR (African American) 85.7 ml/min; Magnesium 1.8 mg/dl (1.7-2.4); Potassium 3.3 mmol/L (3.5-5.1)
[2021-11-16] MEDS: AMIODARONE 200 MG TAB PO SCH (07:43)
[2021-11-16] MEDS: CYANOCOBALAMIN (B-12) 500 MCG TABLET PO SCH (07:43)
[2021-11-16] MEDS: APIXABAN 5 MG TABLET PO SCH ×2 (07:43→19:59)
[2021-11-16] MEDS: METOPROLOL SUCC 50MG EXT REL TAB PO SCH ×3 (07:44→19:59)
--- NOTE | 2021-11-16 10:23 | Gastroenterology Progress Note ---
Date of Service November 16, 2021 Assessment & Plan (1) Gastroparesis: Plan: Gastroparesis secondary to post surgical state. Ok with Zofran. lorazepam. Will continue to hold metoclopramide until cleared by cardiology. (prolonged QTC) Full liquid diet is ok will follow Admission and Anticipated Discharge Date Admission Date: November 13, 2021 Supervising Physician Co-Signing Physician Notes Attending attestation I have seen, examined this patient, and agree with the findings and above by our mid-level provider VANIA Scott, with the following additions: - Nausea is less - Hungry, ok with liquid/full liquid diet - no solids until after cardioversion - Hold reglan until cleared by cardiology Subjective 61, female, history of gastroparesis secondary to postsurgical changes. Today, nausea but states she has this at baseline. At home, on Zofran metoclopramide. Holding metoclopramide during admission due to prolonged QT and new A. fib. Review of Systems Review of Systems: 10 system review negative except for stated as above Physical Exam Constitutional: well developed and cooperative Eyes: PERRL, conjunctivae normal, anicteric sclerae Respiratory: normal respiratory effort, lungs clear to auscultation Cardiovascular: RRR, no murmur, no edema Gastrointestinal (Abdomen): Inspection/Auscultation: abdomen normal to inspection and normal bowel sounds; abdomen not distended and no abdominal edema Percussion/Palpation: + abdomen tender (Mild diffuse adbdominal msk tendern ess. No signs of acute abdomen.) and abdomen soft; no guarding and abdomen not rigid Skin: no rashes, warm and dry normal turgor Neurologic: PERRL, EOMI, accommodation nl, no face palsy, no dysarthria awake; not confused Psychiatric: A+Ox3, euthymic affect Orientation: cooperative Lymphatic: no cervical or axillary lymphadenopathy Results & Data ([facility]) Vital Signs (Past 12 Hours) Vital Signs Temp Pulse Pulse Resp BP BP Pulse Ox 11/16/21 08:11 83 11/16/21 08:03 36.8 C 76 20 138/90 96 11/16/21 04:07 36.5 C 87 18 113/79 91 11/16/21 00:26 82 11/15/21 23:00 36.7 C 93 H 18 136/102 H 134/107 H 98 Pulse Ox 11/16/21 08:11 98 11/16/21 08:03 11/16/21 04:07 11/16/21 00:26 11/15/21 23:00 Laboratory Results Sodium 141, K3.3, CL 111, CO2 26, BUN 11, CR 0.8, glucose 98. Diagnostic Findings CTAP with IV contrast 11/15/2021: 1. No acute intra-abdominal or intrapelvic abnormality. 2. No bowel obstruction or bowel wall thickening. Normal appendix. 3. Colonic diverticulosis. 4. Chronic postoperative changes of the stomach with mild distention of the distal esophagus.
--- NOTE | 2021-11-16 11:25 | Cardiology Progress Note ---
Date of Service November 16, 2021 Assessment & Plan (1) Paroxysmal A-fib: (2) Status post cardiac pacemaker procedure: (3) Intractable vomiting with nausea: Plan: Patient is a 61-year-old female with very complex underlying issues including chronic gastroparesis with intermittent episodes of severe nausea and emesis. In addition she has had episodes of paroxysmal atrial fibrillation with tachybradycardia syndrome status post pacemaker insertion. Recent history notable for acute Covid infection 1 month ago Patient presents with flare of gastroparesis with severe nausea and abdominal cramping poor p.o. intake and multiple episodes of emesis. She has lapsed back into atrial fibrillation with elevated ventricular response rate and associated hypertension as well. 11/16/2021: Heart rates improving but still in atrial fibrillation. EKG demonstrates persistent to slightly longer QT intervals Clinically improved with less nausea taking medications as ordered We will discontinue amiodarone. Continue metoprolol succinate at 50 mg 3 times per day tentatively scheduled for synchronized electrocardioversion in a.m. Supplement potassium today via IV given GI intolerance Discussed in detail with patient regarding plans if cardioversion unsuccessful or atrial fibrillation returns promptly may consider referral for AV junction ablation. Part of her evaluation and treatment should involve supplemental iron likely infusion given poor p.o. tolerance Admission and Anticipated Discharge Date Admission Date: November 13, 2021 Subjective Patient was seen and examined, chart, medications, telemetry reviewed. Less nauseated this morning and overall heart rates are trending lower. No chest pains or discomfort. Patient still remains in atrial fibrillation Review of Systems Review of Systems: All systems reviewed & are unremarkable except as noted in Subjective Physical Exam Constitutional: + obese; no acute distress Eyes: PERRL, conjunctivae normal, anicteric sclerae ENMT: external ear and nose normal, oropharynx normal Neck: trachea midline, no thyromegaly Respiratory: normal respiratory effort, lungs clear to auscultation Auscultation: no rales and no wheezes Cardiovascular: Rate/Rhythm: regular rate and + irregularly irregular Heart Sounds: normal S1 and normal S2; no gallop and no murmur Palpation: normal PMI Vessels: normal carotid upstroke and radial pulses present; no JVD and no carotid bruit Extremities: no edema Chest (Breasts): Chest: + pacemaker and + vascular access device or port Gastrointestinal (Abdomen): Inspection/Auscultation: + abdomen distended; no abdominal edema Percussion/Palpation: no guarding and no hepatosplenomegaly Musculoskeletal: no cyanosis or clubbing, extremities motor strength 5/5 Skin: no rashes, warm and dry Neurologic: PERRL, EOMI, accommodation nl, no face palsy, no dysarthria Psychiatric: A+Ox3, euthymic affect Results & Data ([facility]) Vital Signs (Past 12 Hours) Vital Signs Temp Pulse Pulse Resp BP Pulse Ox Pulse Ox 11/16/21 08:11 83 98 11/16/21 08:03 36.8 C 76 20 138/90 96 11/16/21 04:07 36.5 C 87 18 113/79 91 11/16/21 00:26 82 Laboratory Results Laboratory Results - last 24 hr 11/16/21 05:41 Sodium 141 Potassium 3.3 L Chloride 111 H Carbon Dioxide 26 Anion Gap 4 BUN 11 Creatinine 0.84 Est Cr Clr Drug Dosing 77.7 Est GFR ( Amer) 85.7 Est GFR (Non-Af Amer) 74.0 BUN/Creatinine Ratio 13.1 Glucose 98 Calcium 7.7 L Magnesium 1.8
--- NOTE | 2021-11-16 11:51 | Electrocardiogram Report ---
Test Reason : Blood Pressure : / mmHG Vent. Rate : 086 BPM Atrial Rate : 120 BPM P-R Int : 000 ms QRS Dur : 116 ms QT Int : 488 ms P-R-T Axes : 000 -10 -31 degrees QTc Int : 583 ms Atrial fibrillation Incomplete right bundle branch block Prolonged QT Abnormal ECG When compared with ECG of 15-NOV-2020 04:02, No significant change was found Confirmed by Pedro Pablo Mendoza ([id number]) on 11/16/2021 11:50:43 AM Referred By: REFERRED SELF Confirmed By:Otto Mendoza
[2021-11-16] MEDS: D5W AND NSS 1,000 ML IV SCH (11:58)
[2021-11-16] MEDS: POTASSIUM CHLORIDE / WTR 20 MEQ/100 ML PLCT IV SCH ×2 (11:59→13:57)
--- NOTE | 2021-11-16 12:17 | Anesthesiology Consultation ---
Date of Service November 16, 2021 Assessment & Plan (1) Encounter for pre-operative examination: Chart Review Chart Review: cloth cutter initiated History Surgery Operation Date: 11/17/21 07:45 Proposed Procedures p Cardioversion Public Relations Analyst w/Anesthesia - Luis Negro MD Height/Weight Height: 5 ft 5 in Weight: 94.1 kg Allergies Allergy/AdvReac Type Severity Reaction Status Date / Time adhesive Allergy Mild POWERS SKIN Verified 11/13/21 17:57 capsaicin Allergy Mild ITCHINESS Verified 11/13/21 17:57 amoxicillin AdvReac Intermediate yeast Verified 11/13/21 17:57 infection lactose AdvReac Intermediate Gastrointestinal Verified 11/13/21 17:57 Upset scopolamine AdvReac Intermediate rash from Verified 11/13/21 17:57 patch NSAIDS (Non-Steroidal AdvReac Mild indegestion Verified 11/13/21 17:57 Anti-Inflamma rofecoxib AdvReac Mild indigestion Verified 11/13/21 17:57 Medications Home Medications Medication Instructions Recorded Confirmed Last Taken pantoprazole 40 mg tablet,delayed 40 mg PO BID #60 tab 12/10/19 11/13/2111/13 08:00 release acetaminophen 500 mg tablet 1,000 mg PO Q6H PRN #60 tab 12/16/19 11/13/21 0 10/09/20 (Tylenol Extra Strength) levothyroxine 88 mcg tablet 88 mcg PO QAM #30 tab 12/16/19 11/13/21 11/13/21 (Synthroid) dicyclomine 10 mg capsule 10 mg PO BID PRN 12/17/19 11/13/21 09/29/20 metoclopramide HCl 10 mg tablet 10 mg PO TID 09/30/20 11/13/21 11/13/21 08:00 promethazine 25 mg tablet 25 mg PO Q6H PRN 09/30/20 11/13/21 09/30/20 apixaban 5 mg tablet (Eliquis) 5 mg PO BID 10/02/21 11/13/21 11/13/21 08:00 cyanocobalamin (vitamin B-12) 1,000 mcg PO DAILY 10/02/21 11/13/21 11/13/21 1,000 mcg tablet (Vitamin B-12) vitamins-iron fumarate 65 1 tab PO HS 10/02/21 11/13/21 11/12/21 mg iron-folic acid 1 mg tablet metoprolol succinate 50 mg 50 mg PO BID #60 tab 10/06/21 11/13/21 11/13/21 08:00 tablet,extended release 24 hr Active Medications Generic Name Dose Route Start Last Admin Trade Name Freq PRN Reason Stop Dose Admin Amiodarone HCl 200 mg 11/15/21 12:00 11/16/21 07:43 Amiodarone 200 Mg Tab PO 12/15/21 11:59 200 mg TIDM RUSSELL Administration Apixaban 5 mg 11/14/21 09:00 11/16/21 07:43 Apixaban 5 Mg Tablet PO 12/14/21 08:59 5 mg BID RUSSELL Administration Cyanocobalamin 1,000 mcg 11/14/21 09:00 11/16/21 07:43 Cyanocobalamin (B-12) 500 Mcg Tablet PO 12/14/21 08:59 1,000 mcg DAILY RUSSELL Administration Dicyclomine HCl 10 mg 11/13/21 22:55 11/15/21 07:30 Dicyclomine Hcl 10 Mg Cap PO 12/13/21 22:54 10 mg BID PRN Administration Abdominal Discomfort Hydromorphone HCl 0.5 mg 11/13/21 22:55 11/14/21 04:39 Hydromorphone Inj 0.5 Mg/0.5 Ml Syr IV 11/27/21 22:54 0.5 mg Q4H PRN Administration Pain Promethazine HCl 12.5 mg/ 50.5 mls @ 202 mls/hr 11/13/21 22:55 11/15/21 14:23 Sodium Chloride IV 12/13/21 22:54 Infused Q6H PRN Infusion Nausea And Vomiting Dextrose/Sodium Chloride 1,000 mls @ 80 mls/hr 11/15/21 10:30 11/16/21 11:58 D5w And Nss IV 12/15/21 10:29 80 mls/hr .[id number] RUSSELL Administration Potassium Chloride 20 meq in 100 mls @ 50 mls/hr 11/16/21 11:45 11/16/21 11:59 K James / Wtr IV 11/16/21 15:44 50 mls/hr Q2H RUSSELL Administration Protocol Levothyroxine Sodium 88 mcg 11/14/21 06:30 11/16/21 06:22 Levothyroxine Sodium 88 Mcg Tablet PO 12/14/21 06:29 88 mcg DAILYBB RUSSELL Administration Lorazepam 0.5 mg 11/14/21 16:29 11/15/21 22:31 Lorazepam 0.5 Mg Tab PO 12/14/21 16:28 0.5 mg Q6H PRN Administration Anxiety Metoclopramide HCl 10 mg 11/14/21 09:00 11/14/21 12:34 Metoclopramide Hcl 10 Mg Tablet PO 12/14/21 08:59 Not Given TID RUSSELL Metoprolol Succinate 50 mg 11/15/21 14:00 11/16/21 07:44 Metoprolol Succ 50mg Ext Rel Tab PO 12/15/21 13:59 50 mg TID RUSSELL Administration Metoprolol Tartrate 5 mg 11/13/21 22:55 11/14/21 05:46 Metoprolol Tartrate 1 Mg/Ml Vial IV 12/13/21 22:54 5 mg Q6 PRN Administration Tachycardia Prenat Multivit/Emergency Department Director/Iron/Folic Ac 1 tab 11/14/21 21:00 11/15/21 19:56 Vitamin 1 Tab PO 12/14/21 20:59 1 tab HS RUSSELL Administration Past Medical History Medical History Acidosis, lactic Anxiety Asthma COPD (chronic obstructive pulmonary disease) COVID-19 COVID-19 Depression Diverticulosis Frequent PVCs Gastroparesis GERD (gastroesophageal reflux disease) H/O irritable bowel syndrome HTN (hypertension) Hypokalemia Hypomagnesemia Hypomagnesemia Hypophosphatemia Hypothyroidism Intractable nausea and vomiting Mitral regurgitation "moderate per echo 09/21/15" Neuropathy Paroxysmal A-fib Pemphigus vulgaris Prolonged QT interval Tobacco abuse Past Family History Family History Mother DM type 2 (diabetes mellitus, type 2) Coronary heart disease Past Surgical History Surgical History History of bladder surgery History of laparoscopic partial gastrectomy History of pyloroplasty History of total hysterectomy Hx of cholecystectomy Hx of tonsillectomy S/P hysterectomy S/P laparoscopic sleeve gastrectomy S/P partial gastrectomy S/P repair of paraesophageal hernia "resulted in volvulus, required abdominal exploration" S/P tonsillectomy and adenoidectomy Social History Smoking Status: Heavy tobacco smoker tobacco type: cigarettes Smoking cigarettes per day: 1 ppd Do You Dip or Chew Tobacco: No Hx Alcohol Use: Yes Alcohol type: other alcohol intake frequency: holidays/special occasions only Hx Substance Use: No substance use type: does not use Last Used Substance: Unknown Physical Exam Vital Signs Last Vital Signs Temp 97.9 F 11/16/21 11:57 Pulse 92 H 11/16/21 11:57 Resp 20 11/16/21 11:57 BP 137/96 11/16/21 11:57 Pulse Ox 96 11/16/21 11:57 Testing Laboratory Results 11/14/21 05:36 11/16/21 05:41 PT 10.1 Seconds (9.0-12.0) 11/13/21 17:35 INR 1.0 (0.9-1.1) 11/13/21 17:35 Hemoglobin A1c 6.0 % (4.5-5.6) H 11/14/21 05:36 Urine Color Yellow 11/13/21 21:55 Urine Appearance Clear (Clear) 11/13/21 21:55 Urine pH 5.0 (4.5-7.5) 11/13/21 21:55 Ur Specific [place] > 1.045 (1.000-1.030) H 11/13/21 21:55 Urine Protein Negative (Negative) 11/13/21 21:55 Urine Glucose (UA) Trace (Negative) H 11/13/21 21:55 Urine Ketones 1+ (Negative) H 11/13/21 21:55 Urine Nitrite Negative (Negative) 11/13/21 21:55 Ur Leukocyte Esterase Negative (Negative) 11/13/21 21:55 Laboratory Tests 11/13/21 20:00 SARS-CoV-2, RNA, NAAT NEGATIVE Electrocardiogram Date: 11/16/21 Atrial fibrillation, rate 86 bpm Incomplete right bundle branch block ST & T wave abnormality, consider anterolateral ischemia Prolonged QT Abnormal ECG When compared with ECG of 15-NOV-2020 04:02, No significant change was found Confirmed by Pedro Pablo Mendoza ([id number]) on 11/16/2021 11:50:43 AM Chest X-Ray Date: 11/13/21 IMPRESSION: Cardiomegaly without acute process. Echocardiogram Date: 02/20/21 Normal LV chamber size and wall thickness Normal LV systolic function, EF 60-65% No segmental LV wall motion abnormalities are noted Grade 1 diastolic dysfunction Mild MR No pericardial effusion is present
--- NOTE | 2021-11-16 14:15 | Hospitalist Progress Note ---
Date of Service November 16, 2021 Assessment & Plan (1) Gastroparesis: Plan: Emesis and nausea has resolved. She is tolerating liquid diet. Avoiding Zofran and Reglan given prolonged QTc. CT a/p revealed no signs of obstruction. (2) Atrial fibrillation with RVR: Plan: History of atrial fibrillation, tachybrady syndrome, status post pacemaker, history of paroxysmal atrial tachycardia: IV amio bolus transitioned to PO amio now, still in afib on telemetry. cont BB and Eliquis per cardiology. Plan for DCCV in am if not cardioverted medically. 3. Hypothyroidism chronic, stable, Continue Synthroid. 4. Gastroesophageal reflux disease chronic, uncertain if some of this may have been contributing to her nausea and vomiting, IV protonix. 5. Chronic obstructive pulmonary disease. chronic, stable without exacerbation. Lungs are clear to auscultation. 6. History of iron deficiency pernicious anemia. Currently, hemoglobin stable at 11.2. 7. Deep venous thrombosis prophylaxis: On Eliquis. DISPOSITION: Pending results of procedure in am. Lives at home alone. Anticipate discharge to home when medically stable [facility]iane [facility] and Anticipated Discharge Date Admission Date: November 13, 2021 Subjective 61 yo F with PAF s/p pacemaker and h/o gastroparesis presents with multiple episodes of emesis. Relapsed back in to afib with RVR and planned DCCV in am. Patient reports nausea is resolved She is on a liquid diet but requesting something solid Telemetry reviewed and she remains in atrial fibrillation on amiodarone. Denies chest pain or SOB. Requests "one last good meal before they try to kill me tomorrow." Review of Systems Review of Systems: All systems were reviewed and negative except as indicated in subjective above. Physical Exam Physical Exam: CONSTITUTIONAL: WNWD, vitals as above, generally well- appearing, NAD EYES: normal conjunctivae, no scleral icterus ENT: external ear and nose normal, MMM NECK: trachea midline, RESPIRATORY: clear to auscultation bilaterally, no crackles, rales or wheezes, normal respiratory effort CARDIOVASCULAR: irregular rate and irregular rhythm, S1 and 2 heard without murmurs, gallops or rubs, no JVD, no peripheral edema, no carotid bruits CHEST: inspection of chest was normal (+pacemaker, +port) GASTROINTESTINAL: soft, nontender, ND, no guarding MUSCULOSKELETAL: strength 5/5 throughout, head is normocephalic and atraumatic SKIN: warm and dry, NEUROLOGIC: CN 2-12 grossly intact, no sensory deficit, normal cognition, normal speech, no tremor PSYCHIATRIC: alert cooperative and oriented to person, place and time. Euthymic mood, makes good eye contact, language grossly intact, recent and remote memory grossly intact. Results & Data Results & Data ([facility]) Vital Signs (Past 12 Hours) Vital Signs Temp Pulse Pulse Resp BP Pulse Ox Pulse Ox 11/16/21 11:57 36.6 C 92 H 20 137/96 96 11/16/21 08:11 83 98 11/16/21 08:03 36.8 C 76 20 138/90 96 11/16/21 04:07 36.5 C 87 18 113/79 91 Laboratory Results [facility] 11/16/21 05:41 Sodium 141 Potassium 3.3 L Chloride 111 H Carbon Dioxide 26 BUN 11 Creatinine 0.84 Glucose 98 Calcium 7.7 L Medications Administered Current Inpatient Medications Acetaminophen (Acetaminophen 325 Mg Tab) 650 mg PO Q4H PRN PRN Reason: FEVER OR PAIN Stop: 12/14/21 16:28 Amiodarone HCl (Amiodarone 200 Mg Tab) 200 mg PO TIDM [facility] Stop: 12/15/21 11:59 Last Admin: 11/16/21 07:43 Dose: 200 mg Documented by: Apixaban (Apixaban 5 Mg Tablet) 5 mg PO BID [facility] Stop: 12/14/21 08:59 Last Admin: 11/16/21 07:43 Dose: 5 mg Documented by: Cyanocobalamin (Cyanocobalamin (B-12) 500 Mcg Tablet) 1,000 mcg PO DAILY [facility] Stop: 12/14/21 08:59 Last Admin: 11/16/21 07:43 Dose: 1,000 mcg Documented by: Dicyclomine HCl (Dicyclomine Hcl 10 Mg Cap) 10 mg PO BID PRN PRN Reason: Abdominal Discomfort Stop: 12/13/21 22:54 Last Admin: 11/15/21 07:30 Dose: 10 mg Documented by: Heparin Sodium (Porcine) (Heparin 100 Unit/Ml 5ml Flush) 5 ml FLUSH PRN PRN PRN Reason: Flush Stop: 12/14/21 10:43 Hydromorphone HCl (Hydromorphone Inj 0.5 Mg/0.5 Ml Syr) 0.5 mg IV Q4H PRN PRN Reason: Pain Stop: 11/27/21 22:54 Last Admin: 11/14/21 04:39 Dose: 0.5 mg Documented by: Promethazine HCl 12.5 mg/ (Sodium Chloride) 50.5 mls @ 202 mls/hr IV Q6H PRN PRN Reason: Nausea And Vomiting Stop: 12/13/21 22:54 Last Infusion: 11/15/21 14:23 Dose: Infused Documented by: Dextrose/Sodium Chloride (D5w And Nss) 1,000 mls @ 80 mls/hr IV .[id number] [facility] Stop: 12/15/21 10:29 Last Admin: 11/16/21 11:58 Dose: 80 mls/hr Documented by: Potassium Chloride (K James / Wtr) 20 meq in 100 mls @ 50 mls/hr IV Q2H [facility]; Protocol Stop: 11/16/21 15:44 Last Admin: 11/16/21 13:57 Dose: 50 mls/hr Documented by: Levothyroxine Sodium (Levothyroxine Sodium 88 Mcg Tablet) 88 mcg PO DAILYBB [facility] Stop: 12/14/21 06:29 Last Admin: 11/16/21 06:22 Dose: 88 mcg Documented by: Lorazepam (Lorazepam 0.5 Mg Tab) 0.5 mg PO Q6H PRN PRN Reason: Anxiety Stop: 12/14/21 16:28 Last Admin: 11/15/21 22:31 Dose: 0.5 mg Documented by: Metoclopramide HCl (Metoclopramide Hcl 10 Mg Tablet) 10 mg PO TID [facility] Stop: 12/14/21 08:59 Last Admin: 11/14/21 12:34 Dose: Not Given Documented by: Metoprolol Succinate (Metoprolol Succ 50mg Ext Rel Tab) 50 mg PO TID [facility] Stop: 12/15/21 13:59 Last Admin: 11/16/21 13:58 Dose: 50 mg Documented by: Metoprolol Tartrate (Metoprolol Tartrate 1 Mg/Ml Vial) 5 mg IV Q6 PRN PRN Reason: Tachycardia Stop: 12/13/21 22:54 Last Admin: 11/14/21 05:46 Dose: 5 mg Documented by: Nitroglycerin (Nitroglycerin Sl 0.4 Mg/Tab Tab) 0.4 mg SL UD PRN PRN Reason: Chest Pain Stop: 12/13/21 22:54 Prenat Multivit/[place]/Iron/Folic Ac ( Vitamin 1 Tab) 1 tab PO HS [facility] Stop: 12/14/21 20:59 Last Admin: 11/15/21 19:56 Dose: 1 tab Documented by:
[2021-11-16] MEDS: LORazepam 0.5 MG TAB PO PRN (19:58)
[2021-11-16] MEDS: PRENATAL VITAMIN 1 TAB PO SCH (19:59)
[2021-11-17] MEDS: D5W AND NSS 1,000 ML IV SCH (00:16)
[2021-11-17] MEDS ORDERED: LORazepam 0.5 MG TAB PO STA (00:40)
[2021-11-17] MEDS: LORazepam 0.5 MG TAB PO PRN ×2 (02:30→21:53)
[2021-11-17] MEDS: LEVOTHYROXINE SODIUM 88 MCG TABLET PO SCH (06:05)
[2021-11-17 06:16] LABS: BUN Creatinine Ratio 8.2 (10-20); Calcium 7.7 mg/dl (8.5-10.1); Creatinine Clr Calc Pharmacy 76.8 ml/min; Est GFR (African American) 84.5 ml/min; Est GFR (Non-African American) 72.9 ml/min; Potassium 3.4 mmol/L (3.5-5.1)
--- NOTE | 2021-11-17 07:58 | Anesthesiology Progress Note ---
Date of Service November 17, 2021 Anesthesia Post Procedure Vital Signs Vital Signs: Temp Pulse Pulse Resp BP Pulse Ox Pulse Ox 11/17/21 07:50 69 16 107/77 97 11/17/21 07:35 71 16 116/86 97 11/17/21 03:00 97.9 F 81 16 150/108 H 94 11/17/21 00:26 97.7 F 97 H 16 125/89 97 11/17/21 00:11 95 H 11/16/21 19:20 97.7 F 89 18 134/94 98 11/16/21 16:12 98.1 F 75 20 131/98 98 11/16/21 15:44 91 H 11/16/21 11:57 97.9 F 92 H 20 137/96 96 11/16/21 08:11 83 98 11/16/21 08:03 98.2 F 76 20 138/90 96 Pain Intensity Abdomen: Pain Intensity: 3 Transfer of Care Handoff Completed per policy Notes Mental Status: alert / awake / arousable and participated in evaluation Patient Amnestic to Procedure: Yes Nausea / Vomiting: adequately controlled Pain: adequately controlled Airway Patency, RR, SpO2: stable & adequate BP & HR: stable & adequate Hydration State: stable & adequate Anesthetic Complications: no major complications apparent and Pt Satisfied with anesthetic care
[2021-11-17] MEDS ORDERED: POTASSIUM CHLORIDE CRTAB 20 MEQ TABCR PO STA (08:36)
--- NOTE | 2021-11-17 08:54 | Cardioversion ---
Date of Service November 17, 2021 Electrical Cardioversion Rpt Electrical Cardioversion Report Patient was seen and examined this morning. Records in chart and medications reviewed Synchronized electrical cardioversion discussed in detail and informed consent obtained. After formal timeout performed patient was sedated via anesthesia consultation. Synchronized electrical cardioversion was performed using single 150 J biphasic shock with successful conversion to sinus rhythm EKG post procedure reveals sinus rhythm with premature atrial beats, rate 66 bpm with interventricular conduction delay QT prolonged with QT corrected 549 Plan: Continue telemetry. No further antiarrhythmic therapies
--- NOTE | 2021-11-17 08:56 | Cardiology Progress Note ---
Date of Service November 17, 2021 Assessment & Plan (1) Paroxysmal A-fib: (2) Status post cardiac pacemaker procedure: (3) Intractable vomiting with nausea: Plan: Patient is a 61-year-old female with very complex underlying issues including chronic gastroparesis with intermittent episodes of severe nausea and emesis. In addition she has had episodes of paroxysmal atrial fibrillation with tachybradycardia syndrome status post pacemaker insertion. Recent history notable for acute Covid infection 1 month ago Patient presents with flare of gastroparesis with severe nausea and abdominal cramping poor p.o. intake and multiple episodes of emesis. She lapsedinto atrial fibrillation with elevated ventricular response rate and associated hypertension as well. 11/17/2021: Patient clinically improved today. Underwent synchronized electrical cardioversion without incident now back in sinus rhythm. QT prolongation remains present Recommendations: Supplement potassium to greater than 4.0. No further antiarrhythmic/amiodarone, avoid QT prolonging drugs. Maintain telemetry additional 24 hours. Continue metoprolol succinate at current dosing Admission and Anticipated Discharge Date Admission Date: November 13, 2021 Subjective Patient was seen and examined, chart, medications, telemetry reviewed both pre and post synchronized electrical cardioversion. Nausea improved this morning and patient anxious to resume full diet. Patient underwent synchronized electrical cardioversion this morning with suc cessful conversion to sinus rhythm though with persistent QT prolongation. No arrhythmias on telemetry Review of Systems Review of Systems: All systems reviewed & are unremarkable except as noted in Subjective Physical Exam Constitutional: well developed; no acute distress Eyes: PERRL, conjunctivae normal, anicteric sclerae ENMT: external ear and nose normal, oropharynx normal Neck: trachea midline, no thyromegaly Respiratory: normal respiratory effort, lungs clear to auscultation Auscultation: no rales and no wheezes Cardiovascular: Rate/Rhythm: regular rate and regular rhythm Heart Sounds: normal S1 and normal S2; no gallop and no murmur Palpation: normal PMI Vessels: normal carotid upstroke and radial pulses present; no JVD and no carotid bruit Extremities: no edema Chest (Breasts): Chest: + pacemaker and + vascular access device or port Gastrointestinal (Abdomen): Inspection/Auscultation: + abdomen distended; no abdominal edema Percussion/Palpation: no guarding and no hepatosplenomegaly Musculoskeletal: no cyanosis or clubbing, extremities motor strength 5/5 Skin: no rashes, warm and dry Neurologic: PERRL, EOMI, accommodation nl, no face palsy, no dysarthria Psychiatric: A+Ox3, euthymic affect Results & Data ([facility]) Vital Signs (Past 12 Hours) Vital Signs Temp Pulse Pulse Resp BP Pulse Ox 11/17/21 07:50 69 16 107/77 97 11/17/21 07:35 71 16 116/86 97 11/17/21 03:00 36.6 C 81 16 150/108 H 94 11/17/21 00:26 36.5 C 97 H 16 125/89 97 11/17/21 00:11 95 H Laboratory Results Laboratory Results - last 24 hr 11/17/21 05:14 Sodium 144 Potassium 3.4 L Chloride 112 H Carbon Dioxide 26 Anion Gap 6 BUN 7 Creatinine 0.85 Est Cr Clr Drug Dosing 76.8 Est GFR ( Amer) 84.5 Est GFR (Non-Af Amer) 72.9 BUN/Creatinine Ratio 8.2 L Glucose 95 Calcium 7.7 L
[2021-11-17] MEDS: APIXABAN 5 MG TABLET PO SCH ×2 (08:59→20:17)
[2021-11-17] MEDS: METOPROLOL SUCC 50MG EXT REL TAB PO SCH ×3 (09:00→20:17)
[2021-11-17] MEDS: CYANOCOBALAMIN (B-12) 500 MCG TABLET PO SCH (13:01)
[2021-11-17] MEDS: PROMETHAZINE HCL 12.5 MG in SODIUM CHLORIDE 0.9% 50 ML IV PRN (15:56)
--- NOTE | 2021-11-17 17:12 | Gastroenterology Progress Note ---
Date of Service November 17, 2021 Assessment & Plan (1) Gastroparesis: Plan: Gastroparesis secondary to post surgical state. Ok with Zofran. lorazepam. Would avoid metoclopramide for a month or so, until cardiac arrythmia issues are stable. Low residual diet. GI will sign off. Please notify us if new/worsening GI issues. Admission and Anticipated Discharge Date Admission Date: November 13, 2021 Supervising Physician Co-Signing Physician Notes Attending attestation I have seen, examined this patient, and agree with the findings and above by our mid-level provider VANIA Scott, with the following additions: doing well in regards to nausea, wants to eat, underwent cardiovversion today continue to hold reglan until ok'd by cardiology and symptoms warrant Subjective 61, Female, Hx of post surgical/altered anatomy gastroparesis, normally improved but not controlled with metoclopramide and zofran. metoclopramide held during admission due to prolonged QT and new A-fib for which she was cardioverted this morning. Asking to eat a regular diet. Review of Systems Review of Systems: ROS: Gen: Denies weakness, fevers, weight loss Eyes: No eye redness, or pain, no recent vision changes Resp: No SOB, no cough Cardio: No palpitations/irregular beats, no chest pain GI: + chronic nausea, back to baseline; no vomiting since arrival; Chronic epigastric discomfort - not new, at baseline. No blood in BMs, no hematemesis. : Denies pain on urination Skin: No jaundice, itching or new rashes Physical Exam Constitutional: well developed and cooperative Eyes: PERRL, conjunctivae normal, anicteric sclerae Respiratory: normal respiratory effort, lungs clear to auscultation Cardiovascular: RRR, no murmur, no edema Gastrointestinal (Abdomen): Inspection/Auscultation: abdomen normal to inspection and normal bowel sounds; abdomen not distended and no abdominal edema Percussion/Palpation: + abdomen tender (upper abd tenderness. No signs of acute abdomen.) and abdomen soft; no guarding and abdomen not rigid Skin: no rashes, warm and dry normal turgor Neurologic: PERRL, EOMI, accommodation nl, no face palsy, no dysarthria awake; not confused Psychiatric: A+Ox3, euthymic affect Orientation: cooperative Lymphatic: no cervical or axillary lymphadenopathy Results & Data ([facility]) Vital Signs (Past 12 Hours) Vital Signs Temp Pulse Resp BP Pulse Ox 11/17/21 16:22 36.6 C 63 18 109/72 96 11/17/21 10:45 36.6 C 70 18 135/72 98 11/17/21 09:45 36.6 C 68 18 118/66 99 11/17/21 08:45 36.5 C 70 18 121/87 100 11/17/21 08:30 36.8 C 62 18 134/90 97 11/17/21 08:15 36.5 C 74 18 125/87 97 11/17/21 08:00 36.5 C 94 H 18 136/98 99 11/17/21 07:50 69 16 107/77 97 11/17/21 07:35 71 16 116/86 97 Laboratory Results Na 144, K 3.6, Cl 112, CO2 26, BUN 7, Cr 0.85, glucose 95.
--- NOTE | 2021-11-17 17:44 | Electrocardiogram Report ---
Test Reason : Blood Pressure : / mmHG Vent. Rate : 087 BPM Atrial Rate : 110 BPM P-R Int : 000 ms QRS Dur : 110 ms QT Int : 426 ms P-R-T Axes : 000 -08 -27 degrees QTc Int : 512 ms Atrial fibrillation Incomplete right bundle branch block Nonspecific T wave abnormality Prolonged QT Abnormal ECG When compared with ECG of 16-NOV-2020 07:11, QT has shortened Confirmed by Pedro Pablo Mendoza ([id number]) on 11/17/2021 5:43:53 PM Referred By: REFERRED SELF Confirmed By:Otto Mendoza
--- NOTE | 2021-11-17 17:44 | Electrocardiogram Report ---
Test Reason : Blood Pressure : / mmHG Vent. Rate : 066 BPM Atrial Rate : 066 BPM P-R Int : 184 ms QRS Dur : 118 ms QT Int : 524 ms P-R-T Axes : 000 -09 -22 degrees QTc Int : 549 ms Sinus rhythm with Premature atrial complexes with Aberrant conduction Incomplete right bundle branch block Minimal voltage criteria for LVH, may be normal variant ( Nic product ) T wave abnormality, consider anterolateral ischemia Prolonged QT Abnormal ECG When compared with ECG of 13-NOV-2021 17:14, Sinus rhythm has replaced Atrial fibrillation Vent. rate has decreased BY 63 BPM Confirmed by Pedro Pablo Mendoza ([id number]) on 11/17/2021 5:44:12 PM Referred By: REFERRED SELF Confirmed By:Otto Mendoza
--- NOTE | 2021-11-17 18:49 | Hospitalist Progress Note ---
Date of Service November 17, 2021 Assessment & Plan (1) Gastroparesis: Plan: Emesis and nausea has resolved. Diet advanced to regular. Avoiding Zofran and Reglan given prolonged QTc. CT a/p revealed no signs of obstruction this admission. (2) Atrial fibrillation with RVR: Plan: History of atrial fibrillation, tachy andre syndrome, status post pacemaker, history of paroxysmal atrial tachycardia: IV amio bolus transitioned to PO amio now, still in afib on telemetry. cont BB and Eliquis per cardiology. Plan for DCCV in am if not cardioverted medically. 3. Hypothyroidism chronic, stable, Continue Synthroid. 4. Gastroesophageal reflux disease chronic, uncertain if some of this may have been contributing to her nausea and vomiting, IV protonix. 5. Chronic obstructive pulmonary disease. chronic, stable without exacerbation. Lungs are clear to auscultation. 6. History of iron deficiency pernicious anemia. Currently, hemoglobin stable at 11.2. 7. Deep venous thrombosis prophylaxis: On Eliquis. DISPOSITION: likely to home in am once cleared by cardiology service. Juliane Long DO [facility] Ad[facility] and Anticipated Discharge Date Admission Date: November 13, 2021 Subjective 61 yo F with PAF s/p pacemaker and h/o gastroparesis presents with multiple episodes of emesis. Relapsed back in to afib with RVR Underwent DCCV this am that was successful Feeling well post procedure and diet advanced to regular food as requested. Denies nausea Denies chest pain or SOB. Review of Systems Review of Systems: All systems were reviewed and negative except as indicated in subjective above. Physical Exam Physical Exam: CONSTITUTIONAL: WNWD, vitals as above, generally well- appearing, NAD EYES: normal conjunctivae, no scleral icterus ENT: external ear and nose normal, MMM NECK: trachea midline, RESPIRATORY: clear to auscultation bilaterally, no crackles, rales or wheezes, normal respiratory effort CARDIOVASCULAR: regular rate and rhythm, S1 and 2 heard without murmurs, gallops or rubs, no JVD, no peripheral edema, CHEST: inspection of chest was normal (+pacemaker, +port) GASTROINTESTINAL: soft, nontender, ND, no guarding MUSCULOSKELETAL: strength 5/5 throughout, head is normocephalic and atraumatic SKIN: warm and dry, NEUROLOGIC: CN 2-12 grossly intact, no sensory deficit, normal cognition, normal speech, no tremor PSYCHIATRIC: alert cooperative and oriented to person, place and time. Euthymic mood, makes good eye contact, language grossly intact, recent and remote memory grossly intact. Results & Data Results & Data ([facility]) Vital Signs (Past 12 Hours) Vital Signs Temp Pulse Resp BP Pulse Ox 11/17/21 16:22 36.6 C 63 18 109/72 96 11/17/21 10:45 36.6 C 70 18 135/72 98 11/17/21 09:45 36.6 C 68 18 118/66 99 11/17/21 08:45 36.5 C 70 18 121/87 100 11/17/21 08:30 36.8 C 62 18 134/90 97 11/17/21 08:15 36.5 C 74 18 125/87 97 11/17/21 08:00 36.5 C 94 H 18 136/98 99 11/17/21 07:50 69 16 107/77 97 11/17/21 07:35 71 16 116/86 97 Laboratory Results [facility] 11/17/21 05:14 Sodium 144 Potassium 3.4 L Chloride 112 H Carbon Dioxide 26 BUN 7 Creatinine 0.85 Glucose 95 Calcium 7.7 L Medications Administered Current Inpatient Medications Acetaminophen (Acetaminophen 325 Mg Tab) 650 mg PO Q4H PRN PRN Reason: FEVER OR PAIN Stop: 12/14/21 16:28 Apixaban (Apixaban 5 Mg Tablet) 5 mg PO BID [facility] Stop: 12/14/21 08:59 Last Admin: 11/17/21 08:59 Dose: 5 mg Documented by: Cyanocobalamin (Cyanocobalamin (B-12) 500 Mcg Tablet) 1,000 mcg PO DAILY [facility] Stop: 12/14/21 08:59 Last Admin: 11/17/21 13:01 Dose: 1,000 mcg Documented by: Dicyclomine HCl (Dicyclomine Hcl 10 Mg Cap) 10 mg PO BID PRN PRN Reason: Abdominal Discomfort Stop: 12/13/21 22:54 Last Admin: 11/15/21 07:30 Dose: 10 mg Documented by: Heparin Sodium (Porcine) (Heparin 100 Unit/Ml 5ml Flush) 5 ml FLUSH PRN PRN PRN Reason: Flush Stop: 12/14/21 10:43 Hydromorphone HCl (Hydromorphone Inj 0.5 Mg/0.5 Ml Syr) 0.5 mg IV Q4H PRN PRN Reason: Pain Stop: 11/27/21 22:54 Last Admin: 11/14/21 04:39 Dose: 0.5 mg Documented by: Promethazine HCl 12.5 mg/ (Sodium Chloride) 50.5 mls @ 202 mls/hr IV Q6H PRN PRN Reason: Nausea And Vomiting Stop: 12/13/21 22:54 Last Infusion: 11/17/21 17:18 Dose: Infused Documented by: Levothyroxine Sodium (Levothyroxine Sodium 88 Mcg Tablet) 88 mcg PO DAILYBB [facility] Stop: 12/14/21 06:29 Last Admin: 11/17/21 06:05 Dose: 88 mcg Documented by: Lorazepam (Lorazepam 0.5 Mg Tab) 0.5 mg PO Q6H PRN PRN Reason: Anxiety Stop: 12/14/21 16:28 Last Admin: 11/17/21 02:30 Dose: 0.5 mg Documented by: Metoclopramide HCl (Metoclopramide Hcl 10 Mg Tablet) 10 mg PO TID [facility] Stop: 12/14/21 08:59 Last Admin: 11/14/21 12:34 Dose: Not Given Documented by: Metoprolol Succinate (Metoprolol Succ 50mg Ext Rel Tab) 50 mg PO TID [facility] Stop: 12/15/21 13:59 Last Admin: 11/17/21 14:51 Dose: 50 mg Documented by: Metoprolol Tartrate (Metoprolol Tartrate 1 Mg/Ml Vial) 5 mg IV Q6 PRN PRN Reason: Tachycardia Stop: 12/13/21 22:54 Last Admin: 11/14/21 05:46 Dose: 5 mg Documented by: Nitroglycerin (Nitroglycerin Sl 0.4 Mg/Tab Tab) 0.4 mg SL UD PRN PRN Reason: Chest Pain Stop: 12/13/21 22:54 Prenat Multivit/[place]/Iron/Folic Ac ( Vitamin 1 Tab) 1 tab PO HS [facility] Stop: 12/14/21 20:59 Last Admin: 11/16/21 19:59 Dose: 1 tab Documented by:
[2021-11-17] MEDS: PRENATAL VITAMIN 1 TAB PO SCH (20:17)
[2021-11-18] MEDS: LEVOTHYROXINE SODIUM 88 MCG TABLET PO SCH (05:42)
[2021-11-18 06:52] LABS: BUN Creatinine Ratio 8.2 (10-20); Calcium 7.9 mg/dl (8.5-10.1); Creatinine Clr Calc Pharmacy 75.8 ml/min; Est GFR (African American) 84.5 ml/min; Est GFR (Non-African American) 72.9 ml/min; Potassium 3.4 mmol/L (3.5-5.1)
[2021-11-18] MEDS: METOPROLOL SUCC 50MG EXT REL TAB PO SCH (08:08)
[2021-11-18] MEDS: APIXABAN 5 MG TABLET PO SCH (08:09)
[2021-11-18] MEDS: CYANOCOBALAMIN (B-12) 500 MCG TABLET PO SCH (08:09)
--- NOTE | 2021-11-18 09:37 | Cardiology Progress Note ---
Date of Service November 18, 2021 Assessment & Plan (1) Paroxysmal A-fib: (2) Status post cardiac pacemaker procedure: (3) Intractable vomiting with nausea: Plan: Patient is a 61-year-old female with very complex underlying issues including chronic gastroparesis with intermittent episodes of severe nausea and emesis. In addition she has had episodes of paroxysmal atrial fibrillation with tachybradycardia syndrome status post pacemaker insertion. Recent history notable for acute Covid infection 1 month ago Patient presents with flare of gastroparesis with severe nausea and abdominal cramping poor p.o. intake and multiple episodes of emesis. She lapsed into atrial fibrillation with elevated ventricular response rate and associated hypertension as well. 11/18/2021: Patient underwent synchronized electrical cardioversion yesterday with conversion to sinus rhythm but once again has returned to atrial fibrillation this morning. Patient unable to tolerate antiarrhythmic therapies Tachybradycardia issues addressed with pacemaker Recommendations: Supplement potassium . Increase metoprolol succinate to 100 mg twice per day with this being plan discharge dose. We will make arrangements for follow-up electrophysiology post discharge. If rate still poorly controlled or symptomatic we will likely arrange for AV junction ablation No contraindications to discharge today Admission and Anticipated Discharge Date Admission Date: November 13, 2021 Subjective Patient seen and examined, chart, medications, telemetry reviewed. Nausea and GI upset significantly better able to eat cautiously. No chest pains. No shortness of breath. Patient did lapse back into atrial fibrillation with elevated ventricular response approximately 830 this morning. Patient minimally symptomatic heart rates trending approximately 100-110 Review of Systems Review of Systems: All systems reviewed & are unremarkable except as noted in Subjective Physical Exam Constitutional: well developed; no acute distress Eyes: PERRL, conjunctivae normal, anicteric sclerae ENMT: external ear and nose normal, oropharynx normal Neck: trachea midline, no thyromegaly Respiratory: normal respiratory effort, lungs clear to auscultation Auscultation: no rales and no wheezes Cardiovascular: Rate/Rhythm: regular rate and regular rhythm Heart Sounds: normal S1 and normal S2; no gallop and no murmur Palpation: normal PMI Vessels: normal carotid upstroke and radial pulses present; no JVD and no carotid bruit Extremities: no edema Chest (Breasts): Chest: + pacemaker and + vascular access device or port Gastrointestinal (Abdomen): Inspection/Auscultation: + abdomen distended; no abdominal edema Percussion/Palpation: no guarding and no hepatosplenomegaly Musculoskeletal: no cyanosis or clubbing, extremities motor strength 5/5 Skin: no rashes, warm and dry Neurologic: PERRL, EOMI, accommodation nl, no face palsy, no dysarthria Psychiatric: A+Ox3, euthymic affect Results & Data ([facility]) Vital Signs (Past 12 Hours) Vital Signs Temp Pulse Resp BP Pulse Ox Pulse Ox 11/18/21 08:00 95 11/18/21 07:30 36.6 C 66 18 137/94 95 11/18/21 04:48 36.8 C 75 18 121/79 96 11/18/21 00:26 36.7 C 83 18 139/91 97 Laboratory Results Laboratory Results - last 24 hr 11/18/21 05:39 Sodium 141 Potassium 3.4 L Chloride 108 H Carbon Dioxide 28 Anion Gap 5 BUN 7 Creatinine 0.85 Est Cr Clr Drug Dosing 75.8 Est GFR ( Amer) 84.5 Est GFR (Non-Af Amer) 72.9 BUN/Creatinine Ratio 8.2 L Glucose 81 Calcium 7.9 L
[2021-11-18] MEDS ORDERED: METOPROLOL SUCC 50MG EXT REL TAB PO ONE (09:38)
[2021-11-18] MEDS: POTASSIUM CHLORIDE CRTAB 20 MEQ TABCR PO SCH ×2 (10:26→15:00)
--- NOTE | 2021-11-18 12:05 | Electrocardiogram Report ---
Test Reason : Blood Pressure : / mmHG Vent. Rate : 091 BPM Atrial Rate : 300 BPM P-R Int : 000 ms QRS Dur : 114 ms QT Int : 408 ms P-R-T Axes : 000 -09 -31 degrees QTc Int : 501 ms Atrial fibrillation with a competing junctional pacemaker with premature ventricular or aberrantly co nducted complexes Incomplete right bundle branch block Prolonged QT Abnormal ECG When compared with ECG of 17-NOV-2021 07:25, Atrial fibrillation has replaced Sinus rhythm Confirmed by Pedro Pablo Mendoza ([id number]) on 11/18/2021 12:05:38 PM Referred By: REFERRED SELF Confirmed By:Otto Mendoza
--- NOTE | 2021-11-18 17:37 | Discharge Summary ---
Date of Service November 18, 2021 Admission HPI Per Admitting Provider HISTORY OF PRESENT ILLNESS: This is a 61-year-old female with past medical history significant for atrial fibrillation, tachybrady syndrome, status post pacemaker, history of hiatal hernia, status post surgery, since then having gastroparesis as per the patient, history of prolonged QT, history of COPD, chronic kidney disease stage III, history of anemia, history of mitral regurgitation, hypothyroidism, status post right subclavian port, ongoing tobacco use, history of pernicious anemia, iron deficiency anemia, history of pemphigus, general anxiety disorder, presents with nausea, vomiting, abdominal pain. The patient with multiple admissions for nausea and abdominal pain from gastroparesis. Has nausea but the patient says she is not able to bring much,, small amount of vomitus. Has abdominal pain radiating to back. Says was able to take pills. Denies any chest pain. She says that she is short of breath since she got COVID first time, last month when she had again recurrent COVID, but today it is negative. Denies any fever, denies any headache. No blurred visions, no earache, no, no runny nose, no sore throat. Had a bowel movement today, it was normal. Normal bladder movements. No swelling in the legs. Ambulating okay. Currently, the patient is tachycardic in the ER. Admission Exam Per Admitting Provider PHYSICAL EXAMINATION: GENERAL: The patient is of moderate build, not in acute distress. VITAL SIGNS: Temperature 36.9, pulse 130, respiratory rate 24, blood pressure 164/102, oxygen 98% on room air. HEENT: Pupils equal, round and reactive to light. Oral mucosa moist. NECK: No JVD. No neck masses. CARDIOVASCULAR: S1 and S2 heard, tachycardia, irregular rhythm. No murmurs. RESPIRATORY SYSTEM: Normal AP diameter. No accessory muscle use. No wheezing, no crackles. ABDOMEN: Soft, bowel sounds present. Diffuse mild discomfort, no guarding, no rigidity, no distention. CENTRAL NERVOUS SYSTEM: Alert and oriented. Speech is clear. No facial droop. Insight is good. Obeys simple commands. Moves extremities. EXTREMITIES: No edema, no erythema. Principal Diagnosis Paroxysmal atrial fibrillation s/p cardiac pacemaker DC cardioversion on 11/17 nausea and vomiting-resolved chronic gastroparesis prolonged QT Discharge Exam CONSTITUTIONAL: WNWD, vitals as above, generally well-appearing, NAD EYES: normal conjunctivae, no scleral icterus ENT: external ear and nose normal, MMM NECK: trachea midline, RESPIRATORY: clear to auscultation bilaterally, no crackles, rales or wheezes, normal respiratory effort CARDIOVASCULAR: regular rate and rhythm, S1 and 2 heard without murmurs, gallops or rubs, no JVD, no peripheral edema, CHEST: inspection of chest was normal GASTROINTESTINAL: soft, nontender, ND, no guarding MUSCULOSKELETAL: strength 5/5 throughout, head is normocephalic and atraumatic SKIN: warm and dry NEUROLOGIC: CN 2-12 grossly intact, no sensory deficit, normal cognition, normal speech, no tremor PSYCHIATRIC: alert cooperative and oriented to person, place and time. Discharge Data Allergies Allergy/AdvReac Type Severity Reaction Status Date / Time adhesive Allergy Mild POWERS SKIN Verified 11/13/21 17:57 capsaicin Allergy Mild ITCHINESS Verified 11/13/21 17:57 amoxicillin AdvReac Intermediate yeast Verified 11/13/21 17:57 infection scopolamine AdvReac Intermediate rash from Verified 11/13/21 17:57 patch NSAIDS (Non-Steroidal AdvReac Mild indegestion Verified 11/13/21 17:57 Anti-Inflamma rofecoxib AdvReac Mild indigestion Verified 11/13/21 17:57 Consultations 11/13/21 19:59 ED Decision to Admit Stat 11/14/21 07:51 Consult Cardiology Routine 11/15/21 10:23 Consult Gastroenterology Routine 11/16/21 11:27 Consult Anesthesiology Routine Procedures Performed Operation Date: 11/17/21 07:45 Actual Procedures p Cardioversion - Luis Negro MD Ordered Studies Laboratory Results WBC 8.92 K/uL (4.8-10.8) 11/14/21 05:36 RBC 4.29 M/uL (4.2-5.4) 11/14/21 05:36 Hgb 10.6 g/dL (12.0-16.0) L 11/14/21 05:36 Hct 34.6 % (37-47) L 11/14/21 05:36 MCV 80.7 fL (80-100) 11/14/21 05:36 MCH 24.7 pg (25-34) L 11/14/21 05:36 MCHC 30.6 g/dL (32-36) L 11/14/21 05:36 RDW Std Deviation 48.2 fL (36.4-46.3) H 11/14/21 05:36 RDW Coeff of Ana M 16.3 % (11.5-14.5) H 11/14/21 05:36 Plt Count 360 K/uL (130-400) 11/14/21 05:36 MPV 9.9 fL (7.4-10.4) 11/14/21 05:36 Immature Gran % (Auto) 0.3 % 11/14/21 05:36 Neut % (Auto) 85.7 % 11/14/21 05:36 Lymph % (Auto) 10.7 % 11/14/21 05:36 Wolfe % (Auto) 3.3 % 11/14/21 05:36 Eos % (Auto) 0.0 % 11/14/21 05:36 Baso % (Auto) 0.0 % 11/14/21 05:36 Neut # (Auto) 7.65 K/uL (1.4-6.5) H 11/14/21 05:36 Lymph # (Auto) 0.95 K/uL (1.2-3.4) L 11/14/21 05:36 Wolfe # (Auto) 0.29 K/uL (0.11-0.59) 11/14/21 05:36 Eos # (Auto) 0.00 K/uL (0-0.5) 11/14/21 05:36 Baso # (Auto) 0.00 K/uL (0-0.2) 11/14/21 05:36 Immature Gran # (Auto) 0.03 K/uL (0.00-0.02) H 11/14/21 05:36 PT 10.1 Seconds (9.0-12.0) 11/13/21 17:35 INR 1.0 (0.9-1.1) 11/13/21 17:35 Sodium 141 mmol/L (136-145) 11/18/21 05:39 Potassium 3.4 mmol/L (3.5-5.1) L 11/18/21 05:39 Chloride 108 mmol/L (98-107) H 11/18/21 05:39 Carbon Dioxide 28 mmol/L (21-32) 11/18/21 05:39 Anion Gap 5 (3-11) 11/18/21 05:39 BUN 7 mg/dl (6-23) 11/18/21 05:39 Creatinine 0.85 mg/dl (0.6-1.2) 11/18/21 05:39 Est Cr Clr Drug Dosing 75.8 ml/min 11/18/21 05:39 Est GFR ( Amer) 84.5 ml/min 11/18/21 05:39 Est GFR (Non-Af Amer) 72.9 ml/min 11/18/21 05:39 BUN/Creatinine Ratio 8.2 (10-20) L 11/18/21 05:39 Glucose 81 mg/dl (70-99(Fasting)) 11/18/21 05:39 Estimat Average Glucose 126 mg/dl 11/14/21 05:36 Hemoglobin A1c 6.0 % (4.5-5.6) H 11/14/21 05:36 Calcium 7.9 mg/dl (8.5-10.1) L 11/18/21 05:39 Magnesium 1.8 mg/dl (1.7-2.4) 11/16/21 05:41 Iron 19 mcg/dl (35-150) L 11/15/21 08:46 Transferrin 401 mg/dl (200-360) H 11/15/21 08:46 Ferritin 5.2 ng/ml (8-388) L 11/15/21 08:46 Total Bilirubin 0.4 mg/dl (0.2-1.0) 11/13/21 17:35 AST 13 U/L (13-39) 11/13/21 17:35 ALT 14 U/L (7-52) 11/13/21 17:35 Alkaline Phosphatase 95 U/L (34-104) 11/13/21 17:35 Troponin I < 0.03 ng/ml (0-0.04) 11/13/21 17:35 Total Protein 6.7 gm/dl (6.0-8.3) 11/13/21 17:35 Albumin 4.0 gm/dl (3.4-5.0) 11/13/21 17:35 Globulin 2.7 gm/dl (2.5-4.0) 11/13/21 17:35 Albumin/Globulin Ratio 1.5 (0.9-2) 11/13/21 17:35 Lipase 17 U/L (11-82) 11/13/21 17:35 Vitamin B12 > 1500 pg/ml (211-911) H 11/15/21 08:46 Folate 20.87 ng/ml (>5.38) 11/15/21 08:46 Folate Cancelled 11/15/21 08:46 Urine Color Yellow 11/13/21 21:55 Urine Appearance Clear (Clear) 11/13/21 21:55 Urine pH 5.0 (4.5-7.5) 11/13/21 21:55 Ur Specific [place] > 1.045 (1.000-1.030) H 11/13/21 21:55 Urine Protein Negative (Negative) 11/13/21 21:55 Urine Glucose (UA) Trace (Negative) H 11/13/21 21:55 Urine Ketones 1+ (Negative) H 11/13/21 21:55 Urine Blood Negative (Negative) 11/13/21 21:55 Urine Nitrite Negative (Negative) 11/13/21 21:55 Urine Bilirubin Negative (Negative) 11/13/21 21:55 Urine Urobilinogen Negative (Negative) 11/13/21 21:55 Ur Leukocyte Esterase Negative (Negative) 11/13/21 21:55 SARS-CoV-2, RNA, NAAT NEGATIVE (NEGATIVE) 11/13/21 20:00 Impressions Abdomen/Pelvis CT 11/13/21 17:[address] WITH IV CONTRAST CT DOSE: 592.03 mGy.cm HISTORY: Acute generalized abdominal pain with history of gastroparesis Abdominal pain, hx of gastroparesis TECHNIQUE: Multiaxial CT images of the abdomen and pelvis were performed following the IV administration of 94 cc of Optiray, A dose lowering technique was utilized adhering to the principles of ALARA. COMPARISON STUDY: CTA chest 10/10/2020, CTA abdomen and pelvis 07/04/2020 FINDINGS: Cardiac megaly with partially imaged pacer leads. Mild subsegmental bibasilar atelectasis. No pneumatosis or pneumoperitoneum. Fluid-filled distended distal esophagus has progressed from prior. Calcification versus extraluminal contrast adjacent to the gastroesophageal junction is unchanged. Chronic postoperative changes of the stomach. Unremarkable spleen, pancreas and left adrenal gland. Stable right adrenal gland adenoma, 2.3 cm. Cholecystectomy. Extrahepatic biliary ductal dilation redemonstrated, likely postsurgical. Unremarkable liver. Patent portal vein. There are a few scattered subcentimeter hypodensities of the right kidney which are too small to characterize however favor cysts measuring up to 7 mm. No urolith or hydronephrosis. Unremarkable urinary bladder. Hysterectomy. No abdominal aortic aneurysm. No bowel obstruction or bowel wall thickening. Colonic diverticulosis without acute diverticulitis. Normal appendix. Unremarkable soft tissues. Degenerative changes of the spine, pelvis and hips. No acute fracture. IMPRESSION: 1. No acute intra-abdominal or intrapelvic abnormality. 2. No bowel obstruction or bowel wall thickening. Normal appendix. 3. Colonic diverticulosis. 4. Chronic postoperative changes of the stomach with mild distention of the distal esophagus. ACT 112: Negative or not required by law. The above report was generated using voice recognition software. It may contain grammatical, syntax or spelling errors. Electronically signed by: Daniele Reis M.D. 11/13/2021 7:26 PM Chest X-Ray 11/13/21 17:17 XR chest 1V portable HISTORY: 61 years-old Female upper ABD pain acute upper abdominal pain COMPARISON: Chest radiograph 10/02/2021 TECHNIQUE: AP view of the chest FINDINGS: Cardiac silhouette is enlarged. Left subclavian pacer. Right IJ [id number] catheter distal tip is noted in the expected location of the mid to inferior SVC. No pneumothorax or large pleural effusion. Small hiatal hernia with unchanged radiodense focus adjacent to the distal esophagus. Unchanged blunting of the costophrenic angles with mild linear subsegmental left basilar atelectasis/scarring. Degenerative changes of the shoulders and spine. IMPRESSION: Cardiomegaly without acute process. ACT 112: Negative or not required by law. The above report was generated using voice recognition software. It may contain grammatical, syntax or spelling errors. Electronically signed by: Daniele Reis M.D. 11/13/2021 5:46 PM Hospital Course (1) Gastroparesis: (2) Atrial fibrillation with RVR: (3) Vomiting: (4) Prolonged QT interval: The patient is a 61-year-old female who presented with nausea and vomiting. She has a history of chronic gastroparesis. She was found to have a prolonged QT on her EKG and was placed on IV Phenergan. Reglan and Zofran were held. She also has a history of atrial fibrillation with tachybradycardia syndrome status post pacemaker placement and history of paroxysmal atrial tachycardia. She is currently on metoprolol and Eliquis and developed rapid ventricular response during this admission. She was placed on IV Lopressor and cardiology was consulted. Options of medical management for her heart rate were limited with diltiazem contraindicated in setting of gastroparesis. Beta- lauren at reasonable dose was currently not persistently effective by pacer interrogation. Therefore IV amiodarone was initiated cautiously in the setting of QT prolongation. She did not convert to sinus rhythm but her vomiting and nausea did stop. She began to tolerate oral food without issue. She was transitioned to oral amiodarone and a DC cardioversion was performed on the morning of 11/17. Potassium was supplemented throughout her hospital stay. DC cardioversion was unsuccessful and she returned to atrial fibrillation within 24 hours. Referral to electrophysiology for consideration of AV junction ablation was recommended. She was discharged on elevated dose of metoprolol in stable condition with close primary care follow-up recommended. Amiodarone was not continued. Total Time Total Time Spent Total Time Spent (In Minutes): 60 Discharge Plan Discharge Items Patient Disposition: Home - Self-Care Reason For Visit: Abdominal Pain Discharge Diagnosis: Paroxysmal atrial fibrillation s/p cardiac pacemaker DC cardioversion on 11/17 nausea and vomiting-resolved chronic gastroparesis prolonged QT Condition on Discharge: Good Activity: Resume your previous activity Non-emergency contact: Primary Care Provider Call non-emergency contact if: you have any medication questions and your symptoms worsen Follow-up/Referrals: Jaleel Coppola MD [Primary Care Provider] - (Date & Time 11/22/2021 8:40 AM Provider Maddy Khan PA-C Department Family Medicine [facility] ) Diet: Regular Addtl Attending Provider Instructions: Please take all medications as instructed on discharge list below. Your metoprolol succinate (Toprol XL) has been adjusted to 100mg twice daily. Please avoid Reglan for the next few weeks until you are seen by Cardiology and cleared to start taking this again. Please follow-up with Dr. Ramirez regarding ablation options for atrial fibrillation treatment after the unsuccessful DC cardioversion in the hospital. Please continue the recommended diet with modifications for your chronic gastroparesis per [facility]. It is recommended that you follow-up with your primary care physician (PCP) within one week to ensure you are still doing well on the new dose of medication. Your potassium was also found to be slightly low while admitted and may be rechecked on follow-up to see if you need additional supplementation. It was a pleasure taking care of you! Please call if you have any questions or problems. You can reach a [facility] hospitalist on duty at [facility] 24 hours a day by calling [phone]. Take care of yourself. Juliane Long DO [facility] Pending Studies at Discharge: No Stand-Alone Forms: [facility] Medications and DC Order Prescriptions: New metoprolol succinate [Toprol XL] 100 mg tablet extended release 24 hr 100 mg PO BID Qty: 60 RF: 0 Continued dicyclomine 10 mg capsule 10 mg PO BID PRN (Reason: Abdominal Discomfort) RF: 0 pantoprazole 40 mg Tablet,Delayed Release (Dr/Ec) 40 mg PO BID Qty: 60 RF: 0 acetaminophen [Tylenol Extra Strength] 500 mg Tablet 1,000 mg PO Q6H PRN (Reason: Fever Or Pain) Qty: 60 RF: 0 levothyroxine [Synthroid] 88 mcg tablet 88 mcg PO QAM Qty: 30 RF: 0 promethazine 25 mg tablet 25 mg PO Q6H PRN (Reason: Nausea) RF: 0 cyanocobalamin (vitamin B-12) [Vitamin B-12] 1,000 mcg Tablet 1,000 mcg PO DAILY RF: 0 vit-iron fum-folic ac 65 mg iron- 1 mg Tablet 1 tab PO HS RF: 0 Eliquis 5 mg tablet 5 mg PO BID RF: 0 Discontinued metoclopramide HCl 10 mg tablet 10 mg PO TID RF: 0 metoprolol succinate 50 mg Tablet Extended Release 24 Hr 50 mg PO BID Qty: 60 RF: 0 Discharge Orders: Discharge Order (Routine); Ordered 11/18/21 Ordered By: Juliane Meraz/Other Patient Handouts: A1C Admission Data Admit Date/Time: 11/13/21 21:39 Attending Provider: Juliane Long Admit Provider: Leandro Gusman Primary Care Provider: Jaleel Coppola Other Providers: Leandro Gusman ; Evgeny Devi ; Dino Moreno ; Juanita Amaya ; Yasmeen Gao ; Becky Mehta ; Karla Garcia ; Joe Hancock ; Leonel Velazquez ; Fabricio Guzmán ; Radhames Ricci ; Apryl Ricci ; Dony Galeana ; Alba Cruz ; Yuniel Manuel ; Matteo Tolliver ; Colton Maldonado ; Baltazar Sequeira ; Sindi Van ; Mele Lopez ; Lauren Echeverria ; Alexa Lopez ; Caio Hollingsworth ; Nataliia Ritter ; Humberto Srivastava ; Demetria Herrera ; Jessica Holt ; Nataliia Ewing ; Tosha Pepper ; Sky Delgado ; Kiya Wang ; Stefani Torres A ; Sera Parker ; Cheyenne Caputo ; Genaro Caputo V ; Efrain Cheney ; Yasmeen Subramanian ; Cornel Dumont ; Naa Staton ; Kelley Steele A ; Genaro Mc ; Mario Van ; Naseem Haywood ; Alaina Corcoran ; Alka Thomas ; Genaro Mandel ; Sera Mcintosh ; Syed Woods ; Cyril Sequeira ; Cassandra Sheehan. ; Gera Crabtree ; Rosey Callahan ; Aleksandr Carilsle ; Francois Pompa ; Gera Davila ; Joe Moreland Jr ; Bouchra Carr ; Mray Landis Other Interventions: Discharge Summary Assessment (RN) Last Done: 11/18/21 18:27
[2021-11-18] MEDS ORDERED: METOPROLOL SUCC 50MG EXT REL TAB PO SCH (21:00)
== END 2021-11-18 19:50 | disposition home or self-care (01) | DRG 392 ==
LOC: ED 17:06 → SUATTDRO 21:39 → 2S 21:39

== ENCOUNTER 2021-11-26 13:59 | Observation (INO) ==
[2021-11-26] MEDS ORDERED: SODIUM CHLORIDE 0.9% 500 ML IV STA (14:10)
[2021-11-26] MEDS ORDERED: fentaNYL citrate 100 MCG/2 ML VIAL IV STA (14:12)
--- NOTE | 2021-11-26 14:23 | Emergency Department Note ---
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 Patient was admitted approximately a week ago for similar symptoms was noted that time to have atrial fibrillation and a prolonged QTc. Attempted cardioversion during prior hospitalization unsuccessful and she is planning to undergo further evaluation for possible AV ablation with electrophysiology. Patient states she been able to take her medicine has not vomited but is having significant dry heaves and feels very nauseous. This is worsened overnight and has not allowed her to sleep. States she is able to take some sips of water but is unable to keep down significant amounts of food. Patient states she has dumping syndrome and at times will have some diarrhea. Reports some diffuse abdominal pain in the upper and left lower quadrant around the lower abdomen. Reports that the pain in the left side of her abdomen is new compared to previous. Patient states again she has been able to take her medications at home does have her discharge medication list from her prior hospitalization. REVIEW OF SYSTEMS: A total of 10 review of systems was obtained and negative except as stated above in the HPI. PAST MEDICAL HISTORY: As noted above MEDICATIONS: Reviewed patient's home medication list with her at bedside SOCIAL HISTORY: Smoker PHYSICAL EXAM: GENERAL: alert and oriented in no acute distress on stretcher, although later at times has some episodes of dry heaving Head: normocephalic and atraumatic EYES: No injection, discharge or icterus. NECK: Trachea midline. ENT: Mucous membranes pink and moist. LUNGS: Airway patent. No retractions. Breath sounds clear HEART: Irregular rate and rhythm. Left mid upper chest subcutaneous pacemaker noted. ABDOMEN: Soft with some diffuse upper and left-sided abdominal tenderness. SKIN: Acyanotic, warm, dry EXTREMITIES: Without swelling, tenderness or deformity NEUROLOGICAL: No focal deficits. No aphasia. No facial droop or slurred speech. EK bpm atrial fibrillation without acute ST segment elevation noted. Nonspecific T wave changes with a QTC of approximately 505. Review the previous available from November 18 of this year, still in atrial fibrillation some less apparent T wave inversions with a similar QTC CONTINUOUS CARDIAC MONITORING: was ordered and showed a heart rate of 90s-110s bpm in atrial fibrillation Patient's laboratory studies and imaging reviewed. Differential includes Appendicitis, infections, diverticulitis, UTI, obstruction, mesenteric ischemia, aortic pathology, inflammatory bowel disease, renal colic, PUD, pancreatitis, biliary pathology, hernia, volvulus, constipa tion, as well as other pathologies. IMPRESSION/MEDICAL DECISION MAKING: Reviewed patient's prior hospitalization record from last week. Patient with some diffuse abdominal tenderness. Patient with some active dry heaves at times. EKG to obtain to excess for QTc interval given recent prolongation of this to help with selection of antiemetics. Patient states she has been able to take some sips of fluids and does not appear severely dehydrated. Given her pain and operative history in her abdomen, CT abdomen pelvis to be obtained. Given some fentanyl for pain and some IV fluids. QTC on initial EKG appears similar to previous at discharge and at that time she was discharged on some Phenergan. Will cautiously give a small amount of IV Phenergan via her port. Labs were checked including magnesium. Seems less likely to be ACS or pulmonary relation. Question exacerbation of underlying gastroparesis. After slight delay due to port issues call letter returns with stable mild anemi a no significant leukocytosis. No severe electrolyte abnormalities noted with some mild hypercalcemia. No significant findings concerning for acute hepatitis or pancreatitis based on labs and a negative troponin. Patient on reassessment was having some improvement of her nausea and abdominal pain and states it was still coming in waves at times. CT of the abdomen pelvis Questions a possible ileus versus very mild early SBO. Patient is passing flatus and had BM earlier today and I doubt this represents SBO. Patient with intractable nausea and vomiting continuing however. Given this believe further observation is indicated and will reach out to the hospitalist team. DIAGNOSIS: GI, abdominal pain, gastroparesis DISPOSITION: Hospitalist will evaluate Patient was agreeable with this plan. Past Med/Surg History Medical History Acidosis, lactic Anxiety Asthma COPD (chronic obstructive pulmonary disease) COVID-19 COVID-19 Depression Diverticulosis Frequent PVCs Gastroparesis GERD (gastroesophageal reflux disease) H/O irritable bowel syndrome HTN (hypertension) Hypokalemia Hypomagnesemia Hypomagnesemia Hypophosphatemia Hypothyroidism Intractable nausea and vomiting Mitral regurgitation "moderate per echo 09/21/15" Neuropathy Paroxysmal A-fib Pemphigus vulgaris Prolonged QT interval Tobacco abuse Surgical History History of bladder surgery History of laparoscopic partial gastrectomy History of pyloroplasty History of total hysterectomy Hx of cholecystectomy Hx of tonsillectomy S/P hysterectomy S/P laparoscopic sleeve gastrectomy S/P partial gastrectomy S/P repair of paraesophageal hernia "resulted in volvulus, required abdominal exploration" S/P tonsillectomy and adenoidectomy Family History Mother DM type 2 (diabetes mellitus, type 2) Coronary heart disease Social History Smoking Status: Current every day smoker Tobacco Type: Cigarettes Cigarettes Per Day: 1 ppd; Second Hand Exposure: Yes; Hx Alcohol Use: Yes Alcohol type: other Alcohol Intake Frequency Comment: 3-4 beers/week Hx Substance Use: No Preferred Language: Ecuadorean Communication Ability: Effective Banquet Line Cook Required: No Beliefs That Will Affect Care: None marital status: Single Current Living Situation: Family Current Living Situation Comment: Pt lives with brother How many Children do You have: 2 Feels Safe at Home: Yes Assistive Devices: Glasses Allergies Allergies Allergy/AdvReac Type Severity Reaction Status Date / Time adhesive Allergy Mild POWERS SKIN Verified 11/26/21 14:57 capsaicin Allergy Mild ITCHINESS Verified 11/26/21 14:57 amoxicillin AdvReac Intermediate yeast Verified 11/26/21 14:57 infection scopolamine AdvReac Intermediate rash from Verified 11/26/21 14:57 patch NSAIDS (Non-Steroidal AdvReac Mild indegestion Verified 11/26/21 14:57 Anti-Inflamma rofecoxib AdvReac Mild indigestion Verified 11/26/21 14:57 Home Meds Home Medications Medication Instructions Recorded Confirmed dicyclomine 10 mg capsule 10 mg PO BID PRN 12/17/19 11/26/21 promethazine 25 mg tablet 25 mg PO Q6H PRN 09/30/20 11/26/21 apixaban 5 mg tablet (Eliquis) 5 mg PO BID 10/02/21 11/26/21 cyanocobalamin (vitamin B-12) 1,000 mcg PO DAILY 10/02/21 11/26/21 1,000 mcg tablet (Vitamin B-12) vitamins-iron fumarate 65 1 tab PO HS 10/02/21 11/26/21 mg iron-folic acid 1 mg tablet Previous Rx's Medication Instructions Recorded pantoprazole 40 mg tablet,delayed 40 mg PO BID #60 tab 12/10/19 release acetaminophen 500 mg tablet 1,000 mg PO Q6H PRN #60 tab 12/16/19 (Tylenol Extra Strength) levothyroxine 88 mcg tablet 88 mcg PO QAM #30 tab 12/16/19 (Synthroid) metoprolol succinate 100 mg 100 mg PO BID #60 tab 11/18/21 tablet,extended release 24 hr (Toprol XL) Results & Data (ED) Vital Signs Vital Signs - 24 hr 11/26/21 14:10 11/26/21 15:36 11/26/21 16:10 Temperature 36.8 C Temperature Source Oral Pulse Rate 107 H Pulse Rate [Apical] 92 H Pulse Rhythm Irregular Pulse Rhythm [Apical] Respiratory Rate 20 17 Respiratory Effort / Characteristics Non-Labored Spontaneous Respiratory Depth Normal Respiratory Pattern Regular Blood Pressure 133/109 H Blood Pressure [Right Arm] 129/99 Blood Pressure Mean 117 Blood Pressure Mean [Right Arm] 109 Pulse Oximetry 95 96 95 Oxygen Delivery Method Room Air Room Air Room Air Sepsis Recent Fever Within 48 Hours No Sepsis New/Unexplained Change in Mental Status No Sepsis Action Taken by Nursing No Action Required 11/26/21 18:00 Temperature Temperature Source Pulse Rate Pulse Rate [Apical] 105 H Pulse Rhythm Pulse Rhythm [Apical] Regular Respiratory Rate 22 Respiratory Effort / Characteristics Non-Labored Respiratory Depth Respiratory Pattern Blood Pressure Blood Pressure [Right Arm] 150/127 H Blood Pressure Mean Blood Pressure Mean [Right Arm] 134 Pulse Oximetry 96 Oxygen Delivery Method Room Air Sepsis Recent Fever Within 48 Hours Sepsis New/Unexplained Change in Mental Status Sepsis Action Taken by Nursing Laboratory Data Result diagrams: 11/26/21 15:40 11/26/21 15:40 Lab Results 11/26/21 11/26/21 11/26/21 Range/Units 15:40 15:40 16:01 WBC 7.66 (4.8-10.8) K/uL RBC 4.49 (4.2-5.4) M/uL Hgb 10.9 L (12.0-16.0) g/dL Hct 35.6 L (37-47) % MCV 79.3 L (80-100) fL MCH 24.3 L (25-34) pg MCHC 30.6 L (32-36) g/dL RDW Std Deviation 46.7 H (36.4-46.3) fL RDW Coeff of Ana M 16.2 H (11.5-14.5) % Plt Count 339 (130-400) K/uL MPV 9.8 (7.4-10.4) fL Immature Gran % (Auto) 0.1 % Neut % (Auto) 56.4 % Lymph % (Auto) 33.7 % [place] % (Auto) 7.8 % Eos % (Auto) 1.6 % Baso % (Auto) 0.4 % Neut # (Auto) 4.32 (1.4-6.5) K/uL Lymph # (Auto) 2.58 (1.2-3.4) K/uL [place] # (Auto) 0.60 H (0.11-0.59) K/uL Eos # (Auto) 0.12 (0-0.5) K/uL Baso # (Auto) 0.03 (0-0.2) K/uL Immature Gran # (Auto) 0.01 (0.00-0.02) K/uL Sodium 139 (136-145) mmol/L Potassium 3.9 (3.5-5.1) mmol/L Chloride 108 H (98-107) mmol/L Carbon Dioxide 25 (21-32) mmol/L Anion Gap 6 (3-11) BUN 15 (6-23) mg/dl Creatinine 0.97 (0.6-1.2) mg/dl Est Cr Clr Drug Dosing 65.1 ml/min Est GFR ( Amer) 72.0 ml/min Est GFR (Non-Af Amer) 62.2 ml/min BUN/Creatinine Ratio 15.5 (10-20) Glucose 98 (70-99(Fasting)) mg/dl Calcium 8.0 L (8.5-10.1) mg/dl Magnesium 1.9 (1.7-2.4) mg/dl Total Bilirubin 0.3 (0.2-1.0) mg/dl AST 12 L (13-39) U/L ALT 10 (7-52) U/L Alkaline Phosphatase 75 (34-104) U/L Troponin I < 0.03 (0-0.04) ng/ml Total Protein 6.4 (6.0-8.3) gm/dl Albumin 3.6 (3.4-5.0) gm/dl Globulin 2.8 (2.5-4.0) gm/dl Albumin/Globulin Ratio 1.3 (0.9-2) Lipase 18 (11-82) U/L SARS-CoV-2, RNA, NAAT NEGATIVE (NEGATIVE) Administered Medications Discontinued Medications Fentanyl Citrate (Fentanyl Citrate 100 Mcg/2 Ml Vial) 75 mcg IV NOW STA Stop: 11/26/21 14:13 Last Admin: 11/26/21 15:01 Dose: 75 mcg Documented by: [id number] Sodium Chloride (Nss) 500 mls @ 999 mls/hr IV .Q31M STA Stop: 11/26/21 14:40 Last Infusion: 11/26/21 16:29 Dose: 0 mls/hr Documented by: [id number] Admin: 11/26/21 15:31 Dose: 999 mls/hr Documented by: [id number] Promethazine HCl (Phenergan) 12.5 mg in 50.5 mls @ 202 mls/hr IV NOW STA Stop: 11/26/21 14:44 Last Infusion: 11/26/21 16:29 Dose: 0 mls/hr Documented by: [id number] Admin: 11/26/21 15:27 Dose: 202 mls/hr Documented by: [id number] Ondansetron HCl (Ondansetron Inj 2 Mg/Ml 2 Ml Vial) 4 mg IV NOW STA Stop: 11/26/21 17:45 Last Admin: 11/26/21 17:51 Dose: 4 mg Documented by: [id number] Imaging Data Radiologist's Impression: Abdomen/Pelvis CT 11/26/21 17:44 CT abd pelvis wo con CLINICAL HISTORY: abd pain, nausea retching TECHNIQUE: Helical axial images of the abdomen and pelvis were obtained. Automated dose lowering techniques and/or adjustment according to patient size were utilized for this exam. This exam was performed without intravenous contrast. COMPARISON: Comparison is made to CT abdomen pelvis 11/13/2021 FINDINGS: Lower chest: Cardiomegaly is partially visualized. Atelectasis is seen. Liver: Unremarkable. No focal lesions are seen. Gallbladder and biliary tree: Patient is status post cholecystectomy. No intra- or extrahepatic biliary ductal dilation. Pancreas: Unremarkable, no focal lesions. Spleen: Splenule is incidentally noted. Adrenals: Lipid rich adenoma is seen on the right. Kidneys and ureters: Unremarkable. Bladder: Unremarkable. Reproductive organs: Unremarkable. Bowel: Diverticulosis is seen without evidence of diverticulitis. There are a few distended loops of small bowel measuring up to 35 mm in diameter. No transition point is seen. Patient is status post gastric surgery and there is a small hiatal hernia. Lymph nodes Retroperitoneal: Unremarkable. Mesenteric: Unremarkable. Pelvic: Unremarkable. Peritoneum: Normal. Vessels: Unremarkable. Abdominal wall: Unremarkable. Bones: Unremarkable. IMPRESSION: A few loops of distended small bowel are seen which may represent ileus versus very mild partial obstruction. No transition point is seen. ACT 112: Negative or not required by law. Electronically signed by: Naseem Toussaint M.D. 11/26/2021 6:17 PM Discharge Plan Visit Data Chief Complaint: Abdominal Pain Stated Complaint: ABD PAIN ED Provider: Baltazar Servin Discharge Problem: Nausea, Gastroparesis, Abdominal pain Forms Stand Alone Forms: [facility] Prescriptions Prescriptions: No Action dicyclomine 10 mg capsule 10 mg PO BID PRN (Reason: Abdominal Discomfort) RF: 0 pantoprazole 40 mg Tablet,Delayed Release (Dr/Ec) 40 mg PO BID Qty: 60 RF: 0 acetaminophen [Tylenol Extra Strength] 500 mg Tablet 1,000 mg PO Q6H PRN (Reason: Fever Or Pain) Qty: 60 RF: 0 levothyroxine [Synthroid] 88 mcg tablet 88 mcg PO QAM Qty: 30 RF: 0 promethazine 25 mg tablet 25 mg PO Q6H PRN (Reason: Nausea) RF: 0 cyanocobalamin (vitamin B-12) [Vitamin B-12] 1,000 mcg Tablet 1,000 mcg PO DAILY RF: 0 vit-iron fum-folic ac 65 mg iron- 1 mg Tablet 1 tab PO HS RF: 0 Eliquis 5 mg tablet 5 mg PO BID RF: 0 metoprolol succinate [Toprol XL] 100 mg tablet extended release 24 hr 100 mg PO BID Qty: 60 RF: 0 Referrals Referrals: Jaleel Coppola MD [Primary Care Provider] - Discharge Problem: Abdominal pain Qualifiers: Abdominal location: generalized Qualified Code(s): R10.84 - Generalized abdomin al pain
[2021-11-26] MEDS ORDERED: PROMETHAZINE 12.5 MG/50.5 ML BAG IV STA (14:30)
[2021-11-26 15:49] LABS: Basophils # (auto) 0.03 K/uL (0-0.2); Basophils % (auto) 0.4 %; Eosinophils # (auto) 0.12 K/uL (0-0.5); Eosinophils % (auto) 1.6 %; Hematocrit (blood only) 35.6 % (37-47); Hemoglobin 10.9 g/dL (12.0-16.0); Immature Granulocytes # (auto) 0.01 K/uL (0.00-0.02); Immature Granulocytes % (auto) 0.1 %; Lymphocytes # (auto) 2.58 K/uL (1.2-3.4); Lymphocytes % (auto) 33.7 %; Mean Corpuscular Hemoglobin 24.3 pg (25-34); Mean Corpuscular Hgb Conc 30.6 g/dL (32-36); Mean Corpuscular Volume 79.3 fL (80-100); Mean Platelet Volume 9.8 fL (7.4-10.4); Monocytes % (auto) 7.8 %; Neutrophils # (auto) 4.32 K/uL (1.4-6.5); Neutrophils % (auto) 56.4 %; Platelet Count 339 K/uL (130-400); RDW Coefficient of Variation 16.2 % (11.5-14.5); RDW Standard Deviation 46.7 fL (36.4-46.3); Red Blood Count 4.49 M/uL (4.2-5.4); White Blood Count 7.66 K/uL (4.8-10.8)
[2021-11-26 16:13] LABS: Alanine Aminotransferase 10 U/L (7-52); Albumin Globulin Ratio 1.3 (0.9-2); Albumin Level 3.6 gm/dl (3.4-5.0); Alkaline Phosphatase 75 U/L (34-104); Anion Gap 6 (3-11); Aspartate Aminotransferase 12 U/L (13-39); BUN Creatinine Ratio 15.5 (10-20); Bilirubin,Total 0.3 mg/dl (0.2-1.0); Blood Urea Nitrogen 15 mg/dl (6-23); Carbon Dioxide 25 mmol/L (21-32); Chloride 108 mmol/L (98-107); Creatinine Clr Calc Pharmacy 65.1 ml/min; Est GFR (Non-African American) 62.2 ml/min; Globulin 2.8 gm/dl (2.5-4.0); Glucose 98 mg/dl (70-99(Fasting)); Lipase 18 U/L (11-82); Magnesium 1.9 mg/dl (1.7-2.4); Potassium 3.9 mmol/L (3.5-5.1); Sodium 139 mmol/L (136-145); Total Protein 6.4 gm/dl (6.0-8.3)
[2021-11-26 16:14] LABS: Troponin I < 0.03 ng/ml (0-0.04)
[2021-11-26] MEDS ORDERED: ONDANSETRON INJ 2 MG/ML 2 ML VIAL IV STA (17:44)
--- NOTE | 2021-11-26 18:19 | CT Scan Report ---
CT abd pelvis wo con CLINICAL HISTORY: abd pain, nausea retching TECHNIQUE: Helical axial images of the abdomen and pelvis were obtained. Automated dose lowering tech niques and/or adjustment according to patient size were utilized for this exam. This exam was perfor med without intravenous contrast. COMPARISON: Comparison is made to CT abdomen pelvis 11/13/2021 FINDINGS: Lower chest: Cardiomegaly is partially visualized. Atelectasis is seen. Liver: Unremarkable. No focal lesions are seen. Gallbladder and biliary tree: Patient is status post cholecystectomy. No intra- or extrahepatic bilia ry ductal dilation. Pancreas: Unremarkable, no focal lesions. Spleen: Splenule is incidentally noted. Adrenals: Lipid rich adenoma is seen on the right. Kidneys and ureters: Unremarkable. Bladder: Unremarkable. Reproductive organs: Unremarkable. Bowel: Diverticulosis is seen without evidence of diverticulitis. There are a few distended loops of small bowel measuring up to 35 mm in diameter. No transition point is seen. Patient is status post ga stric surgery and there is a small hiatal hernia. Lymph nodes Retroperitoneal: Unremarkable. Mesenteric: Unremarkable. Pelvic: Unremarkable. Peritoneum: Normal. Vessels: Unremarkable. Abdominal wall: Unremarkable. Bones: Unremarkable. IMPRESSION: A few loops of distended small bowel are seen which may represent ileus versus very mild partial obst ruction. No transition point is seen. ACT 112: Negative or not required by law. Electronically signed by: Naseem Toussaint M.D. 11/26/2021 6:17 PM
[2021-11-26] MEDS ORDERED: FAMOTIDINE 20MG IV PUSH 20 MG/5 ML SYR IV STA (19:59)
[2021-11-26] MEDS ORDERED: NITROGLYCERIN SL 0.4 MG/TAB TAB SL PRN (21:09)
[2021-11-26] MEDS ORDERED: ACETAMINOPHEN 325 MG TAB PO PRN (21:09)
[2021-11-26] MEDS ORDERED: HYDROmorphone INJ 0.5 MG/0.5 ML SYR IV PRN (21:09)
[2021-11-26] MEDS ORDERED: DICYCLOMINE HCL 10 MG CAP PO PRN (21:09)
[2021-11-26] MEDS ORDERED: METOPROLOL TARTRATE 1 MG/ML VIAL IV PRN (21:09)
[2021-11-26] MEDS: D5W AND 1/2NSS 1,000 ML IV SCH (22:03)
[2021-11-26] MEDS: PRENATAL VITAMIN 1 TAB PO SCH (22:04)
[2021-11-26] MEDS: METOPROLOL SUCC 50MG EXT REL TAB PO SCH (22:04)
[2021-11-26] MEDS: APIXABAN 5 MG TABLET PO SCH (22:04)
[2021-11-26] MEDS: PANTOprazole 40 MG TAB PO SCH (22:04)
[2021-11-26] MEDS: PROMETHAZINE HCL 12.5 MG in SODIUM CHLORIDE 0.9% 50 ML IV PRN (22:26)
[2021-11-27] MEDS ORDERED: LORazepam 2 MG/1 ML VIAL IV STA (00:33)
--- NOTE | 2021-11-27 00:35 | History and Physical Report ---
DATE OF ADMISSION: 11/26/2021. CHIEF COMPLAINT: Abdominal pain. HISTORY OF PRESENT ILLNESS: This is a 61-year-old female with past medical history significant for atrial fibrillation, tachybrady syndrome, status post pacemaker, history of hiatal hernia, status post surgery since then having gastroparesis as per the patient, history of prolonged QT, history of COPD, chronic kidney disease stage III, history of anemia, history of mitral regurgitation, hypothyroidism, status post right subclavian port, ongoing tobacco abuse, history of pernicious anemia, iron deficiency anemia, history of pemphigus, generalized anxiety disorder, presents with abdominal pain and dry heaves. The patient has had multiple admissions for gastroparesis. The patient says since last night she is having abdominal pain, severe in nature associated with dry heaves. She moved a normal bowel movement today in the morning. She is feeling short of breath since she was diagnosed with COVID. She had 2 times COVID, last one in August of last year. She is afebrile. Denies any chest pain, no headache, no blurred visions, no earache, no runny nose, no sore throat. No blood in stools or black stools. Normal bladder movements. Ambulating okay. Currently hemodynamically stable. Heart rate is slightly elevated. Last admission, she was recently in the hospital with gastroparesis flare,at that time, she was in rapid AFib, which was not improving, she was started on amiodarone and also status post cardioversion, which was unsuccessful and AV junction ablation was recommended At the time of discharge, amiodarone discontinued and her metoprolol dose was increased. ALLERGIES: ADHESIVES, CAPSAICIN, AMOXICILLIN, SCOPOLAMINE, NSAIDS, ROFECOXIB. PAST MEDICAL HISTORY: As mentioned above. PAST SURGICAL HISTORY: Biopsy of breast, colonoscopy, EGDs, EGD with endoscopic dilatation, EGDs with biopsy, exploratory laparotomy insertion of A-port, laparoscopic cholecystectomy, paraesophageal hernia repair, laparoscopic pyloroplasty, removal of the left ovary, laparoscopic partial gastrectomy, sigmoidoscopy, tonsillectomy, adenoidectomy, upper GI endoscopy with stent placement. FAMILY HISTORY: Significant for brother has allergies, mother has arthritis, diabetes, heart disorder, daughter has migraines; father has aneurysm, thyroid cancer. SOCIAL HISTORY: , currently seems to be smoking 1 pack a day for the last 20 years. Alcohol socially. No drug use. MEDICATIONS: The patient is on Tylenol Extra Strength 1000 mg p.o. q. 6 hours p.r.n., vitamin B12 1000 mcg p.o. daily, dicyclomine 10 mg p.o. b.i.d. p.r.n., Eliquis 5 mg p.o. b.i.d., levothyroxine 88 mcg p.o. daily, metoprolol succinate 100 mg p.o. b.i.d., Protonix 40 mg p.o. b.i.d., vitamins 1 tablet at bedtime, promethazine 25 mg p.o. q. 6 hours p.r.n. REVIEW OF SYSTEMS: As per HPI. Rest of review of systems is negative. PHYSICAL EXAMINATION: GENERAL: The patient is of moderate build, not in acute distress. VITAL SIGNS: Temperature 36.8, pulse 99, respiratory rate 17, blood pressure 142/110, oxygen 94% on room air. HEENT: Pupils equal, round and reactive to light. Oral mucosa moist. NECK: No JVD, no neck masses. CARDIOVASCULAR: S1 and S2 heard. Regular rate and rhythm. No murmur, no gallop. RESPIRATORY SYSTEM: Normal AP diameter. No accessory muscle use. No wheezing, no crackles. ABDOMEN: Soft, bowel sounds present. Diffuse discomfort. Mild guarding, no rigidity, no distention. CENTRAL NERVOUS SYSTEM: Cranial nerves II-XII grossly intact, nonfocal. EXTREMITIES: No edema, no erythema. LABORATORY DATA: WBC 7.6, hemoglobin 10..9, hematocrit 35.6, platelets 339. Sodium 139, potassium 3.9, chloride 108, bicarbonate 25, BUN 15, creatinine 0.9, serum glucose 98, calcium 8.8, magnesium 1.9, total bilirubin 0.3, AST 12, ALT 13, alkaline phosphatase 75, troponin I less than 0.03, lipase 18. SARS-CoV-2 RNA rapid test negative. IMAGING DATA: CT abdomen and pelvis without contrast, a few loops of dilated small bowel are seen, which may represent ileus versus mild partial obstruction, no transition point is seen. EKG: AFib at a rate of 100, no acute ST changes seen.QTC 505. ASSESSMENT AND PLAN: This is a 61-year-old female who presents with recurrent gastroparesis flare. 1. Gastroparesis flare, recurrent multiple admissions: . Has QT prolongation. Placed on IV Phenergan p.r.n. n.p.o., IV fluids, IV pain meds p.r.n. Monitor in the hospital. The patient also has possible ileus versus partial small-bowel obstruction on the CAT scan, but she had a bowel movement in the morning, has bowel sounds on exam. We will consult GI for further recommendations. 2. History of atrial fibrillation, heart rate sometimes going more than 100: She will continue home medication of metoprolol succinate and will place on IV Lopressor prn. Continue Eliquis. The patient was planned for AV ablation but not followed with cardiology yet. 3. Hypothyroidism: Continue Synthroid. 4. Gastroesophageal reflux disease: Continue Protonix, IV Pepcid. 5. Prolonged QT interval: Avoid QT prolonging medication. Follow up EKG in the a.m. 6. History of chronic obstructive pulmonary disease: Continue her home medication. 7. Tobacco abuse: Needs counseling. 8. History of iron deficiency and pernicious anemia. Hemoglobin is 10.9. We will follow the labs. 9. Deep venous thrombosis prophylaxis: On Eliquis. DISPOSITION: Closely monitor in the med tele. PT/OT prior to discharge. Social service to help with discharge planning. Job ID: [id number] [facility]
[2021-11-27 02:54] LABS: Appearance Urine Clear (Clear); Bacteria Urine Automated Negative (Negative); Bilirubin Urine Negative (Negative); Blood Urine Negative (Negative); Color Urine Yellow; Epithelial Cell Urine Auto >30 /lpf (0-5); Glucose Urine UA Negative (Negative); Ketones Urine Negative (Negative); Leukocyte Esterase Urine 1+ (Negative); Nitrite Urine Negative (Negative); Protein Urine Negative (Negative); RBC Urine Automated 0-4 /hpf (0-4); Specific Gravity Urine 1.016 (1.000-1.030); Urobilinogen Urine Negative (Negative)
[2021-11-27] MEDS: D5W AND 1/2NSS 1,000 ML IV SCH ×3 (06:01→21:52)
[2021-11-27] MEDS: LEVOTHYROXINE SODIUM 88 MCG TABLET PO SCH (06:01)
[2021-11-27] MEDS: PROMETHAZINE HCL 12.5 MG in SODIUM CHLORIDE 0.9% 50 ML IV PRN ×3 (06:01→21:35)
--- NOTE | 2021-11-27 06:49 | Electrocardiogram Report ---
Test Reason : Blood Pressure : / mmHG Vent. Rate : 100 BPM Atrial Rate : 131 BPM P-R Int : 000 ms QRS Dur : 108 ms QT Int : 392 ms P-R-T Axes : 000 -17 -20 degrees QTc Int : 505 ms Poor data quality, interpretation may be adversely affected Atrial fibrillation Minimal voltage criteria for LVH, may be normal variant Nonspecific T wave abnormality Incomplete right bundle branch block Prolonged QT Abnormal ECG When compared with ECG of 18-NOV-2021 09:20, No significant change Confirmed by Chinmay Russo ([id number]) on 11/27/2021 6:49:51 AM Referred By: REFERRED SELF Confirmed By:Chinmay Russo
[2021-11-27 07:14] LABS: Basophils # (auto) 0.03 K/uL (0-0.2); Basophils % (auto) 0.6 %; Eosinophils # (auto) 0.13 K/uL (0-0.5); Eosinophils % (auto) 2.5 %; Hematocrit (blood only) 33.4 % (37-47); Hemoglobin 10.3 g/dL (12.0-16.0); Immature Granulocytes # (auto) 0.01 K/uL (0.00-0.02); Immature Granulocytes % (auto) 0.2 %; Lymphocytes # (auto) 1.72 K/uL (1.2-3.4); Lymphocytes % (auto) 33.7 %; Mean Corpuscular Hemoglobin 24.6 pg (25-34); Mean Corpuscular Hgb Conc 30.8 g/dL (32-36); Mean Corpuscular Volume 79.7 fL (80-100); Mean Platelet Volume 9.8 fL (7.4-10.4); Monocytes # (auto) 0.38 K/uL (0.11-0.59); Monocytes % (auto) 7.4 %; Neutrophils # (auto) 2.84 K/uL (1.4-6.5); Neutrophils % (auto) 55.6 %; Platelet Count 317 K/uL (130-400); RDW Coefficient of Variation 16.1 % (11.5-14.5); RDW Standard Deviation 47.2 fL (36.4-46.3); Red Blood Count 4.19 M/uL (4.2-5.4); White Blood Count 5.11 K/uL (4.8-10.8)
[2021-11-27 07:33] LABS: BUN Creatinine Ratio 11.8 (10-20); Calcium 7.8 mg/dl (8.5-10.1); Creatinine Clr Calc Pharmacy 62.4 ml/min; Est GFR (African American) 67.8 ml/min; Est GFR (Non-African American) 58.5 ml/min; Magnesium 1.9 mg/dl (1.7-2.4)
--- NOTE | 2021-11-27 08:29 | Gastrointestinal Consultation ---
Date of Consultation November 27, 2021 Assessment & Plan (1) Abdominal pain: (2) Prolonged QT interval: (3) Gastroparesis: 61 yo female s/p paraesophageal hernia repair 8 years ago with gastroparesis since that time. She has a history of cardiac arrhythmia and QTc prolongation making use of Reglan impossible at this point. Admitted with flare of abd pain and dry heaves/gastroparesis. Having BMs without s/s of ileus or PSBO (CT reviewed). Better this AM. Would let her have clear liquids today and slowly advance to gastroparesis diet as tolerated. Continue with phenergan and Zofran. Can consider the use of Emend if needed. History of Present Illness Reason for Consultation: gastroparesis Attending Physician: Rosi Malhotra MD History of Present Illness 61 year old female w/ history of paraesophageal hernia s/p partial sleeve gastrectomy 8 years ago, gastroparesis since the time of her hernia repair, and IBS. Who has been dx'd with frequent flares of gastroparesis previously receiving monthly Emend IV up till 11/09/2019. Recently admitted 11/15-11/18 during which she had AF with RVR and failed cadioversion. She is being evaluated for AV ablation but this has not occurred yet. She also has a history of tachy/andre syndrome and PPM. Has had problems with prolonged QTC which prompted cessation of the Reglan she had been on for her gastroparesis. Maintained at home on phenergan. Tells me she does not take zofran at home. She presented to the ER last evening with complaints of abd pain and dry heaves. Did OK at home for a few days but yesterday felt flare of her gastroparesis happening and came ot the ER. Received IV phenergan and zofran in the ER. Resting comfortably this AM. Denies any abd pain. Mild nausea but not dry heaving this AM. Thirsty. Having BMs. Last was yesterday. CT reviewed. Allergies Allergy/AdvReac Type Severity Reaction Status Date / Time adhesive Allergy Mild POWERS SKIN Verified 11/26/21 14:57 capsaicin Allergy Mild ITCHINESS Verified 11/26/21 14:57 amoxicillin AdvReac Intermediate yeast Verified 11/26/21 14:57 infection scopolamine AdvReac Intermediate rash from Verified 11/26/21 14:57 patch NSAIDS (Non-Steroidal AdvReac Mild indegestion Verified 11/26/21 14:57 Anti-Inflamma rofecoxib AdvReac Mild indigestion Verified 11/26/21 14:57 Home Medications Medication Instructions Recorded Confirmed Type pantoprazole 40 mg tablet,delayed 40 mg PO BID #60 tab 12/10/19 11/26/21 Rx release acetaminophen 500 mg tablet 1,000 mg PO Q6H PRN #60 tab 12/16/19 11/26/21 Rx (Tylenol Extra Strength) levothyroxine 88 mcg tablet 88 mcg PO QAM #30 tab 12/16/19 11/26/21 Rx (Synthroid) dicyclomine 10 mg capsule 10 mg PO BID PRN 12/17/19 11/26/21 History promethazine 25 mg tablet 25 mg PO Q6H PRN 09/30/20 11/26/21 History apixaban 5 mg tablet (Eliquis) 5 mg PO BID 10/02/21 11/26/21 History cyanocobalamin (vitamin B-12) 1,000 mcg PO DAILY 10/02/21 11/26/21 History 1,000 mcg tablet (Vitamin B-12) vitamins-iron fumarate 65 1 tab PO HS 10/02/21 11/26/21 History mg iron-folic acid 1 mg tablet metoprolol succinate 100 mg 100 mg PO BID #60 tab 11/18/21 11/26/21 Rx tablet,extended release 24 hr (Toprol XL) Patient History Medical History Acidosis, lactic Anxiety Asthma COPD (chronic obstructive pulmonary disease) COVID-19 COVID-19 Depression Diverticulosis Frequent PVCs Gastroparesis GERD (gastroesophageal reflux disease) H/O irritable bowel syndrome HTN (hypertension) Hypokalemia Hypomagnesemia Hypomagnesemia Hypophosphatemia Hypothyroidism Intractable nausea and vomiting Mitral regurgitation "moderate per echo 09/21/15" Neuropathy Paroxysmal A-fib Pemphigus vulgaris Prolonged QT interval Tobacco abuse Surgical History History of bladder surgery History of laparoscopic partial gastrectomy History of pyloroplasty History of total hysterectomy Hx of cholecystectomy Hx of tonsillectomy S/P hysterectomy S/P laparoscopic sleeve gastrectomy S/P partial gastrectomy S/P repair of paraesophageal hernia "resulted in volvulus, required abdominal exploration" S/P tonsillectomy and adenoidectomy Family History Mother DM type 2 (diabetes mellitus, type 2) Coronary heart disease Social History Smoking Status: Current every day smoker Tobacco Type: Cigarettes Cigarettes Per Day: 20; Second Hand Exposure: Yes; Do You Dip or Chew Tobacco: No; Tobacco Cessation Education Requested by Patient: No Hx Alcohol Use: Yes Alcohol type: beer Alcohol Intake Frequency Comment: 3-4 beers/week Hx Substance Use: No Preferred Language: Turkmen Communication Ability: Effective Publishing Specialist Required: No Beliefs That Will Affect Care: None marital status: Single Current Living Situation: Family Current Living Situation Comment: Lives with daughter and her family in mobile home How many Children do You have: 2 Other Information That Helps Us Care for You: No Feels Safe at Home: Yes Safety Concerns: Feels Safe At This Time Assistive Devices: None Review of Systems Review of Systems: All systems reviewed & are unremarkable except as noted in HPI & below Physical Exam Constitutional: WD/WN, vitals as above Respiratory: normal respiratory effort, lungs clear to auscultation Cardiovascular: RRR, no murmur, no edema Chest (Breasts): Additional Comments: port in right chest wall Gastrointestinal (Abdomen): normal bowel sounds, soft, nontender, no hepatosplenomegaly Results & Data ([facility]) Vital Signs (Past 12 Hours) Vital Signs Temp Pulse Pulse Pulse Resp BP Pulse Ox 11/27/21 07:38 36.4 C L 97 H 18 123/89 96 11/27/21 07:27 92 H 11/26/21 23:05 36.9 C 104 H 18 128/82 95 11/26/21 22:20 96 H 11/26/21 21:31 36.5 C 95 H 20 116/86 98 (1) Abdominal pain Abdominal location: generalized Qualified Code(s): R10.84 - Generalized abdominal pain
[2021-11-27] MEDS: FAMOTIDINE 20 MG in SYRINGE 3 ML IV SCH ×2 (08:43→20:40)
[2021-11-27] MEDS: PANTOprazole 40 MG TAB PO SCH ×2 (08:44→20:42)
[2021-11-27] MEDS: CYANOCOBALAMIN (B-12) 500 MCG TABLET PO SCH (08:44)
[2021-11-27] MEDS: APIXABAN 5 MG TABLET PO SCH ×2 (08:44→20:41)
[2021-11-27] MEDS: METOPROLOL SUCC 50MG EXT REL TAB PO SCH ×2 (08:44→20:42)
--- NOTE | 2021-11-27 12:11 | Hospitalist Progress Note ---
Date of Service November 27, 2021 Assessment & Plan (1) Gastroparesis: Plan: Has history of gastroparesis with recurrent admissions secondary to intractable nausea, vomiting Another episode of abdominal pain, nausea, vomiting and diarrhea Has been getting symptomatic medications including Bentyl and Phenergan Appreciate GI input and recommendation Clinically a little better this morning (2) Abdominal pain: (3) Nausea & vomiting: (4) Diarrhea: Plan: Has been having diarrhea We will get a stool for C. difficile and stool culture (5) Paroxysmal A-fib: Plan: Heart rate is controlled at 87 Denies any cardiac symptoms (6) Prolonged QT interval: Plan: Will avoid any QT prolongation medications including Zofran (7) HTN (hypertension): Plan: Blood pressure is controlled (8) COPD (chronic obstructive pulmonary disease): Plan: No acute disease state Plan: DVT prophylaxis Has been on Eliquis Admission and Anticipated Discharge Date Admission Date: November 26, 2021 Subjective 11/27/2021 The patient was seen and examined in medical telemetry unit She has been complaining of abdominal pain with nausea and vomiting with history of chronic gastroparesis Still having diarrhea Denies any fever and no chills Review of Systems Review of Systems: All systems reviewed and are unremarkable except as noted below Gastrointestinal: Abdominal pain with nausea, vomiting and diarrhea. No distention Physical Exam Physical Exam: Lying in bed comfortably Constitutional: well developed, well nourished and + obese; not ill appearing Eyes: PERRL, conjunctivae normal, anicteric sclerae ENMT: external ear and nose normal, oropharynx normal Neck: trachea midline, no thyromegaly Respiratory: no respiratory distress Auscultation: lungs clear to auscultation bilaterally Cardiovascular: Rate/Rhythm: regular rate and regular rhythm; not tachycardic Heart Sounds: normal S1; no murmur Extremities: no edema Gastrointestinal (Abdomen): Inspection/Auscultation: normal bowel sounds; abdomen not distended Percussion/Palpation: + abdomen tender (Mildly tender in the epigastrium) and abdomen soft Musculoskeletal: Head/Neck/Chest: normocephalic and neck supple Neurologic: normal touch/pain/proprioception Psychiatric: A+Ox3, euthymic affect Lymphatic: no cervical or axillary lymphadenopathy Results & Data Results & Data ([facility]) Vital Signs (Past 12 Hours) Vital Signs Temp Pulse Pulse Resp BP Pulse Ox 11/27/21 11:31 36.7 C 87 16 113/84 95 11/27/21 07:38 36.4 C L 97 H 18 123/89 96 11/27/21 07:27 92 H Laboratory Results Short CBC 11/26/21 11/27/21 Range/Units 15:40 06:53 WBC 7.66 5.11 (4.8-10.8) K/uL Hgb 10.9 L 10.3 L (12.0-16.0) g/dL Hct 35.6 L 33.4 L (37-47) % Plt Count 339 317 (130-400) K/uL BMP 11/26/21 11/27/21 15:40 06:53 Sodium 139 138 Potassium 3.9 4.0 Chloride 108 H 109 H Carbon Dioxide 25 25 BUN 15 12 Creatinine 0.97 1.02 Glucose 98 112 H Calcium 8.0 L 7.8 L Cardiac Enzymes 11/26/21 Range/Units 15:40 Troponin I < 0.03 (0-0.04) ng/ml Liver Function 11/26/21 Range/Units 15:40 Total Bilirubin 0.3 (0.2-1.0) mg/dl AST 12 L (13-39) U/L ALT 10 (7-52) U/L Alkaline Phosphatase 75 (34-104) U/L Albumin 3.6 (3.4-5.0) gm/dl Urine 11/27/21 Range/Units 02:40 Urine Color Yellow Urine Appearance Clear (Clear) Urine pH 5.0 (4.5-7.5) Ur Specific [place] 1.016 (1.000-1.030) Urine Protein Negative (Negative) Urine Glucose (UA) Negative (Negative) Medications Administered Current Inpatient Medications Acetaminophen (Acetaminophen 325 Mg Tab) 650 mg PO Q4H PRN PRN Reason: Pain or Fever Stop: 12/26/21 21:08 Apixaban (Apixaban 5 Mg Tablet) 5 mg PO BID RUSSELL Stop: 12/26/21 21:08 Last Admin: 11/27/21 08:44 Dose: 5 mg Documented by: Cyanocobalamin (Cyanocobalamin (B-12) 500 Mcg Tablet) 1,000 mcg PO DAILY RUSSELL Stop: 12/27/21 08:59 Last Admin: 11/27/21 08:44 Dose: 1,000 mcg Documented by: Dicyclomine HCl (Dicyclomine Hcl 10 Mg Cap) 10 mg PO QID PRN PRN Reason: Abdominal Discomfort Stop: 12/26/21 21:08 Hydromorphone HCl (Hydromorphone Inj 0.5 Mg/0.5 Ml Syr) 0.5 mg IV Q3H PRN PRN Reason: Pain Stop: 12/10/21 21:08 Dextrose/Sodium Chloride (D5w And 1/2nss) 1,000 mls @ 125 mls/hr IV .Q8H RUSSELL Stop: 12/26/21 21:08 Last Admin: 11/27/21 06:01 Dose: 125 mls/hr Documented by: Famotidine 20 mg/ Syringe 5 mls @ 2.5 mls/min IV BID [facility] Stop: 12/27/21 08:59 Last Admin: 11/27/21 08:43 Dose: 2.5 mls/min Documented by: Promethazine HCl 12.5 mg/ (Sodium Chloride) 50.5 mls @ 202 mls/hr IV Q4H PRN PRN Reason: Nausea And Vomiting Stop: 12/26/21 21:08 Last Infusion: 11/27/21 11:10 Dose: Infused Documented by: Levothyroxine Sodium (Levothyroxine Sodium 88 Mcg Tablet) 88 mcg PO DAILYBB [facility] Stop: 12/27/21 06:29 Last Admin: 11/27/21 06:01 Dose: 88 mcg Documented by: Metoprolol Succinate (Metoprolol Succ 50mg Ext Rel Tab) 100 mg PO BID [facility] Stop: 12/26/21 21:08 Last Admin: 11/27/21 08:44 Dose: 100 mg Documented by: Metoprolol Tartrate (Metoprolol Tartrate 1 Mg/Ml Vial) 5 mg IV Q6 PRN; Protocol PRN Reason: Tachycardia Stop: 12/26/21 21:08 Nitroglycerin (Nitroglycerin Sl 0.4 Mg/Tab Tab) 0.4 mg SL UD PRN PRN Reason: Chest Pain Stop: 12/26/21 21:08 Pantoprazole Sodium (Pantoprazole 40 Mg Tab) 40 mg PO BID [facility] Stop: 12/26/21 21:08 Last Admin: 11/27/21 08:44 Dose: 40 mg Documented by: Prenat Multivit/[place]/Iron/Folic Ac ( Vitamin 1 Tab) 1 tab PO HS RUSSELL Stop: 12/26/21 21:08 Last Admin: 11/26/21 22:04 Dose: 1 tab Documented by: (1) Abdominal pain Abdominal location: generalized Qualified Code(s): R10.84 - Generalized abd ominal pain (2) Nausea & vomiting Vomiting type: unspecified Qualified Code(s): R11.2 - Nausea with vomiting, unspecified
[2021-11-27 19:37] LABS: Adenovirus F 40/41 PCR Not Detected (NotDetected); Astrovirus PCR Not Detected (NotDetected); Campylobacter PCR Not Detected (NotDetected); Clostridium diff Toxin A/B PCR Not Detected (NotDetected); Cryptosporidium PCR Not Detected (NotDetected); Cyclospora cayetanensis PCR Not Detected (NotDetected); Entamoeba histolytica PCR Not Detected (NotDetected); Enteroaggregative E.coli(EAEC) Not Detected (NotDetected); Enteropathogenic E.coli (EPEC) Not Detected (NotDetected); Enterotoxigenic E.coli (ETEC) Not Detected (NotDetected); Giardia lamblia PCR Not Detected (NotDetected); Norovirus GI/GII PCR Not Detected (NotDetected); Plesiomonas shigelloides PCR Not Detected (NotDetected); Rotavirus A PCR Not Detected (NotDetected); Salmonella PCR Not Detected (NotDetected); Sapovirus PCR Not Detected (NotDetected); Shiga-like Toxin E.coli (STEC) Not Detected (NotDetected); Shigella/Enteroinvasive E.coli Not Detected (NotDetected); Vibrio cholerae PCR Not Detected (NotDetected); Vibrio species PCR Not Detected (NotDetected); Yersinia enterocolitica PCR Not Detected (NotDetected)
[2021-11-27] MEDS: PRENATAL VITAMIN 1 TAB PO SCH (20:40)
[2021-11-27] MEDS ORDERED: HEPARIN 100 UNIT/ML 5ML FLUSH FLUSH PRN (22:02)
[2021-11-27] MEDS ORDERED: Nursing to Pharmacy Communication SCH (22:15)
[2021-11-27] MEDS: DICYCLOMINE HCL 10 MG CAP PO PRN (23:36)
[2021-11-28] MEDS ORDERED: oxyCODONE HCL IR 5 MG TAB (IMMEDIATE RELEASE) PO PRN (01:19)
[2021-11-28] MEDS: PROMETHAZINE HCL 12.5 MG in SODIUM CHLORIDE 0.9% 50 ML IV PRN ×2 (01:20→13:00)
[2021-11-28] MEDS ORDERED: oxyCODONE HCL IR 5 MG TAB (IMMEDIATE RELEASE) ONE (01:28)
[2021-11-28] MEDS ORDERED: FOSAPREPITANT DIMEGLUMINE 115 MG in 0.9 % SODIUM CHLORIDE 111.1667 ML IV ONE (04:30)
[2021-11-28] MEDS: D5W AND 1/2NSS 1,000 ML IV SCH ×3 (05:55→22:08)
[2021-11-28] MEDS: LEVOTHYROXINE SODIUM 88 MCG TABLET PO SCH (06:16)
--- NOTE | 2021-11-28 06:57 | Electrocardiogram Report ---
Test Reason : Blood Pressure : / mmHG Vent. Rate : 093 BPM Atrial Rate : 125 BPM P-R Int : 000 ms QRS Dur : 112 ms QT Int : 392 ms P-R-T Axes : 000 -13 -30 degrees QTc Int : 487 ms Poor data quality, interpretation may be adversely affected Atrial fibrillation Incomplete right bundle branch block Moderate voltage criteria for LVH, may be normal variant Nonspecific T wave abnormality Prolonged QT Abnormal ECG When compared with ECG of 26-NOV-2021 14:27, No significant change Confirmed by Chinmay Russo ([id number]) on 11/28/2021 6:57:10 AM Referred By: REFERRED SELF Confirmed By:Chinmay Russo
[2021-11-28] MEDS: PANTOprazole 40 MG TAB PO SCH ×2 (07:27→20:53)
[2021-11-28] MEDS: METOPROLOL SUCC 50MG EXT REL TAB PO SCH ×2 (07:27→20:53)
[2021-11-28] MEDS: APIXABAN 5 MG TABLET PO SCH ×2 (07:27→20:53)
[2021-11-28] MEDS: CYANOCOBALAMIN (B-12) 500 MCG TABLET PO SCH (07:27)
[2021-11-28] MEDS: FAMOTIDINE 20 MG in SYRINGE 3 ML IV SCH ×2 (07:32→20:51)
[2021-11-28 08:14] LABS: Basophils # (auto) 0.03 K/uL (0-0.2); Basophils % (auto) 0.5 %; Eosinophils # (auto) 0.18 K/uL (0-0.5); Eosinophils % (auto) 2.8 %; Hematocrit (blood only) 35.5 % (37-47); Hemoglobin 10.6 g/dL (12.0-16.0); Lymphocytes # (auto) 2.47 K/uL (1.2-3.4); Lymphocytes % (auto) 38.9 %; Mean Corpuscular Hemoglobin 24.1 pg (25-34); Mean Corpuscular Hgb Conc 29.9 g/dL (32-36); Mean Corpuscular Volume 80.7 fL (80-100); Mean Platelet Volume 9.5 fL (7.4-10.4); Monocytes # (auto) 0.38 K/uL (0.11-0.59); Neutrophils # (auto) 3.29 K/uL (1.4-6.5); Neutrophils % (auto) 51.8 %; Platelet Count 325 K/uL (130-400); RDW Coefficient of Variation 16.1 % (11.5-14.5); RDW Standard Deviation 47.7 fL (36.4-46.3); White Blood Count 6.35 K/uL (4.8-10.8)
[2021-11-28 08:33] LABS: BUN Creatinine Ratio 7.1 (10-20); Calcium 7.9 mg/dl (8.5-10.1); Creatinine Clr Calc Pharmacy 64.6 ml/min; Est GFR (African American) 70.3 ml/min; Est GFR (Non-African American) 60.6 ml/min; Potassium 3.7 mmol/L (3.5-5.1)
--- NOTE | 2021-11-28 14:10 | Hospitalist Progress Note ---
Date of Service November 28, 2021 Assessment & Plan (1) Gastroparesis: Plan: Has history of gastroparesis with recurrent admissions secondary to intractable nausea, vomiting Another episode of abdominal pain, nausea, vomiting and diarrhea Has been getting symptomatic medications including Bentyl and Phenergan Appreciate GI input and recommendation Not any better this morning and still has abdominal pain with nausea We will continue current management (2) Abdominal pain: Plan: Pain seems to be a little better today (3) Nausea & vomiting: Plan: Continues to have nausea (4) Diarrhea: Plan: Has been having diarrhea We will get a stool for C. difficile and stool culture-have been negative (5) Paroxysmal A-fib: Plan: Heart rate is controlled at 87 Denies any cardiac symptoms (6) Prolonged QT interval: Plan: Will avoid any QT prolongation medications including Zofran (7) HTN (hypertension): Plan: Blood pressure is controlled (8) COPD (chronic obstructive pulmonary disease): Plan: No acute disease state Plan: DVT prophylaxis Has been on Eliquis Admission and Anticipated Discharge Date Admission Date: November 28, 2021 Subjective 11/27/2021 The patient was seen and examined in medical telemetry unit She has been complaining of abdominal pain with nausea and vomiting with history of chronic gastroparesis Still having diarrhea Denies any fever and no chills 11/28/2021 The patient was seen and examined in medical telemetry unit She has been complaining of some nausea this morning with some abdominal pain She is not yet ready to be discharged Review of Systems Review of Systems: All systems reviewed and are unremarkable except as noted below Gastrointestinal: Abdominal pain with nausea, vomiting and diarrhea. No distention Physical Exam Physical Exam: Lying in bed comfortably Constitutional: well developed, well nourished and + obese; not ill appearing Eyes: PERRL, conjunctivae normal, anicteric sclerae ENMT: external ear and nose normal, oropharynx normal Neck: trachea midline, no thyromegaly Respiratory: no respiratory distress Auscultation: lungs clear to auscultation bilaterally Cardiovascular: Rate/Rhythm: regular rate and regular rhythm; not tachycardic Heart Sounds: normal S1; no murmur Extremities: no edema Gastrointestinal (Abdomen): Inspection/Auscultation: normal bowel sounds; abdomen not distended Percussion/Palpation: + abdomen tender (Mildly tender in the epigastrium) and abdomen soft Musculoskeletal: Head/Neck/Chest: normocephalic and neck supple Neurologic: normal touch/pain/proprioception Psychiatric: A+Ox3, euthymic affect Lymphatic: no cervical or axillary lymphadenopathy Results & Data Results & Data ([facility]) Vital Signs (Past 12 Hours) Vital Signs Temp Pulse Pulse Resp BP Pulse Ox 11/28/21 11:01 36.8 C 82 18 128/94 96 11/28/21 07:14 36.9 C 86 18 118/81 94 11/28/21 07:00 91 H 11/28/21 04:00 36.9 C 80 18 115/88 94 11/28/21 02:09 100 H Laboratory Results Short CBC 11/28/21 Range/Units 07:56 WBC 6.35 (4.8-10.8) K/uL Hgb 10.6 L (12.0-16.0) g/dL Hct 35.5 L (37-47) % Plt Count 325 (130-400) K/uL BMP 11/28/21 07:56 Sodium 141 Potassium 3.7 Chloride 110 H Carbon Dioxide 26 BUN 7 Creatinine 0.99 Glucose 107 H Calcium 7.9 L Medications Administered Current Inpatient Medications Acetaminophen (Acetaminophen 325 Mg Tab) 650 mg PO Q4H PRN PRN Reason: Pain or Fever Stop: 12/26/21 21:08 Apixaban (Apixaban 5 Mg Tablet) 5 mg PO BID RUSSELL Stop: 12/26/21 21:08 Last Admin: 11/28/21 07:27 Dose: 5 mg Documented by: Cyanocobalamin (Cyanocobalamin (B-12) 500 Mcg Tablet) 1,000 mcg PO DAILY RUSSELL Stop: 12/27/21 08:59 Last Admin: 11/28/21 07:27 Dose: 1,000 mcg Documented by: Dicyclomine HCl (Dicyclomine Hcl 10 Mg Cap) 10 mg PO QID PRN PRN Reason: Abdominal Discomfort Stop: 12/26/21 21:08 Last Admin: 11/27/21 23:36 Dose: 10 mg Documented by: Heparin Sodium (Porcine) (Heparin 100 Unit/Ml 5ml Flush) 5 ml FLUSH PRN PRN PRN Reason: Flush Stop: 12/27/21 22:01 Hydromorphone HCl (Hydromorphone Inj 0.5 Mg/0.5 Ml Syr) 0.5 mg IV Q3H PRN PRN Reason: Pain Stop: 12/10/21 21:08 Dextrose/Sodium Chloride (D5w And 1/2nss) 1,000 mls @ 125 mls/hr IV .Q8H RUSSELL Stop: 12/26/21 21:08 Last Admin: 11/28/21 05:55 Dose: 125 mls/hr Documented by: Famotidine 20 mg/ Syringe 5 mls @ 2.5 mls/min IV BID RUSSELL Stop: 12/27/21 08:59 Last Admin: 11/28/21 07:32 Dose: 2.5 mls/min Documented by: Promethazine HCl 12.5 mg/ (Sodium Chloride) 50.5 mls @ 202 mls/hr IV Q4H PRN PRN Reason: Nausea And Vomiting Stop: 12/26/21 21:08 Last Infusion: 11/28/21 01:35 Dose: Infused Documented by: Levothyroxine Sodium (Levothyroxine Sodium 88 Mcg Tablet) 88 mcg PO DAILYBB [facility] Stop: 12/27/21 06:29 Last Admin: 11/28/21 06:16 Dose: 88 mcg Documented by: Metoprolol Succinate (Metoprolol Succ 50mg Ext Rel Tab) 100 mg PO BID [facility] Stop: 12/26/21 21:08 Last Admin: 11/28/21 07:27 Dose: 100 mg Documented by: Metoprolol Tartrate (Metoprolol Tartrate 1 Mg/Ml Vial) 5 mg IV Q6 PRN; Protocol PRN Reason: Tachycardia Stop: 12/26/21 21:08 Nitroglycerin (Nitroglycerin Sl 0.4 Mg/Tab Tab) 0.4 mg SL UD PRN PRN Reason: Chest Pain Stop: 12/26/21 21:08 Oxycodone HCl (Oxycodone Hcl Ir 5 Mg Tab (Immediate Release)) 5 mg PO Q4H PRN PRN Reason: Pain Stop: 12/12/21 01:18 Pantoprazole Sodium (Pantoprazole 40 Mg Tab) 40 mg PO BID [facility] Stop: 12/26/21 21:08 Last Admin: 11/28/21 07:27 Dose: 40 mg Documented by: Prenat Multivit/Flame Brazing 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
[2021-11-28] MEDS: PRENATAL VITAMIN 1 TAB PO SCH (20:52)
[2021-11-29] MEDS: PROMETHAZINE HCL 12.5 MG in SODIUM CHLORIDE 0.9% 50 ML IV PRN ×3 (04:08→17:50)
[2021-11-29] MEDS: LEVOTHYROXINE SODIUM 88 MCG TABLET PO SCH (05:38)
[2021-11-29] MEDS: D5W AND 1/2NSS 1,000 ML IV SCH (05:38)
[2021-11-29] MEDS: DICYCLOMINE HCL 10 MG CAP PO PRN (06:09)
[2021-11-29] MEDS: CYANOCOBALAMIN (B-12) 500 MCG TABLET PO SCH (08:36)
[2021-11-29] MEDS: APIXABAN 5 MG TABLET PO SCH (08:36)
[2021-11-29] MEDS: PANTOprazole 40 MG TAB PO SCH (08:36)
[2021-11-29] MEDS: METOPROLOL SUCC 50MG EXT REL TAB PO SCH (08:36)
[2021-11-29] MEDS: FAMOTIDINE 20 MG in SYRINGE 3 ML IV SCH (08:41)
[2021-11-29 08:56] LABS: Basophils # (auto) 0.02 K/uL (0-0.2); Basophils % (auto) 0.3 %; Eosinophils # (auto) 0.18 K/uL (0-0.5); Eosinophils % (auto) 2.5 %; Hematocrit (blood only) 36.3 % (37-47); Immature Granulocytes # (auto) 0.01 K/uL (0.00-0.02); Immature Granulocytes % (auto) 0.1 %; Lymphocytes # (auto) 1.48 K/uL (1.2-3.4); Lymphocytes % (auto) 20.4 %; Mean Corpuscular Hemoglobin 24.2 pg (25-34); Mean Corpuscular Hgb Conc 30.3 g/dL (32-36); Mean Corpuscular Volume 79.8 fL (80-100); Monocytes # (auto) 0.43 K/uL (0.11-0.59); Monocytes % (auto) 5.9 %; Neutrophils # (auto) 5.15 K/uL (1.4-6.5); Neutrophils % (auto) 70.8 %; Platelet Count 339 K/uL (130-400); RDW Coefficient of Variation 15.9 % (11.5-14.5); RDW Standard Deviation 46.4 fL (36.4-46.3); Red Blood Count 4.55 M/uL (4.2-5.4); White Blood Count 7.27 K/uL (4.8-10.8)
--- NOTE | 2021-11-29 09:12 | Gastroenterology Progress Note ---
Date of Service November 29, 2021 Assessment & Plan (1) Abdominal pain: (2) Prolonged QT interval: (3) Gastroparesis: Plan: 61 yo female s/p paraesophageal hernia repair 8 years ago with gastroparesis since that time. She has a history of cardiac arrhythmia and QTc prolongation making use of Reglan impossible at this point. Admitted with flare of abd pain and dry heaves/gastroparesis. Having BMs. Having ongoing symptoms. - Can advance diet to full liquids to see if tolerated - Would recommend scheduled phenerganto see if this can improve her symptoms - Can consider dose of Emend - Would establish as OP w/ GI for further tx, w/u for her symptoms. Thank you for allowing us to participate in the care of this patient. Please call with any acute changes, questions or concerns. Please see addendum below with additional recommendation from my supervising physician. Admission and Anticipated Discharge Date Admission Date: November 28, 2021 Supervising Physician Co-Signing Physician Notes Late entry: patient was seen and examined on 11/29 with Dorothea Verdugo PA-C whose note reflects our findings and plan. Subjective Pt seen and examined, chart reviewed. No change from yesterday. Pt still complaining of abd pain, nausea, dry heaves. Can't vomit. No melena, hematochezia, fever, chills. Eating jello, clears. Review of Systems Review of Systems: All systems reviewed & are unremarkable except as noted in HPI & below Physical Exam Constitutional: WD/WN, vitals as above Respiratory: normal respiratory effort, lungs clear to auscultation Cardiovascular: RRR, no murmur, no edema Gastrointestinal (Abdomen): soft, nontender Psychiatric: A+Ox3, euthymic affect Results & Data ([facility]) Vital Signs (Past 12 Hours) Vital Signs Temp Pulse Pulse Resp BP Pulse Ox 11/29/21 07:42 36.7 C 83 20 135/96 97 11/29/21 05:26 100 H 11/29/21 03:54 36.7 C 104 H 18 126/87 96 11/28/21 23:23 36.5 C 86 18 127/89 97 Laboratory Results 11/29/21 11/29/21 Range/Units 08:27 08:27 WBC 7.27 (4.8-10.8) K/uL RBC 4.55 (4.2-5.4) M/uL Hgb 11.0 L (12.0-16.0) g/dL Hct 36.3 L (37-47) % MCV 79.8 L (80-100) fL MCH 24.2 L (25-34) pg MCHC 30.3 L (32-36) g/dL RDW Std Deviation 46.4 H (36.4-46.3) fL RDW Coeff of Ana M 15.9 H (11.5-14.5) % Plt Count 339 (130-400) K/uL MPV 10.0 (7.4-10.4) fL Immature Gran % (Auto) 0.1 % Neut % (Auto) 70.8 % Lymph % (Auto) 20.4 % [place] % (Auto) 5.9 % Eos % (Auto) 2.5 % Baso % (Auto) 0.3 % Neut # (Auto) 5.15 (1.4-6.5) K/uL Lymph # (Auto) 1.48 (1.2-3.4) K/uL [place] # (Auto) 0.43 (0.11-0.59) K/uL Eos # (Auto) 0.18 (0-0.5) K/uL Baso # (Auto) 0.02 (0-0.2) K/uL Immature Gran # (Auto) 0.01 (0.00-0.02) K/uL Sodium 143 (136-145) mmol/L Potassium 3.3 L (3.5-5.1) mmol/L Chloride 110 H (98-107) mmol/L Carbon Dioxide 24 (21-32) mmol/L Anion Gap 9 (3-11) BUN 4 L (6-23) mg/dl Creatinine 0.90 (0.6-1.2) mg/dl Est Cr Clr Drug Dosing 70.4 ml/min Est GFR ( Amer) 78.9 ml/min Est GFR (Non-Af Amer) 68.0 ml/min BUN/Creatinine Ratio 4.4 L (10-20) Glucose 153 H (70-99(Fasting)) mg/dl Calcium 7.8 L (8.5-10.1) mg/dl Magnesium 1.7 (1.7-2.4) mg/dl (1) Abdominal pain Abdominal location: generalized Qualified Code(s): R10.84 - Generalized abdominal pain
[2021-11-29 09:14] LABS: BUN Creatinine Ratio 4.4 (10-20); Calcium 7.8 mg/dl (8.5-10.1); Creatinine Clr Calc Pharmacy 70.4 ml/min; Est GFR (African American) 78.9 ml/min; Magnesium 1.7 mg/dl (1.7-2.4); Potassium 3.3 mmol/L (3.5-5.1)
[2021-11-29] MEDS ORDERED: HEPARIN 100 UNIT/ML 5ML FLUSH FLUSH STA (13:59)
--- NOTE | 2021-11-29 15:12 | Hospitalist Progress Note ---
Date of Service November 29, 2021 Assessment & Plan (1) Gastroparesis: Plan: Has history of gastroparesis with recurrent admissions secondary to intractable nausea, vomiting Another episode of abdominal pain, nausea, vomiting and diarrhea Has been getting symptomatic medications including Bentyl and Phenergan Appreciate GI input and recommendation Not any better this morning and still has abdominal pain with nausea We will continue current management Appreciate GI reevaluation and continuation of current medications Cannot use certain medications like metoclopramide due to QT prolongation Patient does not want to stay in the hospital anymore as her condition has not been much better She knows that if her condition gets worse she has to come back and she has done that repeatedly before She will be discharged home this afternoon (2) Abdominal pain: Plan: Pain seems to be a little better today No abdominal pain (3) Nausea & vomiting: Plan: Continues to have nausea Advised to continue with gastroparesis diet (4) Diarrhea: Plan: Has been having diarrhea We will get a stool for C. difficile and stool culture-have been negative No more diarrhea (5) Paroxysmal A-fib: Plan: Heart rate is controlled at 87 Denies any cardiac symptoms (6) Prolonged QT interval: Plan: Will avoid any QT prolongation medications including Zofran (7) HTN (hypertension): Plan: Blood pressure is controlled (8) COPD (chronic obstructive pulmonary disease): Plan: No acute disease state Plan: DVT prophylaxis Has been on Eliquis She does not want to stay in the hospital any longer She will try the same as an outpatient She was discharged home with an appointment with a GI specialist as an outpatient Admission and Anticipated Discharge Date Admission Date: November 28, 2021 Subjective 11/27/2021 The patient was seen and examined in medical telemetry unit She has been complaining of abdominal pain with nausea and vomiting with history of chronic gastroparesis Still having diarrhea Denies any fever and no chills 11/28/2021 The patient was seen and examined in medical telemetry unit She has been complaining of some nausea this morning with some abdominal pain She is not yet ready to be discharged 11/29/2021 Patient was seen and examined in medical telemetry unit She complains to have epigastric discomfort with nausea with any kind of food and any amount She has not made any better but does not want to stay in the hospital anymore She will be discharged this afternoon Review of Systems Review of Systems: All systems reviewed and are unremarkable except as noted below Gastrointestinal: Abdominal pain with nausea, vomiting and diarrhea. No distention Physical Exam Physical Exam: Sitting at the edge of the bed without any acute distress Constitutional: well developed, well nourished and + obese; not ill appearing Eyes: PERRL, conjunctivae normal, anicteric sclerae ENMT: external ear and nose normal, oropharynx normal Neck: trachea midline, no thyromegaly Respiratory: no respiratory distress Auscultation: lungs clear to auscultation bilaterally Cardiovascular: Rate/Rhythm: regular rate and regular rhythm; not tachycardic Heart Sounds: normal S1; no murmur Extremities: no edema Gastrointestinal (Abdomen): Inspection/Auscultation: normal bowel sounds; abdomen not distended Percussion/Palpation: + abdomen tender (Mildly tender in the epigastrium) and abdomen soft Musculoskeletal: Head/Neck/Chest: normocephalic and neck supple Neurologic: normal touch/pain/proprioception Psychiatric: A+Ox3, euthymic affect Lymphatic: no cervical or axillary lymphadenopathy Results & Data Results & Data ([facility]) Vital Signs (Past 12 Hours) Vital Signs Temp Pulse Pulse Resp BP BP Pulse Ox 11/29/21 14:53 36.5 C 56 L 20 137/99 100 11/29/21 10:56 36.4 C L 91 H 19 136/91 97 11/29/21 07:42 36.7 C 83 20 135/96 97 11/29/21 07:00 96 H 11/29/21 05:26 100 H 11/29/21 03:54 36.7 C 104 H 18 126/87 96 Laboratory Results Short CBC 11/29/21 Range/Units 08:27 WBC 7.27 (4.8-10.8) K/uL Hgb 11.0 L (12.0-16.0) g/dL Hct 36.3 L (37-47) % Plt Count 339 (130-400) K/uL BMP 11/29/21 08:27 Sodium 143 Potassium 3.3 L Chloride 110 H Carbon Dioxide 24 BUN 4 L Creatinine 0.90 Glucose 153 H Calcium 7.8 L Medications Administered Current Inpatient Medications Acetaminophen (Acetaminophen 325 Mg Tab) 650 mg PO Q4H PRN PRN Reason: Pain or Fever Stop: 12/26/21 21:08 Apixaban (Apixaban 5 Mg Tablet) 5 mg PO BID [facility] Stop: 12/26/21 21:08 Last Admin: 11/29/21 08:36 Dose: 5 mg Documented by: Cyanocobalamin (Cyanocobalamin (B-12) 500 Mcg Tablet) 1,000 mcg PO DAILY [facility] Stop: 12/27/21 08:59 Last Admin: 11/29/21 08:36 Dose: 1,000 mcg Documented by: Dicyclomine HCl (Dicyclomine Hcl 10 Mg Cap) 10 mg PO QID PRN PRN Reason: Abdominal Discomfort Stop: 12/26/21 21:08 Last Admin: 11/29/21 06:09 Dose: 10 mg Documented by: Heparin Sodium (Porcine) (Heparin 100 Unit/Ml 5ml Flush) 5 ml FLUSH PRN PRN PRN Reason: Flush Stop: 12/27/21 22:01 Hydromorphone HCl (Hydromorphone Inj 0.5 Mg/0.5 Ml Syr) 0.5 mg IV Q3H PRN PRN Reason: Pain Stop: 12/10/21 21:08 Famotidine 20 mg/ Syringe 5 mls @ 2.5 mls/min IV BID [facility] Stop: 12/27/21 08:59 Last Admin: 11/29/21 08:41 Dose: 2.5 mls/min Documented by: Promethazine HCl 12.5 mg/ (Sodium Chloride) 50.5 mls @ 202 mls/hr IV Q4H PRN PRN Reason: Nausea And Vomiting Stop: 12/26/21 21:08 Last Infusion: 11/29/21 11:30 Dose: Infused Documented by: Levothyroxine Sodium (Levothyroxine Sodium 88 Mcg Tablet) 88 mcg PO DAILYBB [facility] Stop: 12/27/21 06:29 Last Admin: 11/29/21 05:38 Dose: 88 mcg Documented by: Metoprolol Succinate (Metoprolol Succ 50mg Ext Rel Tab) 100 mg PO BID [facility] Stop: 12/26/21 21:08 Last Admin: 11/29/21 08:36 Dose: 100 mg Documented by: Metoprolol Tartrate (Metoprolol Tartrate 1 Mg/Ml Vial) 5 mg IV Q6 PRN; Protocol PRN Reason: Tachycardia Stop: 12/26/21 21:08 Nitroglycerin (Nitroglycerin Sl 0.4 Mg/Tab Tab) 0.4 mg SL UD PRN PRN Reason: Chest Pain Stop: 12/26/21 21:08 Oxycodone HCl (Oxycodone Hcl Ir 5 Mg Tab (Immediate Release)) 5 mg PO Q4H PRN PRN Reason: Pain Stop: 12/12/21 01:18 Pantoprazole Sodium (Pantoprazole 40 Mg Tab) 40 mg PO BID [facility] Stop: 12/26/21 21:08 Last Admin: 11/29/21 08:36 Dose: 40 mg Documented by: Lazarusat Multivit/Administrative Volunteer/Iron/Folic Ac ( Vitamin 1 Tab) 1 tab PO HS [facility] Stop: 12/26/21 21:08 Last Admin: 11/28/21 20:52 Dose: 1 tab Documented by: (1) Abdominal pain Abdominal location: generalized Qualified Code(s): R10.84 - Generalized abdominal pain (2) Nausea & vomiting Vomiting type: unspecified Qualified Code(s): R11.2 - Nausea with vomiting, unspecified
--- NOTE | 2021-11-30 09:46 | Discharge Summary ---
Date of Service November 30, 2021 The patient was discharged on 11/29/2021 and the documentation reflects as of 11/29/2021 though the discharge summary was finished on 11/30/2021. Dr Karla Malhotra Admission HPI Per Admitting Provider DICTATED BY:Leandro Gusman MD DATE OF ADMISSION: 11/26/2021. CHIEF COMPLAINT: Abdominal pain. HISTORY OF PRESENT ILLNESS: This is a 61-year-old female with past medical history significant for atrial fibrillation, tachybrady syndrome, status post pacemaker, history of hiatal hernia, status post surgery since then having gastroparesis as per the patient, history of prolonged QT, history of COPD, chronic kidney disease stage III, history of anemia, history of mitral regurgitation, hypothyroidism, status post right subclavian port, ongoing tobacco abuse, history of pernicious anemia, iron deficiency anemia, history of pemphigus, generalized anxiety disorder, presents with abdominal pain and dry heaves. The patient has had multiple admissions for gastroparesis. The patient says since last night she is having abdominal pain, severe in nature associated with dry heaves. She moved a normal bowel movement today in the morning. She is feeling short of breath since she was diagnosed with COVID. She had 2 times COVID, last one in August of last year. She is afebrile. Denies any chest pain, no headache, no blurred visions, no earache, no runny nose, no sore throat. No blood in stools or black stools. Normal bladder movements. Ambulating okay. Currently hemodynamically stable. Heart rate is slightly elevated. Last admission, she was recently in the hospital with gastroparesis flare,at that time, she was in rapid AFib, which was not improving, she was started on amiodarone and also status post cardioversion, which was unsuccessful and AV junction ablation was recommended At the time of discharge, amiodarone discontinued and her metoprolol dose was increased. Admission Exam Per Admitting Provider GENERAL: The patient is of moderate build, not in acute distress. VITAL SIGNS: Temperature 36.8, pulse 99, respiratory rate 17, blood pressure 142/110, oxygen 94% on room air. HEENT: Pupils equal, round and reactive to light. Oral mucosa moist. NECK: No JVD, no neck masses. CARDIOVASCULAR: S1 and S2 heard. Regular rate and rhythm. No murmur, no gallop. RESPIRATORY SYSTEM: Normal AP diameter. No accessory muscle use. No wheezing, no crackles. ABDOMEN: Soft, bowel sounds present. Diffuse discomfort. Mild guarding, no rigidity, no distention. CENTRAL NERVOUS SYSTEM: Cranial nerves II-XII grossly intact, nonfocal. EXTREMITIES: No edema, no erythema. Principal Diagnosis Gastroparesis with recurrent abdominal pain, nausea and vomiting. Paroxysmal atrial fibrillation, prolonged QT interval, COPD, hypertension Discharge Exam Sitting at the edge of the bed without any acute distress Constitutional well developed, well nourished and + obese; not ill appearing Eyes PERRL, conjunctivae normal, anicteric sclerae ENMT external ear and nose normal, oropharynx normal Neck trachea midline, no thyromegaly Respiratory no respiratory distress Auscultation: lungs clear to auscultation bilaterally Cardiovascular Rate/Rhythm: regular rate and regular rhythm; not tachycardic Heart Sounds: normal S1; no murmur Extremities: no edema Gastrointestinal (Abdomen) Inspection/Auscultation: normal bowel sounds; abdomen not distended Percussion/Palpation: + abdomen tender (Mildly tender in the epigastrium) and abdomen soft Musculoskeletal Head/Neck/Chest: normocephalic and neck supple Neurologic normal touch/pain/proprioception Psychiatric A+Ox3, euthymic affect Lymphatic no cervical or axillary lymphadenopathy Discharge Data Allergies Allergy/AdvReac Type Severity Reaction Status Date / Time adhesive Allergy Mild POWERS SKIN Verified 11/26/21 14:57 capsaicin Allergy Mild ITCHINESS Verified 11/26/21 14:57 amoxicillin AdvReac Intermediate yeast Verified 11/26/21 14:57 infection scopolamine AdvReac Intermediate rash from Verified 11/26/21 14:57 patch NSAIDS (Non-Steroidal AdvReac Mild indegestion Verified 11/26/21 14:57 Anti-Inflamma rofecoxib AdvReac Mild indigestion Verified 11/26/21 14:57 Consultations 11/26/21 19:10 ED Decision to Admit Stat 11/27/21 08:00 Consult Gastroenterology Routine Ordered Studies 11/26/21 17:44 CT abd pelvis wo con Stat Hospital Course (1) Gastroparesis: Has history of gastroparesis with recurrent admissions secondary to intractable nausea, vomiting Another episode of abdominal pain, nausea, vomiting and diarrhea Has been getting symptomatic medications including Bentyl and Phenergan Appreciate GI input and recommendation Not any better this morning and still has abdominal pain with nausea We will continue current management Appreciate GI reevaluation and continuation of current medications Cannot use certain medications like metoclopramide due to QT prolongation Patient does not want to stay in the hospital anymore as her condition has not been much better She knows that if her condition gets worse she has to come back and she has done that repeatedly before She will be discharged home this afternoon (2) Abdominal pain: Pain seems to be a little better today No abdominal pain (3) Nausea & vomiting: Continues to have nausea Advised to continue with gastroparesis diet (4) Diarrhea: Has been having diarrhea We will get a stool for C. difficile and stool culture-have been negative No more diarrhea (5) Paroxysmal A-fib: Heart rate is controlled at 87 Denies any cardiac symptoms (6) Prolonged QT interval: Will avoid any QT prolongation medications including Zofran (7) HTN (hypertension): Blood pressure is controlled (8) COPD (chronic obstructive pulmonary disease): No acute disease state DVT prophylaxis Has been on Eliquis She does not want to stay in the hospital any longer She will try the same as an outpatient She was discharged home with an appointment with a GI specialist as an outpatient Total Time Total Time Spent Total Time Spent (In Minutes): 35 minutes Discharge Plan Discharge Items Patient Disposition: Home - Self-Care Reason For Visit: ABDOMINAL PAIN Discharge Diagnosis: Gastroparesis with recurrent abdominal pain, nausea and vomiting. Paroxysmal atrial fibrillation, prolonged QT interval, COPD, hypertension Condition on Discharge: Good Activity: Resume your previous activity Non-emergency contact: Primary Care Provider Call non-emergency contact if: you have any medication questions and your symptoms worsen Follow-up/Referrals: Jaleel Coppola MD [Primary Care Provider] - (Date & Time 12/06/2021 2:20 PM Provider Jaleel Coppola MD Department Family Medicine [facility] ) Marilyn Gonzalez CRNP [Nurse Practitioner] - (Date & Time 12/15/2021 10:00 AM Provider VANIA Quintanilla Department Gastroenterology, [facility] ) Diet: Other - See Diet Comment Diet Comment: Gastroparesis diet Addtl Attending Provider Instructions: Please take precautions to avoid falls Follow the gastroparesis diet with small amount of food at one time and take it for multiple times to avoid severe symptoms of nausea, vomiting and abdominal pain Please give appointment with your healthcare providers including rural carrier Pending Studies at Discharge: No Stand-Alone Forms: My [facility], Smoking Cessation Medications and DC Order Prescriptions: Continued dicyclomine 10 mg capsule 10 mg PO BID PRN (Reason: Abdominal Discomfort) RF: 0 pantoprazole 40 mg Tablet,Delayed Release (Dr/Ec) 40 mg PO BID Qty: 60 RF: 0 acetaminophen [Tylenol Extra Strength] 500 mg Tablet 1,000 mg PO Q6H PRN (Reason: Fever Or Pain) Qty: 60 RF: 0 levothyroxine [Synthroid] 88 mcg tablet 88 mcg PO QAM Qty: 30 RF: 0 cyanocobalamin (vitamin B-12) [Vitamin B-12] 1,000 mcg Tablet 1,000 mcg PO DAILY RF: 0 vit-iron fum-folic ac 65 mg iron- 1 mg Tablet 1 tab PO HS RF: 0 Eliquis 5 mg tablet 5 mg PO BID RF: 0 promethazine 25 mg tablet 25 mg PO Q6H PRN (Reason: Nausea) 10 Days Qty: 30 RF: 0 metoprolol succinate [Toprol XL] 100 mg tablet extended release 24 hr 100 mg PO BID Qty: 60 RF: 0 Discharge Orders: Discharge Order (Routine); Ordered 11/29/21 Ordered By: Rosi Malhotra Admission Data Admit Date/Time: 11/28/21 11:20 Attending Provider: Rosi Malhotra Admit Provider: Leandro Gusman Primary Care Provider: Jaleel Coppola Other Providers: Leandro Gusman ; Dino Moreno Other Interventions: Discharge Summary Assessment (RN) Last Done: 11/29/21 15:37
== END 2021-11-29 19:30 | disposition home or self-care (01) ==
LOC: ED 13:59 → 2N 13:59 → SUATTDRO 20:01 → 2N 21:57

== ENCOUNTER 2021-12-05 22:25 | Observation (INO) ==
[2021-12-05] MEDS ORDERED: SODIUM CHLORIDE 0.9% 1000ML 1,000 ML IV STA (23:39)
[2021-12-05] MEDS ORDERED: ONDANSETRON INJ 2 MG/ML 2 ML VIAL IV STA (23:41)
--- NOTE | 2021-12-05 23:46 | Emergency Department Note ---
History of Present Illness General Chief complaint: Illness Stated complaint: gastroparesis Time Seen by Provider: 12/05/21 23:28 Source: patient, RN notes reviewed and old records reviewed Mode of arrival: EMS Limitations: no limitations History of Present Illness Maximum Pain Intensity: 5 This patient is a 61-year-old female has a history of gastroparesis with frequent flareups, comes in after having symptoms consistent with her gastroparesis since around 11:00 she is feels very nauseated. She has had a gastric sleeve and says she cannot vomit. She is been able to take her pills and keep them down. She has a lot of abdominal discomfort and bloating like she typically does no chest pain no shortness of breath. She did have the COVID vaccine with the [employer] and also she had Covid twice with the last time in September. No lower extremity pain or swelling no chest pain. She has been a port in her right chest. No trauma or injury. No dysuria or hematuria. Home Medications Medication Instructions Recorded Confirmed Type pantoprazole 40 mg tablet,delayed 40 mg PO BID #60 tab 12/10/19 12/06/21 Rx release acetaminophen 500 mg tablet 1,000 mg PO Q6H PRN #60 tab 12/16/19 12/06/21 Rx (Tylenol Extra Strength) levothyroxine 88 mcg tablet 88 mcg PO QAM #30 tab 12/16/19 12/06/21 Rx (Synthroid) dicyclomine 10 mg capsule 10 mg PO BID PRN 12/17/19 12/06/21 History apixaban 5 mg tablet (Eliquis) 5 mg PO BID 10/02/21 12/06/21 History cyanocobalamin (vitamin B-12) 1,000 mcg PO DAILY 10/02/21 12/06/21 History 1,000 mcg tablet (Vitamin B-12) vitamins-iron fumarate 65 1 tab PO HS 10/02/21 12/06/21 History mg iron-folic acid 1 mg tablet metoprolol succinate 100 mg 100 mg PO BID #60 tab 11/18/21 12/06/21 Rx tablet,extended release 24 hr (Toprol XL) promethazine 25 mg tablet 25 mg PO Q6H PRN 10 Days #30 tab 11/29/21 12/06/21 Rx Allergies Allergy/AdvReac Type Severity Reaction Status Date / Time adhesive Allergy Mild POWERS SKIN Verified 11/26/21 14:57 capsaicin Allergy Mild ITCHINESS Verified 11/26/21 14:57 amoxicillin AdvReac Intermediate yeast Verified 11/26/21 14:57 infection scopolamine AdvReac Intermediate rash from Verified 11/26/21 14:57 patch NSAIDS (Non-Steroidal AdvReac Mild indegestion Verified 11/26/21 14:57 Anti-Inflamma rofecoxib AdvReac Mild indigestion Verified 11/26/21 14:57 Past Med/Surg History Medical History Acidosis, lactic Anxiety Asthma COPD (chronic obstructive pulmonary disease) COVID-19 COVID-19 Depression Diverticulosis Frequent PVCs Gastroparesis GERD (gastroesophageal reflux disease) H/O irritable bowel syndrome HTN (hypertension) Hypokalemia Hypomagnesemia Hypomagnesemia Hypophosphatemia Hypothyroidism Intractable nausea and vomiting Mitral regurgitation "moderate per echo 09/21/15" Neuropathy Paroxysmal A-fib Pemphigus vulgaris Prolonged QT interval Tobacco abuse Surgical History History of bladder surgery History of laparoscopic partial gastrectomy History of pyloroplasty History of total hysterectomy Hx of cholecystectomy Hx of tonsillectomy S/P hysterectomy S/P laparoscopic sleeve gastrectomy S/P partial gastrectomy S/P repair of paraesophageal hernia "resulted in volvulus, required abdominal exploration" S/P tonsillectomy and adenoidectomy Family History Mother DM type 2 (diabetes mellitus, type 2) Coronary heart disease Social History Smoking Status: Current every day smoker Tobacco Type: Cigarettes Cigarettes Per Day: 20; Second Hand Exposure: Yes; Hx Alcohol Use: Yes Alcohol type: beer Alcohol Intake Frequency Comment: 3-4 b eers/week Hx Substance Use: No Preferred Language: Mohawk Communication Ability: Effective [employer] Required: No Beliefs That Will Affect Care: None marital status: Single Current Living Situation: Family Current Living Situation Comment: Lives with daughter and her family in mobile home How many Children do You have: 2 Feels Safe at Home: Yes Assistive Devices: None Review of Systems A total of 10 systems reviewed and were otherwise negative Physical Exam Vital Signs Vital Signs - 24 hr 12/05/21 22:15 12/06/21 00:11 12/06/21 00:42 Temperature 36 C L Temperature Source Oral Pulse Rate 120 H 103 H Pulse Rate [Apical] 110 H Respiratory Rate 16 24 Respiratory Effort / Characteristics Non-Labored Non-Labored Respiratory Depth Normal Respiratory Pattern Regular Blood Pressure 130/90 Blood Pressure [Right Arm] 145/125 H Blood Pressure Mean 103 Blood Pressure Mean [Right Arm] 131 Blood Pressure Position [Right Arm] Lying Pulse Oximetry 96 98 97 Oxygen Delivery Method Room Air Room Air Room Air Sepsis Recent Fever Within 48 Hours No Sepsis New/Unexplained Change in Mental Status No Sepsis Action Taken by Nursing No Action Required General: Well developed well nourished uncomfortable appearing middle-aged female who appears in no acute respiratory distress, breathing comfortably on room air. Normal speech HEENT: Normal cephalic atraumatic. Pupils are equal round and reactive to ligh t. Extraocular movements are intact. Oropharynx is pink with moist mucous membranes. No swelling of the mouth lips or tongue. Neck: Supple with a midline trachea. No meningeal signs or stiffness, no JVD or bruits. No Stridor. Chest: Clear to auscultation bilaterally. No wheezes or rhonchi. No increased work of breathing. A port in right chest. Pacemaker in left chest Heart: Regular rate and rhythm without murmurs or gallops. Abdomen: Soft nontender, nondistended without rebound guarding or rigidity. Extremities: No cyanosis clubbing or edema. No calf tenderness or assymetry Spine/Back. Non tender to palpation. No CVA tenderness Skin: Good turgor without rashes. Neurologic exam: Cranial nerves two through 12 are intact. Motor and sensation are intact and symmetrical throughout. Course Administered Medications Discontinued Medications Sodium Chloride (Nss 1000ml) 1,000 mls @ 999 mls/hr IV .Q1H1M STA Stop: 12/06/21 00:39 Last Infusion: 12/06/21 01:25 Dose: 0 mls/hr Documented by: [id number] Admin: 12/06/21 00:05 Dose: 999 mls/hr Documented by: [id number] Promethazine HCl (Phenergan) 12.5 mg in 50.5 mls @ 202 mls/hr IV NOW STA Stop: 12/06/21 00:57 Last Infusion: 12/06/21 01:25 Dose: 0 mls/hr Documented by: [id number] Admin: 12/06/21 00:49 Dose: 202 mls/hr Documented by: [id number] Sodium Chloride (Nss 1000ml) 500 mls @ 999 mls/hr IV .Q31M ONE Stop: 12/06/21 02:00 Last Admin: 12/06/21 01:42 Dose: 999 mls/hr Documented by: [id number] Morphine Sulfate (Morphine Sulfate 4 Mg/Ml 1 Ml Carp\\Vial) 4 mg IV NOW STA Stop: 12/06/21 01:31 Last Admin: 12/06/21 01:42 Dose: 4 mg Documented by: [id number] Ondansetron HCl (Ondansetron Inj 2 Mg/Ml 2 Ml Vial) 4 mg IV NOW STA Stop: 12/05/21 23:42 Last Admin: 12/06/21 00:04 Dose: 4 mg Documented by: [id number] Ondansetron HCl (Ondansetron Inj 2 Mg/Ml 2 Ml Vial) 4 mg IV NOW STA Stop: 12/06/21 01:31 Last Admin: 12/06/21 01:42 Dose: 4 mg Documented by: [id number] Medical Decision Making Differential Diagnosis Gastroparesis, electrolyte or metabolic abnormality, cardiac disease, arrhythmia, dehydration, infection, Covid Medical Records Attestation: I reviewed the patient's medical records. Home Medications Current Medication List: was personally reviewed by me Laboratory Data Attestation: I reviewed the patient's lab results. Result diagrams: 12/05/21 23:46 12/05/21 23:46 Lab Results 12/05/21 12/05/21 12/06/21 Range/Units 23:46 23:46 00:09 WBC 7.14 (4.8-10.8) K/uL RBC 4.50 (4.2-5.4) M/uL Hgb 11.1 L (12.0-16.0) g/dL Hct 34.8 L (37-47) % MCV 77.3 L (80-100) fL MCH 24.7 L (25-34) pg MCHC 31.9 L (32-36) g/dL RDW Std Deviation 45.0 (36.4-46.3) fL RDW Coeff of Ana M 15.8 H (11.5-14.5) % Plt Count 353 (130-400) K/uL MPV 10.1 (7.4-10.4) fL Immature Gran % (Auto) 0.1 % Neut % (Auto) 50.9 % Lymph % (Auto) 38.4 % [place] % (Auto) 8.8 % Eos % (Auto) 1.7 % Baso % (Auto) 0.1 % Neut # (Auto) 3.63 (1.4-6.5) K/uL Lymph # (Auto) 2.74 (1.2-3.4) K/uL [place] # (Auto) 0.63 H (0.11-0.59) K/uL Eos # (Auto) 0.12 (0-0.5) K/uL Baso # (Auto) 0.01 (0-0.2) K/uL Immature Gran # (Auto) 0.01 (0.00-0.02) K/uL Sodium 141 (136-145) mmol/L Potassium 3.6 (3.5-5.1) mmol/L Chloride 109 H (98-107) mmol/L Carbon Dioxide 22 (21-32) mmol/L Anion Gap 10 (3-11) BUN 16 (6-23) mg/dl Creatinine 1.03 (0.6-1.2) mg/dl Est Cr Clr Drug Dosing 60.9 ml/min Est GFR ( Amer) 67.0 ml/min Est GFR (Non-Af Amer) 57.8 ml/min BUN/Creatinine Ratio 15.5 (10-20) Glucose 98 (70-99(Fasting)) mg/dl Calcium 8.4 L (8.5-10.1) mg/dl Magnesium 1.7 (1.7-2.4) mg/dl Total Bilirubin 0.5 (0.2-1.0) mg/dl AST 16 (13-39) U/L ALT 12 (7-52) U/L Alkaline Phosphatase 86 (34-104) U/L Troponin I < 0.03 (0-0.04) ng/ml Total Protein 6.1 (6.0-8.3) gm/dl Albumin 3.7 (3.4-5.0) gm/dl Globulin 2.4 L (2.5-4.0) gm/dl Albumin/Globulin Ratio 1.5 (0.9-2) Lipase 24 (11-82) U/L SARS-CoV-2, RNA, NAAT NEGATIVE (NEGATIVE) Imaging Data Attestation: I personally reviewed and interpreted this imaging study as fo llows: My Impression: Chest X-rayno acute infiltrate, failure, pneumothorax seen ECG Data Attestation: I personally reviewed and interpreted this ECG as follows: Indication: + vomiting Rate (beats per minute): 110 Rhythm: + atrial fibrillation ECG Intervals/blocks: + Incomplete right bundle branch block and + Prolonged QT ECG [place]: + Right axis deviation ECG ST segments: + Normal ST segments ECG Findings: no PACs or no PVCs Comparison ECG Date: from (10/2021) Change: the following changes noted (QTs has increased. Rate has increased) MDM Narrative This patient comes in after having some symptoms consistent with her previous gastroparesis. Her a port was accessed she was hydrated with 1 L IV normal saline she was given Zofran 4 mg IV. Multiple blood testing was obtained as well as chest x-ray and EKG. She was reassessed frequently. EKG shows a mildly rapid A. fib without ischemic changes or QTC is mildly prolonged. She has no significant electrolyte or metabolic abnormalities. Chest x-ray was unremarkable and does not show congestive heart failure, pneumonia, or pneumothorax. she continued to have nausea and was given Phenergan 12.5 mg IV. She still had nausea and complaint of pain and was given morphine 4 mg IV and Zofran 4 mg IV. She tells me she has had morphine before without any problems. She was given additional IV fluids. I do think she will need to be admitted for further hydration, medications and observation. Dr. Briggs to see her in the ER for these measures Continuous cardiac monitoring: Orders placed in EMR for continuous cardiac monitoring. Upon my interpretation she appears to be in A. fib with a rate of 105. Impression & Plan Gastroparesis, A-fib, Current use of oil heaterman anticoagulation, Nausea, Abdominal pain Discharge Plan Visit Data Chief Complaint: Illness Stated Complaint: gastroparesis ED Provider: Dony Santamaria Discharge Problem: Gastroparesis, A-fib, Current use of oil heaterman anticoagulation, Nausea, Abdominal pain Forms Stand Alone Forms: [facility] Prescriptions Prescriptions: No Action dicyclomine 10 mg capsule 10 mg PO BID PRN (Reason: Abdominal Discomfort) RF: 0 pantoprazole 40 mg Tablet,Delayed Release (Dr/Ec) 40 mg PO BID Qty: 60 RF: 0 acetaminophen [Tylenol Extra Strength] 500 mg Tablet 1,000 mg PO Q6H PRN (Reason: Fever Or Pain) Qty: 60 RF: 0 levothyroxine [Synthroid] 88 mcg tablet 88 mcg PO QAM Qty: 30 RF: 0 cyanocobalamin (vitamin B-12) [Vitamin B-12] 1,000 mcg Tablet 1,000 mcg PO DAILY RF: 0 vit-iron fum-folic ac 65 mg iron- 1 mg Tablet 1 tab PO HS RF: 0 Eliquis 5 mg tablet 5 mg PO BID RF: 0 promethazine 25 mg tablet 25 mg PO Q6H PRN (Reason: Nausea) 10 Days Qty: 30 RF: 0 metoprolol succinate [Toprol XL] 100 mg tablet extended release 24 hr 100 mg PO BID Qty: 60 RF: 0 Referrals Referrals: Jaleel Coppola MD [Primary Care Provider] -
[2021-12-05 23:55] LABS: Basophils # (auto) 0.01 K/uL (0-0.2); Basophils % (auto) 0.1 %; Eosinophils # (auto) 0.12 K/uL (0-0.5); Eosinophils % (auto) 1.7 %; Hematocrit (blood only) 34.8 % (37-47); Hemoglobin 11.1 g/dL (12.0-16.0); Immature Granulocytes # (auto) 0.01 K/uL (0.00-0.02); Immature Granulocytes % (auto) 0.1 %; Lymphocytes # (auto) 2.74 K/uL (1.2-3.4); Lymphocytes % (auto) 38.4 %; Mean Corpuscular Hemoglobin 24.7 pg (25-34); Mean Corpuscular Hgb Conc 31.9 g/dL (32-36); Mean Corpuscular Volume 77.3 fL (80-100); Mean Platelet Volume 10.1 fL (7.4-10.4); Monocytes # (auto) 0.63 K/uL (0.11-0.59); Monocytes % (auto) 8.8 %; Neutrophils # (auto) 3.63 K/uL (1.4-6.5); Neutrophils % (auto) 50.9 %; Platelet Count 353 K/uL (130-400); RDW Coefficient of Variation 15.8 % (11.5-14.5); White Blood Count 7.14 K/uL (4.8-10.8)
[2021-12-06 00:23] LABS: Troponin I < 0.03 ng/ml (0-0.04)
[2021-12-06] MEDS ORDERED: PROMETHAZINE 12.5 MG/50.5 ML BAG IV STA (00:43)
[2021-12-06 00:44] LABS: Alanine Aminotransferase 12 U/L (7-52); Albumin Globulin Ratio 1.5 (0.9-2); Albumin Level 3.7 gm/dl (3.4-5.0); Alkaline Phosphatase 86 U/L (34-104); Anion Gap 10 (3-11); Aspartate Aminotransferase 16 U/L (13-39); BUN Creatinine Ratio 15.5 (10-20); Bilirubin,Total 0.5 mg/dl (0.2-1.0); Blood Urea Nitrogen 16 mg/dl (6-23); Calcium 8.4 mg/dl (8.5-10.1); Carbon Dioxide 22 mmol/L (21-32); Chloride 109 mmol/L (98-107); Creatinine Clr Calc Pharmacy 60.9 ml/min; Est GFR (Non-African American) 57.8 ml/min; Globulin 2.4 gm/dl (2.5-4.0); Glucose 98 mg/dl (70-99(Fasting)); Lipase 24 U/L (11-82); Magnesium 1.7 mg/dl (1.7-2.4); Potassium 3.6 mmol/L (3.5-5.1); Sodium 141 mmol/L (136-145); Total Protein 6.1 gm/dl (6.0-8.3)
[2021-12-06] MEDS ORDERED: SODIUM CHLORIDE 0.9% 1000ML 500 ML IV ONE (01:30)
[2021-12-06] MEDS ORDERED: ONDANSETRON INJ 2 MG/ML 2 ML VIAL IV STA (01:30)
[2021-12-06] MEDS ORDERED: MoRPHine SULFATE 4 MG/ML 1 ML CARP\\VIAL IV STA (01:30)
[2021-12-06] MEDS ORDERED: METOPROLOL TARTRATE 1 MG/ML VIAL IV STA (01:55)
[2021-12-06] MEDS ORDERED: MAGNESIUM SULFATE / D5W 1 GM/100 ML BAG IV ONE (01:56)
[2021-12-06] MEDS ORDERED: POTASSIUM CHLORIDE / WTR 10 MEQ/100 ML PLCT IV STA (01:56)
[2021-12-06] MEDS ORDERED: POTASSIUM CHLORIDE PWD 20 MEQ PACK PO STA (01:57)
--- NOTE | 2021-12-06 03:05 | History & Physical Report ---
Date of Service December 06, 2021 Assessment & Plan (1) A-fib: Plan: Rapid A. fib History SSS status post PPM on Eliquis Secondary to gastroparesis flareup hypothyroidism, euthyroid as of today's TSH COPD, pulmonary status at baseline anxiety, depression, at baseline Chronic anemia, hemoglobin at baseline Ongoing tobacco abuse OBS PCU Facilitate home beta-lauren Rx, IV Lopressor 1 dose now Clear liquids for now Antiemetics, Emend trial for gastroparesis flareup GI consult if without improvement judicious narcotic use Nicotine patch PRN DVT prophylaxis. Eliquis Full code Text document was generated using [employer] voice recognition software. It may contain grammatical or spelling errors. Kindly contact undersigned for clarification of any documentation item in question. History of Present Illness Chief Complaint: Abdominal pain, emesis Primary Care Provider: Jaleel Coppola MD History obtained from patient and records. Medical history significant for SSS status post PPM on Eliquis, gastroparesis, hypothyroidism, COPD, chronic anemia (baseline hemoglobin of 10-11), anxiety, d epression, ongoing tobacco abuse Three confinements since September 2021. Last confinement last week for gastroparesis flareup. Patient seen by GI during confinement. Yesterday around 11 AM, patient noted epigastric pain, nausea symptoms reminiscent of gastroparesis attacks. Patient unable to vomit. No chest pain, no S OB, no cough symptoms. Intractable discomfort at the ER. MEDICAL HISTORY: As above. SURGERIES: PPM, A-port placement, oophorectomy, hysterectomy, bladder surgery, gastrectomy, tonsillectomy, adenectomy, hernia repair. FAMILY HISTORY: Thyroid disease, heart disease. PERSONAL SOCIAL HISTORY: Pack daily. No chronic intake of alcoholic beverages. Disabled. Allergies Allergy/AdvReac Type Severity Reaction Status Date / Time adhesive Allergy Mild POWERS SKIN Verified 11/26/21 14:57 capsaicin Allergy Mild ITCHINESS Verified 11/26/21 14:57 amoxicillin AdvReac Intermediate yeast Verified 11/26/21 14:57 infection scopolamine AdvReac Intermediate rash from Verified 11/26/21 14:57 patch NSAIDS (Non-Steroidal AdvReac Mild indegestion Verified 11/26/21 14:57 Anti-Inflamma rofecoxib AdvReac Mild indigestion Verified 11/26/21 14:57 Home Medications Medication Instructions Recorded Confirmed Type pantoprazole 40 mg tablet,delayed 40 mg PO BID #60 tab 12/10/19 12/06/21 Rx release acetaminophen 500 mg tablet 1,000 mg PO Q6H PRN #60 tab 12/16/19 12/06/21 Rx (Tylenol Extra Strength) levothyroxine 88 mcg tablet 88 mcg PO QAM #30 tab 12/16/19 12/06/21 Rx (Synthroid) dicyclomine 10 mg capsule 10 mg PO BID PRN 12/17/19 12/06/21 History apixaban 5 mg tablet (Eliquis) 5 mg PO BID 10/02/21 12/06/21 History cyanocobalamin (vitamin B-12) 1,000 mcg PO DAILY 10/02/21 12/06/21 History 1,000 mcg tablet (Vitamin B-12) vitamins-iron fumarate 65 1 tab PO HS 10/02/21 12/06/21 History mg iron-folic acid 1 mg tablet metoprolol succinate 100 mg 100 mg PO BID #60 tab 11/18/21 12/06/21 Rx tablet,extended release 24 hr (Toprol XL) promethazine 25 mg tablet 25 mg PO Q6H PRN 10 Days #30 tab 11/29/21 12/06/21 Rx Past Med/Surg History Medical History Acidosis, lactic Anxiety Asthma COPD (chronic obstructive pulmonary disease) COVID-19 COVID-19 Depression Diverticulosis Frequent PVCs Gastroparesis GERD (gastroesophageal reflux disease) H/O irritable bowel syndrome HTN (hypertension) Hypokalemia Hypomagnesemia Hypomagnesemia Hypophosphatemia Hypothyroidism Intractable nausea and vomiting Mitral regurgitation "moderate per echo 09/21/15" Neuropathy Paroxysmal A-fib Pemphigus vulgaris Prolonged QT interval Tobacco abuse Surgical History History of bladder surgery History of laparoscopic partial gastrectomy History of pyloroplasty History of total hysterectomy Hx of cholecystectomy Hx of tonsillectomy S/P hysterectomy S/P laparoscopic sleeve gastrectomy S/P partial gastrectomy S/P repair of paraesophageal hernia "resulted in volvulus, required abdominal exploration" S/P tonsillectomy and adenoidectomy Family History Mother DM type 2 (diabetes mellitus, type 2) Coronary heart disease Social History Smoking Status: Current every day smoker Tobacco Type: Cigarettes Cigarettes Per Day: 20; Second Hand Exposure: Yes; Hx Alcohol Use: Yes Alcohol type: beer Alcohol Intake Frequency Comment: 3-4 beers/week Hx Substance Use: No Preferred Language: Rwandan Communication Ability: Effective Linux Consultant Required: No Beliefs That Will Affect Care: None marital status: Single Current Living Situation: Family Current Living Situation Comment: Lives with Daughter and her family in a mobile home How many Children do You have: 2 Other Information That Helps Us Care for You: No Feels Safe at Home: Yes Safety Concerns: Feels Safe At This Time Assistive Devices: None Review of Systems Review of Systems: As per HPI, all 10 systems reviewed, all other ROS negative Physical Exam Physical Exam: GENERAL: uncomfortable, obese, no respiratory distress SKIN: Pallor, warm HEENT: Pale palpebral conjunctivae, no ptosis, dry buccal mucosa NECK : Supple, short neck, no tenderness CHEST : Decreased breath sounds , no tenderness HEART : Irregular, tachycardic, systolic murmur ABDOMEN: Some distention, minimal epigastric tenderness EXTREMITIES : No LE swelling/tenderness, no other conspicuous deformities noted NEUROLOGIC : Coherent, no facial asymmetry, no other gross focality Results & Data Results & Data ([facility]) Vital Signs (Past 12 Hours) Vital Signs Temp Pulse Pulse Resp BP BP Pulse Ox 12/06/21 00:42 110 H 24 145/125 H 97 12/06/21 00:11 103 H 98 12/05/21 22:15 36 C L 120 H 16 130/90 96 Laboratory Results Laboratory Results WBC 7.14 K/uL (4.8-10.8) 12/05/21 23:46 RBC 4.50 M/uL (4.2-5.4) 12/05/21 23:46 Hgb 11.1 g/dL (12.0-16.0) L 12/05/21 23:46 Hct 34.8 % (37-47) L 12/05/21 23:46 MCV 77.3 fL (80-100) L 12/05/21 23:46 MCH 24.7 pg (25-34) L 12/05/21 23:46 MCHC 31.9 g/dL (32-36) L 12/05/21 23:46 RDW Std Deviation 45.0 fL (36.4-46.3) 12/05/21 23:46 RDW Coeff of Ana M 15.8 % (11.5-14.5) H 12/05/21 23:46 Plt Count 353 K/uL (130-400) 12/05/21 23:46 MPV 10.1 fL (7.4-10.4) 12/05/21 23:46 Immature Gran % (Auto) 0.1 % 12/05/21 23:46 Neut % (Auto) 50.9 % 12/05/21 23:46 Lymph % (Auto) 38.4 % 12/05/21 23:46 [place] % (Auto) 8.8 % 12/05/21 23:46 Eos % (Auto) 1.7 % 12/05/21 23:46 Baso % (Auto) 0.1 % 12/05/21 23:46 Neut # (Auto) 3.63 K/uL (1.4-6.5) 12/05/21 23:46 Lymph # (Auto) 2.74 K/uL (1.2-3.4) 12/05/21 23:46 [place] # (Auto) 0.63 K/uL (0.11-0.59) H 12/05/21 23:46 Eos # (Auto) 0.12 K/uL (0-0.5) 12/05/21 23:46 Baso # (Auto) 0.01 K/uL (0-0.2) 12/05/21 23:46 Immature Gran # (Auto) 0.01 K/uL (0.00-0.02) 12/05/21 23:46 Sodium 141 mmol/L (136-145) 12/05/21 23:46 Potassium 3.6 mmol/L (3.5-5.1) 12/05/21 23:46 Chloride 109 mmol/L (98-107) H 12/05/21 23:46 Carbon Dioxide 22 mmol/L (21-32) 12/05/21 23:46 Anion Gap 10 (3-11) 12/05/21 23:46 BUN 16 mg/dl (6-23) 12/05/21 23:46 Creatinine 1.03 mg/dl (0.6-1.2) 12/05/21 23:46 Est Cr Clr Drug Dosing 60.9 ml/min 12/05/21 23:46 Est GFR ( Amer) 67.0 ml/min 12/05/21 23:46 Est GFR (Non-Af Amer) 57.8 ml/min 12/05/21 23:46 BUN/Creatinine Ratio 15.5 (10-20) 12/05/21 23:46 Glucose 98 mg/dl (70-99(Fasting)) 12/05/21 23:46 Calcium 8.4 mg/dl (8.5-10.1) L 12/05/21 23:46 Magnesium 1.7 mg/dl (1.7-2.4) 12/05/21 23:46 Total Bilirubin 0.5 mg/dl (0.2-1.0) 12/05/21 23:46 AST 16 U/L (13-39) 12/05/21 23:46 ALT 12 U/L (7-52) 12/05/21 23:46 Alkaline Phosphatase 86 U/L (34-104) 12/05/21 23:46 Troponin I < 0.03 ng/ml (0-0.04) 12/05/21 23:46 Total Protein 6.1 gm/dl (6.0-8.3) 12/05/21 23:46 Albumin 3.7 gm/dl (3.4-5.0) 12/05/21 23:46 Globulin 2.4 gm/dl (2.5-4.0) L 12/05/21 23:46 Albumin/Globulin Ratio 1.5 (0.9-2) 12/05/21 23:46 Lipase 24 U/L (11-82) 12/05/21 23:46 SARS-CoV-2, RNA, NAAT NEGATIVE (NEGATIVE) 12/06/21 00:09 Diagnostic Findings Chest x-ray as per my interpretation cardiomegaly, right pleural effusion EKG as per my interpretation : Rate 115, A. fib, LAD, LAFB, RBBB, T wave abnormalities inferior and anterolateral leads (1) A-fib Atrial fibrillation type: longstanding persistent Qualified Code(s): I48.11 - Longstanding persistent atrial fibrillation
[2021-12-06] MEDS ORDERED: FOSAPREPITANT DIMEGLUMINE 150 MG in SODIUM CHLORIDE 0.9% 145 ML IV ONE (04:00)
[2021-12-06] MEDS ORDERED: METOPROLOL SUCC 50MG EXT REL TAB PO STA (05:02)
[2021-12-06] MEDS ORDERED: ACETAMINOPHEN 325 MG TAB PO PRN (05:07)
[2021-12-06] MEDS: LEVOTHYROXINE SODIUM 88 MCG TABLET PO SCH (06:13)
[2021-12-06] MEDS: PROMETHAZINE HCL 12.5 MG in SODIUM CHLORIDE 0.9% 50 ML IV PRN ×2 (07:09→22:51)
--- NOTE | 2021-12-06 08:00 | XRay Report ---
XR chest 1V portable CLINICAL HISTORY: Atypical chest pain. COMPARISON STUDY: Chest radiograph November 13, 2021. FINDINGS: Hyperdense material adjacent to the distal esophagus is again noted. A right subclavian Inf use-a-Port and left subclavian dual lead pacer are in place. Cardiomegaly is unchanged. There is no e vidence for pulmonary edema. No pneumothorax. Possible trace right pleural effusion. No consolidation to suggest pneumonia. IMPRESSION: No acute cardiopulmonary findings. No change in appearance of the chest. ACT 112: Negative or not required by law. Electronically signed by: Alex Moy M.D. 12/06/2021 7:59 AM
[2021-12-06] MEDS: CYANOCOBALAMIN (B-12) 500 MCG TABLET PO SCH (08:20)
[2021-12-06] MEDS: APIXABAN 5 MG TABLET PO SCH ×2 (08:21→20:08)
[2021-12-06] MEDS: PANTOprazole 40 MG TAB PO SCH ×2 (08:21→20:08)
[2021-12-06] MEDS: DICYCLOMINE HCL 10 MG CAP PO PRN ×2 (08:22→23:44)
--- NOTE | 2021-12-06 09:42 | Gastrointestinal Consultation ---
Date of Consultation December 06, 2021 Assessment & Plan (1) Nausea: 61 year old female with severe gastroparesis, admitted for flare of her nausea and pain. CTAP in November showed question of ileus. No repeat imaging this admission Would recommend a KUB, if abnormal, CTAP Clear liquid diet as tolerated Scheduled Emend Gastroparesis diet Follow up with Marilyn in office as scheduled to discuss next week Thank you for allowing us to participate in the care of this patient. Please call with any acute changes, questions or concerns. Please see addendum below with additional recommendation from my supervising physician. (2) Gastroparesis: Supervising Physician Co-Signing Physician Notes 61 yo fm with a history of sleeve gastrectomy 8 years ago with persistent issues of gastroparesis, af with cardioversion and pacer with abdominal pain and nausea/vomiting. PE - well nourished fm in nad, abd - soft nt nd Labs reviewed Agree with further plan of care as above. History of Present Illness Reason for Consultation: gastroparesis Requesting Physician: Taisha Attending Physician: Leonidas Sumner MD History of Present Illness 61 year old female with history of paraesophageal hernia s/p partial sleeve gastrectomy 8 years ago, gastroparesis since the time of her hernia repair, AF with RVR and failed cadioversion, s/p pacer admitted with abd pain and nausea. No vomiting. Notes her gastroparesis was worsening so sought care. Chronic loose stools, unchanged. No black or bloody stools. Was on scheduled emend Has Phenergan at home No longer using zofran or reglan Allergies Allergy/AdvReac Type Severity Reaction Status Date / Time adhesive Allergy Mild POWERS SKIN Verified 11/26/21 14:57 capsaicin Allergy Mild ITCHINESS Verified 11/26/21 14:57 amoxicillin AdvReac Intermediate yeast Verified 11/26/21 14:57 infection scopolamine AdvReac Intermediate rash from Verified 11/26/21 14:57 patch NSAIDS (Non-Steroidal AdvReac Mild indegestion Verified 11/26/21 14:57 Anti-Inflamma rofecoxib AdvReac Mild indigestion Verified 11/26/21 14:57 Home Medications Medication Instructions Recorded Confirmed Type pantoprazole 40 mg tablet,delayed 40 mg PO BID #60 tab 12/10/19 12/06/21 Rx release acetaminophen 500 mg tablet 1,000 mg PO Q6H PRN #60 tab 12/16/19 12/06/21 Rx (Tylenol Extra Strength) levothyroxine 88 mcg tablet 88 mcg PO QAM #30 tab 12/16/19 12/06/21 Rx (Synthroid) dicyclomine 10 mg capsule 10 mg PO BID PRN 12/17/19 12/06/21 History apixaban 5 mg tablet (Eliquis) 5 mg PO BID 10/02/21 12/06/21 History cyanocobalamin (vitamin B-12) 1,000 mcg PO DAILY 10/02/21 12/06/21 History 1,000 mcg tablet (Vitamin B-12) vitamins-iron fumarate 65 1 tab PO HS 10/02/21 12/06/21 History mg iron-folic acid 1 mg tablet metoprolol succinate 100 mg 100 mg PO BID #60 tab 11/18/21 12/06/21 Rx tablet,extended release 24 hr (Toprol XL) promethazine 25 mg tablet 25 mg PO Q6H PRN 10 Days #30 tab 11/29/21 12/06/21 Rx Patient History Medical History Acidosis, lactic Anxiety Asthma COPD (chronic obstructive pulmonary disease) COVID-19 COVID-19 Depression Diverticulosis Frequent PVCs Gastroparesis GERD (gastroesophageal reflux disease) H/O irritable bowel syndrome HTN (hypertension) Hypokalemia Hypomagnesemia Hypomagnesemia Hypophosphatemia Hypothyroidism Intractable nausea and vomiting Mitral regurgitation "moderate per echo 09/21/15" Neuropathy Paroxysmal A-fib Pemphigus vulgaris Prolonged QT interval Tobacco abuse Surgical History History of bladder surgery History of laparoscopic partial gastrectomy History of pyloroplasty History of total hysterectomy Hx of cholecystectomy Hx of tonsillectomy S/P hysterectomy S/P laparoscopic sleeve gastrectomy S/P partial gastrectomy S/P repair of paraesophageal hernia "resulted in volvulus, required abdominal exploration" S/P tonsillectomy and adenoidectomy Family History Mother DM type 2 (diabetes mellitus, type 2) Coronary heart disease Social History Smoking Status: Current every day smoker Tobacco Type: Cigarettes Cigarettes Per Day: 20; Second Hand Exposure: Yes; Hx Alcohol Use: Yes Alcohol type: beer Alcohol Intake Frequency Comment: 3-4 beers/week Hx Substance Use: No Preferred Language: Upper Sorbian Communication Ability: Effective Clinical Material Handler Required: No Beliefs That Will Affect Care: None marital status: Single Current Living Situation: Family Current Living Situation Comment: Lives with Daughter and her family in a mobile home How many Children do You have: 2 Other Information That Helps Us Care for You: No Feels Safe at Home: Yes Safety Concerns: Feels Safe At This Time Assistive Devices: None Review of Systems Review of Systems: All systems reviewed & are unremarkable except as noted in HPI & below Physical Exam Constitutional: WD/WN, vitals as above Neck: trachea midline, no thyromegaly Respiratory: normal respiratory effort, lungs clear to auscultation Cardiovascular: RRR, no murmur, no edema Gastrointestinal (Abdomen): normal bowel sounds, soft, nontender, no hepatosplenomegaly Skin: no rashes, warm and dry Results & Data ([facility]) Vital Signs (Past 12 Hours) Vital Signs Temp Pulse Pulse Resp BP BP Pulse Ox 12/06/21 07:54 36.4 C L 82 16 106/86 97 12/06/21 04:28 104 H 16 127/109 H 97 12/06/21 03:35 104 H 20 124/99 97 12/06/21 00:42 110 H 24 145/125 H 97 12/06/21 00:11 103 H 98 12/05/21 22:15 36 C L 120 H 16 130/90 96 Laboratory Results 12/06/21 12/05/21 12/05/21 Range/Units 00:09 23:48 23:46 WBC (4.8-10.8) K/uL RBC (4.2-5.4) M/uL Hgb (12.0-16.0) g/dL Hct (37-47) % MCV (80-100) fL MCH (25-34) pg MCHC (32-36) g/dL RDW Std Deviation (36.4-46.3) fL RDW Coeff of Ana M (11.5-14.5) % Plt Count (130-400) K/uL MPV (7.4-10.4) fL Immature Gran % (Auto) % Neut % (Auto) % Lymph % (Auto) % Bleck[place] % (Auto) % Eos % (Auto) % Baso % (Auto) % Neut # (Auto) (1.4-6.5) K/uL Lymph # (Auto) (1.2-3.4) K/uL [place] # (Auto) (0.11-0.59) K/uL Eos # (Auto) (0-0.5) K/uL Baso # (Auto) (0-0.2) K/uL Immature Gran # (Auto) (0.00-0.02) K/uL Sodium 141 (136-145) mmol/L Potassium 3.6 (3.5-5.1) mmol/L Chloride 109 H (98-107) mmol/L Carbon Dioxide 22 (21-32) mmol/L Anion Gap 10 (3-11) BUN 16 (6-23) mg/dl Creatinine 1.03 (0.6-1.2) mg/dl Est Cr Clr Drug Dosing 60.9 ml/min Est GFR ( Amer) 67.0 ml/min Est GFR (Non-Af Amer) 57.8 ml/min BUN/Creatinine Ratio 15.5 (10-20) Glucose 98 (70-99(Fasting)) mg/dl Calcium 8.4 L (8.5-10.1) mg/dl Magnesium 1.7 (1.7-2.4) mg/dl Total Bilirubin 0.5 (0.2-1.0) mg/dl AST 16 (13-39) U/L ALT 12 (7-52) U/L Alkaline Phosphatase 86 (34-104) U/L Troponin I < 0.03 (0-0.04) ng/ml Total Protein 6.1 (6.0-8.3) gm/dl Albumin 3.7 (3.4-5.0) gm/dl Globulin 2.4 L (2.5-4.0) gm/dl Albumin/Globulin Ratio 1.5 (0.9-2) Lipase 24 (11-82) U/L TSH 2.845 (0.300-4.500) uIu/ml SARS-CoV-2, RNA, NAAT NEGATIVE (NEGATIVE) 12/05/21 Range/Units 23:46 WBC 7.14 (4.8-10.8) K/uL RBC 4.50 (4.2-5.4) M/uL Hgb 11.1 L (12.0-16.0) g/dL Hct 34.8 L (37-47) % MCV 77.3 L (80-100) fL MCH 24.7 L (25-34) pg MCHC 31.9 L (32-36) g/dL RDW Std Deviation 45.0 (36.4-46.3) fL RDW Coeff of Ana M 15.8 H (11.5-14.5) % Plt Count 353 (130-400) K/uL MPV 10.1 (7.4-10.4) fL Immature Gran % (Auto) 0.1 % Neut % (Auto) 50.9 % Lymph % (Auto) 38.4 % Bleckley % (Auto) 8.8 % Eos % (Auto) 1.7 % Baso % (Auto) 0.1 % Neut # (Auto) 3.63 (1.4-6.5) K/uL Lymph # (Auto) 2.74 (1.2-3.4) K/uL Bleckley # (Auto) 0.63 H (0.11-0.59) K/uL Eos # (Auto) 0.12 (0-0.5) K/uL Baso # (Auto) 0.01 (0-0.2) K/uL Immature Gran # (Auto) 0.01 (0.00-0.02) K/uL Sodium (136-145) mmol/L Potassium (3.5-5.1) mmol/L Chloride (98-107) mmol/L Carbon Dioxide (21-32) mmol/L Anion Gap (3-11) BUN (6-23) mg/dl Creatinine (0.6-1.2) mg/dl Est Cr Clr Drug Dosing ml/min Est GFR ( Amer) ml/min Est GFR (Non-Af Amer) ml/min BUN/Creatinine Ratio (10-20) Glucose (70-99(Fasting)) mg/dl Calcium (8.5-10.1) mg/dl Magnesium (1.7-2.4) mg/dl Total Bilirubin (0.2-1.0) mg/dl AST (13-39) U/L ALT (7-52) U/L Alkaline Phosphatase (34-104) U/L Troponin I (0-0.04) ng/ml Total Protein (6.0-8.3) gm/dl Albumin (3.4-5.0) gm/dl Globulin (2.5-4.0) gm/dl Albumin/Globulin Ratio (0.9-2) Lipase (11-82) U/L TSH (0.300-4.500) uIu/ml SARS-CoV-2, RNA, NAAT (NEGATIVE)
[2021-12-06 10:20] LABS: BUN Creatinine Ratio 14.3 (10-20); Calcium 8.1 mg/dl (8.5-10.1); Creatinine Clr Calc Pharmacy 68.9 ml/min; Est GFR (African American) 77.8 ml/min; Est GFR (Non-African American) 67.1 ml/min; Potassium 4.1 mmol/L (3.5-5.1)
--- NOTE | 2021-12-06 16:14 | Hospitalist Progress Note ---
Date of Service December 06, 2021 Assessment & Plan (1) A-fib: Plan: A. 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 DVT Px: On Eliquis Code Status Full code Admission and Anticipated Discharge Date Admission Date: December 06, 2021 Subjective Patient is seen and examined at bedside States feeling tired, feels nauseous Also reports epigastric discomfort from dry heaving Denies any chest pain, dizziness, dyspnea Offers no other complaints Review of Systems Review of Systems: All systems reviewed & are unremarkable except as noted in Subjective Physical Exam Physical Exam: Physical Exam: Vitals signs as noted above General Appearance:Moderately built and nourished, no apparent distress Head: normocephalic, Atraumatic Eyes: normal inspection, EOMI Neck: supple, Trachea midline Respiratory/Chest: Normal breath sounds, CTA, No accessory muscle use Cardiovascular: Irregularly Irregular, No murmur Abdomen/GI:Soft, Non tender, Bowel sounds present Extremities/Musculoskeletal:normal inspection, no edema Neurologic/Psych:AAOX3, grossly no focal neurological deficits Skin: normal color, warm Results & Data Results & Data ([facility]) Vital Signs (Past 12 Hours) Vital Signs Temp Pulse Pulse Resp BP Pulse Ox 12/06/21 14:12 85 12/06/21 11:50 36.4 C L 98 H 16 112/83 97 12/06/21 07:54 36.4 C L 82 16 106/86 97 12/06/21 04:28 104 H 16 127/109 H 97 Laboratory Results Short CBC 12/05/21 Range/Units 23:46 WBC 7.14 (4.8-10.8) K/uL Hgb 11.1 L (12.0-16.0) g/dL Hct 34.8 L (37-47) % Plt Count 353 (130-400) K/uL BMP 12/05/21 12/06/21 23:46 09:36 Sodium 141 141 Potassium 3.6 4.1 Chloride 109 H 112 H Carbon Dioxide 22 22 BUN 16 13 Creatinine 1.03 0.91 Glucose 98 94 Calcium 8.4 L 8.1 L Cardiac Enzymes 12/05/21 Range/Units 23:46 Troponin I < 0.03 (0-0.04) ng/ml Liver Function 12/05/21 Range/Units 23:46 Total Bilirubin 0.5 (0.2-1.0) mg/dl AST 16 (13-39) U/L ALT 12 (7-52) U/L Alkaline Phosphatase 86 (34-104) U/L Albumin 3.7 (3.4-5.0) gm/dl (1) A-fib Atrial fibrillation type: longstanding persistent Qualified Code(s): I48.11 - Longstanding persistent atrial fibrillation
--- NOTE | 2021-12-06 17:22 | XRay Report ---
KUB HISTORY: nausea COMPARISON: Abdomen and pelvis CT 11/26/2021. FINDINGS: The bowel gas pattern is unremarkable. There are no dilated loops of small bowel to suggest an obstruction. No renal calculi. No ureteral calculi. Calcifications in the deep pelvis likely rep resent phleboliths. These remain unchanged. Small amount of well-formed stool seen within the colon. Prior cholecystectomy. Postoperative changes within the proximal stomach. Pacemaker wires are partial ly visualized. No pneumoperitoneum or pneumatosis. IMPRESSION: No evidence for bowel obstruction. ACT 112: Negative or not required by law. Electronically signed by: Radhames Jackson M.D. 12/06/2021 5:21 PM
[2021-12-06] MEDS: PRENATAL VITAMIN 1 TAB PO SCH (20:08)
[2021-12-07] MEDS: LEVOTHYROXINE SODIUM 88 MCG TABLET PO SCH (05:43)
--- NOTE | 2021-12-07 06:14 | Electrocardiogram Report ---
Test Reason : Blood Pressure : / mmHG Vent. Rate : 113 BPM Atrial Rate : 115 BPM P-R Int : 000 ms QRS Dur : 124 ms QT Int : 386 ms P-R-T Axes : 000 -18 -24 degrees QTc Int : 529 ms Atrial fibrillation with rapid ventricular response Right bundle branch block Moderate voltage criteria for LVH, may be normal variant Nonspecific ST and T wave abnormality Prolonged QT Abnormal ECG When compared with ECG of 27-NOV-2021 09:05, No significant change was found Confirmed by Chinmay Russo ([id number]) on 12/07/2021 6:14:29 AM Referred By: REFERRED SELF Confirmed By:Chinmay Russo
[2021-12-07 06:20] LABS: Basophils # (auto) 0.03 K/uL (0-0.2); Basophils % (auto) 0.7 %; Eosinophils # (auto) 0.17 K/uL (0-0.5); Eosinophils % (auto) 3.7 %; Hematocrit (blood only) 31.9 % (37-47); Hemoglobin 9.8 g/dL (12.0-16.0); Lymphocytes % (auto) 36.9 %; Mean Corpuscular Hemoglobin 24.1 pg (25-34); Mean Corpuscular Hgb Conc 30.7 g/dL (32-36); Mean Corpuscular Volume 78.6 fL (80-100); Mean Platelet Volume 9.9 fL (7.4-10.4); Monocytes # (auto) 0.34 K/uL (0.11-0.59); Monocytes % (auto) 7.4 %; Neutrophils # (auto) 2.37 K/uL (1.4-6.5); Neutrophils % (auto) 51.3 %; Platelet Count 291 K/uL (130-400); RDW Coefficient of Variation 16.1 % (11.5-14.5); RDW Standard Deviation 46.3 fL (36.4-46.3); Red Blood Count 4.06 M/uL (4.2-5.4); White Blood Count 4.61 K/uL (4.8-10.8)
[2021-12-07 07:02] LABS: BUN Creatinine Ratio 13.8 (10-20); Calcium 8.4 mg/dl (8.5-10.1); Creatinine Clr Calc Pharmacy 67.4 ml/min; Est GFR (African American) 74.8 ml/min; Est GFR (Non-African American) 64.6 ml/min; Potassium 4.2 mmol/L (3.5-5.1)
--- NOTE | 2021-12-07 09:16 | Gastroenterology Progress Note ---
Date of Service December 07, 2021 Assessment & Plan (1) Nausea: Plan: 61 year old female with severe gastroparesis, admitted for flare of her nausea and pain. CTAP in November showed question of ileus. KUB yesterday without obstructive findings Clear liquid diet as tolerated --> advance to gastroparesis diet as tolerated Scheduled Emend Gastroparesis diet Follow up with Marilyn in office as scheduled to discuss next week GI sign off. Thank you for allowing us to participate in the care of this patient. Please call with any acute changes, questions or concerns. Please see addendum below with additional recommendation from my supervising physician. (2) Gastroparesis: Admission and Anticipated Discharge Date Admission Date: December 06, 2021 Supervising Physician Co-Signing Physician Notes Complaining of mild flank pain after eating PE unchanged consider lipase Agree with further plan of care as above. Subjective Persistent nausea Tolerated clears No vomiting Does have upper abd pain. Review of Systems Review of Systems: All systems reviewed & are unremarkable except as noted in HPI & below Physical Exam Respiratory: normal respiratory effort, lungs clear to auscultation Cardiovascular: RRR, no murmur, no edema Gastrointestinal (Abdomen): normal bowel sounds, soft, nontender, no hepatosplenomegaly Results & Data ([facility]) Vital Signs (Past 12 Hours) Vital Signs Temp Pulse Pulse Resp BP Pulse Ox 12/07/21 08:25 36.5 C 105 H 18 108/78 99 12/07/21 04:49 90 12/07/21 03:55 36.9 C 91 H 20 129/89 97 12/06/21 23:12 36.8 C 83 18 106/75 96 12/06/21 22:00 98 H Laboratory Results 12/07/21 12/07/21 12/06/21 Range/Units 05:34 05:34 09:36 WBC 4.61 L (4.8-10.8) K/uL RBC 4.06 L (4.2-5.4) M/uL Hgb 9.8 L (12.0-16.0) g/dL Hct 31.9 L (37-47) % MCV 78.6 L (80-100) fL MCH 24.1 L (25-34) pg MCHC 30.7 L (32-36) g/dL RDW Std Deviation 46.3 (36.4-46.3) fL RDW Coeff of Ana M 16.1 H (11.5-14.5) % Plt Count 291 (130-400) K/uL MPV 9.9 (7.4-10.4) fL Immature Gran % (Auto) 0.0 % Neut % (Auto) 51.3 % Lymph % (Auto) 36.9 % [place]cl[place] % (Auto) 7.4 % Eos % (Auto) 3.7 % Baso % (Auto) 0.7 % Neut # (Auto) 2.37 (1.4-6.5) K/uL Lymph # (Auto) 1.70 (1.2-3.4) K/uL [place]clennan # (Auto) 0.34 (0.11-0.59) K/uL Eos # (Auto) 0.17 (0-0.5) K/uL Baso # (Auto) 0.03 (0-0.2) K/uL Immature Gran # (Auto) 0.00 (0.00-0.02) K/uL Sodium 142 141 (136-145) mmol/L Potassium 4.2 4.1 (3.5-5.1) mmol/L Chloride 112 H 112 H (98-107) mmol/L Carbon Dioxide 25 22 (21-32) mmol/L Anion Gap 5 7 (3-11) BUN 13 13 (6-23) mg/dl Creatinine 0.94 0.91 (0.6-1.2) mg/dl Est Cr Clr Drug Dosing 67.4 68.9 ml/min Est GFR ( Amer) 74.8 77.8 ml/min Est GFR (Non-Af Amer) 64.6 67.1 ml/min BUN/Creatinine Ratio 13.8 14.3 (10-20) Glucose 85 94 (70-99(Fasting)) mg/dl Calcium 8.4 L 8.1 L (8.5-10.1) mg/dl Magnesium 2.0 (1.7-2.4) mg/dl
[2021-12-07] MEDS: CYANOCOBALAMIN (B-12) 500 MCG TABLET PO SCH (09:36)
[2021-12-07] MEDS: APIXABAN 5 MG TABLET PO SCH ×2 (09:36→20:14)
[2021-12-07] MEDS: PANTOprazole 40 MG TAB PO SCH ×2 (09:37→20:15)
[2021-12-07] MEDS: METOPROLOL SUCC 50MG EXT REL TAB PO SCH ×2 (09:37→20:15)
[2021-12-07] MEDS: PROMETHAZINE HCL 12.5 MG in SODIUM CHLORIDE 0.9% 50 ML IV PRN (09:38)
--- NOTE | 2021-12-07 12:51 | Hospitalist Progress Note ---
Date of Service December 07, 2021 Assessment & Plan (1) A-fib: Plan: A. fib RVR H/O SSS S/P PPM On Eliquis for anticoagulation Rate controlled on metoprolol Intractable nausea History of severe gastroparesis No evidence of bowel obstruction in abd Xray Advance diet as tolerated Continue antiemetics GI recommendations appreciated Needs follow-up with gastroenterology upon discharge Hypothyroidism Continue Levothyroxine COPD No signs of exacerbation Anxiety, depression At baseline Chronic anemia Monitor Hb Ongoing tobacco abuse Smoking cessation counselling provided DVT Px: On Eliquis Code Status Full code Admission and Anticipated Discharge Date Admission Date: December 06, 2021 Subjective Patient seen and examined Reports persistent nausea and intermittent abd pain Denied any fevers, chills Denied any chest pain, shortness of breath, cough Denied any dysuria, freq, urgency Denied diarrhea, constipation Physical Exam Constitutional: + well hydrated and + obese; no acute distress Eyes: PERRL, conjunctivae normal, anicteric sclerae ENMT: external ear and nose normal, oropharynx normal Respiratory: normal respiratory effort, lungs clear to auscultation Cardiovascular: Rate/Rhythm: + irregularly irregular S1 S2 Gastrointestinal (Abdomen): normal bowel sounds, soft, nontender, no hepatosplenomegaly Musculoskeletal: no cyanosis or clubbing, extremities motor strength 5/5 Neurologic: PERRL, EOMI, accommodation nl, no face palsy, no dysarthria Psychiatric: A+Ox3, euthymic affect Results & Data Results & Data ([facility]) Vital Signs (Past 12 Hours) Vital Signs Temp Pulse Pulse Resp BP Pulse Ox 12/07/21 08:25 36.5 C 105 H 18 108/78 99 12/07/21 04:49 90 12/07/21 03:55 36.9 C 91 H 20 129/89 97 Laboratory Results Abnormal lab results 12/07/21 12/07/21 Range/Units 05:34 05:34 WBC 4.61 L (4.8-10.8) K/uL RBC 4.06 L (4.2-5.4) M/uL Hgb 9.8 L (12.0-16.0) g/dL Hct 31.9 L (37-47) % MCV 78.6 L (80-100) fL MCH 24.1 L (25-34) pg MCHC 30.7 L (32-36) g/dL RDW Coeff of Ana M 16.1 H (11.5-14.5) % Chloride 112 H (98-107) mmol/L Calcium 8.4 L (8.5-10.1) mg/dl (1) A-fib Atrial fibrillation type: longstanding persistent Qualified Code(s): I48.11 - Longstanding persistent atrial fibrillation
[2021-12-07] MEDS ORDERED: FOSAPREPITANT DIMEGLUMINE 150 MG in SODIUM CHLORIDE 0.9% 145 ML IV ONE (13:15)
[2021-12-07] MEDS: DICYCLOMINE HCL 10 MG CAP PO PRN (13:16)
[2021-12-07] MEDS: PRENATAL VITAMIN 1 TAB PO SCH (20:15)
[2021-12-08] MEDS ORDERED: LORazepam 2 MG/1 ML VIAL IV STA (00:28)
[2021-12-08] MEDS: PROMETHAZINE HCL 12.5 MG in SODIUM CHLORIDE 0.9% 50 ML IV PRN ×2 (00:32→12:14)
[2021-12-08] MEDS: LEVOTHYROXINE SODIUM 88 MCG TABLET PO SCH (06:29)
[2021-12-08 06:46] LABS: Hematocrit (blood only) 32.8 % (37-47); Hemoglobin 10.1 g/dL (12.0-16.0); Mean Corpuscular Hgb Conc 30.8 g/dL (32-36); Mean Corpuscular Volume 78.1 fL (80-100); Mean Platelet Volume 10.1 fL (7.4-10.4); Platelet Count 287 K/uL (130-400); RDW Coefficient of Variation 15.9 % (11.5-14.5); RDW Standard Deviation 45.4 fL (36.4-46.3); White Blood Count 4.47 K/uL (4.8-10.8)
[2021-12-08 07:11] LABS: BUN Creatinine Ratio 14.4 (10-20); Calcium 8.3 mg/dl (8.5-10.1); Creatinine Clr Calc Pharmacy 66.6 ml/min; Est GFR (Non-African American) 62.2 ml/min; Potassium 3.8 mmol/L (3.5-5.1)
[2021-12-08] MEDS: APIXABAN 5 MG TABLET PO SCH ×2 (08:14→20:19)
[2021-12-08] MEDS: CYANOCOBALAMIN (B-12) 500 MCG TABLET PO SCH (08:14)
[2021-12-08] MEDS: METOPROLOL SUCC 50MG EXT REL TAB PO SCH ×2 (08:15→20:19)
[2021-12-08] MEDS: PANTOprazole 40 MG TAB PO SCH ×2 (08:15→20:19)
[2021-12-08] MEDS: DICYCLOMINE HCL 10 MG CAP PO PRN ×2 (08:16→20:19)
[2021-12-08] MEDS: HEPARIN 100 UNIT/ML 5ML FLUSH FLUSH PRN (11:15)
--- NOTE | 2021-12-08 12:38 | Hospitalist Progress Note ---
Date of Service December 08, 2021 Assessment & Plan (1) A-fib: Plan: A. fib RVR H/O SSS S/P PPM On Eliquis for anticoagulation Rate controlled on metoprolol Intractable nausea History of severe gastroparesis No evidence of bowel obstruction in abd Xray Continue antiemetics Give IV emend GI recommendations appreciated Needs follow-up with gastroenterology upon discharge Hypothyroidism Continue Levothyroxine COPD No signs of exacerbation Anxiety, depression At baseline Chronic anemia Monitor Hb Ongoing tobacco abuse Smoking cessation counselling provided DVT Px: On Eliquis Code Status Full code Will keep patient another night to optimize symptom control and ensure optimal po intake prior to dc Downgrade to med tele Admission and Anticipated Discharge Date Admission Date: December 06, 2021 Subjective Patient seen and examined Reported she felt better yesterday evening after getting Emend. Tolerated dinner and breakfast very well. However, nausea and abd pain started again with lunch today. Has been heaving since Denied any fevers, chills Denied any chest pain, shortness of breath, cough Denied any dysuria, freq, urgency Denied diarrhea, constipation Physical Exam Constitutional: + well hydrated and + obese; no acute distress Eyes: PERRL, conjunctivae normal, anicteric sclerae ENMT: external ear and nose normal, oropharynx normal Respiratory: normal respiratory effort, lungs clear to auscultation Cardiovascular: Rate/Rhythm: + irregularly irregular S1 S2 Gastrointestinal (Abdomen): normal bowel sounds, soft, nontender, no hepatosplenomegaly Musculoskeletal: no cyanosis or clubbing, extremities motor strength 5/5 Neurologic: PERRL, EOMI, accommodation nl, no face palsy, no dysarthria Psychiatric: A+Ox3, euthymic affect Results & Data Results & Data ([facility]) Vital Signs (Past 12 Hours) Vital Signs Temp Pulse Pulse Resp BP Pulse Ox Pulse Ox 12/08/21 07:28 36.5 C 85 18 126/92 99 12/08/21 05:38 100 H 12/08/21 05:00 96 12/08/21 04:15 36.6 C 85 18 113/91 97 Laboratory Results Abnormal lab results 12/08/21 12/08/21 Range/Units 06:22 06:22 WBC 4.47 L (4.8-10.8) K/uL Hgb 10.1 L (12.0-16.0) g/dL Hct 32.8 L (37-47) % MCV 78.1 L (80-100) fL MCH 24.0 L (25-34) pg MCHC 30.8 L (32-36) g/dL RDW Coeff of Ana M 15.9 H (11.5-14.5) % Chloride 110 H (98-107) mmol/L Calcium 8.3 L (8.5-10.1) mg/dl (1) A-fib Atrial fibrillation type: longstanding persistent Qualified Code(s): I48.11 - Longstanding persistent atrial fibrillation
[2021-12-08] MEDS ORDERED: FOSAPREPITANT DIMEGLUMINE 150 MG in SODIUM CHLORIDE 0.9% 145 ML IV ONE (16:00)
[2021-12-08] MEDS: PRENATAL VITAMIN 1 TAB PO SCH (20:19)
[2021-12-09] MEDS: PROMETHAZINE HCL 12.5 MG in SODIUM CHLORIDE 0.9% 50 ML IV PRN ×2 (00:35→12:51)
[2021-12-09] MEDS: HEPARIN 100 UNIT/ML 5ML FLUSH FLUSH PRN ×3 (00:50→12:52)
[2021-12-09] MEDS ORDERED: ONDANSETRON INJ 2 MG/ML 2 ML VIAL IV STA (03:55)
[2021-12-09] MEDS ORDERED: FAMOTIDINE 20 MG in SYRINGE 3 ML IV STA (03:58)
[2021-12-09 06:05] LABS: BUN Creatinine Ratio 14.7 (10-20); Calcium 8.3 mg/dl (8.5-10.1); Creatinine Clr Calc Pharmacy 63.3 ml/min; Est GFR (African American) 67.8 ml/min; Est GFR (Non-African American) 58.5 ml/min; Magnesium 1.9 mg/dl (1.7-2.4); Potassium 3.6 mmol/L (3.5-5.1)
[2021-12-09] MEDS: LEVOTHYROXINE SODIUM 88 MCG TABLET PO SCH (06:08)
[2021-12-09] MEDS: CYANOCOBALAMIN (B-12) 500 MCG TABLET PO SCH (08:03)
[2021-12-09] MEDS: METOPROLOL SUCC 50MG EXT REL TAB PO SCH (08:03)
[2021-12-09] MEDS: APIXABAN 5 MG TABLET PO SCH (08:04)
[2021-12-09] MEDS: PANTOprazole 40 MG TAB PO SCH (08:04)
--- NOTE | 2021-12-09 16:21 | Discharge Summary ---
Date of Service December 09, 2021 Admission HPI Per Admitting Provider History obtained from patient and records. Medical history significant for SSS status post PPM on Eliquis, gastroparesis, hypothyroidism, COPD, chronic anemia (baseline hemoglobin of 10-11), anxiety, depression, ongoing tobacco abuse Three confinements since September 2021. Last confinement last week for gastroparesis flareup. Patient seen by GI during confinement. Yesterday around 11 AM, patient noted epigastric pain, nausea symptoms reminiscent of gastroparesis attacks. Patient unable to vomit. No chest pain, no S OB, no cough symptoms. Intractable discomfort at the ER. MEDICAL HISTORY: As above. SURGERIES: PPM, A-port placement, oophorectomy, hysterectomy, bladder surgery, gastrectomy, tonsillectomy, adenectomy, hernia repair. FAMILY HISTORY: Thyroid disease, heart disease. PERSONAL SOCIAL HISTORY: Pack daily. No chronic intake of alcoholic beverages. Disabled. Admission Exam Per Admitting Provider GENERAL: uncomfortable, obese, no respiratory distress SKIN: Pallor, warm HEENT: Pale palpebral conjunctivae, no ptosis, dry buccal mucosa NECK : Supple, short neck, no tenderness CHEST : Decreased breath sounds , no tenderness HEART : Irregular, tachycardic, systolic murmur ABDOMEN: Some distention, minimal epigastric tenderness EXTREMITIES : No LE swelling/tenderness, no other conspicuous deformities noted NEUROLOGIC : Coherent, no facial asymmetry, no other gross focality Principal Diagnosis Intractable nausea Gastroparesis AFib with Rapid Ventricular rate Discharge Exam Constitutional + well hydrated and + obese; no acute distress Eyes PERRL, conjunctivae normal, anicteric sclerae ENMT external ear and nose normal, oropharynx normal Respiratory normal respiratory effort, lungs clear to auscultation Cardiovascular Rate/Rhythm: + irregularly irregular S1 S2 Gastrointestinal (Abdomen) normal bowel sounds, soft, nontender, no hepatosplenomegaly Musculoskeletal no cyanosis or clubbing, extremities motor strength 5/5 Neurologic PERRL, EOMI, accommodation nl, no face palsy, no dysarthria Psychiatric A+Ox3, euthymic affect Discharge Data Allergies Allergy/AdvReac Type Severity Reaction Status Date / Time adhesive Allergy Mild POWERS SKIN Verified 11/26/21 14:57 capsaicin Allergy Mild ITCHINESS Verified 11/26/21 14:57 amoxicillin AdvReac Intermediate yeast Verified 11/26/21 14:57 infection scopolamine AdvReac Intermediate rash from Verified 11/26/21 14:57 patch NSAIDS (Non-Steroidal AdvReac Mild indegestion Verified 11/26/21 14:57 Anti-Inflamma rofecoxib AdvReac Mild indigestion Verified 11/26/21 14:57 Consultations 12/06/21 09:09 Consult Gastroenterology Routine Hospital Course (1) A-fib: A. fib RVR H/O SSS S/P PPM On Eliquis for anticoagulation Rate controlled on metoprolol Intractable nausea and abdominal pain History of severe gastroparesis No evidence of bowel obstruction in abd Xray Was managed with IV antiemetics Symptoms resolved. Continue home promethazine prn Needs follow-up with gastroenterology Hypothyroidism Continue Levothyroxine COPD No signs of exacerbation Anxiety, depression At baseline Chronic anemia Monitor Hb Ongoing tobacco abuse Smoking cessation counselling provided Total Time Total Time Spent Total Time Spent (In Minutes): 40 Total Time Includes: Examination of the Patient, Discharge Planning and Medication Reconciliation Discharge Plan Discharge Items Patient Disposition: Home - Self-Care Reason For Visit: Abdominal pain and nausea Discharge Diagnosis: Intractable nausea Gastroparesis AFib with Rapid Ventricular rate Activity: Resume your previous activity Non-emergency contact: Primary Care Provider and Medical Registrar Call non-emergency contact if: you have any medication questions and your symptoms worsen Follow-up/Referrals: Jaleel Coppola MD [Primary Care Provider] - 12/14/21 11:20 am (Date & Time 12/14/2021 11:20 AM Provider Thom Kwon MD Department Family Medicine [facility] ) Marilyn Gonzalez CRNP [Nurse Practitioner] - 12/15/21 10:00 am (Date & Time 12/15/2021 10:00 AM Provider VANIA Quintanilla Department Gastroenterology, [facility] ) Diet: Heart Healthy Addtl Attending Provider Instructions: Mrs Delarosa You came to the hospital complaining of abdominal pain and nausea. This is due to your gastroparesis. This was managed with medications. You are being discharged home. Please ensure follow up with your Primary Doctor and Medical Registrar. It was a pleasure taking care of you. Pending Studies at Discharge: No Stand-Alone Forms: [facility] [employer], Smoking Cessation Medications and DC Order Prescriptions: Continued dicyclomine 10 mg capsule 10 mg PO BID PRN (Reason: Abdominal Discomfort) RF: 0 pantoprazole 40 mg Tablet,Delayed Release (Dr/Ec) 40 mg PO BID Qty: 60 RF: 0 acetaminophen [Tylenol Extra Strength] 500 mg Tablet 1,000 mg PO Q6H PRN (Reason: Fever Or Pain) Qty: 60 RF: 0 levothyroxine [Synthroid] 88 mcg tablet 88 mcg PO QAM Qty: 30 RF: 0 cyanocobalamin (vitamin B-12) [Vitamin B-12] 1,000 mcg Tablet 1,000 mcg PO DAILY RF: 0 vit-iron fum-folic ac 65 mg iron- 1 mg Tablet 1 tab PO HS RF: 0 Eliquis 5 mg tablet 5 mg PO BID RF: 0 promethazine 25 mg tablet 25 mg PO Q6H PRN (Reason: Nausea) 10 Days Qty: 30 RF: 0 metoprolol succinate [Toprol XL] 100 mg tablet extended release 24 hr 100 mg PO BID Qty: 60 RF: 0 Discharge Orders: Discharge Order (Routine); Ordered 12/09/21 Ordered By: Keisha Beaver Admission Data Admit Date/Time: 12/08/21 12:37 Attending Provider: Keisha Beaver I. Admit Provider: Genaro Bradford Primary Care Provider: Jlaeel Coppola Other Providers: Yuli Turner ; Leonidas Sumner Other Interventions: Discharge Summary Assessment (RN) Last Done: 12/09/21 16:29
== END 2021-12-09 16:57 | disposition home or self-care (01) ==
LOC: ED 22:25 → 2S 22:25 → SUATTDRO 12-06 03:07 → 2S 12-06 04:46 → 3N 12-08 21:49

== ENCOUNTER 2021-12-29 11:34 | Observation (INO) ==
[2021-12-29] MEDS ORDERED: methylPREDNISolone 125 MG/2 ML VIAL IV STA (11:47)
[2021-12-29] MEDS ORDERED: LORazepam 2 MG/1 ML VIAL IV STA (11:47)
[2021-12-29] MEDS ORDERED: ALBUT/IPRATROP 3MG/0.5MG NEB 3 ML VIAL NEB STA (11:47)
[2021-12-29] MEDS ORDERED: METOCLOPRAMIDE HCL INJ 5 MG/ML 2 ML VIAL IV ONE ×2 (11:52→13:49)
[2021-12-29] MEDS ORDERED: diphenhydrAMINE 50 MG/ML VIAL IV STA (11:52)
--- NOTE | 2021-12-29 12:01 | Emergency Department Note ---
History of Present Illness General Chief complaint: Shortness of Breath/Dyspnea Time Seen by Provider: 12/29/21 11:41 History of Present Illness Provider complaint: Suppressed nausea and vomiting Onset (ago): day(s) 3 Associated symptoms: + cough, + nausea/vomiting and + shortness of breath; no chest pain or no fever/chills 61-year-old female with history of COPD who is actively smoking anticoagulated with Eliquis and history of gastroparesis presents emergency department for shortness of breath as well as nausea and vomiting. Patient reports her symptoms began 3 days ago. Patient reports she has been having increased nausea and vomiting. She states she has no hematemesis coffee-ground emesis or bilious vomiting. Patient also reports shortness of breath. She reports she has been wheezing. She states breathing treatments have not helped her. She states no chest pain. No hemoptysis. No recent travel. No exogenous hormone usage. Home Medications Medication Instructions Recorded Confirmed Type acetaminophen 500 mg tablet 1,000 mg PO Q6H PRN #60 tab 12/16/19 12/29/21 Rx (Tylenol Extra Strength) levothyroxine 88 mcg tablet 88 mcg PO QAM #30 tab 12/16/19 12/29/21 Rx (Synthroid) dicyclomine 10 mg capsule 10 mg PO BID PRN 12/17/19 12/29/21 History apixaban 5 mg tablet (Eliquis) 5 mg PO BID 10/02/21 12/29/21 History cyanocobalamin (vitamin B-12) 1,000 mcg PO DAILY 10/02/21 12/29/21 History 1,000 mcg tablet (Vitamin B-12) vitamins-iron fumarate 65 1 tab PO HS 10/02/21 12/29/21 History mg iron-folic acid 1 mg tablet metoprolol succinate 100 mg 100 mg PO BID #60 tab 11/18/21 12/29/21 Rx tablet,extended release 24 hr (Toprol XL) promethazine 25 mg tablet 25 mg PO Q6H PRN 10 Days #30 tab 12/09/21 12/29/21 Rx aprepitant 80 mg capsule 80 mg PO WK PRN 12/29/21 12/29/21 History colestipol 1 gram tablet 1 g PO AMHS 12/29/21 12/29/21 History metoclopramide HCl 10 mg tablet 10 mg PO TID 12/29/21 12/29/21 History omeprazole 20 mg capsule,delayed 20 mg PO AMHS 12/29/21 12/29/21 History release Allergies Allergy/AdvReac Type Severity Reaction Status Date / Time adhesive Allergy Mild POWERS SKIN Verified 12/29/21 12:43 capsaicin Allergy Mild ITCHINESS Verified 12/29/21 12:43 amoxicillin AdvReac Intermediate yeast Verified 12/29/21 12:43 infection scopolamine AdvReac Intermediate rash from Verified 12/29/21 12:43 patch NSAIDS (Non-Steroidal AdvReac Mild indegestion Verified 12/29/21 12:43 Anti-Inflamma rofecoxib AdvReac Mild indigestion Verified 12/29/21 12:43 Past Med/Surg History Medical History Acidosis, lactic Anxiety Asthma COPD (chronic obstructive pulmonary disease) COVID-19 COVID-19 Depression Diverticulosis Frequent PVCs Gastroparesis GERD (gastroesophageal reflux disease) H/O irritable bowel syndrome HTN (hypertension) Hypokalemia Hypomagnesemia Hypomagnesemia Hypophosphatemia Hypothyroidism Intractable nausea and vomiting Intractable vomiting with nausea Mitral regurgitation "moderate per echo 09/21/15" Nausea & vomiting Neuropathy Pemphigus vulgaris Prolonged QT interval Tobacco abuse Surgical History History of bladder surgery History of laparoscopic partial gastrectomy History of pyloroplasty History of total hysterectomy Hx of cholecystectomy Hx of tonsillectomy S/P hysterectomy S/P laparoscopic sleeve gastrectomy S/P partial gastrectomy S/P repair of paraesophageal hernia "resulted in volvulus, required abdominal exploration" S/P tonsillectomy and adenoidectomy Status post cardiac pacemaker procedure Family History Mother DM type 2 (diabetes mellitus, type 2) Coronary heart disease Social History Smoking Status: Smoker, status unknown Tobacco Type: Cigarettes Cigarettes Per Day: 20; Second Hand Exposure: Yes; Hx Alcohol Use: Yes Alcohol type: beer Alcohol Intake Frequency Comment: 3-4 beers/week Hx Substance Use: No Preferred Language: Cambodian Communication Ability: Effective Storage Battery Tester Required: No Beliefs That Will Affect Care: None marital status: Single Current Living Situation: Family Current Living Situation Comment: Lives with Daughter and her family in a mobile home How many Children do You have: 1 Feels Safe at Home: Yes Assistive Devices: Glasses Review of Systems A total of 10 systems reviewed and were otherwise negative Physical Exam Vital Signs Vital Signs - 24 hr 12/29/21 11:47 12/29/21 11:48 12/29/21 14:00 Temperature 37.1 C Temperature Source Oral Pulse Rate 98 H Pulse Rate [Right Finger] 97 H Pulse Rhythm Regular Pulse Rhythm [Right Finger] Irregular Pulse Strength Normal Pulse Strength [Right Finger] Normal Respiratory Rate 18 18 Respiratory Effort / Characteristics Non-Labored Non-Labored Respiratory Depth Normal Normal Respiratory Pattern Regular Regular Blood Pressure 150/124 H Blood Pressure [Right Arm] 145/116 H Blood Pressure Mean 132 Blood Pressure Mean [Right Arm] 125 Blood Pressure Position Lying Blood Pressure Position [Right Arm] Lying Pulse Oximetry 99 99 97 Oxygen Delivery Method Room Air Room Air Room Air Sepsis Recent Fever Within 48 Hours No Sepsis New/Unexplained Change in Mental Status No Sepsis Action Taken by Nursing No Action Required Physical Exam GENERAL: Patient holding emesis bag. HENT: Exam performed. -Head: Normocephalic and atraumatic. -Right Ear: External ear normal. No mastoid tenderness. -Left Ear: External ear normal. No mastoid tenderness. -Mouth/Throat: The oropharynx is clear and moist. No trismus in the jaw. No dental abscesses or uvula swelling. No oropharyngeal exudate or tonsillar abscesses. EYES: Conjunctivae and EOM are normal. Pupils are equal, round, and reactive to light. Right eye exhibits no discharge. Left eye exhibits no discharge. No scleral icterus. NECK: Normal range of motion. Neck supple. No JVD present. No spinous process tenderness present. No carotid bruit present. No rigidity. No tracheal deviation and normal range of motion present. No Brudzinski's sign and no Kernig's sign noted. CV: Tachycardic rate, irregular rhythm, normal heart sounds and intact distal pulses. There is no peripheral edema. Palpable radial pulses bue. PULM/CHEST: Tachypneic. Scant expiratory wheezes. -Chest Wall: She exhibits no tenderness. Mediport in place. ABD: The abdomen is soft. Bowel sounds are normal. She has no distension. No mass is present. There is no tenderness. There is no rebound, no guarding, no Tolentino's sign and no tenderness at McBurney's point. Rovsig negative MUSC/SKEL: Normal range of motion. There is no peripheral edema, tenderness or deformity. LYMPH: No cervical adenopathy. NEURO: She is alert and oriented to person, place, and time. She has normal strength. No cranial nerve deficit or sensory deficit. GCS eye subscore is 4. GCS verbal subscore is 5. GCS motor subscore is 6. Cerebellar tests wnl. SKIN: Skin is warm and dry. She is not diaphoretic. PSYCH: She has a normal mood and affect. Behavior is normal. Judgment and thought content normal. Course Course 1141: The patient was evaluated in room B6. A complete history and physical exam was performed Cardiac monitoring: An order was placed for continuous cardiac monitoring. The monitor shows a rate of 110-115 with atrial fibrilation rhythm 1349: Vital signs stable. On reassessment patient's lungs have improved and she is no longer wheezing. Patient still reports nausea and some vomiting. Labs are within normal limits. Imaging shows ileus. Patient states she does not feel comfortable going home and wants to be admitted to the hospital. [facility] hospitalist team will be contacted. Administered Medications Sodium Chloride (Nss) 500 mls @ 125 mls/hr IV .Q4H [facility] Stop: 01/28/22 11:59 Last Admin: 12/29/21 12:24 Dose: 125 mls/hr Documented by: [id number] Discontinued Medications Albuterol (Albut/Ipratrop 3mg/0.5mg Neb 3 Ml Vial) 3 ml NEB NOW STA; Protocol Stop: 12/29/21 11:48 Last Admin: 12/29/21 12:23 Dose: 3 ml Documented by: [id number] Diphenhydramine HCl (Diphenhydramine 50 Mg/Ml Vial) 25 mg IV NOW STA Stop: 12/29/21 11:53 Last Admin: 12/29/21 12:23 Dose: 25 mg Documented by: [id number] Lorazepam (Lorazepam 2 Mg/1 Ml Vial) 0.5 mg IV NOW STA Stop: 12/29/21 11:48 Last Admin: 12/29/21 12:23 Dose: 0.5 mg Documented by: [id number] Methylprednisolone (Methylprednisolone 125 Mg/2 Ml Vial) 125 mg IV NOW STA Stop: 12/29/21 11:48 Last Admin: 12/29/21 12:23 Dose: 125 mg Documented by: [id number] Metoclopramide HCl (Metoclopramide Hcl Inj 5 Mg/Ml 2 Ml Vial) 5 mg IV ONE ONE Stop: 12/29/21 11:53 Last Admin: 12/29/21 12:24 Dose: 5 mg Documented by: [id number] Metoclopramide HCl (Metoclopramide Hcl Inj 5 Mg/Ml 2 Ml Vial) 2.5 mg IV ONE ONE Stop: 12/29/21 13:50 Last Admin: 12/29/21 14:38 Dose: 2.5 mg Documented by: [id number] Medical Decision Making Laboratory Data Result diagrams: 12/29/21 12:03 12/29/21 12:03 Lab Results 12/29/21 12/29/21 12/29/21 Range/Units 12:03 12:03 12:03 WBC 9.46 (4.8-10.8) K/uL RBC 4.20 (4.2-5.4) M/uL Hgb 10.1 L (12.0-16.0) g/dL Hct 32.3 L (37-47) % MCV 76.9 L (80-100) fL MCH 24.0 L (25-34) pg MCHC 31.3 L (32-36) g/dL RDW Std Deviation 48.1 H (36.4-46.3) fL RDW Coeff of Ana M 18.2 H (11.5-14.5) % Plt Count 274 (130-400) K/uL MPV 9.9 (7.4-10.4) fL Immature Gran % (Auto) 0.1 % Neut % (Auto) 71.5 % Lymph % (Auto) 20.9 % [place] % (Auto) 6.6 % Eos % (Auto) 0.8 % Baso % (Auto) 0.1 % Neut # (Auto) 6.76 H (1.4-6.5) K/uL Lymph # (Auto) 1.98 (1.2-3.4) K/uL [place] # (Auto) 0.62 H (0.11-0.59) K/uL Eos # (Auto) 0.08 (0-0.5) K/uL Baso # (Auto) 0.01 (0-0.2) K/uL Immature Gran # (Auto) 0.01 (0.00-0.02) K/uL PT 10.9 (9.0-12.0) Seconds INR 1.0 (0.9-1.1) APTT 28.1 (21.0-31.0) Seconds PTT Ratio 1.0 VBG pH (7.36-7.41) VBG pCO2 (38-50) mmHg VBG pO2 mmHg VBG HCO3 mmol/L VBG O2 Saturation % VBG Base Excess mEq/L Barometric Pressure mm/Hg Sodium 143 (136-145) mmol/L Potassium 3.5 (3.5-5.1) mmol/L Chloride 112 H (98-107) mmol/L Carbon Dioxide 22 (21-32) mmol/L Anion Gap 9 (3-11) BUN 15 (6-23) mg/dl Creatinine 0.86 (0.6-1.2) mg/dl Est Cr Clr Drug Dosing 71.8 ml/min Est GFR ( Amer) 83.3 ml/min Est GFR (Non-Af Amer) 71.9 ml/min BUN/Creatinine Ratio 17.4 (10-20) Glucose 96 (70-99(Fasting)) mg/dl POC Glucose (70-99) mg/dl Calcium 8.3 L (8.5-10.1) mg/dl Magnesium 2.0 (1.7-2.4) mg/dl Total Bilirubin 0.4 (0.2-1.0) mg/dl Direct Bilirubin 0.1 (0-0.2) mg/dl AST 36 (13-39) U/L ALT 31 (7-52) U/L Alkaline Phosphatase 101 (34-104) U/L Troponin I < 0.03 (0-0.04) ng/ml B-Natriuretic Peptide (0-100) pg/ml Total Protein 6.0 (6.0-8.3) gm/dl Albumin 3.6 (3.4-5.0) gm/dl Lipase 20 (11-82) U/L SARS-CoV-2, RNA, NAAT (NEGATIVE) 12/29/21 12/29/21 12/29/21 Range/Units 12:03 12:03 12:03 WBC (4.8-10.8) K/uL RBC (4.2-5.4) M/uL Hgb (12.0-16.0) g/dL Hct (37-47) % MCV (80-100) fL MCH (25-34) pg MCHC (32-36) g/dL RDW Std Deviation (36.4-46.3) fL RDW Coeff of Ana M (11.5-14.5) % Plt Count (130-400) K/uL MPV (7.4-10.4) fL Immature Gran % (Auto) % Neut % (Auto) % Lymph % (Auto) % [place] % (Auto) % Eos % (Auto) % Baso % (Auto) % Neut # (Auto) (1.4-6.5) K/uL Lymph # (Auto) (1.2-3.4) K/uL [place] # (Auto) (0.11-0.59) K/uL Eos # (Auto) (0-0.5) K/uL Baso # (Auto) (0-0.2) K/uL Immature Gran # (Auto) (0.00-0.02) K/uL PT (9.0-12.0) Seconds INR (0.9-1.1) APTT (21.0-31.0) Seconds PTT Ratio VBG pH 7.41 (7.36-7.41) VBG pCO2 37 L (38-50) mmHg VBG pO2 33 mmHg VBG HCO3 23 mmol/L VBG O2 Saturation < 60.0 % VBG Base Excess -1.5 mEq/L Barometric Pressure 723.5 mm/Hg Sodium (136-145) mmol/L Potassium (3.5-5.1) mmol/L Chloride (98-107) mmol/L Carbon Dioxide (21-32) mmol/L Anion Gap (3-11) BUN (6-23) mg/dl Creatinine (0.6-1.2) mg/dl Est Cr Clr Drug Dosing ml/min Est GFR ( Amer) ml/min Est GFR (Non-Af Amer) ml/min BUN/Creatinine Ratio (10-20) Glucose (70-99(Fasting)) mg/dl POC Glucose (70-99) mg/dl Calcium (8.5-10.1) mg/dl Magnesium (1.7-2.4) mg/dl Total Bilirubin (0.2-1.0) mg/dl Direct Bilirubin (0-0.2) mg/dl AST (13-39) U/L ALT (7-52) U/L Alkaline Phosphatase (34-104) U/L Troponin I (0-0.04) ng/ml B-Natriuretic Peptide 825 H (0-100) pg/ml Total Protein (6.0-8.3) gm/dl Albumin (3.4-5.0) gm/dl Lipase Cancelled (11-82) U/L SARS-CoV-2, RNA, NAAT (NEGATIVE) 12/29/21 12/29/21 Range/Units 12:17 12:22 WBC (4.8-10.8) K/uL RBC (4.2-5.4) M/uL Hgb (12.0-16.0) g/dL Hct (37-47) % MCV (80-100) fL MCH (25-34) pg MCHC (32-36) g/dL RDW Std Deviation (36.4-46.3) fL RDW Coeff of Ana M (11.5-14.5) % Plt Count (130-400) K/uL MPV (7.4-10.4) fL Immature Gran % (Auto) % Neut % (Auto) % Lymph % (Auto) % [place] % (Auto) % Eos % (Auto) % Baso % (Auto) % Neut # (Auto) (1.4-6.5) K/uL Lymph # (Auto) (1.2-3.4) K/uL [place] # (Auto) (0.11-0.59) K/uL Eos # (Auto) (0-0.5) K/uL Baso # (Auto) (0-0.2) K/uL Immature Gran # (Auto) (0.00-0.02) K/uL PT (9.0-12.0) Seconds INR (0.9-1.1) APTT (21.0-31.0) Seconds PTT Ratio VBG pH (7.36-7.41) VBG pCO2 (38-50) mmHg VBG pO2 mmHg VBG HCO3 mmol/L VBG O2 Saturation % VBG Base Excess mEq/L Barometric Pressure mm/Hg Sodium (136-145) mmol/L Potassium (3.5-5.1) mmol/L Chloride (98-107) mmol/L Carbon Dioxide (21-32) mmol/L Anion Gap (3-11) BUN (6-23) mg/dl Creatinine (0.6-1.2) mg/dl Est Cr Clr Drug Dosing ml/min Est GFR ( Amer) ml/min Est GFR (Non-Af Amer) ml/min BUN/Creatinine Ratio (10-20) Glucose (70-99(Fasting)) mg/dl POC Glucose 101 H (70-99) mg/dl Calcium (8.5-10.1) mg/dl Magnesium (1.7-2.4) mg/dl Total Bilirubin (0.2-1.0) mg/dl Direct Bilirubin (0-0.2) mg/dl AST (13-39) U/L ALT (7-52) U/L Alkaline Phosphatase (34-104) U/L Troponin I (0-0.04) ng/ml B-Natriuretic Peptide (0-100) pg/ml Total Protein (6.0-8.3) gm/dl Albumin (3.4-5.0) gm/dl Lipase (11-82) U/L SARS-CoV-2, RNA, NAAT NEGATIVE (NEGATIVE) Imaging Data Radiologist's Impression: Chest/Abdomen X-ray 12/29/21 11:48 CHEST AND ABDOMEN 2 VIEWS HISTORY: Shortness of breath. Nausea. Vomiting. COMPARISON: Chest x-ray 12/27/2021. KUB 12/06/2021. FINDINGS: No pneumothorax. No pleural effusions. The cardiac silhouette remains enlarged. Is left-sided dual-chamber pacemaker. Right subclavian Port-A-Cath terminates at the SVC. A few bibasilar linear densities likely representing subsegmental atelectasis. No evidence for pulmonary edema. No new focal lung consolidations. Prior cholecystectomy. Postoperative changes again noted within the left upper quadrant. No pneumoperitoneum. No pneumatosis. Stable blunting of the right lateral costophrenic sulcus. Multiple calcifications at the deep pelvis consistent with phleboliths. No renal calculi. Mildly dilated gas-filled is a large and small bowel seen throughout the abdomen. This favors a mild ileus. IMPRESSION: 1. Stable cardiomegaly and bibasilar linear densities suggesting subsegmental atelectasis. 2. Mildly dilated gas-filled loops of large and small bowel seen throughout the abdomen. This favors a mild ileus. ACT 112: Negative or not required by law. Electronically signed by: Radhames Jackson M.D. 12/29/2021 1:26 PM ECG Data Indication: + nausea and + SOB/dyspnea Rate (beats per minute): 107 Rhythm: + atrial fibrillation ECG Intervals/blocks: + Normal QRS and + Prolonged QT ECG ST segments: + Normal ST segments Comparison ECG Date: from (12/27/21) Change: no significant change MDM Narrative Vital signs stable. On reassessment patient's lungs have improved and she is no longer wheezing. Patient still reports nausea and some vomiting. Labs are within normal limits. Imaging shows ileus. Patient states she does not feel comfortable going home and wants to be admitted to the hospital. [facility] hospitalist team will be contacted. Impression & Plan Adynamic ileus, Nausea, COPD (chronic obstructive pulmonary disease) Discharge Plan Visit Data Chief Complaint: Shortness of Breath/Dyspnea ED Provider: Jl Craig Discharge Problem: Adynamic ileus, Nausea, COPD (chronic obstructive pulmonary disease) Patient Disposition: Being Evaluated by Hospitalist Forms Stand Alone Forms: [facility] Prescriptions Prescriptions: No Action dicyclomine 10 mg capsule 10 mg PO BID PRN (Reason: Abdominal Discomfort) RF: 0 acetaminophen [Tylenol Extra Strength] 500 mg Tablet 1,000 mg PO Q6H PRN (Reason: Fever Or Pain) Qty: 60 RF: 0 levothyroxine [Synthroid] 88 mcg tablet 88 mcg PO QAM Qty: 30 RF: 0 cyanocobalamin (vitamin B-12) [Vitamin B-12] 1,000 mcg Tablet 1,000 mcg PO DAILY RF: 0 vit-iron fum-folic ac 65 mg iron- 1 mg Tablet 1 tab PO HS RF: 0 Eliquis 5 mg tablet 5 mg PO BID RF: 0 promethazine 25 mg tablet 25 mg PO Q6H PRN (Reason: Nausea) 10 Days Qty: 30 RF: 0 metoprolol succinate [Toprol XL] 100 mg tablet extended release 24 hr 100 mg PO BID Qty: 60 RF: 0 omeprazole 20 mg capsule,delayed release(DR/EC) 20 mg PO AMHS RF: 0 colestipol 1 gram tablet 1 g PO AMHS RF: 0 metoclopramide HCl 10 mg tablet 10 mg PO TID RF: 0 aprepitant 80 mg capsule 80 mg PO WK PRN (Reason: Nausea) RF: 0 Referrals Referrals: Jaleel Coppola MD [Primary Care Provider] - Discharge Problem: COPD (chronic obstructive pulmonary disease) Qualifiers: COPD type: unspecified COPD Qualified Code(s): J44.9 - Chronic obstructive pulmonary disease, unspecified
[2021-12-29] MEDS: SODIUM CHLORIDE 0.9% 500 ML IV SCH ×2 (12:24→16:52)
[2021-12-29 12:26] LABS: Basophils # (auto) 0.01 K/uL (0-0.2); Basophils % (auto) 0.1 %; Eosinophils # (auto) 0.08 K/uL (0-0.5); Eosinophils % (auto) 0.8 %; Hematocrit (blood only) 32.3 % (37-47); Hemoglobin 10.1 g/dL (12.0-16.0); Immature Granulocytes # (auto) 0.01 K/uL (0.00-0.02); Immature Granulocytes % (auto) 0.1 %; Lymphocytes # (auto) 1.98 K/uL (1.2-3.4); Lymphocytes % (auto) 20.9 %; Mean Corpuscular Hgb Conc 31.3 g/dL (32-36); Mean Corpuscular Volume 76.9 fL (80-100); Mean Platelet Volume 9.9 fL (7.4-10.4); Monocytes # (auto) 0.62 K/uL (0.11-0.59); Monocytes % (auto) 6.6 %; Neutrophils # (auto) 6.76 K/uL (1.4-6.5); Neutrophils % (auto) 71.5 %; Platelet Count 274 K/uL (130-400); RDW Coefficient of Variation 18.2 % (11.5-14.5); RDW Standard Deviation 48.1 fL (36.4-46.3); White Blood Count 9.46 K/uL (4.8-10.8)
[2021-12-29 12:27] LABS: Base Excess VBG -1.5 mEq/L; HCO3 VBG 23 mmol/L; PCO2 VBG 37 mmHg (38-50); PO2 VBG 33 mmHg; pH VBG 7.41 (7.36-7.41)
[2021-12-29 12:40] LABS: Partial Thromboplastin Time 28.1 Seconds (21.0-31.0); Prothrombin Time 10.9 Seconds (9.0-12.0)
[2021-12-29 12:41] LABS: Alanine Aminotransferase 31 U/L (7-52); Albumin Level 3.6 gm/dl (3.4-5.0); Alkaline Phosphatase 101 U/L (34-104); Anion Gap 9 (3-11); Aspartate Aminotransferase 36 U/L (13-39); BUN Creatinine Ratio 17.4 (10-20); Bilirubin Direct 0.1 mg/dl (0-0.2); Bilirubin,Total 0.4 mg/dl (0.2-1.0); Blood Urea Nitrogen 15 mg/dl (6-23); Calcium 8.3 mg/dl (8.5-10.1); Carbon Dioxide 22 mmol/L (21-32); Chloride 112 mmol/L (98-107); Creatinine Clr Calc Pharmacy 71.8 ml/min; Est GFR (African American) 83.3 ml/min; Est GFR (Non-African American) 71.9 ml/min; Glucose 96 mg/dl (70-99(Fasting)); Lipase 20 U/L (11-82); Potassium 3.5 mmol/L (3.5-5.1); Sodium 143 mmol/L (136-145)
[2021-12-29 12:42] LABS: Troponin I < 0.03 ng/ml (0-0.04)
[2021-12-29 13:06] LABS: Oxygen Saturation VBG < 60.0 %
--- NOTE | 2021-12-29 13:27 | XRay Report ---
CHEST AND ABDOMEN 2 VIEWS HISTORY: Shortness of breath. Nausea. Vomiting. COMPARISON: Chest x-ray 12/27/2021. KUB 12/06/2021. FINDINGS: No pneumothorax. No pleural effusions. The cardiac silhouette remains enlarged. Is left-felicia ed dual-chamber pacemaker. Right subclavian Port-A-Cath terminates at the SVC. A few bibasilar linear densities likely representing subsegmental atelectasis. No evidence for pulmonary edema. No new foca l lung consolidations. Prior cholecystectomy. Postoperative changes again noted within the left upper quadrant. No pneumoperitoneum. No pneumatosis. Stable blunting of the right lateral costophrenic sul cus. Multiple calcifications at the deep pelvis consistent with phleboliths. No renal calculi. Mildly dilated gas-filled is a large and small bowel seen throughout the abdomen. This favors a mild ileus. IMPRESSION: 1. Stable cardiomegaly and bibasilar linear densities suggesting subsegmental atelectasis. 2. Mildly dilated gas-filled loops of large and small bowel seen throughout the abdomen. This favors a mild ileus. ACT 112: Negative or not required by law. Electronically signed by: Radhames Jackson M.D. 12/29/2021 1:26 PM
--- NOTE | 2021-12-29 14:11 | Electrocardiogram Report ---
Test Reason : Blood Pressure : / mmHG Vent. Rate : 107 BPM Atrial Rate : 085 BPM P-R Int : 000 ms QRS Dur : 110 ms QT Int : 416 ms P-R-T Axes : 000 -27 -30 degrees QTc Int : 555 ms Atrial fibrillation with rapid ventricular response Incomplete right bundle branch block Diffuse Minor Nonspecific T wave abnormality Prolonged QT Abnormal ECG When compared with ECG of 27-DEC-2021 18:37, No significant change was found Confirmed by Long Gary ([id number]) on 12/29/2021 2:11:22 PM Referred By: Confirmed By:Long Gary
--- NOTE | 2021-12-29 15:48 | History & Physical Report ---
Date of Service December 29, 2021 Assessment & Plan (1) Acute exacerbation of chronic obstructive pulmonary disease: Plan: Has responded well to steroids and neb in ED - Admit for observation - Continue steroids and neb treatments (2) Nausea: Plan: Due to exacerbation of chronic gastroparesis. Spoke with pt's outpatient GI provider who recommends using IV Emend as pt has responded well to this previ ously. No additional work-up is recommended at this time. - IV Emend - Continue prn promethazine as taken outpt - Continue PPI/H2 lauren as taken outpatient - Clear liquid diet for now then advance as tolerated (3) Gastroparesis: Plan: See plan for #2 (4) H/O irritable bowel syndrome: Plan: - Continue dicyclomine - Holding Colestipol due to side effects outpatient (5) Atrial fibrillation, chronic: (6) Current use of [facility] anticoagulation: (7) HTN (hypertension): (8) GERD (gastroesophageal reflux disease): (9) Anxiety: (10) Anemia: Plan: Continue other home medications as appropriate. Pt seen and reviewed with collaborating physician, Dr. Swan. Plan of care discussed and as outlined above. DVT Prophylaxis: pt on chronic Eliquis due to atrial fibrillation Code Status: Full code ReinaldoZion Timmy, PAC-C History of Present Illness Chief Complaint: Short of breath, N/V Primary Care Provider: Jaleel Coppola MD This is a 61 y/o female with a PMH of atrial fibrillation, tachybrady syndrome s/p PPM, hx hiatal hernia s/p gastric sleeve with subsequent development of gastroparesis, prolonged QT, COPD, CKD3, hx anemia, hypothyroidism, and generalized anxiety who was referred to the ED today from her PCP office with dyspnea and racing heart. Pt reports that she had COVID in Aug 2021 and Sep 2021 and since then, her breathing hasn't been right. However, her respiratory status has particularly worsened over the past week. She now reports dyspnea at rest, orthopnea, wheezing, and chest tightness. She denies cough, fevers, chills, dizziness or edema. She has also noted worsening of her chronic nausea that is related to gastroparesis. She recently saw GI and was started on weekly oral Emend, with her last dose being yesterday. Due to her prior surgery, she is unable to vomit but has had frequent episodes of dry heaves. Increased acid reflux and eructation. She also has chronic issues with diarrhea-predominant IBS. She was recently tried on Colestipol but found this too constipating so she went back to using dicyclomine. No melena or hematochezia. She has noted bloating with associated generalized abdominal discomfort but worse in the epigastric area. Last bowel movement was earlier today - loose with urgency. Allergies Allergy/AdvReac Type Severity Reaction Status Date / Time adhesive Allergy Mild POWERS SKIN Verified 12/29/21 12:43 capsaicin Allergy Mild ITCHINESS Verified 12/29/21 12:43 amoxicillin AdvReac Intermediate yeast Verified 12/29/21 12:43 infection scopolamine AdvReac Intermediate rash from Verified 12/29/21 12:43 patch NSAIDS (Non-Steroidal AdvReac Mild indegestion Verified 12/29/21 12:43 Anti-Inflamma rofecoxib AdvReac Mild indigestion Verified 12/29/21 12:43 Home Medications Medication Instructions Recorded Confirmed Type levothyroxine 88 mcg tablet 88 mcg PO QAM #30 tab 12/16/19 12/29/21 Rx (Synthroid) dicyclomine 10 mg capsule 10 mg PO BID PRN 12/17/19 12/29/21 History apixaban 5 mg tablet (Eliquis) 5 mg PO BID 10/02/21 12/29/21 History cyanocobalamin (vitamin B-12) 1,000 mcg PO DAILY 10/02/21 12/29/21 History 1,000 mcg tablet (Vitamin B-12) vitamins-iron fumarate 65 1 tab PO HS 10/02/21 12/29/21 History mg iron-folic acid 1 mg tablet metoprolol succinate 100 mg 100 mg PO BID #60 tab 11/18/21 12/29/21 Rx tablet,extended release 24 hr (Toprol XL) promethazine 25 mg tablet 25 mg PO Q6H PRN 10 Days #30 tab 12/09/21 12/29/21 Rx aprepitant 80 mg capsule 80 mg PO WK PRN 12/29/21 12/29/21 History famotidine 20 mg tablet (Pepcid) 20 mg PO BID 12/29/21 12/29/21 History ferrous sulfate 325 mg (65 mg 325 mg PO DAILY 12/29/21 12/29/21 History iron) tablet omeprazole 20 mg capsule,delayed 20 mg PO AMHS 12/29/21 12/29/21 History release Past Med/Surg History Medical History Acidosis, lactic Anxiety Asthma COPD (chronic obstructive pulmonary disease) COVID-19 COVID-19 Depression Diverticulosis Frequent PVCs Gastroparesis GERD (gastroesophageal reflux disease) H/O irritable bowel syndrome HTN (hypertension) Hypokalemia Hypomagnesemia Hypomagnesemia Hypophosphatemia Hypothyroidism Intractable nausea and vomiting Intractable vomiting with nausea Mitral regurgitation "moderate per echo 09/21/15" Nausea & vomiting Neuropathy Pemphigus vulgaris Prolonged QT interval Tobacco abuse Surgical History H/O oophorectomy History of bladder surgery History of laparoscopic partial gastrectomy History of pyloroplasty History of total hysterectomy Hx of cholecystectomy Hx of tonsillectomy S/P hysterectomy S/P laparoscopic sleeve gastrectomy S/P partial gastrectomy S/P repair of paraesophageal hernia "resulted in volvulus, required abdominal exploration" S/P tonsillectomy and adenoidectomy Status post cardiac pacemaker procedure Family History Mother DM type 2 (diabetes mellitus, type 2) Coronary heart disease Social History Smoking Status: Current every day smoker Tobacco Type: Cigarettes Cigarettes Per Day: 20; Second Hand Exposure: Yes; Do You Dip or Chew Tobacco: No; Tobacco Cessation Education Requested by Patient: No Hx Alcohol Use: Yes Alcohol type: beer Alcohol Intake Frequency Comment: 3-4 beers/week Hx Substance Use: No Preferred Language: Japanese Communication Ability: Effective Tube Winder Hand Required: No Beliefs That Will Affect Care: None marital status: Single Current Living Situation: Family Current Living Situation Comment: Daughter. How many Children do You have: 1 Other Information That Helps Us Care for You: No Feels Safe at Home: Yes Safety Concerns: Feels Safe At This Time Assistive Devices: Glasses Review of Systems Review of Systems: All systems reviewed & are unremarkable except as noted in HPI & below Constitutional: + fatigue, + weakness and + anorexia; no fever and no chills Eyes: no diplopia Ear, Nose, Mouth, Throat: no nasal congestion and no sore throat Respiratory: + dyspnea and + wheezing; no cough Cardiovascular: + orthopnea and + palpitations; no lightheadedness and no edema Gastrointestinal: + abdominal pain, + belching, + bloating, + heartburn, + nausea and + diarrhea/loose stools; no blood in stools Genitourinary: no dysuria and no hematuria Musculoskeletal: + myalgia and + muscle weakness; no neck pain Integumentary: no rash and no yellowing of the skin Neurologic: + headache(s); no dizziness Psychiatric: + anxiety Physical Exam Constitutional: well developed and well nourished; no acute distress Eyes: + anicteric sclerae ENMT: external ear and nose normal, oropharynx normal Neck: trachea midline Respiratory: no respiratory distress and no labored breathing Auscultation: + wheezes; no rales and no rhonchi Cardiovascular: Rate/Rhythm: + tachycardic and + irregularly irregular Vessels: dorsalis pedis pulses present and radial pulses present port in right chest Gastrointestinal (Abdomen): Inspection/Auscultation: + abdomen distended and normal bowel sounds Percussion/Palpation: + abdomen tender (epigastric) and abdomen soft Musculoskeletal: Head/Neck/Chest: normocephalic, head atraumatic and neck supple Skin: no jaundice few erythematous areas perioral area Neurologic: moves all extremities; no focal motor deficits and not confused Psychiatric: Orientation: alert and oriented x 3 Results & Data Results & Data ([facility]) Vital Signs (Past 12 Hours) Vital Signs Temp Pulse Pulse Resp BP BP Pulse Ox 12/29/21 14:00 97 H 18 145/116 H 97 12/29/21 11:48 99 12/29/21 11:47 37.1 C 98 H 18 150/124 H 99 Laboratory Results Laboratory Results - last 24 hr 12/29/21 12/29/21 12/29/21 12:03 12:03 12:03 WBC 9.46 RBC 4.20 Hgb 10.1 L Hct 32.3 L MCV 76.9 L MCH 24.0 L MCHC 31.3 L RDW Std Deviation 48.1 H RDW Coeff of Ana M 18.2 H Plt Count 274 MPV 9.9 Immature Gran % (Auto) 0.1 Neut % (Auto) 71.5 Lymph % (Auto) 20.9 Barnes % (Auto) 6.6 Eos % (Auto) 0.8 Baso % (Auto) 0.1 Neut # (Auto) 6.76 H Lymph # (Auto) 1.98 Barnes # (Auto) 0.62 H Eos # (Auto) 0.08 Baso # (Auto) 0.01 Immature Gran # (Auto) 0.01 PT 10.9 INR 1.0 APTT 28.1 PTT Ratio 1.0 VBG pH VBG pCO2 VBG pO2 VBG HCO3 VBG O2 Saturation VBG Base Excess Barometric Pressure Sodium 143 Potassium 3.5 Chloride 112 H Carbon Dioxide 22 Anion Gap 9 BUN 15 Creatinine 0.86 Est Cr Clr Drug Dosing 71.8 Est GFR ( Amer) 83.3 Est GFR (Non-Af Amer) 71.9 BUN/Creatinine Ratio 17.4 Glucose 96 POC Glucose Calcium 8.3 L Magnesium 2.0 Total Bilirubin 0.4 Direct Bilirubin 0.1 AST 36 ALT 31 Alkaline Phosphatase 101 Troponin I < 0.03 B-Natriuretic Peptide Total Protein 6.0 Albumin 3.6 Lipase 20 SARS-CoV-2, RNA, NAAT 12/29/21 12/29/21 12/29/21 12:03 12:03 12:03 WBC RBC Hgb Hct MCV MCH MCHC RDW Std Deviation RDW Coeff of Ana M Plt Count MPV Immature Gran % (Auto) Neut % (Auto) Lymph % (Auto) Barnes % (Auto) Eos % (Auto) Baso % (Auto) Neut # (Auto) Lymph # (Auto) Barnes # (Auto) Eos # (Auto) Baso # (Auto) Immature Gran # (Auto) PT INR APTT PTT Ratio VBG pH 7.41 VBG pCO2 37 L VBG pO2 33 VBG HCO3 23 VBG O2 Saturation < 60.0 VBG Base Excess -1.5 Barometric Pressure 723.5 Sodium Potassium Chloride Carbon Dioxide Anion Gap BUN Creatinine Est Cr Clr Drug Dosing Est GFR ( Amer) Est GFR (Non-Af Amer) BUN/Creatinine Ratio Glucose POC Glucose Calcium Magnesium Total Bilirubin Direct Bilirubin AST ALT Alkaline Phosphatase Troponin I B-Natriuretic Peptide 825 H Total Protein Albumin Lipase Cancelled SARS-CoV-2, RNA, NAAT 12/29/21 12/29/21 12:17 12:22 WBC RBC Hgb Hct MCV MCH MCHC RDW Std Deviation RDW Coeff of Ana M Plt Count MPV Immature Gran % (Auto) Neut % (Auto) Lymph % (Auto) Barnes % (Auto) Eos % (Auto) Baso % (Auto) Neut # (Auto) Lymph # (Auto) Barnes # (Auto) Eos # (Auto) Baso # (Auto) Immature Gran # (Auto) PT INR APTT PTT Ratio VBG pH VBG pCO2 VBG pO2 VBG HCO3 VBG O2 Saturation VBG Base Excess Barometric Pressure Sodium Potassium Chloride Carbon Dioxide Anion Gap BUN Creatinine Est Cr Clr Drug Dosing Est GFR ( Amer) Est GFR (Non-Af Amer) BUN/Creatinine Ratio Glucose POC Glucose 101 H Calcium Magnesium Total Bilirubin Direct Bilirubin AST ALT Alkaline Phosphatase Troponin I B-Natriuretic Peptide Total Protein Albumin Lipase SARS-CoV-2, RNA, NAAT NEGATIVE Diagnostic Findings Chest/Abdominal Xray 12/29/21 - IMPRESSION:1. Stable cardiomegaly and bibasilar linear densities suggesting subsegmental atelectasis. 2. Mildly dilated gas-fi lled loops of large and small bowel seen throughout the abdomen. This favors a mild ileus. Medications Administered Sodium Chloride (Nss) 500 mls @ 125 mls/hr IV .Q4H [facility] Stop: 01/28/22 11:59 Last Admin: 12/29/21 12:24 Dose: 125 mls/hr Documented by: [id number] Discontinued Medications Albuterol (Albut/Ipratrop 3mg/0.5mg Neb 3 Ml Vial) 3 ml NEB NOW STA; Protocol Stop: 12/29/21 11:48 Last Admin: 12/29/21 12:23 Dose: 3 ml Documented by: [id number] Diphenhydramine HCl (Diphenhydramine 50 Mg/Ml Vial) 25 mg IV NOW STA Stop: 12/29/21 11:53 Last Admin: 12/29/21 12:23 Dose: 25 mg Documented by: [id number] Lorazepam (Lorazepam 2 Mg/1 Ml Vial) 0.5 mg IV NOW STA Stop: 12/29/21 11:48 Last Admin: 12/29/21 12:23 Dose: 0.5 mg Documented by: [id number] Methylprednisolone (Methylprednisolone 125 Mg/2 Ml Vial) 125 mg IV NOW STA Stop: 12/29/21 11:48 Last Admin: 12/29/21 12:23 Dose: 125 mg Documented by: [id number] Metoclopramide HCl (Metoclopramide Hcl Inj 5 Mg/Ml 2 Ml Vial) 5 mg IV ONE ONE Stop: 12/29/21 11:53 Last Admin: 12/29/21 12:24 Dose: 5 mg Documented by: [id number] Metoclopramide HCl (Metoclopramide Hcl Inj 5 Mg/Ml 2 Ml Vial) 2.5 mg IV ONE ONE Stop: 12/29/21 13:50 Last Admin: 12/29/21 14:38 Dose: 2.5 mg Documented by: [id number] Code Status & VTE Plan VTE Prophylaxis Plan VTE Prophylaxis will be ordered: Yes Supervising Physician Co-Signing Physician Notes I saw and examined the patient at bedside. I reviewed the chart and discussed the case with Rose AGUILAR. In summary, this is a 61 year old female with history of COPD, chronic gastroparesis, chronic Afib on eliquis presented to the ED with shortness of breath and worsening gastroparesis symptoms. States she has COPD but does not use any inhalers or nebs. States her shortness of breath has been there for the past week and she is unable to walk 4 steps without getting short of breath and has to rest. Also has orthopnea and has been sleeping in the recliner for the past week. She has gained 10 lbs over the past 2 months but denies any leg swellings. Denies any history of CHF. States her pacemaker is not functioning right and is planned to have echo on 01/10. Denies any cough or sputum expectoration. No fever or chills. Intermittent chest tightness and wheezing. Regarding her gastroparesis, she has been dealing it for 10 years and lately has been on Emend with some improvement. She is nauseous with dry heaving but no vomiting and able to hold pills down.In the ED, she is afebrile hemodynamically stable. Sitting up and dry heaving. Awake, alert. In some distress due to dry heaving. Chest with right sided port placed for Emend infusion. Chest with fair breath sounds with some expiratory wheezes. Irregularly irregular heart sounds. Abdomen benign. Trace RLE edema. Patient was treated with steroids and nebs in ED with some improvement. Currently comfortable from respiratory standpoint. Admit for COPD exacerbation, suspected mild CHF exacerbation. Continue nebs, steroids. Check echo. Daily weight and intake and output. BNP elevated but no overt edema. Will hold off on diuresis as her oral intake has been limited and doesn't look volume overloaded. Follow up on echo. Continue emend per GI. Rest per the note above. (1) GERD (gastroesophageal reflux disease) Esophagitis presence: with esophagitis Qualified Code(s): K21.0 - Gastro- esophageal reflux disease with esophagitis
[2021-12-29] MEDS ORDERED: FOSAPREPITANT DIMEGLUMINE 150 MG in SODIUM CHLORIDE 0.9% 145 ML IV ONE (18:00)
[2021-12-29 19:06] LABS: Appearance Urine Clear (Clear); Bilirubin Urine Negative (Negative); Blood Urine Negative (Negative); Color Urine Yellow; Glucose Urine UA Negative (Negative); Ketones Urine Trace (Negative); Leukocyte Esterase Urine Negative (Negative); Nitrite Urine Negative (Negative); Protein Urine Negative (Negative); Specific Gravity Urine 1.021 (1.000-1.030); Urobilinogen Urine Negative (Negative)
[2021-12-29] MEDS: ALBUT/IPRATROP 3MG/0.5MG NEB 3 ML VIAL NEB SCH (19:16)
[2021-12-29] MEDS: BUDESONIDE 0.5 MG/2 ML VIAL (PULMICORT) NEB SCH (19:16)
[2021-12-29] MEDS: FORMOTEROL 20 MCG/2 ML VIAL NEB SCH (19:54)
[2021-12-29] MEDS ORDERED: methylPREDNISolone 40 MG in SYRINGE 0 ML IV SCH (20:00)
[2021-12-29] MEDS: APIXABAN 5 MG TABLET PO SCH (20:26)
[2021-12-29] MEDS: FAMOTIDINE 20 MG TAB PO SCH (20:26)
[2021-12-29] MEDS: METOPROLOL SUCC 50MG EXT REL TAB PO SCH (20:27)
[2021-12-29] MEDS: PROMETHAZINE HCL 12.5 MG in SODIUM CHLORIDE 0.9% 50 ML IV PRN (22:00)
[2021-12-30] MEDS: SODIUM CHLORIDE 0.9% 500 ML IV SCH (00:42)
[2021-12-30] MEDS: SODIUM CHLORIDE 0.9% 1000ML 1,000 ML IV SCH ×2 (01:00→08:41)
[2021-12-30] MEDS ORDERED: ONDANSETRON INJ 2 MG/ML 2 ML VIAL IV STA (03:08)
[2021-12-30] MEDS ORDERED: ONDANSETRON INJ 2 MG/ML 2 ML VIAL ONE (03:11)
[2021-12-30] MEDS: PROMETHAZINE HCL 12.5 MG in SODIUM CHLORIDE 0.9% 50 ML IV PRN ×3 (05:25→21:36)
[2021-12-30] MEDS: LEVOTHYROXINE SODIUM 88 MCG TABLET PO SCH (05:43)
[2021-12-30 06:36] LABS: BUN Creatinine Ratio 13.9 (10-20); Calcium 7.6 mg/dl (8.5-10.1); Creatinine Clr Calc Pharmacy 88.3 ml/min; Est GFR (African American) 103.3 ml/min; Est GFR (Non-African American) 89.1 ml/min; Potassium 4.1 mmol/L (3.5-5.1)
[2021-12-30] MEDS: ALBUT/IPRATROP 3MG/0.5MG NEB 3 ML VIAL NEB SCH ×4 (07:16→19:31)
[2021-12-30] MEDS: BUDESONIDE 0.5 MG/2 ML VIAL (PULMICORT) NEB SCH ×2 (07:16→19:30)
[2021-12-30] MEDS: FORMOTEROL 20 MCG/2 ML VIAL NEB SCH ×2 (07:16→19:30)
[2021-12-30] MEDS: CYANOCOBALAMIN (B-12) 500 MCG TABLET PO SCH (08:55)
[2021-12-30] MEDS: FAMOTIDINE 20 MG TAB PO SCH ×2 (08:56→20:35)
[2021-12-30] MEDS: DICYCLOMINE HCL 10 MG CAP PO PRN ×2 (08:56→20:35)
[2021-12-30] MEDS: METOPROLOL SUCC 50MG EXT REL TAB PO SCH ×2 (08:57→20:35)
[2021-12-30] MEDS: FERROUS SULFATE 325 MG TAB PO SCH (08:57)
[2021-12-30] MEDS: APIXABAN 5 MG TABLET PO SCH ×2 (08:57→20:34)
[2021-12-30] MEDS ORDERED: predniSONE 20 MG TAB PO SCH (09:00)
--- NOTE | 2021-12-30 16:36 | Hospitalist Progress Note ---
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 This favors a mild ileus Received gentle IV fluids Monitor Repeat KUB in AM Mild acute systolic CHF Exacerbation Valvular heart disease CXR as above ECHO: Mildly reduced LV systolic function with flattened septum consistent with RV pressure/volume overload, EF 45 to 50%. Moderately reduced RV systolic function. Moderate mitral regurgitation mild mitral valve prolapse. Severe tricuspid regurgitation severe biatrial enlargement. Monitor Volume status closely No Overt signs of Volume overload clinically Plan to start on diuretics as able Will need Cardiology eval eventually (2) Nausea: Plan: Exacerbation of chronic gastroparesis. Follows with GI as outpatient Received IV Emend Continue prn promethazine Continue PPI/H2 lauren Advance diet as tolerated (3) Gastroparesis: Plan: Management as above (4) H/O irritable bowel syndrome: Plan: - Continue dicyclomine - Holding Colestipol due to side effects outpatient (5) Atrial fibrillation, chronic: Plan: Continue metoprolol On Eliquis for anticoagulation (6) Current use of skilled nursing anticoagulation: (7) HTN (hypertension): Plan: Continue metoprolol (8) GERD (gastroesophageal reflux disease): Plan: on PPI (9) Anxiety: (10) Anemia: Plan: Code Status: Full code DVT Px: on Eliquis Admission and Anticipated Discharge Date Admission Date: December 29, 2021 Subjective Patient is seen and examined at bedside Reports nausea but no vomiting Also states having dyspnea on exertion Tolerated diet Denies chest pain, dizziness, abd pain Last BM yesterday, +Flatus Review of Systems Review of Systems: All systems reviewed & are unremarkable except as noted in Subjective Physical Exam Physical Exam: Physical Exam: Vitals signs as noted above General Appearance:Moderately built and nourished, no apparent distress Head: normocephalic, Atraumatic Eyes: normal inspection, EOMI Neck: supple, Trachea midline Respiratory/Chest: Normal breath sounds, CTA, No accessory muscle use Cardiovascular: Irregularly irregular, No murmur Abdomen/GI:Soft, Non tender, Bowel sounds present Extremities/Musculoskeletal:normal inspection, Trace pedal edema Neurologic/Psych:AAOX3, grossly no focal neurological deficits Skin: normal color, warm Results & Data Results & Data ([facility]) Vital Signs (Past 12 Hours) Vital Signs Temp Pulse Resp BP Pulse Ox 12/30/21 16:26 36.7 C 97 H 18 131/94 96 12/30/21 15:12 102 H 18 97 12/30/21 10:50 88 18 99 12/30/21 08:05 36.5 C 105 H 18 132/98 97 12/30/21 07:17 85 16 99 Laboratory Results [facility] 12/30/21 05:54 Sodium 141 Potassium 4.1 Chloride 111 H Carbon Dioxide 21 BUN 10 Creatinine 0.72 Glucose 127 H Calcium 7.6 L Urine 12/29/21 Range/Units 18:45 Urine Color Yellow Urine Appearance Clear (Clear) Urine pH 5.0 (4.5-7.5) Ur Specific Olmitz 1.021 (1.000-1.030) Urine Protein Negative (Negative) Urine Glucose (UA) Negative (Negative) (1) GERD (gastroesophageal reflux disease) Esophagitis presence: with esophagitis Qualified Code(s): K21.0 - Gastro-esophageal reflux disease with esophagitis
[2021-12-30] MEDS: HEPARIN 100 UNIT/ML 5ML FLUSH FLUSH PRN ×2 (16:54→21:57)
[2021-12-31] MEDS ORDERED: FOSAPREPITANT DIMEGLUMINE 150 MG in SODIUM CHLORIDE 0.9% 145 ML IV ONE (02:30)
[2021-12-31] MEDS: HEPARIN 100 UNIT/ML 5ML FLUSH FLUSH PRN (03:19)
[2021-12-31] MEDS: PROMETHAZINE HCL 12.5 MG in SODIUM CHLORIDE 0.9% 50 ML IV PRN ×2 (06:01→22:00)
[2021-12-31] MEDS: LEVOTHYROXINE SODIUM 88 MCG TABLET PO SCH (06:01)
[2021-12-31] MEDS ORDERED: FAMOTIDINE 20 MG in SYRINGE 3 ML IV STA (06:33)
[2021-12-31] MEDS: FORMOTEROL 20 MCG/2 ML VIAL NEB SCH ×2 (07:07→19:21)
[2021-12-31] MEDS: BUDESONIDE 0.5 MG/2 ML VIAL (PULMICORT) NEB SCH ×2 (07:07→19:20)
[2021-12-31] MEDS: ALBUT/IPRATROP 3MG/0.5MG NEB 3 ML VIAL NEB SCH (07:08)
--- NOTE | 2021-12-31 07:12 | XRay Report ---
KUB HISTORY: Nausea. Vomiting. Ileus COMPARISON: Chest and abdominal series 12/29/2021. FINDINGS: Mildly dilated gas-filled loops of small bowel have slightly improved in the interval. Thes e measure up to 3.3 cm in diameter. There is gas seen throughout the colon and rectum. No renal calc leah. No ureteral calculi. Calcifications in the deep pelvis likely represent phleboliths. Surgical cl ips noted within the left upper quadrant. No pneumoperitoneum or pneumatosis. IMPRESSION: Slight improvement in the mildly dilated gas-filled loops of small bowel seen within the abdomen. The re is also gas within the colon and rectum. Findings favor a mild ileus. ACT 112: Negative or not required by law. Electronically signed by: Radhames Jackson M.D. 12/31/2021 7:10 AM
[2021-12-31] MEDS: FERROUS SULFATE 325 MG TAB PO SCH (08:10)
[2021-12-31] MEDS: predniSONE 20 MG TAB PO SCH (08:10)
[2021-12-31] MEDS: METOPROLOL SUCC 50MG EXT REL TAB PO SCH ×2 (08:10→20:14)
[2021-12-31] MEDS: CYANOCOBALAMIN (B-12) 500 MCG TABLET PO SCH (08:10)
[2021-12-31] MEDS: APIXABAN 5 MG TABLET PO SCH ×2 (08:11→22:07)
[2021-12-31 08:32] LABS: Hematocrit (blood only) 30.8 % (37-47); Hemoglobin 9.4 g/dL (12.0-16.0); Mean Corpuscular Hemoglobin 23.9 pg (25-34); Mean Corpuscular Hgb Conc 30.5 g/dL (32-36); Mean Corpuscular Volume 78.4 fL (80-100); Mean Platelet Volume 10.1 fL (7.4-10.4); Platelet Count 242 K/uL (130-400); RDW Coefficient of Variation 19.2 % (11.5-14.5); RDW Standard Deviation 50.3 fL (36.4-46.3); Red Blood Count 3.93 M/uL (4.2-5.4); White Blood Count 7.36 K/uL (4.8-10.8)
[2021-12-31 08:56] LABS: Calcium 7.8 mg/dl (8.5-10.1); Creatinine Clr Calc Pharmacy 78.5 ml/min; Est GFR (African American) 89.6 ml/min; Est GFR (Non-African American) 77.3 ml/min; Potassium 3.3 mmol/L (3.5-5.1)
[2021-12-31] MEDS: DICYCLOMINE HCL 10 MG CAP PO PRN ×2 (09:18→19:18)
[2021-12-31] MEDS ORDERED: ALBUT/IPRATROP 3MG/0.5MG NEB 3 ML VIAL NEB PRN (09:28)
[2021-12-31] MEDS ORDERED: POTASSIUM CHLORIDE CRTAB 20 MEQ TABCR PO ONE (09:44)
[2021-12-31] MEDS ORDERED: POLYETHYLENE (MIRALAX) 17 GM PACK PO ONE ×2 (09:48→14:45)
[2021-12-31] MEDS: ALUMINUM/MAGNESIUM/SIMETH (MAALOX MAX) 30 ML UDC PO PRN ×2 (13:25→19:16)
--- NOTE | 2021-12-31 15:20 | Hospitalist Progress Note ---
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 This favors a mild ileus Received gentle IV fluids Monitor Had BM Monitor Mild acute systolic CHF Exacerbation Valvular heart disease CXR as above ECHO: Mildly reduced LV systolic function with flattened septum consistent with RV pressure/volume overload, EF 45 to 50%. Moderately reduced RV systolic function. Moderate mitral regurgitation mild mitral valve prolapse. Severe tricuspid regurgitation severe biatrial enlargement. Monitor Volume status closely No Overt signs of Volume overload clinically Plan to start on diuretics as able Follow with as outpatient Needs follow up with Cardiology upon discharge (2) Nausea: Plan: Exacerbation of chronic gastroparesis. Follows with GI as outpatient Received IV Emend Continue prn promethazine Continue PPI/H2 lauren Advance diet as tolerated Clear liquid diet today (3) Gastroparesis: Plan: Management as above (4) H/O irritable bowel syndrome: Plan: - Continue dicyclomine - Holding Colestipol due to side effects outpatient (5) Atrial fibrillation, chronic: Plan: Continue metoprolol On Eliquis for anticoagulation (6) Current use of long-term anticoagulation: (7) HTN (hypertension): Plan: Continue metoprolol (8) GERD (gastroesophageal reflux disease): Plan: on PPI (9) Anxiety: (10) Anemia: Plan: Code Status: Full code DVT Px: on Eliquis Admission and Anticipated Discharge Date Admission Date: December 29, 2021 Subjective Patient is seen and examined at bedside States having heartburn, nausea, dry cough today Last BM yesterday Did not tolerate regular food yesterday Denies chest pain, dyspnea, dizziness, abd pain Review of Systems Review of Systems: All systems reviewed & are unremarkable except as noted in Subjective Physical Exam Physical Exam: Physical Exam: Vitals signs as noted above General Appearance:Moderately built and nourished, no apparent distress Head: normocephalic, Atraumatic Eyes: normal inspection, EOMI Neck: supple, Trachea midline Respiratory/Chest: Normal breath sounds, CTA, No accessory muscle use Cardiovascular: Irregularly irregular, No murmur Abdomen/GI:Soft, Non tender, Bowel sounds present Extremities/Musculoskeletal:normal inspection, Trace pedal edema Neurologic/Psych:AAOX3, grossly no focal neurological deficits Skin: normal color, warm Results & Data Results & Data ([facility]) Vital Signs (Past 12 Hours) Vital Signs Temp Pulse Resp BP Pulse Ox 12/31/21 07:51 36.5 C 75 18 131/95 96 12/31/21 07:08 82 18 97 Laboratory Results Short CBC 12/31/21 Range/Units 07:43 WBC 7.36 (4.8-10.8) K/uL Hgb 9.4 L (12.0-16.0) g/dL Hct 30.8 L (37-47) % Plt Count 242 (130-400) K/uL BMP 12/31/21 07:43 Sodium 142 Potassium 3.3 L Chloride 112 H Carbon Dioxide 26 BUN 13 Creatinine 0.81 Glucose 81 Calcium 7.8 L (1) GERD (gastroesophageal reflux disease) Esophagitis presence: with esophagitis Qualified Code(s): K21.0 - Gastro- esophageal reflux disease with esophagitis
[2021-12-31] MEDS: ACETAMINOPHEN 325 MG TAB PO PRN (19:37)
[2021-12-31] MEDS: FAMOTIDINE 20 MG TAB PO SCH (20:14)
--- NOTE | 2021-12-31 20:23 | CT Scan Report ---
CT head/brain wo con CLINICAL HISTORY: holliday Technique: Contiguous axial CT images of the head were acquired from the base of the skull to the tiffanie adrian without intravenous contrast administration. Images were viewed in brain, subdural and [facility]. Automated dose lowering techniques and/or adjustment according to patient size were utilized for this exam. Comparison: Comparison is made to 10/10/2019 Findings: The ventricles, basal cisterns, and cerebral sulci are normal. There is no acute intracranial hemorrh age or evidence of acute territorial infarction. Neither mass effect, shift of the midline structures , nor abnormal extra-axial fluid collections are shown. Imaged portions of the paranasal sinuses and mastoid air cells are clear. The orbits appear normal. There are no acute fractures of the calvaria or scalp swelling. Impression: No acute intracranial hemorrhage, no evidence of acute territorial infarction or other acute intracra nial disease process. ACT 112: Negative or not required by law. Electronically signed by: Naseem Toussaint M.D. 12/31/2021 8:21 PM
[2022-01-01] MEDS: LEVOTHYROXINE SODIUM 88 MCG TABLET PO SCH (06:12)
[2022-01-01] MEDS: FORMOTEROL 20 MCG/2 ML VIAL NEB SCH ×2 (07:12→19:38)
[2022-01-01] MEDS: BUDESONIDE 0.5 MG/2 ML VIAL (PULMICORT) NEB SCH ×2 (07:12→19:38)
--- NOTE | 2022-01-01 07:30 | XRay Report ---
KUB HISTORY: Nausea. Vomiting. Ileus COMPARISON: KUB 12/31/2021. FINDINGS: Interval resolution of the dilated loops of small bowel seen within the abdomen. There is g as seen within the colon and rectum. Prior cholecystectomy. Postoperative changes again noted within the upper abdomen. No renal calculi. No ureteral calculi. Calcifications in the deep pelvis likely r epresent phleboliths. No pneumoperitoneum or pneumatosis. IMPRESSION: Interval resolution of the dilated loops of small bowel. ACT 112: Negative or not required by law. Electronically signed by: Radhames Jackson M.D. 01/01/2022 7:29 AM
[2022-01-01] MEDS: HEPARIN 100 UNIT/ML 5ML FLUSH FLUSH PRN ×3 (08:04→23:36)
[2022-01-01 08:52] LABS: BUN Creatinine Ratio 14.3 (10-20); Calcium 7.9 mg/dl (8.5-10.1); Creatinine Clr Calc Pharmacy 84.2 ml/min; Est GFR (African American) 95.2 ml/min; Est GFR (Non-African American) 82.2 ml/min; Magnesium 1.9 mg/dl (1.7-2.4); Potassium 3.5 mmol/L (3.5-5.1)
[2022-01-01] MEDS: FERROUS SULFATE 325 MG TAB PO SCH (09:35)
[2022-01-01] MEDS: APIXABAN 5 MG TABLET PO SCH ×2 (09:35→21:44)
[2022-01-01] MEDS: CYANOCOBALAMIN (B-12) 500 MCG TABLET PO SCH (09:35)
[2022-01-01] MEDS: predniSONE 20 MG TAB PO SCH (09:36)
[2022-01-01] MEDS: METOPROLOL SUCC 50MG EXT REL TAB PO SCH ×2 (09:36→21:44)
[2022-01-01] MEDS: ALUMINUM/MAGNESIUM/SIMETH (MAALOX MAX) 30 ML UDC PO PRN (09:39)
[2022-01-01] MEDS: FAMOTIDINE 20 MG TAB PO SCH ×2 (10:14→21:44)
[2022-01-01] MEDS: DICYCLOMINE HCL 10 MG CAP PO PRN ×2 (10:40→23:33)
[2022-01-01] MEDS ORDERED: FOSAPREPITANT DIMEGLUMINE 150 MG in SODIUM CHLORIDE 0.9% 145 ML IV ONE (12:30)
[2022-01-01] MEDS: THIAMINE HCL 100 MG TAB PO SCH ×3 (13:45→18:27)
[2022-01-01] MEDS: FOLIC ACID 1 MG TAB PO SCH ×3 (13:45→18:26)
[2022-01-01] MEDS: PROMETHAZINE HCL 12.5 MG in SODIUM CHLORIDE 0.9% 50 ML IV PRN ×2 (15:21→23:00)
--- NOTE | 2022-01-01 16:09 | Hospitalist Progress Note ---
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 This favors a mild ileus Received gentle IV fluids Resolved Monitor Mild acute systolic CHF Exacerbation Valvular heart disease CXR as above ECHO: Mildly reduced LV systolic function with flattened septum consistent with RV pressure/volume overload, EF 45 to 50%. Moderately reduced RV systolic function. Moderate mitral regurgitation mild mitral valve prolapse. Severe tricuspid regurgitation severe biatrial enlargement. 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 Follows with GI as outpatient Received IV Emend Continue prn promethazine Continue PPI/H2 lauren liquid diet today (3) Gastroparesis: Plan: Management as above (4) H/O irritable bowel syndrome: Plan: - Continue dicyclomine - Holding Colestipol due to side effects outpatient (5) Atrial fibrillation, chronic: Plan: Continue metoprolol On Eliquis for anticoagulation (6) Current use of senior care anticoagulation: (7) HTN (hypertension): Plan: Continue metoprolol (8) GERD (gastroesophageal reflux disease): Plan: on PPI (9) Anxiety: (10) Anemia: Plan: Code Status: Full code DVT Px: on Eliquis Admission and Anticipated Discharge Date Admission Date: December 29, 2021 Subjective Patient is seen and examined at bedside Persistent Nausea, vomiting Did not tolerate regular diet Denies chest pain, dizziness, abd pain Reports Dyspnea on exertion Review of Systems Review of Systems: All systems reviewed & are unremarkable except as noted in Subjective Physical Exam Physical Exam: Physical Exam: Vitals signs as noted above General Appearance:Moderately built and nourished, no apparent distress Head: normocephalic, Atraumatic Eyes: normal inspection, EOMI Neck: supple, Trachea midline Respiratory/Chest: Normal breath sounds, CTA, No accessory muscle use Cardiovascular: Irregularly irregular, No murmur Abdomen/GI:Soft, Non tender, Bowel sounds present Extremities/Musculoskeletal:normal inspection, Trace pedal edema Neurologic/Psych:AAOX3, grossly no focal neurological deficits Skin: normal color, warm Results & Data Results & Data ([facility]) Vital Signs (Past 12 Hours) Vital Signs Temp Pulse Resp BP Pulse Ox 01/01/22 15:57 36.9 C 92 H 18 117/71 96 01/01/22 07:32 36.5 C 97 H 18 97/62 L 98 01/01/22 07:13 89 16 97 Laboratory Results [facility] 01/01/22 08:00 Sodium 142 Potassium 3.5 Chloride 112 H Carbon Dioxide 25 BUN 11 Creatinine 0.77 Glucose 81 Calcium 7.9 L (1) GERD (gastroesophageal reflux disease) Esophagitis presence: with esophagitis Qualified Code(s): K21.0 - Gastro- esophageal reflux disease with esophagitis
[2022-01-01] MEDS: ACETAMINOPHEN 325 MG TAB PO PRN (23:33)
[2022-01-02] MEDS ORDERED: ACETAMINOPHEN 1,000 MG/100 ML VIAL IV STA (02:48)
[2022-01-02] MEDS ORDERED: ONDANSETRON INJ 2 MG/ML 2 ML VIAL IV STA (02:48)
[2022-01-02] MEDS: HEPARIN 100 UNIT/ML 5ML FLUSH FLUSH PRN ×2 (03:04→05:52)
[2022-01-02] MEDS: LEVOTHYROXINE SODIUM 88 MCG TABLET PO SCH (06:11)
[2022-01-02 06:22] LABS: Hematocrit (blood only) 32.9 % (37-47); Hemoglobin 10.1 g/dL (12.0-16.0); Mean Corpuscular Hemoglobin 24.2 pg (25-34); Mean Corpuscular Hgb Conc 30.7 g/dL (32-36); Mean Corpuscular Volume 78.9 fL (80-100); Mean Platelet Volume 10.1 fL (7.4-10.4); Platelet Count 264 K/uL (130-400); RDW Coefficient of Variation 19.7 % (11.5-14.5); RDW Standard Deviation 53.1 fL (36.4-46.3); Red Blood Count 4.17 M/uL (4.2-5.4); White Blood Count 7.36 K/uL (4.8-10.8)
[2022-01-02 06:38] LABS: BUN Creatinine Ratio 11.8 (10-20); Calcium 7.8 mg/dl (8.5-10.1); Creatinine Clr Calc Pharmacy 84.9 ml/min; Est GFR (African American) 96.8 ml/min; Est GFR (Non-African American) 83.5 ml/min; Potassium 3.6 mmol/L (3.5-5.1)
[2022-01-02] MEDS: FORMOTEROL 20 MCG/2 ML VIAL NEB SCH ×2 (07:08→19:10)
[2022-01-02] MEDS: BUDESONIDE 0.5 MG/2 ML VIAL (PULMICORT) NEB SCH ×2 (07:08→19:10)
[2022-01-02] MEDS: FOLIC ACID 1 MG TAB PO SCH (09:14)
[2022-01-02] MEDS: METOPROLOL SUCC 50MG EXT REL TAB PO SCH ×2 (09:14→20:46)
[2022-01-02] MEDS: FUROSEMIDE 20 MG TAB PO SCH (09:15)
[2022-01-02] MEDS: THIAMINE HCL 100 MG TAB PO SCH (09:15)
[2022-01-02] MEDS: APIXABAN 5 MG TABLET PO SCH ×2 (09:15→20:46)
[2022-01-02] MEDS: FERROUS SULFATE 325 MG TAB PO SCH (09:15)
[2022-01-02] MEDS: CYANOCOBALAMIN (B-12) 500 MCG TABLET PO SCH (09:15)
[2022-01-02] MEDS: predniSONE 10 MG TABLET PO SCH (09:16)
[2022-01-02] MEDS: FAMOTIDINE 20 MG TAB PO SCH ×2 (09:20→21:31)
--- NOTE | 2022-01-02 15:46 | Hospitalist Progress Note ---
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 This favors a mild ileus Received gentle IV fluids Resolved Monitor Mild acute systolic CHF Exacerbation Valvular heart disease CXR as above ECHO: Mildly reduced LV systolic function with flattened septum consistent with RV pressure/volume overload, EF 45 to 50%. Moderately reduced RV systolic function. Moderate mitral regurgitation mild mitral valve prolapse. Severe tri cuspid regurgitation severe biatrial enlargement. 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: (7) HTN (hypertension): Plan: Continue metoprolol (8) GERD (gastroesophageal reflux disease): Plan: on PPI (9) Anxiety: (10) Anemia: Plan: Code Status: Full code DVT Px: on Eliquis Admission and Anticipated Discharge Date Admission Date: December 29, 2021 Subjective Patient is seen and examined at bedside Reports Nausea but no vomiting today Denies chest pain, dizziness, abd pain Reports Dyspnea on exertion Offers no other complaints Review of Systems Review of Systems: All systems reviewed & are unremarkable except as noted in Subjective Physical Exam Physical Exam: Physical Exam: Vitals signs as noted above General Appearance:Moderately built and nourished, no apparent distress Head: normocephalic, Atraumatic Eyes: normal inspection, EOMI Neck: supple, Trachea midline Respiratory/Chest: Normal breath sounds, CTA, No accessory muscle use Cardiovascular: Irregularly irregular, No murmur Abdomen/GI:Soft, Non tender, Bowel sounds present Extremities/Musculoskeletal:normal inspection, Trace pedal edema Neurologic/Psych:AAOX3, grossly no focal neurological deficits Skin: normal color, warm Results & Data Results & Data ([facility]) Vital Signs (Past 12 Hours) Vital Signs Temp Pulse Resp BP Pulse Ox 01/02/22 07:31 36.3 C L 89 16 139/88 97 01/02/22 07:09 71 20 96 Laboratory Results Short CBC 01/02/22 Range/Units 05:52 WBC 7.36 (4.8-10.8) K/uL Hgb 10.1 L (12.0-16.0) g/dL Hct 32.9 L (37-47) % Plt Count 264 (130-400) K/uL BMP 01/02/22 05:52 Sodium 142 Potassium 3.6 Chloride 110 H Carbon Dioxide 28 BUN 9 Creatinine 0.76 Glucose 83 Calcium 7.8 L (1) GERD (gastroesophageal reflux disease) Esophagitis presence: with esophagitis Qualified Code(s): K21.0 - Gastro- esophageal reflux disease with esophagitis
[2022-01-02] MEDS ORDERED: hydrALAZINE 10 MG TAB PO PRN (16:11)
[2022-01-03] MEDS: LEVOTHYROXINE SODIUM 88 MCG TABLET PO SCH (06:08)
[2022-01-03] MEDS: HEPARIN 100 UNIT/ML 5ML FLUSH FLUSH PRN (06:19)
[2022-01-03] MEDS: BUDESONIDE 0.5 MG/2 ML VIAL (PULMICORT) NEB SCH (07:00)
[2022-01-03] MEDS: FORMOTEROL 20 MCG/2 ML VIAL NEB SCH (07:00)
[2022-01-03 07:07] LABS: BUN Creatinine Ratio 10.1 (10-20); Calcium 7.8 mg/dl (8.5-10.1); Creatinine Clr Calc Pharmacy 70.9 ml/min; Est GFR (African American) 79.9 ml/min; Potassium 3.2 mmol/L (3.5-5.1)
[2022-01-03] MEDS: METOPROLOL SUCC 50MG EXT REL TAB PO SCH (08:10)
[2022-01-03] MEDS: APIXABAN 5 MG TABLET PO SCH (08:10)
[2022-01-03] MEDS: predniSONE 10 MG TABLET PO SCH (08:11)
[2022-01-03] MEDS: THIAMINE HCL 100 MG TAB PO SCH (08:11)
[2022-01-03] MEDS: FOLIC ACID 1 MG TAB PO SCH (08:11)
[2022-01-03] MEDS: FUROSEMIDE 20 MG TAB PO SCH (08:11)
[2022-01-03] MEDS: DICYCLOMINE HCL 10 MG CAP PO PRN (08:11)
[2022-01-03] MEDS: FERROUS SULFATE 325 MG TAB PO SCH (08:11)
[2022-01-03] MEDS: CYANOCOBALAMIN (B-12) 500 MCG TABLET PO SCH (08:11)
[2022-01-03] MEDS: FAMOTIDINE 20 MG TAB PO SCH (08:12)
[2022-01-03] MEDS: PROMETHAZINE HCL 12.5 MG in SODIUM CHLORIDE 0.9% 50 ML IV PRN (08:55)
[2022-01-03] MEDS ORDERED: POTASSIUM CHLORIDE CRTAB 20 MEQ TABCR PO ONE (10:00)
--- NOTE | 2022-01-03 13:19 | Hospitalist Progress Note ---
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 This favors a mild ileus Received gentle IV fluids Resolved Monitor Mild acute systolic CHF Exacerbation Valvular heart disease CXR as above ECHO: Mildly reduced LV systolic function with flattened septum consistent with RV pressure/volume overload, EF 45 to 50%. Moderately reduced RV systolic function. Moderate mitral regurgitation mild mitral valve prolapse. Severe tricuspid regurgitation severe biatrial enlargement. 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 Follows with GI as outpatient Received IV Emend Continue prn promethazine Continue PPI/H2 lauren Patient currently not interested in GI evaluation Advanced to Gastroparesis diet (3) Gastroparesis: Plan: Management as above (4) H/O irritable bowel syndrome: Plan: - Continue dicyclomine (5) Atrial fibrillation, chronic: Plan: Continue metoprolol On Eliquis for anticoagulation (6) Current use of intermediate anticoagulation: (7) HTN (hypertension): Plan: Continue metoprolol (8) GERD (gastroesophageal reflux disease): Plan: on PPI (9) Anxiety: (10) Anemia: Plan: Code Status: Full code DVT Px: on Eliquis Admission and Anticipated Discharge Date Admission Date: December 29, 2021 Subjective Patient is seen and examined at bedside Has chronic nausea Denies chest pain, dizziness, abd pain, vomiting Dyspnea on exertion resolved Review of Systems Review of Systems: All systems reviewed & are unremarkable except as noted in Subjective Physical Exam Physical Exam: Physical Exam: Vitals signs as noted above General Appearance:Moderately built and nourished, no apparent distress Head: normocephalic, Atraumatic Eyes: normal inspection, EOMI Neck: supple, Trachea midline Respiratory/Chest: Normal breath sounds, CTA, No accessory muscle use Cardiovascular: Irregularly irregular, No murmur Abdomen/GI:Soft, Non tender, Bowel sounds present Extremities/Musculoskeletal:normal inspection, Trace pedal edema Neurologic/Psych:AAOX3, grossly no focal neurological deficits Skin: normal color, warm Results & Data Results & Data ([facility]) Vital Signs (Past 12 Hours) Vital Signs Temp Pulse Resp BP Pulse Ox 01/03/22 07:30 36.7 C 62 16 135/98 97 01/03/22 07:01 75 16 98 Laboratory Results [facility] 01/03/22 06:21 Sodium 143 Potassium 3.2 L Chloride 108 H Carbon Dioxide 29 BUN 9 Creatinine 0.89 Glucose 83 Calcium 7.8 L (1) GERD (gastroesophageal reflux disease) Esophagitis presence: with esophagitis Qualified Code(s): K21.0 - Gastro- esophageal reflux disease with esophagitis
--- NOTE | 2022-01-03 13:48 | Discharge Summary ---
Date of Service January 03, 2022 Admission HPI Per Admitting Provider This is a 61 y/o female with a PMH of atrial fibrillation, tachybrady syndrome s/p PPM, hx hiatal hernia s/p gastric sleeve with subsequent development of gastroparesis, prolonged QT, COPD, CKD3, hx anemia, hypothyroidism, and generalized anxiety who was referred to the ED today from her PCP office with dyspnea and racing heart. Pt reports that she had COVID in Aug 2021 and Sep 2021 and since then, her breathing hasn't been right. However, her respiratory status has particularly worsened over the past week. She now reports dyspnea at rest, orthopnea, wheezing, and chest tightness. She denies cough, fevers, c hills, dizziness or edema. She has also noted worsening of her chronic nausea that is related to gastroparesis. She recently saw GI and was started on weekly oral Emend, with her last dose being yesterday. Due to her prior surgery, she is unable to vomit but has had frequent episodes of dry heaves. Increased acid reflux and eructation. She also has chronic issues with diarrhea-predominant IBS. She was recently tried on Colestipol but found this too constipating so she went back to using dicyclomine. No melena or hematochezia. She has noted bloating with associated generalized abdominal discomfort but worse in the epigastric area. Last bowel movement was earlier today - loose with urgency. Admission Exam Per Admitting Provider Constitutional: well developed and well nourished; no acute distress Eyes: + anicteric sclerae ENMT: external ear and nose normal, oropharynx normal Neck: trachea midline Respiratory: no respiratory distress and no labored breathing Auscultation: + wheezes; no rales and no rhonchi Cardiovascular: Rate/Rhythm: + tachycardic and + irregularly irregular Vessels: dorsalis pedis pulses present and radial pulses present port in right chest Gastrointestinal (Abdomen): Inspection/Auscultation: + abdomen distended and normal bowel sounds Percussion/Palpation: + abdomen tender (epigastric) and abdomen soft Musculoskeletal: Head/Neck/Chest: normocephalic, head atraumatic and neck supple Skin: no jaundice few erythematous areas perioral area Neurologic: moves all extremities; no focal motor deficits and not confused Psychiatric: Orientation: alert and oriented x 3 Principal Diagnosis Mild COPD Exacerbation--Resolved Ileus--Resolved Mild acute systolic CHF Exacerbation Severe Gastroparesis Discharge Data Allergies Allergy/AdvReac Type Severity Reaction Status Date / Time adhesive Allergy Mild POWERS SKIN Verified 12/29/21 12:43 capsaicin Allergy Mild ITCHINESS Verified 12/29/21 12:43 amoxicillin AdvReac Intermediate yeast Verified 12/29/21 12:43 infection scopolamine AdvReac Intermediate rash from Verified 12/29/21 12:43 patch NSAIDS (Non-Steroidal AdvReac Mild indegestion Verified 12/29/21 12:43 Anti-Inflamma rofecoxib AdvReac Mild indigestion Verified 12/29/21 12:43 Consultations 12/29/21 13:45 ED Decision to Admit Stat Ordered Studies 12/31/21 19:23 CT head/brain wo con Urgent Hospital Course (1) Acute exacerbation of chronic obstructive pulmonary disease: Mild COPD Exacerbation Ongoing Tobacco use CXR:Stable cardiomegaly and bibasilar linear densities suggesting subsegmental atelectasis Continue Nebs as needed 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 This favors a mild ileus Received gentle IV fluids Resolved Monitor Mild acute systolic CHF Exacerbation Valvular heart disease CXR as above ECHO: Mildly reduced LV systolic function with flattened septum consistent with RV pressure/volume overload, EF 45 to 50%. Moderately reduced RV systolic function. Moderate mitral regurgitation mild mitral valve prolapse. Severe tricuspid regurgitation severe biatrial enlargement. 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: (7) HTN (hypertension): Continue metoprolol (8) GERD (gastroesophageal reflux disease): on PPI (9) Anxiety: (10) Anemia: Code Status: Full code DVT Px: on Eliquis Total Time Total Time Spent Total Time Spent (In Minutes): 43 minutes Discharge Plan Discharge Items Patient Disposition: Home - Self-Care Reason For Visit: INTRACTABLE N/V Discharge Diagnosis: Mild COPD Exacerbation--Resolved Ileus--Resolved Mild acute systolic CHF Exacerbation Severe Gastroparesis Activity: Per Instructions section Exercise/Sports: Gradually increase as tolerated Non-emergency contact: Primary Care Provider and Pressing Department Supervisor Call non-emergency contact if: you have any medication questions, your symptoms worsen, your pain is concerning for you and you have a fever Follow-up/Referrals: [facility] Cardiology [Other] (The cardiology office will call you with an appointment for follow up.) Jaleel Coppola MD [Primary Care Provider] - (Date & Time 01/06/2022 3:40 PM Provider Thom Kwon MD Department Family Medicine [facility] ) Dietitian Info: Gastroparesis Diet Diet: Heart Healthy Addtl Attending Provider Instructions: Follow up with your PCP on 01/06/2022 3:40 PM Follow up with your Medical Case Manager in 2 weeks. [facility] cardiology will call you with an appointment. Follow-up with your leasing associate as needed --Quit Smoking Tobacco as advised --Quit drinking Alcohol as advised. Call your Primary Care doctor if any of the following symptoms or problems start or get worse: * Shortness of breath or difficulty breathing * Wake up at night short of breath * Chest pain * Cough * Swelling of your hands, feet, or legs * More fatigued or tired with your normal activity * Palpitations - sudden fast heart beats WEIGHT * Weigh yourself every morning after using the bathroom. * Use the same scale. * Wear the same amount of clothing. * Write your weight down on a chart. * Call your Primary Care doctor if you gain more than 2-3 pounds in 1-2 days. MEDICATIONS * Use this discharge instruction sheet for medication instructions. * Take your medications at the time your doctor ordered. * Do not skip a dose of your medicines. * If you miss a dose of medicine, take it as soon as possible, but DO NOT DOUBLE A DOSE. * Read your medicine information when you get home. * Know all of the side effects of your medicine. If in doubt, ask your pharmacist * Call your Primary Care doctor's office if you have any side effects. * Be sure all of your doctors know what medicine and herbs you take (including cold, flu, and herbal medicine). Take the following with you to your follow-up doctor appointments: * Weight Chart * Medication List * List of questions Do not drink excessive alcohol, beer or wine. Seek immediate medical attention if your symptoms reoccur or worsen Please take all medications as instructed on discharge list below. Please call if you have any questions or problems. You can reach a [facility] hospitalist on duty at [facility] 24 hours a day by calling [phone] Pending Studies at Discharge: No Stand-Alone Forms: My [facility] [employer], Smoking Cessation Medications and DC Order Prescriptions: New furosemide 20 mg Tablet 20 mg PO QAM Qty: 30 RF: 0 potassium chloride 10 mEq Tablet,Er Particles/Crystals 10 meq PO DAILY Qty: 30 RF: 0 Continued dicyclomine 10 mg capsule 10 mg PO BID PRN (Reason: Abdominal Discomfort) RF: 0 levothyroxine [Synthroid] 88 mcg tablet 88 mcg PO QAM Qty: 30 RF: 0 cyanocobalamin (vitamin B-12) [Vitamin B-12] 1,000 mcg Tablet 1,000 mcg PO DAILY RF: 0 vit-iron fum-folic ac 65 mg iron- 1 mg Tablet 1 tab PO HS RF: 0 Eliquis 5 mg tablet 5 mg PO BID RF: 0 promethazine 25 mg tablet 25 mg PO Q6H PRN (Reason: Nausea) 10 Days Qty: 30 RF: 0 metoprolol succinate [Toprol XL] 100 mg tablet extended release 24 hr 100 mg PO BID Qty: 60 RF: 0 omeprazole 20 mg capsule,delayed release(DR/EC) 20 mg PO AMHS RF: 0 aprepitant 80 mg capsule 80 mg PO WK PRN (Reason: Nausea) RF: 0 famotidine [Pepcid] 20 mg Tablet 20 mg PO BID RF: 0 ferrous sulfate 325 mg (65 mg iron) Tablet 325 mg PO DAILY RF: 0 Discharge Orders: Discharge Order (Routine); Ordered 01/03/22 Ordered By: Leonidas Meraz/Other Patient Handouts: Gastroparesis Admission Data Admit Date/Time: 12/29/21 14:38 Attending Provider: Leonidas Sumner Admit Provider: Cm Swan Primary Care Provider: Jaleel Coppola Other Providers: Cm Swan
[2022-01-04] MEDS ORDERED: POTASSIUM CHLORIDE 10 MEQ TABCR PO SCH (09:00)
== END 2022-01-03 16:39 | disposition home or self-care (01) ==
LOC: ED 11:34 → 3N 14:38 → SUATTDRO 14:38 → INTOOBSV 14:38 → 3N 17:28
DX: Z91.018 Allergy to other foods; Z95.0 Presence of cardiac pacemaker; Z79.01 Long term (current) use of anticoagulants; N18.30 Chronic kidney disease, stage 3 unspecified; I48.20 Chronic atrial fibrillation, unspecified; J45.909 Unspecified asthma, uncomplicated; E03.9 Hypothyroidism, unspecified; K21.9 Gastro-esophageal reflux disease without esophagitis; F41.9 Anxiety disorder, unspecified; J44.1 Chronic obstructive pulmonary disease with (acute) exacerbation; K31.84 Gastroparesis; R11.2 Nausea with vomiting, unspecified; Z91.048 Other nonmedicinal substance allergy status; I12.9 Hypertensive chronic kidney disease with stage 1 through stage 4 chronic kidney disease, or unspecified chronic kidney disease; Z79.899 Other long term (current) drug therapy; F17.210 Nicotine dependence, cigarettes, uncomplicated; D64.9 Anemia, unspecified

== ENCOUNTER 2022-01-04 23:21 | Observation (INO) ==
[2022-01-05] MEDS ORDERED: METOCLOPRAMIDE HCL INJ 5 MG/ML 2 ML VIAL IV ONE ×2 (00:21→02:55)
[2022-01-05] MEDS ORDERED: ACETAMINOPHEN 1,000 MG/100 ML VIAL IV STA (00:21)
[2022-01-05] MEDS ORDERED: diphenhydrAMINE 50 MG/ML VIAL IV STA (00:21)
--- NOTE | 2022-01-05 00:29 | Emergency Department Note ---
History of Present Illness General Chief complaint: Abdominal Pain Stated complaint: Upper Gastric Pain, Nausea Time Seen by Provider: 01/05/22 00:00 Source: patient Mode of arrival: ambulatory Limitations: no limitations History of Present Illness Provider complaint: abdominal pain, nausea, numbness Onset (ago): day(s) 1 Location: abdomen Radiation: non-radiation Severity: moderate Pain Consistency: + constant Maximum Pain Intensity: 6 Associated symptoms: + loss of appetite, + malaise and + nausea/vomiting Treatments prior to arrival: none This is a 61-year-old female who presents due to concern for abdominal pain and numbness. Patient states around 1 PM today she began developing numbness in bilateral hands and feet as well as left side of her face. Patient states she has had this previously and does not know the etiology. She states around 2 or so she began developing left upper quadrant abdominal pain, epigastric abdominal pain, and nausea. She states the symptoms seem similar to prior episodes of gas troparesis. Patient states she was recently admitted with gastroparesis. She denies fevers or chills. Patient states she has previously seen GI. Patient states gastroparesis began 10 years ago following surgery for a hiatal hernia. Patient states she did have a normal bowel movement yesterday. Patient states she was just discharged from the hospital 2 days ago. Pt seen during a time of high acuity and national emergency pandemic while wearing PPE. Home Medications Medication Instructions Recorded Confirmed Type levothyroxine 88 mcg tablet 88 mcg PO QAM #30 tab 12/16/19 01/05/22 Rx (Synthroid) dicyclomine 10 mg capsule 10 mg PO BID PRN 12/17/19 01/05/22 History apixaban 5 mg tablet (Eliquis) 5 mg PO BID 10/02/21 01/05/22 History cyanocobalamin (vitamin B-12) 1,000 mcg PO DAILY 10/02/21 01/05/22 History 1,000 mcg tablet (Vitamin B-12) vitamins-iron fumarate 65 1 tab PO HS 10/02/21 01/05/22 History mg iron-folic acid 1 mg tablet metoprolol succinate 100 mg 100 mg PO BID #60 tab 11/18/21 01/05/22 Rx tablet,extended release 24 hr (Toprol XL) promethazine 25 mg tablet 25 mg PO Q6H PRN 10 Days #30 tab 12/09/21 01/05/22 Rx aprepitant 80 mg capsule 80 mg PO WK PRN 12/29/21 01/05/22 History famotidine 20 mg tablet (Pepcid) 20 mg PO BID 12/29/21 01/05/22 History ferrous sulfate 325 mg (65 mg 325 mg PO DAILY 12/29/21 01/05/22 History iron) tablet omeprazole 20 mg capsule,delayed 20 mg PO AMHS 12/29/21 01/05/22 History release furosemide 20 mg tablet 20 mg PO QAM #30 tab 01/03/22 01/05/22 Rx potassium chloride 10 mEq 10 meq PO DAILY #30 tab 01/03/22 01/05/22 Rx tablet,extended release(part/cryst) Allergies Allergy/AdvReac Type Severity Reaction Status Date / Time adhesive Allergy Mild POWERS SKIN Verified 01/05/22 03:05 capsaicin Allergy Mild ITCHINESS Verified 01/05/22 03:05 amoxicillin AdvReac Intermediate yeast Verified 01/05/22 03:05 infection scopolamine AdvReac Intermediate rash from Verified 01/05/22 03:05 patch NSAIDS (Non-Steroidal AdvReac Mild indegestion Verified 01/05/22 03:05 Anti-Inflamma rofecoxib AdvReac Mild indigestion Verified 01/05/22 03:05 Past Med/Surg History Medical History Acidosis, lactic Anxiety Asthma COPD (chronic obstructive pulmonary disease) COVID-19 COVID-19 Depression Diverticulosis Frequent PVCs Gastroparesis GERD (gastroesophageal reflux disease) H/O irritable bowel syndrome HTN (hypertension) Hypokalemia Hypomagnesemia Hypomagnesemia Hypophosphatemia Hypothyroidism Intractable nausea and vomiting Intractable vomiting with nausea Mitral regurgitation "moderate per echo 09/21/15" Nausea & vomiting Neuropathy Pemphigus vulgaris Prolonged QT interval Tobacco abuse Surgical History H/O oophorectomy History of bladder surgery History of laparoscopic partial gastrectomy History of pyloroplasty History of total hysterectomy Hx of cholecystectomy Hx of tonsillectomy S/P hysterectomy S/P laparoscopic sleeve gastrectomy S/P partial gastrectomy S/P repair of paraesophageal hernia "resulted in volvulus, required abdominal exploration" S/P tonsillectomy and adenoidectomy Status post cardiac pacemaker procedure Family History Mother DM type 2 (diabetes mellitus, type 2) Coronary heart disease Social History Smoking Status: Current some day smoker Tobacco Type: Cigarettes Cigarettes Per Day: 20; Second Hand Exposure: No; Hx Alcohol Use: Yes Alcohol type: beer Alcohol Intake Frequency Comment: 3-4 beers/week Hx Substance Use: No Preferred Language: Colombian Communication Ability: Effective [employer] Required: No Beliefs That Will Affect Care: None marital status: / Current Living Situation: Family Current Living Situation Comment: Daughter How many Children do You have: 1 Feels Safe at Home: Yes Assistive Devices: Glasses Review of Systems A total of 10 systems reviewed and were otherwise negative All systems reviewed & are unremarkable except as noted in HPI & below Physical Exam Vital Signs Vital Signs - 24 hr 01/04/22 23:29 01/05/22 01:01 01/05/22 03:00 Temperature 36.9 C Temperature Source Oral Pulse Rate 124 H Pulse Rate [Finger] 128 H 116 H Pulse Rhythm Irregular Pulse Rhythm [Finger] Irregular Respiratory Rate 26 H 24 24 Blood Pressure 116/84 Blood Pressure [Right Arm] 132/96 133/101 H Blood Pressure Mean 94 Blood Pressure Mean [Right Arm] 108 111 Pulse Oximetry 96 91 96 Oxygen Delivery Method Room Air Room Air Room Air Sepsis Recent Fever Within 48 Hours No Sepsis New/Unexplained Change in Mental Status N/A Sepsis Action Taken by Nursing Physician Notified GENERAL: alert, well appearing, well nourished, no distress, non-toxic EYE EXAM: normal conjunctiva, PERRL and EOM's grossly intact OROPHARYNX: no exudate, no erythema, lips, buccal mucosa, and tongue normal and mucous membranes are moist NECK: supple, no nuchal rigidity, no adenopathy, non-tender LUNGS: Clear to auscultation. Normal chest wall mechanics, no w/r/r HEART: no murmurs, S1 normal and S2 normal ABDOMEN: abdomen soft, non-tender, normo-active bowel sounds, no masses, no rebound or guarding. BACK: Back is symmetrical on inspection and there is no deformity, no midline tenderness, no CVA tenderness. SKIN: no rashes and no bruising UPPER EXTREMITIES: upper extremities are grossly normal. FROM, nml pulses b/l. LOWER EXTREMITIES: No pitting edema. FROM, nml pulses b/l. NEURO EXAM: Normal sensorium, cranial nerves II-XII grossly intact, normal speech, no gross weakness of arms, no gross weakness of legs. Gross sensation intact. Course Administered Medications Acetaminophen (Acetaminophen 325 Mg Tab) 650 mg PO Q4H PRN PRN Reason: Pain or Fever Stop: 02/04/22 05:25 Last Admin: 01/06/22 21:10 Dose: 650 mg Documented by: [id number] Apixaban (Apixaban 5 Mg Tablet) 5 mg PO BID RUSSELL Stop: 02/04/22 08:59 Last Admin: 01/06/22 21:11 Dose: 5 mg Documented by: [id number] Admin: 01/06/22 07:46 Dose: 5 mg Documented by: [id number] Admin: 01/05/22 21:23 Dose: 5 mg Documented by: [id number] Admin: 01/05/22 09:11 Dose: 5 mg Documented by: [id number] Atorvastatin Calcium (Atorvastatin 40 Mg Tab) 40 mg PO QAM RUSSELL Stop: 02/04/22 10:59 Last Admin: 01/06/22 07:45 Dose: 40 mg Documented by: [id number] Admin: 01/05/22 12:30 Dose: 40 mg Documented by: [id number] Ferrous Sulfate (Ferrous Sulfate 325 Mg Tab) 325 mg PO DAILY RUSSELL Stop: 02/04/22 08:59 Last Admin: 01/06/22 07:45 Dose: 325 mg Documented by: [id number] Admin: 01/05/22 09:12 Dose: 325 mg Documented by: [id number] Furosemide (Furosemide 20 Mg Tab) 20 mg PO QAM RUSSELL Stop: 02/04/22 08:59 Last Admin: 01/06/22 07:45 Dose: 20 mg Documented by: [id number] Admin: 01/05/22 09:12 Dose: 20 mg Documented by: [id number] Hydromorphone HCl (Hydromorphone Inj 0.5 Mg/0.5 Ml Syr) 0.5 mg IV Q3H PRN PRN Reason: Pain Stop: 01/19/22 05:25 Last Admin: 01/05/22 06:14 Dose: 0.5 mg Documented by: [id number] Promethazine HCl 12.5 mg/ (Sodium Chloride) 50.5 mls @ 202 mls/hr IV Q6H PRN PRN Reason: Nausea And Vomiting Stop: 02/04/22 05:25 Last Infusion: 01/05/22 15:56 Dose: 0 mls/hr Documented by: [id number] Admin: 01/05/22 15:01 Dose: 202 mls/hr Documented by: [id number] Infusion: 01/05/22 06:35 Dose: 0 mls/hr Documented by: [id number] Admin: 01/05/22 06:13 Dose: 202 mls/hr Documented by: [id number] Famotidine 20 mg/ Syringe 5 mls @ 2.5 mls/min IV BID RUSSELL Stop: 02/04/22 08:59 Last Admin: 01/06/22 21:22 Dose: 2.5 mls/min Documented by: [id number] Admin: 01/06/22 07:48 Dose: 2.5 mls/min Documented by: [id number] Admin: 01/05/22 21:49 Dose: 2.5 mls/min Documented by: [id number] Admin: 01/05/22 09:11 Dose: 2.5 mls/min Documented by: [id number] Levothyroxine Sodium (Levothyroxine Sodium 88 Mcg Tablet) [facility] Stop: 02/04/22 06:29 Last Admin: 01/06/22 06:05 Dose: 88 mcg Documented by: [id number] Admin: 01/05/22 07:45 Dose: 88 mcg Documented by: [id number] Metoprolol Succinate (Metoprolol Succ 50mg Ext Rel Tab) 100 mg PO BID RUSSELL Stop: 02/04/22 08:59 Last Admin: 01/06/22 21:11 Dose: 100 mg Documented by: [id number] Admin: 01/06/22 07:44 Dose: 100 mg Documented by: [id number] Admin: 01/05/22 21:23 Dose: 100 mg Documented by: [id number] Admin: 01/05/22 09:13 Dose: 100 mg Documented by: [id number] Potassium Chloride (Potassium Chloride 10 Meq Tabcr) 10 meq PO DAILY RUSSELL Stop: 02/04/22 08:59 Last Admin: 01/06/22 07:48 Dose: 10 meq Documented by: [id number] Admin: 01/05/22 09:12 Dose: 10 meq Documented by: [id number] Prenat Multivit/[place]/Iron/Folic Ac ( Vitamin 1 Tab) 1 tab PO HS RUSSELL Stop: 02/04/22 20:59 Last Admin: 01/06/22 21:10 Dose: 1 tab Documented by: [id number] Admin: 01/05/22 21:23 Dose: 1 tab Documented by: [id number] Discontinued Medications Aspirin (Aspirin 81 Mg Ectab) 81 mg PO QAM RUSSELL Stop: 02/04/22 10:59 Last Admin: 01/06/22 07:44 Dose: 81 mg Documented by: [id number] Admin: 01/05/22 12:30 Dose: 81 mg Documented by: [id number] Diphenhydramine HCl (Diphenhydramine 50 Mg/Ml Vial) 12.5 mg IV NOW STA Stop: 01/05/22 00:22 Last Admin: 01/05/22 00:38 Dose: 12.5 mg Documented by: [id number] Fentanyl Citrate (Fentanyl Citrate 100 Mcg/2 Ml Vial) 50 mcg IV Q15M PRN PRN Reason: Pain Stop: 01/19/22 01:10 Last Admin: 01/05/22 01:15 Dose: 50 mcg Documented by: [id number] Gadobutrol (Gadobutrol 65ml Vial) 8.8 ml IV ONCE ONE Stop: 01/05/22 13:11 Last Admin: 01/05/22 13:07 Dose: 8.8 ml Documented by: [id number] Sodium Chloride (Nss 1000ml) 1,000 mls @ 125 mls/hr IV .Q8H RUSSELL Stop: 02/04/22 00:29 Last Infusion: 01/05/22 06:36 Dose: 0 mls/hr Documented by: [id number] Admin: 01/05/22 00:39 Dose: 125 mls/hr Documented by: [id number] Acetaminophen (Ofirmev) 1,000 mg in 100 mls @ 400 mls/hr IV NOW STA Stop: 01/05/22 00:35 Last Infusion: 01/05/22 01:12 Dose: 0 mls/hr Documented by: [id number] Admin: 01/05/22 00:38 Dose: 400 mls/hr Documented by: [id number] Potassium Chloride (K James / Wtr) 10 meq in 100 mls @ 100 mls/hr IV Q1H STA; Protocol Stop: 01/05/22 05:07 Last Infusion: 01/05/22 05:20 Dose: 0 mls/hr Documented by: [id number] Admin: 01/05/22 04:19 Dose: 100 mls/hr Documented by: [id number] Dextrose/Sodium Chloride (D5w And Nss) 1,000 mls @ 100 mls/hr IV .Q10H RUSSELL Stop: 02/04/22 05:25 Last Admin: 01/06/22 12:12 Dose: Not Given Documented by: [id number] Infusion: 01/06/22 12:12 Dose: 0 mls/hr Documented by: [id number] Admin: 01/06/22 01:08 Dose: 100 mls/hr Documented by: [id number] Infusion: 01/06/22 00:23 Dose: 100 mls/hr Documented by: [id number] Admin: 01/05/22 14:23 Dose: 100 mls/hr Documented by: [id number] Infusion: 01/05/22 14:23 Dose: 100 mls/hr Documented by: [id number] Admin: 01/05/22 06:12 Dose: 100 mls/hr Documented by: [id number] Fosaprepitant 150 mg/ Sodium (Chloride) 145 mls @ 300 mls/hr IV 1030 ONE Stop: 01/05/22 10:58 Last Infusion: 01/05/22 12:00 Dose: 0 mls/hr Documented by: [id number] Admin: 01/05/22 11:15 Dose: 300 mls/hr Documented by: [id number] Ioversol (Optiray 320 100ml) 100 ml IV ONCE ONE Stop: 01/05/22 01:47 Last Admin: 01/05/22 01:47 Dose: 93 ml Documented by: [id number] Ioversol (Optiray 320 125ml) 120 ml IV ONCE ONE Stop: 01/05/22 17:36 Last Admin: 01/05/22 17:35 Dose: 120 ml Documented by: [id number] Metoclopramide HCl (Metoclopramide Hcl Inj 5 Mg/Ml 2 Ml Vial) 5 mg IV ONE ONE Stop: 01/05/22 00:22 Last Admin: 01/05/22 00:38 Dose: 5 mg Documented by: [id number] Metoclopramide HCl (Metoclopramide Hcl Inj 5 Mg/Ml 2 Ml Vial) 5 mg IV ONE ONE Stop: 01/05/22 02:56 Last Admin: 01/05/22 03:02 Dose: 5 mg Documented by: [id number] Morphine Sulfate (Morphine Sulfate 4 Mg/Ml 1 Ml Carp\\Vial) 4 mg IV NOW STA Stop: 01/05/22 02:56 Last Admin: 01/05/22 03:02 Dose: 4 mg Documented by: [id number] Promethazine HCl (Promethazine 12.5 Mg/50.5 Ml Nss) Confirm Administered Dose 12.5 mg IV .STK-MED ONE Stop: 01/05/22 06:06 Last Admin: 01/05/22 06:13 Dose: Not Given Documented by: [id number] Medical Decision Making Differential Diagnosis Differential diagnoses includes but is not limited to gastritis, peptic ulcer disease, GERD, gallbladder disease, pancreatitis, small bowel obstruction, acute coronary syndrome, pericarditis, ischemic bowel, irritable bowel disease, irritable bowel syndrome, appendicitis, diverticulitis, malignancy, hernia, urinary tract infection, torsion, [/ectopic (if female)], perforation, trauma, infectious. Medical Records Attestation: I reviewed the patient's medical records. Home Medications Current Medication List: was personally reviewed by me Laboratory Data Attestation: I reviewed the patient's lab results. Result diagrams: 01/06/22 08:46 01/06/22 08:46 Lab Results 01/05/22 01/05/22 01/05/22 Range/Units 00:28 00:28 00:28 WBC 11.83 H (4.8-10.8) K/uL RBC 4.91 (4.2-5.4) M/uL Hgb 11.8 L (12.0-16.0) g/dL Hct 38.4 (37-47) % MCV 78.2 L (80-100) fL MCH 24.0 L (25-34) pg MCHC 30.7 L (32-36) g/dL RDW Std Deviation 55.4 H (36.4-46.3) fL RDW Coeff of Ana M 20.1 H (11.5-14.5) % Plt Count 344 (130-400) K/uL MPV 9.7 (7.4-10.4) fL Immature Gran % (Auto) 0.4 % Neut % (Auto) 60.9 % Lymph % (Auto) 28.7 % Moca % (Auto) 8.9 % Eos % (Auto) 0.9 % Baso % (Auto) 0.2 % Neut # (Auto) 7.21 H (1.4-6.5) K/uL Lymph # (Auto) 3.39 (1.2-3.4) K/uL Moca # (Auto) 1.05 H (0.11-0.59) K/uL Eos # (Auto) 0.11 (0-0.5) K/uL Baso # (Auto) 0.02 (0-0.2) K/uL Immature Gran # (Auto) 0.05 H (0.00-0.02) K/uL Polychromasia 1+ Anisocytosis Present Ovalocytes 1+ Sodium 143 (136-145) mmol/L Potassium 3.4 L (3.5-5.1) mmol/L Chloride 104 (98-107) mmol/L Carbon Dioxide 25 (21-32) mmol/L Anion Gap 14 H (3-11) BUN 11 (6-23) mg/dl Creatinine 0.92 (0.6-1.2) mg/dl Est Cr Clr Drug Dosing Not Reportable Est GFR ( Amer) 76.8 ml/min Est GFR (Non-Af Amer) 66.3 ml/min BUN/Creatinine Ratio 12.0 (10-20) Glucose 92 (70-99(Fasting)) mg/dl Lactate 2.0 (0.4-2.0) mmol/L Calcium 8.6 (8.5-10.1) mg/dl Magnesium 1.7 (1.7-2.4) mg/dl Total Bilirubin 0.5 (0.2-1.0) mg/dl AST 14 (13-39) U/L ALT 21 (7-52) U/L Alkaline Phosphatase 88 (34-104) U/L Troponin I High Sens 9.9 (0-14) pg/ml Total Protein 6.0 (6.0-8.3) gm/dl Albumin 3.7 (3.4-5.0) gm/dl Globulin 2.3 L (2.5-4.0) gm/dl Albumin/Globulin Ratio 1.6 (0.9-2) Lipase 18 (11-82) U/L SARS-CoV-2, RNA, NAAT (NEGATIVE) 01/05/22 Range/Units 02:54 WBC (4.8-10.8) K/uL RBC (4.2-5.4) M/uL Hgb (12.0-16.0) g/dL Hct (37-47) % MCV (80-100) fL MCH (25-34) pg MCHC (32-36) g/dL RDW Std Deviation (36.4-46.3) fL RDW Coeff of Ana M (11.5-14.5) % Plt Count (130-400) K/uL MPV (7.4-10.4) fL Immature Gran % (Auto) % Neut % (Auto) % Lymph % (Auto) % Moca % (Auto) % Eos % (Auto) % Baso % (Auto) % Neut # (Auto) (1.4-6.5) K/uL Lymph # (Auto) (1.2-3.4) K/uL Moca # (Auto) (0.11-0.59) K/uL Eos # (Auto) (0-0.5) K/uL Baso # (Auto) (0-0.2) K/uL Immature Gran # (Auto) (0.00-0.02) K/uL Polychromasia Anisocytosis Ovalocytes Sodium (136-145) mmol/L Potassium (3.5-5.1) mmol/L Chloride (98-107) mmol/L Carbon Dioxide (21-32) mmol/L Anion Gap (3-11) BUN (6-23) mg/dl Creatinine (0.6-1.2) mg/dl Est Cr Clr Drug Dosing Est GFR ( Amer) ml/min Est GFR (Non-Af Amer) ml/min BUN/Creatinine Ratio (10-20) Glucose (70-99(Fasting)) mg/dl Lactate (0.4-2.0) mmol/L Calcium (8.5-10.1) mg/dl Magnesium (1.7-2.4) mg/dl Total Bilirubin (0.2-1.0) mg/dl AST (13-39) U/L ALT (7-52) U/L Alkaline Phosphatase (34-104) U/L Troponin I High Sens (0-14) pg/ml Total Protein (6.0-8.3) gm/dl Albumin (3.4-5.0) gm/dl Globulin (2.5-4.0) gm/dl Albumin/Globulin Ratio (0.9-2) Lipase (11-82) U/L SARS-CoV-2, RNA, NAAT NEGATIVE (NEGATIVE) Imaging Data Radiologist's Impression: CT abdomen and pelvis with contrast: Comparison: 12/02/2019. Mild cardiomegaly. Mild bilateral lower lobe atelectasis. Status post cholecystectomy with mild nonspecific biliary distention. Normal pancreas and spleen. Normal left adrenal gland. Low- attenuation lesion within the right adrenal gland measuring 2.4 x 1.5 cm, stable in the interval. Tiny small cyst within the right kidney, stable, otherwise normal right kidney. Normal left kidney. Postoperative changes of the stomach. Multiple loops of small bowel distended up to a diameter of 4 cm raising the concern of small bowel obstruction with zone of transition indeterminate, likely within the mid distal small bowel. Descending colon is decompressed. The appendix is normal. Normal urinary bladder. Status post hysterectomy. Mild osteopenia otherwise unremarkable spine. No free fluid. Minor atherosclerosis of aorta otherwise normal aorta. Radiologist: Negin Whitt MD ECG Data Attestation: I personally reviewed and interpreted this ECG as follows: Indication: + abdominal pain and + nausea Rate (beats per minute): 109 Rhythm: + atrial fibrillation ECG Intervals/blocks: + Normal QRS and + Normal QT ECG [place]: + Normal ECG ST segments: + Nonspecific ST abnormalities MDM Narrative This is a 61 yo female who presents with abd pain and nausea. Patient recently discharged from hospital. Hx of gastroparesis which was patient's initial concern. Labs and imaging performed and pt found to have SBO. Given no vomit ing and hx of surgery for hiatal hernia, NG tube not immediately placed. Will defer to surgery. Gentle IVF hydration and medication for nausea and pain given while in the ER. Patient and family made aware of all results and need for inpatient mgmt again. VS stable while in the ER. CAse discussed with hospitalist. An order was placed for continuous cardiac monitoring. The monitor shows a rate of _95__ with __a.fib_ rhythm. Impression & Plan Abdominal pain, Nausea, Small bowel obstruction, Hypokalemia Discharge Plan Visit Data Chief Complaint: Abdominal Pain Stated Complaint: Upper Gastric Pain, Nausea ED Provider: Laury Adkins Discharge Problem: Abdominal pain, Nausea, Small bowel obstruction, Hypokalemia Patient Disposition: Admitted As Inpatient Discharge Instructions Interventions: ED Discharge Assessment Last Done: 01/05/22 13:30 Discharge Problem: Abdominal pain Qualifiers: Abdominal location: left upper quadrant Qualified Code(s): R10.12 - Left upper quadrant pain
[2022-01-05] MEDS ORDERED: SODIUM CHLORIDE 0.9% 1000ML 1,000 ML IV SCH (00:30)
[2022-01-05 00:40] LABS: Basophils # (auto) 0.02 K/uL (0-0.2); Basophils % (auto) 0.2 %; Eosinophils # (auto) 0.11 K/uL (0-0.5); Eosinophils % (auto) 0.9 %; Hematocrit (blood only) 38.4 % (37-47); Hemoglobin 11.8 g/dL (12.0-16.0); Immature Granulocytes # (auto) 0.05 K/uL (0.00-0.02); Immature Granulocytes % (auto) 0.4 %; Lymphocytes # (auto) 3.39 K/uL (1.2-3.4); Lymphocytes % (auto) 28.7 %; Mean Corpuscular Hgb Conc 30.7 g/dL (32-36); Mean Corpuscular Volume 78.2 fL (80-100); Mean Platelet Volume 9.7 fL (7.4-10.4); Monocytes # (auto) 1.05 K/uL (0.11-0.59); Monocytes % (auto) 8.9 %; Neutrophils # (auto) 7.21 K/uL (1.4-6.5); Neutrophils % (auto) 60.9 %; Platelet Count 344 K/uL (130-400); RDW Coefficient of Variation 20.1 % (11.5-14.5); RDW Standard Deviation 55.4 fL (36.4-46.3); Red Blood Count 4.91 M/uL (4.2-5.4); White Blood Count 11.83 K/uL (4.8-10.8)
[2022-01-05 01:04] LABS: Troponin I High Sensitivity 9.9 pg/ml (0-14)
[2022-01-05 01:10] LABS: Alanine Aminotransferase 21 U/L (7-52); Albumin Globulin Ratio 1.6 (0.9-2); Albumin Level 3.7 gm/dl (3.4-5.0); Alkaline Phosphatase 88 U/L (34-104); Anion Gap 14 (3-11); Aspartate Aminotransferase 14 U/L (13-39); Bilirubin,Total 0.5 mg/dl (0.2-1.0); Blood Urea Nitrogen 11 mg/dl (6-23); Calcium 8.6 mg/dl (8.5-10.1); Carbon Dioxide 25 mmol/L (21-32); Chloride 104 mmol/L (98-107); Est GFR (African American) 76.8 ml/min; Est GFR (Non-African American) 66.3 ml/min; Globulin 2.3 gm/dl (2.5-4.0); Glucose 92 mg/dl (70-99(Fasting)); Lipase 18 U/L (11-82); Magnesium 1.7 mg/dl (1.7-2.4); Potassium 3.4 mmol/L (3.5-5.1); Sodium 143 mmol/L (136-145)
[2022-01-05] MEDS ORDERED: fentaNYL citrate 100 MCG/2 ML VIAL IV PRN (01:11)
[2022-01-05 01:42] LABS: Anisocytosis Present; Ovalocytes 1+; Polychromasia 1+
[2022-01-05] MEDS ORDERED: OPTIRAY 320 100ml IV ONE (01:46)
[2022-01-05] MEDS ORDERED: MoRPHine SULFATE 4 MG/ML 1 ML CARP\\VIAL IV STA (02:55)
[2022-01-05] MEDS ORDERED: POTASSIUM CHLORIDE / WTR 10 MEQ/100 ML PLCT IV STA (04:08)
--- NOTE | 2022-01-05 04:55 | Surgery Consultation ---
Date of Consultation January 05, 2022 Assessment & Plan (1) Small bowel obstruction: Is being admitted on the hospitalist service. We recommend proceeding as follows: Provide analgesics Provide antiemetics Implement n.p.o. status Provide hydration with IV fluids -Due to the patient's previous hiatal hernia surgery and the fact that her abdomen is nondistended I feel we can hold on placing an NG tube at this time. If she fails to improve clinically this modality may need to be reconsidered. To monitor the patient's progress with additional recommendations to follow based on her clinical course as it unfolds Supervising Physician Co-Signing Physician Notes Patient seen and examined, labs and image reviewed, agree with above. 61-year-old female with history of laparoscopic paraesophageal repair with Dennis is gastroplasty and Fan fundoplication, with known history of gastroparesis and recent admission with suspected ileus. She returned with epigastric discomfort and nausea and vomiting. This is similar to other episodes of gastroparesis. She is passing gas and had bowel movements. On exam she is afebrile, in moderate distress due to her nausea and discomfort. Abdomen soft, nontender, nondistended. I personally viewed the CT scan and there is no transition point but a gentle tapering of the bowel, I do not feel this is consistent with a small bowel obstruction. This appears more consistent with her normal gastroparesis and possibly a mild ileus. Would repeat KUB in the morning, no surgical intervention at this time. Recommend treatment for her gastroparesis. History of Present Illness Reason for Consultation: Small bowel obstruction History of Present Illness 61-year-old female who presents to [facility] emergency department secondary abdominal pain. Patient she was recently mated to [facility] from 12/29/2021 through 01/03/22. Her records were reviewed if you mention admission she was treated for a COPD exacerbation, CHF exacerbation and was also noted to have an ileus while in the hospital. Shortly after returning home she developed some generalized abdominal pain. She did not note any modifying factors to her abdominal pain but did report some nausea. She does report that she has had previous hiatal hernia surgery and since that time she has had issues with gastroparesis and she merely felt that her abdominal pain was related to this problem. Over the mention that the patient notes that since her hiatal hernia surgery even when she feels nauseous she does not produce any emesis. As the pain did not improve and what she felt was a reasonable amount of time she presented to the emergency department for further care. She denies any fevers, shakes, chills. She does note that she has had prior abdominal surgeries as she has had hiatal hernia surgery as well as a cholecystectomy. The emergency department today the patient had labs and imaging which I independently reviewed. She revealed white blood cell count was 11.8. Her hematocrit was noted to be normal. Platelet count was noted to be normal. Chemistry profile showed sodium was 143 with a potassium of 3.4. BUN and creatinine were both noted to be within normal range. Her lactic acid was nonelevated. There is no significant elevation of her LFTs or lipase. A Covid test was performed was noted be negative scan abdomen pelvis was performed multiple loops of small bowel which were distended to a maximum diameter of 4 cm which raises concern for a small bowel obstruction with an indeterminate transition area. At the time of my interview she was resting in bed she was in no distress Allergies Allergy/AdvReac Type Severity Reaction Status Date / Time adhesive Allergy Mild POWERS SKIN Verified 01/05/22 03:05 capsaicin Allergy Mild ITCHINESS Verified 01/05/22 03:05 amoxicillin AdvReac Intermediate yeast Verified 01/05/22 03:05 infection scopolamine AdvReac Intermediate rash from Verified 01/05/22 03:05 patch NSAIDS (Non-Steroidal AdvReac Mild indegestion Verified 01/05/22 03:05 Anti-Inflamma rofecoxib AdvReac Mild indigestion Verified 01/05/22 03:05 Home Medications Medication Instructions Recorded Confirmed Type levothyroxine 88 mcg tablet 88 mcg PO QAM #30 tab 12/16/19 01/05/22 Rx (Synthroid) dicyclomine 10 mg capsule 10 mg PO BID PRN 12/17/19 01/05/22 History apixaban 5 mg tablet (Eliquis) 5 mg PO BID 10/02/21 01/05/22 History cyanocobalamin (vitamin B-12) 1,000 mcg PO DAILY 10/02/21 01/05/22 History 1,000 mcg tablet (Vitamin B-12) vitamins-iron fumarate 65 1 tab PO HS 10/02/21 01/05/22 History mg iron-folic acid 1 mg tablet metoprolol succinate 100 mg 100 mg PO BID #60 tab 11/18/21 01/05/22 Rx tablet,extended release 24 hr (Toprol XL) promethazine 25 mg tablet 25 mg PO Q6H PRN 10 Days #30 tab 12/09/21 01/05/22 Rx aprepitant 80 mg capsule 80 mg PO WK PRN 12/29/21 01/05/22 History famotidine 20 mg tablet (Pepcid) 20 mg PO BID 12/29/21 01/05/22 History ferrous sulfate 325 mg (65 mg 325 mg PO DAILY 12/29/21 01/05/22 History iron) tablet omeprazole 20 mg capsule,delayed 20 mg PO AMHS 12/29/21 01/05/22 History release furosemide 20 mg tablet 20 mg PO QAM #30 tab 01/03/22 01/05/22 Rx potassium chloride 10 mEq 10 meq PO DAILY #30 tab 01/03/22 01/05/22 Rx tablet,extended release(part/cryst) Patient History Medical History Acidosis, lactic Anxiety Asthma COPD (chronic obstructive pulmonary disease) COVID-19 COVID-19 Depression Diverticulosis Frequent PVCs Gastroparesis GERD (gastroesophageal reflux disease) H/O irritable bowel syndrome HTN (hypertension) Hypokalemia Hypomagnesemia Hypomagnesemia Hypophosphatemia Hypothyroidism Intractable nausea and vomiting Intractable vomiting with nausea Mitral regurgitation "moderate per echo 09/21/15" Nausea & vomiting Neuropathy Pemphigus vulgaris Prolonged QT interval Tobacco abuse Surgical History H/O oophorectomy History of bladder surgery History of laparoscopic partial gastrectomy History of pyloroplasty History of total hysterectomy Hx of cholecystectomy Hx of tonsillectomy S/P hysterectomy S/P laparoscopic sleeve gastrectomy S/P partial gastrectomy S/P repair of paraesophageal hernia "resulted in volvulus, required abdominal exploration" S/P tonsillectomy and adenoidectomy Status post cardiac pacemaker procedure Family History Mother DM type 2 (diabetes mellitus, type 2) Coronary heart disease Social History Smoking Status: Current some day smoker Tobacco Type: Cigarettes Cigarettes Per Day: 20; Second Hand Exposure: No; Do You Dip or Chew Tobacco: No; Tobacco Cessation Education Requested by Patient: No Hx Alcohol Use: Yes Alcohol type: beer Alcohol Intake Frequency Comment: 3-4 beers/week Hx Substance Use: No Preferred Language: Nepali Communication Ability: Effective Inspector Publications Required: No Beliefs That Will Affect Care: None marital status: Single Current Living Situation: Family Current Living Situation Comment: Daughter How many Children do You have: 1 Other Information That Helps Us Care for You: No Feels Safe at Home: Yes Safety Concerns: Feels Safe At This Time Assistive Devices: Glasses Review of Systems Constitutional: no fever and no chills Eyes: no diplopia Ear, Nose, Mouth, Throat: no ear trauma Respiratory: no cough and no dyspnea Cardiovascular: no chest pain Gastrointestinal: + abdominal pain, + nausea and + vomiting Genitourinary: no dysuria Musculoskeletal: no back pain Integumentary: no rash Neurologic: no localized weakness Physical Exam Constitutional: WD/WN, vitals as above Eyes: no conjunctival abnormality ENMT: Ears: no hearing impairment Mouth: no oropharynx abnormality Neck: trachea midline A port was present in the right subclavian region Respiratory: normal respiratory effort; no respiratory distress and no labored breathing Cardiovascular: Rate/Rhythm: regular rate and regular rhythm Gastrointestinal (Abdomen): And is soft and nondistended. Patient did have some generalized pain with palpation but appeared to be greatest in the left upper quadrant. There is no rebound tenderness or guarding. Musculoskeletal: No calf tenderness Skin: no rashes Neurologic: moves all extremities Psychiatric: A+Ox3, euthymic affect Results & Data ([facility]) Vital Signs (Past 12 Hours) Vital Signs Temp Pulse Pulse Resp BP BP Pulse Ox 01/05/22 03:00 116 H 24 133/101 H 96 01/05/22 01:01 128 H 24 132/96 91 01/04/22 23:29 36.9 C 124 H 26 H 116/84 96 PG Care Time/CCT Total # of Minutes Spent Total Time Spent with Patient: Total time spent is greater than 50% in coordination of care (as documented) at patient's floor/unit and/or counseling patient: Coding Level of Care Code 93769 Inpt Consult Level 5 Diagnoses Small bowel obstruction K56.266
[2022-01-05] MEDS ORDERED: ACETAMINOPHEN 325 MG TAB PO PRN (05:26)
[2022-01-05] MEDS ORDERED: DICYCLOMINE HCL 10 MG CAP PO PRN (05:26)
[2022-01-05] MEDS ORDERED: HYDROmorphone INJ 0.5 MG/0.5 ML SYR IV PRN (05:26)
[2022-01-05] MEDS ORDERED: METOPROLOL TARTRATE 1 MG/ML VIAL IV PRN (05:26)
[2022-01-05] MEDS ORDERED: NITROGLYCERIN SL 0.4 MG/TAB TAB SL PRN (05:26)
[2022-01-05] MEDS ORDERED: PROMETHAZINE 12.5 MG/50.5 ML NSS IV ONE (06:05)
[2022-01-05] MEDS: D5W AND NSS 1,000 ML IV SCH ×2 (06:12→14:23)
[2022-01-05] MEDS: PROMETHAZINE HCL 12.5 MG in SODIUM CHLORIDE 0.9% 50 ML IV PRN ×2 (06:13→15:01)
--- NOTE | 2022-01-05 07:25 | History and Physical Report ---
DATE OF ADMISSION: 01/05/2022. CHIEF COMPLAINT: Abdominal pain, nausea, vomiting. HISTORY OF PRESENT ILLNESS: A 61-year-old female with past medical history significant for atrial fibrillation, tachybrady syndrome, status post pacemaker, history of hiatal hernia, status post gastric sleeve with subsequent development of gastroparesis, history of prolonged QT, COPD, chronic kidney disease stage III, history of anemia, hypothyroidism, generalized anxiety, history of chronic systolic CHF, history of COVID in August 2021, comes with nausea, vomiting. The patient had multiple admissions for gastroparesis flare, was recently in the hospital. Was discharged a couple of days ago, comes back in with nausea and vomiting. She has a lot of dry heaves, could not vomit, but a lot of abdominal pain. She says she had normal bowel movement yesterday. Denies any fever or chills. No chest pain, no headache. She complains of blurred vision in the left eye going on since 1 day and also left-sided numbness of the face and tingling and numbness in the extremities. It is going on since afternoon yesterday. She lives alone, ambulates okay. Family checks on her. No fevers, no cough, no runny nose, no sore throat. Normal bladder movements. No swelling in the legs. ALLERGIES: ADHESIVES, CAPSAICIN, AMOXICILLIN, SCOPOLAMINE, NSAIDS, ROFECOXIB. PAST MEDICAL HISTORY: As mentioned above. PAST SURGICAL HISTORY: Attach bladder/urethra , biopsy of the left breast, colonoscopy, EGDs, EGD with removal of foreign body, EGD with transendoscopic dilatation exploratory laparotomy, insertion of A-port, diagnostic laparoscopy, laparoscopic cholecystectomy, right carpal tunnel surgery, paraesophageal hernia repair, reconstruction of the pylorus, removal of tunneled central venous catheter, removal of left ovary, laparoscopic partial gastrectomy, tonsillectomy and adenoidectomy, sigmoidoscopy, total abdominal hysterectomy with removal of tubes, upper GI endoscopy with stent placement. MEDICATIONS: The patient is on vitamin B12 1000 mcg p.o. daily, dicyclomine 10 mg p.o. b.i.d. p.r.n., Eliquis 5 mg p.o. b.i.d., Pepcid 20 mg p.o. b.i.d., ferrous sulfate 325 mg p.o. daily, Lasix 20 mg p.o. a.m., Synthroid 88 mcg p.o. daily, metoprolol succinate 100 mg p.o. b.i.d., omeprazole 20 mg p.o. b.i.d., potassium chloride 10 mEq p.o. daily, ____ vitamin 1 tablet p.o. daily, promethazine 25 mg p.o. at bedtime p.r.n. FAMILY HISTORY: Significant for brother has seasonal allergies, GERD, hypertension; father has aneurysm, thyroid cancer; mother has arthritis, diabetes, heart disorder. SOCIAL HISTORY: . Smokes 1 pack a day for 20 years. Alcohol socially as per Epic. No drug use. REVIEW OF SYSTEMS: As per HPI. Rest of review of systems is negative. PHYSICAL EXAMINATION: GENERAL: The patient is of moderate build, not in acute distress. VITAL SIGNS: Temperature 36.9, pulse 116, respiratory rate 24, blood pressure 133/101, oxygen 96% on room air. HEENT: Pupils equal, round and reactive to light. Oral mucosa dry. NECK: No JVD, no neck masses. CARDIOVASCULAR: S1 and S2 heard. Tachycardia. No murmurs. RESPIRATORY SYSTEM: Normal AP diameter. No accessory muscle use. No wheezing, no crackles. ABDOMEN: Soft, bowel sounds sluggish. Diffuse abdominal discomfort present. No guarding, no rigidity. CENTRAL NERVOUS SYSTEM: Cranial nerves II-XII grossly intact, nonfocal. EXTREMITIES: No edema, no erythema. LABORATORY DATA: WBC 11.8, hemoglobin 11.8, hematocrit 38.4, platelets 344. Sodium 146, potassium 3.4, chloride 104, bicarbonate 25, BUN 11, creatinine 0.9, serum glucose 92. Lactate 2, calcium 8.6, magnesium 1.7, total bilirubin 0.5, AST 14, ALT 21, alkaline phosphatase 88. Troponin I high sensitivity 9.9. Lipase 18. SARS-CoV-2 rapid test negative. IMAGING DATA: CT of abdomen and pelvis, possible small bowel obstruction. EKG: Atrial fibrillation with rapid ventricular response with PVCs at a rate of 109, nonspecific ST abnormalities. ASSESSMENT AND PLAN: This is a 61-year-old female who presents with nausea, abdominal pain. 1. Nausea and abdominal pain: History of gastroparesis. The patient had multiple admissions for similar problem. She was discharged a couple of days ago. Will place her on n.p.o., IV fluids, IV antiemetics and pain meds p.r.n. Monitor in the hospital. 2. Possible small bowel obstruction: Will follow the final report of the CAT scan. N.p.o., IV fluids, IV pain medicines p.r.n. Consulted surgery. 3. Facial numbness on the left side and also some numbness and tingling in the extremities. Will get a CT of the head. The patient has history of similar episodes in the past. Consult neurology in the a.m. 4. History of atrial fibrillation, rate controlled: Will continue the home p.o. metoprolol and p.o. Eliquis. Placed on IV Lopressor p.r.n., Closely monitor. 5. Hypothyroidism: P.o. Synthroid when able to take p.o. 6. Gastroesophageal reflux disease: Continue IV Pepcid. 7. Hypertension: Will monitor, IV Lopressor. 8. Anemia: Hemoglobin 11.8. 9. Deep venous thrombosis prophylaxis: On Eliquis and sequential compression devices. DISPOSITION: Closely monitor in the med tele. PT/OT prior to discharge. Social service to help with discharge planning. Job ID: [id number] [facility]
[2022-01-05] MEDS: LEVOTHYROXINE SODIUM 88 MCG TABLET PO SCH (07:45)
[2022-01-05 08:02] LABS: Basophils # (auto) 0.01 K/uL (0-0.2); Basophils % (auto) 0.1 %; Eosinophils # (auto) 0.14 K/uL (0-0.5); Eosinophils % (auto) 1.6 %; Hematocrit (blood only) 35.8 % (37-47); Hemoglobin 11.1 g/dL (12.0-16.0); Immature Granulocytes # (auto) 0.03 K/uL (0.00-0.02); Immature Granulocytes % (auto) 0.4 %; Lymphocytes # (auto) 3.24 K/uL (1.2-3.4); Lymphocytes % (auto) 38.1 %; Mean Corpuscular Hemoglobin 24.7 pg (25-34); Mean Corpuscular Volume 79.6 fL (80-100); Mean Platelet Volume 9.6 fL (7.4-10.4); Monocytes # (auto) 0.69 K/uL (0.11-0.59); Monocytes % (auto) 8.1 %; Neutrophils # (auto) 4.39 K/uL (1.4-6.5); Neutrophils % (auto) 51.7 %; Platelet Count 304 K/uL (130-400); RDW Coefficient of Variation 20.4 % (11.5-14.5); RDW Standard Deviation 57.4 fL (36.4-46.3)
[2022-01-05 08:22] LABS: Anion Gap 6 (3-11); BUN Creatinine Ratio 11.2 (10-20); Blood Urea Nitrogen 10 mg/dl (6-23); Carbon Dioxide 29 mmol/L (21-32); Chloride 106 mmol/L (98-107); Est GFR (African American) 79.9 ml/min; Glucose 108 mg/dl (70-99(Fasting)); Magnesium 1.8 mg/dl (1.7-2.4); Potassium 3.7 mmol/L (3.5-5.1); Sodium 141 mmol/L (136-145)
[2022-01-05 08:31] LABS: Anisocytosis Present
--- NOTE | 2022-01-05 09:03 | CT Scan Report ---
CT head/brain wo con CLINICAL HISTORY: 61 years-old Female with left face numbness. Acute strokelike symptoms with weakne ss TECHNIQUE: Multiple axial CT images of the head were obtained without contrast. A dose lowering tech nique was utilized adhering to the principles of ALARA. CT DOSE: 638.56 mGycm COMPARISON: Head CT 12/31/2021, 10/10/2020. FINDINGS: No acute intracranial hemorrhage, midline shift, intracranial mass, hydrocephalus, territorial ischem ia or abnormal extra-axial collection. Mild white matter hypodensities suggest chronic microvascular ischemic disease. There is an ill-defined 7 mm hypodense focus of the right thalamus on image 14 seri es 2. The calvarium is intact. The paranasal sinuses, mastoid air cells, and middle ear cavities are clear . IMPRESSION: 1. No acute intracranial hemorrhage, midline shift or acute territorial infarct. 2. Acute versus subacute subcentimeter right thalamic lacunar infarct. ACT 112: Negative or not required by law. The above report was generated using voice recognition software. It may contain grammatical, syntax o r spelling errors. Electronically signed by: Daniele Reis M.D. 01/05/2022 9:01 AM
[2022-01-05] MEDS: APIXABAN 5 MG TABLET PO SCH ×2 (09:11→21:23)
[2022-01-05] MEDS: FAMOTIDINE 20 MG in SYRINGE 3 ML IV SCH ×2 (09:11→21:49)
[2022-01-05] MEDS: FERROUS SULFATE 325 MG TAB PO SCH (09:12)
[2022-01-05] MEDS: POTASSIUM CHLORIDE 10 MEQ TABCR PO SCH (09:12)
[2022-01-05] MEDS: FUROSEMIDE 20 MG TAB PO SCH (09:12)
[2022-01-05] MEDS: METOPROLOL SUCC 50MG EXT REL TAB PO SCH ×2 (09:13→21:23)
--- NOTE | 2022-01-05 10:01 | CT Scan Report ---
CT SCAN OF THE ABDOMEN AND PELVIS WITH IV CONTRAST CLINICAL HISTORY: Left upper quadrant abdominal pain. COMPARISON STUDY: Abdominal CT dated 11/26/2021. TECHNIQUE: Following the IV administration of 93 cc of Optiray 320, CT scan of the abdomen and pelvi s is performed from the lung bases to the proximal femora. Images are reviewed in the axial, sagittal , and coronal planes. IV contrast was administered without complication. A dose lowering technique wa s utilized adhering to the principles of ALARA. CT DOSE: 586.60 mGy.cm FINDINGS: Lung bases: The heart is enlarged and without pericardial effusion. Pacemaker leads are noted. The giselle ng bases are clear noting bibasilar scarring/atelectasis. Liver: The contrast-enhanced liver is normal in size, contour, and attenuation. There is mild central intrahepatic biliary ductal dilatation. The hepatic veins and portal veins are patent. Gallbladder: Surgically absent noting clips in the gallbladder fossa. Spleen: Normal in size and attenuation. Pancreas: Moderately atrophic and grossly unremarkable. Adrenal glands: A 2.3 cm adenoma of the right adrenal gland is unchanged. The left adrenal gland is n ormal in appearance. Kidneys: The contrast enhanced kidneys demonstrate cortical atrophy and are without hydronephrosis. T he kidneys enhance symmetrically. A 3 mm nonobstructing calculus is noted in the right kidney. Scatte red subcentimeter cortical hypodensities likely represent cysts but are too small for definitive lexie acterization. Abdominal vasculature: The abdominal aorta is normal in course and caliber. Stomach and bowel: There is a small hiatal hernia. Postoperative change is noted in the stomach with a gastric band in place. There are scattered colonic diverticula without CT evidence of acute diverti culitis. There is mild gaseous distention of the small bowel loops which measure up to 4.3 cm in diam eter. No transition was identified and there is no evidence of high-grade obstruction. No thick wilfredo d bowel loops are identified. The appendix is well-visualized and normal. Peritoneum: There is no intraperitoneal free air or abdominal ascites. Lymphadenopathy: None. Pelvic viscera: The bladder is normal as visualized. The uterus is surgically absent. No adnexal lesi on is seen. Skeletal structures: The skeletal structures are osteopenic. There is mild lumbosacral spondylosis. N o lytic or blastic lesions are seen. IMPRESSION: 1. There is mild diffuse gaseous distention of the small bowel loops with no transition point identif ied and no clear CT evidence of high-grade obstruction. A partial/developing small bowel obstruction is favored and clinical correlation will be required. 2. No thick walled bowel loops are identified. There is no intraperitoneal free air, abdominal ascite s, or pneumatosis intestinalis. 3. Postoperative change involving the stomach is above. 4. Cardiomegaly. 5. Right-sided nephrolithiasis. 6. Additional findings as above. ACT 112: Negative or not required by law. Electronically signed by: Bayron Tillman M.D. 01/05/2022 9:58 AM
--- NOTE | 2022-01-05 10:02 | Neurology Consultation ---
Date of Consultation January 05, 2022 Assessment & Plan (1) Numbness and tinglin. MRI brain- with and without contrast- no new stroke 2. continue Eliquis 5 mg BID 3. CTA head and neck- results not available 4. optmize HTN, HLD, DM LDL <70 5. TTE- r/o cardiac source 6. would check -B12, methylmalonic acid, thiamine, copper, vit E, zinc, selenium- for causes of symptoms 7. will defer aspirin 81 mg to primary team or PCP 8. smoking cessation 9. small vessel stroke is still a possibility, + for vascular risk factors, no acute neuropathy such as GBS 10. no ZIO as outpatient follow up with cardiology and PCP if neuropathy needs further work up can arrange EMG as outpatient will sign off for now will be available for further questions concerns. Supervising Physician Co-Signing Physician Notes I have seen and discussed above patient with Dr Tiesha Palmer, neurology. Patient seen and examined history reviewed. Numbness in left face came on in the setting of a throbbing frontal headache although patient has no prior history of migrainous headache. There were no scintillating visual phenomenon. Unclear how long the numbness in the left face lasted. Patient also noted some tingling in and numbness in the tips of her toes and her feet of interest neuropathy is listed on her past medical history but she denies a prior history other than having difficulty driving causing numbness and tingling in the hands which responds to changing her position on the steering wheel. No prior history of stroke or transient ischemic attack. She has hypertension and smokes. MRI of the brain shows small vessel cerebrovascular disease but no acute infarction or large vessel infarction. CTA of the head and neck have not yet been read and the images are not available for my review. Exam notable for normal extraocular motility visual queen and facial symmetry. There is no facial anesthesia. Tinel's and Phalen's are negative at the wrists. Strength is full in the upper and lowers ankle jerks are present toes are downgoing. I did not detect any sensory abnormality but Tiesha De Jesus detected some decrease in vibration sense in the toes and a distal sensory loss. No sensory loss is noted in the upper Impression numbness in the left face which lasted hours negative imaging query migrainous phenomenon although would be atypical at her age to begin having that. Other alternative is that she had a small vessel stroke which is not observable on MRI. Recommend neck regard and because the patient has some evidence of small vessel cerebrovascular disease that consideration be made to the addition of antiplatelet therapy with aspirin. Patient was told not to take aspirin in the past so defer to primary care. I doubt Plavix would be a better option and would likely be more likely to cause bleeding complications. Recommend goal LDL of 70 or less good treatment of hypertension and smoking cessation. Regarding her sensory symptoms. Upper extremity symptoms at least in the recent past suggest carpal tunnel. No findings suspicious of the same. Lower extremity symptoms could suggest neuropathy although would not expect to come on acutely. Is of interest that she was previously diagnosed with a neuropathy although she denies any prior numbness and tingling. She is certainly at risk for nutritional deficiencies and Tiesha has recommended some labs for evaluating nutritional deficiency and those with gastric bypass. I am not suspicious of an acute neuropathic process. Will sign off please recontact if questions or CTA shows high-grade stenosis or other abnormality Tiesha Palmer MD If symptoms persist recommend nerve conduction EMG as an outpatient History of Present Illness Reason for Consultation: numbness of left side face and extremities Requesting Physician: Keisha Beaver MD Attending Physician: Keisha Beaver MD History of Present Illness Anne is a 61 year old female with PMH - Afib, , tachybrady syndrome, status post pacemaker, hiatal hernia, gastric sleeve with subsequent development of gastroparesis, prolonged QT, COPD, CKD III, anemia, hypothyroidism, JUHI, history of chronic systolic CHF, COVID in August 2021, presents to [facility] ED 01/05/22 with nausea, vomiting.She had multiple admissions for gastroparesis flare last admission was 12/29/21 and was discharged a couple of days ago, comes back in with nausea and vomiting. She has a lot of dry heaves, could not vomit, but a lot of abdominal pain. She says she had normal bowel movement yesterday. She had blurred vision in the left eye going on x 1 day and also left-sided numbness of the face and tingling and numbness in the extremities x 1 day. She lives alone. The numbness in her hands is bilateral and only in the tips. The numbness in the feet are just the toes bilaterally. The face numbness is left sided and mostly resolved. She had a severe headache when the numbness started which she rarely gets. denies CP, SOB, abdominal pain, one sided weakness, numbness tingling, N, V. vision changes. . Allergies Allergy/AdvReac Type Severity Reaction Status Date / Time adhesive Allergy Mild POWERS SKIN Verified 01/05/22 03:05 capsaicin Allergy Mild ITCHINESS Verified 01/05/22 03:05 amoxicillin AdvReac Intermediate yeast Verified 01/05/22 03:05 infection scopolamine AdvReac Intermediate rash from Verified 01/05/22 03:05 patch NSAIDS (Non-Steroidal AdvReac Mild indegestion Verified 01/05/22 03:05 Anti-Inflamma rofecoxib AdvReac Mild indigestion Verified 01/05/22 03:05 Home Medications Medication Instructions Recorded Confirmed Type levothyroxine 88 mcg tablet 88 mcg PO QAM #30 tab 12/16/19 01/05/22 Rx (Synthroid) dicyclomine 10 mg capsule 10 mg PO BID PRN 12/17/19 01/05/22 History apixaban 5 mg tablet (Eliquis) 5 mg PO BID 10/02/21 01/05/22 History cyanocobalamin (vitamin B-12) 1,000 mcg PO DAILY 10/02/21 01/05/22 History 1,000 mcg tablet (Vitamin B-12) vitamins-iron fumarate 65 1 tab PO HS 10/02/21 01/05/22 History mg iron-folic acid 1 mg tablet metoprolol succinate 100 mg 100 mg PO BID #60 tab 11/18/21 01/05/22 Rx tablet,extended release 24 hr (Toprol XL) promethazine 25 mg tablet 25 mg PO Q6H PRN 10 Days #30 tab 12/09/21 01/05/22 Rx aprepitant 80 mg capsule 80 mg PO WK PRN 12/29/21 01/05/22 History famotidine 20 mg tablet (Pepcid) 20 mg PO BID 12/29/21 01/05/22 History ferrous sulfate 325 mg (65 mg 325 mg PO DAILY 12/29/21 01/05/22 History iron) tablet omeprazole 20 mg capsule,delayed 20 mg PO AMHS 12/29/21 01/05/22 History release furosemide 20 mg tablet 20 mg PO QAM #30 tab 01/03/22 01/05/22 Rx potassium chloride 10 mEq 10 meq PO DAILY #30 tab 01/03/22 01/05/22 Rx tablet,extended release(part/cryst) Patient History Medical History Acidosis, lactic Anxiety Asthma COPD (chronic obstructive pulmonary disease) COVID-19 COVID-19 Depression Diverticulosis Frequent PVCs Gastroparesis GERD (gastroesophageal reflux disease) H/O irritable bowel syndrome HTN (hypertension) Hypokalemia Hypomagnesemia Hypomagnesemia Hypophosphatemia Hypothyroidism Intractable nausea and vomiting Intractable vomiting with nausea Mitral regurgitation "moderate per echo 09/21/15" Nausea & vomiting Neuropathy Pemphigus vulgaris Prolonged QT interval Tobacco abuse Surgical History H/O oophorectomy History of bladder surgery History of laparoscopic partial gastrectomy History of pyloroplasty History of total hysterectomy Hx of cholecystectomy Hx of tonsillectomy S/P hysterectomy S/P laparoscopic sleeve gastrectomy S/P partial gastrectomy S/P repair of paraesophageal hernia "resulted in volvulus, required abdominal exploration" S/P tonsillectomy and adenoidectomy Status post cardiac pacemaker procedure Family History Mother DM type 2 (diabetes mellitus, type 2) Coronary heart disease Social History Smoking Status: Current some day smoker Tobacco Type: Cigarettes Cigarettes Per Day: 20; Second Hand Exposure: No; Hx Alcohol Use: Yes Alcohol type: beer Alcohol Intake Frequency Comment: 3-4 beers/week Hx Substance Use: No Preferred Language: Czech Communication Ability: Effective Purchasing Manager Required: No Beliefs That Will Affect Care: None marital status: Single Current Living Situation: Family Current Living Situation Comment: Daughter How many Children do You have: 1 Feels Safe at Home: Yes Assistive Devices: Glasses Review of Systems Review of Systems: All systems reviewed & are unremarkable except as noted in HPI & below Physical Exam Physical Exam: Physical Exam: Constitutional: appearance over nourished, healthy Ears, Nose, Mouth and Throat: mucous membranes moist, no injection and skin normal, eyes normal Cardiovascular: irregular Respiratory: course breath sounds Musculoskeletal: no peripheral edema and + distal pulses Skin: no stigmata of neurocutaneous disease noted and normal and intact Eyes: extraocular muscles intact (EOMI) and pupils equal, round and reactive to light (PERRL), no nystagmus NEUROLOGIC EXAMINATION: Mental status: Alert and interactive Oriented to full date and location, 2021, Biden president, [facility] Oriented to person Speech fluent with no evidence of aphasia Cranial Nerves smile eye brow raise symmetric Reflexes: Deep tendon reflexes were symmetrical and graded 2/5. Sensory: decreased sensation to vibration of toes bilaterally intact at ankle Coordination: finger to nose, heel to hunter intact Gait/Stance: Posture lying in bed Motor: Negative for pronator drift of out stretched arms with eyes closed. Strength: biceps triceps hand wall taper 5/5, hip flex 5/5 plantar flex ext 5/5 Results & Data ([facility]) Vital Signs (Past 12 Hours) Vital Signs Temp Pulse Pulse Resp BP BP Pulse Ox 01/05/22 08:55 115 H 26 H 129/96 96 01/05/22 06:30 101 H 24 142/108 H 93 01/05/22 05:00 112 H 22 126/108 H 95 01/05/22 03:00 116 H 24 133/101 H 96 01/05/22 01:01 128 H 24 132/96 91 01/04/22 23:29 36.9 C 124 H 26 H 116/84 96 Laboratory Results Abnormal lab results 01/05/22 01/05/22 01/05/22 Range/Units 00:28 00:28 07:47 WBC 11.83 H (4.8-10.8) K/uL Hgb 11.8 L 11.1 L (12.0-16.0) g/dL Hct 35.8 L (37-47) % MCV 78.2 L 79.6 L (80-100) fL MCH 24.0 L 24.7 L (25-34) pg MCHC 30.7 L 31.0 L (32-36) g/dL RDW Std Deviation 55.4 H 57.4 H (36.4-46.3) fL RDW Coeff of Ana M 20.1 H 20.4 H (11.5-14.5) % Neut # (Auto) 7.21 H (1.4-6.5) K/uL Cass # (Auto) 1.05 H 0.69 H (0.11-0.59) K/uL Immature Gran # (Auto) 0.05 H 0.03 H (0.00-0.02) K/uL Potassium 3.4 L (3.5-5.1) mmol/L Anion Gap 14 H (3-11) Glucose (70-99(Fasting)) mg/dl Calcium (8.5-10.1) mg/dl Globulin 2.3 L (2.5-4.0) gm/dl 01/05/22 Range/Units 07:47 WBC (4.8-10.8) K/uL Hgb (12.0-16.0) g/dL Hct (37-47) % MCV (80-100) fL MCH (25-34) pg MCHC (32-36) g/dL RDW Std Deviation (36.4-46.3) fL RDW Coeff of Ana M (11.5-14.5) % Neut # (Auto) (1.4-6.5) K/uL Cass # (Auto) (0.11-0.59) K/uL Immature Gran # (Auto) (0.00-0.02) K/uL Potassium (3.5-5.1) mmol/L Anion Gap (3-11) Glucose 108 H (70-99(Fasting)) mg/dl Calcium 8.0 L (8.5-10.1) mg/dl Globulin (2.5-4.0) gm/dl Diagnostic Findings CT head-No acute intracranial hemorrhage, midline shift or acute territorial infarct. Acute versus subacute subcentimeter right thalamic lacunar infarct. MRI brain-No acute intracranial abnormalities. The lacunar infarct seen on the right is old by MRI. There is evidence for mild small vessel disease.
--- NOTE | 2022-01-05 10:05 | Communication Note ---
Date of Service: January 05, 2022 61-year-old female with past medical history significant for atrial fibrillation, tachybrady syndrome, status post pacemaker, history of hiatal hernia, status post gastric sleeve with subsequent development of gastroparesis, history of prolonged QT, COPD, chronic kidney disease stage III, history of anemia, hypothyroidism, generalized anxiety, history of chronic systolic CHF, history of COVID in August 2021, comes with nausea and abd discomfort. Also reported 1 day of left sided numbness on face and tingling/numbness on extremities Patient seen and examined Reports nausea and abd pain. Still has numbness CT head reported acute to subacute subcentimeter right thalamic lacunar infarct. Gastroparesis Discussed with Neuro. MRI brain reported lacunar infarct was not acute but chronic Start atorvastatin. Continue eliquis Continue to provide counselling regarding lifestyle modification Will await all workup and final eval by Neuro Continue antiemetics. Give emend Agree with other plans as detailed in H&P by Dr Gusman this morning
[2022-01-05] MEDS ORDERED: FOSAPREPITANT DIMEGLUMINE 150 MG in SODIUM CHLORIDE 0.9% 145 ML IV ONE (10:30)
[2022-01-05] MEDS: ATORVASTATIN 40 MG TAB PO SCH (12:30)
[2022-01-05] MEDS: ASPIRIN 81 MG ECTAB PO SCH (12:30)
[2022-01-05] MEDS ORDERED: GADOBUTROL 65ML VIAL IV ONE (13:10)
--- NOTE | 2022-01-05 14:22 | Magnetic Resonance Report ---
MR brain wo/w con CLINICAL HISTORY: Numbness in the left side of the face and headaches.. Evaluate right thalamic lac unar infarct. COMPARISON STUDY: CT brain from 01/05/2022 TECHNIQUE: Multiplanar multisequence images of the brain were performed before and after Gadavist, 8 mL of IV contrast. Diffusion weighted imaging and ADC mapping was also performed. FINDINGS: Extra-axial space: There is no evidence for a subdural hematoma, There are no extra-axial fluid karen ections. Ventricles and cisterns: The ventricles are normal in size and configuration. There is no evidence f or midline shift or mass effect. Parenchyma: On noncontrast images, there is no evidence for an acute hemorrhage or infarct. No acute diffusion abnormalities are noted on diffusion weighted imaging or ADC mapping. There is normal hedrick -white differentiation. The lacunar infarct seen on the right is old in nature. There is mild bright signal seen on FLAIR weighted sequences within the centrum semiovale and periven tricular white matter characteristic of mild remote small vessel disease. The sulci and gyri appear n ormal without effacement. The midline structures are unremarkable. The posterior fossa structures jose de jesus ear normal. On postcontrast images, there is no evidence for enhancing mass lesion. Osseous structures: The paranasal sinuses are well aerated. The mastoid air cells are well aerated. Soft tissues: No focal soft tissue abnormalities are identified. IMPRESSION: 1. No acute intracranial abnormalities. 2. The lacunar infarct seen on the right is old by MRI. 3. There is evidence for mild small vessel disease. ACT 112: Negative or not required by law. Electronically signed by: Gordon Amador M.D. 01/05/2022 2:21 PM
[2022-01-05] MEDS ORDERED: OPTIRAY 320 125ml IV ONE (17:35)
--- NOTE | 2022-01-05 18:11 | CT Scan Report ---
CT angio head w con CLINICAL HISTORY: CVA workup . History of numbness in left side of the face and headaches COMPARISON STUDY: CT brain without contrast and MRI from 01/05/2022 CT DOSE: 520.87 mGy.cm TECHNIQUE: CT Angio of the brain was performed.followed by image post processing with coronal, and s agittal MIP reformats. Contrast Volume: Optiray 320, 120 ml FINDINGS: Vascular findings: There is normal enhancement within the internal carotid arteries bilaterally. The re is normal enhancement noted within the anterior, middle and posterior cerebral arteries. However, there is mild atherosclerotic narrowing of the A1 segment of the right anterior cerebral artery. Nonvascular findings: There is homogeneous attenuation of the brain parenchyma bilaterally. There is no evidence for an acute infarct or cerebral edema. IMPRESSION: 1. Mild atherosclerotic narrowing of the A1 segment of the right anterior cerebral artery. 2. No evidence for focal stenosis or thrombosis. ACT 112: Negative or not required by law. Electronically signed by: Gordon Amador M.D. 01/05/2022 6:09 PM
--- NOTE | 2022-01-05 19:13 | CT Scan Report ---
CT angio neck with con CLINICAL HISTORY: CVA workup . History of numbness in the left side of the face and headaches COMPARISON STUDY: CT brain and MR brain from 01/05/2022 CT DOSE: TECHNIQUE: CT Angio of the neck was performed.followed by image post processing with coronal, and sa gittal MIP reformats.. Stenosis assessment by NASCET criteria. Contrast Volume: Optiray 320, 120 ml FINDINGS: Vascular findings: Right common carotid artery: Patent without significant stenosis. Right internal carotid artery: Patent without significant stenosis. Right vertebral artery: Patent without significant stenosis. The right vertebral artery is mildly dom inant when compared to the left. Left common carotid artery: Patent without significant stenosis. Left internal carotid artery: Patent without significant stenosis. Left vertebral artery: Patent without significant stenosis. Nonvascular findings: The parotid and submandibular salivary glands appear normal. There is no enlarged cervical adenopathy noted. The airway appears patent. The thyroid gland appears within normal limits. The lung apices ap pear within normal limits. Impression: Essentially negative CT angiogram of the neck with contrast. ACT 112: Negative or not required by law. Electronically signed by: Gordon Amador M.D. 01/05/2022 7:11 PM
[2022-01-05] MEDS: PRENATAL VITAMIN 1 TAB PO SCH (21:23)
[2022-01-06] MEDS: D5W AND NSS 1,000 ML IV SCH ×2 (01:08→12:12)
[2022-01-06] MEDS: LEVOTHYROXINE SODIUM 88 MCG TABLET PO SCH (06:05)
--- NOTE | 2022-01-06 06:19 | Electrocardiogram Report ---
Test Reason : Blood Pressure : / mmHG Vent. Rate : 109 BPM Atrial Rate : 182 BPM P-R Int : 000 ms QRS Dur : 108 ms QT Int : 364 ms P-R-T Axes : 000 -20 -23 degrees QTc Int : 491 ms Poor data quality, interpretation may be adversely affected Atrial fibrillation with rapid ventricular response with premature ventricular or aberrantly conducte d complexes Minimal voltage criteria for LVH, may be normal variant Incomplete right bundle branch block Abnormal ECG When compared with ECG of 29-DEC-2021 11:46, T wave inversion more evident in Anterior leads QT has shortened Confirmed by Chinmay Russo ([id number]) on 01/06/2022 6:19:44 AM Referred By: REFERRED SELF Confirmed By:Chinmay Russo
[2022-01-06] MEDS: ASPIRIN 81 MG ECTAB PO SCH (07:44)
[2022-01-06] MEDS: METOPROLOL SUCC 50MG EXT REL TAB PO SCH ×2 (07:44→21:11)
[2022-01-06] MEDS: FERROUS SULFATE 325 MG TAB PO SCH (07:45)
[2022-01-06] MEDS: ATORVASTATIN 40 MG TAB PO SCH (07:45)
[2022-01-06] MEDS: FUROSEMIDE 20 MG TAB PO SCH (07:45)
[2022-01-06] MEDS: APIXABAN 5 MG TABLET PO SCH ×2 (07:46→21:11)
[2022-01-06] MEDS: FAMOTIDINE 20 MG in SYRINGE 3 ML IV SCH ×2 (07:48→21:22)
[2022-01-06] MEDS: POTASSIUM CHLORIDE 10 MEQ TABCR PO SCH (07:48)
[2022-01-06 09:00] LABS: Hematocrit (blood only) 41.9 % (37-47); Hemoglobin 12.7 g/dL (12.0-16.0); Mean Corpuscular Hemoglobin 24.6 pg (25-34); Mean Platelet Volume 9.8 fL (7.4-10.4); Platelet Count 336 K/uL (130-400); RDW Coefficient of Variation 20.6 % (11.5-14.5); Red Blood Count 5.17 M/uL (4.2-5.4); White Blood Count 7.09 K/uL (4.8-10.8)
[2022-01-06 09:05] LABS: Mean Corpuscular Hgb Conc 30.3 g/dL (32-36)
[2022-01-06 09:31] LABS: BUN Creatinine Ratio 6.7 (10-20); Calcium 8.5 mg/dl (8.5-10.1); Chol HDL Ratio 2.9 (0-5); Creatinine Clr Calc Pharmacy 69.5 ml/min; Est GFR (African American) 78.9 ml/min; Potassium 3.8 mmol/L (3.5-5.1)
--- NOTE | 2022-01-06 09:50 | XRay Report ---
KUB HISTORY: eval bowel gas pattern COMPARISON: KUB 01/01/2022. Abdomen and pelvis CT 01/05/2022. FINDINGS: There are few borderline dilated gas-filled loops of small bowel within the upper abdomen m easuring up to 3 cm in diameter. This has improved in the interval. Small amount of gas within the co milton. Postoperative changes again noted within the upper abdomen. No renal calculi. No ureteral calcu li. Calcifications in the deep pelvis likely represent phleboliths. No pneumoperitoneum or pneumatosi s. IMPRESSION: A few borderline dilated gas-filled loops of small bowel within the upper abdomen which have improved in the interval. This favors a resolving partial small bowel obstruction/ileus. ACT 112: Negative or not required by law. Electronically signed by: Radhames Jackson M.D. 01/06/2022 9:49 AM
--- NOTE | 2022-01-06 10:54 | Surgery Progress Note ---
Date of Service January 06, 2022 Assessment & Plan (1) Small bowel obstruction: Plan: Patient here with c/f SBO vs. ileus, but symptoms more likely related to her h/o gastroparesis KUB obtained revealed improving picture She is clinically feeling well, no n/v/pain. Passing flatus and BM's May advance to clear liquids and pending symptoms continue to adv diet as tolerates Ongoing management of gastroparesis (2) Gastroparesis: Admission and Anticipated Discharge Date Admission Date: January 05, 2022 Supervising Physician Co-Signing Physician Notes Patient seen and examined, labs and imaging reviewed, agree with above. Patient feeling better continues to pass gas and have bowel movements. No more nausea. She is hungry. On exam afebrile stable vitals, abdomen soft, nontender, nondistended. KUB with improved small bowel dilation. This does not appear to represent an obstruction at all. This is likely either an ileus related to her gastroparesis or just her symptoms from gastroparesis. Advance diet as tolerated, surgery will sign off. Subjective Patient is feeling well this AM. Denies nausea/vomiting/abdominal pain. Says she is passing flatus and had multiple BMs yesterday. She is hungry. Physical Exam Physical Exam: awake/alert Gastrointestinal (Abdomen): Inspection/Auscultation: abdomen not distended Percussion/Palpation: abdomen soft; abdomen nontender Results & Data ([facility]) Vital Signs (Past 12 Hours) Vital Signs Temp Pulse Pulse Pulse Resp BP Pulse Ox 01/06/22 09:00 95 H 01/06/22 08:00 36.7 C 92 H 20 138/102 H 97 01/06/22 05:26 01/06/22 03:43 36.6 C 102 H 11 L 130/109 H 95 01/06/22 01:33 94 H 01/05/22 23:50 36.7 C 96 H 16 132/101 H 96 Pulse Ox 01/06/22 09:00 01/06/22 08:00 01/06/22 05:26 97 01/06/22 03:43 01/06/22 01:33 01/05/22 23:50 PG Care Time/CCT Total # of Minutes Spent Total Time Spent with Patient: Total time spent is greater than 50% in coordination of care (as documented) at patient's floor/unit and/or counseling patient: Coding Level of Care Code 09749 Subseq Hosp Care Lvl 1 Diagnoses Small bowel obstruction K56.609 Gastroparesis K31.84
--- NOTE | 2022-01-06 12:11 | Hospitalist Progress Note ---
Date of Service January 06, 2022 Assessment & Plan (1) Nausea: (2) Abdominal pain: (3) Gastroparesis: Plan: Patient who has frequent hospitalizations for nausea, abdominal pain due to gastroparesis. Got Emend yesterday. Reports nausea abdominal pain is resolved today. Will start diet and advance as tolerated. Continue antiemetics as needed (4) Atrial fibrillation, chronic: (5) Tobacco abuse: (6) Numbness and tingling: Plan: Patient reported left-sided numbness. CT head reported acute to subacute subcentimeter right thalamic lacunar infarct. However, MRI brain reported that the lacunar infarct was not acute but chronic. Hence, patient has chronic right thalamic lacunar infarct. Patient started on atorvastatin CT angio head and neck reviewed. Limited echo reviewed. Did not show intracardiac clot. However, this noted EF of 30 to 35% [reduced from 45 to 50% a week ago], severe anterior wall, apical wall and septal wall hypokinesis, severely dilated LA and RA. Discussed findings with patient. Counseled patient extensively about need to quit smoking. She currently smokes 1 pack/day. Patient not interested in quitting. Patient to continue home Eliquis and Lasix. Continue home metoprolol Needs to follow-up with radio television technical director outpatient (7) Hypothyroidism: Plan: Continue levothyroxine. Plan to discharge tomorrow if tolerating diet well Admission and Anticipated Discharge Date Admission Date: January 05, 2022 Subjective 61-year-old female with past medical history significant for atrial fibrillation, tachybrady syndrome, status post pacemaker, history of hiatal hernia, status post gastric sleeve with subsequent development of gastroparesis, history of prolonged QT, COPD, chronic kidney disease stage III, history of anemia, hypothyroidism, generalized anxiety, history of chronic systolic CHF, history of COVID in August 2021, comes with nausea and abd discomfort. Also reported 1 day of left sided numbness on face and tingling/numbness on extremities Being managed for persistent nausea/heaves in a patient with gastroparesis. Patient seen and examined today. Patient reports nausea and abdominal pain has resolved. Also reports resolution of left-sided numbness. Denies any headache, dizziness Denies any chest pain, cough, shortness of breath Denies any dysuria, frequency, urgency Physical Exam Constitutional: + well hydrated; no acute distress Eyes: PERRL, conjunctivae normal, anicteric sclerae ENMT: external ear and nose normal, oropharynx normal Respiratory: normal respiratory effort, lungs clear to auscultation Cardiovascular: Rate/Rhythm: + irregularly irregular S1 S2 Gastrointestinal (Abdomen): normal bowel sounds, soft, nontender, no hepatosplenomegaly Musculoskeletal: no cyanosis or clubbing, extremities motor strength 5/5 Neurologic: PERRL, EOMI, accommodation nl, no face palsy, no dysarthria Psychiatric: A+Ox3, euthymic affect Results & Data Results & Data ([facility]) Vital Signs (Past 12 Hours) Vital Signs Temp Pulse Pulse Pulse Resp BP Pulse Ox 01/06/22 11:59 36.6 C 91 H 18 133/90 96 01/06/22 09:00 95 H 01/06/22 08:00 36.7 C 92 H 20 138/102 H 97 01/06/22 05:26 01/06/22 03:43 36.6 C 102 H 11 L 130/109 H 95 01/06/22 01:33 94 H Pulse Ox 01/06/22 11:59 01/06/22 09:00 01/06/22 08:00 01/06/22 05:26 97 01/06/22 03:43 01/06/22 01:33 Laboratory Results Abnormal lab results 01/06/22 01/06/22 Range/Units 08:46 08:46 MCH 24.6 L (25-34) pg MCHC 30.3 L (32-36) g/dL RDW Std Deviation 59.0 H (36.4-46.3) fL RDW Coeff of Ana M 20.6 H (11.5-14.5) % BUN/Creatinine Ratio 6.7 L (10-20) Glucose 119 H (70-99(Fasting)) mg/dl Triglycerides 189 H (0-150) mg/dl VLDL Cholesterol, Calc 38 H (0-30) mg/dl (1) Abdominal pain Abdominal location: epigastric Qualified Code(s): R10.13 - Epigastric pain
[2022-01-06] MEDS: PRENATAL VITAMIN 1 TAB PO SCH (21:10)
[2022-01-07] MEDS: LEVOTHYROXINE SODIUM 88 MCG TABLET PO SCH (05:47)
--- NOTE | 2022-01-07 06:35 | Electrocardiogram Report ---
Test Reason : Blood Pressure : / mmHG Vent. Rate : 092 BPM Atrial Rate : 122 BPM P-R Int : 000 ms QRS Dur : 108 ms QT Int : 408 ms P-R-T Axes : 000 -11 -40 degrees QTc Int : 504 ms Atrial fibrillation Incomplete right bundle branch block Prolonged QT Abnormal ECG When compared with ECG of 05-JAN-2022 00:51, No significant change was found Confirmed by Chinmay Russo ([id number]) on 01/07/2022 6:35:20 AM Referred By: REFERRED SELF Confirmed By:Chinmay Russo
[2022-01-07 07:08] LABS: Hematocrit (blood only) 37.9 % (37-47); Hemoglobin 11.5 g/dL (12.0-16.0); Mean Corpuscular Hemoglobin 24.3 pg (25-34); Mean Corpuscular Hgb Conc 30.3 g/dL (32-36); Mean Corpuscular Volume 80.1 fL (80-100); Mean Platelet Volume 9.9 fL (7.4-10.4); Platelet Count 279 K/uL (130-400); RDW Coefficient of Variation 20.1 % (11.5-14.5); Red Blood Count 4.73 M/uL (4.2-5.4); White Blood Count 5.75 K/uL (4.8-10.8)
[2022-01-07 07:29] LABS: BUN Creatinine Ratio 7.9 (10-20); Calcium 8.1 mg/dl (8.5-10.1); Creatinine Clr Calc Pharmacy 61.5 ml/min; Est GFR (African American) 68.6 ml/min; Est GFR (Non-African American) 59.2 ml/min; Potassium 3.5 mmol/L (3.5-5.1)
[2022-01-07] MEDS: METOPROLOL SUCC 50MG EXT REL TAB PO SCH (07:30)
[2022-01-07] MEDS: FERROUS SULFATE 325 MG TAB PO SCH (07:30)
[2022-01-07] MEDS: ATORVASTATIN 40 MG TAB PO SCH (07:30)
[2022-01-07] MEDS: APIXABAN 5 MG TABLET PO SCH (07:30)
[2022-01-07] MEDS: FUROSEMIDE 20 MG TAB PO SCH (07:31)
[2022-01-07] MEDS: POTASSIUM CHLORIDE 10 MEQ TABCR PO SCH (07:33)
[2022-01-07] MEDS: FAMOTIDINE 20 MG in SYRINGE 3 ML IV SCH (07:33)
[2022-01-07] MEDS ORDERED: HEPARIN 100 UNIT/ML 5ML FLUSH ONE (07:37)
--- NOTE | 2022-01-07 10:37 | Discharge Summary ---
Date of Service January 07, 2022 Admission HPI Per Admitting Provider A 61-year-old female with past medical history significant for atrial fibrillation, tachybrady syndrome, status post pacemaker, history of hiatal hernia, status post gastric sleeve with subsequent development of gastroparesis, history of prolonged QT, COPD, chronic kidney disease stage III, history of anemia, hypothyroidism, generalized anxiety, history of chronic systolic CHF, history of COVID in August 2021, comes with nausea, vomiting. The patient had multiple admissions for gastroparesis flare, was recently in the hospital. Was discharged a couple of days ago, comes back in with nausea and vomiting. She h as a lot of dry heaves, could not vomit, but a lot of abdominal pain. She says she had normal bowel movement yesterday. Denies any fever or chills. No chest pain, no headache. She complains of blurred vision in the left eye going on since 1 day and also left-sided numbness of the face and tingling and numbness in the extremities. It is going on since afternoon yesterday. She lives alone, ambulates okay. Family checks on her. No fevers, no cough, no runny nose, no sore throat. Normal bladder movements. No swelling in the legs. Admission Exam Per Admitting Provider GENERAL: The patient is of moderate build, not in acute distress. VITAL SIGNS: Temperature 36.9, pulse 116, respiratory rate 24, blood pressure 1 33/101, oxygen 96% on room air. HEENT: Pupils equal, round and reactive to light. Oral mucosa dry. NECK: No JVD, no neck masses. CARDIOVASCULAR: S1 and S2 heard. Tachycardia. No murmurs. RESPIRATORY SYSTEM: Normal AP diameter. No accessory muscle use. No wheezing, no crackles. ABDOMEN: Soft, bowel sounds sluggish. Diffuse abdominal discomfort present. No guarding, no rigidity. CENTRAL NERVOUS SYSTEM: Cranial nerves II-XII grossly intact, nonfocal. EXTREMITIES: No edema, no erythema. Principal Diagnosis Intractable nausea and abdominal pain Right thalamic lacunar infarct, old Discharge Exam Constitutional + well hydrated; no acute distress Eyes PERRL, conjunctivae normal, anicteric sclerae ENMT external ear and nose normal, oropharynx normal Respiratory normal respiratory effort, lungs clear to auscultation Cardiovascular Rate/Rhythm: + irregularly irregular S1 S2 Gastrointestinal (Abdomen) normal bowel sounds, soft, nontender, no hepatosplenomegaly Musculoskeletal no cyanosis or clubbing, extremities motor strength 5/5 Neurologic PERRL, EOMI, accommodation nl, no face palsy, no dysarthria Psychiatric A+Ox3, euthymic affect Discharge Data Allergies Allergy/AdvReac Type Severity Reaction Status Date / Time adhesive Allergy Mild POWERS SKIN Verified 01/05/22 03:05 capsaicin Allergy Mild ITCHINESS Verified 01/05/22 03:05 amoxicillin AdvReac Intermediate yeast Verified 01/05/22 03:05 infection scopolamine AdvReac Intermediate rash from Verified 01/05/22 03:05 patch NSAIDS (Non-Steroidal AdvReac Mild indegestion Verified 01/05/22 03:05 Anti-Inflamma rofecoxib AdvReac Mild indigestion Verified 01/05/22 03:05 Consultations 01/05/22 02:58 ED Decision to Admit Stat 01/05/22 08:00 Consult General Surgery Routine Consult Neurology Routine Ordered Studies 01/05/22 00:18 CT abd pelvis IV con only Stat Lung bases: The heart is enlarged and without pericardial effusion. Pacemaker leads are noted. The lung bases are clear noting bibasilar scarring/atelectasis. Liver: The contrast-enhanced liver is normal in size, contour, and attenuation. There is mild central intrahepatic biliary ductal dilatation. The hepatic veins and portal veins are patent. Gallbladder: Surgically absent noting clips in the gallbladder fossa. Spleen: Normal in size and attenuation. Pancreas: Moderately atrophic and grossly unremarkable. Adrenal glands: A 2.3 cm adenoma of the right adrenal gland is unchanged. The left adrenal gland is normal in appearance. Kidneys: The contrast enhanced kidneys demonstrate cortical atrophy and are without hydronephrosis. The kidneys enhance symmetrically. A 3 mm nonobstructing calculus is noted in the right kidney. Scattered subcentimeter cortical hypodensities likely represent cysts but are too small for definitive characterization. Abdominal vasculature: The abdominal aorta is normal in course and caliber. Stomach and bowel: There is a small hiatal hernia. Postoperative change is noted in the stomach with a gastric band in place. There are scattered colonic diverticula without CT evidence of acute diverticulitis. There is mild gaseous distention of the small bowel loops which measure up to 4.3 cm in diameter. No transition was identified and there is no evidence of high-grade obstruction. No thick walled bowel loops are identified. The appendix is well-visualized and normal. Peritoneum: There is no intraperitoneal free air or abdominal ascites. Lymphadenopathy: None. Pelvic viscera: The bladder is normal as visualized. The uterus is surgically absent. No adnexal lesion is seen. Skeletal structures: The skeletal structures are osteopenic. There is mild lumbosacral spondylosis. No lytic or blastic lesions are seen. IMPRESSION: 1. There is mild diffuse gaseous distention of the small bowel loops with no tr ansition point identified and no clear CT evidence of high-grade obstruction. A partial/developing small bowel obstruction is favored and clinical correlation will be required. 2. No thick walled bowel loops are identified. There is no intraperitoneal free air, abdominal ascites, or pneumatosis intestinalis. 3. Postoperative change involving the stomach is above. 4. Cardiomegaly. 5. Right-sided nephrolithiasis. 6. Additional findings as above. 01/05/22 03:55 CT head/brain wo con Urgent No acute intracranial hemorrhage, midline shift, intracranial mass, hydrocepha marco a, territorial ischemia or abnormal extra-axial collection. Mild white matter hypodensities suggest chronic microvascular ischemic disease. There is an ill- defined 7 mm hypodense focus of the right thalamus on image 14 series 2. The calvarium is intact. The paranasal sinuses, mastoid air cells, and middle ear cavities are clear. IMPRESSION: 1. No acute intracranial hemorrhage, midline shift or acute territorial infarct. 2. Acute versus subacute subcentimeter right thalamic lacunar infarct 01/05/22 11:12 CT angio head w con Urgent Vascular findings: There is normal enhancement within the internal carotid arteries bilaterally. There is normal enhancement noted within the anterior, middle and posterior cerebral arteries. However, there is mild atherosclerotic narrowing of the A1 segment of the right anterior cerebral artery. Nonvascular findings: There is homogeneous attenuation of the brain parenchyma bilaterally. There is no evidence for an acute infarct or cerebral edema. IMPRESSION: 1. Mild atherosclerotic narrowing of the A1 segment of the right anterior cerebral artery. 2. No evidence for focal stenosis or thrombosis. CT angio neck with con Urgent Vascular findings: Right common carotid artery: Patent without significant stenosis. Right internal carotid artery: Patent without significant stenosis. Right vertebral artery: Patent without significant stenosis. The right vertebral artery is mildly dominant when compared to the left. Left common carotid artery: Patent without significant stenosis. Left internal carotid artery: Patent without significant stenosis. Left vertebral artery: Patent without significant stenosis. Nonvascular findings: The parotid and submandibular salivary glands appear normal. There is no enlarged cervical adenopathy noted. The airway appears patent. The thyroid gland appears within normal limits. The lung apices appear within normal limits. Impression: Essentially negative CT angiogram of the neck with contrast. 01/05/22 12:33 MR brain wo/w con Stat Extra-axial space: There is no evidence for a subdural hematoma, There are no extra-axial fluid collections. Ventricles and cisterns: The ventricles are normal in size and configuration. There is no evidence for midline shift or mass effect. Parenchyma: On noncontrast images, there is no evidence for an acute hemorrhage or infarct. No acute diffusion abnormalities are noted on diffusion weighted imaging or ADC mapping. There is normal hedrick-white differentiation. The lacunar infarct seen on the right is old in nature. There is mild bright signal seen on FLAIR weighted sequences within the centrum semiovale and periventricular white matter characteristic of mild remote small vessel disease. The sulci and gyri appear normal without effacement. The midline structures are unremarkable. The posterior fossa structures appear normal. On postcontrast images, there is no evidence for enhancing mass lesion. Osseous structures: The paranasal sinuses are well aerated. The mastoid air cells are well aerated. Soft tissues: No focal soft tissue abnormalities are identified. IMPRESSION: 1. No acute intracranial abnormalities. 2. The lacunar infarct seen on the right is old by MRI. 3. There is evidence for mild small vessel disease. Hospital Course (1) Nausea: (2) Abdominal pain: (3) Gastroparesis: Patient who has frequent hospitalizations for nausea, abdominal pain due to gastroparesis. Presented with same symptoms Got IV antiemetics Symptoms resolved Tolerating diet well (4) Atrial fibrillation, chronic: (5) Tobacco abuse: (6) Numbness and tingling: Patient reported left-sided numbness. CT head reported acute to subacute subcentimeter right thalamic lacunar infarct. However, MRI brain reported that the lacunar infarct was not acute but chronic. Hence, patient has chronic right thalamic lacunar infarct. Patient started on atorvastatin CT angio head and neck reviewed. Limited echo reviewed. Did not show intracardiac clot. However, this noted EF of 30 to 35% [reduced from 45 to 50% a week ago], severe anterior wall, apical wall and septal wall hypokinesis, severely dilated LA and RA. Reports numbness is resolved Counseled patient extensively about need to quit smoking. She currently smokes 1 pack/day. Patient not interested in quitting. Patient to continue home Eliquis and Lasix. Continue home metoprolol Needs to follow-up with bean sorter outpatient (7) Hypothyroidism: Continue levothyroxine. Total Time Total Time Spent Total Time Spent (In Minutes): 40 Total Time Includes: Examination of the Patient, Discharge Planning and Medication Reconciliation Discharge Plan Discharge Items Patient Disposition: Home - Self-Care Reason For Visit: ABDOMINAL PAIN Discharge Diagnosis: Intractable nausea and abdominal pain Right thalamic lacunar infarct, old Activity: Resume your previous activity Non-emergency contact: Primary Care Provider Call non-emergency contact if: you have any medication questions Follow-up/Referrals: Jaleel Coppola MD [Primary Care Provider] - (Date & Time 01/11/2022 11:20 AM Provider Thom Kwon MD Department Family Medicine [facility] ) Diet: Heart Healthy Addtl Attending Provider Instructions: Ms Delarosa You came to the hospital complaining of nausea and abdominal pain. You also reported left sided numbness on your face. You got a CT scan and MRI which showed an old stroke. You were started on atorvastatin. Your symptoms are resolved. It is very important that you quit smoking as we discussed. Pending Studies at Discharge: No Stand-Alone Forms: My [facility], Smoking Cessation Medications and DC Order Prescriptions: New atorvastatin 40 mg Tablet 40 mg PO QAM 30 Days Qty: 30 RF: 0 Continued dicyclomine 10 mg capsule 10 mg PO BID PRN (Reason: Abdominal Discomfort) RF: 0 levothyroxine [Synthroid] 88 mcg tablet 88 mcg PO QAM Qty: 30 RF: 0 cyanocobalamin (vitamin B-12) [Vitamin B-12] 1,000 mcg Tablet 1,000 mcg PO DAILY RF: 0 vit-iron fum-folic ac 65 mg iron- 1 mg Tablet 1 tab PO HS RF: 0 Eliquis 5 mg tablet 5 mg PO BID RF: 0 promethazine 25 mg tablet 25 mg PO Q6H PRN (Reason: Nausea) 10 Days Qty: 30 RF: 0 metoprolol succinate [Toprol XL] 100 mg tablet extended release 24 hr 100 mg PO BID Qty: 60 RF: 0 omeprazole 20 mg capsule,delayed release(DR/EC) 20 mg PO AMHS RF: 0 aprepitant 80 mg capsule 80 mg PO WK PRN (Reason: Nausea) RF: 0 famotidine [Pepcid] 20 mg Tablet 20 mg PO BID RF: 0 ferrous sulfate 325 mg (65 mg iron) Tablet 325 mg PO DAILY RF: 0 furosemide 20 mg Tablet 20 mg PO QAM Qty: 30 RF: 0 potassium chloride 10 mEq Tablet,Er Particles/Crystals 10 meq PO DAILY Qty: 30 RF: 0 Discharge Orders: Discharge Order (Routine); Ordered 01/07/22 Ordered By: Keisha Beaver Admission Data Admit Date/Time: 01/05/22 03:55 Attending Provider: Keisha Beaver I. Admit Provider: Leandro Gusman Primary Care Provider: Jaleel Coppola Other Providers: Leandro Gusman ; Mik Martinez ; Mele Coyle ; Erna Segura ; Gely Bergman ; Dane Razo ; Fabricio Dwyer ; Karla Simpson ; Shanda Villafuerte ; Joaquin William Jr ; Jazmín Jarrell ; Eric Zaragoza ; Yuli Abreu ; Tiesha Palmer Other Interventions: Discharge Summary Assessment (RN) Last Done: 01/07/22 10:47
--- NOTE | 2022-01-07 11:55 | Electrocardiogram Report ---
Test Reason : Blood Pressure : / mmHG Vent. Rate : 093 BPM Atrial Rate : 064 BPM P-R Int : 000 ms QRS Dur : 110 ms QT Int : 420 ms P-R-T Axes : 000 -14 -49 degrees QTc Int : 522 ms Atrial fibrillation Incomplete right bundle branch block Prolonged QT Abnormal ECG When compared with ECG of 06-JAN-2022 06:23, (unconfirmed) No significant change was found Confirmed by Pedro Pablo Mendoza ([id number]) on 01/07/2022 11:55:31 AM Referred By: REFERRED SELF Confirmed By:Otto Mendoza
== END 2022-01-07 11:26 | disposition home or self-care (01) ==
LOC: ED 23:21 → INTOOBSV 01-05 03:55 → EDINP 01-05 03:55 → 2E 01-05 13:30